=== PATIENT | male | born 1965 | race Caucasian/White ===

== ENCOUNTER 2023-03-28 07:18 | Outpatient (OUT) | payer MEDICARE, MEDICAID, SELFPAY ==
--- NOTE | 2023-03-28 08:56 | CA_ITS ---
Patient: PAM TRAN Exam Date: 03/28/2023 : 1965 Gender:M Ordering : KRIS DENSON Admission #: [id number] Family : Order #: [id number] CLICK HERE TO VIEW EXAM ECHOCARDIOGRAM REPORT PROCEDURE: CA ECHO DOPPLER COMPLETE INDICATIONS: Chronic systolic heart failure COMPARISON: None. DESCRIPTION: COMPLETE ECHOCARDIOGRAM Real-time transthoracic echocardiography with 2D, M-mode, spectral and color flow Doppler performed. QUALITY: Technical quality was adequate. LEFT VENTRICLE: Normal chamber size. Mild concentric left ventricular hypertrophy. LV EF: Global left ventricular systolic function is normal. Visual estimation of left ventricular ejection fraction is 60% DIASTOLIC: Diastolic function is normal. ATRIAL SEPTUM: Inadequately seen. LEFT ATRIUM: Normal chamber size. RIGHT ATRIUM: Moderate dilatation. RIGHT VENTRICLE: Mild dilatation. Normal right ventricular systolic function. Pacer wire present. TRICUSPID VALVE: Normal mobility and thickness. No stenosis with mild regurgitation. No evidence of pulmonary hypertension. RVSP 29mmHg MITRAL VALVE: Mildly thickened with normal mobility. No evidence of mitral valve stenosis. Trivial mitral regurgitation. AORTIC VALVE: Normal trileaflet appearance. Mildly calcified aortic valve. Normal leaflet mobility. No evidence of aortic valve stenosis. No aortic regurgitation. AORTIC ROOT: Normal diameter and appearance. PULMONIC VALVE: Normal thickness and mobility. No stenosis. No regurgitation. PERICARDIUM: Anterior free space; trivial effusion versus fat pad. IVC: Collapses with inspirations. Normal size. CONCLUSION: 1. Global left ventricular systolic function is normal; visually estimated ejection fraction is 55 to 60% 2. Mild left ventricular hypertrophy 3. Diastolic function is normal 4. The right atrium is moderately dilated 5. Right ventricle appears mildly dilated with normal systolic function 6. Mild tricuspid regurgitation 7. Anterior free space; trivial effusion versus fat pad Adult Echocardiography Procedure Report Left Ventricle LVEDD (3.7 - 5.6 cm): 5.64 cm LVESD (2.2 - 4.0 cm): 3.82 cm LVIVS thickness (0.6 - 1.2 cm): 1.28 cm LVPW thickness (0.5 - 1.0 cm): 1.28 cm e': 0.16 m/s E - e': 7.24 LVOT Max Gradient: 4.97 mm[Hg] LVOT Area (cm2): 1.11 m/s Peak Velocity (LVOT): 1.11 m/s Mean Velocity (LVOT): 0.71 m/s LVOT Diameter 2.17 cm Left Atrium LA Volume Index (2D A2C): 25.60 ml/m2 Left Atrium Systolic Dimension: 3.17 cm Mitral Valve MV E to A Ratio: 1.85 Mitral Valve A-Wave Peak Velocity: 0.62 m/s Mitral Valve E-Wave Peak Velocity: 1.16 m/s Right Ventricle RV Internal Diastolic Dimension: 4.81 cm Aorta AO Root Diam: 3.16 cm Ascending Ao Diam: 2.78 cm Aortic Valve AoV Area ([place]): 2.53 cm2, 2.53 cm2 AoV Area (VTI): 2.38 cm2, 2.38 cm2 Peak Velocity(Antegrade Flow): 1.63 m/s Peak Gradient(Antegrade Flow): 10.57 mm[Hg] Mean Velocity(Antegrade Flow): 1.07 m/s Mean Gradient(Antegrade Flow): 5.40 mm[Hg] Velocity Time Integral: 31.72 cm Tricuspid Valve Peak Velocity (Regurgitant Flow): 2.42 m/s, 2.48 m/s, 2.54 m/s Pulmonic Valve Mean Gradient: 2.62 mm[Hg] Mean Velocity: 0.74 m/s Peak Velocity: 1.15 m/s, 1.24 m/s Peak Gradient: 6.16 mm[Hg], 5.31 mm[Hg] Right Atrium Right Atrium Systolic Pressure: 60.86 ml, 60.86 ml Dictated by: Kaiser Watson M.D. on 03/28/2023 at 12:58 Approved by: Kaiser Watson M.D. on 03/28/2023 at 13:02
== END 2023-03-28 07:19 | disposition home or self-care (01) ==
LOC: CARD 07:23
PROVIDERS: PCP Family Medicine; Visit Provider Internal Medicine Cardiovascular Disease
DX: I50.22 Chronic systolic (congestive) heart failure (principal); I07.1 Rheumatic tricuspid insufficiency
CPT/HCPCS: 93306

== ENCOUNTER 2023-12-17 14:00 | Outpatient (OUT) | payer MEDICARE, MEDICAID, SELFPAY ==
--- NOTE | 2023-12-17 14:06 | CA_ITS ---
Patient Name: PAM TRAN MR#: [id number] : 1965 Exam Date: 12/17/2023 Ordering Doctor: KRIS DENSON M.D. ECHOCARDIOGRAM REPORT PROCEDURE: CA ECHO DOPPLER COMPLETE INDICATIONS: Abnormal EKG COMPARISON: None. DESCRIPTION: COMPLETE ECHOCARDIOGRAM Real-time transthoracic echocardiography with 2D, M-mode, spectral and color flow Doppler performed. QUALITY: Technical quality was good. LEFT VENTRICLE: Normal chamber size. Mild to moderate concentric hypertrophy. Global left ventricular systolic function is normal. LV EF: Estimated left ventricular ejection fraction is 60% DIASTOLIC: Normal diastolic function. ATRIAL SEPTUM: LEFT ATRIUM: Normal chamber size. RIGHT ATRIUM: Mild dilatation. RIGHT VENTRICLE: Mild dilatation. Normal right ventricular systolic function. Pacer wire present. TRICUSPID VALVE: Normal mobility and thickness. No stenosis with trivial regurgitation. No evidence of pulmonary hypertension. RVSP 26 mmHg MITRAL VALVE: Normal mobility and thickness. No evidence of mitral valve stenosis. There is no mitral annular calcification. Trivial mitral regurgitation. AORTIC VALVE: Normal trileaflet appearance. Thickened aortic valve. Normal leaflet mobility. No evidence of aortic valve stenosis. No aortic regurgitation. AORTIC ROOT: Normal diameter and appearance. PULMONIC VALVE: Normal thickness and mobility. No stenosis. PERICARDIUM: No evidence of pericardial effusion. IVC: Collapses with inspirations. Normal size. PLEURA: CONCLUSION: 1. Mild to moderate concentric left ventricular hypertrophy with normal systolic function. LVEF is estimated at 60%. 2. Normal diastolic function. 3. Mild right ventricular dilatation with normal systolic function. 4. Mildly dilated right atrium. 5. No significant valvular dysfunction. 6. Normal right-sided pressures. Adult Echocardiography Procedure Report Left Ventricle LVEDD (3.7 - 5.6 cm): 5.15 cm LVESD (2.2 - 4.0 cm): 3.27 cm LVIVS thickness (0.6 - 1.2 cm): 1.24 cm LVPW thickness (0.5 - 1.0 cm): 1.46 cm e': 0.16 m/s E - e': 4.94 LVOT Max Gradient: 2.92 mm[Hg] LVOT Area (cm2): 0.85 m/s Peak Velocity (LVOT): 0.85 m/s Mean Velocity (LVOT): 0.58 m/s LVOT Diameter 1.97 cm Left Ventricular Ejection Fraction: 60 % Left Atrium LA Volume Index (2D A2C): 20.15 ml/m2 Left Atrium Systolic Dimension: 3.36 cm Mitral Valve MV E to A Ratio: 1.44 Mitral Valve A-Wave Peak Velocity: 0.55 m/s Mitral Valve E-Wave Peak Velocity: 0.80 m/s Right Ventricle RV Internal Diastolic Dimension: 4.69 cm Aorta AO Root Diam: 3.28 cm Ascending Ao Diam: 2.87 cm Aortic Valve AoV Area ([place]): 2.13 cm2, 2.13 cm2 AoV Area (VTI): 2.04 cm2, 2.04 cm2 Peak Velocity(Antegrade Flow): 1.22 m/s Peak Gradient(Antegrade Flow): 5.99 mm[Hg] Mean Velocity(Antegrade Flow): 0.83 m/s Mean Gradient(Antegrade Flow): 3.22 mm[Hg] Velocity Time Integral: 26.76 cm Tricuspid Valve Peak Velocity (Regurgitant Flow): 2.30 m/s, 2.38 m/s, 2.33 m/s Pulmonic Valve Mean Gradient: 1.99 mm[Hg], 2.43 mm[Hg] Mean Velocity: 0.66 m/s, 0.72 m/s Peak Velocity: 1.03 m/s Peak Gradient: 3.47 mm[Hg], 5.06 mm[Hg] Right Atrium Right Atrium Systolic Pressure: 102.74 ml, 102.74 ml Dictated by: James Tapia M.D. on 12/19/2023 at 13:07 Approved by: James Tapia M.D. on 12/19/2023 at 13:11
== END 2023-12-17 14:01 | disposition home or self-care (01) ==
LOC: CARD 14:00
PROVIDERS: PCP Family Medicine; Visit Provider Internal Medicine Cardiovascular Disease
DX: R94.31 Abnormal electrocardiogram [ECG] [EKG] (principal)
CPT/HCPCS: 93306

== ENCOUNTER 2024-04-21 10:18 | Outpatient (OUT) | payer MEDICARE, MEDICAID, SELFPAY ==
--- OUTSIDE RECORDS SUMMARY | 2024-04-21 10:24 | XMS_ITS | CCD ---
Author Organization [facility] Care Team Providers Care Inspector Finishing Name Role Phone PHYSICIAN, DEFAULT Unavailable Unavailable PHYSICIAN, DEFAULT Unavailable Unavailable ANJALI CELINA Unavailable Unavailable ANJALI, CELINA Unavailable Unavailable RC CROCKER Unavailable Unavailable RC CROCKER Unavailable Unavailable PHYSICIAN, DEFAULT Unavailable Unavailable PHYSICIAN, DEFAULT Unavailable Unavailable RC CROCKER Unavailable Unavailable Mitra Flores Unavailable MISC, DR WARD Attending Unavailable MISC, DR WARD Admitting Unavailable JUNIOR, LUISA Attending Unavailable JUNIOR, LUISA Consulting Unavailable JUNIORMODESTA MuroLUISA Admitting Unavailable DR RC CROCKER Primary Care Unavailable NADERER, DR RC Mcneal Primary Care Unavailable ALGHOTHANI, MOHAMAD Admitting Unavailable ALGHOTHANI, MOHAMAD Attending Unavailable ALGHOTHANI, MOHAMAD Consulting Unavailable ALGHOTHANI, MOHAMAD Admitting Unavailable ALGHOTHANI, MOHAMAD Attending Unavailable Roe Almaraz Unavailable MD Rc Crocker Primary Care Provider MD Roe Almaraz Attending Provider Angella Savage Unavailable Tiesha George Unavailable MD Rc Crocker Primary Care Provider [phone] MD Roe Almaraz Attending Provider MONICA George Attending Provider RC CROCKER Primary Care Unavailable SUSANA RUIZ Attending Unavailable SUSANA RUIZ Attending Unavailable SUSANA RUIZ Referring Unavailable RC CROCKER Primary Care Unavailable SUSANA RUIZ Attending Unavailable SUSANA RUIZ Referring Unavailable RC CROCKER Primary Care Unavailable SUSANA RUIZ Attending Unavailable SUSANA RUIZ Referring Unavailable RC CROCKER Primary Care Unavailable LASHON Mahan Attending Provider [phone] Roe Almaraz Admitting Unavailable Rc Crocker Primary Care Unavailable Roe Almaraz Attending Unavailable Zahida Mahan Attending Unavailable Zahida Mahan Admitting Unavailable Tiesha George Attending Unavailable Tiesha George Admitting Unavailable KENYATTA BALDERAS Attending Unavailable KRIS ARIZMENDI Attending Unavailable KRIS ARIZMENDI Attending Unavailable XAVIER ROLAND Attending Unavailable XAVIER ROLAND Attending Unavailable XAVIER ROLAND Attending Unavailable RC CROCKER Attending Unavailable Unavailable Unavailable Unavailable Allergies Allergy Classification Reported Allergen(s) Allergy Type Date of Onset Reaction(s) Facility (7 sources) Penicillins; Translations: [PENICILLINS] Drug allergy (disorder) 7 [facility], Fainting [facility] Repository (1 source) No Known Allergies; Translations: [No Known Allergies] Propensity to adverse reactions (disorder) [facility] Repository (8 sources) Penicillin G Drug Allergy 4 Unknown, Unknown Reaction [facility] (1 source) Penicillin Drug Allergy 2 [facility] (1 source) Allergies Reconciled Propensity to adverse reactions Unknown [facility] Other (1 source) Penicillin Drug Allergy 4 [facility] Repository (1 source) Penicillins Drug allergy (disorder) 4 [facility] Medications Current Medications Medication Drug Class(es) Dates Sig (Normalized) Sig (Original) acetaminophen 500 mg oral tablet (3 sources) Start: 06-04-2023 take 500 mg by mouth every six hours Acetaminophen Active 500 MG PO Q6H June 04, 2023 1:00am acetaminophen 325 mg / HYDROcodone bitartrate 5 mg oral tablet (10 sources) Opioid Agonist Start: 06-04-2023 take 1 tablet by mouth every six hours Hydrocodone-Acetami nophen ([place]) 5-325 mg Tablet Active 1 TAB PO Q6H June 04, 2023 1:00am Start: 07-19-2022 take 1 tablet by sheryl th four times daily as needed HYDROcodone-Acetaminophen 5-325 MG HYDROcodone-acetaminophen 5-325mg, 1 (one) Tablet four times daily, as needed # 60, 07/19/2022, No Refill. Active Oral four times daily, as needed for 15 Jul, Active Start: 01-07-2020 End: 06-04-2023 take 1 tablet by mouth every eight hours Hydrocodone-Acetaminophen ([place]) 5-325 mg tablet Discontinued 1 TAB PO Q8H 30 January 07, 2020 June 04, 2023 8:30am amiodarone hydrochloride 200 mg oral tablet (16 sources) Antiarrhythmic Start: 06-04-2022 Amiodarone HCl 200MG Amiodarone HCl( 200MG Oral 1 two times daily ) Active -Hx Entry Oral two times daily for 0 *Pick strength-form from [facility] Away for eRX* May, Active Start: 12-31-2019 take 200 mg by mouth once daily Amiodarone Active 200 MG PO Daily December 31, 2019 9:00am Start: 09-16-2019 End: 12-31-2019 take 200 mg by mouth twice daily Amiodarone Discontinued 200 MG PO Twice daily 60 September 16, 2019 1:00am December 31, 2019 9:00am apixaban 5 mg oral tablet (10 sources) Factor Xa Inhibitor Start: 06-04-2022 take 1 tablet by mouth twice daily Apixaban (Eliquis) 5 mg tablet Active 5 MG PO Twice daily June 04, 2023 1:00am Start: 09-16-2019 End: 10-20-2019 take 1 tablet by mouth twice daily Apixaban (Eliquis) 5 mg Tablet Discontinued 5 MG PO Twice daily 60 September 16, 2019 1:00am October 20, 2019 9:49am aspirin 81 mg delayed release oral tablet (12 sources) Platelet Aggregation Inhibitor, Nonsteroidal Anti-inflammatory Drug Start: 08-31-2019 take 1 tablet by mouth once daily Aspirin (Aspir-Low) 81 mg Tablet,Delayed Release (Dr/Ec) Active 81 MG PO Daily August 31, 2019 1:00am take 1 tablet by mouth once jacy y Aspir-Low 81 MG 1 tablet Orally Once a day for 30 day(s) Active atorvastatin 40 mg oral tablet (3 sources) HMG-CoA Reductase Inhibitor Start: 06-04-2023 take 40 mg by mouth once daily Atorvastatin Active 40 MG PO Daily June 04, 2023 1:00am Blood Glucose Test (3 sources) Start: 07-23-2022 Blood Glucose Test Blood Glucose Test , 3 Strip daily # 100, 07/23/2022, Ref. x11. Active miscellaneous daily for 0 Dx: DM II E11.29 Jul, Active ciprofloxacin 2 mg/ml otic solution (5 sources) Quinolone Antimicrobial Start: 01-05-2022 Ciprofloxacin HCl 0.2 % 1-2 drops into affected ear Otic every 12 hrs for 7 day(s) Dec, Active cyclobenzaprine hydrochloride 10 mg oral tablet (3 sources) Muscle Relaxant Start: 09-29-2019 take 1 tablet by mouth three times daily as needed Cyclobenzaprine HCl 10MG Cyclobenzaprine HCl 10MG, 1 (one) Tablet three times daily, as needed # 30, 09/29/2019, Ref. x1. Active Oral three times daily, as needed for 0 *Pick strength-form from Options Away for eRX* Sep, Active docusate sodium 100 mg oral tablet (3 sources) Start: 06-04-2023 take 100 mg by mouth once daily Docusate Sodium Active 100 MG PO Daily June 04, 2023 1:00am doxycycline hyclate 100 mg oral capsule (2 sources) Tetracycline-class Drug Start: 03-23-2024 take 100 mg by mouth twice daily Doxycycline Hyclate Active 100 MG PO Twice daily 03 05March 23, 2024 12:00am Start: 07-19-2023 take 1 tablet by sheryl th every twelve hours Doxycycline Hyclate 100 MG 1 tablet Orally Twice a day for 10 day(s) Jul, Active Ergocalciferol (7 sources) Provitamin D2 Compound Start: 06-04-2022 Ergocal ciferol 1.25 MG(64148 UT) Ergocalciferol( 1.25 MG(45078 UT) Oral 1 weekly ) Active -Hx Entry Oral weekly for 0 *Pick strength-form from Options Away for eRX* May, Active Start: 08-31-2019 End: 09-27-2019 take 1 tablet by mouth every week Ergocalciferol (Vitamin D2) Discontinued 1 TAB PO every week August 31, 2019 12:00am September 27, 2019 8:49am Start: 08-31-2019 End: 09-27-2019 take 1 tablet by mouth every week Ergocalciferol (Vitamin D2) Discontinued 1 TAB PO every week August 31, 2019 1:00am September 27, 2019 9:49am ferrous sulfate (7 sources) Start: 06-04-2022 Ferrous Sulfat e 324 (65 Fe)MG Ferrous Sulfate( 324 (65 Fe)MG Oral 1 daily ) Active -Hx Entry Oral daily for 0 *Pick strength-form from Options Away for eRX* May, Active Start: 09-16-2019 End: 09-27-2019 take 324 mg by mouth once daily Ferrous Sulfate Discontinued 324 MG PO Daily September 16, 2019 1:00am September 27, 2019 9:49am gabapentin 100 mg oral capsule (6 sources) Anti-epileptic Agent Start: 04-25-2022 take 100 mg by mouth once daily Gabapentin Active 100 MG PO Daily June 04, 2023 1:00am Insulin Nph And Regular Human (10 sources) Insulin Start: 08-31-2019 Insulin Nph An d Regular Human (Novolin 70-30 Flexpen U-100) 100 unit/mL (70-30) Insulin Pen Active 30 UNIT SUBCUT Every morning August 31, 2019 1:00am Start: 08-31-2019 Insulin Nph An d Regular Human (Novolin 70-30 Flexpen U-100) 100 unit/mL (70-30) Insulin Pen Active 30 UNIT SUBCUT Every morning August 31, 2019 12:00am Start: 08-31-2019 Insulin Nph An d Regular Human (Novolin 70-30 Flexpen U-100) 100 unit/mL (70-30) Insulin Pen Active 50 UNIT SUBCUT Twice daily August 31, 2019 1:00am NovoLIN 70/30 Re liOn (70-30) 100 UNIT/ML 30 units Subcutaneous once a day Active NovoLIN 70/30 Re liOn (70-30) 100 UNIT/ML 85 units Subcutaneous bid Active Iron (6 sources) Start: 06-04-2022 take 18 mg by mouth once daily Iron 18MG Iron( 18MG Oral daily ) Active -Hx Entry Oral daily for 0 *Pick strength-form from Options Away for eRX* May, Active Start: 08-31-2019 End: 09-27-2019 take 65 mg by mouth once daily Iron Discontinued 65 MG PO Daily August 31, 2019 12:00am September 27, 2019 8:49am Start: 08-31-2019 End: 09-27-2019 take 65 mg by mouth once daily Iron Discontinued 65 MG PO Daily August 31, 2019 1:00am September 27, 2019 9:49am midodrine hydrochloride 10 mg oral tablet (7 sources) alpha-Adrenergic Agonist Start: 06-04-2023 take 10 mg by mouth once daily Midodrine Active 10 MG PO Daily June 04, 2023 1:00am Midodrine HCl 5 MG USE DIRECTED ON DIALYSIS DAYS NEEDED FOR 14 DAYS for 14 Active NovoLIN 70/30 U-100 Insulin 100unit/mL (7 (2 sources) Start: 04-25-2022 NovoLIN 70/30 U-100 Insulin 100unit/mL (7 NovoLIN 70/30 U-100 Insulin 100unit/mL (7, 70 Unit two times daily # 2, 04/25/2022, Ref. x5. Active subcutaneous two times daily for 0 *Reorder from Options Away for eRx and Interaction Alerts* Apr, Active omeprazole 40 mg delayed release oral capsule (6 sources) Proton Pump Inhibitor Start: 07-05-2022 take 40 mg by mouth once daily Omeprazole Active 40 MG PO Daily June 04, 2023 1:00am 1 ml paricalcitol 0.005 mg/ml injection (3 sources) Vitamin D3 Analog Start: 06-04-2023 take 5 ug intravenously three times weekly Paricalcitol (Zemplar) 5 mcg/mL Solution Active 3 MCG IV 3 Times a week June 04, 2023 1:00am pioglitazone 30 mg oral tablet (20 sources) Peroxisome Proliferator Receptor alpha Agonist, Peroxisome Proliferator Receptor gamma Agonist, Thiazolidinedione Start: 08-31-2019 End: 08-31-2019 take 1 tablet by mouth once daily Pioglitazone (Actos) 30 mg Tablet Active 30 MG PO Daily August 31, 2019 1:00am take 1 tablet by sheryl th every twenty-four hours Pioglitazone HCl 15 MG 1 tablet Orally Once a day Active Precision Xtra Monitor (2 sources) Start: 06-12-2022 Precision Xtra Monitor Precision Xtra Monitor , 1 (one) each three times daily # 1, 06/12/2022, No Refill. Active miscellaneous three times daily for 0 29 May, 2022 Active sertraline 100 mg oral tablet (12 sources) Serotonin Reuptake Inhibitor Start: 07-16-2022 take 1 tablet by mouth once daily sertraline 100mg sertraline 100mg, 1 (one) Tablet daily # 30, 07/16/2022, Ref. x5. Active oral daily for 0 *Reorder from Options Away for eRx and Interaction Alerts* Jul, Active Start: 08-31-2019 take 100 mg by mouth once jacy y Sertraline Active 100 MG PO Daily August 31, 2019 1:00am sevelamer hydrochloride 800 mg oral tablet (4 sources) Phosphate Binder Start: 12-31-2019 take 1600 mg by mouth three times daily at mealtime Sevelamer Hcl Active 1600 MG PO THREE TIMES DAILY WITH MEALS December 31, 2019 12:00am Triamcinolone (2 sources) Corticosteroid Start: 06-19-2022 Triamcinolone Acetonide 0.5% triamcinolone acetonide 0.5%, 1 (one) application three times daily # 60, 06/19/2022, No Refill. Active topical three times daily for 0 *Pick strength-form from Options Away for eRX* Jun, Active Completed/Discontinued Medications Medication Drug Class(es) Dates Sig (Normalized) Sig (Original) amLODIPine 10 mg oral tablet (14 sources) Dihydropyridine Calcium Channel Mike Start: 10-27-2019 End: 06-04-2023 take 10 mg by mouth once daily Amlodipine Discontinued 10 MG PO Daily October 27, 2019 12:00am June 04, 2023 8:33am Start: 08-31-2019 End: 09-16-2019 take 10 mg by mouth once daily Amlodipine Discontinued 10 MG PO Daily August 31, 2019 1:00am September 16, 2019 2:25pm amoxicillin 875 mg / clavulanate 125 mg oral tablet (4 sources) Penicillin-class Antibacterial Start: 09-16-2019 End: 10-20-2019 take 1 tablet by mouth twice daily Amoxicillin-Pot Clavulanate (Augmentin) 875-125 mg tablet Discontinued 1 TAB PO Twice daily September 16, 2019 1:00am October 20, 2019 9:49am calcium acetate 667 mg oral capsule (10 sources) Start: 10-27-2019 End: 06-04-2023 take 2 capsules by mouth once daily Calcium Acetate(Phosphat Bind) Discontinued 2 CAP PO Daily October 27, 2019 12:00am June 04, 2023 8:33am take 2 tablets by mouth every ei ght hours Calcium Acetate 667 MG 2 tablets with meals Orally Three times a day Active clindamycin 0.01 mg/mg topical gel (4 sources) Lincosamide Antibacterial Start: 12-31-2019 End: 09-21-2021 Clindamycin Phosphate Discontinued 1 APPLIC TOPICAL .w/each dressing 60 December 31, 2019 12:00am September 21, 2021 12:26pm to be used w/dressing changes, bring to next appt furosemide 40 mg oral tablet (12 sources) Loop Diuretic Start: 08-31-2019 End: 06-04-2023 take 40 mg by mouth twice daily Furosemide Discontinued 40 MG PO Twice daily August 31, 2019 1:00am June 04, 2023 8:33am 24 hr isosorbide mononitrate 60 mg extended release oral tablet (12 sources) Nitrate Vasodilator Start: 08-31-2019 End: 06-04-2023 take 60 mg by mouth once daily Isosorbide Mononitrate Discontinued 60 MG PO Daily August 31, 2019 1:00am June 04, 2023 8:33am lisinopril 40 mg oral tablet (4 sources) Angiotensin Converting Enzyme Inhibitor Start: 08-31-2019 End: 08-31-2019 Lisinopril Discontinued TABLET August 31, 2019 1:00am August 31, 2019 7:02pm metoclopramide 10 mg oral tablet (3 sources) Dopamine-2 Receptor Antagonist Start: 06-04-2023 End: 03-23-2024 take 10 mg by mouth three times daily Metoclopramide Hcl Discontinued 10 MG PO Three times daily June 04, 2023 1:00am March 23, 2024 12:53pm 24 hr metoprolol succinate 25 mg extended release oral tablet (20 sources) beta-Adrenergic Mike Start: 06-04-2022 End: 03-23-2024 take 25 mg by mouth once daily Metoprolol Succinate Discontinued 25 MG PO Daily June 04, 2023 1:00am March 23, 2024 12:51pm Start: 11-19-2019 End: 11-19-2019 take 1 mg by mouth once daily Metoprolol Succinate Dis continued MG PO Daily November 19, 2019 6:39am November 19, 2019 6:39am Start: 11-19-2019 End: 06-04-2023 take 100 mg by mouth once daily Metoprolol Succinate Discontinued 100 MG PO Daily November 19, 2019 12:00am June 04, 2023 8:29am Start: 09-16-2019 End: 11-19-2019 take 25 mg by mouth once daily Metoprolol Succinate Di scontinued 25 MG PO Daily September 16, 2019 1:00am November 19, 2019 6:39am Start: 08-31-2019 End: 10-27-2019 take 100 mg by mouth once daily Metoprolol Succinate Discontinued 100 MG PO Daily August 31, 2019 1:00am October 27, 2019 10:56am Start: 11-07-2017 take 1 tablet by sheryl th once daily Metoprolol Succinate ER 100MG Metoprolol Succinate ER 100MG, 1 (one) Tablet daily # 90, 11/07/2017, Ref. x3. Active Oral daily for 0 *Pick strength-form from Options Away for eRX* Oct, Active nystatin 100 unt/mg topical powder (4 sources) Polyene Antifungal Start: 12-23-2019 End: 06-04-2023 Nystatin Discontinued 1 APPLIC TOPICAL Twice daily 60 14 December 23, 2019 12:00am June 04, 2023 8:33am apply to groin areas as discussed ondansetron 4 mg oral tablet (3 sources) Serotonin-3 Receptor Antagonist Start: 06-04-2023 End: 06-04-2023 take 1 tablet by mouth every eight hours Ondansetron Hcl (Zofran) 4 mg Tablet Discontinued 4 MG PO Q8H June 04, 2023 1:00am June 04, 2023 12:40pm promethazine hydrochloride 25 mg oral tablet (4 sources) Phenothiazine Start: 09-27-2019 End: 11-19-2019 take 25 mg by mouth every eight hours Promethazine Discontinued 25 MG PO Q8H September 27, 2019 12:00am November 19, 2019 6:39am simvastatin 40 mg oral tablet (12 sources) HMG-CoA Reductase Inhibitor Start: 01-09-2018 End: 11-21-2023 take 40 mg by mouth once daily Simvastatin Discontinued 40 MG PO Daily August 31, 2019 1:00am June 04, 2023 8:28am spironolactone 25 mg oral tablet (8 sources) Aldosterone Antagonist Start: 08-31-2019 End: 09-16-2019 Spironolactone Discontinued TABLET August 31, 2019 1:00am August 31, 2019 5:03pm sulfamethoxazole 800 mg / trimethoprim 160 mg oral tablet (4 sources) Dihydrofolate Reductase Inhibitor Antibacterial, Sulfonamide Antimicrobial Start: 12-08-2019 End: 12-31-2019 take 1 tablet by mouth every twelve hours Sulfamethoxazole-Tr imethoprim Discontinued 1 TAB PO Q12H 20 December 08, 2019 12:00am December 31, 2019 8:16am Problems Active Problems Problem Classification Problem Date Documented Date Episodic/Chronic Acute and unspecified renal failure (8 sources) Injury of kidney; Translations: [Acute kidney failure, unspecified] 09-01-2019 Episodic Allergic reactions (5 sources) Inflammatory dermatosis; Translations: [Dermatitis, unspecified] 03-23-2024 Episodic Cardiac dysrhythmias (13 sources) Paroxysmal atrial fibrillation; Translations: [Paroxysmal atrial fibrillation] Onset: 2 Chronic Chronic kidney disease (20 sources) Chronic kidney disease, unspecified; Translations: [Chronic kidney disease stage 4] Onset: 7 09-27-2019 Chronic Complication of device; implant or graft (6 sources) Mechanical complication of arteriovenous surgical fistula; Translations: [Other mechanical complication of surgically created arteriovenous fistula, initial encounter] 09-21-2021 Episodic Complications of surgical procedures or medical care (4 sources) Non-healing surgical wound; Translations: [Other complications of procedures, not elsewhere classified, initial encounter] 01-29-2020 Episodic Conduction disorders (1 source) Presence of cardiac pacemaker; Translations: [PRESENCE OF CARDIAC PACEMAKER] Onset: 7 Chronic Congestive heart failure; nonhypertensive (10 sources) Heart failure, unspecified; Translations: [Chronic systolic (congestive) heart failure] Onset: 7 Chronic Coronary atherosclerosis and other heart disease (6 sources) Atherosclerotic heart disease of [place] coronary artery without angina pectoris; Translations: [Atherosclerosis of coronary artery without angina pectoris] Onset: 7 Chronic Deficiency and other anemia (8 sources) Iron deficiency anemia; Translations: [Iron deficiency anemia, unspecified] 03-23-2024 Episodic Diabetes mellitus with complications (17 sources) Type 2 diabetes mellitus with diabetic chronic kidney disease; Translations: [Type 2 diabetes mellitus] Onset: 7 09-07-2019 Chronic Diabetes mellitus without complication (4 sources) Type 2 diabetes mellitus; Translations: [Type 2 diabetes mellitus without complications] 10-20-2019 Chronic Diseases of white blood cells (4 sources) Leukocytosis; Translations: [Elevated white blood cell count, unspecified] 09-06-2019 Chronic Disorders of lipid metabolism (8 sources) Hyperlipidemia, unspecified; Translations: [Hyperlipidemia] Onset: 7 03-23-2024 Chronic Esophageal disorders (5 sources) Gastroesophageal reflux disease without esophagitis; Translations: [Gastro-esophageal reflux disease without esophagitis] 03-23-2024 Chronic Essential hypertension (9 sources) Hypertensive disorder; Translations: [Essential (primary) hypertension] Onset: 3 09-07-2019 Chronic Fever of unknown origin (1 source) Fever, unspecified; Translations: [Fever, unspecified] Onset: 4 Episodic Fluid and electrolyte disorders (12 sources) Dialysis disequilibrium syndrome; Translations: [Other disorders of electrolyte and fluid balance, not elsewhere classified] 01-15-2020 Episodic Gout and other crystal arthropathies (6 sources) 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; Translations: [Chronic gout due to renal impairment, unspecified site, without tophus (tophi)] Chronic Hypertension with complications and secondary hypertension (17 sources) Hypertensive heart and chronic kidney disease with heart failure and stage 1 through stage 4 chronic kidney disease, or unspecified chronic kidney disease; Translations: [Hypertensive renal disease] Onset: 7 09-07-2019 Chronic Inflammatory conditions of male genital organs (3 sources) Inflammation of scrotum; Translations: [Inflammatory disorders of scrotum] Episodic Malaise and fatigue (2 sources) Other fatigue; Translations: [Weakness] Onset: 7 Episodic Mood disorders (5 sources) Moderate recurrent major depression; Translations: [Major depressive disorder, recurrent, moderate] 03-23-2024 Chronic Nausea and vomiting (7 sources) Nausea and vomiting; Translations: [Nausea with vomiting, unspecified] Onset: 4 09-27-2019 Episodic Other aftercare (5 sources) Long-term current use of drug therapy; Translations: [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] 03-23-2024 Episodic Other aftercare (1 source) Encounter for surgical aftercare following surgery on the circulatory system Episodic Other circulatory disease (4 sources) History of hypotension; Translations: [Personal history of other diseases of the circulatory system] 01-15-2020 Episodic Other connective tissue disease (4 sources) Thigh pain; Translations: [Pain in left thigh] 09-05-2019 Episodic Other diseases of kidney and ureters (8 sources) Secondary hyperparathyroidism; Translations: [Secondary hyperparathyroidism of renal origin] 03-23-2024 Chronic Other gastrointestinal disorders (7 sources) Diarrhea; Translations: [Diarrhea, unspecified] 09-04-2019 Episodic Other injuries and conditions due to external causes (3 sources) History of fall; Translations: [History of falling] Episodic Other non-traumatic joint disorders (2 sources) Joint pain; Translations: [Pain in unspecified joint] 03-23-2024 Episodic Other nutritional; endocrine; and metabolic disorders (1 source) Obesity, unspecified; Translations: [OBESITY, UNSPECIFIED] Onset: 7 Chronic Other nutritional; endocrine; and metabolic disorders (4 sources) Obesity; Translations: [Obesity, unspecified] 12-23-2019 Chronic Other nutritional; endocrine; and metabolic disorders (5 sources) Morbid obesity; Translations: [Morbid (severe) obesity due to excess calories] 03-23-2024 Chronic Residual codes; unclassified (5 sources) Obstructive sleep apnea syndrome; Translations: [Obstructive sleep apnea (adult) (pediatric)] 03-23-2024 Chronic Skin and subcutaneous tissue infections (18 sources) Abscess of scalp; Translations: [Cutaneous abscess of head [any part, except face]] Onset: 4 09-04-2019 Episodic Spondylosis; intervertebral disc disorders; other back problems (3 sources) Sciatica; Translations: [Lumbago with sciatica, left side] Episodic Unclassified (1 source) Obstructive sleep apnea (adult) (pediatric); Translations: [OBSTRUCTIVE SLEEP APNEA (ADULT) (PEDIATRIC)] Onset: 7 Chronic Unclassified (1 source) 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; Translations: [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 HYPOGLYCEMIC DRUGS] Onset: 7 Unclassified (2 sources) Unknown / UNK(Unknown) Onset: 7 Unclassified (1 source) Atrial fibrillation and flutter ; Translations: [Atrial fibrillation/flutter] 09-12-2019 Unclassified (1 source) Cellulitis of umbilicus; Translations: [Cellulitis of umbilicus] Onset: 4 Unclassified (1 source) Other mechanical complication of surgically created arteriovenous fistula, initial encounter; Translations: [Other mechanical complication of surgically created arteriovenous fistula, initial encounter] Onset: 3 Past or Other Problems Problem Classification Problem Date Documented Date Episodic/Chronic Nonspecific chest pain (1 source) Chest pain, unspecified; Translations: [CHEST PAIN, UNSPECIFIED] Onset: 06-04-2017 Episodic Open wounds of head; neck; and trunk (1 source) Laceration without foreign body of left ear, initial encounter Onset: 01-05-2022 Resolved: 01-05-2022 Episodic Other aftercare (2 sources) group home (current) use of aspirin; Translations: [group home (current) use of insulin] Onset: 06-04-2017 Episodic Other aftercare (2 sources) Encounter for therapeutic drug level monitoring; Translations: [Encounter for therapeutic drug level monitoring] Onset: 06-13-2023 Episodic Other aftercare (2 sources) Other usp (current) drug therapy; Translations: [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] Onset: 06-13-2023 Episodic Other circulatory disease (2 sources) Orthostatic hypotension; Translations: [Orthostatic hypotension] Onset: 06-13-2023 Episodic Other lower respiratory disease (1 source) Shortness of breath; Translations: [SHORTNESS OF BREATH] Onset: 06-04-2017 Episodic Unclassified (5 sources) Abnormal result of other cardiovascular function study; Translations: [Abnormal findings on diagnostic imaging of heart and coronary circulation] Onset: 06-04-2017 Episodic Results Test Name Value Interpretation Reference Range Facility Office Visiton 03-31-2024 Follow-up visit [id number] Juanpablo Tran 1965 M Date Provider Department Center 03/31/2024 Anselmo8-[facility]IS [facility] Family History Problem Relation Age of Onset Breast cancer Mother Lung cancer Father Family Status - Relation Status Age at Mother Father Level of Service:71871 NE OFFICE/OUTPATIENT ESTABLISHED LOW MDM 20 MIN Normal [facility] Aerobic Cultureon 03-23-2024 Aerobic Culture SOURCE: UMBILICUS Heavy Normal Skin Estela 2 Days SOURCE: UMBILICUS Anaerobic Culture Results Heavy Mixed Anaerobic Estela 3 Days SOURCE: UMBILICUS Gram Stain Result 4+ Gram Positive Cocci 4+ Gram Positive Bacilli 2+ White Blood Cells PERFORMED BY: [place] [address] PATHOLOGIST BOILER WELDER DAVID CORTEZ M.D. [facility] Comment on above: Performed By: #### A BEKA, [place] #### [address] Gram Stainon 03-23-2024 Microscopic observation Gram stain Nom (Unsp spec) SOURCE: UMBILICUS Gram Stain Result 4+ Gram Positive Cocci 4+ Gram Positive Bacilli 2+ White Blood Cells PERFORMED BY: [place] [address] PATHOLOGIST BOILER WELDER DAVID CORTEZ M.D. Normal [facility] Comment on above: Performed By: #### A BEKA, GS #### [address] Office Visiton 11-29-2023 Follow-up visit [id number] Juanpablo Tran L 1965 M Date Provider Department Center 11/29/2023 KRIS ROCHA LIZZETTE [place] Family History Problem Relation Age of Onset Breast cancer Mother Lung cancer Father Family Status - Relation Status Age at Mother Father Level of Service:98283 NE OFFICE/OUTPATIENT ESTABLISHED LOW MDM 20 MIN Normal [facility] Orders Onlyon 11-29-2023 Orders Only [id number] Juanpablo Tran L 1965 M Date Provider Department Center 11/29/2023 STAN DAVIS LIZZETTE Gaspar Family History Problem Relation Age of Onset Breast cancer Mother Lung cancer Father Family Status - Relation Status Age at Mother Father Normal [facility] BLOOD CULTUREon 07-23-2023 Bacteria identified Aer cx Nom (Bld) SPECIMEN NOTES SUBOPTIMAL VOLUME OF BLOOD COLLECTED, RESULTS MAY BE AFFECTED. CULTURE RESULTS NO GROWTH 5 DAYS Normal [facility] Comment on above: Performed By: #### 1 4979-9, PINR, CBCA, 46766-4, 94275-9, 3040-3, 79943-5, CMP #### [facility] ([id number]) [address] [place] [address] 63770 Bacteria identified Aer cx Nom (Bld) CULTURE RESULTS NO GROWTH 5 DAYS Normal [facility] CBC AND AUTO DIFFon 07-23-19 24 ABSOLUTE BASOPHIL 0.1 X10E9/L Normal 0.0-0.2 [facility] Comment on above: Performed By: #### 1 4979-9, PINR, CBCA, 48485-6, 83644-7, 3040-3, 50044-4, CMP #### [facility] ([id number]) [address] [place] [address] [place] [address] ABSOLUTE NEUTROPHIL 10.3 X10E9/L High 1.5-6.6 [facility] Comment on above: Performed By: #### 1 4979-9, PINR, CBCA, 59209-4, 67883-9, 3040-3, 99038-2, CMP #### [facility] ([id number]) [address] [place] [address] 25196 Basophils/100 WBC (Bld) 0.5 % Normal [facility] Comment on above: Performed By: #### 1 4979-9, PINR, CBCA, 95097-0, 29275-0, 3040-3, 47676-7, CMP #### [facility] ([id number]) [address] [place] [address] 29188 Eosinophils (Bld) [#/Vol] 0.0 10*3/uL Normal 0.0-0.[address] [facility] Comment on above: Performed By: #### 1 4979-9, PINR, CBCA, 81834-9, 38396-0, 3040-3, 32822-6, CMP #### [facility] ([id number]) [address] [place] [address] 52530 Eosinophils/100 WBC (Bld) 0.1 % Normal [facility] Comment on above: Performed By: #### 1 4979-9, PINR, CBCA, 56608-6, 23041-6, 3040-3, 99225-6, CMP #### [facility] ([id number]) [address] [place] [address] 62445 Erythrocyte distribution width (RBC) [Ratio] 14.3 % Normal 11.5-15.[address] [facility] Comment on above: Performed By: #### 1 4979-9, PINR, CBCA, 35338-8, 22033-6, 3040-3, 26914-7, CMP #### [facility] ([id number]) [address] [place] [address] 14035 Hematocrit (Bld) [Volume fraction] 31.1 % Low 39-[address] [facility] Comment on above: Performed By: #### 1 4979-9, PINR, CBCA, 95186-4, 76193-4, 3040-3, 84365-5, CMP #### [facility] ([id number]) [address] [place] [address] 91265 Hemoglobin (Bld) [Mass/Vol] 10.3 g/dL Low 13.0-17.[address] [facility] Comment on above: Performed By: #### 1 4979-9, PINR, CBCA, 16408-9, 51544-0, 3040-3, 29672-3, CMP #### [facility] ([id number]) [address] [place] [address] 18244 Lymphocytes (Bld) [#/Vol] 0.4 10*3/uL Low 1.0-3.[address] [facility] Comment on above: Performed By: #### 1 4979-9, PINR, CBCA, 27388-1, 26362-3, 3040-3, 84512-6, CMP #### [facility] ([id number]) [address] [place] [address] 71274 Lymphocytes/100 WBC (Bld) 3.8 % Normal [facility] Comment on above: Performed By: #### 1 4979-9, PINR, CBCA, 01041-7, 17880-5, 3040-3, 41928-1, CMP #### [facility] ([id number]) [address] [place] [address] 13197 MCH (RBC) [Entitic mass] 33.2 pg Normal 27-[address] [facility] Comment on above: Performed By: #### 1 4979-9, PINR, CBCA, 18325-0, 32077-7, 3040-3, 39659-5, CMP #### [facility] ([id number]) [address] [place] [address] 30919 MCHC (RBC) [Mass/Vol] 33.2 g/dL Normal 32-36 [facility] Comment on above: Performed By: #### 1 4979-9, PINR, CBCA, 42785-1, 62030-6, 3040-3, 48134-1, CMP #### [facility] ([id number]) [address] [place] [address] 81920 MCV (RBC) [Entitic vol] 100 fL Normal 80-[address] [facility] Comment on above: Performed By: #### 1 4979-9, PINR, CBCA, 18862-5, 35717-6, 3040-3, 78636-2, CMP #### [facility] ([id number]) [address] [place] [address] 36925 Monocytes (Bld) [#/Vol] 0.8 10*3/uL Normal 0-0.[address] [facility] Comment on above: Performed By: #### 1 4979-9, PINR, CBCA, 24572-6, 54937-2, 3040-3, 46309-8, CMP #### [facility] ([id number]) [address] [place] [address] 10125 Monocytes/100 WBC (Bld) 6.5 % Normal [facility] Comment on above: Performed By: #### 1 4979-9, PINR, CBCA, 61141-0, 28520-6, 3040-3, 71200-2, CMP #### [facility] ([id number]) [address] [place] [address] 84682 Neutrophils/100 WBC (Bld) 89.1 % Normal [facility] Comment on above: Performed By: #### 1 4979-9, PINR, CBCA, 31133-9, 49189-5, 3040-3, 44975-0, CMP #### [facility] ([id number]) [address] [place] [address] 74888 Platelet mean volume (Bld) [Entitic vol] 10.7 fL Normal 7-[address] [facility] Comment on above: Performed By: #### 1 4979-9, PINR, CBCA, 53232-2, 58312-1, 3040-3, 76398-4, CMP #### [facility] ([id number]) [address] [place] [address] 65475 Platelets (Bld) [#/Vol] 129 10*3/uL Low 150-[address] [facility] Comment on above: Performed By: #### 1 4979-9, PINR, CBCA, 63058-4, 11809-5, 3040-3, 87542-1, CMP #### [facility] ([id number]) [address] [place] [address] 24153 RBC COUNT 3.10 X10E12/L Low 4.10-5.[address] [facility] Comment on above: Performed By: #### 1 4979-9, PINR, CBCA, 01370-8, 92703-7, 3040-3, 32392-6, CMP #### [facility] ([id number]) [address] [place] [address] 70938 WBC (Bld) [#/Vol] 11.6 10*3/uL High 4.0-11.0 [facility] Comment on above: Performed By: #### 1 4979-9, PINR, CBCA, 53139-7, 93118-2, 3040-3, 10232-4, CMP #### [facility] ([id number]) [address] [place] [address] 47096 COMPREHENSIVE METABOLIC PANE Nick 07-23-2023 Albumin [Mass/Vol] 3.7 g/dL Normal 3.2-5.3 [facility] Comment on above: Performed By: #### 1 4979-9, PINR, CBCA, 41613-0, 05514-3, 3040-3, 90318-2, CMP #### [facility] ([id number]) [address] [place] [address] 76681 ALP [Catalytic activity/Vol] 66 U/L Normal 39-[address] [facility] Comment on above: Performed By: #### 1 4979-9, PINR, CBCA, 39848-8, 13517-5, 3040-3, 45087-4, CMP #### [facility] ([id number]) [address] [place] [address] 20011 ALT [Catalytic activity/Vol] 23 U/L Normal 0-[address] [facility] Comment on above: Performed By: #### 1 4979-9, PINR, CBCA, 65164-8, 89530-2, 3040-3, 64774-0, CMP #### [facility] ([id number]) [address] [place] [address] 54882 Anion gap [Moles/Vol] 13 mmol/L Normal 5-15 [facility] Comment on above: Performed By: #### 1 4979-9, PINR, CBCA, 03521-9, 76650-2, 3040-3, 66188-1, CMP #### [facility] ([id number]) [address] [place] [address] 18020 AST [Catalytic activity/Vol] 31 U/L Normal 0-[address] [facility] Comment on above: Performed By: #### 1 4979-9, PINR, CBCA, 49401-8, 55993-6, 3040-3, 33660-0, CMP #### [facility] ([id number]) [address] [place] [address] 29259 Bilirubin [Mass/Vol] 1.0 mg/dL Normal 0.3-1.2 [facility] Comment on above: Performed By: #### 1 4979-9, PINR, CBCA, 26725-8, 54466-1, 3040-3, 69684-9, CMP #### [facility] ([id number]) [address] [place] [address] 49175 Calcium [Mass/Vol] 9.0 mg/dL Normal 8.5-10.5 [facility] Comment on above: Performed By: #### 1 4979-9, PINR, CBCA, 20500-9, 27662-6, 3040-3, 59923-8, CMP #### [facility] ([id number]) [address] [place] [address] 76943 Chloride [Moles/Vol] 91 mmol/L Low 98-109 [facility] Comment on above: Performed By: #### 1 4979-9, PINR, CBCA, 66371-5, 01878-2, 3040-3, 44864-5, CMP #### [facility] ([id number]) [address] [place] [address] 04250 CO2 [Moles/Vol] 28 mmol/L Normal 22-[address] [facility] Comment on above: Performed By: #### 1 4979-9, PINR, CBCA, 12270-4, 75492-4, 3040-3, 45967-4, CMP #### [facility] ([id number]) [address] [place] [address] 24153 Creatinine [Mass/Vol] 6.47 mg/dL High 0.70-1.20 [facility] Comment on above: Result Comment: METH OD TRACEABLE TO IDMS STANDARD Performed By: #### 1 4979-9, PINR, CBCA, 78023-9, 56263-4, 3040-3, 74451-6, CMP #### [facility] ([id number]) [address] [place] [address] 23497 GFR/1.73 sq M.predicted among non-blacks MDRD (S/P/Bld) [Vol rate/Area] 9 mL/min/{1.73_m2} Low >[address] [facility] Comment on above: Result Comment: Reported eGFR is based on the CKD-EPI 2020 equation that does not use a race coefficient. Performed By: #### 1 4979-9, PINR, CBCA, 16100-4, 47076-4, 3040-3, 95798-1, CMP #### [facility] ([id number]) [address] [place] [address] 94621 Glucose [Mass/Vol] 239 mg/dL High 65-99 [facility] Comment on above: Performed By: #### 1 4979-9, PINR, CBCA, 45579-3, 25437-0, 3040-3, 64829-3, CMP #### [facility] ([id number]) [address] [place] [address] 25592 Potassium [Moles/Vol] 4.0 mmol/L Normal 3.5-5.0 [facility] Comment on above: Performed By: #### 1 4979-9, PINR, CBCA, 94534-9, 18932-7, 3040-3, 54849-2, CMP #### [facility] ([id number]) [address] [place] [address] 05395 Protein [Mass/Vol] 7.9 g/dL Normal 6.0-8.0 [facility] Comment on above: Performed By: #### 1 4979-9, PINR, CBCA, 51219-2, 74050-1, 3040-3, 69718-8, CMP #### [facility] ([id number]) [address] [place] [address] 32796 Sodium [Moles/Vol] 132 mmol/L Low 134-146 [facility] Comment on above: Performed By: #### 1 4979-9, PINR, CBCA, 61176-2, 66559-5, 3040-3, 35306-6, CMP #### [facility] ([id number]) [address] [place] [address] 59495 Urea nitrogen [Mass/Vol] 34 mg/dL High 5-[address] 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 All CT scans at this facility use dose modulation, iterative reconstruction, and/or weight based dosing when appropriate to reduce radiation dose to as low as reasonably achievable. COMPARISON: CT dated 07/31/2022 FINDINGS: Multiple gallstones. Given the lack of intravenous contrast, no gross abnormality seen in the liver, spleen, adrenal glands, or pancreas. No free fluid or dilated bowel loops. The kidneys are atrophic. No hydronephrosis. Small umbilical hernia containing fat. Diffuse vascular calcifications. IMPRESSION: * Multiple gallstones. * Diffuse vascular calcifications. * Small umbilical hernia containing fat. * No CT findings to explain acute nonlocalized abdominal pain. Finalized by Elizabeth Vann MD on 07/23/2023 2:28 PM Normal [facility] LIPASEon 07-23-2023 Lipase [Catalytic activity/Vol] 30 U/L Normal 17-[address] [facility] Comment on above: Performed By: #### 1 4979-9, PINR, CBCA, 12486-2, 26516-4, 3040-3, 14908-5, CMP #### [facility] ([id number]) [address] [place] [address] 09564 Lactate (P jose) [Moles/Vol]o n 07-23-2023 Lactate [Moles/Vol] 1.2 mmol/L Normal 0.4-2.0 [facility] Comment on above: Performed By: #### 1 4979-9, PINR, CBCA, 83313-0, 46430-1, 3040-3, 27163-5, CMP #### [facility] ([id number]) [address] [place] [address] 09646 LACTATE W/REFLEX 2.1 mmol/L High 0.4-2.0 [facility] Comment on above: Performed By: #### 1 4979-9, PINR, CBCA, 75977-7, 81250-0, 3040-3, 67459-7, CMP #### [facility] ([id number]) [address] [place] [address] 34347 MAGNESIUMon 07-23-2023 Magnesium [Mass/Vol] 1.6 mg/dL Low 1.8-2.6 [facility] Comment on above: Performed By: #### 1 4979-9, PINR, CBCA, 11601-3, 34347-2, 3040-3, 36902-0, CMP #### [facility] ([id number]) [address] [place] [address], [place] [address] PROTIME AND INRon 07-23-2023 INR Coag (PPP) [Relative time] 1.6 {INR} High 0.8-1.[address] [facility] Comment on above: Performed By: #### 1 4979-9, PINR, CBCA, 23099-5, 25893-3, 3040-3, 24864-8, CMP #### [facility] ([id number]) [address] [place] [address], [place] [address] PT Coag (PPP) [Time] 18.8 s High 9.8-13.2 [facility] Comment on above: Result Comment: NEW REFERENCE RANGE Performed By: #### 1 4979-9, PINR, CBCA, 92943-8, 99733-5, 3040-3, 38854-0, CMP #### [facility] ([id number]) [address] [place] [address] 80938 SARS/FLU A+B/RSV by NAAT/Mol ecularon 07-23-2023 SARS/FLU A+B/RSV by NAAT/Molecular FLU A PCR Negative (qualifier value) FLU B PCR Negative (qualifier value) RSV by PCR Negative (qualifier value) SARS CoV 2 Not detected (qualifier value) NOTE The Xpert Xpress SARS-CoV-2/Flu/RSV Plus test is a rapid, multiplexed real-time RT-PCR test intended for the simultaneous qualitative detection and differentiation of SARS-CoV-2, influenza A, influenza B and respiratory syncytial virus (RSV) viral RNA from individuals suspected of respiratory viral infection consistent with COVID-19 by their healthcare provider. This test has not been validated in asymptomatic patients. The Xpert Xpress SARS-CoV-2 test is intended for use by qualified and trained operators who are performing tests using either GeneXpert DX or GeneXPathDrugomics systems and is limited to laboratories that meet the CLIA requirements to perform high and moderate complexity tests. The Xpert Xpress SARS-CoV-2/Flu/RSV Plus is only for use under the Food and Drug Administration's Emergency Use Authorization. Results are for the simultaneous detection and differentiation of SARS-CoV-2, influenza A, influenza B and RSV nucleic acids in clinical specimens. SARS-CoV-2, influenza A, influenza B and RSV RNA identified by this test are generally detectable in upper respiratory samples during the acute phase of infection. Positive results are indicative of the presence of the identified virus, but do not rule out bacterial infection or co-infection with other pathogens not detected by this test. Clinical correlation with patient history and other diagnostic information is necessary to determine patient infection status. The agent detected may not be the definite cause of disease. Negative results do not preclude SARS-CoV-2, influenza A, influenza B and RSV infection and should not be used as the sole basis for treatment or other patient management decisions. Negative results must be combined with clinical observations, patient history and epidemiological information. An Invalid result may occur with specimen-associated inhibition unable to be resolved with specimen repeat. Fact Sheet for Healthcare Providers: https://www.fda.gov/media/ 2162/download Fact Sheet for Patients: https://www.fda.gov/media/2165/download Normal [facility] Comment on above: Performed By: #### C OVFLR #### [facility] ([id number]) [address] [place] [address] 92412 TROPONIN Ion 07-23-2023 Troponin I.cardiac [Mass/Vol] 0.03 ng/mL Normal 0.00-0.[address] [facility] Comment on above: Performed By: #### 1 4979-9, PINR, CBCA, 55381-0, 60371-7, 3040-3, 57719-4, CMP #### [facility] ([id number]) [address] [place] [address] 49914 US ABDOMEN LMTDon 07-23-2023 US ABDOMEN LMTD US ABDOMEN LMTD ABDOMEN LIMITED ULTRASOUND HISTORY: Fever, gallstones COMPARISON: CT same day FINDINGS: Pancreas: Visualized portions of the pancreatic head and body are unremarkable. Visualized portions of liver are homogenous in echotexture without focal lesion. No intrahepatic biliary dilatation. Layering gallstones, no wall thickening or adjacent fluid. Common duct measures 2 mm, within normal limits for patient's provided age. No visualized ascites. IMPRESSION: 1. Gallstones without evidence of cholecystitis. Finalized by Yamil Cho MD on 07/23/2023 3:12 PM Normal [facility] XR CHEST 1 VWon 07-23-2023 XR CHEST 1 VW XR CHEST 1 VW Portable chest: HISTORY: Cough. Single view of the chest was obtained. Cardiac and mediastinal contours are stable. No consolidation or effusion. No pneumothorax is seen. The osseous structures appear intact. IMPRESSION: No acute findings Finalized by Stefano Magaña MD on 07/23/2023 3:29 PM Normal [facility] aPTT Coag (PPP) [Time]on aPTT Coag (Bld) [Time] 33 s Normal 26-[address] [facility] Comment on above: Result Comment: NEW REFERENCE RANGE Performed By: #### 1 4979-9, PINR, CBCA, 01528-7, 79485-8, 3040-3, 33844-2, CMP #### [facility] ([id number]) [address] [place] [address], [place] [address] Aerobic Cultureon 07-19-2023 Aerobic Culture CELLULITIS OF UMBILI CUS ORGANISM: Corynebacterium amycolatum (O:CORAMY) Comments Organism Not Routinely Tested for Susceptibilities Quantity of Growth Moderate Growth CELLULITIS OF UMBILICUS ORGANISM: Prevotella timonensis (O:PRETIM) Comments Sent to [facility] for Sensitivity Testing Quantity of Growth Light Growth Please see scanned report located in the Laboratory/Scanned Reports section of the EMR. CELLULITIS OF UMBILICUS Gram Stain Result 1+ Epithelial Cells 4+ Gram Positive Cocci 4+ Gram Negative Bacilli 2+ Gram Positive Diplococci PERFORMED BY: [address] [address] PATHOLOGIST BOILER WELDER DAVID CORTEZ M.D. Normal [facility] Comment on above: Performed By: #### A BEKA, GS #### [address] [address] [facility] Gram Stainon 07-19-2023 Microscopic observation Gram stain Nom (Unsp spec) CELLULITIS OF UMBILICUS Gram Stain Result 1+ Epithelial Cells 4+ Gram Positive Cocci 4+ Gram Negative Bacilli 2+ Gram Positive Diplococci PERFORMED BY: [address] [address] PATHOLOGIST BOILER WELDER DAVID CORTEZ M.D. Normal [facility] Comment on above: Performed By: #### A BEKA, GS #### [address] [address] [facility] Office Visiton 06-13-2023 Follow-up visit [id number] Juanpablo Tran 1965 M Date Provider Department Center 06/13/2023 KENYATTA ROGER LIZZETTE [facility] Family History Problem Relation Age of Onset Breast cancer Mother Lung cancer Father Family Status - Relation Status Age at Mother Father Level of Service:80650 NE OFFICE/OUTPATIENT ESTABLISHED MOD MDM 30-39 MIN Normal [facility] Alanine aminotransferase [En zymatic activity/volume] in Serum or PlasmaOrdered By: Roe Almaraz on 06-04-2023 ALT [Catalytic activity/Vol] 24 U/L Normal 7-52 [facility] Comment on above: Performed By: #### C MP, CBC #### [facility] [address] [place] [address] [place] Albumin [Mass/volume] in Ser um or Plasma by Bromocresol green (BCG) dye binding methoOrdered By: Roe Almaraz on 06-04-2023 Albumin BCG dye [Mass/Vol] 4.0 g/dL 3.5-5.7 [facility] Alkaline phosphatase [Enzyma tic activity/volume] in Serum or PlasmaOrdered By: Roe Almaraz on 06-04-2023 ALP [Catalytic activity/Vol] 77 U/L Normal 34-104 [facility] Comment on above: Performed By: #### C MP, CBC #### [address] Aspartate aminotransferase [ Enzymatic activity/volume] in Serum or PlasmaOrdered By: Roe Almaraz on 06-04-2023 AST [Catalytic activity/Vol] 25 U/L Normal 13-39 [facility] Comment on above: Performed By: #### C MP, CBC #### [address] Automated basophil %Ordered By: Roe Almaraz on 06-04-2023 Basophils/100 WBC (Bld) 1.1 % Normal . [facility] Comment on above: Performed By: #### C MP, CBC #### [address] Automated basophil countOrde red By: Roe Almaraz on 06-04-2023 Basophils (Bld) [#/Vol] 0.1 10*3/uL Normal 0.0-0.2 [facility] Comment on above: Result Comment: PERF ORMED BY: [place] [address] PATHOLOGIST BOILER WELDER DAVID CORTEZ M.D. Performed By: #### C MP, CBC #### [address] Automated blood monocyte cou ntOrdered By: Roe Almaraz on 06-04-2023 Monocytes (Bld) [#/Vol] 0.7 10*3/uL Normal 0.0-0.8 [facility] Comment on above: Performed By: #### C MP, CBC #### [address] Automated eosinophil %Ordere d By: Roe Almaraz on 06-04-2023 Eosinophils/100 WBC (Bld) 5.5 % Normal . [facility] Comment on above: Performed By: #### C MP, CBC #### [place] [id number] [place] Automated eosinophil countOr dered By: Roe Almaraz on 06-04-2023 Eosinophils (Bld) [#/Vol] 0.5 10*3/uL High 0.0-0.45 [facility] Comment on above: Performed By: #### C MP, CBC #### [address] Automated monocyte %Ordered By: Roe Almraaz on 06-04-2023 Monocytes/100 WBC (Bld) 7.3 % Normal . [facility] Comment on above: Performed By: #### C MP, CBC #### [address] Automated neutrophil %Ordere d By: Roe Almaraz on 06-04-2023 Neutrophils/100 WBC (Bld) 69.1 % Normal . [facility] Comment on above: Performed By: #### C MP, CBC #### [address] Bilirubin.total [Mass/volume ] in Serum or PlasmaOrdered By: Roe Almaraz on 06-04-2023 Bilirubin [Mass/Vol] 0.6 mg/dL Normal 0.3-1.0 [facility] Comment on above: Performed By: #### C MP, CBC #### [address] Calcium [Mass/volume] in Ser um or PlasmaOrdered By: Roe Almaraz on 06-04-2023 Calcium [Mass/Vol] 9.8 mg/dL Normal 8.6-10.3 [facility] Comment on above: Performed By: #### C MP, CBC #### [address] Capillary blood glucose krysta urement by glucometer (mass/volume)Ordered By: Roe Almaraz on 06-04-2023 Glucose [Mass/Vol] 163 mg/dL Normal [facility] Comment on above: Random Glucose Refer ence Range is dependent on time and content of last meal. Glucose of more than 200 mg/dL in a nonstressed, ambulatory subject supports the diagnosis of Diabetes Mellitus. Result Comment: [facility] Glucose Reference Range is dependent on time and content of last meal. Glucose of more than 200 mg/dL in a nonstressed, ambulatory subject supports the diagnosis of Diabetes Mellitus. Performed By: #### G TSERING #### Point of Care testing , Carbon dioxide, total [Moles /volume] in Serum or PlasmaOrdered By: Roe Almaraz on 06-04-2023 CO2 [Moles/Vol] 30.6 mmol/L Normal 21.0-31.0 [facility] Comment on above: Performed By: #### C MP, CBC #### [facility] [address] [place] [address] Chloride [Moles/volume] in S marino or PlasmaOrdered By: Roe Almarza on 06-04-2023 Chloride [Moles/Vol] 93 mmol/L Low 98-107 [facility] Comment on above: Performed By: #### C MP, CBC #### [facility] [address] [place] [address] Complete Blood Count Auto Di ffon 06-04-2023 Mean Corpuscular HGB Conc 33.0 g/dL Normal 32.5-35.6 [facility] Comment on above: Performed By: #### C MP, CBC #### [address] NRBC% 0.1 /100{WBC} Normal 0-0.5 [facility] Comment on above: Performed By: #### C MP, CBC #### [facility] [address] [place] [address] Comprehensive Metabolic Pane nick 06-04-2023 Albumin [Mass/Vol] 4.0 g/dL Normal 3.5-5.7 [facility] Comment on above: Performed By: #### C MP, CBC #### [address] Creatinine Clr Calc Pharmacy 18.31 Normal [facility] Comment on above: Result Comment: PERF ORMED BY: [address] [place] [address] PATHOLOGIST BOILER WELDER DAVID CORTEZ M.D. Performed By: #### C MP, CBC #### [address] GFR/1.73 sq M.predicted MDRD (S/P/Bld) [Vol rate/Area] 10.200 mL/min/{1.73_m2} Normal [facility] Comment on above: Performed By: #### C MP, CBC #### [address] Creatinine [Mass/volume] in Serum or PlasmaOrdered By: Roe Almaraz on 06-04-2023 Creatinine [Mass/Vol] 5.95 mg/dL High 0.70-1.30 [facility] Comment on above: Performed By: #### C MP, CBC #### [address] ECG 12 lead ECGon 06-04-2023 ECG 12 lead ECG [facility] [place] [address] [place] [address] Electrocardiograph Report Signed Patient: Pam Tran MR#: [id number] : 1965 Acct:[id number] Age/Sex: 58 / M ADM Date: 06/04/23 Loc: Room: Type: [facility] Attending Dr: Roe Almaraz MD Ordering Provider: Roe Almaraz MD Date of Service: 06/04/23 ECG/ECG 12 lead ECG: Pre-op Copies to: Test Reason : Blood Pressure : / mmHG Vent. Rate : 065 BPM Atrial Rate : 065 BPM P-R Int : 214 ms QRS Dur : 154 ms QT Int : 462 ms P-R-T Axes : 004 -55 020 degrees QTc Int : 480 ms Sinus rhythm with sinus arrhythmia with 1st degree AV block Right bundle branch block Possible Lateral infarct , age undetermined Inferior infarct , age undetermined Abnormal ECG When compared with ECG of 15-OCT-2019 09:10, Significant changes have occurred Confirmed by ORQUIDEA QUINTERO DO ([id number]) on 06/04/2023 6:54:30 PM Referred By: Electronically Signed By:ORQUIDEA QUINTERO DO Transcribed By: MUS Signed By Orquidea Quinetro DO 06/04 1854 Normal [facility] Erythrocyte distribution wid th [Ratio] by Automated countOrdered By: Roe Almaraz on 06-04-2023 Erythrocyte distribution width (RBC) [Ratio] 14.3 % Normal 12.0-14.8 [facility] Comment on above: Performed By: #### C MP, CBC #### [place] [address] [place] Erythrocytes [#/volume] in B lood by Automated countOrdered By: Roe Almaraz on 06-04-2023 RBC (Bld) [#/Vol] 3.41 10*6/uL Low 3.90-5.60 [facility] Comment on above: Performed By: #### C MP, CBC #### [address] Glucose Poct Glucometerson 1 08-04-2022 Commemt1 Glu2: Cleaned Meter Normal [facility] Comment on above: Result Comment: PERF ORMED BY: [place] [id number] PATHOLOGIST BOILER WELDER DAVID CORTEZ M.D. Performed By: #### G LULS #### Point of Care testing , Glucose [Mass/volume] in Ser um or PlasmaOrdered By: Roe Almaraz on 06-04-2023 Glucose [Mass/Vol] 188 mg/dL High 70-100 [facility] Comment on above: ADA recommended refe rence rangeRandom Glucose Reference Range is dependent on time and content of last meal. Glucose of more than 200 mg/dL in a nonstressed, ambulatory subject supports the diagnosis of Diabetes Mellitus. Result Comment: [facility] Glucose Reference Range is dependent on time and content of last meal. Glucose of more than 200 mg/dL in a nonstressed, ambulatory subject supports the diagnosis of Diabetes Mellitus. ADA recommended reference range Performed By: #### C MP, CBC #### [address] Hematocrit [Volume Fraction] of Blood by Automated countOrdered By: Roe Almaraz on 06-04-2023 Hematocrit (Bld) [Volume fraction] 34.4 % Low 38.8-50.0 [facility] Comment on above: Performed By: #### C MP, CBC #### [address] Hemoglobin [Mass/volume] in BloodOrdered By: Roe Almaraz on 06-04-2023 Hemoglobin (Bld) [Mass/Vol] 11.4 g/dL Low 13.0-17.0 [facility] Comment on above: Performed By: #### C JHONNY, CBC #### [address] Nick 06-04-2023 L -------- -------- Specimen: [id number] Received: 06/05/23 Status: PONCHO [place] Num: [id number] Spec Type: Surgical Subm Dr: Roe Almaraz MD Tissues: A Aneurysm (RT ARM) Procedures: AMINA, Gross/Micro L3 -------- Age/ Patient Sex Location Account Attending Physician -------- Pam Tran Deejay 58/M IR [id number] Roe Almaraz MD -------- SPEC NUM: [id number] RECD: 06/05/23 STATUS: PONCHO SEVILLA NUM: [id number] [facility]: 06/04/23 [facility] DR: Roe Almaraz MD ENTERED: 06/05/[address]: SOREN TYPE: Surgical DEPT: S ORDERED: HE, Gross/Micro L3 ORDERED: HE, Gross/Micro L3 Pathological Diagnosis Aneurysmal vascular plaque, right arm, revision excision: - Severe chronic and complicated AV fistula with apparent diffuse hyalinization and sclerosis of the plaque wall, a significant focus of Michael's intravascular hemangioma, and a large entirely occluded thrombotic clot per manifest of the markedly degenerated graft Clinical Information ESRD Gross Description Received in formalin labeled with the patient's name, date of and right arm aneurysm is a 5.5 x 3.5 x 2.7 cm aggregate of red-brown to frias-valdez rubbery to membranous tissue. Farm Management Professor sections are submitted in one cassette labeled A1. Microscopic Description One H E slide reviewed. The microscopic examination confirms the diagnosis. CPT Codes 53385 -------- -------- Specimen: [id number] Received: 06/05/23 Status: PONCHO [place] Num: [id number] Spec Type: Surgical Subm Dr: Roe Almaraz MD Tissues: A Aneurysm (RT ARM) Procedures: Julia HUYNH/Charles L3 -------- Patient: Pam Tran [id number] (Continued) -------- Signed (signature on file) Clemente Bright MD 06/07/231856 Normal [facility] Leukocytes [#/volume] correc shiva for nucleated erythrocytes in Blood by Automated counOrdered By: Roe Almaraz on 06-04-2023 WBC corrected for nucl RBC Auto (Bld) [#/Vol] 9.5 10*3/uL 4.1-10.5 [facility] Leukocytes [#/volume] in Blo od by Automated countOrdered By: Roe Almaraz on 06-04-2023 WBC (Bld) [#/Vol] 9.5 10*3/uL Normal 4.1-10.5 [facility] Comment on above: Performed By: #### C MP, CBC #### [address] Lymphocytes [#/volume] in Bl ood by Automated countOrdered By: Roe Almaraz on 06-04-2023 Lymphocytes (Bld) [#/Vol] 1.6 10*3/uL Normal 1.00-4.8 [facility] Comment on above: Performed By: #### C MP, CBC #### [address] Lymphocytes/100 leukocytes i n Blood by Automated countOrdered By: Roe Almaraz on 06-04-2023 Lymphocytes/100 WBC (Bld) 17.0 % Normal . [facility] Comment on above: Performed By: #### C MP, CBC #### [address] MCH [Entitic mass] by Automa shiva countOrdered By: Roe Almaraz on 06-04-2023 MCH (RBC) [Entitic mass] 33.3 pg Normal 27.5-35.2 [facility] Comment on above: Performed By: #### C MP, CBC #### [address] MCHC Auto (RBC) [Mass/Vol]Or dered By: Roe Almaraz on 06-04-2023 MCHC (RBC) [Mass/Vol] 33.0 g/dL 32.5-35.6 [facility] MCV [Entitic volume] by Auto mated countOrdered By: Roe Almaraz on 06-04-2023 MCV (RBC) [Entitic vol] 100.9 fL Normal 83.5-101 [facility] Comment on above: Performed By: #### C MP, CBC #### [address] Neutrophils [#/volume] in Bl ood by Automated countOrdered By: Roe Almaraz on 06-04-2023 Neutrophils (Bld) [#/Vol] 6.6 10*3/uL Normal 1.8-7.7 [facility] Comment on above: Performed By: #### C MP, CBC #### [address] No Panel InformationOrdered By: Roe Almaraz on 06-04-2023 Bedside Glucose Comment Glu2: cleaned meter [facility] Estimated GFR (CKD-EPI) 10.200 mL/Min [facility] Creatinine Clearance (Chem 18.31 [facility] Nucleated erythrocytes [Pres ence] in Blood by Automated countOrdered By: Roe Almaraz on 06-04-2023 Nucleated RBC Auto Ql (Bld) 0.1 /100{WBC} 0-0.5 [facility] Platelet mean volume [Entiti c volume] in Blood by Automated countOrdered By: Roe Almaraz on 06-04-2023 Platelet mean volume (Bld) [Entitic vol] 10.4 fL High 6.6-10.1 [facility] Comment on above: Performed By: #### C MP, CBC #### [facility] [address] [place] [address] [place] Platelets [#/volume] in Bloo d by Automated countOrdered By: Roe Almaraz on 06-04-2023 Platelets (Bld) [#/Vol] 171 10*3/uL Normal 150-450 [facility] Comment on above: Performed By: #### C MP, CBC #### [facility] [address] [place] [address] [place] Potassium [Moles/volume] in Serum or PlasmaOrdered By: Roe Almaraz on 06-04-2023 Potassium [Moles/Vol] 4.9 mmol/L Normal 3.5-5.1 [facility] Comment on above: Performed By: #### C MP, CBC #### [place] [address] [place] Protein [Mass/volume] in Ser um or PlasmaOrdered By: Roe Almaraz on 06-04-2023 Protein [Mass/Vol] 7.9 g/dL Normal 6.4-8.9 [facility] Comment on above: Performed By: #### C MP, CBC #### [address] Serum globulin measurement b y calculation (mass/volume)Ordered By: Roe Almaraz on 06-04-2023 Globulin (S) [Mass/Vol] 3.9 g/dL [facility] Comment on above: Performed By: #### C MP, CBC #### [address] Serum or plasma albumin/glob ulin mass ratioOrdered By: oRe Almaraz on 06-04-2023 Albumin/Globulin [Mass ratio] 1.0 {ratio} [facility] Comment on above: Performed By: #### C MP, CBC #### [address] Serum or plasma anion gap de terminationOrdered By: Roe Almaraz on 06-04-2023 Anion gap [Moles/Vol] 13.3 mmol/L Normal 6.0-15.0 [facility] Comment on above: Performed By: #### C MP, CBC #### [address] Sodium [Moles/volume] in Ser um or PlasmaOrdered By: Roe Almaraz on 06-04-2023 Sodium [Moles/Vol] 132 mmol/L Low 136-145 [facility] Comment on above: Performed By: #### C MP, CBC #### [address] Urea nitrogen [Mass/volume] in Serum or PlasmaOrdered By: Roe Almaraz on 06-04-2023 Urea nitrogen [Mass/Vol] 29 mg/dL High 7-25 [facility] Comment on above: Performed By: #### C MP, CBC #### [address] HEMOGLOBINon 01-19-2022 Hemoglobin (Bld) [Mass/Vol] 12.0 g/dL Critically low 14.0-18.0 [facility] Comment on above: Performed By: #### H GB #### [facility] [address] [place] [address] Dr. Shawn Bright FREE T4on 12-26-2021 Free T4 [Mass/Vol] 0.85 ng/dL Normal 0.76-1.46 [facility] Comment on above: Performed By: #### F T4 #### [facility] [address] [place] [address] Dr. Shawn Bright LIVER PROFILEon 12-26-2021 Albumin [Mass/Vol] 3.7 g/dL Normal 3.4-5.0 [facility] Comment on above: Performed By: #### L ADIA, TSH #### [facility] [address] [place] [address] Dr. Shawn Bright Albumin/Globulin [Mass ratio] 0.7 {ratio} Normal [facility] Comment on above: Performed By: #### L ADIA, TSH #### [facility] [address] [place] [address] Dr. Shawn Bright ALP [Catalytic activity/Vol] 92 U/L Normal 46-116 [facility] Comment on above: Performed By: #### L ADIA, TSH #### [facility] [address] [place] [address] Dr. Shawn Bright ALT [Catalytic activity/Vol] 27 U/L Normal 16-63 [facility] Comment on above: Performed By: #### L ADIA, TSH #### [facility] [address] [place] [address] Dr. Shawn Bright AST [Catalytic activity/Vol] 16 U/L Normal 15-37 [facility] Comment on above: Performed By: #### L ADIA, TSH #### [facility] [address] [place] [address] Dr. Shawn Bright BILI, CONJUGATED 0.2 mg/dL Normal 0.0-0.2 [facility] Comment on above: Performed By: #### L ADIA, TSH #### [facility] [address] [address] [address] Shawn Birght Bilirubin [Mass/Vol] 0.6 mg/dL Normal 0.2-1.0 [facility] Comment on above: Performed By: #### L IVER, TSH #### [facility] [address] [address] [address] Shawn Bright Globulin (S) [Mass/Vol] 5.0 g/dL Normal [facility] Comment on above: Performed By: #### L IVER, TSH #### [facility] [address] [address] [address] Shawn Bright Protein [Mass/Vol] 8.7 g/dL Critically high 6.4-8.2 [facility] Comment on above: Performed By: #### L IVER, TSH #### [facility] [address] [address] [address] Shawn Bright TSHon 12-26-2021 TSH 4.482 uIU/mL Critically high 0.358-3.74 0 [facility] Comment on above: Performed By: #### L IVER, TSH #### [facility] [address] [address] [address] Shawn Bright TSH RANGE SEE BELOW Normal [facility] Comment on above: Result Comment: <0.3 4 UIU/ml HYPERTHYROID 0.34-5.60 UIU/ml EUTHYROID >5.60 UIU/ml HYPOTHYROID Performed By: #### L IVER, TSH #### [facility] [address] [place] [address] Dr. Shawn Bright Cardiovascular Lab Reporton 06-05-2017 Cardiovascular Lab Report [facility] Patient Name: Juanpablo Tran [facility]: [id number] Physician: Celina Alba M.D.Department of Service Date: 06/04/2017Medicine Birthdate: 1965Division of Room #: CCCardiologyAdult CardiovascularServicesUnUT [facility] [place], [place] [address]Sjyfq Fax Cardiovascular Laboratory ReportCardiologist: Smith Schofield M.D., [place] CardiologyCLINICAL PRESENTATION: Juanpablo Tran is a 52-year-old male with past medicalhistory significant for hypertension; type 2 diabetes mellitus, on insulintherapy; obesity; and obstructive sleep apnea. The patient was recentlyevaluated by Dr. Schofield due to worsening shortness of breath and fatigue.He had an echocardiogram, which showed an EF of 40% to 45% with someregional wall motion abnormalities. He had a cardiac stress test, whichshowed partially reversible defect in the inferolateral and anterior wall,which could be related to artifact. After evaluation with Dr. Schofield, heis referred for right heart catheterization and coronary angiogram.FINAL IMPRESSION:1. Right heart catheterization demonstrates [id number] elevated pulmonary capillary wedge pressure with a mean wedge pressure of 26 mmHg.2. The cardiac output and cardiac index are preserved.3. The patient is hypertensive at the time of this study.4. Coronary angiogram reveals mild 2 vessel coronary artery disease, appropriate for medical therapy.PLAN:1. Medical therapy for congestive heart failure. The patient is already on beta-mike and TALIA inhibitor. After discussion with Dr. Schofield, I am adding Lasix 20 mg twice daily for treatment of decompensated congestive heart failure.2. The patient is hypertensive at the time of the study. I am adding amlodipine 5 mg daily for antihypertensive medical therapy. The patient is already on metoprolol XL and lisinopril.3. I also added spironolactone 25 mg daily for treatment of congestive heart failure and volume overload.4. I discontinued Zestoretic (lisinopril plus HCTZ) and substituted with lisinopril alone. Since the patient will be on Lasix and spironolactone for CHF, we can discontinue hydrochlorothiazide.5. The patient will follow up with Dr. Schofield in 1 to 2 weeks.6. The patient will follow up with Dr. Crocker in 1 to 2 weeks.PROCEDURES: Coronary angiogram, right heart catheterization, ultrasoundguidance for vascular access, conscious sedation 26 minutes.INDICATION: Shortness of breath, congestive heart failure, abnormalcardiac stress test, abnormal echocardiogram.DESCRIPTION OF PROCEDURE: The patient was brought to the cardiaccatheterization lab in a fasting state. Informed written consent wasobtained. He was prepped and draped in usual sterile fashion over the rightneck and right wrist. Time-out was performed. He was given Versed andfentanyl for sedation. 1% lidocaine was infiltrated over the right internaljugular vein and right radial artery. Using ultrasound guidance andmicropuncture access technique, a 6-Polish sheath was placed in the rightinternal jugular vein. Next, right heart catheterization was performed. ABerman catheter was advanced under fluoroscopic and hemodynamic monitoringto the right atrium. Pressures were obtained in the right atrium, rightventricle, pulmonary artery, and pulmonary capillary wedge position. Oxygensaturation was drawn from the pulmonary artery and the Alhaji cardiac outputand cardiac index were calculated. The Sanchez catheter was then removed.A 6-Polish Terumo Glidesheath slender was placed in the right radialartery. The radial anti-vasospasm cocktail of verapamil 5 mg andnitroglycerin 200 mcg was administered through the sheath. All catheterexchanges were made over the Luke guidewire. Catheters used were JL3.5 andJR5. Coronary angiography was performed in multiple orthogonal views usinghand injection of contrast.At this time, all catheters and wires were removed from the body. Theradial sheath was removed and a TR band was applied to obtain hemostasis.The internal jugular venous sheath was removed and manual pressure wasapplied to obtain hemostasis. There were no apparent complications.TOTAL CONSCIOUS SEDATION TIME: 26 minutes.TOTAL CONTRAST: 60 mL.TOTAL FLUOROSCOPY TIME: 4 minutes 49 seconds, 0.7 Gy.FINDINGS:HEMODYNAMICS:1. RA mean 19.2. RV 62/23.3. PA 59/30 (mean 41).4. Pulmonary capillary wedge pressure mean 26.5. AO 178/104 (MAP 138).6. Alhaji cardiac output 6.4 L/minute.7. Alhaji cardiac index 2.4 L/minute/sq m.8. AO sat 94%, PA sat 61%.CORONARY ANGIOGRAPHY:1. Left main coronary artery: Patent.2. Left main trifurcates into an LAD, ramus and a circumflex.3. Left anterior descending coronary artery. The LAD is a large vessel and is patent. The first diagonal branch has a 30% ostial stenosis and second diagonal branch has a 40% ostial stenosis.4. Ramus coronary artery. The ramus is widely patent.5. Left circumflex coronary artery. Circumflex is a moderate-sized vessel and is widely patent.6. Right coronary artery. The RCA is a large vessel and is dominant. The mid RCA has 30% stenosis. The remainder of the RCA and its branches are patent.Electronically Signed by:Celina Alba M.D. 06/05/2017 04:38 P Celina Alba M.D.Date Dict: 06/04/2017/03:53 P/Celina Alba M.D.Date Trans: 06/05/2017 12:05 P/mmoDN_JN:[id number]: Smith Schofield M.D. [address] [place] [id number] Rc Crocker M.D. [facility] [address] [place] [facility] Vital Signs Date Time Vital Sign Value Performing Clinician Facility 03-23-2024 12:47-0400 Body height 175.[address] [facility] 03-23-2024 12:47-0400 Body mass index (BMI) [Ratio] 42.8 kg/m2 [facility] 03-23-2024 12:47-0400 Body temperature 97.4 [degF] [facility] 03-23-2024 12:47-0400 Body weight 131.[address] [facility] 03-23-2024 12:47-0400 Diastolic blood pressure 64 mm[Hg] [facility] 03-23-2024 12:47-0400 Heart rate 60 /min [facility] 03-23-2024 12:47-0400 Respiratory rate 18 /min [facility] 03-23-2024 12:47-0400 SaO2% (BldA) [Mass fraction] 98 % [facility] 03-23-2024 12:47-0400 Systolic blood pressure 93 mm[Hg] [facility] 07-19-2023 12:20-0500 Body height 175.26 cm Tiesha George Other [facility] Other 07-19-2023 12:20-0500 Body mass index (BMI) [Ratio] 44.53 kg/m2 Tiesha George Other [facility] Other 07-19-2023 12:20-0500 Body temperature 98 [degF] Tiesha Doris Other [facility] Other 07-19-2023 12:20-0500 Body weight 136.81 kg Tiesha Cookmond Other [facility] Other 07-19-2023 12:20-0500 Diastolic blood pressure 63 mm[Hg] Tiesha Cookmond Other [facility] Other 07-19-2023 12:20-0500 Respiratory rate 20 /min Tiesha Cookmond Other [facility] Other 07-19-2023 12:20-0500 SaO2% (BldA) [Mass fraction] 97 % Tiesha George Other [facility] Other 07-19-2023 12:20-0500 Systolic blood pressure 120 mm[Hg] Tiesha Cookmond Other [facility] Other 06-18-2023 11:00-0500 Body height 175.26 cm Angella Savage Other [facility] Other 06-18-2023 11:00-0500 Body mass index (BMI) [Ratio] 44.3 kg/m2 Angella Savage Other [facility] Other 06-18-2023 11:00-0500 Body temperature 96.8 [degF] Angella Savage Other [facility] Other 06-18-2023 11:00-0500 Body weight 136.08 kg Angella Savage Other [facility] Other 06-18-2023 11:00-0500 Diastolic blood pressure 60 mm[Hg] Angella Savage Other [facility] Other 06-18-2023 11:00-0500 SaO2% (BldA) [Mass fraction] 98 % Angella Savage Other [facility] Other 06-18-2023 11:00-0500 Systolic blood pressure 98 mm[Hg] Angella Savage Other [facility] Other 06-04-2023 16:20-0500 Diastolic blood pressure 58 mm[Hg] MD Rc Crocker Work Phone: [facility] 06-04-2023 16:20-0500 Heart rate 64 /min MD Rc Crocker Work Phone: [facility] 06-04-2023 16:20-0500 Respiratory rate 16 /min MD Rc Crocker Work Phone: [facility] 06-04-2023 16:20-0500 SaO2% (BldA) [Mass fraction] 99 % MD Rc Crocker Work Phone: [facility] 06-04-2023 16:20-0500 Systolic blood pressure 125 mm[Hg] MD Rc Crocker Work Phone: [facility] 06-04-2023 15:35-0500 Inhaled oxygen flow rate 6 L/min MD Rc Crocker Work Phone: [facility] 06-04-2023 13:33-0500 Body height 175.26 cm MD Rc Crocker Work Phone: [facility] [facility] 06-04-2023 13:33-0500 Body mass index (BMI) [Ratio] 44.2 kg/m2 MD Rc Crocker Work Phone: [facility] 06-04-2023 13:33-0500 Body weight 136 kg MD Rc Crocker Work Phone: [facility] 06-04-2023 11:52-0500 Body temperature 98.2 [degF] MD Rc Crocker Work Phone: [facility] 02-22-2022 14:20-0400 Diastolic blood pressure 57 mm[Hg] MD Rc Crocker Work Phone: [facility] 02-22-2022 14:20-0400 Heart rate 52 /min MD Rc Crocker Work Phone: [facility] 02-22-2022 14:20-0400 Respiratory rate 16 /min MD Rc Crocker Work Phone: [facility] 02-22-2022 14:20-0400 SaO2% (BldA) [Mass fraction] 94 % MD Rc Crocker Work Phone: [facility] 02-22-2022 14:20-0400 Systolic blood pressure 120 mm[Hg] MD Rc Crocker Work Phone: [facility] 02-22-2022 13:16-0400 Body height 175.26 cm MD Rc Crocker Work Phone: [facility] 02-22-2022 13:16-0400 Body weight 145.14 kg MD Rc Crocker Work Phone: [facility] 01-05-2022 12:45-0400 Body height 175.26 cm Mitra Flores Other [employer] Other 01-05-2022 12:45-0400 Body mass index (BMI) [Ratio] 45.77 kg/m2 Mitra Flores Other [employer] Other 01-05-2022 12:45-0400 Body temperature 97.7 [degF] Mitra Flores Other [employer] Other 01-05-2022 12:45-0400 Body weight 140.62 kg Mitra Flores Other [employer] Other 01-05-2022 12:45-0400 SaO2% (BldA) [Mass fraction] 100 % Mitra Flores Other [employer] Other Encounters Encounter Date Encounter Type Care Provider Facility Start: 04-07-2024 End: 04-07-2024 ambulatory RC BOMARIA EKris Not Available Start: 03-31-2024 End: 03-31-[facility]24 [facility] Start: 03-23-2024 End: 03-23-2024 ambulatory Zahida Mahan [facility] Work Phone: Start: 03-23-2024 End: 03-23-2024 Departed Referred SECURITY AMBASSADOR Zahida Mahan Work Phone: [facility] [place] Work Phone: Start: 03-23-2024 End: 03-23-2024 ambulatory [facility] Work Phone: Start: 03-23-2024 End: 03-23-2024 Patient encounter procedure [facility] Work Phone: Start: 02-05-2024 Non-patient / Non-visit [facility] Work Phone: Start: 01-30-2024 End: 01-30-2024 ambulatory XAVIER ROLAND Not Available Start: 01-06-2024 Non-patient / Non-visit [facility] Work Phone: Start: 11-29-2023 End: 11-29-2023 ambulatory KRIS TRESAFAUSTINO [facility] Start: 10-31-2023 End: 10-31-2023 ambulatory XAVIER ROLAND Not Available Start: 08-01-2023 End: 08-01-2023 ambulatory XAVIER ROLAND Not Available Start: 07-23-2023 End: 07-24-2023 Emergency department patient visit ODESSA Deejay [facility] Start: 07-23-2023 End: 07-24-2023 Emergency department patient visit ODESSA Deejay [facility] Start: 07-19-2023 Office outpatient vi sit 15 minutes Tiesha George [facility] Start: 07-19-2023 End: 07-19-2023 ambulatory MD Rc Crocker Work Phone: [facility] Work Phone: Start: 07-19-2023 End: 07-19-2023 Departed Referred MD Rc Crocker Work Phone: [facility] [place] Work Phone: Start: 06-18-2023 End: 06-18-2023 ambulatory Angella Savage Other [employer] Other Start: 06-18-2023 Patient encounter procedure Angella Savage [facility] Vascular Surgery Start: 06-13-2023 End: 06-13-2023 ambulatory KENYATTA BALDERAS [facility] Start: 06-04-2023 End: 06-04-2023 Admission to same day surgery center MD Rc Crocker Work Phone: [facility]-Interventional Radiology Work Phone: Start: 06-04-2023 End: 06-04-2023 ambulatory Roe Almaraz Facility:[facility] Start: 05-16-2023 End: 05-16-2023 ambulatory Roe Almaraz Other [employer] Other Start: 05-16-2023 Telephone encounter Roe Almaraz [facility] Start: 06-04-2022 Adult health examination Roe Almaraz Other [employer] Other Start: 02-22-2022 End: 02-22-2022 Admission to same day surgery center MD Rc Crocker Work Phone: [facility] Start: 02-12-2022 End: 02-12-2022 ambulatory Roe Almaraz Other [employer] Other Start: 02-12-2022 Telephone encounter Roe Evangelistarosaliakris [facility] Start: 01-19-2022 End: 01-20-2022 ambulatory LUISA JUNIOR Facility:[facility] Start: 01-08-2022 End: 01-08-2022 ambulatory Mitra Flores Other [employer] Other Start: 01-08-2022 Telephone encounter Mitra Flores [facility] Start: 01-05-2022 End: 01-05-2022 ambulatory Mitra Flores Other [employer] Other Start: 01-05-2022 Office outpatient vi sit 15 minutes Mitra Flores [facility] Start: 12-26-2021 End: 12-27-[address] RC CROCKER Facility:[facility] Start: 10-19-[address] DOCTOR SIDDIQI Facility :[facility] Start: 07-14-2021 ambulatory KRIS Lay lity:[facility] Start: 08-27-2017 End: 08-28-2017 Ambulatory DEFAULT PHYSICIAN Facility:[facility] Start: 06-04-2017 End: 06-05-2017 Ambulatory CELINA ALBA Facility:[facility] Start: 05-21-2017 End: 05-22-2017 Ambulatory DEFAULT PHYSICIAN Facility:[facility] Procedures Date Procedure Procedure Detail Performing Clinician Start: 06-04-2023 Arteriovenous fistulization MD Rc Crocker Work Phone: Start: 06-04-2023 IR Fistulogram/TLA S tent (Right) MD Rc Crocker Work Phone: Start: 02-22-2022 IR Fistulogram/TLA S tent (Right) MD Rc Crocker Work Phone: Depression screening Roeguido Almaraz Other Screening for malign ant neoplasm of prostate Roe Hernandezfabian Other Plan of Treatment Date Care Activity Detail Author Start: 03-23-2024 Microscopic observat ion [Identifier] in Unspecified specimen by Gram stain [facility] Start: 03-23-2024 [facility] Start: 07-19-2023 Aerobic Culture Aerobic Culture [facility] Start: 07-19-2023 Anaerobic Culture Anaerobic Culture [facility] Start: 07-19-2023 Microscopic observat ion [Identifier] in Unspecified specimen by Gram stain Gram Stain [facility] Start: 07-19-2023 [facility] Start: 06-04-2023 End: 06-04-2023 [facility] Start: 02-22-2022 [facility] Work Phone: Bacteria identified in Unspecified specimen by Aerobe culture [facility] Bacteria identified in Unspecified specimen by Anaerobe culture [facility] Patient Education Fistulogram [facility] Work Phone: Patient referral [facility] Work Phone: Immunizations Immunization Date Immunization Notes Care Provider Fa cility 10-19-2020 COVID-19 mRNA-1273 (Maya) MD Rc Crocker Work Phone: [facility] 09-21-2020 COVID-19 mRNA-1273 (Maya) MD Rc Crocker Work Phone: [facility] Payers Date Payer Category Payer Unknown [id number] 2.16.84 [id number] 1964 Unknown [id number] 2.16.84 [id number] 1964 Unknown [id number] 2.16.84 [id number] 1964 Unknown [id number] 2.16.84 [id number] 1964 Unknown [id number] 2.16.84 [id number] 1964 Unknown [id number] 2.16.84 [id number] 1964 Unknown [id number] 2.16.84 [id number] 1964 Unknown [id number] 2.16.84 [id number] 1964 Unknown [id number] 2.16.84 [id number] 1964 Unknown [id number] 2.16.84 [id number] 1964 Unknown [id number] 2.16.84 [id number] 1964 Unknown [id number] 2.16.84 [id number] 1960 Medicaid [id number] 2. [id number] 1960 Medicare [id number] 2.1 [id number] 1960 Self-pay [id number] Medicare Medicare [id number] Unknown Unknown [id number] Unknown [id number] 2.16.8 [id number] Unknown [id number] 2.16.8 [id number] Unknown [id number] 2.16.8 [id number] Social History Date Type Detail Facility Tobacco smoking status NHIS Unknown if ever smoked [facility] Start: 1965 Sex Assigned At Male F [facility] Sex Assigned At Sex Assigned At Bir th [facility] [employer] Other Start: 02-22-2022 End: 03-23-2024 Tobacco smoking status NHIS Never smoked tobacco (finding) [facility] Medical Equipment Procedure Code Equipment Code Equipment Origin al Text Equipment Identifier Dates Fluoroscopic guidance for insertion of tunnelled dialysis catheter [id number] FDA Start: 09-14-2019 Fluoroscopic guidance for insertion of tunnelled dialysis catheter [id number] FDA Start: 09-14-2019 Fluoroscopic guidance for insertion of tunnelled dialysis catheter [id number] FDA Start: 09-14-2019 Fluoroscopic guidance for insertion of tunnelled dialysis catheter [id number] FDA Start: 09-14-2019 Creation or revision of arteriovenous fistula Arteriovenous shunt [id number] FDA Start: 01-07-2020 Creation or revision of arteriovenous fistula Synthetic vascular graft [id number] FDA Start: 06-04-2023 Start: 05-19-2018 Goals Date Patient Goal Desired Activity /State Clinical Notes 01-05-2022 to 03-31-2024 Note Date & Type Note Facility 03-31-2024 Note [facility] Note Subjective Juanpablo Tran is a 59 y.o. year old male patient being seen for 6 mo follow up PAF on Amiodarone, hypertension, CHF, CAD, ESRD on hemodialysis. Patient here for 6 mo follow up PAF, hypertension, CHF, and CAD. Still goes to dialysis 3 times a week. Has been a little dizzy the past couple days. Only gets midodrine at dialysis right now. He denies chest pain and palpitations. He does endorse some dyspnea. Denies abnormal bleeding on Eliquis. Patient Active Problem List Diagnosis Chest pain Chronic systolic heart failure ([facility]/HCC) Coronary atherosclerosis Dependence on hemodialysis ([facility]/HCC) Diabetes mellitus ([facility]/HCC) Dyslipidemia ESRD (end stage renal disease) on dialysis ([facility]) Fatigue Hypertensive disorder Necrotizing fasciitis ([facility]/HCC) Obstructive sleep apnea syndrome Paroxysmal atrial fibrillation ([facility]/HCC) Stage 4 chronic kidney disease ([facility]) Surgical wound, non healing Abnormal gait Abnormal posture Callus of foot Depression, unspecified Dermatitis associated with moisture Diabetic peripheral neuropathy ([facility]/HCC) Disorder associated with type 2 diabetes mellitus ([facility]) Gastro-esophageal reflux disease without esophagitis Generalized muscle weakness Hammer toe Hemodialysis-associated hypotension Hereditary and idiopathic neuropathy, unspecified 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 Hyperlipidemia, unspecified Onychomycosis Other abnormalities of gait and mobility Pain, unspecified Constipation due to opioid therapy Abscess of left thigh Acute renal failure ([facility]/HCC) Anemia of renal disease Dialysis AV fistula malfunction ([facility]/HCC) Dialysis disequilibrium syndrome Diarrhea DKA (diabetic ketoacidosis) ([facility]) History of hypotension Hyponatremia Left thigh pain Leukocytosis Metabolic acidosis Nausea and vomiting Obesity Scalp abscess Cellulitis, umbilical Dermatitis, unspecified Iron deficiency anemia Joint pain 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 Tran is a 56 yo patient with a past medical history including HFrEF, HTN, paroxsymal a.fib, HLD, and history of VVS s/p dual chamber PM where generator is at EOL and he's declined to have removed. HE presents to cardiology clinic for follow-up. -Continue Eliquis, amiodarone, Toprol for atrial fibrillation -Continue aspirin, statin, beta-mike for CAD - Continue current blood pressure regimen -Optimize medical management -Aggressive risk factor modification -Patient was educated on red flag symptoms. Strict return precautions were provided. Patient verbalizes understanding -Follow-up in cardiology clinic in 6 months, or sooner as needed Kris Arizmendi MD paroxysmal atrial fibrillation -[id number] = 4 - (HTN, hx HF, HTN, CAD) - On Eliquis 5mg BID. -He is on amiodarone and Toprol for rate control. Patient denies any issues with medications. hypertensive disorder Well controlled Provided elevated blood pressure: care instructions congestive heart failure Hx EF 40-45 % per echo, 55% per nuclear in 2017 - mild CAD per cath. EF normalized on Echo from 2019 ECHO 08/31/2019: EF 55-60%, no RWMA, trace MR, trace TR Currently compensated/euvolemic on exam GDMT: No ACEi/ARB/ARNI/MRA d/t ESRD and hypotension - On Toprol 25 mg Patient is Euvolemic on exam. primary cardiomyopathy see above coronary atherosclerosis mild CAD 05/2017 No anginal complaints Continue medical management with ASA, statin, BB Review of Systems Cardiovascular: Positive for dyspnea on exertion. Musculoskeletal: Positive for muscle weakness. Neurological: Positive for dizziness and light-headedness. All other systems reviewed and are negative. Objective Visit Vitals BP 95/56 (BP Location: Left arm, Patient Position: Sitting) Pulse 63 Ht 1.753 m (5' 9 ) Wt 134 kg (295 lb) SpO2 95% BMI 43.56 kg/m??? Smoking Status Never BSA 2.55 m??? Physical Exam General: Awake, alert, good spirits. NAD Pulm: Breath sounds clear to ascultation bilaterally with no wheeze, crackles or rhonchi Cards: Regular rate and rhythm, S1, S2. No S3 or S4 gallop. Murmur: none Abd: Soft, Nontender, physiologic bowel sounds are present Extr: Lower extremity edema: None. Skin: warm, dry, well perfused Neuro: A&Ox3, No gross deficits Allergies Allergies Allergen Reactions Penicillins Other Medications Current Outpatient Medications: amiodarone (Pacerone) 200 mg tablet, Take 1 tablet by mouth once daily, Disp: 90 tablet, Rfl: 3 apixaban (Eliquis) 5 mg tablet, TAKE 1 TABLET BY MOUTH IN THE MORNING AND AT BEDTIME, Disp: 180 tablet, Rf (more content not included)... [facility] 11-29-2023 Note [facility] Note Subjective Juanpablo Tran is a 58 y.o. year old male patient being seen for 6 mo follow up PAF on Amiodarone, hypertension, CHF, CAD, ESRD on hemodialysis. Patient here for 6 mo follow up PAF, hypertension, CHF, and CAD. Still goes to dialysis 3 times a week. Has been a little dizzy the past couple days. Only gets midodrine at dialysis right now. He denies chest pain and palpitations. He does endorse some dyspnea. Denies abnormal bleeding on Eliquis. Patient Active Problem List Diagnosis Chest pain Chronic systolic heart failure (CMS/HCC) Coronary atherosclerosis Dependence on hemodialysis (CMS/HCC) Diabetes mellitus (CMS/HCC) Dyslipidemia ESRD (end stage renal disease) on dialysis (CMS/HCC) Fatigue Hypertensive disorder Necrotizing fasciitis (CMS/HCC) Obstructive sleep apnea syndrome Paroxysmal atrial fibrillation ([facility]/HCC) Stage 4 chronic kidney disease ([facility]) Surgical wound, non healing Abnormal gait Abnormal posture Callus of foot Depression, unspecified Dermatitis associated with moisture Diabetic peripheral neuropathy ([facility]/HCC) Disorder associated with type 2 diabetes mellitus ([facility]/HCC) Gastro-esophageal reflux disease without esophagitis Generalized muscle weakness Hammer toe Hemodialysis-associated hypotension Hereditary and idiopathic neuropathy, unspecified Onychodystrophy 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 Tran is a 56 yo patient with a past medical history including HFrEF, HTN, paroxsymal a.fib, HLD, and history of VVS s/p dual chamber PM where generator is at EOL and he's declined to have removed. HE presents to cardiology clinic for follow-up. -Continue Eliquis, amiodarone, Toprol for atrial fibrillation -Continue aspirin, statin, beta-mike for CAD - Continue current blood pressure regimen -Optimize medical management -Aggressive risk factor modification -Patient was educated on red flag symptoms. Strict return precautions were provided. Patient verbalizes understanding -Follow-up in cardiology clinic in 6 months, or sooner as needed Kris Arizmendi MD paroxysmal atrial fibrillation -[id number] = 4 - (HTN, hx HF, HTN, CAD) - On Eliquis 5mg BID. -He is on amiodarone and Toprol for rate control. Patient denies any issues with medications. hypertensive disorder Well controlled Provided elevated blood pressure: care instructions congestive heart failure Hx EF 40-45 % per echo, 55% per nuclear in 2017 - mild CAD per cath. EF normalized on Echo from 2019 ECHO 08/31/2019: EF 55-60%, no RWMA, trace MR, trace TR Currently compensated/euvolemic on exam GDMT: No ACEi/ARB/ARNI/MRA d/t ESRD and hypotension - On Toprol 25 mg Patient is Euvolemic on exam. primary cardiomyopathy see above coronary atherosclerosis mild CAD 05/2017 No anginal complaints Continue medical management with ASA, statin, BB Review of Systems Cardiovascular: Positive for dyspnea on exertion. Musculoskeletal: Positive for muscle weakness. Neurological: Positive for dizziness and light-headedness. All other systems reviewed and are negative. Objective Visit Vitals Smoking Status Never Physical Exam General: Awake, alert, good spirits. NAD Pulm: Breath sounds clear to ascultation bilaterally with no wheeze, crackles or rhonchi Cards: Regular rate and rhythm, S1, S2. No S3 or S4 gallop. Murmur: none Abd: Soft, Nontender, physiologic bowel sounds are present Extr: Lower extremity edema: None. Skin: warm, dry, well perfused Neuro: A&Ox3, No gross deficits Allergies Allergies Allergen Reactions Penicillins Other Medications Current Outpatient Medications: amiodarone (Pacerone) 200 mg tablet, Take 1 tablet by mouth once daily, Disp: 90 tablet, Rfl: 3 apixaban (Eliquis) 5 mg tablet, Take 1 tablet (5 mg) by mouth in the morning and at bedtime., Disp: 180 tablet, Rfl: 3 aspirin 81 mg EC tablet, Take 81 mg by mouth in the morning., Disp: , Rfl: atorvastatin (Lipitor) 40 mg tablet, Take 1 tablet by mouth once daily, Disp: 90 tablet, Rfl: 3 cholecalciferol (VITAMIN D-3) 10 mcg (400 unit) tablet, 1 (one) time each day at the same time., Disp: , Rfl: docusate sodium (Colace) 100 mg capsule, TAKE 1 CAPSULE BY MOUTH EVERY 12 HOURS, Disp: , Rfl: gabapentin (Neurontin) 100 mg capsule, Take 100 mg by mouth in the morning., Disp: , Rfl: HYDROcodone-acetaminophen ([place]) 5-325 mg tablet, Take 1-2 tablets by mouth every 6 (six) hours if needed., Disp: , Rfl: insulin NPH and regular human (NovoLIN) 100 unit/mL (70-30) injection, Inject 30 Units under the s (more content not included)... [facility] 07-19-2023 Evaluation note Encounter Date Diagnosis Assessment Notes Jul, Cellulitis of umbilicus (ICD-10 - L03.316) Cellulitis: adult home care material was printed Drink plenty fluids, get plenty of rest. Continue home medications as prescribed. Take the doxycycline as prescribed until gone. Apply warm compresses to your navel area as well is the open area on your lower abdomen several times a day. You may apply Neosporin ointment to the areas as well. Take Tylenol as needed for pain. Follow-up with your family physician if no improvement in 2 to 3 days. Go to the ER for worsening symptoms or concerns Jul, Abdominal wall cellulitis (ICD-10 - L03.311) [employer] Other 12-05-2023 Evaluation note* Encounter Date Diagnosis Assessment Notes Treatment Notes Treatment Clinical Notes Jun, Hemodialysis access, AV graft (ICD-10 - Z99.2) This patient has done well after right forearm access intervention. He has good thrill and bruit throughout the graft. His surgical site has healed nicely. We did remove the sutures in the office today. We should wait a couple more weeks prior to use of this section of his access. We can start to use this section after the upcoming . He verbalizes understanding of our discussion today, agrees with this plan, denies any additional questions. He will call us with any issues or concerns. Jun, Encounter for surgical aftercare following surgery of circulatory system (ICD-10 - Z48.812) Jun, End stage renal disease (ICD-10 - N18.6) Jun, Dependence on renal dialysis (ICD-10 - Z99.2) [employer] Other 11-30-[facility] Note Subjective Juanpablo Tran is a 58 y.o. year old male patient with past medical history PAF on Amiodarone, hypertension, CHF, CAD, ESRD on hemodialysis seen in follow-up. Patient Active Problem List Diagnosis Chest pain Chronic systolic heart failure ([facility]/HCC) Coronary atherosclerosis Dependence on hemodialysis ([facility]/HCC) Diabetes mellitus ([facility]/HCC) Dyslipidemia ESRD (end stage renal disease) on dialysis ([facility]) Fatigue Hypertensive disorder Necrotizing fasciitis ([facility]/HCC) Obstructive sleep apnea syndrome Paroxysmal atrial fibrillation ([facility]/HCC) Stage 4 chronic kidney disease ([facility]) Surgical wound, non healing Abnormal gait Abnormal posture Callus of foot Depression, unspecified Dermatitis associated with moisture Diabetic peripheral neuropathy ([facility]/HCC) Disorder associated with type 2 diabetes mellitus ([facility]/HCC) Gastro-esophageal reflux disease without esophagitis Generalized muscle weakness Hammer toe Hemodialysis-associated hypotension Hereditary and idiopathic neuropathy, unspecified 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 Tran is a 56 yo patient with a past medical history including HFrEF, HTN, paroxsymal a.fib, HLD, and history of VVS s/p dual chamber PM where generator is at EOL and he's declined to have removed. Update: 09/18/2022 He was admitted to [facility] in [place] in Jul 2022 for necrotizing fascitis in the right groin s/p surgical debridement. He is now residing in a SNF for wound treatments. He reports he is doing well since discharge from a cardiac standpoint. He was started on Midodrine for orthostatic hypotension. He has a non-functional pacemaker which was placed in his 30s for syncope which he reports is no longer necessary. Update: 03/14/2023 Patient denies any cardiac complaints or concerns. Patient denies any chest pain or shortness of breath. Patient denies any lower extremity edema, orthopnea, or proximal nocturnal dyspnea. No near-syncope or syncope. No dizziness or lightheadedness. Of note: Patient mentions that he has been orthostatic at dialysis. Blood pressure was noted to drop. No near-syncope or syncope Update: 06/13/2023 Less lightheaded with reduced dose of metoprolol His groin wound is completely healed he is no longer following with infectious disease or wound clinic Clinically doing well however overall feeling low with dialysis Denies chest pain, palpitations, or significant dyspneic symptoms Review of Systems Neurological: Positive for light-headedness. All other systems reviewed and are negative. Objective Visit Vitals BP 98/61 (BP Location: Left arm, Patient Position: Standing) Pulse 70 Ht 1.765 m (5' 9.5 ) Wt (!) 137 kg (301 lb) SpO2 96% BMI 43.81 kg/m??? Smoking Status Never BSA 2.59 m??? Physical Exam General: Awake, alert, good spirits. NAD Pulm: Breath sounds clear to ascultation bilaterally with no wheeze, crackles or rhonchi Cards: Regular rate and rhythm, S1, S2. No S3 or S4 gallop. Murmur: none Abd: Soft, Nontender, physiologic bowel sounds are present Extr: Lower extremity edema: None. Skin: warm, dry, well perfused Neuro: A&Ox3, No gross deficits Allergies Allergies Allergen Reactions Penicillins Other Medications Current Outpatient Medications: amiodarone (Pacerone) 200 mg tablet, Take 1 tablet by mouth once daily, Disp: 90 tablet, Rfl: 3 apixaban (Eliquis) 5 mg tablet, Take 1 tablet (5 mg) by mouth in the morning and at bedtime., Disp: 180 tablet, Rfl: 3 aspirin 81 mg EC tablet, Take 81 mg by mouth in the morning., Disp: , Rfl: atorvastatin (Lipitor) 40 mg tablet, Take 1 tablet by mouth once daily, Disp: 90 tablet, Rfl: 2 cholecalciferol (VITAMIN D-3) 10 mcg (400 unit) tablet, 1 (one) time each day at the same time., Disp: , Rfl: docusate sodium (Colace) 100 mg capsule, TAKE 1 CAPSULE BY MOUTH EVERY 12 HOURS, Disp: , Rfl: gabapentin (Neurontin) 100 mg capsule, Take 100 mg by mouth in the morning., Disp: , Rfl: HYDROcodone-acetaminophen (Bellmont) 5-325 mg tablet, Take 1-2 tablets by mouth every 6 (six) hours if needed., Disp: , Rfl: insulin NPH and regular human (NovoLIN) 100 unit/mL (70-30) injection, Inject 30 Units under the skin., Disp: , Rfl: metoprolol succinate XL (Toprol-XL) 25 mg 24 hr tablet, Take 1 tablet (25 mg) by mouth in the morning. (Patient taking differently: Take 12.5 mg by mouth in the morning.), Disp: 90 tablet, Rfl: 3 midodrine (Proamatine) 10 mg tablet, Take 10 mg by mouth in the morning, at noon, and at bedtime., Disp: , Rfl: omeprazole (P (more content not included)...[facility] 06-13-2023 NotePatient here for 3 mo follow up chronic systolic heart failure, PAF, and orthostatic hypotension. Had echo in Mar 2023. Still denies chest pain, SOB, palpitations, and bleeding on Eliquis. Denies lightheadedness. Has not had routine amiodarone testing done yet. Review of Systems Cardiovascular: Positive for leg swelling (minimal). Skin: Positive for poor wound healing. Musculoskeletal: Positive for muscle weakness. All other systems reviewed and are negative.[facility] 01-05-2022 Evaluation note* Encounter Date Diagnosis Assessment Notes Treatment Notes Treatment Clinical Notes Dec, Laceration of left ear canal, initial encounter (ICD-10 - S01.312A) unable to find the source of the bleeding, except for the visible abrasion from the L earlobe but was not actively bleeding at time of examination. we will go ahead and prescribe an otic atb drop to cover for infection. advised pt to avoid scratching the area. reinforced proper hand hygiene when applying drops. follow up if bleeding starts up again or if new/worsening symptoms. Dec, Other Due to infec tion control protocols for COVID-19 virus, direct physical contact with patient was limited to only the absolute essential needed assessments. [employer] Other Evaluation noteNo InformationNortReg[facility] [employer] Other Evaluation note* Diagnosis Onset Date Resolution Status Dialysis AV fistula malfunction [facility] Work Phone: Evaluation note* Diagnosis Onset Date Resolution Status Cellulitis, umbilical acute [facility] Work Phone: History and physical note Author Roe Almaraz [facility] February 22, 2022 2:34pm Note Date/Time February 22, 2022 2: 34pm [facility] [address] [place] [address] Vascular Surgery H&P Signed Patient: Pam Tran MR#: [id number] : 1965 Acct:[id number] Age/Sex: 57 / M Adm Date: 2 Loc: IR Room: Type: [facility] Attending Dr: Roe Almaraz MD Copies to: MD Rc Gallego MD~ Date of Service: 02/22/2022 HPI History of Present Illness Chief complaint: Elevated venous pressures in dialysis HPI: Mr. Tran is a 57 year old male with a right forearm prosthetic graft has been having difficulties in dialysis with clotting his needles and elevated venous pressures. He comes for diagnostic fistulogram. His last intervention was 5 months ago. PMFSH Vaccinated for COVID-19?: Yes Medical History Abscess posterior scalp, left groin; excision of same 12/01. Anemia Atrial fibrillation AV fistula RIGHT FOREARM CKD (chronic kidney disease) Diabetes mellitus, type 2 Dialysis patient M-W-F, right chest dialysis cath ESRD (end stage renal disease) Hypertension Open wound of left thigh wound clinic seeing pt. Pt. reports still alot of drainage. Pacemaker Pt. reports non-functioning Surgical History History of tonsillectomy S/P dialysis catheter insertion Family History Mother Breast cancer Father Lung cancer Stroke Social History Smoking Status: Never smoker Substance Use Type: None Meds Medications and Allergies Allergies Penicillins Adverse Reaction (Verified 02/18/20 11:10) Fainting Home Medications aspirin 81 mg tablet,delayed release (Aspir-Low) 81 mg PO DAILY A-fib 08/31/19 [History Confirmed 09/21/21] furosemide 40 mg tablet 40 mg PO BID diuretic 08/31/19 [History Confirmed 09/21/21] insulin NPH-regular 70-30 U-100 insulin 100 unit/mL subcutaneous pen (Novolin 70-30 FlexPen U-100 Insulin) 50 unit subcut BID DM 08/31/19 [History Confirmed 09/21/21] isosorbide mononitrate 60 mg tablet,extended release 24 hr 60 mg PO DAILY HTN 08/31/19 [History Confirmed 09/21/21] pioglitazone 30 mg tablet (Actos) 30 mg PO DAILY DM 08/31/19 [History Confirmed 09/21/21] sertraline 50 mg tablet 100 mg PO DAILY 08/31/19 [History Confirmed 09/21/21] simvastatin 40 mg tablet 40 mg PO DAILY hyperlipidemia 08/31/19 [History Confirmed 09/21/21] amlodipine 10 mg tablet 10 mg PO DAILY HTN 10/27/19 [History Confirmed 09/21/21] calcium acetate(phosphat bind) 667 mg capsule 2 cap PO DAILY ESRD 10/27/19 [History Confirmed 09/21/21] metoprolol succinate 100 mg tablet,extended release 24 hr 100 mg PO DAILY HTN 11/19/19 [History Confirmed 09/21/21] nystatin 100,000 unit/gram topical powder 1 applic topical BID 2 weeks #60 grams12/23/19 [Rx Confirmed 09/21/21] amiodarone 200 mg tablet 200 mg PO BID A-fib 12/31/19 [History Confirmed 09/21/21] sevelamer HCl 800 mg tablet 1,600 mg PO TIDWM ESRD 12/31/19 [History Confirmed 09/21/21] hydrocodone 5 mg-acetaminophen 325 mg tablet (Bellmont) 1 tab PO Q8H PRN pain 10 days #30 tabs 01/07/20 [Rx Confirmed 09/21/21] Exam Physical Exam Vital Signs: Pulse Resp BP Pulse Ox O2 Del Method 52 L 16 120/57 L 94 L Room Air 02/22/22 14:20 02/22/22 14:20 02/22/22 14:20 02/22/22 14:20 02/22/22 14:20 Narrative: Pleasant male in no acute distress. His right forearm prosthetic graft is mildly pulsatile but still has a good thrill. Puncture sites show some deterioration with pseudoaneurysmal formation but no evidence of infection A&P - Vascular (1) Dialysis AV fistula malfunction: Plan: This patient will undergo diagnostic fistulogram and intervention if appropriatebased on the findings Code(s): T82.590A - Other mechanical complication of surgically created arteriovenous fistula, initial encounter Status: Acute Documented By: Roe Almaraz MD 02/22/22 143 2 Signed By: <Electronically signed by MD Roe Almaraz> 02/22/22 1434 [facility] Work Phone: [employer] [facility] Narrative - Reported* Type Description Date Medical History type II diabetes Medical History hypertension Medical History depression Medical History pacemaker at the age of 16 Medical History joint pain Medical History ESRD Medical History morbid obesity Medical History Atrial fibrillation Surgical History pacemaker Surgical History tonsillectomy Surgical History Rt arm Anticubital AVF 0 Hospitalization History syncope Hospitalization History tonsillectomy Hospitalization History pacemaker [employer] Other [facility] general Narrative - Reported* Type Description Date Medical History type II diabetes Medical History hypertension Medical History depression Medical History pacemaker at the age of 16 Medical History joint pain Medical History ESRD Medical History morbid obesity Medical History Atrial fibrillation Surgical History Problem Title : Card iac Pacemaker Insertion, Problem Status : Active, Hospitalization History syncope Hospitalization History tonsillectomy Hospitalization History pacemaker [employer] Other [facility] general Narrative - Reported* Type Description Date Medical History type II diabetes Medical History hypertension Medical History depression Medical History pacemaker at the age of 16 Medical History joint pain Medical History ESRD Medical History morbid obesity Medical History Atrial fibrillation Surgical History pacemaker Surgical History tonsillectomy Surgical History Rt arm Anticubital AVF 0 Surgical History 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 Hospitalization History syncope Hospitalization History tonsillectomy Hospitalization History pacemaker [employer] Other [facility] general Narrative - Reported* Type Description Date Medical History type II diabetes Medical History hypertension Medical History depression Medical History pacemaker at the age of 16 Medical History joint pain Medical History ESRD Medical History morbid obesity Medical History Atrial fibrillation Medical History [place]IS [facility] [place] [place] Surgical History pacemaker Surgical History tonsillectomy Surgical History Rt arm Anticubital AVF 0 Surgical History 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 Surgical History groin abcess 07/2022 Hospitalization History syncope Hospitalization History tonsillectomy Hospitalization History pacemaker Hospitalization History INFECTIONS 07/2022 [employer] Other Summary Purpose Family History No Family History Records Found Relationship Condition Age at Onset Recorded Date/T oliver Not Specified Malignant neoplasm of breast Unknown father Malignant neoplasm of lung Unknown Cerebrovascular accident (CVA) Unknown Relationship Condition Age at Onset Recorded Date/T oliver mother Malignant neoplasm of breast Unknown father Malignant neoplasm of lung Unknown Cerebrovascular accident (CVA) Unknown brother Multiple sclerosis Unknown father Unknown Malignant neoplasm Unknown Family history of lung cancer Unknown mother Malignant neoplasm Unknown Unknown Malignant neoplasm of breast Unknown sister Multiple sclerosis Unknown Advance Directives No Advanced Directives Records Found Advance Directive Response Recorded Date/ Time Advance Directives No June 6:37pm Advance Directive Response Recorded Date/ Time Advance Directives No June 5:37pm Assessments No Assessments Information AvailableNo Assessments Information AvailableNo Assessments Information Available Chief Complaint and Reason for Visit Chief Complaint ESRD Reason for Visit Dialysis AV fistula malfunction Chief Complaint pos infection in bel lybutton Reason for Visit Cellulitis, umbilica l Chief Complaint pos infection in bel lybutton Cellulitis of umbilicus Reason for Visit Cellulitis, umbilica l Additional Source Comments (unrecognized sect ion and content) No Status Records FoundNo Status Records FoundNo Status Records FoundNo Status Records FoundNo Status Records FoundNo Status Records Found INFORMATION SOURCE (unrecogn ized section and content) DATE CREATED AUTHOR 01/06/2018 [facility] DATE CREATED AUTHOR AUTHOR'S ORGANIZ ATION 01/30/2022 [facility] DATE CREATED AUTHOR AUTHOR'S ORGANIZ ATION 07/30/2023 [facility] DATE CREATED AUTHOR AUTHOR'S ORGANIZ ATION 03/29/2024 [facility] DATE CREATED AUTHOR AUTHOR'S ORGANIZ ATION 04/02/2024 [facility] DATE CREATED AUTHOR AUTHOR'S ORGANIZ ATION 04/09/2024 [facility] EPIC REASON FOR VISIT (unrecogniz ed section and content) SPOT UNDER ABDOMEN AND INSID E NAVAL POSS ABSCESS2 WK F/U FISTULAProblemsLEFT EAR BLEEDING/PAIN Care Teams (unrecognized sec tion and content) Team Status: Active Member Role Status Dates Rc Crocker MD Primary Care Provider Active Team Status: Active Member Role Status Dates Rc Crocker MD Primary Care Provider Active S tart: January 06, 2024 Dorian Rico MD Attending Provider Active Star t: January 06, 2024 Team Status: Active Member Role Status Dates Rc Crocker MD Primary Care Provider Active S tart: February 05, 2024 Akira Vaughn MD Attending Provider Active Star t: February 05, 2024 Team Status: Inactive Member Role Status Dates Rc Crocker MD Primary Care Provider Active S tart: March 23, 2024 End: March 23, 2024 Zahida Mahan APRN Attending Provider Active Start: March 23, 2024 End: March 23, 2024 Team Status: Inactive Member Role Status Dates Rc Crocker MD Primary Care Provider Active Roe Almaraz MD Attending Provider Active Team Status: Inactive Member Role Status Dates MONICA Stallings Attending Provider Active Team Status: Inactive Member Role Status Dates Zahida Mahan APRN Attending Provider Active Start: March 23, 2024 End: March 23, 2024 Goals (unrecognized section and content) Goals may be documented in a n alternate section FOR RECORDS PERTAINING TO PATIENTS WHO ARE OR HAVE BEEN ENROLLED IN A CHEMICAL DEPENDENCY/SUBSTANCEABUSE PROGRAM, SOME INFORMATION MAY BE OMITTED. This clinical summary was aggregated from multiple sources. Caution should be exercised in using it in the provision of clinical care. This summary normalizes information from multiple sources, and as a consequence, information in this document may materially change the coding, format and clinical context of patient data. In addition, data may be omitted in some cases. CLINICAL DECISIONS SHOULD BE BASED ON THE PRIMARY CLINICAL RECORDS. [facility] [email or web address] provides no warranty or guarantee of the accuracy or completeness of information in this document.
--- NOTE | 2024-04-21 10:46 | XR_ITS ---
The [address] [address] Patient Name: PAM TRAN MRN: [id number] date: 1965 Sex: M Assigned Patient Location: LAB Current Patient Location: LAB Accession/Order Number: [id number] Exam Date: 04/21/2024 10:55 Report Date: 04/21/2024 16:36 At the request of: KRIS DENSON Procedure: XR chest 2V EXAM: XR chest 2V CLINICAL INDICATION: Environmental Quality Analyst Drug Therapy COMPARISON: None TECHNIQUE: 2 views of chest performed. FINDINGS: Left chest wall cardiac device in place with intact leads overlying the right heart. Lungs: No convincing focal infiltrates. No pleural effusion or pneumothorax. Heart: Cardiac and mediastinal contours are unremarkable. No overt pulmonary vascular congestion. Osseous structures: No acute abnormalities. XR/XR chest 2V IMPRESSION: No acute cardiopulmonary process. Electronically authenticated by: INDU ZAVALA Date: 04/21/2024 16:36
[2024-04-21 12:32] LABS: Free T4 0.83 ng/dL (0.76-1.46)
[2024-04-21 13:24] LABS: Alanine Aminotransferase 28 U/L (16-63); Albumin Globulin Ratio 0.9; Albumin Level 3.6 g/dL (3.4-5.0); Alkaline Phosphatase 79 U/L (46-116); Aspartate Amino Transferase 17 U/L (15-37); Bilirubin Direct 0.2 mg/dL (0.0-0.2); Bilirubin Total 0.6 mg/dL (0.2-1.0); Globulin 3.9 g/dL; Thyroid Stimulating Hormone 5.037 uIU/mL (0.358-3.740); Total Protein 7.5 g/dL (6.4-8.2)
== END 2024-04-21 10:19 | disposition home or self-care (01) ==
LOC: LAB 10:21
PROVIDERS: PCP Family Medicine; Visit Provider Internal Medicine Cardiovascular Disease
DX: Z79.899 Other long term (current) drug therapy (principal)
CPT/HCPCS: 36415; 71046; 80076; 84439; 84443

== ENCOUNTER 2024-12-03 08:33 | Outpatient (OUT) | payer MEDICARE, MEDICAID, SELFPAY ==
--- OUTSIDE RECORDS SUMMARY | 2024-11-26 09:20 | XMS_ITS ---
Author Name Auto Generated Organization OHIP Support Name Relationship Address Phone FLO TRAN Next of Kin Unknown + FLO TRAN Next of Kin Unknown + CARLOS TRAN Next of Kin Unknown + FLO TRAN Next of Kin [address] [place] [address] Unavailable FLO TRAN Next of Kin Unknown + CARLOS TRANG Next of Kin [address] [place] [address] Unavailable [place] [address] +[phone] FLO TRAN Next of Kin [address] [place] [address] Unavailable [place] [address] +[phone] CHELSEACARLOS GONZALES Next of Kin Unknown + TOEPPEL, GLYNN Next of Kin Unknown Unavailable CHELSEA, CARLOS Next of Kin Unknown + TOEPPEL, GLYNN Next of Kin Unknown Unavailable CARLOS TRANG Next of Kin Unknown + CARLOS TRANG Next of Kin [address] [place] [address] Unavailable [place] [address] +[phone] CARLOS TRAN Next of Kin Unknown + TOEPPEL, GLYNN Next of Kin Unknown Unavailable CARLOS TRANG Next of Kin [address] [place] [address] Unavailable [place] [address] +[phone] CHELSEACARLOSG Next of Kin [address] [place] [address] Unavailable [place] [address] +[phone] CHELSEA, FLO Next of Kin [address] [place] [address] Unavailable [place] [address] +[phone] CHELSEA, FLO Next of Kin [address] [place] [address] Unavailable [place] [address] [phone] CHELSEA, CARLOS Next of Kin Unknown + TOEPPEL, GLYNN Next of Kin Unknown Unavailable CHELSEA, CARLOS Next of Kin Unknown + TOEPPEL, GLYNN Next of Kin Unknown Unavailable CHELSEA, CARLOS Next of Kin Unknown + TOEPPEL, GLYNN Next of Kin Unknown Unavailable CHELSEA, CARLOS Next of Kin Unknown + TOEPPEL, GLYNN Next of Kin Unknown Unavailable CHELSEA, CARLOS Next of Kin Unknown + TOEPPEL, GLYNN Next of Kin Unknown Unavailable CHELSEA, CARLOS Next of Kin Unknown + CHELSEA, CARLOS Next of Kin Unknown + TOEPPEL, GLYNN Next of Kin Unknown Unavailable CHELSEA, CARLOS Next of Kin Unknown + CHELSEA, CARLOS Next of Kin Unknown + CHELSEA, CARLOS Next of Kin Unknown + CHELSEA, CARLOS Next of Kin Unknown + CHELSEA, CARLOS Next of Kin Unknown + CHELSEA, CARLOS Next of Kin Unknown + CHELSEA, CARLOS Next of Kin Unknown + TOEPPEL, GLYNN Next of Kin Unknown Unavailable CHELSEA, CARLOS Next of Kin Unknown + Chelsea, Carlos Next of Kin [address] [place] [address] + CHELSEA, CARLOS Next of Kin Unknown + CHELSEA, FLO Next of Kin Unknown + Chelsea, Carlos Next of Kin [address] [place] [address] + CHELSEA, CARLOS Next of Kin Unknown + Care Team Providers Care Automobile Body Repair Chief Name Role Phone ANUPAMERER, RC Attending Unavailable XAVIER ROLAND Attending Unavailable NADERER, RC Attending Unavailable NADERER, RC Primary Care Unavailable OCTAVIANO GONZALEZ Attending Unavailable ASA CRAVEN Attending Unavailable EZRA TOBIN Referring Unavailable NADERER, RC Primary Care Unavailable JOHANNA WARNER Consulting Unavailable MONICA GARCIA Admitting Unavailable GIO ALMEIDA Consulting Unavailable ONLY), IP WOUND CARE SERVICES (INPATIENT Consult ing Unavailable FRANKLIN ESTRADA Consulting Unavailable CARDIOLOGY, [facility] Consulting Unavailable DIVISION OF INFECTIOUS DISEASE, [facility] Consulting Unavailable STEFFANIE DE GUZMAN Consulting UnavailKOBI Givens Consulting Unavailable EZRA TOBIN Referring Unavailable NADERER, RC Primary Care Unavailable MONICA GARCIA Referring Unavailable NADERER, RC Primary Care Unavailable NADERER, RC Referring Unavailable NADERER, RC Primary Care Unavailable NADERER, RC Primary Care Unavailable EZRA MALDONADO Attending Unavailable OSMAR RANGEL Referring Unavailable NADERER, RC Primary Care Unavailable NADERER, RC Primary Care Unavailable MALUSO, ROJELIO Admitting Unavailable PROVIDER, UNKNOWN Attending Unavailable ERNANDEZ, DARREN Referring Unavailable MALUSO, ROJELIO Admitting Unavailable PROVIDER, UNKNOWN Attending Unavailable ERNANDEZ, DARREN Referring Unavailable MALUSO, ROJELIO Admitting Unavailable ERNANDEZ, DARREN Referring Unavailable PROVIDER, UNKNOWN Attending Unavailable PROVIDER, UNKNOWN Admitting Unavailable PROVIDER, UNKNOWN Attending Unavailable ERNANDEZ, DARREN Referring Unavailable MALUSO, ROJELIO Admitting Unavailable PROVIDER, UNKNOWN Attending Unavailable ERNANDEZ, DARREN Referring Unavailable MALUSO, ROJELIO Admitting Unavailable ERNANDEZ, DARREN Referring Unavailable PROVIDER, UNKNOWN Attending Unavailable PROVIDER, UNKNOWN Admitting Unavailable PROVIDER, UNKNOWN Attending Unavailable JUAN MAKI Referring Unavailable PROVIDER, UNKNOWN Admitting Unavailable PROVIDER, UNKNOWN Attending Unavailable ERNANDEZ, DARREN Referring Unavailable PROVIDER, UNKNOWN Admitting Unavailable PROVIDER, UNKNOWN Attending Unavailable ERNANDEZ, DARREN Referring Unavailable PROVIDER, UNKNOWN Admitting Unavailable PROVIDER, UNKNOWN Attending Unavailable MALUSO, ROJELIO Admitting Unavailable PROVIDER, UNKNOWN Attending Unavailable ERNANDEZ, DARREN Referring Unavailable CONSULT, IP NEPHROLOGY Consulting Unavailab le REQUEST, IP SOCIAL WORK SERVICE Consulting Unavailable REQUEST, IP PHYSICAL THERAPY SERVICE Consulting Unavailable REQUEST, IP OCCUPATIONAL THERAPY SERVICE Consult ing Unavailable [phone], IP TEAM TRAUMA Consulting Unavail able CONSULT, IP CARDIOLOGY ELECTROPHYSIOLOGY (EP) Co nsulting Unavailable CONSULT, IP PSYCHIATRIC ADULT Consulting Un available CONSULT, IP ENDOCRINOLOGY Consulting Unavai lable CONSULT, IP CARDIOLOGY Consulting Unavailab le PROVIDER, UNKNOWN Admitting Unavailable PROVIDER, UNKNOWN Attending Unavailable PROVIDER, UNKNOWN Admitting Unavailable PROVIDER, UNKNOWN Attending Unavailable KAYODE BGIGS Attending Unavailable PROVIDER, UNKNOWN Admitting Unavailable MALUSO, ROJELIO Admitting Unavailable ERNANDEZ, DARREN Referring Unavailable PROVIDER, UNKNOWN Attending Unavailable MALUSO, ROJELIO Admitting Unavailable ERNANDEZ, DARREN Referring Unavailable PROVIDER, UNKNOWN Attending Unavailable MALUSO, ROJELIO Admitting Unavailable ERNANDEZ, DARREN Referring Unavailable PROVIDER, UNKNOWN Attending Unavailable MALUSO, ROJELIO Admitting Unavailable PROVIDER, UNKNOWN Attending Unavailable ERNANDEZ, DARREN Referring Unavailable MALUSO, ROJELIO Admitting Unavailable PROVIDER, UNKNOWN Attending Unavailable ERNANDEZ, DARREN Referring Unavailable MALUSO, ROJELIO Admitting Unavailable PROVIDER, UNKNOWN Attending Unavailable ERNANDEZ, DARREN Referring Unavailable MALUSO, ROJELIO Admitting Unavailable PROVIDER, UNKNOWN Attending Unavailable ERNANDEZ, DARREN Referring Unavailable Octaviano Mhaan Admitting Unavailable Octaviano Mahan Attending Unavailable NO FAMILY, PHYSICIAN Primary Care Unavailable Ernandez, Darren J Admitting Unavailable Ernandez, Darren J Attending Unavailable Sudheer Qiu Consulting Unavailable SHIELA BOB Attending Unavailable KRIS DENSON Attending Unavailable CELESTINO PAK Attending Unavailable CELESTINO PAK Attending Unavailable CELESTINO PAK Attending Unavailable PROBLEMS DATE TYPE CONDITION / CODE ATTENDING STATUS [facility] 03/14/2023 Admitting Diagnosis Mixed hyperlipidemia / E78.2(ICD-10) SHIELA BOB Active [facility] 09/01/2024 Unknown Weakness / R53.1(ICD-10) NA Active [facility] 09/01/2024 Unknown Fall / FREETEXT(AOF) NA Active [facility] 06/23/2024 Unknown Chest pain, unspecified / R07.9(ICD-10) EZRA MALDONADO Active [facility] 06/23/2024 Unknown Chest Pain / FREETEXT(AOF) EZRA MALDONADO Active [facility] 06/22/2024 Active Encounter for ot her orthopedic aftercare / Z47.89(ICD-10) KAYODE BIGGS [facility] Active Unspecified frac ture of unspecified lumbar vertebra, subsequent encounter for fracture with routine healing / S32.009D(ICD-10) Unknown Active [facility] 05/15/2024 Active Displaced spiral fracture of shaft of right femur, subsequent encounter for closed fracture with routine healing / S72.341D(ICD-10) Unknown Active [facility] 05/03/2024 Active Displaced fractu re of body of scapula, left shoulder, initial encounter for closed fracture / S42.112A(ICD-10) Unknown Active [facility] 05/03/2024 Active Multiple fractur es of pelvis with unstable disruption of pelvic ring, initial encounter for closed fracture (HCC) / S32.811A(ICD-10) Unknown Active [facility] 06/16/2024 Admitting Diagnosis Bacteremia / R78.81(ICD-10) CELESTINO PAK Active [facility] 06/16/2024 Admitting Diagnosis Other bacterial infections of unspecified site / A49.8(ICD-10) CELESTINO PAK Active [facility] 06/16/2024 Admitting Diagnosis Unspecified open wound, right lower leg, sequela / S81.801S(ICD-10) CELESTINO PAK Active [facility] 06/16/2024 Admitting Diagnosis Unspecified open wound of left buttock, sequela / S31.829S(ICD-10) CELESTINO PAK Active [facility] 06/16/2024 Admitting Diagnosis Streptococcal infection, unspecified site / A49.1(ICD-10) CELESTINO PAK Active [facility] 06/16/2024 Admitting Diagnosis Resistance to vancomycin / Z16.21(ICD-10) CELESTINO PAK Active [facility] 06/16/2024 Admitting Diagnosis End stage renal disease / N18.6(ICD-10) CELESTINO PAK Active [facility] 06/16/2024 Admitting Diagnosis Dependence on renal dialysis / Z99.2(ICD-10) CELESTINO PAK Active [facility] 06/16/2024 Admitting Diagnosis Presence of functional implant, unspecified / Z96.9(ICD-10) CELESTINO PAK [facility] 12/19/2022 Unknown Essential (prima ry) hypertension / I10(ICD-10) [facility] 06/13/2024 Unknown Type 2 diabetes mellitus with diabetic polyneuropathy / E11.42(ICD-10) [facility] 05/21/2024 Unknown Non-pressure chr onic ulcer of left thigh with unspecified severity / L97.129(ICD-10) [facility] 05/21/2024 Unknown Non-pressure chr onic ulcer of buttock limited to breakdown of skin / L98.411(ICD-10) [facility] 05/20/2024 Unknown Bacteremia / R78.81(ICD-10) [facility] 05/20/2024 Unknown Enterococcus as the cause of diseases classified elsewhere / B95.2(ICD-10) [facility] 05/20/2024 Unknown Other injury of unspecified body region, initial encounter / T14.8XXA(ICD-10) OCTAVIANO GONZALEZ [facility] 05/20/2024 Unknown Local infection of the skin and subcutaneous tissue, unspecified / L08.9(ICD-10) OCTAVIANO GONZALEZ [facility] 05/20/2024 Unknown End stage renal disease / N18.6(ICD-10) OCTAVIANO GONZALEZ [facility] 05/20/2024 Unknown Sepsis, unspecif ied organism / A41.9(ICD-10) OCTAVIANO GONZALEZ [facility] 05/20/2024 Unknown Wound Check / FREETEXT(AOF) OCTAVIANO GONZALEZ [facility] 05/20/2024 Unknown Ill / UNK(Unknown) [facility] Pain in left shoulder / M25.512(ICD-10) AwaisDarren Juju [facility] 04/30/2024 Unknown History of falli ng / Z91.81(ICD-10) AwaisDarren Juju [facility] 04/30/2024 Unknown Pain in right le g / M79.604(ICD-10) AwaisAnabellechani Matute [facility] 03/23/2024 Unknown Cellulitis of umbilicus / L03.316(ICD-10) Octaviano Mahan [facility] PROCEDURES No Procedure Records Found RESULTS 36 Observed: 12/02/2024 8:07 AM Status: COMPLETED Source: [facility] Please inform the patient th at his white blood cell count is now within normal at 6.8. TELEPHONE Observed: 12/02/2024 12:00 AM Status: COMPLETED Source: [facility] [id number] ChelseaJuanpablo 1964 M Date Provider Department Center 12/02/2024 CELESTINO GRANADOS [email or web address] [[email or web address] Family History Problem Relation Age of Onset Breast cancer Mother Lung cancer Father Multiple sclerosis Sister Family Status - Relation Status Age at Mother Father Sister Alive Brother Alive CBC WITH AUTO DIFFERENTIAL Collected: 0 12/01/2024 2:00 PM Status: COMPLETED Source: [facility] TYPE CODE TESTS RESULT OUT OF RANGE REFERENCE UNITS LAB WBC WBC 6.8 4-11 x10E9/L LAB RBC RBC COUNT 3.73 Low 4.1-5.7 X10E12/L LAB HGB HEMOGLOBIN 12.1 Low 13-17 g/dL LAB HCT HEMATOCRIT 36.9 Low 39-50 % LAB MCV MCV 99 80-100 fL LAB MCH MCH 32.6 27-34 pg LAB MCHC MCHC 32.9 32-36 g/dL LAB RDW RDW 16.3 High 11.5-15 % LAB PLTC PLATELET COUNT 178 150-450 X10E9/L LAB MPV MPV 9.8 7-12 fL LAB NEUT NEUTROPHILS RELATIVE PERCENT BY AUTOMATED COUNT 61.7 % LAB LYMP LYMPHOCYTES RELATIVE PERCENT BY AUTOMATED COUNT 23.0 % LAB MONO MONOCYTES RELATIVE PERCENT BY AUTOMATED COUNT 5.3 % LAB EOS EOSINOPHILS RELATIVE PERCENT BY AUTOMATED COUNT 9.1 % LAB BASO BASOPHILS RELATIVE PERCENT BY AUTOMATED COUNT 0.9 % LAB ANEUT NEUTROPHILS ABSOLUTE COUNT BY AUTOMATED COUNT 4.2 1.5-6.6 10*3/uL LAB ALYMP LYMPHOCYTES ABSOLUTE COUNT (10*3/UL) BY AUTOMATED COUNT 1.6 1.0-3.5 10*3/uL LAB AMONO MONOCYTES ABSOLUTE COUNT (10*3/UL) BY AUTOMATED COUNT 0.4 0.0-0.9 10*3/uL LAB AEOS EOSINOPHILS ABSOLUTE COUNT (10*3/UL) BY AUTOMATED COUNT 0.6 High 0.0-0.4 10*3/uL LAB ABASO BASOPHILS ABSOLUTE COUNT (10*3/UL) BY AUTOMATED COUNT 0.1 0.0-0.2 10*3/uL LAB DTYPE CELLAVISION DIFFERENTIAL TYPE AUTOMATED DIFFERENTIAL Performed By: #### CBCA #### [facility] ([address] [place] [address] VIR ORDERS ONLY Observed: 11/27/2024 12:00 AM Status: COMPLETED Source: [facility] [id number] Juanpablo Tran 1964 M Date Provider Department Center 11/27/2024 8[address]SON LIZZETTE Baum [facility] Family History Problem Relation Age of Onset Breast cancer Mother Lung cancer Father Multiple sclerosis Sister Family Status - Relation Status Age at Mother Father Sister Alive Brother Alive OFFICE VISIT Observed: 11/26/2024 9:20 AM Status: COMPLETED Source: [facility] [id number] Juanpablo Tran [birth year] Date Provider Department Center 11/26/2024 SHIELA CASTANEDA LIZZETTE Baum [facility] Family History Problem Relation Age of Onset Breast cancer Mother Lung cancer Father Multiple sclerosis Sister Family Status - Relation Status Age at Mother Father Sister Alive Brother Alive Level of Service:[address] [place] OFFICE/OUTPATIENT ESTABLISHED MOD MDM 30 MIN Reason for Visit and Comments: Atrial Fibrillation [80] PROGRESS Observed: 11/26/2024 9:20 AM Status: COMPLETED Source: [facility] Patient is here today for a 6 month follow up. Patient states he isn't feeling to good today. Patient states he is still very short of breath with activity. Review of Systems Cardiovascular: Positive for dyspnea on exertion. PROGRESS Observed: 11/26/2024 9:20 AM Status: COMPLETED Source: [facility] Cardiovascular Medicine [facility] SUBJECTIVE Chief Complaint Patient presents with Atrial Fibrillation Juanpablo Tran is a 59 y.o. male here for follow-up. HPI PMHx: PAF on Amiodarone, hypertension, CHF, CAD, ESRD on hemodialysis, HFrEF, HLD, Hx Bacteremia 05/2024 history of VVS s/p dual chamber PM where generator is at EOL and he's declined to have removed 11/26/2024 Since last seen, he had a significant fall that resulted in multiple fractures that required surgical repair. He developed bacteremia. He is following with ID. He is to be on long-term suppression antibiotic. He has since been taken off of metoprolol due to hypotension. He c/o TRAN. This has been going on since his injury in May. He is working to increase his activity level. He feels like his TRAN is improving. Denies c/o CP, orthopnea, PND, LE edema, dizziness/LH, palpitations, syncope. Patient Active Problem List Diagnosis Chest pain Chronic systolic heart failure (CMS/HCC) Coronary atherosclerosis Dependence on hemodialysis Diabetes mellitus (CMS/HCC) Dyslipidemia ESRD (end stage renal disease) on dialysis (CMS/HCC) Fatigue Hypertensive disorder Necrotizing fasciitis (CMS/HCC) Obstructive sleep apnea syndrome Paroxysmal atrial fibrillation (CMS/HCC) Stage 4 chronic kidney disease (CMS/HCC) Surgical wound, non healing Abnormal gait Abnormal posture Callus of foot Depression, unspecified Dermatitis associated with moisture Diabetic peripheral neuropathy (CMS/HCC) Disorder associated with type 2 diabetes mellitus (CMS/HCC) Gastro-esophageal reflux disease without esophagitis Generalized muscle weakness Hammer toe Hemodialysis-associated hypotension Hereditary and idiopathic neuropathy, unspecified Onychodystrophy halfway (current) use of oral hypoglycemic drugs Hyperlipidemia, unspecified Onychomycosis Other abnormalities of gait and mobility Pain, unspecified Constipation due to opioid therapy Abscess of left thigh Acute renal failure Anemia of renal disease Dialysis AV fistula malfunction Dialysis disequilibrium syndrome Diarrhea DKA (diabetic ketoacidosis) (CMS/HCC) History of hypotension Hyponatremia Left thigh pain Leukocytosis Metabolic acidosis Nausea and vomiting Obesity Scalp abscess Cellulitis, umbilical Dermatitis, unspecified Iron deficiency anemia Joint pain Other longterm (current) drug therapy Secondary hyperparathyroidism Acute blood loss anemia Acute pain due to trauma Anemia due to chronic kidney disease Bilateral pulmonary contusion Closed displaced fracture of body of left scapula Closed displaced spiral fracture of shaft of right femur (CMS/HCC) Closed fracture of distal end of right femur (CMS/HCC) Closed fracture of right superior pubic ramus (CMS/HCC) Closed fracture of transverse process of lumbar vertebra (CMS/HCC) Fall from height of greater than 3 feet Fracture of multiple ribs Fracture of right femur (CMS/HCC) Hemorrhagic shock (CMS/HCC) Intertriginous skin ulcer (CMS/HCC) Left shoulder pain Major depressive disorder, recurrent, moderate (CMS/HCC) Multiple fractures of pelvis with unstable disruption of pelvic ring, initial encounter for closed fracture (CMS/HCC) Pleural effusion on right Right leg pain Spleen laceration Status post fall Pressure injury of left buttock, unstageable (CMS/HCC) Past Medical History: Diagnosis Date Atrial fibrillation (CMS/HCC) CHF (congestive heart failure) (CMS/HCC) Chronic kidney disease Coronary artery disease Diabetes mellitus (CMS/HCC) Hyperlipidemia Hypertension Primary cardiomyopathy (CMS/HCC) Sleep apnea Family History Problem Relation Name Age of Onset Breast cancer Mother Lung cancer Father Multiple sclerosis Sister Social History Tobacco Use Smoking status: Never Smokeless tobacco: Never Substance Use Topics Alcohol use: Yes Comment: occasional Drug use: Never No Known Allergies ROS Cardiovascular: Positive for dyspnea on exertion. OBJECTIVE Visit Vitals BP 110/58 (BP Location: Left arm, Patient Position: Sitting) Pulse 77 Ht 1.753 m (5' 9 ) Wt 122 kg (268 lb) SpO2 95% BMI 39.58 kg/m??? Smoking Status Never BSA 2.44 m??? Medications: Current Outpatient Medications: acetaminophen (Tylenol) 500 mg tablet, Take 1,000 mg by mouth every 6 (six) hours., Disp: , Rfl: amiodarone (Pacerone) 200 mg tablet, Take 1 tablet by mouth once daily, Disp: 90 tablet, Rfl: 3 amoxicillin (Amoxil) 250 mg capsule, Take 1 capsule (250 mg) by mouth every 12 (twelve) hours., Disp: 180 capsule, Rfl: 1 apixaban (Eliquis) 5 mg tablet, TAKE 1 TABLET BY MOUTH IN THE MORNING AND AT BEDTIME (Patient taking differently: Take 5 mg by mouth two times daily.), Disp: 180 tablet, Rfl: 3 aspirin 81 mg EC tablet, Take 81 mg by mouth in the morning., Disp: , Rfl: B complex-vitamin C-folic acid (Dialyvite) 100-1 mg tablet, Take 1 tablet by mouth in the morning., Disp: , Rfl: bisacodyl (Dulcolax, bisacodyl,) 10 mg suppository, Insert 10 mg into the rectum every 3rd (third) day if needed for constipation., Disp: , Rfl: cholecalciferol (VITAMIN D-3) 10 mcg (400 unit) tablet, 1 (one) time each day at the same time., Disp: , Rfl: docusate sodium (Colace) 100 mg capsule, TAKE 1 CAPSULE BY MOUTH EVERY 12 HOURS, Disp: , Rfl: gabapentin (Neurontin) 100 mg capsule, Take 100 mg by mouth in the morning., Disp: , Rfl: guaiFENesin (Mucinex) 600 mg 12 hr tablet, Take 600 mg by mouth twice a day., Disp: , Rfl: insulin NPH and regular human (NovoLIN) 100 unit/mL (70-30) injection, Inject 30 Units under the skin., Disp: , Rfl: lactulose (Kristalose) 10 gram packet, Take 10 g by mouth three times daily., Disp: , Rfl: lanolin-mineral oil (Josy) lotion, Apply topically if needed for dry skin., Disp: , Rfl: midodrine (Proamatine) 10 mg tablet, Take 10 mg by mouth if needed. At dialysis, Disp: , Rfl: nystatin (Mycostatin) 100,000 unit/gram powder, Apply topically two times daily., Disp: , Rfl: omeprazole (PriLOSEC) [address] capsule, Take 40 mg by mouth in the morning., Disp: , Rfl: oxyCODONE (Oxy-IR) 5 mg immediate release capsule, Take 5 mg by mouth every 8 (eight) hours if needed for severe pain (8-10 pain score)., Disp: , Rfl: polyethylene glycol (Glycolax) oral powder, Take 17 g by mouth in the morning., Disp: , Rfl: sennosides (Senokot) 8.6 mg tablet, Take 8.6 mg by mouth., Disp: , Rfl: sertraline (Zoloft) 100 mg tablet, Take 100 mg by mouth in the morning., Disp: , Rfl: sevelamer carbonate (Renvela) 800 mg tablet, Take 1,600 mg by mouth., Disp: , Rfl: sodium phosphates (Fleet) 9.5-3.5 gram/59 mL enema, Insert into the rectum if needed each day for constipation., Disp: , Rfl: levothyroxine (Synthroid, Levoxyl) 50 mcg tablet, Take 50 mcg by mouth in the morning., Disp: , Rfl: pioglitazone (Actos) 30 mg tablet, Take 30 mg by mouth in the morning., Disp: , Rfl: Physical Exam Constitutional: Appearance: Normal appearance. He is obese. HENT: Head: Normocephalic and atraumatic. Right Ear: External ear normal. Left Ear: External ear normal. Eyes: Extraocular Movements: Extraocular movements intact. Pupils: Pupils are equal, round, and reactive to light. Neck: Vascular: No carotid bruit. Cardiovascular: Rate and Rhythm: Normal rate and regular rhythm. Pulses: Normal pulses. Heart sounds: Normal heart sounds. Pulmonary: Effort: Pulmonary effort is normal. Breath sounds: Normal breath sounds. Abdominal: General: Bowel sounds are normal. Palpations: Abdomen is soft. Musculoskeletal: General: Normal range of motion. Cervical back: Neck supple. Right lower leg: No edema. Left lower leg: No edema. Skin: General: Skin is warm and dry. Neurological: General: No focal deficit present. Mental Status: He is alert and oriented to person, place, and time. Psychiatric: Mood and Affect: Mood normal. Behavior: Behavior normal. Thought Content: Thought content normal. Judgment: Judgment normal. Labs: No results found for: EXTCMP , BMPR1A , CBCDIF , BNP , LASAP , RED No visits with results within 6 Month(s) from this visit. Latest known visit with results is: No results found for any previous visit. No results found for: CHOL , TRIG , HDL , LDLDIRECT 09/01/24 Hgb 11.9, wbc 11.4, plt 217 Cr 4.89, BUN 35, K 3.7, Na 132, eGFR 13, AST 16, ALT 13 Testing/Procedures: EDWARD 05/22/2024 Left Ventricle: Systolic function is normal with an ejection fraction of 55-60%. Tricuspid Valve: There is moderate regurgitation. No vegetation present on the tricuspid valve. Right Ventricle: A pacer wire is present in the right ventricle. Pacemaker lead interrogated, there is fibrinous thickening. Almost impossible to distinguish between fibrinous material and vegetation Aortic Valve: No vegetation present on the aortic valve. Mitral Valve: No vegetation present on the mitral valve. Left Atrium: The left atrial appendage is normal. ECHO 05/21/2024 Left Ventricle: Left ventricle is mildly dilated. Systolic function is normal with an ejection fraction of >55%. No segmental wall motion abnormalities. Right Ventricle: Right ventricular size is moderately dilated. The right ventricular basal diameter is 53.3 mm. Cannot rule out endocarditis with thickenig of the RCC of the aortic valve with early, although brief, AI. Consider EDWARD if clinically indicated. Echo: 07/24/2022 Left Ventricle Left ventricle appears normal in size. There is mild increased wall thickness/hypertrophy. Systolic function is normal with an ejection fraction of 55-60%. No obvious regional wall motion abnormalities. Diastolic function assessment is indeterminate. Lateral E' is 7.62 cm/s. Medial E' is 6.74 cm/s. Right Ventricle Right ventricle was not well visualized. Right ventricular size is mildly dilated. The right ventricular basal diameter is 53.0 mm. Systolic function is low normal. A pacer wire is present in the right ventricle. Left Atrium Left atrium is mildly dilated. The left atrial volume index is 28.5 mL/m2. Right Atrium Right atrium is mildly dilated. IVC/SVC IVC appears dilated with increased right atrial pressure. Mitral Valve Mitral valve structure is normal. There is trace regurgitation. There is no evidence of mitral valve stenosis. Tricuspid Valve Tricuspid valve appears to be normal. There is mild regurgitation. There is no evidence of tricuspid valve stenosis. RVSP calculated at 38 mmHg. RVSP is based on RA pressure of 8 mmHg. RVSP may be underestimated. Aortic Valve The aortic valve is trileaflet. There is no regurgitation or stenosis. Pulmonic Valve Pulmonic valve structure is grossly normal. There is trace regurgitation. There is no evidence of pulmonic valve stenosis. The peak gradient is 4.49 mmHg. Ascending Aorta The aortic root is normal in size. Pericardium There is no pericardial effusion. ECHO 11/11/20: low normal LV systolic function, grade II DD, normal RV systolic function, no significant valvular dysfunction, normal right sided pressures ECHO from [place] - 08/31/2019: EF 55-60%, no RWMA, trace MR, trace TR Cardiovascular Laboratory Report (05/2017) FINAL IMPRESSION: 1. Right heart catheterization demonstrates [id number] elevated pulmonary capillary wedge pressure with a mean wedge pressure of 26 mmHg. 2. The cardiac output and cardiac index are preserved. 3. The patient is hypertensive at the time of this study. 4. Coronary angiogram reveals mild 2 vessel coronary artery disease, appropriate for medical therapy. PLAN: 1. Medical therapy for congestive heart failure. The patient is already on beta-mike and TALIA inhibitor. After discussion with Dr. Schofield, I am adding Lasix 20 mg twice daily for treatment of decompensated congestive heart failure. 2. The patient is hypertensive at the time of the study. I am adding amlodipine 5 mg daily for antihypertensive medical therapy. The patient is already on metoprolol XL and lisinopril. 3. I also added spironolactone 25 mg daily for treatment of congestive heart failure and volume overload. 4. I discontinued Zestoretic (lisinopril plus HCTZ) and substituted with lisinopril alone. Since the patient will be on Lasix and spironolactone for CHF, we can discontinue hydrochlorothiazide. 5. The patient will follow up with Dr. Schofield in 1 to 2 weeks. 6. The patient will follow up with Dr. Rojas in 1 to 2 weeks. ASSESSMENT/PLAN: Diagnoses and all orders for this visit: Mixed hyperlipidemia - Lipid panel; Future Paroxysmal atrial fibrillation (CMS/HCC) Coronary artery disease involving k[place] coronary artery of klawock heart without angina pectoris Orthostatic hypotension Encounter for monitoring anti-arrhythmic therapy Heart failure with improved ejection fraction (HFimpEF) (CMS/HCC) #HFimpEF Hx EF 40-45 % per echo -Echo in May, 2024 showed LVEF 60% . -He appears euvolemic. He denies any orthopnea or PND. TRAN is stable and improving with increase in activity level. -GDMT has been limited due to hypotension/orthostatic hypotension. Patient is not currently on any GDMT as he has been unable to tolerate anything #PAF -Maintaining SR on Amiodarone. Recent LFTs/c-xry 05/2024 unremarkable. TSH from 04/2024 was elevated at 7.1. He will be seeing his PCP soon. -He is on eliquis for stroke prophylaxis, denies any bleeding issues. #Hyperlipidemia -He is not currently on a statin, will order for a lipid profile. #CAD -Non-obstructive/mild per 2017 cardiac cath -stable without anginal symptoms. -Continue Aspirin #Orthostatic Hypotension -Continue compression stockings. -Change positions from sitting to standing slowly -Recommend routine exercise. 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 He declines at this time. He is currently on long-term suppressive abx therapy. Follow up in about 6 months (around 05/29/2025). Shiela Bob CNP [facility] Cardiovascular Medicine 36 Observed: 11/19/2024 10:31 AM Status: COMPLETED Source: [facility] Please fax the CBC ordered [facility]. PROGRESS Observed: 11/19/2024 10:20 AM Status: COMPLETED Source: [facility] Division of Infectious Disea ses - Outpatient Clinic Note Patient name: Juanpablo Tran Patient Today's Date and Time: 11/19/2024, 10:28 AM Primary Care Physician: Rc Rojas MD Reason for consultation / Chief complaint: Suppression therapy History of Present Illness: This is a 59-year-old male patient who was initially admitted on May 20, 2024. The patient had recently suffered a fall from 6 feet and had multiple traumatic injuries. He had been hospitalized at [facility] from April 30 through May 15, 2024. He had undergone repair of multiple orthopedic fractures. He had been discharged to a rehab facility but presented back to the hospital due to a left buttock wound that was found to be draining copious purulent fluid. Blood cultures were obtained on admission that showed Enterococcus faecalis that was ampicillin susceptible. The patient was evaluated and found to have a fluid collection in the right calf. A CT obtained did not show any abscess or hardware involvement concerning for deep infection. A wound culture obtained from the site showed Enterococcus faecalis. The patient underwent a CT of the abdomen and pelvis that showed small locules of gas along the medial aspect of the left thigh/gluteal crease with mild surrounding fat stranding. A wound culture obtained showed VRE and Proteus. General surgery evaluated the patient, and there were no concerns for necrotizing fasciitis. The patient does have a right upper extremity fistula, but there was no current evidence for infection. A EDWARD was obtained that showed fibrinous material on the pacemaker lead, and it was unable to exclude fibrinous material versus a small vegetation. Electrophysiology cardiology reviewed the EDWARD, and they felt that the stranding on the lead was secondary to a prior clot with subsequent organization. The patient was discharged with intravenous daptomycin that would conclude on June 07, 2024 and oral Augmentin that would conclude on June 05, 2024. Patient had completed a hospital follow-up with our service on June 16, 2024. At that time, he was tolerating his antibiotic therapy. He had completed the treatment as prescribed and was started on suppression therapy with oral amoxicillin. he had last followed up on August 18, 2024, and at that time, he had been taken off of amoxicillin by his [facility] facility. He was restarted on the suppression, and he was not experiencing any signs of infection. The patient is completing a subsequent follow-up with our service today to evaluate for any change of symptoms. He is present today with his friend, Santosh. He reports he has been taking amoxicillin as prescribed and has not had any side effects. He had a wound in the left groin that developed since his last visit, but he reports this has healed. He does not have any other wounds. He denied having any fevers, chills, chest pain, shortness of breath, abdominal pain, nausea, vomiting, or diarrhea. He is now residing at home. His mobility is increasing. He is ambulating with a walker, but he can ambulate without assistance for 6-8 feet. He is receiving dialysis at [facility]. He has [facility]. He has been working with physical therapy in home, as well. Past Medical History: Past Medical History: Diagnosis Date Atrial fibrillation (CMS/HCC) CHF (congestive heart failure) (CMS/HCC) Chronic kidney disease Coronary artery disease Diabetes mellitus (CMS/HCC) Hyperlipidemia Hypertension Primary cardiomyopathy (CMS/HCC) Sleep apnea Past Surgical History: Past Surgical History: Procedure Laterality Date CARDIAC CATHETERIZATION CARDIOVERSION Medications: Social History: Social History Socioeconomic History Marital status: Single Spouse name: Not on file Number of children: Not on file Years of education: Not on file Highest education level: Not on file Occupational History Not on file Tobacco Use Smoking status: Never Smokeless tobacco: Never Substance and Sexual Activity Alcohol use: Yes Drug use: Not on file Sexual activity: Not on file Other Topics Concern Not on file Social History Narrative Not on file Social Determinants of Health Financial Resource Strain: Low Risk (04/01/2024) Received from [facility] Overall Financial Resource Strain (CARDIA) Difficulty of Paying Living Expenses: Not very hard Food Insecurity: No Food Insecurity (09/01/2024) Received from [facility] Hunger Screening Within the past 12 months we worried whether our food would run out before we got money to buy more.: Never True Within the past 12 months the food we bought just didn't last and we didn't have money to get more.: Never True Transportation Needs: No Transportation Needs (05/20/2024) Received from [facility] PRAPARE - Transportation Lack of Transportation (Medical): No Lack of Transportation (Non-Medical): No Physical Activity: Insufficiently Active (04/01/2024) Received from [facility] Exercise Vital Sign Days of Exercise per Week: 1 day Minutes of Exercise per Session: 10 min Stress: Stress Concern Present (04/01/2024) Received from [facility] - Occupational Stress Questionnaire Feeling of Stress : To some extent Social Connections: Moderately Isolated (04/01/2024) Received from [facility] Social Connection and Isolation Panel [NHANES] Frequency of Communication with Friends and Family: More than three times a week Frequency of Social Gatherings with Friends and Family: More than three times a week Attends Cheondoism Services: Never Active Member of Clubs or Organizations: Yes Attends Club or Organization Meetings: More than 4 times per year Marital Status: Never Intimate Partner Violence: Unknown (04/30/2024) Received from [facility] Humiliation, Afraid, Rape, and Kick questionnaire Fear of Current or Ex-Partner: Not on file Emotionally Abused: No Physically Abused: Not on file Sexually Abused: Not on file Housing Stability: Low Risk (05/20/2024) Received from [facility] Housing Instability Are you worried or concerned that in the next two months you may not have stable housing that you own, rent or stay in as a part of a household?: No Family History: Family History Problem Relation Name Age of Onset Breast cancer Mother Lung cancer Father Immunization History: Immunization History Administered Date(s) Administered Moderna 12 YR UP Vaccine BiValent Booster 09/24/2020, 10/22/2020 Tdap 04/30/2024 Allergies: No Known Allergies Review of Systems: General: No fevers or chills. Eyes: No double vision or blurry vision. ENT: No sore throat or runny nose. Cardiovascular: No chest pain or palpitations. Lung: No shortness of breath or cough. Abdomen: No nausea, vomiting, diarrhea, or abdominal pain. Genitourinary: No increased urinary frequency, or dysuria. Musculoskeletal: No muscle aches or pains. Hematologic: No bleeding or bruising. Neurologic: No headache, weakness, numbness, or tingling. Objective Physical Examination: Vitals: 11/19/24 1004 BP: 126/70 BP Location: Left arm Patient Position: Sitting BP Cuff Size: Adult Pulse: 72 SpO2: 98% Weight: 120 kg (265 lb) Height: 1.753 m (5' 9 ) General Appearance: awake, alert, oriented, in no acute distress Lungs: Normal expansion. Clear to auscultation. No rales, rhonchi, or wheezing. Heart: Heart sounds are normal. Regular rate and rhythm without murmur, gallop or rub. Abdomen: Soft, non-tender, normal bowel sounds; no bruits, organomegaly or masses. Skin: there are no suspicious lesions or rashes of concern Psych exam: alert,oriented, in NAD with a full range of affect, normal behavior and no psychotic features Impression and Recommendations: 1. Bacteremia This is a patient who previously suffered from bacteremia secondary to Enterococcus faecalis. He was also found to have fibrinous material on a pacemaker lead. He completed treatment with intravenous daptomycin on June 07, 2024. He completed treatment with Augmentin on June 05, 2024. He has since been on chronic suppression therapy with oral amoxicillin. He has tolerated the antibiotic without any side effects. He is not currently suffering from any symptoms of infection. He is now residing at home and is much more mobile. On examination, there are no signs of infection. We will plan for him to continue on chronic suppression therapy, as it is felt he is at high risk of recurrent infection due to his retained hardware. He was also noted to have a CBC with mild leukocytosis based on lab work obtained in the emergency department on September 01, 2024. The patient reports he had gone to the emergency department due to a fall. We will plan to repeat a CBC to ensure the leukocytosis has resolved. We will then follow-up with him in 6 months for further evaluation. He was in agreement with this plan. - amoxicillin (Amoxil) 250 mg capsule; Take 1 capsule (250 mg) by mouth every 12 (twelve) hours. Dispense: 180 capsule; Refill: 1 - CBC and differential; Future 2. Enterococcus faecalis infection Treatment as above. - amoxicillin (Amoxil) 250 mg capsule; Take 1 capsule (250 mg) by mouth every 12 (twelve) hours. Dispense: 180 capsule; Refill: 1 - CBC and differential; Future 3. ESRD on hemodialysis ([facility]) The patient's antibiotic therapy has been dosed accordingly. He has not experienced any complications with hemodialysis. - amoxicillin (Amoxil) 250 mg capsule; Take 1 capsule (250 mg) by mouth every 12 (twelve) hours. Dispense: 180 capsule; Refill: 1 - CBC and differential; Future 4. Presence of retained hardware The patient has retained hardware in the pelvic and lower extremity regions along with a fistula in the right upper extremity and a cardiac pacemaker. He will continue on chronic suppression therapy. - amoxicillin (Amoxil) 250 mg capsule; Take 1 capsule (250 mg) by mouth every 12 (twelve) hours. Dispense: 180 capsule; Refill: 1 - CBC and differential; Future The patient was educated about new and worsening signs and symptoms of infection to monitor for and instructed to call immediately or go to the emergency department if any of these occur. Celestino Pak APRN-[facility] Phys[facility]-Infectious Disease Please call , option 3, for any questions or concerns. This progress note was completed using a voice housekeeper supervisor system. Every effort was made to ensure accuracy; however, inadvertent computerized housekeeper supervisor errors may be present. FOLLOW-UP Observed: 11/19/2024 10:20 AM Status: COMPLETED Source: [facility] [id number] Juanpablo Tran 1964 M Date Provider Department Center 11/19/2024 129-CELESTINO PAK [facility] [email or web address]] [facility] [[email or web address]] Family History Problem Relation Age of Onset Breast cancer Mother Lung cancer Father Family Status - Relation Status Age at Mother Father Level of Service:91075 [place] OFFICE/OUTPATIENT ESTABLISHED MOD MDM 30 MIN Reason for Visit and Comments: Follow-up [[id number]] TELEPHONE Observed: 11/19/2024 12:00 AM Status: COMPLETED Source: [facility] [id number] Juanpablo Tran [birth year] M Date Provider Department Center 11/19/2024 Amanda-CELESTINO PAK [facility] [[email or web address]] [facility] [[email or web address]] Family History Problem Relation Age of Onset Breast cancer Mother Lung cancer Father Family Status - Relation Status Age at Mother Father CBC AND AUTO DIFF Collected: 09/01/2024 8:28 PM Status: COMPLETED Source: [facility] TYPE CODE TESTS RESULT OUT OF RANGE REFERENCE UNITS LAB WBC(LOINC) WBC COUNT 11.4 High 4.0-11.0 X10E9/L LAB RBC(LOINC) RBC COUNT 3.69 Low 4.10-5.70 X10E12/L LAB HGB(LOINC) HEMOGLOBIN 11.9 Low 13.0-17.0 g/dL LAB HCT(LOINC) HEMATOCRIT 36.2 Low 39-49 % LAB MCV(LOINC) MCV 98 80-100 fL LAB MCH(LOINC) MCH 32.2 27-34 pg LAB MCHC(LOINC) MCHC 32.7 32-36 g/dL LAB RDW(LOINC) RDW 16.8 High 11.5-15.0 % LAB PLTC(LOINC) PLATELET COUNT 217 150-450 X10E9 /L LAB MPV(LOINC) MPV 9.1 7-12 fL LAB NEUT(LOINC) % NEUTROPHILS 74.6 % LAB LYMP(LOINC) % LYMPHOCYTES 14.6 % LAB MONO(LOINC) % MONOCYTES 5.2 % LAB EOS(LOINC) % EOSINOPHILS 4.8 % LAB BASO(LOINC) % BASOPHILS 0.8 % LAB ANEUT(LOINC) ABSOLUTE NEUTROPHIL 8.5 High 1.5-6.6 X10E9/L LAB ALYMP(LOINC) ABSOLUTE LYMPHOCYTE 1.7 1.0-3.5 X10E9/L LAB AMONO(LOINC) ABSOLUTE MONOCYTE 0.6 0-0.9 X10E9/L LAB AEOS(LOINC) ABSOLUTE EOSINOPHIL 0.5 High 0.0-0.4 X10E9/L LAB ABASO(LOINC) ABSOLUTE BASOPHIL 0.1 0.0-0.2 X10E9/L Performed By: #### LOURDES OSBORNE , [id number] #### [facility] ([id number]) [address] [place] [id number] COMPREHENSIVE METABOLIC PANEL Collected: 2024 8:28 PM Status: COMPLETED Source: [facility] TYPE CODE TESTS RESULT OUT OF RANGE REFERENCE UNITS LAB NA(LOINC) SODIUM 132 Low 134-146 mmol/L LAB K(LOINC) POTASSIUM 3.7 3.5-5.0 mmol/L LAB CL(LOINC) CHLORIDE 96 Low 98-109 mmol/L LAB CO2(LOINC) CARBON DIOXIDE 27 22-32 mmol/L LAB AGAP(LOINC) ANION GAP 9 5-15 mmol/L LAB BUN(LOINC) BLOOD UREA NITROGEN 35 High 5-23 mg/dL LAB CRET(LOINC) CREATININE 4.89 High 0.70-1.20 mg/dL Result Comment: METHOD TRACE ABLE TO IDMS STANDARD LAB GLU(LOINC) GLUCOSE 160 High 65-99 mg/dL LAB CA(LOINC) CALCIUM 8.6 8.5-10.5 mg/dL LAB TP(LOINC) TOTAL PROTEIN 7.6 6.0-8.0 g/dL LAB ALB(LOINC) ALBUMIN 3.2 3.2-5.3 g/dL LAB ALK(LOINC) ALKALINE PHOSPHATASE 94 39-130 U/L LAB AST(LOINC) AST 16 0-41 U/L LAB ALT1(LOINC) ALT 13 0-40 U/L LAB TBIL(LOINC) BILIRUBIN,TOTAL 1.3 High 0.3-1.2 mg/d L LAB EGFR(LOINC) eGFR (CKD-EPI) NON-RACE DEPENDENT 13 Low >59 ml/min/1 .73sq.m Result Comment: Reported eGFR is based on the CKD-EPI 2020 equation that does not use a race coefficient. Performed By: #### LOURDES OSBORNE , [id number] #### [facility] ([id number]) [address] [place] [id number] MAGNESIUM Collected: 09/01/2024 8:28 PM S tatus: COMPLETED Source: [facility] TYPE CODE TESTS RESULT OUT OF RANGE REFERENCE UNITS LAB MG(LOINC) MAGNESIUM 1.9 1.8-2.6 mg/dL Performed By: #### CBCA, [facility] , [id number] #### [facility] ([id number]) [address] [facility] [place] [address] 36 Observed: 08/18/2024 10:49 AM Status: COMPLETED Source: [facility] Visit notes faxed to [facility] and scanned into chart. 36 Observed: 08/18/2024 10:21 AM Status: COMPLETED Source: [facility] Please fax [facility]. PROGRESS Observed: 08/18/2024 9:20 AM Status: COMPLETED Source: [facility] Division of Infectious Disea ses - Outpatient Clinic Note Patient name: Juanpablo Tran Patient Today's Date and Time: 08/18/2024, 10:17 AM Primary Care Physician: Rc Rojas MD Reason for consultation / Chief complaint: Suppression therapy History of Present Illness: This is a 59-year-old male patient who was initially admitted on May 20, 2024. The patient had recently suffered a fall from 6 feet and had multiple traumatic injuries. He had been hospitalized at [facility] from April 30 through May 15, 2024. He had undergone repair of multiple orthopedic fractures. He had been discharged to a rehab facility but presented back to the hospital due to a left buttock wound that was found to be draining copious purulent fluid. Blood cultures were obtained on admission that showed Enterococcus faecalis that was ampicillin susceptible. The patient was evaluated and found to have a fluid collection in the right calf. A CT obtained did not show any abscess or hardware involvement concerning for deep infection. A wound culture obtained from the site showed Enterococcus faecalis. The patient underwent a CT of the abdomen and pelvis that showed small locules of gas along the medial aspect of the left thigh/gluteal crease with mild surrounding fat stranding. A wound culture obtained showed VRE and Proteus. General surgery evaluated the patient, and there were no concerns for necrotizing fasciitis. The patient does have a right upper extremity fistula, but there was no current evidence for infection. A EDWARD was obtained that showed fibrinous material on the pacemaker lead, and it was unable to exclude fibrinous material versus a small vegetation. Electrophysiology cardiology reviewed the EDWARD, and they felt that the stranding on the lead was secondary to a prior clot with subsequent organization. The patient was discharged with intravenous daptomycin that would conclude on June 07, 2024 and oral Augmentin that would conclude on June 05, 2024. Patient had completed a hospital follow-up with our service on June 16, 2024. At that time, he was tolerating his antibiotic therapy. He had completed the treatment as prescribed and was started on suppression therapy with oral amoxicillin. The patient is completing a subsequent follow-up with our service today to evaluate for any other change of symptoms.He is [facility] today from [facility] facility. He reports that since his last follow-up, he had been on amoxicillin, but this is not currently present on his medication list today. He reports that while on the amoxicillin, he did not experience any side effects from the antibiotic. He denied having any fevers, chills, chest pain, shortness of breath, abdominal pain, or diarrhea. He does report intermittent nausea and vomiting that has been chronic, and he reports this typically occurs once every few weeks. He continues to undergo hemodialysis Saturday, Saturday, and Saturday. He reports the wounds on his lower extremities and sacral region have healed. He has not had any new wounds develop. Past Medical History: Past Medical History: Diagnosis Date Atrial fibrillation (CMS/HCC) CHF (congestive heart failure) ([facility]/HCC) Chronic kidney disease Coronary artery disease Diabetes mellitus (CMS/HCC) Hyperlipidemia Hypertension Primary cardiomyopathy ([facility]/HCC) Sleep apnea Past Surgical History: Past Surgical History: Procedure Laterality Date CARDIAC CATHETERIZATION CARDIOVERSION Medications: Social History: Social History Socioeconomic History Marital status: Single Spouse name: Not on file Number of children: Not on file Years of education: Not on file Highest education level: Not on file Occupational History Not on file Tobacco Use Smoking status: Never Smokeless tobacco: Never Substance and Sexual Activity Alcohol use: Yes Drug use: Not on file Sexual activity: Not on file Other Topics Concern Not on file Social History Narrative Not on file Social Determinants of Health Financial Resource Strain: Low Risk (04/01/2024) [facility] Overall Financial Resource Strain (CARDIA) Difficulty of Paying Living Expenses: Not very hard Food Insecurity: No Food Insecurity (06/23/2024) Received from [facility] Hunger Screening Within the past 12 months we worried whether our food would run out before we got money to buy more.: Never True Within the past 12 months the food we bought just didn't last and we didn't have money to get more.: Never True Transportation Needs: No Transportation Needs (05/20/2024) Received from [facility] PRAPARE - Transportation Lack of Transportation (Medical): No Lack of Transportation (Non-Medical): No Physical Activity: Insufficiently Active (04/01/2024) Received from [facility] Exercise Vital Sign Days of Exercise per Week: 1 day Minutes of Exercise per Session: 10 min Stress: Stress Concern Present (04/01/2024) Received from [facility] Occupational Health - Occupational Stress Questionnaire Feeling of Stress : To some extent Social Connections: Moderately Isolated (04/01/2024) Received from [facility] Social Connection and Isolation Panel [NHANES] Frequency of Communication with Friends and Family: More than three times a week Frequency of Social Gatherings with Friends and Family: More than three times a week Attends Cheondoism Services: Never Active Member of Clubs or Organizations: Yes Attends Club or Organization Meetings: More than 4 times per year Marital Status: Never Intimate Partner Violence: Unknown (04/30/2024) [facility], Afraid, Rape, and Kick questionnaire Fear of Current or Ex-Partner: Not on file Emotionally Abused: No Physically Abused: Not on file Sexually Abused: Not on file Housing Stability: Low Risk (05/20/2024) Received from [facility] Housing Instability Are you worried or concerned that in the next two months you may not have stable housing that you own, rent or stay in as a part of a household?: No Family History: Family History Problem Relation Name Age of Onset Breast cancer Mother Lung cancer Father Immunization History: Immunization History Administered Date(s) Administered Moderna 12 YR UP Vaccine BiValent Booster 09/24/2020, 10/22/2020 Tdap 04/30/2024 Allergies: Allergies Allergen Reactions Penicillin Other Review of Systems: General: No fevers or chills. Eyes: No double vision or blurry vision. ENT: No sore throat or runny nose. Cardiovascular: No chest pain or palpitations. Lung: Chronic intermittent shortness of breath. No cough. Abdomen: Intermittent nausea and vomiting that occurs once every few weeks. No abdominal pain or diarrhea. Genitourinary: No increased urinary frequency, or dysuria. Musculoskeletal: No muscle aches or pains. Hematologic: No bleeding or bruising. Neurologic: No headache, weakness, numbness, or tingling. Objective Physical Examination: Vitals: 08/18/24 0913 08/18/24 0925 BP: (!) 74/48 120/64 Pulse: (!) 37 64 Resp: 16 SpO2: (!) 88% 98% Height: 1.753 m (5' 9 ) BP improved to 120/64 with manual reading. Pulse oximeter was 98% and pulse was 64. General Appearance: awake, alert, oriented, in no acute distress Lungs: Normal expansion. Clear to auscultation. No rales, rhonchi, or wheezing. Heart: Irregular irregular rhythm noted. Abdomen: Soft, non-tender, normal bowel sounds; no bruits, organomegaly or masses. Skin: there are no suspicious lesions or rashes of concern Psych exam: alert,oriented, in NAD with a full range of affect, normal behavior and no psychotic features Impression and Recommendations: 1. Bacteremia This is a patient who previously suffered from bacteremia secondary to Enterococcus faecalis. He was also noted to have fibrinous material on the pacemaker lead. He completed treatment with intravenous daptomycin on June 07, 2024. He completed treatment with oral Augmentin on June 05, 2024. He was then started on chronic suppression therapy with oral amoxicillin on June 16, 2024, and it was planned for this to continue indefinitely. The patient reports today that while he was on amoxicillin, he did not have any side effects from the medication. However, the medication is not currently listed on his current medication list, and the patient is unsure if he has been receiving it. He does not have any current symptoms of infection. In review of his chart, he did go to the emergency department on June 23, 2024 for reported chest pain. A CBC obtained at that time did not show any leukocytosis. On examination, there are no signs of infection. It was discussed with the patient today that he will need to continue on chronic suppression therapy with oral amoxicillin indefinitely due to the presence of retained hardware and concern for recurrent infection. We will send a prescription for amoxicillin back with him to his facility and also to his local pharmacy, as he reports he is going to be discharged home from his facility within the next 2 weeks. We will then follow-up with him in 3 months for further evaluation. He was in agreement with this plan. - amoxicillin (Amoxil) 250 mg capsule; Take 1 capsule (250 mg) by mouth every 12 (twelve) hours. - amoxicillin (Amoxil) 250 mg capsule; Take 1 capsule (250 mg) by mouth every 12 (twelve) hours. Dispense: 180 capsule; Refill: 0 2. Enterococcus faecalis infection Treatment as above. - amoxicillin (Amoxil) 250 mg capsule; Take 1 capsule (250 mg) by mouth every 12 (twelve) hours. - amoxicillin (Amoxil) 250 mg capsule; Take 1 capsule (250 mg) by mouth every 12 (twelve) hours. Dispense: 180 capsule; Refill: 0 3. ESRD on hemodialysis ([facility]) The patient's antibiotic therapy has been dosed accordingly. - amoxicillin (Amoxil) 250 mg capsule; Take 1 capsule (250 mg) by mouth every 12 (twelve) hours. - amoxicillin (Amoxil) 250 mg capsule; Take 1 capsule (250 mg) by mouth every 12 (twelve) hours. Dispense: 180 capsule; Refill: 0 4. Presence of retained hardware The patient has retained hardware in the pelvic and lower extremity regions. He has a fistula in the right upper extremity and a cardiac pacemaker. He will continue on chronic suppression therapy with oral amoxicillin indefinitely. - amoxicillin (Amoxil) 250 mg capsule; Take 1 capsule (250 mg) by mouth every 12 (twelve) hours. - amoxicillin (Amoxil) 250 mg capsule; Take 1 capsule (250 mg) by mouth every 12 (twelve) hours. Dispense: 180 capsule; Refill: 0 The patient was educated about new and worsening signs and symptoms of infection to monitor for and instructed to call immediately or go to the emergency department if any of these occur. Celestino Pak APRN-[facility] Physicians-Infectious Disease Please call , option 3, for any questions or concerns. This progress note was completed using a voice housekeeper supervisor system. Every effort was made to ensure accuracy; however, inadvertent computerized housekeeper supervisor errors may be present. FOLLOW-UP Observed: 08/18/2024 9:20 AM Status: COMPLETED Source: [facility] [id number] Juanpablo Tran 1964 [facility] Provider Department Center 08/18/2024 CELESTINO GRANADOS [facility] Family History Problem Relation Age of Onset Breast cancer Mother Lung cancer Father Family Status - Relation Status Age at Mother Father Level of Service:98012 [place] OFFICE/OUTPATIENT ESTABLISHED MOD MDM 30 MIN TELEPHONE Observed: 08/18/2024 12:00 AM Status: COMPLETED Source: [facility] [id number] Juanpablo Tran 1964 [facility] Provider Department Center 08/18/2024 CELESTINO GRANADOS [facility] Family History Problem Relation Age of Onset Breast cancer Mother Lung cancer Father Family Status - Relation Status Age at Mother Father 36 Observed: 08/11/2024 8:51 AM Status: COMPLETED Source: [facility] Second attempt. Detailed mes tiana left again. 35 Observed: 08/11/2024 8:28 AM Status: COMPLETED Source: [facility] Left detailed callback rocio guerra. Offered to reschedule on TELEPHONE Observed: 08/11/2024 12:00 AM Status: COMPLETED Source: [facility] [id number] Juanpablo Tran 1964 [facility] Provider Department Center 08/11/2024 AmandaCELESTINO NEVAREZ [facility] Family History Problem Relation Age of Onset Breast cancer Mother Lung cancer Father Family Status - Relation Status Age at Mother Father Reason for Visit and Comments: Need to reschedule [Other] 35 Observed: 07/28/2024 8:47 AM Status: COMPLETED Source: [facility] Left callback message XR CHEST 1 VW Observed: 06/23/2024 9:28 PM Status: COMPLETED Source: [facility] XR CHEST 1 VW Indication: Chest pain. TECHNIQUE: Frontal view of the chest obtained portably compared to multiple prior exams. Exam is significantly compromised due to portable technique and body habitus and lordotic angulation. Comparisons also made to prior CT the abdomen and pelvis dated 05/22/2024 FINDINGS: Left lower lobe airspace process is not excluded on this exam. Abdomen superimposes over lower chest. Lung volumes appear decreased accentuated by technique. The heart appears enlarged. Left heart border not well seen similar to prior exam with prominent epicardial fat on prior CT. Small effusions may be present. Mediastinum appears wide unchanged. No pneumothorax seen. Pacer leads appear grossly unchanged. IMPRESSION: 1. Significantly compromised evaluation due to body habitus and technique. 2. Possible small bilateral effusions. Finalized by Jeannie Ryan MD on 06/23/2024 9:31 PM CBC AND AUTO DIFF Collected: 06/23/2024 9:25 PM Status: COMPLETED Source: [facility] TYPE CODE TESTS RESULT OUT OF RANGE REFERENCE UNITS LAB WBC(LOINC) WBC COUNT 8.7 4.0-11.0 X10E9/L LAB RBC(LOINC) RBC COUNT 2.80 Low 4.10-5.70 X10E12/L LAB HGB(LOINC) HEMOGLOBIN 9.2 Low 13.0-17.0 g/dL LAB HCT(LOINC) HEMATOCRIT 27.0 Low 39-49 % LAB MCV(LOINC) MCV 96 80-100 fL LAB MCH(LOINC) MCH 32.7 27-34 pg LAB MCHC(LOINC) MCHC 34.0 32-36 g/dL LAB RDW(LOINC) RDW 19.5 High 11.5-15.0 % LAB PLTC(LOINC) PLATELET COUNT 179 150-450 X10E9 /L LAB MPV(LOINC) MPV 9.2 7-12 fL LAB NEUT(LOINC) % NEUTROPHILS 66.0 % LAB LYMP(LOINC) % LYMPHOCYTES 16.2 % LAB MONO(LOINC) % MONOCYTES 5.9 % LAB EOS(LOINC) % EOSINOPHILS 10.9 % LAB BASO(LOINC) % BASOPHILS 1.0 % LAB ANEUT(LOINC) ABSOLUTE NEUTROPHIL 5.7 1.5-6.6 X10E9/L LAB ALYMP(LOINC) ABSOLUTE LYMPHOCYTE 1.4 1.0-3.5 X10E9/L LAB AMONO(LOINC) ABSOLUTE MONOCYTE 0.5 0-0.9 X10E9/L LAB AEOS(LOINC) ABSOLUTE EOSINOPHIL 1.0 High 0.0-0.4 X10E9/L LAB ABASO(LOINC) ABSOLUTE BASOPHIL 0.1 0.0-0.2 X10E9/L Performed By: #### LOURDES OSBORNE , [id number] #### [facility] ([id number]) [address] [place] [id number] COMPREHENSIVE METABOLIC PANEL Collected: 2023 9:25 PM Status: COMPLETED Source: [facility] TYPE CODE TESTS RESULT OUT OF RANGE REFERENCE UNITS LAB NA(LOINC) SODIUM 132 Low 134-146 mmol/L LAB K(LOINC) POTASSIUM 4.0 3.5-5.0 mmol/L LAB CL(LOINC) CHLORIDE 93 Low 98-109 mmol/L LAB CO2(LOINC) CARBON DIOXIDE 29 22-32 mmol/L LAB AGAP(LOINC) ANION GAP 10 5-15 mmol/L LAB BUN(LOINC) BLOOD UREA NITROGEN 27 High 5-23 mg/dL LAB CRET(LOINC) CREATININE 4.73 High 0.70-1.20 mg/dL Result Comment: METHOD TRACE ABLE TO IDMS STANDARD LAB GLU(LOINC) GLUCOSE 131 High 65-99 mg/dL LAB CA(LOINC) CALCIUM 8.7 8.5-10.5 mg/dL LAB TP(LOINC) TOTAL PROTEIN 7.1 6.0-8.0 g/dL LAB ALB(LOINC) ALBUMIN 2.8 Low 3.2-5.3 g/dL LAB ALK(LOINC) ALKALINE PHOSPHATASE 127 39-130 U/L LAB AST(LOINC) AST 12 0-41 U/L LAB ALT1(LOINC) ALT 11 0-40 U/L LAB TBIL(LOINC) BILIRUBIN,TOTAL 1.1 0.3-1.2 mg/d L LAB EGFR(LOINC) eGFR (CKD-EPI) NON-RACE DEPENDENT 13 Low >59 ml/min/1 .73sq.m Result Comment: Reported eGFR is based on the CKD-EPI 2020 equation that does not use a race coefficient. Performed By: #### LOURDES OSBORNE , [id number] #### [facility] ([id number]) [address] [place] [id number] TROPONIN I, HIGH SENSITIVITY Collected: 024 9:25 PM Status: COMPLETED Source: [facility] TYPE CODE TESTS RESULT OUT OF RANGE REFERENCE UNITS LAB TNIHS(LOINC) TROPONIN I, HIGH SENSITIVITY 6 <21 ng/L Performed By: #### CBCA, CMP , [id number] #### [facility] ([id number]) [address] [place] [address], [place] [address] XR SCAPULA LEFT 2 VIEWS Observed: 2023 3:22 PM Status: F Source: THE [facility] SYSTEM EXAMINATION: XR SCAPULA LEFT 2 VIEWSPRO/LT 06/22/2024 04:02 PM CLINICAL HISTORY: f/u nonop scapula fracture ASSOCIATED DIAGNOSIS: Closed displaced fracture of body of left scapula, initial encounter ORDERING PROVIDER: KAYODE TEJEDA NOTE: COMPARISON: XR CHEST AP OR PA 1 VIEW 05/03/2024, 8:23 AM, CT CHEST/ABD/PELVIS W/ CONTRAST 04/30/2024, 6:15 PM FINDINGS: Osteopenia which limits osseous detail. Redemonstration of mildly displaced left scapular body fracture. Radiolucent fracture line is still present, unchanged from the prior exam without significant evidence of healing. Alignment is unchanged. Mild degenerative arthritic changes of the glenohumeral joint and acromioclavicular joint. Partially visualized cardiac pacemaker. Left upper extremity midline. IMPRESSION: 1. Osteopenia which limits osseous detail. 2. Redemonstrated of a left scapular body fracture with unchanged alignment. There is no definite evidence of interval healing. 3. Mild degenerative arthritic changes of the left glenohumeral joint and acromioclavicular joint. I have reviewed this study and interpretation with the resident and agree with the findings. Left scapula MACRO: None I have personally reviewed the images and agree with the resident's interpretation. XR PELVIS INLET OUTLET 2 VIEWS Observed: 06/23/2024 2:05 PM Status: F Source: THE [facility] SYSTEM EXAMINATION: XR PELVIS INLET OUTLET 2 VIEWS 06/22/2024 04:02 PM CLINICAL HISTORY: f/u pelvis fractures ASSOCIATED DIAGNOSIS: Multiple fractures of pelvis with unstable disruption of pelvic ring, initial encounter for closed fracture (HCC) ORDERING PROVIDER: CHRISTOPHER DIAN TECHNOLOGISTS NOTE: COMPARISON: XR PELVIS SINGLE VIEW 05/02/2024, 1:18 PM FINDINGS: Status post ORIF of fixation of bilateral SI joints with a single screw. The hardware is intact. The alignment is anatomical. The previously described fracture of the right pubic rami are not visible. IMPRESSION: MACRO: None XR FEMUR RIGHT MINIMUM 2 VIEWS Observed: 06/23/2024 1:55 PM Status: F Source: THE [facility] EXAMINATION: XR FEMUR RIGHT MINIMUM 2 VIEWSPRO/RT 06/22/2024 04:01 PM CLINICAL HISTORY: f/u IMN ASSOCIATED DIAGNOSIS: Closed displaced spiral fracture of shaft of right femur with routine healing, subsequent encounter ORDERING PROVIDER: KAYODE BIGGS TECHNOLOGISTS NOTE: COMPARISON: CT FEMUR RIGHT W/O CONTRAST 04/30/2024, 6:15 PM IMPRESSION: Status post ORIF with intramedullary pin in the right femur fixed in place by multiple screws. The hardware is intact. The alignment is anatomical. Right femur MACRO: None PROGRESS NOTES Observed: 06/22/2024 4:27 PM Status: COMPLETED Source: [facility] Follow Up Note History: This is a 59-year-old male with a medical history significant for an elevated BMI of 45.8, end-stage renal disease on dialysis, hypertension, type 2 diabetes, chronic systolic congestive heart failure, atrial fibrillation with pacemaker who is now 6 weeks status post non operative management of a closed, left scapular body fracture and intramedullary rodding of a comminuted right distal femur fracture and percutaneous fixation of posterior pelvic ring fracture that occurred after he fell from a height of roughly 6 ft. The patient has been residing in nursing facility. He was recently admitted to another hospital for an infection on the left lower extremity. The patient has been nonweightbearing on the bilateral lower extremities. His pain is well controlled and improving with regards to the left upper extremity, pelvis and right lower extremity. Physical exam: General: Well-appearing and no acute distress Gait: Nonweightbearing bilateral lower extremities Left upper extremity: Skin is intact. Nontender to palpation over the scapula. Motor intact for the biceps, triceps, AIN, PIN and ulnar nerve. Sensation is intact to light touch for the axillary, median, radial and ulnar nerves. Palpable radial pulse. Pelvis: Incision is healed without any erythema drainage. Left lower extremity: Incisions have healed. There is no erythema or drainage. No signs or symptoms of DVT. Motor intact for the quadriceps, hamstrings, tibialis anterior, gastrocnemius, EHL and FHL. Sensation is intact to light touch for the tibial, sural, saphenous, superficial peroneal and deep peroneal nerves. The foot is warm and well perfused. Knee range of motion: Active extension to 0??? and flexion to 90??? Imaging: An AP and orthogonal view of the left scapula; an AP and inlet and outlet views of the pelvis; and an AP and lateral x-ray of the right femur were ordered and obtained today in clinic. Upon review, there is a fracture of the scapular body. Fracture line is visible. Alignment is acceptable. There is screw fixation of the posterior pelvis. The overall morphology of the pelvic ring remains intact. Callus formation is present. His intramedullary gentry within the right femur. No interval callus formation is noted. There has been a slight translation of the articular segment laterally when compared to the intraoperative fluoroscopic views. Alignment is acceptable. No failure of the implants. Assessment: This is a 59-year-old male who is now 6 weeks status post non operative management of a closed, left scapular body fracture and percutaneous fixation of the posterior pelvis and intramedullary rodding of the right femur. No signs or symptoms of infection on exam. Plan: Today, I advance his weight-bearing status to weight-bearing as tolerated on the bilateral lower extremities. He is weight-bearing as tolerated for the left upper extremity. I have instructed the nursing facility to perform physical therapy daily. Continue with current pain regimen. I will see him back in clinic in 6 weeks with a new AP pelvis with inlet and outlet views and new right femur x-rays. Kayode Biggs MD Orthopaedic Trauma Surgeon [facility] PATIENT INSTRUCTIONS Observed: 4 4:23 PM Status: COMPLETED Source: [facility] 1. Weightbearing as tolerate d left upper extremity and bilateral lower extremities 2. Work with physical therapy daily 3. Return to clinic in 6 weeks PROGRESS NOTES Observed: 06/21/2024 4:56 PM Status: COMPLETED Source: [facility] Progress Note: Postoperative Clinic Visit after Trauma Amado Tran is a 59 year old male who presents to clinic after admission to the trauma service on 04/30/2024 after a fall from a height Injuries included: Closed displaced spiral fracture of shaft of right femur Multiple fractures of pelvis with unstable disruption of pelvic ring, initial encounter for closed fracture (HCC) Closed displaced fracture of body of left scapula Fracture of multiple ribs of both sides Closed fracture of transverse process of lumbar vertebra Patient was discharged to SNF on 05/15/2024 Follow-up plan at the time of discharge: - Follow up with Cardiology at [facility] for PPM extraction. - Follow up with Ortho (Dr. Biggs) in 2-3 weeks for post-operative evaluation - Follow up with Ortho-Spine (Dr. Johnson) in 2 weeks - Follow up with Endocrinology in 4 weeks for repeat thyroid function tests - Follow up with Nephrology - Follow up with primary care provider regarding recent admission and incidental findings Today: The patient is doing well at his SNF. He has no acute complaints related to his rib fractures. He has been breathing well off of all oxygen. Physical Exam Patient in no distress Abdomen soft, non-distended, nontender Incisions are clean/dry/intact A/P: - Patient doing well - Followup appointments discussed with patient -he has not scheduled any of these appointments -our team will help coordinate - patient has no other follow up needs from trauma surgery team - No need to return to clinic unless new issues arise Yoselyn Haines MD TELEPHONE ENCOUNTER Observed: 06/19/2024 3:10 PM Status: COMPLETED Source: THE [facility] Pt is @ a SNF in [facility], has a f/u w/ Dr Biggs next week, Saturday06/22/24 but also needs f/u for spine fx. Can you put xray orders in for what you need to check on fx for him to get when he is here, then possibly schedule f/u w/you at a later date? FOLLOW-UP Observed: 06/16/2024 9:20 AM Status: COMPLETED Source: [facility] [id number] Juanpablo Tran 1964 M Date Provider Department Center 06/16/2024 129-CELESTINO PAK [email or web address] [[email or web address] Family History Problem Relation Age of Onset Breast cancer Mother Lung cancer Father Family Status - Relation Status Age at Mother Father Level of Service:61441 [place] OFFICE/OUTPATIENT ESTABLISHED MOD MDM 30 MIN PROGRESS Observed: 06/16/2024 9:20 AM Status: COMPLETED Source: [facility] Division of Infectious Disea ses - Outpatient Clinic Note Patient name: Juanpablo Tran Patient Today's Date and Time: 06/16/2024, 12:39 PM Primary Care Physician: Rc Rojas MD Reason for consultation / Chief complaint: Bloodstream infection History of Present Illness: This is a 59-year-old male patient who was initially admitted on May 20, 2024. The patient had recently suffered a fall from 6 feet and had multiple traumatic injuries. He had been hospitalized at [facility] from April 30 through May 15, 2024. He had undergone repair of multiple orthopedic fractures. He had been discharged to a rehab facility but presented back to the hospital due to a left buttock wound that was found to be draining copious purulent fluid. Blood cultures were obtained on admission that showed Enterococcus faecalis that was ampicillin susceptible. The patient was evaluated and found to have a fluid collection in the right calf. A CT obtained did not show any abscess or hardware involvement concerning for deep infection. A wound culture obtained from the site showed Enterococcus faecalis. The patient underwent a CT of the abdomen and pelvis that showed small locules of gas along the medial aspect of the left thigh/gluteal crease with mild surrounding fat stranding. A wound culture obtained showed VRE and Proteus. General surgery evaluated the patient, and there were no concerns for necrotizing fasciitis. The patient does have a right upper extremity fistula, but there was no current evidence for infection. A EDWARD was obtained that showed fibrinous material on the pacemaker lead, and it was unable to exclude fibrinous material versus a small vegetation. Electrophysiology cardiology reviewed the EDWARD, and they felt that the stranding on the lead was secondary to a prior clot with subsequent organization. The patient was discharged with intravenous daptomycin that would conclude on June 07, 2024 and oral Augmentin that would conclude on June 05, 2024. The patient is completing a hospital follow-up with our service today to evaluate for any change of symptoms. He reports he completed his treatment as prescribed. He did not experience any side effects from the treatment. He denied having any fevers, chills, chest pain, shortness of breath, abdominal pain, nausea, vomiting, or diarrhea. He is present today from his [facility] facility.He reports the wound on his right lower extremity has healed. He denied having any significant pain of his lower extremities. He does report persistent pain of his rib cage. He reports he was told by his facility that the left buttock wound has been healing well. He has been receiving dialysis through a fistula in the right upper extremity, and he reports this has been functioning well. Past Medical History: Past Medical History: Diagnosis Date Atrial fibrillation (CMS/HCC) CHF (congestive heart failure) (CMS/HCC) Chronic kidney disease Coronary artery disease Diabetes mellitus (CMS/HCC) Hyperlipidemia Hypertension Primary cardiomyopathy (CMS/HCC) Sleep apnea Past Surgical History: Past Surgical History: Procedure Laterality Date CARDIAC CATHETERIZATION CARDIOVERSION Medications: Social History: Social History Socioeconomic History Marital status: Single Spouse name: Not on file Number of children: Not on file Years of education: Not on file Highest education level: Not on file Occupational History Not on file Tobacco Use Smoking status: Never Smokeless tobacco: Never Substance and Sexual Activity Alcohol use: Yes Drug use: Not on file Sexual activity: Not on file Other Topics Concern Not on file Social History Narrative Not on file Social Determinants of Health Financial Resource Strain: Low Risk (04/01/2024) Received from [facility] Overall Financial Resource Strain (CARDIA) Difficulty of Paying Living Expenses: Not very hard Food Insecurity: No Food Insecurity (05/20/2024) Received from [facility] Hunger Screening Within the past 12 months we worried whether our food would run out before we got money to buy more.: Never True Within the past 12 months the food we bought just didn't last and we didn't have money to get more.: Never True Transportation Needs: No Transportation Needs (05/20/2024) [email or web address] Lack of Transportation (Medical): No Lack of Transportation (Non-Medical): No Physical Activity: Insufficiently Active (04/01/2024) Received from [facility] Exercise Vital Sign Days of Exercise per Week: 1 day Minutes of Exercise per Session: 10 min Stress: Stress Concern Present (04/01/2024) Received from [facility] - Occupational Stress Questionnaire Feeling of Stress : To some extent Social Connections: Moderately Isolated (04/01/2024) Received from [facility] Social Connection and Isolation Panel [NHANES] Frequency of Communication with Friends and Family: More than three times a week Frequency of Social Gatherings with Friends and Family: More than three times a week Attends Cheondoism Services: Never Active Member of Clubs or Organizations: Yes Attends Club or Organization Meetings: More than 4 times per year Marital Status: Never Intimate Partner Violence: Unknown (04/30/2024) Received from [facility] Humiliation, Afraid, Rape, and Kick questionnaire Fear of Current or Ex-Partner: Not on file Emotionally Abused: No Physically Abused: Not on file Sexually Abused: Not on file Housing Stability: Low Risk (05/20/2024) Received from [email or web address] [place] Housing Instability Are you worried or concerned that in the next two months you may not have stable housing that you own, rent or stay in as a part of a household?: No Family History: Family History Problem Relation Name Age of Onset Breast cancer Mother Lung cancer Father Immunization History: Immunization History Administered Date(s) Administered Moderna 12 YR UP Vaccine BiValent Booster 09/24/2020, 10/22/2020 Tdap 04/30/2024 Allergies: No Known Allergies Review of Systems: General: No fevers or chills. Eyes: No double vision or blurry vision. ENT: No sore throat or runny nose. Cardiovascular: No chest pain or palpitations. Lung: No shortness of breath or cough. Abdomen: No nausea, vomiting, diarrhea, or abdominal pain. Genitourinary: No increased urinary frequency, or dysuria. Musculoskeletal: Bilateral rib pain. Hematologic: No bleeding or bruising. Neurologic: No headache, weakness, numbness, or tingling. Objective Physical Examination: Vitals: 06/16/24 0942 BP: 106/68 Pulse: 70 Resp: 14 SpO2: 90% General Appearance: awake, alert, oriented, in no acute distress Lungs: Normal expansion. Clear to auscultation. No rales, rhonchi, or wheezing. Heart: Heart sounds are normal. Regular rate and rhythm without murmur, gallop or rub. Abdomen: Soft, non-tender, normal bowel sounds; no bruits, organomegaly or masses. Skin: No rash. The left buttock wound was unable to be visualized due to patient immobility and positioning. Psych exam: alert,oriented, in NAD with a full range of affect, normal behavior and no psychotic features Impression and Recommendations: 1. Bacteremia This is a patient who was hospitalized and found to be suffering from bacteremia secondary to Enterococcus faecalis. He was also found to have fibrinous material on the pacemaker lead. The patient was discharged with intravenous daptomycin and oral Augmentin. It was planned for the daptomycin to conclude on June 07, 2024 and for the Augmentin to conclude on June 05, 2024. He reports he completed both treatments without any side effects. He denied having any current symptoms of infection. Lab work obtained on June 13, 2024 did not show any leukocytosis. On examination, there are no current signs of infection. We were unable to visualize his left buttock wound due to patient immobility. At this point in time, we will plan for the patient to continue off of intravenous antibiotic therapy, but due to the retained pacemaker, fistula, and hardware in the lower extremities, it is felt best to maintain him on suppression therapy. We will offer treatment with oral amoxicillin. He will likely need to stay on this lifelong. We will also plan to obtain surveillance blood cultures 2 weeks off of intravenous antibiotic therapy to ensure there is no persistent infection. We will follow-up with him in 1 month for further evaluation. He was in agreement with this plan. - amoxicillin (Amoxil) 250 mg capsule; Take 1 capsule (250 mg) by mouth every 12 (twelve) hours. - Blood culture; Future - Blood culture; Future 2. Enterococcus faecalis infection Treatment as above. The pathogen was ampicillin susceptible. - amoxicillin (Amoxil) 250 mg capsule; Take 1 capsule (250 mg) by mouth every 12 (twelve) hours. - Blood culture; Future - Blood culture; Future 3. Open wound of right lower extremity, sequela On examination today, there are no signs of infection at this site. - amoxicillin (Amoxil) 250 mg capsule; Take 1 capsule (250 mg) by mouth every 12 (twelve) hours. 4. Open wound of left buttock, sequela The patient was also found to have a left gluteal wound with signs of infection. Cultures obtained from the site had shown vancomycin-resistant Enterococcus along with Proteus. The patient reported today that we would be unable to visualize the wound due to his immobility and positioning on the stretcher. He does report the facility has told him that the area is healing well. We will plan for him to continue on oral amoxicillin, and he was recommended to contact us with any recurrent signs or symptoms of infection. 5. Proteus mirabilis infection Treatment as above. 6. VRE (vancomycin-resistant Enterococci) infection Treatment as above. 7. ESRD on hemodialysis ([facility]) The patient's antibiotic therapy has been dosed accordingly. - amoxicillin (Amoxil) 250 mg capsule; Take 1 capsule (250 mg) by mouth every 12 (twelve) hours. - Blood culture; Future - Blood culture; Future 8. Presence of retained hardware The patient has retained hardware in the pelvic and lower extremity region. He also has a fistula in the right upper extremity and a pacemaker. For this reason, it is felt best to maintain him on suppression therapy with oral amoxicillin to help prevent recurrent infection. - amoxicillin (Amoxil) 250 mg capsule; Take 1 capsule (250 mg) by mouth every 12 (twelve) hours. - Blood culture; Future - Blood culture; Future The patient was educated about new and worsening signs and symptoms of infection to monitor for and instructed to call immediately or go to the emergency department if any of these occur. Celestino Pak APRN-[facility]-Infectious Disease Please call , option 3, for any questions or concerns. This progress note was completed using a voice housekeeper supervisor system. Every effort was made to ensure accuracy; however, inadvertent computerized housekeeper supervisor errors may be present. BLOOD CULTURE Observed: 06/13/2024 5:40 PM Status: COMPLETED Source: [facility] SPECIMEN NOTES [facility] NURSE DRAW CULTURE RESULTS NO GROWTH 5 DAYS Performed By: #### [id number] # ### [facility] ([id number]) [address] [place] [address], [place] [address] CBC AND AUTO DIFF Collected: 06/13/2024 5:30 PM Status: COMPLETED Source: [facility] TYPE CODE TESTS RESULT OUT OF RANGE REFERENCE UNITS LAB WBC(LOINC) WBC COUNT 7.7 4.0-11.0 X10E9/L LAB RBC(LOINC) RBC COUNT 2.85 Low 4.10-5.70 X10E12/L LAB HGB(LOINC) HEMOGLOBIN 9.2 Low 13.0-17.0 g/dL LAB HCT(LOINC) HEMATOCRIT 27.5 Low 39-49 % LAB MCV(LOINC) MCV 97 80-100 fL LAB MCH(LOINC) MCH 32.2 27-34 pg LAB MCHC(LOINC) MCHC 33.4 32-36 g/dL LAB RDW(LOINC) RDW 20.9 High 11.5-15.0 % LAB PLTC(LOINC) PLATELET COUNT 225 150-450 X10E9 /L LAB MPV(LOINC) MPV 9.9 7-12 fL LAB NEUT(LOINC) % NEUTROPHILS 55.1 % LAB LYMP(LOINC) % LYMPHOCYTES 20.7 % LAB MONO(LOINC) % MONOCYTES 6.9 % LAB EOS(LOINC) % EOSINOPHILS 16.4 % LAB BASO(LOINC) % BASOPHILS 0.9 % LAB ANEUT(LOINC) ABSOLUTE NEUTROPHIL 4.2 1.5-6.6 X10E9/L LAB ALYMP(LOINC) ABSOLUTE LYMPHOCYTE 1.6 1.0-3.5 X10E9/L LAB AMONO(LOINC) ABSOLUTE MONOCYTE 0.5 0-0.9 X10E9/L LAB AEOS(LOINC) ABSOLUTE EOSINOPHIL 1.3 High 0.0-0.4 X10E9/L LAB ABASO(LOINC) ABSOLUTE BASOPHIL 0.1 0.0-0.2 X10E9/L Performed By: #### CBCA #### [facility] ([id number]) [address] [place] [address] BLOOD CULTURE Observed: 06/13/2024 5:30 PM Status: COMPLETED Source: [facility] SPECIMEN NOTES [facility]. [facility] NURSE DRAW CULTURE RESULTS NO GROWTH 5 DAYS Performed By: #### [id number] # ### [facility] ([id number]) [address] [place] [address] PROGRESS NOTES Observed: 06/10/2024 3:56 PM Status: COMPLETED Source: THE [facility] SYSTEM Identification was verified by patient verbalizing his name and date of . 36 Observed: 06/03/2024 3:20 PM Status: COMPLETED Source: [facility] Labs are in media BEDSIDE GLUCOSE LAB Collected: 05/28/2024 4:37 PM Status: COMPLETED Source: [facility] TYPE CODE TESTS RESULT OUT OF RANGE REFERENCE UNITS LAB BEDG(LOINC) BEDSIDE GLUCOSE LAB 168 High 65-99 mg/dL BEDSIDE GLUCOSE LAB Collected: 05/28/2024 7:11 AM Status: COMPLETED Source: [facility] TYPE CODE TESTS RESULT OUT OF RANGE REFERENCE UNITS LAB BEDG(LOINC) BEDSIDE GLUCOSE LAB 143 High 65-99 mg/dL CBC AND AUTO DIFF Collected: 05/28/2024 5:32 AM Status: COMPLETED Source: [facility] TYPE CODE TESTS RESULT OUT OF RANGE REFERENCE UNITS LAB WBC(LOINC) WBC COUNT 7.6 4.0-11.0 X10E9/L LAB RBC(LOINC) RBC COUNT 2.66 Low 4.10-5.70 X10E12/L LAB HGB(LOINC) HEMOGLOBIN 8.1 Low 13.0-17.0 g/dL LAB HCT(LOINC) HEMATOCRIT 25.2 Low 39-49 % LAB MCV(LOINC) MCV 95 80-100 fL LAB MCH(LOINC) MCH 30.3 27-34 pg LAB MCHC(LOINC) MCHC 32.0 32-36 g/dL LAB RDW(LOINC) RDW 19.5 High 11.5-15.0 % LAB PLTC(LOINC) PLATELET COUNT 247 150-450 X10E9 /L LAB MPV(LOINC) MPV 9.2 7-12 fL LAB NEUT(LOINC) % NEUTROPHILS 69.2 % LAB LYMP(LOINC) % LYMPHOCYTES 16.0 % LAB MONO(LOINC) % MONOCYTES 8.8 % LAB EOS(LOINC) % EOSINOPHILS 4.9 % LAB BASO(LOINC) % BASOPHILS 1.1 % LAB ANEUT(LOINC) ABSOLUTE NEUTROPHIL 5.3 1.5-6.6 X10E9/L LAB ALYMP(LOINC) ABSOLUTE LYMPHOCYTE 1.2 1.0-3.5 X10E9/L LAB AMONO(LOINC) ABSOLUTE MONOCYTE 0.7 0-0.9 X10E9/L LAB AEOS(LOINC) ABSOLUTE EOSINOPHIL 0.4 0.0-0.4 X10E9/L LAB ABASO(LOINC) ABSOLUTE BASOPHIL 0.1 0.0-0.2 X10E9/L LAB STOM(LOINC) STOMATOCYTE 1+ Abnormal NONE Performed By: #### 73078-7, CMP, CBCA, 2777-1 #### [facility] ([id number]) [address], [address] [place] [address] COMPREHENSIVE METABOLIC PANEL Collected: 2023 5:32 AM Status: COMPLETED Source: [facility] TYPE CODE TESTS RESULT OUT OF RANGE REFERENCE UNITS LAB NA(LOINC) SODIUM 133 Low 134-146 mmol/L LAB K(LOINC) POTASSIUM 4.4 3.5-5.0 mmol/L LAB CL(LOINC) CHLORIDE 98 98-109 mmol/L LAB CO2(LOINC) CARBON DIOXIDE 25 22-32 mmol/L LAB AGAP(LOINC) ANION GAP 10 5-15 mmol/L LAB BUN(LOINC) BLOOD UREA NITROGEN 26 High 5-23 mg/dL LAB CRET(LOINC) CREATININE 3.82 High 0.60-1.30 mg/dL Result Comment: METHOD TRACE ABLE TO IDMS STANDARD LAB GLU(LOINC) GLUCOSE 122 High 65-99 mg/dL LAB CA(LOINC) CALCIUM 8.5 8.5-10.5 mg/dL LAB TP(LOINC) TOTAL PROTEIN 5.9 Low 6.0-8.0 g/dL LAB ALB(LOINC) ALBUMIN 2.6 Low 3.2-5.3 g/dL LAB ALK(LOINC) ALKALINE PHOSPHATASE 136 High 39-130 U/L LAB AST(LOINC) AST 15 0-41 U/L LAB ALT1(LOINC) ALT 7 0-40 U/L LAB TBIL(LOINC) BILIRUBIN,TOTAL 0.5 0.3-1.2 mg/d L LAB EGFR(LOINC) eGFR (CKD-EPI) NON-RACE DEPENDENT 17 Low >59 ml/min/1 .73sq.m Result Comment: Reported eGFR is based on the CKD-EPI 2020 equation that does not use a race coefficient. Performed By: #### 27883-9, CMP, CBCA, 2777-1 #### [facility] ([id number]) [address], [address] [place] [address] MAGNESIUM Collected: 05/28/2024 5:32 AM S tatus: COMPLETED Source: [facility] TYPE CODE TESTS RESULT OUT OF RANGE REFERENCE UNITS LAB MG(LOINC) MAGNESIUM 1.9 1.8-2.6 mg/dL Performed By: #### 74404-1, CMP, CBCA, 2777-1 #### [facility] ([id number]) [address] [place] [address], [address] [place] [address] PHOSPHORUS Collected: 05/28/2024 5:32 AM S tatus: COMPLETED Source: [facility] TYPE CODE TESTS RESULT OUT OF RANGE REFERENCE UNITS LAB PHOS(LOINC) PHOSPHORUS 3.5 2.4-4.9 mg/dL Performed By: #### 96600-4, CMP, CBCA, 2777-1 #### [facility] ([id number]) [address] [place] [address], [address] [place] [address] IONIZED CALCIUM Collected: 05/28/2024 5:32 AM Status: COMPLETED Source: [facility] TYPE [facility] TESTS RESULT OUT OF RANGE REFERENCE UNITS LAB ICA([facility]) IONIZED CALCIUM 4.6 4.5-5.3 mg/dL Performed By: #### 65351-2 # ### [facility] ([id number]) [address] [place] [address], [address] [place] [address] BEDSIDE GLUCOSE LAB Collected: 05/27/2024 9:24 PM Status: COMPLETED Source: [facility] TYPE CODE TESTS RESULT OUT OF RANGE REFERENCE UNITS LAB BEDG([facility]) BEDSIDE GLUCOSE LAB 226 High 65-99 mg/dL BEDSIDE GLUCOSE LAB Collected: 05/27/2024 4:18 PM Status: COMPLETED Source: [facility] TYPE CODE TESTS RESULT OUT OF RANGE REFERENCE UNITS LAB BEDG([facility]) BEDSIDE GLUCOSE LAB 209 High 65-99 mg/dL BEDSIDE GLUCOSE LAB Collected: 05/27/2024 12:58 PM Status: COMPLETED Source: [facility] TYPE CODE TESTS RESULT OUT OF RANGE REFERENCE UNITS LAB BEDG([facility]) BEDSIDE GLUCOSE LAB 106 High 65-99 mg/dL CBC AND AUTO DIFF Collected: 05/27/2024 8:00 AM Stat us: COMPLETED Source: [facility] TYPE CODE TESTS RESULT OUT OF RANGE REFERENCE UNITS LAB WBC(LOINC) WBC COUNT 7.4 4.0-11.0 X10E9/L LAB RBC(LOINC) RBC COUNT 2.54 Low 4.10-5.70 X10E12/L LAB HGB(LOINC) HEMOGLOBIN 8.1 Low 13.0-17.0 g/dL LAB HCT(LOINC) HEMATOCRIT 23.8 Low 39-49 % LAB MCV(LOINC) MCV 94 80-100 fL LAB MCH(LOINC) MCH 31.9 27-34 pg LAB MCHC(LOINC) MCHC 34.0 32-36 g/dL LAB RDW(LOINC) RDW 19.3 High 11.5-15.0 % LAB PLTC(LOINC) PLATELET COUNT 230 150-450 X10E9 /L LAB MPV(LOINC) MPV 9.2 7-12 fL LAB MYEL(LOINC) MYELOCYTE 1.0 % LAB META(LOINC) METAMYELOCYTE 4.0 % LAB BAND(LOINC) BAND 2.0 % LAB NEUTM(LOINC) SEG NEUTROPHIL 61.0 % LAB LYMM(LOINC) LYMPHOCYTE 19.0 % LAB MONOM(LOINC) MONOCYTE 5.0 % LAB EOSM(LOINC) EOSINOPHIL 7.0 % LAB BASOM(LOINC) BASOPHIL 1.0 % LAB ANEUTM(LOINC) ABSOLUTE NEUTROPHILS 4.6 1.5-6.6 X10E9/L LAB ALYMM(LOINC) ABSOLUTE LYMPHOCYTE 1.4 1.0-3.5 X10E9/L LAB AMONOM(LOINC) ABSOLUTE MONOCYTES 0.4 0-0.9 X10E9/L LAB AEOSM(LOINC) ABSOLUTE EOSINOPHIL 0.5 High 0.0-0.4 X10E9/L LAB ABASOM(LOINC) ABSOLUTE BASOPHIL 0.1 0.0-0.2 X10E9/L LAB POLY(LOINC) POLYCHROMASIA 1+ Abnormal NONE LAB STOM(LOINC) STOMATOCYTE 2+ Abnormal NONE Performed By: #### 2777-1, C BCA, CMP, 43125-3 #### [facility] ([id number]) [address], [address] [place] [address] COMPREHENSIVE METABOLIC PANEL Collected: 2023 8:00 AM Status: COMPLETED Source: [facility] TYPE CODE TESTS RESULT OUT OF RANGE REFERENCE UNITS LAB NA(LOINC) SODIUM 130 Low 134-146 mmol/L LAB K(LOINC) POTASSIUM 4.5 3.5-5.0 mmol/L LAB CL(LOINC) CHLORIDE 94 Low 98-109 mmol/L LAB CO2(LOINC) CARBON DIOXIDE 26 22-32 mmol/L LAB AGAP(LOINC) ANION GAP 10 5-15 mmol/L LAB BUN(LOINC) BLOOD UREA NITROGEN 39 High 5-23 mg/dL LAB CRET(LOINC) CREATININE 4.94 High 0.60-1.30 mg/dL Result Comment: METHOD TRACE ABLE TO IDMS STANDARD LAB GLU(LOINC) GLUCOSE 132 High 65-99 mg/dL LAB CA(LOINC) CALCIUM 8.5 8.5-10.5 mg/dL LAB TP(LOINC) TOTAL PROTEIN 6.1 6.0-8.0 g/dL LAB ALB(LOINC) ALBUMIN 2.7 Low 3.2-5.3 g/dL LAB ALK(LOINC) ALKALINE PHOSPHATASE 137 High 39-130 U/L LAB AST(LOINC) AST 18 0-41 U/L LAB ALT1(LOINC) ALT 10 0-40 U/L LAB TBIL(LOINC) BILIRUBIN,TOTAL 0.6 0.3-1.2 mg/d L LAB EGFR(LOINC) eGFR (CKD-EPI) NON-RACE DEPENDENT 13 Low >59 ml/min/1 .73sq.m Result Comment: Reported eGFR is based on the CKD-EPI 2020 equation that does not use a race coefficient. Performed By: #### 2777-1, C BCA, CMP, 88877-4 #### [facility] ([id number]) [address], [address] [place] [address] MAGNESIUM Collected: 05/27/2024 8:00 AM S tatus: COMPLETED Source: [facility] TYPE CODE TESTS RESULT OUT OF RANGE REFERENCE UNITS LAB MG(LOINC) MAGNESIUM 2.0 1.8-2.6 mg/dL Performed By: #### 2777-1, C BCA, CMP, 81202-1 #### [facility] ([id number]) [address] [place] [address] PHOSPHORUS Collected: 05/27/2024 8:00 AM S tatus: COMPLETED Source: [facility] TYPE CODE TESTS RESULT OUT OF RANGE REFERENCE UNITS LAB PHOS(LOINC) PHOSPHORUS 4.0 2.4-4.9 mg/dL Performed By: #### 2777-1, C BCA, CMP, 68797-5 #### [facility] ([id number]) [address] [place], [place] [id number] IONIZED CALCIUM Collected: 05/27/2024 8:00 AM Status: COMPLETED Source: [facility] TYPE [facility] TESTS RESULT OUT OF RANGE REFERENCE UNITS LAB ICA(LOINC) IONIZED CALCIUM 4.6 4.5-5.3 mg/dL Performed By: #### 26171-5 # ### [facility] ([id number]) [address] [place] [address] ANTI HBS QUANT. Collected: 05/27/2024 8:00 AM Status: COMPLETED Source: [facility] TYPE [facility] TESTS RESULT OUT OF RANGE REFERENCE UNITS LAB AHBSQ(LOINC) Anti HBs quant. 12.39 mIU/mL Result Comment: Vaccinated: >=12mIU/mL, Positive (Immune) Unvaccinated: <8mIU/mL, Negative (Not Immune) 8-11.99 mIU/mL: Indeterminate, (Considered Not Immune) Performed By: #### 5193-8, 5 196-1 #### [facility] ([id number]) [address] [place] [address] HEPATITIS B SURF AG Collected: 05/27/2024 8:00 AM Status: COMPLETED Source: [facility] TYPE CODE TESTS RESULT OUT OF RANGE REFERENCE UNITS LAB HBAG(LOINC) HEPATITIS B SURF AG Negative (qualifier value) NEG Performed By: #### 5193-8, 5 196-1 #### [facility] ([id number]) [address] [place] [address] BEDSIDE GLUCOSE LAB Collected: 05/26/2024 9:40 PM Status: COMPLETED Source: [facility] TYPE CODE TESTS RESULT OUT OF RANGE REFERENCE UNITS LAB BEDG(LOINC) BEDSIDE GLUCOSE LAB 174 High 65-99 mg/dL BEDSIDE GLUCOSE LAB Collected: 05/26/2024 7:11 PM Status: COMPLETED Source: [facility] TYPE CODE TESTS RESULT OUT OF RANGE REFERENCE UNITS LAB BEDG(LOINC) BEDSIDE GLUCOSE LAB 201 High 65-99 mg/dL BEDSIDE GLUCOSE LAB Collected: 05/26/2024 12:01 PM Status: COMPLETED Source: [facility] TYPE CODE TESTS RESULT OUT OF RANGE REFERENCE UNITS LAB BEDG([facility]) BEDSIDE GLUCOSE LAB 231 High 65-99 mg/dL BEDSIDE GLUCOSE LAB Collected: 05/26/2024 8:36 AM Status: COMPLETED Source: [facility] TYPE CODE TESTS RESULT OUT OF RANGE REFERENCE UNITS LAB BEDG(INC) BEDSIDE GLUCOSE LAB 169 High 65-99 mg/dL CBC AND AUTO DIFF Collected: 05/26/2024 6:49 AM Stat us: COMPLETED Source: [facility] TYPE CODE TESTS RESULT OUT OF RANGE REFERENCE UNITS LAB WBC(LOINC) WBC COUNT 8.1 4.0-11.0 X10E9/L LAB RBC(LOINC) RBC COUNT 2.92 Low 4.10-5.70 X10E12/L LAB HGB(LOINC) HEMOGLOBIN 8.9 Low 13.0-17.0 g/dL LAB HCT(LOINC) HEMATOCRIT 27.7 Low 39-49 % LAB MCV(LOINC) MCV 95 80-100 fL LAB MCH(LOINC) MCH 30.6 27-34 pg LAB MCHC(LOINC) MCHC 32.2 32-36 g/dL LAB RDW(LOINC) RDW 19.2 High 11.5-15.0 % LAB PLTC(LOINC) PLATELET COUNT 271 150-450 X10E9 /L LAB MPV(LOINC) MPV 9.3 7-12 fL LAB MYEL(LOINC) MYELOCYTE 5.0 % LAB META(LOINC) METAMYELOCYTE 4.0 % LAB NEUTM(LOINC) SEG NEUTROPHIL 58.0 % LAB LYMM(LOINC) LYMPHOCYTE 19.0 % LAB MONOM(LOINC) MONOCYTE 4.0 % LAB EOSM(LOINC) EOSINOPHIL 9.0 % LAB BASOM(LOINC) BASOPHIL 1.0 % LAB ANEUTM(LOINC) ABSOLUTE NEUTROPHILS 4.8 1.5-6.6 X10E9/L LAB ALYMM(LOINC) ABSOLUTE LYMPHOCYTE 1.5 1.0-3.5 X10E9/L LAB AMONOM(LOINC) ABSOLUTE MONOCYTES 0.3 0-0.9 X10E9/L LAB AEOSM(LOINC) ABSOLUTE EOSINOPHIL 0.7 High 0.0-0.4 X10E9/L LAB ABASOM(LOINC) ABSOLUTE BASOPHIL 0.1 0.0-0.2 X10E9/L LAB HYPO(LOINC) HYPOCHROMIA 1+ Abnormal NONE LAB FRAG(LOINC) FRAGMENT 1+ Abnormal NONE Performed By: #### 2777-1, C BCA, CMP, 2157-6 #### [facility] ([id number]) [address], [address] [place] [address] COMPREHENSIVE METABOLIC PANEL Collected: 2023 6:49 AM Status: COMPLETED Source: [facility] TYPE CODE TESTS RESULT OUT OF RANGE REFERENCE UNITS LAB NA(LOINC) SODIUM 131 Low 134-146 mmol/L LAB K(LOINC) POTASSIUM 4.6 3.5-5.0 mmol/L LAB CL(LOINC) CHLORIDE 95 Low 98-109 mmol/L LAB CO2(LOINC) CARBON DIOXIDE 27 22-32 mmol/L LAB AGAP(LOINC) ANION GAP 9 5-15 mmol/L LAB BUN(LOINC) BLOOD UREA NITROGEN 30 High 5-23 mg/dL LAB CRET(LOINC) CREATININE 3.88 High 0.60-1.30 mg/dL Result Comment: METHOD TRACE ABLE TO IDMS STANDARD LAB GLU(LOINC) GLUCOSE 144 High 65-99 mg/dL LAB CA(LOINC) CALCIUM 8.4 Low 8.5-10.5 mg/dL LAB TP(LOINC) TOTAL PROTEIN 6.1 6.0-8.0 g/dL LAB ALB(LOINC) ALBUMIN 2.6 Low 3.2-5.3 g/dL LAB ALK(LOINC) ALKALINE PHOSPHATASE 154 High 39-130 U/L LAB AST(LOINC) AST 27 0-41 U/L LAB ALT1(LOINC) ALT 10 0-40 U/L LAB TBIL([facility]) BILIRUBIN,TOTAL 0.6 0.3-1.2 mg/d L LAB EGFR(LOINC) eGFR (CKD-EPI) NON-RACE DEPENDENT 17 Low >59 ml/min/1 .73sq.m Result Comment: Reported eGFR is based on the CKD-EPI 2020 equation that does not use a race coefficient. Performed By: #### 2777-1, C BCA, CMP, 2156-12 #### [facility] ([id number]) [address] [place] [address], [address] [place] [id number] PHOSPHORUS Collected: 05/26/2024 6:49 AM S tatus: COMPLETED Source: [facility] TYPE CODE TESTS RESULT OUT OF RANGE REFERENCE UNITS LAB PHOS([facility]) PHOSPHORUS 3.2 2.4-4.9 mg/dL Performed By: #### 2777-1, C BCA, CMP, 2156-12 #### [facility] ([id number]) [address] [place] [address], [address] [place] [id number] CPK Collected: 05/26/2024 6:49 AM S tatus: COMPLETED Source: [facility] TYPE CODE TESTS RESULT OUT OF RANGE REFERENCE UNITS LAB CPK([facility]) CPK 19 Low 24-195 U/L Performed By: #### 2777-1, C BCA, CMP, 2156-12 #### [facility] ([id number]) [address] [place] [address], [address] [id number] BEDSIDE GLUCOSE LAB Collected: 05/25/2024 9:02 PM Status: COMPLETED Source: [facility] TYPE CODE TESTS RESULT OUT OF RANGE REFERENCE UNITS LAB BEDG(INC) BEDSIDE GLUCOSE LAB 172 High 65-99 mg/dL BEDSIDE GLUCOSE LAB Collected: 05/25/2024 6:32 PM Status: COMPLETED Source: [facility] TYPE CODE TESTS RESULT OUT OF RANGE REFERENCE UNITS LAB BEDG([facility]) BEDSIDE GLUCOSE LAB 143 High 65-99 mg/dL BEDSIDE GLUCOSE LAB Collected: 05/25/2024 11:30 AM Status: COMPLETED Source: [facility] TYPE CODE TESTS RESULT OUT OF RANGE REFERENCE UNITS LAB BEDG(LOINC) BEDSIDE GLUCOSE LAB 195 High 65-99 mg/dL BEDSIDE GLUCOSE LAB Collected: 05/25/2024 7:54 AM Status: COMPLETED Source: [facility] TYPE CODE TESTS RESULT OUT OF RANGE REFERENCE UNITS LAB BEDG(LOINC) BEDSIDE GLUCOSE LAB 153 High 65-99 mg/dL CBC AND AUTO DIFF Collected: 05/25/2024 5:22 AM Status: COMPLETED Source: [facility] TYPE CODE TESTS RESULT OUT OF RANGE REFERENCE UNITS LAB WBC(LOINC) WBC COUNT 6.8 4.0-11.0 X10E9/L LAB RBC(LOINC) RBC COUNT 2.55 Low 4.10-5.70 X10E12/L LAB HGB(LOINC) HEMOGLOBIN 7.8 Low 13.0-17.0 g/dL LAB HCT(LOINC) HEMATOCRIT 23.7 Low 39-49 % LAB MCV(LOINC) MCV 93 80-100 fL LAB MCH(LOINC) MCH 30.6 27-34 pg LAB MCHC(LOINC) MCHC 33.0 32-36 g/dL LAB RDW(LOINC) RDW 18.7 High 11.5-15.0 % LAB PLTC(LOINC) PLATELET COUNT 220 150-450 X10E9 /L LAB MPV(LOINC) MPV 9.1 7-12 fL LAB NEUT(LOINC) % NEUTROPHILS 67.4 % LAB LYMP(LOINC) % LYMPHOCYTES 15.3 % LAB MONO(LOINC) % MONOCYTES 8.8 % LAB EOS(LOINC) % EOSINOPHILS 6.9 % LAB BASO(LOINC) % BASOPHILS 1.6 % LAB ANEUT(LOINC) ABSOLUTE NEUTROPHIL 4.5 1.5-6.6 X10E9/L LAB ALYMP(LOINC) ABSOLUTE LYMPHOCYTE 1.0 1.0-3.5 X10E9/L LAB AMONO(LOINC) ABSOLUTE MONOCYTE 0.6 0-0.9 X10E9/L LAB AEOS(LOINC) ABSOLUTE EOSINOPHIL 0.5 High 0.0-0.4 X10E9/L LAB ABASO(LOINC) ABSOLUTE BASOPHIL 0.1 0.0-0.2 X10E9/L Performed By: #### CMP, CBCA #### [facility] ([id number]) [address], [address] [place] [address] COMPREHENSIVE METABOLIC PANEL Collected: 2023 5:22 AM Status: COMPLETED Source: [facility] TYPE CODE TESTS RESULT OUT OF RANGE REFERENCE UNITS LAB NA(LOINC) SODIUM 132 Low 134-146 mmol/L LAB K(LOINC) POTASSIUM 4.7 3.5-5.0 mmol/L LAB CL(LOINC) CHLORIDE 94 Low 98-109 mmol/L LAB CO2(LOINC) CARBON DIOXIDE 26 22-32 mmol/L LAB AGAP(LOINC) ANION GAP 12 5-15 mmol/L LAB BUN(LOINC) BLOOD UREA NITROGEN 59 High 5-23 mg/dL LAB CRET(LOINC) CREATININE 5.72 High 0.60-1.30 mg/dL Result Comment: METHOD TRACE ABLE TO IDMS STANDARD LAB GLU(LOINC) GLUCOSE 152 High 65-99 mg/dL LAB CA(LOINC) CALCIUM 8.1 Low 8.5-10.5 mg/dL LAB TP(LOINC) TOTAL PROTEIN 5.5 Low 6.0-8.0 g/dL LAB ALB(LOINC) ALBUMIN 2.4 Low 3.2-5.3 g/dL LAB ALK(LOINC) ALKALINE PHOSPHATASE 132 High 39-130 U/L LAB AST(LOINC) AST 19 0-41 U/L LAB ALT1(LOINC) ALT 8 0-40 U/L LAB TBIL(LOINC) BILIRUBIN,TOTAL 0.5 0.3-1.2 mg/d L LAB EGFR(LOINC) eGFR (CKD-EPI) NON-RACE DEPENDENT 11 Low >59 ml/min/1 .73sq.m Result Comment: Reported eGFR is based on the CKD-EPI 2020 equation that does not use a race coefficient. Performed By: #### CMP, CBCA #### [facility] ([id number]) [facility], [address] [place] [address] BEDSIDE GLUCOSE LAB Collected: 05/24/2024 9:16 PM Status: COMPLETED Source: [facility] TYPE CODE TESTS RESULT OUT OF RANGE REFERENCE UNITS LAB BEDG(LOINC) BEDSIDE GLUCOSE LAB 250 High 65-99 mg/dL BEDSIDE GLUCOSE LAB Collected: 05/24/2024 5:29 PM Status: COMPLETED Source: [facility] TYPE CODE TESTS RESULT OUT OF RANGE REFERENCE UNITS LAB BEDG(LOINC) BEDSIDE GLUCOSE LAB 171 High 65-99 mg/dL BEDSIDE GLUCOSE LAB Collected: 05/24/2024 11:50 AM Status: COMPLETED Source: [facility] TYPE CODE TESTS RESULT OUT OF RANGE REFERENCE UNITS LAB BEDG(LOINC) BEDSIDE GLUCOSE LAB 249 High 65-99 mg/dL BEDSIDE GLUCOSE LAB Collected: 05/24/2024 7:57 AM Status: COMPLETED Source: [facility] TYPE CODE TESTS RESULT OUT OF RANGE REFERENCE UNITS LAB BEDG(LOINC) BEDSIDE GLUCOSE LAB 184 High 65-99 mg/dL CBC AND AUTO DIFF Collected: 05/24/2024 4:32 AM Status: COMPLETED Source: [facility] TYPE CODE TESTS RESULT OUT OF RANGE REFERENCE UNITS LAB WBC(LOINC) WBC COUNT 7.3 4.0-11.0 X10E9/L LAB RBC(LOINC) RBC COUNT 2.82 Low 4.10-5.70 X10E12/L LAB HGB(LOINC) HEMOGLOBIN 8.6 Low 13.0-17.0 g/dL LAB HCT(LOINC) HEMATOCRIT 26.4 Low 39-49 % LAB MCV(LOINC) MCV 94 80-100 fL LAB MCH(LOINC) MCH 30.4 27-34 pg LAB MCHC(LOINC) MCHC 32.4 32-36 g/dL LAB RDW(LOINC) RDW 19.4 High 11.5-15.0 % LAB PLTC(LOINC) PLATELET COUNT 268 150-450 X10E9 /L LAB MPV(LOINC) MPV 9.0 7-12 fL LAB MYEL(LOINC) MYELOCYTE 2.0 % LAB BAND(LOINC) BAND 1.0 % LAB NEUTM(LOINC) SEG NEUTROPHIL 59.0 % LAB LYMM(LOINC) LYMPHOCYTE 22.0 % LAB MONOM(LOINC) MONOCYTE 6.0 % LAB EOSM(LOINC) EOSINOPHIL 9.0 % LAB BASOM(LOINC) BASOPHIL 1.0 % LAB ANEUTM(LOINC) ABSOLUTE NEUTROPHILS 4.4 1.5-6.6 X10E9/L LAB ALYMM(LOINC) ABSOLUTE LYMPHOCYTE 1.6 1.0-3.5 X10E9/L LAB AMONOM(LOINC) ABSOLUTE MONOCYTES 0.4 0-0.9 X10E9/L LAB AEOSM(LOINC) ABSOLUTE EOSINOPHIL 0.7 High 0.0-0.4 X10E9/L LAB ABASOM(LOINC) ABSOLUTE BASOPHIL 0.1 0.0-0.2 X10E9/L LAB RBCMOR(LOINC) RBC MORPHOLOGY REVIEWED Performed By: #### CBCA, CMP #### [facility] ([id number]) [address] [place] [address] COMPREHENSIVE METABOLIC PANEL Collected: 2023 4:32 AM Status: COMPLETED Source: [facility] TYPE CODE TESTS RESULT OUT OF RANGE REFERENCE UNITS LAB NA(LOINC) SODIUM 133 Low 134-146 mmol/L LAB K(LOINC) POTASSIUM 4.3 3.5-5.0 mmol/L LAB CL(LOINC) CHLORIDE 96 Low 98-109 mmol/L LAB CO2(LOINC) CARBON DIOXIDE 28 22-32 mmol/L LAB AGAP(LOINC) ANION GAP 9 5-15 mmol/L LAB BUN(LOINC) BLOOD UREA NITROGEN 46 High 5-23 mg/dL LAB CRET(LOINC) CREATININE 4.92 High 0.60-1.30 mg/dL Result Comment: METHOD TRACE ABLE TO IDMS STANDARD LAB GLU(LOINC) GLUCOSE 148 High 65-99 mg/dL LAB CA(LOINC) CALCIUM 8.2 Low 8.5-10.5 mg/dL LAB TP(LOINC) TOTAL PROTEIN 6.0 6.0-8.0 g/dL LAB ALB(LOINC) ALBUMIN 2.6 Low 3.2-5.3 g/dL LAB ALK(LOINC) ALKALINE PHOSPHATASE 151 High 39-130 U/L LAB AST(LOINC) AST 19 0-41 U/L LAB ALT1(LOINC) ALT 8 0-40 U/L LAB TBIL(LOINC) BILIRUBIN,TOTAL 0.6 0.3-1.2 mg/d L LAB EGFR(LOINC) eGFR (CKD-EPI) NON-RACE DEPENDENT 13 Low >59 ml/min/1 .73sq.m Result Comment: Reported eGFR is based on the CKD-EPI 2020 equation that does not use a race coefficient. Performed By: #### CBCA, CMP #### [facility] ([id number]) [address] [place] [address] BEDSIDE GLUCOSE LAB Collected: 05/23/2024 8:21 PM Status: COMPLETED Source: [facility] TYPE CODE TESTS RESULT OUT OF RANGE REFERENCE UNITS LAB BEDG(LOINC) BEDSIDE GLUCOSE LAB 214 High 65-99 mg/dL FLUID CULTURE Observed: 05/23/2024 4:59 PM Status: COMPLETED Source: [facility] GRAM STAIN WHITE BLOOD CELLS PRESENT NO ORGANISMS SEEN ON CONCENTRATED SMEAR CULTURE RESULTS NO GROWTH 5 DAYS Performed By: #### 610-6 ### # [facility] ([id number]) [address] [place] [address], [address] [place] [address] AND DIFF Collected: 05/23/2024 4:59 PM Status: COMPLETED Source: [facility] TYPE CODE TESTS RESULT OUT OF RANGE REFERENCE UNITS LAB FSPC(LOINC) FLUID SPECIMEN TYPE FLUID Result Comment: RIGHT KNEE LAB BFPOLY(LOINC) FLUID NEUTROPHILS 55 % LAB BFLYM(LOINC) FLUID LYMPHOCYTE 17 % LAB PHAG(LOINC) MACROPHAGES 28 % LAB BFWBC(LOINC) NUCLEATED CELL CT 397 /uL LAB BFRBC(LOINC) [place] [address] /uL LAB FCOLR(LOINC) FLUID COLOR BENNY LAB BFAPPR(LOINC) FLUID CLARITY TURBID LAB BFC(LOINC) BODY FLUID COMMENT Synovial Fluid Reference Range Result Comment: WBC/TNC: 0-1 50/uL Neutrophils: <25% Performed By: #### BFCT #### [facility] ([id number]) [address] [place] [address], [address] [place] [address] FUNGAL CULTURE Observed: 05/23/2024 4:59 PM Status: COMPLETED Source: [facility] FUNGAL SMEAR NO FUNGAL ELEMENTS SEEN ON CONCENTRATED SMEAR CULTURE RESULTS NO FUNGUS ISOLATED AFTER 4 WEEKS Performed By: #### 580-1 ### # [facility] ([id number]) [address] [place] [address], [address] [place] [address] BEDSIDE GLUCOSE LAB Collected: 05/23/2024 4:56 PM Status: COMPLETED Source: [facility] TYPE CODE TESTS RESULT OUT OF RANGE REFERENCE UNITS LAB BEDG(LOINC) BEDSIDE GLUCOSE LAB 198 High 65-99 mg/dL BEDSIDE GLUCOSE LAB Collected: 05/23/2024 11:49 AM Status: COMPLETED Source: [facility] TYPE CODE TESTS RESULT OUT OF RANGE REFERENCE UNITS LAB BEDG(LOINC) BEDSIDE GLUCOSE LAB 170 High 65-99 mg/dL BEDSIDE GLUCOSE LAB Collected: 05/23/2024 7:49 AM Status: COMPLETED Source: [facility] TYPE CODE TESTS RESULT OUT OF RANGE REFERENCE UNITS LAB BEDG(LOINC) BEDSIDE GLUCOSE LAB 139 High 65-99 mg/dL CBC AND AUTO DIFF Collected: 05/23/2024 4:20 AM Stat us: COMPLETED Source: [facility] TYPE CODE TESTS RESULT OUT OF RANGE REFERENCE UNITS LAB WBC(LOINC) WBC COUNT 6.5 4.0-11.0 X10E9/L LAB RBC(LOINC) RBC COUNT 2.77 Low 4.10-5.70 X10E12/L LAB HGB(LOINC) HEMOGLOBIN 8.5 Low 13.0-17.0 g/dL LAB HCT(LOINC) HEMATOCRIT 26.1 Low 39-49 % LAB MCV(LOINC) MCV 94 80-100 fL LAB MCH(LOINC) MCH 30.7 27-34 pg LAB MCHC(LOINC) MCHC 32.6 32-36 g/dL LAB RDW(LOINC) RDW 19.2 High 11.5-15.0 % LAB PLTC(LOINC) PLATELET COUNT 297 150-450 X10E9 /L LAB MPV(LOINC) MPV 9.0 7-12 fL LAB NEUT(LOINC) % NEUTROPHILS 68.0 % LAB LYMP(LOINC) % LYMPHOCYTES 16.4 % LAB MONO(LOINC) % MONOCYTES 7.5 % LAB EOS(LOINC) % EOSINOPHILS 7.0 % LAB BASO(LOINC) % BASOPHILS 1.1 % LAB ANEUT(LOINC) ABSOLUTE NEUTROPHIL 4.4 1.5-6.6 X10E9/L LAB ALYMP(LOINC) ABSOLUTE LYMPHOCYTE 1.1 1.0-3.5 X10E9/L LAB AMONO(LOINC) ABSOLUTE MONOCYTE 0.5 0-0.9 X 10E9/L LAB AEOS(LOINC) ABSOLUTE EOSINOPHIL 0.5 High 0.0-0.4 X10E9/L LAB ABASO(LOINC) ABSOLUTE BASOPHIL 0.1 0.0-0.2 X 10E9/L LAB POLY(LOINC) POLYCHROMASIA 1+ Abnormal NONE Performed By: #### CMP, 4632 2-6, CBCA #### [facility] ([id number]) [facility] [place] [address] COMPREHENSIVE METABOLIC PANEL Collected: 2023 4:20 AM Status: COMPLETED Source: [facility] TYPE CODE TESTS RESULT OUT OF RANGE REFERENCE UNITS LAB NA(LOINC) SODIUM 135 134-146 mmol/L LAB K(LOINC) POTASSIUM 4.3 3.5-5.0 mmol/L LAB CL(LOINC) CHLORIDE 97 Low 98-109 mmol/L LAB CO2(LOINC) CARBON DIOXIDE 28 22-32 mmol/L LAB AGAP(LOINC) ANION GAP 10 5-15 mmol/L LAB BUN(LOINC) BLOOD UREA NITROGEN 33 High 5-23 mg/dL LAB CRET(LOINC) CREATININE 3.87 High 0.60-1.30 mg/dL Result Comment: METHOD TRACE ABLE TO IDMS STANDARD LAB GLU(LOINC) GLUCOSE 109 High 65-99 mg/dL LAB CA(LOINC) CALCIUM 8.2 Low 8.5-10.5 mg/dL LAB TP(LOINC) TOTAL PROTEIN 6.0 6.0-8.0 g/dL LAB ALB(LOINC) ALBUMIN 2.7 Low 3.2-5.3 g/dL LAB ALK(LOINC) ALKALINE PHOSPHATASE 151 High 39-130 U/L LAB AST(LOINC) AST 20 0-41 U/L LAB ALT1(LOINC) ALT 6 0-40 U/L LAB TBIL(LOINC) BILIRUBIN,TOTAL 0.6 0.3-1.2 mg/d L LAB EGFR(LOINC) eGFR (CKD-EPI) NON-RACE DEPENDENT 17 Low >59 ml/min/1 .73sq.m Result Comment: Reported eGFR is based on the CKD-EPI 2020 equation that does not use a race coefficient. Performed By: #### CMP, 2648 2-6, CBCA #### [facility] ([id number]) [address] [place] [address] METANEPHRINES FREE, P Collected: 2023 4:20 AM Status: COMPLETED Source: [facility] TYPE CODE TESTS RESULT OUT OF RANGE REFERENCE UNITS LAB NORMTP(LOINC) Normetanephri ne, Free 0.26 <0.90 nmol/L LAB METFR(LOINC) Metanephrine, Free <0.20 <0.50 nmol/L Result Comment: NOTE ADDITIONAL INFORMATION This test was developed and its performance characteristics determined by [facility] in a manner consistent with CLIA requirements. This test has not been cleared or approved by the U.S. Food and Drug Administration. Test Performed by: [facility] [place] [address] Pulp Drier Firer: Fox Snow Ph.D.; CLIA# [id number] Performed By: #### [facility], 5777 2-6, CBCA #### [facility] ([id number]) [address] [place] [address] BEDSIDE GLUCOSE LAB Collected: 05/22/2024 9:25 PM Status: COMPLETED Source: [facility] TYPE CODE TESTS RESULT OUT OF RANGE REFERENCE UNITS LAB BEDG([facility]) BEDSIDE GLUCOSE LAB 169 High 65-99 mg/dL ALDOSTERONE Collected: 05/22/2024 5:29 PM S tatus: COMPLETED Source: [facility] TYPE CODE TESTS RESULT OUT OF RANGE REFERENCE UNITS LAB ALDOS(LOINC) ALDOSTERONE 15.9 ng/dL Result Comment: NOTE INTERPRETIVE INFORMATION: Aldosterone, Serum Reference intervals for age 15 and older: Upright ......... 4.0 - 31.0 ng/dL Supine .......... Less than or equal to 16.0 ng/dL Unspecified ..... Less than or equal to 31.0 ng/dL Normal serum levels of aldosterone are dependent on the sodium intake and whether the patient is upright or supine. High sodium intake will tend to suppress serum aldosterone, whereas low sodium intake will elevate serum aldosterone. The reference intervals for serum aldosterone are based on normal sodium intake. Access complete set of age- and/or gender-specific reference intervals for this test in the [facility] Test Directory ([employer]). Performed By: [facility] [address] [place] [address] Quality Assurance Supervisor Trim: Wenceslao Massey MD, PhD CLIA Number: [id number] Performed By: #### 1763-2 ## ## [facility] ([id number]) [address] [place] [address] CATECHOLAMINES FRACTIONATED, PLASMA Collected: 05/22/2024 5:29 PM Status: COMPLETED Source: [facility] TYPE CODE TESTS RESULT OUT OF RANGE REFERENCE UNITS LAB EPIPL(LOINC) Epinephrine, Plasma <55 <=330 pmol/L Result Comment: NOTE INTERPRETIVE INFORMATION:Epinephrine Seated (15 min) less than or equal to 330 pmol/L Supine (30 min) less than or equal to 265 pmol/L LAB NOREPL(LOINC) Norepinephrine, Plasma 5775 High 7236-9140 pmol/L Result Comment: NOTE INTERPRETIVE INFORMATION: Norepinephrine Seated (15 min) 1050 - 4800 pmol/L Supine (30 min) 680 - 3100 pmol/L LAB DOPL(LOINC) Dopamine, Plasma 1131 High <=240 pmo l/L Result Comment: NOTE INTERPRETIVE INFORMATION: Dopamine Seated (15 min) less than or equal to 240 pmol/L Supine (30 min) less than or equal to 240 pmol/L LAB CATCLI(LOINC) Catecholamine Interpretation SEE NOTE Result Comment: NOTE INTERPRETIVE INFORMATION: Catecholamines Panel, Plasma Small increases in catecholamines (less than 2 times the upper reference limit) are usually the result of physiological stimuli, drugs, or improper specimen collection. Significant elevation of one or more catecholamines (2 or more times the upper reference limit) is associated with an increased probability of a neuroendocrine tumor. Measurement of plasma or urine fractionated metanephrines provides better diagnostic sensitivity than measurement of catecholamines. Lower catecholamine concentrations are observed in specimens collected from supine adults. To convert to picograms per milliliter (pg/mL), multiply the reported concentration for Dopamine by 0.153, Epinephrine by 0.183, and Norepinephrine by 0.169. Access complete set of age- and/or gender-specific reference intervals for this test in the [facility] Test Directory ([employer]). This test was developed and its performance characteristics determined by [facility]. It has not been cleared or approved by the [place] Food and Drug Administration. This test was performed in a CLIA certified laboratory and is intended for clinical purposes. Performed By: [facility] [address] [place] [address] Quality Assurance Supervisor Trim: Wenceslao Massey MD, PhD CLIA Number: [id number] Performed By: #### Charity MONTES ATCHL #### [facility] LAB ([id number]) [address] [place] [address] RENIN ACTIVITY Collected: 4 5:29 PM Status: COMPLETED Source: [facility] TYPE CODE TESTS RESULT OUT OF RANGE REFERENCE UNITS LAB RENINA(LOINC) RENIN ACTIVITY <0.1 ng/mL/hr Result Comment: NOTE INTERPRETIVE INFORMATION: Renin Activity Adult, Normal sodium diet: Supine ................. 0.2-1.6 ng/mL/hr Upright ................ 0.5-4.0 ng/mL/hr Children, Normal sodium diet, Supine: [place] (1-7 days) ..... 2.0-35.0 ng/mL/hr Cord blood ............. 4.0-32.0 ng/mL/hr 1-12 mos ............... 2.4-37.0 ng/mL/hr 13 mos-3 yrs ........... 1.7-11.2 ng/mL/hr 4-5 yrs ................ 1.0- 6.5 ng/mL/hr 6-10 yrs ............... 0.5- 5.9 ng/mL/hr 11-15 yrs .............. 0.5- 3.3 ng/mL/hr Children, normal sodium diet, Upright: 0-3 yrs ................ Not Available 4-5 yrs ................ Less than or equal to 15 ng/mL/hr 6-10 yrs ............... Less than or equal to 17 ng/mL/hr 11-15 yrs .............. Less than or equal to 16 ng/mL/hr Plasma renin activity measures enzyme ability to convert angiotensinogen to angiotensin I and is limited by the availability of angiotensinogen. Plasma renin activity is not an accurate indicator of enzyme activity when angiotensinogen is decreased. This test was developed and its performance characteristics determined by [facility]. It has not been cleared or approved by the [place] Food and Drug Administration. This test was performed in a CLIA certified laboratory and is intended for clinical purposes. Performed By: [facility] [address] [place], [place] [id number] Quality Assurance Supervisor Trim: Wenceslao Massey MD, PhD [facility] Number: [id number] Performed By: #### Charity MONTES ATC #### [facility] ([id number]) [address] [place] [address] BEDSIDE GLUCOSE LAB Collected: 05/22/2024 5:26 PM Status: COMPLETED Source: [facility] TYPE CODE TESTS RESULT OUT OF RANGE REFERENCE UNITS LAB BEDG(LOINC) BEDSIDE GLUCOSE LAB 108 High 65-99 mg/dL CT FEMUR RT W CONT Observed: 05/22/2024 9:36 AM Status: COMPLETED Source: [facility] CT FEMUR RT W CONT Clinical History and Information: Osteomyelitis Findings: Contrast: None Multidetector helical CT was performed of the right femur. Axial sagittal coronal images were reviewed. Automated exposure control was utilized. Comparison: Intramedullary gentry the right femur. The overall alignment is satisfactory. Comminuted fracture planes are in satisfactory alignment. There is no discrete erosion. Subtle layering fluid along the posterior lateral mid thigh. No discrete wall or collection of gas. Probably a postop seroma or hematoma. Mild subcutaneous edema. Mild fascial planes are intact. There is very severe vascular calcification of the SFA, popliteal, and common femoral artery. Degenerative changes medial compartment of the right knee. Right hip unremarkable.. Nondisplaced fracture of the right superior ramus. Small Dooley's cyst Impression: * Postop changes as noted above. No definite osseous erosion nor findings concerning for abscess at this time. If active infection remains consider indium 111 indium study. * Finalized by Skip Triana MD on 05/22/2024 1:[address] TIBFIB RT W CONT Observed: 05/22/2024 9:36 AM Status: COMPLETED Source: [facility] CT TIBFIB RT W CONT Clinical History and Information: Osteomyelitis Findings: Contrast: 100 MLS Omni [address] was performed of the tibia and fibula. Axial sagittal coronal images were reviewed. Automated exposure control was utilized. Comparison: Subcutaneous edema overlying the anterior lateral aspect of the lower extremity. There is no drainable fluid collection nor sign of abscess. The myofascial planes are intact. Small Dooley cyst is present. Very severe calcification of the popliteal artery, anterior, posterior tibial arteries as well as the peroneal. Patient may be at risk for vascular occlusive disease. Degenerative changes involving the knee. Otherwise no discrete erosion. No fracture nor malalignment. Impression: * Diffuse soft tissue edema without discrete abscess. * Very severe vascular calcification. * If clinical concern remains regarding osteomyelitis consider indium 111 white cell study * Finalized by Skip Triana MD on 05/22/2024 1:[address] ABDOMEN AND PELVIS W CONT Observed: 05/22/2024 9:34 AM Status: COMPLETED Source: [facility] CT ABDOMEN AND PELVIS W CONT History: Right adrenal mass Exam/Technique: Abdomen and pelvis CT imaging is performed with IV contrast. Comparison: Noncontrast CTs of the abdomen and pelvis from 05/20/2024 and 07/23/2023 Findings: Small bilateral pleural effusions are displayed, slightly larger on the left than the right. Accompanying areas of compressive atelectasis in both lower lobes. Findings Little change from the recent previous CT Ovoid relatively low density right adrenal nodule redemonstrated measuring 2.7 x 1.5 x 3.3 cm no distinct contrast enhancement displayed. Cholelithiasis redemonstrated with no associated new gallbladder abnormalities. The kidneys are atrophic. The liver, spleen, pancreas, and left adrenal display no significant abnormalities. The abdominal aorta is of normal caliber throughout its length. No bowel dilatation or other gross abnormalities of the unopacified bowel loops demonstrated. An umbilical hernia is displayed with the sac containing only fat. There is no free intraperitoneal fluid or gas, and no gross abnormal fluid collections. There are no gross abnormalities of the unopacified urinary bladder suggested. There is an incidental apparent small lipoma in the left inguinal region that is incompletely included on this study. IMPRESSION: * Right adrenal mass that is new since July remains nonspecific on this study. Recommend complete characterization with MRI with and without contrast. All CT scans at this facility use dose modulation, iterative reconstruction, and/or weight based dosing when appropriate to reduce radiation dose to as low as reasonably achievable. Finalized by Franklin Meza MD on 05/22/2024 11:15 AM BEDSIDE GLUCOSE LAB Collected: 05/22/2024 7:41 AM Status: COMPLETED Source: [facility] TYPE CODE TESTS RESULT OUT OF RANGE REFERENCE UNITS LAB BEDG(LOINC) BEDSIDE GLUCOSE LAB 145 High 65-99 mg/dL CBC AND AUTO DIFF Collected: 05/22/2024 4:51 AM Status: COMPLETED Source: [facility] TYPE CODE TESTS RESULT OUT OF RANGE REFERENCE UNITS LAB WBC(LOINC) WBC COUNT 8.4 4.0-11.0 X10E9/L LAB RBC(LOINC) RBC COUNT 2.39 Low 4.10-5.70 X10E12/L LAB HGB(LOINC) HEMOGLOBIN 7.3 Low 13.0-17.0 g/dL LAB HCT(LOINC) HEMATOCRIT 22.3 Low 39-49 % LAB MCV(LOINC) MCV 93 80-100 fL LAB MCH(LOINC) MCH 30.5 27-34 pg LAB MCHC(LOINC) MCHC 32.6 32-36 g/dL LAB RDW(LOINC) RDW 19.5 High 11.5-15.0 % LAB PLTC(LOINC) PLATELET COUNT 267 150-450 X10E9 /L LAB MPV(LOINC) MPV 9.1 7-12 fL LAB NEUT(LOINC) % NEUTROPHILS 73.0 % LAB LYMP(LOINC) % LYMPHOCYTES 12.1 % LAB MONO(LOINC) % MONOCYTES 7.8 % LAB EOS(LOINC) % EOSINOPHILS 6.3 % LAB BASO(LOINC) % BASOPHILS 0.8 % LAB ANEUT(LOINC) ABSOLUTE NEUTROPHIL 6.1 1.5-6.6 X10E9/L LAB ALYMP(LOINC) ABSOLUTE LYMPHOCYTE 1.0 1.0-3.5 X10E9/L LAB AMONO(LOINC) ABSOLUTE MONOCYTE 0.7 0-0.9 X10E9/L LAB AEOS(LOINC) ABSOLUTE EOSINOPHIL 0.5 High 0.0-0.4 X10E9/L LAB ABASO(LOINC) ABSOLUTE BASOPHIL 0.1 0.0-0.2 X10E9/L Performed By: #### CBCA, CMP , 2777-1 #### [facility] ([id number]) [address] [place] [address] COMPREHENSIVE METABOLIC PANEL Collected: 2023 4:51 AM Status: COMPLETED Source: [facility] TYPE CODE TESTS RESULT OUT OF RANGE REFERENCE UNITS LAB NA(LOINC) SODIUM 133 Low 134-146 mmol/L LAB K(LOINC) POTASSIUM 4.3 3.5-5.0 mmol/L LAB CL(LOINC) CHLORIDE 95 Low 98-109 mmol/L LAB CO2(LOINC) CARBON DIOXIDE 28 22-32 mmol/L LAB AGAP(LOINC) ANION GAP 10 5-15 mmol/L LAB BUN(LOINC) BLOOD UREA NITROGEN 47 High 5-23 mg/dL LAB CRET(LOINC) CREATININE 5.13 High 0.60-1.30 mg/dL Result Comment: METHOD TRACE ABLE TO IDMS STANDARD LAB GLU(LOINC) GLUCOSE 133 High 65-99 mg/dL LAB CA(LOINC) CALCIUM 8.1 Low 8.5-10.5 mg/dL LAB TP(LOINC) TOTAL PROTEIN 5.5 Low 6.0-8.0 g/dL LAB ALB(LOINC) ALBUMIN 2.4 Low 3.2-5.3 g/dL LAB ALK(LOINC) ALKALINE PHOSPHATASE 132 High 39-130 U/L LAB AST(LOINC) AST 14 0-41 U/L LAB ALT1(LOINC) ALT 6 0-40 U/L LAB TBIL(LOINC) BILIRUBIN,TOTAL 0.5 0.3-1.2 mg/d L LAB EGFR(LOINC) eGFR (CKD-EPI) NON-RACE DEPENDENT 12 Low >59 ml/min/1 .73sq.m Result Comment: Reported eGFR is based on the CKD-EPI 2020 equation that does not use a race coefficient. Performed By: #### CBCA, CMP , 2777-1 #### [facility] MAIN LAB ([id number]) [address] [place] [address] PHOSPHORUS Collected: 05/22/2024 4:51 AM S tatus: COMPLETED Source: [facility] TYPE CODE TESTS RESULT OUT OF RANGE REFERENCE UNITS LAB PHOS([facility]) PHOSPHORUS 3.7 2.4-4.9 mg/dL Performed By: #### CBCA, CMP , 2777-1 #### [facility] MAIN LAB ([id number]) [address] [place] [address] BEDSIDE GLUCOSE LAB Collected: 05/21/2024 9:04 PM Status: COMPLETED Source: [facility] TYPE CODE TESTS RESULT OUT OF RANGE REFERENCE UNITS LAB BEDG([facility]) BEDSIDE GLUCOSE LAB 139 High 65-99 mg/dL BEDSIDE GLUCOSE LAB Collected: 05/21/2024 4:40 PM Status: COMPLETED Source: [facility] TYPE CODE TESTS RESULT OUT OF RANGE REFERENCE UNITS LAB BEDG(INC) BEDSIDE GLUCOSE LAB 130 High 65-99 mg/dL BLOOD CULTURE Observed: 05/21/2024 12:20 PM Status: COMPLETED Source: [facility] CULTURE RESULTS NO GROWTH 5 DAYS BEDSIDE GLUCOSE LAB Collected: 05/21/2024 12:08 PM Status: COMPLETED Source: [facility] TYPE CODE TESTS RESULT OUT OF RANGE REFERENCE UNITS LAB BEDG(LOINC) BEDSIDE GLUCOSE LAB 118 High 65-99 mg/dL BLOOD CULTURE Observed: 05/21/2024 11:25 AM Status: COMPLETED Source: [facility] CULTURE RESULTS NO GROWTH 5 DAYS BEDSIDE GLUCOSE LAB Collected: 05/21/2024 7:37 AM Status: COMPLETED Source: [facility] TYPE CODE TESTS RESULT OUT OF RANGE REFERENCE UNITS LAB BEDG([facility]) BEDSIDE GLUCOSE LAB 99 65-99 mg/dL CBC AND AUTO DIFF Collected: 05/21/2024 6:40 AM Status: COMPLETED Source: [facility] TYPE CODE TESTS RESULT OUT OF RANGE REFERENCE UNITS LAB WBC(LOINC) WBC COUNT 12.1 High 4.0-11.0 X10E9/L LAB RBC(LOINC) RBC COUNT 2.49 Low 4.10-5.70 X10E12/L LAB HGB(LOINC) HEMOGLOBIN 7.5 Low 13.0-17.0 g/dL LAB HCT(LOINC) HEMATOCRIT 23.1 Low 39-49 % LAB MCV(LOINC) MCV 93 80-100 fL LAB MCH(LOINC) MCH 30.0 27-34 pg LAB MCHC(LOINC) MCHC 32.4 32-36 g/dL LAB RDW(LOINC) RDW 19.1 High 11.5-15.0 % LAB PLTC(LOINC) PLATELET COUNT 268 150-450 X10E9 /L LAB MPV(LOINC) MPV 9.3 7-12 fL LAB NEUT(LOINC) % NEUTROPHILS 83.7 % LAB LYMP(LOINC) % LYMPHOCYTES 6.9 % LAB MONO(LOINC) % MONOCYTES 5.2 % LAB EOS(LOINC) % EOSINOPHILS 3.6 % LAB BASO(LOINC) % BASOPHILS 0.6 % LAB ANEUT(LOINC) ABSOLUTE NEUTROPHIL 10.1 High 1.5-6.6 X10E9/L LAB ALYMP(LOINC) ABSOLUTE LYMPHOCYTE 0.8 Low 1.0-3.5 X10E9/L LAB AMONO(LOINC) ABSOLUTE MONOCYTE 0.6 0-0.9 X10E9/L LAB AEOS(LOINC) ABSOLUTE EOSINOPHIL 0.4 0.0-0.4 X10E9/L LAB ABASO(LOINC) ABSOLUTE BASOPHIL 0.1 0.0-0.2 X10E9/L Performed By: #### CMP, CBCA #### [facility] MAIN LAB ([id number]) [address] [place] [address] COMPREHENSIVE METABOLIC PANEL Collected: 2023 6:40 AM Status: COMPLETED Source: [facility] TYPE CODE TESTS RESULT OUT OF RANGE REFERENCE UNITS LAB NA(LOINC) SODIUM 134 134-146 mmol/L LAB K(LOINC) POTASSIUM 4.3 3.5-5.0 mmol/L LAB CL(LOINC) CHLORIDE 96 Low 98-109 mmol/L LAB CO2(LOINC) CARBON DIOXIDE 29 22-32 mmol/L LAB AGAP(LOINC) ANION GAP 9 5-15 mmol/L LAB BUN(LOINC) BLOOD UREA NITROGEN 35 High 5-23 mg/dL LAB CRET(LOINC) CREATININE 4.05 High 0.60-1.30 mg/dL Result Comment: METHOD TRACE ABLE TO IDMS STANDARD LAB GLU(LOINC) GLUCOSE 91 65-99 mg/dL LAB CA(LOINC) CALCIUM 8.5 8.5-10.5 mg/dL LAB TP(LOINC) TOTAL PROTEIN 5.9 Low 6.0-8.0 g/dL LAB ALB(LOINC) ALBUMIN 2.6 Low 3.2-5.3 g/dL LAB ALK(LOINC) ALKALINE PHOSPHATASE 141 High 39-130 U/L LAB AST(LOINC) AST 19 0-41 U/L LAB ALT1(LOINC) ALT 8 0-40 U/L LAB TBIL(LOINC) BILIRUBIN,TOTAL 0.7 0.3-1.2 mg/d L LAB EGFR(LOINC) eGFR (CKD-EPI) NON-RACE DEPENDENT 16 Low >59 ml/min/1 .73sq.m Result Comment: Reported eGFR is based on the CKD-EPI 2020 equation that does not use a race coefficient. Performed By: #### CMP, CBCA #### [facility] MA[facility] ([id number]) [address] [place] [address] BEDSIDE GLUCOSE LAB Collected: 05/20/2024 10:35 PM Status: COMPLETED Source: [facility] TYPE CODE TESTS RESULT OUT OF RANGE REFERENCE UNITS LAB BEDG(LOINC) BEDSIDE GLUCOSE LAB 92 65-99 mg/dL BEDSIDE GLUCOSE LAB Collected: 05/20/2024 4:46 PM Status: COMPLETED Source: [facility] TYPE CODE TESTS RESULT OUT OF RANGE REFERENCE UNITS LAB BEDG(LOINC) BEDSIDE GLUCOSE LAB 113 High 65-99 mg/dL MAGNESIUM Collected: 05/20/2024 2:47 PM S tatus: COMPLETED Source: [facility] TYPE CODE TESTS RESULT OUT OF RANGE REFERENCE UNITS LAB MG(LOINC) MAGNESIUM 1.9 1.8-2.6 mg/dL Performed By: #### [id number] # ### [facility] MAIN LAB ([id number]) [address] [place] [address] SUPERFICIAL WOUND CULTURE Observed: 12/2023 2:26 PM Status: COMPLETED Source: [facility] GRAM STAIN >25 WHITE BLOOD CELLS/LPF 0 SQUAMOUS EPITHELIAL CELLS/LPF MODERATE GRAM POSITIVE COCCI FEW GRAM NEGATIVE RODS CULTURE RESULTS RARE PROTEUS MIRABILIS RARE ENTEROCOCCUS FAECIUM VANCOMYCIN RESISTANT ALONG WITH RARE NORMAL SKIN ANAHI [ S = SUSCEPTIBLE R = RESISTANT I = INTERMEDIATE S-DO = Susceptible-dose dependent NS = Non-suscceptible NO = No Interpretation ] Organism: PROTEUS MIRABILIS Antibiotic Interpretation SEAN Status AMPICILLIN S <=2 F AMP/SULBACTAM S <=2/1 F CEFAZOLIN UNK <=4 F CLSI interpretive criteria for nonurinary isolates are as follows: <=2 Susceptible, 4 Intermediate, Resistant >=8. Contact Microbiology laboratory if further susceptibility testing for Cefazolin is required. CEFTRIAXONE S <=0.25 F CIPROFLOXACIN S <=0.25 F GENTAMICIN S <=1 F LEVOFLOXACIN S <=0.12 F PIPERACIL/TAZOBACTAM S <=4 F TOBRAMYCIN S <=1 F [ S = SUSCEPTIBLE R = RESISTANT I = INTERMEDIATE S-DO = Susceptible-dose dependent NS = Non-suscceptible NO = No Interpretation ] Organism: ENTEROCOCCUS FAECIUM Antibiotic Interpretation SEAN Status AMPICILLIN R >=32 F LINEZOLID S 2 F VANCOMYCIN R >=32 F [ S = SUSCEPTIBLE R = RESISTANT I = INTERMEDIATE S-DO = Susceptible-dose dependent NS = Non-suscceptible NO = No Interpretation ] Organism: ENTEROCOCCUS FAECIUM Antibiotic Interpretation SEAN Status DAPTOMYCIN S 1.5 F Performed By: #### 632-0 ### # [facility] ([id number]) [address] [place] [address] [address] [place] [address] SUPERFICIAL WOUND CULTURE Observed: 12/2023 2:20 PM Status: COMPLETED Source: [facility] GRAM STAIN 0 to 1 WHITE BLOOD CELLS/LPF 0 SQUAMOUS EPITHELIAL CELLS/LPF MODERATE GRAM POSITIVE COCCI CULTURE RESULTS FEW ENTEROCOCCUS FAECALIS ALONG WITH MANY NORMAL SKIN ANAHI [ S = SUSCEPTIBLE R = RESISTANT I = INTERMEDIATE S-DO = Susceptible-dose dependent NS = Non-suscceptible NO = No Interpretation ] Organism: ENTEROCOCCUS FAECALIS Antibiotic Interpretation SEAN Status AMPICILLIN S <=2 F VANCOMYCIN S 1 F Performed By: #### 632-0 ### # [facility] ([id number]) [address], [address] [place] [address] CT ABDOMEN AND PELVIS WO CONT Observed: 05/20/2024 8:19 AM Status: COMPLETED Source: [facility] CT ABDOMEN AND PELVIS WO CON T CT ABDOMEN AND PELVIS WO CONT: 05/20/2024 PROVIDED HISTORY: * 59 years old Male * Sepsis; infected abscess/bleeding abscess to left buttock. dialysis patient. COMPARISON: CT abdomen pelvis 07/23/2023 TECHNIQUE: 1. Multiple axial images of the abdomen and pelvis were obtained. No intravenous contrast was administered. 2. All CT scans at this facility use dose modulation, iterative reconstruction, and/or weight based dosing when appropriate to reduce radiation dose to as low as reasonably achievable. FINDINGS: The lack of intravenous contrast limits evaluation of the solid abdominal organs. Suboptimal evaluation due to patient habitus. LOWER THORAX: Partially visualized small bilateral pleural effusions with adjacent compressive bibasilar atelectasis. There is a small sized hiatal hernia. ABDOMEN/PELVIS: LIVER: There is diffuse hepatic steatosis. GALLBLADDER AND BILE DUCTS: Normal caliber. Nondilated gallbladder contains high attenuation gallstones. PANCREAS: Unremarkable. SPLEEN: Unremarkable. ADRENAL GLANDS: Right adrenal soft tissue nodule measuring approximately 3.2 x 1.6 cm, new. Left adrenal similar to prior. KIDNEYS/URETERS: Atrophic kidneys, similar to prior. No evidence of hydroureteronephrosis. URINARY BLADDER: Decompressed, limiting its evaluation. BOWEL: Nondilated without adjacent inflammatory changes with enteric contrast extending to the level of the rectum. Appendix is normal in appearance. Mild diverticulosis coli. PERITONEUM/RETROPERITONEUM: No ascites. No free air. VASCULATURE: No abdominal aortic aneurysm. PELVIC ORGANS: No pelvic masses. LYMPH NODES: No lymphadenopathy in the abdomen or pelvis. ABDOMINAL WALL: There is a small fat-containing umbilical hernia. MUSCULOSKELETAL: Small locules of gas along the medial aspect of the left thigh/gluteal crease, incompletely visualized with mild surrounding fat stranding. Partially visualized right femur intramedullary gentry. Sacral fixation hardware. Degenerative changes of the partially visualized spine. No suspicious osseous lesions. IMPRESSION: 1. Incompletely imaged/evaluated locules of gas along the medial aspect of the left thigh/gluteal crease. Extent of abnormality not completely included in the study. Finding may represent focal soft tissue ulceration and questionable adjacent inflammatory changes. Correlation with clinical presentation and direct visualization may be of diagnostic value. 2. Right adrenal nodule measuring up to 3.2 cm, new from 07/23/2023. Differential includes spontaneous adrenal hemorrhage as well as neoplastic/metastatic causes. Contrast enhanced CT/MRI may be of diagnostic value. 3. Small bilateral pleural effusions with associated bibasilar compressive atelectasis. Finalized by Iftikhar Hamilton MD on 05/20/2024 9:02 AM XR CHEST 1 VW Observed: 05/20/2024 8:18 AM Status: COMPLETED Source: [facility] XR CHEST 1 VW HISTORY: Cough COMPARISON: Chest x-ray 07/23/2023 FINDINGS: Portable AP upright view of the chest was performed. Left-sided pacemaker with intact leads. Cardiac silhouette is enlarged but stable. Mild vascular congestion and pulmonary edema. No significant pleural effusion or pneumothorax. IMPRESSION: * Mild vascular congestion and pulmonary edema. Finalized by Marito Mcadams MD on 05/20/2024 8:27 AM 1 HOUR TROP I, HIGH SENSITIVITY Collected: 12/2023 7:46 AM Status: COMPLETED Source: [facility] TYPE CODE TESTS RESULT OUT OF RANGE REFERENCE UNITS LAB TNIHS1(LOINC) 1 HOUR TROP I, HIGH SENSITIVITY 11 <21 ng/L Performed By: #### [id number] # ### [facility] ([id number]) [address] [place] [address], [place] [address] BLOOD CULTURE Observed: 05/20/2024 7:23 AM Status: COMPLETED Source: [facility] CULTURE RESULTS ENTEROCOCCUS FAECALIS Enterococcus faecalis detected by PCR. No resistance genes detected by PCR. [ S = SUSCEPTIBLE R = RESISTANT I = INTERMEDIATE S-DO = Susceptible-dose dependent NS = Non-suscceptible NO = No Interpretation ] Organism: ENTEROCOCCUS FAECALIS Antibiotic Interpretation SEAN Status AMPICILLIN S <=2 F VANCOMYCIN S 1 F GENTAMICIN HIGH LEVEL S F STREPTOMYCIN HIGH LEVEL S F Performed By: #### [id number] # ### [facility] ([id number]) [address], [address] [place] [address] COMPREHENSIVE METABOLIC PANEL Collected: 2023 6:56 AM Status: COMPLETED Source: [facility] TYPE CODE TESTS RESULT OUT OF RANGE REFERENCE UNITS LAB NA(LOINC) SODIUM 125 Low 134-146 mmol/L LAB K(LOINC) POTASSIUM 4.7 3.5-5.0 mmol/L LAB CL(LOINC) CHLORIDE 88 Low 98-109 mmol/L LAB CO2(LOINC) CARBON DIOXIDE 24 22-32 mmol/L LAB AGAP(LOINC) ANION GAP 13 5-15 mmol/L LAB BUN(LOINC) BLOOD UREA NITROGEN 52 High 5-23 mg/dL LAB CRET(LOINC) CREATININE 5.19 High 0.70-1.20 mg/dL Result Comment: METHOD TRACE ABLE TO IDMS STANDARD LAB GLU(LOINC) GLUCOSE 143 High 65-99 mg/dL LAB CA(LOINC) CALCIUM 8.2 Low 8.5-10.5 mg/dL LAB TP(LOINC) TOTAL PROTEIN 6.4 6.0-8.0 g/dL LAB ALB(LOINC) ALBUMIN 2.3 Low 3.2-5.3 g/dL LAB ALK(LOINC) ALKALINE PHOSPHATASE 145 High 39-130 U/L LAB AST(LOINC) AST 25 0-41 U/L LAB ALT1(LOINC) ALT 15 0-40 U/L LAB TBIL(LOINC) BILIRUBIN,TOTAL 1.8 High 0.3-1.2 mg/d L LAB EGFR(LOINC) eGFR (CKD-EPI) NON-RACE DEPENDENT 12 Low >59 ml/min/1 .73sq.m Result Comment: Reported eGFR is based on the CKD-EPI 2020 equation that does not use a race coefficient. Performed By: #### [id number], CBCA, CMP, 2157-6 #### [facility] ([id number]) [address] [place] [address], [place] [address] CBC AND AUTO DIFF Collected: 05/20/2024 6:56 AM Status: COMPLETED Source: [facility] TYPE CODE TESTS RESULT OUT OF RANGE REFERENCE UNITS LAB WBC(LOINC) WBC COUNT 16.9 High 4.0-11.0 X10E9/L LAB RBC(LOINC) RBC COUNT 2.45 Low 4.10-5.70 X10E12/L LAB HGB(LOINC) HEMOGLOBIN 7.4 Low 13.0-17.0 g/dL LAB HCT(LOINC) HEMATOCRIT 22.6 Low 39-49 % LAB MCV(LOINC) MCV 93 80-100 fL LAB MCH(LOINC) MCH 30.3 27-34 pg LAB MCHC(LOINC) MCHC 32.8 32-36 g/dL LAB RDW(LOINC) RDW 19.3 High 11.5-15.0 % LAB PLTC(LOINC) PLATELET COUNT 279 150-450 X10E9 /L LAB MPV(LOINC) MPV 9.5 7-12 fL LAB NEUT(LOINC) % NEUTROPHILS 90.3 % LAB LYMP(LOINC) % LYMPHOCYTES 2.8 % LAB MONO(LOINC) % MONOCYTES 5.9 % LAB EOS(LOINC) % EOSINOPHILS 0.7 % LAB BASO(LOINC) % BASOPHILS 0.3 % LAB ANEUT(LOINC) ABSOLUTE NEUTROPHIL 15.3 High 1.5-6.6 X10E9/L LAB ALYMP(LOINC) ABSOLUTE LYMPHOCYTE 0.5 Low 1.0-3.5 X10E9/L LAB AMONO(LOINC) ABSOLUTE MONOCYTE 1.0 High 0-0.9 X10E9/L LAB AEOS(LOINC) ABSOLUTE EOSINOPHIL 0.1 0.0-0.4 X10E9/L LAB ABASO(LOINC) ABSOLUTE BASOPHIL 0.1 0.0-0.2 X10E9/L Performed By: #### [id number], CBCA, CMP, 2157-6 #### [facility] ([id number]) [address] [place] [address], [place] [address] CPK Collected: 05/20/2024 6:56 AM S tatus: COMPLETED Source: [facility] TYPE CODE TESTS RESULT OUT OF RANGE REFERENCE UNITS LAB CPK(LOINC) CPK 22 Low 24-195 U/L Performed By: #### [id number], CBCA, CMP, 2156-6 #### [facility] ([id number]) [address] [place] [address] TROPONIN I, HIGH SENSITIVITY Collected: 6:56 AM Status: COMPLETED Source: [facility] TYPE CODE TESTS RESULT OUT OF RANGE REFERENCE UNITS LAB TNIHS(LOINC) TROPONIN I, HIGH SENSITIVITY 11 <21 ng/L Performed By: #### [id number], CBCA, CMP, 2156-6 #### [facility] ([id number]) [address] [place] [address] LACTATE W/REFLEX Collected: 05/20/2024 6:56 AM Status: COMPLETED Source: [facility] TYPE CODE TESTS RESULT OUT OF RANGE REFERENCE UNITS LAB LACTS(LOINC) LACTATE W/REFLEX 1.3 0.4-2.0 mmol/L Result Comment: Result did not trigger repeat Lactate, re-order if needed. Performed By: #### [id number] # ### [facility] ([id number]) [address] [place] [address] BLOOD CULTURE Observed: 05/20/2024 6:56 AM Status: COMPLETED Source: [facility] SPECIMEN NOTES LAC CULTURE RESULTS ENTEROCOCCUS FAECALIS FOR SUSCEPTIBILITY, SEE PREVIOUS REPORT. Performed By: #### 46964-9 # ### [facility] ([id number]) [address] [place] [address] [facility] ([id number]) [address] [place] [address] GLUCOSE, FINGERSTICK-IN OFFICE Collecte d: 05/15/2024 8:42 PM Status: F Source: [facility] TYPE CODE TESTS RESULT OUT OF RANGE REFERENCE UNITS LAB Mongolian GLUCOSE, POC 151 High 74-109 mg/dL Performed By: #### [id number] ### # NURSING GLUCOSE PROGRAM [address] [place] [address], [address] PROGRESS NOTES Observed: 05/15/2024 6:47 PM Status: COMPLETED Source: [facility] This RN attempted to call [facility] @ [phone] and 1848. To provide report on pt. Both attempts were unsuccessful. This RN left voice mail with unit phone number for a call back. DISCHARGE SUMMARY Observed: 05/15/2024 6:19 PM Status: COMPLETED Source: [facility] [place] [facility]ERY DISCHARGE SUMMARY [address] [id number] Amado Tran Date of : 1965 59 year oldmale Attending Guillermo Giron MD Date of Admission 04/30/2024 Date of Discharge 05/15/24 FINAL DIAGNOSES: Hospital Problems as of 05/15/2024 * (Principal) Hemorrhagic shock (HCC) Closed displaced spiral fracture of shaft of right femur Multiple fractures of pelvis with unstable disruption of pelvic ring, initial encounter for closed fracture (HCC) Closed displaced fracture of body of left scapula Acute pain due to trauma Acute post-operative pain Fracture of right femur Fracture of multiple ribs of both sides Acute blood loss anemia Fall from height of greater than 3 feet Closed fracture of transverse process of lumbar vertebra (HCC) Bilateral pulmonary contusion Pleural effusion on right PROCEDURES: 05/02/2024: 1. Intramedullary rodding right femoral shaft fracture 2. Percutaneous fixation posterior pelvis. 3. Insertion and removal of proximal tibia skeletal traction pin. 4. Exam under anesthesia pelvis. 5. Closed treatment of left scapular body fracture without manipulation; performed by Dr. Dian MD 05/14/2024: RUE Fistulogram with outflow angioplasty performed by Dr. Sierra MD DISCHARGE MEDICATIONS: Current Discharge Medication List START taking these medications Details naloxone 4 mg/0.1 mL nasal liquid Use 1 [place] in one nostril (alternate sides) as needed for Drug Overdose (and call 911). every 2-3 min, until assistance arrives. Qty: 1 Each, Refills: 3 gabapentin (NEURONTIN) 100 MG capsule Take 1 Capsule by mouth at bedtime for 30 days. Qty: 30 Capsule, Refills: 0 guaifenesin (MUCINEX) 600 MG SR tablet Take 1 Tablet by mouth 2 times daily. Qty: 60 Tablet, Refills: 0 insulin glargine (LANTUS SOLOSTAR/BASAGLAR KWIKPEN) 100 UNIT/ML pen Inject 8 Units under the skin at bedtime. Qty: 15 mL, Refills: 5 insulin regular (HumuLIN R) 100 UNIT/ML injection Inject 4-14 Units under the skin 4 times daily (before meals and at bedtime). Qty: 16.8 mL, Refills: 0 levothyroxine (SYNTHROID) 50 MCG tablet Take 1 Tablet by mouth daily. Qty: 30 Tablet, Refills: 0 lidocaine (LIDODERM) 4 % PTCH patch Place 2 Patches on the skin every 24 hours. Qty: 60 Patch, Refills: 0 melatonin 3 MG TABS tablet Take 1 Tablet by mouth at bedtime. Qty: 30 Tablet, Refills: 0 methocarbamol (ROBAXIN) 750 MG tablet Take 1 Tablet by mouth every 6 hours for 10 days. Qty: 40 Tablet, Refills: 0 acetaminophen (TYLENOL) 500 MG tablet Take 2 Tablets by mouth every 6 (six) hours. Qty: 30 Tablet, Refills: 0 !! amiodarone (CORDARONE) 200 MG tablet Take 1 Tablet by mouth daily. Qty: 30 Tablet, Refills: 0 !! Apixaban (ELIQUIS) 5 MG tablet Take 1 Tablet by mouth 2 times daily. Qty: 60 Tablet, Refills: 0 sertraline (ZOLOFT) 25 MG tablet Take 5 Tablets by mouth daily. Qty: 60 Tablet, Refills: 0 senna (SENOKOT) 8.6 MG tablet Take 1 Tablet by mouth at bedtime for 7 days. Qty: 7 Tablet, Refills: 0 Sonali-Riri RX tablet Take 1 Tablet by mouth daily. Qty: 60 Tablet, Refills: 0 polyethylene glycol (MIRALAX) packet Dissolve 1 Packet (17 g total) in 8 ounces of liquid and drink 2 times a day. Qty: 14 Packet, Refills: 0 nystatin (MYCOSTATIN) 100,000 unit/g powder Apply topically 2 times daily. Qty: 60 g, Refills: 0 cholecalciferol (CHOLECALCIFEROL) 25 MCG TABS tablet Take 1 Tablet by mouth daily. Qty: 60 Tablet, Refills: 0 docusate sodium (COLACE) 100 MG capsule Take 1 Capsule by mouth 2 times daily. Qty: 60 Capsule, Refills: 0 epoetin antione-epbx (RETACRIT) 74091 UNIT/ML SOLN injection 1 mL by Intravenous Push route every Saturday, Saturday, Saturday. Qty: 6.6 mL, Refills: 0 erythromycin base (E-MYCIN) 250 MG tablet Take 2 Tablets by mouth 2 times daily. Qty: 40 Tablet, Refills: 0 folic acid 1 MG tablet Take 1 Tablet by mouth daily. Qty: 30 Tablet, Refills: 0 oxyCODONE 5 MG immediate release tablet Take 1 Tablet by mouth every 6 hours as needed for up to 4 days. Qty: 16 Tablet, Refills: 0 Associated Diagnoses: Closed fracture of multiple ribs of left side, initial encounter; Acute post-operative pain; Acute pain due to trauma !! - Potential duplicate medications found. Please discuss with provider. CONTINUE these medications which have NOT CHANGED Details omeprazole (PRILOSEC) 40 MG capsule Take 40 mg by mouth daily. midodrine 10 MG TABS tablet Take 10 mg by mouth. Three times daily pre-dialysis metoprolol (TOPROL-XL) 25 mg XL tablet Take 1 Tablet by mouth daily. metoclopramide (REGLAN) 10 MG tablet Take 10 mg by mouth 4 times daily. atorvastatin (LIPITOR) 40 mg tablet Take 1 Tablet by mouth daily. aspirin EC 81 MG tablet Take 81 mg by mouth daily. !! Apixaban (Eliquis) 5 MG tablet Take 1 Tablet by mouth 2 times daily. !! amiodarone (CORDARONE) 200 MG tablet Take 1 Tablet by mouth daily. sevelamer carbonate (RENVELA) 800 MG TABS tablet Take 800 mg by mouth 3 times daily (with meals). !! - Potential duplicate medications found. Please discuss with provider. REASON FOR HOSPITALIZATION: Amado Tran is a 59 year old male with a PMHx of hyperparathyroidism, pacemaker, ARASH, CAROL, HLD, GERD, depression, ESRD (HD MWF, RUE AV fistula), CKD, HTN, T2DM, systolic HF, and atrial fibrillation on Eliquis. Patient presented to [facility] from OSH on 04/30 s/p mechanical fall 6 feet into floor opening. (-) Head strike, (-) LOC. (+) Eliquis. OSH imaging significant for grade 1 splenic injury, multiple bilateral rib fractures, and multiple pelvic fractures. Administered K-centra, 2uPRBC, calcium gluconate prior to transfer to [facility]. At [facility], patient with labile blood pressures and received additional 1uPRBC, 1uFFP in ED. Trauma work up significant for right L1-L3 TP fractures, anterior tension ban disruption of T11, right superior/inferior pubic rami fracture with extension into acetabulum, left scapular fracture with IM shouder hematoma, bilateral sacral ala fracture, multiple bilateral rib fractures, bilateral pulmonary contusions, right pleural effusion, trace hemoperitoneum, right distal femur fracture. Admitted to TICU. Ortho consulted. SIGNIFICANT FINDINGS: Catalog of Injuries S/p fall down ~6ft hole Right L1-L3 TP fx Anterior tension ban disruption of T11 Right superior/inferior pubic rami fx w/ extension into acetab Left scapular fx w/ intramuscular shoulder hematoma Bilateral sacral ala fx Right 2,3,4,5,6,7,8 rib fx Left 4,5,6,7,8 Rib fx Bilateral pulmonary contusions Right pleural effusion Trace hemoperitoneum Right distal femur fx Acute blood loss anemia Hemorrhagic shock Shock of unknown etiology Acute pain due to trauma Acute post operative pain Incidental Findings (Reviewed AND discussed by MO, 05/14/24) - Cholelithiasis - Indeterminate right adrenal nodule HOSPITAL COURSE: 04/30: Admitted to TICU s/p fall with B/L rib fxs, Pelvic fx's, and questionable Grade 1 splenic injury s/p fall at instant oil change location. 05/01: Titrated on levophed. CBC trended. Seen by EP for pacer, no interrogation to be performed 2/2 EOL device. Upright XR done. OR deferred. Dialyzed. 05/02: Went to OR with ortho. Pressor requirements improved. 05/04: No HD, bumped due to renal emergency. Plan for 05/05. Weaning levophed as able. 05/05: Underwent iHD. Continue to wean levophed to goal of SBP > 100. N/V after breakfast, tigan x 1 with improvement. 05/06: Levophed weaned off overnight, continues on Midodrine. Hgb 6.7 today AM, repeat Type and Screen ordered with 1U RBCs. Recurrent emesis 30min after breakfast 05/07: Most recent EKG Qtc 567, will repeat. Tolerating minimal PO intake, no episodes of emesis or nausea. Discussed possibility of Corpak placement with patient if N/V and intolerance of PO intake continues. 05/08: Consult psych and EP. Encourage PO intake, plan for post-pyloric Corpak if no improvement by Saturday. HD today. 05/09: TSH 7, started synthroid and consulted endocrinology. Consulted cardiology for qTc, acceptable in setting of RBBB, want LFTs. Got 2U PRBCs and albumin due to MAPS in low 50s. Echo ordered, pending. Potential post-pyloric corpak Sat if poor PO intake. 05/11: Labile BP, otherwise asymptomatic. BP cuff mis-reading. Stable post-dialysis. Plan to transfer to floor. 05/12: transferred to [facility], BP stable 05/13: H/H slight downtrend, slight increased swelling to right thigh. Dialysis. Tolerating PO. 05/14: Fistulagram completed following prolonged bleeding after last 2 dialysis sessions (completed per Nephrology recs). New productive cough 05/15/2024: HD today; pulling 750-1000 mL on IS. Tolerating PO intake, pain remains controlled on current regimen. Medically clear for DC per Dr. Giron. The patient was seen and examined on the day of discharge with the following findings: GENERAL: No acute distress, resting comfortably upon arrival into room. NEURO: GCS 15, motor/sensation intact. No focal deficits CARDIOVASCULAR: Radial/DP pulses palpable bilaterally. Positive bruit and thrill to RUE. PULMONARY: Breathing easily on RA; pulling 750-1000 mL on IS. Symmetric chest expansion, no active cough noted. ABDOMINAL: Obese; soft, non-tender, non-distended. EXTREMITIES: No obvious deformities. RUE with single suture below fistula site. RLE with sutures overlying R knee and R lateral thigh; compartments remain soft and compressible. Edematous, 3+ pitting edema with small amount of serous drainage noted from single puncture wound on anterior tibia. SKIN: Warm, dry Condition at discharge: improved Diet: No restrictions Restrictions: Weight lift/push: No lifting greater than 10 lbs Spine: Clear Extremity: NWB BLE, WBAT LUE with no restrictions regarding shoulder motion Functional status: ambulatory with assistance Patient discharge to: long term facility ANTICIPATED FOLLOW UP: No future appointments. Other indicated follow up and instructions for scheduling: - Follow up with Cardiology at [facility] for PPM extraction. - Follow up with Ortho (Dr. Bgigs) in 2-3 weeks for post-operative evaluation - Follow up with Ortho-Spine (Dr. Johnson) in 2 weeks - Follow up with Endocrinology in 4 weeks for repeat thyroid function tests - Will need to be off MVI/biotin prior - Follow up with Nephrology TBD - Follow up with primary care provider regarding recent admission and incidental findings Discharge Procedure Orders Echocardiogram Adult Referral Priority: Urgent Referral Type: Tests/Procedures Referral Location: [facility] NON INVASIVE Number of Visits Requested: 1 Expiration Date: 05/09/25 VTE RISK AT DISCHARGE: Per trauma program protocol, the patient does not REQUIRE post-discharge VTE prophylaxis due to: age >15 and any lower extremity fracture including hip and pelvis and IS on other anticoagulation or does not have a contraindication to anticoagulation. Patient is on home Eliquis OARRS was reviewed on 05/15/24: Overdose risk score is 390. Patient was advised that opioids cause sedation and that he/she should not drive or operate dangerous machinery while taking opioids and should not mix with alcohol or other sedating drugs. Patient was informed of the risk of respiratory, [employer] depression and when medications are misused. Additionally, patient advised on addictiveness, safe storage and disposal of opioids. Explanation of the primary diagnosis, and secondary diagnoses where applicable, including test results, Review of incidental findings and appropriate recommendations for follow up, Discussion of any new medications and treatments, including expected benefits and potential major side effects, Explanation of previous treatments or medications that are discontinued, Discussion of post-hospital day-to-day care needs including therapy, wound care, etc., and Follow up plans and warning signs that should prompt more urgent follow up Lisa Lucas APRN-MERCHANDISE PRESENTATION MANAGER Trauma and Acute Care Surgery Pager: [phone] Plan of care discussed with Trauma Floor Attending, Dr. Giron. PROGRESS NOTES Observed: 05/15/2024 6:05 PM Status: COMPLETED Source: THE [facility] SYSTEM 05/15/24 2952 Patient Location Patient Location 8 Graft/Fistula Dialysis Access Right Present on Arrival to Hospital Insertion Date/Insertion Time: 04/30/24 1850 Laterality: Right Location: Arm Present on Admission?: Present on Arrival to Hospital Access Assessment Positive bruit;Positive thrill Site Assessment WNL Access Assessment Access Function WNL Respiratory Respiratory (WNL) X Respiratory Pattern SOB with exertion Breath Sounds - Bilat Anterior WNL Neurological / Neuromuscular Level of Consciousness WNL Edema Edema Location Generalized;Bilateral LE Edema Quality Pitting 1+ Vital Signs Temperature 97.4 ???F (36.3 ???C) Temperature Source Temporal Heart Rate 64 Respiratory Rate 18 BP 128/42 BP Position Semi-Fowlers BP Location left forearm Oxygen Therapy O2 Device Room air Run Sheet Blood Volume Processed ( L ) 80.5 L Comments post treatment vital signs Total Fluid Removed Total Fluid Removed (ml) 400 ml Prime (ml) 200 mL Rinseback (ml) 200 ml Saline Flush (ml) 0 ml Actual (Net) Fluid Removed (ml) 0 ml Transfer Note (Completed by Sending Unit) Transferring to: [address] SBAR Report Given to: post dialysis report to hui osborne rn via secure chat Sending RN Name, Unit AND Contact # [email or web address] pan washer hand Cosignature RN Cosignature cgreenrn Isolation AND Precautions $ Clinical Precautions Fall Precautions Activity AND Positioning Turn AND Reposition Self GLUCOSE, FINGERSTICK-IN OFFICE Collecte d: 05/15/2024 5:55 PM Status: F Source: [facility] TYPE CODE TESTS RESULT OUT OF RANGE REFERENCE UNITS LAB Mongolian GLUCOSE, POC 157 High 74-109 mg/dL Performed By: #### [id number] ### # NURSING GLUCOSE PROGRAM [address] [place], [address] DISCHARGE PLANNING NOTE Observed: 2023 3:17 PM Status: ACTIVE Source: [facility] CASE MANAGEMENT/SOCIAL WORK SNF DC NOTE: Pt has been cleared for transfer to SNF on this date Pt will be transferred to [facility] via Yaniv Rivera ([id number]) at [facility] Nursing report may be called to [phone] Support person notified: Carlos at [phone] Patient/Family, team aware of above and agreeable. For discharge, please ensure the following is completed: MD to place DC order, reconcile meds, and print narcotics to go with patient to SNF [place] to print Discharge Summary, [place], Summary of Care, Narcotic Scripts, and Signature Page and place in a packet to be given to front end loader driver If transport/discharge needs to be adjusted/cancelled, team (MD/RN) to cancel transport, update support person, and update receiving facility. Rita JENNINGSN export agent 9E [employer] Chat Saturday thru Saturday 7:30a-4:00p CONSULTS Observed: 05/15/2024 2:50 PM Status: COMPLETED Source: [facility] OCCUPATIONAL THERAPY ESAU Muro SUMMARY Patient seen from 0952 to 1020 on GC5E unit for 28 minute treatment. Co-tx with PT for skilled assist with progression of functional mobility and safety. SUBJECTIVE: Patient Subjective/Goals: Oh what fun. OBJECTIVE: Pain: 5-6 /10 Location: (R) LE and (L) Shoulder Pain Relief Interventions Implemented: Positioning, Rest, Mobility, and RN aware and reports patient received medication according to time schedule Appearance: supine in bed, obese, hospital gown, IV hep locked, (R) LE incisions/sutures intact Behavior: Awake, cooperative, painful Cognition: A AND Ox3, follows one step commands consistently UE Status: RUE AROM WFL, pt performs supine overhead reach + deep breathing x10 prior to mobility LUE AROM impaired at shoulder, performed supine shoulder flexion AAROM x5 to ~90* (+) painful, distally AROM WFL Self Care: Assistance Level NA Dep Max Mod Min CG CS DS DE I Set-Up Cues Comment Feeding X Grooming/ Hygiene X Anticipate seated level Bathing: Upper Body X Anticipate at seated level d/t BUE AROM Bathing: Lower Body X Anticipate seated level, pt can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 Cardiology consulted for prolonged QT and hypothyroidism, appreciate recs (05/09): - Underlying RBBB - QTc is accepatable range - LFTs completed - Recommend repeating TFTs once acute illness as resolved - Okay to continue amiodarone - EP consulted for possible PPM retraction and reprogramming, appreciate recs (05/01): - Retraction of PPM is a high risk procedure and carries 1% risk of mortality, clearly there is no indication or reason to retract the PPM along with the orthopedic procedure given increased risk of mortality and also systemic infection. - Patient's PPM has no battery and it isn't working now, there should not be an issue for any MRI, as we cannot re-program it. - Patient should follow with the Cardiology at [facility] for PPM extraction - Continue home apixaban 5 mg BID - Continue home ASA 81 mg PO daily - Continue home Lipitor 40 mg PO daily - Continue home amiodarone 200 mg PO daily - Continue midodrine 10 mg scheduled before dialysis MWF - Maintain SBP > 90 mmHg Respiratory: PMHx ARASH. New cough beginning 05/14 with thick secretions. Saturating well on RA. Concerning for pulmonary edema. 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 PO intake has improved. - Diet: Regular; strict low K, 40 mEq - Continue home Reglan (Qtc appropriate in setting of RBBB per EP) - Continue erythromycin 500mg PO BID (Qtc appropriate in setting of RBBB per EP) - Reference Nutrition recommendations on 05/12 if patient with poor PO and requiring post-pyloric corpak with TF - Continue Boost Breeze and Novasource Renal with meals; encourage Gatorade - BR: Senna. Miralax; add Colace, PRN Dulcolax - GI ppx: Pantoprazole (takes omeprazole at home) - Continue Tigan 100 mg IM q12h PRN for nausea/vomiting Renal: PMHx ESRD (dialysis MWF), hyponatremia likely related to volume overload - Neprhology consulted, appreciate recs (05/14): - Dialysis MWF - Fistulagram obtained 05/14 due to prolonged bleeding with recent dialysis - Follow-up recs following fistulagram - Hold phos binder for phos < 5 - Continue renal MVI - Continue EPO with HD - Continue midodrine 10mg scheduled before dialysis MWF - BMP/Mg/Phos daily - I/Os - Continue home Renvela 800 mg TID with meals - Continue free water restriction of 500mL daily; encouraging Boosts/Gatorades - Continue vitamin D3 supplementation - Continue folic acid 1 mg PO daily Heme: Hemorrhagic shock (resolved). H+H stable at 7.3/2.5 (7.9/24.6). HDS, likely related to volume overload - No acute indication for transfusion. Transfuse for hgb >7 - EPO with dialysis MWF - Daily CBC ID: New cough, no leukocytosis. Afebrile. HDS. Low suspicion for infection at this time -- likely related to pulmonary edema from ESRD - No indication for abx Endo: PMHx hyperparathyroidism, DM2, hypothyroidism (Slim vs. Drug-induced). 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 MSK/Spines: Pelvic fractures (s/p percutaneous fixation posterior pelvis and removal of proximal tibia skeletal traction pin, exam under anesthesia, right distal femur fracture (s/p IMN), left scapula fracture (s/p closed treatment of left scapular body fracture without manipulation). T11 compression/DISH fx and L1-3 right TP fx (Ortho-spine, non-op) - Ortho consulted: - Operative management of RLE and LUE on 05/[address] Biggs - NWB BLE - WBAT LUE with no restrictions regarding shoulder motion (per Op note) - Ortho-Spine consulted: - Uprights reviewed 05/01 -- non-operative management - PT/OT on consult: - Recommend further therapy services in a Nursing Home Setting once medically cleared - Will continue to follow patient while in hospital as appropriate. - Spines: cleared - Progressive mobility ordered - WOCN following for skin concerns: - Continue nystatin to groins, folds PPx: - DVT PPx: Continue SCDs, home Eliquis - GI PPx: Continue home PPI Lines: - Maintain PIV x 2 - RUE AVF Disposition: - Medically clear for DC following HD session today. Follow up with: - Follow up with Cardiology at [facility] for PPM extraction. - Follow up with Ortho (Dr. Biggs) in 2-3 weeks for post-operative evaluation - Follow up with Ortho-Spine (Dr. Johnson) in 2 weeks - Follow up with Endocrinology in 4 weeks for repeat thyroid function tests - Will need to be off MVI/biotin prior - Follow up with Nephrology TBD - Follow up with primary care provider regarding recent admission and incidental findings Lisa Lucas APRN-[facility] Trauma and Acute Care Surgery Pager: [phone] This patient's plan of care was discussed with Trauma Floor attending, Dr. Giron. CARE PLAN NOTE Observed: 05/15/2024 2:18 AM Status: COMPLETED Source: [facility] Patient signed out pending C XR due to new productive cough. CXR showed concern for pulmonary edema vs early infectious/inflammatory process. Labs reviewed, no leukocytosis, vitals HDS, not in respiratory distress. Pulmonary exam: equal breath sounds, bl lower base crackles, no wheezing. Exam and imaging likely consistent with pulmonary edema. Less likely PNA. Will hold off antibiotics at this time. Patient with ESRD on dialysis, with scheduled HD tomorrow, will likely help with pulmonary edema. Dru Thomas DO Trauma Surgery COMPLETE BLOOD COUNT Collected: 024 1:17 AM Status: F Source: THE [facility] TYPE CODE TESTS RESULT OUT OF RANGE REFERENCE UNITS LAB WBC WBC 6.5 4.5-11.5 K/uL LAB RBC RBC 2.39 Low 4.50-5.90 M/uL LAB HGB HGB 7.3 Low 13.9-16.3 g/dL LAB HCT HCT 22.5 Low 41.0-53.0 % LAB MCV MCV 94 80-100 fL LAB MCH MCH 30.6 26.0-34.0 pg LAB MCHC MCHC 32.5 32.0-35.9 g/dL LAB PLT PLT 175 150-400 K/uL LAB RDW RDW-CV 19.6 High 11.5-14.5 % LAB MPV MPV 9.4 7.5-11.2 fL Performed By: #### CBC #### [facility] [address] [place] [address], [phone] MAGNESIUM Collected: 4 1:17 AM Status: F Source: THE [facility] TYPE CODE TESTS RESULT OUT OF RANGE REFERENCE UNITS LAB mag MG 1.9 1.9-2.7 mg/dL Performed By: #### MG, CH8, PHOS #### [facility] [address] [place] [address], PHOSPHORUS Collected: 1:17 AM Status: F Source: THE [facility] TYPE CODE TESTS RESULT OUT OF RANGE REFERENCE UNITS LAB PHOS PHOS 3.8 2.5-5.0 mg/dL Performed By: #### MG, CH8, PHOS #### [facility] [address] [place], [place], BASIC METABOLIC PANEL Collected: 2023 1:17 AM Status: F Source: THE [facility] TYPE CODE TESTS RESULT OUT OF RANGE REFERENCE UNITS LAB GLU GLU 124 High 74-109 mg/dL LAB NA3 NA 131 Low 136-145 mmol/L LAB POT K 4.2 3.5-5.0 mmol/L LAB CO2 CO2 25 21-31 mmol/L LAB CHLOR CL 95 Low 98-107 mmol/L LAB BUN BUN 50 High 7-25 mg/dL LAB CREAT CREAT 4.87 High 0.70-1.30 mg/dL LAB CA CA 7.5 Low 8.6-10.3 mg/dL LAB ANION GAP ANION GAP 15 10-20 LAB eGFR ESTIMATED GFR (CKD-EPI) 13 Low >=60 mL/min/1 .73sqm Result Comment: 2020 CKD EPI Equation using Creatinine without Race Comment: Estimated glomerular filtration rate (eGFR) is calculated without a race coefficient. Values should be interpreted in the context of the patient's full clinical presentation. Reference: 1. Christophe C, Sagrario M, Gena DC, et al.. A Unifying Approach for GFR Estimation: Recommendations of the NKF-ASN Task Force on Reassessing the Inclusion of Race in Diagnosing Kidney Disease. [place] Journal of Kidney Diseases 202;79(2):268- 88.e1. 2. N Engl J Med 1 Vol. 385 Issue 19 Pages 5271-4045 Performed By: #### MG, CH8, PHOS #### [facility] [address] [place] [address], [phone] GLUCOSE, FINGERSTICK-IN OFFICE Collecte d: 05/14/2024 9:46 PM Status: F Source: [facility] TYPE CODE TESTS RESULT OUT OF RANGE REFERENCE UNITS LAB Mongolian GLUCOSE, POC 209 High 74-109 mg/dL Performed By: #### [id number] ### # NURSING GLUCOSE PROGRAM [address] [place], [address] XR CHEST AP OR PA 1 VIEW Observed: 05/14 8:34 PM Status: F Source: THE [facility] EXAMINATION: XR CHEST AP OR PA 1 VIEW 05/14/2024 07:21 PM CLINICAL HISTORY: cough ASSOCIATED DIAGNOSIS: cough ORDERING PROVIDER: JODEE MARSHALL TECHNMICHELLE NOTE: COMPARISON: 05/03/2024 FINDINGS: Limitations: Limited by semierect portable imaging. Lines, tubes, and devices: None. Lungs and pleura: * Previously queried trace left apical pneumothorax is not definitively seen on current study, albeit not diagnostically assessed on semirecumbent imaging. * Patchy airspace opacities are seen within the central perihilar predominance. * No obvious right-sided pneumothorax. * No large volume pleural effusion Cardiomediastinal silhouette: Stable appearance of cardiomediastinal silhouette. Grossly intact cardiac pacemaker device/leads. Musculoskeletal: * Not well assessed on single view * Redemonstration of right rib fracture deformities * IMPRESSION: 1. Nonspecific patchy interstitial centrally predominant airspace opacities. Differential includes developing infection versus pulmonary edema. Clinical correlation required. 2. No large volume pleural effusion or obvious pneumothorax within confines of single view. 3. Numerous right rib fractures. 4. Cardiomegaly. MACRO: None GLUCOSE, FINGERSTICK-IN OFFICE Collecte d: 05/14/2024 4:43 PM Status: F Source: [facility] TYPE CODE TESTS RESULT OUT OF RANGE REFERENCE UNITS LAB Mongolian GLUCOSE, POC 157 High 74-109 mg/dL Performed By: #### [id number] ### # NURSING GLUCOSE PROGRAM [address] [place], [address] CONSULTS Observed: 05/14/2024 3:57 PM Status: COMPLETED Source: [facility] PHYSICAL THERAPY PROGRESS GALLEGOS MMARY Patient seen from 1539 to 1550 on GC5E unit for 11 minute treatment. SUBJECTIVE: Patient Subjective/Goals: I had surgery today. Pt had RUE fistulogram today OBJECTIVE: Appearance: pt in bed upon entering room Behavior: alert,cooperative Pain: Site/Location: L shoulder,back and RLe; Pain Scale: 6/10 Pain Relief Interventions Implemented: Positioning and Relaxation Training Therex- AP 1x10 QS1x10 Assisted hs 1x10 GS 1x10 Assisted Hip abd 1x10 Self assist bilateral UE overhead reach 1x5 ~90 degrees shoulder flexion Functional Endurance: impaired Performed several reps of IS w/ pt achieving ~750 mls Patient/Family Education: Patient instructed in use of IS 10x/hour. Reviewed NwB bilateral Le and WBAT LUE . Patient up in bed with call light in reach. bed alarm on DME: With Patients permission ordered no equipment via [employer] Order. If any questions contact [facility] Provider at [phone]. 05/14/2024 6 Clicks Basic Mobility PT Difficulty turning over in bed 2 Difficulty sitting down and standing up from a chair with arms 1 Difficulty moving from lying on back to sitting on the side of the bed 2 Help from another person moving to and from bed to a chair 1 Help from another person to walk in hospital room 1 Help from another person climbing 3-5 steps with a railing 1 PT 6 Clicks Score 8 6 Click Score Guidelines: 1 - Total = Requires total assistance, or cannot do at all. 2 - A lot = Requires a lot of help (maximun to moderate assistance) Can use assistive devices. 3 - A little = Requires a little help (supervision, minimal assistance) Can use assistive devices. 4 - None = Does not require any help and does the activity independently. Can use assistive devices. ASSESSMENT: Recommend further therapy services in a Nursing Home Setting once medically cleared. Will continue to follow patient while in hospital as appropriate. Goals (to be achieved by discharge from acute care): ALL GOALS ONGOING UNLESS OTHERWISE NOTED Patient will achieve acceptable level of pain control to allow participation in therapy. Patient will increase bed mobility to moderate assistance x 2 Patient will be able to sit at edge of bed x 5 minutes with UE support with minimal assist. Patient will be able to perform AAROM to BLE's in supine x 10 reps. Patient will perform transfer bed to/from chair with appropriate device with moderate assistance x 2 Patient will increase ROM/Strength/Endurance/Balance to allow for above goals. PLAN: Will follow established Plan of Care Apoorva ALEJANDRO Beeper #[phone] This clinician collaborated with supervising PT for patient assessment and POC as appropriate. This document is not finalized until reviewed and cosigned by supervising PT. NA = Not Assessed, I = Independent, DE = Modified Independent, Sup = Supervised, Set up = Physical Assistance for Set-up Only, Min = Minimal Assistance, Mod = Moderate Assistance, Max = Maximal assistance; Dep = Dependent; AROM = Active Range of Motion; PROM = Passive Range of Motion; MMT = Manual Muscle Test GLUCOSE, FINGERSTICK-IN OFFICE Collecte d: 05/14/2024 1:17 PM Status: F Source: THE [facility] TYPE CODE TESTS RESULT OUT OF RANGE REFERENCE UNITS LAB Mongolian GLUCOSE, POC 199 High 74-109 mg/dL Performed By: #### [id number] ### # NURSING GLUCOSE PROGRAM [facility] [place], [address] POST-PROCEDURE NOTE Observed: 05/14/2024 12:32 PM Status: COMPLETED Source: THE [facility] POST-PROCEDURE NOTE Procedure: RUE Fistulogram With outflow angioplasty Pre-operative Diagnosis: ESRD Post-operative Diagnosis: ESRD Attending: Rojelio Quiñones MD Associate Professor Of Theology: Gabbi Esquivel MD A TIME OUT was performed prior to the procedure using active communication to verify correct patient, procedure, and site: Yes Intraoperative Medications: Medications Medication Event Details Admin User Admin Time fentaNYL (SUBLIMAZE) 100 MCG/2ML injection Medication Given Dose: 50 mcg; Route: Intravenous Push Becka Wesley RN 05/14/2024 11:56 AM heparin (porcine) 1,000 units/mL injection Medication Given Dose: 3,000 Units; Route: Intravenous Push Becka Wesley RN 05/14/2024 12:06 PM iohexol (OMNIPAQUE) 350 MG/ML injection Medication Given Dose: 110 mL; Route: Other; Scheduled Time: 12:19 PM Asher Kaplan 05/14/2024 12:19 PM Complications: None Specimens: N/A Estimated Blood Loss: less than 10 cc Post Procedure Pain Ratin/10 Findings: In-stent restenosis of the distal aspect of pre-existing stent, 8x4 balloon Plan: - ok for dialysis (scheduled: tomorrow) Please see procedure dictation in EPIC/PACS for full procedural details. Gabbi Esquivel MD Radiology PROGRESS NOTES Observed: 05/14/2024 12:14 PM Status: COMPLETED Source: THE [facility] Case Management CM made aware that the patient is not medically cleared for discharge. Patient will be discharging to [facility]) when ready. SNF updated on anticipated medical readiness date and notified that the patient will no longer need a Corpak. CM will remain available to assist with discharge planning and needs as warranted. Marizol KIMBLE, RN Inpatient [place] Worker [employer] Cell [facility] M-F [phone] H AND P Observed: 05/14/2024 11:28 AM Status: COMPLETED Source: THE [facility] SYSTEM MODIFIED HISTORY AND PHYSICA L: HISTORY: Procedure: Right arm fistulagram Indication: Prolonged bleeding No past medical history on file. Diabetes: yes Sleep Apnea: yes Excessive Obesity: yes Hepatic Disease: no Renal Disease: yes Substance Abuse History: Social History Tobacco Use Smoking status: Never Smokeless tobacco: Never Vaping Use Vaping status: Never Used History Drug Use Not on file No current facility-administered medications for this encounter. No current outpatient medications on file. Facility-Administered Medications Ordered in Other Encounters Medication Dose Route Frequency Last Rate Last Admin melatonin tablet 3 mg Oral At Bedtime 3 mg at 05/13/242120 trimethobenzamide (TIGAN) 100 MG/ML injection 100 mg Intramuscular Q12H PRN 100 mg at 05/12/24 173 senna (SENOKOT) tablet 8.6 mg Oral At Bedtime 8.6 mg at 05/13/242120 oxyCODONE immediate release tablet 10 mg Oral Q4H PRN 10 mg at 05/13/24 0532 oxyCODONE immediate release tablet 5 mg Oral Q4H PRN 5 mg at 05/14/24 0654 aspirin EC tablet 81 mg Oral Daily 81 mg at 05/14/24 0927 polyethylene glycol (MIRALAX) 17 g packet 17 g Oral Daily 17 g at 05/14/24926 midodrine tablet 10 mg Oral Q M, W AND F 10 mg at 05/13/24 0646 insulin glargine (LANTUS SOLOSTAR/BASAGLAR KWIKPEN) 100 UNIT/ML PEN injection 8 Units Subcutaneous At Bedtime 8 Units at 10/30/24 2123 metoclopramide (REGLAN) 5 MG/ML injection 5 mg Intravenous Push Every 8 hours 5 mg at 05/14/24926 erythromycin base (E-MYCIN) tablet 500 mg Oral 2x Daily 500 mg at 05/14/24926 levothyroxine (SYNTHROID) tablet 50 mcg Oral Before Breakfast 50 mcg at 05/14/24 0654 sertraline (ZOLOFT) tablet 125 mg 125 mg Oral Daily 125 mg at 05/14/24926 folic acid 1 MG tablet 1 mg Oral Daily 1 mg at 05/14/24 09 [MAR Hold] vitamin D2 ergocalciferol (DRISDOL) capsule CAPS 50,000 Units Oral Q7 Days 50,000 Units at 05/06/24 1313 cholecalciferol (VITAMIN D3) tablet 1,000 Units Oral Daily 1,000 Units at 05/14/24 09 Normal consistency supplement Oral 2x Daily with Meals Given at 05/13/24 1749 Normal consistency supplement Oral Daily with breakfast Given at 05/14/24 0900 Apixaban (ELIQUIS) tablet 5 mg Oral 2x Daily 5 mg at 05/14/2427 Sonali-Riri RX tablet 1 Tablet Oral Daily 1 Tablet at 05/14/24 0928 insulin regular (HumuLIN R) 100 UNIT/ML injection 4-14 Units Subcutaneous 4x Daily AC AND HS 6 Units at 05/13/24 212 methocarbamol (ROBAXIN) tablet 750 mg Oral Every 6 hours 750 mg at 05/14/24 0654 epoetin antione-epbx (RETACRIT) 50888 UNIT/ML injection 10,000 Units Subcutaneous Q M, W AND F 10,000 Units at 05/13/24 1600 acetaminophen (TYLENOL) tablet 1,000 mg Oral q6h 1,000 mg at 05/14/24 0654 nystatin (MYCOSTATIN) 100,000 unit/g powder Topical 2x Daily Given at 05/13/24 2125 albuterol (PROVENTIL) (2.5 MG/3ML) 0.083% nebulizer solution 2.5 mg Nebulization QID RT 2.5 mg at 05/14/24 0752 albuterol (PROVENTIL) (2.5 MG/3ML) 0.083% nebulizer solution 2.5 mg Nebulization Q4H PRN sevelamer carbonate (RENVELA) tablet 800 mg Oral 3x Daily with Meals 800 mg at 05/14/24943 amiodarone (CORDARONE) tablet 200 mg Oral Daily 200 mg at 05/14/24926 atorvastatin (LIPITOR) tablet 40 mg Oral At Bedtime 40 mg at 05/13/242120 gabapentin (NEURONTIN) capsule 100 mg Oral At Bedtime 100 mg at 05/13/242120 pantoprazole (PROTONIX) tablet 40 mg Oral Daily 30 min before breakfast 40 mg at 05/14/24926 lidocaine (LIDODERM) 4 % patch 2 Patch Transdermal Every 24 hours 2 Patch at 05/13/242120 dextrose 10 % iv infusion 125 mL Intravenous PRN Or glucagon (GLUCAGEN) 1 MG injection 1 mg Subcutaneous PRN Or dextrose (GLUTOSE) 40 % oral gel 15 g of glucose Buccal PRN Or dextrose (GLUTOSE) 40 % oral gel 30 g of glucose Buccal PRN Allergies: Penicillins PHYSICAL EXAM: There were no vitals taken for this visit. Lungs: Clear to auscultation bilaterally Heart: Regular rate and rhythm Pertinent Findings: Right arm thrill present, mild pulsatility Labs Reviewed? Yes Recent Labs: Result for specified components in the past 45 days Component Date/Time Result Units Hemoglobin 05/14/2024 5:50 AM 7.9 g/dL Hematocrit 05/14/2024 5:50 AM 24.6 % Platelet 05/14/2024 5:50 AM 169 K/uL aPTT 05/01/2024 8:51 PM 29 sec Protime 05/01/2024 2:10 PM 13.0 sec INR 05/01/2024 2:10 PM 1.16 FXAUN --- not found ANTIFXALMWHE --- not found Creatinine 05/14/2024 5:50 AM 3.63 mg/dL Planned Sedation: Light Planned Sedation Medications: fentanyl ASA Classification: Class III: Individual with multiple system disease or well controlled major system disease. Disease status limits daily activity. Mallampati Airway Assessment: Class II Faucial pillars, soft palate visible Patient or family history of adverse reactions involving sedation/anesthesia: No patient or family history of adverse reaction PRE-PROCEDURE VERIFICATION: Site of Procedure: right Site Marked pre-procedure: Yes Advanced Directives (Living will, health care power of prosecuting attorney): none Patient Recent Code Status: Full Code Code Status For This Procedure: Full Code Rojelio Quiñones MD Radiology PROGRESS NOTES Observed: 05/14/2024 10:39 AM Status: COMPLETED Source: THE [facility] Nephrology Follow-up Note Amado Tran 59 year old 310.1875 lbs MRN/Room: [id number] Subjective: Seen and evaluated at bedside. Tolerated HD yesterday, but did have prolonged bleeding after treatment, 500 ml removed. Objective: General appearance: NAD Eyes: Non-icteric Skin: No apparent rash Abdomen: Soft, nt/nd Extremities: Mild edema BLE Neuro: A AND Ox3 Access: RAVF Meds: melatonin 3 mg At Bedtime senna 8.6 mg At Bedtime aspirin EC 81 mg Daily polyethylene glycol 17 g Daily midodrine 10 mg Q M, W AND F insulin glargine 8 Units At Bedtime metoclopramide 5 mg Every 8 hours erythromycin base 500 mg 2x Daily levothyroxine 50 mcg Before Breakfast sertraline 125 mg Daily folic acid 1 mg Daily [SEP Hold] vitamin D2 ergocalciferol 50,000 Units Q7 Days cholecalciferol 1,000 Units Daily Normal consistency 2x Daily with Meals Normal consistency Daily with breakfast Apixaban 5 mg 2x Daily Sonali-Riri RX 1 Tablet Daily insulin regular 4-14 Units 4x Daily AC AND HS methocarbamol 750 mg Every 6 hours epoetin antione-epbx 10,000 Units Q M, W AND F acetaminophen 1,000 mg q6h nystatin 2x Daily albuterol 2.5 mg QID RT sevelamer carbonate 800 mg 3x Daily with Meals amiodarone 200 mg Daily atorvastatin 40 mg At Bedtime gabapentin 100 mg At Bedtime pantoprazole 40 mg Daily 30 min before breakfast lidocaine 2 Patch Every 24 hours trimethobenzamide 100 mg Q12H PRN oxyCODONE 10 mg Q4H PRN oxyCODONE 5 mg Q4H PRN albuterol 2.5 mg Q4H PRN dextrose iv for hypoglycemia orderable 125 mL PRN Or glucagon 1 mg PRN Or dextrose 15 g of glucose PRN Or dextrose 30 g of glucose PRN Vital sign ranges over the past 24 hours (retrieved 05/14/2024 at 10:39 AM): Tmax (24 hours): 99.5 ???F (37.5 ???C) Pulse Av.6 Min: 60 Max: 72 Systolic (24hrs), Av , Min:90 , Max:135 Diastolic (24hrs), Av, Min:34, Max:58 MAP (mmHg) Av.4 mmHg Min: 52 mmHg Max: 60 mmHg Resp Av.3 Min: 16 Max: 18 SpO2 Av % Min: 92 % Max: 96 % Patient Vitals for the past 24 hrs: BP Temp Temp src Pulse Resp SpO2 O2 Device 05/14/24 0803 -- -- -- 66 16 96 % -- 05/14/24 0754 -- -- -- 62 16 94 % -- 05/14/24 0544 90/42 98.1 ???F (36.7 ???C) Oral 60 16 94 % Room air 05/14/24 0133 111/34 98.2 ???F (36.8 ???C) Oral 64 16 96 % Room air 05/14/24 0012 -- -- -- -- -- -- BiPAP 05/13/24 2240 -- -- -- -- -- -- BiPAP 05/13/24 2230 108/43 99.5 ???F (37.5 ???C) Oral 71 18 92 % BiPAP 05/13/242120 -- -- -- -- -- -- Room air 05/13/242110 -- -- -- 70 18 -- Room air 05/13/24 1807 -- -- -- -- -- -- Room air 05/13/24 1730 135/48 98.6 ???F (37 ???C) Oral 67 18 -- -- 05/13/24 1700 121/48 98.4 ???F (36.9 ???C) Oral 72 18 92 % Room air 05/13/24 1245 91/53 98.6 ???F (37 ???C) Oral 69 18 -- -- 05/13/24 1220 -- -- -- 64 18 -- Room air 05/13/24 1211 -- -- -- -- -- -- Room air 05/13/24 1210 -- -- -- 68 18 -- Room air 05/13/24 1205 95/58 -- -- -- -- -- -- Intake/Output Summary (Last 24 hours) at 05/14/2024 1039 Last data filed at 05/14/2024 0829 Gross per 24 hour Intake 960 ml Output 500 ml Net 460 ml Blood Labs: Arterial Blood Gases None CBC/PT/INR 05/14/2024 05/13/2024 05/12/2024 1:50 AM 2:16 AM 12:32 AM WBC 6.2 5.6 6.5 RBC 2.59 2.68 2.84 Hgb 7.9 8.1 8.5 Hct 24.6 25.7 27.1 MCV 95 96 96 RDW 19.9 20.2 20.1 Plt 169 153 145 WBC/Diff No lab values to display. Basic Metabolic Panel 05/14/2024 05/13/2024 05/12/2024 1:50 AM 2:16 AM 12:32 AM Na 131 132 133 K 3.9 4.0 4.0 Cl 97 97 99 CO2 27 24 25 Gap 11 15 13 Glu 172 146 119 BUN 34 47 29 Cr 3.63 4.55 3.44 Ca 7.5 7.6 7.7 Mg 1.9 2.1 1.9 PO4 3.3 4.1 2.2 Cultures: Urine Culture No lab values to display. Blood Culture No lab values to display. A/P: Amado Tran is a 59 year old y/o male with PMH of Hyperparathyroidism, Pacemaker, ARASH, CAROL, HLD, GERD, Depression, ESRD (HD MWF, RUE AV Fistula), CKD, HTN, T2DM, Systolic HF, and atrial fibrillation on Eliquis who presented to via [facility] as an inter facility transfer from [facility] s/p Fall. #ESRD MWF @ [facility] Access-RAVF -HD tomorrow per submitted order, continue MWF schedule -pt had prolonged bleeding the past 2 tx, would recommend a fistulogram #Bp/Volume Bp's labile -continue midodrine with HD #electrolyte/acid base K 3.9, stable Bicarb 27, stable #Anemia Hgb 7.9 -continue EPO with HD -transfuse hgb <7 #MBD Calcium 7.5, phos 3.3 -hold phos binder for phos < 5 -continue renal MVI Renally dose all meds to ESRD Strict I/O's, daily weights, low k diet Clementine Alcantara APRN-KIR[facility] Division of Nephrology AND Hypertension Pager :[phone] PROGRESS NOTES Observed: 05/14/2024 8:43 AM Status: COMPLETED Source: THE [facility] -- GENERAL INFORMATION TRAUMA FLOOR - STAFF NOTE Patient Name: Amado Tran Admission Date: 04/30/2024 Patient seen and examined on 05/14/24 INTERVAL HISTORY/EVENTS Background: Amado Tran is a 59 year old male with a PMHx of Hyperparathyroidism, Pacemaker, ARASH, CAROL, HLD, GERD, Depression, ESRD (HD MWF, RUE AV Fistula), CKD, HTN, T2DM, Systolic HF, and atrial fibrillation on Eliquis. Patient presented to [facility] from OSH on 04/30 s/p mechanical fall 6ft into floor opening. (-)head strike. (-)LOC. (+)Eliquis. OSH imaging significant for grade 1 splenic injury, multiple bilateral rib fractures, and multiple pelvic fractures. Administered K-centra, 2uPRBC, calcium gluconate prior to transfer to [facility]. At [facility], patient with labile blood pressures and received additional 1uPRBC, 1uFFP in ED. Trauma work up significant for right L1-L3 TP fractures, anterior tension ban disruption of T11, right superior/inferior pubic rami fracture with extension into acetabulum, left scapular fracture with IM shouder hematoma, bilateral sacral Ala fracture, multiple bilateral rib fractures, bilateral pulmonary contusions, right pleural effusion, trace hemoperitoneum, right distal femur fracture. Admitted to TICU. Ortho consulted. Hospital Course: 04/30: Admitted to TICU s/p fall with B/L rib fxs, Pelvic fx's, and questionable Grade 1 splenic injury s/p fall at instant oil change location. 05/01: Titrated on levophed. CBC trended. Seen by EP for pacer, no interrogation to be performed 2/2 EOL device. Upright XR done. OR deferred. Dialyzed. 05/02: Went to OR with ortho. Pressor requirements improved. 05/04: No HD, bumped due to renal emergency. Plan for 05/05. Weaning levophed as able. 05/05: Underwent iHD. Continue to wean levophed to goal of SBP > 100. N/V after breakfast, tigan x 1 with improvement. 05/06: Levophed weaned off overnight, continues on Midodrine. Hgb 6.7 today AM, repeat Type and Screen ordered with 1U RBCs. Recurrent emesis 30min after breakfast 05/07: Most recent EKG Qtc 567, will repeat. Tolerating minimal PO intake, no episodes of emesis or nausea. Discussed possibility of Corpak placement with patient if N/V and intolerance of PO intake continues. 05/08: Consult psych and EP. Encourage PO intake, plan for post-pyloric Corpak if no improvement by Saturday. HD today. 05/09: TSH 7, started synthroid and consulted endocrinology. Consulted cardiology for qTc, acceptable in setting of RBBB, want LFTs. Got 2U PRBCs and albumin due to MAPS in low 50s. Echo ordered, pending. Potential post-pyloric corpak Mon if poor PO intake. 05/11: Labile BP, otherwise asymptomatic. BP cuff mis-reading. Stable post-dialysis. Plan to transfer to floor. 05/12: transferred to [facility], BP stable 05/13: H/H slight downtrend, slight increased swelling to right thigh. Dialysis. Tolerating PO. 24 Hour Events: Patient seen after fistulagram today (nephology rec due to prolonged bleeding after last x2 dialysis sessions). Patient reports that he still has moderate pain, but feels that pain is slowly improving day-to-day. He does have a new cough this afternoon and reports that his secretions feel thick. No fever/sweats/chills. IS 1000-1100mL. SPO2 appropriate on RA. CXR ordered. Patient tolerating PO. Ate a large breakfast and has been drinking boost. Patient ate ~50% of dinner. Aneuric at baseline. No BM, endorsing mild constipation. Declines suppository. Labs: no leukocytosis. H/H stable at 7.9/24.6 (8.1/25.7). BUN/Cr elevated and consistent with known ESRD. K+ 3.9. Na 131. Mg 1.9. Phos 3.3 Vitals: afebrile. VSS on RA. UOP: x0 (aneuric with ESRD) BM: x0 (last BM 05/11) PHYSICAL EXAM Vital Signs: Vital sign ranges over the past 24 hours (retrieved 05/14/2024 at 8:43 AM): Tmax (24 hours): 99.5 ???F (37.5 ???C) Pulse Av.5 Min: 60 Max: 72 Systolic (24hrs), Av , Min:90 , Max:135 Diastolic (24hrs), Av, Min:34, Max:58 MAP (mmHg) Av mmHg Min: 52 mmHg Max: 70 mmHg Resp Av.3 Min: 16 Max: 18 SpO2 Av.9 % Min: 92 % Max: 96 % 24 Hour Input/Output Intake/Output Summary (Last 24 hours) at 05/14/2024 0843 Last data filed at 05/14/2024 0829 Gross per 24 hour Intake 1375 ml Output 500 ml Net 875 ml PHYSICAL EXAM General: Laying down in hospital bed. NAD. Neurological: AAOx4, GCS-15. Motor and sensory grossly intact to BUE/BLE HEENT: Normocephalic, atraumatic. Cardiac: RRR. DP/PT 2+ BLE Pulmonary: Saturating well on room air. Diminished breath sounds to bases. No wheezing, rhonchi, or rales. Abdomen: Obese, rounded, soft, non-tender, non-distended. Extremities: RLE with multiple sutured incision sites over distal lateral and medial thigh, all well approximated without any erythema. Serosanguinous drainage on dressing to right pre-tibial region. Tenderness on palpation and manipulation of RLE. Trace pedal edema. Right thigh with edema/firm but compartments compressible. Otherwise warm, well perfused. Moves all extremities spontaneously. LABORATORY RESULTS (LAST 24 HOURS) CBC/PT/INR 05/14/2024 1:50 AM WBC 6.2 RBC 2.59 Hgb 7.9 Hct 24.6 MCV 95 RDW 19.9 Plt 169 Basic Metabolic Panel 05/14/2024 1:50 AM Na 131 K 3.9 Cl 97 CO2 27 Gap 11 Glu 172 BUN 34 Cr 3.63 Ca 7.5 Mg 1.9 PO4 3.3 Fingerstick Glucose (last 72 hours) (Last 10 results in the past 72 hours) Glucose 05/14/24 0807 117 05/13/24 2112 217 05/13/24 1748 139 05/13/24 1142 195 05/13/24 0724 157 05/12/24 2018 193 Comment: Notified FRANNIE URIBE MD
05/12/24 1637 199 05/12/24 1137 171 05/12/24 0736 108 05/11/24 2151 119 IMAGING RESULTS (PERSONALLY REVIEWED) All admit imaging and follow up imaging reviewed. No new imaging. ASSESSMENT AND PLAN Diagnoses: - s/p fall down ~6ft hole - Right L1-L3 TP Fx - Anterior tension ban disruption of T11 - Right superior/inferior pubic rami Fx w/ extension into acetab - Left scapular Fx w/ intramuscular shoulder hematoma - Bilateral sacral Ala Fx - Right 2,3,4,5,6,7,8 Rib Fx - Left 4,5,6,7,8 Rib Fx - Bilateral pulmonary contusions - Right pleural effusion - Trace hemoperitoneum - Right distal femur fx - Acute blood loss anemia - Hemorrhagic shock - Shock of unknown etiology PMHx: Hyperparathyroidism, Pacemaker, ARASH, CAROL, HLD, GERD, Depression, ESRD (HD MWF, RUE AV Fistula), CKD, HTN, T2DM, Systolic HF, and atrial fibrillation on Eliquis Home Meds: ASA 81mg daily Insulin NPH (70U BID) Pioglitazone 30mg daily Sertraline 100mg daily Amiodarone 200mg daily Sevelamer 1600mg TID Apixaban 5mg BID Atorvastatin 40mg daily Gabapentin 100mg qHS Midodrine 10mg with dialysis Omeprazole 40mg daily Metoclopramide 10mg QID Furosemide 40mg BID Isosorbide Mononitrate 20mg q12h Metoprolol 25mg Daily Incidental Findings: discussed by MO, 05/14 - cholelithiasis - indeterminate right adrenal nodule Plan: Neurological: PMHx depression. Acute pain due to trauma. Acute postoperative pain. - Acetaminophen 1G Q6hrs sched - Continue Oxycodone to 5/10 mg Q4hrs PRN - Lidocaine - 2 patch Q24h - Robaxin 750mg Q6H - Home Gabapentin 100mg at bedtime - Melatonin 3mg qhs - Psych consulted - Continue Zoloft 125 mg PO daily (increased from home dose) - Continue Gabapentin 100 mg at bedtime - Melatonin 3 mg PO at 1900 for sleep - Labs: TSH, Vitamin B12, Vitamin D, Mg2+, HIV/Hep B/Hep C/UA/urine tox - B12 960 - signed off Cardiovascular: PMHx Hx of HTN, HLD, CHF, Pacer, A-fib (Eliquis). Last echo 01/05, LVEF 60%. - Cardiology consulted for prolonged QT and hypothyroidism -Underlying RBBB- qTc is accepatable range -Obatin LFTs -Recommend repeating TFTs once acute illness as resolved. -Okay to continue amiodarone - EP consulted for possible PPM retraction and reprogramming - Retraction of PPM is a high risk procedure and carries 1% risk of mortality, clearly there is no indication or reason to retract the PPM along with the ortho procedure tomorrow given inc risk of mortality and also systemic infection. - Patients PPM has no battery and it isn't working now, there should not be an issue for any MRI, as we cannot re-programme it. - Patient should follow with the cardiology at [facility] for the PPM extraction. - Continue home Apixaban 5 mg BID PO for hx of atrial fibrillation, ASA (per patient only taken for general prophylaxis), amio, lipitor - Continue midodrine 10 mg scheduled before dialysis MWF Respiratory: PMHx ARASH. New cough this afternoon/evening, reporting thick secretions. Saturating well on RA. - STAT CXR. Overnight team to follow up on imaging - Maintain SpO2 > 92% - Continue pulse ox monitoring - Encourage incentive spirometry - Requiring BiPAP at bedtime - Has home CPAP prescribed, noncompliant GI/Diet/BR: PMHx GERD and gastroparesis. PO intake has improved. - Diet: continue regular; strict low K, 40 meq - Continue home Reglan (Qtc appropriate in setting of RBBB per EP) - Continue erythromycin 500mg PO BID (Qtc appropriate in setting of RBBB per EP) - reference Nutrition recommendations on 05/12 if patient with poor PO and requiring post-pyloric corpak with TF - Continue boost breeze and novasource renal - BR: senna at bedtime. Increase miralax to BID - GI ppx: pantoprazole (takes omeprazole at home) Renal: PMHx ESRD (dialysis MWF), hyponatremia - Neprhology consulted: - dialysis MWF - fistulagram obtained today due to prolonged bleeding with recent dialysis - follow up recommendations once fistulagram results - Hold phos binder for phos <5 - continue renal MVI - continue EPO with HD - Continue midodrine 10mg scheduled before dialysis MWF - BMP/Mg/Phos daily - I AND Os - Continue home Renvela - free water restriction to 500mL. Encouraging boosts/gatorades Heme: hemorrhagic shock, resolved. H/H stable at 7.9/24.6 (8.1/25.7). HDS - No acute indication for transfusion. Transfuse for hgb >7 - EPO with dialysis MWF - daily CBC ID: new cough, no leukocytosis. Afebrile. HDS. 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 Will need to hold Sonali-riri and MVI prior to labs - Lantus 8u at bedtime - sliding scale insulin QAC and at bedtime - POCT QAC and at bedtime - patient no longer takes insulin at home. Takes ozempic only. Plan to resume on discharge. MSK/Spines: Pelvic fractures (s/p percutaneous fixation posterior pelvis and removal of proximal tibia skeletal traction pin, exam under anesthesia), right distal femur fracture (s/p IMN), left scapula fracture (s/p closed treatment of left scapular body fracture without manipulation. T11 compression/DISH fx and L1-3 right TP fx (Ortho-spine, non-op) - Ortho consulted - operative management of RLE and LUE on 05/[address] Biggs - NWB BLE - WBAT LUE with no restrictions regarding shoulder motion - signed off - Ortho spine: - non operative management - uprights reviewed - PT/OT on consult - Recommend further therapy services in a Nursing Home Setting once medically cleared - Will continue to follow patient while in hospital as appropriate. - WB: BLE, WBAT LUE - Spines: cleared - Progressive mobility ordered PPx: - DVT PPx: Continue SCDs. On home eliquis. - GI PPx: continue home protonix Lines: - Maintain PIV x 2 - RUE AVF Disposition: Remain on RNF for fistulagram and nephrology recommendations. Monitor new cough. Monitor PO intake. Discharge to SNF once medically cleared. Anticipate 1-2 days. Follow up with: - Follow up with the cardiology at [facility] for the PPM extraction. - Follow up with Ortho (Dr. Biggs) in 2-3 weeks for post-operative evaluation - Follow up with Ortho-Spine (Dr. Johnson) TBD - Follow up with Endocrinology in 4 weeks for repeat thyroid function tests - Follow up with Nephrology TBD - Follow up with primary care provider regarding recent admission and incidental findings Jodee Marshall PA-C Trauma Surgery Surgical Critical Care Pager: [phone] *For urgent issues arising after 5PM during the week or on weekends/holiday, please page the trauma resident information systems auditor at [phone]. This patient's plan of care was discussed with Trauma Floor attending, Dr. Bree GRANADO, FINGERSTICK-IN OFFICE Collecte d: 05/14/2024 8:07 AM Status: F Source: THE [facility] SYSTEM TYPE CODE TESTS RESULT OUT OF RANGE REFERENCE UNITS LAB Mong[place]ian GLUCOSE, POC 117 High 74-109 mg/dL Performed By: #### [id number] ### # NURSING GLUCOSE PROGRAM [address] [place], [address] BASIC METABOLIC PANEL Collected: 2023 1:50 AM Status: F Source: [facility] TYPE CODE TESTS RESULT OUT OF RANGE REFERENCE UNITS LAB GLU GLU 172 High 74-109 mg/dL LAB NA3 NA 131 Low 136-145 mmol/L LAB POT K 3.9 3.5-5.0 mmol/L LAB CO2 CO2 27 21-31 mmol/L LAB CHLOR CL 97 Low 98-107 mmol/L LAB BUN BUN 34 High 7-25 mg/dL LAB CREAT CREAT 3.63 High 0.70-1.30 mg/dL LAB CA CA 7.5 Low 8.6-10.3 mg/dL LAB ANION GAP ANION GAP 11 10-20 LAB eGFR ESTIMATED GFR (CKD-EPI) 18 Low >=60 mL/min/1 .73sqm Result Comment: 2020 CKD EPI Equation using Creatinine without Race Comment: Estimated glomerular filtration rate (eGFR) is calculated without a race coefficient. Values should be interpreted in the context of the patient's full clinical presentation. Reference: 1. Christophe C, Sagrario M, Gena DC, et al.. A Unifying Approach for GFR Estimation: Recommendations of the NKF-ASN Task Force on Reassessing the Inclusion of Race in Diagnosing Kidney Disease. [place] Journal of Kidney Diseases 202;79(2):268- 88.e1. 2. N Engl J Med 2021 Vol. 385 Issue 19 Pages 9435-5852 Performed By: #### CH8, TANNER MG #### [facility] [address] [place], [place], MAGNESIUM Collected: 4 1:50 AM Status: F Source: [facility] [employer] TYPE CODE TESTS RESULT OUT OF RANGE REFERENCE UNITS LAB mag MG 1.9 1.9-2.7 mg/dL Performed By: #### CH8, PHOS , MG #### [facility] [address] [place] [address], PHOSPHORUS Collected: 4 1:50 AM Status: F Source: [facility] TYPE CODE TESTS RESULT OUT OF RANGE REFERENCE UNITS LAB PHOS PHOS 3.3 2.5-5.0 mg/dL Performed By: #### CH8, PHOS , MG #### [facility] [address] [place] [address], COMPLETE BLOOD COUNT Collected: 024 1:50 AM Status: F Source: [facility] [place] TYPE CODE TESTS RESULT OUT OF RANGE REFERENCE UNITS LAB WBC WBC 6.2 4.5-11.5 K/uL LAB RBC RBC 2.59 Low 4.50-5.90 M/uL LAB HGB HGB 7.9 Low 13.9-16.3 g/dL LAB HCT HCT 24.6 Low 41.0-53.0 % LAB MCV MCV 95 80-100 fL LAB MCH MCH 30.6 26.0-34.0 pg LAB MCHC MCHC 32.3 32.0-35.9 g/dL LAB PLT PLT 169 150-400 K/uL LAB RDW RDW-CV 19.9 High 11.5-14.5 % LAB MPV MPV 9.4 7.5-11.2 fL Performed By: #### CBC #### [facility] [address] [place] [address], GLUCOSE, FINGERSTICK-IN OFFICE Collecte d: 05/13/2024 9:12 PM Status: F Source: [facility] Hosted [place] TYPE CODE TESTS RESULT OUT OF RANGE REFERENCE UNITS LAB [place] GLUCOSE, POC 217 High 74-109 mg/dL Performed By: #### [id number] ### # NURSING GLUCOSE PROGRAM [address] [place] [address], [id number] PROGRESS NOTES Observed: 05/13/2024 8:41 PM Status: COMPLETED Source: [facility] DEPARTMENT OF SURGERY DIVISION OF TRAUMA, BURN, AND CRITICAL CARE TRAUMA REGULAR NURSING FLOOR DAILY PROGRESS NOTE Patient: Amado Tran, 59 year old, male : 1965 Admit Date: 04/30/2024 Room: [place] [address] Today's Date: 05/13/2024, Length of stay: 13 day(s) Code Status: Full Code Height: 5' 9 Weight: 140.7 kg BMI: 45.81 REGULAR NURSING FLOOR - STAFF NOTE Patient seen and examined on 05/13/2024 Interval History/Events: Background: Amado Tran is a 59 year old y/o male with PMH of Hyperparathyroidism, Pacemaker, ARASH, CAROL, HLD, GERD, Depression, ESRD (HD MWF, RUE AV Fistula), CKD, HTN, T2DM, Systolic HF, and atrial fibrillation on Eliquis who presented to via [facility] as an inter facility transfer from [facility] s/p Fall. Per reports Pt was at an critical access hospital [facility] location when he exited his vehicle to assist the senior quality control technician in opening his vehicle door, when he stepped behind his vehicle he accidentally fell through the floor opening aprox 6ft. Pt reports falling straight down, negative LOC, negative head strike. Pt was unable to get up under his own strength, EMS was called and Pt was extricated via EMS/FD, immobilized and transported to [facility] ED. Imaging at OSH demonstrated a Grade 1 splenic injury, multiple bilateral rib fractures, and multiple pelvic fractures. Received K-centra, as well as PRBC X 2 and Calcium Gluc. [facility] was requested for transport to for orthopedics and trauma evaluations. EN route Pt received an additional unit of whole blood. On arrival to pt alert and oriented x 3, w/ GCS-15. On 4LNC, Labile blood pressures and received an additional PRBC X 1, FFP X 1 in ED. Pt was COTE scanned again here at [facility] given the absence of contrast at OSH. Pt. Had CVC and A-line placed in ED and was admitted to TICU for respiratory and hemodynamic monitoring. Hospital Course: 04/30: Admitted to TICU s/p fall with B/L rib fxs, Pelvic fx's, and questionable Grade 1 splenic injury s/p fall at critical access hospital [facility] location. 05/01: Titrated on levophed. CBC trended. Seen by EP for pacer, no interrogation to be performed 2/2 EOL device. Upright XR done. OR deferred. Dialyzed. 05/02: Went to OR with ortho. Pressor requirements improved. 05/04: No HD, bumped due to renal emergency. Plan for 05/05. Weaning levophed as able. 05/05: Underwent iHD. Continue to wean levophed to goal of SBP > 100. N/V after breakfast, tigan x 1 with improvement. 05/06: Levophed weaned off overnight, continues on Midodrine. Hgb 6.7 today AM, repeat Type and Screen ordered with 1U RBCs. Recurrent emesis 30min after breakfast 05/07: Most recent EKG Qtc 567, will repeat. Tolerating minimal PO intake, no episodes of emesis or nausea. Discussed possibility of Corpak placement with patient if N/V and intolerance of PO intake continues. 05/08: Consult psych and EP. Encourage PO intake, plan for post-pyloric Corpak if no improvement by Saturday. HD today. 05/09: TSH 7, started synthroid and consulted endocrinology. Consulted cardiology for qTc, acceptable in setting of RBBB, want LFTs. Got 2U PRBCs and albumin due to MAPS in low 50s. Echo ordered, pending. Potential post-pyloric corpak Sat if poor PO intake. 05/11: Labile BP, otherwise asymptomatic. BP cuff mis-reading. Stable post-dialysis. Plan to transfer to floor. 05/12: transferred to [facility], BP stable One-Liner: Pt is a 59 year old male with PMH of ESRD on HD MWF, T2DM, HFrEF and atrial fibrillation on eliquis who presented as a CAT 1 trauma as a transfer from [facility] and was admitted to the TICU for multiple traumatic injuries including Grade 1 splenic injury, multiple bilateral rib fractures, multiple pelvic fractures resulting from a 6 foot fall into auto mechanical bay. S/P R femur IMN and percutaneous pelvis fixation on 05/02. Course complicated by hypotension requiring multiple blood products as well as levophed. Course also complicated by hx of gastroparesis and limited PO intake. Acute overnight events: Patient without acute events overnight. Patient eating breakfast during AM encounter today. Hypotensive this AM with systolics in 90s. Administered scheduled home midodrine at ~6:30am. Additional dose of midodrine 5mg administered just before dialysis this afternoon. Nursing notified staff this afternoon that right thigh seems more swollen today. Patient is aneuric. No BM. Reports that pain regimen is adequate and he was able to sleep well overnight. Vitals: mild hypotension this AM with SBP in 90s. No tachycardia. Normotensive. SPO2 92-100%on RA Labs: no leukocytosis. H/H slight downtrend to 8.1/25.7 (8.5/27.1). hyponatremic at 132. BUN/Cr elevated, at baseline with known ESRD. Phos 4.1. UOP: 0mL BM: x0 Vitals AND I/Os: 24 Hour Vitals Range: Vital sign ranges over the past 24 hours (retrieved 05/13/2024 at 8:42 PM): Tmax (24 hours): 98.8 ???F (37.1 ???C) Pulse Av.8 Min: 60 Max: 72 Systolic (24hrs), Av , Min:88 , Max:135 Diastolic (24hrs), Av, Min:44, Max:62 MAP (mmHg) Av.7 mmHg Min: 52 mmHg Max: 81 mmHg Resp Av Min: 18 Max: 18 SpO2 Av % Min: 92 % Max: 100 % Vital Signs: Patient Vitals for the past 24 hrs: BP Temp Temp src Pulse Resp SpO2 O2 Device FiO2 (%) 05/13/24 1807 -- -- -- -- -- -- Room air -- 05/13/24 1730 135/48 98.6 ???F (37 ???C) Oral 67 18 -- -- -- 05/13/24 1700 121/48 98.4 ???F (36.9 ???C) Oral 72 18 92 % Room air -- 05/13/24 1245 91/53 98.6 ???F (37 ???C) Oral 69 18 -- -- -- 05/13/24 1220 -- -- -- 64 18 -- Room air -- 05/13/24 1211 -- -- -- -- -- -- Room air -- 05/13/24 1210 -- -- -- 68 18 -- Room air -- 05/13/24 1205 95/58 -- -- -- -- -- -- -- 05/13/24 0952 121/49 98.4 ???F (36.9 ???C) Oral 65 18 93 % Room air -- 05/13/24 0932 -- -- -- -- -- -- Room air -- 05/13/24 0827 -- -- -- -- -- -- Room air -- 05/13/24 0809 -- -- -- 64 18 -- Room air -- 05/13/24 0759 -- -- -- 60 18 -- Room air -- 05/13/24 0730 -- -- -- -- -- -- Room air -- 05/13/24 0631 88/52 -- -- -- -- -- -- -- 05/13/24 0624 90/44 98.2 ???F (36.8 ???C) Oral 62 18 94 % Room air -- 05/13/24 0216 125/62 98.8 ???F (37.1 ???C) Axillary 63 18 100 % BiPAP -- 05/13/24 0019 -- -- -- -- -- -- BiPAP 2 05/12/240 -- -- -- 70 18 -- Room air -- 05/12/24 2130 134/57 98.2 ???F (36.8 ???C) Oral 65 18 96 % Room air -- 24 Hour I AND Os: In: 765 (5.4 mL/kg) [P.O.:525] Out: - (0 mL/kg) Net: 765 Weight: 141.2 kg Physical Exam: General: Laying down in hospital bed. Eating breakfast. NAD. Neurological: AAOx4, GCS-15. Motor and sensory grossly intact. HEENT: Normocephalic, atraumatic. Cardiac: RRR. DP/PT 2+ BLE Pulmonary: Saturating well on room air. Diminished breath sounds to bases. No wheezing, rhonchi, or rales. Abdomen: Obese, rounded, soft, non-tender, non-distended. Extremities: RLE with multiple sutured incision sites over distal lateral and medial thigh, all well approximated without any erythema. Serosanguinous drainage on dressing to right pre-tibial region. Tenderness on palpation and manipulation of RLE. Trace pedal edema. Right thigh with edema but compartments soft and compressible. Otherwise warm, well perfused. Moves all extremities spontaneously. Lab Data: 5.6 8.1 / 153 / 25.7 CBC: 05/13/2024: 2:16 AM 132 97 47 / 146 4.0 24 4.55 BMP: 05/13/2024: 2:16 AM BMP: BMP (last 3 years, up to 8 values) 05/13/2024 05/12/2024 05/11/2024 05/10/2024 05/09/2024 05/08/2024 05/07/2024 05/06/2024 2:16 AM 12:32 AM 2:36 AM 2:49 AM 1:17 AM 4:11 AM 4:20 AM 4:42 AM Na 132 133 134 134 135 131 132 132 K 4.0 4.0 4.2 4.4 4.7 4.8 4.6 4.4 Cl 97 99 100 100 99 93 94 95 CO2 24 25 26 25 24 25 24 25 Gap 15 13 12 13 17 18 19 16 Glu 146 119 141 214 124 112 99 95 BUN 47 29 47 32 35 63 55 44 Cr 4.55 3.44 4.99 3.60 4.57 7.48 6.91 5.69 Ca 7.6 7.7 7.8 7.7 7.5 7.7 7.8 7.7 eGFR 14 20 13 19 14 8 8 11 CBC: CBC (last 3 years, up to 8 values) 05/13/2024 05/12/2024 05/11/2024 05/10/2024 05/09/2024 05/09/2024 05/08/2024 05/07/2024 2:16 AM 12:32 AM 2:36 AM 2:49 AM 1:11 PM 1:17 AM 4:11 AM 4:20 AM WBC 5.6 6.5 6.1 8.5 8.6 9.4 9.2 7.1 RBC 2.68 2.84 2.80 2.80 2.89 2.20 2.35 2.40 Hgb 8.1 8.5 8.4 8.4 8.8 6.9 7.6 7.4 Hct 25.7 27.1 26.6 26.1 26.9 20.6 22.5 23.0 MCV 96 96 95 94 93 97 96 96 RDW 20.2 20.1 20.2 20.2 19.4 17.1 16.3 16.1 Plt 153 145 172 178 148 151 155 116 PT/PTT/INR: PT/PTT/INR (last 3 years, up to 8 values) 05/01/2024 05/01/2024 04/30/2024 4:51 PM 10:10 AM 8:44 PM aPTT 29 -- -- INR -- 1.16 1.29 Hepatic Panel: LFT's (last 3 years, up to 8 values) 05/10/2024 2:49 AM T Prot 5.1 Albumin 2.6 D Bili 0.27 T Bili 0.7 Alk Phos 65 ALT 5 AST 63 Glucose: Fingerstick Glucose (last 72 hours) (Last 10 results in the past 72 hours) Glucose 05/13/24 1748 139 05/13/24 1142 195 05/13/24 0724 157 05/12/24 2018 193 Comment: Notified RN RONY LOPEZ
05/12/24 1637 199 05/12/24 1137 171 05/12/24 0736 108 05/11/24 2151 119 05/11/24 1700 245 05/11/24 1131 132 TSH: Lab Results Component Value Date TSH 7.124 (H) 05/09/2024 Wt Readings from Last 5 Encounters: 05/13/24 (!) 310 lb 3 oz (140.7 kg) Imaging Results (over previous 24 hours): No new imaging results. Assessment and Plan: Diagnosis s/p fall down ~ 6Ft hole: - Right L1-L3 TP Fx - Anterior tension ban disruption of T11 - Right superior/inferior pubic rami Fx w/ extension into acetab - Left scapular Fx w/ intramuscular shoulder hematoma - Bilateral sacral Ala Fx - Right 2,3,4,5,6,7,8 Rib Fx - Left 4,5,6,7,8 Rib Fx - Bilateral pulmonary contusions - Right pleural effusion - Trace hemoperitoneum - Right distal femur fx - Acute blood loss anemia - Hemorrhagic shock - Shock of unknown etiology Associated Hospital Diagnosis: - Hyperkalemia - Hypomagnesemia - Recurrent Nausea/Vomiting PMH: - Hyperparathyroidism - ARASH - CAROL - Atrial- Fibrillation - HTN - HLD - Pacer - GERD - ESRD - Depression - CKD - T2DM - CHF - Gastroparesis Home Medications: ASA 81mg daily Insulin NPH (70U BID) Pioglitazone 30mg daily Sertraline 100mg daily Amiodarone 200mg daily Sevelamer 1600mg TID Apixaban 5mg BID Atorvastatin 40mg daily Gabapentin 100mg qHS Midodrine 10mg with dialysis Omeprazole 40mg daily Metoclopramide 10mg QID Furosemide 40mg BID Isosorbide Mononitrate 20mg q12h Metoprolol 25mg Daily Incidental Findings: - Cholelithiasis - Indeterminate right adrenal nodule Plan: Neurological: # Acute post traumatic pain # Hx of Depression - Analgesia - Acetaminophen 1G Q6hrs sched - Continue Oxycodone to 2.5/5 mg Q4hrs PRN - Lidocaine - 2 patch Q24h - Robaxin 750mg Q6H - Psych consulted - Increased Zoloft to 125 mg PO daily - Continue Gabapentin 100 mg at bedtime - Melatonin 3 mg PO at 1900 for sleep - Labs: TSH, Vitamin B12, Vitamin D, Mg2+, HIV/Hep B/Hep C/UA/urine tox - B12 960 Cardiovascular: # Hx of HTN, HLD, CHF, Pacer, A-fib - Continue home Apixaban 5 mg BID PO for hx of atrial fibrillation, ASA (per patient only taken for general prophylaxis), amio, lipitor - Continue midodrine 10 mg scheduled before dialysis MWF - administered onetime dose of midodrine 5mg prior to dialysis - Last echo 01/05, LVEF 60%. - EP consulted due to prolonged qTc -Underlying RBBB - qTc is accepatable range -Obatin LFTs -Recommend repeating TFTs once acute illness as resolved -Okay to continue amiodarone - Patient should follow with the cardiology at [facility] for the PPM extraction. Respiratory: # Hx of ARASH - Saturating well on room air - Maintain SpO2 > 92% - Continue pulse ox monitoring - Encourage incentive spirometry - Requiring BiPAP at bedtime - Has home CPAP prescribed, noncompliant GI/Diet: # Hx of GERD # Hx of Gastroparesis - Diet: Regular; Strict Low K, 40 mEq; improved PO intake - Continue home Reglan (qTc appropriate in setting of RBBB per EP) - Continue erythromycin 500 mg PO BID (qTc appropriate in setting of RBBB per EP) - Nutrition consulted -Continue oral supplements. Boost Breeze with breakfast - K+ free. Novasource Renal BID - low K+ -Encourage small frequent meals - aim for BG <180. Consider downgrading to FLD if n/v persists with solid food intake -If persistent n/v may need evaluate need for post-pyloric corpak placement. Novasource Renal. Initiate at 10 mL/hr and advance by 10 mL/hr q 6 hours to a goal rate of 50 mL/hr. Liquacel 1 packet TID. Will provide: 1080 mL TF, 2160 kcal, 98 g protein, 774 mL free water + 300 kcal, 48 g protein from liquacel -History of folate deficiency and low B12 - recheck. Check vitamin D 25 OH -PO intake improved. If poor PO with N/V, consider post-pyloric corpak - Bowel reg: Senna 8.6 mg PO - GI ppx: pantoprazole (takes omeprazole at home) Renal/Electrolytes: # Hx of ESRD - Nephro consulted: - MWF HD - Continue midodrine prior to HD - Renal MV and Renal diet - BMP/Mg/P daily - Replace electrolytes as indicated - Maintain Mg >2, K >4 - Measure strict I AND O - Continue home Renvela Infectious Disease: # no acute issues - Afebrile, without leukocytosis - Monitor temperature and WBC for signs of infection Hematology: # Hemorrhagic shock - H/H downtrend to 8.1 (8.5), suspect equilibrating. Right thigh is edematous but soft/compressible - T AND S (05/10) - CBC daily - Maintain hemoglobin >7 - Retacrit with dialysis Endocrine: # Hx of Hyperparathyroidism, T2DM # Hypothyroidism, 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 Plan to restart on discharge. Musculoskeletal: # Pelvic Fx's # Right distal femur fx # Left Scapula Fx # S/p OR 05/02 - Progressive mobility - Ortho consulted, following peripherally - NWB BLE - Pain control: recommend multimodal -PT/OT consult - DVT ppx: eliquis per primary -FU with Dr. Chu in 2 weeks at [facility] -Orthopaedics will continue to follow peripherally - PT/OT - Recommend further therapy services in a Nursing Home Setting once medically cleared - Will continue to follow patient while in hospital as appropriate. - PMR Consulted - Ortho spine (05/01): - No acute spine interventions indicated Prophylaxis: - SCDs bilaterally - On therapeutic anticoagulation via home Eliquis - Protonix Follow Up: - PCP: No primary care provider on file. - Ortho: with Dr. Chu in 2 weeks at [facility] - Endocrine: Repeat the TSH as outpt in 4 weeks, hold the sonali riri vitamin for 4 days prior to the blood work LDA/Restraints: - PIV X 2 - RUE AVF Code Status: - Full Code Disposition: - Remain on RNF for H/H trend and monitoring of right thigh edema. - PO intake improved today. Do not suspect patient will require corpak - long term setting once medically cleared Jodee Marshall PA-C Trauma Surgery Surgical Critical Care Pager: [phone] *For urgent issues arising after 5PM during the week or on weekends/holiday, please page the trauma resident information systems auditor at [phone]. This patient's plan of care was discussed with Trauma Floor attending, Dr. Giron PROGRESS NOTES - NOTEWRITER Observed: 05/13/2024 6:26 PM Status: COMPLETED Source: [facility] HD today for 4 hours via [facility]. Tolerated tx well. Net UF 500 ml. Homeostasis of RAVF achieved after approximately 30 minutes each site. Pt reports bleeding long the last tx. Also, BFR decreased to 300 toward end of tx due to high AP. Clementine Alcantara CNP made aware. Pt received Retacrit 80836 units with HD. All HD charting via [facility] paper chart. Hnad soff to Sydnee Duke RN. GLUCOSE, FINGERSTICK-IN OFFICE Collecte d: 05/13/2024 5:48 PM Status: F Source: [facility] TYPE CODE TESTS RESULT OUT OF RANGE REFERENCE UNITS LAB [place] GLUCOSE, POC 139 High 74-109 mg/dL Performed By: #### [id number] ### # NURSING GLUCOSE PROGRAM [address] [place], [address] PROGRESS NOTES Observed: 05/13/2024 3:22 PM Status: COMPLETED Source: [facility] Case Management Patient is not medically clear. He has been accepted at [facility] is complete. CM will remain available to assist with discharge planning and needs as warranted. Marizol KIMBLE, RN Inpatient [place] Worker [employer] [facility] M-F [id number] GLUCOSE, FINGERSTICK-IN OFFICE Collecte d: 05/13/2024 11:42 AM Status: F Source: [facility] TYPE CODE TESTS RESULT OUT OF RANGE REFERENCE UNITS LAB [place] GLUCOSE, POC 195 High 74-109 mg/dL Performed By: #### [id number] ### # NURSING GLUCOSE PROGRAM [address] [place], [address] PROGRESS NOTES Observed: 05/13/2024 9:01 AM Status: COMPLETED Source: [facility] Procedure Note for ESRD (N18.6) Access: RAVF Bath: 3K Fluid removal goal: 900ml as tolerated Vitals: 105/47 65 Patient seen and evaluated during dialysis. Pt dialyzing without difficulties. PT denies SOB, CP, HAIR, N/V Medications reviewed Dialysis flowsheets reviewed melatonin 3 mg At Bedtime senna 8.6 mg At Bedtime aspirin EC 81 mg Daily polyethylene glycol 17 g Daily midodrine 10 mg Q M, W AND F insulin glargine 8 Units At Bedtime metoclopramide 5 mg Every 8 hours erythromycin base 500 mg 2x Daily levothyroxine 50 mcg Before Breakfast sertraline 125 mg Daily folic acid 1 mg Daily vitamin D2 ergocalciferol 50,000 Units Q7 Days cholecalciferol 1,000 Units Daily Normal consistency 2x Daily with Meals Normal consistency Daily with breakfast Apixaban 5 mg 2x Daily Sonali-Riri RX 1 Tablet Daily insulin regular 4-14 Units 4x Daily AC AND HS methocarbamol 750 mg Every 6 hours epoetin antione-epbx 10,000 Units Q M, W AND F acetaminophen 1,000 mg q6h nystatin 2x Daily albuterol 2.5 mg QID RT sevelamer carbonate 800 mg 3x Daily with Meals amiodarone 200 mg Daily atorvastatin 40 mg At Bedtime gabapentin 100 mg At Bedtime pantoprazole 40 mg Daily 30 min before breakfast lidocaine 2 Patch Every 24 hours trimethobenzamide 100 mg Q12H PRN oxyCODONE 10 mg Q4H PRN oxyCODONE 5 mg Q4H PRN albuterol 2.5 mg Q4H PRN dextrose iv for hypoglycemia orderable 125 mL PRN Or glucagon 1 mg PRN Or dextrose 15 g of glucose PRN Or dextrose 30 g of glucose PRN Patient Vitals for the past 24 hrs: BP Temp Temp src Pulse Resp SpO2 O2 Device FiO2 (%) 05/13/24 0827 -- -- -- -- -- -- Room air -- 05/13/24 0809 -- -- -- 64 18 -- Room air -- 05/13/24 0759 -- -- -- 60 18 -- Room air -- 05/13/24 0730 -- -- -- -- -- -- Room air -- 05/13/24 0631 88/52 -- -- -- -- -- -- -- 05/13/24 0624 90/44 98.2 ???F (36.8 ???C) Oral 62 18 94 % Room air -- 05/13/24 0216 125/62 98.8 ???F (37.1 ???C) Axillary 63 18 100 % BiPAP -- 05/13/24 0019 -- -- -- -- -- -- BiPAP 2 05/12/242199 -- -- -- 70 18 -- Room air -- 05/12/24 2130 134/57 98.2 ???F (36.8 ???C) Oral 65 18 96 % Room air -- 05/12/24 1944 -- -- -- -- -- -- Room air -- 05/12/24 1813 140/60 98.1 ???F (36.7 ???C) Oral 69 18 97 % Room air -- 05/12/24 1743 105/53 -- -- 68 -- -- -- -- 05/12/24 1700 -- -- -- -- -- -- Room air -- 05/12/24 1634 -- -- -- -- 16 -- -- -- 05/12/24 1616 -- -- -- -- -- -- Room air -- 05/12/24 1525 -- -- -- -- -- -- Room air -- 05/12/24 1523 103/38 -- -- 70 -- -- -- -- 05/12/24 1509 -- -- -- -- -- -- Room air -- 05/12/24 1448 97/35 98.1 ???F (36.7 ???C) Oral 68 18 92 % Room air -- 05/12/24 1422 -- -- -- -- -- -- Room air -- 05/12/24 1316 -- -- -- -- -- -- Room air -- 05/12/24 1229 -- -- -- 66 18 -- Room air -- 05/12/24 1209 -- -- -- -- -- -- Room air -- 05/12/24 1108 -- -- -- -- -- -- Room air -- 05/12/24 1031 120/50 98.1 ???F (36.7 ???C) Oral 67 18 93 % Room air -- 05/12/24 1007 -- -- -- -- -- -- Room air -- 05/12/24 0927 -- -- -- -- -- -- Room air -- 05/12/24 0918 116/49 97.9 ???F (36.6 ???C) Oral 60 16 97 % Room air -- 05/12/24 0905 -- -- -- -- -- -- Room air -- CBC 05/13/2024 05/12/2024 05/11/2024 05/10/2024 05/09/2024 05/09/2024 05/08/2024 05/07/2024 2:16 AM 12:32 AM 2:36 AM 2:49 AM 1:11 PM 1:17 AM 4:11 AM 4:20 AM WBC 5.6 6.5 6.1 8.5 8.6 9.4 9.2 7.1 RBC 2.68 2.84 2.80 2.80 2.89 2.20 2.35 2.40 Hgb 8.1 8.5 8.4 8.4 8.8 6.9 7.6 7.4 Hct 25.7 27.1 26.6 26.1 26.9 20.6 22.5 23.0 MCV 96 96 95 94 93 97 96 96 RDW 20.2 20.1 20.2 20.2 19.4 17.1 16.3 16.1 Plt 153 145 172 178 148 151 155 116 BMP (last 1 year, up to 8 values) 05/13/2024 05/12/2024 05/11/2024 05/10/2024 05/09/2024 05/08/2024 05/07/2024 05/06/2024 2:16 AM 12:32 AM 2:36 AM 2:49 AM 1:17 AM 4:11 AM 4:20 AM 4:42 AM Na 132 133 134 134 135 131 132 132 K 4.0 4.0 4.2 4.4 4.7 4.8 4.6 4.4 Cl 97 99 100 100 99 93 94 95 CO2 24 25 26 25 24 25 24 25 Gap 15 13 12 13 17 18 19 16 Glu 146 119 141 214 124 112 99 95 BUN 47 29 47 32 35 63 55 44 Cr 4.55 3.44 4.99 3.60 4.57 7.48 6.91 5.69 Ca 7.6 7.7 7.8 7.7 7.5 7.7 7.8 7.7 eGFR 14 20 13 19 14 8 8 11 Mg 2.1 1.9 2.2 2.1 2.1 2.5 2.2 2.1 PO4 4.1 2.2 3.5 3.6 4.3 6.5 6.7 5.2 Cultures: Urine Culture No lab values to display. Blood Culture No lab values to display. A/P: Amado Tran is a 59 year old y/o male with PMH of Hyperparathyroidism, Pacemaker, ARASH, CAROL, HLD, GERD, Depression, ESRD (HD MWF, RUE AV Fistula), CKD, HTN, T2DM, Systolic HF, and atrial fibrillation on Eliquis who presented to via [facility] as an inter facility transfer from [facility] s/p Fall. #ESRD MWF @ [facility] Access-RAVF -HD today per submitted order, continue MWF schedule #Bp/Volume Bp's labile -continue midodrine with HD #electrolyte/acid base K 4, stable Bicarb 24, stable #Anemia Hgb 8.1 -continue EPO with HD -transfuse hgb <7 #MBD Calcium 7.6, phos 4.1 -hold phos binder for phos < 5 -continue renal MVI Renally dose all meds to ESRD Strict I/O's, daily weights, low k diet Clementine Alcantara APRN-[facility] Division of Nephrology AND Hypertension Pager: [phone] GLUCOSE, FINGERSTICK-IN OFFICE Collecte d: 05/13/2024 7:24 AM Status: F Source: [facility] TYPE CODE TESTS RESULT OUT OF RANGE REFERENCE UNITS LAB [place] GLUCOSE, POC 157 High 74-109 mg/dL Performed By: #### [id number] ### # NURSING GLUCOSE PROGRAM [address] [place] [address], [id number] PROGRESS NOTES Observed: 05/13/2024 6:40 AM Status: COMPLETED Source: [facility] 05/13/24 0624 05/13/24 0631 Vital Signs Heart Rate 62 -- Respiratory Rate 18 -- BP 90/44 (RN notified) 88/52 (manual, RN aware) MAP (mmHg) 58 mmHg -- MD notified of above vital signs. New order received. COMPLETE BLOOD COUNT Collected: 024 2:16 AM Status: F Source: [facility] TYPE CODE TESTS RESULT OUT OF RANGE REFERENCE UNITS LAB WBC WBC 5.6 4.5-11.5 K/uL LAB RBC RBC 2.68 Low 4.50-5.90 M/uL LAB HGB HGB 8.1 Low 13.9-16.3 g/dL LAB HCT HCT 25.7 Low 41.0-53.0 % LAB MCV MCV 96 80-100 fL LAB MCH MCH 30.3 26.0-34.0 pg LAB MCHC MCHC 31.7 Low 32.0-35.9 g/dL LAB PLT PLT 153 150-400 K/uL LAB RDW RDW-CV 20.2 High 11.5-14.5 % LAB MPV MPV 9.0 7.5-11.2 fL Performed By: #### CBC #### [facility] [address] [place] [address], MAGNESIUM Collected: 2:16 AM Status: F [facility] TYPE CODE TESTS RESULT OUT OF RANGE REFERENCE UNITS LAB mag MG 2.1 1.9-2.7 mg/dL Performed By: #### MG, PHOS, CH8 #### [facility] PATHOLOGY LABORATORY [address] [place] [address], PHOSPHORUS Collected: 2:16 AM Status: F [facility] TYPE CODE TESTS RESULT OUT OF RANGE REFERENCE UNITS LAB PHOS PHOS 4.1 2.5-5.0 mg/dL Performed By: #### MG, PHOS, CH8 #### [facility] [address] [place] [address], BASIC METABOLIC PANEL Collected: 2023 2:16 AM Status: F [facility] TYPE CODE TESTS RESULT OUT OF RANGE REFERENCE UNITS LAB GLU GLU 146 High 74-109 mg/dL LAB NA3 NA 132 Low 136-145 mmol/L LAB POT K 4.0 3.5-5.0 mmol/L LAB CO2 CO2 24 21-31 mmol/L LAB CHLOR CL 97 Low 98-107 mmol/L LAB BUN BUN 47 High 7-25 mg/dL LAB CREAT CREAT 4.55 High 0.70-1.30 mg/dL LAB CA CA 7.6 Low 8.6-10.3 mg/dL LAB ANION GAP ANION GAP 15 10-20 LAB eGFR ESTIMATED GFR (CKD-EPI) 14 Low >=60 mL/min/1 .73sqm Result Comment: 2020 CKD EPI Equation using Creatinine without Race Comment: Estimated glomerular filtration rate (eGFR) is calculated without a race coefficient. Values should be interpreted in the context of the patient's full clinical presentation. Reference: 1. Christophe Nash Baweja M, Gena YUAN, et al.. A Unifying Approach for GFR Estimation: Recommendations of the NKF-ASN Task Force on Reassessing the Inclusion of Race in Diagnosing Kidney Disease. [place] Journal of Kidney Diseases 2021;79(2):268- 88.e1. 2. N Engl J Med 1 Vol. 385 Issue 19 Pages 2197-8019 Performed By: #### MG PHOBhaskar, CH8 #### [facility] [address] [place], [address] GLUCOSE, FINGERSTICK-IN OFFICE Collecte d: 05/12/2024 8:18 PM Status: F Source: [facility] TYPE CODE TESTS RESULT OUT OF RANGE REFERENCE UNITS LAB [place] GLUCOSE, POC 193 High 74-109 mg/dL Result Comment: Notified RN RONY LOPEZ Performed By: #### [id number] ### # NURSING GLUCOSE PROGRAM [address] [place] [address], [address] GLUCOSE, FINGERSTICK-IN OFFICE Collecte d: 05/12/2024 4:37 PM Status: F Source: [facility] TYPE CODE TESTS RESULT OUT OF RANGE REFERENCE UNITS LAB Mong[place] GLUCOSE, POC 199 High 74-109 mg/dL Performed By: #### [id number] ### # NURSING GLUCOSE PROGRAM [address] [place], [address] CONSULTS Observed: 05/12/2024 3:37 PM Status: COMPLETED Source: [facility] Nutrition As sessment Reason for Visit: 7 day follow up Nutrition Assessment: Admitting Diagnosis: TRAUMA: Fall 6 ft multiple fractures. hypotensive No past medical history on file. is allergic to: Allergies Allergen Reactions Penicillins Faint Feeling Pt states when he was approx 5 years old he passed out after taking PCN Nutritionally Significant Meds: vitamin D, retacrit, folic acid, lantus, humulin, synthroid, reglan, nystatin, protonix, miralax, senna, renvela, Na phos, drisdol Labs: Basic Metabolic Panel 05/12/2024 05/11/2024 05/10/2024 12:32 AM 2:36 AM 2:49 AM Na 133 134 134 K 4.0 4.2 4.4 Cl 99 100 100 CO2 25 26 25 Gap 13 12 13 Glu 119 141 214 BUN 29 47 32 Cr 3.44 4.99 3.60 Ca 7.7 7.8 7.7 Mg 1.9 2.2 2.1 PO4 2.2 3.5 3.6 CBC (last 3 years, up to 8 values) 05/12/2024 05/11/2024 05/10/2024 05/09/2024 05/09/2024 05/08/2024 05/07/2024 05/06/2024 12:32 AM 2:36 AM 2:49 AM 1:11 PM 1:17 AM 4:11 AM 4:20 AM 6:32 PM WBC 6.5 6.1 8.5 8.6 9.4 9.2 7.1 8.1 RBC 2.84 2.80 2.80 2.89 2.20 2.35 2.40 2.61 Hgb 8.5 8.4 8.4 8.8 6.9 7.6 7.4 8.3 Hct 27.1 26.6 26.1 26.9 20.6 22.5 23.0 25.4 MCV 96 95 94 93 97 96 96 97 RDW 20.1 20.2 20.2 19.4 17.1 16.3 16.1 16.6 Plt 145 172 178 148 151 155 116 127 LFT's (last 3 years, up to 8 values) 05/10/2024 2:49 AM T Prot 5.1 Albumin 2.6 D Bili 0.27 T Bili 0.7 Alk Phos 65 ALT 5 AST 63 Fingerstick Glucose (last 72 hours) (Last 10 results in the past 72 hours) Glucose 05/12/24 1137 171 05/12/24 0736 108 05/11/24 2151 119 05/11/24 1700 245 05/11/24 1131 132 05/11/24 0801 129 Comment: Notified FRANNIE URIBE MD
05/10/24 2016 282 05/10/24 1658 260 05/10/24 1211 185 05/10/24 0804 190 05/06/2024 4:42 AM Vitamin D, 25-OH 12.3 (L) Vital sign ranges over the past 24 hours (retrieved 05/12/2024 at 3:38 PM): Tmax (24 hours): 99 ???F (37.2 ???C) Pulse Av.8 Min: 60 Max: 81 Systolic (24hrs), Av , Min:97 , Max:127 Diastolic (24hrs), Av, Min:35, Max:93 MAP (mmHg) Av.1 mmHg Min: 51 mmHg Max: 101 mmHg Resp Av.4 Min: 16 Max: 24 SpO2 Av.3 % Min: 59 % Max: 100 % Intake/Output Summary (Last 24 hours) at 05/12/2024 1538 Last data filed at 05/12/2024 1403 Gross per 24 hour Intake 795 ml Output 0 ml Net 795 ml BM: 05/11 Diet Order: strict low K % PO intake 25-75% Supplement order: Boost Kemar, Michaelasjeff Renal ? Height: 5' 9 Weight: 141.2 kg IBW: 72.8 kg %IBW: 196 BMI: 45.97: Obese III Weight hx: BODY MASS INDEX Kg Lbs 04/30/2024 8:25 PM 142.656 kg (H) 314 lb 8 oz (H) 04/30/2024 11:08 PM 142.429 kg (H) 314 lb (H) 05/08/2024 8:00 AM 142.4 kg (H) 313 lb 15 oz (H) 05/08/2024 8:30 AM 142.7 kg (H) 314 lb 9.5 oz (H) 05/08/2024 12:30 PM 141.2 kg (H) 311 lb 4.6 oz (H) 05/11/2024 9:15 AM 141.2 kg (H) 311 lb 4.6 oz (H) Nutrition Focused Physical Exam: Muscle loss: none Fat loss: none Edema: generalized nonpitting Hair/Nails/Skin: see integumentary flow sheet Eyes/Nose/Mouth: NC Estimated needs: 5065-6259 kcal/d 17-22 kcal/kg [DVH=9980 kcal] 145-180 g pro/d 2-2.5 g pro/kg IBW Assessment: 59 year old y/o male with PMH of Hyperparathyroidism, Pacemaker, ARASH, CAROL, HLD, GERD, Depression, ESRD (HD MWF, RUE AV Fistula), CKD, HTN, T2DM, Systolic HF, and atrial fibrillation on Eliquis who presented to via [facility] as an inter facility transfer from [facility] s/p Fall. Per reports Pt [facility] at an [facility] location when he exited his vehicle to assist the senior quality control technician in opening his vehicle door, when he stepped behind his vehicle he accidentally fell through the floor opening aprox 6ft. Pt reports falling straight down, negative LOC, negative head strike. Pt was unable to get up under his own strength, EMS was called and Pt was extricated via EMS/FD, immobilized and transported to [facility] ED. Imaging at OSH demonstrated a Grade 1 splenic injury, multiple bilateral rib fractures, and multiple pelvic fractures. Received K-centra, as well as PRBC X 2 and Calcium Gluc. [facility] was requested for transport to for orthopedics and trauma evaluations. EN route Pt received an additional unit of whole blood. On arrival to pt alert and oriented x 3, w/ GCS-15. On 4LNC, Labile blood pressures and received an additional PRBC X 1, FFP X 1 in ED. Pt was COTE scanned again here at [facility] given the absence of contrast at OSH. Pt. Had CVC and A-line placed in ED and was admitted to TICU for respiratory and hemodynamic monitoring. Hospital Course: 04/30: Admitted to TICU s/p fall with B/L rib fxs, Pelvic fx's, and questionable Grade 1 splenic injury s/p fall at [facility] location. 05/01: Titrated on levophed. CBC trended. Seen by EP for pacer, no interrogation to be performed 2/2 EOL device. Upright XR done. OR deferred. Dialyzed. 05/02: Went to OR with ortho. Pressor requirements improved. 05/04: No HD, bumped due to renal emergency. Plan for 05/05. Weaning levophed as able. 05/05: Underwent iHD. Continue to wean levophed to goal of SBP > 100. N/V after breakfast, tigan x 1 with improvement. 05/06: Levophed weaned off overnight, continues on Midodrine. Hgb 6.7 today AM, repeat Type and Screen ordered with 1U RBCs. Recurrent emesis 30min after breakfast 05/07: Most recent EKG Qtc 567, will repeat. Tolerating minimal PO intake, no episodes of emesis or nausea. Discussed possibility of Corpak placement with patient if N/V and intolerance of PO intake continues. 05/08: Consult psych and EP. Encourage PO intake, plan for post-pyloric Corpak if no improvement by Saturday. HD today. 05/09: TSH 7, started synthroid and consulted endocrinology. Consulted cardiology for qTc, acceptable in setting of RBBB, want LFTs. Got 2U PRBCs and albumin due to MAPS in low 50s. Echo ordered, pending. Potential post-pyloric corpak Mon if poor PO intake. 05/11: Labile BP, otherwise asymptomatic. BP cuff mis-reading. Stable post-dialysis. Plan to transfer to floor. At this follow up, Pt is on a strict low K diet. K levels are WNL. Phos low, may consider holding binder. Vitamin D low, being supplemented. BG levels appearing well controlled. PO intake improving, 25-75% of meals consumed per intake flow sheet. No problems chewing/swallowing. No emesis since 05/05, last BM 05/11. Pt receiving Boost Breeze and Novasource Renal with meals, please continue. If tube feeds become indicated, see recs below. Thank you. ? Nutrition Interventions: 1. Diet Continue strict low K as needed Continue Boost Breeze, Novasource Renal 2. Hold phos binder PRN 3. Adjust insulin coverage to meet glycemic goals <140 fasting <180 post prandial (2 hrs) 4. If tube feeds indicated Novasource Renal. Initiate at 10 mL/hr and advance by 10 mL/hr q 6 hours to a goal rate of 50 mL/hr. Liquacel 1 packet TID Will provide: 1080 mL TF, 2160 kcal, 98 g protein, 774 mL free water + 300 kcal, 48 g protein from liquacel Will continue to follow Rojelio Cronin RD, LD Personal Pager [phone] Bronze Chaser Pager: [phone] Time spent on patient care: 45 minutes CONSULTS Observed: 05/12/2024 3:23 PM Status: COMPLETED Source: [facility] OCCUPATIONAL THERAPY ESAU Muro SUMMARY Patient seen from 1110 to 1134 on GC5E unit for 24 minute treatment. Pt seen with professional assist of PT for safety and progression of mobility SUBJECTIVE: Patient Subjective/Goals: I don't know if I can do this. OBJECTIVE: Pain: pain in L shoulder and RLE, level unrated Pain Relief Interventions Implemented: None required; No pain at this time and RN aware and reports patient received medication according to time schedule Appearance/Behavior: Supine, IV, obese. Pt agreeable to participate in therapy Cognition: Aox3 UE Status: RUE AROM and strength WFL LUE AROM of hand, wrist, and elbow WFL, shoulder 1/4 AROM, 1/2 PROM Self Care: Assistance Level NA Dep Max Mod Min CG CS DS DE I Set-Up Cues Comment Feeding x Grooming/ Hygiene x seated Bathing: Upper Body x Simulated sponge bathing Bathing: Lower Body x Simulated sponge bathing Dressing: Upper Body x Anticipated to don shirt Dressing: Lower Body x Anticipated to don pants Toileting x Anticipated Toilet Transfers x2 Anticipated Bed Transfer x2 Sit pivot transfer from EOB to drop arm recliner via transfer board. Pt encouraged to engage UEs Bed Mobility x2 Supine to sit EOB via pinwheel maneuver Endurance for Self Care: Impaired Patient/Family Education: Instructed patient in roles of therapy, importance of OOB activity and occupational engagement, discharge planning, fall prevention DME: With Patients permission ordered no equipment via [employer] Order. If any questions contact [facility] DME Provider at [phone]. 05/12/2024 6 Clicks Daily Activity OT Help from another person Eating meals 4 Help from another person taking care of personal grooming 3 Help from another person bathing 2 Help from another person putting on and taking off regular upper body clothing 2 Help from another person putting on and taking off regular lower body clothing 1 Help from another person toileting 1 OT 6 Clicks Score 13 6 Click Score Guidelines: 1 - Unable = Total/Dependent Assist 2 - A lot = Max/Moderate Assist 3 - A little = Minimum/Contact Guard Assist/Supervision 4 - Non = Modified [place]/Independent ASSESSMENT: Recommend further therapy services in a Skilled Rehab Setting once medically cleared. Will continue to follow patient while in hospital as appropriate. Goals (to be achieved by discharge from acute care): Patient will perform grooming with Distant supervision Patient will dress upper body with Contact Guard Patient will perform bed mobility with Moderate assistance Patient will perform bed transfers with Moderate assistance x 2 using slide board Patient will increase endurance sufficient to perform 10 min ADL with rest breaks PRN Patient will increase ROM in left UE for max level of ADL independently Demonstrate pain-free functional PROM in left UE. Patient will demonstrate safety awareness as evidenced by compliance with NWB BLE for ADL and mobility Report reduced pain level to allow for participation in ADL/IADL PLAN: Continue with Plan as per Initial Evaluation. Michelle Lopez OT NA = Not Assessed, I = Independent, DE = Modified Independent, Sup = Supervised, Set up = Physical Assistance for Set-up Only, Min = Minimal Assistance, Mod = Moderate Assistance, Max = Max assistance; Dep = Dependent; AROM = Active Range of Motion;PROM=Passive Range of Motion; MMT = Manual Muscle Test; Shld= Shoulder; Add = Adduction; Abd = Abduction PROGRESS NOTES Observed: 05/12/2024 2:04 PM Status: COMPLETED Source: [facility] SYSTEM Attestation signed by Guillermo Giron MD at 05/12/2024 3:50 PM I have personally seen and examined the patient with the team and nursing staff at the patient's bedside. I have reviewed recent data and reports. I have also reviewed lab values, imaging, and current medications profile. I discussed my findings with the team. I reviewed the full note by the resident with the detailed findings, and I agree with the assessment, overall impression, and plan of care. We have also updated the patient or any available family as well as other services with our care plan. Guillermo Giron MD DEPARTMENT OF SURGERY DIVISION OF TRAUMA, BURN, AND CRITICAL CARE TRAUMA INTENSIVE CARE UNIT (TICU) DAILY PROGRESS NOTE Patient: Amado Tran, 59 year old, male : 1965 Admit Date: 04/30/2024 Room: [place] [address] Today's Date: 05/12/2024, Length of stay: 12 day(s) Code Status: Full Code Height: 5' 9 Weight: 141.2 kg BMI: 45.97 SURGICAL ICU - STAFF NOTE Patient seen and examined on 05/12/2024 Interval History/Events: Background: Amado Tran is a 59 year old y/o male with PMH of Hyperparathyroidism, Pacemaker, ARASH, CAROL, HLD, GERD, Depression, ESRD (HD MWF, RUE AV Fistula), CKD, HTN, T2DM, Systolic HF, and atrial fibrillation on Eliquis who presented to via [facility] as an inter facility transfer from [facility] s/p Fall. Per reports Pt was at an [facility] location when he exited his vehicle to assist the senior quality control technician in opening his vehicle door, when he stepped behind his vehicle he accidentally fell through the floor opening aprox 6ft. Pt reports falling straight down, negative LOC, negative head strike. Pt was unable to get up under his own strength, EMS was called and Pt was extricated via EMS/FD, immobilized and transported to [facility] ED. Imaging at OSH demonstrated a Grade 1 splenic injury, multiple bilateral rib fractures, and multiple pelvic fractures. Received K-centra, as well as PRBC X 2 and Calcium Gluc. [facility] was requested for transport to for orthopedics and trauma evaluations. EN route Pt received an additional unit of whole blood. On arrival to pt alert and oriented x 3, w/ GCS-15. On 4LNC, Labile blood pressures and received an additional PRBC X 1, FFP X 1 in ED. Pt was COTE scanned again here at [facility] given the absence of contrast at OSH. Pt. Had CVC and A-line placed in ED and was admitted to TICU for respiratory and hemodynamic monitoring. Hospital Course: 04/30: Admitted to TICU s/p fall with B/L rib fxs, Pelvic fx's, and questionable Grade 1 splenic injury s/p fall at [facility] location. 05/01: Titrated on levophed. CBC trended. Seen by EP for pacer, no interrogation to be performed 2/2 EOL device. Upright XR done. OR deferred. Dialyzed. 05/02: Went to OR with ortho. Pressor requirements improved. 05/04: No HD, bumped due to renal emergency. Plan for 05/05. Weaning levophed as able. 05/05: Underwent iHD. Continue to wean levophed to goal of SBP > 100. N/V after breakfast, tigan x 1 with improvement. 05/06: Levophed weaned off overnight, continues on Midodrine. Hgb 6.7 today AM, repeat Type and Screen ordered with 1U RBCs. Recurrent emesis 30min after breakfast 05/07: Most recent EKG Qtc 567, will repeat. Tolerating minimal PO intake, no episodes of emesis or nausea. Discussed possibility of Corpak placement with patient if N/V and intolerance of PO intake continues. 05/08: Consult psych and EP. Encourage PO intake, plan for post-pyloric Corpak if no improvement by Saturday. HD today. 05/09: TSH 7, started synthroid and consulted endocrinology. Consulted cardiology for qTc, acceptable in setting of RBBB, want LFTs. Got 2U PRBCs and albumin due to MAPS in low 50s. Echo ordered, pending. Potential post-pyloric corpak Mon if poor PO intake. 05/11: Labile BP, otherwise asymptomatic. BP cuff mis-reading. Stable post-dialysis. Plan to transfer to floor. One-Liner: Pt is a 59 year old male with PMH of ESRD on HD MWF, T2DM, HFrEF and atrial fibrillation on eliquis who presented as a CAT 1 trauma as a transfer from [facility] and was admitted to the TICU for multiple traumatic injuries including Grade 1 splenic injury, multiple bilateral rib fractures, multiple pelvic fractures resulting from a 6 foot fall into auto mechanical bay. S/P R femur IMN and percutaneous pelvis fixation on 05/02. Course complicated by hypotension requiring multiple blood products as well as levophed. Course also complicated by hx of gastroparesis and limited PO intake. Acute overnight events: Patient transferred to [facility] overnight. Patient was working with PT this morning. Patient reports he is eating a bit more than he has been over the last few days. Hypophosphatemia replaced this morning. Patient still endorsing pain in the left shoulder and the right knee, but manageable with the pain medication. Lines: PIV x2 R AV fistula Vitals AND I/Os: 24 Hour Vitals Range: Vital sign ranges over the past 24 hours (retrieved 05/12/2024 at 2:04 PM): Tmax (24 hours): 99 ???F (37.2 ???C) Pulse Av.1 Min: 60 Max: 81 Systolic (24hrs), Av , Min:99 , Max:127 Diastolic (24hrs), Av, Min:42, Max:93 MAP (mmHg) Av.9 mmHg Min: 56 mmHg Max: 101 mmHg Resp Av.2 Min: 16 Max: 24 SpO2 Av % Min: 59 % Max: 100 % Afebrile, 50-60s, 60-80/30-40, staurating well on BiPAP/2L NC Vital Signs: Patient Vitals for the past 24 hrs: BP Temp Temp src Pulse Resp SpO2 O2 Device O2 Flow Rate (l/min) 05/12/24 1316 -- -- -- -- -- -- Room air -- 05/12/24 1229 -- -- -- 66 18 -- Room air -- 05/12/24 1209 -- -- -- -- -- -- Room air -- 05/12/24 1108 -- -- -- -- -- -- Room air -- 05/12/24 1031 120/50 98.1 ???F (36.7 ???C) Oral 67 18 93 % Room air -- 05/12/24 1007 -- -- -- -- -- -- Room air -- 05/12/24 0927 -- -- -- -- -- -- Room air -- 05/12/24 0918 116/49 97.9 ???F (36.6 ???C) Oral 60 16 97 % Room air -- 05/12/24 0905 -- -- -- -- -- -- Room air -- 05/12/24 0827 -- -- -- -- -- -- BiPAP -- 05/12/24 0737 -- -- -- -- -- -- BiPAP -- 05/12/24 0600 -- -- -- -- -- -- BiPAP -- 05/12/24 0410 110/51 98.1 ???F (36.7 ???C) Axillary 61 18 100 % BiPAP -- 05/12/24 0039 -- -- -- -- -- -- BiPAP 2 05/11/24 2257 99/42 99 ???F (37.2 ???C) Oral 72 20 94 % Room air -- 05/11/242028 -- -- -- 74 22 -- Room air -- 05/11/24 2000 108/57 98.2 ???F (36.8 ???C) Oral 69 23 93 % Room air -- 05/11/24 1900 127/61 -- -- 71 18 94 % -- -- 05/11/24 1800 112/93 -- -- 81 17 59 % -- -- 05/11/24 1700 109/58 -- -- 74 24 98 % -- -- 05/11/24 1617 -- -- -- 70 19 99 % Room air -- 05/11/24 1607 -- -- -- 74 17 95 % Room air -- 05/11/24 1600 107/53 98.1 ???F (36.7 ???C) Oral 70 23 94 % Room air -- 05/11/24 1500 127/62 -- -- 72 16 100 % -- -- 24 Hour I AND Os: In: 687 (4.9 mL/kg) [P.O.:450] Out: -1000 (-7.1 mL/kg) Net: 1687 Weight: 141.2 kg PO: 500 mL, 3 x meals BM x 1 Physical Exam: General: Resting comfortably on room air. Alert. In no acute distress. Neurological: AAOx4, GCS-15. Motor and sensory grossly intact. HEENT: Normocephalic, atraumatic. Cardiac: Regular rate and rhythm. S1/S2 audible. No murmurs/rubs/gallops. Peripheral pulses palpable and symmetrical bilaterally. Pulmonary: Saturating well on room air. Diminished breath sounds to bases. No wheezing, rhonchi, or rales. Abdomen: Large, rounded, soft, non-tender, non-distended. Extremities: RLE with multiple sutured incision sites over distal lateral and medial thigh, all well approximated without any erythema or drainage. Distal pulses are 2+ and intact bilaterally. Tenderness on palpation and manipulation of RLE. Trace pedal edema. Compartments soft but tender. Otherwise warm, well perfused. Moves all extremities spontaneously. Lab Data: 6.5 8.5 / 145 / 27.1 CBC: 05/12/2024: 12:32 AM 133 99 29 / 119 4.0 25 3.44 BMP: 05/12/2024: 12:32 AM BMP: BMP (last 3 years, up to 8 values) 05/12/2024 05/11/2024 05/10/2024 05/09/2024 05/08/2024 05/07/2024 05/06/2024 05/05/2024 12:32 AM 2:36 AM 2:49 AM 1:17 AM 4:11 AM 4:20 AM 4:42 AM 3:59 AM Na 133 134 134 135 131 132 132 128 K 4.0 4.2 4.4 4.7 4.8 4.6 4.4 5.2 Cl 99 100 100 99 93 94 95 91 CO2 25 26 25 24 25 24 25 25 Gap 13 12 13 17 18 19 16 17 Glu 119 141 214 124 112 99 95 90 BUN 29 47 32 35 63 55 44 79 Cr 3.44 4.99 3.60 4.57 7.48 6.91 5.69 8.72 Ca 7.7 7.8 7.7 7.5 7.7 7.8 7.7 7.8 eGFR 20 13 19 14 8 8 11 6 CBC: CBC (last 3 years, up to 8 values) 05/12/2024 05/11/2024 05/10/2024 05/09/2024 05/09/2024 05/08/2024 05/07/2024 05/06/2024 12:32 AM 2:36 AM 2:49 AM 1:11 PM 1:17 AM 4:11 AM 4:20 AM 6:32 PM WBC 6.5 6.1 8.5 8.6 9.4 9.2 7.1 8.1 RBC 2.84 2.80 2.80 2.89 2.20 2.35 2.40 2.61 Hgb 8.5 8.4 8.4 8.8 6.9 7.6 7.4 8.3 Hct 27.1 26.6 26.1 26.9 20.6 22.5 23.0 25.4 MCV 96 95 94 93 97 96 96 97 RDW 20.1 20.2 20.2 19.4 17.1 16.3 16.1 16.6 Plt 145 172 178 148 151 155 116 127 PT/PTT/INR: PT/PTT/INR (last 3 years, up to 8 values) 05/01/2024 05/01/2024 04/30/2024 4:51 PM 10:10 AM 8:44 PM aPTT 29 -- -- INR -- 1.16 1.29 Hepatic Panel: LFT's (last 3 years, up to 8 values) 05/10/2024 2:49 AM T Prot 5.1 Albumin 2.6 D Bili 0.27 T Bili 0.7 Alk Phos 65 ALT 5 AST 63 Glucose: Fingerstick Glucose (last 72 hours) (Last 10 results in the past 72 hours) Glucose 05/12/24 1137 171 05/12/24 0736 108 05/11/24 2151 119 05/11/24 1700 245 05/11/24 1131 132 05/11/24 0801 129 Comment: Notified FRANNIE URIBE MD
05/10/24 2016 282 05/10/24 1658 260 05/10/24 1211 185 05/10/24 0804 190 TSH: Lab Results Component Value Date TSH 7.124 (H) 05/09/2024 Wt Readings from Last 5 Encounters: 05/11/24 (!) 311 lb 4.6 oz (141.2 kg) Imaging Results (over previous 24 hours): No new imaging results. Assessment and Plan: Diagnosis s/p fall down ~ 6Ft hole: - Right L1-L3 TP Fx - Anterior tension ban disruption of T11 - Right superior/inferior pubic rami Fx w/ extension into acetab - Left scapular Fx w/ intramuscular shoulder hematoma - Bilateral sacral Ala Fx - Right 2,3,4,5,6,7,8 Rib Fx - Left 4,5,6,7,8 Rib Fx - Bilateral pulmonary contusions - Right pleural effusion - Trace hemoperitoneum - Right distal femur fx - Acute blood loss anemia - Hemorrhagic shock - Shock of unknown etiology Associated Hospital Diagnosis: - Hyperkalemia - Hypomagnesemia - Recurrent Nausea/Vomiting PMH: - Hyperparathyroidism - ARASH - CAROL - Atrial- Fibrillation - HTN - HLD - Pacer - GERD - ESRD - Depression - CKD - T2DM - CHF - Gastroparesis Home Medications: ASA 81mg daily Insulin NPH (70U BID) Pioglitazone 30mg daily Sertraline 100mg daily Amiodarone 200mg daily Sevelamer 1600mg TID Apixaban 5mg BID Atorvastatin 40mg daily Gabapentin 100mg qHS Midodrine 10mg with dialysis Omeprazole 40mg daily Metoclopramide 10mg QID Furosemide 40mg BID Isosorbide Mononitrate 20mg q12h Metoprolol 25mg Daily Incidental Findings: - Cholelithiasis - Indeterminate right adrenal nodule Plan: Neurological: # Acute post traumatic pain # Hx of Depression - Analgesia - Acetaminophen 1G Q6hrs sched - Decreased Oxycodone to 2.5/5 mg Q4hrs PRN - Lidocaine - 2 patch Q24h - Robaxin 750mg Q6H - Psych consulted - Increase Zoloft to 125 mg PO daily - Continue Gabapentin 100 mg at bedtime - Melatonin 3 mg PO at 1900 for sleep - Labs: TSH, Vitamin B12, Vitamin D, Mg2+, HIV/Hep B/Hep C/UA/urine tox - B12 960 Cardiovascular: # Hx of HTN, HLD, CHF, Pacer, A-fib - Continue home Apixaban 5 mg BID PO for hx of atrial fibrillation, ASA (per patient only taken for general prophylaxis), amio, lipitor - Can consider restarting scheduled midodrine if blood pressures continue to be labile - Continue midodrine 10 mg PRN before dialysis - Last echo 01/05, LVEF 60%. Repeat echo ordered, pending. - EP consulted due to prolonged qTc -Underlying RBBB - qTc is accepatable range -Obatin LFTs -Recommend repeating TFTs once acute illness as resolved -Okay to continue amiodarone Respiratory: # Hx of ARASH - Saturating well on room air - Maintain SpO2 > 92% - Continue pulse ox monitoring - Encourage incentive spirometry - Requiring BiPAP at bedtime - Has home CPAP prescribed, noncompliant GI/Diet: # Hx of GERD # Hx of Gastroparesis - Diet: Regular; Strict Low K, 40 mEq; improved PO intake - Continue home Reglan (qTc appropriate in setting of RBBB per EP) - Continue erythromycin 500 mg PO BID (qTc appropriate in setting of RBBB per EP) - Nutrition consulted -Start oral supplements. Boost Breeze with breakfast - K+ free. Novasource Renal BID - low K+ -Encourage small frequent meals - aim for BG <180. Consider downgrading to FLD if n/v persists with solid food intake -If persistent n/v may need evaluate need for post-pyloric corpak placement. Novasource Renal. Initiate at 10 mL/hr and advance by 10 mL/hr q 6 hours to a goal rate of 50 mL/hr. Liquacel 1 packet TID. Will provide: 1080 mL TF, 2160 kcal, 98 g protein, 774 mL free water + 300 kcal, 48 g protein from liquacel -History of folate deficiency and low B12 - recheck. Check vitamin D 25 OH - If continues to have poor PO intake consider post-pyloric corpak - Discontinue Tigan 100 mg IM Q12h PRN for nausea - Discontinue Diazepam 2 mg IV Q8H PRN - Bowel reg: Senna 8.6 mg PO - GI ppx: pantoprazole (takes omeprazole at home) Renal/Electrolytes: # Hx of ESRD - Nephro consulted: - MWF HD - Continue midodrine prior to HD - Renal MV and Renal diet - BMP/Mg/P daily - Replace electrolytes as indicated - Maintain Mg >2, K >4 - Measure strict I AND O - Continue home Renvela Infectious Disease: # no acute issues - Afebrile, without leukocytosis - Monitor temperature and WBC for signs of infection Hematology: # Hemorrhagic shock - Hgb stable (8.4) - T AND S (05/10) - CBC daily - Maintain hemoglobin >7 - Retacrit with dialysis Endocrine: # Hx of Hyperparathyroidism, T2DM # Hypothyroidism, 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 Plan to restart on discharge. Musculoskeletal: # Pelvic Fx's # Right distal femur fx # Left Scapula Fx # S/p OR 05/02 - Progressive mobility - Ortho consulted, following peripherally - NWB BLE - Pain control: recommend multimodal -PT/OT consult - DVT ppx: eliquis per primary -FU with Dr. Chu in 2 weeks at [facility] -Orthopaedics will continue to follow peripherally - PT/OT - Recommend further therapy services in a Nursing Home Setting once medically cleared - Will continue to follow patient while in hospital as appropriate. - PMR Consulted - Ortho spine (05/01): - No acute spine interventions indicated Prophylaxis: - SCDs bilaterally - On therapeutic anticoagulation via home Eliquis - Protonix Follow Up: - PCP: No primary care provider on file. - Ortho: with Dr. Chu in 2 weeks at [facility] - Endocrine: Repeat the TSH as outpt in 4 weeks, hold the sonali riri vitamin for 4 days prior to the blood work LDA/Restraints: - PIV X 2 - RUE AVF Code Status: - Full Code Disposition: - Transfer to trauma floor today - long term setting once medically cleared Patient seen and evaluated with Attending Surgeon Dr. Canales. Please see attending attestation for final plan/recommendations. Florence Chavez MD General Surgery Department Trauma Surgery Pager [phone] CONSULTS Observed: 05/12/2024 11:55 AM Status: COMPLETED Source: THE [facility] PHYSICAL THERAPY PROGRESS GALLEGOS SAMUEL Patient seen from 11:10am to 11:34am on GC5E unit for 24 minute treatment. Co-session with OT necessary for safe and professional assist with mobility assessment and training. SUBJECTIVE: Patient Subjective/Goals: I don't know about that. OBJECTIVE: Appearance: Obese and IV Behavior: Awake, Passive, Max encouragement to participate Pain: Site/Location: left UE and RLE; Pain Scale: unrated /10 Pain Relief Interventions Implemented: Positioning, Rest, and RN aware and reports patient received medication according to time schedule Mobility NA Dep Max Mod Min CG CS DS DE I Comment Supine to sit x2 Max A x 2 for trunk and BLE's Transfers x2 Max A x 2 to drop arm recliner with slide board. Patient requires cues for NWB BLE's and for WBAT LUE. Patient is reluctant to use LUE. Functional Endurance: impaired. Sitting Balance: Patient was able to sit at edge of bed x 8 minutes. Patient requires mod A x 2 to gain balance at edge of bed. Once patient was able to gain midline, he was able to sit EOB x 5 minutes with CS. Static:fair + Dynamic:fair Standing Balance: n/a due to NWB BLE's. Patient/Family Education: Instructed Patient in roles of therapy. Reviewed NWB BLE's and WBAT LUE Precautions with Patient Patient educated on importance of OOB mobility during hospital stay to maintain functional endurance and independence and to decrease risk of medical complications. Patient educated to call for assistance with all mobility. Patient indicates understanding at this time. Patient up in chair with call light in reach. Chair alarm intact. DME: With Patients permission ordered no equipment via [employer] Order. [facility] at [phone]. 05/12/2024 6 Clicks Basic Mobility PT Difficulty turning over in bed 2 Difficulty sitting down and standing up from a chair with arms 1 Difficulty moving from lying on back to sitting on the side of the bed 2 Help from another person moving to and from bed to a chair 1 Help from another person to walk in hospital room 1 Help from another person climbing 3-5 steps with a railing 1 PT 6 Clicks Score 8 6 Click Score Guidelines: 1 - Total = Requires total assistance, or cannot do at all. 2 - A lot = Requires a lot of help (maximun to moderate assistance) Can use assistive devices. 3 - A little = Requires a little help (supervision, minimal assistance) Can use assistive devices. 4 - None = Does not require any help and does the activity independently. Can use assistive devices. ASSESSMENT: Recommend further therapy services in a Nursing Home Setting once medically cleared. Will continue to follow patient while in hospital as appropriate. Goals (to be achieved by discharge from acute care): ALL GOALS ONGOING UNLESS OTHERWISE NOTED Patient will achieve acceptable level of pain control to allow participation in therapy. Patient will increase bed mobility to moderate assistance x 2 Patient will be able to sit at edge of bed x 5 minutes with UE support with minimal assist. Patient will be able to perform AAROM to BLE's in supine x 10 reps. Patient will perform transfer bed to/from chair with appropriate device with moderate assistance x 2 Patient will increase ROM/Strength/Endurance/Balance to allow for above goals. PLAN: Will follow established Plan of Care Ping Bains PT NA = Not Assessed, I = Independent, DE = Modified Independent, Sup = Supervised, Set up = Physical Assistance for Set-up Only, Min = Minimal Assistance, Mod = Moderate Assistance, Max = Maximal assistance; Dep = Dependent; AROM = Active Range of Motion; PROM = Passive Range of Motion; MMT = Manual Muscle Test PROGRESS NOTES Observed: 05/12/2024 11:46 AM Status: COMPLETED Source: THE [facility] Case Management CM made aware that patient meets requirements for SNF. Patient agreeable to SNF placement and has asked that referrals be sent to : [facility]/ [facility], [facility] Marizol KIMBLE, RN Inpatient [place] Worker Hel[employer] Cell 5 [facility] Epic Chat [phone] GLUCOSE, FINGERSTICK-IN OFFICE Collecte d: 05/12/2024 11:37 AM Status: F Source: THE [facility] TYPE CODE TESTS RESULT OUT OF RANGE REFERENCE UNITS LAB Mong[place]ian GLUCOSE, POC 171 High 74-109 mg/dL Performed By: #### [id number] ### # NURSING GLUCOSE PROGRAM [address] [place], [address] PROGRESS NOTES Observed: 05/12/2024 9:24 AM Status: COMPLETED Source: [facility] Follow-up Note Amado Tran 59 year old [phone] lbs MRN/Room: [id number]/[place] [address]/2 Subjective: Seen and evaluated at bedside. Tolerated HD yesterday without incident, 1000 ml removed. Objective: General appearance: NAD Eyes: Non-icteric Skin: No apparent rash Abdomen: Soft, nt/nd Extremities: Mild edema BLE Neuro: A AND Ox3 Access: RAVF Meds: senna 8.6 mg At Bedtime aspirin EC 81 mg Daily polyethylene glycol 17 g Daily midodrine 10 mg Q M, W AND F insulin glargine 8 Units At Bedtime metoclopramide 5 mg Every 8 hours erythromycin base 500 mg 2x Daily levothyroxine 50 mcg Before Breakfast melatonin 3 mg Daily Melatonin sertraline 125 mg Daily folic acid 1 mg Daily vitamin D2 ergocalciferol 50,000 Units Q7 Days cholecalciferol 1,000 Units Daily Normal consistency 2x Daily with Meals Normal consistency Daily with breakfast Apixaban 5 mg 2x Daily Sonali-Riri RX 1 Tablet Daily insulin regular 4-14 Units 4x Daily AC AND HS methocarbamol 750 mg Every 6 hours epoetin antione-epbx 10,000 Units Q M, W AND F acetaminophen 1,000 mg q6h nystatin 2x Daily albuterol 2.5 mg QID RT sevelamer carbonate 800 mg 3x Daily with Meals amiodarone 200 mg Daily atorvastatin 40 mg At Bedtime gabapentin 100 mg At Bedtime pantoprazole 40 mg Daily 30 min before breakfast lidocaine 2 Patch Every 24 hours ondansetron 4 mg Q6H PRN oxyCODONE 10 mg Q4H PRN oxyCODONE 5 mg Q4H PRN albuterol 2.5 mg Q4H PRN dextrose iv for hypoglycemia orderable 125 mL PRN Or glucagon 1 mg PRN Or dextrose 15 g of glucose PRN Or dextrose 30 g of glucose PRN Vital sign ranges over the past 24 hours (retrieved 05/12/2024 at 9:24 AM): Tmax (24 hours): 99 ???F (37.2 ???C) Pulse Av.1 Min: 60 Max: 81 Systolic (24hrs), Av , Min:99 , Max:139 Diastolic (24hrs), Av, Min:42, Max:93 MAP (mmHg) Av.6 mmHg Min: 56 mmHg Max: 101 mmHg Resp Av.5 Min: 16 Max: 24 SpO2 Av.4 % Min: 59 % Max: 100 % Patient Vitals for the past 24 hrs: BP Temp Temp src Pulse Resp SpO2 O2 Device O2 Flow Rate (l/min) 05/12/24 0918 116/49 97.9 ???F (36.6 ???C) Oral 60 16 97 % Room air -- 05/12/24 0905 -- -- -- -- -- -- Room air -- 05/12/24 0827 -- -- -- -- -- -- BiPAP -- 05/12/24 0737 -- -- -- -- -- -- BiPAP -- 05/12/24 0600 -- -- -- -- -- -- BiPAP -- 05/12/24 0410 110/51 98.1 ???F (36.7 ???C) Axillary 61 18 100 % BiPAP -- 05/12/24 0039 -- -- -- -- -- -- BiPAP 2 05/11/24 2257 99/42 99 ???F (37.2 ???C) Oral 72 20 94 % Room air -- 05/11/242028 -- -- -- 74 22 -- Room air -- 05/11/24 2000 108/57 98.2 ???F (36.8 ???C) Oral 69 23 93 % Room air -- 05/11/24 1900 127/61 -- -- 71 18 94 % -- -- 05/11/24 1800 112/93 -- -- 81 17 59 % -- -- 05/11/24 1700 109/58 -- -- 74 24 98 % -- -- 05/11/24 1617 -- -- -- 70 19 99 % Room air -- 05/11/24 1607 -- -- -- 74 17 95 % Room air -- 05/11/24 1600 107/53 98.1 ???F (36.7 ???C) Oral 70 23 94 % Room air -- 05/11/24 1500 127/62 -- -- 72 16 100 % -- -- 05/11/24 1400 134/63 -- -- 76 17 99 % -- -- 05/11/24 1315 139/68 97.9 ???F (36.6 ???C) -- 73 22 -- Room air -- 05/11/24 1300 125/72 -- -- 67 23 93 % -- -- 05/11/24 1227 -- -- -- 64 21 98 % Room air -- 05/11/24 1217 -- -- -- 69 16 99 % Room air -- 05/11/24 1200 132/61 97.8 ???F (36.6 ???C) Oral 66 21 96 % Room air -- 05/11/24 1100 131/58 -- -- 69 20 96 % -- -- 05/11/24 1000 116/55 -- -- 69 17 96 % -- -- Intake/Output Summary (Last 24 hours) at 05/12/2024 0924 Last data filed at 05/12/2024 0400 Gross per 24 hour Intake 300 ml Output -1000 ml Net 1300 ml Blood Labs: Arterial Blood Gases None CBC/PT/INR 05/12/2024 05/11/2024 05/10/2024 05/09/2024 12:32 AM 2:36 AM 2:49 AM 1:11 PM WBC 6.5 6.1 8.5 8.6 RBC 2.84 2.80 2.80 2.89 Hgb 8.5 8.4 8.4 8.8 Hct 27.1 26.6 26.1 26.9 MCV 96 95 94 93 RDW 20.1 20.2 20.2 19.4 Plt 145 172 178 148 WBC/Diff No lab values to display. Basic Metabolic Panel 05/12/2024 05/11/2024 05/10/2024 12:32 AM 2:36 AM 2:49 AM Na 133 134 134 K 4.0 4.2 4.4 Cl 99 100 100 CO2 25 26 25 Gap 13 12 13 Glu 119 141 214 BUN 29 47 32 Cr 3.44 4.99 3.60 Ca 7.7 7.8 7.7 Mg 1.9 2.2 2.1 PO4 2.2 3.5 3.6 Cultures: Urine Culture No lab values to display. Blood Culture No lab values to display. A/P: Amado Tran is a 59 year old y/o male with PMH of Hyperparathyroidism, Pacemaker, ARASH, CAROL, HLD, GERD, Depression, ESRD (HD MWF, RUE AV Fistula), CKD, HTN, T2DM, Systolic HF, and atrial fibrillation on Eliquis who presented to via [facility] as an inter facility transfer from [facility] s/p Fall. 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, phos 2.2 -hold phos binder for phos < 5 -continue renal MVI Renally dose all meds to ESRD Strict I/O's, daily weights, low k diet Clementine Alcantara APRN-KIRK Division of Nephrology AND Hypertension Pager :[phone] GLUCOSE, FINGERSTICK-IN OFFICE Collecte d: 05/12/2024 7:36 AM Status: F [facility] TYPE CODE TESTS RESULT OUT OF RANGE REFERENCE UNITS LAB Mong[place] GLUCOSE, POC 108 74-109 mg/dL Performed By: #### [id number] ### # NURSING GLUCOSE PROGRAM [address] [place] [address], [address] COMPLETE BLOOD COUNT Collected: 024 12:32 AM Status: F Source: [facility] TYPE CODE TESTS RESULT OUT OF RANGE REFERENCE UNITS LAB WBC WBC 6.5 4.5-11.5 K/uL LAB RBC RBC 2.84 Low 4.50-5.90 M/uL LAB HGB HGB 8.5 Low 13.9-16.3 g/dL LAB HCT HCT 27.1 Low 41.0-53.0 % LAB MCV MCV 96 80-100 fL LAB MCH MCH 30.1 26.0-34.0 pg LAB MCHC MCHC 31.5 Low 32.0-35.9 g/dL LAB PLT PLT 145 Low 150-400 K/uL LAB RDW RDW-CV 20.1 High 11.5-14.5 % LAB MPV MPV 8.5 7.5-11.2 fL Performed By: #### CBC #### [facility] [address] [place] [address], MAGNESIUM Collected: 4 12:32 AM Status: F Source: [facility] TYPE CODE TESTS RESULT OUT OF RANGE REFERENCE UNITS LAB mag MG 1.9 1.9-2.7 mg/dL Performed By: #### MG, PHOS, CH8 #### [facility] [address] [place] [address], PHOSPHORUS Collected: 12:32 AM Status: F Source: [facility] TYPE CODE TESTS RESULT OUT OF RANGE REFERENCE UNITS LAB PHOS PHOS 2.2 Low 2.5-5.0 mg/dL Performed By: #### MG, PHOS, CH8 #### [facility] [address] [place], [place], BASIC METABOLIC PANEL Collected: 2023 12:32 AM Status: F Source: [facility] TYPE CODE TESTS RESULT OUT OF RANGE REFERENCE UNITS LAB GLU GLU 119 High 74-109 mg/dL LAB NA3 NA 133 Low 136-145 mmol/L LAB POT K 4.0 3.5-5.0 mmol/L LAB CO2 CO2 25 21-31 mmol/L LAB CHLOR CL 99 98-107 mmol/L LAB BUN BUN 29 High 7-25 mg/dL LAB CREAT CREAT 3.44 High 0.70-1.30 mg/dL LAB CA CA 7.7 Low 8.6-10.3 mg/dL LAB ANION GAP ANION GAP 13 10-20 LAB eGFR ESTIMATED GFR (CKD-EPI) 20 Low >=60 mL/min/1 .73sqm Result Comment: 2020 CKD EPI Equation using Creatinine without Race Comment: Estimated glomerular filtration rate (eGFR) is calculated without a race coefficient. Values should be interpreted in the context of the patient's full clinical presentation. Reference: 1. Christophe C, Sagrario M, Gena YUAN, et al.. A Unifying Approach for GFR Estimation: Recommendations of the NKF-ASN Task Force on Reassessing the Inclusion of Race in Diagnosing Kidney Disease. [place] Journal of Kidney Diseases 2021;79(2):268- 88.e1. 2. N Engl J Med 1 Vol. 385 Issue 19 Pages 1574-7986 Performed By: #### [address] CH[address] #### [facility] [address] [place] [address], GLUCOSE, FINGERSTICK-IN OFFICE Collecte d: 05/11/2024 9:51 PM Status: F Source: [facility] TYPE CODE TESTS RESULT OUT OF RANGE REFERENCE UNITS LAB Mong[place] GLUCOSE, POC 119 High 74-109 mg/dL Performed By: #### [id number] ### # NURSING GLUCOSE PROGRAM [address] [place], [address] GLUCOSE, FINGERSTICK-IN OFFICE Collecte d: 05/11/2024 5:00 PM Status: F Source: THE [facility] TYPE CODE TESTS RESULT OUT OF RANGE REFERENCE UNITS LAB Mong[place]ian GLUCOSE, POC 245 High 74-109 mg/dL Performed By: #### [id number] ### # NURSING GLUCOSE PROGRAM [address] [place], [address] PROGRESS NOTES Observed: 05/11/2024 1:48 PM Status: COMPLETED Source: [facility] Hemodialysis Procedure Note for ESRD Patient was seen, examined, and evaluated during dialysis. Tolerating well. Blood pressure at the time of my visit was BP Readings from Last 1 Encounters: 05/11/24 139/68 , no heparin for the treatment, and 1 liters ultrafiltration. Trace edema, right forearm AVF. aspirin EC, 81 mg, Oral, Daily polyethylene glycol, 17 g, Oral, Daily midodrine, 10 mg, Oral, Q M, W AND F insulin glargine, 8 Units, Subcutaneous, At Bedtime metoclopramide, 5 mg, Intravenous Push, Every 8 hours erythromycin base, 500 mg, Oral, 2x Daily levothyroxine, 50 mcg, Oral, Before Breakfast melatonin, 3 mg, Oral, Daily Melatonin sertraline, 125 mg, Oral, Daily folic acid, 1 mg, Oral, Daily vitamin D2 ergocalciferol, 50,000 Units, Oral, Q7 Days cholecalciferol, 1,000 Units, Oral, Daily Normal consistency, , Oral, 2x Daily with Meals Normal consistency, , Oral, Daily with breakfast Apixaban, 5 mg, Oral, 2x Daily Sonali-Riri RX, 1 Tablet, Oral, Daily insulin regular, 4-14 Units, Subcutaneous, 4x Daily AC AND HS methocarbamol, 750 mg, Oral, Every 6 hours epoetin antione-epbx, 10,000 Units, Subcutaneous, Q M, W AND F acetaminophen, 1,000 mg, Oral, q6h nystatin, , Topical, 2x Daily albuterol, 2.5 mg, Nebulization, QID RT sevelamer carbonate, 800 mg, Oral, 3x Daily with Meals amiodarone, 200 mg, Oral, Daily atorvastatin, 40 mg, Oral, At Bedtime gabapentin, 100 mg, Oral, At Bedtime pantoprazole, 40 mg, Oral, Daily 30 min before breakfast lidocaine, 2 Patch, Transdermal, Every 24 hours 05/11/2024 05/10/2024 05/09/2024 Renal Sodium 134 134 Potassium 4.2 4.4 Chloride 100 100 HCO3 26 25 BUN 47 32 Cr 4.99 3.60 Estimated GFR 13 19 Glucose 141 214 Calcium 7.8 7.7 Phosphorus, Serum 3.5 3.6 Hemoglobin 8.4 8.4 8.8 Hematocrit, spun 26.6 26.1 26.9 Albumin 2.6 Magnesium 2.2 2.1 Jaquan Smith MD Division of Nephrology and Hypertension [facility] PROGRESS NOTES Observed: 05/11/2024 1:40 PM Status: COMPLETED Source: [facility] Tx complete 1000 mL uf remov ed tolerated well 05/11/24 1315 Graft/Fistula Dialysis Access Right Present on Arrival to Hospital Insertion Date/Insertion Time: 04/30/24 1850 Laterality: Right Location: Arm Present on Admission?: Present on Arrival to Hospital Access Assessment Positive bruit;Positive thrill;Positive blood return Site Assessment WNL;Dressing applied/changed;Dressing dry and intact Access Assessment Arterial Port Aspirate Yes Arterial Port Flush Yes Venous Port Aspirate Yes Venous Port Flush Yes Access Function WNL Respiratory Respiratory Pattern WNL Edema Edema Location Generalized;Bilateral LE Vital Signs Temperature 97.9 ???F (36.6 ???C) Heart Rate 73 Respiratory Rate 22 BP 139/68 Oxygen Therapy O2 Device Room air Run Sheet Hemodialysis Start/Stop Stop System Flush Saline Blood Volume Processed ( L ) 85.5 L Gross Fluid Removed (ml) 1800 ml Comments tx complete Total Fluid Removed Total Fluid Removed (ml) 1800 ml Prime (ml) 300 mL Rinseback (ml) 300 ml Saline Flush (ml) 200 ml Actual (Net) Fluid Removed (ml) -1000 ml GLUCOSE, FINGERSTICK-IN OFFICE Collecte d: 05/11/2024 11:31 AM Status: F Source: [facility] TYPE CODE TESTS RESULT OUT OF RANGE REFERENCE UNITS LAB [place] GLUCOSE, POC 132 High 74-109 mg/dL Performed By: #### [id number] ### # NURSING GLUCOSE PROGRAM [address] [place], [address] CONSULTS Observed: 05/11/2024 10:40 AM Status: COMPLETED Source: [facility] TICU OT Attempted OT visit, patient having HD at bedside. Will continue established POC at next available opportunity. Jodee BARBOSA, OTR/L Secure chat with questions CONSULTS Observed: 05/11/2024 10:37 AM Status: COMPLETED Source: [facility] PHYSICAL THERAPY Attempted to see patient for PT visit this date. Patient on hold this date. Patient having episodes of hypotension this morning and is now getting dialysis. Will cont PT per POC and follow up as able. Ping Bains PT CONSULTS Observed: 05/11/2024 9:25 AM Status: COMPLETED Source: [facility] Attestation signed by Ny Robins MD at 05/12/2024 11:33 AM Teaching Physician Note: I saw and evaluated the patient with Dr. Lemon. I personally obtained the kirby and critical portions of the history and physical exam. I reviewed documentation and discussed the patient with the fellow. I agree with the fellow's medical decision making as documented in Dr Lemon's note. Ny Robins MD Division of Endocrinology ENDOCRINOLOGY INPATIENT CONSULTATION Amado Tran 59 year old male DOA:04/30/2024 4:48 PM Primary care physician:No primary care provider on file. Admitting physician: Joel Canales MD Reason for consultation: subclinical hypothyroidism HPI: Amado Tran is a 59 year old male with PMH of ESRD on HD MWF, T2DM, HFrEF and atrial fibrillation on eliquis and amiodarone, secondary hyperparathyroidism who presented as a CAT 1 trauma as a transfer from [facility] and was admitted to the TICU for multiple traumatic injuries including Grade 1 splenic injury, multiple bilateral rib fractures, multiple pelvic fractures resulting from a 6 foot fall into auto mechanical bay s/p R femur IMN and percutaneous pelvis fixation on 05/02. Endocrinology consulted for management of subclinical hypothyroidism. Course complicated by hypotension requiring multiple blood products including PRBC x3, whole blood x1, FFP x1, as well as levophed gtt. Amiodarone 200 mg daily 05/01/24- home medication continued here as well T2DM - On Ozempic On LT4-50 mcg daily started from 05/08/2024 by primary team TSH: 7.124 05/09/24 TSH- 5.037 04/21/24 Ft4- 0.83 04/21/24 TPO Ab neg 05/10/24 Prolactin 19.2 in 07/2022 (on Reglan here which can cause high prolactin) REVIEW OF SYSTEMS: Per HPI No past medical history on file. Past Surgical History: Procedure Laterality Date REDUCTION, CLOSED, PERCUTANEOUS PINNING, PELVIS Bilateral 05/02/2024 Procedure: REDUCTION, CLOSED, PERCUTANEOUS PINNING, PELVIS; Surgeon: Kayode Biggs MD; Location: PERIOPERATIVE SERVICES; Service: Orthopaedics REDUCTION, OPEN, FEMUR, INTRAMEDULLARY GENTRY Right 05/02/2024 Procedure: REDUCTION, OPEN, FEMUR, INTRAMEDULLARY GENTRY; Surgeon: Kayode Biggs MD; Location: PERIOPERATIVE SERVICES; Service: Orthopaedics Allergies Allergen Reactions Penicillins Faint Feeling Pt states when he was approx 5 years old he passed out after taking PCN Current Facility-Administered Medications Medication Dose Route Frequency Last Rate Last Admin midodrine tablet 10 mg Oral Q M, W AND F 10 mg at 05/11/24 0759 insulin glargine (LANTUS SOLOSTAR/BASAGLAR KWIKPEN) 100 UNIT/ML PEN injection 8 Units Subcutaneous At Bedtime 8 Units at 05/10/242111 metoclopramide (REGLAN) 5 MG/ML injection 5 mg Intravenous Push Every 8 hours 5 mg at 05/11/24226 erythromycin base (E-MYCIN) tablet 500 mg Oral 2x Daily 500 mg at 05/10/242111 levothyroxine (SYNTHROID) tablet 50 mcg Oral Before Breakfast 50 mcg at 05/11/24 07 melatonin tablet 3 mg Oral Daily Melatonin 3 mg at 05/10/24 194 sertraline (ZOLOFT) tablet 125 mg 125 mg Oral Daily 125 mg at 05/10/24 0854 diazePAM (VALIUM) 5 MG/ML injection 2 mg Intravenous Push Q8H PRN folic acid 1 MG tablet 1 mg Oral Daily vitamin D2 ergocalciferol (DRISDOL) capsule CAPS 50,000 Units Oral Q7 Days 50,000 Units at 05/06/24 1313 cholecalciferol (VITAMIN D3) tablet 1,000 Units Oral Daily 1,000 Units at 05/10/24 0853 Normal consistency supplement Oral 2x Daily with Meals Given at 05/10/24 1645 Normal consistency supplement Oral Daily with breakfast Given at 05/10/24 1100 Apixaban (ELIQUIS) tablet 5 mg Oral 2x Daily 5 mg at 05/10/242111 Sonali-Riri RX tablet 1 Tablet Oral Daily 1 Tablet at 05/10/24 0856 insulin regular (HumuLIN R) 100 UNIT/ML injection 4-14 Units Subcutaneous 4x Daily AC AND HS 8 Units at 05/10/24 230 methocarbamol (ROBAXIN) tablet 750 mg Oral Every 6 hours 750 mg at 05/11/24 0227 epoetin antione-epbx (RETACRIT) 47520 UNIT/ML injection 10,000 Units Subcutaneous Q M, W AND F acetaminophen (TYLENOL) tablet 1,000 mg Oral q6h 1,000 mg at 05/11/24 0227 nystatin (MYCOSTATIN) 100,000 unit/g powder Topical 2x Daily Given at 05/10/242112 albuterol (PROVENTIL) (2.5 MG/3ML) 0.083% nebulizer solution 2.5 mg Nebulization QID RT 2.5 mg at 05/11/24 0844 albuterol (PROVENTIL) (2.5 MG/3ML) 0.083% nebulizer solution 2.5 mg Nebulization Q4H PRN sevelamer carbonate (RENVELA) tablet 800 mg Oral 3x Daily with Meals 800 mg at 05/10/24 164 amiodarone (CORDARONE) tablet 200 mg Oral Daily 200 mg at 05/10/24 0852 atorvastatin (LIPITOR) tablet 40 mg Oral At Bedtime 40 mg at 05/10/242111 gabapentin (NEURONTIN) capsule 100 mg Oral At Bedtime 100 mg at 05/10/242111 pantoprazole (PROTONIX) tablet 40 mg Oral Daily 30 min before breakfast 40 mg at 05/10/24 0853 oxyCODONE immediate release tablet 10 mg Oral Q4H PRN 10 mg at 05/10/24 1623 lidocaine (LIDODERM) 4 % patch 2 Patch Transdermal Every 24 hours 2 Patch at 05/10/24 2112 oxyCODONE immediate release tablet 5 mg Oral Q4H PRN 5 mg at 05/10/24 0853 dextrose 10 % iv infusion 125 mL Intravenous PRN Or glucagon (GLUCAGEN) 1 MG injection 1 mg Subcutaneous PRN Or dextrose (GLUTOSE) 40 % oral gel 15 g of glucose Buccal PRN Or dextrose (GLUTOSE) 40 % oral gel 30 g of glucose Buccal PRN No family history on file. Social History Socioeconomic History Marital status: Single Tobacco Use Smoking status: Never Smokeless tobacco: Never Vaping Use Vaping status: Never Used Social Determinants of Health Financial Resource Strain: Low Risk (04/01/2024) Received from [facility] Overall Financial Resource Strain (CARDIA) Difficulty of Paying Living Expenses: Not very hard Food Insecurity: Unknown (04/30/2024) Hunger Vital Sign Worried About Running Out of Food in the Last Year: Never true Transportation Needs: Unknown (04/30/2024) PRAPARE - Transportation Lack of Transportation (Medical): No Physical Activity: Insufficiently Active (04/01/2024) Received from [facility] Exercise Vital Sign Days of Exercise per Week: 1 day Minutes of Exercise per Session: 10 min Stress: Stress Concern Present (04/01/2024) Received from [facility] [employer] - Occupational Stress Questionnaire Feeling of Stress : To some extent Social Connections: Moderately Isolated (04/01/2024) Received from [facility] Social Connection and Isolation Panel [NHANES] Frequency of Communication with Friends and Family: More than three times a week Frequency of Social Gatherings with Friends and Family: More than three times a week Attends Cheondoism Services: Never Active Member of Clubs or Organizations: Yes Attends Club or Organization Meetings: More than 4 times per year Marital Status: Never Intimate Partner Violence: Unknown (04/30/2024) Humiliation, Afraid, Rape, and Kick questionnaire Emotionally Abused: No PHYSICAL EXAMINATION: O: Vital signs reviewed BP 132/64 Pulse 67 Temp 97.7 ???F (36.5 ???C) (Oral) Resp 27 Ht 5' 9 (1.753 m) Wt (!) 311 lb 4.6 oz (141.2 kg) SpO2 93% PF 230 L/min BMI 45.97 kg/m??? last BMI is undetermined because no height found and no weight found General appearance: No distress. Cooperative. In HD when seen Eyes: Pupils equal. Extraocular movements grossly intact. Neck: No thyromegaly. No lymphadenopathy. Lungs: Good breath sounds Heart: Regular rate and rhythm. Abdomen: Soft, non-tender. Extremities: mild edema. Neuro: A AND Ox4 LABS No results found for: HBA1C Fingerstick Glucose (last 72 hours) (Last 10 results in the past 72 hours) Glucose 05/11/24 0801 129 Comment: Notified RN RONY LOPEZ
05/10/24 2016 282 05/10/24 1658 260 05/10/24 1211 185 05/10/24 0804 190 05/09/24 2130 213 05/09/24 1748 230 05/09/24 1156 111 05/09/24 0813 126 05/08/24 2126 138 CBC (last 3 years, up to 8 values) 05/11/2024 05/10/2024 05/09/2024 05/09/2024 05/08/2024 05/07/2024 05/06/2024 05/06/2024 2:36 AM 2:49 AM 1:11 PM 1:17 AM 4:11 AM 4:20 AM 6:32 PM 4:42 AM WBC 6.1 8.5 8.6 9.4 9.2 7.1 8.1 7.0 RBC 2.80 2.80 2.89 2.20 2.35 2.40 2.61 2.13 Hgb 8.4 8.4 8.8 6.9 7.6 7.4 8.3 6.7 Hct 26.6 26.1 26.9 20.6 22.5 23.0 25.4 20.5 MCV 95 94 93 97 96 96 97 97 RDW 20.2 20.2 19.4 17.1 16.3 16.1 16.6 16.7 Plt 172 178 148 151 155 116 127 108 BMP (last 3 years, up to 8 values) 05/11/2024 05/10/2024 05/09/2024 05/08/2024 05/07/2024 05/06/2024 05/05/202405/04/2024 2:36 AM 2:49 AM 1:17 AM 4:11 AM 4:20 AM 4:42 AM 3:59 AM 9:47 PM Na 134 134 135 131 132 132 128 130 K 4.2 4.4 4.7 4.8 4.6 4.4 5.2 5.3 Cl 100 100 99 93 94 95 91 92 CO2 26 25 24 25 24 25 25 24 Gap 12 13 17 18 19 16 17 19 Glu 141 214 124 112 99 95 90 148 BUN 47 32 35 63 55 44 79 74 Cr 4.99 3.60 4.57 7.48 6.91 5.69 8.72 8.31 Ca 7.8 7.7 7.5 7.7 7.8 7.7 7.8 7.7 eGFR 13 19 14 8 8 11 6 7 LFT's (last 3 years, up to 8 values) 05/10/2024 2:49 AM T Prot 5.1 Albumin 2.6 D Bili 0.27 T Bili 0.7 Alk Phos 65 ALT 5 AST 63 Lipids (last 3 years, up to 8 values) No lab values to display. Lab Results Component Value Date TSH 7.124 (H) 05/09/2024 No results found for: CPEPTIDE No results found for: GORDY IMAGING XR CHEST AP OR PA 1 VIEW EXAMINATION: XR CHEST AP OR PA 1 VIEW 05/03/2024 08:23 AM CLINICAL HISTORY: f/u after multiple rib fractures, no active resp distress ASSOCIATED DIAGNOSIS: f/u after multiple rib fractures, no active resp distress ORDERING PROVIDER: ROYCE REYNOSO COMPARISON: XR CHEST AP OR PA 1 VIEW 05/01/2024, 6:28 AM FINDINGS: Lines, tubes, and devices: None. Lungs and pleura: Suspected trace left apical pneumothorax. No appreciable right-sided pneumothorax. Bilateral infrahilar and left basilar predominant heterogeneous opacities likely representing atelectasis. Cardiomediastinal silhouette: The cardiac silhouette is enlarged. A dual lead cardiac device is present with lead tips overlying the right atrial appendage and right ventricle. Musculoskeletal: Again seen minimally displaced bilateral rib fractures and left scapular fracture. IMPRESSION: Suspected trace left apical pneumothorax. No appreciable right-sided pneumothorax. Otherwise unchanged pulmonary findings as detailed. ASSESSMENT AND PLAN: 59 year old male with PMH of ESRD on HD MWF, T2DM, HFrEF and atrial fibrillation on eliquis and amiodarone, secondary hyperparathyroidism who presented as a CAT 1 trauma as a transfer from [facility] and was admitted to the TICU for multiple traumatic injuries including Grade 1 splenic injury, multiple bilateral rib fractures, multiple pelvic fractures resulting from a 6 foot fall into auto mechanical bay s/p R femur IMN and percutaneous pelvis fixation on 05/02. Endocrinology consulted for management of subclinical hypothyroidism. Concern for Subclinical Hypothyroidism TPO negative Pt with cardiac hx - Continue Levothyroxine 50 mcg daily - ?amiodarone induced thyroiditis - Recommend repeat TSH as outpt off of any multivitamins/biotin for at least for 3-4 days. If continue oin sonali riri MVI this needs to be held prior to lab testing Endocrinology is signing off. Please reach out with any questions Patient seen and case discussed with Attending Physician, Dr. Shimon Lemon MD Fellow Endocrinology Endocrinology service pager: [phone] GLUCOSE, FINGERSTICK-IN OFFICE Collecte d: 05/11/2024 8:01 AM Status: F Source: [facility] TYPE CODE TESTS RESULT OUT OF RANGE REFERENCE UNITS LAB [place] GLUCOSE, POC 129 High 74-109 mg/dL Result Comment: Notified FRANNIE URIBE MD Performed By: #### [id number] ### # NURSING GLUCOSE PROGRAM [address] [place] [address], [id number] PROGRESS NOTES Observed: 05/11/2024 6:26 AM Status: COMPLETED Source: [facility] DEPARTMENT OF SURGERY DIVISION OF TRAUMA, BURN, AND CRITICAL CARE TRAUMA INTENSIVE CARE UNIT (TICU) DAILY PROGRESS NOTE Patient: Amado Tran, 59 year old, male : 1965 Admit Date: 04/30/2024 Room: [facility] Today's Date: 05/11/2024, Length of stay: 11 day(s) Code Status: Full Code Height: 5' 9 Weight: 141.2 kg BMI: 45.97 SURGICAL ICU - STAFF NOTE Patient seen and examined on 05/11/2024 Interval History/Events: Background: Amado Tran is a 59 year old y/o male with PMH of Hyperparathyroidism, Pacemaker, ARASH, CAROL, HLD, GERD, Depression, ESRD (HD MWF, RUE AV Fistula), CKD, HTN, T2DM, Systolic HF, and atrial fibrillation on Eliquis who presented to via [facility] as an inter facility transfer from [facility] s/p Fall. Per reports Pt was at an critical access hospital [facility] location when he exited his vehicle to assist the senior quality control technician in opening his vehicle door, when he stepped behind his vehicle he accidentally fell through the floor opening aprox 6ft. Pt reports falling straight down, negative LOC, negative head strike. Pt was unable to get up under his own strength, EMS was called and Pt was extricated via EMS/FD, immobilized and transported to [facility] ED. Imaging at OSH demonstrated a Grade 1 splenic injury, multiple bilateral rib fractures, and multiple pelvic fractures. Received K-centra, as well as PRBC X 2 and Calcium Gluc. [facility] was requested for transport to for orthopedics and trauma evaluations. EN route Pt received an additional unit of whole blood. On arrival to pt alert and oriented x 3, w/ GCS-15. On 4LNC, Labile blood pressures and received an additional PRBC X 1, FFP X 1 in ED. Pt was COTE scanned again here at [facility] given the absence of contrast at OSH. Pt. Had CVC and A-line placed in ED and was admitted to TICU for respiratory and hemodynamic monitoring. Hospital Course: 04/30: Admitted to TICU s/p fall with B/L rib fxs, Pelvic fx's, and questionable Grade 1 splenic injury s/p fall at [facility] location. 05/01: Titrated on levophed. CBC trended. Seen by EP for pacer, no interrogation to be performed 2/2 EOL device. Upright XR done. OR deferred. Dialyzed. 05/02: Went to OR with ortho. Pressor requirements improved. 05/04: No HD, bumped due to renal emergency. Plan for 05/05. Weaning levophed as able. 05/05: Underwent iHD. Continue to wean levophed to goal of SBP > 100. N/V after breakfast, tigan x 1 with improvement. 05/06: Levophed weaned off overnight, continues on Midodrine. Hgb 6.7 today AM, repeat Type and Screen ordered with 1U RBCs. Recurrent emesis 30min after breakfast 05/07: Most recent EKG Qtc 567, will repeat. Tolerating minimal PO intake, no episodes of emesis or nausea. Discussed possibility of Corpak placement with patient if N/V and intolerance of PO intake continues. 05/08: Consult psych and EP. Encourage PO intake, plan for post-pyloric Corpak if no improvement by Saturday. HD today. 05/09: TSH 7, started synthroid and consulted endocrinology. Consulted cardiology for qTc, acceptable in setting of RBBB, want LFTs. Got 2U PRBCs and albumin due to MAPS in low 50s. Echo ordered, pending. Potential post-pyloric corpak Sat if poor PO intake. 05/11: Labile BP, otherwise asymptomatic. BP cuff mis-reading. Stable post-dialysis. Plan to transfer to floor. One-Liner: Pt is a 59 year old male with PMH of ESRD on HD MWF, T2DM, HFrEF and atrial fibrillation on eliquis who presented as a CAT 1 trauma as a transfer from [facility] and was admitted to the TICU for multiple traumatic injuries including Grade 1 splenic injury, multiple bilateral rib fractures, multiple pelvic fractures resulting from a 6 foot fall into auto mechanical bay. S/P R femur IMN and percutaneous pelvis fixation on 05/02. Course complicated by hypotension requiring multiple blood products as well as levophed. Course also complicated by hx of gastroparesis and limited PO intake. Acute overnight events: - Labile BP 70s/40s, otherwise asymptomatic: Midodrine 10 mg x 1, 500 mL LR bolus - some improvement - BP cuff misreading - No nausea/vomiting - HD today Lines: PIV x2 R AV fistula Vitals AND I/Os: 24 Hour Vitals Range: Vital sign ranges over the past 24 hours (retrieved 05/11/2024 at 6:39 AM): Tmax (24 hours): 98.1 ???F (36.7 ???C) Pulse Av.5 Min: 54 Max: 78 Systolic (24hrs), Av , Min:68 , Max:124 Diastolic (24hrs), Av, Min:33, Max:59 MAP (mmHg) Av.8 mmHg Min: 41 mmHg Max: 78 mmHg Resp Av.5 Min: 10 Max: 25 SpO2 Av.8 % Min: 93 % Max: 100 % Afebrile, 50-60s, 60-80/30-40, staurating well on BiPAP/2L NC Vital Signs: Patient Vitals for the past 24 hrs: BP Temp Temp src Pulse Resp SpO2 O2 Device O2 Flow Rate (l/min) 05/11/24 0500 79/45 -- -- 54 17 98 % -- -- 05/11/24 0436 74/43 -- -- 58 17 100 % -- -- 05/11/244 74/41 -- -- 59 14 100 % -- -- 05/11/243 76/44 -- -- 60 19 100 % -- -- 05/11/241 68/33 -- -- 58 19 100 % -- -- 05/11/240 68/33 -- -- 58 16 96 % -- -- 05/11/241 70/45 -- -- 58 11 100 % BiPAP 2 05/11/240 -- 98.1 ???F (36.7 ???C) Axillary 56 12 100 % -- -- 05/11/24 030 -- -- -- 55 12 100 % -- -- 05/11/24 0200 80/50 -- -- 55 14 100 % -- -- 05/11/24 0100 -- -- -- 59 10 100 % -- -- 05/11/24 0000 81/46 97.3 ???F (36.3 ???C) Oral 57 12 100 % BiPAP 2 05/10/242299 -- -- -- 58 14 100 % -- -- 05/10/24 2200 83/46 -- -- 62 15 100 % -- -- 05/10/242099 -- -- -- 65 13 100 % -- -- 05/10/242045 -- -- -- 67 20 95 % BiPAP 2 05/10/241999 -- 97.9 ???F (36.6 ???C) Oral -- -- -- -- -- 05/10/24 1800 92/54 -- -- 69 15 93 % -- -- 05/10/24 1602 -- -- -- 68 14 97 % Room air -- 05/10/24 1600 102/47 98.1 ???F (36.7 ???C) Axillary 68 19 93 % Room air -- 05/10/24 1400 107/57 -- -- 78 19 99 % -- -- 05/10/24 1220 -- -- -- -- -- 96 % Room air -- 05/10/24 1212 -- -- -- 62 17 100 % Nasal cannula 1 05/10/24 1200 124/59 97.9 ???F (36.6 ???C) Axillary 62 10 100 % Nasal cannula 1 05/10/24 1156 -- -- -- 63 18 100 % Nasal cannula 1 05/10/24 1000 107/56 -- -- 59 18 100 % -- -- 05/10/24 0900 120/59 -- -- 59 15 100 % Room air -- 05/10/24 0822 -- -- -- 58 25 98 % Nasal cannula 1 05/10/24 0802 -- -- -- 55 16 100 % Nasal cannula 1 05/10/24 0800 -- 97.7 ???F (36.5 ???C) Axillary 55 13 100 % Nasal cannula 1 24 Hour I AND Os: In: 1220 (8.6 mL/kg) [P.O.:500] Out: - (0 mL/kg) Net: 1220 Weight: 141.2 kg PO: 500 mL, 3 x meals BM x 1 Physical Exam: General: Resting comfortably on room air. Alert. In no acute distress. Neurological: AAOx4, GCS-15. Motor and sensory grossly intact. HEENT: Normocephalic, atraumatic. Cardiac: Regular rate and rhythm. S1/S2 audible. No murmurs/rubs/gallops. Peripheral pulses palpable and symmetrical bilaterally. Pulmonary: Saturating well on room air. Diminished breath sounds to bases. No wheezing, rhonchi, or rales. Abdomen: Large, rounded, soft, non-tender, non-distended. Extremities: SCDs. RLE with multiple sutured incision sites over distal lateral and medial thigh, all well approximated without any erythema or drainage. Distal pulses are 2+ and intact bilaterally. Tenderness on palpation and manipulation of RLE. Trace pedal edema. Compartments soft but tender. Otherwise warm, well perfused. Moves all extremities spontaneously. Lab Data: 6.1 8.4 / 172 / 26.6 CBC: 05/11/2024: 2:36 AM 134 100 47 / 141 4.2 26 4.99 BMP: 05/11/2024: 2:36 AM BMP: BMP (last 3 years, up to 8 values) 05/11/2024 05/10/2024 05/09/2024 05/08/2024 05/07/2024 05/06/2024 05/05/2024 05/04/2024 2:36 AM 2:49 AM 1:17 AM 4:11 AM 4:20 AM 4:42 AM 3:59 AM 9:47 PM Na 134 134 135 131 132 132 128 130 K 4.2 4.4 4.7 4.8 4.6 4.4 5.2 5.3 Cl 100 100 99 93 94 95 91 92 CO2 26 25 24 25 24 25 25 24 Gap 12 13 17 18 19 16 17 19 Glu 141 214 124 112 99 95 90 148 BUN 47 32 35 63 55 44 79 74 Cr 4.99 3.60 4.57 7.48 6.91 5.69 8.72 8.31 Ca 7.8 7.7 7.5 7.7 7.8 7.7 7.8 7.7 eGFR 13 19 14 8 8 11 6 7 CBC: CBC (last 3 years, up to 8 values) 05/11/2024 05/10/2024 05/09/2024 05/09/2024 05/08/2024 05/07/2024 05/06/2024 05/06/2024 2:36 AM 2:49 AM 1:11 PM 1:17 AM 4:11 AM 4:20 AM 6:32 PM 4:42 AM WBC 6.1 8.5 8.6 9.4 9.2 7.1 8.1 7.0 RBC 2.80 2.80 2.89 2.20 2.35 2.40 2.61 2.13 Hgb 8.4 8.4 8.8 6.9 7.6 7.4 8.3 6.7 Hct 26.6 26.1 26.9 20.6 22.5 23.0 25.4 20.5 MCV 95 94 93 97 96 96 97 97 RDW 20.2 20.2 19.4 17.1 16.3 16.1 16.6 16.7 Plt 172 178 148 151 155 116 127 108 PT/PTT/INR: PT/PTT/INR (last 3 years, up to 8 values) 05/01/2024 05/01/2024 04/30/2024 4:51 PM 10:10 AM 8:44 PM aPTT 29 -- -- INR -- 1.16 1.29 Hepatic Panel: LFT's (last 3 years, up to 8 values) 05/10/2024 2:49 AM T Prot 5.1 Albumin 2.6 D Bili 0.27 T Bili 0.7 Alk Phos 65 ALT 5 AST 63 Glucose: Fingerstick Glucose (last 72 hours) (Last 10 results in the past 72 hours) Glucose 05/10/24 2016 282 05/10/24 1658 260 05/10/24 1211 185 05/10/24 0804 190 05/09/24 2130 213 05/09/24 1748 230 05/09/24 1156 111 05/09/24 0813 126 05/08/24 2126 138 05/08/24 1654 131 TSH: Lab Results Component Value Date TSH 7.124 (H) 05/09/2024 Wt Readings from Last 5 Encounters: 05/08/24 (!) 311 lb 4.6 oz (141.2 kg) Imaging Results (over previous 24 hours): No new imaging results. Assessment and Plan: Diagnosis s/p fall down ~ 6Ft hole: - Right L1-L3 TP Fx - Anterior tension ban disruption of T11 - Right superior/inferior pubic rami Fx w/ extension into acetab - Left scapular Fx w/ intramuscular shoulder hematoma - Bilateral sacral Ala Fx - Right 2,3,4,5,6,7,8 Rib Fx - Left 4,5,6,7,8 Rib Fx - Bilateral pulmonary contusions - Right pleural effusion - Trace hemoperitoneum - Right distal femur fx - Acute blood loss anemia - Hemorrhagic shock - Shock of unknown etiology Associated Hospital Diagnosis: - Hyperkalemia - Hypomagnesemia - Recurrent Nausea/Vomiting PMH: - Hyperparathyroidism - ARASH - CAROL - Atrial- Fibrillation - HTN - HLD - Pacer - GERD - ESRD - Depression - CKD - T2DM - CHF - Gastroparesis Home Medications: ASA 81mg daily Insulin NPH (70U BID) Pioglitazone 30mg daily Sertraline 100mg daily Amiodarone 200mg daily Sevelamer 1600mg TID Apixaban 5mg BID Atorvastatin 40mg daily Gabapentin 100mg qHS Midodrine 10mg with dialysis Omeprazole 40mg daily Metoclopramide 10mg QID Furosemide 40mg BID Isosorbide Mononitrate 20mg q12h Metoprolol 25mg Daily Incidental Findings: - Cholelithiasis - Indeterminate right adrenal nodule Plan: Neurological: # Acute post traumatic pain # Hx of Depression - Analgesia - Acetaminophen 1G Q6hrs sched - Decreased Oxycodone to 2.5/5 mg Q4hrs PRN - Lidocaine - 2 patch Q24h - Robaxin 750mg Q6H - Psych consulted - Increase Zoloft to 125 mg PO daily - Continue Gabapentin 100 mg at bedtime - Melatonin 3 mg PO at 1900 for sleep - Labs: TSH, Vitamin B12, Vitamin D, Mg2+, HIV/Hep B/Hep C/UA/urine tox - B12 960 Cardiovascular: # Hx of HTN, HLD, CHF, Pacer, A-fib - Continue home Apixaban 5 mg BID PO for hx of atrial fibrillation, ASA (per patient only taken for general prophylaxis), amio, lipitor - Can consider restarting scheduled midodrine if blood pressures continue to be labile - Continue midodrine 10 mg PRN before dialysis - Continue TELE monitoring - Last echo 01/05, LVEF 60%. Repeat echo ordered, pending. - EP consulted due to prolonged qTc -Underlying RBBB - qTc is accepatable range -Obatin LFTs -Recommend repeating TFTs once acute illness as resolved -Okay to continue amiodarone Respiratory: # Hx of ARASH - Saturating well on room air - Maintain SpO2 > 92% - Continue pulse ox monitoring - Encourage incentive spirometry - Requiring BiPAP at bedtime - Has home CPAP prescribed, noncompliant GI/Diet: # Hx of GERD # Hx of Gastroparesis - Diet: Regular; Strict Low K, 40 mEq; improved PO intake - Continue home Reglan (qTc appropriate in setting of RBBB per EP) - Continue erythromycin 500 mg PO BID (qTc appropriate in setting of RBBB per EP) - Nutrition consulted -Start oral supplements. Boost Breeze with breakfast - K+ free. Novasource Renal BID - low K+ -Encourage small frequent meals - aim for BG <180. Consider downgrading to FLD if n/v persists with solid food intake -If persistent n/v may need evaluate need for post-pyloric corpak placement. Novasource Renal. Initiate at 10 mL/hr and advance by 10 mL/hr q 6 hours to a goal rate of 50 mL/hr. Liquacel 1 packet TID. Will provide: 1080 mL TF, 2160 kcal, 98 g protein, 774 mL free water + 300 kcal, 48 g protein from liquacel -History of folate deficiency and low B12 - recheck. Check vitamin D 25 OH - If continues to have poor PO intake consider post-pyloric corpak - Discontinue Tigan 100 mg IM Q12h PRN for nausea - Discontinue Diazepam 2 mg IV Q8H PRN - Bowel reg: Senna 8.6 mg PO - discontinue - GI ppx: pantoprazole (takes omeprazole at home) Renal/Electrolytes: # Hx of ESRD - Nephro consulted: - MWF HD - Continue midodrine prior to HD - Renal MV and Renal diet - BMP/Mg/P daily - Replace electrolytes as indicated - Maintain Mg >2, K >4 - Measure strict I AND O - Continue home Renvela Infectious Disease: # no acute issues - Afebrile, without leukocytosis - Monitor temperature and WBC for signs of infection Hematology: # Hemorrhagic shock - Hgb stable (8.4) - T AND S (05/10) - CBC daily - Maintain hemoglobin >7 - Retacrit with dialysis Endocrine: # Hx of Hyperparathyroidism, T2DM # Hypothyroidism, 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 Plan to restart on discharge. Musculoskeletal: # Pelvic Fx's # Right distal femur fx # Left Scapula Fx # S/p OR 05/02 - Progressive mobility - Ortho consulted, following peripherally - NWB BLE - Pain control: recommend multimodal -PT/OT consult - DVT ppx: eliquis per primary -FU with Dr. Chu in 2 weeks at [facility] -Orthopaedics will continue to follow peripherally - PT/OT - Recommend further therapy services in a Nursing Home Setting once medically cleared - Will continue to follow patient while in hospital as appropriate. - PMR Consulted - Ortho spine (05/01): - No acute spine interventions indicated Prophylaxis: - SCDs bilaterally - On therapeutic anticoagulation via home Eliquis - Protonix Follow Up: - PCP: No primary care provider on file. - Ortho: with Dr. Chu in 2 weeks at [facility] - Endocrine: Repeat the TSH as outpt in 4 weeks, hold the sonali riri vitamin for 4 days prior to the blood work LDA/Restraints: - PIV X 2 - RUE AVF Code Status: - Full Code Disposition: - Transfer to trauma floor today - long term setting once medically cleared Patient seen and evaluated with Attending Surgeon Dr. Canales. Please see attending attestation for final plan/recommendations. Gorge Reed MD Anesthesiology Medical Aide, PGY1 EGS/TRAUMA/ICU STAFF NOTE: I saw and evaluated the patient. I personally obtained the kirby and critical portions of the history and physical exam. I reviewed the provider's documentation and discussed the patient with the provider. I agree with the provider's medical decision making as documented in the provider's note. I personally reviewed any images obtained in the last 24 hours of evaluation. Additional findings, impression, and plan: none Joel Canales MD Emergency General Surgery Surgical Critical Care Trauma Surgery Pager: [phone] MAGNESIUM Collected: 4 2:36 AM Status: F Source: THE [facility] TYPE CODE TESTS RESULT OUT OF RANGE REFERENCE UNITS LAB mag MG 2.2 1.9-2.7 mg/dL Performed By: #### MG, CH8, PHOS #### [facility] [address] [place] [address], [id number] PHOSPHORUS Collected: 4 2:36 AM Status: F Source: [facility] TYPE CODE TESTS RESULT OUT OF RANGE REFERENCE UNITS LAB PHOS PHOS 3.5 2.5-5.0 mg/dL Performed By: #### MG, CH8, PHOS #### [facility] [address] [place] [address], BASIC METABOLIC PANEL Collected: 2023 2:36 AM Status: F Source: THE [facility] TYPE CODE TESTS RESULT OUT OF RANGE REFERENCE UNITS LAB GLU GLU 141 High 74-109 mg/dL LAB NA3 NA 134 Low 136-145 mmol/L LAB POT K 4.2 3.5-5.0 mmol/L LAB CO2 CO2 26 21-31 mmol/L LAB CHLOR CL 100 98-107 mmol/L LAB BUN BUN 47 High 7-25 mg/dL LAB CREAT CREAT 4.99 High 0.70-1.30 mg/dL LAB CA CA 7.8 Low 8.6-10.3 mg/dL LAB ANION GAP ANION GAP 12 10-20 LAB eGFR ESTIMATED GFR (CKD-EPI) 13 Low >=60 mL/min/1 .73sqm Result Comment: 2020 CKD EPI Equation using Creatinine without Race Comment: Estimated glomerular filtration rate (eGFR) is calculated without a race coefficient. Values should be interpreted in the context of the patient's full clinical presentation. Reference: 1. Christophe C, Sagrario M, Gena DC, et al.. A Unifying Approach for GFR Estimation: Recommendations of the NKF-ASN Task Force on Reassessing the Inclusion of Race in Diagnosing Kidney Disease. [place] Journal of Kidney Diseases 2021;79(2):268- 88.e1. 2. N Engl J Med 1 Vol. 385 Issue 19 Pages 1885-8075 Performed By: #### , FLORENCIA8, PHOS #### [facility] [address] [place], [place], COMPLETE BLOOD COUNT Collected: 2:36 AM Status: F Source: THE [facility] [employer] TYPE CODE TESTS RESULT OUT OF RANGE REFERENCE UNITS LAB WBC WBC 6.1 4.5-11.5 K/uL LAB RBC RBC 2.80 Low 4.50-5.90 M/uL LAB HGB HGB 8.4 Low 13.9-16.3 g/dL LAB HCT HCT 26.6 Low 41.0-53.0 % LAB MCV MCV 95 80-100 fL LAB MCH MCH 30.1 26.0-34.0 pg LAB MCHC MCHC 31.7 Low 32.0-35.9 g/dL LAB PLT PLT 172 150-400 K/uL LAB RDW RDW-CV 20.2 High 11.5-14.5 % LAB MPV MPV 8.8 7.5-11.2 fL Performed By: #### CBC #### [facility] [address] [place], [address] GLUCOSE, FINGERSTICK-IN OFFICE Collecte d: 05/10/2024 8:16 PM Status: F Source: THE [facility] TYPE CODE TESTS RESULT OUT OF RANGE REFERENCE UNITS LAB Mongolian GLUCOSE, POC 282 High 74-109 mg/dL Performed By: #### [id number] ### # NURSING GLUCOSE PROGRAM [address] [place] [address], [address] GLUCOSE, FINGERSTICK-IN OFFICE Collecte d: 05/10/2024 4:58 PM Status: F Source: [facility] TYPE CODE TESTS RESULT OUT OF RANGE REFERENCE UNITS LAB Mong[place]ian GLUCOSE, POC 260 High 74-109 mg/dL Performed By: #### [id number] ### # NURSING GLUCOSE PROGRAM [address] [place], [address] PROGRESS NOTES Observed: 05/10/2024 4:29 PM Status: COMPLETED Source: [facility] Nephrology Follow-up Note Amado Tran 59 year old [phone] lbs MRN/Room: [address] [place] [address] Subjective: No HD today For Tomorrow. Objective: Meds: insulin glargine 8 Units At Bedtime metoclopramide 5 mg Every 8 hours erythromycin base 500 mg 2x Daily levothyroxine 50 mcg Before Breakfast melatonin 3 mg Daily Melatonin sertraline 125 mg Daily [START ON 05/11/2024] folic acid 1 mg Daily vitamin D2 ergocalciferol 50,000 Units Q7 Days cholecalciferol 1,000 Units Daily Normal consistency 2x Daily with Meals Normal consistency Daily with breakfast Apixaban 5 mg 2x Daily Sonali-Riri RX 1 Tablet Daily insulin regular 4-14 Units 4x Daily AC AND HS methocarbamol 750 mg Every 6 hours epoetin antione-epbx 10,000 Units Q M, W AND F acetaminophen 1,000 mg q6h nystatin 2x Daily albuterol 2.5 mg QID RT sevelamer carbonate 800 mg 3x Daily with Meals amiodarone 200 mg Daily atorvastatin 40 mg At Bedtime gabapentin 100 mg At Bedtime pantoprazole 40 mg Daily 30 min before breakfast lidocaine 2 Patch Every 24 hours HYDROmorphone HCl PF 0.2 mg Q4H PRN diazePAM 2 mg Q8H PRN midodrine 10 mg Daily PRN albuterol 2.5 mg Q4H PRN oxyCODONE 10 mg Q4H PRN oxyCODONE 5 mg Q4H PRN dextrose iv for hypoglycemia orderable 125 mL PRN Or glucagon 1 mg PRN Or dextrose 15 g of glucose PRN Or dextrose 30 g of glucose PRN Vital sign ranges over the past 24 hours (retrieved 05/10/2024 at 4:29 PM): Tmax (24 hours): 98.1 ???F (36.7 ???C) Pulse Av.5 Min: 53 Max: 78 Systolic (24hrs), Av , Min:107 , Max:124 Diastolic (24hrs), Av, Min:56, Max:74 MAP (mmHg) Av.8 mmHg Min: 72 mmHg Max: 89 mmHg Resp Av.5 Min: 2 Max: 25 SpO2 Av.2 % Min: 95 % Max: 100 % Patient Vitals for the past 24 hrs: BP Temp Temp src Pulse Resp SpO2 O2 Device O2 Flow Rate (l/min) 05/10/24 1602 -- -- -- 68 14 97 % Room air -- 05/10/24 1600 -- 98.1 ???F (36.7 ???C) Axillary -- -- -- -- -- 05/10/24 1400 107/57 -- -- 78 19 99 % -- -- 05/10/24 1220 -- -- -- -- -- 96 % Room air -- 05/10/24 1212 -- -- -- 62 17 100 % Nasal cannula 1 05/10/24 1200 124/59 97.9 ???F (36.6 ???C) Axillary 62 10 100 % Nasal cannula 1 05/10/24 1156 -- -- -- 63 18 100 % Nasal cannula 1 05/10/24 1000 107/56 -- -- 59 18 100 % -- -- 05/10/24 0900 120/59 -- -- 59 15 100 % Room air -- 05/10/24 0822 -- -- -- 58 25 98 % Nasal cannula 1 05/10/24 0802 -- -- -- 55 16 100 % Nasal cannula 1 05/10/24 0800 -- 97.7 ???F (36.5 ???C) Axillary 55 13 100 % Nasal cannula 1 05/10/24 0600 -- -- -- 61 15 100 % -- -- 05/10/24 0500 -- -- -- 54 2 100 % -- -- 05/10/24 0400 -- -- -- 53 14 100 % -- -- 05/10/24 0355 -- 97.6 ???F (36.4 ???C) Axillary 53 17 100 % -- -- 05/10/24 0300 -- -- -- 55 17 100 % -- -- 05/10/24 0200 -- -- -- 55 10 100 % -- -- 05/10/24 0100 -- -- -- 58 15 100 % -- -- 05/10/24 0026 -- -- -- 66 16 100 % BiPAP 1 05/10/24 0000 -- -- -- 60 15 100 % -- -- 05/09/24 2331 -- 98 ???F (36.7 ???C) Oral 59 16 100 % -- -- 05/09/242299 -- -- -- 62 18 100 % -- -- 05/09/242199 -- -- -- 66 20 98 % -- -- 05/09/242099 -- -- -- 62 18 99 % -- -- 05/09/242037 -- -- -- 61 14 99 % -- -- 05/09/242016 -- -- -- 65 14 97 % Nasal cannula 1 05/09/24 2000 122/58 98.1 ???F (36.7 ???C) Axillary 58 13 95 % Nasal cannula 1 10/26/24 1800 123/74 -- -- 66 19 99 % -- -- Intake/Output Summary (Last 24 hours) at 05/10/2024 1629 Last data filed at 05/10/2024 1230 Gross per 24 hour Intake 440 ml Output -- Net 440 ml General appearance: no distress Eyes: non-icteric Skin: no apparent rash Heart: s1s2 regular Lungs: reduced breathing sounds no wheezing/crackles Abdomen: soft, nt/nd Extremities: +1 LL edema bilat Caceres Neuro: No FND,no asterixis Access RUE AVG with bruit and thrill. Echymosis. Blood Labs: Arterial Blood Gases None CBC/PT/INR 05/10/2024 05/09/2024 05/09/2024 05/08/2024 2:49 AM 1:11 PM 1:17 AM 4:11 AM WBC 8.5 8.6 9.4 9.2 RBC 2.80 2.89 2.20 2.35 Hgb 8.4 8.8 6.9 7.6 Hct 26.1 26.9 20.6 22.5 MCV 94 93 97 96 RDW 20.2 19.4 17.1 16.3 Plt 178 148 151 155 Basic Metabolic Panel 05/10/2024 05/09/2024 05/08/2024 2:49 AM 1:17 AM 4:11 AM Na 134 135 131 K 4.4 4.7 4.8 Cl 100 99 93 CO2 25 24 25 Gap 13 17 18 Glu 214 124 112 BUN 32 35 63 Cr 3.60 4.57 7.48 Ca 7.7 7.5 7.7 Mg 2.1 2.1 2.5 PO4 3.6 4.3 6.5 ASSESSMENT: Amado Tran is a 59 year old with PMHx of Pacemaker, ARASH, HLD, GERD, Depression, ESRD (HD MWF, RUE AV Fistula), CKD, HTN, T2DM, Systolic HF, and atrial fibrillation on Eliquis presenting to the ED after falling into a 6 foot hole. Multiple fractures. ESRD on HD MWF - Access: RUE AVG - electrolytes: hyponatremia from impaired free water deficit - anemia: from OR and CKD, hgb below goal - CKDMBD: phos elevated, calcium low albumin unknown. - for Midodrine before HD - EPO with HD. #Ortho surgery 05/02 #Needs spine surgery? RECOMMENDATIONS: - MWF HD - No indication for HD on assessment. - Continue midodrine prior to HD. - Renal MV and Renal diet. Ayleen Kurtz MD Nephrology Fellow Daytime / Weekend Renal Pager [phone] After 7 pm Emergencies Pager [phone] Attending/Teaching Physician Note: I saw and evaluated the patient, I personally obtained kirby and critical portions of the history and physical exam. I reviewed the fellow's documentation and discussed the patient with the fellow. I agree with the fellow's medical decision making as documented in the fellow's note. Additional findings, impression, and plan are as follows: ESKD admitted s/p fall with multiple fractures - no acute indications for dialysis today, tentatively plan on HD tomorrow on MWF schedule - con't midodrine (that pt had been on prior to admission) before dialysis for BP support Alan Miranda MD GLUCOSE, FINGERSTICK-IN OFFICE Collecte d: 05/10/2024 12:11 PM Status: F Source: [facility] TYPE CODE TESTS RESULT OUT OF RANGE REFERENCE UNITS LAB Mong[place] GLUCOSE, POC 185 High 74-109 mg/dL Performed By: #### [id number] ### # NURSING GLUCOSE PROGRAM [address] [place] [address], [address] PROGRESS NOTES Observed: 05/10/2024 9:34 AM Status: COMPLETED Source: [facility] Renal Dosing Servic e Name: Amado Tran Age: [age] year old Gender: male Ht: 5' 9 Wt: 141.2 kg Patient is currently prescribed the following renally monitored Medication(s): Renally Adjusted Meds (720h ago, onward) Ordered Stop Metoclopramide 10 mg IV q8hrs -- Relevant objective data reviewed: Serum creatinine: 3.6 mg/dL (H) 05/10/24 0249 Estimated creatinine clearance: 30.52 mL/min (A) Assessment and Recommendation: The medication required adjustment for renal function at the time of initial order verification. The original medication order 10 mg IV q8hrs has been updated to 5 mg IV q8hrs. Medication therapy has been updated per consult agreement. Tasneem Yadira, [facility] Department of Pharmacy Services TYPE AND SCREEN Collected: 9:06 AM Status: F Source: THE [facility] TYPE CODE TESTS RESULT OUT OF RANGE REFERENCE UNITS LAB I ABORH ABO RH TYPE A Positive LAB ABSC INT ABSC INT Negative LAB HXCHK ABORH/AB/TR HISTORY A Positive Performed By: #### TS #### [facility] [address] [place] [address], ANTIMICROSOMAL ANTIBODY Collected: 04/15 9:06 AM Status: F Source: [facility] TYPE CODE TESTS RESULT OUT OF RANGE REFERENCE UNITS LAB MICRSML AB MICRSML AB 0.60 <=9.00 IU/mL Performed By: #### MICRSML A B #### [facility] [address] [place] [address], GLUCOSE, FINGERSTICK-IN OFFICE Collecte d: 05/10/2024 8:04 AM Status: F Source: [facility] TYPE CODE TESTS RESULT OUT OF RANGE REFERENCE UNITS LAB Mong[place] GLUCOSE, POC 190 High 74-109 mg/dL Performed By: #### [id number] ### # NURSING GLUCOSE PROGRAM [address] [place] [address], [address] PROGRESS NOTES Observed: 05/10/2024 6:42 AM Status: COMPLETED Source: [facility] Attestation signed by Guillermo Giron MD at 05/10/2024 10:59 AM I have personally seen and examined the patient with the team and nursing staff at the patient's bedside. I have reviewed recent data and reports. I have also reviewed lab values, imaging, and current medications profile. I discussed my findings with the team. I reviewed the full note by the resident with the detailed findings, and I agree with the assessment, overall impression, and plan of care. We have also updated the patient or any available family as well as other services with our care plan. Total Critical Care Time 35 minutes Guillermo Giron MD DEPARTMENT OF SURGERY DIVISION OF TRAUMA, BURN, AND CRITICAL CARE TRAUMA INTENSIVE CARE UNIT (TICU) DAILY PROGRESS NOTE Patient: Amado Tran, 59 year old, male : 1965 Admit Date: 04/30/2024 Room: [place] [address] Today's Date: 05/10/2024, Length of stay: 10 day(s) Code Status: Full Code Height: 5' 9 Weight: 141.2 kg BMI: 45.97 SURGICAL ICU - STAFF NOTE Patient seen and examined on 05/10/2024 Interval History/Events: Background: Amado Tran is a 59 year old y/o male with PMH of Hyperparathyroidism, Pacemaker, ARASH, CAROL, HLD, GERD, Depression, ESRD (HD MWF, RUE AV Fistula), CKD, HTN, T2DM, Systolic HF, and atrial fibrillation on Eliquis who presented to via [facility] as an inter facility transfer from [facility] s/p Fall. Per reports Pt was at an instant oil change location when he exited his vehicle to assist the senior quality control technician in opening his vehicle door, when he stepped behind his vehicle he accidentally fell through the floor opening aprox 6ft. Pt reports falling straight down, negative LOC, negative head strike. Pt was unable to get up under his own strength, EMS was called and Pt was extricated via EMS/FD, immobilized and transported to [facility] ED. Imaging at OSH demonstrated a Grade 1 splenic injury, multiple bilateral rib fractures, and multiple pelvic fractures. Received K-centra, as well as PRBC X 2 and Calcium Gluc. [facility] was requested for transport to for orthopedics and trauma evaluations. EN route Pt received an additional unit of whole blood. On arrival to pt alert and oriented x 3, w/ GCS-15. On 4LNC, Labile blood pressures and received an additional PRBC X 1, FFP X 1 in ED. Pt was COTE scanned again here at [facility] given the absence of contrast at OSH. Pt. Had CVC and A-line placed in ED and was admitted to TICU for respiratory and hemodynamic monitoring. Hospital Course: 04/30: Admitted to TICU s/p fall with B/L rib fxs, Pelvic fx's, and questionable Grade 1 splenic injury s/p fall at instant oil change location. 05/01: Titrated on levophed. CBC trended. Seen by EP for pacer, no interrogation to be performed 2/2 EOL device. Upright XR done. OR deferred. Dialyzed. 05/02: Went to OR with ortho. Pressor requirements improved. 05/04: No HD, bumped due to renal emergency. Plan for 05/05. Weaning levophed as able. 05/05: Underwent iHD. Continue to wean levophed to goal of SBP > 100. N/V after breakfast, tigan x 1 with improvement. 05/06: Levophed weaned off overnight, continues on Midodrine. Hgb 6.7 today AM, repeat Type and Screen ordered with 1U RBCs. Recurrent emesis 30min after breakfast 05/07: Most recent EKG Qtc 567, will repeat. Tolerating minimal PO intake, no episodes of emesis or nausea. Discussed possibility of Corpak placement with patient if N/V and intolerance of PO intake continues. 05/08: Consult psych and EP. Encourage PO intake, plan for post-pyloric Corpak if no improvement by Saturday. HD today. 05/09: TSH 7, started synthroid and consulted endocrinology. Consulted cardiology for qTc, acceptable in setting of RBBB, want LFTs. Got 2U PRBCs and albumin due to MAPS in low 50s. Echo ordered, pending. Potential post-pyloric corpak Sat if poor PO intake. One-Liner: Pt is a 59 year old male with PMH of ESRD on HD MWF, T2DM, HFrEF and atrial fibrillation on eliquis who presented as a CAT 1 trauma as a transfer from [facility] and was admitted to the TICU for multiple traumatic injuries including Grade 1 splenic injury, multiple bilateral rib fractures, multiple pelvic fractures resulting from a 6 foot fall into auto mechanical bay. S/P R femur IMN and percutaneous pelvis fixation on 05/02. Course complicated by hypotension requiring multiple blood products as well as levophed. Course also complicated by hx of gastroparesis and limited PO intake. Acute overnight events: Ate some mach and cheese and tolerated well. Lines: PIV x2 L femoral A-line R AV fistula Vitals AND I/Os: 24 Hour Vitals Range: Vital sign ranges over the past 24 hours (retrieved 05/10/2024 at 10:45 AM): Tmax (24 hours): 98.9 ???F (37.2 ???C) Pulse Av.3 Min: 53 Max: 78 Systolic (24hrs), Av , Min:107 , Max:123 Diastolic (24hrs), Av, Min:56, Max:74 MAP (mmHg) Av.6 mmHg Min: 72 mmHg Max: 89 mmHg Resp Av.6 Min: 2 Max: 25 SpO2 Av.1 % Min: 95 % Max: 100 % Vital Signs: Patient Vitals for the past 24 hrs: BP Temp Temp src Pulse Resp SpO2 O2 Device O2 Flow Rate (l/min) 05/10/24 1000 107/56 -- -- 59 18 100 % -- -- 05/10/24 0900 120/59 -- -- 59 15 100 % Room air -- 05/10/24 0822 -- -- -- 58 25 98 % Nasal cannula 1 05/10/24 0802 -- -- -- 55 16 100 % Nasal cannula 1 05/10/24 0800 -- 97.7 ???F (36.5 ???C) Axillary 55 13 100 % Nasal cannula 1 05/10/24 0600 -- -- -- 61 15 100 % -- -- 05/10/24 0500 -- -- -- 54 2 100 % -- -- 05/10/24 0400 -- -- -- 53 14 100 % -- -- 05/10/24 0355 -- 97.6 ???F (36.4 ???C) Axillary 53 17 100 % -- -- 05/10/24 0300 -- -- -- 55 17 100 % -- -- 05/10/24 0200 -- -- -- 55 10 100 % -- -- 05/10/24 0100 -- -- -- 58 15 100 % -- -- 05/10/24 0026 -- -- -- 66 16 100 % BiPAP 1 05/10/24 0000 -- -- -- 60 15 100 % -- -- 05/09/24 2331 -- 98 ???F (36.7 ???C) Oral 59 16 100 % -- -- 05/09/242299 -- -- -- 62 18 100 % -- -- 05/09/242199 -- -- -- 66 20 98 % -- -- 05/09/242099 -- -- -- 62 18 99 % -- -- 05/09/242037 -- -- -- 61 14 99 % -- -- 05/09/242016 -- -- -- 65 14 97 % Nasal cannula 1 05/09/24 2000 122/58 98.1 ???F (36.7 ???C) Axillary 58 13 95 % Nasal cannula 1 05/09/24 1800 123/74 -- -- 66 19 99 % -- -- 05/09/24 1624 -- -- -- 72 17 99 % -- 1 05/09/24 1600 117/59 -- -- 70 18 98 % Nasal cannula 1 05/09/24 1400 -- -- -- 78 18 97 % -- -- 05/09/24 1330 -- -- -- 66 16 98 % -- -- 05/09/24 1200 -- 98.9 ???F (37.2 ???C) Oral 66 15 100 % Nasal cannula 1 05/09/24 1115 -- -- -- 65 14 99 % -- -- 24 Hour I AND Os: In: 1005 (7.1 mL/kg) [P.O.:200] Out: - (0 mL/kg) Net: 1005 Weight: 141.2 kg Physical Exam: General: Resting comfortably on BiPAP. Arousable. In no acute distress. Neurological: AAOx4, GCS-15. Motor and sensory grossly intact. HEENT: Normocephalic, atraumatic. Cardiac: Regular rate and rhythm. S1/S2 audible. No murmurs/rubs/gallops. Peripheral pulses palpable and symmetrical bilaterally. Pulmonary: Clear to auscultation bilaterally. Saturating well on BiPAP. No wheezing, rhonchi, or rales. Abdomen: Large, rounded, soft, non-tender, non-distended. Extremities: SCDs. RLE with multiple sutured incision sites over distal lateral and medial thigh, all well approximated without any erythema or drainage. Distal pulses are 2+ and intact bilaterally. Tenderness on palpation and manipulation of RLE. Nonpitting edema of the R foot and leg. Compartments soft but tender. Otherwise warm, well perfused. Moves all extremities spontaneously. Lab Data: 8.5 8.4 / 178 / 26.1 CBC: 05/10/2024: 2:49 AM 134 100 32 / 214 4.4 25 3.60 BMP: 05/10/2024: 2:49 AM BMP: BMP (last 3 years, up to 8 values) 05/10/2024 05/09/2024 05/08/2024 05/07/2024 05/06/2024 05/05/2024 05/04/2024 05/04/2024 2:49 AM 1:17 AM 4:11 AM 4:20 AM 4:42 AM 3:59 AM 9:47 PM 1:45 AM Na 134 135 131 132 132 128 130 130 K 4.4 4.7 4.8 4.6 4.4 5.2 5.3 5.1 Cl 100 99 93 94 95 91 92 95 CO2 25 24 25 24 25 25 24 23 Gap 13 17 18 19 16 17 19 17 Glu 214 124 112 99 95 90 148 184 BUN 32 35 63 55 44 79 74 61 Cr 3.60 4.57 7.48 6.91 5.69 8.72 8.31 7.69 Ca 7.7 7.5 7.7 7.8 7.7 7.8 7.7 7.8 eGFR 19 14 8 8 11 6 7 7 CBC: CBC (last 3 years, up to 8 values) 05/10/2024 05/09/2024 05/09/2024 05/08/2024 05/07/202405/06/2024 05/06/2024 05/05/2024 2:49 AM 1:11 PM 1:17 AM 4:11 AM 4:20 AM 6:32 PM 4:42 AM 3:59 AM WBC 8.5 8.6 9.4 9.2 7.1 8.1 7.0 10.2 RBC 2.80 2.89 2.20 2.35 2.40 2.61 2.13 2.24 Hgb 8.4 8.8 6.9 7.6 7.4 8.3 6.7 7.1 Hct 26.1 26.9 20.6 22.5 23.0 25.4 20.5 21.2 MCV 94 93 97 96 96 97 97 95 RDW 20.2 19.4 17.1 16.3 16.1 16.6 16.7 16.8 Plt 178 148 151 155 116 127 108 111 PT/PTT/INR: PT/PTT/INR (last 3 years, up to 8 values) 05/01/2024 05/01/2024 04/30/2024 4:51 PM 10:10 AM 8:44 PM aPTT 29 -- -- INR -- 1.16 1.29 Hepatic Panel: LFT's (last 3 years, up to 8 values) 05/10/2024 2:49 AM T Prot 5.1 Albumin 2.6 D Bili 0.27 T Bili 0.7 Alk Phos 65 ALT 5 AST 63 Glucose: Fingerstick Glucose (last 72 hours) (Last 10 results in the past 72 hours) Glucose 05/10/24 0804 190 05/09/24 2130 213 05/09/24 1748 230 05/09/24 1156 111 05/09/24 0813 126 05/08/24 2126 138 05/08/24 1654 131 05/08/24 1148 126 05/08/24 0737 118 Comment: Notified FRANNIE URIBE MD
05/07/24 2204 165 TSH: Lab Results Component Value Date TSH 7.124 (H) 05/09/2024 Wt Readings from Last 5 Encounters: 05/08/24 (!) 311 lb 4.6 oz (141.2 kg) Imaging Results (over previous 24 hours): No imaging results. Assessment and Plan: Diagnosis s/p fall down ~ 6Ft hole: - Right L1-L3 TP Fx - Anterior tension ban disruption of T11 - Right superior/inferior pubic rami Fx w/ extension into acetab - Left scapular Fx w/ intramuscular shoulder hematoma - Bilateral sacral Ala Fx - Right 2,3,4,5,6,7,8 Rib Fx - Left 4,5,6,7,8 Rib Fx - Bilateral pulmonary contusions - Right pleural effusion - Trace hemoperitoneum - Right distal femur fx - Acute blood loss anemia - Hemorrhagic shock - Shock of unknown etiology Associated Hospital Diagnosis: - Hyperkalemia - Hypomagnesemia - Recurrent Nausea/Vomiting PMH: - Hyperparathyroidism - ARASH - CAROL - Atrial- Fibrillation - HTN - HLD - Pacer - GERD - ESRD - Depression - CKD - T2DM - CHF - Gastroparesis Home Medications: ASA 81mg daily Insulin NPH (70U BID) Pioglitazone 30mg daily Sertraline 100mg daily Amiodarone 200mg daily Sevelamer 1600mg TID Apixaban 5mg BID Atorvastatin 40mg daily Gabapentin 100mg qHS Midodrine 10mg with dialysis Omeprazole 40mg daily Metoclopramide 10mg QID Furosemide 40mg BID Isosorbide Mononitrate 20mg q12h Metoprolol 25mg Daily Incidental Findings: - Cholelithiasis - Indeterminate right adrenal nodule Plan: Neurological: # Acute post traumatic pain # Hx of Depression - Analgesia - Acetaminophen 1G Q6hrs sched - Oxycodone 5/10mg Q4hrs PRN - Lidocaine - 2 patch Q24h - Dilaudid 0.5 mg IV Q2H PRN for Physical Therapy will fall off the MAR today - Robaxin 750mg Q6H - Psych consulted - Increase Zoloft to 125 mg PO daily - Continue Gabapentin 100 mg at bedtime - Melatonin 3 mg PO at 1900 for sleep - Labs: TSH, Vitamin B12, Vitamin D, Mg2+, HIV/Hep B/Hep C/UA/urine tox - B12 960 Cardiovascular: # Hx of HTN, HLD, CHF, Pacer, A-fib - continue home Apixaban 5 mg BID PO for hx of atrial fibrillation - hold home ASA (per patient only taken for general prophylaxis) - Continue TELE monitoring - Continue home Amio, Lipitor - D/C scheduled midodrine - Continue midodrine 10 mg PRN before dialysis - Last echo 01/05, LVEF 60%. Repeat echo ordered, pending. - EP consulted due to prolonged qTc -Underlying RBBB - qTc is accepatable range -Obatin LFTs -Recommend repeating TFTs once acute illness as resolved -Okay to continue amiodarone Respiratory: # Hx of ARASH - Saturating well on 2L NC, wean as able (pt not on home O2) - Maintain SpO2 > 92% - Continue pulse ox monitoring - Encourage incentive spirometry - Requiring BiPAP at bedtime - Has home CPAP prescribed, noncompliant GI/Diet: # Hx of GERD # Hx of Gastroparesis - Diet: Regular; Strict Low K, 40 mEq - tolerating soft foods better - Nutrition consulted -Start oral supplements. Boost Breeze with breakfast - K+ free. Novasource Renal BID - low K+ -Encourage small frequent meals - aim for BG <180. Consider downgrading to FLD if n/v persists with solid food intake -If persistent n/v may need evaluate need for post-pyloric corpak placement. Novasource Renal. Initiate at 10 mL/hr and advance by 10 mL/hr q 6 hours to a goal rate of 50 mL/hr. Liquacel 1 packet TID. Will provide: 1080 mL TF, 2160 kcal, 98 g protein, 774 mL free water + 300 kcal, 48 g protein from liquacel -History of folate deficiency and low B12 - recheck. Check vitamin D 25 OH - If continues to have minimal PO intake over the weekend, plan for post-pyloric Corpak on Saturday (May 11) - Start home Reglan (qTc appropriate in setting of RBBB per EP) - Start erythromycin 500 mg PO BID (qTc appropriate in setting of RBBB per EP) - Continue Tigan 100 mg IM Q12h PRN for nausea - Diazepam 2 mg IV Q8H PRN - second line for nausea (anecdotal evidence of efficacy for treating nausea in intestinal transplant patients) - Bowel reg: Senna 8.6 mg PO - discontinue - GI ppx: pantoprazole (takes omeprazole at home) Renal/Electrolytes: # Hx of ESRD - Nephro consulted: - HD 05/08 AND 05/09 tolerated well - MWF HD - Continue midodrine prior to HD - Renal MV and Renal diet - BMP/Mg/P daily - Replace electrolytes as indicated - Maintain Mg >2, K >4 - Measure strict I AND O - Continue home Renvela Infectious Disease: # no acute issues - Monitor temperature and WBC for signs of infection Hematology: # Hemorrhagic shock - 2U PRBCs and albumin yesterday - T AND S for tomorrow a.m. 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 Plan to restart on discharge. Musculoskeletal: # Pelvic Fx's # Right distal femur fx # Left Scapula Fx # S/p OR 05/02 - Progressive mobility - Ortho consulted, following peripherally - NWB BLE - Pain control: recommend multimodal -PT/OT consult - DVT ppx: eliquis per primary -FU with Dr. Chu in 2 weeks at [facility] -Orthopaedics will continue to follow peripherally - PT/OT - Recommend further therapy services in a Nursing Home Setting once medically cleared - Will continue to follow patient while in hospital as appropriate. - PMR Consulted - Ortho spine (05/01): - No acute spine interventions indicated Prophylaxis: - SCDs bilaterally - On therapeutic anticoagulation via home Eliquis - Protonix Follow Up: - PCP: No primary care provider on file. - [facility] - Endocrine: pending course LDA/Restraints: - PIV X 2 - L femoral A-line - remove today - RUE AVF Code Status: - Full Code Disposition: - Transfer to trauma floor today - LTACH vs SNF Patient seen and evaluated with Attending Surgeon Dr. Giron. Please see attending attestation for final plan/recommendations. Mima Narayan MD BASIC METABOLIC PANEL Collected: 2023 2:49 AM Status: F Source: THE [facility] SYSTEM TYPE CODE TESTS RESULT OUT OF RANGE REFERENCE UNITS LAB GLU GLU 214 High 74-109 mg/dL LAB NA3 NA 134 Low 136-145 mmol/L LAB POT K 4.4 3.5-5.0 mmol/L LAB CO2 CO2 25 21-31 mmol/L LAB CHLOR CL 100 98-107 mmol/L LAB BUN BUN 32 High 7-25 mg/dL LAB CREAT CREAT 3.60 High 0.70-1.30 mg/dL LAB CA CA 7.7 Low 8.6-10.3 mg/dL LAB ANION GAP ANION GAP 13 10-20 LAB eGFR ESTIMATED GFR (CKD-EPI) 19 Low >=60 mL/min/1 .73sqm Result Comment: 2020 CKD EPI Equation using Creatinine without Race Comment: Estimated glomerular filtration rate (eGFR) is calculated without a race coefficient. Values should be interpreted in the context of the patient's full clinical presentation. Reference: 1. Christophe C, Sagrario M, Gena YUAN, et al.. A Unifying Approach for GFR Estimation: Recommendations of the NKF-ASN Task Force on Reassessing the Inclusion of Race in Diagnosing Kidney Disease. [place] Journal of Kidney Diseases 2021;79(2):268- 88.e1. 2. N Engl J Med 1 Vol. 385 Issue 19 Pages 2733-2013 Performed By: #### CH8, MG, PHOS, HEPATIC #### [facility] [address] [place] [address], MAGNESIUM Collected: 2:49 AM Status: F Source: [facility] SYSTEM TYPE CODE TESTS RESULT OUT OF RANGE REFERENCE UNITS LAB mag MG 2.1 1.9-2.7 mg/dL Performed By: #### CH8, MG, PHOS, HEPATIC #### [facility] [address] [place] [address], PHOSPHORUS Collected: 4 2:49 AM Status: F Source: [facility] SYSTEM TYPE CODE TESTS RESULT OUT OF RANGE REFERENCE UNITS LAB PHOS PHOS 3.6 2.5-5.0 mg/dL Performed By: #### CH8, MG, PHOS, HEPATIC #### [facility] [address] [place] [address], HEPATIC FUNCTION PANEL Collected: 05/10 2:49 AM Status: F Source: [facility] SYSTEM TYPE CODE TESTS RESULT OUT OF RANGE REFERENCE UNITS LAB ALB ALB 2.6 Low 3.5-5.7 g/dL LAB DBILI DBIL 0.27 High 0.03-0.18 mg/dL LAB TBILI TBIL 0.7 0.3-1.0 mg/dL LAB ALKPHOS ALK 65 34-104 IU/L LAB ALT2 ALT 5 Low 7-52 IU/L LAB AST2 AST 63 High 13-39 IU/L LAB tp TP 5.1 Low 6.0-8.3 g/dL Performed By: #### CH8, MG, PHOS, HEPATIC #### [facility] [address] [place] [address], COMPLETE BLOOD COUNT Collected: 024 2:49 AM Status: F [facility]: [facility] TYPE CODE TESTS RESULT OUT OF RANGE REFERENCE UNITS LAB WBC WBC 8.5 4.5-11.5 K/uL LAB RBC RBC 2.80 Low 4.50-5.90 M/uL LAB HGB HGB 8.4 Low 13.9-16.3 g/dL LAB HCT HCT 26.1 Low 41.0-53.0 % LAB MCV MCV 94 80-100 fL LAB MCH MCH 30.2 26.0-34.0 pg LAB MCHC MCHC 32.3 32.0-35.9 g/dL LAB PLT PLT 178 150-400 K/uL LAB RDW RDW-CV 20.2 High 11.5-14.5 % LAB MPV MPV 8.8 7.5-11.2 fL Performed By: #### CBC #### [facility] [address] [place] [address], GLUCOSE, FINGERSTICK-IN OFFICE Collecte d: 05/09/2024 9:30 PM Status: F [facility]: [facility] TYPE CODE TESTS RESULT OUT OF RANGE REFERENCE UNITS LAB Mongolian GLUCOSE, POC 213 High 74-109 mg/dL Performed By: #### [id number] ### # NURSING GLUCOSE PROGRAM [address] [place] [address], GLUCOSE, FINGERSTICK-IN OFFICE Collecte d: 05/09/2024 5:48 PM Status: F [facility]: [facility] TYPE CODE TESTS RESULT OUT OF RANGE REFERENCE UNITS LAB Mong[place]ian GLUCOSE, POC 230 High 74-109 mg/dL Performed By: #### [id number] ### # NURSING GLUCOSE PROGRAM [address] [place], [address] PROGRESS NOTES Observed: 05/09/2024 3:23 PM Status: COMPLETED [facility] Follow-[facility] Note Amado Tran 59 year old [phone] lbs MRN/Room: [address] [place] [address]/[facility] Subjective: HD today tolerated Objective: Meds: levothyroxine 50 mcg Before Breakfast midodrine 10 mg Every 8 hours melatonin 3 mg Daily Melatonin sertraline 125 mg Daily folic acid 1 mg Daily [START ON 05/11/2024] folic acid 1 mg Daily vitamin D2 ergocalciferol 50,000 Units Q7 Days cholecalciferol 1,000 Units Daily Normal consistency 2x Daily with Meals Normal consistency Daily with breakfast Apixaban 5 mg 2x Daily Sonali-Riri RX 1 Tablet Daily insulin regular 4-14 Units 4x Daily AC AND HS methocarbamol 750 mg Every 6 hours epoetin antione-epbx 10,000 Units Q M, W AND F acetaminophen 1,000 mg q6h nystatin 2x Daily albuterol 2.5 mg QID RT sevelamer carbonate 800 mg 3x Daily with Meals amiodarone 200 mg Daily atorvastatin 40 mg At Bedtime gabapentin 100 mg At Bedtime pantoprazole 40 mg Daily 30 min before breakfast lidocaine 2 Patch Every 24 hours senna 8.6 mg At Bedtime HYDROmorphone HCl PF 0.2 mg Q4H PRN diazePAM 2 mg Q8H PRN trimethobenzamide 100 mg Q12H PRN midodrine 10 mg Daily PRN albuterol 2.5 mg Q4H PRN oxyCODONE 10 mg Q4H PRN oxyCODONE 5 mg Q4H PRN dextrose iv for hypoglycemia orderable 125 mL PRN Or glucagon 1 mg PRN Or dextrose 15 g of glucose PRN Or dextrose 30 g of glucose PRN Vital sign ranges over the past 24 hours (retrieved 05/09/2024 at 3:23 PM): Tmax (24 hours): 99.5 ???F (37.5 ???C) Pulse Av.6 Min: 60 Max: 78 Systolic (24hrs), Av , Min:88 , Max:119 Diastolic (24hrs), Av, Min:30, Max:64 MAP (mmHg) Av.7 mmHg Min: 52 mmHg Max: 73 mmHg Resp Av.3 Min: 12 Max: 26 SpO2 Av.7 % Min: 87 % Max: 100 % Patient Vitals for the past 24 hrs: BP Temp Temp src Pulse Resp SpO2 O2 Device O2 Flow Rate (l/min) 05/09/24 1400 -- -- -- 78 18 97 % -- -- 05/09/24 1330 -- -- -- 66 16 98 % -- -- 05/09/24 1200 -- 98.9 ???F (37.2 ???C) Oral 66 15 100 % Nasal cannula 1 05/09/24 1115 -- -- -- 65 14 99 % -- -- 05/09/24 1030 -- -- -- 60 17 99 % -- -- 05/09/24 1015 -- -- -- 61 20 -- Nasal cannula 1 05/09/24 1011 119/44 97.9 ???F (36.6 ???C) -- 61 17 99 % -- -- 05/09/24 1000 91/49 -- -- 65 20 99 % -- -- 05/09/24 0908 -- -- -- -- -- -- Nasal cannula 1 05/09/24 0900 -- -- -- -- -- 87 % Room air -- 05/09/24 0813 -- -- -- -- -- 99 % Nasal cannula 1 05/09/24 0800 91/42 98 ???F (36.7 ???C) Oral 62 16 100 % Nasal cannula 2 05/09/24 0700 103/64 -- -- 62 16 98 % -- -- 05/09/24 0600 96/40 -- -- 62 16 98 % -- -- 05/09/24 0500 96/41 -- -- 63 16 98 % -- -- 05/09/24 0400 112/51 98.2 ???F (36.8 ???C) Axillary 65 19 99 % Nasal cannula 2 05/09/24 0300 102/42 -- -- 67 19 100 % -- -- 05/09/24 0254 100/32 98 ???F (36.7 ???C) Axillary 67 19 99 % Nasal cannula 2 05/09/24 0253 100/32 -- -- 68 17 97 % -- -- 05/09/24 0239 94/30 98.5 ???F (36.9 ???C) -- 66 17 99 % Nasal cannula 2 05/09/24 0100 88/41 -- -- 68 16 91 % -- -- 05/09/24 0000 -- 99.5 ???F (37.5 ???C) Axillary 70 18 96 % Nasal cannula 2 05/08/242233 -- -- -- 72 12 98 % -- -- 05/08/242029 -- -- -- 75 26 97 % -- -- 05/08/24 2000 -- 99.4 ???F (37.4 ???C) Oral 76 18 99 % Nasal cannula 2 05/08/24 1800 -- -- -- 74 16 97 % -- -- 05/08/24 1700 -- -- -- 74 16 97 % -- -- 05/08/24 1615 -- -- -- 72 18 99 % Nasal cannula 2 05/08/24 1600 -- 97.7 ???F (36.5 ???C) Oral 73 18 99 % Nasal cannula 2 Intake/Output Summary (Last 24 hours) at 05/09/2024 1523 Last data filed at 05/09/2024 1500 Gross per 24 hour Intake 1165 ml Output -- Net 1165 ml General appearance: no distress Eyes: non-icteric Skin: no apparent rash Heart: s1s2 regular Lungs: reduced breathing sounds no wheezing/crackles Abdomen: soft, nt/nd Extremities: +1 LL edema bilat Caceres Neuro: No FND,no asterixis Access RUE AVG with bruit and thrill. Echymosis. Blood Labs: Arterial Blood Gases None CBC/PT/INR 05/09/2024 05/09/2024 05/08/2024 05/07/2024 05/06/2024 1:11 PM 1:17 AM 4:11 AM 4:20 AM 6:32 PM WBC 8.6 9.4 9.2 7.1 8.1 RBC 2.89 2.20 2.35 2.40 2.61 Hgb 8.8 6.9 7.6 7.4 8.3 Hct 26.9 20.6 22.5 23.0 25.4 MCV 93 97 96 96 97 RDW 19.4 17.1 16.3 16.1 16.6 Plt 148 151 155 116 127 Basic Metabolic Panel 05/09/2024 05/08/2024 05/07/2024 1:17 AM 4:11 AM 4:20 AM Na 135 131 132 K 4.7 4.8 4.6 Cl 99 93 94 CO2 24 25 24 Gap 17 18 19 Glu 124 112 99 BUN 35 63 55 Cr 4.57 7.48 6.91 Ca 7.5 7.7 7.8 Mg 2.1 2.5 2.2 PO4 4.3 6.5 6.7 ASSESSMENT: Amado Tran is a 59 year old with PMHx of Pacemaker, ARASH, HLD, GERD, Depression, ESRD (HD MWF, RUE AV Fistula), CKD, HTN, T2DM, Systolic HF, and atrial fibrillation on Eliquis presenting to the ED after falling into a 6 foot hole. Multiple fractures. ESRD on HD MWF - Access: RUE AVG - electrolytes: hyponatremia from impaired free water deficit - anemia: from OR and CKD, hgb below goal - CKDMBD: phos elevated, calcium low albumin unknown. - for Midodrine before HD - EPO with HD. #Ortho surgery 05/02 #Needs spine surgery? RECOMMENDATIONS: - HD 05/08 AND 05/09 tolerated well. - MWF HD - Continue midodrine prior to HD. - Renal MV and Renal diet. Ayleen Kurtz MD Nephrology Fellow Daytime / Weekend Renal Pager [phone] After 7 pm Emergencies Pager [phone] Attending/Teaching Physician Note: I saw and evaluated the patient, I personally obtained kirby and critical portions of the history and physical exam. I reviewed the fellow's documentation and discussed the patient with the fellow. I agree with the fellow's medical decision making as documented in the fellow's note. Additional findings, impression, and plan are as follows: Hemodialysis note Pt seen and evaluated during hemodialysis No specific complaints Vital sign ranges over the past 24 hours (retrieved 05/09/2024 at 10:27 PM): Tmax (24 hours): 99.5 ???F (37.5 ???C) Pulse Av.5 Min: 58 Max: 78 Systolic (24hrs), Av , Min:88 , Max:123 Diastolic (24hrs), Av, Min:30, Max:74 MAP (mmHg) Av.1 mmHg Min: 52 mmHg Max: 89 mmHg Resp Av.8 Min: 12 Max: 20 SpO2 Av.7 % Min: 87 % Max: 100 % Nad S1s2 Clear anteriorly Trace edema ESKD admitted w/ multiple fractures s/p fall - no UF today, given low BPs over last 24 hours - con't midodrine for BP support before HD - next HD would tentatively be Saturday Alan Miranda MD PROGRESS NOTES Observed: 05/09/2024 2:03 PM Status: COMPLETED Source: [facility] post note Tx hours 3 Tolerance of tx well, no issues with VS, BP maintained, pt received Midodrine pre treatment Access functioning well, right lower arm avg Total UF 0 Post VS 37.2-66-18 139/59 Report to Ron KATHLEEN COMPLETE BLOOD COUNT Collected: 024 1:11 PM Status: F Source: [facility] TYPE CODE TESTS RESULT OUT OF RANGE REFERENCE UNITS LAB WBC WBC 8.6 4.5-11.5 K/uL LAB RBC RBC 2.89 Low 4.50-5.90 M/uL LAB HGB HGB 8.8 Low 13.9-16.3 g/dL LAB HCT HCT 26.9 Low 41.0-53.0 % LAB MCV MCV 93 80-100 fL LAB MCH MCH 30.5 26.0-34.0 pg LAB MCHC MCHC 32.7 32.0-35.9 g/dL LAB PLT PLT 148 Low 150-400 K/uL LAB RDW RDW-CV 19.4 High 11.5-14.5 % LAB MPV MPV 9.0 7.5-11.2 fL Performed By: #### CBC #### [facility] [address] [place], [address] CONSULTS Observed: 05/09/2024 12:51 PM Status: COMPLETED Source: [facility] SYSTEM == New Patient Consult Cardiology consult 05/09/2024 12:52 PM Name: Amado Tran Room: [facility] : 1965 male 59 year old Admit Date: 04/30/2024 Length of stay: 9 day(s) Consultation Requested by: Farrah Asencio MD PCP: No primary care provider on file. Reason for Consultation Afib on Eliquis and Amiodarone outpatient, now with prolonged QT and hypothyroidism History of Present Illness Amado Tran is a 59 year old y/o male with PMH of Hyperparathyroidism, Pacemaker, ARASH, CAROL, HLD, GERD, Depression, ESRD (HD MWF, RUE AV Fistula), CKD, HTN, T2DM, Systolic HF, and atrial fibrillation on Eliquis who presented to via [facility] as an inter facility transfer from [facility] s/p Fall multiple traumatic injuries including Grade 1 splenic injury, multiple bilateral rib fractures, multiple pelvic fractures resulting from a 6 foot fall into auto mechanical bay. Course complicated by hypotension requiring multiple blood products including PRBC x3, whole blood x1, FFP x1, as well as levophed gtt. Patient is known to have paroxysmal atrial fibrillation -[id number] = 4 on amiodarone and Toprol for rate control and Eliquis. Rates during this admission has been controlled. Patient denies shortness of breath, orthopnea, dyspnea on exertion, chest pain, and chest pressure. Review of Systems Unless indicated below, all other systems have been reviewd and are negative for complaint Cardiac Meds Current Cardiac Medications Direct Factor Xa Inhibitors Instructions Apixaban (ELIQUIS) tablet 5 mg, Oral, 2 TIMES DAILY Antiarrhythmics Type III Instructions amiodarone (CORDARONE) tablet 200 mg, Oral, DAILY HMG CoA Reductase Inhibitors Instructions atorvastatin (LIPITOR) tablet 40 mg, Oral, AT BEDTIME Past Medical History No past medical history on file. Past Surgical History Past Surgical History: Procedure Laterality Date REDUCTION, CLOSED, PERCUTANEOUS PINNING, PELVIS Bilateral 05/02/2024 Procedure: REDUCTION, CLOSED, PERCUTANEOUS PINNING, PELVIS; Surgeon: Kayode Biggs MD; Location: PERIOPERATIVE SERVICES; Service: Orthopaedics REDUCTION, OPEN, FEMUR, INTRAMEDULLARY GENTRY Right 05/02/2024 Procedure: REDUCTION, OPEN, FEMUR, INTRAMEDULLARY GENTRY; Surgeon: Kayode Biggs MD; Location: PERIOPERATIVE SERVICES; Service: Orthopaedics Family History No family history on file. Social History Social History Tobacco Use Smoking status: Never Smokeless tobacco: Never Vaping Use Vaping status: Never Used Allergies Allergies Allergen Reactions Penicillins Faint Feeling Pt states when he was approx 5 years old he passed out after taking PCN Medications Current hospital meds: levothyroxine 50 mcg Before Breakfast midodrine 10 mg Every 8 hours melatonin 3 mg Daily Melatonin sertraline 125 mg Daily folic acid 1 mg Daily [START ON 05/11/2024] folic acid 1 mg Daily vitamin D2 ergocalciferol 50,000 Units Q7 Days cholecalciferol 1,000 Units Daily Normal consistency 2x Daily with Meals Normal consistency Daily with breakfast Apixaban 5 mg 2x Daily Sonali-Riri RX 1 Tablet Daily insulin regular 4-14 Units 4x Daily AC AND HS methocarbamol 750 mg Every 6 hours epoetin antione-epbx 10,000 Units Q M, W AND F acetaminophen 1,000 mg q6h nystatin 2x Daily albuterol 2.5 mg QID RT sevelamer carbonate 800 mg 3x Daily with Meals amiodarone 200 mg Daily atorvastatin 40 mg At Bedtime gabapentin 100 mg At Bedtime pantoprazole 40 mg Daily 30 min before breakfast lidocaine 2 Patch Every 24 hours senna 8.6 mg At Bedtime Current IV meds: Current prn meds: HYDROmorphone HCl PF 0.2 mg Q4H PRN diazePAM 2 mg Q8H PRN trimethobenzamide 100 mg Q12H PRN midodrine 10 mg Daily PRN albuterol 2.5 mg Q4H PRN oxyCODONE 10 mg Q4H PRN oxyCODONE 5 mg Q4H PRN dextrose iv for hypoglycemia orderable 125 mL PRN Or glucagon 1 mg PRN Or dextrose 15 g of glucose PRN Or dextrose 30 g of glucose PRN Prior to Admission medications Not on File Vital signs and I/Os Patient Vitals for the past 24 hrs: BP Temp Temp src Pulse Resp SpO2 O2 Device O2 Flow Rate (l/min) 05/09/24 1200 -- 98.9 ???F (37.2 ???C) Oral 66 15 100 % Nasal cannula 1 05/09/24 1115 -- -- -- 65 14 99 % -- -- 05/09/24 1030 -- -- -- 60 17 99 % -- -- 05/09/24 1015 -- -- -- 61 20 -- Nasal cannula 1 05/09/24 1011 119/44 97.9 ???F (36.6 ???C) -- 61 17 99 % -- -- 05/09/24 1000 91/49 -- -- 65 20 99 % -- -- 05/09/24 0908 -- -- -- -- -- -- Nasal cannula 1 05/09/24 0900 -- -- -- -- -- 87 % Room air -- 05/09/24 0813 -- -- -- -- -- 99 % Nasal cannula 1 05/09/24 0800 91/42 98 ???F (36.7 ???C) Oral 62 16 100 % Nasal cannula 2 05/09/24 0700 103/64 -- -- 62 16 98 % -- -- 05/09/24 0600 96/40 -- -- 62 16 98 % -- -- 05/09/24 0500 96/41 -- -- 63 16 98 % -- -- 05/09/24 0400 112/51 98.2 ???F (36.8 ???C) Axillary 65 19 99 % Nasal cannula 2 05/09/24 0300 102/42 -- -- 67 19 100 % -- -- 05/09/24 0254 100/32 98 ???F (36.7 ???C) Axillary 67 19 99 % Nasal cannula 2 05/09/24 0253 100/32 -- -- 68 17 97 % -- -- 05/09/24 0239 94/30 98.5 ???F (36.9 ???C) -- 66 17 99 % Nasal cannula 2 05/09/24 0100 88/41 -- -- 68 16 91 % -- -- 05/09/24 0000 -- 99.5 ???F (37.5 ???C) Axillary 70 18 96 % Nasal cannula 2 05/08/24 2234 -- -- -- 72 12 98 % -- -- 05/08/242029 -- -- -- 75 26 97 % -- -- 05/08/24 2000 -- 99.4 ???F (37.4 ???C) Oral 76 18 99 % Nasal cannula 2 05/08/24 1800 -- -- -- 74 16 97 % -- -- 05/08/24 1700 -- -- -- 74 16 97 % -- -- 05/08/24 1615 -- -- -- 72 18 99 % Nasal cannula 2 05/08/24 1600 -- 97.7 ???F (36.5 ???C) Oral 73 18 99 % Nasal cannula 2 05/08/24 1500 -- -- -- 77 19 98 % -- -- 05/08/24 1400 -- -- -- 77 22 97 % -- -- 05/08/24 1300 -- -- -- 82 21 99 % -- -- Intake/Output Summary (Last 24 hours) at 05/09/2024 1252 Last data filed at 05/09/2024 1115 Gross per 24 hour Intake 925 ml Output -- Net 925 ml BP 119/44 Pulse 66 Temp 98.9 ???F (37.2 ???C) (Oral) Resp 15 Ht 5' 9 (1.753 m) Wt (!) 311 lb 4.6 oz (141.2 kg) SpO2 100% PF 100 L/min BMI 45.97 kg/m??? General: In no acute distress. Neuro: Alert, oriented, conversational. No focal deficits. HEENT: PERRLA, EOMs intact. Mucous membranes moist and pink. Cardiovascular: S1, S2, No rubs, murmurs or gallops. Pulmonary: clear to auscultation Abdominal: Soft, non-tender, non-distended. Extremities: No lower extremity edema. Pulses intact and symmetrical. Skin: Warm, well perfused, no obvious wounds or rashes. Laboratory Tests CBC (last 3 years, up to 8 values) 05/09/2024 05/08/2024 05/07/2024 05/06/2024 05/06/2024 05/05/2024 05/04/2024 05/03/2024 1:17 AM 4:11 AM 4:20 AM 6:32 PM 4:42 AM 3:59 AM 1:45 AM 5:00 AM WBC 9.4 9.2 7.1 8.1 7.0 10.2 10.0 10.5 RBC 2.20 2.35 2.40 2.61 2.13 2.24 2.27 2.18 Hgb 6.9 7.6 7.4 8.3 6.7 7.1 7.2 6.9 Hct 20.6 22.5 23.0 25.4 20.5 21.2 21.2 20.3 MCV 97 96 96 97 97 95 94 93 RDW 17.1 16.3 16.1 16.6 16.7 16.8 17.0 17.2 Plt 151 155 116 127 108 111 89 72 WBC/Diff No lab values to display. BMP (last 3 years, up to 8 values) 05/09/2024 05/08/2024 05/07/2024 05/06/2024 05/05/2024 05/04/2024 05/04/2024 05/03/2024 1:17 AM 4:11 AM 4:20 AM 4:42 AM 3:59 AM 9:47 PM 1:45 AM 3:58 AM Na 135 131 132 132 128 130 130 132 K 4.7 4.8 4.6 4.4 5.2 5.3 5.1 5.3 Cl 99 93 94 95 91 92 95 96 CO2 24 25 24 25 25 24 23 24 Gap 17 18 19 16 17 19 17 17 Glu 124 112 99 95 90 148 184 246 BUN 35 63 55 44 79 74 61 43 Cr 4.57 7.48 6.91 5.69 8.72 8.31 7.69 6.81 Ca 7.5 7.7 7.8 7.7 7.8 7.7 7.8 8.1 eGFR 14 8 8 11 6 7 7 9 Creatinine clearance from Cockroft-Gault: 17 ml/min based on creatinine of 4.57 on 05/09/2024 using IBW 70.7 kg (actual weight 141.2 kg ignored) Estimated GFR: 14 on 05/09/2024 LFT's (last 3 years, up to 8 values) No lab values to display. Lipids (last 3 years, up to 8 values) No lab values to display. Arterial Blood Gases None PT/INR 05/01/2024 05/01/2024 04/30/2024 4:51 PM 10:10 AM 8:44 PM aPTT 29 -- -- INR -- 1.16 1.29 Cardiac labs No results found for: HSTRP , BNP No results found for: TROPONIN No results found for: BNP No results found for: HBA1C TSH (uIU/mL) Date Value 05/09/2024 7.124 (H) No results found for: LDL , A1C Wt Readings from Last 5 Encounters: 05/08/24 (!) 311 lb 4.6 oz (141.2 kg) Intake/Output Summary (Last 24 hours) at 05/09/2024 1252 Last data filed at 05/09/2024 1115 Gross per 24 hour Intake 925 ml Output -- Net 925 ml Net IO Since Admission: 8,017.75 mL [05/09/24 1252] Cardiac Tests ECG: Atrial fibrillation Right bundle branch block Telemetry findings reviewed: atrial fibrillation Rates - 60s-70s No results found for: LVEF Echo (date and result): Echocardiogram date: Not Found Hx EF 40-45 % per echo, 55% per nuclear in 2017 - mild CAD per cath. EF normalized on Echo from 2019 ECHO 08/31/2019: EF 55-60%, no RWMA, trace MR, trace TR Stress test (date and result): NA Cardiac catheterization (date and result): NA The ASCVD Risk score (Sirisha DK, et al., 2019) failed to calculate. Impression and Plan Active problems: Persistent Atrial Fibrillation [id number] = 4 RBBB Elevated TSH Recommendations: -Underlying RBBB- qTc is accepatable range -Obatin LFTs -Recommend repeating TFTs once acute illness as resolved. -Okay to continue amiodarone Olive Daniels MD Cardiovascular Fellow, PGY4 Department of Cardiovascular Diseases Heart and Vascular [facility] 05/09/2024 12:52 PM Teaching Physician Note: I discussed the case and reviewed the fellow's documentation. I agree with the resident's medical decision making as documented in the fellow's note. Reviewed ECGs personally. Wide RBBB at baseline contributing to the Prolonged QTC. Amiodarone is maintaining sinus rhythm. Continue for now. Monitor LFTs and TFTs Apixaban can be held if concern for bleeding with plan for resumption when stable. Yocasta Hogan MD GLUCOSE, FINGERSTICK-IN OFFICE Collecte d: 05/09/2024 11:56 AM Status: F Source: [facility] TYPE CODE TESTS RESULT OUT OF RANGE REFERENCE UNITS LAB Mongolian GLUCOSE, POC 111 High 74-109 mg/dL Performed By: #### [id number] ### # NURSING GLUCOSE PROGRAM [address] [place] [address], [id number] TREATMENT PLAN NOTE Observed: 05/09/2024 11:28 AM Status: ACTIVE Source: [facility] Brief Treatment plan: Full note to follow 59 year old male with PMH of ESRD on HD MWF, T2DM, HFrEF and atrial fibrillation on eliquis and amiodarone, secondary hyperparathyroidism who presented as a CAT 1 trauma as a transfer [facility] and was admitted to the TICU for multiple traumatic injuries including Grade 1 splenic injury, multiple bilateral rib fractures, multiple pelvic fractures resulting from a 6 foot fall into auto mechanical bay. Course complicated by hypotension requiring multiple blood products including PRBC x3, whole blood x1, FFP x1, as well as levophed gtt. Amiodarone 200 mg daily 05/01/24- home medication continued T2DM - On Ozempic On LT4-50 mcg daily started from 05/08/2024 BP 119/44 Pulse 65 Temp 97.9 ???F (36.6 ???C) Resp 14 Ht 5' 9 (1.753 m) Wt (!) 311 lb 4.6 oz (141.2 kg) SpO2 99% PF 100 L/min BMI 45.97 kg/m??? Labs TSH: 7.124 TSH- 5.037 04/21/24 Ft4- 0.83 Recommendations: Suspect Subclinical Hypothyroidism - Continue Synthroid 50 mcg daily iso TSH elevated more than 7 - Check for TPO to r/o Slim's thyroiditis vs amiodarone induced thyroiditis - Recommend repeat test as OP off of multivitamins/biotin atleast for 3-4 days Plan of care discussed with attending Dr. Shimon Castelan MD Endocrinology Fellow Service pager: [phone] CORTISOL RANDOM Collected: 9:48 AM Status: F Source: [facility] SYSTEM TYPE CODE TESTS RESULT OUT OF RANGE REFERENCE UNITS LAB DG CORTISOL, SERUM 15.8 ug/dL Performed By: #### CRR #### [facility] [address] [place] [address], RED BLOOD CELL COMPONENT Collected: 9:23 AM Status: F Source: [facility] TYPE CODE TESTS RESULT OUT OF RANGE REFERENCE UNITS LAB 99 BB ORDER ITEM Product status info to follow Performed By: #### RBO #### [facility] [address] [place] [address], RED BLOOD CELL UNIT STATUS Collected: 05/09/2024 9:23 AM Status: C Source: THE [facility] TYPE CODE TESTS RESULT OUT OF RANGE REFERENCE UNITS LAB XM CROSSMATCH INTERPRETATION Compatible (E) LAB UT BLOOD PRODUCT UN IT TYPE 6200 Result Comment: A Pos LAB UN BLOOD PRODUCT UN IT INFO [id number] LAB ST BLOOD PRODUCT STATUS Transfused LAB PI BLOOD PRODUCT DESCRIPTION Red Blood Cells LAB SPC BLOOD PRODUCT CODE [id number] Performed By: #### RBU #### [facility] [address] [place] [address], GLUCOSE, FINGERSTICK-IN OFFICE Collecte d: 05/09/2024 8:13 AM Status: F Source: THE [facility] TYPE CODE TESTS RESULT OUT OF RANGE REFERENCE UNITS LAB [place] GLUCOSE, POC 126 High 74-109 mg/dL Performed By: #### [id number] ### # NURSING GLUCOSE PROGRAM [address] [place] [address], [id number] PROGRESS NOTES Observed: 05/09/2024 7:51 AM Status: COMPLETED Source: THE [facility] SYSTEM Attestation signed by Guillermo Giron MD at 05/10/2024 10:57 AM I have personally seen and examined the patient with the team and nursing staff at the patient's bedside. I have reviewed recent data and reports. I have also reviewed lab values, imaging, and current medications profile. I discussed my findings with the team. I reviewed the full note by the resident with the detailed findings, and I agree with the assessment, overall impression, and plan of care. We have also updated the patient or any available family as well as other services with our care plan. Total Critical Care Time 35 minutes Guillermo Giron MD DEPARTMENT OF SURGERY DIVISION OF TRAUMA, BURN, AND CRITICAL CARE TRAUMA INTENSIVE CARE UNIT (TICU) DAILY PROGRESS NOTE Patient: Amado Tran, 59 year old, male : 1965 Admit Date: 04/30/2024 Room: [place] [address] Today's Date: 05/09/2024, Length of stay: 9 day(s) Code Status: Full Code Height: 5' 9 Weight: 141.2 kg BMI: 45.97 SURGICAL ICU - STAFF NOTE Patient seen and examined on 05/09/2024 Interval History/Events: Background: Amado Tran is a 59 year old y/o male with PMH of Hyperparathyroidism, Pacemaker, ARASH, CAROL, HLD, GERD, Depression, ESRD (HD MWF, RUE AV Fistula), CKD, HTN, T2DM, Systolic HF, and atrial fibrillation on Eliquis who presented to via [facility] as an inter facility transfer from [facility] s/p Fall. Per reports Pt was at a [employer] oil change location when he exited his vehicle to assist the senior quality control technician in opening his vehicle door, when he stepped behind his vehicle he accidentally fell through the floor opening aprox 6ft. Pt. Reports falling straight down, negative LOC, negative head strike. Pt was unable to get up under his own strength, EMS was called and Pt was extricated via EMS/FD, immobilized and transported to [facility] ED. Imaging at OSH demonstrated a Grade 1 splenic injury, multiple bilateral rib fractures, and multiple pelvic fractures. Received K-centra, as well as PRBC X 2 and Calcium Gluc. [facility] was requested for transport to for orthopedics and trauma evaluations. EN route Pt received an additional unit of whole blood. On arrival to pt alert and oriented x 3, w/ GCS-15. On 4LNC, Labile blood pressures and received an additional PRBC X 1, FFP X 1 in ED. Pt was COTE scanned again here at [facility] given the absence of contrast at OSH. Pt. Had CVC and A-line placed in ED and was admitted to TICU for respiratory and hemodynamic monitoring. Hospital Course: 04/30: Admitted to TICU s/p fall with B/L rib fxs, Pelvic fx's, and questionable Grade 1 splenic injury s/p fall at [facility] location. 05/01: Titrated on levophed. CBC trended. Seen by EP for pacer, no interrogation to be performed 2/2 EOL device. Upright XR done. OR deferred. Dialyzed. 05/02: Went to OR with ortho. Pressor requirements improved. 05/04: No HD, bumped due to renal emergency. Plan for 05/05. Weaning levophed as able. 05/05: Underwent iHD. Continue to wean levophed to goal of SBP > 100. N/V after breakfast, tigan x 1 with improvement. 05/06: Levophed weaned off overnight, continues on Midodrine. Hgb 6.7 today AM, repeat Type and Screen ordered with 1U RBCs. Recurrent emesis 30min after breakfast 05/07: Most recent EKG Qtc 567, will repeat. Tolerating minimal PO intake, no episodes of emesis or nausea. Discussed possibility of Corpak placement with patient if N/V and intolerance of PO intake continues. 05/08: Consult psych and EP. Encourage PO intake, plan for post-pyloric Corpak if no improvement by Saturday. HD today. One-Liner: Pt is a 59 year old male with PMH of ESRD on HD MWF, T2DM, HFrEF and atrial fibrillation on eliquis who presented as a CAT 1 trauma as a transfer from [facility] and was admitted to the TICU for multiple traumatic injuries including Grade 1 splenic injury, multiple bilateral rib fractures, multiple pelvic fractures resulting from a 6 foot fall into auto mechanical bay. Course complicated by hypotension requiring multiple blood products including PRBC x3, whole blood x1, FFP x1, as well as levophed gtt. Acute overnight events: - BP 70s/40 intermittently: given 500 albumin w/ minimal improvement, increased midodrine to 10 mg Q8H + Midodrine 2.5 mg x 1 w/ improvement - Hgb 6.9 - given 1U PRBC - HD today, needs PRN midodrine prior to HD Vitals AND I/Os: 24 Hour Vitals Range: Vital sign ranges over the past 24 hours (retrieved 05/09/2024 at 7:56 AM): Tmax (24 hours): 99.5 ???F (37.5 ???C) Pulse Av.8 Min: 62 Max: 83 Systolic (24hrs), Av , Min:88 , Max:112 Diastolic (24hrs), Av, Min:30, Max:64 MAP (mmHg) Av.2 mmHg Min: 52 mmHg Max: 73 mmHg Resp Av.5 Min: 12 Max: 26 SpO2 Av.3 % Min: 91 % Max: 100 % Afebrile, HR 60s-70s, BP 80-100s/20-30s, saturating well on BiPAP, NC 2L. Desaturates to mid to high 80s on room air while asleep. Vital Signs: Patient Vitals for the past 24 hrs: BP Temp Temp src Pulse Resp SpO2 O2 Device O2 Flow Rate (l/min) 05/09/24 0700 103/64 -- -- 62 16 98 % -- -- 05/09/24 0600 96/40 -- -- 62 16 98 % -- -- 05/09/24 0500 96/41 -- -- 63 16 98 % -- -- 05/09/24 0400 112/51 98.2 ???F (36.8 ???C) Axillary 65 19 99 % Nasal cannula 2 05/09/24 0300 102/42 -- -- 67 19 100 % -- -- 05/09/24 0254 100/32 98 ???F (36.7 ???C) Axillary 67 19 99 % Nasal cannula 2 05/09/24 0253 100/32 -- -- 68 17 97 % -- -- 05/09/24 0239 94/30 98.5 ???F (36.9 ???C) -- 66 17 99 % Nasal cannula 2 05/09/24 0100 88/41 -- -- 68 16 91 % -- -- 05/09/24 0000 -- 99.5 ???F (37.5 ???C) Axillary 70 18 96 % Nasal cannula 2 05/08/24 2234 -- -- -- 72 12 98 % -- -- 05/08/242029 -- -- -- 75 26 97 % -- -- 05/08/241999 -- 99.4 ???F (37.4 ???C) Oral 76 18 99 % Nasal cannula 2 05/08/24 1800 -- -- -- 74 16 97 % -- -- 05/08/24 1700 -- -- -- 74 16 97 % -- -- 05/08/24 1615 -- -- -- 72 18 99 % Nasal cannula 2 05/08/24 1600 -- 97.7 ???F (36.5 ???C) Oral 73 18 99 % Nasal cannula 2 05/08/24 1500 -- -- -- 77 19 98 % -- -- 05/08/24 1400 -- -- -- 77 22 97 % -- -- 05/08/24 1300 -- -- -- 82 21 99 % -- -- 05/08/24 1230 -- 97.7 ???F (36.5 ???C) Axillary 80 17 -- Nasal cannula -- 05/08/24 1208 -- -- -- 83 17 100 % Nasal cannula 2 05/08/24 1200 -- -- -- 80 16 100 % Nasal cannula 2 05/08/24 1100 -- -- -- 73 15 100 % -- -- 05/08/24 1000 -- -- -- 77 14 100 % -- -- 05/08/24 0900 -- -- -- 74 15 99 % -- -- 05/08/24 0830 -- -- -- -- -- -- Nasal cannula 2 05/08/24 0823 -- -- -- 67 19 100 % Nasal cannula 2 05/08/24 0800 -- 98.2 ???F (36.8 ???C) Axillary 66 19 99 % BiPAP -- 24 Hour I AND Os: In: 750 (5.3 mL/kg) [P.O.:350] Out: -1500 (-10.6 mL/kg) Net: 2250 Weight: 141.2 kg PO: 350 mL - x 2 meal consumed Supplement: 400 mL UOP: Anuric (per patient) - Neg 1500 w/ dialysis BM: 05/08 x 4 Physical Exam: General: Awake. Lying in bed. In no acute distress. Neurological: AAOx4, GCS-15. Motor and sensory grossly intact. HEENT: PERRL, EOMI, no conjunctival injection or scleral icterus. Cardiac: Regular rate and rhythm. S1/S2 audible. No murmurs/rubs/gallops. Peripheral pulses palpable and symmetrical bilaterally. Pulmonary: Clear to auscultation bilaterally, diminished breath sounds to bases. Saturating well on 2L NC. No wheezing, rhonchi, or rales. Abdomen: Large, rounded, soft, non-tender, non-distended. Pelvic binder in place. Extremities: SCDs. RLE with multiple sutured incision sites over distal lateral and medial thigh, all well approximated without any erythema or drainage. Distal pulses are 2+ and intact bilaterally. Tenderness on palpation and manipulation of RLE. Compartments soft but tender. Otherwise warm, well perfused. Moves all extremities spontaneously. Lab Data: 9.4 6.9 / 151 / 20.6 CBC: 05/09/2024: 1:17 AM 135 99 35 / 124 4.7 24 4.57 BMP: 05/09/2024: 1:17 AM BMP: BMP (last 3 years, up to 8 values) 05/09/2024 05/08/2024 05/07/2024 05/06/2024 05/05/2024 05/04/2024 05/04/2024 05/03/2024 1:17 AM 4:11 AM 4:20 AM 4:42 AM 3:59 AM 9:47 PM 1:45 AM 3:58 AM Na 135 131 132 132 128 130 130 132 K 4.7 4.8 4.6 4.4 5.2 5.3 5.1 5.3 Cl 99 93 94 95 91 92 95 96 CO2 24 25 24 25 25 24 23 24 Gap 17 18 19 16 17 19 17 17 Glu 124 112 99 95 90 148 184 246 BUN 35 63 55 44 79 74 61 43 Cr 4.57 7.48 6.91 5.69 8.72 8.31 7.69 6.81 Ca 7.5 7.7 7.8 7.7 7.8 7.7 7.8 8.1 eGFR 14 8 8 11 6 7 7 9 CBC: CBC (last 3 years, up to 8 values) 05/09/2024 05/08/2024 05/07/2024 05/06/2024 05/06/2024 05/05/2024 05/04/2024 05/03/2024 1:17 AM 4:11 AM 4:20 AM 6:32 PM 4:42 AM 3:59 AM 1:45 AM 5:00 AM WBC 9.4 9.2 7.1 8.1 7.0 10.2 10.0 10.5 RBC 2.20 2.35 2.40 2.61 2.13 2.24 2.27 2.18 Hgb 6.9 7.6 7.4 8.3 6.7 7.1 7.2 6.9 Hct 20.6 22.5 23.0 25.4 20.5 21.2 21.2 20.3 MCV 97 96 96 97 97 95 94 93 RDW 17.1 16.3 16.1 16.6 16.7 16.8 17.0 17.2 Plt 151 155 116 127 108 111 89 72 PT/PTT/INR: PT/PTT/INR (last 3 years, up to 8 values) 05/01/2024 05/01/2024 04/30/2024 4:51 PM 10:10 AM 8:44 PM aPTT 29 -- -- INR -- 1.16 1.29 Type AND Screen: Type AND Screen (Last result in the past 30 days) 05/06/2024 04/30/2024 04/30/2024 6:33 AM 5:21 PM 4:30 PM ABO Rh A Positive A Positive A Positive Screen Int. Negative -- Negative ABG: Arterial Blood Gases None BNP: No result for BNP Hepatic Panel: LFT's (last 3 years, up to 8 values) No lab values to display. Glucose: Fingerstick Glucose (last 72 hours) (Last 10 results in the past 72 hours) Glucose 05/08/24 2126 138 05/08/24 1654 131 05/08/24 1148 126 05/08/24 0737 118 Comment: Notified RN RONY LOPEZ
05/07/24 2204 165 05/07/24 1650 153 05/07/24 1124 145 05/07/24 0744 111 05/06/24 2253 99 05/06/24 1750 99 A1c: No results found for: HBA1C TSH: Lab Results Component Value Date TSH 7.124 (H) 05/09/2024 Blood Culture: Blood Culture No lab values to display. Urine Culture: Urine Culture (last 1 year) No lab values to display. Respiratory Culture: Respiratory Culture, Misc No lab values to display. Wt Readings from Last 5 Encounters: 05/08/24 (!) 311 lb 4.6 oz (141.2 kg) Imaging Results (over previous 24 hours): No new imaging over the past 24 hours. Assessment and Plan: Diagnosis s/p fall down ~ 6Ft hole: - Right L1-L3 TP Fx - Anterior tension ban disruption of T11 - Right superior/inferior pubic rami Fx w/ extension into acetab - Left scapular Fx w/ intramuscular shoulder hematoma - Bilateral sacral Ala Fx - Right 2,3,4,5,6,7,8 Rib Fx - Left 4,5,6,7,8 Rib Fx - Bilateral pulmonary contusions - Right pleural effusion - Trace hemoperitoneum - Right distal femur fx - Acute blood loss anemia - Hemorrhagic shock - Shock of unknown etiology Associated Hospital Diagnosis: - Hyperkalemia - Hypomagnesemia - Recurrent Nausea/Vomiting PMH: - Hyperparathyroidism - ARASH - CAROL - Atrial- Fibrillation - HTN - HLD - Pacer - GERD - ESRD - Depression - CKD - T2DM - CHF - Gastroparesis Home Medications: ASA 81mg daily Insulin NPH (70U BID) Pioglitazone 30mg daily Sertraline 100mg daily Amiodarone 200mg daily Sevelamer 1600mg TID Apixaban 5mg BID Atorvastatin 40mg daily Gabapentin 100mg qHS Midodrine 10mg with dialysis Omeprazole 40mg daily Metoclopramide 10mg QID Furosemide 40mg BID Isosorbide Mononitrate 20mg q12h Metoprolol 25mg Daily Incidental Findings: - Cholelithiasis - Indeterminate right adrenal nodule Plan: Neurological: # Acute post traumatic pain # Hx of Depression - Acetaminophen 1G Q6hrs sched - Oxycodone 5/10mg Q4hrs PRN - Lidocaine - 2 patch Q24h - Dilaudid 0.5 mg IV Q2H PRN for Physical Therapy will fall off the MAR today - Robaxin 750mg Q6H - Cont home Gabapentin, Zoloft - Psych recs: - Increase Zoloft to 125 mg PO daily - Continue Gabapentin 100 mg at bedtime - Melatonin 3 mg PO at 1900 for sleep - Labs: TSH, Vitamin B12, Vitamin D, Mg2+, HIV/Hep B/Hep C/UA/ urine tox - B12 960 Cardiovascular: # Hx of HTN, HLD, CHF, Pacer, A-fib - Qtc 540 this a.m. from 567, s/p 1 g Mg yesterday - c/s cardio for management of home atrial fibrillation medications - c/s EP for persistent prolonged QT, awaiting recs - F/u Echo - Ok to continue home Apixaban 5 mg BID PO for hx of atrial fibrillation - Will continue to hold home ASA (per patient only taken for general prophylaxis) - Continue TELE monitoring - Continue home Amio, Lipitor - Continue Midodrine 10 mg Q8H PO (at home pt only takes midodrine on dialysis days PRN), consider increasing if after blood pressures remain borderline - Continue midodrine 10 mg PRN before dialysis - Last echo 01/05, LVEF 60% - Cardiology consulted for pacer interrogation given need for MRI -> seen by EP and per them would be ok for MRI as battery is - cannot be interrogated given age - see separate note from EP Respiratory: # Hx of ARASH - Saturating well on 2L NC, wean as able (pt not on home O2) - Maintain SpO2 > 92% - Continue pulse ox monitoring - Encourage incentive spirometry, advised patient on AM rounds - Requiring Bipap at bedtime for suspected ARASH, hypoventilation - Has home CPAP prescribed, noncompliant GI/Diet: # Hx of GERD # Hx of Gastroparesis - Diet: Full liquid diet + Dysphagia pureed L1 as pt not tolerating PO intake; Renal Boost per Nutrition - If continues to have minimal PO intake over the weekend, plan for post-pyloric Corpak on Saturday (May 11) - Qtc 540, continue to hold home Reglan - Tigan 100 mg IM Q12h PRN for nausea - Diazepam 2 mg IV Q8H PRN - second line for nausea (anecdotal evidence of efficacy for treating nausea in intestinal transplant patients) - Bowel reg: Discontinued Miralax (BM x 3 today), continue Senna 8.6 mg PO - Continue pantoprazole in place of home esomeprazole Renal/Electrolytes: # Hx of ESRD - iCal 1.06 - Replaced - F/u random cortisol - HD today - Nephro recs: - HD MWF (T//S this week) - Epo with dialysis - Continue midodrine as above - mIVF: none given renal disease - BMP/Mg/P daily - Replace electrolytes as indicated - Maintain Mg >2, K >4 - Measure strict I AND O - Continue home Renvela Infectious Disease: - Afebrile, no leukocytosis - Monitor temperature and WBC for signs of infection Hematology: # Hemorrhagic shock - s/p 2 U PRBC, post-transfusion hgb 8.8 - T AND S for tomorrow a.m. - CBC daily - Maintain hemoglobin >7 Endocrine: # Hx of Hyperparathyroidism, T2DM - TSH 7.124 - Start Synthroid 50 mcg PO before breakfast - C/s endocrine re: TSH, follow-up recs - sliding scale insulin QAC and at bedtime - POCT QAC and at bedtime - Pt states he no longer takes insulin at home, he takes ozempic only. Plan to restart on discharge. Musculoskeletal: # Pelvic Fx's # Right distal femur fx # Left Scap Fx S/p OR 05/02 - Progressive mobility - Ortho recs: following peripherally - NWB BLE - WBAT LUE - Ancef 3 g q8h - complete - Pelvic XR post-op - complete - Pain control: recommend multimodal - tylenol standing q6h, oxycodone q4h PRN, tramadol PRN, dilaudid PRN for breakthrough - May resume DVT PPX as per primary team -FU with Dr. Chu in 2 weeks at [facility] - PT/OT: - long term setting once medically cleared - Will continue to follow - PM AND R Consulted, appreciate recommendations - Ortho spine (05/01): - No acute spine interventions indicated Prophylaxis: - SCDs bilaterally - On therapeutic anticoagulation via home Eliquis Follow Up: - PCP: No primary care provider on file. - Ortho: with Dr. Chu in 2 weeks at [facility] - Endocrine LDA/Restraints: - PIV X 2 - L A-line - Consider removal this afternoon if blood pressures remain stable following dialysis - L Femoral CVC (removed 05/07) - RUE AVF Code Status: - Full Code Disposition: - Stepdown for telemetry given prolonged Qtc, can transfer to telemetry floor if necessary - LTACH vs SNF depending on cardiac, dietary Patient seen and evaluated with Attending Surgeon Dr. Giron. Please see attending attestation for final plan/recommendations. Gorge Reed MD Anesthesiology Medical Aide, PGY1 RED BLOOD CELL COMPONENT Collected: 1:55 AM Status: F Source: THE [facility] TYPE CODE TESTS RESULT OUT OF RANGE REFERENCE UNITS LAB 99 BB ORDER ITEM Product status info to follow Performed By: #### RBO #### [facility] [address] [place] [address], RED BLOOD CELL UNIT STATUS Collected: 05/09/2024 1:55 AM Status: C Source: THE [facility] TYPE CODE TESTS RESULT OUT OF RANGE REFERENCE UNITS LAB XM CROSSMATCH INTERPRETATION Compatible (E) LAB UT BLOOD PRODUCT UN IT TYPE 6200 Result Comment: A Pos LAB UN BLOOD PRODUCT UN IT INFO [id number] LAB ST BLOOD PRODUCT STATUS Transfused LAB PI BLOOD PRODUCT DESCRIPTION Red Blood Cells LAB SPC BLOOD PRODUCT CODE [id number] Performed By: #### RBU #### [facility] [address] [place] [address], MAGNESIUM Collected: 1:17 AM Status: F Source: THE [facility] SYSTEM TYPE CODE TESTS RESULT OUT OF RANGE REFERENCE UNITS LAB mag MG 2.1 1.9-2.7 mg/dL Performed By: #### PHOS, CH8 , VITB12, MG, TSH HS #### [facility] [address] [place], [place], PHOSPHORUS Collected: 1:17 AM Status: F [facility]: [facility] TYPE CODE TESTS RESULT OUT OF RANGE REFERENCE UNITS LAB PHOS PHOS 4.3 2.5-5.0 mg/dL Performed By: #### PHOS, CH8 , VITB12, MG, TSH HS #### [facility] [address] [place], [place], BASIC METABOLIC PANEL Collected: 2023 1:17 AM Status: F [facility]: [facility] CODE TESTS RESULT OUT OF RANGE REFERENCE UNITS LAB GLU GLU 124 High 74-109 mg/dL LAB NA3 NA 135 Low 136-145 mmol/L LAB POT K 4.7 3.5-5.0 mmol/L LAB CO2 CO2 24 21-31 mmol/L LAB CHLOR CL 99 98-107 mmol/L LAB BUN BUN 35 High 7-25 mg/dL LAB CREAT CREAT 4.57 High 0.70-1.30 mg/dL LAB CA CA 7.5 Low 8.6-10.3 mg/dL LAB ANION GAP ANION GAP 17 10-20 LAB eGFR ESTIMATED GFR (CKD-EPI) 14 Low >=60 mL/min/1 .73sqm Result Comment: 2020 CKD EPI Equation using Creatinine without Race Comment: Estimated glomerular filtration rate (eGFR) is calculated without a race coefficient. Values should be interpreted in the context of the patient's full clinical presentation. Reference: 1. Christophe C, Sagrario M, Gena YUAN, et al.. A Unifying Approach for GFR Estimation: Recommendations of the NKF-ASN Task Force on Reassessing the Inclusion of Race in Diagnosing Kidney Disease. [place] Journal of Kidney Diseases 202;79(2):268- 88.e1. 2. N Engl J Med 2021 Vol. 385 Issue 19 Pages 9212-2111 Performed By: #### PHOS, CH8 , VITB12, MG, TSH HS #### [facility] [address] [place], [place], TSH Collected: 1:17 AM Status: F Source: THE [facility] TYPE CODE TESTS RESULT OUT OF RANGE REFERENCE UNITS LAB TSH HS TSH 7.124 High 0.450-5.330 uIU/mL Performed By: #### PHOS, CH8 , VITB12, MG, TSH HS #### [facility] [address] [place] [address], VITAMIN B12 (CYANOCOBALAMIN) Collected: 05/09/2024 1:17 AM Status: F Source: [facility] Order Comment: Deficient: <= 145 pg/mL Insufficient: 145 - 180 pg/mL Sufficient: 180 - 914 pg/mL TYPE CODE TESTS RESULT OUT OF RANGE REFERENCE UNITS LAB VITB12 VITB12 960 High 180-914 pg/mL Performed By: #### PHOS, CH8 , VITB12, MG, TSH HS #### [facility] [address] [place] [address], COMPLETE BLOOD COUNT Collected: 1:17 AM Status: F Source: [facility] TYPE CODE TESTS RESULT OUT OF RANGE REFERENCE UNITS LAB WBC WBC 9.4 4.5-11.5 K/uL LAB RBC RBC 2.20 Low 4.50-5.90 M/uL LAB HGB HGB 6.9 Low Alert 13.9-16.3 g/dL LAB HCT HCT 20.6 Low 41.0-53.0 % LAB MCV MCV 97 80-100 fL LAB MCH MCH 31.5 26.0-34.0 pg LAB MCHC MCHC 32.5 32.0-35.9 g/dL LAB PLT PLT 151 150-400 K/uL LAB RDW RDW-CV 17.1 High 11.5-14.5 % LAB MPV MPV 9.0 7.5-11.2 fL Performed By: #### CBC #### [facility] [address] [place] [address], CALCIUM, IONIZED Collected: 1:10 AM Status: F Source: [facility] TYPE CODE TESTS RESULT OUT OF RANGE REFERENCE UNITS LAB CR ICA CR ICA 1.06 Low 1.15-1.33 mmol/L Result Comment: This test wa s developed, and its performance characteristics determined by the Department of Pathology of [facility]. It has not been cleared or approved by the FDA. This test is used for clinical purposes only. Performed By: #### CR ICA ## ## [facility] [address] [place], [address] GLUCOSE, FINGERSTICK-IN OFFICE Collecte d: 05/08/2024 9:26 PM Status: F Source: THE [facility] TYPE CODE TESTS RESULT OUT OF RANGE REFERENCE UNITS LAB [place] GLUCOSE, POC 138 High 74-109 mg/dL Performed By: #### [id number] ### # NURSING GLUCOSE PROGRAM [address] [place], [address] GLUCOSE, FINGERSTICK-IN OFFICE Collecte d: 05/08/2024 4:54 PM Status: F Source: THE [facility] SYSTEM TYPE CODE TESTS RESULT OUT OF RANGE REFERENCE UNITS LAB [place] GLUCOSE, POC 131 High 74-109 mg/dL Performed By: #### [id number] ### # NURSING GLUCOSE PROGRAM [address] [place], [address] PROGRESS NOTES Observed: 05/08/2024 4:27 PM Status: COMPLETED Source: THE [facility] SYSTEM Nephrology Follow-up Note Amado Tran 59 year old [phone] lbs MRN/Room: [id number]/[facility] Subjective: HD Today done Tolerated Objective: Meds: [START ON 05/09/2024] sertraline 125 mg Daily midodrine 7.5 mg Every 8 hours folic acid 1 mg Daily [START ON 05/11/2024] folic acid 1 mg Daily vitamin D2 ergocalciferol 50,000 Units Q7 Days cholecalciferol 1,000 Units Daily Normal consistency 2x Daily with Meals Normal consistency Daily with breakfast Apixaban 5 mg 2x Daily Sonali-Riri RX 1 Tablet Daily insulin regular 4-14 Units 4x Daily AC AND HS methocarbamol 750 mg Every 6 hours epoetin antione-epbx 10,000 Units Q M, W AND F acetaminophen 1,000 mg q6h nystatin 2x Daily albuterol 2.5 mg QID RT sevelamer carbonate 800 mg 3x Daily with Meals amiodarone 200 mg Daily atorvastatin 40 mg At Bedtime gabapentin 100 mg At Bedtime pantoprazole 40 mg Daily 30 min before breakfast lidocaine 2 Patch Every 24 hours senna 8.6 mg At Bedtime diazePAM 2 mg Q8H PRN trimethobenzamide 100 mg Q12H PRN midodrine 10 mg Daily PRN albuterol 2.5 mg Q4H PRN oxyCODONE 10 mg Q4H PRN oxyCODONE 5 mg Q4H PRN dextrose iv for hypoglycemia orderable 125 mL PRN Or glucagon 1 mg PRN Or dextrose 15 g of glucose PRN Or dextrose 30 g of glucose PRN Vital sign ranges over the past 24 hours (retrieved 05/08/2024 at 4:27 PM): Tmax (24 hours): 98.6 ???F (37 ???C) Pulse Av.3 Min: 63 Max: 83 No data recorded. No data recorded. No data recorded Resp Av.1 Min: 9 Max: 21 SpO2 Av.1 % Min: 96 % Max: 100 % Patient Vitals for the past 24 hrs: Temp Temp src Pulse Resp SpO2 O2 Device O2 Flow Rate (l/min) 05/08/24 1615 -- -- 72 18 99 % Nasal cannula 2 05/08/24 1600 97.7 ???F (36.5 ???C) Oral -- -- -- -- -- 05/08/24 1300 -- -- 82 21 99 % -- -- 05/08/24 1230 97.7 ???F (36.5 ???C) Axillary 80 17 -- Nasal cannula -- 05/08/24 1208 -- -- 83 17 100 % Nasal cannula 2 05/08/24 1200 -- -- 80 16 100 % Nasal cannula 2 05/08/24 1100 -- -- 73 15 100 % -- -- 05/08/24 1000 -- -- 77 14 100 % -- -- 05/08/24 0900 -- -- 74 15 99 % -- -- 05/08/24 0830 -- -- -- -- -- Nasal cannula 2 05/08/24 0823 -- -- 67 19 100 % Nasal cannula 2 05/08/24 0800 98.2 ???F (36.8 ???C) Axillary 66 19 99 % BiPAP -- 05/08/24 0700 -- -- 67 13 99 % -- -- 05/08/24 0600 -- -- 67 13 100 % -- -- 05/08/24 0500 -- -- 63 11 100 % -- -- 05/08/24 0400 97.9 ???F (36.6 ???C) Oral 63 10 97 % BiPAP 2 05/08/24 0300 -- -- 65 9 98 % -- -- 05/08/24 0200 -- -- 65 14 100 % -- -- 05/08/24 0136 -- -- -- -- -- BiPAP 2 05/08/24 0100 -- -- 64 12 99 % -- -- 05/08/24 0000 98.6 ???F (37 ???C) Oral 65 12 99 % BiPAP 2 05/07/24 230 -- -- 66 15 97 % -- -- 05/07/242236 -- -- 68 16 99 % BiPAP 2 05/07/242199 -- -- 65 16 100 % -- -- 05/07/242099 -- -- 66 14 99 % -- -- 05/07/242005 -- -- 65 12 99 % Nasal cannula 2 05/07/241999 98.2 ???F (36.8 ???C) Oral 65 13 96 % Nasal cannula 2 05/07/24 1800 -- -- 71 20 99 % -- -- 05/07/24 1657 -- -- 69 16 100 % Nasal cannula 2 05/07/24 1637 -- -- 63 21 99 % Nasal cannula 2 Intake/Output Summary (Last 24 hours) at 05/08/2024 1627 Last data filed at 05/08/2024 1230 Gross per 24 hour Intake 350 ml Output -1500 ml Net 1850 ml General appearance: no distress Eyes: non-icteric Skin: no apparent rash Heart: s1s2 regular Lungs: reduced breathing sounds no wheezing/crackles Abdomen: soft, nt/nd Extremities: trace edema bilat Caceres Neuro: No FND,no asterixis Access RUE AVG with bruit and thrill. Echymosis. Blood Labs: Arterial Blood Gases None CBC/PT/INR 05/08/2024 05/07/2024 05/06/2024 05/06/2024 4:11 AM 4:20 AM 6:32 PM 4:42 AM WBC 9.2 7.1 8.1 7.0 RBC 2.35 2.40 2.61 2.13 Hgb 7.6 7.4 8.3 6.7 Hct 22.5 23.0 25.4 20.5 MCV 96 96 97 97 RDW 16.3 16.1 16.6 16.7 Plt 155 116 127 108 Basic Metabolic Panel 05/08/2024 05/07/2024 05/06/2024 4:11 AM 4:20 AM 4:42 AM Na 131 132 132 K 4.8 4.6 4.4 Cl 93 94 95 CO2 25 24 25 Gap 18 19 16 Glu 112 99 95 BUN 63 55 44 Cr 7.48 6.91 5.69 Ca 7.7 7.8 7.7 Mg 2.5 2.2 2.1 PO4 6.5 6.7 5.2 ASSESSMENT: Amado Tran is a 59 year old with PMHx of Pacemaker, ARASH, HLD, GERD, Depression, ESRD (HD MWF, RUE AV Fistula), CKD, HTN, T2DM, Systolic HF, and atrial fibrillation on Eliquis presenting to the ED after falling into a 6 foot hole. Multiple fractures. ESRD on HD MWF - Access: RUE AVG - electrolytes: hyponatremia from impaired free water deficit - anemia: from OR and CKD, hgb below goal - CKDMBD: phos elevated, calcium low albumin unknown. - for Midodrine before HD - EPO with HD. #Ortho surgery 05/02 #Needs spine surgery RECOMMENDATIONS: - HD 05/08 AND 05/09 planned. - MWF HD - Continue midodrine prior to HD. - Renal MV and Renal diet. Ayleen Kurtz MD Nephrology Fellow Daytime / Weekend Renal Pager [phone] After 7 pm Emergencies Pager [phone] Attending/Teaching Physician Note: I saw and evaluated the patient, I personally obtained kirby and critical portions of the history and physical exam. I reviewed the fellow's documentation and discussed the patient with the fellow. I agree with the fellow's medical decision making as documented in the fellow's note. Additional findings, impression, and plan are as follows: ESKD admitted s/p fall with multiple fractures - HD today, then again tomorrow - today will only have been pt second HD tx this week d/t access infiltration yesterday - con't midodrine for BP support Alan Miranda MD PROGRESS NOTES Observed: 05/08/2024 2:33 PM Status: COMPLETED Source: THE [facility] ICU Note SW has been following pt for SNF planning. Pt with general SNF list and SNF list with onsite HD. If pt selects a SNF w/o onsite dialysis the facility will need to be able to provide pt transportation to HD. Pt normally dialyzes MWF 6:30a-11:30a at [facility] [place]. P# ; F# . Pt's form press operator is Dr. Decker. Attempted to meet with pt multiple times for SNF follow-up. Pt sleeping or with medical providers at SW's attempts. Pt not ready for DC, no weekend discharge. Plan: Awaiting SNF choice(s) and acceptance. Pending pt's medical needs pt may be LTACH candidate. SW or nursing CM will continue to follow. Jodee Balderrama, ELICEO, KAREN PROGRESS NOTES Observed: 05/08/2024 12:49 PM Status: COMPLETED Source: [facility] Tx complete 1500 mL uf remov ed tolerated well 05/08/24 1230 Dialysis Weight Assessment Weight (!) 141.2 kg (311 lb 4.6 oz) Graft/Fistula Dialysis Access Right Present on Arrival to Hospital Insertion Date/Insertion Time: 04/30/24 1850 Laterality: Right Location: Arm Present on Admission?: Present on Arrival to Hospital Access Assessment Positive bruit;Positive thrill;Positive blood return Site Assessment WNL;Dressing applied/changed;Dressing dry and intact Access Assessment Arterial Port Aspirate Yes Arterial Port Flush Yes Venous Port Aspirate Yes Venous Port Flush Yes Access Function WNL Respiratory Respiratory Pattern Shallow Neurological / Neuromuscular Level of Consciousness WNL Vital Signs Temperature 98.1 ???F (36.7 ???C) Heart Rate 80 Respiratory Rate 17 Arterial Line (ABP) Arterial BP 105/36 Oxygen Therapy O2 Device Nasal cannula Run Sheet Hemodialysis Start/Stop Stop System Flush Saline Blood Volume Processed ( L ) 76.8 L Gross Fluid Removed (ml) 2300 ml CritLine Hct 28.2 CritLine BV% -4.7 % Comments tx complete CritLine Monitoring Initial Hct 26.9 Ending Profile a Refill Yes Total Fluid Removed Total Fluid Removed (ml) 2300 ml Prime (ml) 300 mL Rinseback (ml) 300 ml Saline Flush (ml) 200 ml Actual (Net) Fluid Removed (ml) -1500 ml GLUCOSE, FINGERSTICK-IN OFFICE Collecte d: 05/08/2024 11:48 AM Status: F Source: THE [facility] SYSTEM TYPE CODE TESTS RESULT OUT OF RANGE REFERENCE UNITS LAB Mong[place]ian GLUCOSE, POC 126 High 74-109 mg/dL Performed By: #### [id number] ### # NURSING GLUCOSE PROGRAM [facility] [place], [address] CONSULTS Observed: 05/08/2024 11:13 AM Status: COMPLETED Source: THE [facility] Attestation signed by Ryley Johnson DO at 05/09/2024 8:09 AM Teaching Physician Note During my evaluation of Mr. Tran with the Consult-Liaison team, I obtained kirby and crucial information about his medical history, spoke to the resident (David David MD), reviewed his documentation, agreed with the assessment and plan within, and discussed the plan with the primary medical team via secure chat. I am available for any multidisciplinary discussions. Ryley Johnson DO Attending Psychiatrist PSYCHIATRY CONSULTATION-LIAISON SERVICE: PROVIDER REQUESTING CONSULT: Farrah Asencio MD CONSULTING ATTENDING: Dr. Johnson Inpatient Floor: [id number] IDENTIFICATION: Amado Tran is a 59 year old year old White male. He is single. 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 Patient seen alone. HOSPITAL COURSE/HPI PER PRIMARY TEAM: Amado Tran is a 59 year old y/o male with PMH of Hyperparathyroidism, Pacemaker, ARASH, CAROL, HLD, GERD, Depression, ESRD (HD MWF, RUE AV Fistula), CKD, HTN, T2DM, Systolic HF, and atrial fibrillation on Eliquis who presented to via [facility] as an inter facility transfer from [facility] s/p Fall. Per reports Pt was at a instant oil change location when he exited his vehicle to assist the senior quality control technician in opening his vehicle door, when he stepped behind his vehicle he accidentally fell through the floor opening aprox 6ft. Pt. Reports falling straight down, negative LOC, negative head strike. Pt was unable to get up under his own strength, EMS was called and Pt was extricated via EMS/FD, immobilized and transported to [facility] ED. Imaging at OSH demonstrated a Grade 1 splenic injury, multiple bilateral rib fractures, and multiple pelvic fractures. Received K-centra, as well as PRBC X 2 and Calcium Gluc. [facility] was requested for transport to for orthopedics and trauma evaluations. EN route Pt received an additional unit of whole blood. On arrival to pt alert and oriented x 3, w/ GCS-15. On 4LNC, Labile blood pressures and received an additional PRBC X 1, FFP X 1 in ED. Pt was COTE scanned again here at [facility] given the absence of contrast at OSH. Pt. Had CVC and A-line placed in ED and was admitted to TICU for respiratory and hemodynamic monitoring. HISTORY OF PRESENT ILLNESS: Patient with a history of HISTORY OF: depressive disorder. Past Medical History of Hyperparathyroidism, Pacemaker, ARASH, CAROL, HLD, GERD, Depression, ESRD (HD MWF, RUE AV Fistula), CKD, HTN, T2DM, Systolic HF, and atrial fibrillation on Eliquis who presented to via [facility] as an inter facility transfer from [facility] s/p Fall. Consulted to CL-team for medication management. Stressors / Circumstances: traumatic event. Chief Complaint/Admitting Diagnosis: admitted to TICU for respiratory and hemodynamic monitoring. Reason for Consult: medication management PER CHART REVIEW: Past psychiatric diagnoses: PAST PSY Dx: depressive disorder. Past psychiatric medications AND side effects: Zoloft 100 mg PO OD and Gabapentin 100 mg at bedtime for DN Seen by a psychiatrist before? When AND Why: No. Past suicidal attempts: no. Past psych admissions: No. Current psychiatric meds: Zoloft 100 mg PO OD and Gabapentin 100 mg at bedtime for DN Current medication side effects: None. OARRS - Reviewed: Unintentional Overdose Risk Score Model: Average: 000 Narcotics: 000 Sedatives: 000 Stimulants: 000 SUBJECTIVE: On interview today, patient was seen in their room at bedside. - was dysphoric, states his mood is pretty much at baseline, and he has been feeling down since 5 years after his health got worse - states he has been having dialysis three days a week for many years - states he was prescribed Zoloft by his PCP five years ago -states he never saw a psychiatrist -denied any suicide attempts in the past -denies any family psychiatric history -denied any suicidal thoughts in the past or at this point -states he is from [place] -states he never got and had multiple girlfriends in the past - states his sober social support system is his brother and cousin in his friend's -states he wants to get well soon and get out of the hospital and go back to work VITALS: Vitals Recorded in This Encounter 05/08/2024 1208 05/08/2024 1230 05/08/2024 1300 05/08/2024 1301 05/08/2024 1325 Pulse: 83 80 82 -- -- Resp: 17 -- -- Temp: -- 97.7 ???F (36.5 ???C) -- -- -- Temp src: -- Axillary -- -- -- SpO2: 100 % -- 99 % -- -- Weight: -- 311 lb 4.6 oz (141.2 kg) -- -- -- Pain Score: -- -- -- 10 9 Vital sign ranges over the past 24 hours (retrieved 05/08/2024 at 2:37 PM): Tmax (24 hours): 98.6 ???F (37 ???C) Pulse Av.7 Min: 62 Max: 83 No data recorded. No data recorded. No data recorded Resp Av.1 Min: 9 Max: 21 SpO2 Av.1 % Min: 96 % Max: 100 % EKG: the patient's EKG and showed QTc of 540ms on EKG done on 05/08/2024 ALL CURRENT HOSPITAL MEDICATIONS: Scheduled medications [START ON 05/09/2024] sertraline 125 mg Daily midodrine 7.5 mg Every 8 hours folic acid 1 mg Daily [START ON 05/11/2024] folic acid 1 mg Daily vitamin D2 ergocalciferol 50,000 Units Q7 Days cholecalciferol 1,000 Units Daily Normal consistency 2x Daily with Meals Normal consistency Daily with breakfast Apixaban 5 mg 2x Daily Sonali-Riri RX 1 Tablet Daily insulin regular 4-14 Units 4x Daily AC AND HS methocarbamol 750 mg Every 6 hours epoetin antione-epbx 10,000 Units Q M, W AND F acetaminophen 1,000 mg q6h nystatin 2x Daily albuterol 2.5 mg QID RT sevelamer carbonate 800 mg 3x Daily with Meals amiodarone 200 mg Daily atorvastatin 40 mg At Bedtime gabapentin 100 mg At Bedtime pantoprazole 40 mg Daily 30 min before breakfast lidocaine 2 Patch Every 24 hours senna 8.6 mg At Bedtime IV medications PRN medications diazePAM 2 mg Q8H PRN trimethobenzamide 100 mg Q12H PRN midodrine 10 mg Daily PRN albuterol 2.5 mg Q4H PRN oxyCODONE 10 mg Q4H PRN oxyCODONE 5 mg Q4H PRN dextrose iv for hypoglycemia orderable 125 mL PRN Or glucagon 1 mg PRN Or dextrose 15 g of glucose PRN Or dextrose 30 g of glucose PRN PSYCHIATRIC REVIEW OF SYSTEMS: Per HPI SUBSTANCE USE HISTORY: Smoking: Never smoked. Alcohol use: Denied past or active alcohol use. Illicit drug use: Denies past or current illicit drug use. FAMILY AND SOCIAL HISTORY: The patient was born in [place], raised by biological parents Abuse/ trauma in childhood: no Education: High school graduate Academic performance: average service: Unknown / NA.. Current RESIDENCY: lives alone Current social SUPPORT: siblings, friends. Patient describes role of SHINTO in life as unknown / NA LEGAL history: unknown or N/A Family history: none MEDICAL HISTORY: No past medical history on file. REVIEW OF SYSTEMS: Skin: no reported complaints Eyes: no reported complaints Ears/Nose/Throat: no reported complaints Respiratory: no reported complaints Cardiovascular: no reported complaints Gastrointestinal: no reported complaints Genitourinary: no reported complaints Neurologic: no reported complaints Psychiatric: Per HPI and psych ROS Hematologic/Lymphatic/Immunologic: no reported complaints Endocrine: no reported complaints ALLERGIES: Allergies Allergen Reactions Penicillins Faint Feeling Pt states when he was approx 5 years old he passed out after taking PCN OBJECTIVE: MENTAL STATUS EXAMINATION: Appearance: stated age, hospital gown, undergoing dialysis Behavior: alert, cooperative Motor: no PMR/PMA Speech: reduced rate, volume, amount, and lack of prosody Mood: dysphoric Affect: congruent blunted affect, constricted, Thought process: ruminative about his medical illness Thought content: denies SI Perceptions: no AVH Insight: poor Judgement: poor Memory: intact per interview Concentration: fair Orientation: x4 SUICIDE RISK ASSESSMENT C-SSRS [place]-Suicide Severity Rating Scale Able to complete [place]-Suicide Severity Rating Scale with Patient?: Yes 1) Wish to be : No 2) Current suicidal thoughts: No 6) C-SSRS Suicidal Behavior: No Risk of Suicide: Negative Screen Did patient score moderate or high risk on the C-SSRS?: No SAFE-T LABS: CBC 05/08/2024 05/07/2024 05/06/2024 05/06/2024 05/05/2024 05/04/2024 05/03/2024 05/03/2024 4:11 AM 4:20 AM 6:32 PM 4:42 AM 3:59 AM 1:45 AM 5:00 AM 3:58 AM WBC 9.2 7.1 8.1 7.0 10.2 10.0 10.5 10.4 RBC 2.35 2.40 2.61 2.13 2.24 2.27 2.18 2.16 Hgb 7.6 7.4 8.3 6.7 7.1 7.2 6.9 6.9 Hct 22.5 23.0 25.4 20.5 21.2 21.2 20.3 20.1 MCV 96 96 97 97 95 94 93 93 RDW 16.3 16.1 16.6 16.7 16.8 17.0 17.2 17.5 Plt 155 116 127 108 111 89 72 69 BMP (last 1 year, up to 8 values) 05/08/2024 05/07/2024 05/06/2024 05/05/2024 05/04/2024 05/04/2024 05/03/2024 05/02/2024 4:11 AM 4:20 AM 4:42 AM 3:59 AM 9:47 PM 1:45 AM 3:58 AM 2:45 PM Na 131 132 132 128 130 130 132 131 K 4.8 4.6 4.4 5.2 5.3 5.1 5.3 5.5 Cl 93 94 95 91 92 95 96 98 CO2 25 24 25 25 24 23 24 19 Gap 18 19 16 17 19 17 17 20 Glu 112 99 95 90 148 184 246 293 BUN 63 55 44 79 74 61 43 31 Cr 7.48 6.91 5.69 8.72 8.31 7.69 6.81 5.71 Ca 7.7 7.8 7.7 7.8 7.7 7.8 8.1 8.4 eGFR 8 8 11 6 7 7 9 11 Mg 2.5 2.2 2.1 2.3 -- 2.1 2.0 2.0 PO4 6.5 6.7 5.2 6.9 -- 6.1 5.2 5.4 No results found for: B12 No results found for this or any previous visit (from the past 8760 hour(s)). Lipids (last 3 years, up to 8 values) No lab values to display. No results found for: TSH Vitamin D, 25-OH (ng/mL) Date Value 05/06/2024 12.3 (L) PT/PTT/INR (last 3 years, up to 8 values) 05/01/2024 05/01/2024 04/30/2024 4:51 PM 10:10 AM 8:44 PM aPTT 29 -- -- INR -- 1.16 1.29 No results found for: HBA1C LFT's (last 3 years, up to 8 values) No lab values to display. IMAGING: XR CHEST AP OR PA 1 VIEW Result Date: 05/03/2024 Narrative: EXAMINATION: XR CHEST AP OR PA 1 VIEW 05/03/2024 08:23 AM CLINICAL HISTORY: f/u after multiple rib fractures, no active resp distress ASSOCIATED DIAGNOSIS: f/u after multiple rib fractures, no active resp distress ORDERING PROVIDER: ROYCE REYNOSO COMPARISON: XR CHEST AP OR PA 1 VIEW 05/01/2024, 6:28 AM FINDINGS: Lines, tubes, and devices: None. Lungs and pleura: Suspected trace left apical pneumothorax. No appreciable right-sided pneumothorax. Bilateral infrahilar and left basilar predominant heterogeneous opacities likely representing atelectasis. Cardiomediastinal silhouette: The cardiac silhouette is enlarged. A dual lead cardiac device is present with lead tips overlying the right atrial appendage and right ventricle. Musculoskeletal: Again seen minimally displaced bilateral rib fractures and left scapular fracture. IMPRESSION: Suspected trace left apical pneumothorax. No appreciable right-sided pneumothorax. Otherwise unchanged pulmonary findings as detailed. XR PELVIS SINGLE VIEW Result Date: 05/02/2024 Narrative: EXAMINATION: XR PELVIS SINGLE VIEW 05/02/2024 01:15 PM CLINICAL HISTORY: post op xray in SICU ORDERING PROVIDER: PADMINI THAPA COMPARISON: XR PELVIS INLET OUTLET 2 VIEWS 05/01/2024, 6:27 AM IMPRESSION: Interval fixation of bilateral sacroiliac joints with single partially threaded trans-sacroiliac screw. Additionally, right intramedullary fixation gentry is seen with 2 proximal interlocking screws in the proximal femoral diaphysis. No significant change in position or alignment of the previously described fractures. XR T-SPINE 3 VIEWS Result Date: 05/01/2024 Narrative: EXAMINATION: XR T-SPINE 3 VIEWS 05/01/2024 03:00 PM CLINICAL HISTORY: uprights ASSOCIATED DIAGNOSIS: ORDERING PROVIDER: TYLER LYNN TECHNMICHELLE NOTE: Imaging ok per spine ortho, considering patient condition multiple fx COMPARISON: None FINDINGS: IMPRESSION: Very limited exam; essentially no meaningful diagnostic detail. MACRO: None XR L-SPINE STANDING AP+LAT 2 VIEWS Result Date: 05/01/2024 Narrative: EXAMINATION: XR L-SPINE STANDING AP+LAT 2 VIEWS 05/01/2024 02:35 PM CLINICAL HISTORY: uprights ASSOCIATED DIAGNOSIS: ORDERING PROVIDER: TYLER Zapnip TECHNMICHELLE NOTE: Best possible, patient condition not ideal for bed imaging upright, multiple fx, spine, UEX and ARUN fx, rib fx COMPARISON: None FINDINGS: IMPRESSION: Very limited exam; essentially no meaningful diagnostic detail. MACRO: None XR CHEST AP OR PA 1 VIEW Result Date: 05/01/2024 Narrative: EXAMINATION: XR CHEST AP OR PA 1 VIEW 05/01/2024 06:04 AM CLINICAL HISTORY: B/L Rib fxs, worsening resp status ASSOCIATED DIAGNOSIS: B/L Rib fxs, worsening resp status ORDERING PROVIDER: OMAR CARPENTER TECHNMICHELLE NOTE: Imaging limited by patient condition, body habitus and inability to remove overlying pelvic binder artifact. COMPARISON: XR CHEST AP OR PA 1 VIEW 04/30/2024, 5:[address] CHEST/ABD/PELVIS W/ CONTRAST 04/30/2024, 6:[address] BODY IMAGE IMPORT(SMITH) 04/30/2024, 5:53 PM FINDINGS: Lines, tubes, and devices: Dual-chamber bipolar pacemaker via left subclavian approach. Lungs and pleura: Areas of atelectasis bilaterally, more on the left: new/progressed. Cardiomediastinal silhouette: Cardiac silhouette is prominent. Pacemaker as above Musculoskeletal: Limited visualization. Fracture of at least left scapula and bilateral RIBS. Patient appears osteopenic but this may be technical so clinical correlation will be appropriate. IMPRESSION: Developing areas of atelectasis bilaterally, more on the left. These are new/progressed since the immediate prior exam and patient presented on 04/30/2024. Mucous plugging and/or aspiration are considerations. Bilateral rib fractures at least left scapular fracture, better seen on CT MACRO: None XR PELVIS INLET OUTLET 2 VIEWS Result Date: 05/01/2024 Narrative: EXAMINATION: XR PELVIS INLET OUTLET 2 VIEWS 05/01/2024 05:58 AM CLINICAL HISTORY: AP inlet outlet ASSOCIATED DIAGNOSIS: ORDERING PROVIDER: VALENTE TEJEDA NOTE: Imaging limited by patient condition, body habitus and inability to remove overlying pelvic binder artifact. COMPARISON: None FINDINGS: IMPRESSION: Limited detail related to body habitus. There is widening of the right SI joint evidence of discontinuity involving superior pubic ramus on the right side. These features are better seen on CT. Firm-appearing residue within the rectum. Examination is otherwise limited MACRO: None XR HIP RIGHT AP+LAT 2 VIEWS Result Date: 05/01/2024 Narrative: EXAMINATION: XR HIP RIGHT AP+LAT 2 VIEWSPRO/RT 05/01/2024 05:50 AM CLINICAL HISTORY: fx ASSOCIATED DIAGNOSIS: fx ORDERING PROVIDER: VALENTE TEJEDA NOTE: Imaging limited by patient condition, body habitus and inability to remove overlying pelvic binder artifact. COMPARISON: CT PELVIS BONY W/O CONTRAST 04/30/2024, 6:15 PM IMPRESSION: There is limitation related to portable nature the study: Examination is centered low. Proximal shaft and intertrochanteric and neck region of the proximal right femur appear grossly intact. Examination is otherwise limited Right hip MACRO: None XR KNEE RIGHT AP+LAT 2 VIEWS Result Date: 05/01/2024 Narrative: EXAMINATION: XR KNEE RIGHT AP+LAT 2 VIEWSPRO/RT 05/01/2024 02:25 AM CLINICAL HISTORY: post traction COMPARISON: XR KNEE RIGHT AP+LAT 2 VIEWS 05/01/2024, 12:[address] FEMUR RIGHT W/O CONTRAST 04/30/2024, 6:15 PM. IMPRESSION: Status post placement of traction device in the right proximal anterior tibial metadiaphysis. No acute fracture or dislocation visualized. Vascular calcifications. XR KNEE RIGHT AP+LAT 2 VIEWS MACRO: None ASSESSMENT AND IMPRESSION: Amado Tran is a 59 year old White male with a history of HISTORY OF: depressive disorder. Past Medical History of Hyperparathyroidism, Pacemaker, ARASH, CAROL, HLD, GERD, Depression, ESRD (HD MWF, RUE AV Fistula), CKD, HTN, T2DM, Systolic HF, and atrial fibrillation on Eliquis who presented to via [facility] as an inter facility transfer from [facility] s/p Fall. Assessment was notable for subjective endorsement of dysphoric mood with restricted affect. Thought process is logical, organized and goal directed with tight association. No evidence of acute manic, hypomanic, psychotic other psychiatric decompensation. Patient denied any ideation, intent, plan to harm himself or anyone else. Furthermore current mood symptoms are not a deviation from the baseline according to chart review and per patient which has been going for around five years after his medical illness got worse with CKD and Cardiac comorbidities. Patient's symptoms are chronic and there are no acute changes in behavior. The patient is future oriented and wants to go back to work and hoping to seek treatment for his Chronic comorbidities. Medication benefits, importance of compliance with medications and side effects were reviewed with the patient. We will continue follow the patient to monitor for side effects/response to treatment and adjust regimen as needed. 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 Sitter at the discretion of the primary team. Sleep PRN: Melatonin 3 mg PO at 1900 for sleep. Labs: TSH, Vitamin B12, Vitamin D, Mg2+, HIV/Hep B/Hep C/UA/ urine tox if not already done. Replenish as needed. Other tests: None. Disposition: As per primary team. Other: Offer art therapy, music therapy, cold reduction roller therapy, psychotherapy if patient amenable. Spend more bedside minutes. Patient Education: Assessment AND plan was discussed, medication benefits AND side effects were explained, understanding AND agreement about the plan were verbalized, therapeutic alliance was established through eye contact AND active listening. Thank you for the opportunity to assist in Amado Tran's care and thank you for this interesting consult. We will continue to sign off , please page us with any new concerns The patient was seen and discussed with Dr. Johnson. Assessment and plan not finalized until signed by the attending. Personally communicated above recs to primary team, Dr. Johnson via [employer] chat @ 2:37 PM David David MD PGY-2 Psychiatry 05/08/24 If patient is admitted to the hospital and psychiatric consultation is necessary, please place order in [facility] [employer] for IP Psychiatry Adult Consult and page: Weekdays 8 AM - 5 PM: [phone] Weekdays 5 PM - 11 PM, Weekends 8 AM to 8 PM: [phone] Weekdays 11 PM - 8 AM, Weekends 8 PM to 8 AM: [phone] This note was created with the assistance of speech recognition software. PROGRESS NOTES Observed: 05/08/2024 7:39 AM Status: COMPLETED Source: THE [facility] DEPARTMENT OF SURGERY DIVISION OF TRAUMA, BURN, AND CRITICAL CARE TRAUMA INTENSIVE CARE UNIT (TICU) DAILY PROGRESS NOTE Patient: Amado Tran, 59 year old, male : 1965 Admit Date: 04/30/2024 Room: [facility] Today's Date: 05/08/2024, Length of stay: 8 day(s) Code Status: Full Code Height: 5' 9 Weight: 142.4 kg BMI: 46.37 SURGICAL ICU - STAFF NOTE Patient seen and examined on 05/08/2024 Interval History/Events: Background: Amado Tran is a 59 year old y/o male with PMH of Hyperparathyroidism, Pacemaker, ARASH, CAROL, HLD, GERD, Depression, ESRD (HD MWF, RUE AV Fistula), CKD, HTN, T2DM, Systolic HF, and atrial fibrillation on Eliquis who presented to via [facility] as an inter facility transfer from [facility] s/p Fall. Per reports Pt was at a [facility] location when he exited his vehicle to assist the senior quality control technician in opening his vehicle door, when he stepped behind his vehicle he accidentally fell through the floor opening aprox 6ft. Pt. Reports falling straight down, negative LOC, negative head strike. Pt was unable to get up under his own strength, EMS was called and Pt was extricated via EMS/FD, immobilized and transported to [facility] ED. Imaging at OSH demonstrated a Grade 1 splenic injury, multiple bilateral rib fractures, and multiple pelvic fractures. Received K-centra, as well as PRBC X 2 and Calcium Gluc. [facility] was requested for transport to for orthopedics and trauma evaluations. EN route Pt received an additional unit of whole blood. On arrival to pt alert and oriented x 3, w/ GCS-15. On 4LNC, Labile blood pressures and received an additional PRBC X 1, FFP X 1 in ED. Pt was COTE scanned again here at [facility] given the absence of contrast at OSH. Pt. Had CVC and A-line placed in ED and was admitted to TICU for respiratory and hemodynamic monitoring. Hospital Course: 04/30: Admitted to TICU s/p fall with B/L rib fxs, Pelvic fx's, and questionable Grade 1 splenic injury s/p fall at [facility] location. 05/01: Titrated on levophed. CBC trended. Seen by EP for pacer, no interrogation to be performed 2/2 EOL device. Upright XR done. OR deferred. Dialyzed. 05/02: Went to OR with ortho. Pressor requirements improved. 05/04: No HD, bumped due to renal emergency. Plan for 05/05. Weaning levophed as able. 05/05: Underwent iHD. Continue to wean levophed to goal of SBP > 100. N/V after breakfast, tigan x 1 with improvement. 05/06: Levophed weaned off overnight, continues on Midodrine. Hgb 6.7 today AM, repeat Type and Screen ordered with 1U RBCs. Recurrent emesis 30min after breakfast 05/07: Most recent EKG Qtc 567, will repeat. Tolerating minimal PO intake, no episodes of emesis or nausea. Discussed possibility of Corpak placement with patient if N/V and intolerance of PO intake continues. 05/08: Consult psych and EP. Encourage PO intake, plan for post-pyloric Corpak if no improvement by Saturday. HD today. One-Liner: Pt is a 59 year old male with PMH of ESRD on HD MWF, T2DM, HFrEF and atrial fibrillation on eliquis who presented as a CAT 1 trauma as a transfer from [facility] and was admitted to the TICU for multiple traumatic injuries including Grade 1 splenic injury, multiple bilateral rib fractures, multiple pelvic fractures resulting from a 6 foot fall into auto mechanical bay. Course complicated by hypotension requiring multiple blood products including PRBC x3, whole blood x1, FFP x1, as well as levophed gtt. Acute overnight events: - BP intermittently 90 - low 100s/30 - 40s (decreased midodrine yesterday) - HD today - No nausea/emesis but minimal PO intake - BM x 3 this a.m. Vitals AND I/Os: 24 Hour Vitals Range: Vital sign ranges over the past 24 hours (retrieved 05/08/2024 at 7:42 AM): Tmax (24 hours): 98.6 ???F (37 ???C) Pulse Av.1 Min: 62 Max: 71 Systolic (24hrs), Av , Min:112 , Max:112 Diastolic (24hrs), Av, Min:50, Max:50 No data recorded Resp Av.1 Min: 9 Max: 21 SpO2 Av.7 % Min: 92 % Max: 100 % Afebrile, HR 60s, BP 100 - 1teens/ 30 -40s, saturating well on BiPAP, NC 2L. Desaturates to mid to high 80s on room air while asleep. Vital Signs: Patient Vitals for the past 24 hrs: BP Temp Temp src Pulse Resp SpO2 O2 Device O2 Flow Rate (l/min) 05/08/24 0700 -- -- -- 67 13 99 % -- -- 05/08/24 0600 -- -- -- 67 13 100 % -- -- 05/08/24 0500 -- -- -- 63 11 100 % -- -- 05/08/24 0400 -- 97.9 ???F (36.6 ???C) Oral 63 10 97 % BiPAP 2 05/08/24 0300 -- -- -- 65 9 98 % -- -- 05/08/24 0200 -- -- -- 65 14 100 % -- -- 05/08/24 0136 -- -- -- -- -- -- BiPAP 2 05/08/24 0100 -- -- -- 64 12 99 % -- -- 05/08/24 0000 -- 98.6 ???F (37 ???C) Oral 65 12 99 % BiPAP 2 05/07/242299 -- -- -- 66 15 97 % -- -- 05/07/242236 -- -- -- 68 16 99 % BiPAP 2 05/07/242199 -- -- -- 65 16 100 % -- -- 05/07/242099 -- -- -- 66 14 99 % -- -- 05/07/242005 -- -- -- 65 12 99 % Nasal cannula 2 05/07/241999 -- 98.2 ???F (36.8 ???C) Oral 65 13 96 % Nasal cannula 2 05/07/24 1800 -- -- -- 71 20 99 % -- -- 05/07/24 1657 -- -- -- 69 16 100 % Nasal cannula 2 05/07/24 1637 -- -- -- 63 21 99 % Nasal cannula 2 05/07/24 1600 -- 97.7 ???F (36.5 ???C) Oral 62 15 100 % Nasal cannula 2 05/07/24 1500 -- -- -- 63 17 98 % -- -- 05/07/24 1400 -- -- -- 62 21 100 % -- -- 05/07/24 1300 -- -- -- 62 12 100 % -- -- 05/07/24 1200 -- 97.6 ???F (36.4 ???C) Oral 66 17 100 % Nasal cannula 2 05/07/24 1124 -- -- -- 68 18 99 % Nasal cannula 2 05/07/24 1114 -- -- -- 66 20 100 % Nasal cannula 2 05/07/24 1100 -- -- -- 68 20 100 % -- -- 05/07/24 1015 -- -- -- 62 11 100 % -- -- 05/07/24 1000 -- -- -- 64 18 100 % -- -- 05/07/24 0900 -- -- -- 64 14 100 % -- -- 05/07/24 0854 112/50 -- -- -- -- -- -- -- 05/07/24 0803 -- -- -- 63 16 92 % Nasal cannula 2 05/07/24 0800 -- 98.4 ???F (36.9 ???C) Oral 63 16 92 % Nasal cannula 2 05/07/24 0751 -- -- -- 68 15 -- Nasal cannula 2 24 Hour I AND Os: In: 960 (6.7 mL/kg) [P.O.:60; I.V.:100 (0 mL/kg/hr)] Out: 0 (0 mL/kg) Net: 960 Weight: 142.4 kg PO: 60 mL Supplement: 600 mL UOP: Anuric (per patient) BM: No BM as of yet. Physical Exam: General: Sleeping comfortable. Wakes easily to voice. Lying in bed. In no acute distress. Neurological: AAOx4, GCS-15. Motor and sensory grossly intact. Somewhat depressed affect. HEENT: PERRL, EOMI, no conjunctival injection or scleral icterus. Cardiac: Regular rate and rhythm. S1/S2 audible. No murmurs/rubs/gallops. Peripheral pulses palpable and symmetrical bilaterally. Pulmonary: Clear to auscultation bilaterally, diminished breath sounds to bases. Saturating well on 2L NC. No wheezing, rhonchi, or rales. Abdomen: Large, rounded, soft, non-tender, non-distended. Pelvic binder in place. Extremities: SCDs. RLE with multiple sutured incision sites over distal lateral and medial thigh, all well approximated without any erythema or drainage. Distal pulses are 2+ and intact bilaterally. Tenderness on palpation and manipulation of RLE. Compartments soft but tender. Otherwise warm, well perfused. Moves all extremities spontaneously. Lab Data: 9.2 7.6 / 155 / 22.5 CBC: 05/08/2024: 4:11 AM 131 93 63 / 112 4.8 25 7.48 BMP: 05/08/2024: 4:11 AM BMP: BMP (last 3 years, up to 8 values) 05/08/2024 05/07/2024 05/06/2024 05/05/2024 05/04/2024 05/04/2024 05/03/2024 05/02/2024 4:11 AM 4:20 AM 4:42 AM 3:59 AM 9:47 PM 1:45 AM 3:58 AM 2:45 PM Na 131 132 132 128 130 130 132 131 K 4.8 4.6 4.4 5.2 5.3 5.1 5.3 5.5 Cl 93 94 95 91 92 95 96 98 CO2 25 24 25 25 24 23 24 19 Gap 18 19 16 17 19 17 17 20 Glu 112 99 95 90 148 184 246 293 BUN 63 55 44 79 74 61 43 31 Cr 7.48 6.91 5.69 8.72 8.31 7.69 6.81 5.71 Ca 7.7 7.8 7.7 7.8 7.7 7.8 8.1 8.4 eGFR 8 8 11 6 7 7 9 11 CBC: CBC (last 3 years, up to 8 values) 05/08/2024 05/07/2024 05/06/2024 05/06/2024 05/05/2024 05/04/2024 05/03/2024 05/03/2024 4:11 AM 4:20 AM 6:32 PM 4:42 AM 3:59 AM 1:45 AM 5:00 AM 3:58 AM WBC 9.2 7.1 8.1 7.0 10.2 10.0 10.5 10.4 RBC 2.35 2.40 2.61 2.13 2.24 2.27 2.18 2.16 Hgb 7.6 7.4 8.3 6.7 7.1 7.2 6.9 6.9 Hct 22.5 23.0 25.4 20.5 21.2 21.2 20.3 20.1 MCV 96 96 97 97 95 94 93 93 RDW 16.3 16.1 16.6 16.7 16.8 17.0 17.2 17.5 Plt 155 116 127 108 111 89 72 69 PT/PTT/INR: PT/PTT/INR (last 3 years, up to 8 values) 05/01/2024 05/01/2024 04/30/2024 4:51 PM 10:10 AM 8:44 PM aPTT 29 -- -- INR -- 1.16 1.29 Type AND Screen: Type AND Screen (Last result in the past 30 days) 05/06/2024 04/30/2024 04/30/2024 6:33 AM 5:21 PM 4:30 PM ABO Rh A Positive A Positive A Positive Screen Int. Negative -- Negative ABG: Arterial Blood Gases None BNP: No result for BNP Hepatic Panel: LFT's (last 3 years, up to 8 values) No lab values to display. Glucose: Fingerstick Glucose (last 72 hours) (Last 10 results in the past 72 hours) Glucose 05/07/24 2204 165 05/07/24 1650 153 05/07/24 1124 145 05/07/24 0744 111 05/06/24 2253 99 05/06/24 1750 99 05/06/24 1213 114 05/05/24 2040 106 05/05/24 1708 99 05/05/24 1147 115 A1c: No results found for: HBA1C TSH: No results found for: TSH Blood Culture: Blood Culture No lab values to display. Urine Culture: Urine Culture (last 1 year) No lab values to display. Respiratory Culture: Respiratory Culture, Misc No lab values to display. Wt Readings from Last 5 Encounters: 04/30/24 (!) 314 lb (142.4 kg) Imaging Results (over previous 24 hours): No new imaging over the past 24 hours. Assessment and Plan: Diagnosis s/p fall down ~ 6Ft hole: - Right L1-L3 TP Fx - Anterior tension ban disruption of T11 - Right superior/inferior pubic rami Fx w/ extension into acetab - Left scapular Fx w/ intramuscular shoulder hematoma - Bilateral sacral Ala Fx - Right 2,3,4,5,6,7,8 Rib Fx - Left 4,5,6,7,8 Rib Fx - Bilateral pulmonary contusions - Right pleural effusion - Trace hemoperitoneum - Right distal femur fx - Acute blood loss anemia - Hemorrhagic shock - Shock of unknown etiology Associated Hospital Diagnosis: - Hyperkalemia - Hypomagnesemia - Recurrent Nausea/Vomiting PMH: - Hyperparathyroidism - ARASH - CAROL - Atrial- Fibrillation - HTN - HLD - Pacer - GERD - ESRD - Depression - CKD - T2DM - CHF - Gastroparesis Home Medications: ASA 81mg daily Insulin NPH (70U BID) Pioglitazone 30mg daily Sertraline 100mg daily Amiodarone 200mg daily Sevelamer 1600mg TID Apixaban 5mg BID Atorvastatin 40mg daily Gabapentin 100mg qHS Midodrine 10mg with dialysis Omeprazole 40mg daily Metoclopramide 10mg QID Furosemide 40mg BID Isosorbide Mononitrate 20mg q12h Metoprolol 25mg Daily Incidental Findings: - Cholelithiasis - Indeterminate right adrenal nodule Plan: Neurological: # Acute post traumatic pain # Hx of Depression - Acetaminophen 1G Q6hrs sched - Oxycodone 5/10mg Q4hrs PRN - Lidocaine - 2 patch Q24h - Dilaudid 0.5 mg IV Q2H PRN for Physical Therapy will fall off the MAR today - Robaxin 750mg Q6H - Cont home Gabapentin, Zoloft - C/s psych - patient with depressed affect on exam, recent traumatic injury. Patient is amenable to speaking with psych. Cardiovascular: # Hx of HTN, HLD, CHF, Pacer, A-fib - Qtc 540 this a.m. from 567, s/p 1 g Mg yesterday - C/s EP for persistent prolonged QT after minimizing QT prolonging meds other than home med amiodarone - Ok to continue home Apixaban 5 mg BID PO for hx of atrial fibrillation - Will continue to hold home ASA (per patient only taken for general prophylaxis) - Continue TELE monitoring - Continue home Amio, Lipitor - Continue Midodrine 7.5 mg Q8H PO (at home pt only takes midodrine on dialysis days PRN), consider increasing if after blood pressures remain borderline - Continue midodrine 10 mg PRN before dialysis - Last echo 01/05, LVEF 60%, no need for repeat - Cardiology consulted for pacer interrogation given need for MRI -> seen by EP and per them would be ok for MRI as battery is - cannot be interrogated given age - see separate note from EP Respiratory: # Hx of ARASH - Saturating well on 2L NC, wean as able (pt not on home O2) - Maintain SpO2 > 92% - Continue pulse ox monitoring - Encourage incentive spirometry, advised patient on AM rounds - Requiring Bipap at bedtime for suspected ARASH, hypoventilation - Has home CPAP prescribed, noncompliant GI/Diet: # Hx of GERD # Hx of Gastroparesis - Diet: Full liquid diet + Dysphagia pureed L1 as pt not tolerating PO intake; Renal Boost per Nutrition - If continues to have minimal PO intake over the weekend, plan for post-pyloric Corpak on Saturday (May 11) - Qtc 540, continue to hold home Reglan - Tigan 100 mg IM Q12h PRN for nausea - Diazepam 2 mg IV Q8H PRN - second line for nausea (anecdotal evidence of efficacy for treating nausea in intestinal transplant patients) - Bowel reg: Discontinued Miralax (BM x 3 today), continue Senna 8.6 mg PO - Continue pantoprazole in place of home esomeprazole Renal/Electrolytes: # Hx of ESRD - F/u iCal for prolonged Qtc - HD today - Nephro recs: - HD MWF (// this week) - Epo with dialysis - Continue midodrine as above - mIVF: none given renal disease - BMP/Mg/P daily - Replace electrolytes as indicated - Maintain Mg >2, K >4 - Measure strict I AND O - Continue home Renvela Infectious Disease: - Afebrile, no leukocytosis - Monitor temperature and WBC for signs of infection Hematology: # Hemorrhagic shock - Hgb stable 7.6 from 7.4 - Type AND Screen 05/06, s/p 1U PRBC (05/06) - CBC daily - Maintain hemoglobin >7 Endocrine: # Hx of Hyperparathyroidism, T2DM - POCT 90-160 - sliding scale insulin QAC and at bedtime - POCT QAC and at bedtime - Pt states he no longer takes insulin at home, he takes ozempic only. Plan to restart on discharge. Musculoskeletal: # Pelvic Fx's # Right distal femur fx # Left Scap Fx S/p OR 05/02 - Progressive mobility - Ortho recs: following peripherally - NWB BLE - WBAT LUE - Ancef 3 g q8h - complete - Pelvic XR post-op - complete - Pain control: recommend multimodal - tylenol standing q6h, oxycodone q4h PRN, tramadol PRN, dilaudid PRN for breakthrough - May resume DVT PPX as per primary team -FU with Dr. Chu in 2 weeks at [facility] - PT/OT: - long term setting once medically cleared - Will continue to follow - PM AND R Consulted, appreciate recommendations - Ortho spine (05/01): - No acute spine interventions indicated Prophylaxis: - SCDs bilaterally - On therapeutic anticoagulation via home Eliquis Follow Up: - PCP: No primary care provider on file. - Ortho: with Dr. Chu in 2 weeks at [facility] LDA/Restraints: - PIV X 2 - L A-line - Consider removal this afternoon if blood pressures remain stable following dialysis - L Femoral CVC (removed 05/07) - RUE AVF Code Status: - Full Code Disposition: - Stepdown for telemetry given prolonged Qtc, can transfer to telemetry floor if necessary Patient seen and evaluated with Attending Surgeon Dr. Asencio. Please see attending attestation for final plan/recommendations. Gorge Reed MD Anesthesiology Medical Aide, PGY1 Teaching Physician Note: I saw and evaluated the patient. I personally obtained the kirby and critical portions of the history and physical exam. I reviewed the resident's documentation and discussed the patient with the resident. I agree with the resident's medical decision making as documented in the resident's note. Discuss with EP regading amiodarone given persistently high qtc despite stopping all other meds HD today Stay on telemetry (stepdown vs floor with monitoring) Check Ical. Encourage full liquid/puree If can't tolerate by Saturday will need postpyloric tube by fluoro Anticipate ltac vs snf next week depending on cardiac, dietary Farrah Asencio MD GLUCOSE, FINGERSTICK-IN OFFICE Collecte d: 05/08/2024 7:37 AM Status: F Source: THE [facility] SYSTEM TYPE CODE TESTS RESULT OUT OF RANGE REFERENCE UNITS LAB Mongolian GLUCOSE, POC 118 High 74-109 mg/dL Result Comment: Notified FRANNIE URIBE MD Performed By: #### [id number] ### # NURSING GLUCOSE PROGRAM [address] [place] [address], [id number] PROGRESS NOTES Observed: 05/08/2024 7:20 AM Status: COMPLETED Source: THE [facility] Progress Note Amado Tran [id number] A/P: PT is a 59 year old S/P Right femur retrograde nail, open reduction and internal fixation right femur, right sacroiliac percutaneous reduction and fixation with Dr. Chu on 05/02. - NWB BLE - Pain control: recommend multimodal - tylenol standing q6h, oxycodone q4h PRN, tramadol PRN, dilaudid PRN for breakthrough -PT/OT consult - DVT ppx: eliquis per primary -FU with Dr. Chu in 2 weeks at [facility] -Orthopaedics will continue to follow peripherally S: Doing well this AM. Pain moderately controlled. Incisions healing well. O: Vitals Recorded in This Encounter 05/08/2024 0200 05/08/2024 0300 05/08/2024 0400 05/08/2024 0500 05/08/2024 0600 Pulse: 65 65 63 63 67 Resp: 14 9 10 11 13 Temp: -- -- 97.9 ???F (36.6 ???C) -- -- Temp src: -- -- Oral -- -- SpO2: 100 % 98 % 97 % 100 % 100 % Pain Score: -- -- Asleep -- -- CBC/PT/INR 05/08/2024 05/07/2024 05/06/2024 05/06/2024 4:11 AM 4:20 AM 6:32 PM 4:42 AM WBC 9.2 7.1 8.1 7.0 RBC 2.35 2.40 2.61 2.13 Hgb 7.6 7.4 8.3 6.7 Hct 22.5 23.0 25.4 20.5 MCV 96 96 97 97 RDW 16.3 16.1 16.6 16.7 Plt 155 116 127 108 Basic Metabolic Panel 05/08/2024 05/07/2024 05/06/2024 4:11 AM 4:20 AM 4:42 AM Na 131 132 132 K 4.8 4.6 4.4 Cl 93 94 95 CO2 25 24 25 Gap 18 19 16 Glu 112 99 95 BUN 63 55 44 Cr 7.48 6.91 5.69 Ca 7.7 7.8 7.7 Mg 2.5 2.2 2.1 PO4 6.5 6.7 5.2 Exam: NAD, alert. RLE: +DP pulse SILT DP/SP/S/S/Tib Wiggles toes 5/5 EHL/FHL/DF/PF Incisions clean/dry/intact Octaviano Snyder MD, PGY-3 Orthopaedic Surgery [facility] For questions/issues: Patient will be followed by the A team, at 0700 the day following initial consultation. Please page: Ortho Team A: Dona Allred PGY1 Octaviano Snyder PGY3 Ortho Team B: Everett Woods PGY2 Stacy Beebe PGY2 Ortho Elective Team: Valente Donaldson PGY2 Tyler Lynn PGY3 Ortho Hand Team: Darren Rashid PGY4 Otoniel Felix PGY4 Between 5pm-7am, weekends, and holidays please page ortho consult pager with urgent/emergent issues, [phone] BASIC METABOLIC PANEL Collected: 2023 4:11 AM Status: F Source: THE [facility] TYPE CODE TESTS RESULT OUT OF RANGE REFERENCE UNITS LAB GLU GLU 112 High 74-109 mg/dL LAB NA3 NA 131 Low 136-145 mmol/L LAB POT K 4.8 3.5-5.0 mmol/L LAB CO2 CO2 25 21-31 mmol/L LAB CHLOR CL 93 Low 98-107 mmol/L LAB BUN BUN 63 High 7-25 mg/dL LAB CREAT CREAT 7.48 High 0.70-1.30 mg/dL LAB CA CA 7.7 Low 8.6-10.3 mg/dL LAB ANION GAP ANION GAP 18 10-20 LAB eGFR ESTIMATED GFR (CKD-EPI) 8 Low >=60 mL/min/1 .73sqm Result Comment: 2020 CKD EPI Equation using Creatinine without Race Comment: Estimated glomerular filtration rate (eGFR) is calculated without a race coefficient. Values should be interpreted in the context of the patient's full clinical presentation. Reference: 1. Christophe C, Sagrario M, Gena YUAN, et al.. A Unifying Approach for GFR Estimation: Recommendations of the NKF-ASN Task Force on Reassessing the Inclusion of Race in Diagnosing Kidney Disease. [place] Journal of Kidney Diseases 2021;79(2):268- 88.e1. 2. N Engl J Med 1 Vol. 385 Issue 19 Pages 9278-6622 Performed By: #### PHOS, MG, CH8 #### [facility] [address] [place] [address], MAGNESIUM Collected: 4 4:11 AM Status: F Source: THE [facility] SYSTEM TYPE CODE TESTS RESULT OUT OF RANGE REFERENCE UNITS LAB mag MG 2.5 1.9-2.7 mg/dL Performed By: #### PHOS, MG, CH8 #### [facility] [address] [place] [address], PHOSPHORUS Collected: 4 4:11 AM Status: F Source: [facility] SYSTEM TYPE CODE TESTS RESULT OUT OF RANGE REFERENCE UNITS LAB PHOS PHOS 6.5 High 2.5-5.0 mg/dL Performed By: #### PHOS, MG, CH8 #### [facility] [address] [place] [address], COMPLETE BLOOD COUNT Collected: 024 4:11 AM Status: F Source: [facility] SYSTEM TYPE CODE TESTS RESULT OUT OF RANGE REFERENCE UNITS LAB WBC WBC 9.2 4.5-11.5 K/uL LAB RBC RBC 2.35 Low 4.50-5.90 M/uL LAB HGB HGB 7.6 Low 13.9-16.3 g/dL LAB HCT HCT 22.5 Low 41.0-53.0 % LAB MCV MCV 96 80-100 fL LAB MCH MCH 32.4 26.0-34.0 pg LAB MCHC MCHC 33.9 32.0-35.9 g/dL LAB PLT PLT 155 150-400 K/uL LAB RDW RDW-CV 16.3 High 11.5-14.5 % LAB MPV MPV 9.2 7.5-11.2 fL Performed By: #### CBC #### [facility] [address] [place], [address] GLUCOSE, FINGERSTICK-IN OFFICE Collecte d: 05/07/2024 10:04 PM Status: F Source: [facility] TYPE CODE TESTS RESULT OUT OF RANGE REFERENCE UNITS LAB Mong[place]ian GLUCOSE, POC 165 High 74-109 mg/dL Performed By: #### [id number] ### # NURSING GLUCOSE PROGRAM [address] [place], [address] PROGRESS NOTES Observed: 05/07/2024 5:14 PM Status: COMPLETED Source: [facility] Nephrology Follow-up Note Amado Tran 59 year old 314 lbs MRN/Room: [id number]/AC5 Subjective: HD today complicated by access infiltration For HD tomorrow. Objective: Meds: midodrine 7.5 mg Every 8 hours folic acid 1 mg Daily [START ON 05/11/2024] folic acid 1 mg Daily vitamin D2 ergocalciferol 50,000 Units Q7 Days cholecalciferol 1,000 Units Daily Normal consistency 2x Daily with Meals Normal consistency Daily with breakfast Apixaban 5 mg 2x Daily polyethylene glycol 17 g BID Sonali-Riri RX 1 Tablet Daily insulin regular 4-14 Units 4x Daily AC AND HS methocarbamol 750 mg Every 6 hours epoetin antione-epbx 10,000 Units Q M, W AND F acetaminophen 1,000 mg q6h nystatin 2x Daily albuterol 2.5 mg QID RT sevelamer carbonate 800 mg 3x Daily with Meals amiodarone 200 mg Daily atorvastatin 40 mg At Bedtime gabapentin 100 mg At Bedtime pantoprazole 40 mg Daily 30 min before breakfast sertraline 100 mg Daily lidocaine 2 Patch Every 24 hours senna 8.6 mg At Bedtime HYDROmorphone HCl PF 0.5 mg Q2H PRN trimethobenzamide 100 mg Q12H PRN midodrine 10 mg Daily PRN albuterol 2.5 mg Q4H PRN oxyCODONE 10 mg Q4H PRN oxyCODONE 5 mg Q4H PRN dextrose iv for hypoglycemia orderable 125 mL PRN Or glucagon 1 mg PRN Or dextrose 15 g of glucose PRN Or dextrose 30 g of glucose PRN Vital sign ranges over the past 24 hours (retrieved 05/07/2024 at 5:14 PM): Tmax (24 hours): 98.4 ???F (36.9 ???C) Pulse Av.2 Min: 61 Max: 72 Systolic (24hrs), Av , Min:112 , Max:112 Diastolic (24hrs), Av, Min:50, Max:50 No data recorded Resp Av.1 Min: 11 Max: 21 SpO2 Av.2 % Min: 92 % Max: 100 % Patient Vitals for the past 24 hrs: BP Temp Temp src Pulse Resp SpO2 O2 Device O2 Flow Rate (l/min) 05/07/24 1657 -- -- -- 69 16 100 % Nasal cannula 2 05/07/24 1637 -- -- -- 63 21 99 % Nasal cannula 2 05/07/24 1600 -- 97.7 ???F (36.5 ???C) Oral 62 15 100 % Nasal cannula 2 05/07/24 1500 -- -- -- 63 17 98 % -- -- 05/07/24 1400 -- -- -- 62 21 100 % -- -- 05/07/24 1300 -- -- -- 62 12 100 % -- -- 05/07/24 1200 -- 97.6 ???F (36.4 ???C) Oral 66 17 100 % Nasal cannula 2 05/07/24 1124 -- -- -- 68 18 99 % Nasal cannula 2 05/07/24 1114 -- -- -- 66 20 100 % Nasal cannula 2 05/07/24 1100 -- -- -- 68 20 100 % -- -- 05/07/24 1015 -- -- -- 62 11 100 % -- -- 05/07/24 1000 -- -- -- 64 18 100 % -- -- 05/07/24 0900 -- -- -- 64 14 100 % -- -- 05/07/24 0854 112/50 -- -- -- -- -- -- -- 05/07/24 0803 -- -- -- 63 16 92 % Nasal cannula 2 05/07/24 0800 -- 98.4 ???F (36.9 ???C) Oral 63 16 92 % Nasal cannula 2 05/07/24 0751 -- -- -- 68 15 -- Nasal cannula 2 05/07/24 0700 -- -- -- 64 -- 100 % -- -- 05/07/24 0600 -- -- -- 67 -- 100 % -- -- 05/07/24 0500 -- -- -- 61 -- 100 % -- -- 05/07/24 0400 -- 98.4 ???F (36.9 ???C) Oral 61 -- 99 % BiPAP 2 05/07/24299 -- -- -- 62 -- 100 % -- -- 05/07/242 -- -- -- -- -- -- BiPAP 2 05/07/24 020 -- -- -- 63 -- 100 % -- -- 05/07/24 0100 -- -- -- 64 -- 100 % -- -- 05/07/24 0000 -- 98.2 ???F (36.8 ???C) Oral 63 -- 97 % BiPAP 2 05/06/242299 -- -- -- 66 -- 100 % -- -- 05/06/242199 -- -- -- 71 -- 100 % -- -- 05/06/242117 -- -- -- -- -- -- BiPAP 2 05/06/242099 -- -- -- 68 15 100 % -- -- 05/06/241999 -- 98.1 ???F (36.7 ???C) Oral 72 15 100 % Nasal cannula 2 05/06/241922 -- -- -- 71 16 100 % -- -- 05/06/241914 -- -- -- 67 12 100 % Nasal cannula 2 05/06/24 190 -- -- -- 67 14 100 % -- -- 05/06/24 1800 -- -- -- 66 -- 100 % -- -- Intake/Output Summary (Last 24 hours) at 05/07/2024 1714 Last data filed at 05/07/2024 1600 Gross per 24 hour Intake 960 ml Output 0 ml Net 960 ml General appearance: no distress Eyes: non-icteric Skin: no apparent rash Heart: s1s2 regular Lungs: reduced breathing sounds no wheezing/crackles Abdomen: soft, nt/nd Extremities: trace edema bilat Caceres Neuro: No FND,no asterixis Access RUE AVG with bruit and thrill. Echymosis. Blood Labs: Arterial Blood Gases None CBC/PT/INR 05/07/2024 05/06/2024 05/06/2024 05/05/2024 4:20 AM 6:32 PM 4:42 AM 3:59 AM WBC 7.1 8.1 7.0 10.2 RBC 2.40 2.61 2.13 2.24 Hgb 7.4 8.3 6.7 7.1 Hct 23.0 25.4 20.5 21.2 MCV 96 97 97 95 RDW 16.1 16.6 16.7 16.8 Plt 116 127 108 111 Basic Metabolic Panel 05/07/2024 05/06/2024 05/05/2024 05/04/2024 4:20 AM 4:42 AM 3:59 AM 9:47 PM Na 132 132 128 130 K 4.6 4.4 5.2 5.3 Cl 94 95 91 92 CO2 24 25 25 24 Gap 19 16 17 19 Glu 99 95 90 148 BUN 55 44 79 74 Cr 6.91 5.69 8.72 8.31 Ca 7.8 7.7 7.8 7.7 Mg 2.2 2.1 2.3 -- PO4 6.7 5.2 6.9 -- ASSESSMENT: Amado Tran is a 59 year old with PMHx of Pacemaker, ARASH, HLD, GERD, Depression, ESRD (HD MWF, RUE AV Fistula), CKD, HTN, T2DM, Systolic HF, and atrial fibrillation on Eliquis presenting to the ED after falling into a 6 foot hole. Multiple fractures. ESRD on HD MWF - Access: RUE AVG - electrolytes: hyponatremia from impaired free water deficit - anemia: from OR and CKD, hgb below goal - CKDMBD: phos elevated, calcium low albumin unknown. - for Midodrine before HD - EPO with HD. #Ortho surgery 05/02 #Needs spine surgery RECOMMENDATIONS: - Plan for HD tomorrow then MWF. - Continue midodrine prior to HD. - Renal MV and Renal diet. Ayleen Kurtz MD Nephrology Fellow Daytime / Weekend Renal Pager [phone] After 7 pm Emergencies Pager [phone] Attending/Teaching Physician Note: I saw and evaluated the patient, I personally obtained kirby and critical portions of the history and physical exam. I reviewed the fellow's documentation and discussed the patient with the fellow. I agree with the fellow's medical decision making as documented in the fellow's note. Additional findings, impression, and plan are as follows: Access infiltrated soon after HD initiated, then unable to be re-cannulated so pt did not get HD treatment today ESKD s/p fall admitted w/ mulitple fractures - will attempt HD session tomorrow Alan Miranda MD GLUCOSE, FINGERSTICK-IN OFFICE Collecte d: 05/07/2024 4:50 PM Status: F Source: [facility] TYPE CODE TESTS RESULT OUT OF RANGE REFERENCE UNITS LAB [place] GLUCOSE, POC 153 High 74-109 mg/dL Performed By: #### [id number] ### # NURSING GLUCOSE PROGRAM [address] [place], [address] GLUCOSE, FINGERSTICK-IN OFFICE Collecte d: 05/07/2024 11:24 AM Status: F Source: [facility] TYPE CODE TESTS RESULT OUT OF RANGE REFERENCE UNITS LAB [place] GLUCOSE, POC 145 High 74-109 mg/dL Performed By: #### [id number] ### # NURSING GLUCOSE PROGRAM [address] [place], [address] PROGRESS NOTES Observed: 05/07/2024 10:18 AM Status: COMPLETED Source: [facility] 13 minutes of HD completed, patient moved arm over head and infiltrated venous needle, unable to recannulate, no fluid was removed, net positive 200 mLs. GLUCOSE, FINGERSTICK-IN OFFICE Collecte d: 05/07/2024 7:44 AM Status: F Source: [facility] SYSTEM TYPE CODE TESTS RESULT OUT OF RANGE REFERENCE UNITS LAB [place] GLUCOSE, POC 111 High 74-109 mg/dL Performed By: #### [id number] ### # NURSING GLUCOSE PROGRAM [address] [place], [address] PROGRESS NOTES Observed: 05/07/2024 7:37 AM Status: COMPLETED Source: [facility] DEPARTMENT OF SURGERY DIVISION OF TRAUMA, BURN, AND CRITICAL CARE TRAUMA INTENSIVE CARE UNIT (TICU) DAILY PROGRESS NOTE Patient: Amado Tran, 59 year old, male : 1965 Admit Date: 04/30/2024 Room: [facility] Today's Date: 05/07/2024, Length of stay: 7 day(s) Code Status: Full Code Height: 5' 9 Weight: 142.4 kg BMI: 46.37 SURGICAL ICU - STAFF NOTE Patient seen and examined on 05/07/2024 Interval History/Events: Background: Amado Tran is a 59 year old y/o male with PMH of Hyperparathyroidism, Pacemaker, ARASH, CAROL, HLD, GERD, Depression, ESRD (HD MWF, RUE AV Fistula), CKD, HTN, T2DM, Systolic HF, and atrial fibrillation on Eliquis who presented to via [facility] as an inter facility transfer from [facility] s/p Fall. Per reports Pt was at a instant oil change location when he exited his vehicle to assist the senior quality control technician in opening his vehicle door, when he stepped behind his vehicle he accidentally fell through the floor opening aprox 6ft. Pt. Reports falling straight down, negative LOC, negative head strike. Pt was unable to get up under his own strength, EMS was called and Pt was extricated via EMS/FD, immobilized and transported to [facility] ED. Imaging at OSH demonstrated a Grade 1 splenic injury, multiple bilateral rib fractures, and multiple pelvic fractures. Received K-centra, as well as PRBC X 2 and Calcium Gluc. [facility] was requested for transport to for orthopedics and trauma evaluations. EN route Pt received an additional unit of whole blood. On arrival to pt alert and oriented x 3, w/ GCS-15. On 4LNC, Labile blood pressures and received an additional PRBC X 1, FFP X 1 in ED. Pt was COTE scanned again here at [facility] given the absence of contrast at OSH. Pt. Had CVC and A-line placed in ED and was admitted to TICU for respiratory and hemodynamic monitoring. Hospital Course: 04/30: Admitted to TICU s/p fall with B/L rib fxs, Pelvic fx's, and questionable Grade 1 splenic injury s/p fall at instant oil change location. 05/01: Titrated on levophed. CBC trended. Seen by EP for pacer, no interrogation to be performed 2/2 EOL device. Upright XR done. OR deferred. Dialyzed. 05/02: Went to OR with ortho. Pressor requirements improved. 05/04: No HD, bumped due to renal emergency. Plan for 05/05. Weaning levophed as able. 05/05: Underwent iHD. Continue to wean levophed to goal of SBP > 100. N/V after breakfast, tigan x 1 with improvement. 05/06: Levophed weaned off overnight, continues on Midodrine. Hgb 6.7 today AM, repeat Type and Screen ordered with 1U RBCs. Recurrent emesis 30min after breakfast 05/07: Most recent EKG Qtc 567, will repeat. Tolerating minimal PO intake, no episodes of emesis or nausea. Discussed possibility of Corpak placement with patient if N/V and intolerance of PO intake continues. One-Liner: Pt is a 59 year old male with PMH of ESRD on HD MWF, T2DM, HFrEF and atrial fibrillation on eliquis who presented as a CAT 1 trauma as a transfer from [facility] and was admitted to the TICU for multiple traumatic injuries including Grade 1 splenic injury, multiple bilateral rib fractures, multiple pelvic fractures resulting from a 6 foot fall into auto mechanical bay. Course complicated by hypotension requiring multiple blood products including PRBC x3, whole blood x1, FFP x1, as well as levophed gtt. Acute overnight events: - No acute events overnight - Remains off levophed - HD today, should get PRN dose of midodrine before dialysis - Nephro recs: - HD T// this week, plan to transition back to home schedule (MWF) next week - No episodes of emesis this morning - Still no BM Drips: Remains off levophed. Lines, Tubes, Drains: CVC - left femoral, RUE fistula, left art line 2 x PIV on left Vitals AND I/Os: 24 Hour Vitals Range: Vital sign ranges over the past 24 hours (retrieved 05/07/2024 at 7:41 AM): Tmax (24 hours): 98.5 ???F (36.9 ???C) Pulse Av.2 Min: 61 Max: 79 Systolic (24hrs), Av , Min:120 , Max:142 Diastolic (24hrs), Av, Min:40, Max:57 No data recorded Resp Av.2 Min: 11 Max: 22 SpO2 Av.3 % Min: 95 % Max: 100 % Afebrile, HDS (diastolics on the lower end), saturating well on BiPAP, NC 2L. Desaturates to mid to high 80s on room air while asleep. Vital Signs: Patient Vitals for the past 24 hrs: BP Temp Temp src Pulse Resp SpO2 O2 Device O2 Flow Rate (l/min) 05/07/24 0400 -- 98.4 ???F (36.9 ???C) Oral 61 -- 99 % -- -- 05/07/24299 -- -- -- 62 -- 100 % -- -- 05/07/24221 -- -- -- -- -- -- BiPAP 2 05/07/24199 -- -- -- 63 -- 100 % -- -- 05/07/24 010 -- -- -- 64 -- 100 % -- -- 05/07/24 0000 -- 98.2 ???F (36.8 ???C) Oral 63 -- 97 % BiPAP 2 05/06/242299 -- -- -- 66 -- 100 % -- -- 05/06/242199 -- -- -- 71 -- 100 % -- -- 05/06/242117 -- -- -- -- -- -- BiPAP 2 05/06/242099 -- -- -- 68 15 100 % -- -- 05/06/241999 -- 98.1 ???F (36.7 ???C) Oral 72 15 100 % Nasal cannula 2 05/06/241922 -- -- -- 71 16 100 % -- -- 10/23/24 1915 -- -- -- 67 12 100 % Nasal cannula 2 05/06/24 1900 -- -- -- 67 14 100 % -- -- 05/06/24 1800 -- -- -- 66 -- 100 % -- -- 05/06/24 1700 -- -- -- 66 -- 99 % -- -- 05/06/24 1611 -- -- -- 66 16 100 % -- -- 05/06/24 1600 -- 98.1 ???F (36.7 ???C) Oral 68 16 100 % Nasal cannula 2 05/06/24 1500 -- -- -- 66 -- 100 % -- -- 05/06/24 1400 -- -- -- 66 17 98 % -- -- 05/06/24 1350 142/57 97.8 ???F (36.6 ???C) Oral 67 17 100 % Nasal cannula 2 05/06/24 1300 -- -- -- 63 16 99 % -- -- 05/06/24 1251 120/40 97.6 ???F (36.4 ???C) Oral 61 11 98 % Nasal cannula 2 05/06/24 1236 123/45 97.6 ???F (36.4 ???C) Oral 61 14 100 % Nasal cannula 2 05/06/24 1200 -- -- -- 62 15 100 % Nasal cannula 2 05/06/24 1136 -- -- -- 62 13 100 % Nasal cannula 2 05/06/24 1126 -- -- -- 67 14 100 % Nasal cannula 2 05/06/24 1100 -- -- -- -- -- 99 % -- -- 05/06/24 1000 -- -- -- -- -- 96 % -- -- 05/06/24 0900 -- -- -- 72 16 100 % -- -- 05/06/24 0800 -- 98.5 ???F (36.9 ???C) Oral 79 22 95 % Nasal cannula 2 24 Hour I AND Os: In: 325 (2.3 mL/kg) Out: - (0 mL/kg) Net: 325 Weight: 142.4 kg PO: 0 UOP: Anuric (per patient); BM: No BM as of yet. Physical Exam: General: Awake and alert. Sitting upright in bed. In no acute distress. Neurological: AAOx4, GCS-15. HEENT: PERRL, EOMI, no conjunctival injection or scleral icterus. Cardiac: Regular rate and rhythm. S1/S2 audible. No murmurs/rubs/gallops. Peripheral pulses palpable and symmetrical bilaterally. Pulmonary: Clear to auscultation bilaterally, diminished breath sounds to bases. Saturating well on 2L NC. No wheezing, rhonchi, or rales. Abdomen: Large, rounded, soft, non-tender, non-distended. Pelvic binder in place. Extremities: RLE has dressings in place over the distal and medial thigh which appear clean/dry/intact. Distal pulses are 2+ and intact bilaterally. Tenderness on palpation and manipulation of RLE. Compartments soft but tender and mildly swollen compared to contralateral extremity. Otherwise warm, well perfused. Moves all extremities spontaneously. Lab Data: 7.1 7.4 / 116 / 23.0 CBC: 05/07/2024: 4:20 AM 132 94 55 / 99 4.6 24 6.91 BMP: 05/07/2024: 4:20 AM BMP: BMP (last 3 years, up to 8 values) 05/07/2024 05/06/2024 05/05/2024 05/04/2024 05/04/2024 05/03/2024 05/02/2024 05/02/2024 4:20 AM 4:42 AM 3:59 AM 9:47 PM 1:45 AM 3:58 AM 2:45 PM 8:50 AM Na 132 132 128 130 130 132 131 133 K 4.6 4.4 5.2 5.3 5.1 5.3 5.5 4.3 Cl 94 95 91 92 95 96 98 100 CO2 24 25 25 24 23 24 19 -- Gap 19 16 17 19 17 17 20 -- Glu 99 95 90 148 184 246 293 190 BUN 55 44 79 74 61 43 31 -- Cr 6.91 5.69 8.72 8.31 7.69 6.81 5.71 -- Ca 7.8 7.7 7.8 7.7 7.8 8.1 8.4 -- eGFR 8 11 6 7 7 9 11 -- CBC: CBC (last 3 years, up to 8 values) 05/07/2024 05/06/2024 05/06/2024 05/05/2024 05/04/2024 05/03/2024 05/03/2024 05/02/2024 4:20 AM 6:32 PM 4:42 AM 3:59 AM 1:45 AM 5:00 AM 3:58 AM 2:45 PM WBC 7.1 8.1 7.0 10.2 10.0 10.5 10.4 15.2 RBC 2.40 2.61 2.13 2.24 2.27 2.18 2.16 2.72 Hgb 7.4 8.3 6.7 7.1 7.2 6.9 6.9 8.5 Hct 23.0 25.4 20.5 21.2 21.2 20.3 20.1 25.6 MCV 96 97 97 95 94 93 93 94 RDW 16.1 16.6 16.7 16.8 17.0 17.2 17.5 17.6 Plt 116 127 108 111 89 72 69 83 PT/PTT/INR: PT/PTT/INR (last 3 years, up to 8 values) 05/01/2024 05/01/2024 04/30/2024 4:51 PM 10:10 AM 8:44 PM aPTT 29 -- -- INR -- 1.16 1.29 Type AND Screen: Type AND Screen (Last result in the past 30 days) 05/06/2024 04/30/2024 04/30/2024 6:33 AM 5:21 PM 4:30 PM ABO Rh A Positive A Positive A Positive Screen Int. Negative -- Negative ABG: Arterial Blood Gases None BNP: No result for BNP Hepatic Panel: LFT's (last 3 years, up to 8 values) No lab values to display. Glucose: Fingerstick Glucose (last 72 hours) (Last 10 results in the past 72 hours) Glucose 05/06/24 2253 99 05/06/24 1750 99 05/06/24 1213 114 05/05/24 2040 106 05/05/24 1708 99 05/05/24 1147 115 05/05/24 0756 111 05/04/24 2039 168 05/04/24 1653 192 05/04/24 1156 213 A1c: No results found for: HBA1C TSH: No results found for: TSH Blood Culture: Blood Culture No lab values to display. Urine Culture: Urine Culture (last 1 year) No lab values to display. Respiratory Culture: Respiratory Culture, Misc No lab values to display. Wt Readings from Last 5 Encounters: 04/30/24 (!) 314 lb (142.4 kg) Imaging Results (over previous 24 hours): No new imaging over the past 24 hours. Assessment and Plan: Diagnosis s/p fall down ~ 6Ft hole: - Right L1-L3 TP Fx - Anterior tension ban disruption of T11 - Right superior/inferior pubic rami Fx w/ extension into acetab - Left scapular Fx w/ intramuscular shoulder hematoma - Bilateral sacral Ala Fx - Right 2,3,4,5,6,7,8 Rib Fx - Left 4,5,6,7,8 Rib Fx - Bilateral pulmonary contusions - Right pleural effusion - Trace hemoperitoneum - Right distal femur fx - Acute blood loss anemia - Hemorrhagic shock - Shock of unknown etiology Associated Hospital Diagnosis: - Hyperkalemia - Hypomagnesemia - Recurrent Nausea/Vomiting PMH: - Hyperparathyroidism - ARASH - CAROL - Atrial- Fibrillation - HTN - HLD - Pacer - GERD - ESRD - Depression - CKD - T2DM - CHF - Gastroparesis Home Medications: ASA 81mg daily Insulin NPH (70U BID) Pioglitazone 30mg daily Sertraline 100mg daily Amiodarone 200mg daily Sevelamer 1600mg TID Apixaban 5mg BID Atorvastatin 40mg daily Gabapentin 100mg qHS Midodrine 10mg with dialysis Omeprazole 40mg daily Metoclopramide 10mg QID Furosemide 40mg BID Isosorbide Mononitrate 20mg q12h Metoprolol 25mg Daily Incidental Findings: - Cholelithiasis - Indeterminate right adrenal nodule Plan: Neurological: # Acute post traumatic pain # Hx of Depression - Acetaminophen 1G Q6hrs sched - Oxycodone 5/10mg Q4hrs PRN - Lidocaine - 2 patch Q24h - Dilaudid 0.5 mg IV Q2H PRN for Physical Therapy - Robaxin 750mg Q6H - Cont home Gabapentin, Zoloft Cardiovascular: # Hx of HTN, HLD, CHF, Pacer, A-fib - Remains off Levophed - Repeat EKG - 1 g Mg for prolonged Qtc x 1 - Ok to continue home Apixaban 5 mg BID PO for hx of atrial fibrillation - Will continue to hold home ASA (per patient only taken for general prophylaxis), Hgb 7.4 from 8.3, will reassess tomorrow - Continue TELE monitoring - Continue home Amio, Lipitor - Decrease Midodrine to 7.5 mg Q8H PO (at home pt only takes midodrine on dialysis days PRN) -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 transfer from [facility] s/p Fall. Per reports Pt was at a instant oil change location when he exited his vehicle to assist the senior quality control technician in opening his vehicle door, when he stepped behind his vehicle he accidentally fell through the floor opening aprox 6ft. Pt. Reports falling straight down, negative LOC, negative head strike. Pt was unable to get up under his own strength, EMS was called and Pt was extricated via EMS/FD, immobilized and transported to [facility] ED. Imaging at OSH demonstrated a Grade 1 splenic injury, multiple bilateral rib fractures, and multiple pelvic fractures. Received K-centra, as well as PRBC X 2 and Calcium Gluc. [facility] was requested for transport to for orthopedics and trauma evaluations. EN route Pt received an additional unit of whole blood. On arrival to pt alert and oriented x 3, w/ GCS-15. On 4LNC, Labile blood pressures and received an additional PRBC X 1, FFP X 1 in ED. Pt was COTE scanned again here at [facility] given the absence of contrast at OSH. Pt. Had CVC and A-line placed in ED and was admitted to TICU for respiratory and hemodynamic monitoring. Hospital Course: 04/30: Admitted to TICU s/p fall with B/L rib fxs, Pelvic fx's, and questionable Grade 1 splenic injury s/p fall at instant oil change location. 05/01: Titrated on levophed. CBC trended. Seen by EP for pacer, no interrogation to be performed 2/2 EOL device. Upright XR done. OR deferred. Dialyzed. 05/02: Went to OR with ortho. Pressor requirements improved. 05/04: No HD, bumped due to renal emergency. Plan for 05/05. Weaning levophed as able. 05/05: Underwent iHD. Continue to wean levophed to goal of SBP > 100. N/V after breakfast, tigan x 1 with improvement. 05/06: Levophed weaned off overnight, continues on Midodrine. Hgb 6.7 today AM, repeat Type and Screen ordered with 1U RBCs. Recurrent emesis 30min after breakfast One-Liner: Pt is a 59 year old male with PMH of ESRD on HD MWF, T2DM, HFrEF and atrial fibrillation on eliquis who presented as a CAT 1 trauma as a transfer from [facility] and was admitted to the TICU for multiple traumatic injuries including Grade 1 splenic injury, multiple bilateral rib fractures, multiple pelvic fractures resulting from a 6 foot fall into auto mechanical bay. Course complicated by hypotension requiring multiple blood products including PRBC x3, whole blood x1, FFP x1, as well as levophed gtt. Acute overnight events: - No acute events overnight - Levophed at 0 mcg/kg/min today AM - Taking PRN Oxy 5-10 mg Q4H - states that this helps with left shoulder and back pain. - States that PRN Dilaudid helps with participation with PT/OT. - Nephro recs: - HD yesterday (05/05) - Continue midodrine prior to HD - Renal MV and Renal diet - HD T// this week, plan to transition back to home schedule (MWF) next week - No emesis overnight; emesis after breakfast today AM (nonbloody, nonbilious, mainly undigested food) - No BM since admission Drips: Levophed off Lines, Tubes, Drains: CVC - left femoral, RUE fistula, left art line 2 x PIV on left Vitals AND I/Os: 24 Hour Vitals Range: Vital sign ranges over the past 24 hours (retrieved 05/06/2024 at 7:24 AM): Tmax (24 hours): 98.3 ???F (36.8 ???C) Pulse Av.8 Min: 58 Max: 73 No data recorded. No data recorded. No data recorded Resp Av.8 Min: 9 Max: 24 SpO2 Av.6 % Min: 87 % Max: 100 % Vital Signs: Patient Vitals for the past 24 hrs: Temp Temp src Pulse Resp SpO2 O2 Device O2 Flow Rate (l/min) 05/06/24 0715 -- -- 69 15 100 % Nasal cannula 2 05/06/24 0700 -- -- 65 15 100 % -- -- 05/06/24 0600 -- -- 64 10 98 % -- -- 05/06/24 0500 -- -- 67 10 96 % -- -- 05/06/24 0400 -- -- 69 13 94 % -- -- 05/06/24 0300 -- -- 65 12 98 % -- -- 05/06/24 0200 -- -- 68 11 87 % -- -- 05/06/24 0103 -- -- 70 20 99 % BiPAP 2 05/06/24 0100 -- -- 67 17 99 % -- -- 05/06/24 0000 -- -- 69 14 100 % -- -- 05/05/24 2300 -- -- 67 11 100 % -- -- 05/05/24 2200 -- -- 69 14 98 % -- -- 05/05/242099 -- -- 73 18 98 % -- -- 05/05/242012 -- -- 71 18 100 % Nasal cannula 2 05/05/242001 -- -- 73 24 100 % Nasal cannula 2 05/05/241999 -- -- 72 20 100 % -- -- 05/05/24 1900 -- -- 66 16 98 % -- -- 05/05/24 181 -- -- 69 13 100 % -- -- 05/05/24 1800 -- -- 69 9 100 % -- -- 05/05/24 1654 -- -- 69 16 100 % Nasal cannula 2 05/05/24 1641 -- -- 69 20 98 % Nasal cannula 2 05/05/24 1600 98.3 ???F (36.8 ???C) Oral 70 16 97 % Nasal cannula 2 05/05/24 1500 -- -- 71 14 100 % -- -- 05/05/24 1400 -- -- 67 13 100 % -- -- 05/05/24 1300 -- -- 65 19 100 % -- -- 05/05/24 1233 -- -- 64 14 100 % Nasal cannula 2 05/05/24 1200 98.3 ???F (36.8 ???C) Axillary 67 9 100 % Nasal cannula -- 05/05/24 1100 -- -- 63 15 100 % -- -- 05/05/24 1000 -- -- -- -- -- Nasal cannula -- 05/05/24 0914 -- -- 58 13 100 % Nasal cannula 2 05/05/24 0800 97.7 ???F (36.5 ???C) Axillary -- -- -- Nasal cannula 2 24 Hour I AND Os: In: 242.4 (1.7 mL/kg) [P.O.:240; I.V.:2.4 (0 mL/kg/hr)] Out: 1500 (10.5 mL/kg) Net: -1257.6 Weight: 142.4 kg PO: 120 x2 UOP: Anuric (per patient); 1500cc removed during iHD yesterday Physical Exam: General: Awake and alert. Sitting upright in bed. Neurological: AAOx4, GCS-15. HEENT: PERRL, EOMI, no conjunctival injection or scleral icterus. Cardiac: Regular rate and rhythm. S1/S2 audible. No murmurs/rubs/gallops. Peripheral pulses palpable and symmetrical bilaterally. Pulmonary: Clear to auscultation bilaterally, diminished breath sounds to bases. Saturating well on 2L NC. No wheezing, rhonchi, or rales. Pulling ~750cc on IS Abdomen: Large, rounded, soft, non-tender, non-distended. Pelvic binder in place. Extremities: RLE has dressings in place over the distal and medial thigh which appear clean/dry/intact. Distal pulses are 2+ and intact bilaterally. Tenderness on palpation and manipulation of RLE. Compartments soft but tender and mildly swollen compared to contralateral extremity. Otherwise warm, well perfused. Lab Data: 7.0 6.7 / 108 / 20.5 CBC: 05/06/2024: 4:42 AM 132 95 44 / 95 4.4 25 5.69 BMP: 05/06/2024: 4:42 AM BMP: BMP (last 3 years, up to 8 values) 05/06/2024 05/05/2024 05/04/2024 05/04/2024 05/03/2024 05/02/2024 05/02/2024 05/02/2024 4:42 AM 3:59 AM 9:47 PM 1:45 AM 3:58 AM 2:45 PM 8:50 AM 2:14 AM Na 132 128 130 130 132 131 133 134 K 4.4 5.2 5.3 5.1 5.3 5.5 4.3 4.7 Cl 95 91 92 95 96 98 100 98 CO2 25 25 24 23 24 19 -- 27 Gap 16 17 19 17 17 20 -- 14 Glu 95 90 148 184 246 293 190 223 BUN 44 79 74 61 43 31 -- 23 Cr 5.69 8.72 8.31 7.69 6.81 5.71 -- 4.89 Ca 7.7 7.8 7.7 7.8 8.1 8.4 -- 8.2 eGFR 11 6 7 7 9 11 -- 13 CBC: CBC (last 3 years, up to 8 values) 05/06/2024 05/05/2024 05/04/2024 05/03/2024 05/03/2024 05/02/2024 05/02/2024 05/02/2024 4:42 AM 3:59 AM 1:45 AM 5:00 AM 3:58 AM 2:45 PM 8:50 AM 2:14 AM WBC 7.0 10.2 10.0 10.5 10.4 15.2 -- 11.2 RBC 2.13 2.24 2.27 2.18 2.16 2.72 -- 3.21 Hgb 6.7 7.1 7.2 6.9 6.9 8.5 9.6 9.8 Hct 20.5 21.2 21.2 20.3 20.1 25.6 29.6 29.9 MCV 97 95 94 93 93 94 -- 93 RDW 16.7 16.8 17.0 17.2 17.5 17.6 -- 18.0 Plt 108 111 89 72 69 83 -- 81 PT/PTT/INR: PT/PTT/INR (last 3 years, up to 8 values) 05/01/2024 05/01/2024 04/30/2024 4:51 PM 10:10 AM 8:44 PM aPTT 29 -- -- INR -- 1.16 1.29 Type AND Screen: Type AND Screen (Last result in the past 30 days) 05/06/2024 04/30/2024 04/30/2024 6:33 AM 5:21 PM 4:30 PM ABO Rh A Positive A Positive A Positive Screen Int. Negative -- Negative ABG: Arterial Blood Gases None BNP: No result for BNP Hepatic Panel: LFT's (last 3 years, up to 8 values) No lab values to display. Glucose: Fingerstick Glucose (last 72 hours) (Last 10 results in the past 72 hours) Glucose 05/05/24 2040 106 05/05/24 1708 99 05/05/24 1147 115 05/05/24 0756 111 05/04/24 2039 168 05/04/24 1653 192 05/04/24 1156 213 05/04/24 0751 211 05/03/24 2142 193 05/03/24 1611 179 Comment: Notified FRANNIE URIBE MD
A1c: No results found for: HBA1C TSH: No results found for: TSH Blood Culture: Blood Culture No lab values to display. Urine Culture: Urine Culture (last 1 year) No lab values to display. Respiratory Culture: Respiratory Culture, Misc No lab values to display. Wt Readings from Last 5 Encounters: 04/30/24 (!) 314 lb (142.4 kg) Imaging Results (over previous 24 hours): No new imaging over the past 24 hours Assessment and Plan: Diagnosis s/p fall down ~ 6Ft hole: - Right L1-L3 TP Fx - Anterior tension ban disruption of T11 - Right superior/inferior pubic rami Fx w/ extension into acetab - Left scapular Fx w/ intramuscular shoulder hematoma - Bilateral sacral Ala Fx - Right 2,3,4,5,6,7,8 Rib Fx - Left 4,5,6,7,8 Rib Fx - Bilateral pulmonary contusions - Right pleural effusion - Trace hemoperitoneum - Right distal femur fx - Acute blood loss anemia - Hemorrhagic shock - Shock of unknown etiology Associated Hospital Diagnosis: - Hyperkalemia - Hypomagnesemia - Recurrent Nausea/Vomiting PMH: - Hyperparathyroidism - ARASH - CAROL - Atrial- Fibrillation - HTN - HLD - Pacer - GERD - ESRD - Depression - CKD - T2DM - CHF - Gastroparesis Home Medications: ASA 81mg daily Insulin NPH (70U BID) Pioglitazone 30mg daily Sertraline 100mg daily Amiodarone 200mg daily Sevelamer 1600mg TID Apixaban 5mg BID Atorvastatin 40mg daily Gabapentin 100mg qHS Midodrine 10mg with dialysis Omeprazole 40mg daily Metoclopramide 10mg QID Furosemide 40mg BID Isosorbide Mononitrate 20mg q12h Metoprolol 25mg Daily Incidental Findings: - Cholelithiasis - Indeterminate right adrenal nodule Plan: Neurological: # Acute post traumatic pain # Hx of Depression - Acetaminophen 1G Q6hrs sched - Oxycodone 5/10mg Q4hrs PRN - Lidocaine - 2 patch Q24h - Dilaudid 0.5 mg IV Q2H PRN for Physical Therapy - Robaxin 750mg Q6H - Cont home Gabapentin, Zoloft Cardiovascular: # Hx of HTN, HLD, CHF, Pacer, A-fib - Levophed at 0.01 mcg/kg/min - wean as able to achieve goal SBP > 100 mmHg - Ok to continue home Apixaban 5 mg BID PO for hx of atrial fibrillation - Hold home ASA for today given need for transfusion, tentative plan to resume 05/07 - Repeat EKG - Continue TELE monitoring - Continue home Amio, Lipitor, Midodrine Q8h - Last echo 01/05, LVEF 60%, no need for repeat - Continue Midodrine 10 mg Q8H PO - Midodrine 10 mg x 1 before dialysis - Cardiology consulted for pacer interrogation given need for MRI -> seen by EP and per them would be ok for MRI as battery is - cannot be interrogated given age - see separate note from EP Respiratory: # Hx of ARASH - Saturating well on 2L NC, wean as able. Not on home O2. - Maintain SpO2 > 92% - Continue pulse ox monitoring - Discontinue Daily ABG - Encourage incentive spirometry - education given today AM - Requiring Bipap intermittently at bedtime for suspected ARASH, hypoventilation - Has home CPAP prescribed, noncompliant GI/Diet: # Hx of GERD # Hx of Gastroparesis - Repeat EKG, Qtc 515, hold home Reglan - Miralax BID - Dulcolax suppository x 1 today - Tigan x 1 IM for nausea/emesis yesterday - Tigan 100 mg IM Q12h PRN for nausea - Diet: Regular, Renal diet; Renal Boost per Nutrition - Given recurrent N/ V with poor PO intake and inability to resume home Reglan, will discuss Corpak for enteral access and supplemental nutrition today - PO intake as tolerated - Senna 8.6 mg PO at bedtime - Continue pantoprazole in place of home esomeprazole Renal/Electrolytes: # Hx of ESRD - Nephro recs: - HD MWF (T//S this week) - Epo with dialysis - Continue midodrine as above - mIVF: none given renal disease - BMP/Mg/P daily - Replace electrolytes as indicated - Maintain Mg >2, K >4 - Measure strict I AND O - Continue home Renvela - K 4.4 today AM, continuing to monitor Infectious Disease: - Afebrile, no leukocytosis - Monitor temperature and WBC for signs of infection Hematology: # Hemorrhagic shock - Hgb 6.7 today AM, ,repeat T/S ordered, 1U RBCs ordered, post-transfusion labs in AM - CBC daily - Maintain hemoglobin >7 Endocrine: # Hx of Hyperparathyroidism, T2DM - POCT 160 - 200s - Insulin Sliding Scale increased to 4 - 14 units - POCT QAC and at bedtime - Pt states he no longer takes insulin at home, he takes ozempic only. Plan to restart on discharge. Musculoskeletal: # Pelvic Fx's # Right distal femur fx # Left Scap Fx S/p OR 05/02 - Progressive mobility - Ortho recs: signed off - NWB BLE - WBAT LUE - Ancef 3 g q8h - complete - Pelvic XR post-op - complete - Pain control: recommend multimodal - tylenol standing q6h, oxycodone q4h PRN, tramadol PRN, dilaudid PRN for breakthrough - May resume DVT PPX as per primary team -FU with Dr. Biggs in 2 weeks at dispo - PT/OT: - long term setting once medically cleared - Will continue to follow - PM AND R Consulted, appreciate recommendations - Ortho spine (05/01): - No acute spine interventions indicated Prophylaxis: - SCDs bilaterally - On therapeutic anticoagulation via home Eliquis Follow Up: - PCP: No primary care provider on file. - Ortho: with Dr. Biggs in 2 weeks at dispo LDA/Restraints: - PIV X 2 - L A-line - L Femoral CVC - RUE AVF Code Status: - Full Code Disposition: - Cont TICU care and MGMT Patient seen and evaluated with Attending Surgeon Dr. Asencio. Please see attending attestation for final plan/recommendations. Leighann Candelario MD General Surgery Resident, PGY2 Teaching Physician Note: I saw and evaluated the patient. I personally obtained the kirby and critical portions of the history and physical exam. I reviewed the resident's documentation and discussed the patient with the resident. I agree with the resident's medical decision making as documented in the resident's note. Persistent nausea and emesis. Pre-existing problem, however unable to get home reglan secondary to prolonged qtc. Discuss post pyloric corpak with pt. May need fluoroscopic guidance Ok for stepdown status as just off levophed yest Farrah Asencio MD TYPE AND SCREEN Collected: 6:33 AM Status: F Source: [facility] SYSTEM TYPE CODE TESTS RESULT OUT OF RANGE REFERENCE UNITS LAB I ABORH ABO RH TYPE A Positive LAB ABSC INT ABSC INT Negative LAB HXCHK ABORH/AB/TR HISTORY A Positive Performed By: #### TS #### [facility] [address] [place] [address], RED BLOOD CELL COMPONENT Collected: 5:31 AM Status: F Source: [facility] SYSTEM TYPE CODE TESTS RESULT OUT OF RANGE REFERENCE UNITS LAB 99 BB ORDER ITEM Product status info to follow Performed By: #### RBO #### [facility] [address] [place] [address], RED BLOOD CELL UNIT STATUS Collected: 05/06/2024 5:31 AM Status: C Source: [facility] SYSTEM TYPE CODE TESTS RESULT OUT OF RANGE REFERENCE UNITS LAB XM CROSSMATCH INTERPRETATION Compatible (E) LAB UT BLOOD PRODUCT UN IT TYPE 6200 Result Comment: A Pos LAB UN BLOOD PRODUCT UN IT INFO [id number] LAB ST BLOOD PRODUCT STATUS Transfused LAB PI BLOOD PRODUCT DESCRIPTION Red Blood Cells LAB SPC BLOOD PRODUCT CODE [id number] Performed By: #### RBU #### [facility] [address] [place], [place], METHYLMALONIC ACID Collected: 4:42 AM Status: F Source: [facility] Order Comment: Resulting Age ncy Address Site ID: QPT Name: [facility] Address: [address] [facility], [address] [place] [address] Director: Isaiah Valentine MD TYPE CODE TESTS RESULT OUT OF RANGE REFERENCE UNITS LAB MMA MMA 320 69-390 nmol/L Result Comment: See Note 1 Serum methylmalonic acid (MMA) levels are used to diagnose and monitor several rare inborn errors of metabolism, including methylmalonic aciduria. The enzymatic conversion of MMA to succinic acid requires vitamin B12 (adenosyl-cobalamin) as a cofactor. Serum MMA levels are also used for assessing functional vitamin B12 deficiency. Vitamin B12 is essential for neurodevelopment, particularly early in . Undiagnosed maternal vitamin B12 deficiency may be associated with adverse / outcomes, such as neural tube defects and intrauterine growth restriction. [facility] utilized Multi-Modal Decomposition (MMD) analysis to establish first and second trimester-specific MMA reference intervals in , as given below: MMA, First trimester (<13 wks gestation): 58-167 nmol/L MMA, Second trimester (13-23 wks gestation): 63-241 nmol/L Note 1 This test was developed and its analytical performance characteristics have been determined by [facility]. It has not been cleared or approved by the FDA. This assay has been validated pursuant to the CLIA regulations and is used for clinical purposes. Performed By: #### MMA #### [facility] [address] [place], [place] BASIC METABOLIC PANEL Collected: 2023 4:42 AM Status: F [facility] TYPE CODE TESTS RESULT OUT OF RANGE REFERENCE UNITS LAB GLU GLU 95 74-109 mg/dL LAB NA3 NA 132 Low 136-145 mmol/L LAB POT K 4.4 3.5-5.0 mmol/L LAB CO2 CO2 25 21-31 mmol/L LAB CHLOR CL 95 Low 98-107 mmol/L LAB BUN BUN 44 High 7-25 mg/dL LAB CREAT CREAT 5.69 High 0.70-1.30 mg/dL LAB CA CA 7.7 Low 8.6-10.3 mg/dL LAB ANION GAP ANION GAP 16 10-20 LAB eGFR ESTIMATED GFR (CKD-EPI) 11 Low >=60 mL/min/1 .73sqm Result Comment: 2020 CKD EPI Equation using Creatinine without Race Comment: Estimated glomerular filtration rate (eGFR) is calculated without a race coefficient. Values should be interpreted in the context of the patient's full clinical presentation. Reference: 1. Christophe C, Sagrario M, Gena DC, et al.. A Unifying Approach for GFR Estimation: Recommendations of the NKF-ASN Task Force on Reassessing the Inclusion of Race in Diagnosing Kidney Disease. [place] Journal of Kidney Diseases 2021;79(2):268- 88.e1. 2. N Engl J Med 1 Vol. 385 Issue 19 Pages 5838-8180 Performed By: #### CH8, MG, FOL #### [facility] [address] [place] [address], MAGNESIUM Collected: 4:42 AM Status: F Source: [facility] TYPE CODE TESTS RESULT OUT OF RANGE REFERENCE UNITS LAB mag MG 2.1 1.9-2.7 mg/dL Performed By: #### CH8, MG, FOL #### [facility] [address] [place] [address], FOLIC ACID Collected: 4:42 AM Status: F Source: [facility] TYPE CODE TESTS RESULT OUT OF RANGE REFERENCE UNITS LAB FOL FOL 4.8 Low 5.9-24.7 ng/mL Performed By: #### CH8, MG, FOL #### [facility] [address] [place] [address], VITAMIN D, 25-HYDROXY Collected: 2023 4:42 AM Status: F Source: [facility] Order Comment: Deficient : < 20.0 ng/mL Insufficient : 20.0-29.9 ng/mL Sufficient : 30.0 - 100.0 ng/mL Potential Toxicity : >100.0 ng/mL TYPE CODE TESTS RESULT OUT OF RANGE REFERENCE UNITS LAB VTD25 2 VITD25 12.3 Low 30-100 ng/mL Performed By: #### [id number] ## ## [facility] [address] [place] [address], PHOSPHORUS Collected: 4:42 AM Status: F [facility]: [facility] TYPE CODE TESTS RESULT OUT OF RANGE REFERENCE UNITS LAB PHOS PHOS 5.2 High 2.5-5.0 mg/dL Performed By: #### PHOS #### [facility] [address] [place] [address], COMPLETE BLOOD COUNT Collected: 024 4:42 AM Status: F Source: [facility] TYPE CODE TESTS RESULT OUT OF RANGE REFERENCE UNITS LAB WBC WBC 7.0 4.5-11.5 K/uL LAB RBC RBC 2.13 Low 4.50-5.90 M/uL LAB HGB HGB 6.7 Low Alert 13.9-16.3 g/dL LAB HCT HCT 20.5 Low 41.0-53.0 % LAB MCV MCV 97 80-100 fL LAB MCH MCH 31.3 26.0-34.0 pg LAB MCHC MCHC 32.4 32.0-35.9 g/dL LAB PLT PLT 108 Low 150-400 K/uL LAB RDW RDW-CV 16.7 High 11.5-14.5 % LAB MPV MPV 10.0 7.5-11.2 fL Performed By: #### CBC #### [facility] [address] [place] [address], GLUCOSE, FINGERSTICK-IN OFFICE Collecte d: 05/05/2024 8:40 PM Status: F Source: [facility] TYPE CODE TESTS RESULT OUT OF RANGE REFERENCE UNITS LAB Mongolian GLUCOSE, POC 106 74-109 mg/dL Performed By: #### [id number] ### # NURSING GLUCOSE PROGRAM [address] [place] [address], GLUCOSE, FINGERSTICK-IN OFFICE Collecte d: 05/05/2024 5:08 PM Status: F Source: [facility] TYPE CODE TESTS RESULT OUT OF RANGE REFERENCE UNITS LAB Mongolian GLUCOSE, POC 99 74-109 mg/dL Performed By: #### [id number] ### # NURSING GLUCOSE PROGRAM [address] [facility] [place], [address] PROGRESS NOTES Observed: 05/05/2024 4:37 PM Status: COMPLETED Source: [facility] SYSTEM 05/05/24 1500 Access Assessment Access Function WNL Vital Signs Heart Rate 71 Respiratory Rate 14 SpO2 100 % Arterial Line (ABP) Arterial BP 138/50 Arterial MAP 78 mmHg Run Sheet Hemodialysis Start/Stop Stop Comments VSS throughout tx. Total Fluid Removed Total Fluid Removed (ml) 2000 ml Prime (ml) 200 mL Rinseback (ml) 300 ml Actual (Net) Fluid Removed (ml) 1500 ml PROGRESS NOTES Observed: 05/05/2024 4:25 PM Status: COMPLETED Source: [facility] x 3.5 hours com pleted as ordered. 2K , 1500mls removed well tolerated,. Report given CONSULTS Observed: 05/05/2024 4:21 PM Status: COMPLETED Source: [facility] Plan/recommendations: 1. Start oral supplements Boost Breeze with breakfast - K+ free Novasource Renal BID - low K+ 2. Encourage small frequent meals - aim for BG <180. Consider downgrading to FLD if n/v persists with solid food intake 3. If persistent n/v may need evaluate need for post-pyloric corpak placement Novasource Renal. Initiate at 10 mL/hr and advance by 10 mL/hr q 6 hours to a goal rate of 50 mL/hr. Liquacel 1 packet TID Will provide: 1080 mL TF, 2160 kcal, 98 g protein, 774 mL free water + 300 kcal, 48 g protein from liquacel 4. History of folate deficiency and low B12 - recheck. Check vitamin D 25 [place] Initial Adult Inpatient Nutrition Assessment Reason for Visit Consult Admitting Diagnosis: Hemorrhagic shock (HCC) No past medical history on file. Past Surgical History: Procedure Laterality Date REDUCTION, CLOSED, PERCUTANEOUS PINNING, PELVIS Bilateral 05/02/2024 Procedure: REDUCTION, CLOSED, PERCUTANEOUS PINNING, PELVIS; Surgeon: Kayode Biggs MD; Location: PERIOPERATIVE SERVICES; Service: Orthopaedics REDUCTION, OPEN, FEMUR, INTRAMEDULLARY GENTRY Right 05/02/2024 Procedure: REDUCTION, OPEN, FEMUR, INTRAMEDULLARY GENTRY; Surgeon: Kayode Biggs MD; Location: PERIOPERATIVE SERVICES; Service: Orthopaedics is allergic to: Allergies Allergen Reactions Penicillins Faint Feeling Pt states when he was approx 5 years old he passed out after taking PCN Nutritionally Significant Meds: Current Facility-Administered Medications Medication Dose Route Frequency Last Rate Last Admin trimethobenzamide (TIGAN) 100 MG/ML injection 100 mg Intramuscular Q12H PRN norepinephrine (LEVOPHED) 8 mg in dextrose 5% 250 mL premix 0.01-3 mcg/kg/min Intravenous Continuous Apixaban (ELIQUIS) tablet 5 mg Oral 2x Daily 5 mg at 05/05/24 1213 polyethylene glycol (MIRALAX) 17 g packet 17 g Oral BID Sonali-Riri RX tablet 1 Tablet Oral Daily 1 Tablet at 05/05/24 1213 midodrine tablet 10 mg Oral Daily PRN 10 mg at 05/05/24 1022 insulin regular (HumuLIN R) 100 UNIT/ML injection 4-14 Units Subcutaneous 4x Daily AC AND HS 4 Units at 05/04/24 2143 methocarbamol (ROBAXIN) tablet 750 mg Oral Every 6 hours 750 mg at 05/05/24 1528 HYDROmorphone (DILAUDID) 1 mg/mL injection 0.5 mg Intravenous Push Q2H PRN 0.5 mg at 05/04/24 1135 midodrine tablet 10 mg Oral Every 8 hours 10 mg at 05/05/24 1528 epoetin antione-epbx (RETACRIT) 15423 UNIT/ML injection 10,000 Units Subcutaneous Q M, W AND F acetaminophen (TYLENOL) tablet 1,000 mg Oral q6h 1,000 mg at 05/05/24 1213 nystatin (MYCOSTATIN) 100,000 unit/g powder Topical 2x Daily Given at 05/05/24 0900 albuterol (PROVENTIL) (2.5 MG/3ML) 0.083% nebulizer solution 2.5 mg Nebulization QID RT 2.5 mg at 05/05/24 1232 albuterol (PROVENTIL) (2.5 MG/3ML) 0.083% nebulizer solution 2.5 mg Nebulization Q4H PRN sevelamer carbonate (RENVELA) tablet 800 mg Oral 3x Daily with Meals 800 mg at 05/05/24 1213 amiodarone (CORDARONE) tablet 200 mg Oral Daily 200 mg at 05/05/24919 atorvastatin (LIPITOR) tablet 40 mg Oral At Bedtime 40 mg at 05/04/242142 gabapentin (NEURONTIN) capsule 100 mg Oral At Bedtime 100 mg at 05/04/242142 pantoprazole (PROTONIX) tablet 40 mg Oral Daily 30 min before breakfast 40 mg at 05/05/24919 sertraline (ZOLOFT) tablet 100 mg Oral Daily 100 mg at 05/05/24919 oxyCODONE immediate release tablet 10 mg Oral Q4H PRN 10 mg at 05/04/241930 lidocaine (LIDODERM) 4 % patch 2 Patch Transdermal Every 24 hours 2 Patch at 05/04/242142 oxyCODONE immediate release tablet 5 mg Oral Q4H PRN 5 mg at 05/05/241527 dextrose 10 % iv infusion 125 mL Intravenous PRN Or glucagon (GLUCAGEN) 1 MG injection 1 mg Subcutaneous PRN Or dextrose (GLUTOSE) 40 % oral gel 15 g of glucose Buccal PRN Or dextrose (GLUTOSE) 40 % oral gel 30 g of glucose Buccal PRN senna (SENOKOT) tablet 8.6 mg Oral At Bedtime 8.6 mg at 05/04/242142 Labs: Basic Metabolic Panel 05/05/2024 05/04/2024 05/04/2024 05/03/2024 3:59 AM 9:47 PM 1:45 AM 3:58 AM Na 128 130 130 132 K 5.2 5.3 5.1 5.3 Cl 91 92 95 96 CO2 25 24 23 24 Gap 17 19 17 17 Glu 90 148 184 246 BUN 79 74 61 43 Cr 8.72 8.31 7.69 6.81 Ca 7.8 7.7 7.8 8.1 Mg 2.3 -- 2.1 2.0 PO4 6.9 -- 6.1 5.2 CBC (last 3 years, up to 8 values) 05/05/2024 05/04/2024 05/03/2024 05/03/2024 05/02/2024 05/02/2024 05/02/2024 05/01/2024 3:59 AM 1:45 AM 5:00 AM 3:58 AM 2:45 PM 8:50 AM 2:14 AM 8:24 PM WBC 10.2 10.0 10.5 10.4 15.2 -- 11.2 13.7 RBC 2.24 2.27 2.18 2.16 2.72 -- 3.21 3.31 Hgb 7.1 7.2 6.9 6.9 8.5 9.6 9.8 10.4 Hct 21.2 21.2 20.3 20.1 25.6 29.6 29.9 30.8 MCV 95 94 93 93 94 -- 93 93 RDW 16.8 17.0 17.2 17.5 17.6 -- 18.0 17.9 Plt 111 89 72 69 83 -- 81 89 Folate Component Ref Range AND Units 1 yr ago Folate >5.8 ng/mL 4.1 Low Vitamin B12 Component Ref Range AND Units 1 yr ago Vitamin B-12 180 - 914 pg/mL 317 LFT's (last 3 years, up to 8 values) No lab values to display. Lipids (last 3 years, up to 8 values) No lab values to display. No results found for: HBA1C Fingerstick Glucose (last 72 hours) (Last 10 results in the past 72 hours) Glucose 05/05/24 1147 115 05/05/24 0756 111 05/04/24 2039 168 05/04/24 1653 192 05/04/24 1156 213 05/04/24 0751 211 05/03/24 2142 193 05/03/24 1611 179 Comment: Notified FRANNIE URIBE MD
05/03/24 1220 222 05/03/24 0956 235 Comment: Notified RN ROYN LOPEZ
Vital sign ranges over the past 24 hours (retrieved 05/05/2024 at 4:22 PM): Tmax (24 hours): 98.3 ???F (36.8 ???C) Pulse Av.4 Min: 53 Max: 70 Systolic (24hrs), Av , Min:110 , Max:110 Diastolic (24hrs), Av, Min:51, Max:51 MAP (mmHg) Av.9 mmHg Min: 59 mmHg Max: 88 mmHg Resp Av.7 Min: 8 Max: 21 SpO2 Av.4 % Min: 94 % Max: 100 % Intake/Output Summary (Last 24 hours) at 05/05/2024 1622 Last data filed at 05/05/2024 0800 Gross per 24 hour Intake 135.79 ml Output -- Net 135.79 ml Diet Order: Regular; Strict Low K, 40 mEq % PO intake 2 bites of breakfast tray with subsequent n/v, no lunch Height: 5' 9 Weight: 142.4 kg - 04/30/24 IBW: 72.8 kg %IBW: 195% BMI: 46.37 Weight hx: 07/23/23 127.5 kg 11/29/23 131.0 kg 03/31/24 134.0 kg Nutrition Focused Physical Exam Muscle loss: No overt s/s of muscle loss Fat loss: None Edema: Location/Severity: generalized 1+ pitting; BLE weeping Hair/Nails/Skin: See provider and nursing notes Eyes/Nose/Mouth: NC Estimated needs: [id number] kcal/d 17-22 kcal/kg [RVX=5193 kcal] 145-180 g pro/d 2-2.5 g pro/kg IBW Assessment: Pt is a 59 y.o amel PMH s/f Hyperparathyroidism, Pacemaker, ARASH, CAROL, HLD, GERD, Depression, ESRD (HD MWF, RUE AV Fistula), CKD, HTN, T2DM, Systolic HF, and atrial fibrillation on [facility] who presented from [facility] s/p fall - found to have g1 splenic injury, multiple b/L rib fxs, and multiple pelvic fxs 04/30 admit to TICU; pressor support x1; HFNC-->BiPAP; NPO; LR @75 05/01 Pressor support x1; HFNC; iHD; HLIV 05/02 BiPAP ovn; frequent n/v; Renvela with meals; renal multivitamin; OR for R femur retrograde nail, ORIF R femur, R sacroiliac reduction and fixation 05/03 1u pRBC; increase midodrine; Hyperkalemia-->lokelma; ancef; CLD-->AAT 05/04 No BiPAP ovn; NC; Pressor support x1; Low K+ diet; Lokelma x2; sliding scale insulin 05/05 iHD; Tigan for nausea; Pressor support x1- low dose Pt alert - up in the chair - difficulty providing diet recall, even from just today - per RN, ordered scrambled eggs and toast for breakfast, had 2 bites with subsequent n/v - then declined to order lunch. Pt is agreeable to oral supplements. ?underlying gastroparesis - no A1c - pt unable to get reglan 2/2 prolonged QTc - on tigan. May tolerate liquids better than solid food. Aim for BG <180 as able. Nutrition Problems: 1. Persistent n/v 2. Poor PO intake Time spent on patient care: 60 minutes Will continue to follow Kristal Barakat MS RD [facility] Pager [phone] Evening/weekend pager 7a-7p -- [phone] Dietitian vs [employer]aryTech: Dietitian and Perinatal Instructor PROGRESS NOTES Observed: 05/05/2024 4:20 PM Status: COMPLETED Source: [facility] Note Pt seen and evaluated during hemodialysis No specific complaints Vital sign ranges over the past 24 hours (retrieved 05/05/2024 at 4:22 PM): Tmax (24 hours): 98.3 ???F (36.8 ???C) Pulse Av.4 Min: 53 Max: 70 Systolic (24hrs), Av , Min:110 , Max:110 Diastolic (24hrs), Av, Min:51, Max:51 MAP (mmHg) Av.9 mmHg Min: 59 mmHg Max: 88 mmHg Resp Av.7 Min: 8 Max: 21 SpO2 Av.4 % Min: 94 % Max: 100 % NAD S1S2, no rub Clear anteriorly No edema 05/04/2024 05/04/2024 05/05/2024 Renal Sodium 130 130 128 Potassium 5.1 5.3 5.2 Chloride 95 92 91 HCO3 23 24 25 BUN 61 74 79 Cr 7.69 8.31 8.72 Estimated GFR 7 7 6 Glucose 184 148 90 Calcium 7.8 7.7 7.8 Phosphorus, Serum 6.1 6.9 Hemoglobin 7.2 7.1 Hematocrit, spun 21.2 21.2 Magnesium 2.1 2.3 A/P ESKD admitted s/p fall with multiple fractures - HD today, will dialyze pt TTS this week, then transition him back to MWF schedule next week - midodrine for BP support on dialysis - mineral-bone disease- hyperphos- con't sevelemer - anemia- s/p transfusion for blood loss assoc w/ traumatic injury, con't SHIRA Alan Miranda MD PROGRESS NOTES Observed: 05/05/2024 3:55 PM Status: COMPLETED Source: [facility] Social Work ICU Note Attempted to meet with pt x2 to discuss SNF reccs and complete assessment. Pt with providers at both attempts. Will follow-up as able. Jodee Balderrama, MSSA, PRODUCT TESTER GLUCOSE, FINGERSTICK-IN OFFICE Collecte d: 05/05/2024 11:47 AM Status: F Source: [facility] TYPE CODE TESTS RESULT OUT OF RANGE REFERENCE UNITS LAB Mongolian GLUCOSE, POC 115 High 74-109 mg/dL Performed By: #### [id number] ### # NURSING GLUCOSE PROGRAM [address] [place] [address], [id number] CONSULTS Observed: 05/05/2024 10:34 AM Status: COMPLETED [facility]: [facility] Attempted to see patient, however patient not available due to getting hooked up to dialysis. Will continue to follow. Ben Gtz, PT, DPT #[id number] GLUCOSE, FINGERSTICK-IN OFFICE Collecte d: 05/05/2024 7:56 AM Status: F Source: [facility] TYPE CODE TESTS RESULT OUT OF RANGE REFERENCE UNITS LAB Mongolian GLUCOSE, POC 111 High 74-109 mg/dL Performed By: #### [id number] ### # NURSING GLUCOSE PROGRAM [address] [place] [address], [id number] PROGRESS NOTES Observed: 05/05/2024 7:10 AM Status: COMPLETED Source: [facility] DEPARTMENT OF SURGERY DIVISION OF TRAUMA, BURN, AND CRITICAL CARE TRAUMA INTENSIVE CARE UNIT (TICU) DAILY PROGRESS NOTE Patient: Amado Tran, 59 year old, male : 1965 Admit Date: 04/30/2024 Room: [place] [id number] Today's Date: 05/05/2024, Length of stay: 5 day(s) Code Status: Full Code Height: 5' 9 Weight: 142.4 kg BMI: 46.37 SURGICAL ICU - STAFF NOTE Patient seen and examined on 05/05/2024 Interval History/Events: Background: Amado Tran is a 59 year old y/o male with PMH of Hyperparathyroidism, Pacemaker, ARASH, CAROL, HLD, GERD, Depression, ESRD (HD MWF, RUE AV Fistula), CKD, HTN, T2DM, Systolic HF, and atrial fibrillation on Eliquis who presented to via [facility] as an inter facility transfer from [facility] s/p Fall. Per reports Pt was at a [facility] location when he exited his vehicle to assist the senior quality control technician in opening his vehicle door, when he stepped behind his vehicle he accidentally fell through the floor opening aprox 6ft. Pt. Reports falling straight down, negative LOC, negative head strike. Pt was unable to get up under his own strength, EMS was called and Pt was extricated via EMS/FD, immobilized and transported to [facility] ED. Imagine at OSH demonstrated a Grade 1 splenic injury, multiple bilateral ribs fxs, and multiple pelvic fractures. Pt. Received K-centra, as well as PRBC X 2 and Calcium Gluc. [facility] was requested for transport to for orthopedics and trauma evaluations. EN route Pt received an additionalunit of whole blood. On arrival to pt is alert and oriented x 3, w/GCS-15. Pt. On 4LNC, Labile blood pressures and received an additional PRBC X 1, FFP X 1 in ED. [facility] the [facility] of contrast at [facility]. Pt. Had CVC and A-line placed in ED. Hospital Course: 04/30: Admitted to TICU s/p fall with B/L rib fxs, Pelvic fx's, and questionable Grade 1 splenic injury s/p fall at [facility] location. 05/01: Titrated on levophed. CBC trended. Seen by EP for pacer, no interrogation to be performed 2/2 EOL device. Upright XR done. OR deferred. Dialyzed. 05/02: Went to OR with ortho. Pressor requirements improved. 05/04: No HD, bumped due to renal emergency. Plan for 05/05. Weaning levophed as able. 05/05: HD today. Continue to wean levophed to goal of SBP > 100. N/V after breakfast, tigan x 1 with improvement. One-Liner: Pt is a 59 year old male with PMH of ESRD on HD MWF, T2DM, HFrEF and atrial fibrillation on eliquis who presented as a CAT 1 trauma as a transfer from [facility] and was admitted to the TICU for multiple traumatic injuries including Grade 1 splenic injury, multiple bilateral rib fractures, multiple pelvic fractures resulting from a 6 foot fall into auto mechanical bay. Course complicated by hypotension requiring multiple blood products including PRBC x3, whole blood x1, FFP x1, as well as levophed gtt. Acute overnight events: - No acute events overnight - Daily ABG acidosis, increase iPAP, 14/6 - Levophed at 0.01 mcg/kg/min - Taking PRN Oxy 10 mg Q4H - states that this helps with left shoulder and back pain. - States that PRN Dilaudid helps with participation with PT/OT. - Nephro recs: - HD today (05/05) - Continue midodrine prior to HD - Renal MV and Renal diet - While seeing patient this morning, emesis x 1 with nausea, given tigan x1 with improvement. Patient states he just ate breakfast, it was the most he had eaten in the last few days. - No BM since admission Drips: Levophed off Lines, Tubes, Drains: CVC - left femoral, RUE fistula, left art line 2 x PIV on left Vitals AND I/Os: 24 Hour Vitals Range: Vital sign ranges over the past 24 hours (retrieved 05/05/2024 at 7:10 AM): Tmax (24 hours): 98.1 ???F (36.7 ???C) Pulse Av Min: 53 Max: 70 Systolic (24hrs), Av , Min:110 , Max:123 Diastolic (24hrs), Av, Min:51, Max:58 MAP (mmHg) Av mmHg Min: 61 mmHg Max: 88 mmHg Resp Av.7 Min: 8 Max: 27 SpO2 Av.2 % Min: 94 % Max: 100 % Vital Signs: Patient Vitals for the past 24 hrs: BP Temp Temp src Pulse Resp SpO2 O2 Device O2 Flow Rate (l/min) FiO2 (%) 05/05/24 0600 -- -- -- 59 14 100 % Nasal cannula 2 -- 05/05/24 0500 -- -- -- 55 8 100 % -- -- -- 05/05/24 0400 -- 97 ???F (36.1 ???C) Axillary 56 13 100 % BiPAP 2 -- 05/05/24 0300 -- -- -- 54 10 100 % -- -- -- 05/05/24 0200 -- -- -- 53 8 100 % -- -- -- 05/05/24 0100 -- -- -- 56 10 100 % -- -- -- 05/05/24 0020 -- -- -- 56 12 100 % BiPAP 2 -- 05/05/24 0000 110/51 97.5 ???F (36.4 ???C) Axillary 57 12 100 % BiPAP 2 -- 05/04/242241 -- -- -- 61 10 100 % BiPAP 2 -- 05/04/242199 -- -- -- 62 11 97 % -- -- -- 05/04/242108 -- -- -- 63 16 96 % Nasal cannula 2 -- 05/04/24 2100 -- -- -- 61 15 94 % -- -- -- 05/04/24 2000 -- -- -- 62 12 96 % Nasal cannula 2 -- 05/04/24 1900 -- -- -- 66 19 94 % -- -- -- 05/04/24 1838 -- -- -- 66 17 95 % -- -- -- 05/04/24 1807 -- -- -- 70 21 96 % -- -- -- 05/04/24 1800 -- -- -- 68 16 96 % -- -- -- 05/04/24 1700 -- -- -- 68 21 98 % -- -- -- 05/04/24 1600 -- 98.1 ???F (36.7 ???C) Oral 63 20 99 % Nasal cannula 2 -- 05/04/24 1500 -- -- -- 68 -- 96 % -- -- -- 05/04/24 1448 -- -- -- 63 -- 97 % -- -- -- 05/04/24 1424 -- -- -- 67 -- 98 % -- -- -- 05/04/24 1422 -- -- -- 67 -- 98 % -- -- -- 05/04/24 1400 -- -- -- 66 20 97 % -- -- -- 05/04/24 1300 -- -- -- 67 20 99 % -- -- -- 05/04/24 1242 -- -- -- 64 20 100 % Nasal cannula 2 -- 05/04/24 1234 -- -- -- 67 18 100 % Nasal cannula 2 -- 05/04/24 1200 -- 98 ???F (36.7 ???C) Oral 69 18 99 % Nasal cannula 2 -- 05/04/24 1100 -- -- -- 65 18 98 % -- -- -- 05/04/24 1000 -- -- -- 65 17 99 % -- -- -- 05/04/24 0900 -- -- -- 68 18 100 % -- -- -- 05/04/24 0850 -- -- -- 64 27 100 % Nasal cannula 2 -- 05/04/24 0839 -- -- -- -- -- -- BiPAP 2 -- 05/04/24 0800 123/58 97.5 ???F (36.4 ???C) Axillary 63 15 100 % BiPAP -- 40 24 Hour I AND Os: In: 259.5 (1.8 mL/kg) [P.O.:150; I.V.:109.5 (0 mL/kg/hr)] Out: - (0 mL/kg) Net: 259.5 Weight: 142.4 kg PO: 150 x 1 UOP: Anuric (per patient) Physical Exam: General: Awake and alert. Sitting upright in bed. Episode of emesis x 1 during assessment, patient states just ate breakfast. Neurological: AAOx4, GCS-15. HEENT: PERRL, EOMI, no conjunctival injection or scleral icterus. Cardiac: Regular rate and rhythm. S1/S2 audible. No murmurs/rubs/gallops. Peripheral pulses palpable and symmetrical bilaterally. Pulmonary: Clear to auscultation bilaterally, diminished breath sounds to bases. Saturating well on 2L NC. No wheezing, rhonchi, or rales. Abdomen: Large, rounded, soft, non-tender, non-distended. Pelvic binder in place. Extremities: RLE has dressings in place over the distal and medial thigh which appear clean/dry/intact. Distal pulses are 2+ and intact bilaterally. Tenderness on palpation and manipulation of RLE. Compartments soft but tender and mildly swollen compared to contralateral extremity. Otherwise warm, well perfused. Lab Data: 10.2 7.1 / 111 / 21.2 CBC: 05/05/2024: 3:59 AM 128 91 79 / 90 5.2 25 8.72 BMP: 05/05/2024: 3:59 AM BMP: BMP (last 3 years, up to 8 values) 05/05/2024 05/04/2024 05/04/2024 05/03/2024 05/02/2024 05/02/2024 05/02/2024 05/01/2024 3:59 AM 9:47 PM 1:45 AM 3:58 AM 2:45 PM 8:50 AM 2:14 AM 12:12 AM Na 128 130 130 132 131 133 134 135 K 5.2 5.3 5.1 5.3 5.5 4.3 4.7 5.1 Cl 91 92 95 96 98 100 98 103 CO2 25 24 23 24 19 -- 27 24 Gap 17 19 17 17 20 -- 14 13 Glu 90 148 184 246 293 190 223 151 BUN 79 74 61 43 31 -- 23 32 Cr 8.72 8.31 7.69 6.81 5.71 -- 4.89 6.42 Ca 7.8 7.7 7.8 8.1 8.4 -- 8.2 8.8 eGFR 6 7 7 9 11 -- 13 9 CBC: CBC (last 3 years, up to 8 values) 05/05/2024 05/04/2024 05/03/2024 05/03/2024 05/02/2024 05/02/2024 05/02/2024 05/01/2024 3:59 AM 1:45 AM 5:00 AM 3:58 AM 2:45 PM 8:50 AM 2:14 AM 8:24 PM WBC 10.2 10.0 10.5 10.4 15.2 -- 11.2 13.7 RBC 2.24 2.27 2.18 2.16 2.72 -- 3.21 3.31 Hgb 7.1 7.2 6.9 6.9 8.5 9.6 9.8 10.4 Hct 21.2 21.2 20.3 20.1 25.6 29.6 29.9 30.8 MCV 95 94 93 93 94 -- 93 93 RDW 16.8 17.0 17.2 17.5 17.6 -- 18.0 17.9 Plt 111 89 72 69 83 -- 81 89 PT/PTT/INR: PT/PTT/INR (last 3 years, up to 8 values) 05/01/2024 05/01/2024 04/30/2024 4:51 PM 10:10 AM 8:44 PM aPTT 29 -- -- INR -- 1.16 1.29 Type AND Screen: Type AND Screen (Last result in the past 30 days) 04/30/2024 04/30/2024 5:21 PM 4:30 PM ABO Rh A Positive A Positive Screen Int. -- Negative ABG: Arterial Blood Gases T Site Mode LPM FIO2 pH pCO2 pO2 Sat Base Ex HCO3- A-a 05/05/24 0359 BIPAP 2 LPM 7.267 52.6 110 97.6 -3.0 23 BNP: No result for BNP Hepatic Panel: LFT's (last 3 years, up to 8 values) No lab values to display. Glucose: Fingerstick Glucose (last 72 hours) (Last 10 results in the past 72 hours) Glucose 05/04/24 2039 168 05/04/24 1653 192 05/04/24 1156 213 05/04/24 0751 211 05/03/24 2142 193 05/03/24 1611 179 Comment: Notified FRANNIE URIBE MD
05/03/24 1220 222 05/03/24 0956 235 Comment: Notified FRANNIE URIBE MD
05/03/24 0459 279 05/02/24 2218 308 A1c: No results found for: HBA1C TSH: No results found for: TSH Blood Culture: Blood Culture No lab values to display. Urine Culture: Urine Culture (last 1 year) No lab values to display. Respiratory Culture: Respiratory Culture, Misc No lab values to display. Wt Readings from Last 5 Encounters: 04/30/24 (!) 314 lb (142.4 kg) Imaging Results (over previous 24 hours): Pelvic XR post-op (05/02): Interval fixation of bilateral sacroiliac joints with single partially threaded trans-sacroiliac screw. Additionally, right intramedullary fixation gentry is seen with 2 proximal interlocking screws in the proximal femoral diaphysis. No significant change in position or alignment of the previously described fractures CXR: IMPRESSION: Suspected trace left apical pneumothorax. No appreciable right-sided pneumothorax. Otherwise unchanged pulmonary findings as detailed. Assessment and Plan: Diagnosis s/p fall down ~ 6Ft hole: - Right L1-L3 TP Fx - Anterior tension ban disruption of T11 - Right superior/inferior pubic rami Fx w/ extension into acetab - Left scapular Fx w/ intramuscular shoulder hematoma - Bilateral sacral Ala Fx - Right 2,3,4,5,6,7,8 Rib Fx - Left 4,5,6,7,8 Rib Fx - Bilateral pulmonary contusions - Right pleural effusion - Trace hemoperitoneum - Right distal femur fx - Acute blood loss anemia - Hemorrhagic shock - Shock of unknown etiology Associated Hospital Diagnosis: - Hyperkalemia - Hypomagnesemia PMH: - Hyperparathyroidism - ARASH - CAROL - Atrial- Fibrillation - HTN - HLD - Pacer - GERD - ESRD - Depression - CKD - T2DM - CHF Home Medications: ASA 81mg daily Insulin NPH Pioglitazone 30mg daily Sertraline 100mg daily Amiodarone 200mg Sevelamer 1600mg TID Apixaban 5mg daily Atorvastatin 40mg daily Gabapentin 100mg daily Midodrine 10mg daily Omeprazole 40mg daily Incidental Findings: - Cholelithiasis - Indeterminate right adrenal nodule Plan: Neurological: # Acute post traumatic pain # Hx of Depression - Acetaminophen 1G Q6hrs sched - Oxycodone 5/10mg Q4hrs PRN - Lidocaine - 2 patch Q24h - Dilaudid 0.5 mg IV Q2H PRN for Physical Therapy - Robaxin 750mg Q6H - Cont home Gabapentin, Zoloft Cardiovascular: # Hx of HTN, HLD, CHF, Pacer, A-fib - Levophed at 0.01 mcg/kg/min - wean as able to achieve goal SBP > 100 mmHg - Start home Apixaban 5 mg BID PO or hx of atrial fibrillation - Hold home ASA, will reassess tomorrow if remains stable for 24 hours following initiation of home Apixaban - Repeat EKG - Continue TELE monitoring - Continue home Amio, Lipitor, Midodrine Q8h - Last echo 01/05, LVEF 60%, no need for repeat - Continue Midodrine 10 mg Q8H PO - Midodrine 10 mg x 1 before dialysis - Cardiology consulted for pacer interrogation given need for MRI -> seen by EP and per them would be ok for MRI as battery is - cannot be interrogated given age - see separate note from EP Respiratory: # Hx of ARASH - Saturating well on 2L NC, wean as able. Not on home O2. - Maintain SpO2 > 92% - Continue pulse ox monitoring - Discontinue Daily ABG - Encourage incentive spirometry - Requiring Bipap at bedtime for suspected ARASH, hypoventilation - Has home CPAP prescribed, noncompliant GI/Diet: # Hx of GERD - Repeat EKG, if Qtc okay can consider restarting home Reglan - Miralax BID - Dulcolax suppository x 1 today - Tigan x 1 IM for nausea/emesis this morning - Tigan 100 mg IM Q12h PRN for nausea - Diet: Regular, Renal diet - PO intake as tolerated - Can add renal boost if persistent poor PO intake - nutrition - Senna 8.6 mg PO at bedtime - Continue pantoprazole in place of home esomeprazole Renal/Electrolytes: # Hx of ESRD - Nephro recs: - HD MWF - Epo with dialysis - Continue midodrine - mIVF: none given renal disease - BMP/Mg/P daily - Replace electrolytes as indicated - Maintain Mg >2, K >4 - Measure strict I AND O - Continue home Renvela - s/p Lokelma x 2, K 5.1 Infectious Disease: - Afebrile, no leukocytosis - Monitor temperature and WBC for signs of infection Hematology: # Hemorrhagic shock - Hgb 7.1 from 7.2, will follow up a.m. CBC - Maintain active T/S (04/30) - draw tomorrow with am labs - CBC daily - Maintain hemoglobin >7 Endocrine: # Hx of Hyperparathyroidism, T2DM - POCT 160 - 200s - Insulin Sliding Scale increased to 4 - 14 units - POCT QAC and at bedtime - Pt states he no longer takes insulin at home, he takes ozempic only. Plan to restart on discharge. Musculoskeletal: # Pelvic Fx's # Right distal femur fx # Left Scap Fx S/p OR 05/02 - Progressive mobility - Ortho recs: signed off - NWB BLE - WBAT LUE - Ancef 3 g q8h - complete - Pelvic XR post-op - complete - Pain control: recommend multimodal - tylenol standing q6h, oxycodone q4h PRN, tramadol PRN, dilaudid PRN for breakthrough - May resume DVT PPX as per primary team -FU with Dr. Biggs in 2 weeks at [facility] - PT/OT: - long term setting once medically cleared - Will continue to follow - Ortho spine (05/01): - No acute spine interventions indicated Prophylaxis: - SCDs bilaterally - Discontinue subcutaneous heparin 5000mg q8h, as started home Apixaban today Follow Up: - PCP: No primary care provider on file. - [facility]Rest[facility]: - PIV X 2 - L A-line - CVC Code Status: - Full Code Disposition: - Cont TICU care and MGMT Patient seen and evaluated with Attending Surgeon Dr. Asencio. Please see attending attestation for final plan/recommendations. Gorge Reed MD Anesthesiology Medical Aide, PGY1 Teaching Physician Note: I saw and evaluated the patient. I personally obtained the kirby and critical portions of the history and physical exam. I reviewed the resident's documentation and discussed the patient with the resident. I agree with the resident's medical decision making as documented in the resident's note. Qtc elevated at last check Repeat today On home reglan for nausea/emesis pre injury Discuss options with lane attendant given renal diet/boost Restart doac today Anticipate SNF at discharge Has been off levo since 8am. Monitor closely Farrah Asencio MD COMPLETE BLOOD COUNT Collected: 024 3:59 AM Status: F Source: THE [facility] SYSTEM TYPE CODE TESTS RESULT OUT OF RANGE REFERENCE UNITS LAB WBC WBC 10.2 4.5-11.5 K/uL LAB RBC RBC 2.24 Low 4.50-5.90 M/uL LAB HGB HGB 7.1 Low 13.9-16.3 g/dL LAB HCT HCT 21.2 Low 41.0-53.0 % LAB MCV MCV 95 80-100 fL LAB MCH MCH 31.9 26.0-34.0 pg LAB MCHC MCHC 33.7 32.0-35.9 g/dL LAB PLT PLT 111 Low 150-400 K/uL LAB RDW RDW-CV 16.8 High 11.5-14.5 % LAB MPV MPV 10.0 7.5-11.2 fL Performed By: #### CBC #### [facility] [address] [place] [address], BASIC METABOLIC PANEL Collected: 2023 3:59 AM Status: F [facility] TYPE CODE TESTS RESULT OUT OF RANGE REFERENCE UNITS LAB GLU GLU 90 74-109 mg/dL LAB NA3 NA 128 Low 136-145 mmol/L LAB POT K 5.2 High 3.5-5.0 mmol/L LAB CO2 CO2 25 21-31 mmol/L LAB CHLOR CL 91 Low 98-107 mmol/L LAB BUN BUN 79 High 7-25 mg/dL LAB CREAT CREAT 8.72 High 0.70-1.30 mg/dL LAB CA CA 7.8 Low 8.6-10.3 mg/dL LAB ANION GAP ANION GAP 17 10-20 LAB eGFR ESTIMATED GFR (CKD-EPI) 6 Low >=60 mL/min/1 .73sqm Result Comment: 2020 CKD EPI Equation using Creatinine without Race Comment: Estimated glomerular filtration rate (eGFR) is calculated without a race coefficient. Values should be interpreted in the context of the patient's full clinical presentation. Reference: 1. Christophe C, Sagrario M, Gena DC, et al.. A Unifying Approach for GFR Estimation: Recommendations of the NKF-ASN Task Force on Reassessing the Inclusion of Race in Diagnosing Kidney Disease. [place] Journal of Kidney Diseases 2021;79(2):268- 88.e1. 2. N Engl J Med 1 Vol. 385 Issue 19 Pages 7733-8137 Performed By: #### MG, PHOS, CH8 #### [facility] [address], [place], [place] Collected: 3:59 AM Status: F Source: THE [facility] TYPE CODE TESTS RESULT OUT OF RANGE REFERENCE UNITS LAB mag MG 2.3 1.9-2.7 mg/dL Performed By: #### MG, PHOS, CH8 #### [facility] [address], [place], [place]OS[place] Collected: 3:59 AM Status: F [facility]: [facility] TYPE CODE TESTS RESULT OUT OF RANGE REFERENCE UNITS LAB PHOS PHOS 6.9 High 2.5-5.0 mg/dL Performed By: #### MG, PHOS, CH8 #### [facility] [address] [place] [address], BLOOD GAS, ARTERIAL Collected: 05/05/20 3:59 AM Status: F [facility]: [facility] TYPE CODE TESTS RESULT OUT OF RANGE REFERENCE UNITS LAB MODE MODE BIPAP LAB fio2 FIO2 (CATEGORY) 2 LPM LAB CR PHA CR PHA 7.267 Low 7.350-7.450 LAB pco2 CR PCO2 52.6 High 35.0-45.0 mm Hg LAB CR PO2 CR PO2 110 High 80-100 mm Hg LAB CR %O2 SAT CR % O2 SAT 97.6 95.0-99.0 % LAB CR ANAYA CR ANAYA -3.0 Low -2.0-3.0 mmol/L LAB CPCR HCO3 CR HCO3 23 21-28 mmol/L Performed By: #### CR BGA ## ## [facility] [address] [place] [address], BASIC METABOLIC PANEL Collected: 2023 9:47 PM Status: F [facility]: [facility] TYPE CODE TESTS RESULT OUT OF RANGE REFERENCE UNITS LAB GLU GLU 148 High 74-109 mg/dL LAB NA3 NA 130 Low 136-145 mmol/L LAB POT K 5.3 High 3.5-5.0 mmol/L LAB CO2 CO2 24 21-31 mmol/L LAB CHLOR CL 92 Low 98-107 mmol/L LAB BUN BUN 74 High 7-25 mg/dL LAB CREAT CREAT 8.31 High 0.70-1.30 mg/dL LAB CA CA 7.7 Low 8.6-10.3 mg/dL LAB ANION GAP ANION GAP 19 10-20 LAB eGFR ESTIMATED GFR (CKD-EPI) 7 Low >=60 mL/min/1 .73sqm Result Comment: 2020 CKD EPI Equation using Creatinine without Race Comment: Estimated glomerular filtration rate (eGFR) is calculated without a race coefficient. Values should be interpreted in the context of the patient's full clinical presentation. Reference: 1. Christophe Nash, Sagrario M, Gena YUAN, et al.. A Unifying Approach for GFR Estimation: Recommendations of the NKF-ASN Task Force on Reassessing the Inclusion of Race in Diagnosing Kidney Disease. [place] Journal of Kidney Diseases 202;79(2):268- 88.e1. 2. N Engl J Med 1 Vol. 385 Issue 19 Pages 5901-0024 Performed By: #### CH8 #### [facility] [address] [place], [address] GLUCOSE, FINGERSTICK-IN OFFICE Collecte d: 05/04/2024 8:39 PM Status: F Source: THE [facility] TYPE CODE TESTS RESULT OUT OF RANGE REFERENCE UNITS LAB Mongolian GLUCOSE, POC 168 High 74-109 mg/dL Performed By: #### [id number] ### # NURSING GLUCOSE PROGRAM [address] [place], [address] PROGRESS NOTES Observed: 05/04/2024 8:07 PM Status: COMPLETED Source: [facility] Nephrology Follow-up Note Amado Tran 59 year old 314 lbs MRN/Room: [id number] Subjective: No events Labile BP requiring pressers intermittently No HD done today. Objective: Meds: insulin regular 4-14 Units 4x Daily AC AND HS methocarbamol 750 mg Every 6 hours midodrine 10 mg Every 8 hours epoetin antione-epbx 10,000 Units Q M, W AND F lidocaine 1 Patch Every 24 hours Heparin Sodium (Porcine) PF 5,000 Units Every 8 hours acetaminophen 1,000 mg q6h nystatin 2x Daily albuterol 2.5 mg QID RT sevelamer carbonate 800 mg 3x Daily with Meals amiodarone 200 mg Daily atorvastatin 40 mg At Bedtime gabapentin 100 mg At Bedtime pantoprazole 40 mg Daily 30 min before breakfast sertraline 100 mg Daily polyethylene glycol 17 g Daily lidocaine 2 Patch Every 24 hours senna 8.6 mg At Bedtime norepinephrine (LEVOPHED) infusion orderable 0.02 mcg/kg/min (05/04/241944) HYDROmorphone HCl PF 0.5 mg Q2H PRN albuterol 2.5 mg Q4H PRN oxyCODONE 10 mg Q4H PRN oxyCODONE 5 mg Q4H PRN dextrose iv for hypoglycemia orderable 125 mL PRN Or glucagon 1 mg PRN Or dextrose 15 g of glucose PRN Or dextrose 30 g of glucose PRN Vital sign ranges over the past 24 hours (retrieved 05/04/2024 at 8:07 PM): Tmax (24 hours): 98.1 ???F (36.7 ???C) Pulse Av.8 Min: 60 Max: 74 Systolic (24hrs), Av , Min:105 , Max:149 Diastolic (24hrs), Av, Min:34, Max:76 MAP (mmHg) Av.4 mmHg Min: 57 mmHg Max: 81 mmHg Resp Av.7 Min: 12 Max: 27 SpO2 Av.7 % Min: 94 % Max: 100 % Patient Vitals for the past 24 hrs: BP Temp Temp src Pulse Resp SpO2 O2 Device O2 Flow Rate (l/min) FiO2 (%) 05/04/24 2000 -- -- -- 62 12 96 % Nasal cannula 2 -- 05/04/24 1900 -- -- -- 66 19 94 % -- -- -- 05/04/24 1838 -- -- -- 66 17 95 % -- -- -- 05/04/24 1807 -- -- -- 70 21 96 % -- -- -- 05/04/24 1800 -- -- -- 68 16 96 % -- -- -- 05/04/24 1700 -- -- -- 68 21 98 % -- -- -- 05/04/24 1600 -- 98.1 ???F (36.7 ???C) Oral 63 20 99 % Nasal cannula 2 -- 05/04/24 1500 -- -- -- 68 -- 96 % -- -- -- 05/04/24 1448 -- -- -- 63 -- 97 % -- -- -- 05/04/24 1424 -- -- -- 67 -- 98 % -- -- -- 05/04/24 1422 -- -- -- 67 -- 98 % -- -- -- 05/04/24 1400 -- -- -- 66 20 97 % -- -- -- 05/04/24 1300 -- -- -- 67 20 99 % -- -- -- 05/04/24 1242 -- -- -- 64 20 100 % Nasal cannula 2 -- 05/04/24 1234 -- -- -- 67 18 100 % Nasal cannula 2 -- 05/04/24 1200 -- 98 ???F (36.7 ???C) Oral 69 18 99 % Nasal cannula 2 -- 05/04/24 1100 -- -- -- 65 18 98 % -- -- -- 05/04/24 1000 -- -- -- 65 17 99 % -- -- -- 05/04/24 0900 -- -- -- 68 18 100 % -- -- -- 05/04/24 0850 -- -- -- 64 27 100 % Nasal cannula 2 -- 05/04/24 0839 -- -- -- -- -- -- BiPAP 2 -- 05/04/24 0800 123/58 97.5 ???F (36.4 ???C) Axillary 63 15 100 % BiPAP -- 40 05/04/24 0700 -- -- -- 60 13 97 % -- -- -- 05/04/24 0642 -- -- -- 64 22 97 % -- -- -- 05/04/24 0636 109/34 -- -- 62 -- -- -- -- -- 05/04/24 0601 -- -- -- 68 17 100 % BiPAP 2 -- 05/04/24 0600 -- -- -- 68 21 100 % -- -- -- 05/04/24 0500 -- -- -- 65 16 100 % -- -- -- 05/04/24 0400 -- 98.1 ???F (36.7 ???C) Axillary 66 14 100 % -- -- -- 05/04/24 0300 -- -- -- 67 15 100 % -- -- -- 05/04/24 0200 -- -- -- 65 13 100 % -- -- -- 05/04/24 0100 -- -- -- 68 16 100 % -- -- -- 05/04/24 0018 -- -- -- 70 16 100 % Nasal cannula 2 -- 05/04/24 0000 124/44 97.5 ???F (36.4 ???C) Oral 62 16 100 % Nasal cannula 2 -- 05/03/242299 -- -- -- 71 18 100 % -- -- -- 05/03/242246 -- -- -- 72 17 100 % -- -- -- 05/03/242202 105/76 -- -- 74 20 100 % Nasal cannula 2 -- 05/03/242199 -- -- -- 73 20 99 % -- -- -- 05/03/242099 149/43 98 ???F (36.7 ???C) Oral 73 17 100 % -- -- -- 05/03/242043 -- -- -- 68 12 100 % Nasal cannula 2 -- 05/03/242033 -- -- -- 71 20 100 % Nasal cannula 2 -- Intake/Output Summary (Last 24 hours) at 05/04/20242006 Last data filed at 05/04/2024 1900 Gross per 24 hour Intake 231.94 ml Output -- Net 231.94 ml General appearance: no distress Eyes: non-icteric Skin: no apparent rash Heart: s1s2 regular Lungs: reduced breathing sounds no wheezing/crackles Abdomen: soft, nt/nd Extremities: trace edema bilat Caceres Neuro: No FND,no asterixis Access RUE AVG with bruit and thrill Blood Labs: Arterial Blood Gases T Site Mode LPM FIO2 pH pCO2 pO2 Sat Base Ex HCO3- A-a 05/04/24 0139 Nasal Canula 3 LPM 7.288 50.1 129 98.9 -2.7 23 CBC/PT/INR 05/04/2024 05/03/2024 05/03/2024 05/02/2024 05/02/2024 05/02/2024 05/01/2024 1:45 AM 5:00 AM 3:58 AM 2:45 PM 8:50 AM 2:14 AM 8:24 PM WBC 10.0 10.5 10.4 15.2 -- 11.2 13.7 RBC 2.27 2.18 2.16 2.72 -- 3.21 3.31 Hgb 7.2 6.9 6.9 8.5 9.6 9.8 10.4 Hct 21.2 20.3 20.1 25.6 29.6 29.9 30.8 MCV 94 93 93 94 -- 93 93 RDW 17.0 17.2 17.5 17.6 -- 18.0 17.9 Plt 89 72 69 83 -- 81 89 Basic Metabolic Panel 05/04/2024 05/03/2024 05/02/2024 05/02/2024 05/02/2024 1:45 AM 3:58 AM 2:45 PM 8:50 AM 2:14 AM Na 130 132 131 133 134 K 5.1 5.3 5.5 4.3 4.7 Cl 95 96 98 100 98 CO2 23 24 19 -- 27 Gap 17 17 20 -- 14 Glu 184 246 293 190 223 BUN 61 43 31 -- 23 Cr 7.69 6.81 5.71 -- 4.89 Ca 7.8 8.1 8.4 -- 8.2 Mg 2.1 2.0 2.0 -- 2.0 PO4 6.1 5.2 5.4 -- 4.2 ASSESSMENT: Amado Tran is a 59 year old with PMHx of Pacemaker, ARASH, HLD, GERD, Depression, ESRD (HD MWF, RUE AV Fistula), CKD, HTN, T2DM, Systolic HF, and atrial fibrillation on Eliquis presenting to the ED after falling into a 6 foot hole. Multiple fractures. ESRD on HD MWF - Access: RUE AVG - electrolytes: hyponatremia from impaired free water deficit - anemia: from OR and CKD, hgb below goal - CKDMBD: phos elevated, calcium low albumin unknown. - for Midodrine before HD - EPO with HD. #Ortho surgery 05/02 #Needs spine surgery RECOMMENDATIONS: - HD as per MWF. Do HD tomorrow as he missed Saturday HD. - Continue midodrine prior to HD. - Renal MV and Renal diet. Ayleen Kurtz MD Nephrology Fellow Daytime / Weekend Renal Pager [phone] After 7 pm Emergencies Pager [phone] Attending/Teaching Physician Note: I saw and evaluated the patient, I personally obtained kibry and critical portions of the history and physical exam. I reviewed the fellow's documentation and discussed the patient with the fellow. I agree with the fellow's medical decision making as documented in the fellow's note. Additional findings, impression, and plan are as follows: ESKD admitted s/p fall with multiple trauma - no emergent indication for HD today, will defer dialysis until tomorrow and plan to dialyze pt on TTS schedule this week while in-house unless pt hemodynamics worsen Alan Miranda MD GLUCOSE, FINGERSTICK-IN OFFICE Collecte d: 05/04/2024 4:53 PM Status: F Source: THE [facility] TYPE CODE TESTS RESULT OUT OF RANGE REFERENCE UNITS LAB [place] GLUCOSE, POC 192 High 74-109 mg/dL Performed By: #### [id number] ### # NURSING GLUCOSE PROGRAM [address] [place] [address], [id number] PROGRESS NOTES Observed: 05/04/2024 3:27 PM Status: COMPLETED Source: THE [facility] SYSTEM 05/04/24 1400 Victim Victim N Patient Referred By Inpatient List Direct Contact Made N [facility] 05/04/2024 Reason for Services: Initial Visit [facility] staff attempted to educate Patient and/or Family on the Trauma Recovery [facility] and Resources Available. The medical staff was in the room during the time of the visit. [facility] staff will attempt to engage with Patient and/or Family the next business day. [facility] Main Line: [phone] PROGRESS NOTES Observed: 05/04/2024 2:57 PM Status: COMPLETED Source: [facility] 05/04/24 1400 Victim Victim N Patient Referred By Inpatient List Direct Contact Made N [facility] 05/04/2024 Reason for Services: Initial Visit [facility] staff attempted to educate Patient and/or Family on the [facility] and Resources Available. Patient was Receiving Medical Care at time of visit. [facility] staff will attempt to engage with Patient and/or Family the next business day. [facility] Main Line: [phone] CONSULTS Observed: 05/04/2024 1:45 PM Status: COMPLETED Source: THE [facility] OCCUPATIONAL THERAPY INITIAL EVALUATION Patient seen from 1142 to 1201 on GC 5 West unit for 19 minutes. Co-evaluation with PT for safe handling of ICU lines/monitors and to advance mobility of medically complex patient. 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 Diagnosis: - Right L1-L3 TP Fx - Anterior tension ban disruption of T11 - Right superior/inferior pubic rami Fx w/ extension into acetab - Left scapular Fx w/ intramuscular shoulder hematoma - Bilateral sacral Ala Fx - Right 2,3,4,5,6,7,8 Rib Fx - Left 4,5,6,7,8 Rib Fx - Bilateral pulmonary contusions - Right pleural effusion - Trace hemoperitoneum - Right distal femur fx - Acute blood loss anemia - Hemorrhagic shock Precautions/Activity Order: NWB BLE, WBAT LUE, progressive mobility, full code Procedures this admit: 05/02/24 Dr Biggs Intramedullary rodding right femoral shaft fracture Percutaneous fixation posterior pelvis Insertion and removal of proximal tibia skeletal traction pin Exam under anesthesia pelvis Closed treatment of left scapular body fracture without manipulation Past Medical and Surgical History: hyperparathyroidism, pacemaker, ARASH, CAROL, HLD, GERD, depression, ESRD on HD via RUE fistula, HTN, systolic HF, A-fib SUBJECTIVE: Patient Subjective: I can't do it girls. Patient Identified Goal(s): pain control Home Living Situation- lives alone Prior Functional Status: Independent Living, not working, drives, ambulates without device Assistance Available at Home: intermittent assist from friends/family , not 04/02 Patient lives in a 1 story home 3 stairs to enter. Full Bathroom on 1 level Bedroom on 1 level. Equipment available at home: no equipment OBJECTIVE: Patient Identification: patient verbalizing his/her name and date of . Risks and benefits of occupational therapy: Patient informed of risks and benefits of treatment Appearance: IV, tele, BP cuff, pulse ox, caceres, SCD, A-line, RUE AVF , surgical dressings Alertness: WFL Affect: anxious Cooperation/Behavior: cooperative, pain focused Communication: WFL Pain: Pain ratin/10, Location: LUE, pelvis , ribs Pain Relief Interventions Implemented: RN aware and reports patient received medication according to time schedule Self Care: Assistance Level Dep Max Mod Min CG CS DS DE I Set-Up Comment Feeding x x Eating lunch end of session Assist to open containers Grooming/Hygiene x Wash face/hands Don /doff glasses Bathing:UB x Anticipated Bathing:LB x Anticipated Dressing:UB x Don gown Dressing: LB x Don socks Toileting x Caceres Bed cote Transfers/Bed Mobility: Assistance Level Dep Max Mod Min CG CS DS DE I Set-Up Comment Toilet Transfers Bed Transfers Bed Mobility X2-3 Rolling side/side Bed to chair x4 Lateral slide to recliner using inflated TAP system Patient remained seated in bedside chair end of session with chair alarm and chair cushion in palce. Call caceres and telephone within reach. Patient instructed to call for staff assist when ready to return to bed and for all mobility. RN aware of patient location and mobility status. Endurance for Self Care: Impaired Static Sitting Balance: Fair Dynamic Sitting Balance: Poor UE Motor: RUE strength/ROM observed to be WFL L distal ROM /strength observed to be WFL, L shoulder AROM <50% , does not tolerate PROM Educated on importance of maintaining ROM, WBAT per Dr Biggs Vision/Perception: WFL Cognition: Orientation: Oriented to person, place, and time Follows Commands: WFL Attention: WNL Memory: WFL Problem Solving: WFL Safety/Judgement: insight beginning to develop Sequencing: WFL Other Specialized Tests: None Patient/Family Education: Instructed patient in roles of therapy, post-op precautions/restrictions, discharge recommendations, importance of OOB activity ding hospital stay 05/04/2024 6 Clicks Daily Activity OT Help from another person Eating meals 4 Help from another person taking care of personal grooming 2 Help from another person bathing 2 Help from another person putting on and taking off regular upper body clothing 2 Help from another person putting on and taking off regular lower body clothing 1 Help from another person toileting 1 OT 6 Clicks Score 12 6 Click Score Guidelines: 1 - Unable = Total/Dependent Assist 2 - A lot = Max/Moderate Assist 3 - A little = Minimum/Contact Guard Assist/Supervision 4 - Non = Modified [place]/Independent ASSESSMENT: Recommend further therapy services in a Skilled Rehab Setting once medically cleared. Will continue to follow patient while in hospital as appropriate. Problem List: decreased ADLs, impaired upper extremity motor function, decreased endurance, decreased functional transfers/mobility, impaired balance, decreased home management tasks/IADLs, decreased functional activity tolerance, and increased pain Goals (to be achieved by discharge from acute care): Patient will perform grooming with Distant supervision Patient will dress upper body with Contact Guard Patient will perform bed mobility with Moderate assistance Patient will perform bed transfers with Moderate assistance x 2 using slide board Patient will increase endurance sufficient to perform 10 min ADL with rest breaks PRN Patient will increase ROM in left UE for max level of ADL independently Demonstrate pain-free functional PROM in left UE. Patient will demonstrate safety awareness as evidenced by compliance with NWB BLE for ADL and mobility Report reduced pain level to allow for participation in ADL/IADL PLAN: Amado Tran will be seen 1-3 times a week. Treatment to include: functional mobility training, ADL retraining, functional task simulation, adaptive equipment / compensatory strategy training, patient / family education and discharge planning, and referral to appropriate support services able to discuss the evaluation findings and treatment plan with the patient/family. The patient/family did participate in the development of plan and goals. Jodee Potts MOT, OTR/L Secure chat with questions NA = Not Assessed, I = Independent, DE = Modified Independent, Sup = Supervised, Set up = Physical Assistance for Set-up Only, Min = Minimal Assistance, Mod = Moderate Assistance, Max = Max assistance; Dep = Dependent; AROM = Active Range of Motion;PROM=Passive Range of Motion; MMT = Manual Muscle Test; UB = Upper Body; LB = Lower Body CONSULTS Observed: 05/04/2024 1:32 PM Status: COMPLETED Source: THE [facility] PHYSICAL THERAPY ACUTE EVALU ATION Referral received, chart reviewed. Order received and was accidentally DC prior to note being completed. OK for PT eval per MD. Patient seen from 11:42am to 12:01pm on GC5W unit for 19 minutes. Co-session with OT necessary for safe and professional assist with mobility assessment and training. Admit date/time: 04/30/2024 4:48 PM Reason for Admit: s/p fall into 6 foot hole at [employer] Diagnosis: - Right L1-L3 TP Fx - Anterior tension ban disruption of T11 - Right superior/inferior pubic rami Fx w/ extension into acetab - Left scapular Fx w/ intramuscular shoulder hematoma - Bilateral sacral Ala Fx - Right 2,3,4,5,6,7,8 Rib Fx - Left 4,5,6,7,8 Rib Fx - Bilateral pulmonary contusions - Right pleural effusion - Trace hemoperitoneum - Right distal femur fx - Acute blood loss anemia - Hemorrhagic shock - Shock of unknown etiology Precautions: Falls Full Code NWB BLE's WBAT LUE Progressive mobility Procedures this admit: 05/02/[address] Biggs 1. Intramedullary rodding right femoral shaft fracture (CPT 31333). 2. Percutaneous fixation posterior pelvis (CPT 87078). 3. Insertion and removal of proximal tibia skeletal traction pin (CPT 85572). 4. Exam under anesthesia pelvis (CPT 61992). Please insert a 22 modifier for all of the above codes due to increased complexity and difficulty secondary to the patient's morbid obesity, BMI of 46.4. 5. Closed treatment of left scapular body fracture without manipulation Past Medical and Surgical History: PMH: Hyperparathyroidism, Pacemaker, ARASH, CAROL, HLD, GERD, Depression, ESRD (HD MWF, RUE AV Fistula), CKD, HTN, T2DM, Systolic HF, and atrial fibrillation PSH: No past surgical history on file. Identification was verified by patient verbalizing his/her name and date of . and patient's id band and date of . Risks and Benefits of physical therapy: Patient informed of risks and benefits of treatment SUBJECTIVE: Patient Subjective: I can't do it girls. Patient Identified Goal(s): none stated PAPER ROLLER Status: independent with ambulation and ADL's without device. Does not work, does drive. Home: Lives alone in single story home. 3 steps to enter with rails. 0 steps to bedroom/bathroom. Assistance available: prn assist from friends and family Equipment available: none OBJECTIVE: Appearance: Obese, conversion worker, BP cuff, Arterial line, AV fistula, Pulse Oximeter, Oxygen, IV, Caceres, and Sequential Compression Devices (SCDs) Behavior: Awake, Anxious Oriented x 3 Follows 1 step commands consistently and with cues Pain: Site/Location: BLE, ribs, pelvis, back; Pain Scale: 8-9/10 with mobility 5/10 at rest Pain Relief Interventions Implemented: Positioning, Rest, and RN aware and reports patient received medication according to time schedule Passive ROM: Impaired. BLE PROM limited by pain Strength/Active ROM: Impaired RLE grossly 1/5 (limited by pain) and LLE grossly 2-/5 Mobility: Rolling to right: dependent x 2-3 Rolling to left: dependent x 2-3 Transfers: dependent x 4. Lateral slide to chair in supine with use of TAPS. Endurance: Impaired Patient/Family Education: Instructed Patient in roles of therapy. Patient educated on importance of OOB mobility during hospital stay to maintain functional endurance and independence and to decrease risk of medical complications. Patient educated to call for assistance with all mobility. Patient indicates understanding at this time. Patient instructed on NWB BLE's and WBAT LUE. Patient up in chair with call light in reach. Chair alarm intact. DME: With Patients permission ordered no equipment via [employer] Order. If any questions contact [facility] DME Provider at [phone]. 05/04/2024 6 Clicks Basic Mobility PT Difficulty turning over in bed 1 Difficulty sitting down and standing up from a chair with arms 1 Difficulty moving from lying on back to sitting on the side of the bed 1 Help from another person moving to and from bed to a chair 1 Help from another person to walk in hospital room 1 Help from another person climbing 3-5 steps with a railing 1 PT 6 Clicks Score 6 6 Click Score Guidelines: 1 - Total = Requires total assistance, or cannot do at all. 2 - A lot = Requires a lot of help (maximun to moderate assistance) Can use assistive devices. 3 - A little = Requires a little help (supervision, minimal assistance) Can use assistive devices. 4 - None = Does not require any help and does the activity independently. Can use assistive devices. ASSESSMENT: Amado Tran is a 59 year old yo male admitted to [facility] s/p fall. Patient has multiple pelvic fractures, rib fractures, and left scapular fracture that is limiting mobility. Patient would benefit from PT services during acute stay Recommend further therapy services in a Nursing Home Setting once medically cleared. Will continue to follow patient while in hospital as appropriate. Problems: Pain Decreased ROM/strength Decreased functional mobility Decreased endurance Decreased balance Decreased education in exercise/precautions Impaired safety awareness Rehabilitation Potential: Good to improve Goals (to be achieved by discharge from acute care): Patient will achieve acceptable level of pain control to allow participation in therapy. Patient will increase bed mobility to moderate assistance x 2 Patient will be able to sit at edge of bed x 5 minutes with UE support with minimal assist. Patient will be able to perform AAROM to BLE's in supine x 10 reps. Patient will perform transfer bed to/from chair with appropriate device with moderate assistance x 2 Patient will increase ROM/Strength/Endurance/Balance to allow for above goals. PLAN OF CARE: Frequency: Patient to be seen 1-3 times a week Interventions: Functional mobility ROM/Strengthening Home exercise program Discharge planning and equipment ordering as needed Patient /Family education The evaluation findings and treatment plan were discussed with the patient/family. The patient/family indicated understanding and agreement with the plan. Ping Bains, BECKY NA = Not Assessed, I = Independent, DE = Modified Independent, Sup = Supervised, Set up = Physical Assistance for Set-up Only, Min = Minimal Assistance, Mod = Moderate Assistance, Max = Max assistance; Dep = Dependent; AROM = Active Range of Motion; PROM = Passive Range of Motion; MMT = Manual Muscle Test; LE = Lower Extremity GLUCOSE, FINGERSTICK-IN OFFICE Collecte d: 05/04/2024 11:56 AM Status: F Source: THE [facility] TYPE CODE TESTS RESULT OUT OF RANGE REFERENCE UNITS LAB [place] GLUCOSE, POC 213 High 74-109 mg/dL Performed By: #### [id number] ### # NURSING GLUCOSE PROGRAM [address] [facility] [place], [address] PROGRESS NOTES Observed: 05/04/2024 8:33 AM Status: COMPLETED Source: THE [facility] DEPARTMENT OF SURGERY DIVISION OF TRAUMA, BURN, AND CRITICAL CARE TRAUMA INTENSIVE CARE UNIT (TICU) DAILY PROGRESS NOTE Patient: Amado Tran, 59 year old, male : 1965 Admit Date: 04/30/2024 Room: [place] [address] Today's Date: 05/04/2024, Length of stay: 4 day(s) Code Status: Full Code Height: 5' 9 Weight: 142.4 kg BMI: 46.37 SURGICAL ICU - STAFF NOTE Patient seen and examined on 05/04/2024 Interval History/Events: Background: Amado Tran is a 59 year old y/o male with PMH of Hyperparathyroidism, Pacemaker, ARASH, CAROL, HLD, GERD, Depression, ESRD (HD MWF, RUE AV Fistula), CKD, HTN, T2DM, Systolic HF, and atrial fibrillation on Eliquis who presented to via [facility] as an inter facility transfer from [facility] s/p Fall. Per reports Pt was at a instant oil change location when he exited his vehicle to assist the senior quality control technician in opening his vehicle door, when he stepped behind his vehicle he accidentally fell through the floor opening aprox 6ft. Pt. Reports falling straight down, negative LOC, negative head strike. Pt was unable to get up under his own strength, EMS was called and Pt was extricated via EMS/FD, immobilized and transported to [facility] ED. Imagine at OSH demonstrated a Grade 1 splenic injury, multiple bilateral ribs fxs, and multiple pelvic fractures. Pt. Received K-centra, as well as PRBC X 2 and Calcium Gluc. [facility] was requested for transport to for orthopedics and trauma evaluations. EN route Pt received an additionalunit of whole blood. On arrival to pt is alert and oriented x 3, w/GCS-15. Pt. On 4LNC, Labile blood pressures and received an additional PRBC X 1, FFP X 1 in ED. Pt was COTE scanned again here at [facility] given the absence of contrast at OSH. Pt. Had CVC and A-line placed in ED. Hospital Course: 04/30: Admitted to TICU s/p fall with B/L rib fxs, Pelvic fx's, and questionable Grade 1 splenic injury s/p fall at [facility] location. 05/01: Titrated on levophed. CBC trended. Seen by EP for pacer, no interrogation to be performed 2/2 EOL device. Upright XR done. OR deferred. Dialyzed. 05/02: Went to OR with ortho. Pressor requirements improved. One-Liner: Pt is a 59 year old male with PMH of ESRD on HD MWF, T2DM, HFrEF and atrial fibrillation on eliquis who presented as a CAT 1 trauma as a transfer from [facility] and was admitted to the TICU for multiple traumatic injuries including Grade 1 splenic injury, multiple bilateral rib fractures, multiple pelvic fractures resulting from a 6 foot fall into auto mechanical bay. Course complicated by hypotension requiring multiple blood products including PRBC x3, whole blood x1, FFP x1, as well as levophed gtt. Acute overnight events: - Not on BiPAP overnight, ABG 7.288/129/50.1/-2.7/23. BiPAP on at 5 am. Saturating well on 2L NC this morning. - Plan for dialysis today Drips: Levophed @ 0.05 mcg/kg/min Pertinent Labs AND Img: WBC 10, Hgb 7.2, PLT 89. Na 130, K 5.1, improved, CO2 23, Gap 17, Cr 7.69, GFR 7. ABG 7.288, PCO2 50.1, PO2 129 Phos 6.1. Mg 2.1. Lines, Tubes, Drains: CVC - left femoral, RUE fistula, caceres, left art line 2 x PIV on left Vitals AND I/Os: 24 Hour Vitals Range: Vital sign ranges over the past 24 hours (retrieved 05/04/2024 at 8:33 AM): Tmax (24 hours): 98.1 ???F (36.7 ???C) Pulse Av.1 Min: 60 Max: 75 Systolic (24hrs), Av , Min:95 , Max:149 Diastolic (24hrs), Av, Min:28, Max:76 MAP (mmHg) Av.7 mmHg Min: 46 mmHg Max: 81 mmHg Resp Av.9 Min: 12 Max: 24 SpO2 Av.1 % Min: 91 % Max: 100 % Vital Signs: Patient Vitals for the past 24 hrs: BP Temp Temp src Pulse Resp SpO2 O2 Device O2 Flow Rate (l/min) 05/04/24 0800 -- 97.5 ???F (36.4 ???C) Axillary -- -- -- -- -- 05/04/24 0700 -- -- -- 60 13 97 % -- -- 05/04/24 0642 -- -- -- 64 22 97 % -- -- 05/04/24 0636 109/34 -- -- 62 -- -- -- -- 05/04/24 0601 -- -- -- 68 17 100 % BiPAP 2 05/04/24 0600 -- -- -- 68 21 100 % -- -- 05/04/24 0500 -- -- -- 65 16 100 % -- -- 05/04/24 0400 -- 98.1 ???F (36.7 ???C) Axillary 66 14 100 % -- -- 05/04/24 0300 -- -- -- 67 15 100 % -- -- 05/04/24 0200 -- -- -- 65 13 100 % -- -- 05/04/24 0100 -- -- -- 68 16 100 % -- -- 05/04/24 0018 -- -- -- 70 16 100 % Nasal cannula 2 05/04/24 0000 124/44 97.5 ???F (36.4 ???C) Oral 62 16 100 % Nasal cannula 2 05/03/242299 -- -- -- 71 18 100 % -- -- 05/03/242246 -- -- -- 72 17 100 % -- -- 05/03/242202 105/76 -- -- 74 20 100 % Nasal cannula 2 05/03/242199 -- -- -- 73 20 99 % -- -- 05/03/24 2100 149/43 98 ???F (36.7 ???C) Oral 73 17 100 % -- -- 05/03/242043 -- -- -- 68 12 100 % Nasal cannula 2 05/03/242033 -- -- -- 71 20 100 % Nasal cannula 2 05/03/241999 110/30 -- -- 67 18 99 % Nasal cannula 2 05/03/24 1900 128/54 -- -- 72 21 94 % -- -- 05/03/24 1816 95/28 -- -- 74 23 99 % -- -- 05/03/24 1800 -- -- -- 68 19 100 % -- -- 05/03/24 1700 -- 97.6 ???F (36.4 ???C) Oral 73 21 95 % -- -- 05/03/24 1620 -- -- -- 68 24 96 % Nasal cannula 2 05/03/24 1600 -- -- -- 75 16 99 % -- -- 05/03/24 1500 -- -- -- 71 18 91 % -- -- 05/03/24 1400 -- -- -- 73 16 93 % -- -- 05/03/24 1300 -- -- -- 72 18 91 % -- -- 05/03/24 1200 -- -- -- 69 22 96 % Nasal cannula 2 05/03/24 1100 -- -- -- 75 19 94 % -- -- 05/03/24 1000 -- -- -- 68 20 97 % -- -- 05/03/24 0956 -- -- -- -- -- 100 % Nasal cannula 2 05/03/24 0950 -- -- -- 71 17 100 % Nasal cannula 3 05/03/24 0900 -- -- -- 67 17 100 % -- -- 24 Hour I AND Os: In: 500.2 (3.5 mL/kg) [I.V.:175.2 (0.1 mL/kg/hr)] Out: - (0 mL/kg) Net: 500.2 Weight: 142.4 kg Physical Exam: General: Awake and alert, no acute distress. Sitting somewhat upright in bed.. Neurological: AAOx4, GCS-15. HEENT: PERRL, EOMI, no conjunctival injection or scleral icterus. Cardiac: Regular rate and rhythm, NSR on monitor, easily palpable peripheral pulses w/ brisk cap refill. Pulmonary: Clear to auscultation bilaterally. No wheezing, rhonchi, or rales.On 2LNC. Abdomen: Large, rounded, soft, non-tender, non-distended. Pelvic binder in place. Extremities: RLE has dressings in place over the distal and medial thigh which appear clean with mild strikethrough. Distal pulses are 2+ and intact bilaterally. Tenderness on palpation and manipulation of RLE. Compartments soft but tender and mildly swollen compared to contralateral extremity. Otherwise warm, well perfused. Lab Data: 10.0 7.2 / / .2 CBC: 05/04/2024: 1:45 AM 130 95 61 / 184 5.1 23 7.69 BMP: 05/04/2024: 1:45 AM BMP: BMP (last 3 years, up to 8 values) 05/04/2024 05/03/2024 05/02/2024 05/02/2024 05/02/2024 05/01/2024 04/30/2024 1:45 AM 3:58 AM 2:45 PM 8:50 AM 2:14 AM 12:12 AM 8:38 PM Na 130 132 131 133 134 135 136 K 5.1 5.3 5.5 4.3 4.7 5.1 5.3 Cl 95 96 98 100 98 103 102 CO2 23 24 19 -- 27 24 22 Gap 17 17 20 -- 14 13 17 Glu 184 246 293 190 223 151 268 BUN 61 43 31 -- 23 32 34 Cr 7.69 6.81 5.71 -- 4.89 6.42 6.30 Ca 7.8 8.1 8.4 -- 8.2 8.8 8.5 eGFR 7 9 11 -- 13 9 9 CBC: CBC (last 3 years, up to 8 values) 05/04/2024 05/03/2024 05/03/2024 05/02/2024 05/02/2024 05/02/2024 05/01/2024 05/01/2024 1:45 AM 5:00 AM 3:58 AM 2:45 PM 8:50 AM 2:14 AM 8:24 PM 2:55 PM WBC 10.0 10.5 10.4 15.2 -- 11.2 13.7 10.7 RBC 2.27 2.18 2.16 2.72 -- 3.21 3.31 3.39 Hgb 7.2 6.9 6.9 8.5 9.6 9.8 10.4 10.6 Hct 21.2 20.3 20.1 25.6 29.6 29.9 30.8 31.7 MCV 94 93 93 94 -- 93 93 94 RDW 17.0 17.2 17.5 17.6 -- 18.0 17.9 18.0 Plt 89 72 69 83 -- 81 89 79 PT/PTT/INR: PT/PTT/INR (last 3 years, up to 8 values) 05/01/2024 05/01/2024 04/30/2024 4:51 PM 10:10 AM 8:44 PM aPTT 29 -- -- INR -- 1.16 1.29 Type AND Screen: Type AND Screen (Last result in the past 30 days) 04/30/2024 04/30/2024 5:21 PM 4:30 PM ABO Rh A Positive A Positive Screen Int. -- Negative ABG: Arterial Blood Gases T Site Mode LPM FIO2 pH pCO2 pO2 Sat Base Ex HCO3- A-a 05/04/24 0139 Nasal Canula 3 LPM 7.288 50.1 129 98.9 -2.7 23 BNP: No result for BNP Hepatic Panel: LFT's (last 3 years, up to 8 values) No lab values to display. Glucose: Fingerstick Glucose (last 72 hours) (Last 10 results in the past 72 hours) Glucose 05/04/24 0751 211 05/03/24 2142 193 05/03/24 1611 179 Comment: Notified RN RONY LOPEZ
05/03/24 1220 222 05/03/24 0956 235 Comment: Notified RN RONY LOPEZ
05/03/24 0459 279 05/02/24 2218 308 05/02/24 1623 306 Comment: Notified RN RONY LOPEZ
05/02/24 1409 276 Comment: Notified RN RONY LOPEZ
05/02/24 0358 210 Comment: Notified RN RONY LOPEZ
A1c: No results found for: HBA1C TSH: No results found for: TSH Blood Culture: Blood Culture No lab values to display. Urine Culture: Urine Culture (last 1 year) No lab values to display. Respiratory Culture: Respiratory Culture, Misc No lab values to display. Wt Readings from Last 5 Encounters: 04/30/24 (!) 314 lb (142.4 kg) Imaging Results (over previous 24 hours): CXR: IMPRESSION: Suspected trace left apical pneumothorax. No appreciable right-sided pneumothorax. Otherwise unchanged pulmonary findings as detailed. Assessment and Plan: Diagnosis s/p fall down ~ 6Ft hole: - Right L1-L3 TP Fx - Anterior tension ban disruption of T11 - Right superior/inferior pubic rami Fx w/ extension into acetab - Left scapular Fx w/ intramuscular shoulder hematoma - Bilateral sacral Ala Fx - Right 2,3,4,5,6,7,8 Rib Fx - Left 4,5,6,7,8 Rib Fx - Bilateral pulmonary contusions - Right pleural effusion - Trace hemoperitoneum - Right distal femur fx - Acute blood loss anemia - Hemorrhagic shock - Shock of unknown etiology Associated Hospital Diagnosis: - Hyperkalemia - Hypomagnesemia PMH: - Hyperparathyroidism - ARASH - CAROL - Atrial- Fibrillation - HTN - HLD - Pacer - GERD - ESRD - Depression - CKD - T2DM - CHF Home Medications: ASA 81mg daily Insulin NPH Pioglitazone 30mg daily Sertraline 100mg daily Amiodarone 200mg Sevelamer 1600mg TID Apixaban 5mg daily Atorvastatin 40mg daily Gabapentin 100mg daily Midodrine 10mg daily Omeprazole 40mg daily Incidental Findings: - Cholelithiasis - Indeterminate right adrenal nodule Plan: Neurological: # Acute post traumatic pain # Hx of Depression - Acetaminophen 1G Q6hrs sched - Oxycodone 5/10mg Q4hrs PRN - Topical Lidocaine patch - Dilaudid 0.5 mg IV Q2H PRN for Physical Therapy - Robaxin 750mg Q6H - Cont home Gabapentin, Zoloft Cardiovascular: # Hx of HTN, HLD, CHF, Pacer, A-fib - Cardiology consulted for pacer interrogation given need for MRI -> seen by EP and per them would be ok for MRI as battery is - cannot be interrogated given age - see separate note from EP - Cont TELE monitoring - Maintain MAP > 65 - cont home Amio, Lipitor, Midodrine Q8h - Holding home ASA, Apixaban - last echo 01/05, LVEF 60%, no need for repeat - EKG obtained - Wean levophed as able - Continue Midodrine 10 mg Q8H PO Respiratory: # Hx of ARASH - Cont Pulse ox monitoring - Maintain SpO2 >92%, Provide supplemental o2 as needed - wean as tolerated - 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 - Encourage incentive spirometry - requiring Bipap at bedtime for suspected ARASH, hypoventilation - has home CPAP prescribed, noncompliant GI/Diet: # Hx of GERD - Diet: Regular, Renal diet - Encourage PO intake - Can add renal boost if persistent poor PO intake - Senna 8.6 mg PO at bedtime/ Miralax daily - Discontinued Zofran 4 mg IV q6h PRN no concerns for nausea/vomiting - Continue pantoprazole in place of home esomeprazole Renal/Electrolytes: # Hx of ESRD - Nephrology consulted aprec recs ->dialysis per their recs - mIVF: none given renal disease - BMP/Mg/P daily - Replace electrolytes as indicated - Maintain Mg >2, K >4 - Measure strict I AND O - Continue home Renvela - s/p Lokelma x 2, K 5.1 Infectious Disease: - Afebrile, no leukocytosis - last dose ancef for perioperative period this AM, per renal dosing 1g - Monitor temperature and WBC for signs of infection Hematology: # Hemorrhagic shock - Hgb 7.2 from 6.9, will follow up after dialysis - Maintain active T/S - CBC daily - Maintain hemoglobin >7 Endocrine: # Hx of Hyperparathyroidism, T2DM - POCT 180 - 200s - Insulin Sliding Scale increased to 4 - 14 units - POCT QAC and at bedtime - Hold home Insulin NPH, pioglitazone Musculoskeletal: # Pelvic Fx's # Right distal femur fx # Left Scap Fx - Orthopedics Consulted aprec recs: OR 05/02 -> - Pelvic xray AP post op - Ancef 3 G q8h - complete - NWB BLE - Pain control: recommend multimodal - tylenol standing q6h, oxycodone q4h PRN, tramadol PRN, dilaudid PRN for breakthrough -PT/OT consult - May resume DVT PPX as per primary team -FU with Dr. Biggs in 2 weeks at dispo - Ortho spine: - Not cleared for OR with Ortho until Tspine uprights complete - C/T/L Precautions until all imaging reviewed and plans finalized - Please obtain pre-operative labs (BMB, CBC, Coags, T AND S, UA, CXR, EKG) - Hold DVT ppx in anticipation of possible surgery - Consideration of operative fixation pending T spine uprigthts. - PT/OT consulted - follow-up rec's - Progressive mobility guidelines Prophylaxis: - SCDs Bilaterally - with shock improved and low concern for active bleeding start on subcutaneous heparin 5000mg q8h Follow Up: - PCP: No primary care provider on file. - ortho: with Dr. Biggs in 2 weeks at dispo LDA/Restraints: - PIV X 2 - A-line - CVC - Caceres Code Status: - Full Code Disposition: - Cont TICU care and MGMT Patient seen and evaluated with Attending Surgeon Dr. Asencio. Please see attending attestation for final plan/recommendations. Gorge Reed MD Anesthesiology Medical Aide, PGY1 Teaching Physician Note: I saw and evaluated the patient. I personally obtained the kirby and critical portions of the history and physical exam. I reviewed the resident's documentation and discussed the patient with the resident. I agree with the resident's medical decision making as documented in the resident's note. Increase midodrine Decrease levophed as able. Nwb BLE- pending PT/OT consults WBAT LUE per operative noted Plan for HD today. Pt states he no longer takes insulin at home, he takes ozempic only Farrah Asencio MD GLUCOSE, FINGERSTICK-IN OFFICE Collecte d: 05/04/2024 7:51 AM Status: F Source: [facility] TYPE CODE TESTS RESULT OUT OF RANGE REFERENCE UNITS LAB [place] GLUCOSE, POC 211 High 74-109 mg/dL Performed By: #### [id number] ### # NURSING GLUCOSE PROGRAM [facility] [place], [address] PROGRESS NOTES Observed: 05/04/2024 6:10 AM Status: COMPLETED Source: [facility] Progress Note Amado Tran [id number] A/P: PT is a 59 year old S/P Right femur retrograde nail, open reduction and internal fixation right femur, right sacroiliac percutaneous reduction and fixation - Pelvic xray AP post op - Ancef 3 G q8h for 2 more doses - NWB BLE - Pain control: recommend multimodal - tylenol standing q6h, oxycodone q4h PRN, tramadol PRN, dilaudid PRN for breakthrough -PT/OT consult - May resume DVT PPX as per primary team -FU with Dr. Biggs in 2 weeks at dispo -Orthopaedics will respectfully sign off and follow peripherally S: Doing well this AM. Pain moderately controlled O: Vitals Recorded in This Encounter 05/04/2024 0100 05/04/2024 0200 05/04/2024 0400 05/04/2024 0542 05/04/2024 0601 Pulse: 68 65 -- -- 68 Resp: 16 13 -- -- 17 Temp: -- -- 98.1 ???F (36.7 ???C) -- -- Temp src: -- -- Axillary -- -- SpO2: 100 % 100 % -- -- 100 % Pain Score: -- -- -- 8 -- CBC/PT/INR 05/04/2024 05/03/2024 05/03/2024 05/02/2024 05/02/2024 05/02/2024 05/01/2024 05/01/2024 1:45 AM 5:00 AM 3:58 AM 2:45 PM 8:50 AM 2:14 AM 8:24 PM 4:51 PM WBC 10.0 10.5 10.4 15.2 -- 11.2 13.7 -- RBC 2.27 2.18 2.16 2.72 -- 3.21 3.31 -- Hgb 7.2 6.9 6.9 8.5 9.6 9.8 10.4 -- Hct 21.2 20.3 20.1 25.6 29.6 29.9 30.8 -- MCV 94 93 93 94 -- 93 93 -- RDW 17.0 17.2 17.5 17.6 -- 18.0 17.9 -- Plt 89 72 69 83 -- 81 89 -- aPTT -- -- -- -- -- -- -- 29 Basic Metabolic Panel 05/04/2024 05/03/2024 05/02/2024 05/02/2024 05/02/2024 1:45 AM 3:58 AM 2:45 PM 8:50 AM 2:14 AM Na 130 132 131 133 134 K 5.1 5.3 5.5 4.3 4.7 Cl 95 96 98 100 98 CO2 23 24 19 -- 27 Gap 17 17 20 -- 14 Glu 184 246 293 190 223 BUN 61 43 31 -- 23 Cr 7.69 6.81 5.71 -- 4.89 Ca 7.8 8.1 8.4 -- 8.2 Mg 2.1 2.0 2.0 -- 2.0 PO4 6.1 5.2 5.4 -- 4.2 Exam: NAD, alert. RLE: +DP pulse SILT DP/SP/S/S/Tib Wiggles toes 5/5 EHL/FHL/DF/PF Dressing with some strikethrough Dona Allred MD Orthopaedic Surgery, PGY 1 PLEASE INCLUDE ALL MEMBERS OF TEAM A ON Epic CHAT Dona Allred MD PGY1 Epic Chat Works Best Octaviano Snyder MD PGY3 Epic Chat Works Best After 5 pm and on weekends, please page the on-call resident ([phone]) with questions or concerns. BASIC METABOLIC PANEL Collected: 2023 1:45 AM Status: F Source: [facility] TYPE CODE TESTS RESULT OUT OF RANGE REFERENCE UNITS LAB GLU GLU 184 High 74-109 mg/dL LAB NA3 NA 130 Low 136-145 mmol/L LAB POT K 5.1 High 3.5-5.0 mmol/L LAB CO2 CO2 23 21-31 mmol/L LAB CHLOR CL 95 Low 98-107 mmol/L LAB BUN BUN 61 High 7-25 mg/dL LAB CREAT CREAT 7.69 High 0.70-1.30 mg/dL LAB CA CA 7.8 Low 8.6-10.3 mg/dL LAB ANION GAP ANION GAP 17 10-20 LAB eGFR ESTIMATED GFR (CKD-EPI) 7 Low >=60 mL/min/1 .73sqm Result Comment: 2020 CKD EPI Equation using Creatinine without Race Comment: Estimated glomerular filtration rate (eGFR) is calculated without a race coefficient. Values should be interpreted in the context of the patient's full clinical presentation. Reference: 1. Christophe C, Sagrario M, Gena DC, et al.. A Unifying Approach for GFR Estimation: Recommendations of the NKF-ASN Task Force on Reassessing the Inclusion of Race in Diagnosing Kidney Disease. [place] Journal of Kidney Diseases 202;79(2):268- 88.e1. 2. N Engl J Med 1 Vol. 385 Issue 19 Pages 2835-9854 Performed By: #### CH8, PHOS , MG #### [facility] [address] [place] [address], MAGNESIUM Collected: 4 1:45 AM Status: F Source: [facility] SYSTEM TYPE CODE TESTS RESULT OUT OF RANGE REFERENCE UNITS LAB mag MG 2.1 1.9-2.7 mg/dL Performed By: #### CH8, PHOS , MG #### [facility] [address] [place] [address], PHOSPHORUS Collected: 4 1:45 AM Status: F Source: [facility] TYPE CODE TESTS RESULT OUT OF RANGE REFERENCE UNITS LAB PHOS PHOS 6.1 High 2.5-5.0 mg/dL Performed By: #### CH8, PHOS , MG #### [facility] [address] [place] [address], COMPLETE BLOOD COUNT Collected: 024 1:45 AM Status: F Source: [facility] TYPE CODE TESTS RESULT OUT OF RANGE REFERENCE UNITS LAB WBC WBC 10.0 4.5-11.5 K/uL LAB RBC RBC 2.27 Low 4.50-5.90 M/uL LAB HGB HGB 7.2 Low 13.9-16.3 g/dL LAB HCT HCT 21.2 Low 41.0-53.0 % LAB MCV MCV 94 80-100 fL LAB MCH MCH 31.7 26.0-34.0 pg LAB MCHC MCHC 33.8 32.0-35.9 g/dL LAB PLT PLT 89 Low 150-400 K/uL LAB RDW RDW-CV 17.0 High 11.5-14.5 % LAB MPV MPV 10.9 7.5-11.2 fL Performed By: #### CBC #### [facility] [address] [place] [address], BLOOD GAS, ARTERIAL Collected: 05/04/20 24 1:39 AM Status: F Source: [facility] TYPE CODE TESTS RESULT OUT OF RANGE REFERENCE UNITS LAB MODE MODE Nasal Canula LAB fio2 FIO2 (CATEGORY) 3 LPM LAB CR PHA CR PHA 7.288 Low 7.350-7.450 LAB pco2 CR PCO2 50.1 High 35.0-45.0 mm Hg LAB CR PO2 CR PO2 129 High 80-100 mm Hg LAB CR %O2 SAT CR % O2 SAT 98.9 95.0-99.0 % LAB CR ANAYA CR ANAYA -2.7 Low -2.0-3.0 mmol/L LAB CPCR HCO3 CR HCO3 23 21-28 mmol/L Performed By: #### CR BGA ## ## [facility] [address] [place], [place], GLUCOSE, FINGERSTICK-IN OFFICE Collecte d: 05/03/2024 9:42 PM Status: F [facility] TYPE CODE TESTS RESULT OUT OF RANGE REFERENCE UNITS LAB [place] GLUCOSE, POC 193 High 74-109 mg/dL Performed By: #### [id number] ### # NURSING GLUCOSE PROGRAM [address] [place], [place], GLUCOSE, FINGERSTICK-IN OFFICE Collecte d: 05/03/2024 4:11 PM Status: F Source: [facility] TYPE CODE TESTS RESULT OUT OF RANGE REFERENCE UNITS LAB [place] GLUCOSE, POC 179 High 74-109 mg/dL Result Comment: Notified FRANNIE URIBE MD Performed By: #### [id number] ### # NURSING GLUCOSE PROGRAM [address] [place], [address] PROGRESS NOTES Observed: 05/03/2024 1:58 PM Status: COMPLETED Source: [facility] Attestation signed by Kayode Rolon MD at 05/03/2024 7:36 PM Attending/Teaching Physician Note: I saw and evaluated Amado Tran, I personally obtained kirby and critical portions of the history and physical exam. I reviewed the fellow's documentation and discussed the patient with the fellow. I agree with the fellow's medical decision making as documented in the fellow's note. Additional findings, impression, and plan are as follows: Additional Findings, Impression and Plan: Amado Tran is a 59 year old year old, with a PMHx of ESRD on HD MWF via RUE AVG presenting s/p fall with Grade 1 splenic injury, multiple bilateral ribs fxs, and multiple pelvic fractures. S/p OR 05/02. Nephrology consulted for ESRD management ESRD on HD MWF - last HD 05/01 - volume: hypervolemic - electrolytes: hyponatremia from impaired free water deficit, hyperkalemia - acid/base: WNL - anemia: from OR and CKD, hgb below goal - CKDMBD: phos elevated, calcium low though albumin unknown. Plan: - next HD Saturday, continue MWF schedule. Noted low dose pressor though attempting to avoid placement of a trialysis line - please make sure midodrine given 30 mins prior to HD. - resume renal multivitamin - epo with HD Kayode Rolon MD Nephrology Attending Nephrology Follow-up Note Amado Tran 59 year old 314 lbs MRN/Room: [address] [place] [address] Subjective: No acute event overnight.Hemodynamically stable now but was on pressure support over night. Objective: Meds: midodrine 10 mg 3x Daily with Meals insulin regular 2-12 Units 4x Daily AC AND HS sodium zirconium cyclosilicate 5 g 2x Daily Heparin Sodium (Porcine) PF 5,000 Units Every 8 hours acetaminophen 1,000 mg q6h nystatin 2x Daily albuterol 2.5 mg QID RT sevelamer carbonate 800 mg 3x Daily with Meals amiodarone 200 mg Daily atorvastatin 40 mg At Bedtime gabapentin 100 mg At Bedtime pantoprazole 40 mg Daily 30 min before breakfast sertraline 100 mg Daily polyethylene glycol 17 g Daily methocarbamol 750 mg 4x Daily lidocaine 2 Patch Every 24 hours senna 8.6 mg At Bedtime norepinephrine (LEVOPHED) infusion orderable Stopped (05/03/24 1001) ondansetron 4 mg Q6H PRN albuterol 2.5 mg Q4H PRN oxyCODONE 10 mg Q4H PRN oxyCODONE 5 mg Q4H PRN dextrose iv for hypoglycemia orderable 125 mL PRN Or glucagon 1 mg PRN Or dextrose 15 g of glucose PRN Or dextrose 30 g of glucose PRN Vital sign ranges over the past 24 hours (retrieved 05/03/2024 at 1:59 PM): Tmax (24 hours): 99.9 ???F (37.7 ???C) Pulse Av Min: 66 Max: 85 Systolic (24hrs), Av , Min:92 , Max:138 Diastolic (24hrs), Av, Min:18, Max:122 MAP (mmHg) Av.4 mmHg Min: 45 mmHg Max: 130 mmHg Resp Av.4 Min: 10 Max: 26 SpO2 Av.2 % Min: 79 % Max: 100 % Patient Vitals for the past 24 hrs: BP Temp Temp src Pulse Resp SpO2 O2 Device O2 Flow Rate (l/min) 05/03/24 1200 -- -- -- 69 22 96 % Nasal cannula 2 05/03/24 1100 -- -- -- 75 19 94 % -- -- 05/03/24 1000 -- -- -- 68 20 97 % -- -- 05/03/24 0956 -- -- -- -- -- 100 % Nasal cannula 2 05/03/24 0950 -- -- -- 71 17 100 % Nasal cannula 3 05/03/24 0900 -- -- -- 67 17 100 % -- -- 05/03/24 0800 -- 97.4 ???F (36.3 ???C) Oral 66 15 100 % Nasal cannula 3 05/03/24 0718 105/45 -- -- 68 22 79 % -- -- 05/03/24 0700 -- -- -- 70 16 100 % -- -- 05/03/24 0620 -- 98.1 ???F (36.7 ???C) Axillary 75 26 98 % -- -- 05/03/24 0601 136/53 98.1 ???F (36.7 ???C) Axillary 70 22 100 % -- -- 05/03/24 0600 -- -- -- 71 23 100 % -- -- 05/03/24 0500 -- -- -- 68 21 100 % -- -- 05/03/24 0400 -- 98.1 ???F (36.7 ???C) Axillary 68 16 97 % Nasal cannula 3 05/03/24 0300 -- -- -- 71 18 100 % -- -- 05/03/24 0200 -- -- -- 73 15 100 % -- -- 05/03/24 0100 -- -- -- 78 22 100 % -- -- 05/03/24 0016 -- -- -- 80 16 100 % Nasal cannula 3 05/03/24 0000 -- 97.5 ???F (36.4 ???C) Oral 82 21 96 % Nasal cannula 3 05/02/24 2300 -- -- -- 80 25 99 % -- -- 05/02/242217 -- -- -- 83 20 100 % -- -- 05/02/242199 -- -- -- 84 24 99 % -- -- 05/02/24 2134 123/55 -- -- 83 -- -- -- -- 05/02/24 2100 138/122 99.9 ???F (37.7 ???C) Axillary 83 26 99 % Nasal cannula 3 05/02/242014 -- -- -- 80 20 100 % Nasal cannula 3 05/02/242004 -- -- -- 78 17 100 % Nasal cannula 3 05/02/241999 -- -- -- 77 10 99 % Nasal cannula 3 05/02/24 1900 118/52 -- -- 85 19 95 % Nasal cannula 3 05/02/24 1800 123/108 -- -- 82 26 100 % -- -- 05/02/24 1730 119/18 -- -- 80 24 100 % -- -- 05/02/24 1708 -- -- -- 81 21 100 % Nasal cannula 3 05/02/24 1700 92/56 -- -- 79 12 100 % -- -- 05/02/24 1657 -- -- -- 82 18 100 % Nasal cannula 5 05/02/24 1600 -- 98.3 ???F (36.8 ???C) Axillary 78 18 96 % Nasal cannula 5 05/02/24 1500 -- -- -- 77 15 95 % -- -- 05/02/24 1409 -- 97.7 ???F (36.5 ???C) Axillary -- -- -- -- -- 05/02/24 1400 -- -- -- 79 16 98 % BiPAP 3 Intake/Output Summary (Last 24 hours) at 05/03/2024 1359 Last data filed at 05/03/2024 1000 Gross per 24 hour Intake 772.45 ml Output 0 ml Net 772.45 ml General appearance: no distress Eyes: non-icteric Skin: no apparent rash Heart: [id number] Lungs: CTA bilat no wheezing/crackles Abdomen: soft, nt/nd Extremities: no edema bilat Caceres Neuro: No FND,no asterixis Access RUE AVG with bruit and thrill Blood Labs: Arterial Blood Gases T Site Mode LPM FIO2 pH pCO2 pO2 Sat Base Ex HCO3- A-a 05/03/24 0354 Nasal Canula 3 LPM 7.336 46.0 166 97.7 -1.3 24 05/02/24 1436 BIPAP 3 LPM 7.296 43.2 83 95.9 -5.2 20 CBC/PT/INR 05/03/2024 05/03/2024 05/02/2024 05/02/2024 05/02/2024 05/01/2024 05/01/2024 05/01/2024 5:00 AM 3:58 AM 2:45 PM 8:50 AM 2:14 AM 8:24 PM 4:51 PM 2:55 PM WBC 10.5 10.4 15.2 -- 11.2 13.7 -- 10.7 RBC 2.18 2.16 2.72 -- 3.21 3.31 -- 3.39 Hgb 6.9 6.9 8.5 9.6 9.8 10.4 -- 10.6 Hct 20.3 20.1 25.6 29.6 29.9 30.8 -- 31.7 MCV 93 93 94 -- 93 93 -- 94 RDW 17.2 17.5 17.6 -- 18.0 17.9 -- 18.0 Plt 72 69 83 -- 81 89 -- 79 aPTT -- -- -- -- -- -- 29 -- WBC/Diff 04/30/2024 5:22 PM Neutro% 80.0 Bands% 9 Lymphs% 4.0 Monos% 5.0 Basos% 1.0 Basic Metabolic Panel 05/03/2024 05/02/2024 05/02/2024 05/02/2024 05/01/2024 04/30/2024 3:58 AM 2:45 PM 8:50 AM 2:14 AM 12:12 AM 8:38 PM Na 132 131 133 134 135 136 K 5.3 5.5 4.3 4.7 5.1 5.3 Cl 96 98 100 98 103 102 CO2 24 19 -- 27 24 22 Gap 17 20 -- 14 13 17 Glu 246 293 190 223 151 268 BUN 43 31 -- 23 32 34 Cr 6.81 5.71 -- 4.89 6.42 6.30 Ca 8.1 8.4 -- 8.2 8.8 8.5 Mg 2.0 2.0 -- 2.0 2.3 1.6 PO4 5.2 5.4 -- 4.2 3.8 -- Cultures: Urine Culture No lab values to display. ASSESSMENT: Amado Tran is a 59 year old Year old , with PMHx of ESRD MWF via RUE AVG, presented with fall , splenic injury rib and pelvic fracture. S/P ORIF. Nephrology is following for ESRD management. ESRD on HD MWF - last HD 05/01 - volume: WNL - electrolytes: hyponatremia from impaired free water deficit - acid/base: WNL - anemia: from OR and CKD, hgb below goal - CKDMBD: phos elevated, calcium low though albumin unknown. RECOMMENDATIONS: - HD as per MW. -Continue midodrine prior to HD. -Renal MV and Renal diet. -Will follow. Rosalba Moe MD Nephrology Fellow Daytime / Weekend Renal Pager [phone] After 7 pm Emergencies Pager [phone] GLUCOSE, FINGERSTICK-IN OFFICE Collecte d: 05/03/2024 12:20 PM Status: F Source: [facility] TYPE CODE TESTS RESULT OUT OF RANGE REFERENCE UNITS LAB [place] GLUCOSE, POC 222 High 74-109 mg/dL Performed By: #### [id number] ### # NURSING GLUCOSE PROGRAM [address] [place] [address], [address] PROGRESS NOTES Observed: 05/03/2024 11:57 AM Status: COMPLETED Source: [facility] Progress Note Amado Tran [id number] A/P: PT is a 59 year old S/P Right femur retrograde nail, open reduction and internal fixation right femur, right sacroiliac percutaneous reduction and fixation - Pelvic xray AP post op - Ancef 3 G q8h for 2 more doses - NWB BLE - Pain control: recommend multimodal - tylenol standing q6h, oxycodone q4h PRN, tramadol PRN, dilaudid PRN for breakthrough -PT/OT consult - May resume DVT PPX as per primary team -FU with Dr. Biggs in 2 weeks at dispo S: Doing well this AM. Pain moderately controlled O: Vitals Recorded in This Encounter 05/03/2024 0900 05/03/2024 0950 05/03/2024 0956 05/03/2024 1000 05/03/2024 1101 Pulse: 67 71 -- 68 -- Resp: 17 17 -- 20 -- SpO2: 100 % 100 % 100 % 97 % -- Pain Score: -- -- -- 7 6 Date 05/03/24 0700 - 05/04/24 0659 Shift 6060-3008 3623-9768 9844-4669 24 Hour Total INTAKE I.V.(mL/kg/hr) 16.5 16.5 Blood 325 325 Shift Total(mL/kg) 341.5(2.4) 341.5(2.4) OUTPUT Shift Total(mL/kg) Weight (kg) 142.4 142.4 142.4 142.4 CBC/PT/INR 05/03/2024 05/03/2024 05/02/2024 05/02/2024 05/02/2024 05/01/2024 05/01/2024 05/01/2024 5:00 AM 3:58 AM 2:45 PM 8:50 AM 2:14 AM 8:24 PM 4:51 PM 2:55 PM WBC 10.5 10.4 15.2 -- 11.2 13.7 -- 10.7 RBC 2.18 2.16 2.72 -- 3.21 3.31 -- 3.39 Hgb 6.9 6.9 8.5 9.6 9.8 10.4 -- 10.6 Hct 20.3 20.1 25.6 29.6 29.9 30.8 -- 31.7 MCV 93 93 94 -- 93 93 -- 94 RDW 17.2 17.5 17.6 -- 18.0 17.9 -- 18.0 Plt 72 69 83 -- 81 89 -- 79 aPTT -- -- -- -- -- -- 29 -- Basic Metabolic Panel 05/03/2024 05/02/2024 05/02/2024 05/02/2024 05/01/2024 04/30/2024 3:58 AM 2:45 PM 8:50 AM 2:14 AM 12:12 AM 8:38 PM Na 132 131 133 134 135 136 K 5.3 5.5 4.3 4.7 5.1 5.3 Cl 96 98 100 98 103 102 CO2 24 19 -- 27 24 22 Gap 17 20 -- 14 13 17 Glu 246 293 190 223 151 268 BUN 43 31 -- 23 32 34 Cr 6.81 5.71 -- 4.89 6.42 6.30 Ca 8.1 8.4 -- 8.2 8.8 8.5 Mg 2.0 2.0 -- 2.0 2.3 1.6 PO4 5.2 5.4 -- 4.2 3.8 -- Exam: NAD, alert. RLE: +DP pulse SILT DP/SP/S/S/Tib Wiggles toes 5/5 EHL/FHL/DF/PF Dressing with some strikethrough Dona Allred MD Orthopaedic Surgery, PGY 1 PLEASE INCLUDE ALL MEMBERS OF TEAM A ON Epic CHAT Dona Allred MD PGY1 Epic Chat Works Best Octaviano Snyder MD PGY3 Epic Chat Works Best After 5 pm and on weekends, please page the on-call resident ([phone]) with questions or concerns. GLUCOSE, FINGERSTICK-IN OFFICE Collecte d: 05/03/2024 9:56 AM Status: F Source: [facility] TYPE CODE TESTS RESULT OUT OF RANGE REFERENCE UNITS LAB [place] GLUCOSE, POC 235 High 74-109 mg/dL Result Comment: Notified FRANNIE URIBE MD Performed By: #### [id number] ### # NURSING GLUCOSE PROGRAM [address] [place] [address], [address] XR CHEST AP OR PA 1 VIEW Observed: 05/03 9:17 AM Status: F Source: [facility] SYSTEM EXAMINATION: XR CHEST AP OR PA 1 VIEW 05/03/2024 08:23 AM CLINICAL HISTORY: f/u after multiple rib fractures, no active resp distress ASSOCIATED DIAGNOSIS: f/u after multiple rib fractures, no active resp distress ORDERING PROVIDER: ROYCE REYNOSO COMPARISON: XR CHEST AP OR PA 1 VIEW 05/01/2024, 6:28 AM FINDINGS: Lines, tubes, and devices: None. Lungs and pleura: Suspected trace left apical pneumothorax. No appreciable right-sided pneumothorax. Bilateral infrahilar and left basilar predominant heterogeneous opacities likely representing atelectasis. Cardiomediastinal silhouette: The cardiac silhouette is enlarged. A dual lead cardiac device is present with lead tips overlying the right atrial appendage and right ventricle. Musculoskeletal: Again seen minimally displaced bilateral rib fractures and left scapular fracture. IMPRESSION: Suspected trace left apical pneumothorax. No appreciable right-sided pneumothorax. Otherwise unchanged pulmonary findings as detailed. PROGRESS NOTES Observed: 05/03/2024 8:04 AM Status: COMPLETED Source: [facility] DEPARTMENT OF SURGERY DIVISION OF TRAUMA, BURN, AND CRITICAL CARE TRAUMA INTENSIVE CARE UNIT (TICU) DAILY PROGRESS NOTE Patient: Amado Tran, 59 year old, male : 1965 Admit Date: 04/30/2024 Room: [place] [id number] Today's Date: 05/03/2024, Length of stay: 3 day(s) Code Status: Full Code Height: 5' 9 Weight: 142.4 kg BMI: 46.37 SURGICAL ICU - STAFF NOTE Patient seen and examined on 05/03/2024 Interval History/Events: Background: Amado Tran is a 59 year old y/o male with PMH of Hyperparathyroidism, Pacemaker, ARASH, CAROL, HLD, GERD, Depression, ESRD (HD MWF, RUE AV Fistula), CKD, HTN, T2DM, Systolic HF, and atrial fibrillation on Eliquis who presented to via [facility] as an inter facility transfer from [facility] s/p Fall. Per reports Pt was at a instant oil change location when he exited his vehicle to assist the senior quality control technician in opening his vehicle door, when he stepped behind his vehicle he accidentally fell through the floor opening aprox 6ft. Pt. Reports falling straight down, negative LOC, negative head strike. Pt was unable to get up under his own strength, EMS was called and Pt was extricated via EMS/FD, immobilized and transported to [facility] ED. Imagine at OSH demonstrated a Grade 1 splenic injury, multiple bilateral ribs fxs, and multiple pelvic fractures. Pt. Received K-centra, as well as PRBC X 2 and Calcium Gluc. [facility] was requested for transport to for orthopedics and trauma evaluations. EN route Pt received an additionalunit of whole blood. On arrival to pt is alert and oriented x 3, w/GCS-15. Pt. On 4LNC, Labile blood pressures and received an additional PRBC X 1, FFP X 1 in ED. Pt was COTE scanned again here at [facility] given the absence of contrast at OSH. Pt. Had CVC and A-line placed in ED. Hospital Course: 04/30: Admitted to TICU s/p fall with B/L rib fxs, Pelvic fx's, and questionable Grade 1 splenic injury s/p fall at [facility] access hospital [facility] location. 05/01: Titrated on levophed. CBC trended. Seen by EP for pacer, no interrogation to be performed 2/2 EOL device. Upright XR done. OR deferred. Dialyzed. 05/02: Went to OR with ortho. Pressor requirements improved. One-Liner: Pt is a 59 year old male with PMH of ESRD on HD MWF, T2DM, HFrEF and atrial fibrillation on eliquis who presented as a CAT 1 trauma as a transfer from [facility] and was admitted to the TICU for multiple traumatic injuries including Grade 1 splenic injury, multiple bilateral rib fractures, multiple pelvic fractures resulting from a 6 foot fall into auto mechanical bay. Course complicated by hypotension requiring multiple blood products including PRBC x3, whole blood x1, FFP x1, as well as levophed gtt. Acute overnight events: Given 1u PRBC. Drips: Levophed @ 0.02 mcg/kg/min Pertinent Labs AND Img: WBC 10.5, Hgb 6.9, PLT 72. Na 132, K 5.3, improved, CO2 24, Gap 17, Cr 6.81, GFR 9. ABG 7.33, PCO2 46, PO2 166 Phos 5.2. Mg 2.0. Lines, Tubes, Drains: CVC - left femoral, RUE fistula, caceres, left art line 2 x PIV on left Vitals AND I/Os: 24 Hour Vitals Range: Vital sign ranges over the past 24 hours (retrieved 05/03/2024 at 8:04 AM): Tmax (24 hours): 99.9 ???F (37.7 ???C) Pulse Av.4 Min: 68 Max: 85 Systolic (24hrs), Av , Min:92 , Max:138 Diastolic (24hrs), Av, Min:18, Max:122 MAP (mmHg) Av.4 mmHg Min: 45 mmHg Max: 130 mmHg Resp Av.3 Min: 10 Max: 26 SpO2 Av.1 % Min: 79 % Max: 100 % Vital Signs: Patient Vitals for the past 24 hrs: BP Temp Temp src Pulse Resp SpO2 O2 Device O2 Flow Rate (l/min) 05/03/24 0800 -- 97.4 ???F (36.3 ???C) Oral -- -- -- -- -- 05/03/24 0718 105/45 -- -- 68 22 79 % -- -- 05/03/24 0700 -- -- -- 70 16 100 % -- -- 05/03/24 0620 -- 98.1 ???F (36.7 ???C) Axillary 75 26 98 % -- -- 05/03/24 0601 136/53 98.1 ???F (36.7 ???C) Axillary 70 22 100 % -- -- 05/03/24 0600 -- -- -- 71 23 100 % -- -- 05/03/24 0500 -- -- -- 68 21 100 % -- -- 05/03/24 0400 -- 98.1 ???F (36.7 ???C) Axillary 68 16 97 % Nasal cannula 3 05/03/24 0300 -- -- -- 71 18 100 % -- -- 05/03/24 0200 -- -- -- 73 15 100 % -- -- 05/03/24 0100 -- -- -- 78 22 100 % -- -- 05/03/24 0016 -- -- -- 80 16 100 % Nasal cannula 3 05/03/24 0000 -- 97.5 ???F (36.4 ???C) Oral 82 21 96 % Nasal cannula 3 05/02/24 230 -- -- -- 80 25 99 % -- -- 05/02/242217 -- -- -- 83 20 100 % -- -- 05/02/242199 -- -- -- 84 24 99 % -- -- 10/19/24 2134 123/55 -- -- 83 -- -- -- -- 05/02/24 2100 138/122 99.9 ???F (37.7 ???C) Axillary 83 26 99 % Nasal cannula 3 05/02/242014 -- -- -- 80 20 100 % Nasal cannula 3 05/02/242004 -- -- -- 78 17 100 % Nasal cannula 3 05/02/241999 -- -- -- 77 10 99 % Nasal cannula 3 05/02/24 1900 118/52 -- -- 85 19 95 % Nasal cannula 3 05/02/24 1800 123/108 -- -- 82 26 100 % -- -- 05/02/24 1730 119/18 -- -- 80 24 100 % -- -- 05/02/24 1708 -- -- -- 81 21 100 % Nasal cannula 3 05/02/24 1700 92/56 -- -- 79 12 100 % -- -- 05/02/24 1657 -- -- -- 82 18 100 % Nasal cannula 5 05/02/24 1600 -- 98.3 ???F (36.8 ???C) Axillary 78 18 96 % Nasal cannula 5 05/02/24 1500 -- -- -- 77 15 95 % -- -- 05/02/24 1409 -- 97.7 ???F (36.5 ???C) Axillary -- -- -- -- -- 05/02/24 1400 -- -- -- 79 16 98 % BiPAP 3 05/02/24 1330 -- -- -- 78 14 97 % -- -- 05/02/24 1323 -- -- -- 77 16 95 % Nonrebreather 5 24 Hour I AND Os: In: 1283.1 (9 mL/kg) [I.V.:1283.1 (0.4 mL/kg/hr)] Out: 255 (1.8 mL/kg) [Urine:5 (0 mL/kg/hr)] Net: 1028.1 Weight: 142.4 kg Physical Exam: General: Awake and alert, no acute distress. Sitting somewhat upright in bed.. Neurological: AAOx4, GCS-15. HEENT: PERRL, EOMI, no conjunctival injection or scleral icterus. Cardiac: Regular rate and rhythm, NSR on monitor, easily palpable peripheral pulses w/ brisk cap refill. Pulmonary: Clear to auscultation bilaterally. No wheezing, rhonchi, or rales.On 2LNC. Abdomen: Large, rounded, soft, non-tender, non-distended. Pelvic binder in place. Extremities: RLE has dressings in place over the distal and medial thigh which appear clean with mild strikethrough. Distal pulses are 2+ and intact bilaterally. Tenderness on palpation and manipulation of RLE. Compartments soft but tender and mildly swollen compared to contralateral extremity. Otherwise warm, well perfused. Lab Data: 10.5 6.9 / 72 / 20.3 CBC: 05/03/2024: 5:00 AM 132 96 43 / 246 5.3 24 6.81 BMP: 05/03/2024: 3:58 AM BMP: BMP (last 3 years, up to 8 values) 05/03/2024 05/02/2024 05/02/2024 05/02/2024 05/01/2024 04/30/2024 3:58 AM 2:45 PM 8:50 AM 2:14 AM 12:12 AM 8:38 PM Na 132 131 133 134 135 136 K 5.3 5.5 4.3 4.7 5.1 5.3 Cl 96 98 100 98 103 102 CO2 24 19 -- 27 24 22 Gap 17 20 -- 14 13 17 Glu 246 293 190 223 151 268 BUN 43 31 -- 23 32 34 Cr 6.81 5.71 -- 4.89 6.42 6.30 Ca 8.1 8.4 -- 8.2 8.8 8.5 eGFR 9 11 -- 13 9 9 CBC: CBC (last 3 years, up to 8 values) 05/03/2024 05/03/2024 05/02/2024 05/02/2024 05/02/2024 05/01/2024 05/01/2024 05/01/2024 5:00 AM 3:58 AM 2:45 PM 8:50 AM 2:14 AM 8:24 PM 2:55 PM 8:00 AM WBC 10.5 10.4 15.2 -- 11.2 13.7 10.7 13.3 RBC 2.18 2.16 2.72 -- 3.21 3.31 3.39 3.61 Hgb 6.9 6.9 8.5 9.6 9.8 10.4 10.6 11.3 Hct 20.3 20.1 25.6 29.6 29.9 30.8 31.7 33.6 MCV 93 93 94 -- 93 93 94 93 RDW 17.2 17.5 17.6 -- 18.0 17.9 18.0 18.5 Plt 72 69 83 -- 81 89 79 88 PT/PTT/INR: PT/PTT/INR (last 3 years, up to 8 values) 05/01/2024 05/01/2024 04/30/2024 4:51 PM 10:10 AM 8:44 PM aPTT 29 -- -- INR -- 1.16 1.29 Type AND Screen: Type AND Screen (Last result in the past 30 days) 04/30/2024 04/30/2024 5:21 PM 4:30 PM ABO Rh A Positive A Positive Screen Int. -- Negative ABG: Arterial Blood Gases T Site Mode LPM FIO2 pH pCO2 pO2 Sat Base Ex HCO3- A-a 05/03/24 0354 Nasal Canula 3 LPM 7.336 46.0 166 97.7 -1.3 24 05/02/24 1436 BIPAP 3 LPM 7.296 43.2 83 95.9 -5.2 20 05/02/24 0850 25 05/02/24 0850 7.400 40.7 165 97.5 0.4 25 05/02/24 0842 Not Indicated 21% 7.386 43.0 165 97.9 0.6 25 BNP: No result for BNP Hepatic Panel: LFT's (last 3 years, up to 8 values) No lab values to display. Glucose: Fingerstick Glucose (last 72 hours) (Last 10 results in the past 72 hours) Glucose 05/03/24 0459 279 05/02/24 2218 308 05/02/24 1623 306 Comment: Notified FRANNIE URIBE MD
05/02/24 1409 276 Comment: Notified FRANNIE URIBE MD
05/02/24 0358 210 Comment: Notified FRANNIE URIBE MD
05/01/24 2215 238 05/01/24 1748 177 05/01/24 0951 163 10/18/24 0405 195 04/30/24 2128 221 A1c: No results found for: HBA1C TSH: No results found for: TSH Blood Culture: Blood Culture No lab values to display. Urine Culture: Urine Culture (last 1 year) No lab values to display. Respiratory Culture: Respiratory Culture, Misc No lab values to display. Wt Readings from Last 5 Encounters: 04/30/24 (!) 314 lb (142.4 kg) Imaging Results (over previous 24 hours): CXR: IMPRESSION: Suspected trace left apical pneumothorax. No appreciable right-sided pneumothorax. Otherwise unchanged pulmonary findings as detailed. Assessment and Plan: Diagnosis s/p fall down ~ 6Ft hole: - Right L1-L3 TP Fx - Anterior tension ban disruption of T11 - Right superior/inferior pubic rami Fx w/ extension into acetab - Left scapular Fx w/ intramuscular shoulder hematoma - Bilateral sacral Ala Fx - Right 2,3,4,5,6,7,8 Rib Fx - Left 4,5,6,7,8 Rib Fx - Bilateral pulmonary contusions - Right pleural effusion - Trace hemoperitoneum - Right distal femur fx - Acute blood loss anemia - Hemorrhagic shock - Shock of unknown etiology Associated Hospital Diagnosis: - Hyperkalemia - Hypomagnesemia PMH: - Hyperparathyroidism - ARASH - CAROL - Atrial- Fibrillation - HTN - HLD - Pacer - GERD - ESRD - Depression - CKD - T2DM - CHF Home Medications: ASA 81mg daily Insulin NPH Pioglitazone 30mg daily Sertraline 100mg daily Amiodarone 200mg Sevelamer 1600mg TID Apixaban 5mg daily Atorvastatin 40mg daily Gabapentin 100mg daily Midodrine 10mg daily Omeprazole 40mg daily Incidental Findings: - Cholelithiasis - Indeterminate right adrenal nodule Plan: Neurological: # Acute post traumatic pain # Hx of Depression - Acetaminophen 1G Q6hrs sched - Oxycodone 5/10mg Q4hrs PRN - Topical Lidocaine patch - Dilaudid BT - Robaxin 750mg QID - Cont home Gabapentin, Zoloft Cardiovascular: # Hx of HTN, HLD, CHF, Pacer, A-fib - Cardiology consulted for pacer interrogation given need for MRI -> seen by EP and per them would be ok for MRI as battery is - cannot be interrogated given age - see separate note from EP - Cont TELE monitoring - Maintain MAP > 65 - cont home Amio, Lipitor, Midodrine - Holding home ASA, Apixaban - last echo 01/05, LVEF 60%, no need for repeat - EKG obtained - continue Levophed as needed to maintain MAP of 65 - up scheduled to midodrine to TID Respiratory: # Hx of ARASH - Cont Pulse ox monitoring - Maintain SpO2 >92%, Provide supplemental o2 as needed - 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 - Encourage incentive spirometry - requiring Bipap at bedtime for suspected ARASH, hypoventilation - has home CPAP prescribed, noncompliant - repeat ABG improved on NC during daytime hours GI/Diet: # Hx of GERD - Diet: clear, progress to regular - will advance diet as tolerated - Senna 8.6 mg PO at bedtime/ Miralax daily - Zofran 4 mg IV q6h PRN nausea/vomiting, requiring frequently, other antiemetics contraindicated given prolonged QTC - Continue pantoprazole in place of home esomeprazole Renal/Electrolytes: # Hx of ESRD - Nephrology consulted aprec recs ->dialysis per their recs - mIVF: none given renal disease - BMP/Mg/P daily - Replace electrolytes as indicated - Maintain Mg >2, K >4 - Measure strict I AND O - Continue home Renvela - some mild hyperkalemia today, start on lokelma given no bowel movements yet this admission Infectious Disease: - Afebrile, no leukocytosis - last dose ancef for perioperative period this AM, per renal dosing 1g - Monitor temperature and WBC for signs of infection Hematology: # Hemorrhagic shock - Maintain active T/S - CBC daily - Maintain hemoglobin >7 Endocrine: # Hx of Hyperparathyroidism, T2DM - Monitor blood glucose levels, adjust regimen above for BGL control between 140-180 - Hold home Insulin NPH, pioglitazone - qac and at bedtime accuchecks, sliding scale insulin Musculoskeletal: # Pelvic Fx's # Right distal femur fx # Left Scap Fx - Orthopedics Consulted aprec recs: OR 05/02 -> - Pelvic xray AP post op - Ancef 3 G q8h for 2 more doses - NWB BLE - Pain control: recommend multimodal - tylenol standing q6h, oxycodone q4h PRN, tramadol PRN, dilaudid PRN for breakthrough -PT/OT consult - May resume DVT PPX as per primary team -FU with Dr. Biggs in 2 weeks at dispo - Ortho spine: - Not cleared for OR with Ortho until Tspine uprights complete - C/T/L Precautions until all imaging reviewed and plans finalized - Please obtain pre-operative labs (BMB, CBC, Coags, T AND S, UA, CXR, EKG) - Hold DVT ppx in anticipation of possible surgery - Consideration of operative fixation pending T spine uprigthts. - PT/OT - Progressive mobility guidelines Prophylaxis: - SCDs Bilaterally - with shock improved and low concern for active bleeding start on subcutaneous heparin 5000mg q8h Follow Up: - PCP: No primary care provider on file. - [facility]: - PIV X 2 - A-line - CVC - Caceres Code Status: - Full Code Disposition: - Cont TICU care and MGMT Royce Reynoso DO Teaching Physician Note: I saw and evaluated the patient. I personally obtained the kirby and critical portions of the history and physical exam. I reviewed the trainee's documentation and discussed the patient with the trainee. I agree with the trainee's medical decision making as documented in the trainee's note unless otherwise noted by me. This note represents our aggregated findings and impressions. Critical care time was provided for 35 minutes. The time involved in the performance of this care was exclusive of separately billable procedures, teaching time and treating other patients. This time was spent personally by the attending physician for the following activities: examination of patient, ordering and/or performing treatments, ordering and reviewing laboratory and radiographic studies, and if applicable, ventilatory management and blood gas interpretation. Critical care was necessary because of an illness or injury that acutely impaired one or more vital organs systems such that there was a high probability of imminent or life threatening deterioration in the patient's condition. The following organ systems are involved: cardiovascular respiratory renal/electrolytes hematologic STEPHANIE Krishnan MD [facility] Division of Trauma, Critical Care, Yu, and Emergency General Surgery Department of Surgery [facility] [phone] RED BLOOD CELL COMPONENT Collected: 5:24 AM Status: F [facility]: [facility] TYPE CODE TESTS RESULT OUT OF RANGE REFERENCE UNITS LAB 99 BB ORDER ITEM Product status info to follow Performed By: #### RBO #### [facility] [address] [place] [address], PROGRESS NOTES Observed: 05/03/2024 5:24 AM Status: COMPLETED Source: [facility] Dr. Pierce notified of critica l Hemoglobin value of 6.9. Dr. Pierce read back critical results. New orders received. RED BLOOD CELL UNIT STATUS Collected: 05/03/2024 5:23 AM Status: C Source[facility] TYPE CODE TESTS RESULT OUT OF RANGE REFERENCE UNITS LAB XM CROSSMATCH INTERPRETATION Compatible (E) LAB UT BLOOD PRODUCT UN IT TYPE 6200 Result Comment: A Pos LAB UN BLOOD PRODUCT UN IT INFO [id number] LAB ST BLOOD PRODUCT STATUS Transfused LAB PI BLOOD PRODUCT DESCRIPTION Red Blood Cells LAB SPC BLOOD PRODUCT CODE [id number] Performed By: #### RBU #### [facility] [address] [place] [address], COMPLETE BLOOD COUNT Collected: 5:00 AM Status: F [facility]: [facility] TYPE CODE TESTS RESULT OUT OF RANGE REFERENCE UNITS LAB WBC WBC 10.5 4.5-11.5 K/uL LAB RBC RBC 2.18 Low 4.50-5.90 M/uL LAB HGB HGB 6.9 Low Alert 13.9-16.3 g/dL LAB HCT HCT 20.3 Low 41.0-53.0 % LAB MCV MCV 93 80-100 fL LAB MCH MCH 31.7 26.0-34.0 pg LAB MCHC MCHC 33.9 32.0-35.9 g/dL LAB PLT PLT 72 Low 150-400 K/uL LAB RDW RDW-CV 17.2 High 11.5-14.5 % LAB MPV MPV 10.5 7.5-11.2 fL Performed By: #### CBC #### [facility] [address] [place] [address], GLUCOSE, FINGERSTICK-IN OFFICE Collecte d: 05/03/2024 4:59 AM Status: F [facility] TYPE CODE TESTS RESULT OUT OF RANGE REFERENCE UNITS LAB [place] GLUCOSE, POC 279 High 74-109 mg/dL Performed By: #### [id number] ### # NURSING GLUCOSE PROGRAM [address] [place] [address], PROGRESS NOTES Observed: 05/03/2024 4:35 AM Status: COMPLETED Source: [facility] SYSTEM Dr. Pierce notified of critica l Hemoglobin value of 6.9. Dr. Pierce read back critical results. New orders received. MAGNESIUM Collected: 3:58 AM Status: F Source: [facility] TYPE CODE TESTS RESULT OUT OF RANGE REFERENCE UNITS LAB mag MG 2.0 1.9-2.7 mg/dL Performed By: #### CH8, PHOS , MG #### [facility] [address] [place] [address], PHOSPHORUS Collected: 3:58 AM Status: F Source: [facility] TYPE CODE TESTS RESULT OUT OF RANGE REFERENCE UNITS LAB PHOS PHOS 5.2 High 2.5-5.0 mg/dL Performed By: #### CH8, PHOS , MG #### [facility] [address] [place] [address], BASIC METABOLIC PANEL Collected: 2023 3:58 AM Status: F Source: [facility] TYPE CODE TESTS RESULT OUT OF RANGE REFERENCE UNITS LAB GLU GLU 246 High 74-109 mg/dL LAB NA3 NA 132 Low 136-145 mmol/L LAB POT K 5.3 High 3.5-5.0 mmol/L LAB CO2 CO2 24 21-31 mmol/L LAB CHLOR CL 96 Low 98-107 mmol/L LAB BUN BUN 43 High 7-25 mg/dL LAB CREAT CREAT 6.81 High 0.70-1.30 mg/dL LAB CA CA 8.1 Low 8.6-10.3 mg/dL LAB ANION GAP ANION GAP 17 10-20 LAB eGFR ESTIMATED GFR (CKD-EPI) 9 Low >=60 mL/min/1 .73sqm Result Comment: 2020 CKD EPI Equation using Creatinine without Race Comment: Estimated glomerular filtration rate (eGFR) is calculated without a race coefficient. Values should be interpreted in the context of the patient's full clinical presentation. Reference: 1. Christophe Nash, Sagrario M, Gena YUAN, et al.. A Unifying Approach for GFR Estimation: Recommendations of the NKF-ASN Task Force on Reassessing the Inclusion of Race in Diagnosing Kidney Disease. [place] Journal of Kidney Diseases 2021;79(2):268- 88.e1. 2. N Engl J Med 1 Vol. 385 Issue 19 Pages 2710-5515 Performed By: #### CH8, MG TANNER #### [facility] [address] [place], [place], COMPLETE BLOOD COUNT Collected: 024 3:58 AM Status: F Source: [facility] TYPE CODE TESTS RESULT OUT OF RANGE REFERENCE UNITS LAB WBC WBC 10.4 4.5-11.5 K/uL LAB RBC RBC 2.16 Low 4.50-5.90 M/uL LAB HGB HGB 6.9 Low Alert 13.9-16.3 g/dL LAB HCT HCT 20.1 Low 41.0-53.0 % LAB MCV MCV 93 80-100 fL LAB MCH MCH 32.1 26.0-34.0 pg LAB MCHC MCHC 34.5 32.0-35.9 g/dL LAB PLT PLT 69 Low 150-400 K/uL LAB RDW RDW-CV 17.5 High 11.5-14.5 % LAB MPV MPV 10.8 7.5-11.2 fL Performed By: #### CBC #### [facility] [address] [place], [place], BLOOD GAS, ARTERIAL Collected: 05/03/20 24 3:54 AM Status: F Source: [facility] TYPE CODE TESTS RESULT OUT OF RANGE REFERENCE UNITS LAB MODE MODE Nasal Canula LAB fio2 FIO2 (CATEGORY) 3 LPM LAB CR PHA CR PHA 7.336 Low 7.350-7.450 LAB pco2 CR PCO2 46.0 High 35.0-45.0 mm Hg LAB CR PO2 CR PO2 166 High 80-100 mm Hg LAB CR %O2 SAT CR % O2 SAT 97.7 95.0-99.0 % LAB CR ANAYA CR ANAYA -1.3 -2.0-3.0 mmol/L LAB CPCR HCO3 CR HCO3 24 21-28 mmol/L Performed By: #### CR BGA ## ## [facility] [address] [place], [place], CALCIUM, IONIZED Collected: 4 3:54 AM Status: F Source: [facility] TYPE CODE TESTS RESULT OUT OF RANGE REFERENCE UNITS LAB CR ICA CR ICA 1.16 1.15-1.33 mmol/L Result Comment: This test wa s developed, and its performance characteristics determined by the [facility] Path[facility]. It has not been cleared or approved by the FDA. This test is used for clinical purposes only. Performed By: #### CR ICA ## ## [facility] [address] [place], [address] GLUCOSE, FINGERSTICK-IN OFFICE Collecte d: 05/02/2024 10:18 PM Status: F Source: [facility] TYPE CODE TESTS RESULT OUT OF RANGE REFERENCE UNITS LAB Mong[place]ian GLUCOSE, POC 308 High 74-109 mg/dL Performed By: #### [id number] ### # NURSING GLUCOSE PROGRAM [address] [place], [address] GLUCOSE, FINGERSTICK-IN OFFICE Collecte d: 05/02/2024 4:23 PM Status: F Source: [facility] TYPE CODE TESTS RESULT OUT OF RANGE REFERENCE UNITS LAB [place] GLUCOSE, POC 306 High 74-109 mg/dL Result Comment: Notified FRANNIE URIBE MD Performed By: #### [id number] ### # NURSING GLUCOSE PROGRAM [address] [place], [address] BASIC METABOLIC PANEL Collected: 2023 2:45 PM Status: F [facility]: [facility] TYPE CODE TESTS RESULT OUT OF RANGE REFERENCE UNITS LAB GLU GLU 293 High 74-109 mg/dL LAB NA3 NA 131 Low 136-145 mmol/L LAB POT K 5.5 High 3.5-5.0 mmol/L LAB CO2 CO2 19 Low 21-31 mmol/L LAB CHLOR CL 98 98-107 mmol/L LAB BUN BUN 31 High 7-25 mg/dL LAB CREAT CREAT 5.71 High 0.70-1.30 mg/dL LAB CA CA 8.4 Low 8.6-10.3 mg/dL LAB ANION GAP ANION GAP 20 10-20 LAB eGFR ESTIMATED GFR (CKD-EPI) 11 Low >=60 mL/min/1 .73sqm Result Comment: 2020 CKD EPI Equation using Creatinine without Race Comment: Estimated glomerular filtration rate (eGFR) is calculated without a race coefficient. Values should be interpreted in the context of the patient's full clinical presentation. Reference: 1. Christophe C, Sagrario M, Gena YUAN, et al.. A Unifying Approach for GFR Estimation: Recommendations of the NKF-ASN Task Force on Reassessing the Inclusion of Race in Diagnosing Kidney Disease. [place] Journal of Kidney Diseases 2021;79(2):268- 88.e1. 2. N Engl J Med 1 Vol. 385 Issue 19 Pages 4366-9174 Performed By: #### PHOS, CH8 , MG #### [facility] [address] [place] [address], MAGNESIUM Collected: 4 2:45 PM Status: F [facility]: [facility] TYPE CODE TESTS RESULT OUT OF RANGE REFERENCE UNITS LAB mag MG 2.0 1.9-2.7 mg/dL Performed By: #### PHOS, CH8 , MG #### [facility] [address] [place] [address], PHOSPHORUS Collected: 4 2:45 PM Status: F Source: [facility] TYPE CODE TESTS RESULT OUT OF RANGE REFERENCE UNITS LAB PHOS PHOS 5.4 High 2.5-5.0 mg/dL Performed By: #### PHOS, CH8 , MG #### [facility] [address] [place] [address], COMPLETE BLOOD COUNT Collected: 024 2:45 PM Status: F Source: [facility] TYPE CODE TESTS RESULT OUT OF RANGE REFERENCE UNITS LAB WBC WBC 15.2 High 4.5-11.5 K/uL LAB RBC RBC 2.72 Low 4.50-5.90 M/uL LAB HGB HGB 8.5 Low 13.9-16.3 g/dL LAB HCT HCT 25.6 Low 41.0-53.0 % LAB MCV MCV 94 80-100 fL LAB MCH MCH 31.3 26.0-34.0 pg LAB MCHC MCHC 33.3 32.0-35.9 g/dL LAB PLT PLT 83 Low 150-400 K/uL LAB RDW RDW-CV 17.6 High 11.5-14.5 % LAB MPV MPV 10.5 7.5-11.2 fL Performed By: #### CBC #### [facility] [address] [place] [address], [id number] BLOOD GAS, ARTERIAL Collected: 05/02/20 24 2:36 PM Status: F Source: [facility] TYPE CODE TESTS RESULT OUT OF RANGE REFERENCE UNITS LAB MODE MODE BIPAP LAB fio2 FIO2 (CATEGORY) 3 LPM LAB CR PHA CR PHA 7.296 Low 7.350-7.450 LAB pco2 CR PCO2 43.2 35.0-45.0 mm Hg LAB CR PO2 CR PO2 83 80-100 mm Hg LAB CR %O2 SAT CR % O2 SAT 95.9 95.0-99.0 % LAB CR ANAYA CR ANAYA -5.2 Low -2.0-3.0 mmol/L LAB CPCR HCO3 CR HCO3 20 Low 21-28 mmol/L Performed By: #### CR BGA ## ## [facility] [address] [place] [address], CALCIUM, IONIZED Collected: 2:36 PM Status: F Source: [facility] TYPE CODE TESTS RESULT OUT OF RANGE REFERENCE UNITS LAB CR ICA CR ICA 1.14 Low 1.15-1.33 mmol/L Result Comment: This test wa s developed, and its performance characteristics determined by the [facility] Pathology [facility]. It has not been cleared or approved by the FDA. This test is used for clinical purposes only. Performed By: #### CR ICA ## ## [facility] [address] [place] [address], PROGRESS NOTES Observed: 05/02/2024 2:12 PM Status: COMPLETED Source: [facility] Nephrology Follow-up Note Amado Tran 59 year old 314 lbs MRN/Room: [id number] Subjective: S/p ORIF of right femur and perc reduction and fixation of right sacroliliac. Tolerated HD well yesterday, needing levo at low dose Objective: Meds: cefazolin 3,000 mg Q8H Antibiotic acetaminophen 1,000 mg q6h nystatin 2x Daily albuterol 2.5 mg QID RT sevelamer carbonate 800 mg 3x Daily with Meals amiodarone 200 mg Daily atorvastatin 40 mg At Bedtime gabapentin 100 mg At Bedtime midodrine 10 mg 2x Daily with Meals pantoprazole 40 mg Daily 30 min before breakfast sertraline 100 mg Daily polyethylene glycol 17 g Daily methocarbamol 750 mg 4x Daily lidocaine 2 Patch Every 24 hours insulin regular 2-12 Units Every 6 hours senna 8.6 mg At Bedtime norepinephrine (LEVOPHED) infusion orderable 0.05 mcg/kg/min (05/02/24 1600) ondansetron 4 mg Q6H PRN albuterol 2.5 mg Q4H PRN oxyCODONE 10 mg Q4H PRN HYDROmorphone HCl PF 0.5 mg Q3H PRN oxyCODONE 5 mg Q4H PRN dextrose iv for hypoglycemia orderable 125 mL PRN Or glucagon 1 mg PRN Or dextrose 15 g of glucose PRN Or dextrose 30 g of glucose PRN Vital sign ranges over the past 24 hours (retrieved 05/02/2024 at 4:52 PM): Tmax (24 hours): 100.1 ???F (37.8 ???C) Pulse Av.9 Min: 77 Max: 88 No data recorded. No data recorded. No data recorded Resp Av.4 Min: 13 Max: 22 SpO2 Av.7 % Min: 89 % Max: 98 % Patient Vitals for the past 24 hrs: Temp Temp src Pulse Resp SpO2 O2 Device O2 Flow Rate (l/min) 05/02/24 1600 98.3 ???F (36.8 ???C) Axillary 78 18 96 % -- -- 05/02/24 1500 -- -- 77 15 95 % -- -- 05/02/24 1409 97.7 ???F (36.5 ???C) Axillary -- -- -- -- -- 05/02/24 1400 -- -- 79 16 98 % BiPAP 3 05/02/24 1330 -- -- 78 14 97 % -- -- 05/02/24 1323 -- -- 77 16 95 % Nonrebreather 5 05/02/24 0800 99 ???F (37.2 ???C) Oral -- -- -- -- -- 05/02/24 0730 -- -- 81 20 93 % -- -- 05/02/24 0700 -- -- 81 16 98 % -- -- 05/02/24 0600 -- -- 83 17 98 % -- -- 05/02/24 0500 -- -- 81 13 96 % Nasal cannula 3 05/02/24 0400 99.8 ???F (37.7 ???C) Axillary 84 -- 97 % BiPAP -- 05/02/24 0300 -- -- 84 18 92 % -- -- 05/02/24 0200 -- -- 83 17 93 % -- -- 05/02/24 0100 -- -- 81 15 94 % -- -- 05/02/24 0042 100.1 ???F (37.8 ???C) Axillary 84 18 92 % BiPAP 3 05/02/24 0000 -- -- 84 20 95 % BiPAP -- 05/01/24 2317 -- -- 88 20 94 % BiPAP 3 05/01/24 2310 -- -- 87 19 95 % -- -- 05/01/24 2300 -- -- 87 14 95 % -- -- 05/01/24 220 -- -- 86 17 94 % -- -- 05/01/242099 -- -- 86 17 96 % -- -- 05/01/242014 -- -- 84 17 96 % Nasal cannula 3 05/01/242003 -- -- 86 19 94 % Nasal cannula 3 05/01/241999 98.5 ???F (36.9 ???C) Axillary 86 20 93 % Nasal cannula 2 05/01/24 1900 -- -- 87 22 93 % -- -- 05/01/24 1800 -- -- 86 21 89 % Nasal cannula 2 05/01/24 1700 -- -- 78 16 95 % -- -- Intake/Output Summary (Last 24 hours) at 05/02/2024 1652 Last data filed at 05/02/2024 1400 Gross per 24 hour Intake 1423.2 ml Output 262 ml Net 1161.2 ml General appearance: no distress Eyes: non-icteric HEENT: atrumatic head, moist mucosa Skin: no apparent rash Heart: NSR, S1, S2 normal, no murmur or gallop Lungs: Symmetrical expansion,CTA bilat no wheezing/crackles Abdomen: soft, nt/nd Extremities: no edema bilat Neuro: No FND,asterixis RUE AVG with bruit and thrill Blood Labs: Arterial Blood Gases T Site Mode LPM FIO2 pH pCO2 pO2 Sat Base Ex HCO3- A-a 05/02/24 1436 BIPAP 3 LPM 7.296 43.2 83 95.9 -5.2 20 05/02/24 0850 25 05/02/24 0850 7.400 40.7 165 97.5 0.4 25 05/02/24 0842 Not Indicated 21% 7.386 43.0 165 97.9 0.6 25 05/02/24 0210 BIPAP 3 LPM 7.338 50.8 74 95.8 0.8 27 05/01/24 1850 Nasal Canula 2 LPM 7.346 45.1 63 91.6 -1.2 24 CBC/PT/INR 05/02/2024 05/02/2024 05/02/2024 05/01/2024 05/01/2024 05/01/2024 05/01/2024 05/01/2024 2:45 PM 8:50 AM 2:14 AM 8:24 PM 4:51 PM 2:55 PM 10:10 AM 8:00 AM WBC 15.2 -- 11.2 13.7 -- 10.7 -- 13.3 RBC 2.72 -- 3.21 3.31 -- 3.39 -- 3.61 Hgb 8.5 9.6 9.8 10.4 -- 10.6 -- 11.3 Hct 25.6 29.6 29.9 30.8 -- 31.7 -- 33.6 MCV 94 -- 93 93 -- 94 -- 93 RDW 17.6 -- 18.0 17.9 -- 18.0 -- 18.5 Plt 83 -- 81 89 -- 79 -- 88 aPTT -- -- -- -- 29 -- -- -- INR -- -- -- -- -- -- 1.16 -- WBC/Diff 04/30/2024 5:22 PM Neutro% 80.0 Bands% 9 Lymphs% 4.0 Monos% 5.0 Basos% 1.0 Basic Metabolic Panel 05/02/2024 05/02/2024 05/02/2024 05/01/202404/30/2024 2:45 PM 8:50 AM 2:14 AM 12:12 AM 8:38 PM Na 131 133 134 135 136 K 5.5 4.3 4.7 5.1 5.3 Cl 98 100 98 103 102 CO2 19 -- 27 24 22 Gap 20 -- 14 13 17 Glu 293 190 223 151 268 BUN 31 -- 23 32 34 Cr 5.71 -- 4.89 6.42 6.30 Ca 8.4 -- 8.2 8.8 8.5 Mg 2.0 -- 2.0 2.3 1.6 PO4 5.4 -- 4.2 3.8 -- Cultures: Urine Culture No lab values to display. ASSESSMENT: Amado Tran is a 59 year old year old, with a PMHx of ESRD on HD MWF via RUE AVG presenting s/p fall with Grade 1 splenic injury, multiple bilateral ribs fxs, and multiple pelvic fractures. S/p OR 05/02. Nephrology consulted for ESRD management ESRD on HD MWF - last HD 05/01 - volume: WNL - electrolytes: hyponatremia from impaired free water deficit - acid/base: WNL - anemia: from OR and CKD, hgb below goal - CKDMBD: phos elevated, calcium low though albumin unknown. Plan: - next HD Saturday, continue MWF schedule, - continue midodrine, continue renvela with meals - resume renal multivitamin - Please lower cefazolin dosing, too high for ESRD patient. Kayode Rolon MD Nephrology Attending GLUCOSE, FINGERSTICK-IN OFFICE Collecte d: 05/02/2024 2:09 PM Status: F Source: THE [facility] SYSTEM TYPE CODE TESTS RESULT OUT OF RANGE REFERENCE UNITS LAB [place] GLUCOSE, POC 276 High 74-109 mg/dL Result Comment: Notified FRANNIE URIBE MD Performed By: #### [id number] ### # NURSING GLUCOSE PROGRAM [address] [place] [address], [id number] XR PELVIS SINGLE VIEW Observed: 05/02/20 1:26 PM Status: F Source: [facility] EXAMINATION: XR PELVIS SINGL E VIEW 05/02/2024 01:15 PM CLINICAL HISTORY: post op xray in SICU ORDERING PROVIDER: PADMINI THAPA COMPARISON: XR PELVIS INLET OUTLET 2 VIEWS 05/01/2024, 6:27 AM IMPRESSION: Interval fixation of bilateral sacroiliac joints with single partially threaded trans-sacroiliac screw. Additionally, right intramedullary fixation gentry is seen with 2 proximal interlocking screws in the proximal femoral diaphysis. No significant change in position or alignment of the previously described fractures. ANESTHESIA POSTPROCEDURE EVALUATION Observed: 05/02/2024 1:07 PM Status: ACTIVE Source: [facility] SYSTEM Anesthesia Postoperative Ass essment: Vital Signs (most recent): BP 130/48 Pulse 81 Temp 37.2 ???C (99 ???F) (Oral) Resp 20 Ht 5' 9 (1.753 m) Wt (!) 314 lb (142.4 kg) SpO2 93% PF 100 L/min BMI 46.37 kg/m??? Anesthesia Post Evaluation Level of consciousness: awake Post-procedure exam normal. Body temperature, hydration status, PONV and pain evaluated and addressed. Pain management: adequate Hydration status: normal PONV:No nausea/vomiting reported Cardiopulmonary status stable Respiratory status: acceptable Cardiovascular status: acceptable ANESTHESIA NOTABLE EVENTS: No notable events documented. ANESTHESIA TRANSFER OF CARE Observed: 05/02/2024 1:07 PM Status: COMPLETED Source: [facility] SYSTEM Patient taken to ICU, sponta neous breathing with supplemental oxygen. Standard transport monitoring, emergency medications and equipment available. Completed SBAR handoff to the receiving nurse. Patient was awake, comfortable, and stable on arrival. ICU Transfer Note Basic Operating Room Facts: Surgeon(s): Kayode Biggs MD Scrub: Cely Foster RN Colorist Formulator Nurse: Alejo Goncalves Interactive Marketing Strategist: Robi [employer] Boat Mate: Padmini Thapa MD Anesthesiologist: John Nayak MD Wire Photo Operator: Pam Smyth MD REDUCTION, OPEN, FEMUR, INTRAMEDULLARY GENTRY (Right: Leg Upper) REDUCTION, CLOSED, PERCUTANEOUS PINNING, PELVIS (Bilateral: Pelvis) Intraoperative Events: No acute event ASA: 4 EBL: 250 mL Urine Not documented Lactated Ringers and NaCl 0.9%: Fluid Totals (Filter: LR and NaCl 0.9% Medications Shown) Medication Calculated Total NaCl 0.9% 900 mL / 1 bag Cell Saver: Not documented Blood Administration View: 04/29/24 1307 to 05/02/24 1307 (72 Hours) Sort by: Time Blood products ready in the blood bank PLASMA STATU Products ready: 3 RED BLOOD CE Products ready: 4 WHOLE BLOOD Products ready: 1 Completed Other: 2 units Date End Product Transfused Suspected Reaction? 05/01/24 (1 unit) 250 mL 0307 Other 250 mL 04/30/24 (1 unit) 275 mL 2310 Other 275 mL Other meds given: None Current Vasoactive Medications: Vasoactive Medications: None Breathing: Vent Settings: Vent Mode: Man./Spont. Minute Volume: 0.4 L PIP: 20 cmH2O FiO2: 97 % PEEP: (!) 10 cmH2O Vent Rt: (!) 3 TV: 106 mL Lines, Drains, Airways CVC - Triple Lumen: 04/30/24 Anterior;Left;Proximal Femoral (Active) Site Assessment WNL;Dressing intact 05/02/24 07 Proximal Port (Label #1) Capped;Patent;Positive blood return 05/02/24 0700 Medial Port (Label #3) Capped;Patent;Positive blood return 05/02/24 07 Distal Port (Label #2) Infusing;Patent;Positive blood return 05/02/24 0700 Dressing Change Date 04/30/24 05/01/24 0400 Dressing Change Time 1825 05/01/24 0400 Cap Change Date 04/30/24 05/01/24 0400 Cap Change Time 1825 05/01/24 0400 Peripheral IV Access: 04/30/24 1710 20 gauge Left Antecubital (Active) Site Assessment WNL;Dressing intact 05/02/24 07 Infusion Status Port #1 Capped;Patent 05/02/24 07 Peripheral IV Access: 04/30/24 1711 20 gauge Anterior;Left Forearm (Active) Site Assessment Dressing intact;WNL 05/02/24 0700 Infusion Status Port #1 Capped;Patent 05/02/24 0700 Arterial Line: 04/30/24 Left (Active) Site Assessment WNL;Dressing intact 05/02/24 07 Line Status WNL 05/02/24 07 Dressing Change Date 04/30/24 05/01/24 0400 Dressing Change Time 1833 05/01/24 0400 Airway Insertion Details [REMOVED] Advanced Airway: ETT, Oral;Cuffed #8 (Removed) 05/02/24 0804 Pre-Oxygenation/ Induction: Rapid Sequence Induction?: Yes Mask Ventilation: Blade Type: Hyperangulated Blade Size: Visualization: Grade 1 Airway Type: ETT, Oral;Cuffed Airway Size: #8 Post Insertion Assessment: Confirmation: Equal bilateral breath sounds, CO2 confirmed # Attempts >1: Special Equipment: Glidescope Present on Admission?: Previously Removed / Not Present: Removal Reason: Not Removed at Discharge: Removed 05/02/24 1236 Location (cm) 24 05/02/24 08 Measured from: Lips 05/02/24803 Secured via: Taped 05/02/24803 Site Assessment WNL 05/02/24803 All non-working IVs have been removed: N/A Hand off Completed: Yes 1. The patient was identified. 2. Pertinent medical history was relayed. 3. A brief discussion was had about any pertinent surgical/ procedural issues. 4. Intraoperative/ anesthetic management issue and concerns were discussed. 5. Plans for the early post-operative period relayed. 6. An opportunity for questions and acknowledgment of understanding of the report was received. Pam Smyth MD OR NURSING Observed: 05/02/2024 12:19 PM Status: COMPLETED Source: [facility] Report called to 5w rn PROGRESS NOTES Observed: 05/02/2024 9:19 AM Status: COMPLETED Source: [facility] DEPARTMENT OF SURGERY DIVISION OF TRAUMA, BURN, AND CRITICAL CARE TRAUMA INTENSIVE CARE UNIT (TICU) DAILY PROGRESS NOTE Patient: Amado Tran, 59 year old, male : 1965 Admit Date: 04/30/2024 Room: Main OR/PeriOp Today's Date: 05/02/2024, Length of stay: 2 day(s) Code Status: Full Code Height: 5' 9 Weight: 142.4 kg BMI: 46.37 SURGICAL ICU - STAFF NOTE Patient seen and examined on 05/02/2024 Interval History/Events: Background: Amado Tran is a 59 year old y/o male with PMH of Hyperparathyroidism, Pacemaker, ARASH, CAROL, HLD, GERD, Depression, ESRD (HD MWF, RUE AV Fistula), CKD, HTN, T2DM, Systolic HF, and atrial fibrillation on Eliquis who presented to via [facility] as an inter facility transfer from [place] s/p Fall. Per reports Pt was at a instant oil change location when he exited his vehicle to assist the senior quality control technician in opening his vehicle door, when he stepped behind his vehicle he accidentally fell through the floor opening aprox 6ft. Pt. Reports falling straight down, negative LOC, negative head strike. Pt was unable to get up under his own strength, EMS was called and Pt was extricated via EMS/FD, immobilized and transported to [facility] ED. Imagine at OSH demonstrated a Grade 1 splenic injury, multiple bilateral ribs fxs, and multiple pelvic fractures. Pt. Received K-centra, as well as PRBC X 2 and Calcium Gluc. [facility] was requested for transport to for orthopedics and trauma evaluations. EN route Pt received an additionalunit of whole blood. On arrival to pt is alert and oriented x 3, w/GCS-15. Pt. On 4LNC, Labile blood pressures and received an additional PRBC X 1, FFP X 1 in ED. [facility] given the absence of contrast at [facility]SH. Pt. Had CVC and A-line placed in ED. Hospital Course: 04/30: Admitted to TICU s/p fall with B/L rib fxs, Pelvic fx's, and questionable Grade 1 splenic injury s/p fall at [facility] location. 05/01: Titrated on levophed. CBC trended. Seen by EP for pacer, no interrogation to be performed 2/2 EOL device. Upright XR done. OR deferred. Dialyzed. One-Liner: Pt is a 59 year old male with PMH of ESRD on HD MWF, T2DM, HFrEF and atrial fibrillation on eliquis who presented as a CAT 1 trauma as a transfer from [facility] and was admitted to the TICU for multiple traumatic injuries including Grade 1 splenic injury, multiple bilateral rib fractures, multiple pelvic fractures resulting from a 6 foot fall into auto mechanical bay. Course complicated by hypotension requiring multiple blood products including PRBC x3, whole blood x1, FFP x1, as well as levophed gtt. Acute overnight events: On BIPAP again for suspected ARASH. No other acute events. Drips: Levophed @ 0.08 mcg/kg/min Pertinent Labs AND Img: WBC 11.2, Hgb 9.6, Plt 81. Na 133, K 4.3, CO2 27, Gap 14, BUN 23, Cr 4.89. ABG @ 0600, pH 7.33, PCO2 50.8, PO2 74 Mg 2.0, Phos 4.2. Lines, Tubes, Drains: CVC - left femoral, RUE fistula, caceres, left art line 2 x PIV on left Vitals AND I/Os: 24 Hour Vitals Range: Vital sign ranges over the past 24 hours (retrieved 05/02/2024 at 9:19 AM): Tmax (24 hours): 100.1 ???F (37.8 ???C) Pulse Av.7 Min: 69 Max: 88 Systolic (24hrs), Av , Min:130 , Max:130 Diastolic (24hrs), Av, Min:48, Max:48 MAP (mmHg) Av mmHg Min: 70 mmHg Max: 70 mmHg Resp Av.7 Min: 13 Max: 22 SpO2 Av.1 % Min: 89 % Max: 100 % Vital Signs: Patient Vitals for the past 24 hrs: BP Temp Temp src Pulse Resp SpO2 O2 Device O2 Flow Rate (l/min) 05/02/24 0800 -- 99 ???F (37.2 ???C) Oral -- -- -- -- -- 05/02/24 0730 -- -- -- 81 20 93 % -- -- 05/02/24 0700 -- -- -- 81 16 98 % -- -- 05/02/24 0600 -- -- -- 83 17 98 % -- -- 05/02/24 0500 -- -- -- 81 13 96 % Nasal cannula 3 05/02/24 0400 -- 99.8 ???F (37.7 ???C) Axillary 84 -- 97 % BiPAP -- 05/02/24 0300 -- -- -- 84 18 92 % -- -- 05/02/24 0200 -- -- -- 83 17 93 % -- -- 05/02/24 0100 -- -- -- 81 15 94 % -- -- 05/02/24 0042 -- 100.1 ???F (37.8 ???C) Axillary 84 18 92 % BiPAP 3 05/02/24 0000 -- -- -- 84 20 95 % BiPAP -- 05/01/24 2317 -- -- -- 88 20 94 % BiPAP 3 05/01/242309 -- -- -- 87 19 95 % -- -- 05/01/24 230 -- -- -- 87 14 95 % -- -- 05/01/24 220 -- -- -- 86 17 94 % -- -- 05/01/242099 -- -- -- 86 17 96 % -- -- 05/01/242014 -- -- -- 84 17 96 % Nasal cannula 3 05/01/242003 -- -- -- 86 19 94 % Nasal cannula 3 05/01/241999 -- 98.5 ???F (36.9 ???C) Axillary 86 20 93 % Nasal cannula 2 05/01/24 1900 -- -- -- 87 22 93 % -- -- 05/01/24 1800 -- -- -- 86 21 89 % Nasal cannula 2 05/01/24 1700 -- -- -- 78 16 95 % -- -- 05/01/24 1619 -- -- -- 77 15 96 % Nasal cannula 2 05/01/24 1600 -- 98 ???F (36.7 ???C) Axillary 82 16 95 % Nasal cannula 2 05/01/24 1500 -- -- -- 75 -- 94 % -- -- 05/01/24 1453 -- -- -- 74 14 96 % -- -- 05/01/24 1400 -- -- -- 78 18 95 % Nasal cannula 2 05/01/24 1300 -- -- -- 84 17 92 % -- -- 05/01/24 1216 -- -- -- 77 20 92 % -- -- 05/01/24 1200 -- 98 ???F (36.7 ???C) Axillary 80 19 98 % Nasal cannula 1 05/01/24 1159 -- -- -- 79 19 100 % Nasal cannula 1 05/01/24 1150 -- -- -- 78 17 99 % Nasal cannula 2 05/01/24 1100 -- -- -- 69 20 99 % -- -- 05/01/24 1000 130/48 -- -- 75 18 100 % Nasal cannula 2 24 Hour I AND Os: In: 625.4 (4.4 mL/kg) [P.O.:180; I.V.:445.4 (0.1 mL/kg/hr)] Out: 17 (0.1 mL/kg) [Urine:17 (0 mL/kg/hr)] Net: 608.4 Weight: 142.4 kg Physical Exam: General: Awake and alert, no acute distress. Supine in bed. Neurological: AAOx4, GCS-15. HEENT: PERRL, EOMI, no conjunctival injection or scleral icterus. Cardiac: Regular rate and rhythm, NSR on monitor, easily palpable peripheral pulses w/ brisk cap refill. Pulmonary: Clear to auscultation bilaterally. No wheezing, rhonchi, or rales.On 2LNC. Abdomen: Large, rounded, soft, non-tender, non-distended. Pelvic binder in place. Extremities: RLE in KI and traction, Baseline neuropathy in BLE no worse at this time per Pt, LUE w/ TTP primarily in Left shoulder, MSP 's intact x 4 extremities. Lab Data: 11.2 9.6 / 81 / 29.6 CBC: 05/02/2024: 2:14 AM 133 100 23 / 190 4.3 27 4.89 BMP: 05/02/2024: 8:50 AM BMP: BMP (last 3 years, up to 8 values) 05/02/2024 05/02/2024 05/01/2024 04/30/2024 8:50 AM 2:14 AM 12:12 AM 8:38 PM Na 133 134 135 136 K 4.3 4.7 5.1 5.3 Cl 100 98 103 102 CO2 -- 27 24 22 Gap -- 14 13 17 Glu 190 223 151 268 BUN -- 23 32 34 Cr -- 4.89 6.42 6.30 Ca -- 8.2 8.8 8.5 eGFR -- 13 9 9 CBC: CBC (last 3 years, up to 8 values) 05/02/2024 05/02/2024 05/01/2024 05/01/2024 05/01/2024 05/01/2024 04/30/2024 04/30/2024 8:50 AM 2:14 AM 8:24 PM 2:55 PM 8:00 AM 12:12 AM 8:38 PM 5:22 PM WBC -- 11.2 13.7 10.7 13.3 16.2 16.7 19.2 RBC -- 3.21 3.31 3.39 3.61 3.78 4.08 3.69 Hgb 9.6 9.8 10.4 10.6 11.3 11.7 12.6 11.5 Hct 29.6 29.9 30.8 31.7 33.6 35.0 38.6 36.1 MCV -- 93 93 94 93 93 95 98 RDW -- 18.0 17.9 18.0 18.5 18.0 18.5 18.1 Plt -- 81 89 79 88 96 102 135 PT/PTT/INR: PT/PTT/INR (last 3 years, up to 8 values) 05/01/2024 05/01/2024 04/30/2024 4:51 PM 10:10 AM 8:44 PM aPTT 29 -- -- INR -- 1.16 1.29 Type AND Screen: Type AND Screen (Last result in the past 30 days) 04/30/2024 04/30/2024 5:21 PM 4:30 PM ABO Rh A Positive A Positive Screen Int. -- Negative ABG: Arterial Blood Gases T Site Mode LPM FIO2 pH pCO2 pO2 Sat Base Ex HCO3- A-a 05/02/24 0850 25 05/02/24 0850 7.400 40.7 165 97.5 0.4 25 05/02/24 0842 Not Indicated 21% 7.386 43.0 165 97.9 0.6 25 05/02/24 0210 BIPAP 3 LPM 7.338 50.8 74 95.8 0.8 27 05/01/24 1850 Nasal Canula 2 LPM 7.346 45.1 63 91.6 -1.2 24 05/01/24 1454 Nasal Canula 2 LPM 7.353 48.4 86 96.0 0.7 26 BNP: No result for BNP Hepatic Panel: LFT's (last 3 years, up to 8 values) No lab values to display. Glucose: Fingerstick Glucose (last 72 hours) Glucose 05/02/24 6218 210 Comment: Notified RN RONY LOPEZ
05/01/24 2215 238 05/01/24 1748 177 05/01/24 0951 163 05/01/24 0405 195 04/30/24 2128 221 A1c: No results found for: HBA1C TSH: No results found for: TSH Blood Culture: Blood Culture No lab values to display. Urine Culture: Urine Culture (last 1 year) No lab values to display. Respiratory Culture: Respiratory Culture, Misc No lab values to display. Wt Readings from Last 5 Encounters: 04/30/24 (!) 314 lb (142.4 kg) Imaging Results (over previous 24 hours): N/a Assessment and Plan: Diagnosis s/p fall down ~ 6Ft hole: - Right L1-L3 TP Fx - Anterior tension ban disruption of T11 - Right superior/inferior pubic rami Fx w/ extension into acetab - Left scapular Fx w/ intramuscular shoulder hematoma - Bilateral sacral Ala Fx - Right 2,3,4,5,6,7,8 Rib Fx - Left 4,5,6,7,8 Rib Fx - Bilateral pulmonary contusions - Right pleural effusion - Trace hemoperitoneum - Right distal femur fx - Acute blood loss anemia - Hemorrhagic shock - Shock of unknown etiology Associated Hospital Diagnosis: - Hyperkalemia - Hypomagnesemia PMH: - Hyperparathyroidism - ARASH - CAROL - Atrial- Fibrillation - HTN - HLD - Pacer - GERD - ESRD - Depression - CKD - T2DM - CHF Home Medications: ASA 81mg daily Insulin NPH Pioglitazone 30mg daily Sertraline 100mg daily Amiodarone 200mg Sevelamer 1600mg TID Apixaban 5mg daily Atorvastatin 40mg daily Gabapentin 100mg daily Midodrine 10mg daily Omeprazole 40mg daily Incidental Findings: - Cholelithiasis - Indeterminate right adrenal nodule Plan: Neurological: # Acute post traumatic pain # Hx of Depression - Acetaminophen 1G Q8hrs sched -> 1g q6 - Oxycodone 5/10mg Q4hrs PRN - Topical Lidocaine patch - Dilaudid BT - Robaxin 750mg QID - Cont home Gabapentin, Zoloft Cardiovascular: # Hx of HTN, HLD, CHF, Pacer, A-fib - Cardiology consulted for pacer interrogation given need for MRI -> seen by EP and per them would be ok for MRI as battery is - cannot be interrogated given age - see separate note from EP - Cont TELE monitoring - Maintain MAP > 65 - cont home Amio, Lipitor, Midodrine - Holding home ASA, Apixaban - last echo 01/05, LVEF 60%, no need for repeat - EKG obtained - continue Levophed as needed to maintain MAP of 65 Respiratory: # Hx of ARASH - Cont Pulse ox monitoring - Maintain SpO2 >92%, Provide supplemental o2 as needed - 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 - Encourage incentive spirometry - requiring Bipap at bedtime for suspected ARASH, hypoventilation - has home CPAP prescribed, noncompliant - repeat ABG improved on NC during daytime hours GI/Diet: # Hx of GERD - Diet: NPO - NPO except for medications, will advance diet as tolerated - Senna 8.6 mg PO at bedtime/ Miralax daily - Zofran 4 mg IV q6h PRN nausea/vomiting, requiring frequently, other antiemetics contraindicated given prolonged QTC - Continue pantoprazole in place of home esomeprazole Renal/Electrolytes: # Hx of ESRD - Nephrology consulted aprec recs ->dialysis today - mIVF: none given renal disease - BMP/Mg/P daily - Replace electrolytes as indicated - Maintain Mg >2, K >4 - Measure strict I AND O - Continue home Renvela - given anuric at baseline can jak caceres post-op Infectious Disease: - Afebrile, no leukocytosis - No current indication for antibiotics, will initiate santi-operatively pending OR course - Monitor temperature and WBC for signs of infection Hematology: # Hemorrhagic shock - Maintain active T/S - CBC daily - Maintain hemoglobin >7 - repeat set of labs post OR Endocrine: # Hx of Hyperparathyroidism, T2DM - POCT q6Hrs while NPO - Lispro sliding scale units subcutaneous q6 - Monitor blood glucose levels, adjust regimen above for BGL control between 140-180 - Hold home Insulin NPH, pioglitazone Musculoskeletal: # Pelvic Fx's # Right distal femur fx # Left Scap Fx - Orthopedics Consulted aprec recs: plans for OR today 05/02 -> - Admit to Trauma Surgery/TICU service - Consented for right femur IMN, pelvic posterior fixatipn possible anterior fixation vs. Ex fix - Posted for surgery on 05/01 - Trauma team please document clearance for OR. zTs - Weightbearing: NWB RLE - Antibiotics: none preop, order placed for perioperative antibiotics - DVT ppx: per primary - Pain control per primary - Diet: NPO since midnight for OR - Ortho spine: - Not cleared for OR with Ortho until Tspine uprights complete - C/T/L Precautions until all imaging reviewed and plans finalized - Please obtain pre-operative labs (BMB, CBC, Coags, T AND S, UA, CXR, EKG) - Hold DVT ppx in anticipation of possible surgery - Consideration of operative fixation pending T spine uprigthts. - PT/OT - Progressive mobility guidelines Prophylaxis: - SCDs Bilaterally - held chemoprophylaxis in setting of shock and unstable pelvic fracture, can initiate post-operatively pending OR course Follow Up: - PCP: No primary care provider on file. LDA/Restraints: - PIV X 2 - A-line - CVC - Caceres Code Status: - Full Code Disposition: - Cont TICU care and MGMT Royce Reynoso DO Teaching Physician Note: I saw and evaluated the patient. I personally obtained the kirby and critical portions of the history and physical exam. I reviewed the trainee's documentation and discussed the patient with the trainee. I agree with the trainee's medical decision making as documented in the trainee's note unless otherwise noted by me. This note represents our aggregated findings and impressions. Critical care time was provided for 30 minutes. The time involved in the performance of this care was exclusive of separately billable procedures, teaching time and treating other patients. This time was spent personally by the attending physician for the following activities: examination of patient, ordering and/or performing treatments, ordering and reviewing laboratory and radiographic studies, and if applicable, ventilatory management and blood gas interpretation. Critical care was necessary because of an illness or injury that acutely impaired one or more vital organs systems such that there was a high probability of imminent or life threatening deterioration in the patient's condition. The following organ systems are involved: cardiovascular respiratory renal STEPHANIE Krishnan MD [facility] Division of Trauma, Critical Care, Yu, and Emergency General Surgery Department of Surgery [facility] [phone] CONSULTS Observed: 05/02/2024 8:55 AM Status: COMPLETED [facility]: [facility] OCCUPATIONAL THERAPY Consult received and chart reviewed: Patient off the unit in the OR. Will continue to follow Derian Vargas OTR/L OP NOTE Observed: 05/02/2024 8:54 AM Status: COMPLETED Source: THE [facility] SYSTEM Name: Amado Tran MR#: [id number] [facility]#: [id number] Date of Procedure: 05/02/2024 ATTENDING SURGEON: Kayode Biggs MD SURGICAL STAFF: Scrub: Cely Foster RN Colorist Formulator Nurse: Alejo Goncalves Interactive Marketing Strategist: Robi [employer] Boat Mate: Padmini Thapa MD PREOPERATIVE DIAGNOSIS: 1. Closed, right femoral shaft fracture. 2. Multiple pelvis fractures with unstable pelvic ring. 3. Closed, left scapular body fracture POSTOPERATIVE DIAGNOSIS: 1. Closed, right femoral shaft fracture. 2. Multiple pelvis fractures with unstable pelvic ring. 3. Closed, left scapular body fracture PROCEDURE: 1. Intramedullary rodding right femoral shaft fracture (CPT 29861). 2. Percutaneous fixation posterior pelvis (CPT 47495). 3. Insertion and removal of proximal tibia skeletal traction pin (CPT 44941). 4. Exam under anesthesia pelvis (CPT 94423). Please insert a 22 modifier for all of the above codes due to increased complexity and difficulty secondary to the patient's morbid obesity, BMI of 46.4. 5. Closed treatment of left scapular body fracture without manipulation (CPT 53727) ANESTHESIA: General ESTIMATED BLOOD LOSS: 300 mL. COMPLICATIONS: None IMPLANTS USED: Implant Name Type Inv. Item Serial No. Piano Regulator Inspector Lot No. LRB No. Used Action NAIL 12MM 380MM FEM T2 IM EA1 [id number] - [id number] Nail Rods AND Pins NAIL 12MM 380MM FEM T2 IM EA1 [id number] [place] [id number] Right 1 Implanted SCR BONE RUDY 5X90MM EA1 [id number] - [id number] Screw SCR BONE RUDY 5X90MM EA1 [id number] [place] [id number] Right 1 Implanted SCR BN 5MM 85MM LCK STRL EA1 [id number] - [id number] Screw SCR BN 5MM 85MM LCK STRL EA1 [id number] [place] [id number] Right 1 Implanted SCR BN 5MM 85MM LCK STRL EA1 [id number] - [id number] Screw SCR BN 5MM 85MM LCK STRL EA1 [id number] [place] [id number] Right 1 Implanted SCR BN 5MM 40MM T2 ALPHA LCK EA1 [id number] - [id number] Screw SCR BN 5MM 40MM T2 ALPHA LCK EA1 2360-5040S [place] [id number] Right 1 Implanted SCR BN 5MM 85MM LCK STRL EA1 2361-5085S - [id number] Screw SCR BN 5MM 85MM LCK STRL EA1 2361-5085S [place] [id number] Right 1 Implanted SCR BN 5MM 40MM T2 ALPHA LCK EA1 2360-5040S - [id number] Screw SCR BN 5MM 40MM T2 ALPHA LCK EA1 2360-5040S [place] [id number] Right 1 Implanted CANNULATED SCREW 8MM X 40MM X 180MM [id number] Screw [place] Right 1 Implanted WASHER FOR 6.5/8.0 SCREW EA1 [id number] - [id number] Washer WASHER FOR 6.5/8.0 SCREW EA1 [id number] [place] Right 1 Implanted SCR BN 5MM 60MM T2 ALPHA LCK EA1 2360-5060S - [id number] Screw SCR BN 5MM 60MM T2 ALPHA LCK EA1 2360-5060S [place] [id number] Right 1 Implanted SCR BN 5MM 70MM LCK STRL EA1 2361-5070S - [id number] Screw SCR BN 5MM 70MM LCK STRL EA1 2361-5070S [place] [id number] Right 1 Implanted INDICATION FOR SURGERY: Amado Tran is a 59-year-old male with a medical history significant for morbid obesity, BMI of 46.4, end-stage renal disease on dialysis, hypertension, type 2 diabetes, chronic systolic congestive heart failure, atrial fibrillation, history of pacemaker placement who presents with a closed, right femoral shaft fracture; multiple fractures of the pelvis with suspected unstable pelvic ring; and a left scapular body fracture that occurred after he fell from a height of roughly 6 ft. He is indicated for intramedullary rodding of the femoral shaft fracture with exam under anesthesia of the pelvis followed by possible fixation of the pelvic ring. The scapular body fracture can be treated non operative. We discussed all treatment options; conservative and operative. Risk, benefits, alternatives and expected outcomes of surgery were discussed with the patient with risks including, but not limited to infection, wound complications, need for further surgery, nonunion, malunion, arthritis, loss of motion, blood loss, blood clot, pain, scarring, damage to nerves/vessels/nearby structures, need for blood product transfusion as well as other complications. They verbalized their understanding of this and would like to proceed with surgery. PROCEDURE IN DETAIL: The patient was seen in the preoperative holding area. Informed consent was obtained and the operative extremity was signed. A preoperative brief was completed. They were taken to the operative suite. They were anesthetized and transferred to the operating room table. The patient was prepped and draped in the usual sterile manner. A time-out was performed confirming the patient's name, Medical record number, date of , procedure and surgical site. All members of the operating room staff were in agreement. 3 g of IV Ancef were given for prophylactic antibiotics. The patient was positioned supine on the operating room table. I started with intramedullary rodding of the femur. That would allow me to stabilize the right lower extremity and stressed the pelvis to examine if there was an occult fracture of the left hemipelvis. I started with the infrapatellar approach to the knee. The patellar tendon was retracted laterally and the starting guidewire was placed. Next, I used the opening channel Reamer to enter the intramedullary canal of the distal femur. At this point, I placed a proximal tibia skeletal traction pin from lateral to medial and hung 20 lb of traction already regain length. I then placed sterile bolsters posteriorly and the length and alignment was restored. However, the fracture was still gapped in the sagittal plane so I elected to perform a lateral approach to the fracture site. I elevated the vastus lateralis and placed 2 large standard reduction clamps to reduce the fracture in the sagittal plane. Once the fracture was completely reduced, I placed a ball-tipped guidewire up to the level of the proximal femur. I measured the length of the gentry and then began sequentially reaming to a size 13 mm Reamer. A size 12 mm x 380 mm retrograde gentry was placed over the ball-tipped guidewire. The ball-tipped guidewire was removed. Next, I placed 5 advanced locking distal interlocking screws using the aiming jig. I then used the aiming arm to place 2 proximal interlocking screws. The reduction clamps were removed and final fluoroscopic views demonstrated satisfactory hindu of the length, alignment and rotation of the femur with proper positioning of the implants. The knee and the femoral neck were examined. The knee was found to be stable and there are no fractures of the femoral neck. The drapes were broken down and I then performed a exam under anesthesia of the pelvis using fluoroscopy. An AP fluoroscopic view was obtained followed by 4 more views. These views included internal rotation, external rotation with push and pull of the hemipelvis for a total of five views. I then repeated this with an inlet and outlet. Knee exam did not demonstrate any motion of the left hemipelvis. There was only some internal and external rotation of the right hemipelvis through the SI joint. The patient's pelvis was then prepped and draped in the usual sterile manner. I then obtained my starting point using a lateral fluoroscopic view of the sacrum. Next, I alternated between inlet and outlet views and advanced a guidewire from right to left across the S1 corridor. Once I was satisfied with the position of the guidewire the length of the screw was measured and I placed a 180 mm partially-threaded screw with a washer from right to left and visualize right SI joint closing on fluoroscopic views. I then repeated a stress exam and noted that there was no motion occurring of the pelvis. Incisions were irrigated with sterile saline and the deep layers were closed with 0 Vicryl sutures followed by 2-0 Vicryl sutures for the subcutaneous layers and 3-0 nylons for the skin. All the incisions were dressed with Xeroform, sterile fluffs and Tegaderm. Drapes were removed. The patient was awoken from anesthesia after being transferred back to the standard hospital bed . No complications were encountered throughout the procedure, and counts were correct x2. TOURNIQUET TIME: None POSTOPERATIVE PLAN: The patient will be nonweightbearing on the bilateral lower extremities. Weightbearing as tolerated with no restrictions to regards to shoulder motion to the left upper extremity DVT prophylaxis per the primary team They will work with Physical Therapy as well as Occupational Therapy while in house. Return to clinic in 2-3 weeks for incision check. I, Kayode Biggs, was present for all critical portions of the procedure. Kayode Biggs MD BRIEF OPERATIVE NOTE Observed: 4 8:54 AM Status: COMPLETED Source: [facility] Brief Operative Note MAIN OR 08 Amado Tran 59 year old male Surgical Contact Serial Number: [id number] Preoperative Diagnosis: Pre-op Diagnosis * Hemorrhagic shock (HCC) [R57.8] Postoperative Diagnosis: * Hemorrhagic shock (HCC) [R57.8] Procedures: No data filed Right femur retrograde nail, open reduction and internal fixation right femur, right sacroiliac percutaneous reduction and fixation Surgeon(s): Surgeon(s): Kayode Biggs MD Staff: Scrub: Cely Foster RN Colorist Formulator Nurse: Alejo Goncalves Interactive Marketing Strategist: Robi Eagle [employer] Boat Mate: Padmini Thapa MD Anesthesia: General Anesthesiologist: John Nayak MD Wire Photo Operator: Pam Smyth MD Specimen(s): * No specimens in log * Estimated Blood Loss: 300 cc Lines/Drains: CVC - Triple Lumen: 04/30/24 Anterior;Left;Proximal Femoral (Active) Site Assessment WNL;Dressing intact 05/02/24 07 Proximal Port (Label #1) Capped;Patent;Positive blood return 05/02/24 07 Medial Port (Label #3) Capped;Patent;Positive blood return 05/02/24 0700 Distal Port (Label #2) Infusing;Patent;Positive blood return 05/02/24 07 Dressing Change Date 04/30/24 05/01/24 0400 Dressing Change Time 18205/01/24 0400 Cap Change Date 04/30/24 05/01/24 0400 Cap Change Time 18205/01/24 0400 Peripheral IV Access: 04/30/24 171 20 gauge Left Antecubital (Active) Site Assessment WNL;Dressing intact 05/02/24 07 Infusion Status Port #1 Capped;Patent 05/02/24 0700 Peripheral IV Access: 04/30/24 1711 20 gauge Anterior;Left Forearm (Active) Site Assessment Dressing intact;WNL 05/02/24 07 Infusion Status Port #1 Capped;Patent 05/02/24 07 Temporarily Retained Foreign Object: No Findings: See full op note Complications: None Status at end of surgery: Stable Activity: non-weight bearing lower extermity bilateral Surgical wound class: Yes, wound was clean. Patient Class: Inpatient. Post-Op Plan: - Pelvic xray AP post op - Ancef 3 G q8h for 2 more doses - NWB BLE - Pain control: recommend multimodal - tylenol standing q6h, oxycodone q4h PRN, tramadol PRN, dilaudid PRN for breakthrough - May resume DVT PPX as per primary team Dr. Biggs was present in the OR for the critical portion of the procedure and procedure sign-out. Signed by Padmini Thapa MD 05/02/2024 1:06 PM BLOOD GAS, ARTERIAL Collected: 05/02/20 8:50 AM Status: F Source: THE [facility] SYSTEM TYPE CODE TESTS RESULT OUT OF RANGE REFERENCE UNITS LAB CR PHA CR PHA 7.400 7.350-7.450 LAB pco2 CR PCO2 40.7 35.0-45.0 mm Hg LAB CR PO2 CR PO2 165 High 80-100 mm Hg LAB CR %O2 SAT CR % O2 SAT 97.5 95.0-99.0 % LAB CR ANAYA CR ANAYA 0.4 -2.0-3.0 mmol/L LAB CPCR HCO3 CR HCO3 25 21-28 mmol/L Performed By: #### LACT, CR GLU, CR ICA, CR LYTES, CR BGA, CR COOX #### [facility] [address] [place] [address], CO-OXIMETER Collected: 05/02/2024 8:50 AM Status: F Source: [facility] TYPE CODE TESTS RESULT OUT OF RANGE REFERENCE UNITS LAB HEMATOCRIT HEMATOCRIT 29.6 Low 42.0-54.0 % LAB HEMOGLOBIN HEMOGLOBIN 9.6 Low 13.5-17.5 g/dL LAB F6 OXYHEMOGLOBIN 95.8 94.0-98.0 % LAB CARBOXY CARBOXYHEMOGLOBIN 1.1 0.5-1.5 % LAB CR HBMET CR HBMET 0.6 0.0-1.5 % Performed By: #### LACT, CR GLU, CR ICA, CR LYTES, CR BGA, CR COOX #### [facility] [address] [place] [address], ELECTROLYTES Collected: 8:50 AM Status: F Source: [facility] SYSTEM TYPE CODE TESTS RESULT OUT OF RANGE REFERENCE UNITS LAB n7 SODIUM, WHOLE BLOOD 133 Low 136-146 mmol/L LAB POTWB POTASSIUM, WHOLE BLOOD 4.3 3.5-5.0 mmol/L LAB n9 CHLORIDE, WHOLE BLOOD 100 98-107 mmol/L LAB CPCR HCO3 CR HCO3 25 21-28 mmol/L Performed By: #### LACT, CR GLU, CR ICA, CR LYTES, CR BGA, CR COOX #### [facility] [address] [place] [address], LACTIC ACID Collected: 4 8:50 AM Status: F [facility]: [facility] TYPE CODE TESTS RESULT OUT OF RANGE REFERENCE UNITS LAB CR LACT CR LACT 1.3 0.5-1.6 mmol/L Performed By: #### LACT, CR GLU, CR ICA, CR LYTES, CR BGA, CR COOX #### [facility] [address] [place] [address], GLUCOSE, WHOLE BLOOD Collected: 024 8:50 AM Status: F Source: [facility] TYPE CODE TESTS RESULT OUT OF RANGE REFERENCE UNITS LAB CR GLU CR GLU 190 High 70-105 mg/dL Performed By: #### LACT, CR GLU, CR ICA, CR LYTES, CR BGA, CR COOX #### [facility] [address] [place] [address], CALCIUM, IONIZED Collected: 4 8:50 AM Status: F Source: [facility] SYSTEM TYPE CODE TESTS RESULT OUT OF RANGE REFERENCE UNITS LAB CR ICA CR ICA 1.09 Low 1.15-1.33 mmol/L Result Comment: This test wa s developed, and its performance characteristics determined by the Department of Pathology of [facility]. It has not been cleared or approved by the FDA. This test is used for clinical purposes only. Performed By: #### LACT, CR GLU, CR ICA, CR LYTES, CR BGA, CR COOX #### [facility] [address] [place] [address], BLOOD GAS, ARTERIAL Collected: 05/02/20 24 8:42 AM Status: F [facility] TYPE CODE TESTS RESULT OUT OF RANGE REFERENCE UNITS LAB MODE MODE Not Indicated LAB fio2 FIO2 (CATEGORY) 21% LAB CR PHA CR PHA 7.386 7.350-7.450 LAB pco2 CR PCO2 43.0 35.0-45.0 mm Hg LAB CR PO2 CR PO2 165 High 80-100 mm Hg LAB CR %O2 SAT CR % O2 SAT 97.9 95.0-99.0 % LAB CR ANAYA CR ANAYA 0.6 -2.0-3.0 mmol/L LAB CPCR HCO3 CR HCO3 25 21-28 mmol/L Performed By: #### CR BGA ## ## [facility] [address] [place], [place], CONSULTS Observed: 05/02/2024 7:58 AM Status: COMPLETED Source: [facility] PHYSICAL THERAPY Consult received, chart reviewed. Plan for OR today with ortho for ORIF of R femur, acetabulum and pelvis. PT will f/u post-op. Robyn Fernández DPT Preferred secure chat Fri/Sat/Sun only OR NURSING Observed: 05/02/2024 7:35 AM Status: COMPLETED Source: [facility] Report called to 5w rn BLOOD ATTESTATION Observed: 05/02/2024 7:34 AM Status: COMPLETED Source: [facility] SYSTEM Blood Attestation: Discussed with patient at 7:30 am ATTESTATION OF INFORMED CONSENT FOR BLOOD: The transfusion of blood and/or blood components were discussed with the patient and/or legal sales representative door to door. The risks, benefits and alternatives were reviewed. Questions regarding blood transfusions were answered. The patient /or the patient's legal sales representative door to door agree with the plan for transfusion of blood and/or blood components. RED BLOOD CELL COMPONENT Collected: 7:15 AM Status: F Source: [facility] TYPE CODE TESTS RESULT OUT OF RANGE REFERENCE UNITS LAB 99 BB ORDER ITEM Product status info to follow Performed By: #### RBO #### [facility] [address] [place], [place], RED BLOOD CELL UNIT STATUS Collected: 05/02/2024 7:15 AM Status: C Source: [facility] TYPE CODE TESTS RESULT OUT OF RANGE REFERENCE UNITS LAB XM CROSSMATCH INTERPRETATION Compatible (E) LAB UT BLOOD PRODUCT UN IT TYPE 6200 Result Comment: A Pos LAB UN BLOOD PRODUCT UN IT INFO [id number] LAB ST BLOOD PRODUCT STATUS Released to avail LAB PI BLOOD PRODUCT DESCRIPTION Red Blood Cells LAB SPC BLOOD PRODUCT CODE [id number] Performed By: #### RBU #### [facility] [address] [place] [address], PLASMA STATUS Collected: 05/02/2024 7:15 AM Status: C Source: [facility] SYSTEM TYPE CODE TESTS RESULT OUT OF RANGE REFERENCE UNITS LAB UT BLOOD PRODUCT UNIT TYPE 6200 Result Comment: A Pos LAB UN BLOOD PRODUCT UNIT INFO [id number] LAB ST BLOOD PRODUCT STATUS Released to avail LAB PI BLOOD PRODUCT DESCRIPTION FFP LAB SPC BLOOD PRODUCT CODE [id number] Performed By: #### FFU #### [facility] [address] [place] [address], FFP Collected: 7:15 AM Status: F Source: [facility] TYPE CODE TESTS RESULT OUT OF RANGE REFERENCE UNITS LAB 99 BB ORDER ITEM Product status info to follow Performed By: #### FFO #### [facility] [address] [place] [address], PLASMA STATUS Collected: 05/02/2024 7:15 AM Status: C Source: [facility] TYPE CODE TESTS RESULT OUT OF RANGE REFERENCE UNITS LAB UT BLOOD PRODUCT UNIT TYPE 6200 Result Comment: A Pos LAB UN BLOOD PRODUCT UNIT INFO [id number] LAB ST BLOOD PRODUCT STATUS Released to avail LAB PI BLOOD PRODUCT DESCRIPTION FFP LAB SPC BLOOD PRODUCT CODE [id number] Performed By: #### FFU #### [facility] [address] [place] [address], RED BLOOD CELL UNIT STATUS Collected: 05/02/2024 7:15 AM Status: C Source: [facility] SYSTEM TYPE CODE TESTS RESULT OUT OF RANGE REFERENCE UNITS LAB XM CROSSMATCH INTERPRETATION Compatible (E) LAB UT BLOOD PRODUCT UN IT TYPE 6200 Result Comment: A Pos LAB UN BLOOD PRODUCT UN IT INFO [id number] LAB ST BLOOD PRODUCT STATUS Released to avail LAB PI BLOOD PRODUCT DESCRIPTION Red Blood Cells LAB SPC BLOOD PRODUCT CODE [id number] Performed By: #### RBU #### [facility] [address] [place] [address], ANESTHESIA PREPROCEDURE EVALUATION Observed: 05/02/2024 7:04 AM Status: COMPLETED Source: [facility] ASA: 4 Past Medical History and Review of Systems Pulmonary (+) sleep apnea Comment: Multiple rib fractures Dental Endo (+) diabetes mellitus type 2 Neuro/Psych (+) depression C-spine cleared Cardiovascular (+) arrhythmia, CHF, Surgical risk: high (vascular); Cardiac condition: stable, hyperlipidemia ECG reviewed GI/Hepatic/Renal (+) renal disease ESRD and dialysis Heme/Other (+) anemia Comment: Anemia secondary to hemorrhagic shock. Preop hemoglobin 9.8 Other ROS: Amado Tran is a 59 year old y/o male with PMH of Hyperparathyroidism, Pacemaker, ARASH, CAROL, HLD, GERD, Depression, ESRD (HD MWF, RUE AV Fistula), CKD, HTN, T2DM, Systolic HF, and atrial fibrillation on Eliquis who presented to via [facility] as an inter facility transfer from [facility] s/p Fall. Per reports Pt was at a instant oil change location when he exited his vehicle to assist the senior quality control technician in opening his vehicle door, when he stepped behind his vehicle he accidentally fell through the floor opening aprox 6ft. Pt. Reports falling straight down, negative LOC, negative head strike. Pt was unable to get up under his own strength, EMS was called and Pt was extricated via EMS/FD, immobilized and transported to [facility] ED. Imagine at OSH demonstrated a Grade 1 splenic injury, multiple bilateral ribs fxs, and multiple pelvic fractures. Pt. Received K-centra, as well as PRBC X 2 and Calcium Gluc. [facility] was requested for transport to for orthopedics and trauma evaluations. EN route Pt received an additional unit of whole blood. On arrival to pt is alert and oriented x 3, w/ GCS-15. Pt. On 4LNC, Labile blood pressures and received an additional PRBC X 1, FFP X 1 in ED. Pt was COTE scanned again here at [facility] given the absence of contrast at OSH. Pt. Had CVC and A-line placed in ED. Per EP, pacemaker battery depleted , cannot be interrogated Physical Exam Airway Dental Pulmonary Cardiovascular Neuro Plan Anesthesia plan: general; (ETT) Anesthesia risks / alternatives discussed pre-op Questions answered / anesthesia plan accepted Past medical history, surgical history, allergies, and medications reviewed. Pertinent laboratory tests, EKG, imaging, and consults reviewed and I have personally seen and evaluated the patient, repeating kirby portions of the history and physical examination. Attestation: Anesthesia options were discussed with the patient and/or legal sales representative door to door. The risks, benefits and alternatives were reviewed. Questions regarding anesthesia were answered. Patient and/or legal sales representative door to door knows such anesthetics and procedures may be performed by Resident physicians, Certified Anesthesiologist Assistants, or Certified Nurse Anesthetists under the supervision of a physician. The patient /or the patient's legal sales representative door to door agree with the plan for anesthesia. MHPATFORM GLUCOSE, FINGERSTICK-IN OFFICE Collecte d: 05/02/2024 3:58 AM Status: F Source: [facility] SYSTEM TYPE CODE TESTS RESULT OUT OF RANGE REFERENCE UNITS LAB [place] GLUCOSE, POC 210 High 74-109 mg/dL Result Comment: Notified RN RONY LOPEZ Performed By: #### [id number] ### # NURSING GLUCOSE PROGRAM [address] [place] [address], [facility] MAGNESIUM Collected: 2:14 AM Status: F Source: [facility] SYSTEM TYPE CODE TESTS RESULT OUT OF RANGE REFERENCE UNITS LAB mag MG 2.0 1.9-2.7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 preferred For questions/issues: Patient will be followed by Team Elective at 0700 the day following initial consultation. Between 5pm-7am, weekends, and holidays or in the case of emergency please page ortho consult pager with urgent/emergent issues, [phone]. Ortho Team A: Dona Allred, PGY-1 Octaviano Snyder, PGY-3 Ortho Team B: Juno Beebe, PGY-2 Everett Woods, PGY-2 Ortho Elective Team: Valente Donaldson, PGY-2 Tyler Lynn, PGY-3 Ortho Hand Team: Asher Felix, PGY-4 Darren Rashid, PGY-4 Teaching Physician Note: I saw and evaluated the patient. I personally obtained the kirby and critical portions of the history and physical exam. I reviewed the resident's documentation and discussed the patient with the resident. I agree with the resident's medical decision making as documented in the resident's note. Wenceslao Johnson MD CONSULTS Observed: 05/01/2024 8:41 AM Status: COMPLETED [facility]: [facility] Attestation signed by Kayode Biggs MD at 05/03/2024 2:35 PM Teaching Physician Note: I saw and evaluated the patient. I personally obtained the kirby and critical portions of the history and physical exam. I reviewed the resident's documentation and discussed the patient with the resident. I agree with the resident's medical decision making as documented in the resident's note. Kayode Biggs MD Orthopaedic Surgery Consult [facility] Requesting Provider / Service: ED / Trauma CC: R femoral shaft fx, R LC3, L scapular body fx HPI: Amado Tran is a 59 year old male who presents to the [facility] ED after falling into a 6 foot hole. Orthopaedic surgery is consulted for recommendations for the above chief complaint. 59M (hyperparathyroidism, pacemaker, ARASH, ESRD on dialysis MWF, DM, HF, AFib on Eliquis) p/a fall into 6 ft hole. Also w R 2nd-8th and L 4th-9th rib fx, T11 compression/DISH fx, and L1-3 R TP fx. Hypotensive on arrival req 4u pRBC, now stable. Denies numbness, tingling, weakness in extremities. Arrived in pelvic binder. The patient denies fever, chills, nausea, and additional constitutional symptoms. PMH: No past medical history on file. No past surgical history on file. Social History Socioeconomic History Marital status: Single Tobacco Use Smoking status: Never Smokeless tobacco: Never Vaping Use Vaping status: Never Used Social Determinants of Health Financial Resource Strain: Low Risk (04/01/2024) Received from [facility] Overall Financial Resource Strain (CARDIA) Difficulty of Paying Living Expenses: Not very hard Food Insecurity: Unknown (04/30/2024) Hunger Vital Sign Worried About Running Out of Food in the Last Year: Never true Transportation Needs: Unknown (04/30/2024) PRAPARE - Transportation Lack of Transportation (Medical): No Physical Activity: Insufficiently Active (04/01/2024) Received from [facility] Exercise Vital Sign Days of Exercise per Week: 1 day Minutes of Exercise per Session: 10 min Stress: Stress Concern Present (04/01/2024) Received from [facility] - Occupational Stress Questionnaire Feeling of Stress : To some extent Social Connections: Moderately Isolated (04/01/2024) Received from [facility] Social Connection and Isolation Panel [NHANES] Frequency of Communication with Friends and Family: More than three times a week Frequency of Social Gatherings with Friends and Family: More than three times a week Attends Cheondoism Services: Never Active Member of Clubs or Organizations: Yes Attends Club or Organization Meetings: More than 4 times per year Marital Status: Never Intimate Partner Violence: Unknown (04/30/2024) Humiliation, Afraid, Rape, and Kick questionnaire Emotionally Abused: No Allergies Allergen Reactions Penicillins Faint Feeling Pt states when he was approx 5 years old he passed out after taking PCN Current Facility-Administered Medications: norepinephrine (LEVOPHED) 8 mg in dextrose 5% 250 mL premix, 0.01-3 mcg/kg/min, Intravenous, Continuous, Rojelio Flores MD, Last Rate: 16 mL/hr at 05/01/24 0754, 0.06 mcg/kg/min at 05/01/24 0754 albuterol (PROVENTIL) (2.5 MG/3ML) 0.083% nebulizer solution, 2.5 mg, Nebulization, QID RT, Rojelio Flores MD, 2.5 mg at 05/01/24 0800 albuterol (PROVENTIL) (2.5 MG/3ML) 0.083% nebulizer solution, 2.5 mg, Nebulization, Q4H PRN, Rojelio Flores MD sevelamer carbonate (RENVELA) tablet, 800 mg, Oral, 3x Daily with Meals, Rojelio Flores MD, 800 mg at 05/01/24 0817 amiodarone (CORDARONE) tablet, 200 mg, Oral, Daily, Rojelio Flores MD, 200 mg at 05/01/24 0817 atorvastatin (LIPITOR) tablet, 40 mg, Oral, At Bedtime, Rojelio Flores MD gabapentin (NEURONTIN) capsule, 100 mg, Oral, At Bedtime, Rojelio Flores MD midodrine tablet, 10 mg, Oral, 2x Daily with Meals, Rojelio Flores MD, 10 mg at 05/01/24 0816 pantoprazole (PROTONIX) tablet, 40 mg, Oral, Daily 30 min before breakfast, Rojelio Flores MD, 40 mg at 05/01/24 0816 sertraline (ZOLOFT) tablet, 100 mg, Oral, Daily, Rojelio Flores MD, 100 mg at 05/01/24 0818 oxyCODONE immediate release tablet, 10 mg, Oral, Q4H PRN, Tae Thompson MD, 10 mg at 05/01/24 0816 HYDROmorphone (DILAUDID) 1 mg/mL injection, 0.5 mg, Intravenous Push, Q3H PRN, Tae Thompson MD, 0.5 mg at 05/01/24 0825 polyethylene glycol (MIRALAX) 17 g packet, 17 g, Oral, Daily, Tae Thompson MD methocarbamol (ROBAXIN) tablet, 750 mg, Oral, 4x Daily, Tae Thompson MD, 750 mg at 05/01/24 0816 lidocaine (LIDODERM) 4 % patch, 2 Patch, Transdermal, Every 24 hours, Tae Thompson MD oxyCODONE immediate release tablet, 5 mg, Oral, Q4H PRN, Tae Thompson MD insulin regular (HumuLIN R) 100 UNIT/ML injection, 2-12 Units, Subcutaneous, Every 6 hours, aTe Thompson MD, 2 Units at 05/01/24 0418 dextrose 10 % iv infusion, 125 mL, Intravenous, PRN OR glucagon (GLUCAGEN) 1 MG injection, 1 mg, Subcutaneous, PRN OR dextrose (GLUTOSE) 40 % oral gel, 15 g of glucose, Buccal, PRN OR dextrose (GLUTOSE) 40 % oral gel, 30 g of glucose, Buccal, PRN, Tae Thompson MD acetaminophen (TYLENOL) tablet, 1,000 mg, Oral, Every 8 hours, Tae Thompson MD ondansetron (ZOFRAN) 4 MG/2ML injection, 4 mg, Intravenous Push, Q8H PRN, Tae Thompson MD, 4 mg at 05/01/24 0825 senna (SENOKOT) tablet, 8.6 mg, Oral, At Bedtime, Tae Thompson MD Family History: Denies family history of bleeding/clotting disorders ROS: Gen: denies fevers, chills Eyes: denies vision changes ENT: denies sore throat Resp: denies cough, weezing CV: denies chest pain Endocrine: denies fatigue GI: denies abdominal pain MSK: see above Skin: denies rash Neuro: denies numbness, tingling PHYSICAL EXAM: BP 121/54 Pulse 72 Temp 97.9 ???F (36.6 ???C) (Axillary) Resp 23 Ht 5' 9 (1.753 m) Wt (!) 314 lb (142.4 kg) SpO2 98% PF 100 L/min BMI 46.37 kg/m??? Gen: AOx3, NAD HEENT: normocephalic atraumatic Psych: appropriate mood and affect Resp: nonlabored breathing Cardiac: Extremities WWP, RRR to peripheral palpation Neuro: CN 2-12 grossly intact Skin: Visible skin without lesions or breakdown MSK: Right lower extremity: - Skin intact - Tender to palpation over thigh - Intact EHL/DF/PF - SILT in Gallegos/Sa/SP/DP/T distribution - Compartments soft and compressible - 2+ DP pulse, CR < 2 seconds Left upper extremity: - Skin intact - Tender to palpation over left shoulder - AIN/PIN/Uln motor fxn intact - SILT axillary, radial, median, ulnar distributions - Compartments soft and compressible - 2+ radial pulse. CR < 2 seconds in all digits A secondary survey was completed to the fullest extent possible given the patient's condition, and revealed no long bone or major joint tenderness beyond the findings described above. Labs: CBC/PT/INR 05/01/2024 05/01/2024 04/30/2024 04/30/2024 04/30/2024 8:00 AM 12:12 AM 8:44 PM 8:38 PM 5:22 PM WBC 13.3 16.2 -- 16.7 19.2 RBC 3.61 3.78 -- 4.08 3.69 Hgb 11.3 11.7 -- 12.6 11.5 Hct 33.6 35.0 -- 38.6 36.1 MCV 93 93 -- 95 98 RDW 18.5 18.0 -- 18.5 18.1 Plt 88 96 -- 102 135 INR -- -- 1.29 -- -- WBC/Diff 04/30/2024 5:22 PM Neutro% 80.0 Bands% 9 Lymphs% 4.0 Monos% 5.0 Basos% 1.0 Basic Metabolic Panel 05/01/2024 04/30/2024 12:12 AM 8:38 PM Na 135 136 K 5.1 5.3 Cl 103 102 CO2 24 22 Gap 13 17 Glu 151 268 BUN 32 34 Cr 6.42 6.30 Ca 8.8 8.5 Mg 2.3 1.6 PO4 3.8 -- Procedures: Bedside Procedure: Right knee Skeletal Traction Verbal consent was obtained from the patient for bedside placement of right knee skeletal traction. Timeout was performed prior to procedure to confirm the correct laterality and location for the procedure. Skin was prepped using chlorhexidine solution. Local anesthesia over the medial and lateral distal femur was obtained using 20 cc of 1% lidocaine with epinephrine. Using sterile technique, a 2/0 Steinmann pin was then advanced from lateral to medial across the proximal tibia, 2 finger breadths distal to the tibial tubercle. The patient's proximal tibia was then placed in 20 lbs of skeletal traction. The patient tolerated the procedure without apparent complication. ASSESSMENT: 59M (hyperparathyroidism, pacemaker, ARASH, ESRD on dialysis MWF, DM, HF, AFib on Eliquis) p/a fall into 6 ft hole. Also w R 2nd-8th and L 4th-9th rib fx, T11 compression/DISH fx, and L1-3 R TP fx. Hypotensive on arrival req 4u pRBC, now stable. Closed, no neurologic deficits in LE. 2+ DP, dopplerable PT. Rectal tone intact. XR/CT femur wo Hoffa or intra-articular extension. No FNFx on thins. CT pelvis w R incomplete sacral ala fx and SI widening, L sacral ala impaction, R pubic root fx w extension into superior pubic ramus, R inferior pubic ramus fx. CT chest w incompletely visualized comminuted L scapular body fx wo intra-articular extension, completion XR pending. Lactate 1.9. Now on BiPAP for hypercarbia with acidosis so unable to obtain uprights. Clearance pending improvement in respiratory status and Spine clearance. PLAN: - Admit to Trauma Surgery/TICU service - Consented for right femur IMN, pelvic posterior fixatipn possible anterior fixation vs. Ex fix - Posted for surgery on 05/01 - Trauma team please document clearance for OR. zTs - Weightbearing: NWB RLE - Antibiotics: none preop, order placed for perioperative antibiotics - DVT ppx: per primary - Pain control per primary - Diet: NPO since midnight for OR Risks, benefits, and alternatives to surgical treatment were discussed with the patient and family. Risks include but are not limited to infection, blood loss, blood clots, damage to neurovascular and musculoskeletal structures, malunion, nonunion, stiffness, wound healing complications, and catastrophic anesthesia complications. Informed consent was obtained, all questions were answered, and they agreed to proceed. This consult was seen and evaluated within 30 minutes of the initial consult. Valente Donaldson, PGY-2 Orthopedic Surgery On-Call Resident [phone] (EpicChat preferred) COMPLETE BLOOD COUNT Collected: 024 8:00 AM Status: F Source: THE [facility] SYSTEM TYPE CODE TESTS RESULT OUT OF RANGE REFERENCE UNITS LAB WBC WBC 13.3 High 4.5-11.5 K/uL LAB RBC RBC 3.61 Low 4.50-5.90 M/uL LAB HGB HGB 11.3 Low 13.9-16.3 g/dL LAB HCT HCT 33.6 Low 41.0-53.0 % LAB MCV MCV 93 80-100 fL LAB MCH MCH 31.4 26.0-34.0 pg LAB MCHC MCHC 33.8 32.0-35.9 g/dL LAB PLT PLT 88 Low 150-400 K/uL LAB RDW RDW-CV 18.5 High 11.5-14.5 % LAB MPV MPV 11.3 High 7.5-11.2 fL Performed By: #### CBC #### [facility] [address] [place], [address] CONSULTS Observed: 05/01/2024 7:49 AM Status: COMPLETED Source: THE [facility] Name: Amado Tran Age/sex: 59 y/o M : 1965 OCCUPATIONAL THERAPY CHART REVIEW Admit Date: 04/30/24 OT Referral Date: 04/30/24 Floor: [address] Room: [facility] Service: Trauma Reason for admit: fall Diagnosis: - Right L1-L3 TP Fx - Anterior tension ban disruption of T11 - Right superior/inferior pubic rami Fx w/ extension into acetab - Left scapular Fx w/ intramuscular shoulder hematoma - Bilateral sacral Ala Fx - Right 2,3,4,5,6,7,8 Rib Fx - Left 4,5,6,7,8 Rib Fx - Bilateral pulmonary contusions - Right pleural effusion - Trace hemoperitoneum - Right distal femur fx - Acute blood loss anemia - Hemorrhagic shock Procedures this admit: plan for OR with ortho for repair of pelvic and femur fractures 05/01/24 PMH: hyperparathyroidism, s/p pacemaker, ARASH, CAROL, HLD, GERD, depression, CKD on ESRD, HTN, systolic HF, A-fib Precautions/Activity: TLS precautions, full code, progressive mobility , NWB LUE, NWB BLE OT referral received and medical record reviewed. Patient not appropriate for OT eval at this time. Evaluation to follow when appropriate. Jodee Potts MOT, OTR/L Secure chat with questions XR CHEST AP OR PA 1 VIEW Observed: 05/01 7:20 AM Status: F Source: [facility] EXAMINATION: XR CHEST AP OR PA 1 VIEW 05/01/2024 06:04 AM CLINICAL HISTORY: B/L Rib fxs, worsening resp status ASSOCIATED DIAGNOSIS: B/L Rib fxs, worsening resp status ORDERING PROVIDER: OMAR CARPENTER [employer] NOTE: Imaging limited by patient condition, body habitus and inability to remove overlying pelvic binder artifact. COMPARISON: XR CHEST AP OR PA 1 VIEW 04/30/2024, 5:[address] CHEST/ABD/PELVIS W/ CONTRAST 04/30/2024, 6:[address] BODY IMAGE IMPORT(SMITH) 04/30/2024, 5:53 PM FINDINGS: Lines, tubes, and devices: Dual-chamber bipolar pacemaker via left subclavian approach. Lungs and pleura: Areas of atelectasis bilaterally, more on the left: new/progressed. Cardiomediastinal silhouette: Cardiac silhouette is prominent. Pacemaker as above Musculoskeletal: Limited visualization. Fracture of at least left scapula and bilateral RIBS. Patient appears osteopenic but this may be technical so clinical correlation will be appropriate. IMPRESSION: Developing areas of atelectasis bilaterally, more on the left. These are new/progressed since the immediate prior exam and patient presented on 04/30/2024. Mucous plugging and/or aspiration are considerations. Bilateral rib fractures at least left scapular fracture, better seen on CT MACRO: None XR PELVIS INLET OUTLET 2 VIEWS Observed: 05/01/2024 7:14 AM Status: F Source: [facility] SYSTEM EXAMINATION: XR PELVIS INLET OUTLET 2 VIEWS 05/01/2024 05:58 AM CLINICAL HISTORY: AP inlet outlet ASSOCIATED DIAGNOSIS: ORDERING PROVIDER: VALENTE TEJEDA NOTE: Imaging limited by patient condition, body habitus and inability to remove overlying pelvic binder artifact. COMPARISON: None FINDINGS: IMPRESSION: Limited detail related to body habitus. There is widening of the right SI joint evidence of discontinuity involving superior pubic ramus on the right side. These features are better seen on CT. Firm-appearing residue within the rectum. Examination is otherwise limited MACRO: None XR HIP RIGHT AP+LAT 2 VIEWS Observed: 7:11 AM Status: F Source: [facility] SYSTEM EXAMINATION: XR HIP RIGHT AP +LAT 2 VIEWSPRO/RT 05/01/2024 05:50 AM CLINICAL HISTORY: fx ASSOCIATED DIAGNOSIS: fx ORDERING PROVIDER: VALENTE DONALDSON TECHNOLOGISTS NOTE: Imaging limited by patient condition, body habitus and inability to remove overlying pelvic binder artifact. COMPARISON: CT PELVIS BONY W/O CONTRAST 04/30/2024, 6:15 PM IMPRESSION: There is limitation related to portable nature the study: Examination is centered low. Proximal shaft and intertrochanteric and neck region of the proximal right femur appear grossly intact. Examination is otherwise limited Right hip MACRO: None PROGRESS NOTES Observed: 05/01/2024 6:19 AM Status: COMPLETED Source: THE [facility] DEPARTMENT OF SURGERY DIVISION OF TRAUMA, BURN, AND CRITICAL CARE TRAUMA INTENSIVE CARE UNIT (TICU) DAILY PROGRESS NOTE Patient: Amado Tran, 59 year old, male : 1965 Admit Date: 04/30/2024 Room: [place] [id number] Today's Date: 05/01/2024, Length of stay: 1 day(s) Code Status: Full Code Height: 5' 9 Weight: 142.4 kg BMI: 46.37 SURGICAL ICU - STAFF NOTE Patient seen and examined on 05/01/2024 Interval History/Events: Background: Amado Tran is a 59 year old y/o male with PMH of Hyperparathyroidism, Pacemaker, ARASH, CAROL, HLD, GERD, Depression, ESRD (HD MWF, RUE AV Fistula), CKD, HTN, T2DM, Systolic HF, and atrial fibrillation on Eliquis who presented to via [facility] as an inter facility transfer from [facility] s/p Fall. Per reports Pt was at a instant oil change location when he exited his vehicle to assist the senior quality control technician in opening his vehicle door, when he stepped behind his vehicle he accidentally fell through the floor opening aprox 6ft. Pt. Reports falling straight down, negative LOC, negative head strike. Pt was unable to get up under his own strength, EMS was called and Pt was extricated via EMS/FD, immobilized and transported to [facility] ED. Imagine at OSH demonstrated a Grade 1 splenic injury, multiple bilateral ribs fxs, and multiple pelvic fractures. Pt. Received K-centra, as well as PRBC X 2 and Calcium Gluc. [facility] was requested for transport to for orthopedics and trauma evaluations. EN route Pt received an additionalunit of whole blood. On arrival to pt is alert and oriented x 3, w/GCS-15. Pt. On 4LNC, Labile blood pressures and received an additional PRBC X 1, FFP X 1 in ED. Pt was COTE scanned again here at [facility] given the absence of contrast at OSH. Pt. Had CVC and A-line placed in ED. Hospital Course: 04/30: Admitted to TICU s/p fall with B/L rib fxs, Pelvic fx's, and questionable Grade 1 splenic injury s/p fall at [facility] location. 24 Hour Events: Pt arrives to TICU from ED, Pt is awake and alert w/ GCS-15. Pt on 3LNC and HDS. Pt with complaints of Low back pain and Right hip pain. One-Liner: Pt is a 59 year old male with PMH of ESRD on HD MWF, T2DM, HFrEF and atrial fibrillation on eliquis who presented as a CAT 1 trauma as a transfer from [facility] and was admitted to the TICU for multiple traumatic injuries including Grade 1 splenic injury, multiple bilateral rib fractures, multiple pelvic fractures resulting from a 6 foot fall into auto mechanical bay. Course complicated by hypotension requiring multiple blood products including PRBC x3, whole blood x1, FFP x1, as well as levophed gtt. Acute overnight events: Admitted. Started on norepinephrine for hypotension. Initially on HFNC but hypercapnic on ABG, started on BiPAP. Drips: Levophed @ 0.07 mcg/kg/min Pertinent Labs AND Img: WBC 16.2, Hgb 11.7, Plt 96. Na 135, K 5.1, CO2 24, Gap 13, BUN 32, Cr 6.42. ABG @ 0600, pH 7.35 (7.28), PCO2 43.8 (50.7), PO2 56 (103) Mg 2.3, Phos 3.8. Lines, Tubes, Drains: CVC - left femoral, RUE fistula, caceres, left art line 2 x PIV on left Vitals AND I/Os: 24 Hour Vitals Range: Vital sign ranges over the past 24 hours (retrieved 05/01/2024 at 6:30 AM): Tmax (24 hours): 98.7 ???F (37.1 ???C) Pulse Av.4 Min: 75 Max: 113 Systolic (24hrs), Av , Min:77 , Max:166 Diastolic (24hrs), Av, Min:37, Max:153 MAP (mmHg) Av.5 mmHg Min: 69 mmHg Max: 160 mmHg Resp Av.6 Min: 13 Max: 34 SpO2 Av.7 % Min: 79 % Max: 100 % Vital Signs: Patient Vitals for the past 24 hrs: BP Temp Temp src Pulse Resp SpO2 O2 Device O2 Flow Rate (l/min) FiO2 (%) 05/01/24 0620 -- -- -- 79 27 99 % Nasal cannula 5 -- 05/01/24 0600 -- -- -- 75 24 93 % -- -- -- 05/01/24 0500 -- -- -- 77 23 97 % -- -- -- 05/01/24 0400 -- -- -- 77 24 90 % -- -- -- 05/01/24 0357 -- -- -- 78 26 92 % -- -- -- 05/01/24 0307 -- 98.6 ???F (37 ???C) Oral 77 21 100 % -- -- -- 05/01/24 0300 -- -- -- 78 23 99 % -- -- -- 05/01/24 0245 121/54 98.4 ???F (36.9 ???C) Oral 75 21 100 % -- -- -- 05/01/24 0228 101/43 98.4 ???F (36.9 ???C) Oral 76 18 100 % -- -- -- 05/01/24 0200 -- -- -- 78 25 99 % -- -- -- 05/01/24 0130 -- -- -- 78 20 100 % HighFlow NC 40 40 05/01/24 0100 -- -- -- 80 22 100 % -- -- -- 05/01/24 0038 -- -- -- 79 25 94 % -- -- -- 05/01/24 0002 -- -- -- 77 22 98 % -- -- -- 05/01/24 0000 -- -- -- 76 25 97 % -- -- -- 04/30/242356 -- -- -- 77 21 97 % -- -- -- 04/30/242340 -- -- -- 79 26 98 % -- -- -- 04/30/242337 -- -- -- 79 26 97 % -- -- -- 04/30/242334 -- -- -- 80 26 97 % -- -- -- 04/30/242331 -- -- -- 80 27 97 % -- -- -- 04/30/242328 -- -- -- 79 26 97 % -- -- -- 04/30/242325 -- -- -- 82 26 96 % -- -- -- 04/30/242322 -- -- -- 81 24 97 % -- -- -- 04/30/242309 99/41 98.6 ???F (37 ???C) Oral 78 19 98 % -- -- -- 04/30/242307 -- -- -- 79 21 98 % Nasal cannula 3 -- 04/30/242299 -- -- -- 81 26 96 % -- -- -- 04/30/242244 101/43 98.7 ???F (37.1 ???C) Oral 82 20 96 % -- -- -- 04/30/242229 101/50 98.5 ???F (36.9 ???C) Oral 83 15 97 % Nasal cannula 3 -- 04/30/242199 -- -- -- 85 28 96 % -- -- -- 04/30/242151 -- -- -- 84 22 98 % -- -- -- 04/30/242099 -- -- -- 87 34 96 % -- -- -- 04/30/242029 -- 98.5 ???F (36.9 ???C) Oral 88 21 96 % Nasal cannula 3 -- 04/30/242024 -- -- -- 96 19 97 % -- -- -- 04/30/241923 118/50 -- -- 89 (!) 21 95 % -- -- -- 04/30/241922 -- -- -- 90 16 93 % -- -- -- 04/30/241921 -- -- -- 90 (!) 27 93 % -- -- -- 04/30/241919 -- -- -- 90 14 (!) 79 % -- -- -- 04/30/241916 -- -- -- 87 (!) 21 97 % -- -- -- 04/30/241905 -- -- -- 85 13 93 % -- -- -- 04/30/241902 -- -- -- 86 (!) 28 94 % -- -- -- 04/30/241858 -- -- -- 86 20 92 % Nasal cannula 3 -- 04/30/241855 -- -- -- 100 17 91 % -- -- -- 04/30/241850 -- 97.5 ???F (36.4 ???C) -- -- -- -- -- -- -- 04/30/241826 (!) 156/107 -- -- (!) 113 18 94 % -- -- -- 04/30/241823 (!) 166/153 -- -- 94 (!) 30 94 % -- -- -- 04/30/241821 (!) 157/136 -- -- 92 (!) 22 95 % -- -- -- 04/30/241819 (!) 127/103 -- -- -- -- 94 % Nasal cannula 2 -- 04/30/24 1818 (!) 127/103 -- -- 93 (!) 22 93 % -- -- -- 04/30/241748 (!) 79/37 -- -- -- -- -- -- -- -- 04/30/241744 -- -- -- -- -- 96 % -- -- -- 04/30/241743 (!) 88/48 -- -- 90 (!) 24 94 % -- -- -- 04/30/241732 106/71 -- -- -- -- -- -- -- -- 04/30/241729 (!) 77/39 -- -- 78 (!) 26 96 % -- -- -- 04/30/24 1700 96/76 -- -- 82 18 97 % Room air -- -- 04/30/24 1654 109/58 -- -- 84 18 95 % Nasal cannula 2 -- 24 Hour I AND Os: In: 1750 (12.3 mL/kg) [I.V.:1475 (0.4 mL/kg/hr)] Out: 0 (0 mL/kg) Net: 1750 Weight: 142.7 kg Physical Exam: General: Awake and alert, no acute distress. Supine in bed. Neurological: AAOx4, GCS-15. HEENT: PERRL, EOMI, no conjunctival injection or scleral icterus. Cardiac: Regular rate and rhythm, NSR on monitor, easily palpable peripheral pulses w/ brisk cap refill. Pulmonary: Clear to auscultation bilaterally. No wheezing, rhonchi, or rales.On 2LNC. Abdomen: Large, rounded, soft, non-tender, non-distended. Pelvic binder in place. Extremities: RLE in KI and traction, Baseline neuropathy in BLE no worse at this time per Pt, LUE w/ TTP primarily in Left shoulder, MSP 's intact x 4 extremities. Lab Data: 16.2 11.7 / 96 / 35.0 CBC: 05/01/2024: 12:12 AM 135 103 32 / 151 5.1 24 6.42 BMP: 05/01/2024: 12:12 AM BMP: BMP (last 3 years, up to 8 values) 05/01/2024 04/30/2024 12:12 AM 8:38 PM Na 135 136 K 5.1 5.3 Cl 103 102 CO2 24 22 Gap 13 17 Glu 151 268 BUN 32 34 Cr 6.42 6.30 Ca 8.8 8.5 eGFR 9 9 CBC: CBC (last 3 years, up to 8 values) 05/01/2024 04/30/2024 04/30/2024 12:12 AM 8:38 PM 5:22 PM WBC 16.2 16.7 19.2 RBC 3.78 4.08 3.69 Hgb 11.7 12.6 11.5 Hct 35.0 38.6 36.1 MCV 93 95 98 RDW 18.0 18.5 18.1 Plt 96 102 135 PT/PTT/INR: PT/PTT/INR (last 3 years, up to 8 values) 04/30/2024 8:44 PM INR 1.29 Type AND Screen: Type AND Screen (Last result in the past 30 days) 04/30/2024 04/30/2024 5:21 PM 4:30 PM ABO Rh A Positive A Positive Screen Int. -- Negative ABG: Arterial Blood Gases T Site Mode LPM FIO2 pH pCO2 pO2 Sat Base Ex HCO3- A-a 05/01/24 0601 BIPAP 40% 7.350 43.8 56 88.8 -1.5 24 05/01/24 0310 Nasal Canula 40% 7.288 50.7 103 97.7 -2.9 24 05/01/24 0007 Nasal Canula 3 LPM 7.299 50.3 77 94.7 -2.3 24 04/30/24 2037 Nasal Canula 3 LPM 7.297 46.8 70 93.4 -4.0 22 04/30/24 1836 Nasal Canula 2 LPM 7.272 43.9 67 91.2 -6.6 20 BNP: No result for BNP Hepatic Panel: LFT's (last 3 years, up to 8 values) No lab values to display. Glucose: Fingerstick Glucose (last 72 hours) Glucose 05/01/24 0405 195 04/30/24 2128 221 A1c: No results found for: HBA1C TSH: No results found for: TSH Blood Culture: Blood Culture No lab values to display. Urine Culture: Urine Culture (last 1 year) No lab values to display. Respiratory Culture: Respiratory Culture, Misc No lab values to display. Wt Readings from Last 5 Encounters: 04/30/24 (!) 314 lb (142.4 kg) Imaging Results (over previous 24 hours): CTH: No acute intracranial abnormality CTA: No evidence of significant arterial stenosis or cerebrovascular injury. CT C-Spine: No acute cervical spine fracture or traumatic malalignment. CT T/L-Spine: Right L1-L3 TP Fx. Right superior and inferior pubic rami Fx CT C/A/P: B/L Sacral Ala Fx. , Left scapula Fx, Multiple B/L RIb fx w/ pulm contusion. Consults: IP NEPHROLOGY CONSULT Orthopedics Cardiology (Device Interpt) Nephrology PT/OT/SW Assessment and Plan: Diagnosis s/p fall down ~ 6Ft hole: - Right L1-L3 TP Fx - Anterior tension ban disruption of T11 - Right superior/inferior pubic rami Fx w/ extension into acetab - Left scapular Fx w/ intramuscular shoulder hematoma - Bilateral sacral Ala Fx - Right 2,3,4,5,6,7,8 Rib Fx - Left 4,5,6,7,8 Rib Fx - Bilateral pulmonary contusions - Right pleural effusion - Trace hemoperitoneum - Right distal femur fx - Acute blood loss anemia - Hemorrhagic shock - Shock of unknown etiology Associated Hospital Diagnosis: - Hyperkalemia - Hypomagnesemia PMH: - Hyperparathyroidism - ARASH - CAROL - Atrial- Fibrillation - HTN - HLD - Pacer - GERD - ESRD - Depression - CKD - T2DM - CHF Home Medications: ASA 81mg daily Insulin NPH Pioglitazone 30mg daily Sertraline 100mg daily Amiodarone 200mg Sevelamer 1600mg TID Apixaban 5mg daily Atorvastatin 40mg daily Gabapentin 100mg daily Midodrine 10mg daily Omeprazole 40mg daily Incidental Findings: - Cholelithiasis - Indeterminate right adrenal nodule Plan: Neurological: # Acute post traumatic pain # Hx of Depression - Acetaminophen 1G Q8hrs sched - Oxycodone 5/10mg Q4hrs PRN - Topical Lidocaine patch - Dilaudid BT - Robaxin 750mg QID - Start home Gabapentin, Zoloft Cardiovascular: # Hx of HTN, HLD, CHF, Pacer, A-fib - Cardiology consulted for pacer interrogation given need for MRI -> Highly unlikely MRI compatibility given date of implantation -> patient has refused pacer removal in the past, will discuss with cardiology -> 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 - Cont TELE monitoring - Maintain MAP > 65 - cont home Amio, Lipitor, Midodrine - Holding home ASA, Apixaban - last echo 01/05, LVEF 60%, no need for repeat - will obtain EKG, other pre-op clearance studies as indicated - continue Levophed as needed to maintain MAP of 65 Respiratory: # Hx of ARASH - Cont Pulse ox monitoring - Maintain SpO2 >92%, Provide supplemental o2 as needed - 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 - Encourage incentive spirometry once extubated - requiring Bipap, HFNC occasionally - mild hypercapnia, question whether chronic nocturnal issue related to use of home CPAP 2/2 ARASH - continue BIPAP/CPAP use as needed qhs - repeat ABG improved, will trial additional ABG on nasal cannula q12hr GI/Diet: # Hx of GERD - Diet: NPO - NPO except for medications, will advance diet as tolerated - Senna 8.6 mg PO at bedtime/ Miralax daily - Zofran 4 mg IV q6h PRN nausea/vomiting - Start pantoprazole in place of home esomeprazole - Start home Renvela Renal/Electrolytes: # Hx of ESRD - Nephrology consulted aprec recs ->dialysis today - mIVF: none given renal disease - BMP/Mg/P daily - Replace electrolytes as indicated - Maintain Mg >2, K >4 - Measure strict I AND O Infectious Disease: - Afebrile, no leukocytosis - No current indication for antibiotics - Monitor temperature and WBC for signs of infection Hematology: # Hemorrhagic shock - Maintain active T/S - CBC daily - Maintain hemoglobin >7 - TORIBIO On arrival to ICU (Corrected w/ FFP X 1) Endocrine: # Hx of Hyperparathyroidism, T2DM - POCT q6Hrs while NPO - Lispro sliding scale units subcutaneous q6 - Monitor blood glucose levels, adjust regimen above for BGL control between 140-180 - Hold home Insulin NPH, pioglitazone Musculoskeletal: # Pelvic Fx's # Right distal femur fx # Left Scap Fx - Orthopedics Consulted aprec recs -> - Admit to Trauma Surgery/TICU service - Consented for right femur IMN, pelvic posterior fixatipn possible anterior fixation vs. Ex fix - Posted for surgery on 05/01 - Trauma team please document clearance for OR. zTs - Weightbearing: NWB RLE - Antibiotics: none preop, order placed for perioperative antibiotics - DVT ppx: per primary - Pain control per primary - Diet: NPO since midnight for OR - Ortho spine: - Not cleared for OR with Ortho until Tspine uprights complete - C/T/L Precautions until all imaging reviewed and plans finalized - Please obtain pre-operative labs (BMB, CBC, Coags, T AND S, UA, CXR, EKG) - Hold DVT ppx in anticipation of possible surgery - Consideration of operative fixation pending T spine uprigthts. - PT/OT - Progressive mobility guidelines Prophylaxis: - SCDs Bilaterally - Hold chemoprophylaxis in setting of shock and unstable pelvic fracture Follow Up: - PCP: No primary care provider on file. LDA/Restraints: - PIV X 2 - A-line - CVC - Caceres Code Status: - Full Code Disposition: - Cont TICU care and MGMT Royce Reynoso DO Teaching Physician Note: I saw and evaluated the patient. I personally obtained the kirby and critical portions of the history and physical exam. I reviewed the trainee's documentation and discussed the patient with the trainee. I agree with the trainee's medical decision making as documented in the trainee's note unless otherwise noted by me. This note represents our aggregated findings and impressions. Critical care time was provided for 30 minutes. The time involved in the performance of this care was exclusive of separately billable procedures, teaching time and treating other patients. This time was spent personally by the attending physician for the following activities: examination of patient, ordering and/or performing treatments, ordering and reviewing laboratory and radiographic studies, and if applicable, ventilatory management and blood gas interpretation. Critical care was necessary because of an illness or injury that acutely impaired one or more vital organs systems such that there was a high probability of imminent or life threatening deterioration in the patient's condition. The following organ systems are involved: cardiovascular renal/electrolytes STEPHANIE Krishnan MD [facility] Division of Trauma, Critical Care, Yu, and Emergency General Surgery Department of Surgery [facility] [phone] BLOOD GAS, ARTERIAL Collected: 05/01/20 6:01 AM Status: F [facility]: [facility] TYPE CODE TESTS RESULT OUT OF RANGE REFERENCE UNITS LAB MODE MODE BIPAP LAB fio2 FIO2 (CATEGORY) 40% LAB CR PHA CR PHA 7.350 7.350-7.450 LAB pco2 CR PCO2 43.8 35.0-45.0 mm Hg LAB CR PO2 CR PO2 56 Low 80-100 mm Hg LAB CR %O2 SAT CR % O2 SAT 88.8 Low 95.0-99.0 % LAB CR ANAYA CR ANAYA -1.5 -2.0-3.0 mmol/L LAB CPCR HCO3 CR HCO3 24 21-28 mmol/L Performed By: #### CR BGA ## ## [facility] [address] [place] [address], [phone] XR KNEE RIGHT AP+LAT 2 VIEWS Observed: 05/01/2024 4:11 AM Status: F Source: [facility] SYSTEM EXAMINATION: XR KNEE RIGHT A P+LAT 2 VIEWSPRO/RT 05/01/2024 02:25 AM CLINICAL HISTORY: post traction COMPARISON: XR KNEE RIGHT AP+LAT 2 VIEWS 05/01/2024, 12:[address] FEMUR RIGHT W/O CONTRAST 04/30/2024, 6:15 PM. IMPRESSION: Status post placement of traction device in the right proximal anterior tibial metadiaphysis. No acute fracture or dislocation visualized. Vascular calcifications. XR KNEE RIGHT AP+LAT 2 VIEWS MACRO: None GLUCOSE, FINGERSTICK-IN OFFICE Collecte d: 05/01/2024 4:05 AM Status: F Source: [facility] TYPE CODE TESTS RESULT OUT OF RANGE REFERENCE UNITS LAB Mongolian GLUCOSE, POC 195 High 74-109 mg/dL Performed By: #### [id number] ### # NURSING GLUCOSE PROGRAM [address] [place], [address] BLOOD GAS, ARTERIAL Collected: 05/01/20 3:10 AM Status: F Source: [facility] SYSTEM TYPE CODE TESTS RESULT OUT OF RANGE REFERENCE UNITS LAB MODE MODE Nasal Canula LAB fio2 FIO2 (CATEGORY) 40% LAB CR PHA CR PHA 7.288 Low 7.350-7.450 LAB pco2 CR PCO2 50.7 High 35.0-45.0 mm Hg LAB CR PO2 CR PO2 103 High 80-100 mm Hg LAB CR %O2 SAT CR % O2 SAT 97.7 95.0-99.0 % LAB CR ANAYA CR ANAYA -2.9 Low -2.0-3.0 mmol/L LAB CPCR HCO3 CR HCO3 24 21-28 mmol/L Performed By: #### CR BGA ## ## [facility] [address] [place], [id number] XR KNEE RIGHT AP+LAT 2 VIEWS Observed: 05/01/2024 2:51 AM Status: F Source: [facility] SYSTEM EXAMINATION: XR KNEE RIGHT A P+LAT 2 VIEWSPRO/RT 05/01/2024 12:25 AM CLINICAL HISTORY: post traction COMPARISON: CT FEMUR RIGHT W/O CONTRAST 04/30/2024, 6:15 PM. IMPRESSION: Status post traction device placement in the distal right femoral diaphysis, of an acute, displaced, comminuted fracture of the distal femoral diaphysis. Mild posterior lateral displacement of the distal fracture fragment. Improved anatomic alignment. Small joint effusion. Vascular calcifications. XR KNEE RIGHT AP+LAT 2 VIEWS MACRO: None H AND P Observed: 05/01/2024 2:27 AM Status: COMPLETED Source: [facility] Attestation: I have reviewed the patient's History and Physical Examination. I have personally seen and evaluated the patient, repeating kirby portions. There is no significant interval change. Surgery is still indicated. Yes Consent reviewed and signed by patient/family: Yes Operative site verified and marked: Yes Valente Donaldson, PGY-2 Orthopedic Surgery EpicChat preferred FFP Collected: 1:54 AM Status: F Source: [facility] TYPE CODE TESTS RESULT OUT OF RANGE REFERENCE UNITS LAB 99 BB ORDER ITEM Product status info to follow Performed By: #### FFO #### [facility] [address] [place] [address], PLASMA STATUS Collected: 05/01/2024 1:54 AM Status: C Source: [facility] SYSTEM TYPE CODE TESTS RESULT OUT OF RANGE REFERENCE UNITS LAB UT BLOOD PRODUCT UNIT TYPE 0600 Result Comment: A Neg LAB UN BLOOD PRODUCT UNIT INFO [id number] LAB ST BLOOD PRODUCT STATUS Transfused LAB PI BLOOD PRODUCT DESCRIPTION FFP LAB SPC BLOOD PRODUCT CODE [id number] Performed By: #### FFU #### [facility] [address] [place] [address], MAGNESIUM Collected: 12:12 AM Status: F Source: [facility] SYSTEM TYPE CODE TESTS RESULT OUT OF RANGE REFERENCE UNITS LAB mag MG 2.3 1.9-2.7 mg/dL Performed By: #### CH8, MG, PHOS #### [facility] [address] [place] [address], PHOSPHORUS Collected: 12:12 AM Status: F Source: [facility] SYSTEM TYPE CODE TESTS RESULT OUT OF RANGE REFERENCE UNITS LAB PHOS PHOS 3.8 2.5-5.0 mg/dL Performed By: #### CH8, MG, PHOS #### [facility] [address] [place] [address], BASIC METABOLIC PANEL Collected: 2023 12:12 AM Status: F Source: [facility] TYPE CODE TESTS RESULT OUT OF RANGE REFERENCE UNITS LAB GLU GLU 151 High 74-109 mg/dL LAB NA3 NA 135 Low 136-145 mmol/L LAB POT K 5.1 High 3.5-5.0 mmol/L LAB CO2 CO2 24 21-31 mmol/L LAB CHLOR CL 103 98-107 mmol/L LAB BUN BUN 32 High 7-25 mg/dL LAB CREAT CREAT 6.42 High 0.70-1.30 mg/dL LAB CA CA 8.8 8.6-10.3 mg/dL LAB ANION GAP ANION GAP 13 10-20 LAB eGFR ESTIMATED GFR (CKD-EPI) 9 Low >=60 mL/min/1 .73sqm Result Comment: 2020 CKD EPI Equation using Creatinine without Race Comment: Estimated glomerular filtration rate (eGFR) is calculated without a race coefficient. Values should be interpreted in the context of the patient's full clinical presentation. Reference: 1. Christophe C, Sagrario M, Gena DC, et al.. A Unifying Approach for GFR Estimation: Recommendations of the NKF-ASN Task Force on Reassessing the Inclusion of Race in Diagnosing Kidney Disease. [place] Journal of Kidney Diseases 202;79(2):268- 88.e1. 2. N Engl J Med 2021 Vol. 385 Issue 19 Pages 0994-3367 Performed By: #### CH8, [address] #### [facility] [address] [place] [address], [phone] COMPLETE BLOOD COUNT Collected: 024 12:12 AM Status: F Source: [facility] TYPE CODE TESTS RESULT OUT OF RANGE REFERENCE UNITS LAB WBC WBC 16.2 High 4.5-11.5 K/uL LAB RBC RBC 3.78 Low 4.50-5.90 M/uL LAB HGB HGB 11.7 Low 13.9-16.3 g/dL LAB HCT HCT 35.0 Low 41.0-53.0 % LAB MCV MCV 93 80-100 fL LAB MCH MCH 31.0 26.0-34.0 pg LAB MCHC MCHC 33.5 32.0-35.9 g/dL LAB PLT PLT 96 Low 150-400 K/uL LAB RDW RDW-CV 18.0 High 11.5-14.5 % LAB MPV MPV 10.6 7.5-11.2 fL Performed By: #### CBC #### [facility] [address] [place] [address], LACTIC ACID Collected: 12:12 AM Status: F [facility]: [facility] TYPE CODE TESTS RESULT OUT OF RANGE REFERENCE UNITS LAB CR LACT CR LACT 1.9 High 0.5-1.6 mmol/L Performed By: #### LACT #### [facility] [address] [place], [place], CALCIUM, IONIZED Collected: 12:07 AM Status: F Source: [facility] TYPE CODE TESTS RESULT OUT OF RANGE REFERENCE UNITS LAB CR ICA CR ICA 1.25 1.15-1.33 mmol/L Result Comment: This test wa s developed, and its performance characteristics determined by the [facility] of Pathology of [facility]. It has not been cleared or approved by the FDA. This test is used for clinical purposes only. Performed By: #### CR ICA ## ## [facility] [address] [place], [place], BLOOD GAS, ARTERIAL Collected: 05/01/20 12:07 AM Status: F Source: [facility] TYPE CODE TESTS RESULT OUT OF RANGE REFERENCE UNITS LAB MODE MODE Nasal Canula LAB fio2 FIO2 (CATEGORY) 3 LPM LAB CR PHA CR PHA 7.299 Low 7.350-7.450 LAB pco2 CR PCO2 50.3 High 35.0-45.0 mm Hg LAB CR PO2 CR PO2 77 Low 80-100 mm Hg LAB CR %O2 SAT CR % O2 SAT 94.7 Low 95.0-99.0 % LAB CR ANAYA CR ANAYA -2.3 Low -2.0-3.0 mmol/L LAB CPCR HCO3 CR HCO3 24 21-28 mmol/L Performed By: #### CR BGA ## ## [facility] [address] [place], [place], APTEM Collected: 12:06 AM Status: F Source: [facility] SYSTEM Order Comment: APTEM should be compared to EXTEM in order to obtain evidence of fibrinolytic activity. TYPE CODE TESTS RESULT OUT OF RANGE REFERENCE UNITS LAB APTEMCT CLOTTING TIME (CT) 100 High 43-82 Seconds LAB APTEMCFT CLOT FORMATION TIME (CFT) 109 48-127 Seconds LAB APTEMAA A-ANGLE 69 65-80 Degrees LAB [id number] AMPLITUDE AT 10 MIN. (A10) 55 46-67 mm LAB [id number] AMPLITUDE AT 20 MIN. (A20) 62 50-70 mm LAB APTEMMCF MAX. CLOT FIRMNESS (MCF) 64 52-70 mm LAB APTEMML MAXIMUM LYSIS (ML) 2 <15 % Performed By: #### APTEM, IN TEM, fibtem, EXTEM #### [facility] [address] [place] [address], EXTEM Collected: 12:06 AM Status: F Source: [facility] TYPE CODE TESTS RESULT OUT OF RANGE REFERENCE UNITS LAB EXTEMCT CLOTTING TIME (CT) 100 High 43-82 Seconds LAB EXTEMCFT CLOT FORMATION TIME (CFT) 91 48-127 Seconds LAB EXTEMAA A-ANGLE 72 65-80 Degrees LAB [id number] AMPLITUDE AT 10 MIN. (A10) 58 46-67 mm LAB [id number] AMPLITUDE AT 20 MIN. (A20) 65 50-70 mm LAB EXTEMMCF MAX. CLOT FIRMNESS (MCF) 66 52-70 mm LAB EXTEMML MAXIMUM LYSIS (ML) 5 <15 % Performed By: #### APTEM, IN TEM, fibtem, EXTEM #### [facility] [address] [place] [address], FIBTEM Collected: 4 12:06 AM Status: F Source: [facility] SYSTEM TYPE CODE TESTS RESULT OUT OF RANGE REFERENCE UNITS LAB [id number] AMPLITUDE AT 10 MIN. (A10) 14 7-23 mm LAB [id number] AMPLITUDE AT 20 MIN. (A20) 15 8-24 mm LAB ROTEMMCF MAXIMUM CLOT FIRMNESS (MCF) 15 9-25 mm Performed By: #### APTEM, IN TEM, fibtem, EXTEM #### [facility] [address] [place] [address], INTEM Collected: 12:06 AM Status: F Source: [facility] SYSTEM TYPE CODE TESTS RESULT OUT OF RANGE REFERENCE UNITS LAB INTEMCT CLOTTING TIME (CT) 161 122-208 Seconds LAB INTEMCFT CLOT FORMATION TIME (CFT) 93 45-110 Seconds LAB INTEMAA A-ANGLE 72 70-81 Degrees LAB [id number] AMPLITUDE AT 10 MIN. (A10) 51 46-67 mm LAB [id number] AMPLITUDE AT 20 MIN. (A20) 58 51-72 mm LAB INTEMMCF MAX. CLOT FIRMNESS (MCF) 59 51-72 mm LAB INTEMML MAXIMUM LYSIS (ML) 2 <15 % Performed By: #### APTEM, IN TEM, fibtem, EXTEM #### [facility] [address] [place] [address], WHOLE BLOOD PRODUCT Collected: 04/30/20 11:57 PM Status: F Source: [facility] SYSTEM TYPE CODE TESTS RESULT OUT OF RANGE REFERENCE UNITS LAB 99 BB ORDER ITEM Product status info to follow Performed By: #### WBO #### [facility] [address] [place] [address], WHOLE BLOOD STATUS Collected: 04/30/2024 11:[address] atus: C Source: [facility] SYSTEM TYPE CODE TESTS RESULT OUT OF RANGE REFERENCE UNITS LAB PR BLOOD PRODUCT UNIT TYPE 9500 Result Comment: O Neg LAB UN BLOOD PRODUCT UNIT INFO [id number] LAB ST BLOOD PRODUCT STATUS Transfused LAB PI BLOOD PRODUCT DESCRIPTION Whole Blood LAB SPC BLOOD PRODUCT CODE [id number] LAB XM CROSSMATCH INTERPRETATION Incompatible Result Comment: Emergency Tr ansfusion - Transfused Uncrossmatched Performed By: #### WBU #### [facility] [address] [place] [address], FFP Collected: 9:51 PM Status: F Source: [facility] SYSTEM TYPE CODE TESTS RESULT OUT OF RANGE REFERENCE UNITS LAB 99 BB ORDER ITEM Product status info to follow Performed By: #### FFO #### [facility] [address] [place] [address], PLASMA STATUS Collected: 04/30/2024 9:51 PM Status: C Source: [facility] SYSTEM TYPE CODE TESTS RESULT OUT OF RANGE REFERENCE UNITS LAB UT BLOOD PRODUCT UNIT TYPE 0600 Result Comment: A Neg LAB UN BLOOD PRODUCT UNIT INFO [id number] LAB ST BLOOD PRODUCT STATUS Transfused LAB PI BLOOD PRODUCT DESCRIPTION FFP LAB SPC BLOOD PRODUCT CODE [id number] Performed By: #### FFU #### [facility] [address] [place] [address], PROGRESS NOTES Observed: 04/30/2024 9:50 PM Status: COMPLETED Source: [facility] Blood Attestation ATTESTATION OF INFORMED CONSENT FOR BLOOD: The transfusion of blood and/or blood components were discussed with the patient and/or legal sales representative door to door. The risks, benefits and alternatives were reviewed. Questions regarding blood transfusions were answered. The patient /or the patient's legal sales representative door to door agree with the plan for transfusion of blood and/or blood components. Omar Carpenter APRN-MERCHANDISE PRESENTATION MANAGER Division of Trauma, Critical Care, Yu, and Emergency General Surgery Department of Surgery [facility] GLUCOSE, FINGERSTICK-IN OFFICE Collecte d: 04/30/2024 9:28 PM Status: F Source: [facility] TYPE CODE TESTS RESULT OUT OF RANGE REFERENCE UNITS LAB Mongolian GLUCOSE, POC 221 High 74-109 mg/dL Performed By: #### [id number] ### # NURSING GLUCOSE PROGRAM [address] [place] [address], [id number] PROTHROMBIN TIME AND INR Collected: 8:44 PM Status: F [facility]: [facility] TYPE CODE TESTS RESULT OUT OF RANGE REFERENCE UNITS LAB PT PAT PROTIME 14.5 High 9.7-12.9 sec LAB INR INR 1.29 High 0.90-1.10 Performed By: #### PT #### [facility] [address] [place] [address], PROGRESS NOTES Observed: 04/30/2024 8:40 PM Status: COMPLETED Source: [facility] SYSTEM 2034 Pt arrival to unit from ED, pt placed on monitor. Labs sent. 2049 LASHON Carpenter notified of critical lactate value of 3.1. LASHON Carpenter read back critical results. New orders received. COMPLETE BLOOD COUNT Collected: 8:38 PM Status: F Source: [facility] TYPE CODE TESTS RESULT OUT OF RANGE REFERENCE UNITS LAB WBC WBC 16.7 High 4.5-11.5 K/uL LAB RBC RBC 4.08 Low 4.50-5.90 M/uL LAB HGB HGB 12.6 Low 13.9-16.3 g/dL LAB HCT HCT 38.6 Low 41.0-53.0 % LAB MCV MCV 95 80-100 fL LAB MCH MCH 30.8 26.0-34.0 pg LAB MCHC MCHC 32.5 32.0-35.9 g/dL LAB PLT PLT 102 Low 150-400 K/uL LAB RDW RDW-CV 18.5 High 11.5-14.5 % LAB MPV MPV 10.5 7.5-11.2 fL Performed By: #### CBC #### [facility] [address] [place] [address], APTEM Collected: 4 8:38 PM Status: F Source: [facility] Order Comment: APTEM should be compared to EXTEM in order to obtain evidence of fibrinolytic activity. TYPE CODE TESTS RESULT OUT OF RANGE REFERENCE UNITS LAB APTEMCT CLOTTING TIME (CT) 112 High 43-82 Seconds LAB APTEMCFT CLOT FORMATION TIME (CFT) 105 48-127 Seconds LAB APTEMAA A-ANGLE 69 65-80 Degrees LAB [id number] AMPLITUDE AT 10 MIN. (A10) 56 46-67 mm LAB [id number] AMPLITUDE AT 20 MIN. (A20) 64 50-70 mm LAB APTEMMCF MAX. CLOT FIRMNESS (MCF) 66 52-70 mm LAB APTEMML MAXIMUM LYSIS (ML) 1 <15 % Performed By: #### fibtem, E XTEM, INTEM, APTEM #### [facility] [address] [place] [address], EXTEM Collected: 4 8:38 PM Status: F Source: [facility] TYPE CODE TESTS RESULT OUT OF RANGE REFERENCE UNITS LAB EXTEMCT CLOTTING TIME (CT) 96 High 43-82 Seconds LAB EXTEMCFT CLOT FORMATION TIME (CFT) 99 48-127 Seconds LAB EXTEMAA A-ANGLE 70 65-80 Degrees LAB [id number] AMPLITUDE AT 10 MIN. (A10) 56 46-67 mm LAB [id number] AMPLITUDE AT 20 MIN. (A20) 64 50-70 mm LAB EXTEMMCF MAX. CLOT FIRMNESS (MCF) 66 52-70 mm LAB EXTEMML MAXIMUM LYSIS (ML) 1 <15 % Performed By: #### fibtem, E XTEM, INTEM, APTEM #### [facility] [address] [place] [address], INTEM Collected: 8:38 PM Status: F Source: [facility] TYPE CODE TESTS RESULT OUT OF RANGE REFERENCE UNITS LAB INTEMCT CLOTTING TIME (CT) 172 122-208 Seconds LAB INTEMCFT CLOT FORMATION TIME (CFT) 97 45-110 Seconds LAB INTEMAA A-ANGLE 71 70-81 Degrees LAB [id number] AMPLITUDE AT 10 MIN. (A10) 52 46-67 mm LAB [id number] AMPLITUDE AT 20 MIN. (A20) 59 51-72 mm LAB INTEMMCF MAX. CLOT FIRMNESS (MCF) 62 51-72 mm LAB INTEMML MAXIMUM LYSIS (ML) 1 <15 % Performed By: #### fibtem, E XTEM, INTEM, APTEM #### [facility] [address] [place] [address], FIBTEM Collected: 04/30/2024 8:38 PM Status: F Source: [facility] TYPE CODE TESTS RESULT OUT OF RANGE REFERENCE UNITS LAB [id number] AMPLITUDE AT 10 MIN. (A10) 12 7-23 mm Result Comment: This is a co rrected result. Previous result on 04/30/2024 at 2128 EDT was 16 mm LAB [id number] AMPLITUDE AT 20 MIN. (A20) 13 8-24 mm Result Comment: This is a co rrected result. Previous result on 04/30/2024 at 8 EDT was 18 mm LAB ROTEMMCF MAXIMUM CLOT FIRMNESS (MCF) 13 9-25 mm Result Comment: This is a co rrected result. Previous result on 04/30/2024 at 2127 EDT was 19 mm Performed By: #### fibtem, E XTEM, INTEM, APTEM #### [facility] [address] [place] [address], BASIC METABOLIC PANEL Collected: 2023 8:38 PM Status: F Source: [facility] TYPE CODE TESTS RESULT OUT OF RANGE REFERENCE UNITS LAB GLU GLU 268 High 74-109 mg/dL LAB NA3 NA 136 136-145 mmol/L LAB POT K 5.3 High 3.5-5.0 mmol/L LAB CO2 CO2 22 21-31 mmol/L LAB CHLOR CL 102 98-107 mmol/L LAB BUN BUN 34 High 7-25 mg/dL LAB CREAT CREAT 6.30 High 0.70-1.30 mg/dL LAB CA CA 8.5 Low 8.6-10.3 mg/dL LAB ANION GAP ANION GAP 17 10-20 LAB eGFR ESTIMATED GFR (CKD-EPI) 9 Low >=60 mL/min/1 .73sqm Result Comment: 2020 CKD EPI Equation using Creatinine without Race Comment: Estimated glomerular filtration rate (eGFR) is calculated without a race coefficient. Values should be interpreted in the context of the patient's full clinical presentation. Reference: 1. Christohpe C, Sagrario M, Gena YUAN, et al.. A Unifying Approach for GFR Estimation: Recommendations of the NKF-ASN Task Force on Reassessing the Inclusion of Race in Diagnosing Kidney Disease. [place] Journal of Kidney Diseases 2021;79(2):268- 88.e1. 2. N Engl J Med 1 Vol. 385 Issue 19 Pages 0718-5115 Performed By: #### CH8, MG # ### [facility] [address] [place] [address], MAGNESIUM Collected: 4 8:38 PM Status: F Source: [facility] SYSTEM TYPE CODE TESTS RESULT OUT OF RANGE REFERENCE UNITS LAB mag MG 1.6 Low 1.9-2.7 mg/dL Performed By: #### CH8, MG # ### [facility] [address] [place] [address], BLOOD GAS, ARTERIAL Collected: 04/30/20 24 8:37 PM Status: F Source: [facility] SYSTEM TYPE CODE TESTS RESULT OUT OF RANGE REFERENCE UNITS LAB MODE MODE Nasal Canula LAB fio2 FIO2 (CATEGORY) 3 LPM LAB CR PHA CR PHA 7.297 Low 7.350-7.450 LAB pco2 CR PCO2 46.8 High 35.0-45.0 mm Hg LAB CR PO2 CR PO2 70 Low 80-100 mm Hg LAB CR %O2 SAT CR % O2 SAT 93.4 Low 95.0-99.0 % LAB CR ANAYA CR ANAYA -4.0 Low -2.0-3.0 mmol/L LAB CPCR HCO3 CR HCO3 22 21-28 mmol/L Performed By: #### CR BGA, L ACT #### [facility] [address] [place], [place], LACTIC ACID Collected: 8:37 PM Status: F Source: [facility] TYPE CODE TESTS RESULT OUT OF RANGE REFERENCE UNITS LAB CR LACT CR LACT 3.1 High Alert 0.5-1.6 mmol/L Performed By: #### CR BGA, L ACT #### [facility] [address] [place], [place], CT FEMUR RIGHT W/O CONTRAST Observed: 8:14 PM Status: F Source: [facility] EXAMINATION: CT FEMUR RIGHT W/O CONTRASTPRO/RT 04/30/2024 06:09 PM CLINICAL HISTORY: fx COMPARISON: None TECHNIQUE: Thin axial images were obtained without intravenous contrast. Multiplanar reconstructions were obtained from the axial data. INTRA-PROCEDURE MEDS: FINDINGS: Soft tissue: Soft tissue contusion along the medial knee. No focal fluid collection. The visualized muscles are unremarkable. Bone/joint: Acute comminuted fracture of the distal femoral diaphysis, with posteromedial displacement. There is a linear osseous fragment superolateral to the lateral epicondyle. An additional linear cortical fragment is within the distal medullary cavity. Additional acute superior pubic ramus. No dislocation. No significant degenerative change. Small joint effusion. IMPRESSION: Acute displaced comminuted fracture of the distal femoral diaphysis. Acute comminuted fractures of the right superior pubic ramus. See CT T and L- spine CT report. CT FEMUR RIGHT W/O CONTRAST MACRO: None CT PELVIS BONY W/O CONTRAST Observed: 7:54 PM Status: F Source: [facility] EXAMINATION: CT PELVIS BONY W/O CONTRAST 04/30/2024 06:09 PM CLINICAL HISTORY: r/o femoral neck ASSOCIATED DIAGNOSIS: r/o femoral neck ORDERING PROVIDER: VLAENTE DONALDSON TECHNOLOGISTS NOTE: COMPARISON: CT BODY IMAGE IMPORT(SMITH) 04/30/2024, 5:53 PM TECHNIQUE: Thin axial images were obtained without intravenous contrast. Multiplanar reconstructions were obtained from the axial data. INTRA-PROCEDURE MEDS: FINDINGS: Soft tissue: Caceres catheter in place. Extensive atherosclerotic changes in the arteries of the pelvis. Small fat-containing umbilical hernia. Bone/joint: Displaced comminuted fracture of the right anterior aspect of the superior pubic ramus extending into the right acetabulum. There is a there is fracture of the right sacral alar extending into the SI joint. This mild irregularity of the dorsal wing of the iliac suspecting fracture propagation. Disassociation of the right iliosacral joint with widening of the joint space up to 7 mm Partially visualized fractures of the L4 and L5 right transverse processes. IMPRESSION: Pelvic ring disruption involving the right sacral alar, SI joint, iliac wing and the pubic rami. There is a disassociation of the right iliosacral joint with widening of the joint space up to [address] T and L-spine report. CT PELVIS BONY W/O CONTRAST MACRO: None CT CHEST/ABD/PELVIS W/ CONTRAST Observed: 04/30/2024 7:34 PM Status: F Source: [facility] EXAMINATION: CT CHEST/ABD/PE LVIS W/ CONTRAST 04/30/2024 06:09 PM CLINICAL HISTORY: Fall; fall, hypotensive ASSOCIATED DIAGNOSIS: Fall fall, hypotensive ORDERING PROVIDER: JUAN HAMM TECHNOLOGISTS NOTE: COMPARISON: CT BODY IMAGE IMPORT(SMITH) 04/30/2024, 5:53 PM TECHNIQUE: Contiguous axial images were obtained through the chest abdomen and pelvis from the level of the thoracic inlet through the pubic symphysis following administration of intravenous contrast. MPR sagittal and coronal reconstructions were obtained from the axial data. Before infusion of intravenous contrast, radiology personnel investigated the possibility of an allergic history and of any history of reaction to iodinated contrast material. Contrast Protocol: Omnipaque 350 [>or =100lb] 100 ml [<100 lb] 1 ml per 1 lb. INTRA-PROCEDURE MEDS: iohexol (OMNIPAQUE) 350 MG/ML injection 100 mL Route: Intravenous Push iohexol (OMNIPAQUE) 350 MG/ML injection 75 mL Route: Intravenous Push FINDINGS: Cardiovasculature: The heart size is mildly enlarged. The left vertebral artery is originating from the aortic arch, a normal variant. Left subclavian approach cardiac device leads terminate in the right atrium and right ventricle. Moderate calcified plaque along the LAD. Mediastinum/Pericardium: Unremarkable Pleura: Trace right basilar pleural effusion. Central Airways: Patent. Lungs: Interval development of groundglass opacities in the bilateral upper lobes, possibly representing mild pulmonary contusion given patient's history of recent trauma. Patchy consolidative opacities at the lung base, likely compressive atelectasis. Focal area of nodular groundglass opacity (Series 7, Image 74) along the periphery of the right middle lobe, likely contiguous with adjacent pulmonary contusion. Nodules: Punctate juxtapleural nodule in the right apex (Series 7, Image 32), unlikely to be clinically significant. Lymph Nodes: No thoracic lymphadenopathy is evident. Hepatobiliary: Trace fluid tracking along the medial aspect of the right hepatic lobe and extending up to the inferior tip of the liver. Measuring Hounsfield unit is 40 (Series 7, Image 171), concerning for trace hemoperitoneum. No discrete hepatic laceration evident. Cholelithiasis. No intrahepatic biliary ductal dilation. Pancreas: Unremarkable Spleen: Unremarkable Adrenal Glands: 2.8 cm right adrenal nodule, incompletely evaluated in this contrast study, may represent an adenoma. Kidneys, ureters, and bladder: Kidneys are atrophic with diffuse vascular calcifications, otherwise enhancing symmetrically without hydronephrosis or hydroureter. Bladder incompletely distended with Caceres catheter in situ. Gas bubbles within bladder lumen likely related to recent instrumentation. Abdominal and pelvic vasculature: Abdominal aorta normal in caliber with calcified plaque in it. GI tract: Fat density lesion in the peripyloric region (Series 7, Image 135) may represent lipoma versus ingested debris. High density materials in stomach likely related to ingested debris. Small and large bowel normal in caliber. No evidence of bowel obstruction. Small amount of stool burden. Appendix normal in caliber. Peritoneum and retroperitoneum: No intraperitoneal free air or free fluid. Moderate-sized fat-containing midline ventral abdominal wall hernia. Lymph Nodes: No pathologically enlarged abdominal and pelvic lymph nodes. Prostate and seminal vesicles: Suboptimally evaluated by CT. Visualized musculoskeletal structures: * Acute, markedly comminuted and displaced fracture of left scapular body with associated asymmetric enlargement of left shoulder musculature, suggestive of intramuscular hematoma. * Acute nondisplaced fracture of right anterior second and mildly displaced fracture of third, fourth, fifth, sixth, seventh, eighth ribs. Acute minimally displaced fracture of left posterior ninth, nondisplaced fracture of left posterior eighth, mildly displaced fracture of left posterior seventh, sixth, fifth, fourth ribs. * Subtle linear lucency traversing through left sacral alae with anterior cortical step-off (Series 7, Image 206), concerning for nondisplaced fracture. Minimally displaced fracture of right sacral alae at sacroiliac joint. * Acute mildly displaced fracture of right superior pubic ramus with questionable extension into acetabulum. Left superior and inferior pubic rami intact. * Focal areas of subcutaneous contusion in left lower flank, left posterior upper abdominal wall, right lower ventral abdominal wall. IMPRESSION: 1. Acute minimally displaced bilateral sacral alae fracture. Please refer to CT bony pelvis for further details. 2. Acute displaced multiple bilateral rib fractures as described. Acute markedly comminuted fracture of left scapular body with associated intramuscular hematoma. Acute mildly displaced fracture of right superior pubic ramus with questionable extension into acetabulum. 3. Interval development of multifocal areas of groundglass opacities in bilateral upper lobes and nodular groundglass opacity in right middle lobe, probably representing pulmonary contusion given acute rib fractures. Infectious/inflammatory process also in differential diagnosis. No discrete pneumothorax. 4. Trace right-sided pleural effusion. 5. Trace fluid tracking along medial aspect of right hepatic lobe to inferior tip of liver with Hounsfield unit of 40, concerning for trace hemoperitoneum. No discrete liver laceration. 6. Cholelithiasis. Indeterminate right adrenal nodule, can be further evaluated as outpatient. 7. Focal areas of subcutaneous contusion in left lower flank, left posterior upper abdominal wall, right lower ventral abdominal wall. MACRO: None CTA NECK W/ Observed: 04/30/2024 7:27 PM Status: F Source: THE [facility] SYSTEM EXAMINATION: CTA NECK WITH I V CONTRAST 04/30/2024 06:09 PM CLINICAL HISTORY: Fall; fall, hypotensive ASSOCIATED DIAGNOSIS: Fall fall, hypotensive ORDERING PROVIDER: JUAN HAMM TECHNOLOGISTS NOTE: COMPARISON: CT NEURO IMAGE IMPORT(SMITH) 04/30/2024, 5:53 PM TECHNIQUE: CT angiogram of the neck with contrast. Thin isotropic axial imaging was obtained from the aortic arch to the skull base during rapid IV contrast administration for evaluation of the vessels. Multiplanar and 3D maximum intensity projection reformulations were created from the raw CT data which were interpreted in conjunction with the axial images to render the findings listed below. Before infusion of intravenous contrast, radiology personnel investigated the possibility of an allergic history and any history of reaction to iodinated contrast material. Contrast Protocol: Omnipaque 350 [>or =75lb] 75ml [<75 lb] 1 ml per 1 lb. Where applicable, evaluation of ICA stenosis was performed using the site of greatest stenosis compared to the diameter of the ICA distal to the stenosis at the point where the ICA garrison become parallel. INTRA-PROCEDURE MEDS: iohexol (OMNIPAQUE) 350 MG/ML injection 100 mL Route: Intravenous Push iohexol (OMNIPAQUE) 350 MG/ML injection 75 mL Route: Intravenous Push FINDINGS: Aortic Arch: No significant stenosis in the proximal brachiocephalic vessels. Carotid Arteries Right Common Carotid: No significant stenosis. Right Internal Carotid: Atherosclerotic plaque in the proximal ICA without significant stenosis. No dissection. Left Common Carotid: No significant stenosis. Left Internal Carotid: Atherosclerotic plaque in the proximal ICA without significant stenosis. No dissection. Vertebral Arteries: Patent with no stenosis or dissection. Other: Partially visualized comminuted left scapular fracture and bilateral rib fractures. IMPRESSION: No evidence of significant arterial stenosis or cerebrovascular injury. MACRO: None CT T-SPINE/L-SPINE W/O CONTRAST Observed: 04/30/2024 7:17 PM Status: F Source: THE [facility] EXAMINATION: CT T-SPINE/L-SP INE W/O CONTRASTPRO/PRO 04/30/2024 06:09 PM CLINICAL HISTORY: Fall; fall, hypotensive ASSOCIATED DIAGNOSIS: Fall fall, hypotensive ORDERING PROVIDER: JUAN HAMM TECHNOLOGISTS NOTE: COMPARISON: None TECHNIQUE: Thin axial images were obtained through the thoracic and lumbar spine without intravenous contrast. 2D sagittal and coronal reconstructions were obtained from the axial data. FINDINGS: Vertebrae: There is a oblique rigid spine fracture through anterior T11 extending into the T10-T11 disc space. Fracture of the right L1-L3 transverse processes. There is a displaced posterior right third and fourth rib fractures and the multiple left ribs. Comminuted fracture of the left scapula. No aggressive osseous lesions. Moderate multilevel spondylosis without critical spinal canal stenosis. Visible sacrum and pelvis: Fracture of the right sacral alar extending into the right iliac wing, nondisplaced fracture of the right superior and inferior pubic rami. Superior posterior right subpleural hematoma and apical lung contusion. Bilateral anterior apical groundglass opacities, possibly secondary to the contusion as well.. IMPRESSION: Anterior tension band disruption of T11 (T11: B3). Fracture right L1-L3 transverse processes. Pelvic ring disruption through the right sacral alar extend to the right iliac wing with fracture of the right superior and inferior pubic rami. Comminuted fracture of the left scapula. Displaced posterior bilateral rib fractures. MACRO: Anamaria Robins communicated the preliminary change to Dr Riley. at 6:57 PM EDT on 04/30/2024 via telephone. (-PCC-) PROCEDURES Observed: 04/30/2024 7:15 PM Status: COMPLETED Source: THE [facility] SYSTEM PROCEDURE NOTE: ARTERIAL ABRAHAN E PLACEMENT Informed consent, after discussion of the risks, benefits, and alternatives to the procedure, was obtained verbally from the patient prior to procedure. The patient was identified using two patient identifiers: Yes. The H AND P along with required diagnostics are available in [facility]: Yes The correct procedure was verified: Yes Procedural site identified: Yes Presence of required equipment verified prior to starting procedure: Yes Patient allergies identified or reviewed: Yes Site marking done: Yes A timeout to verify the correct patient, procedure, and site was performed immediately prior to the procedure The landmarks for Right femoral artery line placement were identified by ultrasound guidance . Anesthesia was obtained with 3 cc of Lidocaine 1%. The area was prepped and draped in the usual sterile fashion. The vessel was cannulated and a Arterial line with flexible wire was placed using appropriate technique. There was good blood return from the line The line was sutured in place in the usual fashion. Complications: None immediate An appropriate dressing was placed over the site. The patient tolerated the procedure well. Juli Stuart, MDPROCEDURE NOTE: CENTRAL LINE PLACEMENT Informed consent, after discussion of the risks, benefits, and alternatives to the procedure, was obtained verbally from the patient prior to procedure. The patient was identified using two patient identifiers: Yes. The H AND P along with required diagnostics are available in Epic: Yes The correct procedure was verified: Yes Procedural site identified: Yes Presence of required equipment verified prior to starting procedure: Yes Patient allergies identified or reviewed: Yes Site marking done: Yes A timeout to verify the correct patient, procedure, and site was performed immediately prior to the procedure The landmarks for femoral Left sided line placement were identified using ultrasound guidance. The procedure was subsequently performed using ultrasound guidance. Anesthesia was obtained with 3 cc of Lidocaine 1%. The area was prepped and draped in the usual sterile fashion. The vessel was cannulated and a non-tunneled 7.0 Fr triple lumen was placed using the Seldinger technique. There was good blood return from all ports. The ports were appropriately flushed. The line was sutured in place in the usual fashion. An appropriate dressing was placed over the site. The patient tolerated the procedure well. Juli Stuart MD ED PROVIDER NOTES Observed: 04/30/2024 7:05 PM Status: COMPLETED Source: THE [facility] SYSTEM Attestation signed by Tae Thompson MD at 05/05/2024 5:28 PM ATTENDING NOTE I saw and evaluated the patient. I personally obtained the kirby and critical portions of the history and physical exam. I reviewed the resident's documentation and discussed the patient with the resident. I agree with the resident's medical decision making as documented in the resident's note. Tae Thompson MD EMERGENCY DEPARTMENT - VISIT NOTE HISTORY OF PRESENT ILLNESS No chief complaint on file. Territory Supervisor: not needed - patient preferred language is Turkmen. The history is provided by the Patient and EMS. Amado Tran is a 59 year old male hx of Hyperparathyroidism, Pacemaker, ARASH, CAROL, HLD, GERD, Depression, ESRD (HD MWF, RUE AV Fistula), CKD, HTN, T2DM, Systolic HF, and atrial fibrillation on Eliquis presenting to the ED for a CAT 1 after falling into a 6 foot hole. Pt was transferred from [facility] with - headstrike, - LOC, + Eliquis with last dose taken on 04/29. Pt received K Centra at OSH for eliquis reversal. Pt was scanned at the OSH where it was found that the pt could likely have a splenic lac as well as multiple rib and extremity fractures. Pt was given 2u PRBC and then 1u Whole blood en route to our ED. Pt is currently complaining of pain in his chest, abd and lower extremities and right arm. PAST HISTORY Pertinent Past History: No past medical history on file. There is no problem list on file for this patient. Pertinent Social History: PHYSICAL EXAM BP (!) 156/107 Pulse (!) 113 Temp 97.5 ???F (36.4 ???C) Comment: oral Resp 18 SpO2 92% Airway: Intact Breathing: Normal Breath Sounds: Breath sounds equal bilaterally. Circulation: Pulses: Normal - by doppler Skin: Normal skin color, texture, and turgor. No rashes or lesions. Disability: Pupils: PERRL GCS: Best Eyes: 4 Best Verbal: 5 Best Motor: 6 Total: 15 Physical Exam Vitals and nursing note reviewed. Constitutional: General: He is in acute distress. HENT: Head: Normocephalic and atraumatic. Comments: No cephalohematomas noted or any pt and a palpation of the mid face with mid face being staple. No dental malocclusion. No blood in the posterior oropharynx. Pupils are equal and reactive to light 3-2. Ears: Comments: No hemotympanum on the right or left. Cardiovascular: Rate and Rhythm: Normal rate and regular rhythm. Heart sounds: Normal heart sounds. Pulmonary: Breath sounds: Normal breath sounds. Musculoskeletal: Cervical back: No tenderness. Neurological: Mental Status: He is alert. MEDICAL DECISION MAKING and ED COURSE Nursing triage and assessment notes reviewed and incorporated. Review of External (Non- ED) Notes: See ED Course Evaluated by EM attending Tae Thompson Course: ED Course as of 04/30/24 2313 [facility] Apr 30, 2024 1853 COMPLETE BLOOD COUNT W/DIFF (RAPID RESPONSE LABS)(!): WBC 19.2(!) RBC 3.69(!) Hemoglobin 11.5(!) Hematocrit 36.1(!) MCV 98 MCH 31.2 MCHC 31.9(!) Platelet 135(!) RDW-CV% 18.1(!) MPV 10.6 MDW 18 Neutrophils 80.0(!) Lymphocytes 4.0(!) Monocytes 5.0 Basophils 1.0 Bands 9 Metamyelocytes 1(!) Total Cells Counted 100 Anisocytosis Slight Neutrophil # 15.36(!) Lymph Absolute 0.77(!) Monocyte Absolute 0.96 Basophil # 0.19 Metamyelocyte # 0.19(!) Bands # 1.73(!) ANC 17.09 Leukocytosis with mild anemia Pt receiving blood [NG] 1855 CT CHEST/ABD/PELVIS W/ CONTRAST Acute displaced multiple bilateral rib fractures as described. Acute markedly comminuted fracture of left scapular body with associated intramuscular hematoma. Acute mildly displaced fracture of right superior pubic ramus with questionable extension into acetabulum. 3. Interval development of multifocal areas of groundglass opacities in bilateral upper lobes and nodular groundglass opacity in right middle lobe, probably representing pulmonary contusion given acute rib fractures. Infectious/inflammatory process also in differential diagnosis. No discrete pneumothorax. 4. Trace right-sided pleural effusion. 5. Trace fluid tracking along medial aspect of right hepatic lobe to inferior tip of liver with Hounsfield unit of 40, concerning for trace hemoperitoneum. No discrete liver laceration. [NG] 1855 CT HEAD W/O CONTRAST No acute intracranial abnormality. [NG] 1856 CT C-SPINE W/O CONTRAST No acute cervical spine fracture or traumatic malalignment. [NG] 1857 XR CHEST AP OR PA 1 VIEW Left scapular/glenoid fracture and possible left posterior fourth through seventh rib fractures, largely obscured by overlying device. [NG] 1900 CT T-SPINE/L-SPINE W/O CONTRAST Anterior tension band disruption of T11 (T11: B3). Fracture right L1-L3 transverse processes. Pelvic ring disruption through the right sacral alar extend to the right iliac wing with fracture of the right superior and inferior pubic rami. Comminuted fracture of the left scapula. Displaced posterior bilateral rib fractures [NG] 190 pH(!): 7.272 Acidosis with normal CO2 and low O2 on 3L NC [NG] 2306 ED Chart Review: I personally reviewed patients chart and found that pt was seen by 04/07/24by their PCP for a general visit with no change in medications. [NG] ED Course User Index [NG] Miles Riley, Assessment AND Plan: 59-year-old male with a past medical history as presented above is presenting to the ED as a trauma after falling into a 6 ft hole. Patient presented to the emergency department hypotensive and afebrile while receiving a unit of whole blood. Patient was non tachycardic or non tachypneic. Patient was alert and oriented with airway intact and bilateral breath sounds as presented in the physical exam as presented above. Patient was transferred from an outside hospital where as found that there was a concern for a splenic injury with a fast exam done in the ED which was inconclusive. Due to the patient being hypotensive and slightly unstable the patient was immediately taken to the CT scanner and then admitted to the trauma ICU for further evaluation and workup. IMPRESSION AND DISPOSITION Clinical Impression Diagnosis Comment Hemorrhagic shock (HCC) [R57.8] Other fracture of right femur, initial encounter for closed fracture [S72.8X1A] Closed fracture of multiple ribs of left side, initial encounter [S22.42XA] Disposition: Admitted to ICU/Stepdown: TICU. Report called to Dr. Flores, TICU (04/30/24 7130) The patient has received a medical screening examination and within reasonable clinical confidence the patient was stabilized within the capabilities of the emergency department and requires admission / observation. Counseling: Spoke with the patient and discussed today's findings, in addition to providing specific details for the plan of care and expected course. They were given the opportunity to ask questions. This note was created with the assistance of speech recognition software. Miles Riley DO CT C-SPINE W/O CONTRAST Observed: 2023 7:01 PM Status: F Source: THE [facility] EXAMINATION: CT C-SPINE W/O CONTRASTPRO/PRO 04/30/2024 06:09 PM CLINICAL HISTORY: Fall; fall, hypotensive COMPARISON: None TECHNIQUE: Thin isotropic axial images were obtained from the skull base to the upper thoracic spine without intravenous contrast. 2D sagittal and coronal reconstructions were obtained from the axial data. FINDINGS: Vertebrae: No acute fracture or traumatic malalignment. No aggressive osseous lesions. Mild multilevel spondylosis causing at least mild canal narrowing. Partially visualized left scapula fractures. The bilateral styloid processes are elongated. Soft Tissues: No acute abnormality. There are atherosclerotic calcifications at the carotid bifurcations. IMPRESSION: No acute cervical spine fracture or traumatic malalignment. Partially visualized left scapular fractures. MACRO: None PROGRESS NOTES Observed: 04/30/2024 6:58 PM Status: COMPLETED Source: THE [facility] DEPARTMENT OF SURGERY DIVISION OF TRAUMA, BURN, AND CRITICAL CARE TRAUMA INTENSIVE CARE UNIT (TICU) DAILY PROGRESS NOTE Patient: Amado Tran, 59 year old, male : 1965 Admit Date: 04/30/2024 Room: [id number] Today's Date: 04/30/2024, Length of stay: 1 day(s) Code Status: No Order Height: Data Unavailable Weight: no weight BMI: Data Unavailable SURGICAL ICU - STAFF NOTE Patient seen and examined on 04/30/2024 Interval History/Events: Background: Amado Tran is a 59 year old y/o male with PMH of Hyperparathyroidism, Pacemaker, ARASH, CAROL, HLD, GERD, Depression, ESRD (HD MWF, RUE AV Fistula), CKD, HTN, T2DM, Systolic HF, and atrial fibrillation on Eliquis who presented to via [facility] as an inter facility transfer from [facility] s/p Fall. Per reports Pt was at a critical access [facility] location when he exited his vehicle to assist the senior quality control technician in opening his vehicle door, when he stepped behind his vehicle he accidentally fell through the floor opening aprox 6ft. Pt. Reports falling straight down, negative LOC, negative head strike. Pt was unable to get up under his own strength, EMS was called and Pt was extricated via EMS/FD, immobilized and transported to [facility] ED. [facility] at OSH demonstrated a Grade 1 splenic injury, multiple bilateral ribs fxs, and multiple pelvic fractures. Pt. Received K-centra, as well as PRBC X 2 and Calcium Gluc. [facility] was requested for transport to for orthopedics and trauma evaluations. EN route Pt received an additionalunit of whole blood. On arrival to pt is alert and oriented x 3, w/GCS-15. Pt. On 4LNC, Labile blood pressures and received an additional PRBC X 1, FFP X 1 in ED. Pt was COTE scanned again here at [facility] given the absence of contrast at OSH. Pt. Had CVC and A-line placed in ED. Hospital Course: 04/30: Admitted to TICU s/p fall with B/L rib fxs, Pelvic fx's, and questionable Grade 1 splenic injury s/p fall at [facility] location. 24 Hour Events: Pt arrives to TICU from ED, Pt is awake and alert w/ GCS-15. Pt on 3LNC and HDS. Pt with complaints of Low back pain and Right hip pain. Vitals AND I/Os: 24 Hour Vitals Range: Vital sign ranges over the past 24 hours (retrieved 04/30/2024 at 6:58 PM): Tmax (24 hours): 97.5 ???F (36.4 ???C) Pulse Av.8 Min: 78 Max: 113 Systolic (24hrs), Av , Min:77 , Max:166 Diastolic (24hrs), Av, Min:37, Max:153 MAP (mmHg) Av.5 mmHg Min: 69 mmHg Max: 160 mmHg Resp Av.3 Min: 18 Max: 30 SpO2 Av.8 % Min: 93 % Max: 97 % Vital Signs: Patient Vitals for the past 24 hrs: BP Temp Pulse Resp SpO2 O2 Device O2 Flow Rate (l/min) 04/30/24 1851 -- 97.5 ???F (36.4 ???C) -- -- -- -- -- 04/30/24 1827 (!) 156/107 -- (!) 113 18 94 % -- -- 04/30/24 1824 (!) 166/153 -- 94 (!) 30 94 % -- -- 04/30/24 1822 (!) 157/136 -- 92 (!) 22 95 % -- -- 04/30/24 1820 (!) 127/103 -- -- -- 94 % Nasal cannula 2 04/30/24 1818 (!) 127/103 -- 93 (!) 22 93 % -- -- 04/30/24 1749 (!) 79/37 -- -- -- -- -- -- 04/30/24 1745 -- -- -- -- 96 % -- -- 04/30/24 1744 (!) 88/48 -- 90 (!) 24 94 % -- -- 04/30/24 1733 106/71 -- -- -- -- -- -- 04/30/24 1730 (!) 77/39 -- 78 (!) 26 96 % -- -- 04/30/24 1700 96/76 -- 82 18 97 % Room air -- 04/30/24 1654 109/58 -- 84 18 95 % Nasal cannula 2 24 Hour I AND Os: No intake/output data recorded. Physical Exam: General: Awake and alert, no acute distress. Supine in bed. HEENT: PERRL, EOMI, no conjunctival injection or scleral icterus. Cardiac: Regular rate and rhythm, NSR on monitor, easily palpable peripheral pulses w/ brisk cap refill. Pulmonary: Clear to auscultation bilaterally. No wheezing, rhonchi, or rales.On 2LNC. Abdomen: Large, rounded, soft, non-tender, non-distended. Extremities: RLE in KI, Baseline neuropathy in BLE no worse at this time per Pt, LUE w/ TTP primarily in Left shoulder, MSP 's intact x 4 extremities. Neurological: AAOx4, GCS-15. Lab Data: 19.2 11.5 / 135 / 36.1 CBC: 04/30/2024: 5:22 PM N/A N/A N/A / N/A N/A N/A N/A BMP: No results found for requested labs within last 120 days. BMP: BMP (last 3 years, up to 8 values) No lab values to display. CBC: CBC (last 3 years, up to 8 values) 04/30/2024 5:22 PM WBC 19.2 RBC 3.69 Hgb 11.5 Hct 36.1 MCV 98 RDW 18.1 Plt 135 PT/PTT/INR: PT/PTT/INR (last 3 years, up to 8 values) No lab values to display. Type AND Screen: Type AND Screen (Last result in the past 30 days) 04/30/2024 04/30/2024 5:21 PM 4:30 PM ABO Rh A Positive A Positive Screen Int. -- Negative ABG: Arterial Blood Gases None BNP: No result for BNP Hepatic Panel: LFT's (last 3 years, up to 8 values) No lab values to display. Glucose: Fingerstick Glucose (last 72 hours) None A1c: No results found for: HBA1C TSH: No results found for: TSH Blood Culture: Blood Culture No lab values to display. Urine Culture: Urine Culture (last 1 year) No lab values to display. Respiratory Culture: Respiratory Culture, Misc No lab values to display. Wt Readings from Last 5 Encounters: No data found for Wt Imaging Results (over previous 24 hours): CTH: No acute intracranial abnormality CTA: No evidence of significant arterial stenosis or cerebrovascular injury. CT C-Spine: No acute cervical spine fracture or traumatic malalignment. CT T/L-Spine: Right L1-L3 TP Fx. Right superior and inferior pubic rami Fx CT C/A/P: B/L Sacral Ala Fx. , Left scapula Fx, Multiple B/L RIb fx w/ pulm contusion. Consults: IP NEPHROLOGY CONSULT Orthopedics Cardiology (Device Interpt) Nephrology PT/OT/SW Medications: Scheduled Medications: PRN Medications: IV Medications: Assessment and Plan: Diagnosis s/p fall down ~ 6Ft hole: - Right L1-L3 TP Fx - Anterior tension ban disruption of T11 - Right superior/inferior pubic rami Fx w/ extension into acetab - Left scapular Fx w/ intramuscular shoulder hematoma - Bilateral sacral Ala Fx - Right 2,3,4,5,6,7,8 Rib Fx - Left 4,5,6,7,8 Rib Fx - Bilateral pulmonary contusions - Right pleural effusion - Trace hemoperitoneum - Right distal femur fx - Acute blood loss anemia - Hemorrhagic shock Associated Hospital Diagnosis: - Hyperkalemia - Hypomagnesemia PMH: - Hyperparathyroidism - ARASH - CAROL - Atrial- Fibrillation - HTN - HLD - Pacer - GERD - ESRD - Depression - CKD - T2DM - CHF Home Medications: ASA 81mg daily Insulin NPH Pioglitazone 30mg daily Sertraline 100mg daily Amiodarone 200mg Sevelamer 1600mg TID Apixaban 5mg daily Atorvastatin 40mg daily Gabapentin 100mg daily Midodrine 10mg daily Omeprazole 40mg daily Incidental Findings: - Cholelithiasis - Indeterminate right adrenal nodule Plan: Neurological: # Acute post traumatic pain # Hx of Depression - Acetaminophen 1G Q8hrs sched - Oxycodone 5/10mg Q4hrs PRN - Topical Lidocaine patch - Dilaudid BT - Robaxin 750mg QID - Start home Gabapentin, Zoloft Cardiovascular: # Hx of HTN, HLD, CHF, Pacer, A-fib - Cardiology consulted for pacer interrogation given need for MRI -> Highly unlikely MRI compatibility given date of implantation - Cont TELE monitoring - Maintain MAP > 65 - Start home Amio, Lipitor, Midodrine - Holding home ASA, Apixaban Respiratory: # Hx of ARASH - Cont Pulse ox monitoring - Maintain SpO2 >92%, Provide supplemental o2 as needed - 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 - Encourage incentive spirometry once extubated GI/Diet: # Hx of GERD - Diet: NPO - NPO except for medications, will advance diet as tolerated - Senna 8.6 mg PO at bedtime/ Miralax daily - Zofran 4 mg IV q6h PRN nausea/vomiting - Start pantoprazole in place of home esomeprazole - Start home Renvela Renal/Electrolytes: # Hx of ESRD - Nephrology consulted aprec recs -> - mIVF: LR at 75 mL/hr (Cautious given renal disease) - BMP/Mg/P daily - Replace electrolytes as indicated - Maintain Mg >2, K >4 - Measure strict I AND O Infectious Disease: - Afebrile, no leukocytosis - No current indication for antibiotics - Monitor temperature and WBC for signs of infection Hematology: # Hemorrhagic shock - Maintain active T/S - CBC daily - Maintain hemoglobin >7 - TORIBIO On arrival to ICU (Corrected w/ FFP X 1) Endocrine: # Hx of Hyperparathyroidism, T2DM - POCT q6Hrs while NPO - Lispro sliding scale units subcutaneous q6 - Monitor blood glucose levels, adjust regimen above for BGL control between 140-180 - Hold home Insulin NPH, pioglitazone Musculoskeletal: # Pelvic Fx's # Right distal femur fx # Left Scap Fx - Orthopedics Consulted aprec recs -> - PT/OT - Progressive mobility guidelines Prophylaxis: - SCDs Bilaterally - Hold chemoprophylaxis in setting of hemorrhagic shock Follow Up: - PCP: No primary care provider on file. LDA/Restraints: - PIV X 2 - A-line - CVC - Caceres Code Status: - No Order Disposition: - Cont TICU care and MGMT Omar Carpenter CONE SEWER-MERCHANDISE PRESENTATION MANAGER Division of Trauma, Critical Care, Yu, and Emergency General Surgery Department of Surgery [facility] PROGRESS NOTES Observed: 04/30/2024 6:55 PM Status: COMPLETED Source: [facility] Division of Trauma, Surgical Critical Care, EGS Ticket to Roll Note . Provider Called Report To (Enter Provider Name, Service, and Time): Dr. Flores, [facility], who is the RUP. Spoke with Dr. Rodney aBgley. The patient is transferring from ED, room # 14, to TICU, room # [place] [id number] 1. The patient was added to the Trauma Surgery list. Troy Gregg MD RUP = Receiving unit provider RNF = Regular nursing floor TREATMENT PLAN NOTE Observed: 04/30/2024 6:44 PM Status: ACTIVE Source: [facility] Patient was signed out to ni ght team pending completion of imaging and fill dispo. Due to the patients worsening clinical picture a central femoral line and A-line were placed in the trauma bay. Patient has received 2 uRBC at OSH, 1 whole blood with LF, 1 uRBC and 1 FFP in trauma bay, 2L NS. CBC 04/30/2024 5:22 PM WBC 19.2 RBC 3.69 Hgb 11.5 Hct 36.1 MCV 98 RDW 18.1 Plt 135 Patient with PMH of Afib on Eliquis last dose previous evening s/p pacemaker, ESRD on HD MWF w/ R AV fistula, CHF, DM2, HTN, GERD, Depression, ARASH, HLD who presents from OSH after a 6 ft fall into open oil change pit. He received Cts w/o contrast at OSH that shpwed concern for splecin lac possibly frade 1, L scapular fx, multiple rib fracture bilateral, bilateral sacral ala fx, R superior pubic ramus extending into acetabulm fx, L1-L5 R TP fx. No head bleed or C-spine injury. CT C-spine: No acute cervical spine fracture or traumatic malalignment. Partially visualized left scapular fractures. CT Head: No acute intracranial abnormality. CT C/A/P: Acute minimally displaced bilateral sacral alae fracture. Acute displaced multiple bilateral rib fractures as described. Acute markedly comminuted fracture of left scapular body with associated intramuscular hematoma. Acute mildly displaced fracture of right superior pubic ramus with questionable extension into acetabulum. Interval development of multifocal areas of groundglass opacities in bilateral upper lobes and nodular groundglass opacity in right middle lobe, probably representing pulmonary contusion given acute rib fractures. Infectious/inflammatory process also in differential diagnosis. No discrete pneumothorax. Trace right-sided pleural effusion. Trace fluid tracking along medial aspect of right hepatic lobe to inferior tip of liver with Hounsfield unit of 40, concerning for trace hemoperitoneum. No discrete liver laceration. Cholelithiasis. Indeterminate right adrenal nodule, can be further evaluated as outpatient. Focal areas of subcutaneous contusion in left lower flank, left posterior upper abdominal wall, right lower ventral abdominal wall. CT T/L Spine: : Anterior tension band disruption of T11 (T11: B3). Fracture right L1-L3 transverse processes. Pelvic ring disruption through the right sacral alar extend to the right iliac wing with fracture of the right superior and inferior pubic rami.Comminuted fracture of the left scapula.Displaced posterior bilateral rib fractures. CTA Neck: No evidence of significant arterial stenosis or cerebrovascular injury. CT Pelvis: Pelvic ring disruption involving the right sacral alar, SI joint, iliac wing and the pubic rami. There is a disassociation of the right iliosacral joint with widening of the joint space up to [address] T and L-spine report. CT R femur: Acute displaced comminuted fracture of the distal femoral diaphysis. Acute comminuted fractures of the right acetabulum and superior pubic ramus. Injuries: - Right L1-L3 TP Fx -Anterior tension band disruption at T11 - Right superior/inferior pubic rami Fx w/ extension into acetab - Left scapular Fx w/ intramuscular shoulder hematoma - Bilateral sacral Ala Fx - Right 2,3,4,5,6,7,8 Rib Fx - Left 4,5,6,7,8 Rib Fx - Bilateral pulmonary contusions - Right pleural effusion - Trace hemoperitoneum -Acute displaced fracture of distal femoral diaphysis Ortho attempted to place patient in traction in the ED, however due to unavailability of tools at the time they will have to defer and complete this on the floor. Patient will require admission to the TICU for further management and treatment. CT HEAD W/O CONTRAST Observed: 6:40 PM Status: F Source: THE [facility] SYSTEM EXAMINATION: CT HEAD W/O CON TRAST 04/30/2024 06:09 PM CLINICAL HISTORY: Fall; fall, hypotensive ASSOCIATED DIAGNOSIS: Fall fall, hypotensive ORDERING PROVIDER: JUAN HAMM TECHNOLOGISTS NOTE: COMPARISON: CT NEURO IMAGE IMPORT(SMITH) 04/30/2024, 5:53 PM TECHNIQUE: Thin axial imaging of the head was performed without intravenous contrast. FINDINGS: No mass or acute hemorrhage. No evidence of acute infarct. The ventricles are within normal limits for age. The skull, paranasal sinuses and tympanomastoid cavities are normal. IMPRESSION: No acute intracranial abnormality. MACRO: None BLOOD GAS, ARTERIAL Collected: 04/30/20 6:36 PM Status: F Source: [facility] SYSTEM TYPE CODE TESTS RESULT OUT OF RANGE REFERENCE UNITS LAB MODE MODE Nasal Canula LAB fio2 FIO2 (CATEGORY) 2 LPM LAB CR PHA CR PHA 7.272 Low 7.350-7.450 LAB pco2 CR PCO2 43.9 35.0-45.0 mm Hg LAB CR PO2 CR PO2 67 Low 80-100 mm Hg LAB CR %O2 SAT CR % O2 SAT 91.2 Low 95.0-99.0 % LAB CR ANAYA CR ANAYA -6.6 Low -2.0-3.0 mmol/L LAB CPCR HCO3 CR HCO3 20 Low 21-28 mmol/L Performed By: #### CR BGA ## ## [facility] [address] [place], [address] ED NOTES Observed: 04/30/2024 6:10 PM Status: COMPLETED Source: [facility] Pt back to trauma room 14, f rom CT, at this time ED NOTES Observed: 04/30/2024 5:50 PM Status: COMPLETED Source: [facility] MTP initiated at this time ED NOTES Observed: 04/30/2024 5:30 PM Status: COMPLETED Source: [facility] Pt in CT at this time XR CHEST AP OR PA 1 VIEW Observed: 04/30 5:27 PM Status: F Source: THE [facility] EXAMINATION: XR CHEST AP OR PA 1 VIEW 04/30/2024 05:09 PM CLINICAL HISTORY: Trauma ASSOCIATED DIAGNOSIS: Trauma ORDERING PROVIDER: JUAN HAMM TECHNOLOGISTS NOTE: COMPARISON: None FINDINGS: Lines, tubes, and devices: Subclavian approach pacemaker leads project over the right atrium and right ventricle. Overlying life support devices are present. Lungs and pleura: No large focal consolidation. No large pneumothorax on this supine exam. Cardiomediastinal silhouette: The cardiomediastinal silhouette is prominent in size and likely exaggerated by AP technique. Musculoskeletal: Possible left scapular fracture. Bilateral left posterior fourth through seventh rib fractures, largely obscured by overlying device. Linear density overlying the left scapula may have represented summation artifact or additional scapular fracture. IMPRESSION: 1. Left scapular/glenoid fracture and possible left posterior fourth through seventh rib fractures, largely obscured by overlying device. 2. No large focal consolidation or pneumothorax on this supine AP exam. 3. Attention forthcoming CT. MACRO: None CBC WITH DIFFERENTIAL Collected: 04/30/2024 5:22 PM Status: F Source: [facility] SYSTEM TYPE CODE TESTS RESULT OUT OF RANGE REFERENCE UNITS LAB WBC WBC 19.2 High 4.5-11.5 K/uL LAB RBC RBC 3.69 Low 4.50-5.90 M/uL LAB HGB HGB 11.5 Low 13.9-16.3 g/dL LAB HCT HCT 36.1 Low 41.0-53.0 % LAB MCV MCV 98 80-100 fL LAB MCH MCH 31.2 26.0-34.0 pg LAB MCHC MCHC 31.9 Low 32.0-35.9 g/dL LAB PLT PLT 135 Low 150-400 K/uL LAB RDW RDW-CV 18.1 High 11.5-14.5 % LAB MPV MPV 10.6 7.5-11.2 fL LAB MDW MONOCYTE DISTRIBUTION WIDTH 18 <=20 Performed By: #### CBCDSAT # ### [facility] [address] [place], [place], CONFIRMATION ABO/RH Collected: 04/30/20 5:21 PM Status: C [facility] TYPE CODE TESTS RESULT OUT OF RANGE REFERENCE UNITS LAB I ABORH ABO RH TYPE A Positive LAB HXCHK ABORH/AB/TR HISTORY A Positive Performed By: #### ABORH ### # [facility] [address] [place], [place], PROGRESS NOTES Observed: 04/30/2024 5:11 PM Status: COMPLETED Source: [facility] Pt is a 59yo M presenting to ED via [facility] as transfer from [facility] s/p fall 6ft, +Eliquis, hypotensive. Per [facility], pt fell down a hole 6ft deep earlier today. At [facility], pt was diagnosed with multiple L rib fractures, grade 1 splenic laceration, and pelvic fracture. called pt's brother Carlos Tran [phone] to provide update on pt's injuries. Carlos is currently in [place] but is available by phone and can fly back to [place] tomorrow if needed. PLAN: Admit trauma. JERO Mccall, SURFACE ROOM SHOP OPTICIAN, MA ED [facility] Counseling Aide ED TRIAGE NOTES Observed: 04/30/2024 5:09 PM Status: COMPLETED [facility] Medications: 1 U whole blood, calcium gluconate, 2 K centra, 2 units PRBC ED TRIAGE NOTES Observed: 04/30/2024 5:08 PM Status: COMPLETED Source: [facility] 59yo M fal l splenic lac, multiple Left sided fx, pelvic fx w widening H AND P Observed: 04/30/2024 5:05 PM Status: COMPLETED Source: THE [facility] Department of Surgery Division of Trauma Surgery, Acute Care Surgery, Critical Care, and Yu TRAUMA SURGERY HISTORY AND PHYSICAL Amado Tran [id number] BASIC INJURY INFORMATION: Level of activation: Category 1 Trauma Mode of transport: [employer] Mechanism of injury: Fall from ground level Complicating features: Not applicable Protective measures: Not applicable Date of Injury: 04/30/2024 Time of Injury: ~1000 Patient origin: Transfer from outside facility HISTORY OF PRESENT INJURY: Amado Tran is a 59 year old male brought in by [facility] following a transfer from [facility] after a fall and stepping into a 6 foot hole. (-)Head Strike, (-)LOC, (+)Eliquis last dose taken 1016 PM.. Pt received Kcentra at OSH for eliquis reversal. Pt is in the whole blood study with [facility] and received 2u PRBC at OSH and 1 whole blood with [facility]. Loss of consciousness: No Initial interventions: Pelvic binder and Transfusion Hemodynamic status in ED: Hypotensive (SBP <90 mmHg) PRIMARY SURVEY: Airway: Intact Breathing: Normal Breath Sounds: Breath sounds equal bilaterally. Circulation: Pulses: Normal - by doppler Skin: Normal skin color, texture, and turgor. No rashes or lesions. Disability: Pupils: PERRL GCS: Best Eyes: 4 Best Verbal: 5 Best Motor: 6 Total: 15 SECONDARY SURVEY: BP 96/76 Pulse 82 Resp 18 SpO2 97% PAST MEDICAL HISTORY: Hyperarathyroidism, Hx pacemaker, ARASH, Iron deficiency anemia, HLD, GERD, Depression, ESRD on dialysis (MWF), CKD, HTN, DM2, chronic systolic CHF, AV fistula R arm, Atrial Fibrillation PAST SURGICAL HISTORY: No past surgical history on file. PRE-ADMISSION MEDICATIONS: (Not in a hospital admission) Anti-platelet use: No Anti-coagulant use: Yes: Eliquis (name) and 1016 PM (date of last use) ALLERGIES: Not on File SOCIAL HISTORY: Social Determinants of Health Financial Resource Strain: Low Risk (04/01/2024) Received from [facility] Overall Financial Resource Strain (CARDIA) Difficulty of Paying Living Expenses: Not very hard Food Insecurity: No Food Insecurity (04/01/2024) Received from [facility] Hunger Vital Sign Worried About Running Out of Food in the Last Year: Never true Ran Out of Food in the Last Year: Never true Transportation Needs: No Transportation Needs (04/01/2024) Received from [facility] PRAPARE - Transportation Lack of Transportation (Medical): No Lack of Transportation (Non-Medical): No Physical Activity: Insufficiently Active (04/01/2024) Received from [facility] Exercise Vital Sign Days of Exercise per Week: 1 day Minutes of Exercise per Session: 10 min Stress: Stress Concern Present (04/01/2024) Received from [facility] [employer] - Occupational Stress Questionnaire Feeling of Stress : To some extent Social Connections: Moderately Isolated (04/01/2024) Received from [facility] Social Connection and Isolation Panel [NHANES] Frequency of Communication with Friends and Family: More than three times a week Frequency of Social Gatherings with Friends and Family: More than three times a week Attends Cheondoism Services: Never Active Member of Clubs or Organizations: Yes Attends Club or Organization Meetings: More than 4 times per year Marital Status: Never Received from [facility] Safety AND Environment Living status: Home Primary language: Turkmen Functional status: Independent Impairments: None Assistive Devices Used: None Home meds: ASA 81mg daily Insulin NPH Pioglitazone 30mg daily Sertraline 100mg daily Amiodarone 200mg Sevelamer 1600mg TID Apixaban 5mg daily Atorvastatin 40mg daily Gabapentin 100mg daily Midodrine 10mg daily Omeprazole 40mg daily FAMILY HISTORY: No family history on file. BASIC LABS Results for orders placed or performed during the hospital encounter of 04/30/24 RED BLOOD CELL COMPONENT Collection Time: 04/30/24 4:50 PM Result Value Ref Range BB Order Item Product status info to follow FFP Collection Time: 04/30/24 4:50 PM Result Value Ref Range BB Order Item Product status info to follow PLASMA STATUS Collection Time: 04/30/24 4:50 PM Result Value Ref Range Blood Product Unit Type 8400 Blood Product Unit Info [id number] Status Issued Blood Product Description FFP Blood Product Code [id number] PLASMA STATUS Collection Time: 04/30/24 4:50 PM Result Value Ref Range Blood Product Unit Type 2800 Blood Product Unit Info [id number] Status Issued Blood Product Description FFP Blood Product Code [id number] RED BLOOD CELL UNIT STATUS Collection Time: 04/30/24 4:50 PM Result Value Ref Range Blood Product Unit Type 5100 Blood Product Unit Info [id number] Status Issued Blood Product Description Red Blood Cells Blood Product Code [id number] RED BLOOD CELL UNIT STATUS Collection Time: 04/30/24 4:50 PM Result Value Ref Range Blood Product Unit Type 5100 Blood Product Unit Info [id number] Status Issued Blood Product Description Red Blood Cells Blood Product Code [id number] RED BLOOD CELL UNIT STATUS Collection Time: 04/30/24 4:50 PM Result Value Ref Range Blood Product Unit Type 5100 Blood Product Unit Info [id number] Status Issued Blood Product Description Red Blood Cells Blood Product Code [id number] RED BLOOD CELL UNIT STATUS Collection Time: 04/30/24 4:50 PM Result Value Ref Range Blood Product Unit Type 5100 Blood Product Unit Info [id number] Status Issued Blood Product Description Red Blood Cells Blood Product Code [id number] RED BLOOD CELL COMPONENT Collection Time: 04/30/24 5:01 PM Result Value Ref Range BB Order Item Product status info to follow FFP Collection Time: 04/30/24 5:01 PM Result Value Ref Range BB Order Item Product status info to follow RADIOLOGY: CXR: 1. Left scapular/glenoid fracture and possible left posterior fourth through seventh rib fractures, largely obscured by overlying device. 2. No large focal consolidation or pneumothorax on this supine AP exam. 3. Attention forthcoming CT. CT HEAD: Findings: pending CT C-SPINE: Findings: pending CT C/A/P: Findings: pending CT T/L SPINE: Findings: pending CTA Neck: Findings: pending CT femur: Additional plain films: XR pelvis: XR R knee: XR R hip: ASSESSMENT: Amado Tran is a 59 year old male brought in by [facility] following a transfer from [facility] after a fall and stepping into a 6 foot hole. (-)Head Strike, (-)LOC, (+)Eliquis last dose taken 1016 PM.. Pt received Kcentra at OSH for eliquis reversal. Pt is in the whole blood study with [facility] and received 2u PRBC at OSH and 1 whole blood with [facility]. Pt went into CT scan right away due to outside imaging being performed without contrast and worsening clinical picture. FAST performed but difficult to interpret due to body habitus. INJURIES: Pelvic and L femur fracture, rest of injuries are pending with imaging not completed. PLAN: Ortho is consulted. Plan is pending CT scan completion and secondary survey needs to be completed as well. Patient discussed with Attending Trauma Surgeon, Dr. Giron. Juan Hamm PA-C RED BLOOD CELL COMPONENT Collected: 5:01 PM Status: F Source: [facility] SYSTEM TYPE CODE TESTS RESULT OUT OF RANGE REFERENCE UNITS LAB 99 BB ORDER ITEM Product status info to follow Performed By: #### RBO #### [facility] [address] [place] [address], PLASMA STATUS Collected: 04/30/2024 5:01 PM Status: C Source: [facility] SYSTEM TYPE CODE TESTS RESULT OUT OF RANGE REFERENCE UNITS LAB UT BLOOD PRODUCT UNIT TYPE 6200 Result Comment: A Pos LAB UN BLOOD PRODUCT UNIT INFO [id number] LAB ST BLOOD PRODUCT STATUS Returned to d Bnk LAB PI BLOOD PRODUCT DESCRIPTION FFP LAB SPC BLOOD PRODUCT CODE [id number] Performed By: #### FFU #### [facility] [address] [place] [address], PLASMA STATUS Collected: 04/30/2024 5:01 PM Status: C Source: [facility] SYSTEM TYPE CODE TESTS RESULT OUT OF RANGE REFERENCE UNITS LAB UT BLOOD PRODUCT UNIT TYPE 6200 Result Comment: A Pos LAB UN BLOOD PRODUCT UNIT INFO [id number] LAB ST BLOOD PRODUCT STATUS Returned to [facility] Bnk LAB PI BLOOD PRODUCT DESCRIPTION FFP LAB SPC BLOOD PRODUCT CODE [id number] Performed By: #### FFU #### [facility] [address] [place] [address], PLASMA STATUS Collected: 04/30/2024 5:01 PM Status: C Source: [facility] SYSTEM TYPE CODE TESTS RESULT OUT OF RANGE REFERENCE UNITS LAB UT BLOOD PRODUCT UNIT TYPE 6200 Result Comment: A Pos LAB UN BLOOD PRODUCT UNIT INFO [id number] LAB ST BLOOD PRODUCT STATUS Returned to d Bnk LAB PI BLOOD PRODUCT DESCRIPTION FFP LAB SPC BLOOD PRODUCT CODE [id number] Performed By: #### FFU #### [facility] [address] [place] [address], RED BLOOD CELL UNIT STATUS Collected: 04/30/2024 5:01 PM Status: C Source: THE [facility] TYPE CODE TESTS RESULT OUT OF RANGE REFERENCE UNITS LAB UT BLOOD PRODUCT UNIT TYPE 5100 Result Comment: O Pos LAB UN BLOOD PRODUCT UNIT INFO [id number] LAB ST BLOOD PRODUCT STATUS Returned to d Bnk LAB PI BLOOD PRODUCT DESCRIPTION Red Blood Cells LAB SPC BLOOD PRODUCT CODE [id number] Performed By: #### RBU #### [facility] [address] [place] [address], RED BLOOD CELL UNIT STATUS Collected: 04/30/2024 5:01 PM Status: C [facility] TYPE CODE TESTS RESULT OUT OF RANGE REFERENCE UNITS LAB UT BLOOD PRODUCT UNIT TYPE 5100 Result Comment: O Pos LAB UN BLOOD PRODUCT UNIT INFO [id number] LAB ST BLOOD PRODUCT STATUS Returned to d Bnk LAB PI BLOOD PRODUCT DESCRIPTION Red Blood Cells LAB SPC BLOOD PRODUCT CODE [id number] Performed By: #### RBU #### [facility] [address] [place] [address], PLASMA STATUS Collected: 04/30/2024 5:01 PM Status: C [facility] TYPE CODE TESTS RESULT OUT OF RANGE REFERENCE UNITS LAB PR BLOOD PRODUCT UNIT TYPE 6200 Result Comment: A Pos LAB UN BLOOD PRODUCT UNIT INFO [id number] LAB ST BLOOD PRODUCT STATUS Returned to d Bnk LAB PI BLOOD PRODUCT DESCRIPTION FFP LAB SPC BLOOD PRODUCT CODE [id number] Performed By: #### FFU #### [facility] [address] [place] [address], RED BLOOD CELL UNIT STATUS Collected: 04/30/2024 5:01 PM Status: C [facility] TYPE CODE TESTS RESULT OUT OF RANGE REFERENCE UNITS LAB UT BLOOD PRODUCT UNIT TYPE 5100 Result Comment: O Pos LAB UN BLOOD PRODUCT UNIT INFO [id number] LAB ST BLOOD PRODUCT STATUS Returned to d Bnk LAB PI BLOOD PRODUCT DESCRIPTION Red Blood Cells LAB SPC BLOOD PRODUCT CODE [id number] Performed By: #### RBU #### [facility] [address] [place] [address], RED BLOOD CELL UNIT STATUS Collected: 04/30/2024 5:01 PM Status: C Source: [facility] TYPE CODE TESTS RESULT OUT OF RANGE REFERENCE UNITS LAB UT BLOOD PRODUCT UNIT TYPE 5100 Result Comment: O Pos LAB UN BLOOD PRODUCT UNIT INFO [id number] LAB ST BLOOD PRODUCT STATUS Returned to [facility] Bnk LAB PI BLOOD PRODUCT DESCRIPTION Red Blood Cells LAB SPC BLOOD PRODUCT CODE [id number] Performed By: #### RBU #### [facility] [address] [place] [address], RED BLOOD CELL UNIT STATUS Collected: 04/30/2024 5:01 PM Status: C Source: [facility] TYPE CODE TESTS RESULT OUT OF RANGE REFERENCE UNITS LAB UT BLOOD PRODUCT UNIT TYPE 5100 Result Comment: O Pos LAB UN BLOOD PRODUCT UNIT INFO [id number] LAB ST BLOOD PRODUCT STATUS Returned to [facility] Bnk LAB PI BLOOD PRODUCT DESCRIPTION Red Blood Cells LAB SPC BLOOD PRODUCT CODE [id number] Performed By: #### RBU #### [facility] [address] [place] [address], RED BLOOD CELL UNIT STATUS Collected: 04/30/2024 5:01 PM Status: C Source: [facility] TYPE CODE TESTS RESULT OUT OF RANGE REFERENCE UNITS LAB UT BLOOD PRODUCT UNIT TYPE 5100 Result Comment: O Pos LAB UN BLOOD PRODUCT UNIT INFO [id number] LAB ST BLOOD PRODUCT STATUS Returned to [facility] Bnk LAB PI BLOOD PRODUCT DESCRIPTION Red Blood Cells LAB SPC BLOOD PRODUCT CODE [id number] Performed By: #### RBU #### [facility] [address] [place] [address], FFP Collected: 5:01 PM Status: F Source: [facility] TYPE CODE TESTS RESULT OUT OF RANGE REFERENCE UNITS LAB 99 BB ORDER ITEM Product status info to follow Performed By: #### FFO #### [facility] [address] [place] [address], PLASMA STATUS Collected: 04/30/2024 4:50 PM Status: C Source: [facility] TYPE CODE TESTS RESULT OUT OF RANGE REFERENCE UNITS LAB UT BLOOD PRODUCT UNIT TYPE 8400 Result Comment: AB Pos LAB UN BLOOD PRODUCT UNIT INFO [id number] LAB ST BLOOD PRODUCT STATUS Transfused LAB PI BLOOD PRODUCT DESCRIPTION FFP LAB SPC BLOOD PRODUCT CODE [id number] Performed By: #### FFU #### [facility] [address] [place] [address], RED BLOOD CELL COMPONENT Collected: 4:50 PM Status: F Source: [facility] TYPE CODE TESTS RESULT OUT OF RANGE REFERENCE UNITS LAB 99 BB ORDER ITEM Product status info to follow Performed By: #### RBO #### [facility] [address] [place] [address], RED BLOOD CELL UNIT STATUS Collected: 04/30/2024 4:50 PM Status: C Source: [facility] TYPE CODE TESTS RESULT OUT OF RANGE REFERENCE UNITS LAB UT BLOOD PRODUCT UNIT TYPE 5100 Result Comment: O Pos LAB UN BLOOD PRODUCT UNIT INFO [id number] LAB ST BLOOD PRODUCT STATUS Transfused LAB PI BLOOD PRODUCT DESCRIPTION Red Blood Cells LAB SPC BLOOD PRODUCT CODE [id number] LAB XM CROSSMATCH INTERPRETATION Compatible (E) Result Comment: Emergency Tr ansfusion - Transfused Uncrossmatched Performed By: #### RBU #### [facility] [address] [place] [address], RED BLOOD CELL UNIT STATUS Collected: 04/30/2024 4:50 PM Status: C Source: [facility] [employer] SYSTEM TYPE CODE TESTS RESULT OUT OF RANGE REFERENCE UNITS LAB UT BLOOD PRODUCT UNIT TYPE 5100 Result Comment: O Pos LAB UN BLOOD PRODUCT UNIT INFO [id number] LAB ST BLOOD PRODUCT STATUS Returned to Bld Bnk LAB PI BLOOD PRODUCT DESCRIPTION Red Blood Cells LAB SPC BLOOD PRODUCT CODE [id number] LAB XM CROSSMATCH INTERPRETATION Compatible (E) Result Comment: Emergency Tr ansfusion - Transfused Uncrossmatched Performed By: #### RBU #### [facility] [address] [place] [address], PLASMA STATUS Collected: 04/30/2024 4:50 PM Status: C Source: [facility] [employer] [facility] SYSTEM TYPE CODE TESTS RESULT OUT OF RANGE REFERENCE UNITS LAB UT BLOOD PRODUCT UNIT TYPE 2800 Result Comment: AB Neg LAB UN BLOOD PRODUCT UNIT INFO [id number] LAB ST BLOOD PRODUCT STATUS Returned to Bld Bnk LAB PI BLOOD PRODUCT DESCRIPTION FFP LAB SPC BLOOD PRODUCT CODE [id number] Performed By: #### FFU #### [facility] [address] [place] [address], FFP Collected: 4:50 PM Status: F Source: [facility] [employer] [facility] SYSTEM TYPE CODE TESTS RESULT OUT OF RANGE REFERENCE UNITS LAB 99 BB ORDER ITEM Product status info to follow Performed By: #### FFO #### [facility] [address] [place] [address], RED BLOOD CELL UNIT STATUS Collected: 04/30/2024 4:50 PM Status: C Source: [facility] SYSTEM TYPE CODE TESTS RESULT OUT OF RANGE REFERENCE UNITS LAB UT BLOOD PRODUCT UNIT TYPE 5100 Result Comment: O Pos LAB UN BLOOD PRODUCT UNIT INFO [id number] LAB ST BLOOD PRODUCT STATUS Transfused LAB PI BLOOD PRODUCT DESCRIPTION Red Blood Cells LAB SPC BLOOD PRODUCT CODE [id number] LAB XM CROSSMATCH INTERPRETATION Compatible (E) Result Comment: Emergency Tr ansfusion - Transfused Uncrossmatched Performed By: #### RBU #### [facility] [address] [place] [address], RED BLOOD CELL UNIT STATUS Collected: 04/30/2024 4:50 PM Status: C Source: [facility] SYSTEM TYPE CODE TESTS RESULT OUT OF RANGE REFERENCE UNITS LAB UT BLOOD PRODUCT UNIT TYPE 5100 Result Comment: O Pos LAB UN BLOOD PRODUCT UNIT INFO [id number] LAB ST BLOOD PRODUCT STATUS Returned to Bld Bnk LAB PI BLOOD PRODUCT DESCRIPTION Red Blood Cells LAB SPC BLOOD PRODUCT CODE [id number] LAB XM CROSSMATCH INTERPRETATION Compatible (E) Result Comment: Emergency Tr ansfusion - Transfused Uncrossmatched Performed By: #### RBU #### [facility] [address] [place] [address], TYPE AND SCREEN Collected: 4:30 PM Status: F Source: [facility] TYPE CODE TESTS RESULT OUT OF RANGE REFERENCE UNITS LAB I ABORH ABO RH TYPE A Positive Result Comment: MLF used 1 w hole blood product uncrossmatchedtype O Neg. LAB ABSC INT ABSC INT Negative LAB HXCHK ABORH/AB/TR HISTORY No Previous Results Performed By: #### TS #### [facility] [address] [place] [address], XR FEMUR RT 2V* Observed: 04/30/2024 3:23 PM Status: COMPLETED Source: [facility] Main [address] [address] XRay Report Signed Patient: Amado Tran MR#: [id number] 437 : 1965 Acct:[id number] Age/Sex: 59 / M ADM Date: 04/30/24 Loc: ER Room: Type: [facility] ER Attending Dr: Copies to: Darren Ernandez PA-C Ordering Provider: Darren Ernandez PA-C Date of Service: 04/30/24 XR/XR femur RT 2V*: FALL TRAUMA ([id number]) XR/XR shoulder LT min 2V*: trauma Right femur 2 views with one view pelvis, left shoulder 2 views. Reason for exam: Fall. Painful left shoulder and right femur. Comparison: CT chest, abdomen and pelvis performed earlier today. Findings: Right femur: There appears be a fracture involving the right superior pubic ramus confirmed on the CT study. Inferior pubic ramus appears intact. Mild degenerative changes of the hips. The patient's known right sacral alar fracture is less conspicuous when compared to a CT study but is present. This appears to be superimposed on degenerative changes of the SI joints. A comminuted fracture seen involving the distal aspect of the right femur with approximately 4 cm of displacement of the fracture fragments. The joint demonstrates degenerative change and appears grossly intact. No knee joint effusion. Left shoulder: Left scapular body fracture confirmed on the CT study. Degenerative changes involving the AC joint. Glenohumeral joint appears intact. XR/XR femur RT 2V* Impression: Comminuted fracture involving the distal right femur. Right sacral alar fracture and right superior pubic ramus fracture as seen by CT. Left scapular body fracture best seen by CT. Impression dictated by: Esau Tarango Jr., D.O.04/30/2024 3:28 PM Dictation Location: [facility] Transcribed By: [facility] 04/30/24 1528 Dictated By: Esau Tarango Jr, DO 04/30/24 1523 Signed By: <Electronically signed by Esau Tarango Jr, DO in OV> 04/30/24 1528 XR PELVIS 1-2V Observed: 04/30/2024 3:06 PM Status: COMPLETED Source: [facility] [place] [facility] Main [place] [id number] XRay Report Signed Patient: Amado Trna MR#: [id number] 437 : 1965 Acct:[id number] Age/Sex: 59 / M ADM Date: 04/30/24 Loc: ER Room: Type: [facility] ER Attending Dr: Copies to: Darren Ernandez PA-C Ordering Provider: Darren Ernandez PA-C Date of Service: 04/30/24 XR/XR pelvis 1-2V: FALL XR pelvis 1-2V 04/30/2024 2:04 PM SIGNS AND SYMPTOMS: FALL PROTOCOL: Frontal radiograph the pelvis COMPARISON: None FINDINGS: There is a mildly comminuted fracture of the medial and anterior aspect of the acetabulum of the right hip extending into the right superior pubic ramus. There is mild widening of the right sacroiliac joint. There is a fracture visible traversing the sacrum on CT from the same date which is not well visualized on radiographs. Degenerative changes are noted hips and lower lumbar spine. XR/XR pelvis 1-2V IMPRESSION: There is a mildly comminuted fracture of the medial and anterior aspect of the acetabulum of the right hip extending into the right superior pubic ramus. There is mild widening of the right sacroiliac joint. There is a fracture visible traversing the sacrum on CT from the same date which is not well visualized on radiographs. Impression dictated by: Tyler Mobley M.D.04/30/2024 3:07 PM Dictation Location: [place] [address] Transcribed By: [facility] 04/30/24 1507 Dictated By: Tyler Mobley II, MD 04/30/24 1506 Signed By: <Electronically signed by Tyler Mobley II, MD in OV> 04/30/[address] ABDOMEN PELVIS WO CON Observed: 04/30 2:51 PM Status: COMPLETED Source: [facility] [facility] Main [address] [address] [address] Scan Report Signed Patient: Amado Tran MR#: [id number] 437 : 1965 Acct:[id number] Age/Sex: 59 / M ADM Date: 04/30/24 Loc: ER Room: Type: [facility] ER Attending Dr: Copies to: Darren Ernandez PA-C Ordering Provider: Darren Ernandez PA-C Date of Service: 04/30/24 CT/CT abdomen pelvis wo con: trauma ([id number]) CT/CT chest wo con: trauma CT chest wo con, CT abdomen pelvis wo con 04/30/2024 2:07 PM SIGN AND SYMPTOMS: Fall TECHNIQUE: Multidetector CT axial slices of the chest, abdomen and pelvis were obtainedwith IV contrast. Multiplanar reformats were performed and viewed on a separate workstation and reviewed to further define anatomy and possible pathology. CT was performed with one or more of the following dose reduction techniques: Automated exposure control, adjustment of the mA and/or kV according to patient size, or use of iterative reconstruction technique. COMPARISON: 09/02/2019. FINDINGS: Lower neck: Thyroid gland within normal limits, no supraclavicle adenopathy. Vessels: Atherosclerotic changes are noted in the coronary arteries. Mediastinum and Miroslava: Calcified lymph nodes are noted in the left hilum. Heart: Normal size. No pericardial effusion. Airways: Within normal limits Lungs: Subtle pleural-based airspace opacities are noted anteriorly along the right middle lobe. There is mild dependent atelectasis on the right. Pleura: Within normal limits. Chest Wall: Within normal limits. Abdomen: Liver: within normal limits. Bile Ducts: Normal caliber. Gallbladder: Stones layer dependently in the gallbladder. Pancreas: within normal limits. Spleen: There is a small amount of fluid adjacent to the inferior pole of the spleen with a subtle focus of hypoattenuation measuring approximately 8 mm at the inferior pole possibly representing a grade 1 splenic laceration. Adrenals: There is a 17 mm nodule within the right adrenal gland. This is new when compared to the prior exam. Kidneys: within normal limits. Pelvis: Reproductive Organs: No pelvic masses. Ureters: within normal limits. Bladder: within normal limits. Bowel: Normal caliber. Mesenteric Lymph Nodes: No enlarged mesenteric lymph nodes. Peritoneum: No ascites or free air, no fluid collection. Vessels: Atherosclerotic changes are noted in the abdominal aorta and its branches.. Retroperitoneum: within normal limits. Abdominal Wall: within normal limits. Bones: There are minimally displaced fractures of the posterior first through 12th ribs. There are mildly displaced fractures of the posterior aspect of the left fourth through ninth ribs. There is a transversely oriented fracture of the left scapular wing which is comminuted. There is widening of the right sacroiliac joint with a displaced fracture along the subarticular region of the anterior right sacral ala. There is a transversely oriented components traversing S1 extending into the left sacral ala. There is a comminuted fracture of the right superior pubic ramus extending into the acetabulum of the right hip. There are displaced fractures of the right transverse process of the L1-L5 levels. Degenerative changes are noted throughout the visualized thoracolumbar spine. CT/CT chest wo con IMPRESSION: There is a small amount of fluid adjacent to the inferior pole of the spleen with a subtle focus of hypoattenuation measuring approximately 8 mm at the inferior pole possibly representing a grade 1 splenic laceration. There are minimally displaced fractures of the posterior first through twelfth ribs. There are mildly displaced fractures of the posterior aspect of the left fourth through ninth ribs. There is a transversely oriented fracture of the left scapular wing which is comminuted. There is widening of the right sacroiliac joint with a displaced fracture along the subarticular region of the anterior right sacral ala. There is a transversely oriented components traversing S1 extending into the left sacral ala. There is a comminuted fracture of the right superior pubic ramus extending into the acetabulum of the right hip. There are displaced fractures of the right transverse process of the L1-L5 levels. No pneumothorax or pleural effusion. Additional chronic findings are noted as above. Impression dictated by: Tyler Mobley M.D.04/30/2024 3:06 PM Dictation Location: [place] [address] Transcribed By: [facility] 04/30/24 1506 Dictated By: Tyler Mobley II, MD 04/30/24 1451 Signed By: <Electronically signed by Tyler Mobley II, MD in OV> 04/30/[address] CERVICAL SPINE WO CON Observed: 04/30 2:39 PM Status: COMPLETED Source: [facility] [place] [address] CT Scan Report Signed Patient: Amado Tran MR#: [id number] 437 : 1965 Acct:[id number] Age/Sex: 59 / M ADM Date: 04/30/24 Loc: ER Room: Type: [facility] ER Attending Dr: Copies to: Darren Ernandez PA-C Ordering Provider: Darren Ernandez PA-C Date of Service: 04/30/24 CT/CT cervical spine wo con: trauma ([id number]) CT/CT head/brain wo con: trauma CT head/brain wo con, CT cervical spine wo con 04/30/2024 2:07 PM SIGNS AND SYMPTOMS: Fall TECHNIQUE:Multi-detector CT axial slices of the brain and cervical spine were obtained without IV contrast. Helical,sagittal, coronal, and 3-D reconstructions of the cervical spine were performed. CT was performed with one or more of the following dose reduction techniques: Automated exposure control, adjustment of the mA and/or kV according to patient size, or use of iterative reconstruction technique. COMPARISON: None. FINDINGS: Noncontrast head CT: There is no shift of the midline structures, acute intracranial bleeding, mass effects, or evidence of acute ischemia. There is age-related cortical atrophy. Atherosclerotic changes are noted in the V4 segments of the vertebral arteries and intracranial segments of the internal carotid arteries. The ventricular system is normal in size. The brainstem and the cerebellum are unremarkable. The visualized intraorbital contents, the visualized paranasal sinuses, and the infratemporal soft tissues show no acute abnormality. The osseous structures in the skull base and the calvarium show no abnormality. Cervical spine: There is preservation of the vertebral body heights and intervertebral discs. No acute cervical fractures or dislocations are seen. There is partial visualization of a minimally displaced fractures of the posterior and medial most aspects of the right first and second ribs. There is a mild dextro convex curvature of the cervical spine. The bones are otherwise in anatomic alignment.. The craniocervical junction and atlantoaxial joint are within normal limits. The prevertebral soft tissues are within normal limits. The paraspinous soft tissues are within normal limits. The lung apices are unremarkable. Atherosclerotic changes are noted in the carotid bifurcations. CT/CT head/brain wo con IMPRESSION: No acute intracranial pathology. Chronic age-related neurodegenerative changes are noted as above. No acute cervical spine injury. There is partial visualization of a minimally displaced fractures of the posterior and medial most aspects of the right first and second ribs. Impression dictated by: Tyler Mobley M.D.04/30/2024 2:51 PM Dictation Location: [place] [address] Transcribed By: [facility] 04/30/24 1451 Dictated By: Tyler Mobley II, MD 04/30/24 1439 Signed By: <Electronically signed by Tyler Mobley II, MD in OV> 04/30/24 1451 LEUKOCYTE REDUCED RBC Collected: 04/30/2024 1:55 PM Status: F Source: [facility] TYPE CODE TESTS RESULT OUT OF RANGE REFERENCE UNITS LAB RCLR E0336(LOINC) Leukocyte Reduced RBC TRANSFUSED 04/30/24 1356 Result Comment: PERFORMED BY : [address] [address] PATHOLOGIST RN OUTPATIENT SURGERY DAVID CORTEZ M.D. TYPE AND SCREEN Collected: 04/30/2024 1:55 PM Status : F Source: [facility] TYPE CODE TESTS RESULT OUT OF RANGE REFERENCE UNITS LAB BTV Blood Type A Positive Result Comment: PERFORMED BY : [address] [address] PATHOLOGIST RN OUTPATIENT SURGERY DAVID CORTEZ M.D. LAB ABS Antibody Screen NEGATIVE Result Comment: PERFORMED BY : [address] [address] PATHOLOGIST RN OUTPATIENT SURGERY DAVID CORTEZ M.D. ECG 12 LEAD ECG Observed: 04/30/2024 1:51 PM Status: COMPLETED Source: [facility] [place] [facility] Main [address] [address] Electrocardiograph Report Signed Patient: Amado Tran MR#: [id number] 437 : 1965 Acct:[id number] Age/Sex: 59 / M ADM Date: 04/30/24 Loc: ER Room: Type: [facility] ER Attending Dr: Ordering Provider: Darren Ernandez PA-C Date of Service: 04/30/24 ECG/ECG 12 lead ECG: Trauma Alert Copies to: Test Reason : Blood Pressure : */* mmHG Vent. Rate : 74 BPM Atrial Rate : 74 BPM P-R Int : 212 ms QRS Dur : 158 ms QT Int : 454 ms P-R-T Axes : 33 8 39 degrees QTcB Int : 503 ms Sinus rhythm with 1st degree AV block Right bundle branch block Abnormal ECG When compared with ECG of 04-Jun-2023 10:46, Borderline criteria for Lateral infarct are no longer present No significant change was found Confirmed by JEAN-PAUL BHATT DO ([id number]) on 04/30/2024 3:53:09 PM Referred By: Electronically Signed By: JEAN-PAUL BHATT DO Transcribed By: MUS Signed By Jean-Paul Bhatt DO 04/30 1553 CREATINE KINASE Collected: 04/30/2024 1:35 PM Status : F Source: [facility] TYPE CODE TESTS RESULT OUT OF RANGE REFERENCE UNITS LAB CK Creatine Kinase 455 High 30-223 U/L Result Comment: PERFORMED BY : [place] [address] PATHOLOGIST RN OUTPATIENT SURGERY DAVID CORTEZ M.D. Performed By: #### BUN, AST, PT, LYTES, GLU, STEVEN, PTT, LIPASE, CBC, CK, ETOH #### [address] ELECTROLYTES Collected: 4 11:35 AM Status: F Source: [facility] TYPE CODE TESTS RESULT OUT OF RANGE REFERENCE UNITS LAB NA Sodium 134 Low 136-145 mmol/L LAB K Potassium 4.6 Normal 3.5-5.1 mmol/L LAB CL Chloride 95 Low 98-107 mmol/L LAB CO2 Carbon Dioxide 25.8 Normal 21.0-31.0 mmol/L LAB GAP Anion Gap 17.8 High 6.0-15.0 Performed By: #### BUN, AST, PT, LYTES, GLU, STEVEN, PTT, LIPASE, CBC, CK, ETOH #### [address] GLUCOSE Collected: 4 11:35 AM Status: F Source: [facility] TYPE CODE TESTS RESULT OUT OF RANGE REFERENCE UNITS LAB GLU Glucose 302 High 70-100 mg/dL Result Comment: Random Gluco se Reference Range is dependent on time and content of last meal. Glucose of more than 200 mg/dL in a nonstressed, ambulatory subject supports the diagnosis of Diabetes Mellitus. ADA recommended reference range Performed By: #### BUN, AST, PT, LYTES, GLU, STEVEN, PTT, LIPASE, CBC, CK, ETOH #### [address] BLOOD UREA NITROGEN Collected: 04/30/2024 11:35 AM S tatus: F Source: [facility] TYPE CODE TESTS RESULT OUT OF RANGE REFERENCE UNITS LAB BUN Blood Urea Nitrogen 30 High 7-25 mg/dL Performed By: #### BUN, AST, PT, LYTES, GLU, STEVEN, PTT, LIPASE, CBC, CK, ETOH #### [address] ASPARTATE AMINO TRANSFERASE Collected: 04/30/2024 11: 35 AM Status: F Source: [facility] TYPE CODE TESTS RESULT OUT OF RANGE REFERENCE UNITS LAB AST Aspartate Amino Transferase 100 High 13-39 U/L Performed By: #### BUN, AST, PT, LYTES, GLU, STEVEN, PTT, LIPASE, CBC, CK, ETOH #### [address] AMYLASE Collected: 11:35 AM Status: F Source: [facility] TYPE CODE TESTS RESULT OUT OF RANGE REFERENCE UNITS LAB STEVEN Amylase 96 Normal 29-103 U/L Performed By: #### BUN, AST, PT, LYTES, GLU, STEVEN, PTT, LIPASE, CBC, CK, ETOH #### [address] LIPASE Collected: 11:35 AM Status: F Source: [facility] TYPE CODE TESTS RESULT OUT OF RANGE REFERENCE UNITS LAB LIPASE Lipase 70.0 Normal 11.0-82.0 U/L Result Comment: PERFORMED BY : [place] [address] PATHOLOGIST RN OUTPATIENT SURGERY DAVID CORTEZ M.D. Performed By: #### BUN, AST, PT, LYTES, GLU, STEVEN, PTT, LIPASE, CBC, CK, ETOH #### [facility] [address] [place] [id number] [facility] ETHYL ALCOHOL PROFILE Collected: 2023 11:35 AM Status: F Source: [facility] TYPE CODE TESTS RESULT OUT OF RANGE REFERENCE UNITS LAB ETHYALC Ethanol < 10 LAB ETHYLALC% Percent Ethanol Test not performed Result Comment: PERFORMED BY : [place] [address] PATHOLOGIST RN OUTPATIENT SURGERY DAVID CORTZE M.D. Performed By: #### BUN, AST, PT, LYTES, GLU, STEVEN, PTT, LIPASE, CBC, CK, ETOH #### [facility] [address] COMPLETE BLOOD COUNT AUTO DIFF Collected: 04/30/2024 11:35 AM Status: F Source: [facility] TYPE CODE TESTS RESULT OUT OF RANGE REFERENCE UNITS LAB WBC White Blood Count 21.7 High 4.1-10.5 10*3/uL LAB UNWBC Uncorrected WBC 21.7 High 4.1-10.5 10*3/uL LAB RBC Red Blood Count 3.46 Low 3.90-5.60 LAB HGB Hemoglobin 11.2 Low 13.0-17.0 g/dL LAB HCT Hematocrit 35.0 Low 38.8-50.0 % LAB MCV Mean Corpuscular Volume 101.0 Normal 83.5-101 fL LAB MCH Mean Corpuscular Hemoglobin 32.3 Normal 27.5-35.2 pg LAB MCHC Mean Corpuscular HGB Conc 32.0 Low 32.5-35.6 g/dL LAB RDW Red Cell Distribution Width 14.7 Normal 12.0-14.8 % LAB PLT Platelet Count 169 Normal 150-450 10*3/uL LAB MPV Mean Platelet Volume 11.2 High 6.6-10.1 fL LAB MDW Monocyte Distribution Width 18.62 Normal 0.00-20.00 % LAB NE% Neutrophils % (Auto) 84.2 . % LAB LY% Lymphocytes % (Auto) 11.0 . % LAB MO% Monocytes % (Auto) 3.1 . % LAB EO% Eosinophils % (Auto) 1.2 . % LAB BA% Basophils % (Auto) 0.5 . % LAB NRBC% NRBC% 0.0 Normal 0-0.5 /100{WBC } LAB NE# Neutrophils # (Auto) 18.2 High 1.8-7.7 10*3/uL LAB LY# Lymphocytes # (Auto) 2.4 Normal 1.00-4.8 10*3/uL LAB MO# Monocytes # (Auto) 0.7 Normal 0.0-0.8 10*3/uL LAB EO# Eosinophils # (Auto) 0.3 Normal 0.0-0.45 10*3/uL LAB BA# Basophils # (Auto) 0.1 Normal 0.0-0.2 10*3/uL Result Comment: PERFORMED BY : [place] [address] PATHOLOGIST RN OUTPATIENT SURGERY DAVID CORTEZ M.D. Performed By: #### BUN, AST, PT, LYTES, GLU, STEVEN, PTT, LIPASE, CBC, CK, ETOH #### [place] [id number] [facility] PROTHROMBIN TIME INR Collected: 11:35 AM Status: F Source: [facility] [facility] TYPE CODE TESTS RESULT OUT OF RANGE REFERENCE UNITS LAB R PT Prothrombin Time 13.4 High 9.0-12.9 s Result Comment: A hematocrit value greater than 55% may lead to inaccurate results in coagulation testing. Patients having hematocrit values >55% require a special collection tube for coagulation studies. Please contact the laboratory at [phone] for redraw instructions. LAB INR INR 1.2 Result Comment: INR Therapeu tic Range A) Pre- and Peroperative OAT started two weeks before surgery. NOT HIP SURGERY: 1.5 - 2.5 HIP SURGERY: 2 - 3 B) Primary and secondary prevention of venous THROMBOSIS: 2 - 3 C) Active venous thrombosis, pulmonary embolism and prevention of recurrent venous thrombosis: 2 - 3 D) Prevention of arterial thromboembolism including patients with mechanical heart valves: 3 - 4.5 Performed By: #### BUN, AST, PT, LYTES, GLU, STEVEN, PTT, LIPASE, CBC, CK, ETOH #### [address] [address] [place] PARTIAL THROMBOPLASTIN TIME Collected: 04/30/2024 11: 35 AM Status: F Source: [facility] TYPE CODE TESTS RESULT OUT OF RANGE REFERENCE UNITS LAB PTT Partial Thromboplastin Time 29.0 Normal 25.1-36.5 s Result Comment: A hematocrit value greater than 55% may lead to inaccurate results in coagulation testing. Patients having hematocrit values >55% require a special collection tube for coagulation studies. Please contact the laboratory at [phone] for redraw instructions. PERFORMED BY: [place] [id number] PATHOLOGIST RN OUTPATIENT SURGERY DAVID CORTEZ M.D. Performed By: #### BUN, AST, PT, LYTES, GLU, STEVEN, PTT, LIPASE, CBC, CK, ETOH #### [address] [address] [facility] OFFICE VISIT Observed: 03/31/2024 10:20 AM Status: COMPLETED Source: [facility] [id number] Juanpablo Tran 1964 M Date Provider Department [facility] Family History Problem Relation Age of Onset Breast cancer Mother Lung cancer Father Family Status - Relation Status Age at Mother Father Level of Service:14468 [place] OFFICE/OUTPATIENT ESTABLISHED LOW MDM 20 MIN PROGRESS Observed: 03/31/2024 10:20 AM Status: COMPLETED Source: [facility] [place] Subjective Juanpablo Tran is a 59 y.o. [...] Obstructive sleep apnea syndrome Paroxysmal atrial fibrillation (CMS/HCC) Stage 4 chronic kidney disease (CMS/HCC) Surgical wound, non healing Abnormal gait Abnormal posture Callus of foot Depression, unspecified Dermatitis associated with moisture Diabetic peripheral neuropathy ([facility]/HCC) Disorder associated with type 2 diabetes mellitus ([facility]/HCC) Gastro-esophageal reflux disease without esophagitis Generalized muscle weakness Hammer toe Hemodialysis-associated hypotension Hereditary and idiopathic neuropathy, unspecified Onychodystrophy halfway (current) use of oral hypoglycemic drugs Hyperlipidemia, unspecified Onychomycosis Other abnormalities of gait and mobility Pain, unspecified Constipation due to opioid therapy Abscess of left thigh Acute renal failure ([facility]/HCC) Anemia of renal disease Dialysis AV fistula malfunction ([facility]/HCC) Dialysis disequilibrium syndrome Diarrhea DKA (diabetic ketoacidosis) ([facility]) History of hypotension Hyponatremia Left thigh pain Leukocytosis Metabolic acidosis Nausea and vomiting Obesity Scalp abscess Cellulitis, umbilical Dermatitis, unspecified Iron deficiency anemia Joint pain 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 Secondary hyperparathyroidism ([facility]) Family History Problem Relation Name Age of [...] 6 months, or sooner as needed Kris Denson, Brannonaroxysmal atrial fibrillation -[id number] = 4 - (HTN, hx HF, HTN, [...] MORNING AND AT BEDTIME, Disp: 180 tablet, Rfl: 3 aspirin 81 [...] in the morning., Disp: , Rfl: HYDROcodone-acetaminophen (Davin) 5-325 mg tablet, Take 1-2 tablets by mouth every 6 (six) hours if needed., Disp: , Rfl: insulin NPH and regular human (NovoLIN) 100 unit/mL (70-30) injection, Inject 30 Units under the skin., Disp: , Rfl: midodrine (Proamatine) 10 mg tablet, Take 10 mg by mouth if needed. At dialysis, Disp: , Rfl: omeprazole (PriLOSEC) [address] capsule, Take 40 mg by mouth in the morning., Disp: , Rfl: pioglitazone (Actos) 30 mg tablet, Take 30 mg by mouth in the morning., Disp: , Rfl: sertraline (Zoloft) 100 mg tablet, Take 100 mg by mouth in the morning., Disp: , Rfl: sevelamer carbonate (Renvela) 800 mg tablet, Take 1,600 mg by mouth., Disp: , Rfl: sildenafil (Viagra) 25 mg tablet, TAKE 1 TABLET BY MOUTH ONCE DAILY NEEDED - TAKE 30 MINUTES PRIOR TO ANTICIPATED ACTIVITY, Disp: , Rfl: metoprolol succinate XL (Toprol-XL) 25 mg 24 hr tablet, Take 1 tablet (25 mg) by mouth in the morning. (Patient not taking: Reported on 03/31/2024), Disp: 90 tablet, Rfl: 3 Recent Labs 08/02/2022 White Blood Cells 4.0 - 11.0 X10E9/L 12.4 High RBC count 4.10 - 5.70 X10E12/L 3.17 Low Hemoglobin 13.0 - 17.0 g/dL 10.4 Low Hematocrit 39 - 49 % 31.9 Low MCV 80 - 100 fL 101 High MCH 27 - 34 pg 32.8 MCHC 32 - 36 g/dL 32.5 RDW 11.5 - 15.0 % 15.2 High Platelets 150 - 450 X10E9/L 315 MPV 7 - 12 fL 8.4 Metamyelocyte % 1.9 Band % 2.9 Seg neutrophil % 68.5 Lymphocyte % 15.2 Monocytes % 8.6 Eosinophil % 2.9 Neutrophils Absolute (M) 1.5 - 6.6 X10E9/L 8.9 High Lymphocytes Absolute 1.0 - 3.5 X10E9/L 1.9 Monocytes Absolute 0 - 0.9 X10E9/L 1.1 High Eosinophils Absolute 0.0 - 0.4 X10E9/L 0.4 Sodium 134 - 146 mmol/L 130 Low Potassium, Bld 3.5 - 5.0 mmol/L 3.9 Chloride 98 - 109 mmol/L 95 Low CO2 22 - 32 mmol/L 25 Anion gap 5 - 15 mmol/L 10 BUN 5 - 23 mg/dL 18 Creatinine 0.60 - 1.30 mg/dL 5.50 High Comment: METHOD TRACEABLE TO IDMS STANDARD Glucose 65 - 99 mg/dL 136 High Calcium 8.5 - 10.5 mg/dL 8.6 eGFR (CKD-EPI)non-race dependent >59 ml/min/1.73sq.m 11 Low 08/01/2022 Ref Range & Units 1 mo ago Alkaline phosphatase 39 - 130 U/L 79 AST 0 - 41 U/L 20 ALT 0 - 40 U/L 21 Total Bilirubin 0.3 - 1.2 mg/dL 0.5 Bilirubin, direct 0.0 - 0.4 mg/dL 0.1 Albumin 3.2 - 5.3 g/dL 3.1 Low Total Protein 6.0 - 8.0 g/dL 7.1 Imaging and other tests Echo: 07/24/2022 Left Ventricle Left ventricle appears normal in size. There is mild increased wall thickness/hypertrophy. Systolic function is normal with an ejection fraction of 55-60%. No obvious regional wall motion abnormalities. Diastolic function assessment is indeterminate. Lateral E' is 7.62 cm/s. Medial E' is 6.74 cm/s. Right Ventricle Right ventricle was not well visualized. Right ventricular size is mildly dilated. The right ventricular basal diameter is 53.0 mm. Systolic function is low normal. A pacer wire is present in the right ventricle. Left Atrium Left atrium is mildly dilated. The left atrial volume index is 28.5 mL/m2. Right Atrium Right atrium is mildly dilated. IVC/SVC IVC appears dilated with increased right atrial pressure. Mitral Valve Mitral valve structure is normal. There is trace regurgitation. There is no evidence of mitral valve stenosis. Tricuspid Valve Tricuspid valve appears to be normal. There is mild regurgitation. There is no evidence of tricuspid valve stenosis. RVSP calculated at 38 mmHg. RVSP is based on RA pressure of 8 mmHg. RVSP may be underestimated. Aortic Valve The aortic valve is trileaflet. There is no regurgitation or stenosis. Pulmonic Valve Pulmonic valve structure is grossly normal. There is trace regurgitation. There is no evidence of pulmonic valve stenosis. The peak gradient is 4.49 mmHg. Ascending Aorta The aortic root is normal in size. Pericardium There is no pericardial effusion. ECHO 11/11/20: low normal LV systolic function, grade II DD, normal RV systolic function, no significant valvular dysfunction, normal right sided pressures ECHO from [place] - 08/31/2019: EF 55-60%, no RWMA, trace MR, trace TR Cardiovascular Laboratory Report (05/2017) FINAL IMPRESSION: 1. Right heart catheterization demonstrates yjzkfirq-mi-ydhkvjur elevated pulmonary capillary wedge pressure with a mean wedge pressure of 26 mmHg. 2. The cardiac output and cardiac index are preserved. 3. The patient is hypertensive at the time of this study. 4. Coronary angiogram reveals mild 2 vessel coronary artery disease, appropriate for medical therapy. PLAN: 1. Medical therapy for congestive heart failure. The patient is already on beta-mike and TALIA inhibitor. After discussion with Dr. Schofield, I am adding Lasix 20 mg twice daily for treatment of decompensated congestive heart failure. 2. The patient is hypertensive at the time of the study. I am adding amlodipine 5 mg daily for antihypertensive medical therapy. The patient is already on metoprolol XL and lisinopril. 3. I also added spironolactone 25 mg daily for treatment of congestive heart failure and volume overload. 4. I discontinued Zestoretic (lisinopril plus HCTZ) and substituted with lisinopril alone. Since the patient will be on Lasix and spironolactone for CHF, we can discontinue hydrochlorothiazide. 5. The patient will follow up with Dr. Schofield in 1 to 2 weeks. 6. The patient will follow up with Dr. Rojas in 1 to 2 weeks. Assessment Plan HFimpEF -Echo in December showed LVEF 60% . -He appears euvolemic. He denies any orthopnea or PND. -GDMT has been limited due to hypotension. Patient is not currently on any GDMT as he has been unable to tolerate anything 2. PAF -Maintaining SR on Amiodarone. -He is on eliquis for stroke prophylaxis 3. Hyperlipidemia -Continue statin, obtain lipid profile. 4. CAD -Non-obstructive, stable without anginal symptoms. Continue Aspirin and statin therapy. 5. Orthostatic Hypotension -Continue compression stockings. -Discussed going from sitting to standing slowly -Recommend discussing decreased fluid removal if possible due to hypotension and dizziness -Optimize medical management -Aggressive risk factor modification -Plan of care discussed with patient. All questions were answered. Patient voices understanding and is agreeable with current plan. -Patient was educated on red flag symptoms. Strict return precautions were provided. Patient verbalizes understanding -Follow-up in cardiology clinic Kris Denson MD GRAM STAIN Observed: 03/23/2024 1:58 PM Status: F Source: [facility] SOURCE: UMBILICUS Gram Stain Result 4+ Gram Positive Cocci 4+ Gram Positive Bacilli 2+ White Blood Cells PERFORMED BY: [place] [address] PATHOLOGIST RN OUTPATIENT SURGERY DAVID CORTEZ M.D. Performed By: #### CHEYENNE, AERC #### [place] [id number] [facility] AEROBIC CULTURE Observed: 03/23/2024 1:58 PM Status: F Source: [facility] SOURCE: UMBILICUS Heavy Normal Skin Anahi 2 Days SOURCE: UMBILICUS Anaerobic Culture Results Heavy Mixed Anaerobic Anahi 3 Days SOURCE: UMBILICUS Gram Stain Result 4+ Gram Positive Cocci 4+ Gram Positive Bacilli 2+ White Blood Cells PERFORMED BY: [place] [address] PATHOLOGIST RN OUTPATIENT SURGERY DAVID CORTEZ M.D. Performed By: #### GS, AERC #### [address] [address] [facility] ALLERGIES DATE TYPE / CODE NAME / CODE REACTION SEVERITY SOURCE 08/18/2024 DRUG INGREDI/4195 21955(SNOMED CT) PENICILLIN Other [facility] 04/30/2024 Drug Class/658838 003(SNOMED CT) PENICILLINS FAINT FEELIN [facility] 03/23/2024 Drug Allergy/4160 09426(SNOMED CT) Penicillins/K407680 476(RXNORM) Fainting Unknown [facility] 03/23/2024 Drug Allergy/4160 32408(SNOMED CT) penicillin G/[id number](RXNORM ) Unknown Reaction Unknown [facility] 05/15/2017 Drug Class~NON-CB ORD/76084208 3(SNOMED CT) PENICILLINS Syncope Med [facility] 05/15/2017 Drug Class/352604 003(SNOMED CT) PENICILLINS Other Medium [facility] SYSTEMIC/420 747718(SNOME D CT) NO KNOWN ALLERGIES [facility] Drug Class/722028 003(SNOMED CT) NO KNOWN ALLERGIES [facility] Drug Class/874886 003(SNOMED CT) NO ALLERGY INFORMATION AVAILABLE [facility] ENCOUNTERS ADMIT/DISCHARGE ACCOUNT NUMBER ADMITTING ENCOUNTER CLASS LOCATION SOURCE 11/26/2024/11/27/19 [id number] Ambulatory Building:[facility] 11/19/2024/11/20/19 [id number] Ambulatory Building:[facility] 09/08/2024/09/08/19 [id number] Ambulatory Building:[facility] 09/01/2024/09/02/19 [id number] Emergency Building:PF _EDRoom: 4Bed: 04 [facility] 08/18/2024/08/18/19 [id number] Ambulatory Building:[facility] 07/14/2024/07/14/20 [id number] Ambulatory Building:[facility] 06/23/2024/06/24/20 [id number] Emergency Building:PF _EDRoom: 7Bed: 07 [facility] 06/22/2024/06/22/20 24 [id number] [facility] 06/22/2024/06/22/20 24 [id number] Unknown [facility] 06/16/2024/06/16/20 24 [id number] Ambulatory Building:[facility] 06/13/2024/06/13/20 24 [id number] Ambulatory Building:PF _LAB [facility] 06/10/2024/06/21/20 24 [id number] Unknown [facility] 06/01/2024/06/01/20 24 [id number] Ambulatory Building:[facility] 05/27/2024/05/27/20 24 [id number] Ambulatory Building:[facility] 05/20/2024/05/28/20 24 [id number] MONICA GARCIA Inpatient Encounter Building:[place] [address] : [id number]: 01 [facility] 05/20/2024/05/20/20 24 [id number] Emergency Building:PF _EDRoom: 6Bed: 06 [facility] 05/14/2024/05/14/20 24 [id number] MALO ROJELIO [facility] 05/14/2024/05/14/20 24 [id number] MALUSO, ROEJLIO [facility] 05/03/2024/05/03/20 24 [id number] MALUSO, ROJELIO [facility] 05/02/2024/05/02/20 24 [id number] MALUSO, ROJELIO [facility] 05/02/2024 [id number] MALUSO ROJELIO [facility] 05/01/2024 [id number] MALUSO, ROJELIO [facility] 05/01/2024/05/01/20 24 [id number] MALUSO, ROJELIO [facility] 05/01/2024 [id number] MALUSO ROJELIO [facility] 05/01/2024 [id number] Unknown [facility]ulatory [facility] 05/01/2024 [id number] MALUSO ROJELIO [facility] 05/01/2024 [id number] MALUSO ROJELIO [facility] 05/01/2024 [id number] MALUSO, ROJELIO [facility] 05/01/2024 [id number] MALUSO, ROJELIO [facility] 04/30/2024/05/15/20 24 [id number] MALONIGHATROJELIO [facility]GC 5 EASTRoom: [id number]: 2 [facility] 04/30/2024/04/30/20 [id number] Unknown [facility] 04/30/2024 [id number] Unknown Emergency [facility] 04/30/2024/04/30/20 24 [id number] [facility]ren [facility] 04/30/2024 [id number] Unknown [facility] 04/30/2024 [id number] Unknown Emergency [facility] 04/07/2024/04/07/20 [id number] Ambulatory Building:[facility] EPIC 03/31/2024/03/31/20 24 [id number] Ambulatory Building:[facility] 03/23/2024/03/23/20 [id number] Octaviano Mahan [facility] 01/30/2024/01/30/20 [id number] Ambulatory Building:[facility] EPIC PAYERS ENCOUNTER GUARANTOR PAYER SUBSCRIBER SOURCE 11/26/2024 [facility] Number: [id number] Date:8100-22-95Ljdn Name:Medicare DOUG L KERNSDOB: [id number] [place] [address] [facility] 11/19/2024 Primary Insurance:MEDICAREPoli cy Number: [id number] Date:5159-07-63Mabl Name:Medicare DOUG L KERNSDOB: [id number] [place] [address] [facility] 11/19/2024 Secondary Insurance:[facility]ID [facility] Number: [id number] Date:2020-10-13 JUANPABLO TRANDOB: [id number] [place] [address] [facility] 09/08/2024 AMADO PANDEYB: [id number] [place] [address]Kys: () Primary Insurance:MEDICAREPoli cy Number: [id number] Date:9778-15-49Asmv Name:Medicare DOUGLAS L KERNSDOB: [id number] [place] [address] [facility] 09/01/2024 AMADO PANDEYB: [id number] [place] [place], [place] [address]Qqj: (HP) Primary Insurance:MEDICARE PART A & BPolicy Number: [id number] Date:2020-01-13 AMADO PANDEYB: [id number] [place] [place], [place] [address]Saf: () [facility] 08/18/2024 Primary Insurance:MEDICAREPoli cy Number: [id number] Date:0330-35-25Hvzb Name:Medicare DOUG L KERNSDOB: [id number] [place] [address] [facility] 08/18/2024 Secondary Insurance:MEDICAID [facility] Number: [id number] Date:2020-10-13 JUANPABLO TRANDOB: [id number] [place] [address] [facility] 07/14/2024 AMADO TRANDOB: [place], [place] [address]Uvb: (HP) Primary Insurance:MEDICARE PART A & BPolicy Number: [id number] Date:2020-01-13 AMADO TRANDOB: [id number] [place] [place], [place] [address]Ecc: (HP) (WP) [facility] 07/14/2024 Secondary Insura nce:[place] MEDICAIDPolicy Number: [id number] Date:2020-10-13 AMADO TRANDOB: [id number] [place] [place], [place] [address]Yuh: (HP) (WP) [facility] 06/23/2024 AMADO TRANDOB: [place] [address]Dzm: (HP) Primary Insurance:MEDICARE PART A & BPolicy Number: [id number] Date:2020-01-13 AMADO TRANDOB: [id number] [place] [place], [place] [address]Rrp: (HP) (WP) [facility] 06/23/2024 Secondary Insura nce:[place] MEDICAIDPolicy Number: [id number] Date:2020-10-13 AMADO TRANDOB: [id number] [place] [place], [place] [address]Sro: (HP) (WP) [facility] 06/22/2024 AMADO TRANDOB: [place] [address]Eza: ~(06 9 (HP) Primary Insurance:MEDICARE PART APolicy Number: [id number] Date:2020-01-13 AMADO TRANDOB: [id number] [place] [place], [place] [address]Aoa: (HP) [facility] 06/22/2024 Secondary Insurance:FF[place]-TRADITIO [place] MEDICAIDPolicy Number: [id number] Date:2024-04-14 AMADO TRANDOB: [id number] [place] [place], [place] [address]Oso: (HP) [facility] 06/22/2024 AMADO TRANDOB: [place] [address]Oli: ~(20 9 (HP) Primary Insurance:MEDICARE PART APolicy Number: [id number] Date:2020-01-13 AMADO TRANDOB: [id number] [place] [place], [place] [address]Qkl: (HP) [facility] 06/22/2024 Secondary Insurance:FFS-TRADITIO [facility] MEDICAIDPolicy Number: [id number] Date:2024-04-14 AMADO TRANDOB: [id number] [place] [place], [place] [address]Fxy: (HP) [facility] 06/16/2024 Primary Insurance:MEDICAREPoli cy Number: [id number] Date:0794-73-91Cgif Name:Medicare JUANPABLO TRANDOB: [id number] [place] [address] [facility] 06/16/2024 Secondary Insurance:MEDICAID [place] Number: [id number] Date:2020-10-13 JUANPABLO PANDEYB: [id number] [place] [address] [facility] 06/13/2024 AMADO TRANDOB: [place] [place], [place] [address]Gvu: (HP) Primary Insurance:MEDICARE PART A & BPolicy Number: [id number] Date:2020-01-13 AMADO TRANDOB: [id number] [place], [place] [address]Xof: (HP) () [facility] 06/13/2024 Secondary Insura nce:[place] MEDICAIDPolicy Number: [id number] Date:2020-10-13 AMADO TRANDOB: [id number] [place] [place], [place] [address]Ddd: (HP) (WP) [facility] 06/10/2024 AMADO TRANDOB: [place] [address]Lsc: ~(93 9 (HP) Primary Insurance:MEDICARE PART APolicy Number: [id number] Date:2020-01-13 AMADO TRANDOB: [id number] [place] [place], [place] [address]Pbf: (HP) [facility] 06/10/2024 Secondary Insurance:FFS-TRADITIO [facility] MEDICAIDPolicy Number: [id number] Date:2024-04-14 AMADO TRANDOB: [id number] [place] [place], [place] [address]Wbv: (HP) [facility] 06/01/2024 AMADO TRANDOB: [place], [place] [address]Vwh: (HP) Primary Insurance:MEDICARE PART A & BPolicy Number: [id number] Date:2020-01-13 AMADO TRANDOB: [id number] [place] [place], [place] [address]Itm: (HP) () [facility] 06/01/2024 Secondary Insura nce:[place] MEDICAIDPolicy Number: [id number] Date:2020-10-13 AMADO TRANDOB: [id number] [place] [place], [place] [address]Pqp: (HP) (WP) [facility] 05/27/2024 AMADO TRANDOB: [place], [place] [address]Oay: (HP) Primary Insurance:MEDICARE PART A & BPolicy Number: [id number] Date:2020-01-13 AMADO TRANDOB: [id number] [place] [place], [place] [address]Uqt: (HP) () [facility] 05/27/2024 Secondary Insura nce:[place] MEDICAIDPolicy Number: [id number] Date:2020-10-13 AMADO TRANDOB: [id number] [place] [place], [place] [address]Sut: (HP) () [facility] 05/20/2024 AMADO TRANDOB: [place] [place], [place] [address]Esy: (HP) Primary Insurance:MEDICARE PART A & BPolicy Number: [id number] Date:2020-01-13 AMADO TRANDOB: [id number] [place], [place] [address]Wel: (HP) (WP) [facility] 05/20/2024 Secondary Insura nce:[place] MEDICAIDPolicy Number: [id number] Date:2020-10-13 AMADO TRANDOB: [id number] [place], [place] [address]Zhy: (HP) (WP) [facility] 05/20/2024 AMADO TRANDOB: [address], [place] [address]Edq: (HP) Primary Insurance:MEDICARE PART A & BPolicy Number: [id number] Date:2020-01-13 AMADO TRANDOB: [id number] [place], [place] [address]Vvh: (HP) (WP) [facility] 05/20/2024 Secondary Insura nce:[place] MEDICAIDPolicy Number: [id number] Date:2020-10-13 AMADO TRANDOB: [id number] [place] [place], [place] [address]Qko: (HP) (WP) [facility] 05/14/2024 AMADO TRANDOB: [place] [address]Qml: ~(68 9 (HP) Primary Insurance:MEDICARE PART APolicy Number: [id number] Date:2020-01-13 AMADO TRANDOB: [id number] [place], [place] [address]Tdn: (HP) [facility] 05/14/2024 Secondary Insurance:FFS-TRADITIO [facility] MEDICAIDPolicy Number: [id number] Date:2024-04-14 AMADO LINDERNSDOB: [id number] [place] [place], [place] [address]Vhe: (HP) [facility] 05/14/2024 AMADO LINDERNSDOB: [place] [address]Grz: ~(41 9 (HP) Primary Insurance:MEDICARE PART APolicy Number: [id number] Date:2020-01-13 AMADO LINDERNSDOB: [id number] [place] [address], [place] [address]Ory: (HP) [facility] 05/14/2024 Secondary [facility] MEDICAIDPolicy Number: [id number] Date:2024-04-14 AMADO LINDERNSDOB: [id number] [place] [address], [place] [address]Kpz: (HP) [facility] 05/03/2024 AMADO LINDERNSDOB: [place] [address]Zer: ~(41 9 (HP) Primary Insurance:MEDICARE PART APolicy Number: [id number] Date:2020-01-13 AMADO LINDERNSDOB: [id number] [place] [address], [place] [address]Xxn: (HP) [facility] 05/03/2024 Secondary Insurance:[facility]IO [facility] MEDICAIDPolicy Number: [id number] Date:2024-04-14 AMADO LINDERNSDOB: [id number], [place] [address]Mnq: (HP) [facility] 05/02/2024 AMADO LINDERNSDOB: [place] [address]Yuh: ~(41 9 (HP) Primary Insurance:MEDICARE PART APolicy Number: [id number] Date:2020-01-13 AMADO LINDERNSDOB: [id number], [place] [address]Yko: (HP) [facility] 05/02/2024 [facility] MEDICAIDPolicy Number: [id number] Date:2024-04-14 AMADO LINDERNSDOB: [id number], [place] [address]Bcp: (HP) [facility] 05/02/2024 AMADO LINDERNSDOB: [place] [address]Ebg: ~(41 9 (HP) Primary Insurance:MEDICARE PART APolicy Number: [id number] Date:2020-01-13 AMADO LINDERNSDOB: [id number] [place], [place] [address]Gfd: (HP) [facility] 05/02/2024 [facility]ICAIDPolicy Number: [id number] Date:2024-04-14 AMADO LINDERNSDOB: [id number], [place] [address]Cdd: (HP) [facility] 05/01/2024 AMADO LINDERNSDOB: [place] [address]Pus: ~(41 9 (HP) Primary Insurance:MEDICARE PART APolicy Number: [id number] Date:2020-01-13 AMADO LINDERNSDOB: [id number] [address] [place], [place] [address]Ido: (HP) [facility] 05/01/2024 Secondary Insurance:FFS-TRADITIO [facility] MEDICAIDPolicy Number: [id number] Date:2024-04-14 AMADO LINDERNSDOB: [id number] [place], [place] [address]Wkn: (HP) [facility] 05/01/2024 AMADO LINDERNSDOB: [place] [address]Pqp: ~(41 9 (HP) Primary Insurance:MEDICARE PART APolicy Number: [id number] Date:2020-01-13 AMADO LINDERNSDOB: [id number], [place] [address]Csq: (HP) [facility] 05/01/2024 Secondary Insurance:FFS[facility]TRADITIO [facility] MEDICAIDPolicy Number: [id number] Date:2024-04-14 AMADO LINDERNSDOB: [id number], [place] [address]Xfi: (HP) [facility] 05/01/2024 AMADO LINDERNSDOB: [place] [address]Yxu: ~(41 9 (HP) Primary Insurance:MEDICARE PART APolicy Number: [id number] Date:2020-01-13 AMADO LINDERNSDOB: [id number] [place], [place] [address]Aiv: (HP) [facility] 05/01/2024 Secondary Insurance:FFS-TRADITIO N[place] MEDICAIDPolicy Number: [id number] Date:2024-04-14 AMADO Villalba KERNSDOB: [id number], [place] [address]Nmf: (HP) [facility] 05/01/2024 AMADO LINDERNSDOB: [place] [address]Yos: ~(41 9 (HP) Primary Insurance:MEDICARE PART APolicy Number: [id number] Date:2020-01-13 AMADO LINDERNSDOB: [id number], [place] [address]Jkk: (HP) [facility] 05/01/2024 Secondary Insurance:FFS-TRADITIO [facility] MEDICAIDPolicy Number: [id number] Date:2024-04-14 AMADO LINDERNSDOB: [id number] [place], [place] [address]Kha: (HP) [facility] 05/01/2024 AMADO LINDERNSDOB: [place] [address]Jmw: ~(41 9 (HP) Primary Insurance:MEDICARE PART APolicy Number: [id number] Date:2020-01-13 AMADO LINDERNSDOB: [id number] [place], [place] [address]Aal: (HP) [facility] 05/01/2024 Secondary Insurance:[facility] MEDICAIDPolicy Number: [id number] Date:2024-04-14 AMADO LINDERNSDOB: [id number], [place] [address]Jeg: (HP) [facility] 05/01/2024 AMADO LINDERNSDOB: [place] [address]Ofg: ~(41 9 (HP) Primary Insurance:MEDICARE PART APolicy Number: [id number] Date:2020-01-13 AMADO LINDERNSDOB: [id number] [place] [place], [place] [address]Tld: (HP) [facility] 05/01/2024 Secondary Insurance:FFS-TRADITIO [place] MEDICAIDPolicy Number: [id number] Date:2024-04-14 AMADO LINDERNSDOB: [id number], [place] [address]Xiz: (HP) [facility] 05/01/2024 AMADO LINDERNSDOB: [place] [address]Tyk: ~(41 9 (HP) Primary Insurance:MEDICARE PART APolicy Number: [id number] Date:2020-01-13 AMADO LINDERNSDOB: [id number], [place] [address]Dqa: (HP) [facility] 05/01/2024 Secondary Insurance:FFS-TRADITIO [place] MEDICAIDPolicy Number: [id number] Date:2024-04-14 AMADO TRANDOB: [id number] [place], [place] [address]Fof: (HP) [facility] 05/01/2024 AMADO TRANDOB: [place] [address]Ark: ~(41 9 (HP) Primary Insurance:MEDICARE PART APolicy Number: [id number] Date:2020-01-13 AMADO LINDERNSDOB: [id number], [place] [address]Szv: (HP) [facility] 05/01/2024 Secondary Insurance:FFS-TRADITIO [place] MEDICAIDPolicy Number: [id number] Date:2024-04-14 AMADO TRANDOB: [id number] [place], [place] [address]Sjo: (HP) [facility] 04/30/2024 AMADO TRANDOB: [place] [address]Hqb: ~(41 9 (HP) Primary Insurance:MEDICARE PART APolicy Number: [id number] Date:2020-01-13 AMADO TRANDOB: [id number] [place], [place] [address]Sxy: (HP) [facility] 04/30/2024 Secondary Insurance:FFS-TRADITIO [facility] MEDICAIDPolicy Number: [id number] Date:2024-04-14 AMADO TRANDOB: [id number] [place], [place] [address]Gax: (HP) [facility] 04/30/2024 AMADO TRANDOB: [place] [address]Vmk: ~(41 9 (HP) Primary Insurance:MEDICARE PART APolicy Number: [id number] Date:2020-01-13 AMADO TRANDOB: [id number] [place], [place] [address]Els: (HP) [facility] 04/30/2024 Secondary Insurance:FFS-TRADITIO [facility] MEDICAIDPolicy Number: [id number] Date:2024-04-14 AMADO LINDERNSDOB: [id number], [place] [address]Uzh: (HP) [facility] 04/30/2024 Amado Linderns[address] [place] [address]Pax: (HP) Primary Insurance:MedicarePoli cy Number: [id number] Date:2024-04-30 Amado TranDOB: [id number] [place] [address]Chz: () [facility] 04/30/2024 Secondary Insurance:MedicaidPoli cy Number: [id number] Date:2024-04-30 Amado TranDOB: [id number] [place] [address]Orn: () [facility] 04/30/2024 Tertiary Insurance:Self PayPolicy Number: Effective Date:2024-04-30 [facility]24 AMADO TRANDOB: [id number] [place] [address]Jmz: () Primary Insurance:MEDICAREPoli cy Number: [id number] Date:2004-06-[birth year]Spny Name:Medicare AMADO TRANDOB: [id number] [place] [address] [facility] 04/07/2024 [place] Insurance:MEDICAID [place]: [id number] Date:2020-10-13 AMADO TRANDOB: [id number] [place] [address] [facility] 03/31/2024 Primary Insurance:MEDICAREPoli cy Number: [id number] Date:8347-62-55Axlb Name:Medicare JUANPABLO TRANDOB: [id number] [place] [address] [facility] 03/31/2024 Secondary Insurance:MEDICAID [place]: [id number] Date:2020-10-13 JUANPABLO TRANDOB: [id number] [place] [address] [facility] 03/23/2024 Amado Villalba [id number] [place] [address]Jbe: () Primary Insurance:MedicarePoli cy Number: [id number] Date:2024-03-23 Amado PandeyB: [id number] [place] [address]Vdv: () [facility] 03/23/2024 Secondary Insurance:MedicaidPoli cy Number: [id number] Date:2024-03-23 Amado PandeyB: [id number] [place] [address]Jwy: () [facility] 03/23/2024 Tertiary Insurance:Self PayPolicy Number: Effective Date:2024-03-23 [facility]/30/2024 AMADO Villalba HAYLEYJANETTERESSA: [place] [address]Byb: () Primary Insurance:MEDICAREPoli cy Number: [id number] Date:7180-40-73Aksc Name:Medicare AMADO CARRENO: [id number] [place] [address] [facility] 01/30/2024 Secondary Insurance:MEDICAID [place]: [id number] Date:2020-10-13 AMADO TRANTERESSA: [id number] [place] [address] [facility] EPIC
[2024-12-03 08:57] LABS: Hemoglobin 12.9 g/dL (14.0-18.0)
--- NOTE | 2024-12-03 09:04 | XR_ITS ---
The [address] [address] Patient Name: PAM TRAN MRN: [id number] date: 1965 Sex: M Assigned Patient Location: LAB Current Patient Location: LAB Accession/Order Number: [id number] Exam Date: 12/03/2024 10:16 Report Date: 12/03/2024 10:20 At the request of: SHIELA VALDES APRN Procedure: XR chest 2V PA AND LATERAL CHEST: CLINICAL HISTORY: MCFP amiodarone use COMPARISON: 04/19/2024 A pacemaker is again visualized on the left. Minor scarring and/or atelectasis is noted. There is no developing consolidation. There is new minor blunting of the left costophrenic angle which could be a trace amount of pleural fluid. There is no pneumothorax. The cardiac, hilar and mediastinal silhouettes are within normal limits. There is no vascular congestion. The visualized bony thorax is intact. Mild degenerative changes present at the spine. XR/XR chest 2V IMPRESSION: MINOR ATELECTASIS AND/OR SCARRING. POSSIBLE TINY LEFT EFFUSION. Impression dictated by: Kiersten Mcdermott M.D. 12/03/2024 10:20 AM Dictation Location: [place] [address] Electronically authenticated by: [id number] Y Date: 12/03/2024 10:20
[2024-12-03 09:24] LABS: Alanine Aminotransferase 17 U/L (16-63); Albumin Globulin Ratio 0.7; Albumin Level 3.3 g/dL (3.4-5.0); Alkaline Phosphatase 101 U/L (46-116); Aspartate Amino Transferase 15 U/L (15-37); Bilirubin Direct 0.2 mg/dL (0.0-0.2); Bilirubin Total 0.6 mg/dL (0.2-1.0); Globulin 4.9 g/dL; Thyroid Stimulating Hormone 11.474 uIU/mL (0.358-3.740); Total Protein 8.2 g/dL (6.4-8.2)
--- NOTE | 2024-12-03 09:59 | RT_ITS ---
The [facility] Test Date: 2024-12-03 Pat Name: PAM TRAN Department: Room: - Gender: Male Gluten Settling Tender: Silvestre Kulkarni RRT : 1965 Requested By: Zaina Bob Order Number: [id number] Reading MD: Quintin Maloney Interpretive Statements Pulmonary function testing was completed according to ATS criteria. Findings were considered accurate and reproducible, with exception of DLCO which did not meet ATS standards. Both pre- and post-bronchodilator values utilized for spirometry. BMI: 42 Spirometry (based on pre-bronchodilator values): -FEV1/FVC: Normal @ 83% -FEV1: Moderately reduced @ 53% -FVC: Very severely reduced @ 49% -There is no significant bronchodilator response. Lung volumes by plethysmography: -RV: Reduced @ 67% -TLC: Severely reduced @ 59% Diffusion capacity: -Unable to be performed -Hb 12.9 g/dL Prior PFT from 01/19/2022 for comparison: -FEV1/FVC: Normal @ 82% -FEV1: Reduced @ 68% -FVC: Moderately reduced @ 68% -TLC: Mildly reduced @ 72% -DLCO: Moderate reduction @ 53% -BMI: 47.8 Impressions: -Severe restriction in spirometry confirmed with severe restriction in lung volumes. No diffusion impairment able to be done by patient. When compared to prior testing from 01/19/2022, DLCO was done then which noted a moderately severe reduction, though spirometry and lung volumes were significantly better. Though obesity can cause the reduction in spirometry and lung volumes, her BMI has decreased from 47.8 to 42, arguing against obesity as the cause of the decline in her numbers. This may indicate advancing cardiopulmonary vascular disease or development of interstitial lung disease as can be seen in long-term amiodarone use. Clinical correlation required. Electronically Signed On 12-08-2024 16:39:12 EDT by Quintin Maloney
[2024-12-03] MEDS: ALBUTEROL SULFATE 2.5 MG/3 ML VIAL NEB IH (10:00)
[2024-12-03 10:33] LABS: Free T4 0.96 ng/dL (0.76-1.46)
== END 2024-12-03 08:34 | disposition home or self-care (01) ==
LOC: LAB 08:33
PROVIDERS: PCP Family Medicine; Visit Provider Nurse Practitioner Family
DX: Z79.899 Other long term (current) drug therapy (principal); Z95.0 Presence of cardiac pacemaker
CPT/HCPCS: 36415; 71046; 80076; 84439; 84443; 85018; 94060; 94726; 94729

== ENCOUNTER 2025-03-01 08:25 | Outpatient (REF) | payer MEDICARE, MEDICAID, SELFPAY ==
--- OUTSIDE RECORDS SUMMARY | 2025-03-01 08:28 | XMS_ITS | Encounter Summary ---
Author Organization [facility] Address [address] [place] [address] Care Team Providers Care Rodding Machine Tender Name Role Phone Rc Rojas MD Primary Care Provider [phone] Encounter Details Date Type Department Care Team (Late st Contact Info) Description 09/15/[address] [facility] [address] [place] [id number] Rc Rojas MD [address] [place] [address] Social History Tobacco Use Types Packs/Day Years Used Date Smoking Tobacco: Never Smokeless Tobacco: Never Alcohol Use Standard Drinks/Week Comments Not Currently 1 (1 standard drink = 0.6 oz pure alcohol) monthly or less. Caffeine intake: 1-2 cups per day B1300 Health Literacy Answer Date Recor ded How often do you need to hav e someone help you when you read instructions, pamphlets, or other written material from your doctor or pharmacy? Never 04/01/2024 Social Connection and Isolat ion Panel [NHANES] Answer Date Recorded In a typical week, how many times do you talk on the phone with family, friends, or neighbors? More than three times a week 04/01/2024 How often do you get togethe r with friends or relatives? More than three times a week 04/01/2024 How often do you attend chur ch or mandaeism services? Never 04/01/2024 Do you belong to any clubs o r organizations such as religious groups, unions, fraternal or athletic groups, or school groups? Yes 04/01/2024 How often do you attend meet ings of the clubs or organizations you belong to? More than 4 times per year 04/01/2024 Are you , , di vorced, , never , or living with a partner? Never 04/01/2024 AUDIT-C Answer Date Recorded Q1: How often do you have a drink containing alc ohol? Monthly or less 04/01/2024 Q2: How many drinks containi ng alcohol do you have on a typical day when you are drinking? 1 or 2 04/01/2024 Q3: How often do you have si x or more drinks on one occasion? Never 04/01/2024 Overall Financial Resource Strain (CARDIA) Answe r Date Recorded How hard is it for you to pa y for the very basics like food, housing, medical care, and heating? Not very hard 04/01/2024 [facility] [place] [facility] ional [facility] - Occupational Stress Questionnaire Answer Date Recorded Do you feel stress - tense, restless, nervous, or anxious, or unable to sleep at night because your mind is troubled all the time - these days? To some extent 04/01/2024 Exercise Vital Sign Answer Date Recorde d On average, how many days pe r week do you engage in moderate to strenuous exercise (like a brisk walk)? 1 day 04/01/2024 On average, how many minutes do you engage in exercise at this level? 10 min 04/01/2024 Hunger Vital Sign Answer Date Recorded Within the past 12 months, y ou worried that your food would run out before you got the money to buy more. Never true 04/01/20 24 Within the past 12 months, t he food you bought just didn't last and you didn't have money to get more. Never true 04/01/2024 PRAPARE - Transportation Answer Date Re corded In the past 12 months, has l ack of transportation kept you from medical appointments or from getting medications? No 03/15 In the past 12 months, has l ack of transportation kept you from meetings, work, or from getting things needed for daily living? No 04/01/2024 Housing Stability Vital Sign Answer Zeb e Recorded In the last 12 months, was t here a time when you were not able to pay the mortgage or rent on time? No 04/01/2024 In the past 12 months, how m any times have you moved where you were living? 0 04/01/2024 At any time in the past 12 m [facility], were you homeless or living in a long term (including now)? No 04/01/2024 Sex and Gender Information Value Date Recorded Sex Assigned at Male 12/13/2022 8:38 AM EDT Legal Sex Male 10:11 PM EDT Gender Identity Not on file Sexual Orientation Not on file documented as of this encounter Plan of Treatment Upcoming Encounters Date Type Department Care Team (Late st Contact Info) Description 03/18/2025 1:30 PM EDT Office Visit [facility] [address] [place] [address] Rc Rojas MD [address] [place] [address] documented as of this encounter Goals Goal Patient Goal Type Associated Problems Recent Progress Patient-Stated? Author Help patient manage antidepressant medication Care Plan Patient on antidepressant monitoring plan No MARILU CLARK Baseline PHQ-9 Care Plan Baseline PHQ-9 No MAIRLU CLARK documented as of this encounter Visit Diagnoses Not on filedocumented in this encounter Additional Health Concerns Active Problems Noted Date Diagnosed Date Patient on antidepressant monitoring plan 2023 Baseline PHQ-9 12/30/2023 documented as of this encounter Care Teams Rodding Machine Tender Relationship Specialty Start Date End Date Rc Rojas MD [address] [place] [phone] PCP - General Family Medicine 10/31/23 documented as of this encounter
--- OUTSIDE RECORDS SUMMARY | 2025-03-01 08:28 | XMS_ITS | Clinical Summary ---
Author Organization [facility] Address [address] [place] [address] Care Team Providers Care Powerplant Operator Name Role Phone Unavailable Primary Care Provider Unavailabl e Social History Tobacco Use Types Packs/Day Years Used Date Smoking Tobacco: Never Assessed Sex and Gender Information Value Date Recorded Sex Assigned at Not on file Legal Sex Male 8:47 AM EST Gender Identity Not on file Sexual Orientation Not on file Plan of Treatment Not on file Medical Devices Implanted Type Area Sheet Heater Device Identifier Shelf Expiration Date Model / Serial / Lot [id number]-[id number] -[birth year]14-1982 Implanted:08/1981 (Quantity not on file) Pacemaker [employer] 7000 Versatrax / [id number] /
--- OUTSIDE RECORDS SUMMARY | 2025-03-01 08:28 | XMS_ITS | Clinical Summary ---
Author Organization [employer] tem Address [id number] [address] [place] [address] Care Team Providers Care Offset Printing Operator Name Role Phone Rc Rojas MD Primary Care Provider [phone] Allergies Active Allergy Reactions Criticality Noted Date Comments Penicillins Syncope Medium 05/15/2017 Medications insulin NPH and regular human (NovoLIN 70-30) 100 unit/mL (70-30) injection Inject 0.3 mL (30 Units total) under the skin daily with breakfast. In am before meal Active aspirin 81 mg Take 1 tablet (81 mg total) by mouth in the morning. Active amiodarone (PACERONE) 200 mg tablet Take 1 tablet (200 mg total) by mouth in the morning. Active apixaban (ELIQUIS) 5 mg tablet Take 1 tablet (5 mg total) by mouth in the morning and 1 tablet (5 mg total) before bedtime. Active sertraline (ZOLOFT) 100 mg tablet Take 1 tablet (100 mg total) by mouth in the morning. Active omeprazole (PriLOSEC) 40 mg capsule Take 1 capsule (40 mg total) by mouth in the morning. Active gabapentin (NEURONTIN) 100 mg capsule Take 1 capsule (100 mg total) by mouth nightly. Active midodrine (PROAMATINE) 5 mg tablet Take 2 tablets (10 mg total) by mouth as needed (on HD days). Hold if SBP<130 Active sevelamer (RENVELA) 800 mg tablet Take 2 tablets (1,600 mg total) by mouth in the morning and 2 tablets (1,600 mg total) at noon and 2 tablets (1,600 mg total) in the evening. Take with meals. Active docusate sodium (COLACE) 100 mg capsule Take 1 capsule (100 mg total) by mouth every 12 (twelve) hours. 60 capsule 3 Active guaiFENesin (MUCINEX) 600 mg tablet extended release 12hr Take 1 tablet (600 mg total) by mouth every 12 (twelve) hours. Active levothyroxine (SYNTHROID, LEVOTHROID) 50 MCG tablet Take 1 tablet (50 mcg total) by mouth in the morning. Active metoprolol succinate XL (TOPROL XL) 25 mg 24 hr tablet Take 0.5 tablets (12.5 mg total) by mouth in the morning. Active B complex-vitamin C-folic acid (DIALYVITE) 100-1 mg tablet Take 1 tablet by mouth in the morning. Active cholecalciferol, vitamin D3, 2,000 units tablet Take 1 tablet (2,000 Units total) by mouth in the morning. Active darbepoetin antione-polysorbate (ARANESP) 100 mcg/0.5 mL syringeIndicatio ns:ESRD on Dialysis,anemia due to renal failure Inject 0.5 mL (100 mcg total) under the skin once a week Indications: ESRD on Dialysis, anemia due to kidney failure. Active sodium hypochlorite (DAKIN'S 1/4 STRENGTH) 0.125 % solution external solution Apply 1 Application topically in the morning and 1 Application before bedtime. Active Active Problems Problem Noted Date Diagnosed Date Skin ulcer of left thigh with fat layer exposed 05/21/2024 Skin ulcer of buttock, limited to breakdown of s kin 05/21/2024 Skin ulcer of left thigh, with unspecified sever ity 05/21/2024 Deep tissue injury 05/21/2024 Intertriginous skin ulcer 05/21/2024 ESRD (end stage renal disease) 05/20/2024 Abnormal gait 12/20/2022 01/02/2023 Callus of foot 12/20/2022 01/02/2023 Diabetic peripheral neuropathy 12/20/2022 0 01/02/2023 Disorder associated with type 2 diabetes mellitu s 12/20/2022 01/02/2023 Hammer toe 12/20/2022 01/02/2023 Onychodystrophy 12/20/2022 01/02/2023 Onychomycosis 12/20/2022 01/02/2023 Dermatitis associated with moisture 10/17/2022 Surgical wound, non healing 08/22/2022 Hereditary and idiopathic neuropathy, unspecifie d 08/12/2022 12/19/2022 Abnormal posture 08/03/2022 12/19/2022 Depression, unspecified 08/03/2022 12/20/19 Essential (primary) hypertension 08/03/2022 12/19/2022 Gastro-esophageal reflux disease without esophag itis 08/03/2022 12/19/2022 Generalized muscle weakness 08/03/202201/2023 Hemodialysis-associated hypotension 08/03/2022 12/19/2022 Hyperlipidemia, unspecified 08/03/202201/2023 lobsterman (current) use of oral hypoglycemic gabi gs 08/03/2022 12/19/2022 Other abnormalities of gait and mobility 023 12/19/2022 Pain, unspecified 08/03/2022 12/19/2022 Type 2 diabetes mellitus with unspecified compli cations 08/03/2022 12/19/2022 Unspecified atrial fibrillation 08/03/2022 12/19/2022 Necrotizing fasciitis 07/22/2022 End-stage renal disease 11/02/2020 ESRD (end stage renal disease) on dialysis Encounters Date Type Department Care Team Description 02/11/2025 [facility] [address] [address] Shelby Escamilla 12/01/2024 Lab Requisition [facility] [address] [place] [address] Pia Lam, MEAL ATTENDANT-TELEVISION REPAIR TEACHER Bacteremia; Other bacterial infections of unspecified site; End stage renal disease ([facility]); Dependence on renal dialysis; Presence of functional implant, unspecified from Last 3 Months Immunizations No known immunizations Family History Relation Name Status Comments Father Mother Social History Tobacco Use Types Packs/Day Years Used Date Smoking Tobacco: Never Smokeless Tobacco: Never Tobacco Cessation:Counseling Given: Not Answered Alcohol Use Standard Drinks/Week Comments Not Currently 0 (1 standard drink = 0.6 oz pur e alcohol) rarely [facility] Utilities Answer Date Recorded In the past 12 months has th e electric, gas, oil, or water company threatened to shut off services in your home? No 05/20/2024 PRAPARE - Transportation Answer Date Re corded In the past 12 months, has l ack of transportation kept you from medical appointments or from getting medications? No 12/2023 In the past 12 months, has l ack of transportation kept you from meetings, work, or from getting things needed for daily living? No 05/20/2024 Housing Instability Answer Date Recorde d Are you worried or concerned that in the next two months you may not have stable housing that you own, rent or stay in as a part of a household? No 05/20/2024 Childcare Answer Date Recorded Childcare Unknown 12/24/2018 Employment Answer Date Recorded Employment Unknown 12/24/2018 Hunger Screening Answer Date Recorded Within the past 12 months we worried whether our food would run out before we got money to buy more. Never True 09/01/2024 Within the past 12 months th e food we bought just didn't last and we didn't have money to get more. Never True 09/01/2024 Purpose - Life Answer Date Recorded Purpose and direction in life Unknown Sex and Gender Information Value Date Recorded Sex Assigned at Not on file Legal Sex Male 11:43 AM EDT Gender Identity Not on file Sexual Orientation Not on file Last Filed Vital Signs Vital Sign Reading Time Taken Comments Blood Pressure 96/45 09/02/2024 1:15 AM EST Pulse 76 09/01/2024 7:45 PM EST Temperature 36.6 C (97.9 F) 09/01/2024 7:45 PM EST Respiratory Rate 18 09/01/2024 7:45 PM EST Oxygen Saturation 94% 09/02/2024 1:15 AM EST Inhaled Oxygen Concentration - - Weight 127 kg (280 lb) 09/01/2024 7:45 PM EST Height 175.3 cm (5' 9 ) 09/01/2024 7:45 PM EST Body Mass Index 41.35 09/01/2024 7:45 PM EST Plan of Treatment Upcoming Encounters Date Type Department Care Team (Late st Contact Info) Description 03/30/2025 11:00 AM EDT Office Visit [facility] Pulmonary/Sleep Medicine [address] [address] Melany Landa DO [address] [address] Health Maintenance Due Date Last Done Comments Diabetic Ophthalmology Exam 1964 Depression Screening 1976 Adult BMI Follow Up Plan 01/25/1982 Diabetic Foot Exam 01/25/1982 Zoster (Shingles) Vaccine (1 of 2) 01/25/2014 COVID-19 Vaccine ( season) 03/15/202404/2021, 09/24/2020 Influenza Vaccine 03/15/2025 Adult BMI Screening 09/01/2025 09/01/2024 Tobacco Screening 09/01/2025 09/01/2024 DTaP,Tdap and Td Vaccines (2 - Td or Tdap) 04/30/2034 04/30/2024 Goals Goal Patient Goal Type Associated Problems Recent Progress Patient-Stated? Author home General Yes Alondra Dawson, RN Note: Evaluation of progress towards goal: patient stated would like to go home with home care. SNF General Yes Amber Soto LSW Note: Evaluation of progress towards goal: Return to [facility] Medical Devices Implanted Type Area Security Sme Device Identifier Shelf Expiration Date Model / Serial / Lot Pacemaker [employer] RHY[employer]M DEVICES [id number] [id number] / / Procedures Procedure Name Priority Date/Time Associated Diagnosis Comments CBC WITH AUTO DIFFERENTIAL Routine 12/01/2024 2:00 PM EDT Bacteremia Other bacterial infections of unspecified site End stage renal disease ([facility]-HCC) Dependence on renal dialysis Presence of functional implant, unspecified from Last 3 Months Results * (ABNORMAL) CBC auto differential (12/01/2024 2:00 PM EDT) WBC 6.8 4 - 11 x10E9/L 12/01/2024 3:12 PM EDT [facility] RBC Count 3.73(L) 4.1 - 5.7 X10E12/L 12/01/2024 3:12 PM EDT [facility] Hemoglobin 12.1(L) 13 - 17 g/dL 12/01/2024 3:12 PM EDT [facility] Hematocrit 36.9(L) 39 - 50 % 12/01/2024 3:12 PM EDT [facility] MCV 99 80 - 100 fL 12/01/2024 3:12 PM EDT [facility] MCH 32.6 27 - 34 pg 12/01/2024 3:12 PM EDT [facility] MCHC 32.9 32 - 36 g/dL 12/01/2024 3:12 PM EDT [facility] RDW 16.3(H) 11.5 - 15 % 12/01/2024 3:12 PM EDT [facility] Platelet Count 178 150 - 450 X10E9/L 12/01/2024 3:12 PM EDT [facility] MPV 9.8 7 - 12 fL 12/01/2024 3:12 PM EDT [facility] Neutrophils % 61.7 % 12/01/2024 3:12 PM EDT [facility] Lymphocytes % 23.0 % 12/01/2024 3:12 PM EDT [facility] Monocytes % 5.3 % 12/01/2024 3:12 PM EDT [facility] Eosinophils % 9.1 % 12/01/2024 3:12 PM EDT [facility] Basophils % 0.9 % 12/01/2024 3:12 PM EDT [facility] Neutrophils Absolute (A) 4.2 1.5 - 6.6 10*3/uL 12/01/2024 3:12 PM EDT [facility] Lymphocytes Absolute 1.6 1.0 - 3.5 10*3/uL 12/01/2024 3:12 PM EDT [facility] Monocytes Absolute 0.4 0.0 - 0.9 10*3/uL 12/01/2024 3:12 PM EDT [facility] Eosinophils Absolute 0.6(H) 0.0 - 0.4 10*3/uL 12/01/2024 3:12 PM EDT [facility] Basophils Absolute 0.1 0.0 - 0.2 10*3/uL 12/01/2024 3:12 PM EDT [facility] Differential Type AUTOMATED DIFFERENTIAL 12/01/2024 3:12 PM EDT [facility] Blood Venous blood / Unknown 12/01/2024 2:00 PM EDT 12/01/2024 3:05 PM EDT us Pia Lam MEAL ATTENDANT-TELEVISION REPAIR TEACHER LAB BLOOD ORDERABLES Final Result Performing Organization Address City/State/[facility] de Phone Number [facility] [address] [place] [address], from Last 3 Months Insurance MEDICARE MEDICARE Advance Directives * Full Code (Latest Code Status on File) Date Activated Date Inactivated Comments 05/20/2024 12:57 PM 05/28/2024 7:27 PM * Full Code Date Activated Date Inactivated Comments 07/22/2022 7:21 PM 08/03/2022 7:53 AM Care Teams Offset Printing Operator Relationship Specialty Start Date End Date Rc Rojas MD [address] [place] [address] PCP - General 05/15/17
--- OUTSIDE RECORDS SUMMARY | 2025-03-01 08:28 | XMS_ITS ---
Author Organization [employer] Address [id number] [address] [place] [address] Care Team Providers Care Research Pharmacist Name Role Phone Rc Rojas MD Primary Care Provider [phone] Dialysis Access Sites Type Status Location Placement Date Removal Da te Hemodialysis Fistula/Graft Right Forearm Active Right Forearm - Anterior Procedures Procedure Name Priority Date/Time Associated Diagnosis Comments CBC WITH AUTO DIFFERENTIAL Routine 12/01/2024 2:00 PM EDT Bacteremia Other bacterial infections of unspecified site End stage renal disease (CMS-HCC) Dependence on renal dialysis Presence of functional implant, unspecified from Last 3 Months Allergies Active Allergy Reactions Criticality Noted Date [...] mg total) by mouth in the morning. 4 Active B complex-vitamin C-folic acid (DIALYVITE) 100-1 mg tablet Take 1 tablet by mouth in the morning. 4 Active cholecalciferol, vitamin D3, 2,000 units tablet Take 1 tablet (2,000 Units total) by mouth in the morning. 4 Active darbepoetin antione-polysorbate (ARANESP) 100 mcg/0.5 mL syringeIndicatio ns:ESRD on Dialysis,anemia due to renal failure Inject 0.5 mL (100 mcg total) under the skin once a week Indications: ESRD on Dialysis, anemia due to kidney failure. 4 Active sodium hypochlorite (DAKIN'S 1/4 STRENGTH) 0.125 % solution external solution Apply 1 Application topically in the morning and 1 Application before bedtime. 4 Active Active Problems Problem Noted Date Diagnosed [...] esophag itis 08/03/2022 12/19/2022 Generalized muscle weakness 08/03/2022 06/0 01/2023 Hemodialysis-associated hypotension 08/03/2022 12/19/2022 Hyperlipidemia, unspecified 08/03/2022 06/0 01/2023 supervisor intermediates (current) use of oral hypoglycemic gabi gs 08/03/2022 12/19/2022 Other abnormalities of gait and mobility 023 12/19/2022 Pain, unspecified 08/03/2022 12/19/2022 Type 2 diabetes mellitus with unspecified compli cations 08/03/2022 12/19/2022 Unspecified atrial fibrillation 08/03/2022 12/19/2022 Necrotizing fasciitis 07/22/2022 End-stage renal disease 11/02/2020 ESRD (end stage renal disease) on dialysis Immunizations No known immunizations Social History Tobacco Use Types Packs/Day Years Used Date Smoking Tobacco: Never Smokeless Tobacco: Never Tobacco Cessation:Counseling Given: Not Answered Alcohol Use Standard Drinks/Week Comments Not Currently 0 (1 standard drink = 0.6 oz pur e alcohol) rarely [facility] Utilities Answer Date Recorded In the past 12 months has [facility] [employer], oil, or water [employer] threatened to shut off services in your [...] Mass Index 41.35 09/01/2024 7:45 PM EST Results * (ABNORMAL) CBC auto differential (12/01/2024 2:00 PM EDT) [facility] WBC 6.8 4 - 11 x10E9/L 12/01/2024 3:12 PM EDT [facility] RBC Count 3.73(L) 4.1 - 5.7 X10E12/L 12/01/2024 3:12 PM EDT [facility] Hemoglobin 12.1(L) 13 - 17 g/dL 12/01/2024 3:12 PM EDT [facility] Hematocrit 36.9(L) 39 - 50 % 12/01/2024 3:12 PM EDT [facility] MCV 99 80 - 100 fL 12/01/2024 3:12 PM EDT [facility] MCH 32.6 27 - 34 pg 12/01/2024 3:12 PM EDT [facility] MCHC 32.9 32 - 36 g/dL 12/01/2024 3:12 PM EDT [facility] RDW 16.3(H) 11.5 - 15 % 12/01/2024 3:12 PM EDT [facility] Platelet Count 178 150 - 450 X10E9/L 12/01/2024 3:12 PM EDT [facility] MPV 9.8 7 - 12 fL 12/01/2024 3:12 PM EDT [facility] Neutrophils % 61.7 % 12/01/2024 3:12 PM EDT [facility] Lymphocytes % 23.0 % 12/01/2024 3:12 PM EDT [facility] Monocytes % 5.3 % 12/01/2024 3:12 PM EDT [facility] Eosinophils % 9.1 % 12/01/2024 3:12 PM EDT [facility] Basophils % 0.9 % 12/01/2024 3:12 PM EDT [facility] Neutrophils Absolute (A) 4.2 1.5 - 6.6 10*3/uL 12/01/2024 3:12 PM EDT [facility] Lymphocytes Absolute 1.6 1.0 - 3.5 10*3/uL 12/01/2024 3:12 PM EDT [facility] Monocytes Absolute 0.4 0.0 - 0.9 10*3/uL 12/01/2024 3:12 PM EDT [facility] Eosinophils Absolute 0.6(H) 0.0 - 0.4 10*3/uL 12/01/2024 3:12 PM EDT [facility] Basophils Absolute 0.1 0.0 - 0.2 10*3/uL 12/01/2024 3:12 PM EDT [facility] Differential Type AUTOMATED DIFFERENTIAL 12/01/2024 3:12 PM EDT [facility] Blood Venous blood / Unknown 12/01/2024 2:00 PM EDT 12/01/2024 3:05 PM EDT us Pia Lam MANAGER PIPELINE-HYDROLOGICAL TECHNICAL OFFICER LAB BLOOD ORDERABLES Final Result [facility] [address] [place] [address], [place] from Last 3 Months
--- OUTSIDE RECORDS SUMMARY | 2025-03-01 08:28 | XMS_ITS | Encounter Summary ---
Author Organization [facility] Address [address] [place] [address] Care Team Providers Care Algebraist Name Role Phone Rc Rojas MD Primary Care Provider [phone] Reason for Visit * Reason Comments Med Refill Encounter Details Date Type Department Care Team (Late st Contact Info) Description 10/06/2024 Refill [facility] [address] [place] [address] Rc Rojas MD [address] [place] [address] Microalbuminuria due to type 2 diabetes mellitus (HCC) Social History Tobacco Use Types Packs/Day Years [...] 04/01/2024 How often do you attend chur or voodoo services? Never 04/01/2024 Do you belong to any clubs o r organizations such as muslim groups, unions, fraternal or athletic groups, or [...] care, and heating? Not very hard 04/01/2024 [facility] Occupat ional [facility] - Occupational Stress Questionnaire Answer Date Recorded [...] any time in the past [address] [facility], were you homeless or living in a chcf (including now)? No 04/01/2024 Sex and Gender Information Value Date Recorded Sex Assigned at Male 12/13/2022 8:38 AM EDT Legal Sex Male 10:11 PM EDT Gender Identity Not on file Sexual Orientation Not on file documented as of this encounter Miscellaneous Notes * Telephone Encounter - MARILU CLARK - 10/06/2024 9:27 AM EDT MEDICATION SENT TO [facility] documented in this encounter Plan of Treatment Upcoming Encounters Date Type Department Care Team (Late st Contact Info) Description 03/18/2025 1:30 PM EDT Office Visit [facility] [address] [place] [address] Rc Rojas MD [address] [place] [address] documented as of this encounter Goals Goal Patient Goal Type Associated Problems Recent Progress Patient-Stated? 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
--- OUTSIDE RECORDS SUMMARY | 2025-03-01 08:28 | XMS_ITS | Encounter Summary ---
Author Organization [facility] Address [facility] [place] [id number] Care Team Providers Care Statistical Methods Teacher Name Role Phone Unavailable Primary Care Provider Unavailabl e Source Comments In the event this information is protected by the Federal Confidentiality of Alcohol and Drug AbusePatient Records regulations: The Federal rules restrict any use of the information to criminally investigate or prosecute any alcohol or drug abuse patient.[facility] Encounter Details Date Type Department Care Team (Late st Contact Info) Description 07/26/2023 Lab Requisition [facility] [place] [id number] Tiesha George, LAURA [address] [phone] Social History Tobacco Use Types Packs/Day Years Used Date Smoking Tobacco: Never Assessed Sex and Gender Information Value Date Recorded Sex Assigned at Not on file Legal Sex Male 8:47 AM EST Gender Identity Not on file Sexual Orientation Not on file documented as of this encounter Plan of Treatment Not on file documented as of this encounter Procedures Procedure Name Priority Date/Time Associated Diagnosis Comments ANTIMICROBIAL SUSCEPT-ANAEROBE Routine 07/19/2023 12:00 PM EST ORGANISM SEAN Routine 07/19/2023 12:00 PM EST documented in this encounter Results * ANTIMICROBIAL SUSCEPT-ANAEROBE (07/19/2023 12:00 PM EST) Final Report SEE NOTE 08/04/2023 12:57 PM EST [facility] Comment: Prevotella timonensis Organism identified by client INTERPRETIVE INFORMATION: Anaerobe Susceptibility Panel Units = ug/mL ANAMIC Piperacillin/Tazobactam <=1/4 None Amoxicillin/Clavulanate <=.12/.06 None Metronidazole 2 None Ertapenem <=0.25 None Interpretive Information See Note At the present time there are no CLSI guidelines for performance and/or interpretation of susceptibility testing for anaerobes other than Bacteroides fragilis group by the broth microdilution method. Unable to provide interpretation for SEAN values. Susceptibility performed by non-standardized methodology. Interpret results with caution. Performed By: [facility] [address] [place] [address] Truck Dock Material Mover: Wenceslao Massey MD, PhD CLIA Number: [id number] Micro Specimen OTHER / Unknown 07/19/2023 12:00 PM EST 07/26/2023 3:50 AM EST Tiesha George NP LABORATORY Final Result Performing Organization Address City/[facility]/ZIP Co de Phone Number [facility] [address] [place] [address] * (ABNORMAL) ORGANISM SEAN (07/19/2023 12:00 PM EST) Culture, Organism SEAN Result Prevotella timonensis(A) MINIMUM INHIBITORY CONCENTRATION ([place]) 08/09/2023 11:20 AM EST [facility] Comment: Identification performed by client. Susceptibility testing has been completed by [facility]. Beta Lactamase Negative 08/09/2023 11:20 AM EST [facility] Micro Specimen OTHER / Unknown 07/19/2023 12:00 PM EST 07/26/2023 3:50 AM EST Tiesha George NP LABORATORY Final Result [facility] [address] documented in this encounter Visit Diagnoses Not on filedocumented in this encounter
--- OUTSIDE RECORDS SUMMARY | 2025-03-01 08:29 | XMS_ITS | Encounter Summary ---
Author Organization [facility] Address [address] [place] [address] Care Team Providers Care Street Roller Engineer Name Role Phone Rc Rojas MD Primary Care Provider Reason for Visit * Reason Comments Med Refill Encounter Details Date Type Department Care Team (Late st Contact Info) Description 02/22/2023 Refill [facility] Cardiology [address] [place] [phone] Zaina Bob CNP [address] [place] [address] Paroxysmal atrial fibrillation (CMS/HCC) Social History Tobacco Use Types Packs/Day Years Used Date Smoking Tobacco: Never Smokeless Tobacco: Never Alcohol Use Standard Drinks/Week Comments Yes 0 (1 standard drink = 0.6 oz pur e alcohol) Sex and Gender Information Value Date Recorded Sex Assigned at Male 02/12/2025 2:03 PM EDT Legal Sex Male 12:01 AM EDT Gender Identity Male 02/12/2025 2:03 PM EDT Sexual Orientation Heterosexual or Straight 07/2024 2:03 PM EDT documented as of this encounter Plan of Treatment Upcoming Encounters Date Type Department Care Team (Late st Contact Info) Description 04/06/2025 2:30 PM EDT Office Visit [facility] Heart at [facility] [address] [place] [address] Ezra Jean Baptiste MD [address] [place] [address] 06/01/2025 10:00 AM EST Follow-Up [facility] Infectious Disease [address] [place] [address] Pia Lam, DISTILLERY LABORER [address] [facility] [address] documented as of this encounter Visit Diagnoses Diagnosis Paroxysmal atrial fibrillation (CMS/HCC) Atrial fibrillation documented in this encounter Care Teams Street Roller Engineer Relationship Specialty Start Date End Date Rc Rojas MD [address] [place] [address] PCP - General 07/24/22 documented as of this encounter
--- OUTSIDE RECORDS SUMMARY | 2025-03-01 08:29 | XMS_ITS | Encounter Summary ---
Author Organization [facility] Address [address] [place] [address] Care Team Providers Care Armhole Raiser Lockstitch Name Role Phone Rc Rojas MD Primary Care Provider [phone] Rc Rojas MD Primary Care Provider [phone] Encounter Details Date Type Department Care Team (Late st Contact Info) Description 08/07/2023 Orders Only [facility] [address] [place] [address] Yunier Decker MD [address] [place] [phone] Social History Tobacco Use Types Packs/Day Years Used Date Smoking Tobacco: Never Smokeless Tobacco: Never Alcohol Use Standard Drinks/Week Comments Not Currently 1 (1 standard drink = 0.6 oz pure alcohol) monthly or less. Caffeine intake: 1-2 cups per day Sex and Gender Information Value Date Recorded Sex Assigned at Male 12/13/2022 8:38 AM EDT Legal Sex Male 10:11 PM EDT Gender Identity Not on file Sexual Orientation Not on file documented as of this encounter Plan of Treatment Upcoming Encounters Date Type Department Care Team (Late st Contact Info) Description 03/18/2025 1:30 PM EDT Office Visit [facility] [address] [place] [address] Rc Rojas MD [address] [place] [address] documented as of this encounter Procedures Procedure Name Priority Date/Time Associated Diagnosis Comments HEMOGLOBIN Routine 08/07/2023 9:21 AM EST documented in this encounter Results * Hemoglobin (08/07/2023 9:21 AM EST) Blood Venous blood specimen / Unknown Yunier Decker MD LAB BLOOD ORDERABLES Final Resul t documented in this encounter Visit Diagnoses Not on filedocumented in this encounter Care Teams Armhole Raiser Lockstitch Relationship Specialty Start Date End Date Rc Rojas MD PCP - General Family Medicine 01/24/23 10/30/23 Rc Rojas MD [address] [place] [address] PCP - General Family Medicine 10/31/23 documented as of this encounter
--- OUTSIDE RECORDS SUMMARY | 2025-03-01 08:29 | XMS_ITS | Encounter Summary ---
Author Organization [facility] Address [address] [place] [address] Care Team Providers Care Correctional Agency Director Name Role Phone Rc Rojas MD Primary Care Provider [phone] Encounter Details Date Type Department Care Team (Late st Contact Info) Description 12/19/2023 Orders Only [facility] [address] [place] [address] Jazmyne Arizmendi MD [address] [facility] [place] [address] Social History Tobacco Use Types Packs/Day Years [...] 1:30 PM EDT Office Visit [facility] [address] [place] [address] Rc Rojas MD [address] [place] [address] documented as of this encounter Procedures Procedure Name Priority Date/Time Associated Diagnosis Comments ECHO TRANSTHORACIC W/ DOPPLER Routine 12/19/2023 1:18 PM EDT documented in this encounter Results * ECHO TRANSTHORACIC W/ DOPPLER (12/19/2023 1:18 PM EDT) Anatomical Region Laterality Modality Radiographic Kaela ging Jazmyne Arizmendi MD IMG XR PROCEDURES Final Re sult documented in this encounter Visit Diagnoses Not on filedocumented in this encounter Care Teams Correctional Agency Director Relationship Specialty Start Date End Date Rc Rojas MD [address] [place] [address] PCP - General Family Medicine 10/31/23 documented as of this encounter
--- OUTSIDE RECORDS SUMMARY | 2025-03-01 08:29 | XMS_ITS | Encounter Summary ---
Author Organization [facility] Address [address] [place] [address] Care Team Providers Care Fur Glazer Name Role Phone Rc Rojas MD Primary Care Provider [phone] Encounter Details Date Type Department Care Team (Late st Contact Info) Description 12/30/2024 Results Follow-Up [facility] [address] [place] [address] Zaina Bob CNP [address] [place] [phone] Pulmonary function testing Social History Tobacco Use Types Packs/Day Years Used Date Smoking Tobacco: Never Smokeless Tobacco: Never Alcohol Use Standard Drinks/Week Comments Yes 0 (1 standard drink = 0.6 oz pur e alcohol) occasional [place] Safety & Environment Answer Date Rec orded Fear of Current or Ex-Partner Not on file Emotionally Abused Not on file 09/05/2023 Physically Abused Not on file 09/05/2023 Sexually Abused Not on file 09/05/2023 Physically or Sexually Abused Not on file Sex and Gender Information Value Date Recorded Sex Assigned at Male 02/12/2025 2:03 PM EDT Legal Sex Male 12:01 AM EDT Gender Identity Male 02/12/2025 2:03 PM EDT Sexual Orientation Heterosexual or Straight 07/2024 2:03 PM EDT documented as of this encounter Miscellaneous Notes * Result Encounter Note - Zaina Bob CNP - 12/30/2024 3:05 PM EDT Yes, please. Thanks documented in this encounter Plan of Treatment Upcoming Encounters Date Type Department Care Team (Late st Contact Info) Description 04/06/2025 2:30 PM EDT Office Visit [facility] [address] [place] [address] Ezra Jean Baptiste MD [address] [place] [address] 06/01/2025 10:00 AM EST Follow-Up [facility] [address], [address] [place] [phone] Pia Lam, KIRK [address] [facility]/[place] [address] documented as of this encounter Visit Diagnoses Not on filedocumented in this encounter Care Teams Fur Glazer Relationship Specialty Start Date End Date Rc Rojas MD [address] [place] [address] PCP - General 07/24/22 documented as of this encounter
--- OUTSIDE RECORDS SUMMARY | 2025-03-01 08:29 | XMS_ITS | Encounter Summary ---
Author Organization [facility] Address [address] [place] [address] Care Team Providers Care Automobile Rental Representative Name Role Phone Rc Rojas MD Primary Care Provider [phone] Encounter Details Date Type Department Care Team (Late st Contact Info) Description 12/19/2023 Clinisync Result Encounter [facility] External Department Unsolicited Provider, Generic External Data Social History Tobacco Use Types Packs/Day Years [...] Office Visit [facility] [address] [place] [address] Rc Rojas MD [address] [place] [address] documented as of this encounter Procedures Procedure Name Priority Date/Time Associated Diagnosis Comments CA ECHO DOPPLER COMPLETE 12/19/2023 1:11 PM EDT documented in this encounter Results * CA ECHO DOPPLER COMPLETE (12/19/2023 1:11 PM EDT) Anatomical Region Laterality Modality Other 12/19/2023 1:11 PM EDT Narrative 12/19/2023 1:12 [place] [address] Cardiology Report Signed Patient: PAM GRAHAM MR#: [id number] : 1965 Acct:[id number] Age/Sex: 58 / M ADM Date: 12/17/23 Loc: CARD Attending Dr: KRIS DENSON Ordering Physician: KRIS DENSON Date of Service: 12/17/23 Procedure(s): CA echo doppler complete Accession Number(s): [id number] cc: KRIS DENSON; Rc Rojas M.D. Patient Name: PAM GRAHAM MR#: [id number] : 1965 Exam Date: 12/17/2023 Ordering Doctor: KRIS DENSON M.D. ECHOCARDIOGRAM REPORT PROCEDURE: CA ECHO DOPPLER COMPLETE INDICATIONS: Abnormal EKG COMPARISON: None. DESCRIPTION: COMPLETE ECHOCARDIOGRAM Real-time transthoracic echocardiography with 2D, M-mode, spectral and color flow Doppler performed. QUALITY: Technical quality was good. LEFT VENTRICLE: Normal chamber size. Mild to moderate concentric hypertrophy. Global left ventricular systolic function is normal. LV EF: Estimated left ventricular ejection fraction is 60% DIASTOLIC: Normal diastolic function. ATRIAL SEPTUM: LEFT ATRIUM: Normal chamber size. RIGHT ATRIUM: Mild dilatation. RIGHT VENTRICLE: Mild dilatation. Normal right ventricular systolic function. Pacer wire present. TRICUSPID VALVE: Normal mobility and thickness. No stenosis with trivial regurgitation. No evidence of pulmonary hypertension. RVSP 26 mmHg MITRAL VALVE: Normal mobility and thickness. No evidence of mitral valve stenosis. There is no mitral annular calcification. Trivial mitral regurgitation. AORTIC VALVE: Normal trileaflet appearance. Thickened aortic valve. Normal leaflet mobility. No evidence of aortic valve stenosis. No aortic regurgitation. AORTIC ROOT: Normal diameter and appearance. PULMONIC VALVE: Normal thickness and mobility. No stenosis. PERICARDIUM: No evidence of pericardial effusion. IVC: Collapses with inspirations. Normal size. PLEURA: CONCLUSION: 1. Mild to moderate concentric left ventricular hypertrophy with normal systolic function. LVEF is estimated at 60%. 2. Normal diastolic function. 3. Mild right ventricular dilatation with normal systolic function. 4. Mildly dilated right atrium. 5. No significant valvular dysfunction. 6. Normal right-sided pressures. Adult Echocardiography Procedure Report Left Ventricle LVEDD (3.7 - 5.6 cm): 5.15 cm LVESD (2.2 - 4.0 cm): 3.27 cm LVIVS thickness (0.6 - 1.2 cm): 1.24 cm LVPW thickness (0.5 - 1.0 cm): 1.46 cm e': 0.16 m/s E - e': 4.94 LVOT Max Gradient: 2.92 mm[Hg] LVOT Area (cm2): 0.85 m/s Peak Velocity (LVOT): 0.85 m/s Mean Velocity (LVOT): 0.58 m/s LVOT Diameter 1.97 cm Left Ventricular Ejection Fraction: 60 % Left Atrium LA Volume Index (2D A2C): 20.15 ml/m2 Left Atrium Systolic Dimension: 3.36 cm Mitral Valve MV E to A Ratio: 1.44 Mitral Valve A-Wave Peak Velocity: 0.55 m/s Mitral Valve E-Wave Peak Velocity: 0.80 m/s Right Ventricle RV Internal Diastolic Dimension: 4.69 cm Aorta AO Root Diam: 3.28 cm Ascending Ao Diam: 2.87 cm Aortic Valve AoV Area (Peak Hawk): 2.13 cm2, 2.13 cm2 AoV Area (VTI): 2.04 cm2, 2.04 cm2 Peak Velocity(Antegrade Flow): 1.22 m/s Peak Gradient(Antegrade Flow): 5.99 mm[Hg] Mean Velocity(Antegrade Flow): 0.83 m/s Mean Gradient(Antegrade Flow): 3.22 mm[Hg] Velocity Time Integral: 26.76 cm Tricuspid Valve Peak Velocity (Regurgitant Flow): 2.30 m/s, 2.38 m/s, 2.33 m/s Pulmonic Valve Mean Gradient: 1.99 mm[Hg], 2.43 mm[Hg] Mean Velocity: 0.66 m/s, 0.72 m/s Peak Velocity: 1.03 m/s Peak Gradient: 3.47 mm[Hg], 5.06 mm[Hg] Right Atrium Right Atrium Systolic Pressure: 102.74 ml, 102.74 ml Dictated by: Anatoliy Tapia M.D. on 12/19/2023 at 13:07 Approved by: Anatoliy Tapia M.D. on 12/19/2023 at 13:11 Dictated By: ANATOLIY TAPIA Signed By: 12/19/23 1312 DD/ 1311 TD/TT: Manager Women: Procedure Note Radiology, Radiologist, MD - 12/19/2023 [place] [address] Cardiology Report Signed Patient: PAM GRAHAM LMR#: [id number] : 1965Acct:[id number] Age/Sex: 58 / MADM Date: 12/17/23 Loc: CARD Attending Dr: KRIS DENSON Ordering Physician: KRIS DENSON Date of Service: 12/17/23 Procedure(s): CA echo doppler complete Accession Number(s): [id number] cc: SANDRA DENSON Marc M.D. Patient Name: PAM GRAHAM MR#: [id number] : 1965 Exam Date: 12/17/2023 Ordering Doctor: KRIS DENSON M.D. ECHOCARDIOGRAM REPORT PROCEDURE: CA ECHO DOPPLER COMPLETE INDICATIONS: Abnormal EKG COMPARISON: None. DESCRIPTION: COMPLETE ECHOCARDIOGRAM Real-time transthoracic echocardiography with 2D, M-mode, spectral and color flow Dopplerperformed. QUALITY: Technical quality was good. LEFT VENTRICLE: Normal chamber size. Mild to moderate concentric hypertrophy. Global left ventricular systolic function is normal. LV EF: Estimated left ventricular ejection fraction is 60% DIASTOLIC: Normal diastolic function. ATRIAL SEPTUM: LEFT ATRIUM: Normal chamber size. RIGHT ATRIUM: Mild dilatation. RIGHT VENTRICLE: Mild dilatation. Normal right ventricular systolic function. Pacer wire present. TRICUSPID VALVE: Normal mobility and thickness. No stenosis withtrivial regurgitation. No evidence of pulmonary hypertension. RVSP 26 mmHg MITRAL VALVE: Normal mobility and thickness. No evidence of mitralvalve stenosis. There is no mitral annular calcification. Trivial mitral regurgitation. AORTIC VALVE: Normal trileaflet appearance. Thickened aortic valve. Normal leaflet mobility. No evidence of aortic valve stenosis. No aortic regurgitation. AORTIC ROOT: Normal diameter and appearance. PULMONIC VALVE: Normal thickness and mobility. No stenosis. PERICARDIUM: No evidence of pericardial effusion. IVC: Collapses with inspirations. Normal size. PLEURA: CONCLUSION: 1. Mild to moderate concentric left ventricular hypertrophy with normal systolic function. LVEF is estimated at 60%. 2. Normal diastolic function. 3. Mild right ventricular dilatation with normal systolic function. 4. Mildly dilated right atrium. 5. No significant valvular dysfunction. 6. Normal right-sided pressures. Adult Echocardiography Procedure Report Left Ventricle LVEDD (3.7 - 5.6 cm): 5.15 cm LVESD (2.2 - 4.0 cm): 3.27 cm LVIVS thickness (0.6 - 1.2 cm): 1.24 cm LVPW thickness (0.5 - 1.0 cm): 1.46 cm e': 0.16 m/s E - e': 4.94 LVOT Max Gradient: 2.92 mm[Hg] LVOT Area (cm2): 0.85 m/s Peak Velocity (LVOT): 0.85 m/s Mean Velocity (LVOT): 0.58 m/s LVOT Diameter 1.97 cm Left Ventricular Ejection Fraction: 60 % Left Atrium LA Volume Index (2D A2C): 20.15 ml/m2 Left Atrium Systolic Dimension: 3.36 cm Mitral Valve MV E to A Ratio: 1.44 Mitral Valve A-Wave Peak Velocity: 0.55 m/s Mitral Valve E-Wave Peak Velocity: 0.80 m/s Right Ventricle RV Internal Diastolic Dimension: 4.69 cm Aorta AO Root Diam: 3.28 cm Ascending Ao Diam: 2.87 cm Aortic Valve AoV Area (Pe[place] Hawk): 2.13 cm2, 2.13 cm2 AoV Area (VTI): 2.04 cm2, 2.04 cm2 Peak Velocity(Antegrade Flow): 1.22 m/s Peak Gradient(Antegrade Flow): 5.99 mm[Hg] Mean Velocity(Antegrade Flow): 0.83 m/s Mean Gradient(Antegrade Flow): 3.22 mm[Hg] Velocity Time Integral: 26.76 cm Tricuspid Valve Peak Velocity (Regurgitant Flow): 2.30 m/s, 2.38 m/s, 2.33 m/s Pulmonic Valve Mean Gradient: 1.99 mm[Hg], 2.43 mm[Hg] Mean Velocity: 0.66 m/s, 0.72 m/s Peak Velocity: 1.03 m/s Peak Gradient: 3.47 mm[Hg], 5.06 mm[Hg] Right Atrium Right Atrium Systolic Pressure: 102.74 ml, 102.74 ml Dictated by: Anatoliy Tapia M.D. on 12/19/2023 at 13:07 Approved by: Anatoliy Tapia M.D. on 12/19/2023 at 13:11 Dictated By: ANATOLIY TAPIA Signed By:12/19/23 1312 DD/ 1311 TD/TT: Manager Women: Generic External Data Provider [facility] Final Result documented in this encounter Visit Diagnoses Not on filedocumented in this encounter Care Teams Automobile Rental Representative Relationship Specialty Start Date End Date Rc Rojas MD [address] [place] [address] PCP - General Family Medicine 10/31/23 documented as of this encounter
--- OUTSIDE RECORDS SUMMARY | 2025-03-01 08:29 | XMS_ITS ---
Author Organization [facility] Care Team Providers Care Dot Compliance Coordinator Name Role Phone Smith Escudero Unavailable Unavailable Leanne Nicole Unavailable Unavailable Allergies and adverse reactions Code CodeSystem Substance Reaction Severity StartDate Concern Status 274925683 SNOMED CT Penicillins Unknown 08/03/2022 activ e Care Team Name Role Address Phone Organization Dates Smith Kota [address] [address], [place], [address], [facility] (Office): : [facility] 08/03/2022 - 09/22/2022 Leanne Nicole [address], [place], [address], [facility] (Office): : [facility] 08/03/2022 - 09/22/2022 Immunizations Immunization Status Vaccine Details Vaccine Code CodeSystem Date Notes Pneumovax cancelled pneumococcal polysaccharide vaccine, 23 valent 33 CVX created date: 08/14/2022 consent date: 08/14/2022 Influenza-Afluria 5ML Quad. Vaccine Multi Dose Vial cancelled Influenza, split virus, quadrivalent, injectable, preservative free 150 CVX created date: 08/14/2022 consent date: 08/14/2022 Moderna SARS-COV-2 (COVID-19) Booster completed SARS-COV-2 (COVID-19) vaccine, mRNA, spike protein, LNP, preservative free, 100 mcg/0.5mL dose or 50 mcg/0.25mL dose Given intramuscularly 207 CVX created date: 08/14/2022 administere d date: 10/22/2020 Moderna SARS-COV-2 (COVID-19) Booster completed SARS-COV-2 (COVID-19) vaccine, mRNA, spike protein, LNP, preservative free, 100 mcg/0.5mL dose or 50 mcg/0.25mL dose Given intramuscularly 207 CVX created date: 08/14/2022 administere d date: 09/24/2020 Mental Status Section Date Assessment Total Score Description 09/22/2022 BIMS 13 cognitively int act CAM 0 No delirium ind icated PHQ-9 00 08/10/2022 BIMS 13 cognitively int act CAM 0 No delirium ind icated PHQ-9 00 Problems Problem # Description Date of onset Resolved Date Code CodeSystem Concern Status 1 HEREDITARY AND IDIOPATHIC NEUROPATHY, UNSPECIFIED 08/12/[address] active 2 ABNORMAL POSTURE 08/03/[address] a ctive 3 DEPENDENCE ON RENAL DIALYSIS 08/03/[address] active 4 DEPRESSION, UNSPECIFIED 08/03/[address] active 5 END STAGE RENAL DISEASE 08/03/[address] active 6 ESSENTIAL (PRIMARY) HYPERTENSION 08/03/[address] active 7 GASTRO-ESOPHAGEAL REFLUX DISEASE WITHOUT ESOPHAGITIS 08/03/[address] active 8 HYPERLIPIDEMIA, UNSPECIFIED 08/03/[address] active 9 HYPOTENSION OF HEMODIALYSIS 08/03/[address] active 10 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 HYPOGLYCEMIC DRUGS 08/03/[address] active 11 MUSCLE WEAKNESS (GENERALIZED) 08/03/[address] active 12 NECROTIZING FASCIITIS 08/03/[address] active 13 OTHER ABNORMALITIES OF GAIT AND MOBILITY 08/03/[address] active 14 PAIN, UNSPECIFIED 08/03/[address] active 15 TYPE 2 DIABETES MELLITUS WITH UNSPECIFIED COMPLICATIONS 08/03/[address] active 16 UNSPECIFIED ATRIAL FIBRILLATION 08/03/[address] active Reason for Referral No Reasons for Referral Entered Social History Social History Observation Description Start Date End Date Code Code System Current Smoking Status Tobacco smoking consumption unknown 623730126 SNOMED CT Sex Assigned At Male 1965 [address]-3 [facility] Gender Identity Vital Signs Code Code System Vitals Name Values and Units Timing Information 8462-4 [facility] Blood Pressure-Diastolic Value=45 Un its=mmHg 09/22/2022 8480-6 [facility] Blood Pressure-Systolic Nbnxs=950 Un its=mmHg 09/22/2022 9279-1 [facility] Respiratory Rate Value=16.0 Units=/m in 09/22/2022 8310-5 [facility] Body Temperature Value=98.0 Units= F 09/22/2022 8867-4 [facility] Heart rate Value=70.0 Units=/min 05/2023 04274-1 [facility] O2 % BldC Oximetry Value=98.0 Units= % 09/22/2022 84606-2 [facility] Pain Level Value=3.0 09/22/2022 75894-1 [facility] Weight Zleex=687.0 Units=Lbs 04/2023 2339-0 [facility] Blood Sugar Hxbxs=759.0 Units=mg/dL 09/21/2022 8302-2 [facility] Height Value=69.0 Units=Inches 08/03/2022
--- OUTSIDE RECORDS SUMMARY | 2025-03-01 08:29 | XMS_ITS | Clinical Summary ---
Author Organization [facility] Healthcare Address [address] [place] [address] Care Team Providers Care Machine Set Up Operator Name Role Phone Rc Rojas MD Primary Care Provider Allergies Active Allergy Reactions Criticality Noted Date Comments Penicillin G Unknown 12/20/2022 Medications Acetaminophen 500 MG capsule 2 tabs at needed Orally every 6 hrs PRN Active amiodarone (Pacerone) 200 MG tablet 1 (one) time each day at the same time. Active Eliquis 5 MG tablet every 12 (twelve) hours. Active Ergocalciferol (Vitamin D2) 10 MCG (400 UNIT) tablet 1 (one) time each day at the same time. Active midodrine (Proamatine) 5 MG tablet USE DIRECTED ON DIALYSIS DAYS NEEDED FOR 14 DAYS 11/19/19 23 Active Renvela 800 MG tablet every 8 (eight) hours. Active aspirin 81 MG EC tablet Take 81 mg by mouth Daily Active amoxicillin (Amoxil) 250 MG capsule Take 250 mg by mouth in the morning and 250 mg before bedtime. Active folic acid-vitamin B complex-vitamin F-gynhdqln-zcqt (Dialyvite) 3 MG tablet Take 1 tablet by mouth Daily Active metoprolol succinate XL (Toprol-XL) 25 MG 24 hr tablet Take 12.5 mg by mouth Daily Do not crush or chew. Active cholecalciferol (Vitamin D-3) 25 MCG tablet Take 1,000 Units by mouth in the morning. 05/16/20 24 Active guaiFENesin (Mucinex) 600 MG 12 hr tablet Take 1 tablet by mouth every 12 (twelve) hours 05/29/20 24 Active sevelamer (Renagel) 800 MG tablet Take 800 mg by mouth in the morning and 800 mg at noon and 800 mg in the evening. Take with meals. Swallow tablet whole; do not crush, break, or chew.. Active insulin NPH-insulin regular (NovoLIN) (70-30) 100 UNIT/ML injectionIndicatio ns:Type 2 diabetes mellitus with hyperglycemia, with long-term current use of insulin ([facility]) Inject 30 Units under the skin at bedtime 10 mL 5 09/08/19 25 Active docusate sodium (Colace) 100 MG capsuleIndications :Constipation due to opioid therapy Take 1 capsule (100 mg) by mouth in the morning and 1 capsule (100 mg) before bedtime. 60 capsule 3 10/30/19 25 Active levothyroxine (Synthroid, Levoxyl) 50 MCG tabletIndications: Adult hypothyroidism Take 1 tablet (50 mcg) by mouth in the morning. Take before meals. 30 tablet 5 12/09/19 25 Active gabapentin (Neurontin) 300 MG capsuleIndications :Diabetic peripheral neuropathy (HCC) Take 1 capsule (300 mg) by mouth at bedtime 30 capsule 2 12/09/19 25 Active glucose blood test stripIndications:T ype 2 diabetes mellitus with hyperglycemia, with long-term current use of insulin ([facility]) 1 each by Other route in the morning and 1 each in the evening and 1 each before bedtime. 100 each 11 12/09/19 25 Active sertraline (Zoloft) 100 MG tabletIndications: Major depressive disorder, recurrent episode, moderate (HCC) Take 1 tablet by mouth once daily 30 tablet 02/05/20 25 Active omeprazole (PriLOSEC) [address] capsuleIndications :Chronic GERD Take 1 capsule by mouth once daily 30 capsule 02/25/20 25 Active pioglitazone (Actos) 30 MG tabletIndications: Microalbuminuria due to type 2 diabetes mellitus (HCC) Take 1 tablet by mouth once daily 30 tablet 02/25/20 25 Active sertraline (Zoloft) 100 MG tabletIndications: Major depressive disorder, recurrent episode, moderate (HCC) Take 1 tablet by mouth once daily 30 tablet 01/06/20 25 025 Discontinued pioglitazone (Actos) 30 MG tabletIndications: Microalbuminuria due to type 2 diabetes mellitus (HCC) Take 1 tablet by mouth once daily 30 tablet 01/27/20 25 08/13/2 025 Discontinued omeprazole (PriLOSEC) [address] capsuleIndications :Chronic GERD Take 1 capsule by mouth once daily 30 capsule 01/27/20 25 025 Discontinued HYDROcodone-acetam inophen (Lavelle) 5-325 MG tabletIndications: Diabetic peripheral neuropathy (HCC) Take 1 tablet by mouth 4 (four) times a day as needed for severe pain 120 tablet 01/30/20 25 025 Active Problems Problem Noted Date Diagnosed Date Paroxysmal atrial fibrillation 12/08/2024 Assessment & Plan (12/08/2024 2:24 PM EDT): In NSR and monitor. Adult hypothyroidism 12/08/2024 Assessment & Plan (12/08/2024 2:23 PM EDT): Resume synthroid. Major depressive disorder, recurrent, moderate 0 04/07/2024 Assessment & Plan (04/07/2024 11:11 AM EDT): Occasional symptoms but tolerable and continue zoloft. Hypertensive kidney disease 04/07/2024 Assessment & Plan (12/08/2024 2:23 PM EDT): BP controlled and continue medication. Follow with nephro. Assessment & Plan (09/08/2024 2:22 PM EST): BP controlled and continue medication. Follow with nephro. Assessment & Plan (04/07/2024 11:11 AM EDT): BP low and continue midodrine. Follow with nephro. Anemia due to chronic kidney disease 04/07/2024 Class 3 severe obesity due t o excess calories with serious comorbidity and body mass index (BMI) of 40.0 to 44.9 in adult 04/07/2024 Assessment & Plan (09/08/2024 2:22 PM EST): Weight loss indicated. Assessment & Plan (04/07/2024 11:11 AM EDT): Weight loss indicated. Start ozempic. Dyslipidemia 04/07/2024 Chronic HFrEF (heart failure with reduced ejection fraction) 04/07/2024 Assessment & Plan (12/08/2024 2:23 PM EDT): Edema stable and follow with cardiology. Assessment & Plan (09/08/2024 2:21 PM EST): Edema stable and follow with cardiology. Assessment & Plan (04/07/2024 11:10 AM EDT): Edema stable and follow with cardiology. Gastroesophageal reflux disease without esophagi tis 04/07/2024 Assessment & Plan (04/07/2024 11:10 AM EDT): Symptoms controlled with omeprazole and continue. Constipation due to opioid therapy 07/02/2023 Abnormal gait 12/20/2022 Dependence on renal dialysis 12/20/2022 Assessment & Plan (04/07/2024 11:10 AM EDT): Follow with nephrology. Type 2 diabetes mellitus wit h hyperglycemia, with long-term current use of insulin 12/20/2022 Assessment & Plan (12/08/2024 2:24 PM EDT): BS controlled and due for A1C. Stick to ADA diet and limit carbs. Assessment & Plan (09/08/2024 2:23 PM EST): BS controlled and last A1C 5.6. Stick to ADA diet and limit carbs. Assessment & Plan (04/07/2024 11:11 AM EDT): A1C improved but BS variable. Start ozempic. End-stage renal disease 12/20/2022 Assessment & Plan (09/08/2024 2:22 PM EST): Continue dialysis Hammer toe 12/20/2022 Onychodystrophy 12/20/2022 Diabetic peripheral neuropathy 12/20/2022 Assessment & Plan (12/08/2024 2:23 PM EDT): Worsening symptoms and increase neurontin. Assessment & Plan (09/08/2024 2:22 PM EST): Symptoms stable and continue medication. Assessment & Plan (04/07/2024 11:10 AM EDT): Symptoms stable and continue medication. Callus of foot 12/20/2022 Resolved Problems Problem Noted Date Diagnosed Date Resolved Date Pressure injury of left buttock, unstageable 5 12/08/2024 Assessment & Plan (09/09/2024 12:15 PM EST): Home health to start wound care. Patient is in need of a hospital bed due to pressure ulcers and needs the ability to change positions often. Onychomycosis 12/20/2022 04/07/2024 Encounters Date Type Department Care Team Description 02/24/2025 [facility]ill [facility] [address] [place] [address] Rc Rojas MD Chronic GERD; Microalbuminuria due to type 2 diabetes mellitus (HCC) 02/24/2025 Refill [facility] [address] [place] [address] Rc Rojas MD Chronic GERD; Microalbuminuria due to type 2 diabetes mellitus (HCC) 02/05/2025 Orders Only [facility] [address] [place] [address] Yunier Decker MD 02/04/2025 Refill [facility] [address] [place] [address] Rc Rojas MD Major depressive disorder, recurrent episode, moderate (HCC) 01/29/2025 Refill [facility] [address] [place] [address] Rc Rojas MD Diabetic peripheral neuropathy (HCC) 01/28/2025 Refill [facility] [address] [place] [address] Rc Rojas MD Diabetic peripheral neuropathy ([facility]) 2025 Refill [facility] [address] [place] [address] Rc Rojas MD Microalbuminuria due to type 2 diabetes mellitus ([facility]); Chronic GERD 01/02/2025 Refill [facility] [address] [place] [address] Rc Rojas MD Major depressive disorder, recurrent episode, moderate ([facility]) 12/30/2024 Refill [facility] [address] [place] [address] Rc Rojas MD Diabetic peripheral neuropathy ([facility]) 12/29/2024 Refill [facility] [address] [place] [address] Rc Rojas MD Diabetic peripheral neuropathy ([facility]) 12/27/2024 Refill [facility] [address] [place] [address] Rc Rojas MD Microalbuminuria due to type 2 diabetes mellitus ([facility]) 12/26/2024 Refill [facility] [address] [place] [address] Rc Rojas MD Chronic GERD 12/08/2024 1:30 PM EDT Office Visit [facility] [address] [place] [address] Rc Rojas MD Type 2 diabetes mellitus with hyperglycemia, with long-term current use of insulin ([facility]) (Primary Dx); Hypertensive kidney disease ; Diabetic peripheral neuropathy ([facility]); Paroxysmal atrial fibrillation ([facility]); Chronic HFrEF (heart failure with reduced ejection fraction) ([facility]); Adult hypothyroidism ; Oophoritis 12/08/2024 Bamboo flowsheet [facility] [address] [place] [address] Rc Rojas MD 12/03/2024 Clinisync Result Encounter [facility] External Department Unsolicited Provider, Generic External Data 12/03/2024 Clinisync Result Encounter [facility] External Department Unsolicited Provider, Generic External Data 12/03/2024 Clinisync Result Encounter [facility] External Department Unsolicited Provider, Generic External Data 12/02/2024 Refill [facility] [address] [place] [address] Rc Rojas MD Major depressive disorder, recurrent episode, moderate (HCC) 12/01/2024 Travel from Last 3 Months Family History Medical History Relation Name Comments Diabetes Brother Cancer Father Lung cancer Father Breast cancer Mother Cancer Mother Relation Name Status Comments Brother 2 brothers Father Mother Social History Tobacco Use Types [...] How often do you attend chur or buddhist services? Never 04/01/2024 Do you belong to any clubs o r organizations such as jewish groups, unions, fraternal or athletic groups, or [...] care, and heating? Not very hard 04/01/2024 [facility]ational Stress Questionnaire Answer Date Recorded [...] any time in the past 12 m [facility], were you homeless or living in a intermediate (including now)? No 04/01/2024 Sex and Gender Information Value Date Recorded Sex Assigned at Male 12/13/2022 8:38 AM EDT Legal Sex Male 10:11 PM EDT Gender Identity Not on file Sexual Orientation Not on file Last Filed Vital Signs Vital Sign Reading Time Taken Comments Blood Pressure 112/66 12/08/2024 1:46 PM EDT Pulse 62 12/08/2024 1:46 PM EDT Temperature 36.2 C (97.1 F) 12/08/2024 1:46 PM EDT Respiratory Rate 18 12/08/2024 1:46 PM EDT Oxygen Saturation 92% 12/08/2024 1:46 PM EDT Inhaled Oxygen Concentration - - Weight 121 kg (267 lb) 12/08/2024 1:46 PM EDT Height 175.3 cm (5' 9 ) 12/08/2024 1:46 PM EDT Body Mass Index 39.43 12/08/2024 1:46 PM EDT Plan of Treatment Upcoming Encounters Date Type Department Care Team (Late st Contact Info) Description 03/18/2025 1:30 PM EDT Office Visit [facility] [address] [place] [address] Rc Rojas MD [address] [place] [address] Health Maintenance Due Date Last Done Comments CT Colonography 1965 FIT-DNA 1965 FIT 1965 FOBT 1965 Medicare Annual Wellness (AWV) 1965 Sigmoidoscopy 1965 Diabetes: Retinopathy Screening 01/25/1974 Influenza Vaccine (#1) 2025 Diabetes: Hemoglobin A1C 07/23/2025 025, 07/20/2024, 01/22/2024 Colonoscopy 11/18/2029 11/19/2019 Colorectal Cancer Screening 11/18/2029 Diabetes: Urine Protein Screening 02/16/2030 Postponed from 01/25 (Other Medical Reasons) Goals Goal Patient Goal Type Associated Problems Recent Progress Patient-Stated? Author Help patient manage antidepressant medication Care Plan Patient on antidepressant monitoring plan No MARILU CLARK Baseline PHQ-9 Care Plan Baseline PHQ-9 MARILU Diaz Procedures Procedure Name Priority Date/Time Associated Diagnosis Comments SCANNED LABS Routine 02/05/2025 11:51 AM EDT XR CHEST 2V 12/03/2024 10:20 AM EDT RT PULMONARY FUNCTION TEST 12/03/2024 9:26 AM EDT ALL THYROXINE (T4) FREE Routine 12/03/2024 8:52 AM EDT ALL THYROID STIM HORMONE Routine 12/03/2024 8:52 AM EDT HP LIVER PANEL Routine 12/03/2024 8:52 AM EDT ALL HEMOGLOBIN Routine 12/03/2024 8:52 AM EDT from Last 3 Months Results * SCANNED LABS (02/05/2025 11:51 AM EDT) Yunier Decker MD LAB CHG PERFORMABLES Final Resul t * XR CHEST 2V (12/03/2024 10:20 AM EDT) Anatomical Region Laterality Modality Other 12/03/2024 10:2 0 AM EDT Narrative 12/03/2024 10:22 AM EDT The [address] [address] XRay Report Signed Patient: PAM GRAHAM MR#: [id number] : 1965 Acct:[id number] Age/Sex: 59 / M ADM Date: 12/03/24 Loc: LAB Attending Dr: SHIELA VALDES APRN Ordering Physician: SHIELA VALDES APRN Date of Service: 12/03/24 Procedure(s): XR chest 2V Accession Number(s): [id number] cc: Rc Rojas M.D.; SHIELA VALDES APRN The [address] [address] Patient Name: PAM GRAHAM MRN: [id number] date: 1965 Sex: M Assigned Patient Location: LAB Current Patient Location: LAB Accession/Order Number: [id number] Exam Date: 12/03/2024 10:16 Report Date: 12/03/2024 10:20 At the request of: SHIELA VALDES APRN Procedure: XR chest 2V PA AND LATERAL CHEST: CLINICAL HISTORY: intermediate frame tender amiodarone use COMPARISON: 04/19/2024 A pacemaker is again visualized on the left. Minor scarring and/or atelectasis is noted. There is no developing consolidation. There is new minor blunting of the left costophrenic angle which could be a trace amount of pleural fluid. There is no pneumothorax. The cardiac, hilar and mediastinal silhouettes are within normal limits. There is no vascular congestion. The visualized bony thorax is intact. Mild degenerative changes present at the spine. XR/XR chest 2V IMPRESSION: MINOR ATELECTASIS AND/OR SCARRING. POSSIBLE TINY LEFT EFFUSION. Impression dictated by: Kiersten Mcdermott M.D. 12/03/2024 10:20 AM Dictation Location: [place] [address] Electronically authenticated by: [id number] Y Date: 12/03/2024 10:20 Dictated By: Kiersten Mcdermott M.D. Signed By: 12/03/24 1022 DD/ 1020 TD/TT: Inspector Subassembly: Procedure Note Radiology, Radiologist, MD - 12/03/2024 [place] [address] XRay Report Signed Patient: PAM GRAHAM LMR#: [id number] : 1965Acct:[id number] Age/Sex: 59 / MADM Date: 12/03/24 Loc: LAB Attending Dr: SHIELA VALDES APRN Ordering Physician: SHIELA VALDES APRN Date of Service: 12/03/24 Procedure(s): XR chest 2V Accession Number(s): [id number] cc: Rc Rojas M.D.; SHIELA VALDES APRN The [address] [address] Patient Name: PAM GRAHAM MRN: [id number] date: 1965 Sex: M Assigned Patient Location: LAB Current Patient Location: LAB Accession/Order Number: [id number] Exam Date: 12/03/2024 10:16 Report Date: 12/03/2024 10:20 At the request of: SHIELA VALDES APRN Procedure: XR chest 2V PA AND LATERAL CHEST: CLINICAL HISTORY: prison amiodarone use COMPARISON: 04/19/2024 A pacemaker is again visualized on the left. Minor scarring and/oratelectasis is noted. There is no developing consolidation. There is new minorblunting of the left costophrenic angle which could be a trace amount of pleuralfluid. There is no pneumothorax. The cardiac, hilar and mediastinalsilhouettes are within normal limits. There is no vascular congestion. Thevisualized bony thorax is intact. Mild degenerative changes present at the spine. XR/XR chest 2V IMPRESSION: MINOR ATELECTASIS AND/OR SCARRING. POSSIBLE TINY LEFT EFFUSION. Impression dictated by: Kiersten Mcdermott M.D. 12/03/2024 10:20 AM Dictation Location: [place] [address] Electronically authenticated by: [id number] Y Date: 0:20 Dictated By: Kiersten Mcdermott M.D. Signed By:12/03/24 1022 DD/ 1020 TD/TT: Inspector Subassembly: Generic External Data Provider [facility] Final Result * RT PULMONARY FUNCTION TEST (12/03/2024 9:26 AM EDT) Anatomical Region Laterality Modality Other 12/03/2024 9:26 AM EDT Narrative 12/08/2024 4:39 PM EDT [address] [address] Respiratory Report Signed Patient: PAM GRAHAM MR#: [id number] : 1965 Acct:[id number] Age/Sex: 59 / M ADM Date: 12/03/24 Loc: LAB Attending Dr: SHIELA VALDES APRN Ordering Physician: SHIELA VALDES APRN Date of Service: 12/03/24 Procedure(s): RT pulmonary function test Accession Number(s): [id number] cc: The [facility] Test Date: 2024-12-03 Pat Name: PAM GRAHAM Department: Room: - Gender: Male Hairspring Assembler: Silvestre Kulkarni RRT : 1965 Requested By: Shiela Valdes Order Number: [id number] Reading MD: Quintin Maloney Interpretive Statements Pulmonary function testing was completed according to ATS criteria. Findings were considered accurate and reproducible, with exception of DLCO which did not meet ATS standards. Both pre- and post-bronchodilator values utilized for spirometry. BMI: 42 Spirometry (based on pre-bronchodilator values): -FEV1/FVC: Normal @ 83% -FEV1: Moderately reduced @ 53% -FVC: Very severely reduced @ 49% -There is no significant bronchodilator response. Lung volumes by plethysmography: -RV: Reduced @ 67% -TLC: Severely reduced @ 59% Diffusion capacity: -Unable to be performed -Hb 12.9 g/dL Prior PFT from 01/19/2022 for comparison: -FEV1/FVC: Normal @ 82% -FEV1: Reduced @ 68% -FVC: Moderately reduced @ 68% -TLC: Mildly reduced @ 72% -DLCO: Moderate reduction @ 53% -BMI: 47.8 Impressions: -Severe restriction in spirometry confirmed with severe restriction in lung volumes. No diffusion impairment able to be done by patient. When compared to prior testing from 01/19/2022, DLCO was done then which noted a moderately severe reduction, though spirometry and lung volumes were significantly better. Though obesity can cause the reduction in spirometry and lung volumes, her BMI has decreased from 47.8 to 42, arguing against obesity as the cause of the decline in her numbers. This may indicate advancing cardiopulmonary vascular disease or development of interstitial lung disease as can be seen in long-term amiodarone use. Clinical correlation required. Electronically Signed On 12-08-2024 16:39:12 EDT by Quintin Maloney Dictated By: Quintin Maloney D.O. Signed By: 12/08/24 1639 DD/ 0996 TD/TT: Inspector Subassembly: Procedure Note Radiology, Radiologist, - 12/08/2024 [place] [address] Respiratory Report Signed Patient: PAM GRAHAM LMR#: [id number] : 1965Acct:[id number] Age/Sex: 59 / MADM Date: 12/03/24 Loc: LAB Attending Dr: SHIELA VALDES APRN Ordering Physician: SHIELA VALDES APRN Date of Service: 12/03/24 Procedure(s): RT pulmonary function test Accession Number(s): [id number] cc: [facility] Test Date: 2024-12-03 Pat Name: PAM GRAHAM Department: Room: - Gender: Male Hairspring Assembler: Silvestre Kulkarni RRT : 1965 Requested By: Shiela Valdes Order Number: [id number] Reading MD: Quintin Maloney Interpretive Statements Pulmonary function testing was completed according to ATS criteria.Findings were considered accurate and reproducible, with exception of DLCO whichdid not meet ATS standards. Both pre- and post-bronchodilator values utilized for spirometry. BMI: 42 Spirometry (based on pre-bronchodilator values): -FEV1/FVC: Normal @ 83% -FEV1: Moderately reduced @ 53% -FVC: Very severely reduced @ 49% -There is no significant bronchodilator response. Lung volumes by plethysmography: -RV: Reduced @ 67% -TLC: Severely reduced @ 59% Diffusion capacity: -Unable to be performed -Hb 12.9 g/dL Prior PFT from 01/19/2022 for comparison: -FEV1/FVC: Normal @ 82% -FEV1: Reduced @ 68% -FVC: Moderately reduced @ 68% -TLC: Mildly reduced @ 72% -DLCO: Moderate reduction @ 53% -BMI: 47.8 Impressions: -Severe restriction in spirometry confirmed with severe restriction inlung volumes. No diffusion impairment able to be done by patient. Whencompared to prior testing from 01/19/2022, DLCO was done then which noted amoderately severe reduction, though spirometry and lung volumes were significantly better. Though obesity can cause the reduction in spirometry and lung volumes, her BMI has decreased from 47.8 to 42, arguing against obesity as the cause of the decline in her numbers. This may indicate advancing cardiopulmonary vascular disease or development of interstitial lungdisease as can be seen in long-term amiodarone use. Clinical correlationrequired. Electronically Signed On 12-08-2024 16:39:12 EDT by Quintin Maloney Dictated By: Quintin Maloney D.O. Signed By:12/08/24 1639 DD/ 0926 TD/TT: Inspector Subassembly: Generic External Data Provider [facility] Final Result * (ABNORMAL) [facility] LIVER PANEL (12/03/2024 8:52 AM EDT) BILIRUBIN TOTAL 0.6 0.2 - 1.0 mg/dL TB BILIRUBIN DIRECT 0.2 0.0 - 0.2 mg/dL [facility] ASPARTATE AMINO TRANSFERASE 15 15 - 37 U/L [facility] ALANINE AMINOTRANSFERASE 17 16 - 63 U/L [facility] ALKALINE PHOSPHATASE 101 46 - 116 U/L TB TOTAL PROTEIN 8.2 6.4 - 8.2 g/dL [facility] ALBUMIN LEVEL 3.3(L) 3.4 - 5.0 g/dL [facility] GLOBULIN 4.9 g/dL [facility] ALBUMIN GLOBULIN RATIO 0.7 [facility] 12/03/2024 8:52 AM EDT 12/03/2024 8:53 AM EDT Narrative [facility] - 12/03/2024 9:33 AM EDT Generic External Data Provider [facility] F inal Result [facility] * ALL THYROXINE (T4) FREE (12/03/2024 8:52 AM EDT) FREE T4 0.96 0.76 - 1.46 ng/dL [facility] 12/03/2024 8:52 AM EDT 12/03/2024 8:53 AM EDT Narrative [facility] - 12/03/2024 10:35 AM EDT Generic External Data Provider [facility] F inal Result Performing Organization Address City/[facility] Co de Phone Number [facility] * (ABNORMAL) ALL THYROID STIM HORMONE (12/03/2024 8:52 AM EDT) THYROID STIMULATING HORMONE 11.474(H) 0.358 - 3.740 uIU/mL [facility] 12/03/2024 8:52 AM EDT 12/03/2024 8:53 AM EDT Narrative [facility] - 12/03/2024 9:33 AM EDT Generic External Data Provider [facility] F inal Result Performing Organization Address [facility] de Phone Number [facility] * (ABNORMAL) ALL HEMOGLOBIN (12/03/2024 8:52 AM EDT) [facility] HGB 12.9(L) 14.0 - 18.0 g/dL [facility] 12/03/2024 8:52 AM EDT 12/03/2024 8:53 AM EDT Narrative [facility] - 12/03/2024 8:58 AM EDT Generic External Data Provider [facility] F inal Result Performing Organization Address [facility] de Phone Number [facility] from Last 3 Months Additional Health Concerns Active Problems Noted Date Diagnosed Date Patient on antidepressant monitoring plan 2023 Baseline PHQ-9 12/30/2023 Insurance MEDICARE Care Teams Machine Set Up Operator Relationship Specialty Start Date End Date Rc Rojas MD [address] [place] [phone] PCP - General Family Medicine 10/31/23
--- OUTSIDE RECORDS SUMMARY | 2025-03-01 08:29 | XMS_ITS | Encounter Summary ---
Author Organization [facility] [employer] [facility] Address [id number] [address] [place] [address] Care Team Providers Care Flake [employer] Name Role Phone Rc Rojas MD Primary Care Provider Encounter Details Date Type Department Care Team (Late st Contact Info) Description 12/01/2024 Lab Requisition [facility] - Lab [address] [place] [phone] Pia Lam, MEDICAL ASSISTANT-BUSINESS INFORMATION MANAGER [address] [facility] [address] [place] [address] Bacteremia; Other bacterial infections of unspecified site; End stage renal disease ([facility]); Dependence on renal dialysis; Presence of functional implant, unspecified Social History Tobacco Use Types Packs/Day Years Used Date Smoking Tobacco: Never Smokeless Tobacco: Never Alcohol Use Standard Drinks/Week Comments Not Currently 0 (1 standard drink = 0.6 oz pur e alcohol) rarely [facility] Utilities Answer Date Recorded In the past 12 months has [employer], gas, oil, or water [employer] threatened to shut off services in your [...] Office Visit [facility] Pulmonary/Sleep Medicine [address] [address] Melany Landa DO [address] [address] documented as of this encounter Goals Goal Patient Goal Type Associated Problems Recent Progress Patient-Stated? Author home General Yes Alondra Dawson, RN Note: Evaluation of progress towards goal: patient stated would like to go home with home care. SNF General Yes Amber Soto LSW Note: Evaluation of progress towards goal: Return to [facility] documented as of this encounter Procedures Procedure Name Priority Date/Time Associated Diagnosis Comments CBC WITH AUTO DIFFERENTIAL Routine 12/01/2024 2:00 PM EDT Bacteremia Other bacterial infections of unspecified site End stage renal disease ([facility]) Dependence on renal dialysis Presence of functional implant, unspecified documented in this encounter Results * (ABNORMAL) CBC auto differential (12/01/2024 2:00 PM EDT) WBC 6.8 4 - 11 x10E9/L 12/01/2024 3:12 PM EDT [facility] RBC Count 3.73(L) 4.1 - 5.7 X10E12/L 12/01/2024 3:12 PM EDT [facility] Hemoglobin 12.1(L) 13 - 17 g/dL 12/01/2024 3:12 PM EDT [facility] Hematocrit 36.9(L) 39 - 50 % 12/01/2024 3:12 PM EDT [facility] MCV 99 80 - 100 fL 12/01/2024 3:12 PM EDT [facility] MCH 32.6 27 - 34 pg 12/01/2024 3:12 PM EDT [facility] MCHC 32.9 32 - 36 g/dL 12/01/2024 3:12 PM EDT [facility] RDW 16.3(H) 11.5 - 15 % 12/01/2024 3:12 PM EDT [facility] Platelet Count 178 150 - 450 X10E9/L 12/01/2024 3:12 PM EDT [facility] MPV 9.8 7 - 12 fL 12/01/2024 3:12 PM EDT [facility] Neutrophils % 61.7 % 12/01/2024 3:12 PM EDT [facility] Lymphocytes % 23.0 % 12/01/2024 3:12 PM EDT [facility] Monocytes % 5.3 % 12/01/2024 3:12 PM EDT [facility] Eosinophils % 9.1 % 12/01/2024 3:12 PM EDT [facility] Basophils % 0.9 % 12/01/2024 3:12 PM EDT [facility] Neutrophils Absolute (A) 4.2 1.5 - 6.6 10*3/uL 12/01/2024 3:12 PM EDT [facility] Lymphocytes Absolute 1.6 1.0 - 3.5 10*3/uL 12/01/2024 3:12 PM EDT [facility] Monocytes Absolute 0.4 0.0 - 0.9 10*3/uL 12/01/2024 3:12 PM EDT [facility] Eosinophils Absolute 0.6(H) 0.0 - 0.4 10*3/uL 12/01/2024 3:12 PM EDT [facility] Basophils Absolute 0.1 0.0 - 0.2 10*3/uL 12/01/2024 3:12 PM EDT [facility] Differential Type AUTOMATED DIFFERENTIAL 12/01/2024 3:12 PM EDT [facility] Blood Venous blood / Unknown 12/01/2024 2:00 PM EDT 12/01/2024 3:05 PM EDT us Pia Lam MEDICAL ASSISTANT-BUSINESS INFORMATION MANAGER LAB BLOOD ORDERABLES Final Result Performing Organization Address City/State/[facility] Co de Phone Number [facility] [address] [place] [address], documented in this encounter Visit Diagnoses Diagnosis Bacteremia Other bacterial infections of unspecified site End stage renal disease ([facility]) End stage renal disease Dependence on renal dialysis Renal dialysis status Presence of functional implant, unspecified documented in this encounter Care Teams [employer] Relationship Specialty Start Date End Date Rc Rojas MD [address] [place] [place] [address] PCP - General 05/15/17 documented as of this encounter
--- OUTSIDE RECORDS SUMMARY | 2025-03-01 08:29 | XMS_ITS | Encounter Summary ---
Author Organization [facility] Address [address] [place] [address] Care Team Providers Care Supervisor Poultry Hatcher[employer] Name Role Phone Rc Rojas MD Primary Care Provider [phone] Rc Rojas MD Primary Care Provider [phone] Encounter Details Date Type Department Care Team (Late st Contact Info) Description 12/19/2022 Abstract [facility] [address] [place] [phone] Steve Arroyo DPM [address] [place] [address] Social History Tobacco Use Types Packs/Day Years Used Date Smoking Tobacco: Never Tobacco Cessation:Counseling Given: Not Answered Alcohol Use Standard Drinks/Week Comments Yes 0 (1 standard drink = 0.6 oz pure alcohol) Caffeine intake: 1-2 cups per day Sex and Gender Information Value Date Recorded Sex Assigned at Male 12/13/2022 8:38 AM EDT Legal Sex Male 10:11 PM EDT Gender Identity Not on file Sexual Orientation Not on file COVID-19 Exposure Response Date Recorded In the last 10 days, have yo u been in contact with someone who was confirmed or suspected to have Coronavirus/COVID-19? No / Unsure 12/13/2022 8:49 AM EDT documented as of this encounter Plan of Treatment Upcoming Encounters Date Type Department Care Team (Late st Contact Info) Description 03/18/2025 1:30 PM EDT Office Visit [facility] [address] [place] [phone] Rc Rojas MD [address] [place] [address] documented as of this encounter Visit Diagnoses Not on filedocumented in this encounter Care Teams Supervisor Poultry Hatchery Relationship Specialty Start Date End Date Rc Rojas MD PCP - General Family Medicine 01/24/23 10/30/23 Rc Rojas MD [address] [place] [address] PCP - General Family Medicine 10/31/23 documented as of this encounter
--- OUTSIDE RECORDS SUMMARY | 2025-03-01 08:29 | XMS_ITS | Encounter Summary ---
Author Organization [facility] Address [address] [place] [address] Care Team Providers Care Out Of Town Collection Clerk Name Role Phone Rc Rojas MD Primary Care Provider [phone] Reason for Visit * Reason Onset Date Comments Med Refill 02/24/2025 Encounter Details Date Type Department Care Team (Late st Contact Info) Description 02/24/2025 Refill [facility] [address] [place] [phone] Rc Rojas MD [address] [place] [phone] Chronic GERD; Microalbuminuria due to type 2 [...] week 04/01/2024 How often do you attend [facility] or rastafarian services? Never 04/01/2024 Do you belong to any clubs o r organizations such as mormonism groups, unions, fraternal or athletic groups, or [...] care, and heating? Not very hard 04/01/2024 [facility] Occupat ional Health - Occupational Stress [...] any time in the past 12 m [facility], were you homeless or living in a detention (including now)? No 04/01/2024 Sex and Gender [...] EDT Office Visit [facility] [address] [place] [address] Rc Rojas MD [address] [place] [phone] documented as of this encounter Goals Goal Patient Goal Type Associated Problems Recent Progress Patient-Stated? Author Help patient manage antidepressant medication Care Plan Patient on antidepressant monitoring plan No MARILU CLARK Baseline PHQ-9 Care Plan Baseline PHQ-9 No MARILU CLARK documented as of this encounter Visit Diagnoses Diagnosis Chronic GERD Microalbuminuria due to type 2 diabetes mellitus (HCC) documented in this encounter Additional Health Concerns Active Problems Noted Date Diagnosed Date Patient on antidepressant monitoring plan 2023 Baseline PHQ-9 12/30/2023 documented as of this encounter Care Teams Out Of Town Collection Clerk Relationship Specialty Start Date End Date Rc Rojas MD [address] [place] [phone] PCP - General Family Medicine 10/31/23 documented as of this encounter
--- OUTSIDE RECORDS SUMMARY | 2025-03-01 08:29 | XMS_ITS | Encounter Summary ---
Author Organization [facility] Address [address] [place] [address] Care Team Providers Care Finish Mender Name Role Phone Rc Rojas MD Primary Care Provider [phone] Encounter Details Date Type Department Care Team (Late st Contact Info) Description 02/05/2025 Orders Only [facility] [address] [place] [address] Yunier Decker MD [address] [place] [address] Social History Tobacco Use Types Packs/Day Years [...] often do you attend chur ch or latter-day services? Never 04/01/2024 Do you belong to any clubs o r organizations such as hinduism groups, unions, fraternal or athletic groups, or [...] care, and heating? Not very hard 04/01/2024 [facility] of Occupat ional Health - Occupational Stress [...] any time in the past 12 m [facility], were you homeless or living in a [place] (including now)? No 04/01/2024 Sex and Gender [...] Office Visit [facility] [address] [place] [address] Rc Rojas MD [address] [place] [phone] documented as of this encounter Goals Goal Patient Goal Type Associated Problems Recent Progress Patient-Stated? Author Help patient manage antidepressant medication Care Plan Patient on antidepressant monitoring plan No MARILU CLARK Baseline PHQ-9 Care Plan Baseline PHQ-9 No MARILU CLARK documented as of this encounter Procedures Procedure Name Priority Date/Time Associated Diagnosis Comments SCANNED LABS Routine 02/05/2025 11:51 AM EDT documented in this encounter Results * SCANNED LABS (02/05/2025 11:51 AM EDT) Yunier Decker MD LAB CHG PERFORMABLES Final Resul t documented in this encounter Visit Diagnoses Not on filedocumented in this encounter Additional Health Concerns Active Problems Noted Date Diagnosed Date Patient on antidepressant monitoring plan 2023 Baseline PHQ-9 12/30/2023 documented as of this encounter Care Teams Finish Mender Relationship Specialty Start Date End Date Rc Rojas MD [address] [place] [phone] PCP - General Family Medicine 10/31/23 documented as of this encounter
--- OUTSIDE RECORDS SUMMARY | 2025-03-01 08:29 | XMS_ITS | Encounter Summary ---
Author Organization [employer] Address [id number] [address] [place] [address] Care Team Providers Care Director Of Product Management Name Role Phone Rc Rojas MD Primary Care Provider [phone] Encounter Details Date Type Department Care Team (Late st Contact Info) Description 02/11/2025 Telephone [facility] [address] [address] Shelby Escamilla Social History Tobacco Use Types Packs/Day Years Used Date Smoking Tobacco: Never Smokeless Tobacco: Never Alcohol Use Standard Drinks/Week Comments Not Currently 0 (1 standard drink = 0.6 oz pur e alcohol) rarely [facility] Utilities Answer Date Recorded In the past 12 months has e electric, gas, oil, or water company [...] encounter Miscellaneous Notes * Telephone Encounter - Shelby Escamilla - 02/11/2025 10:23 AM EDT Pt - Abnormal PFTs - Scheduled @ [facility] for 1st appt - would like following appts to be in [facility] Please place order for cxr Thank You for all you do * Telephone Encounter - Emi Muñiz RN - 02/11/2025 10:23 AM EDT Order placed. Thanks documented in this encounter Plan of Treatment Upcoming Encounters Date Type Department Care Team (Late st Contact Info) Description 03/30/2025 11:00 AM EDT Office Visit [facility] Pulmonary/Sleep Medicine [address] [address] Melany Landa DO [address] [address] Scheduled Orders Name Type Priority Associated Diagnoses Orde r Schedule X-ray chest 2 views Imaging Routine SOB (shortness of breath) Expected: 03/15/2025, Expires: 02/11/2026 documented as of this encounter Goals Goal Patient Goal Type Associated Problems Recent Progress Patient-Stated? Author home General Yes Alondra Dawson, RN Note: Evaluation of progress towards goal: patient stated would like to go home with home care. SNF General Yes Amber Soto LSW Note: Evaluation of progress towards goal: Return to [facility] documented as of this encounter Visit Diagnoses Diagnosis SOB (shortness of breath)- Primary Shortness of breath documented in this encounter Care Teams Director Of Product Management Relationship Specialty Start Date End Date Rc Rojas MD [address] [place] [address] PCP - General 05/15/17 documented as of this encounter
--- OUTSIDE RECORDS SUMMARY | 2025-03-01 08:29 | XMS_ITS | Encounter Summary ---
Author Organization [facility] Address [address] [place] [address] Care Team Providers Care Sheltered Workshop Executive Director Name Role Phone Rc Rojas MD Primary Care Provider [phone] Reason for Visit * Reason Comments Med Refill Encounter Details Date Type Department Care Team (Late st Contact Info) Description 04/23/2023 Refill [facility] Cardiology [address] [place] [phone] Zaina Bob CNP [address] [place] [address] Paroxysmal atrial fibrillation (CMS/HCC) Social [...] Description 04/06/2025 2:30 PM EDT Office Visit [facility] Heart at [facility] [address] [place] [address] Ezra Jean Baptiste MD [address] [place] [address] 06/01/2025 10:00 AM EST Follow-Up [facility] at [facility] Infectious Disease [address] [place] [address] Pia Lam, LEATHER STRIPPING MACHINE OPERATOR [address] [facility] [address] documented as of this encounter Visit Diagnoses Diagnosis Paroxysmal atrial fibrillation (CMS/HCC) Atrial fibrillation documented in this encounter Care Teams Sheltered Workshop Executive Director Relationship Specialty Start Date End Date Rc Rojas MD [address] [place] [address] PCP - General 07/24/22 documented as of this encounter
--- OUTSIDE RECORDS SUMMARY | 2025-03-01 08:29 | XMS_ITS | Clinical Summary ---
Author Organization [facility] Address [address] [place] [address] Care Team Providers Care Management Department Chair Name Role Phone Rc Rojas MD Primary Care Provider Allergies No known active allergies Medications aspirin 81 mg EC tablet Take 81 mg by mouth in the morning. Active gabapentin (Neurontin) 100 mg capsule Take 100 mg by mouth in the morning. Active insulin NPH and regular human (NovoLIN) 100 unit/mL (70-30) injection Inject 30 Units under the skin. Active omeprazole (PriLOSEC) [address] capsule Take 40 mg by mouth in the morning. Active sevelamer carbonate (Renvela) 800 mg tablet Take 1,600 mg by mouth. Active sertraline (Zoloft) 100 mg tablet Take 100 mg by mouth in the morning. 09/14/19 23 Active midodrine (Proamatine) 10 mg tablet Take 10 mg by mouth if needed. At dialysis Active docusate sodium (Colace) 100 mg capsule TAKE 1 CAPSULE BY MOUTH EVERY 12 HOURS 12/20/19 23 Active cholecalciferol (VITAMIN D-3) 10 mcg (400 unit) tablet 1 (one) time each day at the same time. Active acetaminophen (Tylenol) 500 mg tablet Take 1,000 mg by mouth every 6 (six) hours. 05/15/20 24 Active B complex-vitamin C-folic acid (Dialyvite) 100-1 mg tablet Take 1 tablet by mouth in the morning. 05/29/20 24 Active guaiFENesin (Mucinex) 600 mg 12 hr tablet Take 600 mg by mouth twice a day. 05/15/20 24 Active levothyroxine (Synthroid, Levoxyl) 50 mcg tablet Take 50 mcg by mouth in the morning. 05/15/20 24 Active sennosides (Senokot) 8.6 mg tablet Take 8.6 mg by mouth. 05/15/20 24 Active sodium phosphates (Fleet) 9.5-3.5 gram/59 mL enema Insert into the rectum if needed each day for constipation. Active bisacodyl (Dulcolax, bisacodyl,) 10 mg suppository Insert 10 mg into the rectum every 3rd (third) day if needed for constipation. Active oxyCODONE (Oxy-IR) 5 mg immediate release capsule Take 5 mg by mouth every 8 (eight) hours if needed for severe pain (8-10 pain score). Active polyethylene glycol (Glycolax) oral powder Take 17 g by mouth in the morning. Active lanolin-mineral oil (Josy) lotion Apply topically if needed for dry skin. Active lactulose (Kristalose) 10 gram packet Take 10 g by mouth three times daily. Active nystatin (Mycostatin) 100,000 unit/gram powder Apply topically two times daily. Active amiodarone (Pacerone) 200 mg tabletIndication s:Paroxysmal atrial fibrillation (CMS/HCC) Take 1 tablet by mouth once daily 90 tablet 3 09/04/19 25 Active pioglitazone (Actos) 30 mg tablet Take 30 mg by mouth in the morning. Active apixaban (Eliquis) 5 mg tabletIndication s:Paroxysmal atrial fibrillation (CMS/HCC) Take 1 tablet (5 mg) by mouth two times daily. 180 tablet 1 02/06/20 25 Active apixaban (Eliquis) 5 mg tabletIndication s:Paroxysmal atrial fibrillation (CMS/HCC) TAKE 1 TABLET BY MOUTH IN THE MORNING AND AT BEDTIME 180 tablet 3 02/05/20 24 025 Discontinued amoxicillin (Amoxil) 250 mg capsuleIndicatio ns:Bacteremia,En terococcus faecalis infection,ESRD on hemodialysis (CMS/HCC),Presen ce of retained hardware Take 1 capsule (250 mg) by mouth every 12 (twelve) hours. 180 capsule 1 11/20/19 25 025 Active Problems Problem Noted Date Diagnosed Date Pressure injury of left buttock, unstageable Closed fracture of distal end of right femur 08/2023 Closed fracture of right superior pubic ramus Left shoulder pain 06/15/2024 Right leg pain 06/15/2024 Spleen laceration 06/15/2024 Status post fall 06/15/2024 Intertriginous skin ulcer 05/21/2024 Acute blood loss anemia 05/15/2024 Acute pain due to trauma 05/15/2024 Bilateral pulmonary contusion 05/15/2024 Closed fracture of transverse process of lumbar vertebra 05/15/2024 Fall from height of greater than 3 feet 05/15/20 Fracture of multiple ribs 05/15/2024 Fracture of right femur 05/15/2024 Pleural effusion on right 05/15/2024 Closed displaced fracture of body of left scapul a 05/03/2024 Closed displaced spiral fracture of shaft of rig ht femur 05/03/2024 Multiple fractures of pelvis with unstable disruption of pelvic ring, initial encounter for closed fracture 05/03/2024 Hemorrhagic shock 04/30/2024 Anemia due to chronic kidney disease 04/07/2024 Major depressive disorder, recurrent, moderate 0 04/07/2024 Cellulitis, umbilical 03/27/2024 Dermatitis, unspecified 03/27/2024 Iron deficiency anemia 03/27/2024 Joint pain 03/27/2024 Other intermodal dispatcher (current) drug therapy Secondary hyperparathyroidism 03/27/2024 Abscess of left thigh 03/10/2024 Acute renal failure 03/10/2024 Anemia of renal disease 03/10/2024 Dialysis AV fistula malfunction 03/10/2024 Dialysis disequilibrium syndrome 03/10/2024 Diarrhea 03/10/2024 DKA (diabetic ketoacidosis) 03/10/2024 History of hypotension 03/10/2024 Hyponatremia 03/10/2024 Left thigh pain 03/10/2024 Leukocytosis 03/10/2024 Metabolic acidosis 03/10/2024 Nausea and vomiting 03/10/2024 Obesity 03/10/2024 Scalp abscess 03/10/2024 Constipation due to opioid therapy 07/02/2023 11/29/2023 Abnormal gait 12/20/2022 03/14/2023 Callus of foot 12/20/2022 03/14/2023 Diabetic peripheral neuropathy 12/20/2022 0 03/14/2023 Disorder associated with type 2 diabetes mellitu s 12/20/2022 03/14/2023 Hammer toe 12/20/2022 03/14/2023 Onychodystrophy 12/20/2022 03/14/2023 Onychomycosis 12/20/2022 03/14/2023 Dermatitis associated with moisture 10/17/2022 03/14/2023 Surgical wound, non healing 08/22/2022 Hereditary and idiopathic neuropathy, unspecifie d 08/12/2022 03/14/2023 Abnormal posture 08/03/2022 03/14/2023 Depression, unspecified 08/03/2022 03/14/20 Gastro-esophageal reflux disease without esophag itis 08/03/2022 03/14/2023 Generalized muscle weakness 08/03/202202/14 Hemodialysis-associated hypotension 08/03/2022 03/14/2023 terminal press operator (current) use of oral hypoglycemic gabi gs 08/03/2022 03/14/2023 Hyperlipidemia, unspecified 08/03/202202/14 Other abnormalities of gait and mobility 023 03/14/2023 Pain, unspecified 08/03/2022 03/14/2023 Necrotizing fasciitis 07/22/2022 Chronic systolic heart failure 11/02/2020 Coronary atherosclerosis 11/02/2020 Dependence on hemodialysis 11/02/2020 ESRD (end stage renal disease) on dialysis 11/02 Paroxysmal atrial fibrillation 11/02/2020 Stage 4 chronic kidney disease 12/12/2018 Chest pain 05/30/2017 Diabetes mellitus 05/30/2017 Dyslipidemia 05/30/2017 Fatigue 05/30/2017 Hypertensive disorder 05/30/2017 Obstructive sleep apnea syndrome 05/30/2017 Encounters Date Type Department Care Team Description 02/08/[address] [facility] [address] [place] [address] Joy Griffin MA Abnormal PFTs (pulmonary function tests) (Primary Dx) 02/05[facility] [address] [facility] [place] [address] Zaina Bob CNP Paroxysmal atrial fibrillation (CMS/HCC) 12/30/2024 Results Follow-Up [facility] [address] [place] [facility] [address] Zaina Bob CNP Pulmonary function testing 12/25/[address] [facility] [address] [place] [facility] [place] [address] Lucila Costa MA 12/16/[address] [facility] [address] [place] [facility] [address] ProviderBrian MD 12/10/[address] [facility] [address] [place] [facility] [address] Joy Griffin MA 12/02/2024 Telephone [facility] Infectious Disease [address] [facility] [facility] [address] [facility], [address] [place] [address] Pia Lam CNP from Last 3 Months Immunizations Immunization Administration Dates Next Due Tdap 04/30/2024 Family History Medical History Relation Name Comments Lung cancer Father Breast cancer Mother Multiple sclerosis Sister Relation Name Status Comments Brother Alive Father Mother Sister Alive Social History Tobacco Use Types Packs/Day Years [...] Heterosexual or Straight 07/2024 2:03 PM EDT Last Filed Vital Signs Vital Sign Reading Time Taken Comments Blood Pressure 110/58 11/26/2024 9:39 AM EDT Pulse 77 11/26/2024 9:39 AM EDT Temperature - - Respiratory Rate 16 08/18/2024 9:13 AM EST Oxygen Saturation 95% 11/26/2024 9:39 AM EDT Inhaled Oxygen Concentration - - Weight 122 kg (268 lb) 11/26/2024 9:39 AM EDT Height 175.3 cm (5' 9 ) 11/26/2024 9:39 AM EDT Body Mass Index 39.58 11/26/2024 9:39 AM EDT Plan of Treatment Upcoming Encounters Date Type Department Care Team (Late st Contact Info) Description 04/06/2025 2:30 PM EDT Office Visit [facility] Heart at [facility] [address] [place] [address] Ezra Jean Baptiste MD [address] [place] [address] 06/01/2025 10:00 AM EST Follow-Up [facility] Infectious Disease [address] [facility] [address] [facility] [address], [address] [place] [address] Pia Lam, INTERMEDIATE SCHOOL TEACHER [address] [place] [address] Health Maintenance Due Date Last Done Comments CT Colonography 1964 Colonoscopy 1964 Colorectal Cancer Screening 1964 Diabetes: Hemoglobin A1C 1964 FIT-DNA 1964 FIT 1964 FOBT 1964 Medicare Annual Wellness (AWV) 1964 Sigmoidoscopy 1964 Diabetes: Retinopathy Screening 01/25/1974 Depression Screening 1976 Diabetes: Urine Protein Screening 01/25/1983 Pneumococcal Vaccine: Pediatrics (0 to 5 Years) and At-Risk Patients (6 to 64 Years) (1 of 2 - PCV) 01/25/1983 Zoster Vaccines (1 of 2) 01/25/1983 COVID-19 Vaccine (3 - Modern a risk series) 11/19/2020 10/22/2020, 09/24/2020 Influenza Vaccine (#1) 2025 Adult Tetanus 04/30/2034 04/30/2024 HIB Vaccines Aged Out No longer eligi ble based on patient's age to complete this topic HPV Vaccines Aged Out No longer eligi ble based on patient's age to complete this topic IPV Vaccines Aged Out No longer eligi ble based on patient's age to complete this topic Meningococcal B Vaccine Aged Out No l onger eligible based on patient's age to complete this topic Meningococcal Vaccine Aged Out No matt abiel eligible based on patient's age to complete this topic Rotavirus Vaccines Aged Out No longer eligible based on patient's age to complete this topic Procedures Procedure Name Priority Date/Time Associated Diagnosis Comments PULMONARY FUNCTION TESTING Routine 12/03/2024 11:33 AM EDT from Last 3 Months Results * Pulmonary function testing (12/03/2024 11:33 AM EDT) Anatomical Region Laterality Modality Other us Historical Provider PFT ORDERABLES Final Res ult from Last 3 Months Insurance MEDICARE Member Subscriber Plan / Payer (Ef fective 2020-Present) Name:Bossman Graham Member ID:[id number] Relation to Subscriber:Self Name:Bossman Graham Subscriber ID:[id number] Payer ID:[id number] Group ID:Not on file Type:Medicare Address: [facility] [place] [id number] Care Teams Management Department Chair Relationship Specialty Start Date End Date Rc Rojas MD [address] [place] [address] PCP - General 07/24/22
--- OUTSIDE RECORDS SUMMARY | 2025-03-01 08:29 | XMS_ITS | Encounter Summary ---
Author Organization [facility] Address [address] [place] [address] Care Team Providers Care Pharmacy Technology Instructor Name Role Phone Rc Rojas MD Primary Care Provider Encounter Details Date Type Department Care Team (Late Contact Info) Description 02/20/2024 Orders Only [facility] [address] [place] [address] Yunier Decker MD [address] [place] [phone] Social History Tobacco Use Types Packs/Day Years [...] Office Visit [facility] [address] [place] [address] cR Rojas MD [address] [place] [address] documented as of this encounter Goals Goal Patient Goal Type Associated Problems Recent Progress Patient-Stated? Author Help patient manage antidepressant medication Care Plan Patient on antidepressant monitoring plan No MARILU CLARK Baseline PHQ-9 Care Plan Baseline PHQ-9 No MARILU CLARK documented as of this encounter Procedures Procedure Name Priority Date/Time Associated Diagnosis Comments SCANNED LABS Routine 02/20/2024 1:06 PM EDT documented in this encounter Results * SCANNED LABS (02/20/2024 1:06 PM EDT) Yunier Decker MD LAB CHG PERFORMABLES Final Resul t documented in this encounter Visit Diagnoses Not on filedocumented in this encounter Additional Health Concerns Active Problems Noted Date Diagnosed Date Patient on antidepressant monitoring plan 2023 Baseline PHQ-9 12/30/2023 documented as of this encounter Care Teams Pharmacy Technology Instructor Relationship Specialty Start Date End Date Rc Rojas MD [address] [place] [address] PCP - General Family Medicine 10/31/23 documented as of this encounter
--- OUTSIDE RECORDS SUMMARY | 2025-03-01 08:29 | XMS_ITS | Encounter Summary ---
Author Organization [facility] Address [address] [place] [address] Care Team Providers Care Dry Cans Back Tender Name Role Phone Rc Rojas MD Primary Care Provider [phone] Rc Rojas MD Primary Care Provider [phone] Reason for Visit * Reason Comments Med Change Request Encounter Details Date Type Department Care Team ([facility] Contact Info) Description 08/02/[address] [facility] [facility] [address] [place] [address] Rc Rojas MD [address] [place] [address] Diabetic peripheral neuropathy (HCC) Social History Tobacco Use Types Packs/Day [...] Upcoming Encounters Date Type Department Care Team ([facility] Contact Info) Description 03/18/2025 1:30 PM EDT Office Visit [facility] [address] [place] [address] Rc Rojas MD [address] [place] [address] documented as of this encounter Visit Diagnoses Diagnosis Diabetic peripheral neuropathy (HCC) Type II or unspecified type diabetes mellitus with neurological manifestations, not stated as uncontrolled documented in this encounter Care Teams Dry Cans Back Tender Relationship Specialty Start Date End Date Rc Rojas MD PCP - General Family Medicine 01/24/23 10/30/23 Rc Rojas MD [address] [place] [address] PCP - General Family Medicine 10/31/23 documented as of this encounter
--- OUTSIDE RECORDS SUMMARY | 2025-03-01 08:29 | XMS_ITS | Encounter Summary ---
Author Organization [facility] Address [address] [place] [address] Care Team Providers Care Trauma Manager Name Role Phone Rc Rojas MD Primary Care Provider [phone] Reason for Visit * Reason Comments Med Refill Encounter Details Date Type Department Care Team (Late st Contact Info) Description 11/03/2023 Refill [facility] Cardiology [address] [place] [address] Ivtet Sellers CNP Coronary artery disease, unspecified vessel or lesion type, unspecified whether angina present, unspecified whether [place] or transplanted heart Social History Tobacco Use Types Packs/Day Years Used Date Smoking Tobacco: Never Smokeless Tobacco: Never Alcohol Use Standard Drinks/Week Comments Yes 0 (1 standard drink = 0.6 oz pur e alcohol) [place] Safety & Environment Answer Date Rec [...] Description 04/06/2025 2:30 PM EDT Office Visit [facility] [address] [place] [address] Ezra Jean Baptiste MD [address] [place] [address] 06/01/2025 10:00 AM EST Follow-Up [facility] Infectious Disease [address] [facility], [address] [place] [address] Pia Lam, BOBBIN SORTER [address] [facility]/[place] [address] documented as of this encounter Visit Diagnoses Diagnosis Coronary artery disease, unspecified vessel or lesion type, unspecified whether angina present, unspecified whether [place] or transplanted heart documented in this encounter Care Teams Trauma Manager Relationship Specialty Start Date End Date Rc Rojas MD [address] [facility] [place] [address] PCP - General 07/24/22 documented as of this encounter
--- OUTSIDE RECORDS SUMMARY | 2025-03-01 08:29 | XMS_ITS | Encounter Summary ---
Author Organization [facility] Address [address] [place] [address] Care Team Providers Care Liquor Merchant Name Role Phone Rc Rojas MD Primary Care Provider [phone] Encounter Details Date Type Department Care Team (Late Contact Info) Description 02/17/2024 Orders Only [facility] [address] [place] [address] Rc Rojas MD [address] [place] [address] Social History Tobacco Use Types Packs/Day Years [...] Office Visit [facility] [address] [place] [address] Rc Rojas MD [address] [place] [address] documented as of this encounter Goals Goal [...] documented as of this encounter Care Teams Liquor Merchant Relationship Specialty Start Date End Date Rc Rojas MD [address] [place] [address] PCP - General Family Medicine 10/31/23 documented as of this encounter
--- OUTSIDE RECORDS SUMMARY | 2025-03-01 08:29 | XMS_ITS | Encounter Summary ---
Author Organization [facility] tem Address [id number] [address] [place] [address] Care Team Providers Care Fluid Power Mechanic Name Role Phone Rc Rojas MD Primary Care Provider [phone] Encounter Details Date Type Department Care Team (Late Contact Info) Description 10/17/2022 Telephone [facility] [address] [place] [address] Anel Nixon, FRANNIE Social History Tobacco Use Types Packs/Day Years Used Date Smoking Tobacco: Never Smokeless Tobacco: Never Alcohol Use Standard Drinks/Week Comments Not Currently 0 (1 standard drink = 0.6 oz pur e alcohol) rarely Childcare Answer Date Recorded Childcare Unknown 12/24/2018 Employment Answer Date Recorded Employment Unknown 12/24/2018 Purpose - Life Answer Date Recorded Purpose and direction in life Unknown Sex and Gender Information Value Date Recorded Sex Assigned at Not on file Legal Sex Male 11:43 AM EDT Gender Identity Not on file Sexual Orientation Not on file COVID-19 Exposure Response Date Recorded In the last month, have you been in contact with someone who was confirmed or suspected to have Coronavirus / COVID-19? No / Unsure 10/17/2022 12:30 PM EDT documented as of this encounter Plan of Treatment Upcoming Encounters Date Type Department Care Team (Late st Contact Info) Description 03/30/2025 11:00 AM EDT Office Visit [facility] Pulmonary/Sleep Medicine [address] [phone] Melany Landa DO [address] [address] documented as of this encounter Goals Goal Patient Goal Type Associated Problems Recent Progress Patient-Stated? Author home General Yes Alondra Dawson, RN Note: Evaluation of progress towards goal: patient stated would like to go home with home care. documented as of this encounter Visit Diagnoses Not on filedocumented in this encounter Additional Health Concerns Infection Onset Date Last Indicated Resolved Time COVID-19 Rule-Out 07/23/2023 07/23/2023 07/23/2023 1:46 PM EST documented as of this encounter Care Teams Fluid Power Mechanic Relationship Specialty Start Date End Date Rc Rojas MD [address] [place] [address] PCP - General 05/15/17 documented as of this encounter
--- OUTSIDE RECORDS SUMMARY | 2025-03-01 08:29 | XMS_ITS | Clinical Summary ---
Author Organization [facility] Address [address] [place] [address] Phone Care Team Providers Care Green House Manager Name Role Phone Unavailable Primary Care Provider Unavailabl e Social History Tobacco Use Types Packs/Day Years Used Date Smoking Tobacco: Never Assessed Sex and Gender Information Value Date Recorded Sex Assigned at Not on file Legal Sex Male 1:52 AM EST Gender Identity Not on file Sexual Orientation Not on file Plan of Treatment Not on file
--- OUTSIDE RECORDS SUMMARY | 2025-03-01 08:29 | XMS_ITS | Encounter Summary ---
Author Organization [facility] Address [address] [facility] [place] [address] Care Team Providers Care Stenotype Machine Operator Name Role Phone Rc Rojas MD Primary Care Provider [phone] Reason for Visit * Reason Comments Med Refill Encounter Details Date Type Department Care Team (Late st Contact Info) Description 01/29/2023 Refill [facility] Cardiology [address] [place] [phone] Zaina Bob CNP [address] [place] [address] Coronary artery disease, unspecified vessel or lesion type, unspecified whether angina present, unspecified whether [place] or transplanted heart Social History Tobacco Use [...] Description 04/06/2025 2:30 PM EDT [facility] Visit [facility] [address] [place] [address] Ezra Jean Baptiste MD [address] [place] [address] 06/01/2025 10:00 AM EST Follow-Up [facility] Infectious Disease [address] [facility], [address] [place] [address] Pia Lam, MATH TEACHER [address] [facility]/[place] [address] documented as of this encounter Visit Diagnoses Diagnosis Coronary artery disease, unspecified vessel or lesion type, unspecified whether angina present, unspecified whether [place] or transplanted heart documented in this encounter Care Teams Stenotype Machine Operator Relationship Specialty Start Date End Date Rc Rojas MD [address] [place] [address] PCP - General 07/24/22 documented as of this encounter
--- OUTSIDE RECORDS SUMMARY | 2025-03-01 08:29 | XMS_ITS | Encounter Summary ---
Author Organization [facility] Address [id number] [address] [place] [address] Care Team Providers Care Lube Worker Name Role Phone Rc Rojas MD Primary Care Provider [phone] Encounter Details Date Type Department Care Team (Late st Contact Info) Description 06/13/2024 Telephone [facility] [address] [place] [address] Demetria Waters Social History Tobacco Use Types Packs/Day Years Used Date Smoking Tobacco: Never Smokeless Tobacco: Never Alcohol Use Standard Drinks/Week Comments Not Currently 0 (1 standard drink = 0.6 oz pur e alcohol) rarely [facility] Utilities Answer Date Recorded In the past [...] got money to buy more. Never True 05/20/2024 Within the past 12 months th e food we bought just didn't last and we didn't have money to get more. Never True 05/20/2024 Purpose - Life Answer Date Recorded Purpose and direction in life Unknown Sex and Gender Information Value Date Recorded Sex Assigned at Not on file Legal Sex Male 11:43 AM EDT Gender Identity Not on file Sexual Orientation Not on file documented as of this encounter Miscellaneous Notes * Telephone Encounter - Demetria Waters - 06/13/2024 5:27 PM EST Contract: [id number] [phone] re orders for blood cultures Secure georgette Schuster documented in this encounter Plan of Treatment Upcoming Encounters Date Type Department Care Team (Late st Contact Info) Description 03/30/2025 11:00 AM EDT Office Visit [facility] Pulmonary/Sleep Medicine [address] [address] Melany Landa DO [address] [address] documented as of this encounter Goals Goal Patient Goal Type Associated Problems Recent Progress Patient-Stated? Author home General Yes Alondra Dawson, RN Note: Evaluation of progress towards goal: patient stated would like to go home with home care. SNF General Yes Amber Soto LSW Note: Evaluation of progress towards goal: Return to [facility] documented as of this encounter Visit Diagnoses Not on filedocumented in this encounter Care Teams Lube Worker Relationship Specialty Start Date End Date Rc Rojas MD [address] [place] [address] PCP - General 05/15/17 documented as of this encounter
--- OUTSIDE RECORDS SUMMARY | 2025-03-01 08:29 | XMS_ITS | Encounter Summary ---
Author Organization [facility] Address [address] [place] [address] Care Team Providers Care Cylinder Inspector And Tester Name Role Phone Rc Rojas MD Primary Care Provider [phone] Reason for Visit * Reason Comments Med Refill Encounter Details Date Type Department Care Team (Late st Contact Info) Description 03/02/2023 Refill [facility] Cardiology [address] [place] [phone] Zaina Bob CNP [address] [place] [address] Palpitations Social History Tobacco Use Types Packs/Day Years [...] Description 04/06/2025 2:30 PM EDT Office Visit [facility] [address] [place] [address] Ezra Jean Baptiste MD [address] [place] [address] 06/01/2025 10:00 AM EST Follow-Up [facility] Infectious Disease [address], [address] [place] [address] Pia Lam, KEEPER HEAD [address] [facility] [address] documented as of this encounter Visit Diagnoses Diagnosis Palpitations documented in this encounter Care Teams Cylinder Inspector And Tester Relationship Specialty Start Date End Date Rc Rojas MD [address] [place] [address] PCP - General 07/24/22 documented as of this encounter
--- OUTSIDE RECORDS SUMMARY | 2025-03-01 08:29 | XMS_ITS | Encounter Summary ---
Author Organization [facility] Address [address] [place] [address] Care Team Providers Care Baked Goods Stock Clerk Name Role Phone Rc Rojas MD Primary Care Provider [phone] Encounter Details Date Type Department Care Team (Late st Contact Info) Description 04/21/2024 Clinisync Result Encounter [facility] External Department Unsolicited [...] often do you attend chur ch or buddhist services? Never 04/01/2024 Do you belong to any clubs o r organizations such as cheondoism groups, unions, fraternal or athletic groups, or [...] care, and heating? Not very hard 04/01/2024 [facility] of Occupat ional Health - Occupational [...] any time in the past 12 m [facility], were you homeless or living in a assisted (including now)? No 04/01/2024 Sex and Gender [...] Office Visit [facility] [address] [place] [address] Rc Rojas MD [address] [place] [address] documented as of this encounter Goals Goal Patient Goal Type Associated Problems Recent Progress Patient-Stated? Author Help patient manage antidepressant medication Care Plan Patient on antidepressant monitoring plan No MARILU CLARK Baseline PHQ-9 Care Plan Baseline PHQ-9 No MARILU CLAKR documented as of this encounter Procedures Procedure Name Priority Date/Time Associated Diagnosis Comments XR CHEST 2V 04/21/2024 4:36 PM EDT documented in this encounter Results * XR CHEST 2V (04/21/2024 4:36 PM EDT) Anatomical Region Laterality Modality Other 04/21/2024 4:36 PM EDT Narrative 04/21/2024 4:38 PM EDT [address] [address] XRay Report Signed Patient: PAM GRAHAM MR#: [id number] : 1965 Acct:[id number] Age/Sex: 59 / M ADM Date: 04/21/24 Loc: LAB Attending Dr: KRIS DENSON Ordering Physician: KRIS DENSON Date of Service: 04/21/24 Procedure(s): XR chest 2V Accession Number(s): [id number] cc: KRIS DENSON; Rc Rojas M.D. [address] [address] Patient Name: PAM GRAHAM MRN: [id number] date: 1965 Sex: M Assigned Patient Location: LAB Current Patient Location: LAB Accession/Order Number: [id number] Exam Date: 04/21/2024 10:55 Report Date: 04/21/2024 16:36 At the request of: KRIS DENSON Procedure: XR chest 2V EXAM: XR chest 2V CLINICAL INDICATION: Sales Marketing Director Drug Therapy COMPARISON: None TECHNIQUE: 2 views of chest performed. FINDINGS: Left chest wall cardiac device in place with intact leads overlying the right heart. Lungs: No convincing focal infiltrates. No pleural effusion or pneumothorax. Heart: Cardiac and mediastinal contours are unremarkable. No overt pulmonary vascular congestion. Osseous structures: No acute abnormalities. XR/XR chest 2V IMPRESSION: No acute cardiopulmonary process. Electronically authenticated by: HARSHAL BRANDON Date: 04/21/2024 16:36 Dictated By: Harshal Brandon M.D. Signed By: 04/21/241637 DD/ 35 TD/TT: Electrical Wirer: Procedure Note Radiology, Radiologist, MD - 04/21/2024 [place] [address] XRay Report Signed Patient: PAM GRAHAM LMR#: [id number] : 1965Acct:[id number] Age/Sex: 59 / MADM Date: 04/21/24 Loc: LAB Attending Dr: KRIS DENSON Ordering Physician: KRIS DENSON Date of Service: 04/21/24 Procedure(s): XR chest 2V Accession Number(s): [id number] cc: KRIS DENSON; Rc Rojas M.D. The [address] [address] Patient Name: PAM GRAHAM MRN: [id number] date: 1965 Sex: M Assigned Patient Location: LAB Current Patient Location: LAB Accession/Order Number: [id number] Exam Date: 04/21/2024 10:55 Report Date: 04/21/2024 16:36 At the request of: KRIS DENSON Procedure: XR chest 2V EXAM: XR chest 2V CLINICAL INDICATION: Alf Drug Therapy COMPARISON: None TECHNIQUE: 2 views of chest performed. FINDINGS: Left chest wall cardiac device in place with intact leads overlying theright heart. Lungs: No convincing focal infiltrates. No pleural effusion orpneumothorax. Heart: Cardiac and mediastinal contours are unremarkable. No overtpulmonary vascular congestion. Osseous structures: No acute abnormalities. XR/XR chest 2V IMPRESSION: No acute cardiopulmonary process. Electronically authenticated by: HARSHAL BRANDON Date: 04/21/2024 16:36 Dictated By: Harshal Brandon M.D. Signed By:04/21/248 DD/ 35 TD/TT: Electrical Wirer: [email or web address] External Data Provider [facility] Final Result documented in this encounter Visit Diagnoses Not on filedocumented in this encounter Additional Health Concerns Active Problems Noted Date Diagnosed Date Patient on antidepressant monitoring plan 2023 Baseline PHQ-9 12/30/2023 documented as of this encounter Care Teams Baked Goods Stock Clerk Relationship Specialty Start Date End Date Rc Rojas MD [address] [place] [address] PCP - General Family Medicine 10/31/23 documented as of this encounter
--- OUTSIDE RECORDS SUMMARY | 2025-03-01 08:29 | XMS_ITS | Encounter Summary ---
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 Never 04/01/2024 Do you belong to any clubs o r organizations such as adventism groups, unions, fraternal or athletic groups, or [...] 04/01/2024 [facility] - Occupational Stress Questionnaire Answer Date [...] any time in the past 12 m [facility], were you homeless or living in a snf (including now)? No 04/01/2024 Sex and Gender Information Value Date Recorded Sex Assigned at Male 12/13/2022 8:38 AM EDT Legal Sex Male 10:11 PM EDT Gender Identity Not on file Sexual Orientation Not on file documented as of this encounter Miscellaneous Notes * Telephone Encounter - MARILU CLARK - 02/24/2025 12:48 PM EDT MEDICATION SENT TO [facility] documented in this encounter Plan of Treatment Upcoming Encounters Date Type Department Care Team (Late st Contact Info) Description 03/18/2025 1:30 PM EDT Office Visit [facility] [address] [place] [address] Rc Rojas MD [address] [place] [phone] documented as of this encounter Goals Goal [...] documented as of this encounter Care Teams Patient Financial Advocate Relationship Specialty Start Date End Date Rc Rojas MD [address] [place] [address] PCP - General Family Medicine 10/31/23 documented as of this encounter
--- OUTSIDE RECORDS SUMMARY | 2025-03-01 08:30 | XMS_ITS | Encounter Summary ---
Author Organization [facility] tem Address [id number] [address] [place] [address] Care Team Providers Care Utility Worker Name Role Phone Rc Rojas MD Primary Care Provider [phone] Encounter Details Date Type Department Care Team (Late st Contact Info) Description 09/19/2022 Telephone [facility] [address] [place] [phone] Anel Nixon, FRANNIE Social History Tobacco Use [...] have Coronavirus / COVID-19? No / Unsure 09/19/2022 1:25 PM EST documented as of this encounter Plan of Treatment Upcoming Encounters Date Type Department Care Team (Late st Contact Info) Description 03/30/2025 11:00 AM EDT Office Visit [facility] Pulmonary/Sleep Medicine [address] [facility] [address] [place] [phone] Melany Landa DO [address] [address] documented as of this encounter Goals Goal [...] documented as of this encounter Care Teams Utility Worker Relationship Specialty Start Date End Date Rc Rojas MD [address] [place] [address] PCP - General 05/15/17 documented as of this encounter
--- OUTSIDE RECORDS SUMMARY | 2025-03-01 08:30 | XMS_ITS | Encounter Summary ---
Author Organization [place] [employer] [facility] tem Address [id number] [address] [place] [address] Care Team Providers Care Adhesive Sprayer Name Role Phone Rc Rojas MD Primary Care Provider [phone] Encounter Details Date Type Department Care Team (Late st Contact Info) Description 09/07/2022 Telephone [facility] [address] [place] [phone] Anel Nixon, FRANNIE Social History Tobacco Use [...] have Coronavirus / COVID-19? No / Unsure 09/05/2022 1:12 PM EST documented as of this encounter Plan of Treatment Upcoming Encounters Date Type Department Care Team (Late st Contact Info) Description 03/30/2025 11:00 AM EDT Office Visit [facility] Pulmonary/Sleep Medicine [address] [facility] [address] [place] [phone] Melany Landa DO [address] [address] documented as of this encounter Goals Goal [...] documented as of this encounter Care Teams Adhesive Sprayer Relationship Specialty Start Date End Date Rc Rojas MD [address] [place] [address] PCP - General 05/15/17 documented as of this encounter
--- OUTSIDE RECORDS SUMMARY | 2025-03-01 08:30 | XMS_ITS | Encounter Summary ---
Author Organization [facility] Address [address] [place] [address] Care Team Providers Care Business Analytics Manager Name Role Phone Rc Rojas MD Primary Care Provider [phone] Reason for Visit * Reason Comments Med Refill Encounter Details Date Type Department Care Team (Late st Contact Info) Description 05/15/2024 Refill [facility] [address] [place] [address] Rc Rojas MD [address] [place] [address] Chronic GERD Social History Tobacco Use Types Packs/Day Years [...] How often do you attend chur or jew services? Never 04/01/2024 Do you belong to any clubs o r organizations such as adventist groups, unions, fraternal or athletic groups, or [...] care, and heating? Not very hard 04/01/2024 [facility] of Occupat ional Health - Occupational Stress [...] any time in the past 12 m [facility], were you homeless or living in a [...] 03/18/2025 1:30 PM EDT Office Visit [facility] [address] [place] [phone] Rc Rojas MD [address] [phone] documented as of this encounter Goals Goal Patient Goal Type Associated Problems Recent Progress Patient-Stated? Author Help patient manage antidepressant medication Care Plan Patient on antidepressant monitoring plan No MARILU CLARK Baseline PHQ-9 Care Plan Baseline PHQ-9 No MARILU CLARK documented as of this encounter Visit Diagnoses Diagnosis Chronic GERD documented in this encounter Additional Health Concerns Active Problems Noted Date Diagnosed Date Patient on antidepressant monitoring plan 2023 Baseline PHQ-9 12/30/2023 documented as of this encounter Care Teams Business Analytics Manager Relationship Specialty Start Date End Date Rc Rojas MD [address] [place] [address] PCP - General Family Medicine 10/31/23 documented as of this encounter
[2025-03-01 08:40] LABS: Hemoglobin 11.0 g/dL (14.0-18.0)
--- OUTSIDE RECORDS SUMMARY | 2025-03-01 08:45 | XMS_ITS | CCD ---
Author Organization [facility] Care Team Providers Care Starter Mechanic Name Role Phone PHYSICIAN, DEFAULT Unavailable Unavailable PHYSICIAN, DEFAULT Unavailable Unavailable ANJALI CATRACHO Unavailable Unavailable ANJALI CATRACHO Unavailable Unavailable RC CROCKER Unavailable Unavailable RC CROCKER Unavailable Unavailable PHYSICIAN, DEFAULT Unavailable Unavailable PHYSICIAN, DEFAULT Unavailable Unavailable RC CROCKER Unavailable Unavailable Mitra Flores Unavailable MISC, DR WARD Attending Unavailable MISC, DR WARD Admitting Unavailable JUNIOR, LUISA Attending Unavailable JUNIOR, LUISA Consulting Unavailable JUNIOR, LUISA Admitting Unavailable NADDR RC SPEARS A Primary Care Unavailable NADERER, DR RC Mcneal Primary Care Unavailable ALGHOTHANI, MOHAMAD Admitting Unavailable ALGHOTHANI, MOHAMAD Attending Unavailable ALGHOTHANI, MOHAMAD Consulting Unavailable ALGHOTHANI, MOHAMAD Admitting Unavailable ALGHOTHANI, MOHAMAD Attending Unavailable Roe Almaraz Unavailable MD Rc Crocker Primary Care Provider MD Roe Almaraz Attending Provider [phone] Angella Savage Unavailable Tiesha George Unavailable MD Rc Crocker Primary Care Provider MD Roe Almaraz Attending Provider MONICA George Attending Provider [phone] LASHON Mahan Attending Provider Rc Crocker MD Primary Care Provider [phone] ENRIQUE Eranndez Emergency Provider NO FAMILY, PHYSICIAN Primary Care Provider Unava ilable Unavailable Primary Care Provider Unavailabl e Unavailable Primary Care Provider Unavailabl e Zahida Mahan Attending Unavailable Zahdia Mahan Admitting Unavailable Tiesha George Attending Unavailable Tiesha George Admitting Unavailable Awais, Darren Matute Attending Unavailable Ernandez, Darren J Admitting Unavailable NO FAMILY, PHYSICIAN Primary Care Unavailable Sudheer Qiu Consulting Unavailable Roe Almaraz Attending Unavailable Roe Almaraz Admitting Unavailable Rc Crocker Primary Care Unavailable PROVIDER, UNKNOWN Admitting Unavailable PROVIDER, UNKNOWN Attending Unavailable ERNANDEZ, DARREN Referring Unavailable PROVIDER, UNKNOWN Admitting Unavailable PROVIDER, UNKNOWN Attending Unavailable JUAN MAKI Referring Unavailable MALUSO, ROJELIO Admitting Unavailable ERNANDEZ, DARREN Referring Unavailable PROVIDER, UNKNOWN Attending Unavailable MALUSMaria, ROJELIO Admitting Unavailable PROVIDER, UNKNOWN Attending Unavailable ERNANDEZ, DARREN Referring Unavailable MALUSO, ROJELIO Admitting Unavailable PROVIDER, UNKNOWN Attending Unavailable ERNANDEZ, DARREN Referring Unavailable MALUSO, ROJELIO Admitting Unavailable PROVIDER, UNKNOWN Attending Unavailable ERNANDEZ, DARREN Referring Unavailable MALUSO, ROJELIO Admitting Unavailable PROVIDER, UNKNOWN Attending Unavailable ERNANDEZ, DARREN Referring Unavailable KAYODE BIGGS Attending Unavailable PROVIDER, UNKNOWN Admitting Unavailable PROVIDER, UNKNOWN Admitting Unavailable PROVIDER, UNKNOWN Attending Unavailable PROVIDER, UNKNOWN Admitting Unavailable PROVIDER, UNKNOWN Attending Unavailable SANDRA, ROJELIO Admitting Unavailable PROVIDER, UNKNOWN Attending Unavailable ERNANDEZ, DARREN Referring Unavailable CONSULT, IP NEPHROLOGY Consulting Unavailab le REQUEST, IP SOCIAL WORK SERVICE Consulting Unavailable REQUEST, IP PHYSICAL THERAPY SERVICE Consulting Unavailable REQUEST, IP OCCUPATIONAL THERAPY SERVICE Consult ing Unavailable [phone], IP TEAM TRAUMA Consulting Unavail able CONSULT, IP CARDIOLOGY ELECTROPHYSIOLOGY (EP) Co nsulting Unavailable CONSULT, IP PSYCHIATRIC ADULT Consulting Un available CONSULT, IP ENDOCRINOLOGY Consulting Unavai lable CONSULT, IP CARDIOLOGY Consulting Unavailab le ERNANDEZ, DARREN Referring Unavailable PROVIDER, UNKNOWN Admitting Unavailable PROVIDER, UNKNOWN Attending Unavailable PROVIDER, UNKNOWN Admitting Unavailable UMANGUSMaria, ROJELIO Admitting Unavailable PROVIDER, UNKNOWN Attending Unavailable ERNANDEZ, DARREN Referring Unavailable MALUSO, ROJELIO Admitting Unavailable PROVIDER, UNKNOWN Attending Unavailable ERNANDEZ, DARREN Referring Unavailable MALUSO, ROJELIO Admitting Unavailable PROVIDER, UNKNOWN Attending Unavailable ERNANDEZ, DARREN Referring Unavailable ASA CRAVEN Attending Unavailable HARRISON TOBIN Referring Unavailable RC CROCKER Primary Care Unavailable JOHANNA WARNER Consulting Unavailable MONICA GARCIA Admitting Unavailable GIO ALMEIDA Consulting Unavailable ONLY), IP WOUND CARE SERVICES (INPATIENT Consult ing Unavailable FRANKLIN ESTRADA Consulting Unavailable CARDIOLOGY, [facility] Consulting Unavailable DIVISION OF INFECTIOUS DISEASE, [facility] Consulting Unavailable STEFFANIE DE GUZMAN Consulting UnavailKOBI Givens Consulting Unavailable HARRISON TOBIN Referring Unavailable NADERER, RC Primary Care Unavailable MONICA GARCIA Referring Unavailable NADREGAN, RC Primary Care Unavailable OSMAR RANGEL Referring Unavailable NADERER, RC Primary Care Unavailable Rc Crocker MD Primary Care Provider OBI, RC Primary Care Unavailable ZAHIDA GONZALEZ Attending Unavailable NADERETereso, RC Referring Unavailable NADERETereso, RC Primary Care Unavailable NADERETereso, RC Primary Care Unavailable HARRISON MALDONADO Attending Unavailable NADERETereso, RC Primary Care Unavailable NADERETereso, RC Attending Unavailable NADERETereso, RC Attending Unavailable XAVIER ROLAND Attending Unavailable ANUPAMERETereso, RC Attending Unavailable JAZMYNE DENSON Attending Unavailable PASHACELESTINO MACARIO Attending Unavailable PASHA, CELESTINO Attending Unavailable PASHA, CELESTINO Attending Unavailable SHIELA BOB Attending Unavailable Unavailable Unavailable Unavailable Allergies Allergy Classification Reported Allergen(s) Allergy Type Date of Onset Reaction(s) Facility (9 sources) Penicillins; Translations: [PENICILLINS] Drug allergy (disorder) 7 [facility], Fainting [facility] Repository (1 source) No Known Allergies; Translations: [No Known Allergies] Propensity to adverse reactions (disorder) [facility] Repository (20 sources) Penicillin G Drug Allergy 3 Unknown [facility] (2 sources) Penicillin; Translations: [PENICILLIN] Drug Allergy 2 [facility] Repository (1 source) Allergies Reconciled Propensity to adverse reactions Unknown [facility] Other (10 sources) Penicillins Propensity to adverse reactions to drug 4 Faint Feeling [facility] (1 source) Penicillin Drug Allergy 4 [facility] Repository (1 source) Penicillins Drug allergy (disorder) 4 [facility] Repository (1 source) Penicillins Propensity to adverse reactions to drug 7 [facility] Work Phone: Medications Current Medications Medication Drug Class(es) Dates Sig (Normalized) Sig (Original) acetaminophen 500 mg oral tablet (20 sources) Start: 05-15-2024 take 2 tablets by mouth every six hours acetaminophen (TYLENOL) 500 MG tablet Take 2 Tablets by mouth every 6 (six) hours. 30 Tablet 05/15/2024 Active Start: 06-04-2023 End: 05-02-2024 take 1000 mg by mouth every six hours take 2 tablets by mo uth every six hours as needed Acetaminophen 500 MG capsule 2 tabs at needed Orally every 6 hrs PRN Active acetaminophen 325 mg / HYDROcodone bitartrate 5 mg oral tablet (20 sources) Opioid Agonist Start: 09-02-2024 End: 02-28-2025 take 1 tablet by mouth four times daily as needed for pain HYDROcodone-acetaminophen ([place]) 5-325 MG tablet Indications: Diabetic peripheral neuropathy (HCC) Take 1 tablet by mouth 4 (four) times a day as needed for severe pain 120 tablet 01/29/2025 02/28/2025 Active Start: 02-04-2024 End: 05-30-2024 take 1 tablet by mouth four times daily as needed for pain HYDROcodone-acetaminophen ([place]) 5-325 MG tablet Indications: Diabetic peripheral neuropathy (CMS/HCC) Take 1 tablet by mouth 4 (four) times a day as needed for severe pain or moderate pain 120 tablet 04/01/2024 05/01/2024 Active Start: 06-04-2023 take 1 tablet by sheryl th every six hours Hydrocodone-Acetaminophen ([place]) 5-325 mg Tablet Active 1 TAB PO [...] tablet by mouth every eight hours Hydrocodone-Acetaminophen ([place]) 5-325 mg tablet Discontinued 1 TAB PO Q8H 30 January 07, 2020 June 04, 2023 8:30am albuterol 0.83 mg/ml inhalation solution (2 sources) beta2-Adrenergic Agonist Start: 04-30-2024 amiodarone hydrochloride 200 mg oral tablet (20 sources) Antiarrhythmic Start: 06-04-2022 Amiodarone HCl 200MG Amiodarone HCl( 200MG Oral 1 two times daily ) Active -Hx Entry Oral two times daily for 0 *Pick strength-form from [employer] for eRX* May, Active Start: 12-31-2019 take 1 tablet by sheryl th once daily amiodarone (CORDARONE) 200 MG tablet Take 1 Tablet by mouth daily. 30 Tablet 05/16/2024 Active Start: 09-16-2019 End: 12-31-2019 take 200 mg by mouth twice daily Amiodarone Discontinued 200 MG PO Twice daily 60 September 16, 2019 1:00am December 31, 2019 9:00am amoxicillin 250 mg oral capsule (13 sources) Penicillin-class Antibacterial take 1 capsule by mouth in the morning amoxicillin (Amoxil) 250 MG capsule Take 250 mg by mouth in the morning and 250 mg before bedtime. Active apixaban 5 mg oral tablet (20 sources) Factor Xa Inhibitor Start: 05-05-20 take 1 tablet by mouth twice daily Apixaban (ELIQUIS) 5 MG tablet Take 1 Tablet by mouth 2 times daily. 60 Tablet 05/15/2024 Active Start: 06-04-2022 take 1 tablet by sheryl th twice daily Apixaban (Eliquis) 5 mg tablet Active 5 MG PO Twice daily June 04, 2023 1:00am Start: 09-16-2019 End: 10-20-2019 take 1 tablet by mouth twice daily Apixaban (Eliquis) 5 mg Tablet Discontinued 5 MG PO Twice daily 60 September 16, 2019 1:00am October 20, 2019 9:49am Eliquis 5 MG tab let every 12 (twelve) hours. Active ascorbic acid 100 mg / d-biotin 0.3 mg / folic acid 1 mg / niacinamide 20 mg / pantothenic acid 10 mg / pyridoxine hydrochloride 10 mg / riboflavin 1.7 mg / thiamine 1.5 mg / vitamin b12 0.006 mg oral tablet (7 sources) Vitamin B12, Vitamin C Start: 05-16-2024 take 1 tablet by mouth once daily [facility] tablet Take 1 Tablet by mouth daily. 60 Tablet 05/16/2024 Active Start: 05-16-2024 Start: 05-05-2024 aspirin 81 mg delayed release oral tablet (20 sources) Platelet Aggregation Inhibitor, Nonsteroidal Anti-inflammatory Drug Start: 08-31-2019 take 1 tablet by mouth once jacy y Aspir-Low 81 MG 1 tablet Orally Once a day for 30 day(s) Active atorvastatin 40 mg oral tablet (20 sources) HMG-CoA Reductase Inhibitor Start: 06-04-2023 take 1 tablet by mouth once daily atorvastatin (LIPITOR) 40 mg tablet Take 1 Tablet by mouth daily. 11/04/2023 Active B complex-vitamin C-folic acid (DIALYVITE) 100-1 mg tablet (1 source) Start: 05-29-2024 take 1 tablet by mouth in the morning B complex-vitamin C-folic acid (DIALYVITE) 100-1 mg tablet Take 1 tablet by mouth in the morning. 05/29/2024 Active bisacodyl 10 mg rectal suppository (2 sources) Stimulant Laxative Start: 05-15-2024 Start: 05-07-2024 End: 05-07-2024 Blood Glucose Test (3 sources) Start: 07-23-2022 Blood Glucose Test Blood Glucose Test , 3 Strip daily # 100, 07/23/2022, Ref. x11. Active miscellaneous daily for 0 Dx: DM II E11.29 Jul, Active cholecalciferol 0.05 mg oral tablet (20 sources) Vitamin D Start: 05-29-2024 take 1 tablet by mouth in the morning cholecalciferol, vitamin D3, 2,000 units tablet Take 1 tablet (2,000 Units total) by mouth in the morning. 05/29/2024 Active Start: 05-16-2024 cholecalcifero l (Vitamin D-3) 25 MCG tablet Take 1,000 Units by mouth in the morning. 05/16/2024 Active Start: 05-06-2024 take 1 tablet by sheryl th once daily cholecalciferol (CHOLECALCIFEROL) 25 MCG TABS tablet Take 1 Tablet by mouth daily. 60 Tablet 05/16/2024 Active ciprofloxacin 2 mg/ml otic solution (5 sources) Quinolone Antimicrobial Start: 01-05-2022 Ciprofloxacin HCl 0.2 % 1-2 drops into affected ear Otic every 12 hrs for 7 day(s) Dec, Active clotrimazole 10 mg/ml topical cream (4 sources) Azole Antifungal Start: 12-08-2024 End: 01-05-2025 clotrimazole (Lotrimin) 1 % cream Indications: Oophoritis Apply topically in the morning and before bedtime. Do all this for 28 days. 30 g 2 12/08/2024 01/05/2025 Active cyclobenzaprine hydrochloride 10 mg oral tablet (3 sources) Muscle Relaxant Start: 09-29-2019 take 1 tablet by mouth three times daily as needed Cyclobenzaprine HCl 10MG Cyclobenzaprine HCl 10MG, 1 (one) Tablet three times daily, as needed # 30, 09/29/2019, Ref. x1. Active Oral three times daily, as needed for 0 *Pick strength-form from [facility] for eRX* Sep, Active 0.5 ml darbepoetin antione 0.2 mg/ml prefilled syringe (1 source) Erythropoiesis-st imulating Agent Start: 06-02-2024 inject 0.5 mL by subcutaneous injection every week darbepoetin antione-polysorbate (ARANESP) 100 mcg/0.5 mL syringe Indications: ESRD on Dialysis , anemia due to renal failure Inject 0.5 mL (100 mcg total) under the skin once a week Indications: ESRD on Dialysis, anemia due to kidney failure. 06/02/2024 Active docusate sodium 100 mg oral capsule (20 sources) Start: 07-02-2023 End: 10-29-2024 take 1 capsule by mouth in the morning docusate sodium (Colace) 100 MG capsule Indications: Constipation due to opioid therapy Take 1 capsule (100 mg) by mouth in the morning and 1 capsule (100 mg) before bedtime. 60 capsule 3 10/29/2024 Active Start: 06-04-2023 take 100 mg by mouth once jacy y Docusate Sodium Active 100 MG PO Daily June 04, 2023 1:00am Start: 12-18-2022 take 1 capsule by [facility] every twelve hours docusate sodium (COLACE) 100 mg capsule Take 1 capsule (100 mg total) by mouth every 12 (twelve) hours. 60 capsule 12/18/2022 Active doxycycline hyclate 100 mg oral capsule (12 sources) Tetracycline-class Drug Start: 03-23-2024 take 100 mg by mouth twice daily Doxycycline Hyclate Active 100 MG PO Twice daily 03 05March 23, 2024 12:00am Start: 07-19-2023 take 1 tablet by sheryl th every twelve hours Doxycycline Hyclate 100 MG 1 tablet Orally Twice a day for 10 day(s) Jul, Active take 1 tablet by sheryl th in the morning, then take 1 tablet by mouth at bedtime doxycycline (Adoxa) 50 MG tablet Take 50 mg by mouth in the morning and 50 mg before bedtime. Take with a full glass of water and do not lie down for at least 30 minutes after.. Active epoetin antione-epbx (RETACRIT) 66751 UNIT/ML SOLN injection (5 sources) Start: 05-18-2024 inject 1 mL intravenously once epoetin antione-epbx (RETACRIT) 02863 UNIT/ML SOLN injection 1 mL by Intravenous Push route every Saturday, Saturday, Saturday. 6.6 mL 05/18/2024 Active ergocalciferol 1.25 mg oral capsule (20 sources) Provitamin D2 Compound Start: 05-06-2024 End: 07-01-2024 Start: 06-04-2022 Ergocalciferol 1.25 MG(76342 UT) Ergocalciferol( 1.25 MG(62159 UT) Oral 1 weekly ) Active -Hx Entry Oral weekly for 0 *Pick strength-form from [facility] for eRX* May, Active Start: 08-31-2019 End: 09-27-2019 take 1 tablet by mouth every week Ergocalciferol (Vitamin D2) Discontinued 1 TAB PO every week August 31, 2019 12:00am September 27, 2019 8:49am Start: 08-31-2019 End: 09-27-2019 take 1 tablet by mouth every week Ergocalciferol (Vitamin D2) Discontinued 1 TAB PO every week August 31, 2019 1:00am September 27, 2019 9:49am Ergocalciferol ( Vitamin D2) 10 MCG (400 UNIT) tablet 1 (one) time each day at the same time. Active erythromycin 250 mg oral tablet (7 sources) Macrolide, Macrolide Antimicrobial Start: 05-10-2024 take 2 tablets by mouth twice daily erythromycin base (E-MYCIN) 250 MG tablet Take 2 Tablets by mouth 2 times daily. 40 Tablet 05/15/2024 Active ferrous sulfate (8 sources) Start: 06-04-2022 Ferrous Sulfate 324 (65 Fe)MG Ferrous Sulfate( 324 (65 Fe)MG Oral 1 daily ) Active -Hx Entry Oral daily for 0 *Pick strength-form from [facility] for eRX* May, Active Start: 09-16-2019 End: 09-27-2019 take 324 mg by mouth once daily Ferrous Sulfate Discontinued 324 MG PO Daily September 16, 2019 1:00am September 27, 2019 9:49am folic acid 1 mg oral tablet (8 sources) Start: 05-11-2024 take 1 tablet by mouth once daily folic acid 1 MG tablet Take 1 Tablet by mouth daily. 30 Tablet 05/16/2024 Active Start: 05-06-2024 folic acid-vitamin B complex-vitamin M-ctcbshnc-tcip (Dialyvite) 3 MG tablet (13 sources) take 1 tablet by mouth once daily folic acid-vitamin B complex-vitamin M-wgzzhywf-gijy (Dialyvite) 3 MG tablet Take 1 tablet by mouth Daily Active gabapentin 300 mg oral capsule (20 sources) Anti-epileptic Agent Start: take 1 capsule by mouth at bedtime gabapentin (Neurontin) 300 MG capsule Indications: Diabetic peripheral neuropathy (HCC) Take 1 capsule (300 mg) by mouth at bedtime 30 capsule 2 12/08/2024 Active Start: 09-14-2024 End: 12-08-2024 take 1 capsule by mouth at bedtime gabapentin (Neurontin) 100 MG capsule Indications: Diabetic peripheral neuropathy (CMS/HCC) Take 1 capsule by mouth at bedtime 90 capsule 09/14/2024 12/08/2024 Discontinued (Reorder) Start: 04-25-2022 End: 06-14-2024 take 1 capsule by mouth at bedtime gabapentin (Neurontin) 100 MG capsule Indications: Diabetic peripheral neuropathy (CMS/HCC) Take 1 capsule by mouth at bedtime 90 capsule 2 07/03/2023 Active 12 hr guaiFENesin 600 mg extended release oral tablet (20 sources) Start: 05-29-2024 take 1 tablet by mouth every twelve hours guaiFENesin (Mucinex) 600 MG 12 hr tablet Take 1 tablet by mouth every 12 (twelve) hours 05/29/2024 Active Start: 05-14-2024 take 1 tablet by sheryl th twice daily guaifenesin (MUCINEX) 600 MG SR tablet Take 1 Tablet by mouth 2 times daily. 60 Tablet 05/15/2024 Active take 1 tablet by mouth once guai FENesin (MUCINEX) 600 mg tablet extended release 12hr Take 1 tablet (600 mg total) by mouth every 12 (twelve) hours. Active sodium hypochlorite 1.25 mg/ml topical solution (1 source) Start: 05-28-2024 sodium hypochlorite (DAKIN'S 1/4 STRENGTH) 0.125 % solution external solution Apply 1 Application topically in the morning and 1 Application before bedtime. 05/28/2024 Active 3 ml insulin glargine 100 unt/ml pen injector (7 sources) Insulin Analog Start: 05-15-2024 inject 8 [IU] by subcutaneous injection at bedtime insulin glargine (LANTUS SOLOSTAR/BASAGLAR KWIKPEN) 100 UNIT/ML pen Inject 8 Units under the skin at bedtime. 15 mL 5 05/15/2024 Active Start: 05-10-2024 insulin isophane, human 70 unt/ml / insulin, regular, human 30 unt/ml injectable suspension (20 sources) Insulin Start: 09-08-2024 End: 09-08-2024 insulin NPH-insulin regular (NovoLIN) (70-30) 100 UNIT/ML injection Indications: Type 2 diabetes mellitus with hyperglycemia, with long-term current use of insulin ([facility]) Inject 30 Units under the skin at bedtime 10 mL 5 09/08/2024 Active Start: 01-22-2024 inject 70 [IU] by gallegos bcutaneous injection in the morning insulin NPH-insulin regular (NovoLIN 70/30 FlexPen) (70-30) 100 UNIT/ML injection Indications: 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 3 mL 5 01/22/2024 Active Start: 08-31-2019 Insulin Nph An d Regular [...] SUBCUT Twice daily August 31, 2019 1:00am inject 0.3 mL by sub cutaneous injection once daily before mealtime insulin NPH and regular human (NovoLIN 70-30) 100 unit/mL (70-30) injection Inject 0.3 mL (30 Units total) under the skin daily with breakfast. In am before meal Active NovoLIN 70/30 Re liOn (70-30) 100 UNIT/ML 30 units Subcutaneous once a day Active NovoLIN 70/30 Re liOn (70-30) 100 UNIT/ML 85 units Subcutaneous bid Active insulin, regular, human 100 unt/ml injectable solution (9 sources) Insulin Start: 05-15-2024 End: 06-14-2024 inject 4-14 [IU] by subcutaneous injection four times daily at bedtime insulin regular (HumuLIN R) 100 UNIT/ML injection Inject 4-14 Units under the skin 4 times daily (before meals and at bedtime). 16.8 mL 05/15/2024 Active Start: 05-04-2024 End: 06-14-2024 Start: 05-03-2024 End: 05-04-2024 Start: 04-30-2024 End: 05-03-2024 Iron (7 sources) Start: 06-04-2022 take 18 mg by mouth once daily Iron 18MG Iron( 18MG Oral daily ) Active -Hx Entry Oral daily for 0 *Pick strength-form from [facility] for eRX* May, Active Start: 08-31-2019 End: 09-27-2019 take 65 mg by mouth once daily Iron Discontinued 65 MG PO Daily August 31, 2019 12:00am September 27, 2019 8:49am Start: 08-31-2019 End: 09-27-2019 take 65 mg by mouth once daily Iron Discontinued 65 MG PO Daily August 31, 2019 1:00am September 27, 2019 9:49am levothyroxine sodium 0.05 mg oral tablet (20 sources) l-Thyroxine Start: 05-09-2024 End: 12-08-2024 take 1 tablet by mouth before mealtime levothyroxine (Synthroid, Levoxyl) 50 MCG tablet Indications: Adult hypothyroidism Take 1 tablet (50 mcg) by mouth in the morning. Take before meals. 30 tablet 5 12/08/2024 Active melatonin 3 mg oral tablet (8 sources) Start: 05-15-2024 take 1 tablet by mouth at bedtime melatonin 3 MG TABS tablet Take 1 Tablet by mouth at bedtime. 30 Tablet 05/15/2024 Active Start: 05-08-2024 End: 05-12-2024 methocarbamol 750 mg oral tablet (4 sources) Muscle Relaxant Start: 04-30-2024 End: 05-25-2024 take 1 tablet by mouth every six hours methocarbamol (ROBAXIN) 750 MG tablet Take 1 Tablet by mouth every 6 hours for 10 days. 40 Tablet 05/15/2024 05/25/2024 Active 2 ml metoclopramide 5 mg/ml prefilled syringe (12 sources) Dopamine-2 Receptor Antagonist Start: 05-10-2024 Start: 03-22-2024 take 1 tablet by sheryl th four times daily metoclopramide (REGLAN) 10 MG tablet Take 10 mg by mouth 4 times daily. 03/22/2024 Active Start: 06-04-2023 End: 03-23-2024 24 hr metoprolol succinate 25 mg extended release oral tablet (20 sources) beta-Adrenergic Mike Start: 05-29-2024 take 0.5 tablet by mouth every twenty-four hours in the morning metoprolol succinate XL (TOPROL XL) 25 mg 24 hr tablet Take 0.5 tablets (12.5 mg total) by mouth in the morning. 05/29/2024 Active Start: 06-04-2022 End: 03-23-2024 take 25 mg by mouth once daily Metoprolol Succinate Di scontinued 25 MG PO Daily June 04, 2023 [...] Oral daily for 0 *Pick strength-form from [facility] for eRX* Oct, Active take 1 tablet by sheryl th once daily metoprolol succinate XL (Toprol-XL) 25 MG 24 hr tablet Take 12.5 mg by mouth Daily Do not crush or chew. Active End: 04-07-2024 take 1 tablet by mouth every twenty-four hours in the morning metoprolol succinate XL (TOPROL-XL) 25 mg 24 hr tablet Take 1 tablet (25 mg total) by mouth in the morning. Suspended naloxone hydrochloride 40 mg/ml nasal spray (6 sources) Opioid Antagonist Start: 05-15-2024 naloxone 4 m g/0.1 mL nasal liquid Use 1 [place] in one nostril (alternate sides) as needed for Drug Overdose (and call 911). every 2-3 min, until assistance arrives. 1 Each 3 05/15/2024 Active Start: 05-15-2024 NovoLIN 70/30 U-100 Insulin 100unit/mL (7 (2 sources) Start: 04-25-2022 NovoLIN 70/30 U-100 Insulin 100unit/mL (7 NovoLIN 70/30 U-100 Insulin 100unit/mL (7, 70 Unit two times daily # 2, 04/25/2022, Ref. x5. Active subcutaneous two times daily for 0 *Reorder from [facility] for eRx and Interaction Alerts* Apr, Active nystatin 100 unt/mg topical powder (12 sources) Polyene Antifungal Start: 05-15-2024 nystatin (M YCOSTATIN) 100,000 unit/g powder Apply topically 2 times daily. 60 g 05/15/2024 Active Start: 05-01-2024 Start: 12-23-2019 End: 06-04-2023 Nystatin Discontinued 1 APPL IC TOPICAL Twice daily 60 14 December 23, 2019 12:00am June 04, 2023 8:33am apply to groin areas as discussed omeprazole 40 mg delayed release oral capsule (20 sources) Proton Pump Inhibitor Start: 2025 take 1 capsule by mouth once daily omeprazole (PriLOSEC) [address] capsule Indications: Chronic GERD Take 1 capsule by mouth once daily 30 capsule 2025 Active Start: 12-28-2024 take 1 capsule by mo uth once daily omeprazole (PriLOSEC) [address] capsule Indications: Chronic GERD Take 1 capsule by mouth once daily 30 capsule 12/28/2024 Active Start: 11-25-2024 take 1 capsule by mo uth once daily omeprazole (PriLOSEC) [address] capsule Indications: Chronic GERD Take 1 capsule by mouth once daily 30 capsule 11/25/2024 Active Start: 10-28-2024 take 1 capsule by mo uth once daily omeprazole (PriLOSEC) [address] capsule Indications: Chronic GERD Take 1 capsule by mouth once daily 30 capsule 10/28/2024 Active Start: 07-05-2022 take 1 capsule by mo uth once daily omeprazole (PriLOSEC) [address] capsule Indications: Chronic GERD Take 1 capsule by mouth once daily 30 capsule 05/18/2024 Active oxyCODONE hydrochloride 5 mg oral tablet (8 sources) Opioid Agonist Start: 05-30-2024 oxyCODONE (Nicki icodone) 5 MG immediate release tablet Take 1 tablet by mouth 05/30/2024 Active Start: 04-30-2024 End: 05-19-2024 take 1 tablet by mouth every six hours as needed oxyCODONE 5 MG immediate release tablet Indications: Closed fracture of multiple ribs of left side, initial encounter , Acute post-operative pain , Acute pain due to trauma Take 1 Tablet by mouth every 6 hours as needed for up to 4 days. 16 Tablet 05/15/2024 05/19/2024 Active pantoprazole 40 mg delayed release oral tablet (1 source) Proton Pump Inhibitor Start: 05-01-2024 1 ml paricalcitol 0.005 mg/ml injection (4 sources) Vitamin D3 Analog Start: 06-04-2023 take 5 ug intravenously three times weekly Paricalcitol (Zemplar) 5 mcg/mL Solution Active 3 MCG IV 3 Times a week June 04, 2023 1:00am pioglitazone 30 mg oral tablet (20 sources) Peroxisome Proliferator Receptor alpha Agonist, Peroxisome Proliferator Receptor gamma Agonist, Thiazolidinedione Start: 2025 take 1 tablet by mouth once daily pioglitazone (Actos) 30 MG tablet Indications: Microalbuminuria due to type 2 diabetes mellitus (HCC) Take 1 tablet by mouth once daily 30 tablet 2025 Active Start: 12-28-2024 take 1 tablet by sheryl th once daily pioglitazone (Actos) 30 MG tablet Indications: Microalbuminuria due to type 2 diabetes mellitus (HCC) Take 1 tablet by mouth once daily 30 tablet 12/28/2024 Active Start: 11-03-2024 take 1 tablet by sheryl th once daily pioglitazone (Actos) 30 MG tablet Indications: Microalbuminuria due to type 2 diabetes mellitus (CMS/HCC) Take 1 tablet by mouth once daily 30 tablet 11/03/2024 Active Start: 10-06-2024 take 1 tablet by sheryl th once daily pioglitazone (Actos) 30 MG tablet Indications: Microalbuminuria due to type 2 diabetes mellitus (CMS/HCC) Take 1 tablet by mouth once daily 30 tablet 10/06/2024 Active Start: 05-25-2024 take 1 tablet by sheryl th once daily pioglitazone (Actos) 30 MG tablet Indications: Microalbuminuria due to type 2 diabetes mellitus (CMS/HCC) Take 1 tablet by mouth once daily 30 tablet 05/25/2024 Active Start: 04-23-2024 take 1 tablet by sheryl th once daily pioglitazone (Actos) 30 MG tablet Indications: Microalbuminuria due to type 2 diabetes mellitus (CMS/HCC) Take 1 tablet by mouth once daily 30 tablet 04/23/2024 Active Start: 03-23-2024 take 1 tablet by sheryl th once daily pioglitazone (Actos) 30 MG tablet Indications: Microalbuminuria due to type 2 diabetes mellitus (CMS/HCC) Take 1 tablet by mouth once daily 30 tablet 03/23/2024 Active Start: 02-24-2024 take 1 tablet by sheryl th once daily pioglitazone (Actos) 30 MG tablet Indications: Microalbuminuria due to type 2 diabetes mellitus (CMS/HCC) Take 1 tablet by mouth once daily 30 tablet 02/24/2024 Active Start: 08-31-2019 End: 08-31-2019 take 1 tablet by mouth once daily pioglitazone (Actos) 30 MG tablet Indications: Microalbuminuria due to type 2 diabetes mellitus (CMS/HCC) Take 1 tablet by mouth once daily 30 tablet 03/23/2024 Active take 1 tablet by sheryl th every twenty-four hours Pioglitazone HCl 15 MG 1 tablet Orally Once a day Active polyethylene glycol 3350 [id number] mg powder for oral solution (6 sources) Osmotic Laxative Start: 05-15-2024 End: 05-22-2024 polyethylene glycol (MIRALAX) packet Dissolve 1 Packet (17 g total) in 8 ounces of liquid and drink 2 times a day. 14 Packet 05/15/2024 05/22/2024 Active Start: 05-11-2024 End: 05-22-2024 Start: 04-30-2024 End: 05-08-2024 Precision Xtra Monitor (2 sources) Start: 06-12-2022 Precision Xtra Monitor Precision Xtra Monitor , 1 (one) each three times daily # 1, 06/12/2022, No Refill. Active miscellaneous three times daily for 0 May, Active 0.25 mg, 0.5 mg dose 1.5 ml semaglutide 1.34 mg/ml pen injector (5 sources) Start: 04-07-2024 semaglutide (O zempic, 0.25 or 0.5 MG/DOSE,) 2 MG/1.5ML solution pen-injector Indications: Type 2 diabetes mellitus with hyperglycemia, with long-term current use of insulin (CMS/HCC) 0.25 mg SC weekly x 4 weeks, then 0.5 mg weekly 1 each 3 04/07/2024 Active sennosides, residential 8.6 mg oral tablet (8 sources) Start: 05-15-2024 End: 05-22-2024 take 1 tablet by mouth at bedtime senna (SENOKOT) 8.6 MG tablet Take 1 Tablet by mouth at bedtime for 7 days. 7 Tablet 05/15/2024 Active Start: 05-11-2024 End: 05-22-2024 Start: 04-30-2024 End: 05-10-2024 sertraline 100 mg oral tablet (20 sources) Serotonin Reuptake Inhibitor Start: 01-05-2025 take 1 tablet by mouth once daily sertraline (Zoloft) 100 MG tablet Indications: Major depressive disorder, recurrent episode, moderate (HCC) Take 1 tablet by mouth once daily 30 tablet 01/05/2025 Active Start: 12-02-2024 take 1 tablet by sheryl th once daily sertraline (Zoloft) 100 MG tablet Indications: Major depressive disorder, recurrent episode, moderate (HCC) Take 1 tablet by mouth once daily 30 tablet 12/02/2024 Active Start: 05-25-2024 take 1 tablet by sheryl th once daily sertraline (Zoloft) 100 MG tablet Indications: Major depressive disorder, recurrent episode, moderate (CMS/HCC) Take 1 tablet by mouth once daily 30 tablet 05/25/2024 Active Start: 05-16-2024 take 5 tablets by mo uth once daily sertraline (ZOLOFT) 25 MG tablet Take 5 Tablets by mouth daily. 60 Tablet 05/16/2024 Active Start: 07-16-2022 End: 05-08-2024 Start: 08-31-2019 take 100 mg by mouth once jacy y Sertraline Active 100 MG PO Daily August 31, 2019 1:00am sevelamer carbonate 800 mg o ral tablet (20 sources) Phosphate Binder Start: 05-01-2024 Start: 12-31-2019 take 1600 mg by mout h three times daily at mealtime Sevelamer Hcl Active 1600 MG PO THREE TIMES DAILY WITH MEALS December 31, 2019 12:00am sevelamer (Renag el) 800 MG tablet Take 800 mg by mouth in the morning and 800 mg at noon and 800 mg in the evening. Take with meals. Swallow tablet whole; do not crush, break, or chew.. Active take 1 tablet by sheryl th three times daily at mealtime sevelamer carbonate (RENVELA) 800 MG TABS tablet Take 800 mg by mouth 3 times daily (with meals). Active sevelamer (RENVE LA) 800 mg tablet Take 2 tablets (1,600 mg total) by mouth in the morning and 2 tablets (1,600 mg total) at noon and 2 tablets (1,600 mg total) in the evening. Take with meals. Active Triamcinolone (2 sources) Corticosteroid Start: 06-19-2022 Triamcinolone Acetonide 0.5% triamcinolone acetonide 0.5%, 1 (one) application three times daily # 60, 06/19/2022, No Refill. Active topical three times daily for 0 *Pick strength-form from [employer] for eRX* Jun, Active 2 ml trimethobenzamide hydrochloride 100 mg/ml injection (3 sources) Antiemetic Start: 05-12-2024 Start: 05-05-2024 End: 05-10-2024 (3 sources) Start: 05-18-2024 Start: 05-15-2024 Start: 05-04-2024 End: 05-15-2024 (4 sources) Start: 05-15-2024 [Order 1 Start ] Name: oxyCODONE immediate release tablet Signed Summary: 5 mg, Oral, EVERY 4 HOURS PRN, Starting on Sat05/15/24 at 0956, Until Discontinued, Severe Pain (pain score 7,8,9,10) [Order 1 End] [Order 2 Start] Name: oxyCODONE immediate release tablet Signed Summary: 2.5 mg, Oral, EVERY 4 HOURS PRN, Starting on Sat05/15/24 at 0956, Until Discontinued, Moderate Pain (pain score 4,5,6) [Order 2 End] Start: 05-09-2024 Start: 05-07-2024 End: 05-08-2024 Start: 05-02-2024 End: 05-02-2024 (2 sources) Start: 05-06-2024 Start: 05-06-2024 Completed/Discontinued Medications Medication Drug Class(es) Dates Sig (Normalized) Sig (Original) amLODIPine 10 mg oral tablet (16 sources) Dihydropyridine Calcium Channel Mike Start: 10-27-2019 [...] mg / clavulanate 125 mg oral tablet (5 sources) Penicillin-class Antibacterial Start: 09-16-2019 End: 10-20-2019 take 1 tablet by mouth twice daily Amoxicillin-Pot Clavulanate (Augmentin) 875-125 mg tablet Discontinued 1 TAB PO Twice daily September 16, 2019 1:00am October 20, 2019 9:49am benzocaine 200 mg/ml topical spray (1 source) Standardized Chemical Allergen Start: 05-02-2024 End: 05-02-2024 calcium acetate 667 mg oral capsule (11 sources) Start: 10-27-2019 End: 06-04-2023 take 2 capsules by mouth once daily Calcium Acetate(Phosphat Bind) Discontinued 2 CAP PO Daily October 27, 2019 12:00am June 04, 2023 8:33am take 2 tablets by mouth every ei ght hours Calcium Acetate 667 MG 2 tablets with meals Orally Three times a day Active calcium chloride 0.0014 meq/ ml / potassium chloride 0.004 meq/ml / sodium chloride 0.103 meq/ml / sodium lactate 0.028 meq/ml injectable solution (4 sources) Start: 05-11-2024 End: 05-11-2024 Start: 04-30-2024 End: 05-01-2024 10 ml calcium gluconate 100 mg/ml injection (1 source) Start: 04-30-2024 End: 04-30-2024 Start: 04-30-2024 End: 04-30-2024 ceFAZolin 1000 mg injection (1 source) Cephalosporin Antibacterial Start: 05-03-2024 End: 05-03-2024 clindamycin 0.01 mg/mg topical gel (5 sources) Lincosamide Antibacterial Start: 12-31-2019 End: 09-21-2021 Clindamycin Phosphate Discontinued 1 APPLIC TOPICAL .w/each dressing 60 December 31, 2019 12:00am September 21, 2021 12:26pm to be used w/dressing changes, bring to next appt 2 ml fentaNYL 0.05 mg/ml injection (3 sources) Opioid Agonist Start: 05-14-2024 End: 05-14-2024 Intravenous Push, PRN, Starting on Ingris 05/14/24 at 1156, Until Ingris 05/14/24 at 1156, Intra Procedure Start: 04-30-2024 End: 04-30-2024 furosemide 40 mg oral tablet (20 sources) Loop Diuretic Start: 08-31-2019 End: 06-04-2023 take 40 mg by mouth twice daily Furosemide Discontinued 40 MG PO Twice daily August 31, 2019 1:00am June 04, 2023 8:33am furosemide (Lasi x) 20 MG tablet every 12 (twelve) hours. Active 1 ml heparin sodium, porcine 1000 unt/ml injection (2 sources) Unfractionated Heparin, Anti-coagulant Start: 05-14-2024 End: 05-14-2024 PRN, Starting on Ingris 05/14/24 at 1206, Until Ingris 05/14/24 at 1206, Intra Procedure Start: 05-03-2024 End: 05-05-2024 hydrocortisone 100 mg inject ion (1 source) Corticosteroid Start: 05-09-2024 End: 05-09-2024 Start: 05-09-2024 End: 05-09-2024 1 ml HYDROmorphone hydrochlo ride 1 mg/ml cartridge (7 sources) Opioid Agonist Start: 05-11-2024 End: 05-11-2024 Start: 05-08-2024 End: 05-10-2024 Start: 05-04-2024 End: 05-08-2024 Start: 04-30-2024 End: 04-30-2024 Start: 04-30-2024 End: 05-02-2024 iohexol (OMNIPAQUE) 350 MG/ML injection (1 source) Start: 05-14-2024 End: 05-14-2024 200 mL, Other, Once at Radiology exam, 1 dose, Starting on Ingris 05/14/24 at 1219, Until Ingris 05/14/24 at 1219, Imaging Protocol Orders 24 hr isosorbide mononitrate 60 mg extended release oral tablet (20 sources) Nitrate Vasodilator Start: 08-31-2019 End: 06-04-2023 take 60 mg by mouth once daily Isosorbide Mononitrate Discontinued 60 MG PO Daily August 31, 2019 1:00am June 04, 2023 8:33am isosorbide monon itrate 20 MG tablet every 12 (twelve) hours. Active lidocaine 0.04 mg/mg medicated patch (6 sources) Antiarrhythmic, Amide Local Anesthetic Start: 05-01-2024 End: 04-30-2024 Start: 04-30-2024 End: 06-14-2024 lidocaine (LIDODERM) 4 % PTC H patch Place 2 Patches on the skin every 24 hours. 60 Patch 05/15/2024 06/14/2024 lisinopril 40 mg oral tablet (5 sources) Angiotensin Converting Enzyme Inhibitor Start: 08-31-2019 End: 08-31-2019 Lisinopril Discontinued TABLET August 31, 2019 1:00am August 31, 2019 7:02pm 100 ml magnesium sulfate 10 mg/ml injection (2 sources) Start: 05-07-2024 End: 05-07-2024 Start: 04-30-2024 End: 05-01-2024 midodrine hydrochloride 5 mg oral tablet (20 sources) alpha-Adrenergic Agonist Start: 05-13-2024 End: 05-13-2024 Start: 05-11-2024 End: 05-11-2024 Start: 05-08-2024 End: 05-08-2024 Start: 04-08-2024 take 1 tablet by sheryl th three times daily midodrine 10 MG TABS tablet Take 10 mg by mouth. Three times daily pre-dialysis 04/08/2024 Active Start: 06-04-2023 End: 05-10-2024 Start: 11-18-2022 midodrine (Pro amatine) 5 MG tablet USE DIRECTED ON DIALYSIS DAYS NEEDED FOR 14 DAYS 11/18/2022 Active naloxone (NARCAN) 4 mg/actuation spray,non-aerosol nasal spray (1 source) Start: 08-02-2022 naloxone (NARC AN) 4 mg/actuation spray,non-aerosol nasal spray Administer 1 spray (4 mg total) into alternating nostrils as needed for opioid reversal. 1 each 08/02/2022 Suspended 2 ml ondansetron 2 mg/ml injection (7 sources) Serotonin-3 Receptor Antagonist Start: 05-11-2024 End: 05-12-2024 Start: 04-30-2024 End: 05-04-2024 Start: 06-04-2023 End: 06-04-2023 take 1 tablet by mouth every eight hours Ondansetron Hcl (Zofran) 4 mg Tablet Discontinued 4 MG PO Q8H June 04, 2023 1:00am June 04, 2023 12:40pm promethazine hydrochloride 25 mg oral tablet (5 sources) Phenothiazine Start: 09-27-2019 End: 11-19-2019 take 25 mg by mouth every eight hours Promethazine Discontinued 25 MG PO Q8H September 27, 2019 12:00am November 19, 2019 6:39am simvastatin 40 mg oral tablet (20 sources) HMG-CoA Reductase Inhibitor Start: 01-09-2018 End: 06-04-2023 take 40 mg by mouth once daily Simvastatin Discontinued 40 MG PO Daily August 31, 2019 1:00am June 04, 2023 8:28am 50 ml sodium chloride 9 mg/ml injection (1 source) Start: 04-30-2024 End: 04-30-2024 sodium zirconium cyclosilicate 5000 mg powder for oral suspension (1 source) Start: 05-03-2024 End: 05-03-2024 spironolactone 25 mg oral tablet (10 sources) Aldosterone Antagonist Start: 08-31-2019 End: 09-16-2019 Spironolactone Discontinued TABLET August 31, 2019 1:00am August 31, 2019 5:03pm sulfamethoxazole 800 mg / trimethoprim 160 mg oral tablet (5 sources) Dihydrofolate Reductase Inhibitor Antibacterial, Sulfonamide Antimicrobial Start: 12-08-2019 End: 12-31-2019 take 1 tablet by mouth every twelve hours Sulfamethoxazole-Tr imethoprim Discontinued 1 TAB PO Q12H 03 05December 08, 2019 12:00am December 31, 2019 8:16am (1 source) Start: 05-12-2024 End: 05-12-2024 (1 source) Start: 05-06-2024 End: 05-06-2024 (3 sources) Start: 05-04-2024 End: 05-05-2024 Start: 05-01-2024 End: 05-04-2024 Start: 04-30-2024 End: 04-30-2024 (2 sources) Start: 04-30-2024 End: 04-30-2024 Start: 04-30-2024 End: 04-30-2024 Problems Active Problems Problem Classification Problem Date Documented Date Episodic/Chronic Acquired foot deformities (20 sources) Hammer toe; Translations: [Other hammer toe(s) (acquired), unspecified foot] Onset: 3 12-20-2022 Chronic Acute and unspecified renal failure (10 sources) Injury of kidney; Translations: [Acute kidney failure, unspecified] 09-01-2019 Episodic Acute posthemorrhagic anemia (7 sources) Acute posthemorrhagic anemia; Translations: [Acute posthemorrhagic anemia] Onset: 4 05-15-2024 Episodic Cardiac dysrhythmias (20 sources) Paroxysmal atrial fibrillation; Translations: [Paroxysmal atrial fibrillation] Onset: 2 Chronic Chronic kidney disease (20 sources) Chronic kidney disease, unspecified; Translations: [Chronic kidney disease stage 4] Onset: 7 09-27-2019 Chronic Complication of device; implant or graft (7 sources) Mechanical complication of arteriovenous surgical fistula; Translations: [Other mechanical complication of surgically created arteriovenous fistula, initial encounter] 09-21-2021 Episodic Complications of surgical procedures or medical care (2 sources) Hemodialysis-associated hypotension; Translations: [Hypotension of hemodialysis] Onset: 3 12-19-2022 Chronic Conduction disorders (2 sources) Presence of cardiac pacemaker; Translations: [Right bundle branch block] Onset: 7 05-15-2024 Chronic Congestive heart failure; nonhypertensive (20 sources) Heart failure, unspecified; Translations: [Chronic systolic (congestive) heart failure] Onset: 7 Chronic Coronary atherosclerosis and other heart disease (4 sources) Atherosclerotic heart disease of [place] coronary artery without angina pectoris; Translations: [Atherosclerosis of coronary artery without angina pectoris] Onset: 7 Chronic Crushing injury or internal injury (7 sources) Laceration of spleen; Translations: [Unspecified laceration of spleen, initial encounter] Onset: 4 04-30-2024 Episodic Deficiency and other anemia (9 sources) Iron deficiency anemia; Translations: [Iron deficiency anemia, unspecified] 03-23-2024 Episodic Diabetes mellitus with complications (20 sources) Type 2 diabetes mellitus with diabetic chronic kidney disease; Translations: [Type 2 diabetes mellitus] Onset: 7 09-07-2019 Chronic Diabetes mellitus without complication (5 sources) Type 2 diabetes mellitus; Translations: [Type 2 diabetes mellitus without complications] 10-20-2019 Chronic Diseases of white blood cells (5 sources) Leukocytosis; Translations: [Elevated white blood cell count, unspecified] 09-06-2019 Chronic Disorders of lipid metabolism (20 sources) Hyperlipidemia, unspecified; Translations: [Hyperlipidemia] Onset: 7 03-23-2024 Chronic E Codes: Fall (7 sources) Fall; Translations: [Other fall from one level to another, initial encounter] Onset: 4 05-15-2024 Episodic E Codes: Fall (1 source) Fall Onset: 5 Esophageal disorders (20 sources) Gastroesophageal reflux disease without esophagitis; Translations: [Gastro-esophageal reflux disease without esophagitis] Onset: 3 03-23-2024 Chronic Essential hypertension (11 sources) Hypertensive disorder; Translations: [Essential (primary) hypertension] Onset: 3 09-07-2019 Chronic Fluid and electrolyte disorders (15 sources) Dialysis disequilibrium syndrome; Translations: [Other disorders of electrolyte and fluid balance, not elsewhere classified] 01-15-2020 Episodic Fracture of lower limb (20 sources) Closed fracture of femur, distal end; Translations: [Unspecified fracture of lower end of right femur, initial encounter for closed fracture] Onset: 4 04-30-2024 Episodic Fracture of upper limb (14 sources) Closed fracture of scapula; Translations: [Fracture of unspecified part of scapula, left shoulder, initial encounter for closed fracture] Onset: 4 04-30-2024 Episodic Gout and other crystal arthropathies (6 sources) 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; Translations: [Chronic gout due to renal impairment, unspecified site, without tophus (tophi)] Chronic Hypertension with complications and secondary hypertension (20 sources) Hypertensive heart and chronic kidney disease with heart failure and stage 1 through stage 4 chronic kidney disease, or unspecified chronic kidney disease; Translations: [Hypertensive renal disease] Onset: 7 09-07-2019 Chronic Immunity disorders (2 sources) Secondary immune deficiency disorder; Translations: [Immunodeficiency due to conditions classified elsewhere ([facility])] 04-07-2024 Chronic Inflammatory conditions of male genital organs (3 sources) Inflammation of scrotum; Translations: [Inflammatory disorders of scrotum] Episodic Inflammatory diseases of female pelvic organs (2 sources) Oophoritis; Translations: [Oophoritis, unspecified] 12-08-2024 Episodic Mood disorders (20 sources) Moderate recurrent major depression; Translations: [Major depressive disorder, recurrent, moderate] Onset: 3 03-23-2024 Chronic Nausea and vomiting (5 sources) Nausea and vomiting; Translations: [Nausea with vomiting, unspecified] 09-27-2019 Episodic Other aftercare (6 sources) Long-term current use of drug therapy; Translations: [Other senior living (current) drug therapy] 03-23-2024 Episodic Other aftercare (1 source) Encounter for surgical aftercare following surgery on the circulatory system Episodic Other aftercare (1 source) Surgical follow-up; Translations: [Encounter for other orthopedic aftercare] 06-22-2024 Episodic Other aftercare (1 source) Encounter for other orthopedic aftercare; Translations: [Encounter for other orthopedic aftercare] Onset: 4 Episodic Other circulatory disease (5 sources) History of hypotension; Translations: [Personal history of other diseases of the circulatory system] 01-15-2020 Episodic Other connective tissue disease (5 sources) Thigh pain; Translations: [Pain in left thigh] 09-05-2019 Episodic Other connective tissue disease (1 source) Pain in right lower limb; Translations: [Pain in right leg] 04-30-2024 Episodic Other connective tissue disease (1 source) Pain in right leg; Translations: [Pain in right leg] Onset: 4 Episodic Other diseases of kidney and ureters (9 sources) Secondary hyperparathyroidism; Translations: [Secondary hyperparathyroidism of renal origin] 03-23-2024 Chronic Other fractures (7 sources) Fracture of multiple ribs ; Translations: [Multiple fractures of ribs, left side, initial encounter for closed fracture] Onset: 4 04-30-2024 Episodic Other fractures (1 source) Fracture of superior pubic ramus; Translations: [Fracture of superior rim of right pubis, initial encounter for closed fracture] 04-30-2024 Episodic Other fractures (1 source) Fracture of transverse process of lumbar vertebra; Translations: [Unspecified fracture of unspecified lumbar vertebra, initial encounter for closed fracture] 04-30-2024 Episodic Other fractures (12 sources) Multiple closed fractures of pelvis with disruption of pelvic enterprise; Translations: [Multiple fractures of pelvis with unstable disruption of pelvic ring, initial encounter for closed fracture] Onset: 4 05-03-2024 Episodic Other fractures (1 source) Closed fracture of multiple left ribs; Translations: [Multiple fractures of ribs, left side, initial encounter for closed fracture] 04-30-2024 Episodic Other fractures (8 sources) Closed fracture lumbar vertebra, transverse process ; Translations: [Unspecified fracture of unspecified lumbar vertebra, initial encounter for closed fracture] Onset: 4 05-15-2024 Episodic Other fractures (1 source) Closed fracture of multiple ribs; Translations: [Multiple fractures of ribs, bilateral, subsequent encounter for fracture with routine healing] 06-21-2024 Episodic Other fractures (1 source) Unspecified fracture of unspecified lumbar vertebra, subsequent encounter for fracture with routine healing; Translations: [Unspecified fracture of unspecified lumbar vertebra, subsequent encounter for fracture with routine healing] Onset: 4 Episodic Other fractures (1 source) Multiple fractures of pelvis with unstable disruption of pelvic ring, initial encounter for closed fracture; Translations: [Multiple fractures of pelvis with unstable disruption of pelvic ring, initial encounter for closed fracture (HCC)] Onset: 4 Episodic Other gastrointestinal disorders (8 sources) Diarrhea; Translations: [Diarrhea, unspecified] 09-04-2019 Episodic Other injuries and conditions due to external causes (4 sources) History of fall; Translations: [History of falling] 04-30-2024 Episodic Other injuries and conditions due to external causes (1 source) History of falling; Translations: [History of falling] Onset: 4 Episodic Other nervous system disorders (2 sources) Disorder of the peripheral nervous system; Translations: [Hereditary and idiopathic neuropathy, unspecified] Onset: 3 12-19-2022 Chronic Other nervous system disorders (7 sources) Acute postoperative pain; Translations: [Other acute postprocedural pain] Onset: 4 05-15-2024 Episodic Other nervous system disorders (7 sources) Acute pain due to injury; Translations: [Acute pain due to trauma] Onset: 4 05-15-2024 Episodic Other non-traumatic joint disorders (3 sources) Joint pain; Translations: [Pain in unspecified joint] 03-23-2024 Episodic Other non-traumatic joint disorders (2 sources) Pain in left shoulder; Translations: [Left shoulder pain] Onset: 4 04-30-2024 Episodic Other nutritional; endocrine; and metabolic disorders (1 source) Obesity, unspecified; Translations: [OBESITY, UNSPECIFIED] Onset: 7 Chronic Other nutritional; endocrine; and metabolic disorders (5 sources) Obesity; Translations: [Obesity, unspecified] 12-23-2019 Chronic Other nutritional; endocrine; and metabolic disorders (14 sources) Morbid obesity; Translations: [Morbid (severe) obesity due to excess calories] Onset: 4 03-23-2024 Chronic Other nutritional; endocrine; and metabolic disorders (2 sources) Body mass index 40+ - severely obese; Translations: [Body mass index (BMI) 45.0-49.9, adult] 04-07-2024 Chronic Other nutritional; endocrine; and metabolic disorders (14 sources) Severe obesity; Translations: [Class 3 severe obesity due to excess calories with serious comorbidity and body mass index (BMI) of 40.0 to 44.9 in adult ([facility])] Onset: 4 09-08-2024 Chronic Pleurisy; pneumothorax; pulmonary collapse (6 sources) Pleural effusion; Translations: [Pleural effusion, not elsewhere classified] Onset: 4 05-15-2024 Episodic Residual codes; unclassified (6 sources) Obstructive sleep apnea syndrome; Translations: [Obstructive sleep apnea (adult) (pediatric)] 03-23-2024 Chronic Residual codes; unclassified (2 sources) Presence of functional implant, unspecified; Translations: [Presence of functional implant, unspecified] Onset: 5 Chronic Shock (12 sources) Hemorrhagic shock; Translations: [Other shock] Onset: 4 05-01-2024 Episodic Spondylosis; intervertebral disc disorders; other back problems (3 sources) Sciatica; Translations: [Lumbago with sciatica, left side] Episodic Thyroid disorders (9 sources) Hypothyroidism; Translations: [Hypothyroidism, unspecified] Onset: 5 12-08-2024 Chronic Unclassified (1 source) Obstructive sleep apnea (adult) (pediatric); Translations: [OBSTRUCTIVE SLEEP APNEA (ADULT) (PEDIATRIC)] Onset: 7 Chronic Unclassified (6 sources) Abnormal result of other cardiovascular function study; Translations: [Abnormal findings on diagnostic imaging of heart and coronary circulation] Onset: 7 05-15-2024 Episodic Unclassified (1 source) termite treater (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) use of oral hypoglycemic drugs; Translations: [CUSTODIAL (CURRENT) USE OF ORAL HYPOGLYCEMIC DRUGS] Onset: 7 Unclassified (2 sources) Unknown / UNK(Unknown) Onset: 7 Unclassified (1 source) Atrial fibrillation and flutter ; Translations: [Atrial fibrillation/flutter] 09-12-2019 Unclassified (20 sources) Patient on antidepressant monitoring plan Onset: 4 12-30-2023 Unclassified (20 sources) Baseline PHQ-9 Onset: 4 12-30-2023 Unclassified (1 source) Cellulitis of umbilicus; Translations: [Cellulitis of umbilicus] Onset: 4 Unclassified (1 source) Other mechanical complication of surgically created arteriovenous fistula, initial encounter; Translations: [Other mechanical complication of surgically created arteriovenous fistula, initial encounter] Onset: 3 Unclassified (1 source) Wound infection Onset: 4 Unclassified (1 source) Wound Check Onset: 4 Unclassified (1 source) Ill Onset: 4 Past or Other Problems Problem Classification Problem Date Documented Da te Episodic/Chronic Allergic reactions (8 sources) Inflammatory dermatosis; Translations: [Dermatitis, unspecified] Onset: 10-17-2022 03-23-2024 Episodic Bacterial infection; unspecified site (10 sources) Bacteremia; Translations: [Enterococcus as the cause of diseases classified elsewhere] Onset: 05-20-2024 Episodic Chronic ulcer of skin (20 sources) 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; Translations: [Non-pressure chronic ulcer of buttock limited to breakdown of skin] Onset: 05-21-2024 Resolved: 12-08-2024 05-21-2024 Chronic Complications of surgical procedures or medical care (7 sources) Non-healing surgical wound; Translations: [Other complications of procedures, not elsewhere classified, initial encounter] Onset: 08-22-2022 01-29-2020 Episodic Malaise and fatigue (2 sources) Other fatigue; Translations: [Weakness] Onset: 06-04-2017 Episodic Mycoses (20 sources) Onychomycosis; Translations: [Tinea unguium] Onset: 12-20-2022 Resolved: 04-07-2024 04-07-2024 Episodic Nonspecific chest pain (3 sources) Chest pain, unspecified; Translations: [Chest pain] Onset: 06-04-2017 Episodic Open wounds of extremities (2 sources) Unspecified open wound, right lower leg, sequela; Translations: [Unspecified open wound, right lower leg, sequela] Onset: 06-16-2024 Episodic Open wounds of head; neck; and trunk (3 sources) Laceration without foreign body of left ear, initial encounter; Translations: [Unspecified open wound of left buttock, sequela] Onset: 01-05-2022 Resolved: 01-05-2022 Episodic Other aftercare (2 sources) termite treater (current) use of aspirin; Translations: [group home (current) use of insulin] Onset: 06-04-2017 Episodic Other aftercare (2 sources) Long-term current use of oral hypoglycemic medication; Translations: [group home (current) use of oral hypoglycemic drugs] Onset: 08-03-2022 12-19-2022 Episodic Other connective tissue disease (2 sources) Necrotizing fasciitis; Translations: [Necrotizing fasciitis] Onset: 07-22-2022 07-22-2022 Episodic Other connective tissue disease (2 sources) Abnormal posture; Translations: [Abnormal posture] Onset: 08-03-2022 12-19-2022 Episodic Other connective tissue disease (2 sources) Muscle weakness; Translations: [Muscle weakness (generalized)] Onset: 08-03-2022 12-19-2022 Episodic Other gastrointestinal disorders (20 sources) Therapeutic opioid induced constipation; Translations: [Drug induced constipation] Onset: 07-02-2023 07-02-2023 Episodic Other injuries and conditions due to external causes (2 sources) Soft tissue injury; Translations: [Other injury of unspecified body region, initial encounter] Onset: 05-21-2024 05-21-2024 Episodic Other injuries and conditions due to external causes (1 source) Other injury of unspecified body region, initial encounter; Translations: [Other injury of unspecified body region, initial encounter] Onset: 05-20-2024 Episodic Other lower respiratory disease (1 source) Shortness of breath; Translations: [SHORTNESS OF BREATH] Onset: 06-04-2017 Episodic Other nervous system disorders (20 sources) Abnormal gait; Translations: [Unspecified abnormalities of gait and mobility] Onset: 12-20-2022 12-20-2022 Episodic Other nervous system disorders (2 sources) Finding related to ability to move; Translations: [Other abnormalities of gait and mobility] Onset: 08-03-2022 12-19-2022 Episodic Other skin disorders (20 sources) Dystrophia unguium; Translations: [Nail dystrophy] Onset: 12-20-2022 12-20-2022 Episodic Other skin disorders (20 sources) Foot callus; Translations: [Corns and callosities] Onset: 12-20-2022 12-20-2022 Episodic Residual codes; unclassified (2 sources) Pain; Translations: [Pain, unspecified] Onset: 08-03-2022 12-19-2022 Episodic Septicemia (except in labor) (1 source) Sepsis, unspecified organism; Translations: [Sepsis, unspecified organism] Onset: 05-20-2024 Episodic Skin and subcutaneous tissue infections (20 sources) Abscess of scalp; Translations: [Cutaneous abscess of head [any part, except face]] Onset: 03-23-2024 09-04-2019 Episodic Results Test Name Value Interpretation Reference Range Facility 36on 12-25-2024 36 KIRK Pichardo MA Please have him stop amio now. Thanks [facility] 12/25/2024 to advise patient to stop amio per Pratima Bob CNP Normal [facility] Orders Onlyon 12-16-2024 Orders Only [id number] Juanpablo Tran 1965 M Date Provider Department Center 12/16/2024 [id number], HISTORICAL [facility] Family History Problem Relation Age of Onset Breast cancer Mother Lung cancer Father Multiple sclerosis Sister Family Status - Relation Status Age at Mother Father Sister Alive Brother Alive [facility] 36on 12-10-2024 36 Regarding labs and C XR from 12/03/2024: Shiela Bob, ASSOCIATE STORE DIRECTOR Joy Griffin MA Thyroid function is abnormal, TSH is high. Please send to PCP and have him follow-up with his PCP for further management. CXR okay. Thanks! Patient informed. He saw PCP 2 days ago and was started on thyroid medication he says. [facility] RT PULMONARY FUNCTION TESTon 12-08-2024 [place] [address] Respiratory Report Signed Patient: AMADO TRAN MR#: [id number] : 1965 Acct:[id number] Age/Sex: 59 / M ADM Date: 12/03/24 Loc: LAB Attending Dr: SHIELA BOB APRN Ordering Physician: SHIELA BOB APRN Date of Service: 12/03/24 Procedure(s): RT pulmonary function test Accession Number(s): [id number] cc: [facility] Test Date: 2024-12-03 Pat Name: AMADO TRAN Department: Room: - Gender: Male Commercial Loan Assistant: Silvestre Kulkarni RRT : 1965 Requested By: Shiela Bob Order Number: [id number] Will MD: Quintin Maloney Interpretive Statements Pulmonary function [...] Maloney D.O. Signed By: 12/08/24 1639 DD/ 0926 TD/TT: Brick Burner: [facility] Radiology, Radiologi MD ger - 12/08/2024 [place] [address] Respiratory Report Signed Patient: AMADO TRAN MR#: [id number] : 1965 Acct:[id number] Age/Sex: 59 / M ADM Date: 12/03/24 Loc: LAB Attending Dr: SHIELA BOB APRN Ordering Physician: SHIELA BOB APRN Date of Service: 12/03/24 Procedure(s): RT pulmonary function test Accession Number(s): [id number] cc: [facility] Test Date: 2024-12-03 Pat Name: AMADO TRAN Department: Room: - Gender: Male Commercial Loan Assistant: Silvestre Kulkarni RRT : 1965 Requested By: Shiela Bob Order Number: [id number] Reading MD: Quintin Maloney Interpretive Statements Pulmonary [...] Maloney D.O. Signed By: 12/08/24 1639 DD/ 0926 TD/TT: Brick Burner: [employer] RT PULMONARY FUNCTION TESTOr dered By: Radiologist Radiology on 12-08-2024 [employer] Work Phone: 36on 12-04-2024 36 Software Quality Specialist called arnie fields and had to leave a message for the patient to let him know. Normal [facility] RT PULMONARY FUNCTION TESTon 12-03-2024 Radiology Study observation (narrative) [employer] 36on 12-02-2024 36 Please inform the pa lorne that his white blood cell count is now within normal at 6.8. Normal [facility] Telephoneon 12-02-2024 Telephone [id number] Juanpablo Tran 1965 M Date Provider Department Center 12/02/2024 CELESTINO GRANADOS [facility] Family History Problem Relation Age of Onset Breast cancer Mother Lung cancer Father Multiple sclerosis Sister Family Status - Relation Status Age at Mother Father Sister Alive Brother Alive Normal [facility] CBC WITH AUTO DIFFERENTIALon 12-01-2024 BASOPHILS ABSOLUTE COUNT (10*3/UL) BY AUTOMATED COUNT 0.1 10*3/uL Normal 0.0-0.2 [facility] Comment on above: Performed By: #### 2 157-6, CMP, CBCA, 56036-5 #### [facility] ([id number]) [address] [place] [address] 87668 BASOPHILS RELATIVE PERCENT BY AUTOMATED COUNT 0.9 % Normal [facility] Comment on above: Performed By: #### 2 157-6, CMP, CBCA, 36361-8 #### [facility] ([id number]) [address] [place] [address] 68313 CELLAVISION DIFFERENTIAL TYPE AUTOMATED DIFFERENTIAL Normal [facility] Comment on above: Performed By: #### 2 157-6, CMP, CBCA, 33209-8 #### [facility] ([id number]) [address] [place] [address] 58721 Eosinophils (Bld) [#/Vol] 0.6 10*3/uL High 0.0-0.4 [facility] Comment on above: Performed By: #### 2 157-6, CMP, CBCA, 64834-1 #### [facility] ([id number]) [address] [place] [address] 98087 EOSINOPHILS RELATIVE PERCENT BY AUTOMATED COUNT 9.1 % Normal [facility] Comment on above: Performed By: #### 2 157-6, CMP, CBCA, 99389-6 #### [facility] ([id number]) [address] [place] [address] 26285 Erythrocyte distribution width (RBC) [Ratio] 16.3 % High 11.5-15 [facility] Comment on above: Performed By: #### 2 157-6, CMP, CBCA, 27544-6 #### [facility] ([id number]) [address] [place] [address] 59772 Hematocrit (Bld) [Volume fraction] 36.9 % Low 39-50 [facility] Comment on above: Performed By: #### 2 157-6, CMP, CBCA, 31653-5 #### [facility] ([id number]) [address] [place] [address] 76789 Hemoglobin (Bld) [Mass/Vol] 12.1 g/dL Low 13-17 [facility] Comment on above: Performed By: #### 2 157-6, CMP, CBCA, 65739-9 #### [facility] ([id number]) [address] [place] [address] 36928 LYMPHOCYTES ABSOLUTE COUNT (10*3/UL) BY AUTOMATED COUNT 1.6 10*3/uL Normal 1.0-3.5 [facility] Comment on above: Performed By: #### 2 157-6, CMP, CBCA, 66984-9 #### [facility] ([id number]) [address] [place] [address] 66182 LYMPHOCYTES RELATIVE PERCENT BY AUTOMATED COUNT 23.0 % Normal [facility] Comment on above: Performed By: #### 2 157-6, CMP, CBCA, 25450-6 #### [facility] ([id number]) [address] [place] [address] 59280 MCH (RBC) [Entitic mass] 32.6 pg Normal 27-34 [facility] Comment on above: Performed By: #### 2 157-6, CMP, CBCA, 21581-0 #### [facility] ([id number]) [address] [place] [address] 37811 MCHC (RBC) [Mass/Vol] 32.9 g/dL Normal 32-36 [facility] Comment on above: Performed By: #### 2 157-6, CMP, CBCA, 81482-5 #### [facility] ([id number]) [address] [place] [address] 44216 MCV (RBC) [Entitic vol] 99 fL Normal 80-100 [facility] Comment on above: Performed By: #### 2 157-6, CMP, CBCA, 61890-7 #### [facility] ([id number]) [address] [place] [address] 98752 MONOCYTES ABSOLUTE COUNT (10*3/UL) BY AUTOMATED COUNT 0.4 10*3/uL Normal 0.0-0.9 [facility] Comment on above: Performed By: #### 2 157-6, CMP, CBCA, 57596-1 #### [facility] ([id number]) [address] [place] [address] 31220 MONOCYTES RELATIVE PERCENT BY AUTOMATED COUNT 5.3 % Normal [facility] Comment on above: Performed By: #### 2 157-6, CMP, CBCA, 68936-6 #### [facility] ([id number]) [address] [place] [address] 90229 NEUTROPHILS ABSOLUTE COUNT BY AUTOMATED COUNT 4.2 10*3/uL Normal 1.5-6.6 [facility] Comment on above: Performed By: #### 2 157-6, CMP, CBCA, 70833-5 #### [facility] ([id number]) [address] [place] [address] 82074 NEUTROPHILS RELATIVE PERCENT BY AUTOMATED COUNT 61.7 % Normal [facility] Comment on above: Performed By: #### 2 157-6, CMP, CBCA, 09894-1 #### [facility] ([id number]) [address] [place] [address] 57190 Platelet mean volume (Bld) [Entitic vol] 9.8 fL Normal 7-12 [facility] Comment on above: Performed By: #### 2 157-6, CMP, CBCA, 52959-7 #### [facility] ([id number]) [address] [place] [address] 93450 Platelets (Bld) [#/Vol] 178 10*3/uL Normal 150-450 [facility] Comment on above: Performed By: #### 2 157-6, CMP, CBCA, 60605-5 #### [facility] ([id number]) [address] [place] [address] 67669 RBC COUNT 3.73 X10E12/L Low 4.1-5.7 [facility] Comment on above: Performed By: #### 2 157-6, CMP, CBCA, 26076-8 #### [facility] ([id number]) [address] [place] [address] 18131 WBC (Bld) [#/Vol] 6.8 10*3/uL Normal 4-11 [facility] Comment on above: Performed By: #### 2 157-6, CMP, CBCA, 82745-1 #### [facility] ([id number]) [address] [place] [address] 20168 Orders Onlyon 11-27-2024 Orders Only [id number] Juanpablo Tran Deejay 1965 M Date Provider Department Center 11/27/2024 ROSMERY DAVIS LIZZETTE Smith Family History Problem Relation Age of Onset Breast cancer Mother Lung cancer Father Multiple sclerosis Sister Family Status - Relation Status Age at Mother Father Sister Alive Brother Alive Normal [facility] Office Visiton 11-26-2024 Follow-up visit [id number] GladysJuanpablo tapia Deejay 1965 M Date Provider Department Center 11/26/2024 SHIELA CASTANEDA CARD [facility] Family History Problem Relation Age of Onset Breast cancer Mother Lung cancer Father Multiple sclerosis Sister Family Status - Relation Status Age at Mother Father Sister Alive Brother Alive Level of Service:03346 AL OFFICE/OUTPATIENT ESTABLISHED MOD MDM 30 MIN Reason for Visit and Comments: Atrial Fibrillation [80] Normal [facility] 36on 11-19-2024 36 Please fax the CBC ordered to [facility]. Normal [facility] Follow-Upon 11-19-2024 Follow-Up [id number] Juanpablo Tran 1965 M Date Provider Department Center 11/19/2024 [facility] Family History Problem Relation Age of Onset Breast cancer Mother Lung cancer Father Family Status - Relation Status Age at Mother Father Level of Service:88825 AL OFFICE/OUTPATIENT ESTABLISHED MOD MDM 30 MIN Reason for Visit and Comments: Follow-up [876799] Normal [facility] Telephoneon 11-19-2024 Telephone [id number] Juanpablo Tran 1965 M Date Provider Department Center 11/19/2024 129-CELESTINO PAK [facility] Family History Problem Relation Age of Onset Breast cancer Mother Lung cancer Father Family Status - Relation Status Age at Mother Father [facility] CBC AND AUTO DIFFon 09-01-19 25 ABSOLUTE BASOPHIL 0.1 X10E9/L Normal 0.0-0.2 [facility] Comment on above: Performed By: #### 2 157-6, CMP, CBCA, 10799-9 #### [facility] ([id number]) [address] [place] [address] 88510 ABSOLUTE NEUTROPHIL 8.5 X10E9/L High 1.5-6.6 [facility] Comment on above: Performed By: #### 2 157-6, CMP, CBCA, 88559-9 #### [facility] ([id number]) [address] [place] [address] 72959 Basophils/100 WBC (Bld) 0.8 % Normal [facility] Comment on above: Performed By: #### 2 157-6, CMP, CBCA, 12418-4 #### [facility] ([id number]) [address] [place] [address] 20383 Eosinophils (Bld) [#/Vol] 0.5 10*3/uL High 0.0-0.4 [facility] Comment on above: Performed By: #### 2 157-6, CMP, CBCA, 65124-0 #### [facility] ([id number]) [address] [place] [address] 36252 Eosinophils/100 WBC (Bld) 4.8 % Normal [facility] Comment on above: Performed By: #### 2 157-6, CMP, CBCA, 66935-4 #### [facility] ([id number]) [address] [place] [address] 78417 Erythrocyte distribution width (RBC) [Ratio] 16.8 % High 11.5-15.0 [facility] Comment on above: Performed By: #### 2 157-6, CMP, CBCA, 82933-4 #### [facility] ([id number]) [address] [place] [address] 00714 Hematocrit (Bld) [Volume fraction] 36.2 % Low 39-49 [facility] Comment on above: Performed By: #### 2 157-6, CMP, CBCA, 37148-2 #### [facility] ([id number]) [address] [place] [address] 99238 Hemoglobin (Bld) [Mass/Vol] 11.9 g/dL Low 13.0-17.0 [facility] Comment on above: Performed By: #### 2 157-6, CMP, CBCA, 62512-5 #### [facility] ([id number]) [address] [place] [address] 95586 Lymphocytes (Bld) [#/Vol] 1.7 10*3/uL Normal 1.0-3.5 [facility] Comment on above: Performed By: #### 2 157-6, CMP, CBCA, 74491-2 #### [facility] ([id number]) [address] [place] [address] 34961 Lymphocytes/100 WBC (Bld) 14.6 % Normal [facility] Comment on above: Performed By: #### 2 157-6, CMP, CBCA, 54139-9 #### [facility] ([id number]) [address] [place] [address] 46281 MCH (RBC) [Entitic mass] 32.2 pg Normal 27-34 [facility] Comment on above: Performed By: #### 2 157-6, CMP, CBCA, 92671-0 #### [facility] ([id number]) [address] [place] [address] 39652 MCHC (RBC) [Mass/Vol] 32.7 g/dL Normal 32-36 [facility] Comment on above: Performed By: #### 2 157-6, CMP, CBCA, 42768-1 #### [facility] ([id number]) [address] [place] [address] 83573 MCV (RBC) [Entitic vol] 98 fL Normal 80-100 [facility] Comment on above: Performed By: #### 2 157-6, CMP, CBCA, 41977-3 #### [facility] ([id number]) [address] [place] [address] 89444 Monocytes (Bld) [#/Vol] 0.6 10*3/uL Normal 0-0.9 [facility] Comment on above: Performed By: #### 2 157-6, CMP, CBCA, 30111-5 #### [facility] ([id number]) [address] [place] [address] 62788 Monocytes/100 WBC (Bld) 5.2 % Normal [facility] Comment on above: Performed By: #### 2 157-6, CMP, CBCA, 12629-8 #### [facility] ([id number]) [address] [place] [address] 52200 Neutrophils/100 WBC (Bld) 74.6 % Normal [facility] Comment on above: Performed By: #### 2 157-6, CMP, CBCA, 21799-7 #### [facility] ([id number]) [address] [place] [address] 97352 Platelet mean volume (Bld) [Entitic vol] 9.1 fL Normal 7-12 [facility] Comment on above: Performed By: #### 2 157-6, CMP, CBCA, 25158-8 #### [facility] ([id number]) [address] [place] [address] 44815 Platelets (Bld) [#/Vol] 217 10*3/uL Normal 150-450 [facility] Comment on above: Performed By: #### 2 157-6, CMP, CBCA, 73885-9 #### [facility] ([id number]) [address] [place] [address] 40149 RBC COUNT 3.69 X10E12/L Low 4.10-5.70 [facility] Comment on above: Performed By: #### 2 157-6, CMP, CBCA, 92875-3 #### [facility] ([id number]) [address] [place] [address] 66493 WBC (Bld) [#/Vol] 11.4 10*3/uL High 4.0-11.0 [facility] Comment on above: Performed By: #### 2 157-6, CMP, CBCA, 50200-3 #### [facility] ([id number]) [address] [place] [address] 97223 COMPREHENSIVE METABOLIC PANE Nick 09-01-2024 Albumin [Mass/Vol] 3.2 g/dL Normal 3.2-5.3 [facility] Comment on above: Performed By: #### 2 157-6, CMP, CBCA, 63941-1 #### [facility] ([id number]) [address] [place] [address] 95018 ALP [Catalytic activity/Vol] 94 U/L Normal 39-130 [facility] Comment on above: Performed By: #### 2 157-6, CMP, CBCA, 45669-2 #### [facility] ([id number]) [address] [place] [address] 26671 ALT [Catalytic activity/Vol] 13 U/L Normal 0-40 [facility] Comment on above: Performed By: #### 2 157-6, CMP, CBCA, 92419-8 #### [facility] ([id number]) [address] [place] [address] 94204 Anion gap [Moles/Vol] 9 mmol/L Normal 5-15 [facility] Comment on above: Performed By: #### 2 157-6, CMP, CBCA, 38225-2 #### [facility] ([id number]) [address] [place] [address] 45598 AST [Catalytic activity/Vol] 16 U/L Normal 0-41 [facility] Comment on above: Performed By: #### 2 157-6, CMP, CBCA, 43398-8 #### [facility] ([id number]) [address] [place] [address] 36684 Bilirubin [Mass/Vol] 1.3 mg/dL High 0.3-1.2 [facility] Comment on above: Performed By: #### 2 157-6, CMP, CBCA, 14956-2 #### [facility] ([id number]) [address] [place] [address] 77757 Calcium [Mass/Vol] 8.6 mg/dL Normal 8.5-10.5 [facility] Comment on above: Performed By: #### 2 157-6, CMP, CBCA, 28969-6 #### [facility] ([id number]) [address] [place] [address] 66836 Chloride [Moles/Vol] 96 mmol/L Low 98-109 [facility] Comment on above: Performed By: #### 2 157-6, CMP, CBCA, 21212-3 #### [facility] ([id number]) [address] [place] [address] 46572 CO2 [Moles/Vol] 27 mmol/L Normal 22-32 [facility] Comment on above: Performed By: #### 2 157-6, CMP, CBCA, 02049-0 #### [facility] ([id number]) [address] [place] [address] 34781 Creatinine [Mass/Vol] 4.89 mg/dL High 0.70-1.20 [facility] Comment on above: Result Comment: METH OD TRACEABLE TO IDMS STANDARD Performed By: #### 2 157-6, CMP, CBCA, 52658-2 #### [facility] [facility] ([id number]) [address] [place] [address] 21532 GFR/1.73 sq M.predicted among non-blacks MDRD (S/P/Bld) [Vol rate/Area] 13 mL/min/{1.73_m2} Low >59 [facility] Comment on above: Result Comment: Reported eGFR is based on the CKD-EPI 2020 equation that does not use a race coefficient. Performed By: #### 2 157-6, CMP, CBCA, 20054-1 #### [facility] ([id number]) [address] [place] [address] 05467 Glucose [Mass/Vol] 160 mg/dL High 65-99 [facility] Comment on above: Performed By: #### 2 157-6, CMP, CBCA, 22491-7 #### [facility] ([id number]) [address] [place] [address] 27326 Potassium [Moles/Vol] 3.7 mmol/L Normal 3.5-5.0 [facility] Comment on above: Performed By: #### 2 157-6, CMP, CBCA, 06122-3 #### [facility] ([id number]) [address] [place] [address] 83642 Protein [Mass/Vol] 7.6 g/dL Normal 6.0-8.0 [facility] Comment on above: Performed By: #### 2 157-6, CMP, CBCA, 90546-5 #### [facility] ([id number]) [address] [place] [address] 25979 Sodium [Moles/Vol] 132 mmol/L Low 134-146 [facility] Comment on above: Performed By: #### 2 157-6, CMP, CBCA, 39350-5 #### [facility] ([id number]) [address] [place] [address] 77205 Urea nitrogen [Mass/Vol] 35 mg/dL High 5-23 [facility] Comment on above: Performed By: #### 2 157-6, CMP, CBCA, 78668-8 #### [facility] ([id number]) [address] [place] [address] 77498 MAGNESIUMon 09-01-2024 Magnesium [Mass/Vol] 1.9 mg/dL Normal 1.8-2.6 [facility] Comment on above: Performed By: #### 2 157-6, CMP, CBCA, 58876-1 #### [facility] ([id number]) [address] [place] [address], [place] [address] 36on 08-18-2024 36 Visit notes faxed to [facility] and scanned into chart. Normal [facility] 36 Please fax my note t o the patient's long-term facility. [facility] Follow-Upon 08-18-2024 Follow-Up [id number] Juanpablo Tran 1965 M Date Provider Department Center 08/18/2024 CELESTINO GRANADOS [facility] Family History Problem Relation Age of Onset Breast cancer Mother Lung cancer Father Family Status - Relation Status Age at Mother Father Level of Service:50522 AL OFFICE/OUTPATIENT ESTABLISHED MOD MDM 30 MIN Normal [facility] Telephoneon 08-18-2024 Telephone [id number] Juanpablo Tran 1965 M Date Provider Department Center 08/18/2024 CELESTINO GRANADOS [facility] Family History Problem Relation Age of Onset Breast cancer Mother Lung cancer Father Family Status - Relation Status Age at Mother Father Normal [facility] 36on 08-11-2024 36 Second attempt. Deta iled message left again. Normal [facility] 36 Left detailed callba ck message. Offered to reschedule on [facility] Telephoneon 08-11-2024 Telephone [id number] Juanpablo Tran 1965 M Date Provider Department Center 08/11/2024 CELESTINO GRANADOS [facility] Family History Problem Relation Age of Onset Breast cancer Mother Lung cancer Father Family Status - Relation Status Age at Mother Father Reason for Visit and Comments: Need to reschedule [Other] [facility] 36on 07-28-2024 36 Left callback message [facility] AND AUTO DIFFon 06-23-20 24 ABSOLUTE BASOPHIL 0.1 X10E9/L Normal 0.0-0.2 [facility] Comment on above: Performed By: #### 2 157-6, CMP, CBCA, 11831-1 #### [facility] ([id number]) [address] [place] [address] ABSOLUTE NEUTROPHIL 5.7 X10E9/L Normal 1.5-6.6 [facility] Comment on above: Performed By: #### 2 157-6, CMP, CBCA, 66263-2 #### [facility] ([id number]) [address] [place] [address] 62744 Basophils/100 WBC (Bld) 1.0 % Normal [facility] Comment on above: Performed By: #### 2 157-6, CMP, CBCA, 25277-3 #### [facility] ([id number]) [address] [place] [address] 74032 Eosinophils (Bld) [#/Vol] 1.0 10*3/uL High 0.0-0.4 [facility] Comment on above: Performed By: #### 2 157-6, CMP, CBCA, 16517-4 #### [facility] ([id number]) [address] [place] [address] 41658 Eosinophils/100 WBC (Bld) 10.9 % Normal [facility] Comment on above: Performed By: #### 2 157-6, CMP, CBCA, 44903-2 #### [facility] ([id number]) [address] [place] [address] 33033 Erythrocyte distribution width (RBC) [Ratio] 19.5 % High 11.5-15.0 [facility] Comment on above: Performed By: #### 2 157-6, CMP, CBCA, 76085-3 #### [facility] ([id number]) [address] [place] [address] 76317 Hematocrit (Bld) [Volume fraction] 27.0 % Low 39-49 [facility] Comment on above: Performed By: #### 2 157-6, CMP, CBCA, 49398-6 #### [facility] ([id number]) [address] [place] [address] 09831 Hemoglobin (Bld) [Mass/Vol] 9.2 g/dL Low 13.0-17.0 [facility] Comment on above: Performed By: #### 2 157-6, CMP, CBCA, 60421-2 #### [facility] ([id number]) [address] [place] [address] 08397 Lymphocytes (Bld) [#/Vol] 1.4 10*3/uL Normal 1.0-3.5 [facility] Comment on above: Performed By: #### 2 157-6, CMP, CBCA, 53818-6 #### [facility] ([id number]) [address] [place] [address] 44807 Lymphocytes/100 WBC (Bld) 16.2 % Normal [facility] Comment on above: Performed By: #### 2 157-6, CMP, CBCA, 83821-5 #### [facility] ([id number]) [address] [place] [address] 10482 MCH (RBC) [Entitic mass] 32.7 pg Normal 27-34 [facility] Comment on above: Performed By: #### 2 157-6, CMP, CBCA, 91860-3 #### [facility] ([id number]) [address] [place] [address] 86837 MCHC (RBC) [Mass/Vol] 34.0 g/dL Normal 32-36 [facility] Comment on above: Performed By: #### 2 157-6, CMP, CBCA, 91734-0 #### [facility] ([id number]) [address] [place] [address] 89592 MCV (RBC) [Entitic vol] 96 fL Normal 80-100 [facility] Comment on above: Performed By: #### 2 157-6, CMP, CBCA, 81160-1 #### [facility] ([id number]) [address] [place] [address] 47793 Monocytes (Bld) [#/Vol] 0.5 10*3/uL Normal 0-0.9 [facility] Comment on above: Performed By: #### 2 157-6, CMP, CBCA, 79671-6 #### [facility] ([id number]) [address] [place] [address] 92989 Monocytes/100 WBC (Bld) 5.9 % Normal [facility] Comment on above: Performed By: #### 2 157-6, CMP, CBCA, 53495-5 #### [facility] ([id number]) [address] [place] [address] 04899 Neutrophils/100 WBC (Bld) 66.0 % Normal [facility] Comment on above: Performed By: #### 2 157-6, CMP, CBCA, 65795-2 #### [facility] ([id number]) [address] [place] [address] 07955 Platelet mean volume (Bld) [Entitic vol] 9.2 fL Normal 7-12 [facility] Comment on above: Performed By: #### 2 157-6, CMP, CBCA, 28971-1 #### [facility] ([id number]) [address] [place] [address] 50762 Platelets (Bld) [#/Vol] 179 10*3/uL Normal 150-450 [facility] Comment on above: Performed By: #### 2 157-6, CMP, CBCA, 19538-7 #### [facility] ([id number]) [address] [place] [address] 53447 RBC COUNT 2.80 X10E12/L Low 4.10-5.70 [facility] Comment on above: Performed By: #### 2 157-6, CMP, CBCA, 96283-2 #### [facility] ([id number]) [address] [place] [address] 04747 WBC (Bld) [#/Vol] 8.7 10*3/uL Normal 4.0-11.0 [facility] Comment on above: Performed By: #### 2 157-6, CMP, CBCA, 05072-3 #### [facility] ([id number]) [address] [place] [address] 29262 COMPREHENSIVE METABOLIC PANE [facility] 06-23-2024 Albumin [Mass/Vol] 2.8 g/dL Low 3.2-5.3 [facility] Comment on above: Performed By: #### 2 157-6, CMP, CBCA, 72580-6 #### [facility] ([id number]) [address] [place] [address] 18751 ALP [Catalytic activity/Vol] 127 U/L Normal 39-130 [facility] Comment on above: Performed By: #### 2 157-6, CMP, CBCA, 05605-9 #### [facility] ([id number]) [address] [place] [address] 27035 ALT [Catalytic activity/Vol] 11 U/L Normal 0-40 [facility] Comment on above: Performed By: #### 2 157-6, CMP, CBCA, 56180-8 #### [facility] ([id number]) [address] [place] [address] 37574 Anion gap [Moles/Vol] 10 mmol/L Normal 5-15 [facility] Comment on above: Performed By: #### 2 157-6, CMP, CBCA, 86524-5 #### [facility] ([id number]) [address] [place] [address] 65114 AST [Catalytic activity/Vol] 12 U/L Normal 0-41 [facility] Comment on above: Performed By: #### 2 157-6, CMP, CBCA, 06071-1 #### [facility] ([id number]) [address] [place] [address] 46914 Bilirubin [Mass/Vol] 1.1 mg/dL Normal 0.3-1.2 [facility] Comment on above: Performed By: #### 2 157-6, CMP, CBCA, 03855-7 #### [facility] ([id number]) [address] [place] [address] 29403 Calcium [Mass/Vol] 8.7 mg/dL Normal 8.5-10.5 [facility] Comment on above: Performed By: #### 2 157-6, CMP, CBCA, 20822-0 #### [facility] ([id number]) [address] [place] [address] 50408 Chloride [Moles/Vol] 93 mmol/L Low 98-109 [facility] Comment on above: Performed By: #### 2 157-6, CMP, CBCA, 53932-0 #### [facility] ([id number]) [address] [place] [address] 18563 CO2 [Moles/Vol] 29 mmol/L Normal 22-32 [facility] Comment on above: Performed By: #### 2 157-6, CMP, CBCA, 12113-8 #### [facility] ([id number]) [address] [place] [address] 33879 Creatinine [Mass/Vol] 4.73 mg/dL High 0.70-1.20 [facility] Comment on above: Result Comment: METH OD TRACEABLE TO IDMS STANDARD Performed By: #### 2 157-6, CMP, CBCA, 33854-1 #### [facility] ([id number]) [address] [place] [address] 04449 GFR/1.73 sq M.predicted among non-blacks MDRD (S/P/Bld) [Vol rate/Area] 13 mL/min/{1.73_m2} Low >59 [facility] Comment on above: Result Comment: Reported eGFR is based on the CKD-EPI 2020 equation that does not use a race coefficient. Performed By: #### 2 157-6, CMP, CBCA, 27940-5 #### [facility] ([id number]) [address] [place] [address] 55046 Glucose [Mass/Vol] 131 mg/dL High 65-99 [facility] Comment on above: Performed By: #### 2 157-6, CMP, CBCA, 10694-2 #### [facility] ([id number]) [address] [place] [address] 25292 Potassium [Moles/Vol] 4.0 mmol/L Normal 3.5-5.0 [facility] Comment on above: Performed By: #### 2 157-6, CMP, CBCA, 43917-0 #### [facility] ([id number]) [address] [place] [address] 97461 Protein [Mass/Vol] 7.1 g/dL Normal 6.0-8.0 [facility] Comment on above: Performed By: #### 2 157-6, CMP, CBCA, 08475-5 #### [facility] ([id number]) [address] [place] [address] 33949 Sodium [Moles/Vol] 132 mmol/L Low 134-146 [facility] Comment on above: Performed By: #### 2 157-6, CMP, CBCA, 76658-4 #### [facility] ([id number]) [address] [place] [address] 30730 Urea nitrogen [Mass/Vol] 27 mg/dL High 5-23 [facility] Comment on above: Performed By: #### 2 157-6, CMP, CBCA, 75055-0 #### [facility] ([id number]) [address] [facility] [place] [address] Troponin I.cardiac High sens itivity method [Mass/Vol]on 06-23-2024 TROPONIN I, HIGH SENSITIVITY 6 ng/L Normal <21 [facility] Comment on above: Performed By: #### 2 157-6, CMP, CBCA, 70977-6 #### [facility] ([id number]) [address] [facility] [place] [address] XR CHEST 1 VWon 06-23-2024 XR CHEST 1 VW XR CHEST 1 VW Indication: Chest pain. [...] Jeannie Ryan MD on 06/23/2024 9:31 PM Normal [facility] XR FEMUR RIGHT MINIMUM 2 VIE WSon 06-23-2024 XR FEMUR RIGHT MINIMUM 2 VIEWS Normal [facility] XR PELVIS INLET OUTLET 2 VIE WSon 06-23-2024 XR PELVIS INLET OUTLET 2 VIEWS Normal [facility] XR SCAPULA LEFT 2 VIEWSon XR SCAPULA LEFT 2 VIEWS Normal [facility] Patient Instructionson 06-22 Securities Adviser Authentication Interface Message Text 1. Weightbearing as tolerated left upper extremity and bilateral lower extremities 2. Work with physical therapy daily 3. Return to clinic in 6 weeks Normal [facility] Progress Noteson 06-22-2024 Securities Adviser Authentication Interface Message Text Normal [facility] Progress Noteson 06-21-2024 Securities Adviser Authentication Interface Message Text Normal [facility] Telephone Encounteron 2023 Securities Adviser Authentication Interface Message Text Pt is @ a SNF in [facility], has a f/u w/ Dr Biggs next week, Saturday06/22/24 but also needs f/u for spine fx. Can you put xray orders in for what you need to check on fx for him to get when he is here, then possibly schedule f/u w/you at a later date? Normal [email or web address] Follow-Upon 06-16-2024 Follow-Up [id number] Juanpablo Tran 1965 M Date Provider Department Center 06/16/2024 Amanda-CELESTINO PAK [facility] Family History Problem Relation Age of Onset Breast cancer Mother Lung cancer Father Family Status - Relation Status Age at Mother Father Level of Service:47555 AL OFFICE/OUTPATIENT ESTABLISHED MOD MDM 30 MIN Normal [facility] BLOOD CULTUREon 06-13-2024 Bacteria identified Aer cx Nom (Bld) SPECIMEN NOTES [facility], [facility] NURSE DRAW CULTURE RESULTS NO GROWTH 5 DAYS Normal [facility] Comment on above: Performed By: #### 2 157-6, CMP, CBCA, 04296-9 #### [facility] ([id number]) [address] [place] [address] 36791 Bacteria identified Aer cx Nom (Bld) SPECIMEN NOTES [facility]. [facility] NURSE DRAW CULTURE RESULTS NO GROWTH 5 DAYS Normal [facility] Comment on above: Performed By: #### 2 157-6, CMP, CBCA, 89258-9 #### [facility] ([id number]) [address] [place] [address] 96173 CBC AND AUTO DIFFon 06-13-20 ABSOLUTE BASOPHIL 0.1 X10E9/L Normal 0.0-0.2 [facility] Comment on above: Performed By: #### 2 157-6, CMP, CBCA, 03854-3 #### [facility] ([id number]) [address] [place] [address] 15706 ABSOLUTE NEUTROPHIL 4.2 X10E9/L Normal 1.5-6.6 [facility] Comment on above: Performed By: #### 2 157-6, CMP, CBCA, 00932-3 #### [facility] ([id number]) [address] [place] [address] 04455 Basophils/100 WBC (Bld) 0.9 % Normal [facility] Comment on above: Performed By: #### 2 157-6, CMP, CBCA, 17595-9 #### [facility] ([id number]) [address] [place] [address] 53713 Eosinophils (Bld) [#/Vol] 1.3 10*3/uL High 0.0-0.4 [facility] Comment on above: Performed By: #### 2 157-6, CMP, CBCA, 15046-9 #### [facility] ([id number]) [address] [place] [address] 19539 Eosinophils/100 WBC (Bld) 16.4 % Normal [facility] Comment on above: Performed By: #### 2 157-6, CMP, CBCA, 77430-4 #### [facility] ([id number]) [address] [place] [address] 10175 Erythrocyte distribution width (RBC) [Ratio] 20.9 % High 11.5-15.0 [facility] Comment on above: Performed By: #### 2 157-6, CMP, CBCA, 11282-4 #### [facility] ([id number]) [address] [place] [address] 57558 Hematocrit (Bld) [Volume fraction] 27.5 % Low 39-49 [facility] Comment on above: Performed By: #### 2 157-6, CMP, CBCA, 32727-6 #### [facility] ([id number]) [address] [place] [address] 88480 Hemoglobin (Bld) [Mass/Vol] 9.2 g/dL Low 13.0-17.0 [facility] Comment on above: Performed By: #### 2 157-6, CMP, CBCA, 33081-0 #### [facility] ([id number]) [address] [place] [address] 51356 Lymphocytes (Bld) [#/Vol] 1.6 10*3/uL Normal 1.0-3.5 [facility] Comment on above: Performed By: #### 2 157-6, CMP, CBCA, 47685-9 #### [facility] ([id number]) [address] [place] [address] 08797 Lymphocytes/100 WBC (Bld) 20.7 % Normal [facility] Comment on above: Performed By: #### 2 157-6, CMP, CBCA, 00460-4 #### [facility] ([id number]) [address] [place] [address] 11527 MCH (RBC) [Entitic mass] 32.2 pg Normal 27-34 [facility] Comment on above: Performed By: #### 2 157-6, CMP, CBCA, 79211-3 #### [facility] ([id number]) [address] [place] [address] 81781 MCHC (RBC) [Mass/Vol] 33.4 g/dL Normal 32-36 [facility] Comment on above: Performed By: #### 2 157-6, CMP, CBCA, 04738-4 #### [facility] ([id number]) [address] [place] [address] 70169 MCV (RBC) [Entitic vol] 97 fL Normal 80-100 [facility] Comment on above: Performed By: #### 2 157-6, CMP, CBCA, 46079-0 #### [facility] ([id number]) [address] [place] [address] 45541 Monocytes (Bld) [#/Vol] 0.5 10*3/uL Normal 0-0.9 [facility] Comment on above: Performed By: #### 2 157-6, CMP, CBCA, 32502-2 #### [facility] ([id number]) [address] [place] [address] 92193 Monocytes/100 WBC (Bld) 6.9 % Normal [facility] Comment on above: Performed By: #### 2 157-6, CMP, CBCA, 06656-0 #### [facility] ([id number]) [address] [place] [address] 22115 Neutrophils/100 WBC (Bld) 55.1 % Normal [facility] Comment on above: Performed By: #### 2 157-6, CMP, CBCA, 77137-7 #### [facility] ([id number]) [address] [place] [address] 96533 Platelet mean volume (Bld) [Entitic vol] 9.9 fL Normal 7-12 [facility] Comment on above: Performed By: #### 2 157-6, CMP, CBCA, 02215-8 #### [facility] ([id number]) [address] [place] [address] 89821 Platelets (Bld) [#/Vol] 225 10*3/uL Normal 150-450 [facility] Comment on above: Performed By: #### 2 157-6, CMP, CBCA, 05644-7 #### [facility] ([id number]) [address] [place] [address] 26018 RBC COUNT 2.85 X10E12/L Low 4.10-5.70 [facility] Comment on above: Performed By: #### 2 157-6, CMP, CBCA, 17968-7 #### [facility] ([id number]) [address] [place] [address] WBC (Bld) [#/Vol] 7.7 10*3/uL Normal 4.0-11.0 [facility] Comment on above: Performed By: #### 2 157-6, CMP, CBCA, 58257-3 #### [facility] ([id number]) [address] [place] [address] Progress Noteson 06-10-2024 Securities Adviser Authentication Interface Message Text Identification was verified by patient verbalizing his name and date of . Normal [facility] 36on 06-03-2024 36 Labs are in media Normal [facility] CBC AND AUTO DIFFon 05-28-20 24 ABSOLUTE BASOPHIL 0.1 X10E9/L Normal 0.0-0.2 [facility] Comment on above: Performed By: #### C BCA, CMP #### [facility] ([id number]) [address] [place] [address] 32896 ABSOLUTE NEUTROPHIL 5.3 X10E9/L Normal 1.5-6.6 [facility] Comment on above: Performed By: #### C BCA, CMP #### [facility] ([id number]) [address] [place] [address] 22534 Basophils/100 WBC (Bld) 1.1 % Normal [facility] Comment on above: Performed By: #### C BCA, CMP #### [facility] ([id number]) [address] [place] [address] 31548 Eosinophils (Bld) [#/Vol] 0.4 10*3/uL Normal 0.0-0.4 [facility] Comment on above: Performed By: #### C BCA, CMP #### [facility] ([id number]) [address] [place] [address] 94198 Eosinophils/100 WBC (Bld) 4.9 % Normal [facility] Comment on above: Performed By: #### C BCA, CMP #### [facility] ([id number]) [address] [place] [address] Erythrocyte distribution width (RBC) [Ratio] 19.5 % High 11.5-15.0 [facility] Comment on above: Performed By: #### C BCA, CMP #### [facility] ([id number]) [address] [place] [address] Hematocrit (Bld) [Volume fraction] 25.2 % Low 39-49 [facility] Comment on above: Performed By: #### C BCA, CMP #### [facility] ([id number]) [address] [place] [address] Hemoglobin (Bld) [Mass/Vol] 8.1 g/dL Low 13.0-17.0 [facility] Comment on above: Performed By: #### C BCA, CMP #### [facility] ([id number]) [address] [place] [address] Lymphocytes (Bld) [#/Vol] 1.2 10*3/uL Normal 1.0-3.5 [facility] Comment on above: Performed By: #### C BCA, CMP #### [facility] ([id number]) [facility] [place] [place] [address] Lymphocytes/100 WBC (Bld) 16.0 % Normal [facility] Comment on above: Performed By: #### C BCA, CMP #### [facility] ([id number]) [facility] [place] [place] [address] MCH (RBC) [Entitic mass] 30.3 pg Normal 27-34 [facility] Comment on above: Performed By: #### C BCA, CMP #### [facility] ([id number]) [address] [place] [address] MCHC (RBC) [Mass/Vol] 32.0 g/dL Normal 32-36 [facility] Comment on above: Performed By: #### C BCA, CMP #### [facility] ([id number]) [address] [place] [address] MCV (RBC) [Entitic vol] 95 fL Normal 80-100 [facility] Comment on above: Performed By: #### C LENO, CMP #### [facility] ([id number]) [address] [place] [address] Monocytes (Bld) [#/Vol] 0.7 10*3/uL Normal 0-0.9 [facility] Comment on above: Performed By: #### C BCA, CMP #### [facility] ([id number]) [address] [place] [address] Monocytes/100 WBC (Bld) 8.8 % Normal [facility] Comment on above: Performed By: #### C LENO, CMP #### [facility] ([id number]) [facility] [place] [address] Neutrophils/100 WBC (Bld) 69.2 % Normal [facility] Comment on above: Performed By: #### C LENO, CMP #### [facility] ([id number]) [facility] [place] [address] Platelet mean volume (Bld) [Entitic vol] 9.2 fL Normal 7-12 [facility] Comment on above: Performed By: #### C BCA, CMP #### [facility] ([id number]) [address] [place] [address] Platelets (Bld) [#/Vol] 247 10*3/uL Normal 150-450 [facility] Comment on above: Performed By: #### C BCA, CMP #### [facility] ([id number]) [address] [place] [address] RBC COUNT 2.66 X10E12/L Low 4.10-5.70 [facility] Comment on above: Performed By: #### C BCA, CMP #### [facility] ([id number]) [address] [place] [address] STOMATOCYTE 1+ Abnormal NONE [facility] Comment on above: Performed By: #### C BCA, CMP #### [facility] ([id number]) [facility] [place] [place] [address] WBC (Bld) [#/Vol] 7.6 10*3/uL Normal 4.0-11.0 [facility] Comment on above: Performed By: #### C BCA, CMP #### [facility] ([id number]) [address] [place] [address] COMPREHENSIVE METABOLIC PANE Nick 05-28-2024 Albumin [Mass/Vol] 2.6 g/dL Low 3.2-5.3 [facility] Comment on above: Performed By: #### C BCA, CMP #### [facility] ([id number]) [address] [place] [address] ALP [Catalytic activity/Vol] 136 U/L High 39-130 [facility] Comment on above: Performed By: #### C BCA, CMP #### [facility] ([id number]) [address] [place] [address] ALT [Catalytic activity/Vol] 7 U/L Normal 0-40 [facility] Comment on above: Performed By: #### C BCA, CMP #### [facility] ([id number]) [address] [place] [address] Anion gap [Moles/Vol] 10 mmol/L Normal 5-15 [facility] Comment on above: Performed By: #### C BCA, CMP #### [facility] ([id number]) [address] [place] [address] AST [Catalytic activity/Vol] 15 U/L Normal 0-41 [facility] Comment on above: Performed By: #### C BCA, CMP #### [facility] ([id number]) [address] [place] [address] Bilirubin [Mass/Vol] 0.5 mg/dL Normal 0.3-1.2 [facility] Comment on above: Performed By: #### C BCA, CMP #### [facility] ([id number]) [address] [place] [address] Calcium [Mass/Vol] 8.5 mg/dL Normal 8.5-10.5 [facility] Comment on above: Performed By: #### C BCA, CMP #### [facility] ([id number]) [address] [place] [address] Chloride [Moles/Vol] 98 mmol/L Normal 98-109 [facility] Comment on above: Performed By: #### C BCA, CMP #### [facility] ([id number]) [address] [place] [address] CO2 [Moles/Vol] 25 mmol/L Normal 22-32 [facility] Comment on above: Performed By: #### C BCA, CMP #### [facility] ([id number]) [address] [place] [address] Creatinine [Mass/Vol] 3.82 mg/dL High 0.60-1.30 [facility] Comment on above: Result Comment: METH OD TRACEABLE TO IDMS STANDARD Performed By: #### C BCA, CMP #### [facility] ([id number]) [address] [place] [address] GFR/1.73 sq M.predicted among non-blacks MDRD (S/P/Bld) [Vol rate/Area] 17 mL/min/{1.73_m2} Low >59 [facility] Comment on above: Result Comment: Reported eGFR is based on the CKD-EPI 1 equation that does not use a race coefficient. Performed By: #### C BCA, CMP #### [facility] ([id number]) [address] [place] [address] Glucose [Mass/Vol] 122 mg/dL High 65-99 [facility] Comment on above: Performed By: #### C BCA, CMP #### [facility] ([id number]) [address] [place] [address] Potassium [Moles/Vol] 4.4 mmol/L Normal 3.5-5.0 [facility] Comment on above: Performed By: #### C BCA, CMP #### [facility] ([id number]) [address] [place] [address] Protein [Mass/Vol] 5.9 g/dL Low 6.0-8.0 [facility] Comment on above: Performed By: #### C BCA, CMP #### [facility] ([id number]) [address] [place] [address] Sodium [Moles/Vol] 133 mmol/L Low 134-146 [facility] Comment on above: Performed By: #### C BCA, CMP #### [facility] ([id number]) [address] [place] [address] Urea nitrogen [Mass/Vol] 26 mg/dL High 5-23 [facility] Comment on above: Performed By: #### C BCA, CMP #### [facility] ([id number]) [address] [place] [address] Calcium.ionized (Bld) [Mass/ Vol]on 05-28-2024 IONIZED CALCIUM 4.6 mg/dL Normal 4.5-5.3 [facility] Comment on above: Performed By: #### C BCA, CMP #### [facility] ([id number]) [address] [place] [address] Glucose Glucometer (BldC) [M ass/Vol]on 05-28-2024 Glucose [Mass/Vol] 168 mg/dL High 65-99 [facility] Glucose [Mass/Vol] 143 mg/dL High 65-99 [facility] MAGNESIUMon 05-28-2024 Magnesium [Mass/Vol] 1.9 mg/dL Normal 1.8-2.6 [facility] Comment on above: Performed By: #### C BCA, CMP #### [facility] ([id number]) [address] [place] [address] PHOSPHORUSon 05-28-2024 Phosphate [Mass/Vol] 3.5 mg/dL Normal 2.4-4.9 [facility] Comment on above: Performed By: #### C BCA, CMP #### [facility] ([id number]) [address] [place] [address] CBC AND AUTO DIFFon 05-27-20 24 ABSOLUTE BASOPHIL 0.1 X10E9/L Normal 0.0-0.2 [facility] Comment on above: Performed By: #### C BCA, CMP #### [facility] ([id number]) [address] [place] [address] Band form neutrophils/100 WBC (Bld) 2.0 % Normal [facility] Comment on above: Performed By: #### C LENO, CMP #### [facility] ([id number]) [facility] [place] [place] [address] Basophils/100 WBC (Bld) 1.0 % Normal [facility] Comment on above: Performed By: #### C LENO, CMP #### [facility] ([id number]) [facility] [place] [place] [address] Eosinophils (Bld) [#/Vol] 0.5 10*3/uL High 0.0-0.4 [facility] Comment on above: Performed By: #### C BCA, CMP #### [facility] ([id number]) [facility] [place] [place] [address] Eosinophils/100 WBC (Bld) 7.0 % Normal [facility] Comment on above: Performed By: #### C BCA, CMP #### [facility] ([id number]) [facility] [place] [place] [address] Erythrocyte distribution width (RBC) [Ratio] 19.3 % High 11.5-15.0 [facility] Comment on above: Performed By: #### C BCA, CMP #### [facility] ([id number]) [address] [place] [address] Hematocrit (Bld) [Volume fraction] 23.8 % Low 39-49 [facility] Comment on above: Performed By: #### C BCA, CMP #### [facility] ([id number]) [address] [place] [address] Hemoglobin (Bld) [Mass/Vol] 8.1 g/dL Low 13.0-17.0 [facility] Comment on above: Performed By: #### C BCA, CMP #### [facility] ([id number]) [address] [place] [address] Lymphocytes (Bld) [#/Vol] 1.4 10*3/uL Normal 1.0-3.5 [facility] Comment on above: Performed By: #### C BCA, CMP #### [facility] ([id number]) [address] [place] [address] Lymphocytes/100 WBC (Bld) 19.0 % Normal [facility] Comment on above: Performed By: #### C BCA, CMP #### [facility] ([id number]) [address] [place] [address] MCH (RBC) [Entitic mass] 31.9 pg Normal 27-34 [facility] Comment on above: Performed By: #### C BCA, CMP #### [facility] ([id number]) [address] [place] [address] MCHC (RBC) [Mass/Vol] 34.0 g/dL Normal 32-36 [facility] Comment on above: Performed By: #### C BCA, CMP #### [facility] ([id number]) [address] [place] [address] MCV (RBC) [Entitic vol] 94 fL Normal 80-100 [facility] Comment on above: Performed By: #### C BCA, CMP #### [facility] ([id number]) [address] [place] [address] Metamyelocytes/100 WBC (Bld) 4.0 % Normal [facility] Comment on above: Performed By: #### C BCA, CMP #### [facility] ([id number]) [address] [place] [address] Monocytes (Bld) [#/Vol] 0.4 10*3/uL Normal 0-0.9 [facility] Comment on above: Performed By: #### C BCA, CMP #### [facility] ([id number]) [address] [place] [address] Monocytes/100 WBC (Bld) 5.0 % Normal [facility] Comment on above: Performed By: #### C BCA, CMP #### [facility] ([id number]) [address] [place] [address] MYELOCYTE 1.0 % Normal [facility] Comment on above: Performed By: #### C BCA, CMP #### [facility] ([id number]) [address] [place] [address] Neutrophils (Bld) [#/Vol] 4.6 10*3/uL Normal 1.5-6.6 [facility] Comment on above: Performed By: #### C BCA, CMP #### [facility] ([id number]) [address] [place] [address] Platelet mean volume (Bld) [Entitic vol] 9.2 fL Normal 7-12 [facility] Comment on above: Performed By: #### C BCA, CMP #### [facility] ([id number]) [address] [place] [address] Platelets (Bld) [#/Vol] 230 10*3/uL Normal 150-450 [facility] Comment on above: Performed By: #### C BCA, CMP #### [facility] ([id number]) [address] [place] [address] POLYCHROMASIA 1+ Abnormal NONE [facility] Comment on above: Performed By: #### C BCA, CMP #### [facility] ([id number]) [address] [facility] [place] [address] RBC COUNT 2.54 X10E12/L Low 4.10-5.70 [facility] Comment on above: Performed By: #### C BCA, CMP #### [facility] ([id number]) [address] [place] [address] SEG NEUTROPHIL 61.0 % Normal [facility] Comment on above: Performed By: #### C BCA, CMP #### [facility] ([id number]) [address] [place] [address] STOMATOCYTE 2+ Abnormal NONE [facility] Comment on above: Performed By: #### C BCA, CMP #### [facility] ([id number]) [address] [place] [address] WBC (Bld) [#/Vol] 7.4 10*3/uL Normal 4.0-11.0 [facility] Comment on above: Performed By: #### C BCA, CMP #### [facility] ([id number]) [facility] [place] [address] COMPREHENSIVE METABOLIC PANE [facility] 05-27-2024 Albumin [Mass/Vol] 2.7 g/dL Low 3.2-5.3 [facility] Comment on above: Performed By: #### C BCA, CMP #### [facility] ([id number]) [facility] [place] [address] ALP [Catalytic activity/Vol] 137 U/L High 39-130 [facility] Comment on above: Performed By: #### C BCA, CMP #### [facility] ([id number]) [facility] [place] [place] [address] ALT [Catalytic activity/Vol] 10 U/L Normal 0-40 [facility] Comment on above: Performed By: #### C BCA, CMP #### [facility] ([id number]) [facility] [place] [place] [address] Anion gap [Moles/Vol] 10 mmol/L Normal 5-15 [facility] Comment on above: Performed By: #### C BCA, CMP #### [facility] ([id number]) [address] [place] [address] AST [Catalytic activity/Vol] 18 U/L Normal 0-41 [facility] Comment on above: Performed By: #### C BCA, CMP #### [facility] ([id number]) [address] [place] [address] Bilirubin [Mass/Vol] 0.6 mg/dL Normal 0.3-1.2 [facility] Comment on above: Performed By: #### C BCA, CMP #### [facility] ([id number]) [address] [place] [address] Calcium [Mass/Vol] 8.5 mg/dL Normal 8.5-10.5 [facility] Comment on above: Performed By: #### C BCA, CMP #### [facility] ([id number]) [address] [place] [address] Chloride [Moles/Vol] 94 mmol/L Low 98-109 [facility] Comment on above: Performed By: #### C BCA, CMP #### [facility] ([id number]) [address] [place] [address] CO2 [Moles/Vol] 26 mmol/L Normal 22-32 [facility] Comment on above: Performed By: #### C BCA, CMP #### [facility] ([id number]) [address] [place] [address] Creatinine [Mass/Vol] 4.94 mg/dL High 0.60-1.30 [facility] Comment on above: Result Comment: METH OD TRACEABLE TO IDMS STANDARD Performed By: #### C BCA, CMP #### [facility] ([id number]) [address] [place] [address] GFR/1.73 sq M.predicted among non-blacks MDRD (S/P/Bld) [Vol rate/Area] 13 mL/min/{1.73_m2} Low >59 [facility] Comment on above: Result Comment: Reported eGFR is based on the CKD-EPI 2020 equation that does not use a race coefficient. Performed By: #### C BCA, CMP #### [facility] ([id number]) [address] [place] [address] Glucose [Mass/Vol] 132 mg/dL High 65-99 [facility] Comment on above: Performed By: #### C BCA, CMP #### [facility] ([id number]) [address] [place] [address] Potassium [Moles/Vol] 4.5 mmol/L Normal 3.5-5.0 [facility] Comment on above: Performed By: #### C BCA, CMP #### [facility] ([id number]) [facility] [place] [address] Protein [Mass/Vol] 6.1 g/dL Normal 6.0-8.0 [facility] Comment on above: Performed By: #### C BCA, CMP #### [facility] ([id number]) [facility] [place] [address] Sodium [Moles/Vol] 130 mmol/L Low 134-146 [facility] Comment on above: Performed By: #### C BCA, CMP #### [facility] ([id number]) [facility] [place] [address] Urea nitrogen [Mass/Vol] 39 mg/dL High 5-23 [facility] Comment on above: Performed By: #### C BCA, CMP #### [facility] ([id number]) [facility] [place] [address] Calcium.ionized (Bld) [Mass/ Vol]on 05-27-2024 IONIZED CALCIUM 4.6 mg/dL Normal 4.5-5.3 [facility] Comment on above: Performed By: #### C BCA, CMP #### [facility] ([id number]) [address] [place] [address] Glucose Glucometer (BldC) [M ass/Vol]on 05-27-2024 Glucose [Mass/Vol] 226 mg/dL High 65-99 [facility] Glucose [Mass/Vol] 209 mg/dL High 65-99 [facility] Glucose [Mass/Vol] 106 mg/dL High 65-99 [facility] HBV surface Ab IA Qnon 05-27 Anti HBs quant. 12.39 mIU/mL Normal [facility] Comment on above: Result Comment: Vacc inated: >=12mIU/mL, Positive (Immune) Unvaccinated: <8mIU/mL, Negative (Not Immune) 8-11.99 mIU/mL: Indeterminate, (Considered Not Immune) Performed By: #### 5 193-8, 5196-1 ####[facility] ([id number])[address] [place] [address], [address] [place] [address] HBV surface Ag IA Qlon 05-27 HEPATITIS B SURF AG Negative Normal NEG [facility] Comment on above: Performed By: #### 5 193-8, 5196-1 ####[facility] ([id number])[address] [place] [address], [address] [place] [address] MAGNESIUMon 05-27-2024 Magnesium [Mass/Vol] 2.0 mg/dL Normal 1.8-2.6 [facility] Comment on above: Performed By: #### C BCA, CMP #### [facility] ([id number]) [address] [place] [address] PHOSPHORUSon 05-27-2024 Phosphate [Mass/Vol] 4.0 mg/dL Normal 2.4-4.9 [facility] Comment on above: Performed By: #### C BCA, CMP #### [facility] ([id number]) [address] [place] [address] CBC AND AUTO DIFFon 05-26-20 24 ABSOLUTE BASOPHIL 0.1 X10E9/L Normal 0.0-0.2 [facility] Comment on above: Performed By: #### C BCA, CMP, 2777-1, 2156 ####[facility] ([id number])[address] [address], [address] [place] [address] Basophils/100 WBC (Bld) 1.0 % Normal [facility] Comment on above: Performed By: #### C BCA, CMP, 2776-07, 2156-12 ####[facility] ([id number])[address], [address], [place] [address] Eosinophils (Bld) [#/Vol] 0.7 10*3/uL High 0.0-0.4 [facility] Comment on above: Performed By: #### C BCA, CMP, 2776-07, 2156-12 ####[facility] ([id number])[address] [address], [address] [place] [address] Eosinophils/100 WBC (Bld) 9.0 % Normal [facility] Comment on above: Performed By: #### Charity BCA, CMP, 2776-07, 2156-12 ####[facility] ([id number])[address] [address], [address] [place] [address] Erythrocyte distribution width (RBC) [Ratio] 19.2 % High 11.5-15.0 [facility] Comment on above: Performed By: #### C BCA, CMP, 2776-07, 2156-12 ####[facility] ([id number])[address], [address] [place] [address] FRAGMENT 1+ Abnormal NONE [facility] Comment on above: Performed By: #### C BCA, CMP, 2776-07, 2156-12 ####[facility] ([id number])[address] [address] [place] [address] Hematocrit (Bld) [Volume fraction] 27.7 % Low 39-49 [facility] Comment on above: Performed By: #### C BCA, CMP, 2776-07, 2156-12 ####[facility] ([id number])[address], [address], [place] [address] Hemoglobin (Bld) [Mass/Vol] 8.9 g/dL Low 13.0-17.0 [facility] Comment on above: Performed By: #### C BCA, CMP, 2776-, 2156-12 ####[facility] ([id number])[address], [address], [place] [address] HYPOCHROMIA 1+ Abnormal NONE [facility] Comment on above: Performed By: #### C BCA, CMP, 2776-07, 2156-12 ####[facility] ([id number])[address] [address], [address] [place] [address] Lymphocytes (Bld) [#/Vol] 1.5 10*3/uL Normal 1.0-3.5 [facility] Comment on above: Performed By: #### C BCA, CMP, 2776-07, 2156-12 ####[facility] ([id number])[address] [address] [place] [address] Lymphocytes/100 WBC (Bld) 19.0 % Normal [facility] Comment on above: Performed By: #### C BCA, CMP, 2776-07, 2156-12 ####[facility] ([id number])[address] [address] [place] [address] MCH (RBC) [Entitic mass] 30.6 pg Normal 27-34 [facility] Comment on above: Performed By: #### C BCA, CMP, 2776-07, 2156-12 ####[facility] ([id number])[address] [address] [place] [address] MCHC (RBC) [Mass/Vol] 32.2 g/dL Normal 32-36 [facility] Comment on above: Performed By: #### C BCA, CMP, 2776-07, 2156-12 ####[facility] ([id number])[address] [address], [address] [place] [address] MCV (RBC) [Entitic vol] 95 fL Normal 80-100 [facility] Comment on above: Performed By: #### C BCA, CMP, 2776-07, 2156-12 ####[facility] ([id number])[address], [address] [place] [address] Metamyelocytes/100 WBC (Bld) 4.0 % Normal [facility] Comment on above: Performed By: #### C BCA, CMP, 2776-07, 2156-12 ####[facility] ([id number])[address] [address], [address] [place] [address] Monocytes (Bld) [#/Vol] 0.3 10*3/uL Normal 0-0.9 [facility] Comment on above: Performed By: #### C BCA, CMP, 2776-07, 2156-12 ####[facility] ([id number])[address] [address], [address] [place] [address] Monocytes/100 WBC (Bld) 4.0 % Normal [facility] Comment on above: Performed By: #### C BCA, CMP, 2776-07, 2156-12 ####[facility] ([id number])[address] [address], [address] [address] MYELOCYTE 5.0 % Normal [facility] Comment on above: Performed By: #### C BCA, CMP, 2776-07, 2156-12 ####[facility] ([id number])[address] [address], [address] [place] [address] Neutrophils (Bld) [#/Vol] 4.8 10*3/uL Normal 1.5-6.6 [facility] Comment on above: Performed By: #### C BCA, CMP, 2776-07, 2156-12 ####[facility] ([id number])[address] [address] [place] [address] Platelet mean volume (Bld) [Entitic vol] 9.3 fL Normal 7-12 [facility] Comment on above: Performed By: #### C BCA, CMP, 2776-, 2156-12 ####[facility] ([id number])[address] [address] Platelets (Bld) [#/Vol] 271 10*3/uL Normal 150-450 [facility] Comment on above: Performed By: #### C BCA, CMP, 2776-07, 2156-12 ####[facility] ([id number])[address] [address] RBC COUNT 2.92 X10E12/L Low 4.10-5.70 [facility] Comment on above: Performed By: #### C BCA, CMP, 2776-07, 2156-12 ####[facility] ([id number])[address] [address] SEG NEUTROPHIL 58.0 % Normal [facility] Comment on above: Performed By: #### C BCA, CMP, 2776-07, 2156-12 ####[facility] ([id number])[address] [address] WBC (Bld) [#/Vol] 8.1 10*3/uL Normal 4.0-11.0 [facility] Comment on above: Performed By: #### C BCA, CMP, 2776-07, 2156-12 ####[facility] ([id number])[address] [address] [place] [address] CK [Catalytic activity/Vol]o n 05-26-2023 CPK 19 U/L Low 24-195 [facility] Comment on above: Performed By: #### C BCA, CMP, 2776-07, 2156-12 ####[facility] ([id number])[address], [place] [address] COMPREHENSIVE METABOLIC PANE Nick 05-26-2024 Albumin [Mass/Vol] 2.6 g/dL Low 3.2-5.3 [facility] Comment on above: Performed By: #### C BCA, CMP, 2776-07, 2156-12 ####[facility] ([id number])[address], [place] [address] ALP [Catalytic activity/Vol] 154 U/L High 39-130 [facility] Comment on above: Performed By: #### C BCA, CMP, 2776-07, 2156-12 ####[facility] ([id number])[address], [place] [address] ALT [Catalytic activity/Vol] 10 U/L Normal 0-40 [facility] [facility] Comment on above: Performed By: #### C BCA, CMP, 2776-07, 2156-12 ####[facility] ([id number])[address], [address], [place] [address] Anion gap [Moles/Vol] 9 mmol/L Normal 5-15 [facility] Comment on above: Performed By: #### C BCA, CMP, 2776-07, 2156-12 ####[facility] ([id number])[address], [address], [place] [address] AST [Catalytic activity/Vol] 27 U/L Normal 0-41 [facility] Comment on above: Performed By: #### C BCA, CMP, 2776-07, 2156-12 ####[facility] ([id number])[address], [address], [place] [address] Bilirubin [Mass/Vol] 0.6 mg/dL Normal 0.3-1.2 [facility] Comment on above: Performed By: #### C BCA, CMP, 2776-07, 2156-12 ####[facility] ([id number])[address], [address], [place] [address] Calcium [Mass/Vol] 8.4 mg/dL Low 8.5-10.5 [facility] Comment on above: Performed By: #### C BCA, CMP, 2776-07, 2156-12 ####[facility] ([id number])[address], [address] [place] [address] Chloride [Moles/Vol] 95 mmol/L Low 98-109 [facility] Comment on above: Performed By: #### C BCA, CMP, 2776-07, 2156-12 ####[facility] ([id number])[address], [address] [place] [address] CO2 [Moles/Vol] 27 mmol/L Normal 22-32 [facility] Comment on above: Performed By: #### C BCA, CMP, 2776-07, 2156-12 ####[facility] ([id number])[address] [address] [place] [address] Creatinine [Mass/Vol] 3.88 mg/dL High 0.60-1.30 [facility] Comment on above: Result Comment: METH OD TRACEABLE TO IDMS STANDARD Performed By: #### C BCA, CMP, 2776-07, 2156-12 ####[facility] ([id number])[address] [address] GFR/1.73 sq M.predicted among non-blacks MDRD (S/P/Bld) [Vol rate/Area] 17 mL/min/{1.73_m2} Low >59 [facility] Comment on above: Result Comment: Reported eGFR is based on the CKD-EPI 2020 equation that does not use a race coefficient. Performed By: #### C BCA, CMP, 2776-07, 2156-12 ####[facility] ([id number])[address], [address], [place] [address] Glucose [Mass/Vol] 144 mg/dL High 65-99 [facility] Comment on above: Performed By: #### C BCA, CMP, 2776-07, 2156-12 ####[facility] ([id number])[address], [address], [place] [address] Potassium [Moles/Vol] 4.6 mmol/L Normal 3.5-5.0 [facility] Comment on above: Performed By: #### C BCA, CMP, 2776-07, 2156-12 ####[facility] ([id number])[address], [address], [place] [address] Protein [Mass/Vol] 6.1 g/dL Normal 6.0-8.0 [facility] Comment on above: Performed By: #### C BCA, CMP, 2776-07, 2156-12 ####[facility] ([id number])[address], [address] [place] [address] Sodium [Moles/Vol] 131 mmol/L Low 134-146 [facility] Comment on above: Performed By: #### C BCA, CMP, 2776-07, 2156-12 ####[facility] ([id number])[address], [address] [place] [address] Urea nitrogen [Mass/Vol] 30 mg/dL High 5-23 [facility] Comment on above: Performed By: #### C BCA, CMP, 2776-07, 2156-12 ####[facility] ([id number])[address], [address], [place] [address] Glucose Glucometer (BldC) [M ass/Vol]on 05-26-2024 Glucose [Mass/Vol] 174 mg/dL High 65-99 [facility] Glucose [Mass/Vol] 201 mg/dL High 65-99 [facility] Glucose [Mass/Vol] 231 mg/dL High 65-99 [facility] Glucose [Mass/Vol] 169 mg/dL High 65-99 [facility] PHOSPHORUSon 05-26-2024 Phosphate [Mass/Vol] 3.2 mg/dL Normal 2.4-4.9 [facility] Comment on above: Performed By: #### C LENO, CMP, 2777-1, 2157-6 ####[facility] ([id number])[address], [address] [place] [address] CBC AND AUTO DIFFon 05-25-20 ABSOLUTE BASOPHIL 0.1 X10E9/L Normal 0.0-0.2 [facility] Comment on above: Performed By: #### C LENO, CMP ####[facility] ([id number])[address], [address] [place] [address] ABSOLUTE NEUTROPHIL 4.5 X10E9/L Normal 1.5-6.6 [facility] Comment on above: Performed By: #### C LENO, CMP ####[facility] ([id number])[address], [address] [place] [address] Basophils/100 WBC (Bld) 1.6 % Normal [facility] Comment on above: Performed By: #### C BCA, CMP ####[facility] ([id number])[address] [address], [place] [address] Eosinophils (Bld) [#/Vol] 0.5 10*3/uL High 0.0-0.4 [facility] Comment on above: Performed By: #### C BCA, CMP ####[facility] ([id number])[address] [address] [place] [address] Eosinophils/100 WBC (Bld) 6.9 % Normal [facility] Comment on above: Performed By: #### C BCA, CMP ####[facility] ([id number])[address], [address], [place] [address] Erythrocyte distribution width (RBC) [Ratio] 18.7 % High 11.5-15.0 [facility] Comment on above: Performed By: #### C LENO, CMP ####[facility] ([id number])[address], [address], [place] [address] Hematocrit (Bld) [Volume fraction] 23.7 % Low 39-49 [facility] Comment on above: Performed By: #### C LENO, CMP ####[facility] ([id number])[address], [address], [place] [address] Hemoglobin (Bld) [Mass/Vol] 7.8 g/dL Low 13.0-17.0 [facility] Comment on above: Performed By: #### C LENO, CMP ####[facility] ([id number])[address], [address] [place] [address] Lymphocytes (Bld) [#/Vol] 1.0 10*3/uL Normal 1.0-3.5 [facility] Comment on above: Performed By: #### C LENO, CMP ####[facility] ([id number])[address], [address], [place] [address] Lymphocytes/100 WBC (Bld) 15.3 % Normal [facility] Comment on above: Performed By: #### C LENO, CMP ####[facility] ([id number])[address], [address], [place] [address] MCH (RBC) [Entitic mass] 30.6 pg Normal 27-34 [facility] Comment on above: Performed By: #### C BCA, CMP ####[facility] ([id number])[address], [address], [place] [address] MCHC (RBC) [Mass/Vol] 33.0 g/dL Normal 32-36 [facility] Comment on above: Performed By: #### C BCA, CMP ####[facility] ([id number])[address], [place] [address] MCV (RBC) [Entitic vol] 93 fL Normal 80-100 [facility] Comment on above: Performed By: #### C BCA, CMP ####[facility] ([id number])[address], [place] [address] Monocytes (Bld) [#/Vol] 0.6 10*3/uL Normal 0-0.9 [facility] Comment on above: Performed By: #### C LENO, CMP ####[facility] ([id number])[address], [address], [place] [address] Monocytes/100 WBC (Bld) 8.8 % Normal [facility] Comment on above: Performed By: #### C LENO, CMP ####[facility] ([id number])[address], [address], [place] [address] Neutrophils/100 WBC (Bld) 67.4 % Normal [facility] Comment on above: Performed By: #### C LENO, CMP ####[facility] ([id number])[address], [address], [place] [address] Platelet mean volume (Bld) [Entitic vol] 9.1 fL Normal 7-12 [facility] Comment on above: Performed By: #### C BCA, CMP ####[facility] ([id number])[address], [address], [place] [address] Platelets (Bld) [#/Vol] 220 10*3/uL Normal 150-450 [facility] Comment on above: Performed By: #### C BCA, CMP ####[facility] ([id number])[address], [place] [address] RBC COUNT 2.55 X10E12/L Low 4.10-5.70 [facility] Comment on above: Performed By: #### C BCA, CMP ####[facility] ([id number])[address], [address] [place] [address] WBC (Bld) [#/Vol] 6.8 10*3/uL Normal 4.0-11.0 [facility] Comment on above: Performed By: #### C BCA, CMP ####[facility] ([id number])[address], [address], [place] [address] COMPREHENSIVE METABOLIC PANE Nick 05-25-2024 Albumin [Mass/Vol] 2.4 g/dL Low 3.2-5.3 [facility] Comment on above: Performed By: #### C BCA, CMP ####[facility] ([id number])[address], [address], [place] [address] ALP [Catalytic activity/Vol] 132 U/L High 39-130 [facility] Comment on above: Performed By: #### C BCA, CMP ####[facility] ([id number])[address] [address] [place] [address] ALT [Catalytic activity/Vol] 8 U/L Normal 0-40 [facility] Comment on above: Performed By: #### C BCA, CMP ####[facility] ([id number])[address], [address] [place] [address] Anion gap [Moles/Vol] 12 mmol/L Normal 5-15 [facility] Comment on above: Performed By: #### C BCA, CMP ####[facility] ([id number])[address], [address] [place] [address], [place] [address] AST [Catalytic activity/Vol] 19 U/L Normal 0-41 [facility] Comment on above: Performed By: #### C BCA, CMP ####[facility] ([id number])[address] [address], [place] [address] Bilirubin [Mass/Vol] 0.5 mg/dL Normal 0.3-1.2 [facility] Comment on above: Performed By: #### C BCA, CMP ####[facility] ([id number])[address] [address], [place] [address] Calcium [Mass/Vol] 8.1 mg/dL Low 8.5-10.5 [facility] Comment on above: Performed By: #### C BCA, CMP ####[facility] ([id number])[address] [address] [place] [address] Chloride [Moles/Vol] 94 mmol/L Low 98-109 [facility] Comment on above: Performed By: #### C BCA, CMP ####[facility] ([id number])[address] [address], [place] [address] CO2 [Moles/Vol] 26 mmol/L Normal 22-32 [facility] Comment on above: Performed By: #### C BCA, CMP ####[facility] ([id number])[address] [address], [place] [address] Creatinine [Mass/Vol] 5.72 mg/dL High 0.60-1.30 [facility] Comment on above: Result Comment: METH OD TRACEABLE TO IDMS STANDARD Performed By: #### C BCA, CMP ####[facility] ([id number])[address] [address] [address] GFR/1.73 sq M.predicted among non-blacks MDRD (S/P/Bld) [Vol rate/Area] 11 mL/min/{1.73_m2} Low >59 [facility] Comment on above: Result Comment: Reported eGFR is based on the CKD-EPI 2020 equation that does not use a race coefficient. Performed By: #### C BCA, CMP ####[facility] ([id number])[address], [place] [address] Glucose [Mass/Vol] 152 mg/dL High 65-99 [facility] Comment on above: Performed By: #### C BCA, CMP ####[facility] ([id number])[address], [address], [place] [address] Potassium [Moles/Vol] 4.7 mmol/L Normal 3.5-5.0 [facility] Comment on above: Performed By: #### C BCA, CMP ####[facility] ([id number])[address], [place] [address] Protein [Mass/Vol] 5.5 g/dL Low 6.0-8.0 [facility] Comment on above: Performed By: #### C BCA, CMP ####[facility] ([id number])[address], [address], [place] [address] Sodium [Moles/Vol] 132 mmol/L Low 134-146 [facility] Comment on above: Performed By: #### C BCA, CMP ####[facility] ([id number])[address], [address] [place] [address] Urea nitrogen [Mass/Vol] 59 mg/dL High 5-23 [facility] Comment on above: Performed By: #### C BCA, CMP ####[facility] ([id number])[address], [place] [address] Glucose Glucometer (BldC) [M ass/Vol]on 05-25-2024 Glucose [Mass/Vol] 172 mg/dL High 65-99 [facility] Glucose [Mass/Vol] 143 mg/dL High 65-99 [facility] Glucose [Mass/Vol] 195 mg/dL High 65-99 [facility] Glucose [Mass/Vol] 153 mg/dL High 65-99 [facility] CBC AND AUTO DIFFon 11-10-20 24 ABSOLUTE BASOPHIL 0.1 X10E9/L Normal 0.0-0.2 [facility] Comment on above: Performed By: #### C BCA, CMP ####[facility] ([id number])[address] [place] [address] Band form neutrophils/100 WBC (Bld) 1.0 % Normal [facility] Comment on above: Performed By: #### C BCA, CMP ####[facility] ([id number])[address] [place] [address] Basophils/100 WBC (Bld) 1.0 % Normal [facility] Comment on above: Performed By: #### C BCA, CMP ####[facility] ([id number])[address] [place] [address] Eosinophils (Bld) [#/Vol] 0.7 10*3/uL High 0.0-0.4 [facility] Comment on above: Performed By: #### C BCA, CMP ####[facility] ([id number])[address] [place] [address] Eosinophils/100 WBC (Bld) 9.0 % Normal [facility] Comment on above: Performed By: #### C BCA, CMP ####[facility] ([id number])[address] [place] [address] Erythrocyte distribution width (RBC) [Ratio] 19.4 % High 11.5-15.0 [facility] Comment on above: Performed By: #### C BCA, CMP ####[facility] ([id number])[address] [place] [address] Hematocrit (Bld) [Volume fraction] 26.4 % Low 39-49 [facility] Comment on above: Performed By: #### C BCA, CMP ####[facility] ([id number])[address] [place] [address] Hemoglobin (Bld) [Mass/Vol] 8.6 g/dL Low 13.0-17.0 [facility] Comment on above: Performed By: #### C BCA, CMP ####[facility] ([id number])[address] [facility] [address] Lymphocytes (Bld) [#/Vol] 1.6 10*3/uL Normal 1.0-3.5 [facility] Comment on above: Performed By: #### C BCA, CMP ####[facility] ([id number])[address] [facility] [place] [address] Lymphocytes/100 WBC (Bld) 22.0 % Normal [facility] Comment on above: Performed By: #### C BCA, CMP ####[facility] ([id number])[address] [facility] [address] MCH (RBC) [Entitic mass] 30.4 pg Normal 27-34 [facility] Comment on above: Performed By: #### C BCA, CMP ####[facility] ([id number])[address] [facility] [address] MCHC (RBC) [Mass/Vol] 32.4 g/dL Normal 32-36 [facility] Comment on above: Performed By: #### C BCA, CMP ####[facility] ([id number])[address] [facility] [address] MCV (RBC) [Entitic vol] 94 fL Normal 80-100 [facility] Comment on above: Performed By: #### C BCA, CMP ####[facility] ([id number])[address] [facility] [address] Monocytes (Bld) [#/Vol] 0.4 10*3/uL Normal 0-0.9 [facility] Comment on above: Performed By: #### C BCA, CMP ####[facility] ([id number])[address] [place] [address] Monocytes/100 WBC (Bld) 6.0 % Normal [facility] Comment on above: Performed By: #### C BCA, CMP ####[facility] ([id number])[address] [place] [address] MYELOCYTE 2.0 % Normal [facility] Comment on above: Performed By: #### C BCA, CMP ####[facility] ([id number])[address] [place] [address] Neutrophils (Bld) [#/Vol] 4.4 10*3/uL Normal 1.5-6.6 [facility] Comment on above: Performed By: #### C BCA, CMP ####[facility] ([id number])5[address] [facility] [address] Platelet mean volume (Bld) [Entitic vol] 9.0 fL Normal 7-12 [facility] Comment on above: Performed By: #### C BCA, CMP ####[facility] ([id number])[address] [facility] [address] Platelets (Bld) [#/Vol] 268 10*3/uL Normal 150-450 [facility] Comment on above: Performed By: #### C BCA, CMP ####[facility] ([id number])[address] [facility] [address] RBC COUNT 2.82 X10E12/L Low 4.10-5.70 [facility] Comment on above: Performed By: #### C BCA, CMP ####[facility] ([id number])[address] [facility] [address] RBC morphology finding Nom (Bld) REVIEWED Normal [facility] Comment on above: Performed By: #### C BCA, CMP ####[facility] ([id number])[address] [facility] [address] SEG NEUTROPHIL 59.0 % Normal [facility] Comment on above: Performed By: #### C BCA, CMP ####[facility] ([id number])[address] [place] [address] WBC (Bld) [#/Vol] 7.3 10*3/uL Normal 4.0-11.0 [facility] Comment on above: Performed By: #### C BCA, CMP ####[facility] ([id number])[address] [place] [address] COMPREHENSIVE METABOLIC PANE Nick 05-24-2024 Albumin [Mass/Vol] 2.6 g/dL Low 3.2-5.3 [facility] Comment on above: Performed By: #### C BCA, CMP ####[facility] ([id number])[address] [place] [address] ALP [Catalytic activity/Vol] 151 U/L High 39-130 [facility] Comment on above: Performed By: #### C BCA, CMP ####[facility] ([id number])[address] [facility] [address] ALT [Catalytic activity/Vol] 8 U/L Normal 0-40 [facility] Comment on above: Performed By: #### C BCA, CMP ####[facility] ([id number])[address] [facility] [place] [address] Anion gap [Moles/Vol] 9 mmol/L Normal 5-15 [facility] Comment on above: Performed By: #### C BCA, CMP ####[facility] ([id number])[address] [facility] [address] AST [Catalytic activity/Vol] 19 U/L Normal 0-41 [facility] Comment on above: Performed By: #### C BCA, CMP ####[facility] ([id number])[address] [facility] [address] Bilirubin [Mass/Vol] 0.6 mg/dL Normal 0.3-1.2 [facility] Comment on above: Performed By: #### C BCA, CMP ####[facility] ([id number])[address] [facility] [address] Calcium [Mass/Vol] 8.2 mg/dL Low 8.5-10.5 [facility] Comment on above: Performed By: #### C BCA, CMP ####[facility] ([id number])[address] [facility] [address] Chloride [Moles/Vol] 96 mmol/L Low 98-109 [facility] Comment on above: Performed By: #### C BCA, CMP ####[facility] ([id number])5[address] [facility] [address] CO2 [Moles/Vol] 28 mmol/L Normal 22-32 [facility] Comment on above: Performed By: #### C BCA, CMP ####[facility] ([id number])[address] [facility] [address] Creatinine [Mass/Vol] 4.92 mg/dL High 0.60-1.30 [facility] Comment on above: Result Comment: METH OD TRACEABLE TO IDMS STANDARD Performed By: #### C BCA, CMP ####[facility] ([id number])[address] [place] [address] GFR/1.73 sq M.predicted among non-blacks MDRD (S/P/Bld) [Vol rate/Area] 13 mL/min/{1.73_m2} Low >59 [facility] Comment on above: Result Comment: Reported eGFR is based on the CKD-EPI 2020 equation that does not use a race coefficient. Performed By: #### C BCA, CMP ####[facility] ([id number])5[address] [facility] [address] Glucose [Mass/Vol] 148 mg/dL High 65-99 [facility] Comment on above: Performed By: #### C BCA, CMP ####[facility] ([id number])5[address] [facility] [address] Potassium [Moles/Vol] 4.3 mmol/L Normal 3.5-5.0 [facility] Comment on above: Performed By: #### C BCA, CMP ####[facility] ([id number])5200 [facility] [address] Protein [Mass/Vol] 6.0 g/dL Normal 6.0-8.0 [facility] Comment on above: Performed By: #### C BCA, CMP ####[facility] ([id number])5200 [place] [address] Sodium [Moles/Vol] 133 mmol/L Low 134-146 [facility] Comment on above: Performed By: #### C BCA, CMP ####[facility] ([id number])5200 [place] [address] Urea nitrogen [Mass/Vol] 46 mg/dL High 5-23 [facility] Comment on above: Performed By: #### C BCA, CMP ####[facility] ([id number])5200 [place] [address] Glucose Glucometer (BldC) [M ass/Vol]on 05-24-2024 Glucose [Mass/Vol] 250 mg/dL High 65-99 [facility] Glucose [Mass/Vol] 171 mg/dL High 65-99 [facility] Glucose [Mass/Vol] 249 mg/dL High 65-99 [facility] Glucose [Mass/Vol] 184 mg/dL High 65-99 [facility] BF CELL CT AND DIFFon 2023 BODY FLUID COMMENT Synovial Fluid Refer ence Range Normal [facility] Comment on above: Result Comment: WBC/ TNC: 0-150/uL Neutrophils: <25% Performed By: #### 6 32-0 #### [facility] ([id number]) [address] [place] [address] FLUID CLARITY TURBID Normal [facility] Comment on above: Performed By: #### 6 32-0 #### [facility] ([id number]) [address], [address] [place] [address] FLUID COLOR BENNY Normal [facility] Comment on above: Performed By: #### 6 32-0 #### [facility] ([id number]) [address] [place] [address] FLUID LYMPHOCYTE 17 % Normal [facility] Comment on above: Performed By: #### 6 32-0 #### [facility] ([id number]) [address], [address] [place] [address] FLUID NEUTROPHILS 55 % Normal [facility] Comment on above: Performed By: #### 6 32-0 #### [facility] ([id number]) [address], [address] [place] [address] [place] [address] /uL Normal [facility] Comment on above: Performed By: #### 6 32-0 #### [facility] ([id number]) [address], [address] [place] [address] FLUID SPECIMEN TYPE FLUID Normal [facility] Comment on above: Result Comment: RIGH T KNEE Performed By: #### 6 32-0 #### [facility] ([id number]) [address] [place] [address] MACROPHAGES 28 % Normal [facility] Comment on above: Performed By: #### 6 32-0 #### [facility] ([id number]) [address], [address] [place] [address] 397 /uL Normal [facility] Comment on above: Performed By: #### 6 32-0 #### [facility] ([id number]) [address] [place] [address] CBC AND AUTO DIFFon 05-23-20 24 ABSOLUTE BASOPHIL 0.1 X10E9/L Normal 0.0-0.2 [facility] Comment on above: Performed By: #### 6 32-0 #### [facility] ([id number]) [address], [address] [place] [address] ABSOLUTE NEUTROPHIL 4.4 X10E9/L Normal 1.5-6.6 [facility] Comment on above: Performed By: #### 6 32-0 #### [facility] ([id number]) [address] [place] [address] Basophils/100 WBC (Bld) 1.1 % Normal [facility] Comment on above: Performed By: #### 6 32-0 #### [facility] ([id number]) [address] [place] [address] Eosinophils (Bld) [#/Vol] 0.5 10*3/uL High 0.0-0.4 [facility] Comment on above: Performed By: #### 6 32-0 #### [facility] ([id number]) [address] [place] [address] Eosinophils/100 WBC (Bld) 7.0 % Normal [facility] Comment on above: Performed By: #### 6 32-0 #### [facility] ([id number]) [address] [place] [address] Erythrocyte distribution width (RBC) [Ratio] 19.2 % High 11.5-15.0 [facility] Comment on above: Performed By: #### 6 32-0 #### [facility] ([id number]) [address], [address] [place] [address] Hematocrit (Bld) [Volume fraction] 26.1 % Low 39-49 [facility] Comment on above: Performed By: #### 6 32-0 #### [facility] ([id number]) [address] [place] [address] Hemoglobin (Bld) [Mass/Vol] 8.5 g/dL Low 13.0-17.0 [facility] Comment on above: Performed By: #### 6 32-0 #### [facility] ([id number]) [address], [address] [place] [address] Lymphocytes (Bld) [#/Vol] 1.1 10*3/uL Normal 1.0-3.5 [facility] Comment on above: Performed By: #### 6 32-0 #### [facility] ([id number]) [address], [address] [place] [address] Lymphocytes/100 WBC (Bld) 16.4 % Normal [facility] Comment on above: Performed By: #### 6 32-0 #### [facility] ([id number]) [address], [address] [place] [address] MCH (RBC) [Entitic mass] 30.7 pg Normal 27-34 [facility] Comment on above: Performed By: #### 6 32-0 #### [facility] ([id number]) [address], [address] [place] [address] MCHC (RBC) [Mass/Vol] 32.6 g/dL Normal 32-36 [facility] Comment on above: Performed By: #### 6 32-0 #### [facility] ([id number]) [address], [address] [place] [address] MCV (RBC) [Entitic vol] 94 fL Normal 80-100 [facility] Comment on above: Performed By: #### 6 32-0 #### [facility] ([id number]) [address], [address] [place] [address] Monocytes (Bld) [#/Vol] 0.5 10*3/uL Normal 0-0.9 [facility] Comment on above: Performed By: #### 6 32-0 #### [facility] ([id number]) [address], [address] [place] [address] Monocytes/100 WBC (Bld) 7.5 % Normal [facility] Comment on above: Performed By: #### 6 32-0 #### [facility] ([id number]) [address], [address] [place] [address] Neutrophils/100 WBC (Bld) 68.0 % Normal [facility] Comment on above: Performed By: #### 6 32-0 #### [facility] ([id number]) [address], [address] [place] [address] Platelet mean volume (Bld) [Entitic vol] 9.0 fL Normal 7-12 [facility] Comment on above: Performed By: #### 6 32-0 #### [facility] ([id number]) [address], [facility] [address] [place] [address] Platelets (Bld) [#/Vol] 297 10*3/uL Normal 150-450 [facility] Comment on above: Performed By: #### 6 32-0 #### [facility] ([id number]) [address], [facility] [address] [place] [address] POLYCHROMASIA 1+ Abnormal NONE [facility] Comment on above: Performed By: #### 6 32-0 #### [facility] ([id number]) [address], [address] [place] [address] RBC COUNT 2.77 X10E12/L Low 4.10-5.70 [facility] Comment on above: Performed By: #### 6 32-0 #### [facility] ([id number]) [address], [address] [place] [address] WBC (Bld) [#/Vol] 6.5 10*3/uL Normal 4.0-11.0 [facility] Comment on above: Performed By: #### 6 32-0 #### [facility] ([id number]) [address], [address] [place] [address] COMPREHENSIVE METABOLIC PANE Nick 05-23-2024 Albumin [Mass/Vol] 2.7 g/dL Low 3.2-5.3 [facility] Comment on above: Performed By: #### 6 32-0 #### [facility] ([id number]) [address], [address] [place] [address] ALP [Catalytic activity/Vol] 151 U/L High 39-130 [facility] Comment on above: Performed By: #### 6 32-0 #### [facility] ([id number]) [address], [address] [place] [address] ALT [Catalytic activity/Vol] 6 U/L Normal 0-40 [facility] Comment on above: Performed By: #### 6 32-0 #### [facility] ([id number]) [address], [address] [place] [address] Anion gap [Moles/Vol] 10 mmol/L Normal 5-15 [facility] Comment on above: Performed By: #### 6 32-0 #### [facility] ([id number]) [address], [address] [place] [address] AST [Catalytic activity/Vol] 20 U/L Normal 0-41 [facility] Comment on above: Performed By: #### 6 32-0 #### [facility] ([id number]) [address], [address] [place] [address] Bilirubin [Mass/Vol] 0.6 mg/dL Normal 0.3-1.2 [facility] Comment on above: Performed By: #### 6 32-0 #### [facility] ([id number]) [address], [address] [place] [address] Calcium [Mass/Vol] 8.2 mg/dL Low 8.5-10.5 [facility] Comment on above: Performed By: #### 6 32-0 #### [facility] ([id number]) [address], [address] [place] [address] Chloride [Moles/Vol] 97 mmol/L Low 98-109 [facility] Comment on above: Performed By: #### 6 32-0 #### [facility] [facility] ([id number]) [address], [address] [place] [address] CO2 [Moles/Vol] 28 mmol/L Normal 22-32 [facility] Comment on above: Performed By: #### 6 32-0 #### [facility] ([id number]) [address], [address] [place] [address] Creatinine [Mass/Vol] 3.87 mg/dL High 0.60-1.30 [facility] Comment on above: Result Comment: METH OD TRACEABLE TO IDMS STANDARD Performed By: #### 6 32-0 #### [facility] ([id number]) [address], [address] [place] [address] GFR/1.73 sq M.predicted among non-blacks MDRD (S/P/Bld) [Vol rate/Area] 17 mL/min/{1.73_m2} Low >59 [facility] Comment on above: Result Comment: Reported eGFR is based on the CKD-EPI 1 equation that does not use a race coefficient. Performed By: #### 6 32-0 #### [facility] ([id number]) [address], [address] [place] [address] Glucose [Mass/Vol] 109 mg/dL High 65-99 [facility] Comment on above: Performed By: #### 6 32-0 #### [facility] ([id number]) [address], [address] [place] [address] Potassium [Moles/Vol] 4.3 mmol/L Normal 3.5-5.0 [facility] Comment on above: Performed By: #### 6 32-0 #### [facility] ([id number]) [address], [address] [place] [address] Protein [Mass/Vol] 6.0 g/dL Normal 6.0-8.0 [facility] Comment on above: Performed By: #### 6 32-0 #### [facility] ([id number]) [address], [address] [place] [address] Sodium [Moles/Vol] 135 mmol/L Normal 134-146 [facility] Comment on above: Performed By: #### 6 32-0 #### [facility] ([id number]) [address], [address] [place] [address] Urea nitrogen [Mass/Vol] 33 mg/dL High 5-23 [facility] Comment on above: Performed By: #### 6 32-0 #### [facility] ([id number]) [address], [address] [place] [address] FLUID CULTUREon 05-23-2024 Bacteria identified Aer cx Nom (Body fld) GRAM STAIN WHITE BLOOD CELLS PRESENT NO ORGANISMS SEEN ON CONCENTRATED SMEAR CULTURE RESULTS NO GROWTH 5 DAYS Normal [facility] Comment on above: Performed By: #### 6 32-0 #### [facility] ([id number]) [address], [address] [place] [address] FUNGAL CULTUREon 05-23-2024 Fungus identified Cx Nom (Unsp spec) FUNGAL SMEAR NO FUNGAL ELEMENTS SEEN ON CONCENTRATED SMEAR CULTURE RESULTS NO FUNGUS ISOLATED AFTER 4 WEEKS Normal [facility] Comment on above: Performed By: #### 5 80-1 ####[facility] ([id number])[address], [address] [place] [address] Glucose Glucometer (BldC) [M ass/Vol]on 05-23-2024 Glucose [Mass/Vol] 214 mg/dL High 65-99 [facility] Glucose [Mass/Vol] 198 mg/dL High 65-99 [facility] Glucose [Mass/Vol] 170 mg/dL High 65-99 [facility] Glucose [Mass/Vol] 139 mg/dL High 65-99 [facility] Metanephrine.free and Normet anephrine.free panel [Moles/Vol]on 11-09-2024 Metanephrine, Free <0.20 Normal <0.50 [facility] Comment on above: Result Comment: NOTE ADDITIONAL INFORMATION This test was developed and its performance characteristics determined by [facility] in a manner consistent with CLIA requirements. This test has not been cleared or approved by the U.S. Food and Drug Administration. Test Performed by: [facility] [address] [place] [address] Territory Sales Executive: Fox Snow Ph.D.; CLIA# [id number] Performed By: #### 6 32-0 #### [facility] ([id number]) [address] [facility], [address] [place] [address] Normetanephrine, Free 0.26 nmol/L Normal <0.90 [facility] Comment on above: Performed By: #### 6 32-0 #### [facility] ([id number]) [address] [facility] [place] [address] Aldosterone [Mass/Vol]on ALDOSTERONE 15.9 ng/dL Normal [facility] Comment on above: Result Comment: NOTE INTERPRETIVE INFORMATION: Aldosterone, Serum [...] reference intervals for this test in the [facility] Test Directory ([employer]). Performed By: [facility] [address] [place] [address] Apprentice Instrument Technician: Wenceslao Massey MD, PhD CLIA Number: [id number] Performed By: #### 1 763-2 ####[facility] ([id number])[address] [place] [address] CBC AND AUTO DIFFon 05-22-20 24 ABSOLUTE BASOPHIL 0.1 X10E9/L Normal 0.0-0.2 [facility] Comment on above: Performed By: #### 6 32-0 #### [facility] ([id number]) [address] [place] [address] ABSOLUTE NEUTROPHIL 6.1 X10E9/L Normal 1.5-6.6 [facility] Comment on above: Performed By: #### 6 32-0 #### [facility] ([id number]) [address] [address] [place] [address] Basophils/100 WBC (Bld) 0.8 % Normal [facility] Comment on above: Performed By: #### 6 32-0 #### [facility] ([id number]) [address] [address] [place] [address] Eosinophils (Bld) [#/Vol] 0.5 10*3/uL High 0.0-0.4 [facility] Comment on above: Performed By: #### 6 32-0 #### [facility] ([id number]) [address] [place] [address] Eosinophils/100 WBC (Bld) 6.3 % Normal [facility] Comment on above: Performed By: #### 6 32-0 #### [facility] ([id number]) [address] [place] [address] Erythrocyte distribution width (RBC) [Ratio] 19.5 % High 11.5-15.0 [facility] Comment on above: Performed By: #### 6 32-0 #### [facility] ([id number]) [address], [address] [place] [address] Hematocrit (Bld) [Volume fraction] 22.3 % Low 39-49 [facility] Comment on above: Performed By: #### 6 32-0 #### [facility] ([id number]) [address] [place] [address] Hemoglobin (Bld) [Mass/Vol] 7.3 g/dL Low 13.0-17.0 [facility] Comment on above: Performed By: #### 6 32-0 #### [facility] ([id number]) [address], [facility] [address] [place] [address] Lymphocytes (Bld) [#/Vol] 1.0 10*3/uL Normal 1.0-3.5 [facility] Comment on above: Performed By: #### 6 32-0 #### [facility] ([id number]) [address] [place] [address] Lymphocytes/100 WBC (Bld) 12.1 % Normal [facility] Comment on above: Performed By: #### 6 32-0 #### [facility] ([id number]) [address] [place] [address] MCH (RBC) [Entitic mass] 30.5 pg Normal 27-34 [facility] Comment on above: Performed By: #### 6 32-0 #### [facility] ([id number]) [address] [place] [address] MCHC (RBC) [Mass/Vol] 32.6 g/dL Normal 32-36 [facility] Comment on above: Performed By: #### 6 32-0 #### [facility] ([id number]) [address], [address] [place] [address] MCV (RBC) [Entitic vol] 93 fL Normal 80-100 [facility] Comment on above: Performed By: #### 6 32-0 #### [facility] ([id number]) [address] [place] [address] Monocytes (Bld) [#/Vol] 0.7 10*3/uL Normal 0-0.9 [facility] Comment on above: Performed By: #### 6 32-0 #### [facility] ([id number]) [address] [place] [address] Monocytes/100 WBC (Bld) 7.8 % Normal [facility] Comment on above: Performed By: #### 6 32-0 #### [facility] ([id number]) [address] [place] [address] Neutrophils/100 WBC (Bld) 73.0 % Normal [facility] Comment on above: Performed By: #### 6 32-0 #### [facility] ([id number]) [address] [place] [address] Platelet mean volume (Bld) [Entitic vol] 9.1 fL Normal 7-12 [facility] Comment on above: Performed By: #### 6 32-0 #### [facility] ([id number]) [address] [place] [address] Platelets (Bld) [#/Vol] 267 10*3/uL Normal 150-450 [facility] Comment on above: Performed By: #### 6 32-0 #### [facility] ([id number]) [address] [place] [address] RBC COUNT 2.39 X10E12/L Low 4.10-5.70 [facility] Comment on above: Performed By: #### 6 32-0 #### [facility] ([id number]) [address] [place] [address] WBC (Bld) [#/Vol] 8.4 10*3/uL Normal 4.0-11.0 [facility] Comment on above: Performed By: #### 6 32-0 #### [facility] ([id number]) [address] [place] [address] COMPREHENSIVE METABOLIC PANE Nick 05-22-2024 Albumin [Mass/Vol] 2.4 g/dL Low 3.2-5.3 [facility] Comment on above: Performed By: #### 6 32-0 #### [facility] ([id number]) [address] [place] [address] ALP [Catalytic activity/Vol] 132 U/L High 39-130 [facility] Comment on above: Performed By: #### 6 32-0 #### [facility] ([id number]) [address] [place] [address] ALT [Catalytic activity/Vol] 6 U/L Normal 0-40 [facility] Comment on above: Performed By: #### 6 32-0 #### [facility] ([id number]) [address] [place] [address] Anion gap [Moles/Vol] 10 mmol/L Normal 5-15 [facility] Comment on above: Performed By: #### 6 32-0 #### [facility] ([id number]) [address] [place] [address] AST [Catalytic activity/Vol] 14 U/L Normal 0-41 [facility] Comment on above: Performed By: #### 6 32-0 #### [facility] ([id number]) [address] [place] [address] Bilirubin [Mass/Vol] 0.5 mg/dL Normal 0.3-1.2 [facility] Comment on above: Performed By: #### 6 32-0 #### [facility] ([id number]) [address] [place] [address] Calcium [Mass/Vol] 8.1 mg/dL Low 8.5-10.5 [facility] Comment on above: Performed By: #### 6 32-0 #### [facility] ([id number]) [address] [place] [address] Chloride [Moles/Vol] 95 mmol/L Low 98-109 [facility] Comment on above: Performed By: #### 6 32-0 #### [facility] ([id number]) [address] [place] [address] CO2 [Moles/Vol] 28 mmol/L Normal 22-32 [facility] Comment on above: Performed By: #### 6 32-0 #### [facility] ([id number]) [address] [place] [address] Creatinine [Mass/Vol] 5.13 mg/dL High 0.60-1.30 [facility] Comment on above: Result Comment: METH OD TRACEABLE TO IDMS STANDARD Performed By: #### 6 32-0 #### [facility] ([id number]) [address] [place] [address] GFR/1.73 sq M.predicted among non-blacks MDRD (S/P/Bld) [Vol rate/Area] 12 mL/min/{1.73_m2} Low >59 [facility] Comment on above: Result Comment: Reported eGFR is based on the CKD-EPI 2020 equation that does not use a race coefficient. Performed By: #### 6 32-0 #### [facility] ([id number]) [address] [place] [address] Glucose [Mass/Vol] 133 mg/dL High 65-99 [facility] Comment on above: Performed By: #### 6 32-0 #### [facility] ([id number]) [address] [place] [address] Potassium [Moles/Vol] 4.3 mmol/L Normal 3.5-5.0 [facility] Comment on above: Performed By: #### 6 32-0 #### [facility] ([id number]) [address] [place] [address] Protein [Mass/Vol] 5.5 g/dL Low 6.0-8.0 [facility] Comment on above: Performed By: #### 6 32-0 #### [facility] ([id number]) [address] [place] [address] Sodium [Moles/Vol] 133 mmol/L Low 134-146 [facility] Comment on above: Performed By: #### 6 32-0 #### [facility] ([id number]) [address] [place] [address] Urea nitrogen [Mass/Vol] 47 mg/dL High 5-23 [facility] Comment on above: Performed By: #### 6 32-0 #### [facility] ([id number]) [address] [place] [address] CT ABDOMEN AND PELVIS W CONT on 05-22-2024 CT ABDOMEN AND PELVIS W CONT CT ABDOMEN AND PELVIS W CONT History: [...] Franklin Meza MD on 05/22/2024 11:15 AM Normal [facility] CT FEMUR RT W CONTon 024 CT FEMUR RT W CONT CT FEMUR RT W CONT Clinical History [...] Skip Triana MD on 05/22/2024 1:14 PM Normal [facility] CT TIBFIB RT W CONTon 2023 CT TIBFIB RT W CONT CT TIBFIB RT W CONT Clinical History [...] Skip Triana MD on 05/22/2024 1:40 PM Normal [facility] Catecholamines Fractionated, Plasmaon 05-22-2024 Catecholamine Interpretation SEE NOTE Normal [facility] Comment on above: Result Comment: NOTE INTERPRETIVE INFORMATION: Catecholamines Panel, [...] reference intervals for this test in the [facility] Test Directory ([employer]). This test was developed and its performance characteristics determined by [facility]. It has not been cleared or approved by the [place] Food and Drug Administration. This test was performed in a CLIA certified laboratory and is intended for clinical purposes. Performed By: [facility] [address] [place] [address] Apprentice Instrument Technician: Wenceslao Massey MD, PhD CLIA Number: [id number] Performed By: #### C LENO, CMP #### [facility] ([id number]) [facility] [place] [place] [address] Dopamine, Plasma 1131 pmol/L High <=240 [facility] Comment on above: Result Comment: NOTE INTERPRETIVE INFORMATION: Dopamine Seated (15 min) less than or equal to 240 pmol/L Supine (30 min) less than or equal to 240 pmol/L Performed By: #### C BCA, CMP #### [facility] ([id number]) [address] [place] [address] Epinephrine, Plasma <55 Normal <=330 [facility] Comment on above: Result Comment: NOTE INTERPRETIVE INFORMATION:Epinephrine Seated (15 min) less than or equal to 330 pmol/L Supine (30 min) less than or equal to 265 pmol/L Performed By: #### C BCA, CMP #### [facility] ([id number]) [address] [place] [address] Norepinephrine, Plasma 5775 pmol/L High 9589-7151 [facility] Comment on above: Result Comment: NOTE INTERPRETIVE INFORMATION: Norepinephrine Seated (15 min) 1050 - 4800 pmol/L Supine (30 min) 680 - 3100 pmol/L Performed By: #### C BCA, CMP #### [facility] ([id number]) [facility] [place] [address] Glucose Glucometer (BldC) [M ass/Vol]on 05-22-2024 Glucose [Mass/Vol] 169 mg/dL High 65-99 [facility] Glucose [Mass/Vol] 108 mg/dL High 65-99 [facility] Glucose [Mass/Vol] 145 mg/dL High 65-99 [facility] PHOSPHORUSon 05-22-2024 Phosphate [Mass/Vol] 3.7 mg/dL Normal 2.4-4.9 [facility] Comment on above: Performed By: #### 6 32-0 #### [facility] ([id number]) [address], [address] [place] [address] RENIN ACTIVITYon 05-22-2024 RENIN ACTIVITY <0.1 Normal [facility] Comment on above: Result Comment: NOTE INTERPRETIVE INFORMATION: Renin Activity Adult, Normal sodium diet: Supine ................. 0.2-1.6 ng/mL/hr Upright ................ 0.5-4.0 ng/mL/hr Children, Normal sodium diet, Supine: [place] (1-7 days) ..... 2.0-35.0 ng/mL/hr Cord blood [...] developed and its performance characteristics determined by [facility]. It has not been cleared or approved by the US Food and Drug Administration. This test was performed in a CLIA certified laboratory and is intended for clinical purposes. Performed By: [facility] [address] [place] [address] Apprentice Instrument Technician: Wenceslao Massey MD, PhD CLIA Number: [id number] Performed By: #### C LENO, [facility] #### [facility] ([id number]) [address] [place] [address] BLOOD CULTUREon 05-21-2024 Bacteria identified Aer cx Nom (Bld) CULTURE RESULTS NO GROWTH 5 DAYS Normal [facility] Bacteria identified Aer cx Nom (Bld) CULTURE RESULTS NO GROWTH 5 DAYS Normal [facility] CBC AND AUTO DIFFon 05-21-20 24 ABSOLUTE BASOPHIL 0.1 X10E9/L Normal 0.0-0.2 [facility] Comment on above: Performed By: #### C BCA, CMP #### [facility] ([id number]) [facility] [place] [place] [address] ABSOLUTE NEUTROPHIL 10.1 X10E9/L High 1.5-6.6 [facility] Comment on above: Performed By: #### C BCA, CMP #### [facility] ([id number]) [facility] [place] [place] [address] Basophils/100 WBC (Bld) 0.6 % Normal [facility] Comment on above: Performed By: #### C BCA, CMP #### [facility] ([id number]) [facility] [place] [place] [address] Eosinophils (Bld) [#/Vol] 0.4 10*3/uL Normal 0.0-0.4 [facility] Comment on above: Performed By: #### C BCA, CMP #### [facility] ([id number]) [address] [place] [address] Eosinophils/100 WBC (Bld) 3.6 % Normal [facility] Comment on above: Performed By: #### C BCA, CMP #### [facility] ([id number]) [address] [place] [address] Erythrocyte distribution width (RBC) [Ratio] 19.1 % High 11.5-15.0 [facility] Comment on above: Performed By: #### C BCA, CMP #### [facility] ([id number]) [facility] [place] [address] Hematocrit (Bld) [Volume fraction] 23.1 % Low 39-49 [facility] Comment on above: Performed By: #### C LENO, CMP #### [facility] ([id number]) [facility] [place] [place] [address] Hemoglobin (Bld) [Mass/Vol] 7.5 g/dL Low 13.0-17.0 [facility] Comment on above: Performed By: #### C BCA, CMP #### [facility] ([id number]) [address] [place] [address] Lymphocytes (Bld) [#/Vol] 0.8 10*3/uL Low 1.0-3.5 [facility] Comment on above: Performed By: #### C BCA, CMP #### [facility] ([id number]) [address] [place] [address] Lymphocytes/100 WBC (Bld) 6.9 % Normal [facility] Comment on above: Performed By: #### C BCA, CMP #### [facility] ([id number]) [address] [place] [address] MCH (RBC) [Entitic mass] 30.0 pg Normal 27-34 [facility] Comment on above: Performed By: #### C BCA, CMP #### [facility] ([id number]) [address] [place] [address] MCHC (RBC) [Mass/Vol] 32.4 g/dL Normal 32-36 [facility] Comment on above: Performed By: #### C BCA, CMP #### [facility] ([id number]) [facility] [place] [place] [address] MCV (RBC) [Entitic vol] 93 fL Normal 80-100 [facility] Comment on above: Performed By: #### C BCA, CMP #### [facility] ([id number]) [address] [place] [address] Monocytes (Bld) [#/Vol] 0.6 10*3/uL Normal 0-0.9 [facility] Comment on above: Performed By: #### C BCA, CMP #### [facility] ([id number]) [address] [place] [address] Monocytes/100 WBC (Bld) 5.2 % Normal [facility] Comment on above: Performed By: #### C BCA, CMP #### [facility] ([id number]) [address] [place] [address] Neutrophils/100 WBC (Bld) 83.7 % Normal [facility] Comment on above: Performed By: #### C BCA, CMP #### [facility] ([id number]) [address] [place] [address] Platelet mean volume (Bld) [Entitic vol] 9.3 fL Normal 7-12 [facility] Comment on above: Performed By: #### C BCA, CMP #### [facility] ([id number]) [facility] [place] [place] [address] Platelets (Bld) [#/Vol] 268 10*3/uL Normal 150-450 [facility] Comment on above: Performed By: #### C BCA, CMP #### [facility] ([id number]) [address] [place] [address] RBC COUNT 2.49 X10E12/L Low 4.10-5.70 [facility] Comment on above: Performed By: #### C BCA, CMP #### [facility] ([id number]) [facility] [place] [address] WBC (Bld) [#/Vol] 12.1 10*3/uL High 4.0-11.0 [facility] Comment on above: Performed By: #### C BCA, CMP #### [facility] ([id number]) [address] [place] [address] COMPREHENSIVE METABOLIC PANE Nick 05-21-2024 Albumin [Mass/Vol] 2.6 g/dL Low 3.2-5.3 [facility] Comment on above: Performed By: #### C BCA, CMP #### [facility] ([id number]) [address] [facility] [place] [address] ALP [Catalytic activity/Vol] 141 U/L High 39-130 [facility] Comment on above: Performed By: #### C BCA, CMP #### [facility] ([id number]) [address] [facility] [place] [address] ALT [Catalytic activity/Vol] 8 U/L Normal 0-40 [facility] Comment on above: Performed By: #### C BCA, CMP #### [facility] ([id number]) [address] [facility] [place] [address] Anion gap [Moles/Vol] 9 mmol/L Normal 5-15 [facility] Comment on above: Performed By: #### C BCA, CMP #### [facility] ([id number]) [facility] [place] [address] AST [Catalytic activity/Vol] 19 U/L Normal 0-41 [facility] Comment on above: Performed By: #### C BCA, CMP #### [facility] ([id number]) [address] [place] [address] Bilirubin [Mass/Vol] 0.7 mg/dL Normal 0.3-1.2 [facility] Comment on above: Performed By: #### C BCA, CMP #### [facility] ([id number]) [address] [place] [address] Calcium [Mass/Vol] 8.5 mg/dL Normal 8.5-10.5 [facility] Comment on above: Performed By: #### C BCA, CMP #### [facility] ([id number]) [facility] [place] [address] Chloride [Moles/Vol] 96 mmol/L Low 98-109 [facility] Comment on above: Performed By: #### C BCA, CMP #### [facility] ([id number]) [address] [place] [address] CO2 [Moles/Vol] 29 mmol/L Normal 22-32 [facility] Comment on above: Performed By: #### C BCA, CMP #### [facility] ([id number]) [address] [place] [address] Creatinine [Mass/Vol] 4.05 mg/dL High 0.60-1.30 [facility] Comment on above: Result Comment: METH OD TRACEABLE TO IDMS STANDARD Performed By: #### C BCA, CMP #### [facility] ([id number]) [facility] [place] [address] GFR/1.73 sq M.predicted among non-blacks MDRD (S/P/Bld) [Vol rate/Area] 16 mL/min/{1.73_m2} Low >59 [facility] Comment on above: Result Comment: Reported eGFR is based on the CKD-EPI 2020 equation that does not use a race coefficient. Performed By: #### C BCA, CMP #### [facility] ([id number]) [facility] [place] [place] [address] Glucose [Mass/Vol] 91 mg/dL Normal 65-99 [facility] Comment on above: Performed By: #### C BCA, CMP #### [facility] ([id number]) [facility] [place] [address] Potassium [Moles/Vol] 4.3 mmol/L Normal 3.5-5.0 [facility] Comment on above: Performed By: #### C BCA, CMP #### [facility] ([id number]) [facility] [place] [address] Protein [Mass/Vol] 5.9 g/dL Low 6.0-8.0 [facility] Comment on above: Performed By: #### C BCA, CMP #### [facility] ([id number]) [address] [place] [address] Sodium [Moles/Vol] 134 mmol/L Normal 134-146 [facility] Comment on above: Performed By: #### C LENO, CMP #### [facility] ([id number]) [address] [place] [address] Urea nitrogen [Mass/Vol] 35 mg/dL High 5-23 [facility] Comment on above: Performed By: #### C LENO, CMP #### [facility] ([id number]) [address] [place] [address] Glucose Glucometer (BldC) [M ass/Vol]on 05-21-2024 Glucose [Mass/Vol] 139 mg/dL High 65-99 [facility] Glucose [Mass/Vol] 130 mg/dL High 65-99 [facility] Glucose [Mass/Vol] 118 mg/dL High 65-99 [facility] Glucose [Mass/Vol] 99 mg/dL Normal 65-99 [facility] BLOOD CULTUREon 05-20-2024 Bacteria identified Aer cx Nom (Bld) CULTURE RESULTS ENTEROCOCCUS FAECALIS Enterococcus faecalis detected by PCR. No resistance genes detected by PCR. [ S = SUSCEPTIBLE R = RESISTANT I = INTERMEDIATE S-DO = Susceptible-dose dependent NS = Non-suscceptible NO = No Interpretation ] Organism: ENTEROCOCCUS FAECALIS Antibiotic Interpretation SEAN Status AMPICILLIN S <=2 F VANCOMYCIN S 1 F GENTAMICIN HIGH LEVEL S F STREPTOMYCIN HIGH LEVEL S F Susceptible [facility] Comment on above: Performed By: #### 1 7928-3 #### [facility] ([id number]) [address] [facility] [place] [address] Bacteria identified Aer cx Nom (Bld) SPECIMEN NOTES LAC CULTURE RESULTS ENTEROCOCCUS FAECALIS FOR SUSCEPTIBILITY, SEE PREVIOUS REPORT. Normal [facility] Comment on above: Performed By: #### 1 7928-3 #### [facility] ([id number]) [address] [place] [address], [place] [address] [facility] ([id number]) [address] [facility] [place] [address] CBC AND AUTO DIFFon 05-20-20 24 ABSOLUTE BASOPHIL 0.1 X10E9/L Normal 0.0-0.2 [facility] Comment on above: Performed By: #### 2 157-6, CMP, CBCA, 67774-8 #### [facility] ([id number]) [address] [place] [address] ABSOLUTE NEUTROPHIL 15.3 X10E9/L High 1.5-6.6 [facility] Comment on above: Performed By: #### 2 157-6, CMP, CBCA, 46138-2 #### [facility] ([id number]) [address] [place] [address] Basophils/100 WBC (Bld) 0.3 % Normal [facility] Comment on above: Performed By: #### 2 157-6, CMP, CBCA, 94161-0 #### [facility] ([id number]) [address] [place] [address] Eosinophils (Bld) [#/Vol] 0.1 10*3/uL Normal 0.0-0.4 [facility] Comment on above: Performed By: #### 2 157-6, CMP, CBCA, 16402-0 #### [facility] ([id number]) [address] [place] [address] Eosinophils/100 WBC (Bld) 0.7 % Normal [facility] Comment on above: Performed By: #### 2 157-6, CMP, CBCA, 76575-4 #### [facility] ([id number]) [address] [place] [address] Erythrocyte distribution width (RBC) [Ratio] 19.3 % High 11.5-15.0 [facility] Comment on above: Performed By: #### 2 157-6, CMP, CBCA, 36171-8 #### [facility] ([id number]) [address] [place] [address] Hematocrit (Bld) [Volume fraction] 22.6 % Low 39-49 [facility] Comment on above: Performed By: #### 2 157-6, CMP, CBCA, 19985-6 #### [facility] ([id number]) [address] [place] [address] Hemoglobin (Bld) [Mass/Vol] 7.4 g/dL Low 13.0-17.0 [facility] Comment on above: Performed By: #### 2 157-6, CMP, CBCA, 71224-5 #### [facility] ([id number]) [address] [place] [address] Lymphocytes (Bld) [#/Vol] 0.5 10*3/uL Low 1.0-3.5 [facility] Comment on above: Performed By: #### 2 157-6, CMP, CBCA, 85711-3 #### [facility] ([id number]) [address] [place] [address] Lymphocytes/100 WBC (Bld) 2.8 % Normal [facility] Comment on above: Performed By: #### 2 157-6, CMP, CBCA, 15562-7 #### [facility] ([id number]) [address] [place] [address] MCH (RBC) [Entitic mass] 30.3 pg Normal 27-34 [facility] Comment on above: Performed By: #### 2 157-6, CMP, CBCA, 76618-9 #### [facility] ([id number]) [address] [place] [address] MCHC (RBC) [Mass/Vol] 32.8 g/dL Normal 32-36 [facility] Comment on above: Performed By: #### 2 157-6, CMP, CBCA, 74613-4 #### [facility] ([id number]) [address] [place] [address] MCV (RBC) [Entitic vol] 93 fL Normal 80-100 [facility] Comment on above: Performed By: #### 2 157-6, CMP, CBCA, 79388-9 #### [facility] ([id number]) [address] [place] [address] Monocytes (Bld) [#/Vol] 1.0 10*3/uL High 0-0.9 [facility] Comment on above: Performed By: #### 2 157-6, CMP, CBCA, 48774-0 #### [facility] ([id number]) [address] [place] [address] Monocytes/100 WBC (Bld) 5.9 % Normal [facility] Comment on above: Performed By: #### 2 157-6, CMP, CBCA, 77468-5 #### [facility] ([id number]) [address] [place] [address]10 Neutrophils/100 WBC (Bld) 90.3 % Normal [facility] Comment on above: Performed By: #### 2 157-6, CMP, CBCA, 43521-1 #### [facility] ([id number]) [address] [place] [address] Platelet mean volume (Bld) [Entitic vol] 9.5 fL Normal 7-12 [facility] Comment on above: Performed By: #### 2 157-6, CMP, CBCA, 27865-6 #### [facility] ([id number]) [address] [place] [address] Platelets (Bld) [#/Vol] 279 10*3/uL Normal 150-450 [facility] Comment on above: Performed By: #### 2 157-6, CMP, CBCA, 20181-7 #### [facility] ([id number]) [address] [place] [address] RBC COUNT 2.45 X10E12/L Low 4.10-5.70 [facility] Comment on above: Performed By: #### 2 157-6, CMP, CBCA, 64407-8 #### [facility] ([id number]) [address] [place] [address] WBC (Bld) [#/Vol] 16.9 10*3/uL High 4.0-11.0 [facility] Comment on above: Performed By: #### 2 157-6, CMP, CBCA, 63431-4 #### [facility] ([id number]) [address] [place] [address] CK [Catalytic activity/Vol]o n 05-20-2024 CPK 22 U/L Low 24-195 [facility] Comment on above: Performed By: #### 2 157-6, CMP, CBCA, 93181-9 #### [facility] ([id number]) [address] [place] [address] COMPREHENSIVE METABOLIC PANE Nick 05-20-2024 Albumin [Mass/Vol] 2.3 g/dL Low 3.2-5.3 [facility] Comment on above: Performed By: #### 2 157-6, CMP, CBCA, 66866-0 #### [facility] ([id number]) [address] [place] [address] ALP [Catalytic activity/Vol] 145 U/L High 39-130 [facility] Comment on above: Performed By: #### 2 157-6, CMP, CBCA, 91336-1 #### [facility] ([id number]) [address] [place] [address] ALT [Catalytic activity/Vol] 15 U/L Normal 0-40 [facility] Comment on above: Performed By: #### 2 157-6, CMP, CBCA, 57004-6 #### [facility] ([id number]) [address] [place] [address]14 Anion gap [Moles/Vol] 13 mmol/L Normal 5-15 [facility] Comment on above: Performed By: #### 2 157-6, CMP, CBCA, 49736-9 #### [facility] ([id number]) [address] [place] [address]074 AST [Catalytic activity/Vol] 25 U/L Normal 0-41 [facility] Comment on above: Performed By: #### 2 157-6, CMP, CBCA, 98983-9 #### [facility] ([id number]) [address] [place] [address] Bilirubin [Mass/Vol] 1.8 mg/dL High 0.3-1.2 [facility] Comment on above: Performed By: #### 2 157-6, CMP, CBCA, 98980-8 #### [facility] ([id number]) [address] [place] [address] Calcium [Mass/Vol] 8.2 mg/dL Low 8.5-10.5 [facility] Comment on above: Performed By: #### 2 157-6, CMP, CBCA, 80277-6 #### [facility] ([id number]) [address] [place] [address] Chloride [Moles/Vol] 88 mmol/L Low 98-109 [facility] Comment on above: Performed By: #### 2 157-6, CMP, CBCA, 87125-2 #### [facility] ([id number]) [address] [place] [address] CO2 [Moles/Vol] 24 mmol/L Normal 22-32 [facility] Comment on above: Performed By: #### 2 157-6, CMP, CBCA, 82635-5 #### [facility] ([id number]) [address] [place] [address] Creatinine [Mass/Vol] 5.19 mg/dL High 0.70-1.20 [facility] Comment on above: Result Comment: METH OD TRACEABLE TO IDMS STANDARD Performed By: #### 2 157-6, CMP, CBCA, 76827-9 #### [facility] ([id number]) [address] [place] [address] GFR/1.73 sq M.predicted among non-blacks MDRD (S/P/Bld) [Vol rate/Area] 12 mL/min/{1.73_m2} Low >59 [facility] Comment on above: Result Comment: Reported eGFR is based on the CKD-EPI 2020 equation that does not use a race coefficient. Performed By: #### 2 157-6, CMP, CBCA, 80906-7 #### [facility] ([id number]) [address] [place] [address] Glucose [Mass/Vol] 143 mg/dL High 65-99 [facility] Comment on above: Performed By: #### 2 157-6, CMP, CBCA, 80527-9 #### [facility] ([id number]) [address] [place] [address] Potassium [Moles/Vol] 4.7 mmol/L Normal 3.5-5.0 [facility] Comment on above: Performed By: #### 2 157-6, CMP, CBCA, 28214-0 #### [facility] ([id number]) [address] [place] [address] 81691 Protein [Mass/Vol] 6.4 g/dL Normal 6.0-8.0 [facility] Comment on above: Performed By: #### 2 157-6, CMP, CBCA, 90967-1 #### [facility] ([id number]) [address] [place] [address], [place] [address] Sodium [Moles/Vol] 125 mmol/L Low 134-146 [facility] Comment on above: Performed By: #### 2 157-6, CMP, CBCA, 14716-1 #### [facility] ([id number]) [address] [place] [address] Urea nitrogen [Mass/Vol] 52 mg/dL High 5-23 [facility] Comment on above: Performed By: #### 2 157-6, CMP, CBCA, 58964-7 #### [facility] ([id number]) [address] [place] [address] ABDOMEN AND PELVIS WO CON Ton 05-20-2024 CT ABDOMEN AND PELVIS WO CONT CT ABDOMEN AND PELVIS WO CONT CT ABDOMEN AND PELVIS WO CONT: 05/20/2024 [...] is normal in appearance. Mild diverticulosis coli. PERITONEUM/RETROPERITONEU M: No ascites. No free air. VASCULATURE: No [...] Iftikhar Hamilton MD on 05/20/2024 9:02 AM Normal [facility] Glucose Glucometer (BldC) [M ass/Vol]on 05-20-2024 Glucose [Mass/Vol] 92 mg/dL Normal 65-99 [facility] Glucose [Mass/Vol] 113 mg/dL High 65-99 [facility] Lactate (P jose) [Moles/Vol]o n 05-20-2024 LACTATE W/REFLEX 1.3 mmol/L Normal 0.4-2.0 [facility] Comment on above: Result Comment: Result did not trigger repeat Lactate, re-order if needed. Performed By: #### 3 2133-1 #### [facility] ([id number]) [address] [facility] [place] [address] MAGNESIUMon 05-20-2024 Magnesium [Mass/Vol] 1.9 mg/dL Normal 1.8-2.6 [facility] Comment on above: Performed By: #### 1 9123-9 #### [facility] ([id number]) [address] [place] [address] SUPERFICIAL WOUND CULTUREon 05-20-2024 Bacteria identified Aer cx Nom (Wound) GRAM STAIN >25 WHITE BLOOD CELLS/LPF 0 [...] Interpretation SEAN Status DAPTOMYCIN S 1.5 F Susceptible [facility] Comment on above: Performed By: #### 6 32-0 #### [facility] ([id number]) [address] [facility], [address] [place] [address] Bacteria identified Aer cx Nom (Wound) GRAM STAIN 0 to 1 WHITE BLOOD [...] S <=2 F VANCOMYCIN S 1 F Susceptible [facility] Comment on above: Performed By: #### 6 32-0 #### [facility] ([id number]) [address] [facility] [place] [address] Troponin I.cardiac High sens itivity method [Mass/Vol]on 05-20-2024 1 HOUR TROP I, HIGH SENSITIVITY 11 ng/L Normal <21 [facility] Comment on above: Performed By: #### 8 9579-7 #### [facility] ([id number]) [address] [facility] [place] [address] TROPONIN I, HIGH SENSITIVITY 11 ng/L Normal <21 [facility] Comment on above: Performed By: #### 2 157-6, CMP, CBCA, 03372-7 #### [facility] ([id number]) [address] [place] [address], [place] [address] XR CHEST 1 VWon 05-20-2024 XR CHEST 1 VW XR CHEST 1 VW HISTORY: Cough COMPARISON: Chest x-ray 07/23/2023 FINDINGS: Portable AP upright view of the chest was performed. Left-sided pacemaker with intact leads. Cardiac silhouette is enlarged but stable. Mild vascular congestion and pulmonary edema. No significant pleural effusion or pneumothorax. IMPRESSION: * Mild vascular congestion and pulmonary edema. Finalized by Marito Mcadams MD on 05/20/2024 8:27 AM Normal [facility] BASIC METABOLIC PANELon 11-0 Anion gap [Moles/Vol] 15 mmol/L Normal 10-20 [email or web address] [facility] Comment on above: Performed By: #### JULIETTE Smith, PHOS ####[facility] [id number] [place], [place], Calcium [Mass/Vol] 7.5 mg/dL Low 8.6-10.3 [facility] [email or web address] [facility] Comment on above: Performed By: #### JULIETTE Smith, PHOS ####[facility] [id number] [place], [id number] Chloride [Moles/Vol] 95 mmol/L Low 98-107 [facility] [email or web address] [facility] Comment on above: Performed By: #### JULIETTE Smith, PHOS ####[facility] [id number] [place], [place], CO2 [Moles/Vol] 25 mmol/L Normal 21-31 [facility] Comment on above: Performed By: #### JULIETTE Smith, PHOS ####[facility] [id number] [place], [place], Creatinine [Mass/Vol] 4.87 mg/dL High 0.70-1.30 [facility] Comment on above: Performed By: #### JULIETTE Smith, PHOS ####[facility] [id number] [place], [place], ESTIMATED GFR (CKD-EPI) 13 mL/min/1.73sqm Low >=60 [facility] Comment on above: Result Comment: 2020 CKD EPI Equation using Creatinine without RaceComment: Estimated glomerular filtration rate (eGFR) is calculated without a race coefficient. Values should be interpreted in the context of the patient's full clinical presentation.Reference:1. Christophe C, Sagrario M, Gena DC, et al.. A Unifying Approach for GFR Estimation: Recommendations of the NKF-ASN Task Force on Reassessing the Inclusion of Race in Diagnosing Kidney Disease. [place] Journal of Kidney Diseases 2021;79(2):268-88.e1.2. N Engl J Med 2020 Vol. 385 Issue 19 Pages 9516-5414 Performed By: #### JULIETTE Smith, PHOS ####[facility] [id number] [place], [place], Glucose [Mass/Vol] 124 mg/dL High 74-109 [facility] Comment on above: Performed By: #### JULIETTE Smith, PHOS ####[facility] PATHOLOG[facility] [id number] [place], Potassium [Moles/Vol] 4.2 mmol/L Normal 3.5-5.0 [facility] Comment on above: Performed By: #### JULIETTE Smith, PHOS ####[facility] PATHOLOG[facility] [id number] [place], Sodium [Moles/Vol] 131 mmol/L Low 136-145 [facility] Comment on above: Performed By: #### JULIETTE Smith PHOS ####[facility] PATHOLOGY [id number] [place], Urea nitrogen [Mass/Vol] 50 mg/dL High 7-25 [facility] Comment on above: Performed By: #### JULIETTE Smith, TANNER ####[facility] PATHOLOGY [id number] [place], Basic metabolic 2000 panelon 05-15-2024 Anion gap [Moles/Vol] 15 mmol/L 10 - 20 [facility] Calcium [Mass/Vol] 7.5 mg/dL Low 8.6 - 10. 3 mg/dL [facility] Chloride [Moles/Vol] 95 mmol/L Low 98 - 10 7 mmol/L [facility] CO2 [Moles/Vol] 25 mmol/L 21 - 31 mmol/L [facility] Creatinine [Mass/Vol] 4.87 mg/dL High 0.70 - 1.30 mg/dL [facility] GFR/1.73 sq M.predicted CKD-EPI (S/P/Bld) [Vol rate/Area] 13 Low - PINF [facility] Glucose [Mass/Vol] 124 mg/dL High 74 - 109 mg/dL [facility] Interpretation and review of laboratory results Abnormal [facility] Potassium [Moles/Vol] 4.2 mmol/L 3.5 - 5.0 mmol/L [facility] Sodium [Moles/Vol] 131 mmol/L Low 136 - 145 mmol/L [facility] Urea nitrogen [Mass/Vol] 50 mg/dL High 7 - 25 mg/dL [facility] CBC panel Auto (Bld)on 05-15 Erythrocyte distribution width (RBC) [Ratio] 19.6 % High 11.5 - 14.5 % [facility] Hematocrit (Bld) [Volume fraction] 22.5 % Low 41.0 - 53.0 % [facility] Hemoglobin (Bld) [Mass/Vol] 7.3 g/dL Low 13.9 - 16.3 g/dL [facility] Interpretation and review of laboratory results Abnormal [facility] MCH (RBC) [Entitic mass] 30.6 pg 26.0 - 34.0 pg [facility] MCHC (RBC) [Mass/Vol] 32.5 g/dL 32.0 - 35.9 g/dL [facility] MCV (RBC) [Entitic vol] 94 fL 80 - 100 fL [facility] Platelet mean volume (Bld) [Entitic vol] 9.4 fL 7.5 - 11.2 fL [facility] Platelets (Bld) [#/Vol] 175 10*3/uL 150 - 400 K/uL [facility] RBC (Bld) [#/Vol] 2.39 10*6/uL Low [facility] WBC (Bld) [#/Vol] 6.5 10*3/uL 4.5 - 11.5 K/uL [facility] COMPLETE BLOOD COUNTon 05-15 Erythrocyte distribution width (RBC) [Ratio] 19.6 % High 11.5-14.5 [facility] Comment on above: Performed By: #### C BC ####[facility] PATHOLOGY [id number] [place] [address], Hematocrit (Bld) [Volume fraction] 22.5 % Low 41.0-53.0 [facility] Comment on above: Performed By: #### C BC ####[facility] PATHOLOGY [id number] [place] [address], Hemoglobin (Bld) [Mass/Vol] 7.3 g/dL Low 13.9-16.3 [facility] Comment on above: Performed By: #### C BC ####S PATHOLOGY [id number] [place] [address], MCH (RBC) [Entitic mass] 30.6 pg Normal 26.0-34.0 [facility] Comment on above: Performed By: #### C BC ####S PATHOLOGY [id number] [place], MCHC (RBC) [Mass/Vol] 32.5 g/dL Normal 32.0-35.9 [facility] Comment on above: Performed By: #### C BC ####S PATHOLOGY [id number] [place], MCV (RBC) [Entitic vol] 94 fL Normal 80-100 [facility] Comment on above: Performed By: #### C BC ####S PATHOLOGY [id number] [place], Platelet mean volume (Bld) [Entitic vol] 9.4 fL Normal 7.5-11.2 [facility] Comment on above: Performed By: #### C BC ####[facility] PATHOLOGY [id number] [place], Platelets (Bld) [#/Vol] 175 10*3/uL Normal 150-400 [facility] Comment on above: Performed By: #### C BC ####[facility] PATHOLOGY [id number] [place], RBC (Bld) [#/Vol] 2.39 10*6/uL Low 4.50-5.90 [facility] Comment on above: Performed By: #### C BC ####[facility] PATHOLOGY [id number] [place] [address], WBC (Bld) [#/Vol] 6.5 10*3/uL Normal 4.5-11.5 [facility] Comment on above: Performed By: #### C BC ####[facility] PATHOLOGY [id number] [place], Care Plan Noteon 05-15-2024 Securities Adviser Authentication Interface Message Text Normal [facility] Consultson 05-15-2024 Securities Adviser Authentication Interface Message Text Normal [facility] Securities Adviser Authentication Interface Message Text Normal [facility] Discharge Planning Noteon Securities Adviser Authentication Interface Message Text Normal [facility] GLUCOSE, FINGERSTICK-IN OFFI CEon 05-15-2024 Glucose [Mass/Vol] 151 mg/dL High 74 - 109 mg/dL [facility] Interpretation and review of laboratory results Abnormal [facility] Glucose [Mass/Vol] 151 mg/dL High 74-109 [facility] Comment on above: Performed By: #### 8 2948 ####[facility] GLUCOSE [id number] [place], Glucose [Mass/Vol] 157 mg/dL High 74 - 109 mg/dL [facility] Interpretation and review of laboratory results Abnormal [facility] Glucose [Mass/Vol] 157 mg/dL High 74-109 [facility] Comment on above: Performed By: #### 8 2948 ####NURSING GLUCOSE [id number] [place], [address] Glucose [Mass/Vol] 184 mg/dL High 74 - 109 mg/dL [facility] Interpretation and review of laboratory results Abnormal [facility] Glucose [Mass/Vol] 184 mg/dL High 74-109 [facility] Comment on above: Performed By: #### 8 2948 ####NURSING GLUCOSE [id number] [place], [address] Glucose [Mass/Vol] 129 mg/dL High 74 - 109 mg/dL [facility] Interpretation and review of laboratory results Abnormal [facility] Glucose [Mass/Vol] 129 mg/dL High 74-109 [facility] Comment on above: Performed By: #### 8 2948 ####NURSING GLUCOSE [id number] [place], [address] HCV Ab IA Qn (S)Ordered By: Kayode Mcclelland on 05-15-2024 HCV Ab Ql (S) Non-Reactive Nonreactive [facility] Interpretation and review of laboratory results Normal [facility] HEPATITIS C ANTIBODYon 05-15 HCV Non-Reactive Normal Nonreactive [facility] Comment on above: Performed By: #### H CV ####[facility] PATHOLOGY [id number] [place], [address] HIV 1 and 2 Ab and HIV 1 p24 Ag panel IAon 05-15-2024 HIV 1+2 Ab+HIV1 p24 Ag IA Ql Non-Reactive Non-Reactive [facility] Interpretation and review of laboratory results Normal [facility] HIV1 HIV2 AGAB SCRNon 2023 HIV AG-AB SCREEN Non-Reactive Normal Non-Reactive [facility] Comment on above: Order Comment: HIV I nformation: ???[place] Rev. code 3701.243(E):This information has been disclosed to you from [...] release of HIV test results or diagnoses. Result Comment: No l aboratory evidence for HIV Infection. Negative result does not rule out acute HIV infection. If acute HIV infection is suspected, recommend ordering an HIV-1 RNA quanitification test. Performed By: #### h iv1 hiv2 agab scrn ####[facility] PATHOLOG[facility] [id number] [place], MAGNESIUMon 05-15-2024 Magnesium [Mass/Vol] 1.9 mg/dL 1.9 - 2 .7 mg/dL [facility] Magnesium [Mass/Vol] 1.9 mg/dL Normal 1.9-2.7 [facility] Comment on above: Performed By: #### JULIETTE Smith, PHOBhaskar ####[facility] PATHOLOGY [id number] [place], No Panel Informationon 05-15 Interpretation and review of laboratory results Normal [facility] PHOSPHORUSon 05-15-2024 Phosphate [Mass/Vol] 3.8 mg/dL 2.5 - 5 .0 mg/dL [facility] Phosphate [Mass/Vol] 3.8 mg/dL Normal 2.5-5.0 [facility] Comment on above: Performed By: #### JULIETTE Smith, PHOS ####[facility] PATHOLOGY [id number] [place], Progress Noteson 05-15-2024 Securities Adviser Authentication Interface Message Text This RN attempted to call [facility] @ [phone]. To provide report on pt. Both attempts were unsuccessful. This RN left voice mail with unit phone number for a call back. Normal [facility] Securities Adviser Authentication Interface Message Text Normal [facility] Securities Adviser Authentication Interface Message Text Normal [facility] Securities Adviser Authentication Interface Message Text Normal [facility] Securities Adviser Authentication Interface Message Text Normal [facility] RFA AV fistula Views W contr ast IAon 05-15-2024 RADIOLOGY [facility] RFA AV fistula Views W contr ast IAOrdered By: Rojelio Gerardo on 05-15-2024 [facility] Work Phone: XA FISTULAGRAM C PTAon 05-15 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 The [email or web address] [facility] BASIC METABOLIC PANELon 10-3 Anion gap [Moles/Vol] 11 mmol/L Normal 10-20 [facility] Comment on above: Performed By: #### TANNER aGrcia, MG ####[facility] PATHOLOGY [id number] [place], Calcium [Mass/Vol] 7.5 mg/dL Low 8.6-10.3 [email or web address] Comment on above: Performed By: #### TANNER Garcia, MG ####[facility] PATHOLOGY [id number] [place], Chloride [Moles/Vol] 97 mmol/L Low 98-107 [facility] Comment on above: Performed By: #### DEANNA GarciaS, MG ####[facility] PATHOLOGY [id number] [place], CO2 [Moles/Vol] 27 mmol/L Normal 21-31 [email or web address] Comment on above: Performed By: #### DEANNA GarciaS, MG ####[facility] PATHOLOGY [id number] [place], Creatinine [Mass/Vol] 3.63 mg/dL High 0.70-1.30 [facility] Comment on above: Performed By: #### Charity Santacruz PHOS, MG ####[facility] PATHOLOGY [id number] [place], ESTIMATED GFR (CKD-EPI) 18 mL/min/1.73sqm Low >=60 [email or web address] [facility] Comment on above: Result Comment: 2020 CKD EPI Equation using Creatinine without RaceComment: Estimated glomerular filtration rate (eGFR) is calculated without a race coefficient. Values should be interpreted in the context of the patient's full clinical presentation.Reference:1. Christophe C, Sagrario M, Gena DC, et al.. A Unifying Approach for GFR Estimation: Recommendations of the NKF-ASN Task Force on Reassessing the Inclusion of Race in Diagnosing Kidney Disease. [place] Journal of Kidney Diseases 2021;79(2):268-88.e1.2. N Engl J Med 1 Vol. 385 Issue 19 Pages 3701-9210 Performed By: #### TANNER Garcia, MG ####[facility] PATHOLOGY [id number] [place], Glucose [Mass/Vol] 172 mg/dL High 74-109 [facility] Comment on above: Performed By: #### Charity Santacruz PHOS, MG ####[facility] PATHOLOGY [id number] [place], Potassium [Moles/Vol] 3.9 mmol/L Normal 3.5-5.0 [facility] Comment on above: Performed By: #### Charity Santacruz PHOS, MG ####[facility] PATHOLOGY [id number] [place], Sodium [Moles/Vol] 131 mmol/L Low 136-145 [facility] Comment on above: Performed By: #### Charity Santacruz PHOS, MG ####[facility] PATHOLOGY [id number] [place], Urea nitrogen [Mass/Vol] 34 mg/dL High 7-25 [facility] Comment on above: Performed By: #### Charity HShahnaz PHOS, MG ####[facility] PATHOLOGY [id number] [place], Basic metabolic 2000 panelon 05-14-2024 Anion gap [Moles/Vol] 11 mmol/L 10 - 20 [facility] Calcium [Mass/Vol] 7.5 mg/dL Low 8.6 - 10. 3 mg/dL [facility] Chloride [Moles/Vol] 97 mmol/L Low 98 - 10 7 mmol/L [facility] CO2 [Moles/Vol] 27 mmol/L 21 - 31 mmol/L [facility] Creatinine [Mass/Vol] 3.63 mg/dL High 0.70 - 1.30 mg/dL [facility] GFR/1.73 sq M.predicted CKD-EPI (S/P/Bld) [Vol rate/Area] 18 Low - PINF [facility] Glucose [Mass/Vol] 172 mg/dL High 74 - 109 mg/dL [facility] Interpretation and review of laboratory results Abnormal [facility] Potassium [Moles/Vol] 3.9 mmol/L 3.5 - 5.0 mmol/L [facility] Sodium [Moles/Vol] 131 mmol/L Low 136 - 145 mmol/L [facility] Urea nitrogen [Mass/Vol] 34 mg/dL High 7 - 25 mg/dL [facility] CBC panel Auto (Bld)on 05-14 Erythrocyte distribution width (RBC) [Ratio] 19.9 % High 11.5 - 14.5 % [facility] Hematocrit (Bld) [Volume fraction] 24.6 % Low 41.0 - 53.0 % [facility] Hemoglobin (Bld) [Mass/Vol] 7.9 g/dL Low 13.9 - 16.3 g/dL [facility] Interpretation and review of laboratory results Abnormal [facility] MCH (RBC) [Entitic mass] 30.6 pg 26.0 - 34.0 pg [facility] MCHC (RBC) [Mass/Vol] 32.3 g/dL 32.0 - 35.9 g/dL [facility] MCV (RBC) [Entitic vol] 95 fL 80 - 100 fL [facility] Platelet mean volume (Bld) [Entitic vol] 9.4 fL 7.5 - 11.2 fL [facility] Platelets (Bld) [#/Vol] 169 10*3/uL 150 - 400 K/uL [facility] RBC (Bld) [#/Vol] 2.59 10*6/uL Low [facility] WBC (Bld) [#/Vol] 6.2 10*3/uL 4.5 - 11.5 K/uL [facility] COMPLETE BLOOD COUNTon 05-14 Erythrocyte distribution width (RBC) [Ratio] 19.9 % High 11.5-14.5 [facility] Comment on above: Performed By: #### C BC ####[facility] PATHOLOGY [id number] [place], [address] Hematocrit (Bld) [Volume fraction] 24.6 % Low 41.0-53.0 [facility] Comment on above: Performed By: #### C BC ####[facility] PATHOLOGY [id number] [place], Hemoglobin (Bld) [Mass/Vol] 7.9 g/dL Low 13.9-16.3 [facility] Comment on above: Performed By: #### C BC ####[facility] PATHOLOGY [id number] [place], MCH (RBC) [Entitic mass] 30.6 pg Normal 26.0-34.0 [facility] Comment on above: Performed By: #### C BC ####[facility] PATHOLOGY [id number] [place], MCHC (RBC) [Mass/Vol] 32.3 g/dL Normal 32.0-35.9 [facility] Comment on above: Performed By: #### C BC ####[facility] PATHOLOGY [id number] [place], MCV (RBC) [Entitic vol] 95 fL Normal 80-100 [facility] Comment on above: Performed By: #### C BC ####[facility] PATHOLOGY [id number] [place], Platelet mean volume (Bld) [Entitic vol] 9.4 fL Normal 7.5-11.2 [facility] Comment on above: Performed By: #### C BC ####[facility] PATHOLOGY [id number] [place], Platelets (Bld) [#/Vol] 169 10*3/uL Normal 150-400 [facility] Comment on above: Performed By: #### C BC ####[facility] PATHOLOGY [id number] [place], RBC (Bld) [#/Vol] 2.59 10*6/uL Low 4.50-5.90 [facility] Comment on above: Performed By: #### C BC ####[facility] PATHOLOGY [id number] [place], WBC (Bld) [#/Vol] 6.2 10*3/uL Normal 4.5-11.5 [facility] Comment on above: Performed By: #### C ####[facility] PATHOLOGY [id number] [place], [address] Consultson 05-14-2024 Securities Adviser Authentication Interface Message Text Normal [facility] EKG 12 LEAD - PERFORMon 04-16 Diagnosis [facility] P wave [facility] by EKG 62 BPM [facility] Q-T interval 520 ms [facility] Q-T interval corrected 540 ms [facility] QRS axis -19 degrees [facility] QRS duration 182 ms [facility] T wave axis 4 degrees [facility] GLUCOSE, FINGERSTICK-IN OFFI CEon 05-14-2024 Glucose [Mass/Vol] 209 mg/dL High 74 - 109 mg/dL [facility] Interpretation and review of laboratory results Abnormal [facility] Glucose [Mass/Vol] 209 mg/dL High 74-109 [facility] Comment on above: Performed By: #### 8 2948 ####NURSING GLUCOSE [id number] [place], [address] Glucose [Mass/Vol] 157 mg/dL High 74 - 109 mg/dL [facility] Interpretation and review of laboratory results Abnormal [facility] Glucose [Mass/Vol] 157 mg/dL High 74-109 [facility] Comment on above: Performed By: #### 8 2948 ####NURSING GLUCOSE [id number] [place], [address] Glucose [Mass/Vol] 199 mg/dL High 74 - 109 mg/dL [facility] Interpretation and review of laboratory results Abnormal [facility] Glucose [Mass/Vol] 199 mg/dL High 74-109 [facility] Comment on above: Performed By: #### 8 2948 ####NURSING GLUCOSE [id number] [place], [address] Glucose [Mass/Vol] 117 mg/dL High 74 - 109 mg/dL [facility] Interpretation and review of laboratory results Abnormal [facility] Glucose [Mass/Vol] 117 mg/dL High 74-109 [facility] Comment on above: Performed By: #### 8 2948 ####NURSING GLUCOSE [id number] [place], [address] H AND Nelson 05-14-2024 Securities Adviser Authentication Interface Message Text Normal The [facility] MAGNESIUMon 05-14-2024 Magnesium [Mass/Vol] 1.9 mg/dL 1.9 - 2 .7 mg/dL [facility] Magnesium [Mass/Vol] 1.9 mg/dL Normal 1.9-2.7 [facility] Comment on above: Performed By: #### C H8, PHOS, MG ####[facility] PATHOLOGY [id number] [place], No Panel Informationon 05-14 Interpretation and review of laboratory results Normal [facility] PHOSPHORUSon 05-14-2024 Phosphate [Mass/Vol] 3.3 mg/dL 2.5 - 5 .0 mg/dL [facility] Phosphate [Mass/Vol] 3.3 mg/dL Normal 2.5-5.0 [facility] Comment on above: Performed By: #### C H8, PHOS, MG ####[facility] PATHOLOGY [id number] [place], Post-Procedure Noteon 2023 Securities Adviser Authentication Interface Message Text Normal [facility] Progress Noteson 05-14-2024 Securities Adviser Authentication Interface Message Text Normal The [facility] Securities Adviser Authentication Interface Message Text Normal [facility] Securities Adviser Authentication Interface Message Text Normal [facility] RFA AV fistula Views W contr ast IAon 05-14-2024 Radiology Study observation (narrative) [facility] XR CHEST AP OR PA 1 VIEWon 1 XR CHEST AP OR PA 1 VIEW Normal [facility] XR Chest Single viewon 05-14 RADIOLOGY [facility] EXAMINATION: XR CHES T AP OR PA 1 VIEW 05/14/2024 07:21 PM CLINICAL HISTORY: cough ASSOCIATED DIAGNOSIS: cough ORDERING PROVIDER: JODEE MARSHALL TECHNOLOGISTS NOTE: COMPARISON: 05/03/2024 FINDINGS: Limitations: Limited by [...] right rib fractures. 4. Cardiomegaly. MACRO: None RADIOLOGY Alejo Sands MD - 05/14/2024 EXAMINATION: XR CHEST AP OR PA 1 [...] right rib fractures. 4. Cardiomegaly. MACRO: None [facility] Radiology Study observation (narrative) [email or web address] XR Chest Single viewOrdered By: Alejo Sands on 05-14-2024 [email or web address] Work Phone: BASIC METABOLIC PANELon 04-16 Anion gap [Moles/Vol] 15 mmol/L Normal 05-03 [email or web address] Comment on above: Performed By: #### M Paty, PHOS, CH8 ####[facility] PATHOLOGY [id number] [place], [address] Calcium [Mass/Vol] 7.6 mg/dL Low 8.6-10.3 [facility] Comment on above: Performed By: #### TANNER Smith CH8 ####[facility] PATHOLOGY [id number] [place], Chloride [Moles/Vol] 97 mmol/L Low 98-107 [facility] Comment on above: Performed By: #### TANNER Smith CH8 ####S PATHOLOGY [id number] [place], CO2 [Moles/Vol] 24 mmol/L Normal 21-31 [facility] Comment on above: Performed By: #### TANNER Smith CH8 ####S PATHOLOGY [id number] [place], Creatinine [Mass/Vol] 4.55 mg/dL High 0.70-1.30 [facility] Comment on above: Performed By: #### TANNER Smith CH8 ####S PATHOLOGY [id number] [place], ESTIMATED GFR (CKD-EPI) 14 mL/min/1.73sqm Low >=60 [facility] Comment on above: Result Comment: 2020 CKD EPI Equation using Creatinine without RaceComment: Estimated glomerular filtration rate (eGFR) is calculated without a race coefficient. Values should be interpreted in the context of the patient's full clinical presentation.Reference:1. Christophe C, Sagrario M, Gena YUAN, et al.. A Unifying Approach for GFR Estimation: Recommendations of the NKF-ASN Task Force on Reassessing the Inclusion of Race in Diagnosing Kidney Disease. [place] Journal of Kidney Diseases 2021;79(2):268-88.e1.2. N Engl J Med 2020 Vol. 385 Issue 19 Pages 3930-7715 Performed By: #### TANNER Smith CH8 ####[facility] PATHOLOGY [id number] [place], Glucose [Mass/Vol] 146 mg/dL High 74-109 [facility] Comment on above: Performed By: #### TANNER Smith CH8 ####[facility] PATHOLOGY [id number] [place], Potassium [Moles/Vol] 4.0 mmol/L Normal 3.5-5.0 [facility] Comment on above: Performed By: #### TANNER Smith CH8 ####S PATHOLOGY [id number] [place], Sodium [Moles/Vol] 132 mmol/L Low 136-145 [facility] Comment on above: Performed By: #### TANNER Smith CH8 ####[facility] PATH[facility] [id number] [place], Urea nitrogen [Mass/Vol] 47 mg/dL High 7-25 [facility] Comment on above: Performed By: #### TANNER Smith CH8 ####[facility] PATHOLOGY [id number] [place], Basic metabolic 2000 panelon 05-13-2024 Anion gap [Moles/Vol] 15 mmol/L [facility] Calcium [Mass/Vol] 7.6 mg/dL Low 8.6 - 10. 3 mg/dL [facility] Chloride [Moles/Vol] 97 mmol/L Low 98 - 10 7 mmol/L [facility] CO2 [Moles/Vol] 24 mmol/L 21 - 31 mmol/L [facility] Creatinine [Mass/Vol] 4.55 mg/dL High 0.70 - 1.30 mg/dL [facility] GFR/1.73 sq M.predicted CKD-EPI (S/P/Bld) [Vol rate/Area] 14 Low - PINF [facility] Glucose [Mass/Vol] 146 mg/dL High 74 - 109 mg/dL [facility] Interpretation and review of laboratory results Abnormal [facility] Potassium [Moles/Vol] 4.0 mmol/L 3.5 - 5.0 mmol/L [facility] Sodium [Moles/Vol] 132 mmol/L Low 136 - 145 mmol/L [facility] Urea nitrogen [Mass/Vol] 47 mg/dL High 7 - 25 mg/dL [facility] CBC panel Auto (Bld)on 05-13 Erythrocyte distribution width (RBC) [Ratio] 20.2 % High 11.5 - 14.5 % [facility] Hematocrit (Bld) [Volume fraction] 25.7 % Low 41.0 - 53.0 % [facility] Hemoglobin (Bld) [Mass/Vol] 8.1 g/dL Low 13.9 - 16.3 g/dL [facility] Interpretation and review of laboratory results Abnormal [facility] MCH (RBC) [Entitic mass] 30.3 pg 26.0 - 34.0 pg [facility] MCHC (RBC) [Mass/Vol] 31.7 g/dL Low 32.0 - 35.9 g/dL [facility] MCV (RBC) [Entitic vol] 96 fL 80 - 100 fL [facility] Platelet mean volume (Bld) [Entitic vol] 9.0 fL 7.5 - 11.2 fL [facility] Platelets (Bld) [#/Vol] 153 10*3/uL 150 - 400 K/uL [facility] RBC (Bld) [#/Vol] 2.68 10*6/uL Low [facility] WBC (Bld) [#/Vol] 5.6 10*3/uL 4.5 - 11.5 K/uL [facility] COMPLETE BLOOD COUNTon 05-13 Erythrocyte distribution width (RBC) [Ratio] 20.2 % High 11.5-14.5 [facility] Comment on above: Performed By: #### C BC ####S PATHOLOGY [id number] [place], Hematocrit (Bld) [Volume fraction] 25.7 % Low 41.0-53.0 [facility] Comment on above: Performed By: #### C BC ####S PATHOLOGY [id number] [place], Hemoglobin (Bld) [Mass/Vol] 8.1 g/dL Low 13.9-16.3 [facility] Comment on above: Performed By: #### C BC ####S PATHOLOGY [id number] [place], [place], MCH (RBC) [Entitic mass] 30.3 pg Normal 26.0-34.0 [facility] Comment on above: Performed By: #### C BC ####S PATHOLOGY [id number] [place], MCHC (RBC) [Mass/Vol] 31.7 g/dL Low 32.0-35.9 [facility] Comment on above: Performed By: #### C BC ####[facility] PATHOLOGY [id number] [place], MCV (RBC) [Entitic vol] 96 fL Normal 80-100 [facility] Comment on above: Performed By: #### C BC ####[facility] PATHOLOGY [id number] [place], Platelet mean volume (Bld) [Entitic vol] 9.0 fL Normal 7.5-11.2 [facility] Comment on above: Performed By: #### C BC ####[facility] PATHOLOGY [id number] [place] [address], Platelets (Bld) [#/Vol] 153 10*3/uL Normal 150-400 [facility] Comment on above: Performed By: #### C BC ####[facility] PATHOLOGY [id number] [place], RBC (Bld) [#/Vol] 2.68 10*6/uL Low 4.50-5.90 [facility] Comment on above: Performed By: #### C BC ####[facility] PATHOLOGY [id number] [place], WBC (Bld) [#/Vol] 5.6 10*3/uL Normal 4.5-11.5 [facility] Comment on above: Performed By: #### C BC ####S PATHOLOGY [id number] [place], GLUCOSE, FINGERSTICK-IN OFFI CEon 05-13-2024 Glucose [Mass/Vol] 217 mg/dL High 74 - 109 mg/dL [facility] Interpretation and review of laboratory results Abnormal [facility] Glucose [Mass/Vol] 217 mg/dL High 74-109 [facility] Comment on above: Performed By: #### 8 2948 ####NURSING GLUCOSE [id number] [place], Glucose [Mass/Vol] 139 mg/dL High 74 - 109 mg/dL [facility] Interpretation and review of laboratory results Abnormal [facility] Glucose [Mass/Vol] 139 mg/dL High 74-109 [facility] Comment on above: Performed By: #### 8 2948 ####NURSING GLUCOSE [id number] [place], [address] Glucose [Mass/Vol] 195 mg/dL High 74 - 109 mg/dL [facility]ation and review of laboratory results Abnormal [facility] Glucose [Mass/Vol] 195 mg/dL High 74-109 [facility] Comment on above: Performed By: #### 8 0148 ####NURSING GLUCOSE [id number] [place], [address] Glucose [Mass/Vol] 157 mg/dL High 74 - 109 mg/dL [facility] Interpretation and review of laboratory results Abnormal [facility] Glucose [Mass/Vol] 157 mg/dL High 74-109 [facility] Comment on above: Performed By: #### 8 2498 ####NURSING GLUCOSE [id number] [place], [address] Laboratory - Blood bankon Major crossmatch [Interp] Compatible (E) [facility] MAGNESIUMon 05-13-2024 Magnesium [Mass/Vol] 2.1 mg/dL 1.9 - 2 .7 mg/dL [facility] Magnesium [Mass/Vol] 2.1 mg/dL Normal 1.9-2.7 [facility] Comment on above: Performed By: #### TANNER Smith [facility] ####[facility] PATHOLOGY [id number] [place] [address], [id number] No Panel Informationon 05-13 Interpretation and review of laboratory results Normal [facility] Blood Product Code [id number] [facility] Blood Product Description Red Blood Cells [facility] Blood Product Unit Type 6200 [facility] Status Transfused [facility] PHOSPHORUSon 05-13-2024 Phosphate [Mass/Vol] 4.1 mg/dL 2.5 - 5 .0 mg/dL [facility] Phosphate [Mass/Vol] 4.1 mg/dL Normal 2.5-5.0 [facility] Comment on above: Performed By: #### TANNER Smith CH8 ####[facility] PATH[facility] [id number] [place], Progress Noteson 05-13-2024 Securities Adviser Authentication Interface Message Text Normal [email or web address] Securities Adviser Authentication Interface Message Text Normal [email or web address] Securities Adviser Authentication Interface Message Text Normal [email or web address] Securities Adviser Authentication Interface Message Text 05/13/24 0624 05/13/24 0631 Vital Signs Heart Rate 62 -- Respiratory Rate 18 -- BP 90/44 (RN notified) 88/52 (manual, RN aware) MAP (mmHg) 58 mmHg -- MD notified of above vital signs. New order received. Normal [email or web address] Progress Notes - NoteWritero n 05-13-2024 Securities Adviser Authentication Interface Message Text Normal [email or web address] RED BLOOD CELL UNIT STATUSon 05-13-2024 Blood product unit Nom (BPU) [ID] [id number] [facility] product [facility] Nom (BPU) [ID] [id number] [facility] BASIC METABOLIC PANELon - Anion gap [Moles/Vol] 13 mmol/L Normal - [facility] Comment on above: Performed By: ###TANNER Carter CH8 ####[facility] PATH[facility] [id number] [place], Calcium [Mass/Vol] 7.7 mg/dL Low 8.6-10.3 [facility] Comment on above: Performed By: ###TANNER Carter CH8 ####[facility] PATH[facility] [id number] [place], Chloride [Moles/Vol] 99 mmol/L Normal 98-107 [facility] Comment on above: Performed By: ###TANNER Carter CH8 ####[facility] PATH[facility] [id number] [place], CO2 [Moles/Vol] 25 mmol/L Normal 21-31 [facility] Comment on above: Performed By: #### TANNER Smith CH8 ####[facility] PATH[facility] [id number] [place], Creatinine [Mass/Vol] 3.44 mg/dL High 0.70-1.30 [facility] Comment on above: Performed By: ###TANNER Carter CH8 ####[facility] PATHOLOG[facility] [id number] [place], ESTIMATED GFR (CKD-EPI) 20 mL/min/1.73sqm Low >=60 [facility] Comment on above: Result Comment: 2020 CKD EPI Equation using Creatinine without RaceComment: Estimated glomerular filtration rate (eGFR) is calculated without a race coefficient. Values should be interpreted in the context of the patient's full clinical presentation.Reference:1. Christophe C, Sagrario M, Gena YUAN, et al.. A Unifying Approach for GFR Estimation: Recommendations of the NKF-ASN Task Force on Reassessing the Inclusion of Race in Diagnosing Kidney Disease. [place] Journal of Kidney Diseases 2021;79(2):268-88.e1.2. N Engl J Med 1 Vol. 385 Issue 19 Pages 3119-0450 Performed By: #### TANNER Smith CH8 ####[facility] PATH[facility] [id number] [place], Glucose [Mass/Vol] 119 mg/dL High 74-109 [facility] Comment on above: Performed By: ###TANNER Carter CH8 ####[facility] PATH[facility] [id number] [place], Potassium [Moles/Vol] 4.0 mmol/L Normal 3.5-5.0 [facility] Comment on above: Performed By: ###TANNER Carter CH8 ####[facility] PATH[facility] [id number] [place], Sodium [Moles/Vol] 133 mmol/L Low 136-145 [facility] Comment on above: Performed By: ###TANNER Carter CH8 ####[facility] PATH[facility] [id number] [place], Urea nitrogen [Mass/Vol] 29 mg/dL High 7-25 [facility] Comment on above: Performed By: #### M G, PHOS, CH8 ####[facility] PATHOLOGY [id number] [place], [address] Basic metabolic 2000 panelOr dered By: Tila Moore on 05-12-2024 Anion gap [Moles/Vol] 13 mmol/L 10 - 20 [facility] Calcium [Mass/Vol] 7.7 mg/dL Low 8.6 - 10. 3 mg/dL [facility] Chloride [Moles/Vol] 99 mmol/L 98 - 10 7 mmol/L [facility] CO2 [Moles/Vol] 25 mmol/L 21 - 31 mmol/L [facility] Creatinine [Mass/Vol] 3.44 mg/dL High 0.70 - 1.30 mg/dL [facility] GFR/1.73 sq M.predicted CKD-EPI (S/P/Bld) [Vol rate/Area] 20 Low - PINF [facility] Glucose [Mass/Vol] 119 mg/dL High 74 - 109 mg/dL [facility] Interpretation and review of laboratory results Abnormal [facility] Potassium [Moles/Vol] 4.0 mmol/L 3.5 - 5.0 mmol/L [facility] Sodium [Moles/Vol] 133 mmol/L Low 136 - 145 mmol/L [facility] Urea nitrogen [Mass/Vol] 29 mg/dL High 7 - 25 mg/dL [facility] CBC panel Auto (Bld)on 05-12 Erythrocyte distribution width (RBC) [Ratio] 20.1 % High 11.5 - 14.5 % [facility] Hematocrit (Bld) [Volume fraction] 27.1 % Low 41.0 - 53.0 % [facility] Hemoglobin (Bld) [Mass/Vol] 8.5 g/dL Low 13.9 - 16.3 g/dL [facility] Interpretation and review of laboratory results Abnormal [facility] MCH (RBC) [Entitic mass] 30.1 pg 26.0 - 34.0 pg [facility] MCHC (RBC) [Mass/Vol] 31.5 g/dL Low 32.0 - 35.9 g/dL [facility] MCV (RBC) [Entitic vol] 96 fL 80 - 100 fL [facility] Platelet mean volume (Bld) [Entitic vol] 8.5 fL 7.5 - 11.2 fL [facility] Platelets (Bld) [#/Vol] 145 10*3/uL Low 150 - 400 K/uL [facility] RBC (Bld) [#/Vol] 2.84 10*6/uL Low [facility] WBC (Bld) [#/Vol] 6.5 10*3/uL 4.5 - 11.5 K/uL [facility] COMPLETE BLOOD COUNTon 05-12 Erythrocyte distribution width (RBC) [Ratio] 20.1 % High 11.5-14.5 [facility] Comment on above: Performed By: #### C BC ####[facility] PATHOLOGY [id number] [place], Hematocrit (Bld) [Volume fraction] 27.1 % Low 41.0-53.0 [facility] Comment on above: Performed By: #### C BC ####[facility] PATHOLOGY [id number] [place], Hemoglobin (Bld) [Mass/Vol] 8.5 g/dL Low 13.9-16.3 [facility] Comment on above: Performed By: #### C BC ####[facility] PATHOLOGY [id number] [place], MCH (RBC) [Entitic mass] 30.1 pg Normal 26.0-34.0 [facility] Comment on above: Performed By: #### C BC ####[facility] PATHOLOGY [id number] [place], MCHC (RBC) [Mass/Vol] 31.5 g/dL Low 32.0-35.9 [facility] Comment on above: Performed By: #### C BC ####[facility] PATHOLOGY [id number] [place], MCV (RBC) [Entitic vol] 96 fL Normal 80-100 [facility] Comment on above: Performed By: #### C BC ####S PATHOLOGY [id number] [place], Platelet mean volume (Bld) [Entitic vol] 8.5 fL Normal 7.5-11.2 [facility] Comment on above: Performed By: #### C BC ####[facility] PATHOLOGY [id number] [place], Platelets (Bld) [#/Vol] 145 10*3/uL Low 150-400 [facility] Comment on above: Performed By: #### C BC ####S PATHOLOGY [id number] [place], RBC (Bld) [#/Vol] 2.84 10*6/uL Low 4.50-5.90 [facility] Comment on above: Performed By: #### C BC ####[facility] PATHOLOGY [id number] [place], WBC (Bld) [#/Vol] 6.5 10*3/uL Normal 4.5-11.5 [facility] Comment on above: Performed By: #### C BC ####[facility] PATHOLOGY [id number] [place], Consultson 05-12-2024 Securities Adviser Authentication Interface Message Text Normal [facility] Securities Adviser Authentication Interface Message Text Normal [facility] Securities Adviser Authentication Interface Message Text Normal [facility] GLUCOSE, FINGERSTICK-IN OFFI CEon 05-12-2024 Glucose [Mass/Vol] 193 mg/dL High 74 - 109 mg/dL [facility] Interpretation and review of laboratory results Abnormal [facility] Glucose [Mass/Vol] 193 mg/dL High 74-109 [facility] Comment on above: Result Comment: Mateo dai RN, APN, MD Performed By: #### 8 2948 ####NURSING GLUCOSE [id number] [place], [address] Glucose [Mass/Vol] 199 mg/dL High 74 - 109 mg/dL [facility] Interpretation and review of laboratory results Abnormal [facility] Glucose [Mass/Vol] 199 mg/dL High 74-109 [facility] Comment on above: Performed By: #### 8 2948 ####NURSING GLUCOSE [id number] [place], [address] Glucose [Mass/Vol] 171 mg/dL High 74 - 109 mg/dL [facility] Interpretation and review of laboratory results Abnormal [facility] Glucose [Mass/Vol] 171 mg/dL High 74-109 [facility] Comment on above: Performed By: #### 8 2948 ####NURSING GLUCOSE [id number] [place], [address] Glucose [Mass/Vol] 108 mg/dL 74 - 109 mg/dL [facility] Interpretation and review of laboratory results Normal [facility] Glucose [Mass/Vol] 108 mg/dL Normal 74-109 [facility] Comment on above: Performed By: #### 8 2948 ####NURSING GLUCOSE [id number] [place], [address] MAGNESIUMon 05-12-2024 Interpretation and review of laboratory results Normal [facility] Magnesium [Mass/Vol] 1.9 mg/dL 1.9 - 2 .7 mg/dL [facility] Magnesium [Mass/Vol] 1.9 mg/dL Normal 1.9-2.7 [facility] Comment on above: Performed By: #### TANNER Smith CH8 ####[facility] PATH[facility] [id number] [place], No Panel Informationon 05-12 [facility] PHOSPHORUSon 05-12-2024 Interpretation and review of laboratory results Abnormal [facility] Phosphate [Mass/Vol] 2.2 mg/dL Low 2.5 - 5 .0 mg/dL [facility] Phosphate [Mass/Vol] 2.2 mg/dL Low 2.5-5.0 [facility] Comment on above: Performed By: #### TANNER Smith CH8 ####[facility] PATH[facility] [id number] [place], Progress Noteson 05-12-2024 Securities Adviser Authentication Interface Message Text Normal [facility] Securities Adviser Authentication Interface Message Text Normal [facility] Securities Adviser Authentication Interface Message Text Normal [facility] BASIC METABOLIC PANELon 04-15 Anion gap [Moles/Vol] 12 mmol/L Normal 05-03 [facility] Comment on above: Performed By: #### JULIETTE Smith PHOS ####[facility] PATHOLOGY [id number] [place], Calcium [Mass/Vol] 7.8 mg/dL Low 8.6-10.3 [facility] Comment on above: Performed By: #### JULIETTE Smith, PHOS ####[facility] PATHOLOGY [id number] [place], Chloride [Moles/Vol] 100 mmol/L Normal 98-107 [facility] Comment on above: Performed By: #### JULIETTE Simth, PHOS ####[facility] PATHOLOGY [id number] [place], CO2 [Moles/Vol] 26 mmol/L Normal 21-31 [facility] Comment on above: Performed By: #### JULIETTE Smith, PHOS ####[facility] PATHOLOGY [id number] [place], Creatinine [Mass/Vol] 4.99 mg/dL High 0.70-1.30 [facility] Comment on above: Performed By: #### JULIETTE Smith, PHOS ####[facility] PATHOLOGY [id number] [place], ESTIMATED GFR (CKD-EPI) 13 mL/min/1.73sqm Low >=60 [facility] Comment on above: Result Comment: 2020 CKD EPI Equation using Creatinine without RaceComment: Estimated glomerular filtration rate (eGFR) is calculated without a race coefficient. Values should be interpreted in the context of the patient's full clinical presentation.Reference:1. Christophe C, Sagrario M, Gena YUAN, et al.. A Unifying Approach for GFR Estimation: Recommendations of the NKF-ASN Task Force on Reassessing the Inclusion of Race in Diagnosing Kidney Disease. [place] Journal of Kidney Diseases 2021;79(2):268-88.e1.2. N Engl J Med 1 Vol. 385 Issue 19 Pages 7914-7300 Performed By: #### JULIETTE Smith, DEANNAS ####[facility] PATHOLOGY [id number] [place], Glucose [Mass/Vol] 141 mg/dL High 74-109 [facility] Comment on above: Performed By: #### JULIETTE Smith, PHOS ####[facility] PATHOLOGY [id number] [place], Potassium [Moles/Vol] 4.2 mmol/L Normal 3.5-5.0 [facility] Comment on above: Performed By: #### JULIETTE Smith, TANNER ####[facility] PATHOLOGY [id number] [place], Sodium [Moles/Vol] 134 mmol/L Low 136-145 [facility] Comment on above: Performed By: #### JULIETTE Smith, TANNER ####[facility] PATHOLOGY [id number] [place], Urea nitrogen [Mass/Vol] 47 mg/dL High 7-25 [facility] Comment on above: Performed By: #### JULIETTE Smith, TANNER ####S PATHOLOGY [id number] [place], Basic metabolic 2000 panelon 05-11-2024 Anion gap [Moles/Vol] 12 mmol/L 10 - Met [facility] Calcium [Mass/Vol] 7.8 mg/dL Low 8.6 - 10. 3 mg/dL [facility] Chloride [Moles/Vol] 100 mmol/L 98 - 10 7 mmol/L [facility] CO2 [Moles/Vol] 26 mmol/L 21 - 31 mmol/L [facility] Creatinine [Mass/Vol] 4.99 mg/dL High 0.70 - 1.30 mg/dL [facility] GFR/1.73 sq M.predicted CKD-EPI (S/P/Bld) [Vol rate/Area] 13 Low - PINF [facility] Glucose [Mass/Vol] 141 mg/dL High 74 - 109 mg/dL [facility] Interpretation and review of laboratory results Abnormal [facility] Potassium [Moles/Vol] 4.2 mmol/L 3.5 - 5.0 mmol/L [facility] Sodium [Moles/Vol] 134 mmol/L Low 136 - 145 mmol/L [facility] Urea nitrogen [Mass/Vol] 47 mg/dL High 7 - 25 mg/dL [facility] CBC panel Auto (Bld)on 05-11 Erythrocyte distribution width (RBC) [Ratio] 20.2 % High 11.5 - 14.5 % [facility] Hematocrit (Bld) [Volume fraction] 26.6 % Low 41.0 - 53.0 % [facility] Hemoglobin (Bld) [Mass/Vol] 8.4 g/dL Low 13.9 - 16.3 g/dL [facility] Interpretation and review of laboratory results Abnormal [facility] MCH (RBC) [Entitic mass] 30.1 pg 26.0 - 34.0 pg [facility] MCHC (RBC) [Mass/Vol] 31.7 g/dL Low 32.0 - 35.9 g/dL [facility] MCV (RBC) [Entitic vol] 95 fL 80 - 100 fL [facility] Platelet mean volume (Bld) [Entitic vol] 8.8 fL 7.5 - 11.2 fL [facility] Platelets (Bld) [#/Vol] 172 10*3/uL 150 - 400 K/uL [facility] RBC (Bld) [#/Vol] 2.80 10*6/uL Low [facility] WBC (Bld) [#/Vol] 6.1 10*3/uL 4.5 - 11.5 K/uL [facility] COMPLETE BLOOD COUNTon 05-11 Erythrocyte distribution width (RBC) [Ratio] 20.2 % High 11.5-14.5 [facility] Comment on above: Performed By: #### C BC ####[facility] PATHOLOGY [id number] [place] [address], Hematocrit (Bld) [Volume fraction] 26.6 % Low 41.0-53.0 [facility] Comment on above: Performed By: #### C BC ####S PATHOLOGY [id number] [place], Hemoglobin (Bld) [Mass/Vol] 8.4 g/dL Low 13.9-16.3 [facility] Comment on above: Performed By: #### C BC ####S PATHOLOGY [id number] [place] [address], MCH (RBC) [Entitic mass] 30.1 pg Normal 26.0-34.0 [facility] Comment on above: Performed By: #### C BC ####S PATHOLOGY [id number] [place], MCHC (RBC) [Mass/Vol] 31.7 g/dL Low 32.0-35.9 [facility] Comment on above: Performed By: #### C BC ####[facility] PATHOLOGY [id number] [place], MCV (RBC) [Entitic vol] 95 fL Normal 80-100 [facility] Comment on above: Performed By: #### C BC ####[facility] PATHOLOGY [id number] [place], Platelet mean volume (Bld) [Entitic vol] 8.8 fL Normal 7.5-11.2 [facility] Comment on above: Performed By: #### C BC ####[facility] PATHOLOGY [id number] [place], Platelets (Bld) [#/Vol] 172 10*3/uL Normal 150-400 [facility] Comment on above: Performed By: #### C BC ####[facility] PATHOLOGY [id number] [place], RBC (Bld) [#/Vol] 2.80 10*6/uL Low 4.50-5.90 [facility] Comment on above: Performed By: #### C BC ####[facility] PATHOLOGY [id number] [place], WBC (Bld) [#/Vol] 6.1 10*3/uL Normal 4.5-11.5 [facility] Comment on above: Performed By: #### C BC ####[facility] PATHOLOGY [id number] [place] [address], Consultson 05-11-2024 Securities Adviser Authentication Interface Message Text TICU OT Attempted OT visit, patient having HD at bedside. Will continue established POC at next available opportunity. Jodee Potts MOT, OTR/L Secure chat with questions Normal [facility] Securities Adviser Authentication Interface Message Text PHYSICAL THERAPY Attempted to see patient for PT visit this date. Patient on hold this date. Patient having episodes of hypotension this morning and is now getting dialysis. Will cont PT per POC and follow up as able. Ping Bains PT Normal [facility] Securities Adviser Authentication Interface Message Text Normal [facility] GLUCOSE, FINGERSTICK-IN OFFI CEon 05-11-2024 Glucose [Mass/Vol] 119 mg/dL High 74 - 109 mg/dL [facility] Interpretation and review of laboratory results Abnormal [facility] Glucose [Mass/Vol] 119 mg/dL High 74-109 [facility] Comment on above: Performed By: #### 8 2948 ####NURSING GLUCOSE [id number] [place], [address] Glucose [Mass/Vol] 245 mg/dL High 74-109 [facility] Comment on above: Performed By: #### 8 2948 ####NURSING GLUCOSE HETZRKZ4621 [place], [address] Interpretation and review of laboratory results Abnormal [facility] Glucose [Mass/Vol] 132 mg/dL High 74 - 109 mg/dL [facility] Interpretation and review of laboratory results Abnormal [facility] Glucose [Mass/Vol] 132 mg/dL High 74-109 [facility] Comment on above: Performed By: #### 8 2948 ####NURSING GLUCOSE COOFGHO5298 [place], [address] Glucose [Mass/Vol] 129 mg/dL High 74 - 109 mg/dL [facility] Interpretation and review of laboratory results Abnormal [facility] Glucose [Mass/Vol] 129 mg/dL High 74-109 [facility] Comment on above: Result Comment: Mateo dai RN, APN, MD Performed By: #### 8 9232 ####NURSING GLUCOSE ECUKWKR4651 [place], [address] MAGNESIUMon 05-11-2024 Magnesium [Mass/Vol] 2.2 mg/dL 1.9 - 2 .7 mg/dL [facility] Magnesium [Mass/Vol] 2.2 mg/dL Normal 1.9-2.7 [facility] Comment on above: Performed By: #### M JULIETTE Tsang PHOS ####[facility] PATHOLOGY [id number] [place], [address] No Panel Informationon 05-11 Interpretation and review of laboratory results Normal [facility] PHOSPHORUSon 05-11-2024 Phosphate [Mass/Vol] 3.5 mg/dL 2.5 - 5 .0 mg/dL [facility] Phosphate [Mass/Vol] 3.5 mg/dL Normal 2.5-5.0 [facility] Comment on above: Performed By: #### M G CH8, PHOS ####[facility] PATHOLOGY [id number] [place], Progress Noteson 05-11-2024 Securities Adviser Authentication Interface Message Text Normal [facility] Securities Adviser Authentication Interface Message Text Normal [facility] Securities Adviser Authentication Interface Message Text Normal [facility] ANTIMICROSOMAL ANTIBODYon Interpretation and review of laboratory results Normal [facility] TPO Ab Qn 0.60 [IU]/mL NINF [facility] MICRSML AB 0.60 IU/mL Normal <=9.00 [facility] Comment on above: Performed By: #### M ICRSML AB ####[facility] PATHOLOGY [id number] [place], BASIC METABOLIC PANELon 04-15 Anion gap [Moles/Vol] 13 mmol/L Normal 10-20 [facility] Comment on above: Performed By: #### C H8, MG, PHOS, HEPATIC ####[facility] PATHOLOGY [id number] [place], Calcium [Mass/Vol] 7.7 mg/dL Low 8.6-10.3 [facility] Comment on above: Performed By: #### Charity H8, MG, PHOS, HEPATIC ####[facility] [id number] [place], Chloride [Moles/Vol] 100 mmol/L Normal 98-107 [facility] Comment on above: Performed By: #### Charity H8, MG, PHOS, HEPATIC ####[facility] [id number] [place], CO2 [Moles/Vol] 25 mmol/L Normal 21-31 [facility] Comment on above: Performed By: #### Charity H8, MG, PHOS, HEPATIC ####[facility] PATH[facility] [id number] [place], Creatinine [Mass/Vol] 3.60 mg/dL High 0.70-1.30 [facility] Comment on above: Performed By: #### C H8, MG, PHOS, HEPATIC ####[facility] PATH[facility] [id number] [place], ESTIMATED GFR (CKD-EPI) 19 mL/min/1.73sqm Low >=60 [facility] Comment on above: Result Comment: 2020 CKD EPI Equation using Creatinine without RaceComment: Estimated glomerular filtration rate (eGFR) is calculated without a race coefficient. Values should be interpreted in the context of the patient's full clinical presentation.Reference:1. Christophe C, Sagrario M, Gena YUAN, et al.. A Unifying Approach for GFR Estimation: Recommendations of the NKF-ASN Task Force on Reassessing the Inclusion of Race in Diagnosing Kidney Disease. [place] Journal of Kidney Diseases 2021;79(2):268-88.e1.2. N Engl J Med 2020 Vol. 385 Issue 19 Pages 4185-6542 Performed By: #### C H8, MG, PHOS, HEPATIC ####[facility] [id number] [place], Glucose [Mass/Vol] 214 mg/dL High 74-109 [facility] Comment on above: Performed By: #### C H8, MG, PHOS, HEPATIC ####[facility] PATH[facility] [id number] [place], Potassium [Moles/Vol] 4.4 mmol/L Normal 3.5-5.0 [facility] Comment on above: Performed By: #### C H8, MG, PHOS, HEPATIC ####[facility] PATH[facility] [id number] [place], Sodium [Moles/Vol] 134 mmol/L Low 136-145 [facility] Comment on above: Performed By: #### C H8, MG, PHOS, HEPATIC ####[facility] PATH[facility] [id number] [place], Urea nitrogen [Mass/Vol] 32 mg/dL High 7-25 [facility] Comment on above: Performed By: #### C H8, MG, PHOS, HEPATIC ####[facility] PATH[facility] [id number] [place], [address] Basic metabolic 2000 panelon 05-10-2024 Anion gap [Moles/Vol] 13 mmol/L 10 - 20 Met [facility] Calcium [Mass/Vol] 7.7 mg/dL Low 8.6 - 10. 3 mg/dL [facility] Chloride [Moles/Vol] 100 mmol/L 98 - 10 7 mmol/L [facility] CO2 [Moles/Vol] 25 mmol/L 21 - 31 mmol/L [facility] Creatinine [Mass/Vol] 3.60 mg/dL High 0.70 - 1.30 mg/dL [facility] GFR/1.73 sq M.predicted CKD-EPI (S/P/Bld) [Vol rate/Area] 19 Low - PINF [facility] Glucose [Mass/Vol] 214 mg/dL High 74 - 109 mg/dL [facility] Interpretation and review of laboratory results Abnormal [facility] Potassium [Moles/Vol] 4.4 mmol/L 3.5 - 5.0 mmol/L [facility] Sodium [Moles/Vol] 134 mmol/L Low 136 - 145 mmol/L [facility] Urea nitrogen [Mass/Vol] 32 mg/dL High 7 - 25 mg/dL [facility] CBC panel Auto (Bld)on 05-10 Erythrocyte distribution width (RBC) [Ratio] 20.2 % High 11.5 - 14.5 % [facility] Hematocrit (Bld) [Volume fraction] 26.1 % Low 41.0 - 53.0 % [facility] Hemoglobin (Bld) [Mass/Vol] 8.4 g/dL Low 13.9 - 16.3 g/dL [facility] Interpretation and review of laboratory results Abnormal [facility] MCH (RBC) [Entitic mass] 30.2 pg 26.0 - 34.0 pg [facility] MCHC (RBC) [Mass/Vol] 32.3 g/dL 32.0 - 35.9 g/dL [facility] MCV (RBC) [Entitic vol] 94 fL 80 - 100 fL [facility] Platelet mean volume (Bld) [Entitic vol] 8.8 fL 7.5 - 11.2 fL [facility] Platelets (Bld) [#/Vol] 178 10*3/uL 150 - 400 K/uL [facility] RBC (Bld) [#/Vol] 2.80 10*6/uL Low [facility] WBC (Bld) [#/Vol] 8.5 10*3/uL 4.5 - 11.5 K/uL [facility] COMPLETE BLOOD COUNTon 05-10 Erythrocyte distribution width (RBC) [Ratio] 20.2 % High 11.5-14.5 [facility] Comment on above: Performed By: #### C BC ####[facility] PATHOLOGY [id number] [place], Hematocrit (Bld) [Volume fraction] 26.1 % Low 41.0-53.0 [facility] Comment on above: Performed By: #### C BC ####[facility] PATHOLOGY [id number] [place], Hemoglobin (Bld) [Mass/Vol] 8.4 g/dL Low 13.9-16.3 [facility] Comment on above: Performed By: #### C BC ####[facility] PATHOLOGY [id number] [place], MCH (RBC) [Entitic mass] 30.2 pg Normal 26.0-34.0 [facility] Comment on above: Performed By: #### C BC ####[facility] PATHOLOGY [id number] [place], MCHC (RBC) [Mass/Vol] 32.3 g/dL Normal 32.0-35.9 [facility] Comment on above: Performed By: #### C BC ####S PATHOLOGY [id number] [place], MCV (RBC) [Entitic vol] 94 fL Normal 80-100 [facility] Comment on above: Performed By: #### C BC ####S PATHOLOGY [id number] [place], Platelet mean volume (Bld) [Entitic vol] 8.8 fL Normal 7.5-11.2 [facility] Comment on above: Performed By: #### C BC ####S PATHOLOGY [id number] [place], Platelets (Bld) [#/Vol] 178 10*3/uL Normal 150-400 [facility] Comment on above: Performed By: #### C BC ####S PATHOLOGY [id number] [place], RBC (Bld) [#/Vol] 2.80 10*6/uL Low 4.50-5.90 [facility] Comment on above: Performed By: #### C BC ####[facility] PATHOLOGY [id number] [place], WBC (Bld) [#/Vol] 8.5 10*3/uL Normal 4.5-11.5 [facility] Comment on above: Performed By: #### C BC ####[facility] PATHOLOGY [id number] [place], GLUCOSE, FINGERSTICK-IN OFFI CEon 05-10-2024 Glucose [Mass/Vol] 282 mg/dL High 74 - 109 mg/dL [facility] Interpretation and review of laboratory results Abnormal [facility] Glucose [Mass/Vol] 282 mg/dL High 74-109 [facility] Comment on above: Performed By: #### 8 2948 ####NURSING GLUCOSE THFTYCE1077 [place], [address] Glucose [Mass/Vol] 260 mg/dL High 74 - 109 mg/dL [facility] Interpretation and review of laboratory results Abnormal [facility] Glucose [Mass/Vol] 260 mg/dL High 74-109 [facility] Comment on above: Performed By: #### 8 2948 ####NURSING GLUCOSE [id number] [place], [address] Glucose [Mass/Vol] 185 mg/dL High 74 - 109 mg/dL [facility] Interpretation and review of laboratory results Abnormal [facility] Glucose [Mass/Vol] 185 mg/dL High 74-109 [facility] Comment on above: Performed By: #### 8 2948 ####NURSING GLUCOSE [id number] [place] [address] [place], [address] Glucose [Mass/Vol] 190 mg/dL High 74 - 109 mg/dL [facility] Interpretation and review of laboratory results Abnormal [facility] Glucose [Mass/Vol] 190 mg/dL High 74-109 [facility] Comment on above: Performed By: #### 8 2948 ####NURSING GLUCOSE RSOURPO[address] [place] [address], [address] HEPATIC FUNCTION PANELon Albumin [Mass/Vol] 2.6 g/dL Low 3.5 - 5.7 g/dL [facility] ALP [Catalytic activity/Vol] 65 U/L [facility] ALT [Catalytic activity/Vol] 5 U/L Low [facility] AST [Catalytic activity/Vol] 63 U/L High [facility] Bilirubin [Mass/Vol] 0.7 mg/dL 0.3 - 1 .0 mg/dL [facility] Bilirubin.direct [Mass/Vol] 0.27 mg/dL High 0.03 - 0.18 mg/dL [facility] Interpretation and review of laboratory results Abnormal [facility] Protein [Mass/Vol] 5.1 g/dL Low 6.0 - 8.3 g/dL [facility] Albumin [Mass/Vol] 2.6 g/dL Low 3.5-5.7 [facility] Comment on above: Performed By: #### C H8, MG, PHOS, HEPATIC ####[facility] PATHOLOG[facility] [id number] [place] [address], ALK 65 IU/L Normal 34-104 [facility] Comment on above: Performed By: #### C H8, MG, PHOS, HEPATIC ####[facility] PATH[facility] [id number] [place], ALT [Catalytic activity/Vol] 5 U/L Low 7-52 [facility] Comment on above: Performed By: #### C H8, MG, PHOS, HEPATIC ####[facility] PATH[facility] [id number] [place], AST [Catalytic activity/Vol] 63 U/L High 13-39 [facility] Comment on above: Performed By: #### C H8, MG, PHOS, HEPATIC ####[facility] PATHOLOG[facility] [id number] [place], Bilirubin [Mass/Vol] 0.7 mg/dL Normal 0.3-1.0 [facility] Comment on above: Performed By: #### C H8, MG, PHOS, HEPATIC ####[facility] PATHOLOGY ERQLUJZJGY7403 [place], Bilirubin.direct [Mass/Vol] 0.27 mg/dL High 0.03-0.18 [facility] Comment on above: Performed By: #### C H8, MG, PHOS, HEPATIC ####[facility] PATHOLOG[facility] [id number] [place], Protein [Mass/Vol] 5.1 g/dL Low 6.0-8.3 [facility] Comment on above: Performed By: #### C H8, MG, PHOS, HEPATIC ####[facility] PATHOLOG[facility] [id number] [place], Laboratory - Blood bankon ABO and Rh group Nom (Bld) Blood group A Rh(D) positive [facility] MAGNESIUMon 05-10-2024 Magnesium [Mass/Vol] 2.1 mg/dL 1.9 - 2 .7 mg/dL [facility] Magnesium [Mass/Vol] 2.1 mg/dL Normal 1.9-2.7 [facility] Comment on above: Performed By: #### C H8, MG, PHOS, HEPATIC ####[facility] PATHOLOGY [id number] [place], No Panel Informationon 05-10 Interpretation and review of laboratory results Normal [facility] PHOSPHORUSon 05-10-2024 Phosphate [Mass/Vol] 3.6 mg/dL 2.5 - 5 .0 mg/dL [facility] Phosphate [Mass/Vol] 3.6 mg/dL Normal 2.5-5.0 [facility] Comment on above: Performed By: #### C H8, MG, PHOS, HEPATIC ####[facility] PATHOLOG[facility] [id number] [place], Progress Noteson 05-10-2024 Securities Adviser Authentication Interface Message Text Normal [facility] Securities Adviser Authentication Interface Message Text Normal [facility] Securities Adviser Authentication Interface Message Text Normal [facility] RED BLOOD CELL UNIT STATUSon 05-10-2024 Blood Product Code [id number] [facility] ealt Blood Product Description Red Blood Cells [facility] Blood product unit Nom (BPU) [ID] [id number] [facility] Blood Product Unit Type 6200 [facility] Major crossmatch [Interp] Compatible (E) [facility] Status Transfused [facility] TYPE AND SCREENon 05-10-2024 Blood group antibody screen Ql Negative [facility] ABO and Rh group Nom (Bld) Blood group A Rh(D) positive Normal [facility] Comment on above: Performed By: #### T S ####[facility] PATHOLOG[facility] [id number] [place], ABSC INT Negative Normal [facility] Comment on above: Performed By: #### T S ####S PATHOLOGY [id number] [place], BASIC METABOLIC PANELon 04-15 Anion gap [Moles/Vol] 17 mmol/L Normal 10-20 [facility] Comment on above: Performed By: #### P HOS, CH8, VITB12, MG, TSH HS ####[facility] PATH[facility] MYBERHPIKT7503 [place], Calcium [Mass/Vol] 7.5 mg/dL Low 8.6-10.3 [facility] Comment on above: Performed By: #### P HOS, CH8, VITB12, MG, TSH HS ####[facility] PATH[facility] [id number] [place], Chloride [Moles/Vol] 99 mmol/L Normal 98-107 [facility] Comment on above: Performed By: #### P HOS, CH8, VITB12, MG, TSH HS ####[facility] PATHOLOGY [id number] [place], CO2 [Moles/Vol] 24 mmol/L Normal 21-31 [facility] Comment on above: Performed By: #### P HOS, CH8, VITB12, MG, TSH HS ####S PATHOLOGY [id number] [place], Creatinine [Mass/Vol] 4.57 mg/dL High 0.70-1.30 [facility] Comment on above: Performed By: #### P HOS, CH8, VITB12, MG, TSH HS ####S PATHOLOGY [id number] [place], ESTIMATED GFR (CKD-EPI) 14 mL/min/1.73sqm Low >=60 [facility] Comment on above: Result Comment: 2020 CKD EPI Equation using Creatinine without RaceComment: Estimated glomerular filtration rate (eGFR) is calculated without a race coefficient. Values should be interpreted in the context of the patient's full clinical presentation.Reference:1. Christophe C, Sagrario M, Gena DC, et al.. A Unifying Approach for GFR Estimation: Recommendations of the NKF-ASN Task Force on Reassessing the Inclusion of Race in Diagnosing Kidney Disease. [place] Journal of Kidney Diseases 2021;79(2):268-88.e1.2. N Engl J Med 2020 Vol. 385 Issue 19 Pages 6679-0258 Performed By: #### P HOS, CH8, VITB12, MG, TSH HS ####S PATHOLOGY [id number] [place], Glucose [Mass/Vol] 124 mg/dL High 74-109 [facility] Comment on above: Performed By: #### P HOS, CH8, VITB12, MG, TSH HS ####S PATHOLOGY [id number] [place], Potassium [Moles/Vol] 4.7 mmol/L Normal 3.5-5.0 [facility] Comment on above: Performed By: #### P HOS, CH8, VITB12, MG, TSH HS ####[facility] PATHOLOGY [id number] [place], Sodium [Moles/Vol] 135 mmol/L Low 136-145 [facility] Comment on above: Performed By: #### P HOS, CH8, VITB12, MG, TSH HS ####[facility] PATHOLOGY RCDHPNMOST2050 [place], Urea nitrogen [Mass/Vol] 35 mg/dL High 7-25 [facility] Comment on above: Performed By: #### P HOS, CH8, VITB12, MG, TSH HS ####[facility] PATHOLOG[facility] HMEMGHOYZJ9725 [place], Basic metabolic 2000 panelon 05-09-2024 Anion gap [Moles/Vol] 17 mmol/L 10 - 20 [facility] Calcium [Mass/Vol] 7.5 mg/dL Low 8.6 - 10. 3 mg/dL [facility] Chloride [Moles/Vol] 99 mmol/L 98 - 10 7 mmol/L [facility] CO2 [Moles/Vol] 24 mmol/L 21 - 31 mmol/L [facility] Creatinine [Mass/Vol] 4.57 mg/dL High 0.70 - 1.30 mg/dL [facility] GFR/1.73 sq M.predicted CKD-EPI (S/P/Bld) [Vol rate/Area] 14 Low - PINF [facility] Glucose [Mass/Vol] 124 mg/dL High 74 - 109 mg/dL [facility] Interpretation and review of laboratory results Abnormal [facility] Potassium [Moles/Vol] 4.7 mmol/L 3.5 - 5.0 mmol/L [facility] Sodium [Moles/Vol] 135 mmol/L Low 136 - 145 mmol/L [facility] Urea nitrogen [Mass/Vol] 35 mg/dL High 7 - 25 mg/dL [facility] CALCIUM, IONIZEDon Calcium.ionized (Bld) [Moles/Vol] 1.06 mmol/L Low 1.15 - 1.33 mmol/L [facility] Interpretation and review of laboratory results Abnormal [facility] CR ICA 1.06 mmol/L Low 1.15-1.33 [facility] Comment on above: Result Comment: This test was developed, and its performance characteristics determined by the Department of Pathology of [facility]. It has not been cleared or approved by the FDA. This test is used for clinical purposes only. Performed By: #### C R ICA ####[facility] PATHOLOGY [id number] [place], [address] CBC panel Auto (Bld)Ordered By: Andre Nayak on 05-09-2024 Erythrocyte distribution width (RBC) [Ratio] 19.4 % High 11.5 - 14.5 % [facility] Hematocrit (Bld) [Volume fraction] 26.9 % Low 41.0 - 53.0 % [facility] Hemoglobin (Bld) [Mass/Vol] 8.8 g/dL Low 13.9 - 16.3 g/dL [facility] Interpretation and review of laboratory results Abnormal [facility] MCH (RBC) [Entitic mass] 30.5 pg 26.0 - 34.0 pg [facility] MCHC (RBC) [Mass/Vol] 32.7 g/dL 32.0 - 35.9 g/dL [facility] MCV (RBC) [Entitic vol] 93 fL 80 - 100 fL [facility] Platelet mean volume (Bld) [Entitic vol] 9.0 fL 7.5 - 11.2 fL [facility] Platelets (Bld) [#/Vol] 148 10*3/uL Low 150 - 400 K/uL [facility] RBC (Bld) [#/Vol] 2.89 10*6/uL Low [facility] WBC (Bld) [#/Vol] 8.6 10*3/uL 4.5 - 11.5 K/uL [facility] CBC panel Auto (Bld)on 05-09 Erythrocyte distribution width (RBC) [Ratio] 17.1 % High 11.5 - 14.5 % [facility] Hematocrit (Bld) [Volume fraction] 20.6 % Low 41.0 - 53.0 % [facility] Hemoglobin (Bld) [Mass/Vol] 6.9 g/dL Critically low 13.9 - 16.3 g/dL [facility] Interpretation and review of laboratory results Abnormal [facility] MCH (RBC) [Entitic mass] 31.5 pg 26.0 - 34.0 pg [facility] MCHC (RBC) [Mass/Vol] 32.5 g/dL 32.0 - 35.9 g/dL [facility] MCV (RBC) [Entitic vol] 97 fL 80 - 100 fL [facility] Platelet mean volume (Bld) [Entitic vol] 9.0 fL 7.5 - 11.2 fL [facility] Platelets (Bld) [#/Vol] 151 10*3/uL 150 - 400 K/uL [facility] RBC (Bld) [#/Vol] 2.20 10*6/uL Low [facility] WBC (Bld) [#/Vol] 9.4 10*3/uL 4.5 - 11.5 K/uL [facility] COMPLETE BLOOD COUNTon 05-09 Erythrocyte distribution width (RBC) [Ratio] 19.4 % High 11.5-14.5 [facility] Comment on above: Performed By: #### C BC ####[facility] PATHOLOGY [id number] [place], Hematocrit (Bld) [Volume fraction] 26.9 % Low 41.0-53.0 [facility] Comment on above: Performed By: #### C BC ####[facility] PATHOLOGY [id number] [place], Hemoglobin (Bld) [Mass/Vol] 8.8 g/dL Low 13.9-16.3 [facility] Comment on above: Performed By: #### C BC ####[facility] PATHOLOGY [id number] [place], MCH (RBC) [Entitic mass] 30.5 pg Normal 26.0-34.0 [facility] Comment on above: Performed By: #### C BC ####[facility] PATHOLOGY [id number] [place], MCHC (RBC) [Mass/Vol] 32.7 g/dL Normal 32.0-35.9 [facility] Comment on above: Performed By: #### C BC ####[facility] PATHOLOGY [id number] [place], MCV (RBC) [Entitic vol] 93 fL Normal 80-100 [facility] Comment on above: Performed By: #### C BC ####[facility] PATHOLOGY [id number] [place], Platelet mean volume (Bld) [Entitic vol] 9.0 fL Normal 7.5-11.2 [facility] Comment on above: Performed By: #### C BC ####[facility] PATHOLOGY [id number] [place], Platelets (Bld) [#/Vol] 148 10*3/uL Low 150-400 [facility] Comment on above: Performed By: #### C BC ####[facility] PATHOLOGY [id number] [place], RBC (Bld) [#/Vol] 2.89 10*6/uL Low 4.50-5.90 [facility] Comment on above: Performed By: #### C BC ####[facility] PATHOLOGY [id number] [place], WBC (Bld) [#/Vol] 8.6 10*3/uL Normal 4.5-11.5 [facility] Comment on above: Performed By: #### C BC ####[facility] PATHOLOGY [id number] [place], Erythrocyte distribution width (RBC) [Ratio] 17.1 % High 11.5-14.5 [facility] Comment on above: Performed By: #### C BC ####[facility] PATHOLOGY [id number] [place], Hematocrit (Bld) [Volume fraction] 20.6 % Low 41.0-53.0 [facility] Comment on above: Performed By: #### C BC ####[facility] PATHOLOGY [id number] [place], Hemoglobin (Bld) [Mass/Vol] 6.9 g/dL Critically low 13.9-16.3 [facility] Comment on above: Performed By: #### C BC ####[facility] PATHOLOGY [id number] [place], MCH (RBC) [Entitic mass] 31.5 pg Normal 26.0-34.0 [facility] Comment on above: Performed By: #### C BC ####[facility] PATHOLOGY [id number] [place], MCHC (RBC) [Mass/Vol] 32.5 g/dL Normal 32.0-35.9 [facility] Comment on above: Performed By: #### C BC ####[facility] PATHOLOGY [id number] [place], MCV (RBC) [Entitic vol] 97 fL Normal 80-100 [facility] Comment on above: Performed By: #### C BC ####[facility] PATHOLOGY [id number] [place], Platelet mean volume (Bld) [Entitic vol] 9.0 fL Normal 7.5-11.2 [facility] Comment on above: Performed By: #### C BC ####[facility] PATHOLOGY [id number] [place], Platelets (Bld) [#/Vol] 151 10*3/uL Normal 150-400 [facility] Comment on above: Performed By: #### C BC ####[facility] PATHOLOGY [id number] [place], RBC (Bld) [#/Vol] 2.20 10*6/uL Low 4.50-5.90 [facility] Comment on above: Performed By: #### C BC ####[facility] PATHOLOGY [id number] [place], WBC (Bld) [#/Vol] 9.4 10*3/uL Normal 4.5-11.5 [facility] Comment on above: Performed By: #### C BC ####S PATHOLOGY [id number] [place], CORTISOL RANDOMon 05-09-2024 Cortisone [Mass/Vol] 15.8 ug/dL [facility] CORTISOL, SERUM 15.8 ug/dL Normal [facility] Comment on above: Performed By: #### C RR ####[facility] PATHOLOGY [id number] [place], Consultson 05-09-2024 Securities Adviser Authentication Interface Message Text Normal [facility] GLUCOSE, FINGERSTICK-IN OFFI CEon 05-09-2024 Glucose [Mass/Vol] 213 mg/dL High 74 - 109 mg/dL [facility] Interpretation and review of laboratory results Abnormal [facility] Glucose [Mass/Vol] 213 mg/dL High 74-109 [facility] Comment on above: Performed By: #### 8 2948 ####NURSING GLUCOSE [id number] [place] [address], [address] Glucose [Mass/Vol] 230 mg/dL High 74 - 109 mg/dL [facility] Interpretation and review of laboratory results Abnormal [facility] Glucose [Mass/Vol] 230 mg/dL High 74-109 [facility] Comment on above: Performed By: #### 8 2948 ####NURSING GLUCOSE [id number] [place], [address] Glucose [Mass/Vol] 111 mg/dL High 74 - 109 mg/dL [facility] Interpretation and review of laboratory results Abnormal [facility] Glucose [Mass/Vol] 111 mg/dL High 74-109 [facility] Comment on above: Performed By: #### 8 2948 ####NURSING GLUCOSE ZRQROYY[address] [place] [address], [address] Glucose [Mass/Vol] 126 mg/dL High 74 - 109 mg/dL [facility] Interpretation and review of laboratory results Abnormal [facility] Glucose [Mass/Vol] 126 mg/dL High 74-109 [facility] Comment on above: Performed By: #### 8 2948 ####NURSING GLUCOSE DEUASUZ[address] [place] [address], [address] MAGNESIUMon 05-09-2024 Magnesium [Mass/Vol] 2.1 mg/dL 1.9 - 2 .7 mg/dL [facility] Magnesium [Mass/Vol] 2.1 mg/dL Normal 1.9-2.7 [facility] Comment on above: Performed By: #### P HOS, CH8, VITB12, MG, TSH HS ####[facility] [id number] [place], [address] METHYLMALONIC ACIDon 024 Methylmalonate [Moles/Vol] 320 nmol/L 69 - 390 nmol/L [facility] No Panel InformationOrdered By: Caty Simon on 05-09-2024 [facility] No Panel Informationon 05-09 Interpretation and review of laboratory results Normal [facility] PHOSPHORUSon 05-09-2024 Phosphate [Mass/Vol] 4.3 mg/dL 2.5 - 5 .0 mg/dL [facility] Phosphate [Mass/Vol] 4.3 mg/dL Normal 2.5-5.0 [facility] Comment on above: Performed By: #### P HOS, CH8, VITB12, MG, TSH HS ####[facility] PATH[facility] [id number] [place], Progress Noteson 05-09-2024 Securities Adviser Authentication Interface Message Text Normal [facility] Securities Adviser Authentication Interface Message Text 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 Tx hours 3 Tolerance of tx well, no issues with VS, BP maintained, pt received Midodrine pre treatment Access functioning well, right lower arm avg Total UF 0 Post VS 37.2-66-18 139/59 Report to Ron KATHLEEN Normal The [facility] Securities Adviser Authentication Interface Message Text Normal [facility] RED BLOOD CELL COMPONENTon 1 BB Order Item Product status info to follow Normal [facility] Comment on above: Performed By: #### R VINAYAK ####[facility] PATHOLOG[facility] [id number] [place], [place], [facility] BB Order Item Product status info to follow Normal [facility] Comment on above: Performed By: #### R VINAYAK ####[facility] PATHOLOG[facility] [id number] [place], [place], [facility] RED BLOOD CELL UNIT STATUSon 05-09-2024 BLOOD PRODUCT CODE [id number] Normal [facility] Comment on above: Performed By: #### R BU ####[facility] PATHOLOG[facility] [id number] [place], BLOOD PRODUCT DESCRIPTION Red Blood Cells Normal [facility] Comment on above: Performed By: #### R BU ####[facility] PATHOLOG[facility] [id number] [place], BLOOD PRODUCT STATUS Transfused Normal [facility] Comment on above: Performed By: #### R BU ####[facility] PATHOLOG[facility] NPUEEWEAXG5128 [place], BLOOD PRODUCT UNIT INFO [id number] Normal [facility] Comment on above: Performed By: #### R BU ####[facility] PATHOLOGY [id number] [place], BLOOD PRODUCT UNIT TYPE 6200 Normal [facility] Comment on above: Result Comment: A Po s Performed By: #### R BU ####[facility] PATHOLOG[facility] [id number] [place], [employer] INTERPRETATION Compatible (E) Normal [facility] Comment on above: Performed By: #### R BU ####[facility] PATHOLOGY [id number] [place], BLOOD PRODUCT CODE [id number] Normal [facility] Comment on above: Performed By: #### R BU ####[facility] PATHOLOG[facility] [id number] [place], BLOOD PRODUCT DESCRIPTION Red Blood Cells Normal [facility] Comment on above: Performed By: #### R BU ####[facility] PATHOLOG[facility] [id number] [place], BLOOD PRODUCT STATUS Transfused Normal [facility] Comment on above: Performed By: #### R BU ####[facility] PATHOLOGY [id number] [place], BLOOD PRODUCT UNIT INFO [id number] Normal [facility] Comment on above: Performed By: #### R BU ####[facility] PATHOLOGY [id number] [place], BLOOD PRODUCT UNIT TYPE 6200 Normal [facility] Comment on above: Result Comment: A Po s Performed By: #### R BU ####[facility] PATHOLOGY ANKULCXHOC3754 [place], [employer] INTERPRETATION Compatible (E) Normal [facility] Comment on above: Performed By: #### R BU ####[facility] PATHOLOGY [id number] [place], TSHon 05-09-2024 Interpretation and review of laboratory results Abnormal [facility] TSH Qn 7.124 m[IU]/L High [facility] TSH 7.124 uIU/mL High 0.450-5.330 [facility] Comment on above: Performed By: #### P HOS, CH8, VITB12, MG, TSH HS ####S PATHOLOGY RBUWVWLWWP0148 [place], Treatment Plan Noteon 2023 Securities Adviser Authentication Interface Message Text Normal [facility] VITAMIN B12 (CYANOCOBALAMIN) on 05-09-2024 Cobalamin (Vitamin B12) [Moles/Vol] 960 pg/mL High 180 - 914 pg/mL [facility] Interpretation and review of laboratory results Abnormal [facility] Cobalamin (Vitamin B12) [Mass/Vol] 960 pg/mL High 180-914 [facility] Comment on above: Order Comment: Defic ient: <= 145 pg/mLInsufficient: 145 - 180 pg/mLSufficient: 180 - 914 pg/mL Performed By: #### P HOS, CH8, VITB12, MG, TSH HS ####S PATHOLOGY VYPIATEKOP3801 [place], BASIC METABOLIC PANELon 04-15 Anion gap [Moles/Vol] 18 mmol/L Normal 10-20 [facility] Comment on above: Performed By: #### P HOS, MG, CH8 ####[facility] PATHOLOGY [id number] [place], Calcium [Mass/Vol] 7.7 mg/dL Low 8.6-10.3 [facility] Comment on above: Performed By: #### P HOS, MG, CH8 ####[facility] PATHOLOGY VIKYPMMAGZ3069 [place], Chloride [Moles/Vol] 93 mmol/L Low 98-107 [facility] Comment on above: Performed By: #### P HOS, MG, CH8 ####[facility] PATHOLOGY PREEJUBCRA3653 [place], CO2 [Moles/Vol] 25 mmol/L Normal 21-31 [facility] Comment on above: Performed By: #### P HOS, MG, CH8 ####[facility] PATHOLOGY [id number] [place], Creatinine [Mass/Vol] 7.48 mg/dL High 0.70-1.30 [facility] Comment on above: Performed By: #### Roldan SMITH MG, CH8 ####[facility] PATHOLOGY [id number] [place], ESTIMATED GFR (CKD-EPI) 8 mL/min/1.73sqm Low >=60 [facility] Comment on above: Result Comment: 2020 CKD EPI Equation using Creatinine without RaceComment: Estimated glomerular filtration rate (eGFR) is calculated without a race coefficient. Values should be interpreted in the context of the patient's full clinical presentation.Reference:1. Christophe C, Sagrario M, Gena DC, et al.. A Unifying Approach for GFR Estimation: Recommendations of the NKF-ASN Task Force on Reassessing the Inclusion of Race in Diagnosing Kidney Disease. [place] Journal of Kidney Diseases 2021;79(2):268-88.e1.2. N Engl J Med 2020 Vol. 385 Issue 19 Pages 5891-8066 Performed By: #### P SARAH MG, CH8 ####[facility] PATHOLOG[facility] YNUNFUGIGK5147 [place], Glucose [Mass/Vol] 112 mg/dL High 74-109 [facility] Comment on above: Performed By: #### Roldan SMITH MG, CH8 ####[facility] PATHOLOGY OBMLEKPMGD7146 [place], Potassium [Moles/Vol] 4.8 mmol/L Normal 3.5-5.0 [facility] Comment on above: Performed By: #### P HOS MG, CH8 ####[facility] PATHOLOGY [id number] [place], Sodium [Moles/Vol] 131 mmol/L Low 136-145 [facility] Comment on above: Performed By: #### P HOS MG, CH8 ####[facility] PATHOLOGY QFINNIRFNV4527 [place], Urea nitrogen [Mass/Vol] 63 mg/dL High 7-25 [facility] Comment on above: Performed By: #### P HOS, MG, CH8 ####[facility] PATHOLOGY HVTZDQWZKD0729 [place], [address] Basic metabolic 2000 panelon 05-08-2024 Anion gap [Moles/Vol] 18 mmol/L 10 - 20 [facility] Calcium [Mass/Vol] 7.7 mg/dL Low 8.6 - 10. 3 mg/dL [facility] Chloride [Moles/Vol] 93 mmol/L Low 98 - 10 7 mmol/L [facility] CO2 [Moles/Vol] 25 mmol/L 21 - 31 mmol/L [facility] Creatinine [Mass/Vol] 7.48 mg/dL High 0.70 - 1.30 mg/dL [facility] GFR/1.73 sq M.predicted CKD-EPI (S/P/Bld) [Vol rate/Area] 8 Low - PINF [facility] Glucose [Mass/Vol] 112 mg/dL High 74 - 109 mg/dL [facility] Potassium [Moles/Vol] 4.8 mmol/L 3.5 - 5.0 mmol/L [facility] Sodium [Moles/Vol] 131 mmol/L Low 136 - 145 mmol/L [facility] Urea nitrogen [Mass/Vol] 63 mg/dL High 7 - 25 mg/dL [facility] CBC panel Auto (Bld)on 05-08 Erythrocyte distribution width (RBC) [Ratio] 16.3 % High 11.5 - 14.5 % [facility] Hematocrit (Bld) [Volume fraction] 22.5 % Low 41.0 - 53.0 % [facility] Hemoglobin (Bld) [Mass/Vol] 7.6 g/dL Low 13.9 - 16.3 g/dL [facility] Interpretation and review of laboratory results Abnormal [facility] MCH (RBC) [Entitic mass] 32.4 pg 26.0 - 34.0 pg [facility] MCHC (RBC) [Mass/Vol] 33.9 g/dL 32.0 - 35.9 g/dL [facility] MCV (RBC) [Entitic vol] 96 fL 80 - 100 fL [facility] Platelet mean volume (Bld) [Entitic vol] 9.2 fL 7.5 - 11.2 fL [facility] Platelets (Bld) [#/Vol] 155 10*3/uL 150 - 400 K/uL [facility] RBC (Bld) [#/Vol] 2.35 10*6/uL Low [facility] WBC (Bld) [#/Vol] 9.2 10*3/uL 4.5 - 11.5 K/uL [facility] COMPLETE BLOOD COUNTon 05-08 Erythrocyte distribution width (RBC) [Ratio] 16.3 % High 11.5-14.5 [facility] Comment on above: Performed By: #### C BC ####[facility] PATHOLOGY [id number] [place] [address], Hematocrit (Bld) [Volume fraction] 22.5 % Low 41.0-53.0 [facility] Comment on above: Performed By: #### C BC ####[facility] PATHOLOGY [id number] [place] [address], Hemoglobin (Bld) [Mass/Vol] 7.6 g/dL Low 13.9-16.3 [facility] Comment on above: Performed By: #### C BC ####[facility] PATHOLOGY [id number] [place] [address], MCH (RBC) [Entitic mass] 32.4 pg Normal 26.0-34.0 [facility] Comment on above: Performed By: #### C BC ####[facility] PATHOLOGY [id number] [place] [address], MCHC (RBC) [Mass/Vol] 33.9 g/dL Normal 32.0-35.9 [facility] Comment on above: Performed By: #### C BC ####[facility] PATHOLOGY [id number] [place] [address], MCV (RBC) [Entitic vol] 96 fL Normal 80-100 [facility] Comment on above: Performed By: #### C BC ####[facility] PATHOLOGY [id number] [place] [address], Platelet mean volume (Bld) [Entitic vol] 9.2 fL Normal 7.5-11.2 [facility] Comment on above: Performed By: #### C BC ####[facility] PATHOLOGY STDNUWUMIZ[address] [place] [address], Platelets (Bld) [#/Vol] 155 10*3/uL Normal 150-400 [facility] Comment on above: Performed By: #### C BC ####[facility] PATHOLOGY [id number] [place], RBC (Bld) [#/Vol] 2.35 10*6/uL Low 4.50-5.90 [facility] Comment on above: Performed By: #### C BC ####[facility] PATHOLOGY [id number] [place], WBC (Bld) [#/Vol] 9.2 10*3/uL Normal 4.5-11.5 [facility] Comment on above: Performed By: #### C BC ####[facility] PATHOLOGY SAYTJSGFMX1475 [place], Consultson 05-08-2024 Securities Adviser Authentication Interface Message Text Normal [facility] E[facility] 12 LEAD - PERFORMon 04-15 Diagnosis [facility] wave [facility] Q-T interval corrected 567 ms [facility] QRS axis -10 degrees [facility] QRS duration 166 ms [facility] T wave axis -12 degrees [facility] GLUCOSE, FINGERSTICK-IN OFFI CEon 05-08-2024 Glucose [Mass/Vol] 138 mg/dL High 74 - 109 mg/dL [facility] Glucose [Mass/Vol] 138 mg/dL High 74-109 [facility] Comment on above: Performed By: #### 8 0806 ####NURSING GLUCOSE [id number] [place], [address] Glucose [Mass/Vol] 131 mg/dL High 74-109 [facility] Comment on above: Performed By: #### 8 6347 ####NURSING GLUCOSE [id number] [place], [address] Glucose [Mass/Vol] 126 mg/dL High 74 - 109 mg/dL [facility] Interpretation and review of laboratory results Abnormal [facility] Glucose [Mass/Vol] 126 mg/dL High 74-109 [facility] Comment on above: Performed By: #### 8 6842 ####NURSING GLUCOSE VIJUPJA9721 [place], [address] Glucose [Mass/Vol] 118 mg/dL High 74 - 109 mg/dL [facility] Interpretation and review of laboratory results Abnormal [facility] Glucose [Mass/Vol] 118 mg/dL High 74-109 [facility] Comment on above: Result Comment: Mateo dai RN, APN, MD Performed By: #### 8 4418 ####NURSING GLUCOSE NVIXNXG3281 [place], [address] MAGNESIUMon 05-08-2024 Interpretation and review of laboratory results Normal [facility] Magnesium [Mass/Vol] 2.5 mg/dL 1.9 - 2 .7 mg/dL [facility] Magnesium [Mass/Vol] 2.5 mg/dL Normal 1.9-2.7 [facility] Comment on above: Performed By: #### P HOS MG, CH8 ####[facility] PATHOLOGY VVOKAMSZHM5495 [place], No Panel Informationon 05-08 Interpretation and review of laboratory results Abnormal [facility] Interpretation and review of laboratory results Abnormal [facility] PHOSPHORUSon 05-08-2024 Phosphate [Mass/Vol] 6.5 mg/dL High 2.5 - 5 .0 mg/dL [facility] Phosphate [Mass/Vol] 6.5 mg/dL High 2.5-5.0 [facility] Comment on above: Performed By: #### P HOS, MG, CH8 ####[facility] PATHOLOGY [id number] [place], Progress Noteson 05-08-2024 Securities Adviser Authentication Interface Message Text Normal [facility] Securities Adviser Authentication Interface Message Text Normal [facility] Securities Adviser Authentication Interface Message Text Normal [facility] Securities Adviser Authentication Interface Message Text Normal [facility] Securities Adviser Authentication Interface Message Text Normal [facility] BASIC METABOLIC PANELon 04-15 Anion gap [Moles/Vol] 19 mmol/L Normal 10-20 [facility] Comment on above: Performed By: #### M G, CH8, PHOS ####[facility] PATHOLOGY [id number] [place], Calcium [Mass/Vol] 7.8 mg/dL Low 8.6-10.3 [facility] Comment on above: Performed By: ###JULIETTE Carter PHOS ####[facility] PATHOLOGY [id number] [place], Chloride [Moles/Vol] 94 mmol/L Low 98-107 [facility] Comment on above: Performed By: ###JULIETTE Carter, DEANNAS ####[facility] PATHOLOGY JPUYAFBCQS8958 [place], CO2 [Moles/Vol] 24 mmol/L Normal 21-31 [facility] Comment on above: Performed By: ###JULIETTE Carter, DEANNAS ####[facility] PATHOLOGY [id number] [place], Creatinine [Mass/Vol] 6.91 mg/dL High 0.70-1.30 [facility] Comment on above: Performed By: ###JULIETTE Carter, DEANNAS ####[facility] PATHOLOGY [id number] [place], ESTIMATED GFR (CKD-EPI) 8 mL/min/1.73sqm Low >=60 [facility] Comment on above: Result Comment: 2020 CKD EPI Equation using Creatinine without RaceComment: Estimated glomerular filtration rate (eGFR) is calculated without a race coefficient. Values should be interpreted in the context of the patient's full clinical presentation.Reference:1. Christophe C, Sagrario M, Gena YUAN, et al.. A Unifying Approach for GFR Estimation: Recommendations of the NKF-ASN Task Force on Reassessing the Inclusion of Race in Diagnosing Kidney Disease. [place] Journal of Kidney Diseases 2021;79(2):268-88.e1.2. N Engl J Med 1 Vol. 385 Issue 19 Pages 9415-3311 Performed By: ###JULIETTE Carter PHOS ####[facility] PATHOLOGY [id number] [place], Glucose [Mass/Vol] 99 mg/dL Normal 74-109 [facility] Comment on above: Performed By: #### JULIETTE Smith, TANNER ####[facility] PATHOLOGY RPUHXMWFOY3640 [place], Potassium [Moles/Vol] 4.6 mmol/L Normal 3.5-5.0 [facility] Comment on above: Performed By: #### JULIETTE Smith, TANNER ####[facility] PATHOLOGY AOWIAQMNAL6267 [place], Sodium [Moles/Vol] 132 mmol/L Low 136-145 [facility] Comment on above: Performed By: #### JULIETTE Smith, TANNER ####[facility] PATHOLOGY XDYHTNYGSG6637 [place], Urea nitrogen [Mass/Vol] 55 mg/dL High 7-25 [facility] Comment on above: Performed By: #### JULIETTE Smith, TANNER ####[facility] PATHOLOGY TMAJLKELQU9815 [place], Basic metabolic 2000 panelon 05-07-2024 Anion gap [Moles/Vol] 19 mmol/L - [facility] Calcium [Mass/Vol] 7.8 mg/dL Low 8.6 - 10. 3 mg/dL [facility] Chloride [Moles/Vol] 94 mmol/L Low 98 - 10 7 mmol/L [facility] CO2 [Moles/Vol] 24 mmol/L 21 - 31 mmol/L [facility] Creatinine [Mass/Vol] 6.91 mg/dL High 0.70 - 1.30 mg/dL [facility] GFR/1.73 sq M.predicted CKD-EPI (S/P/Bld) [Vol rate/Area] 8 Low - PINF [facility] Glucose [Mass/Vol] 99 mg/dL 74 - 109 mg/dL [facility] Interpretation and review of laboratory results Abnormal [facility] Potassium [Moles/Vol] 4.6 mmol/L 3.5 - 5.0 mmol/L [facility] Sodium [Moles/Vol] 132 mmol/L Low 136 - 145 mmol/L [facility] Urea nitrogen [Mass/Vol] 55 mg/dL High 7 - 25 mg/dL [facility] CBC panel Auto (Bld)on 05-07 Erythrocyte distribution width (RBC) [Ratio] 16.1 % High 11.5 - 14.5 % [facility] Hematocrit (Bld) [Volume fraction] 23.0 % Low 41.0 - 53.0 % [facility] Hemoglobin (Bld) [Mass/Vol] 7.4 g/dL Low 13.9 - 16.3 g/dL [facility] Interpretation and review of laboratory results Abnormal [facility] MCH (RBC) [Entitic mass] 31.0 pg 26.0 - 34.0 pg [facility] MCHC (RBC) [Mass/Vol] 32.3 g/dL 32.0 - 35.9 g/dL [facility] MCV (RBC) [Entitic vol] 96 fL 80 - 100 fL [facility] Platelet mean volume (Bld) [Entitic vol] 9.3 fL 7.5 - 11.2 fL [facility] Platelets (Bld) [#/Vol] 116 10*3/uL Low 150 - 400 K/uL [facility] RBC (Bld) [#/Vol] 2.40 10*6/uL Low [facility] WBC (Bld) [#/Vol] 7.1 10*3/uL 4.5 - 11.5 K/uL [facility] COMPLETE BLOOD COUNTon 05-07 Erythrocyte distribution width (RBC) [Ratio] 16.1 % High 11.5-14.5 [facility] Comment on above: Performed By: #### C BC ####[facility] PATHOLOGY [id number] [place], Hematocrit (Bld) [Volume fraction] 23.0 % Low 41.0-53.0 [facility] Comment on above: Performed By: #### C BC ####[facility] PATHOLOGY [id number] [place], Hemoglobin (Bld) [Mass/Vol] 7.4 g/dL Low 13.9-16.3 [facility] Comment on above: Performed By: #### C BC ####S PATHOLOGY JHIKPJLEHO1936 [place], MCH (RBC) [Entitic mass] 31.0 pg Normal 26.0-34.0 [facility] Comment on above: Performed By: #### C BC ####S PATHOLOGY [id number] [place], MCHC (RBC) [Mass/Vol] 32.3 g/dL Normal 32.0-35.9 [facility] Comment on above: Performed By: #### C BC ####S PATHOLOGY NBTNFSMIFR2647 [place], MCV (RBC) [Entitic vol] 96 fL Normal 80-100 [facility] Comment on above: Performed By: #### C BC ####S PATHOLOGY [id number] [place], Platelet mean volume (Bld) [Entitic vol] 9.3 fL Normal 7.5-11.2 [facility] Comment on above: Performed By: #### C BC ####[facility] PATHOLOGY [id number] [place], Platelets (Bld) [#/Vol] 116 10*3/uL Low 150-400 [facility] Comment on above: Performed By: #### C BC ####[facility] PATHOLOGY [id number] [place], RBC (Bld) [#/Vol] 2.40 10*6/uL Low 4.50-5.90 [facility] Comment on above: Performed By: #### C BC ####[facility] PATHOLOGY [id number] [place], WBC (Bld) [#/Vol] 7.1 10*3/uL Normal 4.5-11.5 [facility] Comment on above: Performed By: #### C BC ####S PATHOLOGY [id number] [place], EKG 12 LEAD - PERFORMon 04-15 Diagnosis [facility] P wave [facility] by E[facility] 67 BPM [facility] P wave axis -8 degrees [facility] P-R Interval 186 ms [facility] Q-T interval 488 ms [facility] Q-T interval corrected 515 ms [facility] QRS axis -19 degrees [facility] QRS duration 174 ms [facility] T wave axis -15 degrees [facility] GLUCOSE, FINGERSTICK-IN OFFI CEon 05-07-2024 Glucose [Mass/Vol] 165 mg/dL High 74 - 109 mg/dL [facility] Interpretation and review of laboratory results Abnormal [facility] Glucose [Mass/Vol] 165 mg/dL High 74-109 [facility] Comment on above: Performed By: #### 8 2948 ####NURSING GLUCOSE NIOSFNW8584 [place], [address] Glucose [Mass/Vol] 153 mg/dL High 74 - 109 mg/dL [facility] Interpretation and review of laboratory results [facility] Glucose [Mass/Vol] 153 mg/dL High 74-109 [facility] Comment on above: Performed By: #### 8 2948 ####NURSING GLUCOSE YEYTSOO4001 [place], [address] Glucose [Mass/Vol] 145 mg/dL High 74 - 109 mg/dL [facility] Interpretation and review of laboratory results Abnormal [facility] Glucose [Mass/Vol] 145 mg/dL High 74-109 [facility] Comment on above: Performed By: #### 8 2948 ####NURSING GLUCOSE IRNAOMD6069 [place], [address] Glucose [Mass/Vol] 111 mg/dL High 74 - 109 mg/dL [facility] Interpretation and review of laboratory results Abnormal [facility] Glucose [Mass/Vol] 111 mg/dL High 74-109 [facility] Comment on above: Performed By: #### 8 2948 ####NURSING GLUCOSE QYSNVQS42[address] [place] [address], [address] MAGNESIUMon 05-07-2024 Interpretation and review of laboratory results Normal [facility] Magnesium [Mass/Vol] 2.2 mg/dL 1.9 - 2 .7 mg/dL [facility] Magnesium [Mass/Vol] 2.2 mg/dL Normal 1.9-2.7 [facility] Comment on above: Performed By: #### M JULIETTE Tsang PHOS ####[facility] PATHOLOGY [id number] [place], [address] No Panel Informationon 05-07 [facility] PHOSPHORUSon 05-07-2024 Interpretation and review of laboratory results Abnormal [facility] Phosphate [Mass/Vol] 6.7 mg/dL High 2.5 - 5 .0 mg/dL [facility] Phosphate [Mass/Vol] 6.7 mg/dL High 2.5-5.0 [facility] Comment on above: Performed By: #### JULIETTE Smith, DEANNAS ####[facility] PATHOLOGY XCMRYUEWYZ4341 [place], Progress Noteson 05-07-2024 Securities Adviser Authentication Interface Message Text Normal [facility] Securities Adviser Authentication Interface Message Text 13 minutes of HD completed, patient moved arm over head and infiltrated venous needle, unable to recannulate, no fluid was removed, net positive 200 mLs. Normal [facility] Securities Adviser Authentication Interface Message Text Normal [facility] RED BLOOD CELL UNIT STATUSon 05-07-2024 Blood Product Code [id number] [facility] ealt Blood Product Description Red Blood Cells [facility] Blood product unit Nom (BPU) [ID] [id number] [facility] Blood Product Unit Type 6200 [facility] Major crossmatch [Interp] Compatible (E) [facility] Status Transfused [facility] BASIC METABOLIC PANELon 04-15 Anion gap [Moles/Vol] 16 mmol/L Normal 10-20 [facility] Comment on above: Performed By: #### MG Jose, FOL ####[facility] PATHOLOGY [id number] [place], Calcium [Mass/Vol] 7.7 mg/dL Low 8.6-10.3 [facility] Comment on above: Performed By: #### Charity Santacruz MG, FOL ####[facility] PATHOLOGY EKLTHSVMVM3293 [place], Chloride [Moles/Vol] 95 mmol/L Low 98-107 [facility] Comment on above: Performed By: #### Charity Santacruz MG, FOL ####[facility] PATHOLOGY JGKEPSHTQP9498 [place], CO2 [Moles/Vol] 25 mmol/L Normal 21-31 [facility] Comment on above: Performed By: #### C H8, MG, FOL ####[facility] PATHOLOGY GKCTQRQQYW6223 [place], Creatinine [Mass/Vol] 5.69 mg/dL High 0.70-1.30 [facility] Comment on above: Performed By: #### C H8, MG, FOL ####[facility] PATHOLOGY [id number] [place], ESTIMATED GFR (CKD-EPI) 11 mL/min/1.73sqm Low >=60 [facility] Comment on above: Result Comment: 2020 CKD EPI Equation using Creatinine without RaceComment: Estimated glomerular filtration rate (eGFR) is calculated without a race coefficient. Values should be interpreted in the context of the patient's full clinical presentation.Reference:1. Christophe C, Sagrario M, Gena YUAN, et al.. A Unifying Approach for GFR Estimation: Recommendations of the NKF-ASN Task Force on Reassessing the Inclusion of Race in Diagnosing Kidney Disease. [place] Journal of Kidney Diseases 2021;79(2):268-88.e1.2. N Engl J Med 2020 Vol. 385 Issue 19 Pages 4553-1675 Performed By: #### C H8, MG, FOL ####[facility] PATHOLOGY PQZBTKNWEG3018 [place], Glucose [Mass/Vol] 95 mg/dL Normal 74-109 [facility] [facility] Comment on above: Performed By: #### C H8, MG, FOL ####[facility] [id number] [place], [place], Potassium [Moles/Vol] 4.4 mmol/L Normal 3.5-5.0 [facility] Comment on above: Performed By: #### C H8, MG, FOL ####[facility] [id number] [place], Sodium [Moles/Vol] 132 mmol/L Low 136-145 [facility] Comment on above: Performed By: #### C H8, MG, FOL ####[facility] [id number] [place], Urea nitrogen [Mass/Vol] 44 mg/dL High 7-25 [facility] Comment on above: Performed By: #### C H8, GERARDO LANE ####[facility] PATH[facility] [id number] [place], [address] Basic metabolic 2000 panelon 05-06-2024 Anion gap [Moles/Vol] 16 mmol/L 10 - 20 Met [facility] Calcium [Mass/Vol] 7.7 mg/dL Low 8.6 - 10. 3 mg/dL [facility] Chloride [Moles/Vol] 95 mmol/L Low 98 - 10 7 mmol/L [facility] CO2 [Moles/Vol] 25 mmol/L 21 - 31 mmol/L [facility] Creatinine [Mass/Vol] 5.69 mg/dL High 0.70 - 1.30 mg/dL [facility] GFR/1.73 sq M.predicted CKD-EPI (S/P/Bld) [Vol rate/Area] 11 Low - PINF [facility] Glucose [Mass/Vol] 95 mg/dL 74 - 109 mg/dL [facility] Potassium [Moles/Vol] 4.4 mmol/L 3.5 - 5.0 mmol/L [facility] Sodium [Moles/Vol] 132 mmol/L Low 136 - 145 mmol/L [facility] Urea nitrogen [Mass/Vol] 44 mg/dL High 7 - 25 mg/dL [facility] CBC panel Auto (Bld)on 05-06 Erythrocyte distribution width (RBC) [Ratio] 16.6 % High 11.5 - 14.5 % [facility] Hematocrit (Bld) [Volume fraction] 25.4 % Low 41.0 - 53.0 % [facility] Hemoglobin (Bld) [Mass/Vol] 8.3 g/dL Low 13.9 - 16.3 g/dL [facility] Interpretation and review of laboratory results Abnormal [facility] MCH (RBC) [Entitic mass] 31.7 pg 26.0 - 34.0 pg [facility] MCHC (RBC) [Mass/Vol] 32.5 g/dL 32.0 - 35.9 g/dL [facility] MCV (RBC) [Entitic vol] 97 fL 80 - 100 fL [facility] Platelet mean volume (Bld) [Entitic vol] 9.7 fL 7.5 - 11.2 fL [facility] Platelets (Bld) [#/Vol] 127 10*3/uL Low 150 - 400 K/uL [facility] RBC (Bld) [#/Vol] 2.61 10*6/uL Low [facility] WBC (Bld) [#/Vol] 8.1 10*3/uL 4.5 - 11.5 K/uL [facility] Erythrocyte distribution width (RBC) [Ratio] 16.7 % High 11.5 - 14.5 % [facility] Hematocrit (Bld) [Volume fraction] 20.5 % Low 41.0 - 53.0 % [facility] Hemoglobin (Bld) [Mass/Vol] 6.7 g/dL Critically low 13.9 - 16.3 g/dL [facility] Interpretation and review of laboratory results Abnormal [facility] MCH (RBC) [Entitic mass] 31.3 pg 26.0 - 34.0 pg [facility] MCHC (RBC) [Mass/Vol] 32.4 g/dL 32.0 - 35.9 g/dL [facility] MCV (RBC) [Entitic vol] 97 fL 80 - 100 fL [facility] Platelet mean volume (Bld) [Entitic vol] 10.0 fL 7.5 - 11.2 fL [facility] Platelets (Bld) [#/Vol] 108 10*3/uL Low 150 - 400 K/uL [facility] RBC (Bld) [#/Vol] 2.13 10*6/uL Low [facility] WBC (Bld) [#/Vol] 7.0 10*3/uL 4.5 - 11.5 K/uL [facility] COMPLETE BLOOD COUNTon 05-06 Erythrocyte distribution width (RBC) [Ratio] 16.6 % High 11.5-14.5 [facility] Comment on above: Performed By: #### C BC ####S PATHOLOGY [id number] [place], Hematocrit (Bld) [Volume fraction] 25.4 % Low 41.0-53.0 [facility] Comment on above: Performed By: #### C BC ####[facility] [id number] [place], Hemoglobin (Bld) [Mass/Vol] 8.3 g/dL Low 13.9-16.3 [facility] Comment on above: Performed By: #### C BC ####[facility] PATHOLOGY [id number] [place], MCH (RBC) [Entitic mass] 31.7 pg Normal 26.0-34.0 [facility] Comment on above: Performed By: #### C BC ####[facility] PATHOLOGY [id number] [place], MCHC (RBC) [Mass/Vol] 32.5 g/dL Normal 32.0-35.9 [facility] Comment on above: Performed By: #### C BC ####[facility] PATHOLOGY [id number] [place], MCV (RBC) [Entitic vol] 97 fL Normal 80-100 [facility] Comment on above: Performed By: #### C BC ####[facility] PATHOLOGY [id number] [place], Platelet mean volume (Bld) [Entitic vol] 9.7 fL Normal 7.5-11.2 [facility] Comment on above: Performed By: #### C BC ####[facility] PATHOLOGY [id number] [place], Platelets (Bld) [#/Vol] 127 10*3/uL Low 150-400 [facility] Comment on above: Performed By: #### C BC ####[facility] PATHOLOGY [id number] [place], RBC (Bld) [#/Vol] 2.61 10*6/uL Low 4.50-5.90 [facility] Comment on above: Performed By: #### C BC ####[facility] PATHOLOGY [id number] [place], WBC (Bld) [#/Vol] 8.1 10*3/uL Normal 4.5-11.5 [facility] Comment on above: Performed By: #### C BC ####S PATHOLOGY [id number] [place], Erythrocyte distribution width (RBC) [Ratio] 16.7 % High 11.5-14.5 [facility] Comment on above: Performed By: #### C BC ####[facility] PATHOLOGY [id number] [place], Hematocrit (Bld) [Volume fraction] 20.5 % Low 41.0-53.0 [facility] Comment on above: Performed By: #### C BC ####[facility] PATHOLOGY [id number] [place], Hemoglobin (Bld) [Mass/Vol] 6.7 g/dL Critically low 13.9-16.3 [facility] Comment on above: Performed By: #### C BC ####[facility] PATHOLOGY [id number] [place], MCH (RBC) [Entitic mass] 31.3 pg Normal 26.0-34.0 [facility] Comment on above: Performed By: #### C BC ####[facility] PATHOLOGY [id number] [place], MCHC (RBC) [Mass/Vol] 32.4 g/dL Normal 32.0-35.9 [facility] Comment on above: Performed By: #### C BC ####[facility] PATHOLOGY [id number] [place], MCV (RBC) [Entitic vol] 97 fL Normal 80-100 [facility] Comment on above: Performed By: #### C BC ####[facility] PATHOLOGY [id number] [place], Platelet mean volume (Bld) [Entitic vol] 10.0 fL Normal 7.5-11.2 [facility] Comment on above: Performed By: #### C BC ####[facility] PATHOLOGY [id number] [place], Platelets (Bld) [#/Vol] 108 10*3/uL Low 150-400 [facility] Comment on above: Performed By: #### C BC ####[facility] PATHOLOGY [id number] [place], RBC (Bld) [#/Vol] 2.13 10*6/uL Low 4.50-5.90 [facility] Comment on above: Performed By: #### C BC ####[facility] [id number] [place], WBC (Bld) [#/Vol] 7.0 10*3/uL Normal 4.5-11.5 [facility] Comment on above: Performed By: #### C BC ####[facility] [id number] [place], Consultson 05-06-2024 Securities Adviser Authentication Interface Message Text Normal [facility] Securities Adviser Authentication Interface Message Text Normal [facility] FOLIC ACIDon 05-06-2024 Folate [Mass/Vol] 4.8 ng/mL Low 5.9 - 24.7 ng/mL [facility] Interpretation and review of laboratory results Abnormal [facility] FOL 4.8 ng/mL Low 5.9-24.7 [facility] Comment on above: Performed By: #### C H8, MG, FOL ####[facility] PATHOLOGY [id number] [place], GLUCOSE, FINGERSTICK-IN OFFI CEon 05-06-2024 Glucose [Mass/Vol] 99 mg/dL 74 - 109 mg/dL [facility] Interpretation and review of laboratory results Normal [facility] Glucose [Mass/Vol] 99 mg/dL Normal 74-109 [facility] Comment on above: Performed By: #### 8 2948 ####NURSING GLUCOSE [id number] [place], [address] Glucose [Mass/Vol] 99 mg/dL 74 - 109 mg/dL [facility] Interpretation and review of laboratory results Normal [facility] Glucose [Mass/Vol] 99 mg/dL Normal 74-109 [facility] Comment on above: Performed By: #### 8 2948 ####NURSING GLUCOSE [id number] [place], [address] Glucose [Mass/Vol] 114 mg/dL High 74 - 109 mg/dL [facility] Interpretation and review of laboratory results Abnormal [facility] Glucose [Mass/Vol] 114 mg/dL High 74-109 [facility] Comment on above: Performed By: #### 8 2948 ####NURSING GLUCOSE [id number] [place], [address] Laboratory - Blood bankon ABO and Rh group Nom (Bld) Blood group A Rh(D) positive [facility] MAGNESIUMon 05-06-2024 Interpretation and review of laboratory results Normal [facility] Magnesium [Mass/Vol] 2.1 mg/dL 1.9 - 2 .7 mg/dL [facility] Magnesium [Mass/Vol] 2.1 mg/dL Normal 1.9-2.7 [facility] Comment on above: Performed By: #### C H8, MG, FOL ####[facility] PATH[facility] [id number] [place], [address] METHYLMALONIC ACIDon 024 MMA 320 nmol/L Normal 69-390 [facility] Comment on above: Order Comment: [place] hood Agency Address Site ID: QPT Name: [employer] [facility] Address: [address] [place] [address], [address] [place] [id number] Director: Isaiah Valentine MD Result Comment: See Note 1Serum methylmalonic acid (MMA) levels are used todiagnose and monitor several rare inborn errors ofmetabolism, including methylmalonic aciduria. Theenzymatic conversion of MMA to succinic acid requiresvitamin B12 (adenosyl-cobalamin) as a cofactor. SerumMMA levels are also used for assessing functionalvitamin B12 deficiency. Vitamin B12 is essential forfetal neurodevelopment, particularly early in .Undiagnosed maternal vitamin B12 deficiency may beassociated with adverse / outcomes,such as neural tube defects and intrauterine growthrestriction.[employer] utilized Multi-Modal Decomposition (MMD)analysis to establish first and second trimester-specificMMA reference intervals in , as given below:MMA, First trimester (<13 wks gestation): 58-167 nmol/LMMA, Second trimester (13-23 wks gestation): 63-241 nmol/LNote 1This test was developed and its analytical performancecharacteristics have been determined by [employer]. It has not been cleared or approved by theFDA. This assay has been validated pursuant to the CLIAregulations and is used for clinical purposes. Performed By: #### M ARASH ####[facility] Bzpomrwat0793 [place], [place] No Panel InformationOrdered By: Mariely Monique on 05-06-2024 [facility] No Panel Informationon 05-06 Interpretation and review of laboratory results Abnormal [facility] PHOSPHORUSon 05-06-2024 Phosphate [Mass/Vol] 5.2 mg/dL High 2.5 - 5 .0 mg/dL [facility] Phosphate [Mass/Vol] 5.2 mg/dL High 2.5-5.0 [facility] Comment on above: Performed By: #### P HOS ####S PATHOLOGY [id number] [place], [place], Progress Noteson 05-06-2024 Securities Adviser Authentication Interface Message Text Normal [facility] Securities Adviser Authentication Interface Message Text Normal [facility] Securities Adviser Authentication Interface Message Text Normal [facility] Securities Adviser Authentication Interface Message Text Normal [facility] RED BLOOD CELL COMPONENTon 1 BB Order Item Product status info to follow Normal [facility] Comment on above: Performed By: #### R VINAYAK ####[facility] PATH[facility] [id number] [place], [facility] RED BLOOD CELL UNIT STATUSon 05-06-2024 BLOOD PRODUCT CODE [id number] Normal [facility] Comment on above: Performed By: #### R BU ####[facility] PATH[facility] [id number] [place], BLOOD PRODUCT DESCRIPTION Red Blood Cells Normal [facility] Comment on above: Performed By: #### R BU ####[facility] PATH[facility] [id number] [place], BLOOD PRODUCT STATUS Transfused Normal [facility] Comment on above: Performed By: #### R BU ####[facility] PATH[facility] [id number] [place], BLOOD PRODUCT UNIT INFO [id number] Normal [facility] Comment on above: Performed By: #### R BU ####[facility] PATH[facility] [id number] [place], BLOOD PRODUCT UNIT TYPE 6200 Normal [facility] Comment on above: Result Comment: A Po s Performed By: #### R BU ####[facility] PATH[facility] [id number] [place], CROSSMATCH INTERPRETATION Compatible (E) Normal [facility] Comment on above: Performed By: #### R BU ####S PATHOLOGY UDIMRITOJW8675 [place], TYPE AND SCREENon 05-06-2024 Blood group antibody screen Ql Negative [facility] ABO and Rh group Nom (Bld) Blood group A Rh(D) positive Normal [facility] Comment on above: Performed By: #### T S ####S PATHOLOGY CRGMPLTEIL3149 [place], ABSC INT Negative Normal [facility] Comment on above: Performed By: #### T S ####[facility] PATHOLOGY [id number] [place], VITAMIN D, 25-HYDROXYon 04-15 25-hydroxyvitamin D IA [Mass/Vol] 12.3 ng/mL Low 30 - 100 ng/mL [facility] Interpretation and review of laboratory results Abnormal [facility] VITD25 12.3 ng/mL Low 30-100 [facility] Comment on above: Order Comment: Defic ient : <20.0 ng/mLInsufficient : 20.0-29.9 ng/mLSufficient : 30.0 - 100.0 ng/mLPotential Toxicity : >100.0 ng/mL Performed By: #### V ITD25 ####S PATHOLOGY ZENYJGZIEF1273 [place], BASIC METABOLIC PANELon 04-15 Anion gap [Moles/Vol] 17 mmol/L Normal 05-03 [facility] Comment on above: Performed By: #### TANNER Smith CH8 ####[facility] PATH[facility] [id number] [place], Calcium [Mass/Vol] 7.8 mg/dL Low 8.6-10.3 [facility] Comment on above: Performed By: #### TANNER Smith CH8 ####[facility] [id number] [place], Chloride [Moles/Vol] 91 mmol/L Low 98-107 [facility] Comment on above: Performed By: #### TANNER Smith CH8 ####[facility] PATHOLOGY [id number] [place], CO2 [Moles/Vol] 25 mmol/L Normal 21-31 [facility] Comment on above: Performed By: #### TANNER Smith CH8 ####S PATHOLOGY [id number] [place], Creatinine [Mass/Vol] 8.72 mg/dL High 0.70-1.30 [facility] Comment on above: Performed By: #### TANNER Smith CH8 ####S PATHOLOGY [id number] [place], ESTIMATED GFR (CKD-EPI) 6 mL/min/1.73sqm Low >=60 [facility] Comment on above: Result Comment: 2020 CKD EPI Equation using Creatinine without RaceComment: Estimated glomerular filtration rate (eGFR) is calculated without a race coefficient. Values should be interpreted in the context of the patient's full clinical presentation.Reference:1. Christophe C, Sagrario M, Gena YUAN, et al.. A Unifying Approach for GFR Estimation: Recommendations of the NKF-ASN Task Force on Reassessing the Inclusion of Race in Diagnosing Kidney Disease. [place] Journal of Kidney Diseases 2021;79(2):268-88.e1.2. N Engl J Med 2020 Vol. 385 Issue 19 Pages 9152-6904 Performed By: #### TANNER Smith CH8 ####[facility] PATH[facility] [id number] [place], Glucose [Mass/Vol] 90 mg/dL Normal 74-109 [facility] Comment on above: Performed By: #### TANNER Smith CH8 ####S PATHOLOGY [id number] [place], Potassium [Moles/Vol] 5.2 mmol/L High 3.5-5.0 [facility] Comment on above: Performed By: #### TANNER Smith CH8 ####S PATHOLOGY [id number] [place], Sodium [Moles/Vol] 128 mmol/L Low 136-145 [facility] Comment on above: Performed By: #### TANNER Smith CH8 ####[facility] PATH[facility] [id number] [place], Urea nitrogen [Mass/Vol] 79 mg/dL High 7-25 [facility] Comment on above: Performed By: #### TANNER Smith CH8 ####[facility] PATHOLOGY [id number] [place], BLOOD GAS, ARTERIALon 2023 Base excess Calc (Bld) [Moles/Vol] -3.0000 mmol/L Low -2.0 - 3.0 mmol/L [facility] CO2 (Bld) [Partial pressure] 52.6 mm[Hg] High [facility] FIO2 2 LPM [facility] HCO3 (Bld) [Moles/Vol] 23 mmol/L 21 - 28 mmol/L [facility] Interpretation and review of laboratory results Abnormal [facility] Oxygen (Bld) [Partial pressure] 110 mm[Hg] [facility] flow Oxygen delivery system BIPAP [facility] pH (Bld) 7.267 [pH] Low 7.350 - 7.450 [facility] CR ANAYA -3.0 mmol/L Low -2.0-3.0 [facility] Comment on above: Performed By: #### C R BGA ####[facility] PATH[facility]Y ZHRSMINVRP7390 [place], CR PCO2 52.6 mm Hg High 35.0-45.0 [facility] Comment on above: Performed By: #### C R BGA ####[facility] PATHOLOGY [id number] [place], CR PHA 7.267 Low 7.350-7.450 [facility] Comment on above: Performed By: #### C R BGA ####[facility] PATH[facility]Y [id number] [place], CR PO2 110 mm Hg High 80-100 [facility] Comment on above: Performed By: #### C R BGA ####S PATHOLOGY [id number] [place], FIO2 (CATEGORY) 2 LPM Normal [facility] Comment on above: Performed By: #### C R BGA ####S PATHOLOGY [id number] [place], HCO3 (Bld) [Moles/Vol] 23 mmol/L Normal 21-28 [facility] Comment on above: Performed By: #### C R BGA ####[facility] PATHOLOGY [id number] [place], MODE BIPAP Normal [facility] Comment on above: Performed By: #### C R BGA ####[facility] PATHOLOGY [id number] [place], Oxygen saturation in Blood 97.6 % Normal 95.0-99.0 [facility] Comment on above: Performed By: #### C R BGA ####[facility] PATHOLOGY [id number] [place], Basic metabolic 2000 panelon 05-05-2024 Anion gap [Moles/Vol] 17 mmol/L 10 - 20 Met [facility] Calcium [Mass/Vol] 7.8 mg/dL Low 8.6 - 10. 3 mg/dL [facility] Chloride [Moles/Vol] 91 mmol/L Low 98 - 10 7 mmol/L [facility] CO2 [Moles/Vol] 25 mmol/L 21 - 31 mmol/L [facility] Creatinine [Mass/Vol] 8.72 mg/dL High 0.70 - 1.30 mg/dL [facility] GFR/1.73 sq M.predicted CKD-EPI (S/P/Bld) [Vol rate/Area] 6 Low - PINF [facility] Glucose [Mass/Vol] 90 mg/dL 74 - 109 mg/dL [facility] Potassium [Moles/Vol] 5.2 mmol/L High 3.5 - 5.0 mmol/L [facility] Sodium [Moles/Vol] 128 mmol/L Low 136 - 145 mmol/L [facility] Urea nitrogen [Mass/Vol] 79 mg/dL High 7 - 25 mg/dL [facility] CBC panel Auto (Bld)on 05-05 Erythrocyte distribution width (RBC) [Ratio] 16.8 % High 11.5 - 14.5 % [facility] Hematocrit (Bld) [Volume fraction] 21.2 % Low 41.0 - 53.0 % [facility] Hemoglobin (Bld) [Mass/Vol] 7.1 g/dL Low 13.9 - 16.3 g/dL [facility] Interpretation and review of laboratory results Abnormal [facility] MCH (RBC) [Entitic mass] 31.9 pg 26.0 - 34.0 pg [facility] MCHC (RBC) [Mass/Vol] 33.7 g/dL 32.0 - 35.9 g/dL [facility] MCV (RBC) [Entitic vol] 95 fL 80 - 100 fL [facility] Platelet mean volume (Bld) [Entitic vol] 10.0 fL 7.5 - 11.2 fL [facility] Platelets (Bld) [#/Vol] 111 10*3/uL Low 150 - 400 K/uL [facility] RBC (Bld) [#/Vol] 2.24 10*6/uL Low [facility] WBC (Bld) [#/Vol] 10.2 10*3/uL 4.5 - 11.5 K/uL [facility] COMPLETE BLOOD COUNTon 05-05 Erythrocyte distribution width (RBC) [Ratio] 16.8 % High 11.5-14.5 [facility] Comment on above: Performed By: #### C BC ####S PATHOLOGY [id number] [place], Hematocrit (Bld) [Volume fraction] 21.2 % Low 41.0-53.0 [facility] Comment on above: Performed By: #### C BC ####[facility] PATH[facility] [id number] [place], Hemoglobin (Bld) [Mass/Vol] 7.1 g/dL Low 13.9-16.3 [facility] Comment on above: Performed By: #### C BC ####S PATHOLOGY [id number] [place], MCH (RBC) [Entitic mass] 31.9 pg Normal 26.0-34.0 [facility] Comment on above: Performed By: #### C BC ####[facility] PATHOLOGY [id number] [place], MCHC (RBC) [Mass/Vol] 33.7 g/dL Normal 32.0-35.9 [facility] Comment on above: Performed By: #### C BC ####[facility] PATHOLOGY [id number] [place], MCV (RBC) [Entitic vol] 95 fL Normal 80-100 [facility] Comment on above: Performed By: #### C BC ####[facility] PATHOLOGY [id number] [place], Platelet mean volume (Bld) [Entitic vol] 10.0 fL Normal 7.5-11.2 [facility] Comment on above: Performed By: #### C BC ####[facility] PATHOLOGY [id number] [place], Platelets (Bld) [#/Vol] 111 10*3/uL Low 150-400 [facility] Comment on above: Performed By: #### C BC ####[facility] PATHOLOGY [id number] [place], RBC (Bld) [#/Vol] 2.24 10*6/uL Low 4.50-5.90 [facility] Comment on above: Performed By: #### C BC ####[facility] PATHOLOGY [id number] [place], WBC (Bld) [#/Vol] 10.2 10*3/uL Normal 4.5-11.5 [facility] Comment on above: Performed By: #### C BC ####[facility] PATHOLOGY [id number] [place], Consultson 05-05-2024 Securities Adviser Authentication Interface Message Text Normal [facility] Securities Adviser Authentication Interface Message Text Physical Therapy Note Attempted to see patient, however patient not available due to getting hooked up to dialysis. Will continue to follow. Ben Gtz, PT, DPT #[phone] Normal [facility] GLUCOSE, FINGERSTICK-IN OFFI CEon 05-05-2024 Glucose [Mass/Vol] 106 mg/dL 74 - 109 mg/dL [facility] Interpretation and review of laboratory results Normal [facility] Glucose [Mass/Vol] 106 mg/dL Normal 74-109 [facility] Comment on above: Performed By: #### 8 2948 ####NURSING GLUCOSE [id number] [place], [address] Glucose [Mass/Vol] 99 mg/dL 74 - 109 mg/dL [facility] Interpretation and review of laboratory results Normal [facility] Glucose [Mass/Vol] 99 mg/dL Normal 74-109 [facility] Comment on above: Performed By: #### 8 2948 ####NURSING GLUCOSE GNEPLTI3744 [place], [address] Glucose [Mass/Vol] 115 mg/dL High 74 - 109 mg/dL [facility] Interpretation and review of laboratory results Abnormal [facility] Glucose [Mass/Vol] 115 mg/dL High 74-109 [facility] Comment on above: Performed By: #### 8 8368 ####NURSING GLUCOSE [id number] [place] [address], [address] Glucose [Mass/Vol] 111 mg/dL High 74 - 109 mg/dL [facility] Interpretation and review of laboratory results Abnormal [facility] Glucose [Mass/Vol] 111 mg/dL High 74-109 [facility] Comment on above: Performed By: #### 8 4238 ####NURSING GLUCOSE [id number] [place], [address] MAGNESIUMon 05-05-2024 Interpretation and review of laboratory results Normal [facility] Magnesium [Mass/Vol] 2.3 mg/dL 1.9 - 2 .7 mg/dL [facility] Magnesium [Mass/Vol] 2.3 mg/dL Normal 1.9-2.7 [facility] [facility] Comment on above: Performed By: #### M TANNER Tsang, 8 ####[facility] PATHOLOGY [id number] [place], [place], No Panel Informationon 05-05 Interpretation and review of laboratory results Abnormal [facility] PHOSPHORUSon 05-05-2024 Phosphate [Mass/Vol] 6.9 mg/dL High 2.5 - 5 .0 mg/dL [facility] Phosphate [Mass/Vol] 6.9 mg/dL High 2.5-5.0 [facility] Comment on above: Performed By: #### TANNER Smith, CH8 ####[facility] PATH[facility] [id number] [place], [place], PLASMA STATUSon 05-05-2024 Blood Product Code [id number] [facility]alt Blood Product Description FFP [facility] Blood product unit Nom (BPU) [ID] [id number] [facility] Product Unit Type 600 [facility] Status Transfused [facility] Progress Noteson 05-05-2024 Securities Adviser Authentication Interface Message Text Normal [facility] Securities Adviser Authentication Interface Message Text Hemodialysis x 3.5 hours completed as ordered. 2K , 1500mls removed well tolerated,. Report given Normal [facility] Securities Adviser Authentication Interface Message Text Normal [facility] Securities Adviser Authentication Interface Message Text Social Work ICU Note Attempted to meet with pt x2 to discuss SNF reccs and complete assessment. Pt with providers at both attempts. Will follow-up as able. Jodee Balderrama, ELICEO, KAREN Normal [facility] Securities Adviser Authentication Interface Message Text Normal [facility] BASIC METABOLIC PANELon 04-15 Anion gap [Moles/Vol] 19 mmol/L Normal 10-20 [facility] Comment on above: Performed By: #### C H8 ####[facility] PATHOLOGY [id number] [place], Calcium [Mass/Vol] 7.7 mg/dL Low 8.6-10.3 [facility] Comment on above: Performed By: #### C H8 ####[facility] PATH[facility] [id number] [place], Chloride [Moles/Vol] 92 mmol/L Low 98-107 [facility] Comment on above: Performed By: #### C H8 ####[facility] PATHOLOGY [id number] [place], CO2 [Moles/Vol] 24 mmol/L Normal 21-31 [facility] Comment on above: Performed By: #### C H8 ####[facility] PATHOLOGY [id number] [place], Creatinine [Mass/Vol] 8.31 mg/dL High 0.70-1.30 [facility] Comment on above: Performed By: #### C H8 ####[facility] PATHOLOGY [id number] [place], ESTIMATED GFR (CKD-EPI) 7 mL/min/1.73sqm Low >=60 [facility] Comment on above: Result Comment: 2020 CKD EPI Equation using Creatinine without RaceComment: Estimated glomerular filtration rate (eGFR) is calculated without a race coefficient. Values should be interpreted in the context of the patient's full clinical presentation.Reference:1. Christophe C, Sagrario M, Gena YUAN, et al.. A Unifying Approach for GFR Estimation: Recommendations of the NKF-ASN Task Force on Reassessing the Inclusion of Race in Diagnosing Kidney Disease. [place] Journal of Kidney Diseases 2021;79(2):268-88.e1.2. N Engl J Med 1 Vol. 385 Issue 19 Pages 3549-7924 Performed By: #### C H8 ####[facility] PATHOLOGY [id number] [place], Glucose [Mass/Vol] 148 mg/dL High 74-109 [facility] Comment on above: Performed By: #### C H8 ####S PATHOLOGY [id number] [place], Potassium [Moles/Vol] 5.3 mmol/L High 3.5-5.0 [facility] Comment on above: Performed By: #### C H8 ####S PATHOLOGY [id number] [place], Sodium [Moles/Vol] 130 mmol/L Low 136-145 [facility] Comment on above: Performed By: #### C H8 ####[facility] PATHOLOGY [id number] [place], Urea nitrogen [Mass/Vol] 74 mg/dL High 7-25 [facility] Comment on above: Performed By: #### Charity H8 ####[facility] PATHOLOG[facility] [id number] [place], Anion gap [Moles/Vol] 17 mmol/L Normal 10-20 [facility] Comment on above: Performed By: #### TANNER Garcia MG ####[facility] PATHOLOGY [id number] [place], Calcium [Mass/Vol] 7.8 mg/dL Low 8.6-10.3 [facility] Comment on above: Performed By: #### TANNER Garcia MG ####[facility] PATHOLOGY [id number] [place], Chloride [Moles/Vol] 95 mmol/L Low 98-107 [facility] Comment on above: Performed By: #### TANNER Garcia MG ####[facility] PATHOLOGY [id number] [place], CO2 [Moles/Vol] 23 mmol/L Normal 21-31 [facility] Comment on above: Performed By: #### TANNER Garcia MG ####[facility] PATHOLOGY [id number] [place], Creatinine [Mass/Vol] 7.69 mg/dL High 0.70-1.30 [facility] Comment on above: Performed By: #### TANNER Garcia MG ####[facility] PATHOLOGY [id number] [place], ESTIMATED GFR (CKD-EPI) 7 mL/min/1.73sqm Low >=60 [facility] Comment on above: Result Comment: 2020 CKD EPI Equation using Creatinine without RaceComment: Estimated glomerular filtration rate (eGFR) is calculated without a race coefficient. Values should be interpreted in the context of the patient's full clinical presentation.Reference:1. Christophe C, Sagrario M, Gena YUAN, et al.. A Unifying Approach for GFR Estimation: Recommendations of the NKF-ASN Task Force on Reassessing the Inclusion of Race in Diagnosing Kidney Disease. [place] Journal of Kidney Diseases 2021;79(2):268-88.e1.2. N Engl J Med 1 Vol. 385 Issue 19 Pages 4412-8022 Performed By: #### TANNER Garcia MG ####[facility] PATHOLOG[facility] [id number] [place], Glucose [Mass/Vol] 184 mg/dL High 74-109 [facility] Comment on above: Performed By: #### TANNER Garcia MG ####[facility] PATHOLOGY [id number] [place], Potassium [Moles/Vol] 5.1 mmol/L High 3.5-5.0 [facility] Comment on above: Performed By: #### TANNER Garcia MG ####[facility] PATHOLOGY [id number] [place], Sodium [Moles/Vol] 130 mmol/L Low 136-145 [facility] Comment on above: Performed By: #### TANNER Garcia MG ####[facility] PATHOLOGY [id number] [place], Urea nitrogen [Mass/Vol] 61 mg/dL High 7-25 [facility] Comment on above: Performed By: #### TANNER Garcia MG ####[facility] PATHOLOGY [id number] [place], BLOOD GAS, ARTERIALon 2023 Base excess Calc (Bld) [Moles/Vol] -2.7000 mmol/L Low -2.0 - 3.0 mmol/L [facility] CO2 (Bld) [Partial pressure] 50.1 mm[Hg] High [facility] FIO2 3 LPM [facility] HCO3 (Bld) [Moles/Vol] 23 mmol/L 21 - 28 mmol/L [facility] Interpretation and review of laboratory results Abnormal [facility] Oxygen (Bld) [Partial pressure] 129 mm[Hg] High [facility] Oxygen gas flow Oxygen delivery system Nasal [place]ula [facility] pH (Bld) 7.288 [pH] Low 7.350 - 7.450 [facility] CR ANAYA -2.7 mmol/L Low -2.0-3.0 [facility] Comment on above: Performed By: #### C R BGA ####[facility] PATHOLOGY [id number] [place], CR PCO2 50.1 mm Hg High 35.0-45.0 [facility] Comment on above: Performed By: #### C R BGA ####[facility] PATHOLOGY [id number] [place], CR PHA 7.288 Low 7.350-7.450 [facility] Comment on above: Performed By: #### C R BGA ####[facility] PATHOLOGY [id number] [place], CR PO2 129 mm Hg High 80-100 [facility] Comment on above: Performed By: #### C R BGA ####[facility] PATHOLOGY [id number] [place], FIO2 (CATEGORY) 3 LPM Normal [facility] Comment on above: Performed By: #### C R BGA ####[facility] PATHOLOGY [id number] [place], HCO3 (Bld) [Moles/Vol] 23 mmol/L Normal 21-28 [facility] Comment on above: Performed By: #### C R BGA ####[facility] PATHOLOGY [id number] [place], MODE Nasal [place] Normal [facility] Comment on above: Performed By: #### C R BGA ####[facility] PATHOLOGY [id number] [place], Oxygen saturation in Blood 98.9 % Normal 95.0-99.0 [facility] Comment on above: Performed By: #### C R BGA ####S PATHOLOGY [id number] [place], Basic metabolic 2000 panelon 05-04-2024 Anion gap [Moles/Vol] 19 mmol/L 10 - 20 [facility] Calcium [Mass/Vol] 7.7 mg/dL Low 8.6 - 10. 3 mg/dL [facility] Chloride [Moles/Vol] 92 mmol/L Low 98 - 10 7 mmol/L [facility] CO2 [Moles/Vol] 24 mmol/L 21 - 31 mmol/L [facility] Creatinine [Mass/Vol] 8.31 mg/dL High 0.70 - 1.30 mg/dL [facility] GFR/1.73 sq M.predicted CKD-EPI (S/P/Bld) [Vol rate/Area] 7 Low - PINF [facility] Glucose [Mass/Vol] 148 mg/dL High 74 - 109 mg/dL [facility] Interpretation and review of laboratory results Abnormal [facility] Potassium [Moles/Vol] 5.3 mmol/L High 3.5 - 5.0 mmol/L [facility] Sodium [Moles/Vol] 130 mmol/L Low 136 - 145 mmol/L [facility] Urea nitrogen [Mass/Vol] 74 mg/dL High 7 - 25 mg/dL [facility] Anion gap [Moles/Vol] 17 mmol/L 10 - 20 [facility] Calcium [Mass/Vol] 7.8 mg/dL Low 8.6 - 10. 3 mg/dL [facility] Chloride [Moles/Vol] 95 mmol/L Low 98 - 10 7 mmol/L [facility] CO2 [Moles/Vol] 23 mmol/L 21 - 31 mmol/L [facility] Creatinine [Mass/Vol] 7.69 mg/dL High 0.70 - 1.30 mg/dL [facility] GFR/1.73 sq M.predicted CKD-EPI (S/P/Bld) [Vol rate/Area] 7 Low - PINF [facility] Glucose [Mass/Vol] 184 mg/dL High 74 - 109 mg/dL [facility] Potassium [Moles/Vol] 5.1 mmol/L High 3.5 - 5.0 mmol/L [facility] Sodium [Moles/Vol] 130 mmol/L Low 136 - 145 mmol/L [facility] Urea nitrogen [Mass/Vol] 61 mg/dL High 7 - 25 mg/dL [facility] CBC panel Auto (Bld)on 05-04 Erythrocyte distribution width (RBC) [Ratio] 17.0 % High 11.5 - 14.5 % [facility] Hematocrit (Bld) [Volume fraction] 21.2 % Low 41.0 - 53.0 % [facility] Hemoglobin (Bld) [Mass/Vol] 7.2 g/dL Low 13.9 - 16.3 g/[facility] Interpretation and review of laboratory results Abnormal [facility] MCH (RBC) [Entitic mass] 31.7 pg 26.0 - 34.0 pg [facility] MCHC (RBC) [Mass/Vol] 33.8 g/dL 32.0 - 35.9 g/dL [facility] MCV (RBC) [Entitic vol] 94 fL 80 - 100 fL [facility] Platelet mean volume (Bld) [Entitic vol] 10.9 fL 7.5 - 11.2 fL [facility] Platelets (Bld) [#/Vol] 89 10*3/uL Low 150 - 400 K/uL [facility] RBC (Bld) [#/Vol] 2.27 10*6/uL Low [facility] WBC (Bld) [#/Vol] 10.0 10*3/uL 4.5 - 11.5 K/uL [facility] COMPLETE BLOOD COUNTon 05-04 Erythrocyte distribution width (RBC) [Ratio] 17.0 % High 11.5-14.5 [facility] Comment on above: Performed By: #### C BC ####[facility] PATHOLOGY [id number] [place], Hematocrit (Bld) [Volume fraction] 21.2 % Low 41.0-53.0 [facility] Comment on above: Performed By: #### C BC ####S PATHOLOGY [id number] [place], Hemoglobin (Bld) [Mass/Vol] 7.2 g/dL Low 13.9-16.3 [facility] Comment on above: Performed By: #### C BC ####S PATHOLOGY [id number] [place], MCH (RBC) [Entitic mass] 31.7 pg Normal 26.0-34.0 [facility] Comment on above: Performed By: #### C BC ####S PATHOLOGY [id number] [place], MCHC (RBC) [Mass/Vol] 33.8 g/dL Normal 32.0-35.9 [facility] Comment on above: Performed By: #### C BC ####S PATHOLOGY [id number] [place], MCV (RBC) [Entitic vol] 94 fL Normal 80-100 [facility] Comment on above: Performed By: #### C BC ####S PATHOLOGY [id number] [place], Platelet mean volume (Bld) [Entitic vol] 10.9 fL Normal 7.5-11.2 [facility] Comment on above: Performed By: #### C BC ####S PATHOLOGY [id number] [place], Platelets (Bld) [#/Vol] 89 10*3/uL Low 150-400 [facility] Comment on above: Performed By: #### C BC ####[facility] PATHOLOGY [id number] [place], RBC (Bld) [#/Vol] 2.27 10*6/uL Low 4.50-5.90 [facility] Comment on above: Performed By: #### C BC ####[facility] PATHOLOGY [id number] [place], WBC (Bld) [#/Vol] 10.0 10*3/uL Normal 4.5-11.5 [facility] Comment on above: Performed By: #### C BC ####[facility] PATHOLOGY [id number] [place], Consultson 05-04-2024 Securities Adviser Authentication Interface Message Text Normal [facility] Securities Adviser Authentication Interface Message Text Normal [facility] GLUCOSE, FINGERSTICK-IN OFFI CEon 05-04-2024 Glucose [Mass/Vol] 168 mg/dL High 74 - 109 mg/dL [facility] Interpretation and review of laboratory results Abnormal [facility] Glucose [Mass/Vol] 168 mg/dL High 74-109 [facility] Comment on above: Performed By: #### 8 2948 ####NURSING GLUCOSE [id number] [place], [address] Glucose [Mass/Vol] 192 mg/dL High 74 - 109 mg/dL [facility] Interpretation and review of laboratory results Abnormal [facility] Glucose [Mass/Vol] 192 mg/dL High 74-109 [facility] Comment on above: Performed By: #### 8 2948 ####NURSING GLUCOSE [id number] [place], [address] Glucose [Mass/Vol] 213 mg/dL High 74 - 109 mg/dL [facility] Interpretation and review of laboratory results Abnormal [facility] Glucose [Mass/Vol] 213 mg/dL High 74-109 [facility] Comment on above: Performed By: #### 8 1068 ####NURSING GLUCOSE [id number] [place], [address] Glucose [Mass/Vol] 211 mg/dL High 74 - 109 mg/dL [facility] Interpretation and review of laboratory results Abnormal [facility] Glucose [Mass/Vol] 211 mg/dL High 74-109 [facility] Comment on above: Performed By: #### 8 2948 ####NURSING GLUCOSE [id number] [place], [address] Laboratory - Blood bankon Major crossmatch [Interp] Compatible (E) [facility] MAGNESIUMon 05-04-2024 Interpretation and review of laboratory results Normal [facility] Magnesium [Mass/Vol] 2.1 mg/dL 1.9 - 2 .7 mg/dL [facility] Magnesium [Mass/Vol] 2.1 mg/dL Normal 1.9-2.7 [facility] Comment on above: Performed By: #### C H8, PHOS, MG ####[facility] PATHOLOGY [id number] [place], [address] No Panel Informationon 05-04 Interpretation and review of laboratory results Abnormal [facility] Blood Product Code [id number] [facility] Blood Product Description FFP [facility] Blood Product Description Red Blood Cells [facility] Blood Product Unit Type 5100 [facility] Status Transfused [facility] PHOSPHORUSon 05-04-2024 Phosphate [Mass/Vol] 6.1 mg/dL High 2.5 - 5 .0 mg/dL [facility] Phosphate [Mass/Vol] 6.1 mg/dL High 2.5-5.0 [facility] Comment on above: Performed By: #### Charity Santacruz PHOS MG ####[facility] PATHOLOG[facility] [id number] [place], PLASMA STATUSon 05-04-2024 Blood Product Code [id number] [facility] Blood Product Code [id number] [facility] Blood product unit Nom (BPU) [ID] [id number] [facility] Blood product unit Nom (BPU) [ID] [id number] [facility] Blood Product Unit Type 8400 [facility] Blood Product Unit Type 600 [facility] Progress Noteson 05-04-2024 Securities Adviser Authentication Interface Message Text Normal [facility] Securities Adviser Authentication Interface Message Text Normal [facility] Securities Adviser Authentication Interface Message Text Normal [facility] Securities Adviser Authentication Interface Message Text Normal [facility] Securities Adviser Authentication Interface Message Text Normal [facility] RED BLOOD CELL UNIT STATUSon 05-04-2024 Blood product unit Nom (BPU) [ID] [id number] [facility] Blood product unit Nom (BPU) [ID] [id number] [facility] WHOLE BLOOD STATUSon 024 Blood Product Code [id number] [facility] Blood Product Description Whole Blood [facility] Blood product unit Nom (BPU) [ID] [id number] [facility] Blood Product Unit Type 9500 [facility] Major crossmatch [Interp] Incompatible [facility] Status Transfused [facility] BASIC METABOLIC PANELon 04-15 Anion gap [Moles/Vol] 17 mmol/L Normal 10- [facility] Comment on above: Performed By: #### Charity Santacruz PHOS MG ####[facility] PATHOLOGY [id number] [place], Calcium [Mass/Vol] 8.1 mg/dL Low 8.6-10.3 [facility] Comment on above: Performed By: #### Charity Santacruz PHOS MG ####[facility] PATHOLOGY [id number] [place], Chloride [Moles/Vol] 96 mmol/L Low 98-107 [facility] Comment on above: Performed By: #### TANNER Garcia MG ####[facility] PATHOLOGY IGBGPQKFGJ5124 [place], CO2 [Moles/Vol] 24 mmol/L Normal 21-31 [facility] Comment on above: Performed By: #### TANNER Garcia MG ####[facility] PATHOLOGY [id number] [place], Creatinine [Mass/Vol] 6.81 mg/dL High 0.70-1.30 [facility] Comment on above: Performed By: #### TANNER Garcia MG ####[facility] PATHOLOGY [id number] [place], ESTIMATED GFR (CKD-EPI) 9 mL/min/1.73sqm Low >=60 [facility] Comment on above: Result Comment: 2020 CKD EPI Equation using Creatinine without RaceComment: Estimated glomerular filtration rate (eGFR) is calculated without a race coefficient. Values should be interpreted in the context of the patient's full clinical presentation.Reference:1. Christophe C, Sagrario M, Gena YUAN, et al.. A Unifying Approach for GFR Estimation: Recommendations of the NKF-ASN Task Force on Reassessing the Inclusion of Race in Diagnosing Kidney Disease. [place] Journal of Kidney Diseases 2021;79(2):268-88.e1.2. N Engl J Med 2020 Vol. 385 Issue 19 Pages 3016-5309 Performed By: #### TANNER Garcia MG ####[facility] PATHOLOGY [id number] [place], Glucose [Mass/Vol] 246 mg/dL High 74-109 [facility] Comment on above: Performed By: #### TANNER Garcia MG ####[facility] PATHOLOGY [id number] [place], Potassium [Moles/Vol] 5.3 mmol/L High 3.5-5.0 [facility] Comment on above: Performed By: #### C H8, PHOS, MG ####[facility] PATHOLOGY [id number] [place], Sodium [Moles/Vol] 132 mmol/L Low 136-145 [facility] Comment on above: Performed By: #### C H8, PHOS, MG ####[facility] PATHOLOGY [id number] [place], Urea nitrogen [Mass/Vol] 43 mg/dL High 7-25 [facility] Comment on above: Performed By: #### C H8, PHOS, MG ####[facility] PATHOLOGY [id number] [place], BLOOD GAS, ARTERIALOrdered B y: Gricelda Enrique on 05-03-2024 Base excess Calc (Bld) [Moles/Vol] -1.3000 mmol/L -2.0 - 3.0 mmol/L [facility] CO2 (Bld) [Partial pressure] 46.0 mm[Hg] High [facility] FIO2 3 LPM [facility] HCO3 (Bld) [Moles/Vol] 24 mmol/L 21 - 28 mmol/L [facility] Interpretation and review of laboratory results Abnormal [facility] Oxygen (Bld) [Partial pressure] 166 mm[Hg] High [facility] Oxygen gas flow Oxygen delivery system Nasal [place] [facility] pH (Bld) 7.336 [pH] Low 7.350 - 7.450 [facility] BLOOD GAS, ARTERIALon 2023 CR ANAYA -1.3 mmol/L Normal -2.0-3.0 [facility] Comment on above: Performed By: #### C R BGA ####[facility] PATHOLOGY [id number] [place], CR PCO2 46.0 mm Hg High 35.0-45.0 [facility] Comment on above: Performed By: #### C R BGA ####[facility] PATHOLOGY [id number] [place], CR PHA 7.336 Low 7.350-7.450 [facility] Comment on above: Performed By: #### C R BGA ####[facility] PATHOLOGY [id number] [place], CR PO2 166 mm Hg High 80-100 [facility] Comment on above: Performed By: #### C R BGA ####S PATHOLOGY [id number] [place], FIO2 (CATEGORY) 3 LPM Normal [facility] Comment on above: Performed By: #### C R BGA ####[facility] PATHOLOGY [id number] [place], HCO3 (Bld) [Moles/Vol] 24 mmol/L Normal 21-28 [facility] Comment on above: Performed By: #### C R BGA ####[facility] PATHOLOGY [id number] [place], MODE Nasal [place] Normal [facility] Comment on above: Performed By: #### C R BGA ####[facility] PATHOLOGY [id number] [place], Oxygen saturation in Blood 97.7 % Normal 95.0-99.0 [facility] Comment on above: Performed By: #### C R BGA ####[facility] PATHOLOGY [id number] [place], Basic metabolic 2000 panelOr dered By: Divina Rand on 05-03-2024 Anion gap [Moles/Vol] 17 mmol/L - Met [facility] Calcium [Mass/Vol] 8.1 mg/dL Low 8.6 - 10. 3 mg/dL [facility] Chloride [Moles/Vol] 96 mmol/L Low 98 - 10 7 mmol/L [facility] CO2 [Moles/Vol] 24 mmol/L 21 - 31 mmol/L [facility] Creatinine [Mass/Vol] 6.81 mg/dL High 0.70 - 1.30 mg/dL [facility] GFR/1.73 sq M.predicted CKD-EPI (S/P/Bld) [Vol rate/Area] 9 Low - PINF [facility] Glucose [Mass/Vol] 246 mg/dL High 74 - 109 mg/dL [facility] Interpretation and review of laboratory results Abnormal [facility] Potassium [Moles/Vol] 5.3 mmol/L High 3.5 - 5.0 mmol/L [facility] Sodium [Moles/Vol] 132 mmol/L Low 136 - 145 mmol/L [facility] Urea nitrogen [Mass/Vol] 43 mg/dL High 7 - 25 mg/dL [facility] CALCIUM, IONIZEDon Calcium.ionized (Bld) [Moles/Vol] 1.16 mmol/L 1.15 - 1.33 mmol/L [facility] Interpretation and review of laboratory results Normal [facility] CR ICA 1.16 mmol/L Normal 1.15-1.33 [facility] Comment on above: Result Comment: This test was developed, and its performance characteristics determined by the Department of Pathology of The [facility]. It has not been cleared or approved by the FDA. This test is used for clinical purposes only. Performed By: #### C R ICA ####[facility] PATHOLOGY [id number] [place], [phone] CBC panel Auto (Bld)Ordered By: Roe Hall on 05-03-2024 Hemoglobin (Bld) [Mass/Vol] 6.9 g/dL Critically low 13.9 - 16.3 g/dL [facility] Interpretation and review of laboratory results Abnormal [facility] MCV (RBC) [Entitic vol] 93 fL 80 - 100 fL [facility] CBC panel Auto (Bld)Ordered By: Damion Perry on 05-03-2024 Erythrocyte distribution width (RBC) [Ratio] 17.5 % High 11.5 - 14.5 % [facility] Hematocrit (Bld) [Volume fraction] 20.1 % Low 41.0 - 53.0 % [facility] Interpretation and review of laboratory results Abnormal [facility] MCH (RBC) [Entitic mass] 32.1 pg 26.0 - 34.0 pg [facility] MCHC (RBC) [Mass/Vol] 34.5 g/dL 32.0 - 35.9 g/dL [facility] Platelet mean volume (Bld) [Entitic vol] 10.8 fL 7.5 - 11.2 fL [facility] Platelets (Bld) [#/Vol] 69 10*3/uL Low 150 - 400 K/uL [facility] RBC (Bld) [#/Vol] 2.16 10*6/uL Low [facility] WBC (Bld) [#/Vol] 10.4 10*3/uL 4.5 - 11.5 K/uL [facility] COMPLETE BLOOD COUNTOrdered By: Roe Hall on 05-03-2024 Erythrocyte distribution width (RBC) [Ratio] 17.2 % High 11.5-14.5 [facility] Comment on above: Performed By: #### C BC ####[facility] PATHOLOGY [id number] [place] [address], Hematocrit (Bld) [Volume fraction] 20.3 % Low 41.0-53.0 [facility] Comment on above: Performed By: #### C BC ####[facility] PATHOLOGY [id number] [place] [address], MCH (RBC) [Entitic mass] 31.7 pg Normal 26.0-34.0 [facility] Comment on above: Performed By: #### C BC ####[facility] PATHOLOGY [id number] [place] [address], MCHC (RBC) [Mass/Vol] 33.9 g/dL Normal 32.0-35.9 [facility] Comment on above: Performed By: #### C BC ####[facility] PATHOLOGY [id number] [place] [address], Platelet mean volume (Bld) [Entitic vol] 10.5 fL Normal 7.5-11.2 [facility] Comment on above: Performed By: #### C BC ####[facility] PATHOLOGY [id number] [place] [address], Platelets (Bld) [#/Vol] 72 10*3/uL Low 150-400 [facility] Comment on above: Performed By: #### C BC ####[facility] PATHOLOGY [id number] [place] [address], RBC (Bld) [#/Vol] 2.18 10*6/uL Low 4.50-5.90 [facility] Comment on above: Performed By: #### C BC ####[facility] PATHOLOGY [id number] [place] [address], WBC (Bld) [#/Vol] 10.5 10*3/uL Normal 4.5-11.5 [facility] Comment on above: Performed By: #### C BC ####S PATHOLOGY [id number] [place], COMPLETE BLOOD COUNTOrdered By: Damion Perry on 05-03-2024 Hemoglobin (Bld) [Mass/Vol] 6.9 g/dL Critically low 13.9-16.3 [facility] Comment on above: Performed By: #### C BC ####[facility] PATHOLOGY [id number] [place], MCV (RBC) [Entitic vol] 93 fL Normal 80-100 [facility] Comment on above: Performed By: #### C BC ####[facility] PATHOLOGY [id number] [place], COMPLETE BLOOD COUNTon 05-03 Erythrocyte distribution width (RBC) [Ratio] 17.5 % High 11.5-14.5 [facility] Comment on above: Performed By: #### C BC ####[facility] PATHOLOGY [id number] [place], Hematocrit (Bld) [Volume fraction] 20.1 % Low 41.0-53.0 [facility] Comment on above: Performed By: #### C BC ####[facility] PATHOLOGY [id number] [place], Hemoglobin (Bld) [Mass/Vol] 6.9 g/dL Critically low 13.9-16.3 [facility] Comment on above: Performed By: #### C BC ####[facility] PATHOLOGY [id number] [place], MCH (RBC) [Entitic mass] 32.1 pg Normal 26.0-34.0 [facility] Comment on above: Performed By: #### C BC ####S PATHOLOGY [id number] [place], MCHC (RBC) [Mass/Vol] 34.5 g/dL Normal 32.0-35.9 [facility] Comment on above: Performed By: #### C BC ####S PATHOLOGY [id number] [place], MCV (RBC) [Entitic vol] 93 fL Normal 80-100 [facility] Comment on above: Performed By: #### C BC ####S PATHOLOGY [id number] [place], Platelet mean volume (Bld) [Entitic vol] 10.8 fL Normal 7.5-11.2 [facility] Comment on above: Performed By: #### C BC ####[facility] PATHOLOGY [id number] [place], Platelets (Bld) [#/Vol] 69 10*3/uL Low 150-400 [facility] Comment on above: Performed By: #### C BC ####[facility] PATHOLOGY [id number] [place], RBC (Bld) [#/Vol] 2.16 10*6/uL Low 4.50-5.90 [facility] Comment on above: Performed By: #### C BC ####[facility] PATHOLOGY [id number] [place], WBC (Bld) [#/Vol] 10.4 10*3/uL Normal 4.5-11.5 [facility] Comment on above: Performed By: #### C BC ####[facility] PATHOLOGY [id number] [place], EKG 12 LEAD - PERFORMon 04-15 Diagnosis [facility] P wave Atrium by EKG 81 BPM [facility] P wave axis -4 degrees [facility] P-R Interval 160 ms [facility] Q-T interval 444 ms [facility] Q[facility]T interval corrected 515 ms [facility] QRS axis -9 degrees [facility] QRS duration 174 ms [facility] T wave axis 20 degrees [facility] GLUCOSE, FINGERSTICK-IN OFFI CEon 05-03-2024 Glucose [Mass/Vol] 193 mg/dL High 74 - 109 mg/[facility] Interpretation and review of laboratory results Abnormal [facility] Glucose [Mass/Vol] 193 mg/dL High 74-109 [facility] Comment on above: Performed By: #### 8 [id number] ####NURSING GLUCOSE [id number] [place], [address] Glucose [Mass/Vol] 179 mg/dL High 74 - 109 mg/dL [facility] Interpretation and review of laboratory results Abnormal [facility] Glucose [Mass/Vol] 179 mg/dL High 74-109 [facility] Comment on above: Result Comment: Mateo dai RN, APN, MD Performed By: #### 8 [id number] ####NURSING GLUCOSE [id number] [place], [address] Glucose [Mass/Vol] 222 mg/dL High 74 - 109 mg/dL [facility] Interpretation and review of laboratory results Abnormal [facility] Glucose [Mass/Vol] 222 mg/dL High 74-109 [facility] Comment on above: Performed By: #### 8 9095 ####NURSING GLUCOSE SUTLPTO0029 [place], [address] Glucose [Mass/Vol] 235 mg/dL High 74 - 109 mg/dL [facility] Interpretation and review of laboratory results Abnormal [facility] Glucose [Mass/Vol] 235 mg/dL High 74-109 [facility] Comment on above: Result Comment: Mateo dai RN, APN, MD Performed By: #### 8 6794 ####NURSING GLUCOSE [id number] [place], [address] Glucose [Mass/Vol] 279 mg/dL High 74 - 109 mg/dL [facility] Interpretation and review of laboratory results Abnormal [facility] Glucose [Mass/Vol] 279 mg/dL High 74-109 [facility] Comment on above: Performed By: #### 8 9403 ####NURSING GLUCOSE BELROVN9458 [place], [address] Laboratory - Blood bankon Major crossmatch [Interp] Compatible (E) [facility] MAGNESIUMon 05-03-2024 Interpretation and review of laboratory results Normal [facility] Magnesium [Mass/Vol] 2.0 mg/dL 1.9 - 2 .7 mg/dL [facility] Magnesium [Mass/Vol] 2.0 mg/dL Normal 1.9-2.7 [facility] Comment on above: Performed By: #### C H8, PHOS, MG ####[facility] [id number] [place], No Panel InformationOrdered By: Smith Reese on 05-03-2024 [facility] No Panel Informationon 05-03 Blood Product Code [id number] [facility] Product Description Red Blood Cells [facility] Blood Product Unit Type 6200 [facility] Status Released to [facility] PHOSPHORUSon 05-03-2024 Interpretation and review of laboratory results Abnormal [facility] Phosphate [Mass/Vol] 5.2 mg/dL High 2.5 - 5 .0 mg/dL [facility] Phosphate [Mass/Vol] 5.2 mg/dL High 2.5-5.0 [facility] Comment on above: Performed By: #### C H8, PHOS, MG ####[facility] [id number] [place], Progress Noteson 05-03-2024 Securities Adviser Authentication Interface Message Text Normal [facility] Securities Adviser Authentication Interface Message Text Normal [facility] Securities Adviser Authentication Interface Message Text Normal [facility] Securities Adviser Authentication Interface Message Text Dr. Pierce notified of critical Hemoglobin value of 6.9. Dr. Pierce read back critical results. New orders received. Normal [facility] Securities Adviser Authentication Interface Message Text Dr. Pierce notified of critical Hemoglobin value of 6.9. Dr. Pierce read back critical results. New orders received. Normal [facility] RED BLOOD CELL COMPONENTon 1 BB Order Item Product status info to follow Normal [facility] Comment on above: Performed By: #### R VINAYAK ####[facility] [id number] [place], [facility] RED BLOOD CELL UNIT STATUSon 05-03-2024 Blood product unit Nom (BPU) [ID] [id number] [facility] Blood product unit Nom (BPU) [ID] [id number] [facility] BLOOD PRODUCT CODE [id number] Normal [facility] Comment on above: Performed By: #### R BU ####[facility] [id number] [place], BLOOD PRODUCT DESCRIPTION Red Blood Cells Normal [facility] Comment on above: Performed By: #### R BU ####[facility] [id number] [place], BLOOD PRODUCT STATUS Transfused Normal [facility] Comment on above: Performed By: #### R BU ####[facility] [id number] [place], BLOOD PRODUCT UNIT INFO [id number] Normal [facility] Comment on above: Performed By: #### R BU ####[facility] [id number] [place], BLOOD PRODUCT UNIT TYPE 6200 Normal [facility] Comment on above: Result Comment: A Po s Performed By: #### R BU ####[facility] SOPNUEBLKD5162 [place], CROSSMATCH INTERPRETATION Compatible (E) Normal [facility] Comment on above: Performed By: #### R BU ####S PATHOLOGY [id number] [place], XR CHEST AP OR PA 1 VIEWon 1 XR CHEST AP OR PA 1 VIEW Normal [facility] XR Chest Single viewon 05-03 EXAMINATION: XR CHES T AP OR PA 1 VIEW 05/03/2024 08:23 [...] pneumothorax. Otherwise unchanged pulmonary findings as detailed. RADIOLOGY True York MD - 05/03/2024 EXAMINATION: XR CHEST AP OR PA 1 [...] pneumothorax. Otherwise unchanged pulmonary findings as detailed. [facility]OLOGY [facility] Rad[facility] Study observation (narrative) [facility] XR Chest Single viewOrdered By: True York on 05-03-2024 [facility] Work Phone: Anesthesia Postprocedure Ashli luationon 05-02-2024 Securities Adviser Authentication Interface Message Text Normal [facility] Anesthesia Preprocedure Eval uationon 05-02-2024 Securities Adviser Authentication Interface Message Text Normal [facility] Anesthesia Transfer Of Careo n 05-02-2024 Securities Adviser Authentication Interface Message Text Normal [facility] BASIC METABOLIC PANELon 04-14 Anion gap [Moles/Vol] 20 mmol/L Normal 05-03 [facility] Comment on above: Performed By: #### P HOS, CH8, MG ####[facility] [id number] [place], [address] Calcium [Mass/Vol] 8.4 mg/dL Low 8.6-10.3 [facility] Comment on above: Performed By: #### P HOS, CH8, MG ####[facility] IOLRKJDXHC1698 [place], Chloride [Moles/Vol] 98 mmol/L Normal 98-107 [facility] Comment on above: Performed By: #### P JULIETTE SMITH, MG ####[facility] PPKCQARUOI1014 [place], CO2 [Moles/Vol] 19 mmol/L Low 21-31 [facility] Comment on above: Performed By: #### P FLORENCIA SMITH8, MG ####[facility] TNHGGKKVIS3968 [place], Creatinine [Mass/Vol] 5.71 mg/dL High 0.70-1.30 [facility] Comment on above: Performed By: #### JULIETTE LUBIN, MG ####[facility] [id number] [place], ESTIMATED GFR (CKD-EPI) 11 mL/min/1.73sqm Low >=60 [facility] Comment on above: Result Comment: 2020 CKD EPI Equation using Creatinine without RaceComment: Estimated glomerular filtration rate (eGFR) is calculated without a race coefficient. Values should be interpreted in the context of the patient's full clinical presentation.Reference:1. Christophe C, Barichelle M, Gena DC, et al.. A Unifying Approach for GFR Estimation: Recommendations of the NKF-ASN Task Force on Reassessing the Inclusion of Race in Diagnosing Kidney Disease. [place] Journal of Kidney Diseases 2021;79(2):268-88.e1.2. N Engl J Med 2020 Vol. 385 Issue 19 Pages 9413-2931 Performed By: #### P HOS CH8, MG ####[facility] [id number] [place], Glucose [Mass/Vol] 293 mg/dL High 74-109 [facility] Comment on above: Performed By: #### P FLORENCIA SMITH8, MG ####[facility] ICCYEVHJFQ2907 [place], Potassium [Moles/Vol] 5.5 mmol/L High 3.5-5.0 [facility] Comment on above: Performed By: #### P HOS, CH8, MG ####[facility] [id number] [place], Sodium [Moles/Vol] 131 mmol/L Low 136-145 [facility] Comment on above: Performed By: #### P HOS, CH8, MG ####[facility] [id number] [place], Urea nitrogen [Mass/Vol] 31 mg/dL High 7-25 [facility] Comment on above: Performed By: #### P HOS, CH8, MG ####[facility] VEAISRHWZY0914 [place], Anion gap [Moles/Vol] 14 mmol/L Normal 10-20 [facility] Comment on above: Performed By: #### P HOS, CH8, MG ####[facility] GSKSWRJHQG9901 [place], Calcium [Mass/Vol] 8.2 mg/dL Low 8.6-10.3 [facility] Comment on above: Performed By: #### P HOS, CH8, MG ####[facility] DCYHHWFXKN0445 [place], Chloride [Moles/Vol] 98 mmol/L Normal 98-107 [facility] Comment on above: Performed By: #### P HOS, CH8, MG ####[facility] ALKHWZPGFS6662 [place], CO2 [Moles/Vol] 27 mmol/L Normal 21-31 [facility] Comment on above: Performed By: #### P HOS, CH8, MG ####[facility] KILVRMBRNB1610 [place], Creatinine [Mass/Vol] 4.89 mg/dL High 0.70-1.30 [facility] Comment on above: Performed By: #### P HOS, CH8, MG ####[facility] WXJLTNLBKG0515 [place], ESTIMATED GFR (CKD-EPI) 13 mL/min/1.73sqm Low >=60 [facility] Comment on above: Result Comment: 2020 CKD EPI Equation using Creatinine without RaceComment: Estimated glomerular filtration rate (eGFR) is calculated without a race coefficient. Values should be interpreted in the context of the patient's full clinical presentation.Reference:1. Christophe C, Sagrario M, Gena YUAN, et al.. A Unifying Approach for GFR Estimation: Recommendations of the NKF-ASN Task Force on Reassessing the Inclusion of Race in Diagnosing Kidney Disease. [place] Journal of Kidney Diseases 2021;79(2):268-88.e1.2. N Engl J Med 1 Vol. 385 Issue 19 Pages 4425-7712 Performed By: #### P HOS, CH8, MG ####[facility] ICPGLNTXKD2623 [place], Glucose [Mass/Vol] 223 mg/dL High 74-109 [facility] Comment on above: Performed By: #### P HOS, CH8, MG ####[facility] [id number] [place], Potassium [Moles/Vol] 4.7 mmol/L Normal 3.5-5.0 [facility] Comment on above: Performed By: #### P HOS, CH8, MG ####[facility] HXHDKHHYKH1080 [place], Sodium [Moles/Vol] 134 mmol/L Low 136-145 [facility] Comment on above: Performed By: #### P HOS, CH8, MG ####[facility] ULUNOJNNIQ2886 [place], Urea nitrogen [Mass/Vol] 23 mg/dL Normal 7-25 [facility] Comment on above: Performed By: #### P HOS, CH8, MG ####[facility] [id number] [place], BLOOD GAS, ARTERIALon 2023 Base excess Calc (Bld) [Moles/Vol] -5.2000 mmol/L Low -2.0 - 3.0 mmol/L [facility] CO2 (Bld) [Partial pressure] 43.2 mm[Hg] [facility] FIO2 3 LPM [facility] HCO3 (Bld) [Moles/Vol] 20 mmol/L Low 21 - 28 mmol/L [facility] Interpretation and review of laboratory results Abnormal [facility] Oxygen (Bld) [Partial pressure] 83 mm[Hg] [facility] Oxygen gas flow Oxygen delivery system BIPAP [facility] pH (Bld) 7.296 [pH] Low 7.350 - 7.450 [facility] CR ANAYA -5.2 mmol/L Low -2.0-3.0 [facility] Comment on above: Performed By: #### C R BGA ####[facility] PATHOLOGY [id number] [place], CR PCO2 43.2 mm Hg Normal 35.0-45.0 [facility] Comment on above: Performed By: #### C R BGA ####[facility] PATHOLOGY [id number] [place] [address], CR PHA 7.296 Low 7.350-7.450 [facility] Comment on above: Performed By: #### C R BGA ####[facility] PATHOLOGY [id number] [place] [address], CR PO2 83 mm Hg Normal 80-100 [facility] Comment on above: Performed By: #### C R BGA ####[facility] PATHOLOGY ERSEKUETRZ4917[address] [place] [address], FIO2 (CATEGORY) 3 LPM Normal [facility] Comment on above: Performed By: #### C R BGA ####S PATHOLOGY [id number] [place], HCO3 (Bld) [Moles/Vol] 20 mmol/L Low 21-28 [facility] Comment on above: Performed By: #### C R BGA ####[facility] PATHOLOGY [id number] [place], MODE BIPAP Normal [facility] Comment on above: Performed By: #### C R BGA ####S PATHOLOGY DPEHHBSFHJ9270[address] [place] [address], Oxygen saturation in Blood 95.9 % Normal 95.0-99.0 [facility] Comment on above: Performed By: #### C R BGA ####[facility] PATHOLOGY OSILEWUVMY5104[address] [place] [address], Base excess Calc (Bld) [Moles/Vol] 0.4 mmol/L -2.0 - 3.0 mmol/L [facility] CO2 (Bld) [Partial pressure] 40.7 mm[Hg] [facility] Oxygen (Bld) [Partial pressure] 165 mm[Hg] High [facility] pH (Bld) 7.400 [pH] 7.350 - 7.450 [facility] CR ANAYA 0.4 mmol/L Normal -2.0-3.0 [facility] Comment on above: Performed By: #### L ACT, CR GLU, CR ICA, CR LYTES, CR BGA, CR COOX ####[facility] PATHOLOGY ZKOCUFZPCA0739[address] [place] [address], CR PCO2 40.7 mm Hg Normal 35.0-45.0 [facility] Comment on above: Performed By: #### L ACT, CR GLU, CR ICA, CR LYTES, CR BGA, CR COOX ####[facility] PATHOLOGY COINLGXWSQ4129[address] [place] [address], CR PHA 7.400 Normal 7.350-7.450 [facility] Comment on above: Performed By: #### L ACT, CR GLU, CR ICA, CR LYTES, CR BGA, CR COOX ####[facility] PATHOLOGY [id number] [place] [address], CR PO2 165 mm Hg High 80-100 [facility] Comment on above: Performed By: #### L ACT, CR GLU, CR ICA, CR LYTES, CR BGA, CR COOX ####[facility] PATHOLOGY [id number] [place] [address], HCO3 (Bld) [Moles/Vol] 25 mmol/L Normal 21-28 [facility] Comment on above: Performed By: #### L ACT, CR GLU, CR ICA, CR LYTES, CR BGA, CR COOX ####[facility] PATHOLOGY [id number] [place] [address], Oxygen saturation in Blood 97.5 % Normal 95.0-99.0 [facility] Comment on above: Performed By: #### L ACT, CR GLU, CR ICA, CR LYTES, CR BGA, CR COOX ####[facility] PATHOLOGY [id number] [place] [address], CR ANAYA 0.6 mmol/L Normal -2.0-3.0 [facility] Comment on above: Performed By: #### C R BGA ####[facility] PATHOLOGY [id number] [place] [address], CR PCO2 43.0 mm Hg Normal 35.0-45.0 [facility] Comment on above: Performed By: #### C R BGA ####[facility] PATHOLOGY [id number] [place] [address], CR PHA 7.386 Normal 7.350-7.450 [facility] Comment on above: Performed By: #### C R BGA ####[facility] PATHOLOGY [id number] [place] [address], CR PO2 165 mm Hg High 80-100 [facility] Comment on above: Performed By: #### C R BGA ####[facility] PATHOLOGY [id number] [place] [address], FIO2 (CATEGORY) 21% Normal [facility] Comment on above: Performed By: #### C R BGA ####[facility] PATHOLOGY [id number] [place] [address], HCO3 (Bld) [Moles/Vol] 25 mmol/L Normal 21-28 [facility] Comment on above: Performed By: #### C R BGA ####[facility] PATHOLOGY [id number] [place] [address], MODE Not Indicated Normal [facility] Comment on above: Performed By: #### C R BGA ####[facility] PATHOLOGY [id number] [place] [address], Oxygen saturation in Blood 97.9 % Normal 95.0-99.0 [facility] Comment on above: Performed By: #### C R BGA ####[facility] PATHOLOGY [id number] [place] [address], Base excess Calc (Bld) [Moles/Vol] 0.8 mmol/L -2.0 - 3.0 mmol/L [facility] CO2 (Bld) [Partial pressure] 50.8 mm[Hg] High [facility] FIO2 3 LPM [facility] HCO3 (Bld) [Moles/Vol] 27 mmol/L 21 - 28 mmol/L [facility] Interpretation and review of laboratory results Abnormal [facility] Oxygen (Bld) [Partial pressure] 74 mm[Hg] Low [facility] Oxygen gas flow Oxygen delivery system BIPAP [facility] pH (Bld) 7.338 [pH] Low 7.350 - 7.450 [facility] CR ANAYA 0.8 mmol/L Normal -2.0-3.0 [facility] Comment on above: Performed By: #### C R BGA ####[facility] PATHOLOGY [id number] [place] [address], CR PCO2 50.8 mm Hg High 35.0-45.0 [facility] Comment on above: Performed By: #### C R BGA ####[facility] PATHOLOGY SYOLZKVEHE419[address] [place] [address], CR PHA 7.338 Low 7.350-7.450 [facility] Comment on above: Performed By: #### C R BGA ####[facility] PATHOLOGY [id number] [place] [address], CR PO2 74 mm Hg Low 80-100 [facility] Comment on above: Performed By: #### C R BGA ####S PATHOLOGY FSZRKXNJHN5927[address] [place] [address], FIO2 (CATEGORY) 3 LPM Normal [facility] Comment on above: Performed By: #### C R BGA ####S PATHOLOGY UYIEMAYKBE6277 [place], HCO3 (Bld) [Moles/Vol] 27 mmol/L Normal 21-28 [facility] Comment on above: Performed By: #### C R BGA ####[facility] PATHOLOGY [id number] [place] [address], MODE BIPAP Normal [facility] Comment on above: Performed By: #### C R BGA ####[facility] [id number] [place], Oxygen saturation in Blood 95.8 % Normal 95.0-99.0 [facility] Comment on above: Performed By: #### C R BGA ####[facility] UGZIJVTYUT6997 [place], BLOOD GAS, ARTERIALOrdered B y: Veronica Islasl on 05-02-2024 Base excess Calc (Bld) [Moles/Vol] 0.6 mmol/L -2.0 - 3.0 mmol/L [facility] CO2 (Bld) [Partial pressure] 43.0 mm[Hg] [facility] FIO2 21% [facility] HCO3 (Bld) [Moles/Vol] 25 mmol/L 21 - 28 mmol/L [facility] Interpretation and review of laboratory results Abnormal [facility] Oxygen (Bld) [Partial pressure] 165 mm[Hg] High [facility] Oxygen gas flow Oxygen delivery system Not Indicated [facility] pH (Bld) 7.386 [pH] 7.350 - 7.450 [facility] Basic metabolic 2000 panelon 05-02-2024 Anion gap [Moles/Vol] 20 mmol/L 10 - 20 [facility] Cal[facility] [Mass/Vol] 8.4 mg/dL Low 8.6 - 10. 3 mg/dL [facility] Chloride [Moles/Vol] 98 mmol/L 98 - 10 7 mmol/L [facility] CO2 [Moles/Vol] 19 mmol/L Low 21 - 31 mmol/L [facility] Creatinine [Mass/Vol] 5.71 mg/dL High 0.70 - 1.30 mg/dL [facility] GFR/1.73 sq M.predicted CKD-EPI (S/P/Bld) [Vol rate/Area] 11 Low - PINF [facility] Glucose [Mass/Vol] 293 mg/dL High 74 - 109 mg/dL [facility] Potassium [Moles/Vol] 5.5 mmol/L High 3.5 - 5.0 mmol/L [facility] Sodium [Moles/Vol] 131 mmol/L Low 136 - 145 mmol/L [facility] Urea nitrogen [Mass/Vol] 31 mg/dL High 7 - 25 mg/dL [facility] Anion gap [Moles/Vol] 14 mmol/L 10 - 20 [facility] Calcium [Mass/Vol] 8.2 mg/dL Low 8.6 - 10. 3 mg/dL [facility] Chloride [Moles/Vol] 98 mmol/L 98 - 10 7 mmol/L [facility] CO2 [Moles/Vol] 27 mmol/L 21 - 31 mmol/L [facility] Creatinine [Mass/Vol] 4.89 mg/dL High 0.70 - 1.30 mg/dL [facility] GFR/1.73 sq M.predicted CKD-EPI (S/P/Bld) [Vol rate/Area] 13 Low - PINF [facility] Glucose [Mass/Vol] 223 mg/dL High 74 - 109 mg/dL [facility] Interpretation and review of laboratory results Abnormal [facility] Potassium [Moles/Vol] 4.7 mmol/L 3.5 - 5.0 mmol/L [facility] Sodium [Moles/Vol] 134 mmol/L Low 136 - 145 mmol/L [facility] Urea nitrogen [Mass/Vol] 23 mg/dL 7 - 25 mg/dL [facility] Blood Attestationon 05-02-20 24 Securities Adviser Authentication Interface Message Text Normal [facility] CALCIUM, IONIZEDon 4 Calcium.ionized (Bld) [Moles/Vol] 1.14 mmol/L Low 1.15 - 1.33 mmol/L [facility] Interpretation and review of laboratory results Abnormal [facility] CR ICA 1.14 mmol/L Low 1.15-1.33 [facility] Comment on above: Result Comment: This test was developed, and its performance characteristics determined by the Department of Pathology of [facility]. It has not been cleared or approved by the FDA. This test is used for clinical purposes only. Performed By: #### C R ICA ####[facility] [id number] [place], [address] Calcium.ionized (Bld) [Moles/Vol] 1.09 mmol/L Low 1.15 - 1.33 mmol/L [facility] CR ICA 1.09 mmol/L Low 1.15-1.33 [facility] Comment on above: Result Comment: This test was developed, and its performance characteristics determined by the Department of Pathology of [facility]. It has not been cleared or approved by the FDA. This test is used for clinical purposes only. Performed By: #### L ACT, CR GLU, CR ICA, CR LYTES, CR BGA, CR COOX ####[facility] [id number] [place], CR ICA 1.16 mmol/L Normal 1.15-1.33 [facility] Comment on above: Result Comment: This test was developed, and its performance characteristics determined by the Department of Pathology of [facility]. It has not been cleared or approved by the FDA. This test is used for clinical purposes only. Performed By: #### C R ICA ####[facility] [id number] [place], [place], CALCIUM, IONIZEDOrdered By: Marta Feng on 05-02-2024 Calcium.ionized (Bld) [Moles/Vol] 1.16 mmol/L 1.15 - 1.33 mmol/L [facility]ation [facility] review of [facility] results Normal [facility] CBC panel Auto (Bld)on 05-02 Erythrocyte distribution width (RBC) [Ratio] 17.6 % High 11.5 - 14.5 % [facility] Hematocrit (Bld) [Volume fraction] 25.6 % Low 41.0 - 53.0 % [facility] Hemoglobin (Bld) [Mass/Vol] 8.5 g/dL Low 13.9 - 16.3 g/dL [facility] Interpretation and review of laboratory results Abnormal [facility] MCH (RBC) [Entitic mass] 31.3 pg 26.0 - 34.0 pg [facility] MCHC (RBC) [Mass/Vol] 33.3 g/dL 32.0 - 35.9 g/dL [facility] MCV (RBC) [Entitic vol] 94 fL 80 - 100 fL [facility] Platelet mean volume (Bld) [Entitic vol] 10.5 fL 7.5 - 11.2 fL [facility] Platelets (Bld) [#/Vol] 83 10*3/uL Low 150 - 400 K/uL [facility] RBC (Bld) [#/Vol] 2.72 10*6/uL Low [facility] WBC (Bld) [#/Vol] 15.2 10*3/uL High 4.5 - 11.5 K/uL [facility] Erythrocyte distribution width (RBC) [Ratio] 18.0 % High 11.5 - 14.5 % [facility] Hematocrit (Bld) [Volume fraction] 29.9 % Low 41.0 - 53.0 % [facility] Hemoglobin (Bld) [Mass/Vol] 9.8 g/dL Low 13.9 - 16.3 g/dL [facility] Interpretation and review of laboratory results Abnormal [facility] MCH (RBC) [Entitic mass] 30.5 pg 26.0 - 34.0 pg [facility] MCHC (RBC) [Mass/Vol] 32.7 g/dL 32.0 - 35.9 g/dL [facility] MCV (RBC) [Entitic vol] 93 fL 80 - 100 fL [facility] Platelet mean volume (Bld) [Entitic vol] 10.2 fL 7.5 - 11.2 fL [facility] Platelets (Bld) [#/Vol] 81 10*3/uL Low 150 - 400 K/uL [facility] RBC (Bld) [#/Vol] 3.21 10*6/uL Low [facility] WBC (Bld) [#/Vol] 11.2 10*3/uL 4.5 - 11.5 K/uL [facility] CO-OXIMETERon 05-02-2024 Carboxyhemoglobin (BldA) [Mass fraction] 1.1 % 0.5 - 1.5 % [facility] Hematocrit (BldA) [Volume fraction] 29.6 % Low 42.0 - 54.0 % [facility] Hemoglobin (Bld) [Mass/Vol] 9.6 g/dL Low 13.5 - 17.5 g/dL [facility] Methemoglobin (BldA) [Mass fraction] 0.6 % 0.0 - 1.5 % [facility] Oxyhemoglobin (BldA) [Mass fraction] 95.8 % 94.0 - 98.0 % [facility] CARBOXYHEMOGLOBIN 1.1 % Normal 0.5-1.5 [facility] Comment on above: Performed By: #### L ACT, CR GLU, CR ICA, CR LYTES, CR BGA, CR COOX ####[facility] PATHOLOGY [id number] [place], CR HBMET 0.6 % Normal 0.0-1.5 [facility] Comment on above: Performed By: #### L ACT, CR GLU, CR ICA, CR LYTES, CR BGA, CR COOX ####[facility] PATHOLOGY [id number] [place] [address], Hematocrit (Bld) [Volume fraction] 29.6 % Low 42.0-54.0 [facility] Comment on above: Performed By: #### L ACT, CR GLU, CR ICA, CR LYTES, CR BGA, CR COOX ####[facility] PATHOLOGY [id number] [place] [address], Hemoglobin (Bld) [Mass/Vol] 9.6 g/dL Low 13.5-17.5 [facility] Comment on above: Performed By: #### L ACT, CR GLU, CR ICA, CR LYTES, CR BGA, CR COOX ####[facility] PATHOLOGY [id number] [place] [address], OXYHEMOGLOBIN 95.8 % Normal 94.0-98.0 [facility] Comment on above: Performed By: #### L ACT, CR GLU, CR ICA, CR LYTES, CR BGA, CR COOX ####[facility] PATHOLOGY [id number] [place] [address], COMPLETE BLOOD COUNTon 05-02 Erythrocyte distribution width (RBC) [Ratio] 17.6 % High 11.5-14.5 [facility] Comment on above: Performed By: #### C BC ####[facility] PATHOLOGY [id number] [place] [address], Hematocrit (Bld) [Volume fraction] 25.6 % Low 41.0-53.0 [facility] Comment on above: Performed By: #### C BC ####[facility] PATHOLOGY [id number] [place] [address], Hemoglobin (Bld) [Mass/Vol] 8.5 g/dL Low 13.9-16.3 [facility] Comment on above: Performed By: #### C BC ####S PATHOLOGY [id number] [place], MCH (RBC) [Entitic mass] 31.3 pg Normal 26.0-34.0 [facility] Comment on above: Performed By: #### C BC ####S PATHOLOGY [id number] [place], MCHC (RBC) [Mass/Vol] 33.3 g/dL Normal 32.0-35.9 [facility] Comment on above: Performed By: #### C BC ####[facility] PATHOLOGY [id number] [place], MCV (RBC) [Entitic vol] 94 fL Normal 80-100 [facility] Comment on above: Performed By: #### C BC ####[facility] PATHOLOGY [id number] [place], Platelet mean volume (Bld) [Entitic vol] 10.5 fL Normal 7.5-11.2 [facility] Comment on above: Performed By: #### C BC ####[facility] PATHOLOGY [id number] [place], Platelets (Bld) [#/Vol] 83 10*3/uL Low 150-400 [facility] Comment on above: Performed By: #### C BC ####[facility] PATHOLOGY [id number] [place], RBC (Bld) [#/Vol] 2.72 10*6/uL Low 4.50-5.90 [facility] Comment on above: Performed By: #### C BC ####[facility] PATHOLOGY [id number] [place], WBC (Bld) [#/Vol] 15.2 10*3/uL High 4.5-11.5 [facility] Comment on above: Performed By: #### C BC ####S PATHOLOGY [id number] [place], Erythrocyte distribution width (RBC) [Ratio] 18.0 % High 11.5-14.5 [facility] Comment on above: Performed By: #### C BC ####[facility] PATHOLOGY [id number] [place], Hematocrit (Bld) [Volume fraction] 29.9 % Low 41.0-53.0 [facility] Comment on above: Performed By: #### C BC ####[facility] PATHOLOGY [id number] [place], Hemoglobin (Bld) [Mass/Vol] 9.8 g/dL Low 13.9-16.3 [facility] Comment on above: Performed By: #### C BC ####[facility] PATHOLOGY [id number] [place], MCH (RBC) [Entitic mass] 30.5 pg Normal 26.0-34.0 [facility] Comment on above: Performed By: #### C BC ####[facility] PATHOLOGY [id number] [place], MCHC (RBC) [Mass/Vol] 32.7 g/dL Normal 32.0-35.9 [facility] Comment on above: Performed By: #### C BC ####[facility] PATHOLOGY [id number] [place], MCV (RBC) [Entitic vol] 93 fL Normal 80-100 [facility] Comment on above: Performed By: #### C BC ####[facility] PATHOLOGY [id number] [place], Platelet mean volume (Bld) [Entitic vol] 10.2 fL Normal 7.5-11.2 [facility] Comment on above: Performed By: #### C BC ####[facility] PATHOLOGY [id number] [place], Platelets (Bld) [#/Vol] 81 10*3/uL Low 150-400 [facility] Comment on above: Performed By: #### C BC ####[facility] PATHOLOGY [id number] [place], RBC (Bld) [#/Vol] 3.21 10*6/uL Low 4.50-5.90 [facility] Comment on above: Performed By: #### C BC ####[facility] PATHOLOGY [id number] [place], WBC (Bld) [#/Vol] 11.2 10*3/uL Normal 4.5-11.5 [facility] Comment on above: Performed By: #### C BC ####[facility] PATHOLOGY [id number] [place], Consultson 05-02-2024 Securities Adviser Authentication Interface Message Text OCCUPATIONAL THERAPY Consult received and chart reviewed: Patient off the unit in the OR. Will continue to follow Derian Vargas OTR/L Normal [facility] MSI Methylation Sciencesation Interface Message Text PHYSICAL THERAPY Consult received, chart reviewed. Plan for OR today with ortho for ORIF of R femur, acetabulum and pelvis. PT will f/u post-op. Robyn Fernández DPT Preferred secure chat Fri/Sat/Sun only Normal [facility] ELECTROLYTESon 05-02-2024 Chloride [Moles/Vol] 100 mmol/L 98 - 10 7 mmol/L [facility] Potassium [Moles/Vol] 4.3 mmol/L 3.5 - 5.0 mmol/L [facility] Sodium [Moles/Vol] 133 mmol/L Low 136 - 146 mmol/L [facility] Chloride [Moles/Vol] 100 mmol/L Normal 98-107 [facility] Comment on above: Performed By: #### L ACT, CR GLU, CR ICA, CR LYTES, CR BGA, CR COOX ####[facility] PATHOLOGY [id number] [place], Potassium [Moles/Vol] 4.3 mmol/L Normal 3.5-5.0 [facility] Comment on above: Performed By: #### L ACT, CR GLU, CR ICA, CR LYTES, CR BGA, CR COOX ####[facility] PATHOLOGY [id number] [place], Sodium [Moles/Vol] 133 mmol/L Low 136-146 [facility] Comment on above: Performed By: #### L ACT, CR GLU, CR ICA, CR LYTES, CR BGA, CR COOX ####[facility] [id number] [place], [address] FFPon 05-02-2024 BB Order Item Product status info to follow [facility] GLUCOSE, FINGERSTICK-IN OFFI CEon 05-02-2024 Glucose [Mass/Vol] 308 mg/dL High 74 - 109 mg/dL [facility] Interpretation and review of laboratory results Abnormal [facility] Glucose [Mass/Vol] 308 mg/dL High 74-109 [facility] Comment on above: Performed By: #### 8 [id number] ####NURSING GLUCOSE [id number] [place], [address] Glucose [Mass/Vol] 306 mg/dL High 74 - 109 mg/dL [facility] Interpretation and review of laboratory results Abnormal [facility] Glucose [Mass/Vol] 306 mg/dL High 74-109 [facility] Comment on above: Result Comment: Mateo dai RN, APN, MD Performed By: #### 8 [id number] ####NURSING GLUCOSE [id number] [place], [address] Glucose [Mass/Vol] 276 mg/dL High 74 - 109 mg/dL [facility] Interpretation and review of laboratory results Abnormal [facility] Glucose [Mass/Vol] 276 mg/dL High 74-109 [facility] Comment on above: Result Comment: Mateo dai RN, APN, MD Performed By: #### 8 2907 ####NURSING GLUCOSE [id number] [place], [address] Glucose [Mass/Vol] 210 mg/dL High 74 - 109 mg/dL [facility] Interpretation and review of laboratory results Abnormal [facility] Glucose [Mass/Vol] 210 mg/dL High 74-109 [facility] Comment on above: Result Comment: Mateo dai RN, APN, MD Performed By: #### 8 6199 ####NURSING GLUCOSE [id number] [place], [address] GLUCOSE, WHOLE BLOODon 05-02 Glucose [Mass/Vol] 190 mg/dL High 70 - 105 mg/dL [facility] CR GLU 190 mg/dL High 70-105 [facility] Comment on above: Performed By: #### L ACT, CR GLU, CR ICA, CR LYTES, CR BGA, CR COOX ####[facility] [id number] [place], H AND Nelson 05-02-2024 Securities Adviser Authentication Interface Message Text Normal [facility] LACTIC ACIDon 05-02-2024 Interpretation and review of laboratory results Normal [facility] Lactate [Moles/Vol] 1.3 mmol/L 0.5 - 1. 6 mmol/L [facility] CR LACT 1.3 mmol/L Normal 0.5-1.6 [facility] Comment on above: Performed By: #### L ACT, CR GLU, CR ICA, CR LYTES, CR BGA, CR COOX ####[facility] [id number] [place], Laboratory - Chemistry and C hemistry - challengeon 05-02-2024 HCO3 (Bld) [Moles/Vol] 25 mmol/L 21 - 28 mmol/L [facility] MAGNESIUMon 05-02-2024 Interpretation and review of laboratory results Normal [facility] Magnesium [Mass/Vol] 2.0 mg/dL 1.9 - 2 .7 mg/dL [facility] Magnesium [Mass/Vol] 2.0 mg/dL Normal 1.9-2.7 [facility] Comment on above: Performed By: #### P HOS, CH8, MG ####[facility] [id number] [place], Magnesium [Mass/Vol] 2.0 mg/dL 1.9 - 2 .7 mg/dL [facility] Magnesium [Mass/Vol] 2.0 mg/dL Normal 1.9-2.7 [facility] Comment on above: Performed By: #### P HOS, CH8, MG ####[facility] [id number] [place], No Panel Informationon 05-02 Blood Product Code [id number] [facility] Blood Product Description FFP [facility] Blood Product Unit Type 6200 [facility] Status Released to [facility] Interpretation and review of laboratory results Abnormal [facility] Interpretation and review of laboratory results Abnormal [facility] Interpretation and review of laboratory results Normal [facility] OP Noteon 05-02-2024 Securities Adviser Authentication Interface Message Text Normal [facility] OR Nursingon 05-02-2024 Securities Adviser Authentication Interface Message Text Report called to 5w rn Normal [facility] Securities Adviser Authentication Interface Message Text Report called to 5w rn Normal [facility] PHOSPHORUSon 05-02-2024 Phosphate [Mass/Vol] 5.4 mg/dL High 2.5 - 5 .0 mg/dL [facility] Phosphate [Mass/Vol] 5.4 mg/dL High 2.5-5.0 [facility] Comment on above: Performed By: #### P SARAH CH8, MG ####[facility] [id number] [place], Phosphate [Mass/Vol] 4.2 mg/dL 2.5 - 5 .0 mg/dL [facility] Phosphate [Mass/Vol] 4.2 mg/dL Normal 2.5-5.0 [facility] Comment on above: Performed By: #### P HOS, CH8, MG ####[facility] [id number] [place], PLASMA STATUSon 05-02-2024 Blood product unit Nom (BPU) [ID] [id number] [facility] Blood product unit Nom (BPU) [ID] [id number] [facility] BLOOD PRODUCT CODE [id number] Normal [facility] Comment on above: Performed By: #### F FU ####[facility] [id number] [place], BLOOD PRODUCT DESCRIPTION FFP Normal [facility] Comment on above: Performed By: #### F FU ####[facility] TRRRUFSOVR0040 [place], BLOOD PRODUCT UNIT INFO [id number] Normal [facility] Comment on above: Performed By: #### F FU ####[facility] [id number] [place], BLOOD PRODUCT UNIT INFO [id number] Normal [facility] Comment on above: Performed By: #### F FU ####[facility] [id number] [place], Progress Noteson 05-02-2024 Securities Adviser Authentication Interface Message Text Normal [facility] Securities Adviser Authentication Interface Message Text Normal [facility] RED BLOOD CELL COMPONENTon 1 BB Order Item Product status info to follow [facility] BB ORDER ITEM Product status info to follow Normal [facility] Comment on above: Performed By: #### Tereso VINAYAK ####S PATHOLOGY [id number] [place], Performed By: #### Henri FO ####S PATHOLOGY [id number] [place] [address], RED BLOOD CELL UNIT STATUSon 05-02-2024 BLOOD PRODUCT CODE [id number] Normal [facility] Comment on above: Performed By: #### Tereso HURTADO ####S PATHOLOGY [id number] [place] [address], BLOOD PRODUCT DESCRIPTION Red Blood Cells Normal [facility] Comment on above: Performed By: #### Tereso HURTADO ####S PATHOLOGY [id number] [place], BLOOD PRODUCT STATUS Released to avail Normal [facility] Comment on above: Performed By: #### Tereso HURTADO ####[facility] [id number] [place], Performed By: #### Henri FU ####S PATHOLOGY [id number] [place], BLOOD PRODUCT UNIT INFO [id number] Normal [facility] Comment on above: Performed By: #### R BRYANT ####[facility] EINNOBLIIO2641 [place], BLOOD PRODUCT UNIT INFO [id number] Normal [facility] Comment on above: Performed By: #### R BU ####[facility] [id number] [place], BLOOD PRODUCT UNIT TYPE 6200 Normal [facility] Comment on above: Result Comment: A Po s Performed By: #### R BRYANT ####[facility] [id number] [place], Performed By: #### F FU ####[facility] PATHOLOGY [id number] [place], CROSSMATCH INTERPRETATION Compatible (E) Normal [facility] Comment on above: Performed By: #### R BU ####[facility] PATHOLOGY [id number] [place], XR PELVIS SINGLE VIEWon 04-14 XR PELVIS SINGLE VIEW Normal [facility] XR Pelvis Single viewon 04-14 RADIOLOGY [facility] Radiology Study observation (narrative) [facility] XR Pelvis Single viewOrdered By: True York on 05-02-2024 [facility] Phone: APTEMon 05-01-2024 A-ANGLE 69 Degrees Normal 65-80 [facility] Comment on above: Order Comment: APTEM should be compared to EXTEM in order to obtain evidence of fibrinolytic activity. Performed By: #### I NTEM, APTEM, fibtem, EXTEM ####[facility] PATHOLOGY [id number] [place], AMPLITUDE AT 10 MIN. (A10) 55 mm Normal 46-67 [facility] Comment on above: Order Comment: APTEM should be compared to EXTEM in order to obtain evidence of fibrinolytic activity. Performed By: #### I NTEM, APTEM, fibtem, EXTEM ####[facility] PATHOLOGY [id number] [place], AMPLITUDE AT 20 MIN. (A20) 62 mm Normal 50-70 [facility] Comment on above: Order Comment: APTEM should be compared to EXTEM in order to obtain evidence of fibrinolytic activity. Performed By: #### I NTEM, APTEM, fibtem, EXTEM ####S PATHOLOGY AVTRNUXYLV2034 [place], CLOT FORMATION TIME (CFT) 109 Seconds Normal 48-127 [facility] Comment on above: Order Comment: APTEM should be compared to EXTEM in order to obtain evidence of fibrinolytic activity. Performed By: #### I NTEM, APTEM, fibtem, EXTEM ####[facility] PATHOLOGY [id number] [place], CLOTTING TIME (CT) 100 Seconds High 43-82 [facility] Comment on above: Order Comment: APTEM should be compared to EXTEM in order to obtain evidence of fibrinolytic activity. Performed By: #### I NTEM, APTEM, fibtem, EXTEM ####[facility] PATHOLOGY [id number] [place], MAX. CLOT FIRMNESS (MCF) 64 mm Normal 52-70 [facility] Comment on above: Order Comment: APTEM should be compared to EXTEM in order to obtain evidence of fibrinolytic activity. Performed By: #### I NTEM, APTEM, fibtem, EXTEM ####[facility] PATHOLOGY [id number] [place], MAXIMUM LYSIS (ML) 2 % Normal <15 [facility] Comment on above: Order Comment: APTEM should be compared to EXTEM in order to obtain evidence of fibrinolytic activity. Performed By: #### I NTEM, APTEM, fibtem, EXTEM ####[facility] PATHOLOGY [id number] [place], BASIC METABOLIC PANELon 04-14 Anion gap [Moles/Vol] 13 mmol/L Normal 10-20 [facility] Comment on above: Performed By: #### Fredrick Tsang CH8, PHOS ####[facility] PATHOLOGY [id number] [place], Calcium [Mass/Vol] 8.8 mg/dL Normal 8.6-10.3 [facility] Comment on above: Performed By: #### Fredrick Tsang CH8, PHOS ####S PATHOLOGY [id number] [place], Chloride [Moles/Vol] 103 mmol/L Normal 98-107 [facility] Comment on above: Performed By: #### Fredrick Tsang CH8, PHOS ####[facility] PATHOLOGY [id number] [place], CO2 [Moles/Vol] 24 mmol/L Normal 21-31 [facility] Comment on above: Performed By: #### JULIETTE Smith PHOS ####[facility] [id number] [place], Creatinine [Mass/Vol] 6.42 mg/dL High 0.70-1.30 [facility] Comment on above: Performed By: #### JULIETTE Smith PHOS ####[facility] [id number] [place], ESTIMATED GFR (CKD-EPI) 9 mL/min/1.73sqm Low >=60 [facility] Comment on above: Result Comment: 2020 CKD EPI Equation using Creatinine without RaceComment: Estimated glomerular filtration rate (eGFR) is calculated without a race coefficient. Values should be interpreted in the context of the patient's full clinical presentation.Reference:1. Christophe Nash, Sagrario M, Gena DC, et al.. A Unifying Approach for GFR Estimation: Recommendations of the NKF-ASN Task Force on Reassessing the Inclusion of Race in Diagnosing Kidney Disease. [place] Journal of Kidney Diseases 2021;79(2):268-88.e1.2. N Engl J Med 2020 Vol. 385 Issue 19 Pages 3854-8382 Performed By: #### JULIETTE Smith PHOS ####[facility] [id number] [place], Glucose [Mass/Vol] 151 mg/dL High 74-109 [facility] Comment on above: Performed By: #### JULIETTE Smith PHOS ####[facility] [id number] [place], Potassium [Moles/Vol] 5.1 mmol/L High 3.5-5.0 [facility] [facility] Comment on above: Performed By: #### JULIETTE Smith PHOS ####[facility] [id number] [place], [place], Sodium [Moles/Vol] 135 mmol/L Low 136-145 [facility] Comment on above: Performed By: #### JULIETTE Smith PHOS ####[facility] [id number] [place], Urea nitrogen [Mass/Vol] 32 mg/dL High 7-25 [facility] Comment on above: Performed By: #### M JULIETTE Tsang PHOS ####[facility] PATHOLOGY [id number] [place], BLOOD GAS, ARTERIALon 2023 CR ANAYA -1.2 mmol/L Normal -2.0-3.0 [facility] Comment on above: Performed By: #### C R BGA ####[facility] PATHOLOGY [id number] [place], CR PCO2 45.1 mm Hg High 35.0-45.0 [facility] Comment on above: Performed By: #### C R BGA ####[facility] PATHOLOGY [id number] [place] [address], CR PHA 7.346 Low 7.350-7.450 [facility] Comment on above: Performed By: #### C R BGA ####[facility] PATHOLOGY [id number] [place] [address], CR PO2 63 mm Hg Low 80-100 [facility] Comment on above: Performed By: #### C R BGA ####[facility] PATHOLOGY [id number] [place], FIO2 (CATEGORY) 2 LPM Normal [facility] Comment on above: Performed By: #### C R BGA ####S PATHOLOGY [id number] [place], HCO3 (Bld) [Moles/Vol] 24 mmol/L Normal 21-28 [facility] Comment on above: Performed By: #### C R BGA ####S PATHOLOGY ACTHGFIUHF3332 [place], MODE Nasal Canula Normal [facility] Comment on above: Performed By: #### C R BGA ####S PATHOLOGY [id number] [place], Oxygen saturation in Blood 91.6 % Low 95.0-99.0 [facility] Comment on above: Performed By: #### C R BGA ####[facility] PATHOLOGY [id number] [place], CR ANAYA 0.7 mmol/L Normal -2.0-3.0 [facility] Comment on above: Performed By: #### C R BGA ####[facility] PATHOLOGY [id number] [place], CR PCO2 48.4 mm Hg High 35.0-45.0 [facility] Comment on above: Performed By: #### C R BGA ####[facility] PATHOLOGY [id number] [place], CR PHA 7.353 Normal 7.350-7.450 [facility] Comment on above: Performed By: #### C R BGA ####[facility] PATHOLOGY ZNZASBBTHE[address] [place] [address], CR PO2 86 mm Hg Normal 80-100 [facility] Comment on above: Performed By: #### C R BGA ####[facility] PATHOLOGY [id number] [place] [address], FIO2 (CATEGORY) 2 LPM Normal [facility] Comment on above: Performed By: #### C R BGA ####[facility] PATHOLOGY [id number] [place] [address], HCO3 (Bld) [Moles/Vol] 26 mmol/L Normal 21-28 [facility] Comment on above: Performed By: #### C R BGA ####[facility] PATHOLOGY [id number] [place] [address], MODE Nasal Canula Normal [facility] Comment on above: Performed By: #### C R BGA ####[facility] PATHOLOGY [id number] [place], Oxygen saturation in Blood 96.0 % Normal 95.0-99.0 [facility] Comment on above: Performed By: #### C R BGA ####[facility] PATHOLOGY [id number] [place] [address], CR ANAYA -1.5 mmol/L Normal -2.0-3.0 [facility] Comment on above: Performed By: #### C R BGA ####[facility] PATHOLOGY [id number] [place], CR PCO2 43.8 mm Hg Normal 35.0-45.0 [facility] Comment on above: Performed By: #### C R BGA ####[facility] PATHOLOGY [id number] [place], CR PHA 7.350 Normal 7.350-7.450 [facility] Comment on above: Performed By: #### C R BGA ####[facility] PATHOLOGY [id number] [place], CR PO2 56 mm Hg Low 80-100 [facility] Comment on above: Performed By: #### C R BGA ####[facility] PATHOLOGY [id number] [place], FIO2 (CATEGORY) 40% Normal [facility] Comment on above: Performed By: #### C R BGA ####[facility] PATHOLOGY [id number] [place] [address], HCO3 (Bld) [Moles/Vol] 24 mmol/L Normal 21-28 [facility] Comment on above: Performed By: #### C R BGA ####[facility] PATHOLOGY [id number] [place], MODE BIPAP Normal [facility] Comment on above: Performed By: #### C R BGA ####[facility] PATHOLOGY [id number] [place], Oxygen saturation in Blood 88.8 % Low 95.0-99.0 [facility] Comment on above: Performed By: #### C R BGA ####[facility] PATHOLOGY [id number] [place], CR ANAYA -2.9 mmol/L Low -2.0-3.0 [facility] Comment on above: Performed By: #### C R BGA ####[facility] PATHOLOGY [id number] [place], CR PCO2 50.7 mm Hg High 35.0-45.0 [facility] Comment on above: Performed By: #### C R BGA ####[facility] PATHOLOGY [id number] [place], CR PHA 7.288 Low 7.350-7.450 [facility] Comment on above: Performed By: #### C R BGA ####[facility] PATHOLOGY [id number] [place], CR PO2 103 mm Hg High 80-100 [facility] Comment on above: Performed By: #### C R BGA ####[facility] PATHOLOGY [id number] [place], FIO2 (CATEGORY) 40% Normal [facility] Comment on above: Performed By: #### C R BGA ####[facility] PATHOLOGY [id number] [place] [address], HCO3 (Bld) [Moles/Vol] 24 mmol/L Normal 21-28 [facility] Comment on above: Performed By: #### C R BGA ####[facility] PATHOLOGY [id number] [place] [address], MODE Nasal Canula Normal [facility] Comment on above: Performed By: #### C R BGA ####[facility] PATHOLOGY [id number] [place] [address], Oxygen saturation in Blood 97.7 % Normal 95.0-99.0 [facility] Comment on above: Performed By: #### C R BGA ####[facility] PATHOLOGY VXSLAHESGY6496[address] [place] [address], CR ANAYA -2.3 mmol/L Low -2.0-3.0 [facility] Comment on above: Performed By: #### C R BGA ####[facility] PATHOLOGY IOPEHEIJKL4069[address] [place] [address], CR PCO2 50.3 mm Hg High 35.0-45.0 [facility] Comment on above: Performed By: #### C R BGA ####[facility] PATHOLOGY [id number] [place] [address], CR PHA 7.299 Low 7.350-7.450 [facility] Comment on above: Performed By: #### C R BGA ####[facility] PATHOLOGY [id number] [place], CR PO2 77 mm Hg Low 80-100 [facility] Comment on above: Performed By: #### C R BGA ####[facility] PATHOLOGY [id number] [place], FIO2 (CATEGORY) 3 LPM Normal [facility] Comment on above: Performed By: #### C R BGA ####[facility] PATHOLOGY [id number] [place], HCO3 (Bld) [Moles/Vol] 24 mmol/L Normal 21-28 [facility] Comment on above: Performed By: #### C R BGA ####[facility] PATHOLOGY [id number] [place], MODE Nasal Canula Normal [facility] Comment on above: Performed By: #### C R BGA ####[facility] PATHOLOGY [id number] [place] [address], Oxygen saturation in Blood 94.7 % Low 95.0-99.0 [facility] Comment on above: Performed By: #### C R BGA ####[facility] PATHOLOGY [id number] [place], CALCIUM, IONIZEDon CR ICA 1.25 mmol/L Normal 1.15-1.33 [facility] Comment on above: Result Comment: This test was developed, and its performance characteristics determined by the Department of Pathology of [facility]. It has not been cleared or approved by the FDA. This test is used for clinical purposes only. Performed By: #### C R ICA ####[facility] PATHOLOGY [id number] [place], CBC panel Auto (Bld)on 05-01 Hematocrit (Bld) [Volume fraction] 30.8 % Low 41.0 - 53.0 % [facility] Hemoglobin (Bld) [Mass/Vol] 10.4 g/dL Low 13.9 - 16.3 g/dL [facility] MCH (RBC) [Entitic mass] 31.3 pg 26.0 - 34.0 pg [facility] MCV (RBC) [Entitic vol] 93 fL 80 - 100 fL [facility] RBC (Bld) [#/Vol] 3.31 10*6/uL Low [facility] COMPLETE BLOOD COUNTon 05-01 Erythrocyte distribution width (RBC) [Ratio] 17.9 % High 11.5-14.5 [facility] Comment on above: Performed By: #### C BC ####[facility] PATHOLOGY [id number] [place] [address], Hematocrit (Bld) [Volume fraction] 30.8 % Low 41.0-53.0 [facility] Comment on above: Performed By: #### C BC ####[facility] PATHOLOGY [id number] [place] [address], Hemoglobin (Bld) [Mass/Vol] 10.4 g/dL Low 13.9-16.3 [facility] Comment on above: Performed By: #### C BC ####[facility] PATHOLOGY [id number] [place] [address], MCH (RBC) [Entitic mass] 31.3 pg Normal 26.0-34.0 [facility] Comment on above: Performed By: #### C BC ####[facility] PATHOLOGY [id number] [place] [address], MCHC (RBC) [Mass/Vol] 33.7 g/dL Normal 32.0-35.9 [facility] Comment on above: Performed By: #### C BC ####[facility] PATHOLOGY [id number] [place] [address], MCV (RBC) [Entitic vol] 93 fL Normal 80-100 [facility] Comment on above: Performed By: #### C BC ####[facility] PATHOLOGY HSJOTQWGZN759936 [place] [address], Platelet mean volume (Bld) [Entitic vol] 11.2 fL Normal 7.5-11.2 [facility] Comment on above: Performed By: #### C BC ####[facility] PATHOLOGY [id number] [place], Platelets (Bld) [#/Vol] 89 10*3/uL Low 150-400 [facility] Comment on above: Performed By: #### C BC ####[facility] PATHOLOGY [id number] [place], RBC (Bld) [#/Vol] 3.31 10*6/uL Low 4.50-5.90 [facility] Comment on above: Performed By: #### C BC ####[facility] PATHOLOGY [id number] [place] [address], WBC (Bld) [#/Vol] 13.7 10*3/uL High 4.5-11.5 [facility] Comment on above: Performed By: #### C BC ####[facility] PATHOLOGY [id number] [place] [address], Erythrocyte distribution width (RBC) [Ratio] 18.0 % High 11.5-14.5 [facility] Comment on above: Performed By: #### C BC ####[facility] PATHOLOGY [id number] [place] [address], Hematocrit (Bld) [Volume fraction] 31.7 % Low 41.0-53.0 [facility] Comment on above: Performed By: #### C BC ####[facility] PATHOLOGY [id number] [place] [address], Hemoglobin (Bld) [Mass/Vol] 10.6 g/dL Low 13.9-16.3 [facility] Comment on above: Performed By: #### C BC ####[facility] PATHOLOGY [id number] [place] [address], MCH (RBC) [Entitic mass] 31.2 pg Normal 26.0-34.0 [facility] Comment on above: Performed By: #### C BC ####[facility] PATHOLOGY [id number] [place] [address], MCHC (RBC) [Mass/Vol] 33.4 g/dL Normal 32.0-35.9 [facility] Comment on above: Performed By: #### C BC ####[facility] PATHOLOGY [id number] [place], MCV (RBC) [Entitic vol] 94 fL Normal 80-100 [facility] Comment on above: Performed By: #### C BC ####[facility] PATHOLOGY [id number] [place], Platelet mean volume (Bld) [Entitic vol] 10.2 fL Normal 7.5-11.2 [facility] Comment on above: Performed By: #### C BC ####[facility] PATHOLOGY [id number] [place], Platelets (Bld) [#/Vol] 79 10*3/uL Low 150-400 [facility] Comment on above: Performed By: #### C BC ####[facility] PATHOLOGY [id number] [place] [address], RBC (Bld) [#/Vol] 3.39 10*6/uL Low 4.50-5.90 [facility] Comment on above: Performed By: #### C BC ####[facility] PATHOLOGY [id number] [place], WBC (Bld) [#/Vol] 10.7 10*3/uL Normal 4.5-11.5 [facility] Comment on above: Performed By: #### C BC ####[facility] PATHOLOGY [id number] [place], Erythrocyte distribution width (RBC) [Ratio] 18.5 % High 11.5-14.5 [facility] Comment on above: Performed By: #### C BC ####[facility] PATHOLOGY [id number] [place], Hematocrit (Bld) [Volume fraction] 33.6 % Low 41.0-53.0 [facility] Comment on above: Performed By: #### C BC ####[facility] PATHOLOGY [id number] [place], Hemoglobin (Bld) [Mass/Vol] 11.3 g/dL Low 13.9-16.3 [facility] Comment on above: Performed By: #### C BC ####[facility] PATHOLOGY [id number] [place], MCH (RBC) [Entitic mass] 31.4 pg Normal 26.0-34.0 [facility] Comment on above: Performed By: #### C BC ####S PATHOLOGY [id number] [place], MCHC (RBC) [Mass/Vol] 33.8 g/dL Normal 32.0-35.9 [facility] Comment on above: Performed By: #### C BC ####[facility] PATHOLOGY [id number] [place], Platelet mean volume (Bld) [Entitic vol] 11.3 fL High 7.5-11.2 [facility] Comment on above: Performed By: #### C BC ####[facility] PATHOLOGY [id number] [place], Platelets (Bld) [#/Vol] 88 10*3/uL Low 150-400 [facility] Comment on above: Performed By: #### C BC ####[facility] PATHOLOGY [id number] [place], RBC (Bld) [#/Vol] 3.61 10*6/uL Low 4.50-5.90 [facility] Comment on above: Performed By: #### C BC ####[facility] PATHOLOGY [id number] [place], WBC (Bld) [#/Vol] 13.3 10*3/uL High 4.5-11.5 [facility] Comment on above: Performed By: #### C BC ####[facility] PATHOLOGY [id number] [place], Erythrocyte distribution width (RBC) [Ratio] 18.0 % High 11.5-14.5 [facility] Comment on above: Performed By: #### C BC ####[facility] PATHOLOGY [id number] [place], Hematocrit (Bld) [Volume fraction] 35.0 % Low 41.0-53.0 [facility] Comment on above: Performed By: #### C BC ####[facility] PATHOLOGY [id number] [place], Hemoglobin (Bld) [Mass/Vol] 11.7 g/dL Low 13.9-16.3 [facility] Comment on above: Performed By: #### C BC ####[facility] PATHOLOGY [id number] [place], MCH (RBC) [Entitic mass] 31.0 pg Normal 26.0-34.0 [facility] Comment on above: Performed By: #### C BC ####[facility] PATHOLOGY [id number] [place], MCHC (RBC) [Mass/Vol] 33.5 g/dL Normal 32.0-35.9 [facility] Comment on above: Performed By: #### C BC ####[facility] PATHOLOGY [id number] [place], MCV (RBC) [Entitic vol] 93 fL Normal 80-100 [facility] Comment on above: Performed By: #### C BC ####[facility] PATHOLOGY [id number] [place], Platelet mean volume (Bld) [Entitic vol] 10.6 fL Normal 7.5-11.2 [facility] Comment on above: Performed By: #### C BC ####[facility] PATHOLOGY [id number] [place], Platelets (Bld) [#/Vol] 96 10*3/uL Low 150-400 [facility] Comment on above: Performed By: #### C BC ####[facility] PATHOLOGY [id number] [place], RBC (Bld) [#/Vol] 3.78 10*6/uL Low 4.50-5.90 [facility] Comment on above: Performed By: #### C BC ####[facility] PATHOLOGY [id number] [place], WBC (Bld) [#/Vol] 16.2 10*3/uL High 4.5-11.5 [facility] Comment on above: Performed By: #### C BC ####[facility] PATHOLOGY [id number] [place], Care Plan Noteon 05-01-2024 Securities Adviser Authentication Interface Message Text Normal [facility] Securities Adviser Authentication Interface Message Text Normal [facility] Securities Adviser Authentication Interface Message Text Normal [facility] Consultson 05-01-2024 Securities Adviser Authentication Interface Message Text Normal [facility] Securities Adviser Authentication Interface Message Text Physical Therapy Note Attempted to see patient, however patient required OR for pelvic and femoral fx. Will continue to follow post-op for PT eval. Ben Gtz, PT, DPT #[phone] Normal [facility] Securities Adviser Authentication Interface Message Text Normal [facility] Securities Adviser Authentication Interface Message Text Normal [facility] Securities Adviser Authentication Interface Message Text Normal [facility] EXTEMon 05-01-2024 A-ANGLE 72 Degrees Normal 70-81 [facility] Comment on above: Performed By: #### I NTEM, APTEM, fibtem, EXTEM ####[facility] PATHOLOGY [id number] [place], AMPLITUDE AT 10 MIN. (A10) 58 mm Normal 46-67 [facility] Comment on above: Performed By: #### I NTEM, APTEM, fibtem, EXTEM ####[facility] PATHOLOGY [id number] [place], AMPLITUDE AT 20 MIN. (A20) 65 mm Normal 50-70 [facility] Comment on above: Performed By: #### I NTEM, APTEM, fibtem, EXTEM ####[facility] PATHOLOGY [id number] [place], CLOT FORMATION TIME (CFT) 91 Seconds Normal 48-127 [facility] Comment on above: Performed By: #### I NTEM, APTEM, fibtem, EXTEM ####[facility] PATHOLOGY [id number] [place], MAX. CLOT FIRMNESS (MCF) 66 mm Normal 52-70 [facility] Comment on above: Performed By: #### I NTEM, APTEM, fibtem, EXTEM ####S PATHOLOGY [id number] [place], MAXIMUM LYSIS (ML) 5 % Normal <15 [facility] Comment on above: Performed By: #### I NTEM, APTEM, fibtem, EXTEM ####S PATHOLOGY [id number] [place], FFPon 05-01-2024 BB ORDER ITEM Product status info to follow Normal [facility] Comment on above: Performed By: #### F FO ####S PATHOLOGY [id number] [place], FIBTEMon 05-01-2024 AMPLITUDE AT 10 MIN. (A10) 14 mm Normal 7-23 [facility] Comment on above: Performed By: #### I NTEM, APTEM, fibtem, EXTEM ####[facility] PATHOLOGY [id number] [place], AMPLITUDE AT 20 MIN. (A20) 15 mm Normal 8-24 [facility] Comment on above: Performed By: #### I NTEM, APTEM, fibtem, EXTEM ####S PATHOLOGY [id number] [place], MAXIMUM CLOT FIRMNESS (MCF) 15 mm Normal 9-25 [facility] Comment on above: Performed By: #### I NTEM, APTEM, fibtem, EXTEM ####[facility] PATHOLOGY [id number] [place], GLUCOSE, FINGERSTICK-IN OFFI CEon 05-01-2024 Glucose [Mass/Vol] 238 mg/dL High 74 - 109 mg/dL [facility] Interpretation and review of laboratory results Abnormal [facility] Glucose [Mass/Vol] 238 mg/dL High 74-109 [facility] Comment on above: Performed By: #### 8 [id number] ####NURSING GLUCOSE [id number] [place], Glucose [Mass/Vol] 177 mg/dL High 74-109 [facility] Comment on above: Performed By: #### 8 2948 ####NURSING GLUCOSE MEARRJI9928 [place], [address] Glucose [Mass/Vol] 163 mg/dL High 74-109 [facility] Comment on above: Performed By: #### 8 2948 ####NURSING GLUCOSE [id number] [place], [address] Glucose [Mass/Vol] 195 mg/dL High 74-109 [facility] Comment on above: Performed By: #### 8 2948 ####NURSING GLUCOSE [id number] [place], [address] H AND Nelson 05-01-2024 Securities Adviser Authentication Interface Message Text Normal [facility] HEPATITIS B SURFACE ANTIBODY on 05-01-2024 ANTI-HBS 7.4 mIU/mL Normal [facility] Comment on above: Order Comment: Nonre active: Samples < 7.5 mIU/mLReactive: Samples >/= 10.0 mIU/mLThe accepted criteria for immunity to HBV is anti-HBs activity >/= 10 mIU/mL, as defined by the WHO International Reference Preparation. Performed By: #### A NTI-HBS, HBSAG ####[facility] [id number] [place], HEPATITIS B SURFACE ANTIGENo n 05-01-2024 HBSAG Non-Reactive Normal Non-Reactive [facility] Comment on above: Performed By: #### A NTI-HBS, HBSAG ####S PATHOLOGY [id number] [place] [address], INTEMon 05-01-2024 AMPLITUDE AT 10 MIN. (A10) 51 mm Normal 46-67 [facility] Comment on above: Performed By: #### I NTEM, APTEM, fibtem, EXTEM ####[facility] [id number] [place], AMPLITUDE AT 20 MIN. (A20) 58 mm Normal 51-72 [facility] Comment on above: Performed By: #### I NTEM, APTEM, fibtem, EXTEM ####[facility] [id number] [place], CLOT FORMATION TIME (CFT) 93 Seconds Normal 45-110 [facility] Comment on above: Performed By: #### I NTEM, APTEM, fibtem, EXTEM ####[facility] PATHOLOGY [id number] [place], CLOTTING TIME (CT) 161 Seconds Normal 122-208 [facility] Comment on above: Performed By: #### I NTEM, APTEM, fibtem, EXTEM ####[facility] PATHOLOGY [id number] [place], MAX. CLOT FIRMNESS (MCF) 59 mm Normal 51-72 [facility] Comment on above: Performed By: #### I NTEM, APTEM, fibtem, EXTEM ####[facility] PATHOLOGY [id number] [place], LACTIC ACIDon 05-01-2024 CR LACT 1.9 mmol/L High 0.5-1.6 [facility] Comment on above: Performed By: #### L ACT ####[facility] PATHOLOGY [id number] [place] [address], MAGNESIUMon 05-01-2024 Magnesium [Mass/Vol] 2.3 mg/dL Normal 1.9-2.7 [facility] [facility] Comment on above: Performed By: #### JULIETTE Smith, PHOS ####[facility] PATHOLOGY [id number] [place], [place], PARTIAL THROMBOPLASTIN TIMEo n 05-01-2024 aPTT Coag (Bld) [Time] 29 s Normal 25-37 [facility] Comment on above: Performed By: #### A PTT ####[facility] PATHOLOGY [id number] [place], PHOSPHORUSon 05-01-2024 Phosphate [Mass/Vol] 3.8 mg/dL Normal 2.5-5.0 [facility] Comment on above: Performed By: #### JULIETTE Smith, PHOS ####[facility] PATHOLOGY [id number] [place], PLASMA STATUSon 05-01-2024 BLOOD PRODUCT CODE [id number] Normal [facility] Comment on above: Performed By: #### F FU ####S PATHOLOGY AOVTNRWYVR9007 [place], BLOOD PRODUCT DESCRIPTION FFP Normal [facility] Comment on above: Performed By: #### F FU ####[facility] IZMMEJOIMH9192 [place], BLOOD PRODUCT STATUS Transfused Normal [facility] Comment on above: Performed By: #### F FU ####[facility] NZWJGIZUZV9656 [place], BLOOD PRODUCT UNIT INFO [id number] Normal [facility] Comment on above: Performed By: #### F FU ####S PATHOLOGY CCCSHETHVT2314 [place], BLOOD PRODUCT UNIT TYPE 0600 Normal [facility] Comment on above: Result Comment: Fredis Abad g Performed By: #### F FU ####S PATHOLOGY [id number] [place], PROTHROMBIN TIME AND INRon 1 INR Coag (PPP) [Relative time] 1.16 {INR} High 0.90-1.10 [facility] Comment on above: Performed By: #### P T ####S PATHOLOGY QWVRITKCOE8586 [place], [place], PT Coag (PPP) [Time] 13.0 s High 9.7-12.9 [facility] Comment on above: Performed By: #### P T ####S PATHOLOGY [id number] [place], Progress Noteson 05-01-2024 Securities Adviser Authentication Interface Message Text Normal [facility] Securities Adviser Authentication Interface Message Text Normal [facility] Securities Adviser Authentication Interface Message Text Hd completed, tolerated well, no fluid was removed. Normal [facility] Securities Adviser Authentication Interface Message Text Normal [facility] Securities Adviser Authentication Interface Message Text Normal [facility] Research Noteon 05-01-2024 Securities Adviser Authentication Interface Message Text Normal [facility] XR CHEST AP OR PA 1 VIEWon 1 XR CHEST AP OR PA 1 VIEW Normal [facility] XR HIP RIGHT AP+LAT 2 VIEWSo n 05-01-2024 XR HIP RIGHT AP+LAT 2 VIEWS Normal [facility] XR KNEE RIGHT AP+LAT 2 VIEWS on 05-01-2024 XR KNEE RIGHT AP+LAT 2 VIEWS Normal [facility] XR KNEE RIGHT AP+LAT 2 VIEWS Normal [facility] XR Knee - right AP and Later corey 05-01-2024 EXAMINATION: XR KNEE RIGHT AP+LAT 2 VIEWSPRO/RT 05/01/2024 12:25 AM CLINICAL HISTORY: [...] KNEE RIGHT AP+LAT 2 VIEWS MACRO: None RADIOLOGY Jose Juan Esquivel MD - 05/01/2024 EXAMINATION: XR KNEE RIGHT AP+LAT 2 VIEWSPRO/RT 05/01/2024 12:25 AM CLINICAL HISTORY: [...] KNEE RIGHT AP+LAT 2 VIEWS MACRO: None [facility] Study observation (narrative) [facility] XR Knee - right AP and Later alOrdered By: Jose Juan Esquivel on 05-01-2024 [facility] XR L-SPINE STANDING AP+LAT 2 VIEWSon 05-01-2024 XR L-SPINE STANDING AP+LAT 2 VIEWS Normal [facility] XR PELVIS INLET OUTLET 2 VIE WSon 05-01-2024 XR PELVIS INLET OUTLET 2 VIEWS Normal [facility] XR T-SPINE 3 VIEWSon 024 XR T-SPINE 3 VIEWS Normal [facility] APTEMon 04-30-2024 A-ANGLE 69 Degrees Normal 65-80 [facility] Comment on above: Order Comment: APTEM should be compared to EXTEM in order to obtain evidence of fibrinolytic activity. Performed By: #### f ibtem, EXTEM, INTEM, APTEM ####[facility] PATHOLOGY [id number] [place], AMPLITUDE AT 10 MIN. (A10) 56 mm Normal 46-67 The [facility] Comment on above: Order Comment: APTEM should be compared to EXTEM in order to obtain evidence of fibrinolytic activity. Performed By: #### f ibtem, EXTEM, INTEM, APTEM ####[facility] PATHOLOGY [id number] [place], AMPLITUDE AT 20 MIN. (A20) 64 mm Normal 50-70 [facility] Comment on above: Order Comment: APTEM should be compared to EXTEM in order to obtain evidence of fibrinolytic activity. Performed By: #### f ibtem, EXTEM, INTEM, APTEM ####[facility] PATHOLOGY [id number] [place], CLOT FORMATION TIME (CFT) 105 Seconds Normal 48-127 [facility] Comment on above: Order Comment: APTEM should be compared to EXTEM in order to obtain evidence of fibrinolytic activity. Performed By: #### f ibtem, EXTEM, INTEM, APTEM ####[facility] PATHOLOGY [id number] [place], CLOTTING TIME (CT) 112 Seconds High 43-82 [facility] Comment on above: Order Comment: APTEM should be compared to EXTEM in order to obtain evidence of fibrinolytic activity. Performed By: #### f ibtem, EXTEM, INTEM, APTEM ####[facility] PATHOLOGY VXYIWGMSMA4898 [place], MAX. CLOT FIRMNESS (MCF) 66 mm Normal 52-70 [facility] Comment on above: Order Comment: APTEM should be compared to EXTEM in order to obtain evidence of fibrinolytic activity. Performed By: #### f ibtem, EXTEM, INTEM, APTEM ####[facility] PATHOLOGY [id number] [place], MAXIMUM LYSIS (ML) 1 % Normal <15 [facility] Comment on above: Order Comment: APTEM should be compared to EXTEM in order to obtain evidence of fibrinolytic activity. Performed By: #### f ibtem, EXTEM, INTEM, APTEM ####[facility] RSRTDXFUMI5164 [place], [id number] Activated partial thrombopla stin time (aPTT) in platelet poor plasma by coagulation aOrdered By: Darren Ernandez on 04-30-2024 aPTT Coag (PPP) [Time] 29.0 s 25.1-36.5 [facility] Comment on above: A hematocrit value g reater than 55% may lead to inaccurate results in coagulation testing. Patients having hematocrit values >55% require a special collection tube for coagulation studies. Please contact the laboratory at [phone] for redraw instructions. Amylaseon 04-30-2024 Amylase [Catalytic activity/Vol] 96 U/L Normal 29-103 [facility] Comment on above: Performed By: #### C K, ETOH, BUN, AST, PT, LYTES, GLU, STEVEN, PTT, LIPASE, CBC ####[facility] Kqv7229 [place] [address] [facility] Amylase [Enzymatic activity/ volume] in Serum or PlasmaOrdered By: Darren Ernandez on 04-30-2024 Amylase [Catalytic activity/Vol] 96 U/L 29-103 [facility] Aspartate Amino Transferaseo n 04-30-2024 AST [Catalytic activity/Vol] 100 U/L High 13-39 [facility] Comment on above: Performed By: #### C K, ETOH, BUN, AST, PT, LYTES, GLU, STEVEN, PTT, LIPASE, CBC ####[facility] Kwn4264 [place] [address] [facility] Aspartate aminotransferase [ Enzymatic activity/volume] in Serum or PlasmaOrdered By: Darren Ernandez on 04-30-2024 AST [Catalytic activity/Vol] 100 U/L High 13-39 [facility] BASIC METABOLIC PANELon 04-14 Anion gap [Moles/Vol] 17 mmol/L Normal 10-20 [facility] Comment on above: Performed By: #### C H8, MG ####[facility] [id number] [place], Calcium [Mass/Vol] 8.5 mg/dL Low 8.6-10.3 [email or web address] Comment on above: Performed By: #### Charity H8, MG ####[facility] LGHJFGTFEM6252 [place], Chloride [Moles/Vol] 102 mmol/L Normal 98-107 [facility] Comment on above: Performed By: #### C H8, MG ####[facility] DASZXQPVUN5073 [place], CO2 [Moles/Vol] 22 mmol/L Normal 21-31 [facility] Comment on above: Performed By: #### Charity H8, MG ####S PATHOLOGY BLAYGTEKCC1463 [place], Creatinine [Mass/Vol] 6.30 mg/dL High 0.70-1.30 [facility] Comment on above: Performed By: #### Charity H8, MG ####S PATHOLOGY PIHLDELNXM4125 [place], ESTIMATED GFR (CKD-EPI) 9 mL/min/1.73sqm Low >=60 [email or web address] Comment on above: Result Comment: 2020 CKD EPI Equation using Creatinine without RaceComment: Estimated glomerular filtration rate (eGFR) is calculated without a race coefficient. Values should be interpreted in the context of the patient's full clinical presentation.Reference:1. Christophe C, Sagrario M, Gena YUAN, et al.. A Unifying Approach for GFR Estimation: Recommendations of the NKF-ASN Task Force on Reassessing the Inclusion of Race in Diagnosing Kidney Disease. [place] Journal of Kidney Diseases 2021;79(2):268-88.e1.2. N Engl J Med 1 Vol. 385 Issue 19 Pages 3236-6798 Performed By: #### C H8, MG ####[facility] SJBUKGYHGQ5182 [place], Glucose [Mass/Vol] 268 mg/dL High 74-109 [email or web address] Comment on above: Performed By: #### C H8, MG ####[facility] PATHOLOGY KGYZWGWVZJ2527 [place], Potassium [Moles/Vol] 5.3 mmol/L High 3.5-5.0 [facility] Comment on above: Performed By: #### C H8, MG ####[facility] PATHOLOGY UFAIELHSWC3875 [place], Sodium [Moles/Vol] 136 mmol/L Normal 136-145 [facility] Comment on above: Performed By: #### C H8, MG ####[facility] PATHOLOGY LAZOZMYILB3265 [place], Urea nitrogen [Mass/Vol] 34 mg/dL High 7-25 [facility] Comment on above: Performed By: #### C H8, MG ####[facility] PATHOLOGY REVHQGRWGY[address] [place] [address], BLOOD GAS, ARTERIALon 2023 CR ANAYA -4.0 mmol/L Low -2.0-3.0 [facility] Comment on above: Performed By: #### C R BGA, LACT ####[facility] PATHOLOGY RXTZYNQNYP[address] [place] [address], CR PCO2 46.8 mm Hg High 35.0-45.0 [facility] Comment on above: Performed By: #### C R BGA, LACT ####[facility] PATHOLOGY GOWRDVZGUL[address] [place] [address], CR PHA 7.297 Low 7.350-7.450 [facility] Comment on above: Performed By: #### C R BGA, LACT ####[facility] PATHOLOGY KBHKXIMQWB13[address] [place] [address], CR PO2 70 mm Hg Low 80-100 [facility] Comment on above: Performed By: #### C R BGA, LACT ####[facility] PATHOLOGY [id number] [place], FIO2 (CATEGORY) 3 LPM Normal [facility] Comment on above: Performed By: #### C R BGA, LACT ####[facility] PATHOLOGY RXGOJRVKEY[address] [place] [address] [place], HCO3 (Bld) [Moles/Vol] 22 mmol/L Normal 21-28 [facility] Comment on above: Performed By: #### C R BGA, LACT ####[facility] PATHOLOGY [id number] [place] [address], MODE Nasal Canula Normal [facility] Comment on above: Performed By: #### C R BGA, LACT ####[facility] PATHOLOGY ROZHMJRNIF14[address] [place] [address], Oxygen saturation in Blood 93.4 % Low 95.0-99.0 [facility] Comment on above: Performed By: #### C R BGA, LACT ####[facility] PATHOLOGY OSABMVKLIH216[address] [place] [address], CR ANAYA -6.6 mmol/L Low -2.0-3.0 [facility] Comment on above: Performed By: #### C R BGA ####[facility] PATHOLOGY JUWOKKMIXL67[address] [place] [address], CR PCO2 43.9 mm Hg Normal 35.0-45.0 [facility] Comment on above: Performed By: #### C R BGA ####[facility] PATHOLOGY IQYDYFMBSB50[address] [place] [address], CR PHA 7.272 Low 7.350-7.450 [facility] Comment on above: Performed By: #### C R BGA ####[facility] PATHOLOGY JORITGZQOS8810[address] [place] [address], CR PO2 67 mm Hg Low 80-100 [facility] Comment on above: Performed By: #### C R BGA ####[facility] PATHOLOGY EQYZEKGHGC0638 [place], FIO2 (CATEGORY) 2 LPM Normal [facility] Comment on above: Performed By: #### C R BGA ####S PATHOLOGY CXEAGHQAIA5798 [place], HCO3 (Bld) [Moles/Vol] 20 mmol/L Low 21-28 [facility] Comment on above: Performed By: #### C R BGA ####S PATHOLOGY DJHALHYSCU3116 [place], MODE Nasal Canula Normal [facility] Comment on above: Performed By: #### C R BGA ####S PATHOLOGY XOFHFWMTLH5652 [place], Oxygen saturation in Blood 91.2 % Low 95.0-99.0 [facility] Comment on above: Performed By: #### C R BGA ####[facility] PATHOLOGY JAYKLDFZSJ4510 [place], Basophils Auto (Bld) [#/Vol] Ordered By: Darren Ernandez on 04-30-2024 Basophils (Bld) [#/Vol] 0.1 10*3/uL 0.0-0.2 [facility] Basophils/100 WBC Auto (Bld) Ordered By: Darren Ernandez on 04-30-2024 Basophils/100 WBC (Bld) 0.5 % . [facility] Blood Urea Nitrogenon 2023 Urea nitrogen [Mass/Vol] 30 mg/dL High 02-05 [facility] Comment on above: Performed By: #### C K, ETOH, BUN, AST, PT, LYTES, GLU, STEVEN, PTT, LIPASE, CBC ####[facility] Bws1535 [place] [id number] [facility] CBC WITH DIFFERENTIALon 04-14 Erythrocyte distribution width (RBC) [Ratio] 18.1 % High 11.5-14.5 [facility] Comment on above: Performed By: #### C BCDSAT ####S PATHOLOGY DFNPLMQUOA8147 [place], Hematocrit (Bld) [Volume fraction] 36.1 % Low 41.0-53.0 [facility] Comment on above: Performed By: #### C BCDSAT ####[facility] BDMVJDRVLA5087 [place], Hemoglobin (Bld) [Mass/Vol] 11.5 g/dL Low 13.9-16.3 [facility] Comment on above: Performed By: #### C BCDSAT ####[facility] PATHOLOGY DOGFFMVWLE4327 [place], MCH (RBC) [Entitic mass] 31.2 pg Normal 26.0-34.0 [facility] Comment on above: Performed By: #### Charity WOODSAT ####[facility] PATHOLOGY UUKNZCSSCL6239 [place], MCHC (RBC) [Mass/Vol] 31.9 g/dL Low 32.0-35.9 [facility] Comment on above: Performed By: #### Charity WOODSAT ####[facility] PATHOLOGY VRVPEGDTHU2907 [place], MCV (RBC) [Entitic vol] 98 fL Normal 80-100 [facility] Comment on above: Performed By: #### Charity WOODSAT ####[facility] PATHOLOGY STXPEITDVR4912 [place], MONOCYTE DISTRIBUTION WIDTH 18 Normal <=20 [facility] Comment on above: Performed By: #### Charity WOODSAT ####[facility] PATHOLOGY PVITDCCWUP9012 [place], Platelet mean volume (Bld) [Entitic vol] 10.6 fL Normal 7.5-11.2 [facility] Comment on above: Performed By: #### Charity WOODSAT ####[facility] PATHOLOGY XSPLREZRHY0500 [place], Platelets (Bld) [#/Vol] 135 10*3/uL Low 150-400 [facility] Comment on above: Performed By: #### Charity WOODSAT ####[facility] PATHOLOGY [id number] [place] [address], RBC (Bld) [#/Vol] 3.69 10*6/uL Low 4.50-5.90 [facility] Comment on above: Performed By: #### Charity WOODSAT ####[facility] PATHOLOGY OJRQMIWLVW8423 [place], WBC (Bld) [#/Vol] 19.2 10*3/uL High 4.5-11.5 [facility] Comment on above: Performed By: #### Charity WOODSAT ####[facility] PATHOLOGY [id number] [place], COMPLETE BLOOD COUNTon 04-30 Erythrocyte distribution width (RBC) [Ratio] 18.5 % High 11.5-14.5 [facility] Comment on above: Performed By: #### C BC ####[facility] PATHOLOGY [id number] [place], Hematocrit (Bld) [Volume fraction] 38.6 % Low 41.0-53.0 [facility] Comment on above: Performed By: #### C BC ####[facility] PATHOLOGY SDHNIVLBDP6738 [place], Hemoglobin (Bld) [Mass/Vol] 12.6 g/dL Low 13.9-16.3 [facility] Comment on above: Performed By: #### C BC ####[facility] PATHOLOGY LTOYUOPPFW[address] [place] [address], MCH (RBC) [Entitic mass] 30.8 pg Normal 26.0-34.0 [facility] Comment on above: Performed By: #### C BC ####[facility] PATHOLOGY [id number] [place], MCHC (RBC) [Mass/Vol] 32.5 g/dL Normal 32.0-35.9 [facility] Comment on above: Performed By: #### C BC ####[facility] PATHOLOGY [id number] [place], MCV (RBC) [Entitic vol] 95 fL Normal 80-100 [facility] Comment on above: Performed By: #### C BC ####[facility] PATHOLOGY [id number] [place], Platelet mean volume (Bld) [Entitic vol] 10.5 fL Normal 7.5-11.2 [facility] Comment on above: Performed By: #### C BC ####[facility] PATHOLOGY [id number] [place], Platelets (Bld) [#/Vol] 102 10*3/uL Low 150-400 [facility] Comment on above: Performed By: #### C BC ####S PATHOLOGY SYHTEWSSOL9399 [place], RBC (Bld) [#/Vol] 4.08 10*6/uL Low 4.50-5.90 [facility] Comment on above: Performed By: #### C BC ####[facility] UWPVAEWCKQ4628 [place], WBC (Bld) [#/Vol] 16.7 10*3/uL High 4.5-11.5 [facility] Comment on above: Performed By: #### C BC ####[facility] PATHOLOGY [id number] [place], [place], CT C-SPINE W/O CONTRASTon CT C-SPINE W/O CONTRAST Normal [facility] CHEST/ABD/PELVIS W/ CONTR Timoteo 04-30-2024 CT CHEST/ABD/PELVIS W/ CONTRAST Normal [facility] CT FEMUR RIGHT W/O CONTRASTo n 04-30-2024 CT FEMUR RIGHT W/O CONTRAST Normal [facility] HEAD W/O CONTRASTon 04-30 CT HEAD W/O CONTRAST Normal [facility] CT PELVIS BONY W/O CONTRASTo n 04-30-2024 CT PELVIS BONY W/O CONTRAST Normal [facility] CT T-SPINE/L-SPINE W/O CONTR Timoteo 04-30-2024 CT T-SPINE/L-SPINE W/O CONTRAST Normal [facility] CT abdomen pelvis wo conon 1 CT abdomen pelvis wo con [facility] [place] [address] CT Scan Report Signed Patient: Amado Tran MR#: [id number] : 1965 Acct:[id number] Age/Sex: 59 / M ADM Date: 04/30/24 Loc: ER Room: Type: [facility] ER Attending Dr: Copies to: Darren Ernandez PA-C Ordering Provider: Darren Ernandez PA-C Date of Service: 04/30/24 CT/CT abdomen pelvis wo con: trauma ([id number]) CT/CT chest wo con: trauma CT chest [...] Tyler Mobley M.D.04/30/2024 3:06 PM Dictation Location: [place] [address] Transcribed By: [facility] 04/30/24 1506 Dictated By: Tyler Mobley II, MD 04/30/24 1451 Signed By: 04/30/24 1506 Normal [facility] CT cervical spine wo con 1 CT cervical spine wo [facility] [place] [address] CT Scan Report Signed Patient: Amado Tran MR#: [id number] : 1965 Acct:[id number] Age/Sex: 59 / M ADM Date: 04/30/24 Loc: ER Room: Type: [facility] ER Attending Dr: Copies to: Darren Ernandez PA-C Ordering Provider: Darren Ernandez PA-C Date of Service: 04/30/24 CT/CT cervical spine wo con: trauma ([id number]) CT/CT head/brain wo con: trauma CT head/brain [...] Tyler Mobley M.D.04/30/2024 2:51 PM Dictation Location: [place] [address] Transcribed By: [facility] 04/30/24 1451 Dictated By: Tyler Mobley II, MD 04/30/24 1439 Signed By: 04/30/24 1451 Normal [facility] CTA NECK W/on 04-30-2024 CTA NECK W/ Normal [facility] Carbon dioxide, total [Moles /volume] in Serum or PlasmaOrdered By: Darren Ernandez on 04-30-2024 CO2 [Moles/Vol] 25.8 mmol/L 21.0-31.0 [facility] Chloride [Moles/volume] in S marino or PlasmaOrdered By: Darren Ernandez on 04-30-2024 Chloride [Moles/Vol] 95 mmol/L Low 98-107 [facility] Complete Blood Count Auto Di ffon 04-30-2024 Basophils (Bld) [#/Vol] 0.1 10*3/uL Normal 0.0-0.2 [facility] Comment on above: Result Comment: PERF ORMED BY: [facility] [address] [place] [address] PATHOLOGIST [employer]AKERY DELIVERER DAVID CORTEZ M.D. Performed By: #### C K, ETOH, BUN, AST, PT, LYTES, GLU, STEVEN, PTT, LIPASE, CBC ####[address] Basophils/100 WBC (Bld) 0.5 % Normal . [facility] Comment on above: Performed By: #### C K, ETOH, BUN, AST, PT, LYTES, GLU, STEVEN, PTT, LIPASE, CBC ####[address] Eosinophils (Bld) [#/Vol] 0.3 10*3/uL Normal 0.0-0.45 [facility] Comment on above: Performed By: #### C K, ETOH, BUN, AST, PT, LYTES, GLU, STEVEN, PTT, LIPASE, CBC ####[place] [address] [place] Eosinophils/100 WBC (Bld) 1.2 % Normal . [facility] Comment on above: Performed By: #### C K, ETOH, BUN, AST, PT, LYTES, GLU, STEVEN, PTT, LIPASE, CBC ####[address] Erythrocyte distribution width (RBC) [Ratio] 14.7 % Normal 12.0-14.8 [facility] Comment on above: Performed By: #### C K, ETOH, BUN, AST, PT, LYTES, GLU, STEVEN, PTT, LIPASE, CBC ####[address] Hematocrit (Bld) [Volume fraction] 35.0 % Low 38.8-50.0 [facility] Comment on above: Performed By: #### C K, ETOH, BUN, AST, PT, LYTES, GLU, STEVEN, PTT, LIPASE, CBC ####[address] Hemoglobin (Bld) [Mass/Vol] 11.2 g/dL Low 13.0-17.0 [facility] Comment on above: Performed By: #### C K, ETOH, BUN, AST, PT, LYTES, GLU, STEVEN, PTT, LIPASE, CBC ####[address] Lymphocytes (Bld) [#/Vol] 2.4 10*3/uL Normal 1.00-4.8 [facility] Comment on above: Performed By: #### C K, ETOH, BUN, AST, PT, LYTES, GLU, STEVEN, PTT, LIPASE, CBC ####[address] Lymphocytes/100 WBC (Bld) 11.0 % Normal . [facility] Comment on above: Performed By: #### C K, ETOH, BUN, AST, PT, LYTES, GLU, STEVEN, PTT, LIPASE, CBC ####[address] MCH (RBC) [Entitic mass] 32.3 pg Normal 27.5-35.2 [facility] Comment on above: Performed By: #### C K, ETOH, BUN, AST, PT, LYTES, GLU, STEVEN, PTT, LIPASE, CBC ####[address] MCV (RBC) [Entitic vol] 101.0 fL Normal 83.5-101 [facility] Comment on above: Performed By: #### C K, ETOH, BUN, AST, PT, LYTES, GLU, STEVEN, PTT, LIPASE, CBC ####[address] Mean Corpuscular HGB Conc 32.0 g/dL Low 32.5-35.6 [facility] Comment on above: Performed By: #### C K, ETOH, BUN, AST, PT, LYTES, GLU, STEVEN, PTT, LIPASE, CBC ####[address] Monocytes (Bld) [#/Vol] 0.7 10*3/uL Normal 0.0-0.8 [facility] Comment on above: Performed By: #### C K, ETOH, BUN, AST, PT, LYTES, GLU, STEVEN, PTT, LIPASE, CBC ####[address] Monocytes/100 WBC (Bld) 18.62 % Normal 0.00-20.00 [facility] Comment on above: Performed By: #### C K, ETOH, BUN, AST, PT, LYTES, GLU, STEVEN, PTT, LIPASE, CBC ####[address] Monocytes/100 WBC (Bld) 3.1 % Normal . [facility] [facility] Comment on above: Performed By: #### C K, ETOH, BUN, AST, PT, LYTES, GLU, STEVEN, PTT, LIPASE, CBC ####[address] Neutrophils (Bld) [#/Vol] 18.2 10*3/uL High 1.8-7.7 [facility] Comment on above: Performed By: #### C K, ETOH, BUN, AST, PT, LYTES, GLU, STEVEN, PTT, LIPASE, CBC ####[address] Neutrophils/100 WBC (Bld) 84.2 % Normal . [facility] Comment on above: Performed By: #### C K, ETOH, BUN, AST, PT, LYTES, GLU, STEVEN, PTT, LIPASE, CBC ####[address] NRBC% 0.0 /100{WBC} Normal 0-0.5 [facility] Comment on above: Performed By: #### C K, ETOH, BUN, AST, PT, LYTES, GLU, STEVEN, PTT, LIPASE, CBC ####[address] Platelet mean volume (Bld) [Entitic vol] 11.2 fL High 6.6-10.1 [facility] Comment on above: Performed By: #### C K, ETOH, BUN, AST, PT, LYTES, GLU, STEVEN, PTT, LIPASE, CBC ####[address] Platelets (Bld) [#/Vol] 169 10*3/uL Normal 150-450 [facility] Comment on above: Performed By: #### C K, ETOH, BUN, AST, PT, LYTES, GLU, STEVEN, PTT, LIPASE, CBC ####[address] RBC (Bld) [#/Vol] 3.46 10*6/uL Low 3.90-5.60 [facility] Comment on above: Performed By: #### C K, ETOH, BUN, AST, PT, LYTES, GLU, STEVEN, PTT, LIPASE, CBC ####[address] WBC (Bld) [#/Vol] 21.7 10*3/uL High 4.1-10.5 [facility] Comment on above: Performed By: #### C K, ETOH, BUN, AST, PT, LYTES, GLU, STEVEN, PTT, LIPASE, CBC ####[address] [place] [address] [facility] Creatine kinase [Enzymatic a ctivity/volume] in Serum or PlasmaOrdered By: Darren Ernandez on 04-30-2024 CK [Catalytic activity/Vol] 455 U/L High 30-223 [facility] Comment on above: Result Comment: PERF ORMED BY: [place] [address] PATHOLOGIST BAKERY DELIVERER DAVID CORTEZ M.D. Performed By: #### C K, ETOH, BUN, AST, PT, LYTES, GLU, STEVEN, PTT, LIPASE, CBC ####[address] [place] [address] [facility] ECG 12 lead ECGon 04-30-2024 ECG 12 lead ECG [facility] Main [place] [address] [place] [address] Electrocardiograph Report Signed Patient: Amado Tran MR#: [id number] : 1965 Acct:[id number] Age/Sex: 59 / M ADM Date: 04/30/24 Loc: ER Room: Type: [facility] ER Attending Dr: Ordering Provider: Darren Ernandez [...] No significant change was found Confirmed by LENCHO BHATT DO ([id number]) on 04/30/2024 3:53:09 PM Referred By: Electronically Signed By: LENCHO BHATT DO Transcribed By: MUS Signed By Lencho Bhatt DO 04/30 1819 Normal [facility] ED Noteson 04-30-2024 Securities Adviser Authentication Interface Message Text Pt back to trauma room 14, from [place], at this time Normal [facility] Securities Adviser Authentication Interface Message Text MTP initiated at this time Normal [email or web address] Securities Adviser Authentication Interface Message Text Pt in [place] at this time Normal [facility] ED Provider Noteson 04-30-20 Securities Adviser Authentication Interface Message Text Normal [facility] ED Triage Noteson 04-30-2024 Securities Adviser Authentication Interface Message Text Prehospital Medications: 1 U whole blood, calcium gluconate, 2 K centra, 2 units PRBC Normal [email or web address] Securities Adviser Authentication Interface Message Text Tx from [facility] 59yo M fall splenic lac, multiple Left sided fx, pelvic fx w widening Normal [email or web address] EXTEMon 04-30-2024 A-ANGLE 70 Degrees Normal 65-80 [email or web address] Comment on above: Performed By: #### f ibtem, EXTEM, INTEM, APTEM ####[facility] [id number] [place], [place], CLOT FORMATION TIME (CFT) 99 Seconds Normal 48-127 [facility] Comment on above: Performed By: #### f ibtem, EXTEM, INTEM, APTEM ####[facility] [id number] [place], [place], CLOTTING TIME (CT) 96 Seconds High 43-82 [email or web address] Comment on above: Performed By: #### f ibtem, EXTEM, INTEM, APTEM ####[facility] [id number] [place], Electrolyteson 04-30-2024 Anion gap [Moles/Vol] 17.8 mmol/L High 6.0-15.[address] [facility] Comment on above: Performed By: #### C K, ETOH, BUN, AST, PT, LYTES, GLU, STEVEN, PTT, LIPASE, CBC ####[facility] [place] [address] [place] Chloride [Moles/Vol] 95 mmol/L Low 98-107 [facility] Comment on above: Performed By: #### C K, ETOH, BUN, AST, PT, LYTES, GLU, STEVEN, PTT, LIPASE, CBC ####[facility] [place] [address] [place] CO2 [Moles/Vol] 25.8 mmol/L Normal 21.0-31.0 [facility] Comment on above: Performed By: #### C K, ETOH, BUN, AST, PT, LYTES, GLU, STEVEN, PTT, LIPASE, CBC ####[facility] Potassium [Moles/Vol] 4.6 mmol/L Normal 3.5-5.1 [facility] Comment on above: Performed By: #### C K, ETOH, BUN, AST, PT, LYTES, GLU, STEVEN, PTT, LIPASE, CBC ####[place] [address] Sodium [Moles/Vol] 134 mmol/L Low 136-145 [facility] Comment on above: Performed By: #### C K, ETOH, BUN, AST, PT, LYTES, GLU, STEVEN, PTT, LIPASE, CBC ####[place] [address] Eosinophils Auto (Bld) [#/Vo l]Ordered By: Darren Ernandez on 04-30-2024 Eosinophils (Bld) [#/Vol] 0.3 10*3/uL 0.0-0.45 [facility] Eosinophils/100 WBC Auto (Bl d)Ordered By: Darren Ernandez on 04-30-2024 Eosinophils/100 WBC (Bld) 1.2 % . [facility] Erythrocyte distribution wid th Auto (RBC) [Ratio]Ordered By: Darren Ernandez on 04-30-2024 Erythrocyte distribution width (RBC) [Ratio] 14.7 % 12.0-14.8 [facility] Ethanol [Mass/volume] in Ser um or PlasmaOrdered By: Darren Ernandez on 04-30-2024 Ethanol [Mass/Vol] mg/dL [facility] Ethanol [Mass/Vol] TNP [facility] Comment on above: Test not performed Ethyl Alcohol Profileon 04-14 Ethanol [Mass/Vol] mg/dL Normal [facility] Comment on above: Performed By: #### C K, ETOH, BUN, AST, PT, LYTES, GLU, STEVEN, PTT, LIPASE, CBC ####[facility] Nhc8183 [place] [address] [facility] Percent Ethanol Not performed Normal [facility] Comment on above: Result Comment: PERF ORMED BY: [facility] [address] [place] [id number] PATHOLOGIST BAKERY DELIVERER DAVID CORTEZ M.D. Performed By: #### C K, ETOH, BUN, AST, PT, LYTES, GLU, STEVEN, PTT, LIPASE, CBC ####[facility] Klg0432 [place] [address] [facility] FFPon 04-30-2024 BB ORDER ITEM Product status info to follow Normal [facility] Comment on above: Performed By: #### F FO ####[facility] [id number] [place], [place], FIBTEMon 04-30-2024 AMPLITUDE AT 10 MIN. (A10) 12 mm Normal 7-23 [facility] Comment on above: Result Comment: This is a corrected result. Previous result on 04/30/2024 at 2127 EDT was 16 mm Performed By: #### f ibtem, EXTEM, INTEM, APTEM ####[facility] [id number] [place], AMPLITUDE AT 20 MIN. (A20) 13 mm Normal 8-24 [facility] Comment on above: Result Comment: This is a corrected result. Previous result on 04/30/2024 at 2127 EDT was 18 mm Performed By: #### f ibtem, EXTEM, INTEM, APTEM ####[facility] [id number] [place], MAXIMUM CLOT FIRMNESS (MCF) 13 mm Normal 9-25 [facility] Comment on above: Result Comment: This is a corrected result. Previous result on 04/30/2024 at 2127 EDT was 19 mm Performed By: #### f ibtem, EXTEM, INTEM, APTEM ####[facility] [id number] [place], GLUCOSE, FINGERSTICK-IN OFFI CEon 04-30-2024 Glucose [Mass/Vol] 221 mg/dL High 74-109 [email or web address] Comment on above: Performed By: #### 8 2948 ####NURSING GLUCOSE WHWUEJD1779 [facility], [address] Glucoseon 04-30-2024 Glucose [Mass/Vol] 302 mg/dL High 70-100 [facility] Comment on above: Result Comment: [place] om Glucose Reference Range is dependent on time and content of last meal. Glucose of more than 200 mg/dL in a nonstressed, ambulatory subject supports the diagnosis of Diabetes Mellitus. ADA recommended reference range Performed By: #### C K, ETOH, BUN, AST, PT, LYTES, GLU, STEVEN, PTT, LIPASE, CBC ####[facility] Hwc7043 [place] [address] [facility] Glucose [Mass/volume] in Ser um or PlasmaOrdered By: Darren Ernandez on 04-30-2024 Glucose [Mass/Vol] 302 mg/dL High 70-100 [facility] Comment on above: ADA recommended refe rence rangeRandom Glucose Reference Range is dependent on time and content of last meal. Glucose of more than 200 mg/dL in a nonstressed, ambulatory subject supports the diagnosis of Diabetes Mellitus. H AND Nelson 04-30-2024 Securities Adviser Authentication Interface Message Text Normal [email or web address] Hematocrit Auto (Bld) [Volum e fraction]Ordered By: Darren Ernandez on 04-30-2024 Hematocrit (Bld) [Volume fraction] 35.0 % Low 38.8-50.0 [facility] Hemoglobin [Mass/volume] in BloodOrdered By: Darren Ernandez on 04-30-2024 Hemoglobin (Bld) [Mass/Vol] 11.2 g/dL Low 13.0-17.0 [facility] INR in Platelet poor plasma by Coagulation assayOrdered By: Darren Ernandez on 04-30-2024 INR Coag (PPP) [Relative time] 1.2 {INR} [facility] Comment on above: INR Therapeutic Rang e A) Pre- and Peroperative OAT started two weeks before surgery. NOT HIP SURGERY: 1.5 - 2.5 HIP SURGERY: 2 - 3B) Primary and secondary prevention of venous THROMBOSIS: 2 - 3C) Active venous thrombosis, pulmonary embolismand prevention of recurrent venous thrombosis: 2 - 3D) Prevention of arterial thromboembolismincluding patients with mechanical heart valves: 3 - 4.5 INTEMon 04-30-2024 A-ANGLE 71 Degrees Normal 70-81 [facility] Comment on above: Performed By: #### f ibtem, EXTEM, INTEM, APTEM ####[facility] PATHOLOGY [id number] [place], AMPLITUDE AT 10 MIN. (A10) 52 mm Normal 46-67 [facility] Comment on above: Performed By: #### f ibtem, EXTEM, INTEM, APTEM ####[facility] PATHOLOGY [id number] [place], AMPLITUDE AT 20 MIN. (A20) 59 mm Normal 51-72 [facility] Comment on above: Performed By: #### f ibtem, EXTEM, INTEM, APTEM ####[facility] PATHOLOGY [id number] [place] [address], CLOT FORMATION TIME (CFT) 97 Seconds Normal 45-110 [facility] Comment on above: Performed By: #### f ibtem, EXTEM, INTEM, APTEM ####[facility] PATHOLOGY [id number] [place], CLOTTING TIME (CT) 172 Seconds Normal 122-208 [facility] Comment on above: Performed By: #### f ibtem, EXTEM, INTEM, APTEM ####[facility] PATHOLOGY [id number] [place], MAX. CLOT FIRMNESS (MCF) 62 mm Normal 51-72 [facility] Comment on above: Performed By: #### f ibtem, EXTEM, INTEM, APTEM ####[facility] PATHOLOGY [id number] [place], LACTIC ACIDon 04-30-2024 CR LACT 3.1 mmol/L Critically high 0.5-1.6 [facility] Comment on above: Performed By: #### C R BGA, LACT ####[facility] PATHOLOGY [id number] [place], Leukocyte Reduced RBCon 04-14 Leukocyte Reduced RBC TRANSFUSED 04/30/24 1356 Normal [facility] Comment on above: Result Comment: PERF ORMED BY: [address] [address] PATHOLOGIST BAKERY DELIVERER DAVID CORTEZ M.D. Leukocytes [#/volume] correc shiva for nucleated erythrocytes in Blood by Automated counOrdered By: Darren Ernandez on 04-30-2024 WBC corrected for nucl RBC Auto (Bld) [#/Vol] 21.7 10*3/uL High 4.1-10.5 [facility] Lipaseon 04-30-2024 Lipase [Catalytic activity/Vol] 70.0 U/L Normal 11.0-82.0 [facility] Comment on above: Result Comment: PERF ORMED BY: [address] [place] [address] PATHOLOGIST BAKERY DELIVERER DAVID CORTEZ M.D. Performed By: #### C K, ETOH, BUN, AST, PT, LYTES, GLU, STEVEN, PTT, LIPASE, CBC ####[facility] Aul[address] [place] [address] [facility] Lipase [Enzymatic activity/v olume] in Serum or PlasmaOrdered By: Darren Ernandez on 04-30-2024 Lipase [Catalytic activity/Vol] 70.0 U/L 11.0-82.0 [facility] Lymphocytes Auto (Bld) [#/Vo l]Ordered By: Darren Ernandez on 04-30-2024 Lymphocytes (Bld) [#/Vol] 2.4 10*3/uL 1.00-4.8 [facility] Lymphocytes/100 WBC Auto (Bl d)Ordered By: Darren Ernandez on 04-30-2024 Lymphocytes/100 WBC (Bld) 11.0 % . [facility] MAGNESIUMon 04-30-2024 Magnesium [Mass/Vol] 1.6 mg/dL Low 1.9-2.7 [facility] Comment on above: Performed By: #### C H8, MG ####[facility] [id number] [place] [address], [id number] MCH Auto (RBC) [Entitic mass ]Ordered By: Darren Ernandez on 04-30-2024 MCH (RBC) [Entitic mass] 32.3 pg 27.5-35.2 [facility] MCHC Auto (RBC) [Mass/Vol]Or dered By: Darren Ernandez on 04-30-2024 MCHC (RBC) [Mass/Vol] 32.0 g/dL Low 32.5-35.6 [facility] MCV Auto (RBC) [Entitic vol] Ordered By: Darren Ernandez on 04-30-2024 MCV (RBC) [Entitic vol] 101.0 fL 83.5-101 [facility] Monocyte distribution width [Entitic volume] in Blood by AutomatedOrdered By: Darren Ernandez on 04-30-2024 Monocyte distribution width Auto (Bld) [Entitic vol] 18.62 % 0.00-20.00 [facility] Monocytes Auto (Bld) [#/Vol] Ordered By: Darren Ernandez on 04-30-2024 Monocytes (Bld) [#/Vol] 0.7 10*3/uL 0.0-0.8 [facility] Monocytes/100 WBC Auto (Bld) Ordered By: Darren Ernandez on 04-30-2024 Monocytes/100 WBC (Bld) 3.1 % . [facility] Neutrophils Auto (Bld) [#/Vo l]Ordered By: Darren Ernandez on 04-30-2024 Neutrophils (Bld) [#/Vol] 18.2 10*3/uL High 1.8-7.7 [facility] Neutrophils/100 WBC Auto (Bl d)Ordered By: Darren Ernandez on 04-30-2024 Neutrophils/100 WBC (Bld) 84.2 % . [facility] Nucleated erythrocytes [Pres ence] in Blood by Automated countOrdered By: Darren Ernandez on 04-30-2024 Nucleated RBC Auto Ql (Bld) 0.0 /100{WBC} 0-0.5 [facility] PLASMA STATUSon 04-30-2024 BLOOD PRODUCT CODE [id number] Normal [facility] Comment on above: Performed By: #### F FU ####[facility] ELYESAOXCZ[address] [place] [address], [id number] BLOOD PRODUCT DESCRIPTION FFP Normal [facility] Comment on above: Performed By: #### F FU ####[facility] [id number] [place], BLOOD PRODUCT STATUS Transfused Normal [facility] Comment on above: Performed By: #### F FU ####[facility] [id number] [place], BLOOD PRODUCT UNIT INFO [id number] Normal [facility] Comment on above: Performed By: #### F FU ####[facility] [id number] [place], BLOOD PRODUCT UNIT TYPE 0600 Normal [facility] Comment on above: Result Comment: Fredis tsang Performed By: #### F FU ####[facility] [id number] [place], BLOOD PRODUCT CODE [id number] Normal [facility] Comment on above: Performed By: #### F FU ####S PATHOLOGY [id number] [place], BLOOD PRODUCT CODE [id number] Normal [facility] Comment on above: Performed By: #### F FU ####[facility] [id number] [place], BLOOD PRODUCT DESCRIPTION FFP Normal [facility] Comment on above: Performed By: #### F FU ####[facility] [id number] [place], BLOOD PRODUCT STATUS Returned to Bld Bnk Normal [facility] Comment on above: Performed By: #### F FU ####[facility] [id number] [place], Performed By: #### R BRYANT ####[facility] [id number] [place], BLOOD PRODUCT UNIT INFO [id number] Normal [facility] Comment on above: Performed By: #### F FU ####[facility] [id number] [place], BLOOD PRODUCT UNIT INFO [id number] Normal [facility] Comment on above: Performed By: #### F FU ####[facility] [id number] [place], BLOOD PRODUCT UNIT INFO [id number] Normal [facility] Comment on above: Performed By: #### F FU ####[facility] [id number] [place], BLOOD PRODUCT UNIT INFO [id number] Normal [facility] Comment on above: Performed By: #### F FU ####S PATHOLOGY ICRVHITOBA8078 [place], BLOOD PRODUCT UNIT TYPE 6200 Normal [facility] Comment on above: Result Comment: A Po s Performed By: #### F FU ####S PATHOLOGY EHXMVLNQHQ9392 [place], BLOOD PRODUCT CODE [id number] Normal [facility] Comment on above: Performed By: #### F FU ####S PATHOLOGY [id number] [place], BLOOD PRODUCT CODE [id number] Normal [facility] Comment on above: Performed By: #### F FU ####S PATHOLOGY [id number] [place], BLOOD PRODUCT DESCRIPTION FFP Normal [facility] Comment on above: Performed By: #### F FU ####S PATHOLOGY [id number] [place], BLOOD PRODUCT STATUS Transfused Normal [facility] Comment on above: Performed By: #### F FU ####S PATHOLOGY [id number] [place], Performed By: #### Tereso HURTADO ####[facility] [id number] [place], BLOOD PRODUCT UNIT INFO [id number] Normal [facility] Comment on above: Performed By: #### F FU ####[facility] [id number] [place], BLOOD PRODUCT UNIT INFO [id number] Normal [facility] Comment on above: Performed By: #### F FU ####S PATHOLOGY [id number] [place], BLOOD PRODUCT UNIT TYPE 8400 Normal [facility] Comment on above: Result Comment: AB P os Performed By: #### F FU ####[facility] PATHOLOGY [id number] [place], BLOOD PRODUCT UNIT TYPE 2800 Normal [facility] Comment on above: Result Comment: AB N eg Performed By: #### F FU ####[facility] [id number] [place], PROTHROMBIN TIME AND INRon 1 INR Coag (PPP) [Relative time] 1.29 {INR} High 0.90-1.10 [facility] Comment on above: Performed By: #### P T ####[facility] PATHOLOGY [id number] [place], PT Coag (PPP) [Time] 14.5 s High 9.7-12.9 [facility] Comment on above: Performed By: #### P T ####[facility] PATHOLOGY [id number] [place], Partial Thromboplastin Timeo n 04-30-2024 aPTT Coag (Bld) [Time] 29.0 s Normal 25.1-36.5 [facility] Comment on above: Result Comment: A he matocrit value greater than 55% may lead to inaccurate results in coagulation testing. Patients having hematocrit values >55% require a special collection tube for coagulation studies. Please contact the laboratory at [phone] for redraw instructions. PERFORMED BY: [facility] [address] [place] [address] PATHOLOGIST BAKERY DELIVERER DAVID CORTEZ M.D. Performed By: #### C K, ETOH, BUN, AST, PT, LYTES, GLU, STEVEN, PTT, LIPASE, CBC ####[facility] Lme0257 [place] [address] [facility] Platelet mean volume Auto (B ld) [Entitic vol]Ordered By: Darren Ernanedz on 04-30-2024 Platelet mean volume (Bld) [Entitic vol] 11.2 fL High 6.6-10.1 [facility] Platelets Auto (Bld) [#/Vol] Ordered By: Darren Ernandez on 04-30-2024 Platelets (Bld) [#/Vol] 169 10*3/uL 150-450 [facility] Potassium [Moles/volume] in Serum or PlasmaOrdered By: Darren Ernandez on 04-30-2024 Potassium [Moles/Vol] 4.6 mmol/L 3.5-5.1 [facility] Procedureson 04-30-2024 Securities Adviser Authentication Interface Message Text Normal [facility] Progress Noteson 04-30-2024 Securities Adviser Authentication Interface Message Text Normal [facility] Securities Adviser Authentication Interface Message Text 2034 Pt arrival to unit from ED, pt placed on monitor. Labs sent. 2049 LASHON Carpenter notified of critical lactate value of 3.1. LASHON Carpenter read back critical results. New orders received. Normal [facility] Securities Adviser Authentication Interface Message Text Normal [facility] Securities Adviser Authentication Interface Message Text Normal [facility] Securities Adviser Authentication Interface Message Text Normal [facility] Prothrombin Time INRon 04-30 INR Coag (PPP) [Relative time] 1.2 {INR} Normal [facility] Comment on above: Result Comment: INR Therapeutic Range A) Pre- and Peroperative OAT started [...] valves: 3 - 4.5 Performed By: #### C K, ETOH, BUN, AST, PT, LYTES, GLU, STEVEN, PTT, LIPASE, CBC ####[facility] Ixg[address] [place] [id number] [facility] PT Coag (PPP) [Time] 13.4 s High 9.0-12.9 [facility] Comment on above: Result Comment: A he matocrit value greater than 55% may lead to inaccurate results in coagulation testing. Patients having hematocrit values >55% require a special collection tube for coagulation studies. Please contact the laboratory at [phone] for redraw instructions. Performed By: #### C K, ETOH, BUN, AST, PT, LYTES, GLU, STEVEN, PTT, LIPASE, CBC ####[facility] Lgd2447 [place] [id number] [facility] Prothrombin time (PT)Ordered By: Darren Ernandez on 04-30-2024 PT Coag (PPP) [Time] 13.4 s High 9.0-12.9 [facility] Comment on above: A hematocrit value g reater than 55% may lead to inaccurate results in coagulation testing. Patients having hematocrit values >55% require a special collection tube for coagulation studies. Please contact the laboratory at [phone] for redraw instructions. RBC Auto (Bld) [#/Vol]Ordere d By: Darren Ernandez on 04-30-2024 RBC (Bld) [#/Vol] 3.46 10*6/uL Low 3.90-5.60 [facility] RED BLOOD CELL COMPONENTon 1 BB ORDER ITEM Product status info to follow Normal [facility] Comment on above: Performed By: #### R VINAYAK ####[facility] PATHOLOGY [id number] [place] [address], Performed By: #### F FO ####[facility] PATHOLOGY [id number] [place] [address], BB ORDER ITEM Product status info to follow Normal [facility] Comment on above: Performed By: #### R VINAYAK ####[facility] PATHOLOGY [id number] [place] [address], Performed By: #### F FO ####[facility] PATHOLOGY [id number] [place] [address], RED BLOOD CELL UNIT STATUSon 04-30-2024 BLOOD PRODUCT CODE [id number] Normal [facility] Comment on above: Performed By: #### R BU ####[facility] PATHOLOGY [id number] [place] [address], BLOOD PRODUCT DESCRIPTION Red Blood Cells Normal [facility] Comment on above: Performed By: #### R BU ####[facility] PATHOLOGY [id number] [place] [address], BLOOD PRODUCT UNIT INFO [id number] Normal [facility] Comment on above: Performed By: #### R BU ####[facility] PATHOLOGY [id number] [place], [place], BLOOD PRODUCT UNIT INFO [id number] Normal [facility] Comment on above: Performed By: #### R BRYANT ####[facility] PATHOLOGY [id number] [place], [place] UNIT INFO [id number] Normal [facility] Comment on above: Performed By: #### R BRYANT ####[facility] PATHOLOGY QMUASBKGUY5707 [place] UNIT INFO [id number] Normal [facility] Comment on above: Performed By: #### R RBYANT ####[facility] PATHOLOGY [id number] [place] UNIT INFO [id number] Normal [facility] Comment on above: Performed By: #### Tereso HURTADO ####[facility] PATHOLOGY DRCCEORFQB1942 [place] UNIT INFO [id number] Normal [facility] Comment on above: Performed By: #### R BRYANT ####[facility] PATHOLOGY LPFALOOWSI8482 [place] UNIT TYPE 5100 Normal [facility] Comment on above: Result Comment: O Po s Performed By: #### R BRYANT ####[facility] PATHOLOGY EOOBCEFZBK3979 [place], [place] CODE [id number] Normal [facility] Comment on above: Performed By: #### R BRYANT ####[facility] PATHOLOGY [id number] [place], [place] DESCRIPTION Red Blood Cells Normal [facility] Comment on above: Performed By: #### R BU ####[facility] PATHOLOGY IMXPBCNGMH1703 [place] STATUS Returned to Bld Bnk Normal [facility] Comment on above: Performed By: #### R BRYANT ####[facility] PATHOLOGY EUGIWVVYYF4901 [place], Performed By: #### F FU ####S PATHOLOGY JVCFTPQFAD4245 [place] UNIT INFO [id number] Normal [facility] Comment on above: Performed By: #### R BU ####S PATHOLOGY AAHHHLVASQ2771 [place] UNIT INFO [id number] Normal [facility] Comment on above: Performed By: #### R BU ####S PATHOLOGY XHHLUBBUNI1911 [place] UNIT INFO [id number] Normal [facility] Comment on above: Performed By: #### R BU ####S PATHOLOGY DPMRTFOCUT4085 [place] UNIT INFO [id number] Normal [facility] Comment on above: Performed By: #### R BU ####S PATHOLOGY LXTERTNTEF3793 [place] UNIT TYPE 5100 Normal [facility] Comment on above: Result Comment: O Po s Performed By: #### R BU ####S PATHOLOGY UPLKDKMMKQ5570 [place], CROSSMATCH INTERPRETATION Compatible (E) Normal [facility] Comment on above: Result Comment: Maddi gency Transfusion - Transfused Uncrossmatched Performed By: #### R BU ####S PATHOLOGY RDXQOOBTQS6270 [place], Serum or plasma anion gap de terminationOrdered By: Darren Ernandez on 04-30-2024 Anion gap [Moles/Vol] 17.8 mmol/L High 6.0-15.0 [facility] Sodium [Moles/volume] in Ser um or PlasmaOrdered By: Darren Ernandez on 04-30-2024 Sodium [Moles/Vol] 134 mmol/L Low 136-145 [facility] TYPE AND SCREENon 04-30-2024 ABO and Rh group Nom (Bld) No Previous Results Normal [facility] Comment on above: Performed By: #### T S ####MHS PATHOLOGY [id number] [place], ABSC INT Negative Normal [facility] Comment on above: Performed By: #### T S ####S PATHOLOGY PRRRNRYKRD6570 [place], Treatment Plan Noteon 2023 Securities Adviser Authentication Interface Message Text Normal [facility] Type and Screenon 04-30-2024 ABO and Rh group Nom (Bld) Blood group A Rh(D) positive Normal [facility] Comment on above: Result Comment: PERF ORMED BY: [facility] [address] [place] [address] PATHOLOGIST BAKERY DELIVERER DAVID CORTEZ M.D. Performed By: #### A MALLORIE ####S PATHOLOGY TRSRMRLBDK9673 [place], Result Comment: MLF used 1 whole blood product uncrossmatchedtype O Neg. Performed By: #### T S ####S PATHOLOGY KIDGRBFPZY1095 [place], Urea nitrogen [Mass/volume] in Serum or PlasmaOrdered By: Darren Ernandez on 04-30-2024 Urea nitrogen [Mass/Vol] 30 mg/dL High 7-25 [facility] WBC Auto (Bld) [#/Vol]Ordere d By: Darren Ernandez on 04-30-2024 WBC (Bld) [#/Vol] 21.7 10*3/uL High 4.1-10.5 [facility] WHOLE BLOOD PRODUCTon 2023 BB ORDER ITEM Product status info to follow Normal [facility] Comment on above: Performed By: #### W VINAYAK ####S PATHOLOGY OIWWRDSOKG5130 [place], WHOLE BLOOD STATUSon 024 BLOOD PRODUCT CODE [id number] Normal [facility] Comment on above: Performed By: #### W BU ####S PATHOLOGY JMHAEQPYRH3169 [place] DESCRIPTION Whole Blood Normal [facility] Comment on above: Performed By: #### W BU ####MHS PATHOLOGY JRDIXKYZUJ6736 [place], [place] STATUS Transfused Normal [facility] Comment on above: Performed By: #### W BU ####MHS PATHOLOGY BAIIDBKJZG7755 [place] UNIT INFO [id number] Normal [facility] Comment on above: Performed By: #### W BU ####MHS PATHOLOGY SUIDQAPTJY3442 [place] UNIT TYPE 9500 Normal [facility] Comment on above: Result Comment: O Ne g Performed By: #### W BU ####MHS PATHOLOGY GUJAOQTNSO2459 [place], CROS[place] INTERPRETATION Incompatible Normal [facility] Comment on above: Result Comment: Maddi gency Transfusion - Transfused Uncrossmatched Performed By: #### W BU ####S PATHOLOGY QLFNLDHRFT7212 [place], XR CHEST AP OR PA 1 VIEWon 1 XR CHEST AP OR PA 1 VIEW Normal [facility] XR femur RT 2V*on 04-30-2024 XR femur RT 2V* [facility] [place] [address] XRay Report Signed Patient: Amado Tran MR#: [id number] 437 : 1965 Acct:[id number] Age/Sex: 59 / M ADM Date: 04/30/24 Loc: ER Room: Type: [facility] ER Attending Dr: Copies to: Darren Ernandez PA-C Ordering Provider: Darren Ernandez PA-C Date of Service: 04/30/24 XR/XR femur RT 2V*: FALL TRAUMA ([id number]) XR/XR shoulder LT min 2V*: trauma Right [...] Tarango Jr., D.O.04/30/2024 3:28 PM Dictation Location: [place] [address] Transcribed By: [facility] 04/30/24 1528 Dictated By: Esau Tarango Jr, DO 04/30/24 1523 Signed By: 04/30/24 1528 Normal [facility] XR pelvis 1-2Von 04-30-2024 XR pelvis 1-2V [facility] [place] [address] XRay Report Signed Patient: Amado Tran MR#: [id number] 437 : 1965 Acct:[id number] Age/Sex: 59 / M ADM Date: 04/30/24 Loc: ER Room: Type: [facility] ER Attending Dr: Copies to: Darren Ernandez [...] Tyler Mobley M.D.04/30/2024 3:07 PM Dictation Location: [place] [address] Transcribed By: PETTY 04/30/24 150 Dictated By: Tyler Moblye II, MD 04/30/24 1506 Signed By: 04/30/24 1507 Normal [facility] ALL THYROXINE (T4) FREEon Free T4 [Mass/Vol] 0.83 ng/dL 0.76 - 1. 46 ng/dL [facility] Office Visiton 03-31-2024 Follow-up visit [id number] Juanpablo Tran 1965 M Date Provider Department Center 03/31/2024 [facility] Sarika [facility] Family History Problem Relation Age of Onset Breast cancer Mother Lung cancer Father Family Status - Relation Status Age at Mother Father Level of Service:20240 AL OFFICE/OUTPATIENT ESTABLISHED LOW MDM 20 MIN Normal [facility] Aerobic Cultureon 03-23-2024 Aerobic Culture SOURCE: UMBILICUS Heavy Normal Skin Anahi 2 Days SOURCE: UMBILICUS Anaerobic Culture Results Heavy Mixed Anaerobic Anahi 3 Days SOURCE: UMBILICUS Gram Stain Result 4+ Gram Positive Cocci 4+ Gram Positive Bacilli 2+ White Blood Cells PERFORMED BY: [place] [address] PATHOLOGIST BAKERY DELIVERER DAVID CORTEZ M.D. Normal [facility] Comment on above: Performed By: #### G S, AERC #### [address] Gram Stainon 03-23-2024 Microscopic observation Gram stain Nom (Unsp spec) SOURCE: UMBILICUS Gram Stain Result 4+ Gram Positive Cocci 4+ Gram Positive Bacilli 2+ White Blood Cells PERFORMED BY: [place] [id number] PATHOLOGIST BAKERY DELIVERER DAVID CORTEZ M.D. Normal [facility] Comment on above: Performed By: #### G S, AERC #### [place] [id number] [facility] Gram stain for investigation of transfusion reactionOrdered By: Zahida Mahan on 03-23-2024 Microscopic observation Gram stain Nom (Unsp spec) 2 Days [facility] Aerobic Cultureon 07-19-2023 Aerobic Culture CELLULITIS OF UMBILI CUS ORGANISM: Corynebacterium amycolatum (O:CORAMY) Comments Organism Not Routinely Tested for Susceptibilities Quantity of Growth Moderate Growth CELLULITIS OF UMBILICUS ORGANISM: Prevotella timonensis (O:PRETIM) Comments Sent to [facility] for Sensitivity Testing Quantity of Growth Light Growth Please see scanned report located in the Laboratory/Scanned Reports section of the EMR. CELLULITIS OF UMBILICUS Gram Stain Result 1+ Epithelial Cells 4+ Gram Positive Cocci 4+ Gram Negative Bacilli 2+ Gram Positive Diplococci PERFORMED BY: [address] [address] PATHOLOGIST BAKERY DELIVERER DAVID CORTEZ M.D. Normal [facility] Comment on above: Performed By: #### G S, AERC #### [place] [id number] [facility] Gram Stainon 07-19-2023 Microscopic observation Gram stain Nom (Unsp spec) CELLULITIS OF UMBILICUS Gram Stain Result 1+ Epithelial Cells 4+ Gram Positive Cocci 4+ Gram Negative Bacilli 2+ Gram Positive Diplococci PERFORMED BY: [address] [address] PATHOLOGIST BAKERY DELIVERER DAVID CORTEZ M.D. Normal [facility] Comment on above: Performed By: #### G S, AERC #### [place] [id number] [facility] Alanine aminotransferase [En zymatic activity/volume] in Serum or PlasmaOrdered By: Roe Almaraz on 06-04-2023 ALT [Catalytic activity/Vol] 24 U/L Normal 7-52 [facility] Comment on above: Performed By: #### C BC, CMP #### [address] Albumin [Mass/volume] in Ser um or Plasma by Bromocresol green (BCG) dye binding methoOrdered By: Roe Almaraz on 06-04-2023 Albumin BCG dye [Mass/Vol] 4.0 g/dL 3.5-5.7 [facility] Alkaline phosphatase [Enzyma tic activity/volume] in Serum or PlasmaOrdered By: Roe Almaraz on 06-04-2023 ALP [Catalytic activity/Vol] 77 U/L Normal 34-104 [facility] Comment on above: Performed By: #### C CHARU, CMP #### [address] Aspartate aminotransferase [ Enzymatic activity/volume] in Serum or PlasmaOrdered By: Roe Almaraz on 06-04-2023 AST [Catalytic activity/Vol] 25 U/L Normal 13-39 [facility] Comment on above: Performed By: #### C BC, CMP #### [address] Automated basophil %Ordered By: Roe Almaraz on 06-04-2023 Basophils/100 WBC (Bld) 1.1 % Normal . [facility] Comment on above: Performed By: #### C CHARU, CMP #### [address] Automated basophil countOrde red By: Roe Almaraz on 06-04-2023 Basophils (Bld) [#/Vol] 0.1 10*3/uL Normal 0.0-0.2 [facility] Comment on above: Result Comment: PERF ORMED BY: [place] [address] PATHOLOGIST BAKERY DELIVERER DAVID CORTEZ M.D. Performed By: #### C BC, CMP #### [address] Automated blood monocyte cou ntOrdered By: Roe Almaraz on 06-04-2023 Monocytes (Bld) [#/Vol] 0.7 10*3/uL Normal 0.0-0.8 [facility] Comment on above: Performed By: #### C BC, CMP #### [address] Automated eosinophil %Ordere d By: Reo Almaraz on 06-04-2023 Eosinophils/100 WBC (Bld) 5.5 % Normal . [facility] Comment on above: Performed By: #### C BC, CMP #### [address] Automated eosinophil countOr dered By: Roe Almaraz on 06-04-2023 Eosinophils (Bld) [#/Vol] 0.5 10*3/uL High 0.0-0.45 [facility] Comment on above: Performed By: #### C BC, CMP #### [address] Automated monocyte %Ordered By: Roe Almaraz on 06-04-2023 Monocytes/100 WBC (Bld) 7.3 % Normal . [facility] Comment on above: Performed By: #### C BC, CMP #### [address] Automated neutrophil %Ordere d By: Roe Almaraz on 06-04-2023 Neutrophils/100 WBC (Bld) 69.1 % Normal . [facility] Comment on above: Performed By: #### C BC, CMP #### [address] Bilirubin.total [Mass/volume ] in Serum or PlasmaOrdered By: Roe Almaraz on 06-04-2023 Bilirubin [Mass/Vol] 0.6 mg/dL Normal 0.3-1.0 [facility] Comment on above: Performed By: #### C BC, CMP #### [facility] [address] Calcium [Mass/volume] in Ser um or PlasmaOrdered By: Roe Almaraz on 06-04-2023 Calcium [Mass/Vol] 9.8 mg/dL Normal 8.6-10.3 [facility] Comment on above: Performed By: #### C BC, CMP #### [facility] [address] Capillary blood glucose krysta urement by glucometer (mass/volume)Ordered By: Roe Almaraz on 06-04-2023 Glucose [Mass/Vol] 163 mg/dL Normal [facility] Comment on above: Random Glucose Refer ence Range is dependent on time and content of last meal. Glucose of more than 200 mg/dL in a nonstressed, ambulatory subject supports the diagnosis of Diabetes Mellitus. Result Comment: [place] om Glucose Reference Range is dependent on time and content of last meal. Glucose of more than 200 mg/dL in a nonstressed, ambulatory subject supports the diagnosis of Diabetes Mellitus. Performed By: #### G TSERING #### Point of Care testing , Carbon dioxide, total [Moles /volume] in Serum or PlasmaOrdered By: Roe Almaraz on 06-04-2023 CO2 [Moles/Vol] 30.6 mmol/L Normal 21.0-31.0 [facility] Comment on above: Performed By: #### C BC, CMP #### [facility] [address] [place] [address] [place] Chloride [Moles/volume] in S marino or PlasmaOrdered By: Roe Almaraz on 06-04-2023 Chloride [Moles/Vol] 93 mmol/L Low 98-107 [facility] Comment on above: Performed By: #### C BC, CMP #### [address] Complete Blood Count Auto Di ffon 06-04-2023 Mean Corpuscular HGB Conc 33.0 g/dL Normal 32.5-35.6 [facility] Comment on above: Performed By: #### C BC, CMP #### [address] NRBC% 0.1 /100{WBC} Normal 0-0.5 [facility] Comment on above: Performed By: #### C BC, CMP #### [address] Comprehensive Metabolic Pane nick 06-04-2023 Albumin [Mass/Vol] 4.0 g/dL Normal 3.5-5.7 [facility] Comment on above: Performed By: #### C BC, CMP #### [address] Creatinine Clr Calc Pharmacy 18.31 Normal [facility] Comment on above: Result Comment: PERF ORMED BY: [place] [address] PATHOLOGIST BAKERY DELIVERER DAVID CORTEZ M.D. Performed By: #### C BC, CMP #### [address] GFR/1.73 sq M.predicted MDRD (S/P/Bld) [Vol rate/Area] 10.200 mL/min/{1.73_m2} Normal [facility] Comment on above: Performed By: #### C BC, CMP #### [address] Creatinine [Mass/volume] in Serum or PlasmaOrdered By: Roe Almaraz on 06-04-2023 Creatinine [Mass/Vol] 5.95 mg/dL High 0.70-1.30 [facility] Comment on above: Performed By: #### C BC, CMP #### [address] ECG 12 lead ECGon 06-04-2023 ECG 12 lead ECG [facility] [place] [address] [place] [address] Electrocardiograph Report Signed Patient: Amado Tran MR#: [id number] 437 : 1965 Acct:[id number] Age/Sex: 58 / M ADM Date: 06/04/23 Loc: IR Room: Type: [facility] Attending Dr: Roe Almaraz MD Ordering Provider: [...] DO Transcribed By: MUS Signed By Orquidea Quintero DO 06/04 185 Normal [facility] Erythrocyte distribution wid th [Ratio] by Automated countOrdered By: Roe Almaraz on 06-04-2023 Erythrocyte distribution width (RBC) [Ratio] 14.3 % Normal 12.0-14.8 [facility] Comment on above: Performed By: #### C BC, CMP #### [facility] [address] [place] [address] Erythrocytes [#/volume] in B lood by Automated countOrdered By: Roe Almaraz on 06-04-2023 RBC (Bld) [#/Vol] 3.41 10*6/uL Low 3.90-5.60 [facility] Comment on above: Performed By: #### C BC, CMP #### [facility] [address] [place] [address] Glucose Poct Glucometerson 1 08-04-2022 Commemt1 Glu2: Cleaned Meter Normal [facility] Comment on above: Result Comment: PERF ORMED BY: [place] [address] PATHOLOGIST BAKERY DELIVERER DAVID CORTEZ M.D. Performed By: #### G TSERING #### Point of Care testing , Glucose [Mass/volume] in Ser um or PlasmaOrdered By: Roe Almaraz on 06-04-2023 Glucose [Mass/Vol] 188 mg/dL High 70-100 [facility] Comment on above: ADA recommended refe rence rangeRandom Glucose Reference Range is dependent on time and content of last meal. Glucose of more than 200 mg/dL in a nonstressed, ambulatory subject supports the diagnosis of Diabetes Mellitus. Result Comment: [place] om Glucose Reference Range is dependent on time and content of last meal. Glucose of more than 200 mg/dL in a nonstressed, ambulatory subject supports the diagnosis of Diabetes Mellitus. ADA recommended reference range Performed By: #### C CHARU, CMP #### [facility] [address] [place] [address] Hematocrit [Volume Fraction] of Blood by Automated countOrdered By: Roe Almaraz on 06-04-2023 Hematocrit (Bld) [Volume fraction] 34.4 % Low 38.8-50.0 [facility] Comment on above: Performed By: #### C CHARU, CMP #### [address] Hemoglobin [Mass/volume] in BloodOrdered By: Roe Almaraz on 06-04-2023 Hemoglobin (Bld) [Mass/Vol] 11.4 g/dL Low 13.0-17.0 [facility] Comment on above: Performed By: #### C CHARU, CMP #### [address] Nick 06-04-2023 L ----- Specimen: [id number] Received: 06/05/23 Status: PONCHO [place] Num: [id number] Spec Type: Surgical Subm Dr: Roe Almaraz MD Tissues: A Aneurysm (RT ARM) Procedures: AMINA Gross/Micro L3 Age/ Patient Sex Location Account Attending Physician Amado Tran/M [id number] Roe Almaraz MD SPEC NUM: [id number] RECD: 06/05/23 STATUS: PONCHO SARMAD NUM: [id number] EMMA: 06/04/[address] [facility] [address]: Roe Almaraz MD ENTERED: 06/05/23 [facility] DR: SPEC TYPE: Surgical DEPT: S ORDERED: MAINA Gross/Micro L3 ORDERED: AMINA Gross/Micro L3 Pathological Diagnosis Aneurysmal vascular plaque, [...] red-brown to frias-valdez rubbery to membranous tissue. Vamp Throater sections are submitted in one cassette labeled A1. Microscopic Description One H E slide reviewed. The microscopic examination confirms the diagnosis. CPT Codes 02084 Specimen: [id number] Received: 06/05/23 Status: TESSAJose F [place] Num: [id number] Spec Type: Surgical Subm Dr: Roe Almaraz MD Tissues: A Aneurysm (RT ARM) Procedures: Julia HUYNH/Charles L3 Patient: Amado Tran [id number] (Continued) Signed (signature on file) Umang-Rufino Bright MD 06/07/23 1857 Normal [facility] Leukocytes [#/volume] correc shiva for nucleated erythrocytes in Blood by Automated counOrdered By: Roe Almaraz on 06-04-2023 WBC corrected for nucl RBC Auto (Bld) [#/Vol] 9.5 10*3/uL 4.1-10.5 [facility] Leukocytes [#/volume] in Blo od by Automated countOrdered By: Roe Almaraz on 06-04-2023 WBC (Bld) [#/Vol] 9.5 10*3/uL Normal 4.1-10.5 [facility] Comment on above: Performed By: #### C CHARU, CMP #### [facility] [address] [place] [address] [place] Lymphocytes [#/volume] in Bl ood by Automated countOrdered By: Roe Almaraz on 06-04-2023 Lymphocytes (Bld) [#/Vol] 1.6 10*3/uL Normal 1.00-4.8 [facility] Comment on above: Performed By: #### C CHARU, CMP #### [place] [address] [place] Lymphocytes/100 leukocytes i n Blood by Automated countOrdered By: Roe Almaraz on 06-04-2023 Lymphocytes/100 WBC (Bld) 17.0 % Normal . [facility] Comment on above: Performed By: #### C BC, CMP #### [facility] [address] [place] [address] [place] MCH [Entitic mass] by Automa shiva countOrdered By: Roe Almaraz on 06-04-2023 MCH (RBC) [Entitic mass] 33.3 pg Normal 27.5-35.2 [facility] Comment on above: Performed By: #### C BC, CMP #### [facility] [address] MCHC Auto (RBC) [Mass/Vol]Or dered By: Roe Almaraz on 06-04-2023 MCHC (RBC) [Mass/Vol] 33.0 g/dL 32.5-35.6 [facility] MCV [Entitic volume] by Auto mated countOrdered By: Roe Almaraz on 06-04-2023 MCV (RBC) [Entitic vol] 100.9 fL Normal 83.5-101 [facility] Comment on above: Performed By: #### C CHARU, CMP #### [facility] [address] [place] [address] Neutrophils [#/volume] in Bl ood by Automated countOrdered By: Roe Almaraz on 06-04-2023 Neutrophils (Bld) [#/Vol] 6.6 10*3/uL Normal 1.8-7.7 [facility] Comment on above: Performed By: #### C CHARU, CMP #### [facility] [address] [place] [address] No Panel InformationOrdered By: Roe Almaraz on 06-04-2023 Bedside Glucose Comment Glu2: cleaned meter [facility] Estimated GFR (CKD-EPI) 10.200 mL/Min [facility] Creatinine Clearance (Chem 18.31 [facility] Nucleated erythrocytes [Pres ence] in Blood by Automated countOrdered By: Roe Almaraz on 06-04-2023 Nucleated RBC Auto Ql (Bld) 0.1 /100{WBC} 0-0.5 [facility] Platelet mean volume [Entiti c volume] in Blood by Automated countOrdered By: Roe Almaraz on 06-04-2023 Platelet mean volume (Bld) [Entitic vol] 10.4 fL High 6.6-10.1 [facility] Comment on above: Performed By: #### C CHARU, CMP #### [facility] [address] [place] [address] Platelets [#/volume] in Bloo d by Automated countOrdered By: Roe Almaraz on 06-04-2023 Platelets (Bld) [#/Vol] 171 10*3/uL Normal 150-450 [facility] Comment on above: Performed By: #### C BC, CMP #### [address] Potassium [Moles/volume] in Serum or PlasmaOrdered By: Roe Almaraz on 06-04-2023 Potassium [Moles/Vol] 4.9 mmol/L Normal 3.5-5.1 [facility] Comment on above: Performed By: #### C BC, CMP #### [address] Protein [Mass/volume] in Ser um or PlasmaOrdered By: Roe Almaraz on 06-04-2023 Protein [Mass/Vol] 7.9 g/dL Normal 6.4-8.9 [facility] Comment on above: Performed By: #### C CHARU, CMP #### [address] Serum globulin measurement b y calculation (mass/volume)Ordered By: Roe Almaraz on 06-04-2023 Globulin (S) [Mass/Vol] 3.9 g/dL [facility] Comment on above: Performed By: #### C CHARU, CMP #### [address] Serum or plasma albumin/glob ulin mass ratioOrdered By: Roe Almaraz on 06-04-2023 Albumin/Globulin [Mass ratio] 1.0 {ratio} [facility] Comment on above: Performed By: #### C BC, CMP #### [address] Serum or plasma anion gap de terminationOrdered By: Roe Almaraz on 06-04-2023 Anion gap [Moles/Vol] 13.3 mmol/L Normal 6.0-15.0 [facility] Comment on above: Performed By: #### C BC, CMP #### [address] Sodium [Moles/volume] in Ser um or PlasmaOrdered By: Roe Almaraz on 06-04-2023 Sodium [Moles/Vol] 132 mmol/L Low 136-145 [facility] Comment on above: Performed By: #### C BC, CMP #### [facility] [address] Urea nitrogen [Mass/volume] in Serum or PlasmaOrdered By: Roe Almaraz on 06-04-2023 Urea nitrogen [Mass/Vol] 29 mg/dL High 7-25 [facility] Comment on above: Performed By: #### C BC, CMP #### [facility] [address] HEMOGLOBINon 01-19-2022 Hemoglobin (Bld) [Mass/Vol] 12.0 g/dL Critically low 14.0-18.0 [facility] Comment on above: Performed By: #### H GB #### [facility] [address] [place] [address] Dr. Shawn Bright FREE T4on 12-26-2021 Free T4 [Mass/Vol] 0.85 ng/dL Normal 0.76-1.46 [facility] Comment on above: Performed By: #### F T4 #### [facility] [address] [place] [address] Dr. Shawn Bright LIVER PROFILEon 12-26-2021 Albumin [Mass/Vol] 3.7 g/dL Normal 3.4-5.0 [facility] Comment on above: Performed By: #### L IVER, TSH #### [facility] [address] [address] [address] Shawn Bright Albumin/Globulin [Mass ratio] 0.7 {ratio} Normal [facility] Comment on above: Performed By: #### L ADIA, TSH #### [facility] [address] [address] [address] Shawn Bright ALP [Catalytic activity/Vol] 92 U/L Normal 46-116 [facility] Comment on above: Performed By: #### L ADIA, TSH #### [facility] [address] [address] [address] Shawn Bright ALT [Catalytic activity/Vol] 27 U/L Normal 16-63 [facility] Comment on above: Performed By: #### L IVER, TSH #### [facility] [address] [place] [address] Dr. Shawn Bright AST [Catalytic activity/Vol] 16 U/L Normal 15-37 [facility] Comment on above: Performed By: #### L IVER, TSH #### [facility] [address] [place] [address] Dr. Shawn Bright BILI, CONJUGATED 0.2 mg/dL Normal 0.0-0.2 [facility] Comment on above: Performed By: #### L IVER, TSH #### [facility] [address] [place] [address] Dr. Shawn Bright Bilirubin [Mass/Vol] 0.6 mg/dL Normal 0.2-1.0 [facility] Comment on above: Performed By: #### L IVER, TSH #### [facility] [address] [place] [address] Dr. Shawn Bright Globulin (S) [Mass/Vol] 5.0 g/dL Normal [facility] Comment on above: Performed By: #### L IVER, TSH #### [facility] [address] [place] [address] Dr. Shawn Bright Protein [Mass/Vol] 8.7 g/dL Critically high 6.4-8.2 [facility] Comment on above: Performed By: #### L IVER, TSH #### [facility] [address] [place] [address] Dr. Shawn Bright TSHon 12-26-2021 TSH 4.482 uIU/mL Critically high 0.358-3.740 [facility] Comment on above: Performed By: #### L IVER, TSH #### [facility] [address] [place] [address] Dr. Shawn Bright TSH RANGE SEE BELOW Normal [facility] Comment on above: Result Comment: <0.3 4 UIU/ml HYPERTHYROID 0.34-5.60 UIU/ml EUTHYROID >5.60 UIU/ml HYPOTHYROID Performed By: #### L IVER, TSH #### [facility] [address] [place], [place] [address] Dr. Shawn Bright Cardiovascular Lab Reporton 06-05-[address] [facility] Patient Name: Juanpablo Tran [facility]: [id number] Physician: Catracho Alba M.D.Department of Service Date: 06/04/2017Medicine Birthdate: 1965Division [facility] [place], [place] [address]Whhfo Fax Cardiovascular Laboratory ReportCardiologist: Smith Schofield M.D., [place] CardiologyCLINICAL PRESENTATION: Juanpablo Tran is a 52-year-old [...] coronary angiogram.FINAL IMPRESSION:1. Right heart catheterization demonstrates ginkdwej-fu-sinadrmh elevated pulmonary capillary wedge pressure with a [...] congestive heart failure, abnormalcardiac stress test, abnormal echocardiogram.DESCRIPTIO N OF PROCEDURE: The patient was brought to the cardiaccatheterization lab in a fasting state. Informed written consent wasobtained. He was prepped and draped in usual sterile fashion over the rightneck and right wrist. Time-out was performed. He was given Versed andfentanyl for sedation. 1% lidocaine was infiltrated over the right internaljugular vein and right radial artery. Using ultrasound guidance andmicropuncture access technique, a 6-Israeli sheath was placed in the rightinternal jugular vein. Next, right heart catheterization was performed. ABerman catheter was advanced under fluoroscopic and hemodynamic monitoringto the right atrium. Pressures were obtained in the right atrium, rightventricle, pulmonary artery, and pulmonary capillary wedge position. Oxygensaturation was drawn from the pulmonary artery and the Alhaji cardiac outputand cardiac index were calculated. The Sacnhez catheter was then removed.A 6-Israeli Terumo Glidesheath slender was placed in the [...] FLUOROSCOPY TIME: 4 minutes 49 seconds, 0.7 Gy.FINDINGS:HEMODYNAMICS: 1. RA mean 19.2. RV 62/23.3. PA 59/30 [...] RCA and its branches are patent.Electronically Signed by:Catracho Alba M.D. 06/05/2017 04:38 P Catracho Alba M.D.Date Dict: 06/04/2017/03:53 P/Catracho Alba M.D.Date Trans: 06/05/2017 12:05 [id number] c: Smith Schofield M.D. [facility]5 [facility] [address] Rc Crocker M.D. [address] [place], [place] [address]herson [facility] [address] Normal [facility] Vital Signs Date Time Vital Sign Value Performing Clinician Facility 12-08-2024 13:46-0400 Body height 175.3 cm Rc Crocker MD Work Phone: [facility] 12-08-2024 13:46-0400 Body mass index (BMI) [Ratio] 39.43 kg/m2 Rc Crocker MD Work Phone: [facility] 12-08-2024 13:46-0400 Body temperature 97.11 [degF] Rc Crocker MD Work Phone: [facility] 12-08-2024 13:46-0400 Body weight 121.11 kg Rc Crocker MD Work Phone: [facility] 12-08-2024 13:46-0400 Diastolic blood pressure 66 mm[Hg] Rc Crocker MD Work Phone: [facility] 12-08-2024 13:46-0400 Heart rate 62 /min Rc Crocker MD Work Phone: [facility] 12-08-2024 13:46-0400 Respiratory rate 18 /min Rc Crocker MD Work Phone: [facility] 12-08-2024 13:46-0400 SaO2% (BldA) [Mass fraction] 92 % Rc Crocker MD Work Phone: [facility] 12-08-2024 13:46-0400 Systolic blood pressure 112 mm[Hg] Rc Crocker MD Work Phone: [facility] 09-08-2024 13:46-0500 Body height 175.3 cm Rc Crocker MD Work Phone: [facility] 09-08-2024 13:46-0500 Body temperature 97.81 [degF] Rc Crocker MD Work Phone: [facility] 09-08-2024 13:46-0500 Diastolic blood pressure 70 mm[Hg] Rc Crocker MD Work Phone: [facility] 09-08-2024 13:46-0500 Heart rate 83 /min Rc Crocker MD Work Phone: [facility] 09-08-2024 13:46-0500 Respiratory rate 20 /min Rc Crocker MD Work Phone: [facility] 02-25-2025 13:46-0500 SaO2% (BldA) [Mass fraction] 93 % Rc Crocker MD Work Phone: [facility] 09-08-2024 13:46-0500 Systolic blood pressure 124 mm[Hg] Rc Crocker MD Work Phone: [facility] 06-10-2024 15:57-0500 Diastolic blood pressure 52 mm[Hg] Acute Resident [facility] 06-10-2024 15:57-0500 Heart rate 78 /min Acute Resident [facility] 06-10-2024 15:57-0500 SaO2% (BldA) [Mass fraction] 97 % Acute Resident [facility] 06-10-2024 15:57-0500 Systolic blood pressure 121 mm[Hg] Acute Resident [facility] 05-15-2024 19:47-0400 Heart rate 67 /min Tae Thompson MD Work Phone: [facility] 05-15-2024 19:47-0400 Respiratory rate 18 /min Tae Thompson MD Work Phone: [facility] 05-15-2024 19:47-0400 SaO2% (BldA) [Mass fraction] 94 % Tae Thompson MD Work Phone: [facility] 05-15-2024 18:06-0400 Body temperature 98.6 [degF] Tae Thompson MD Work Phone: [facility] 05-15-2024 18:06-0400 Diastolic blood pressure 38 mm[Hg] Tae Thompson MD Work Phone: [facility] 05-15-2024 18:06-0400 Systolic blood pressure 115 mm[Hg] Tae Thompson MD Work Phone: [facility] 05-15-2024 13:20-0400 Body mass index (BMI) [Ratio] 45.81 kg/m2 Tae Thompson MD Work Phone: [facility] 05-15-2024 13:20-0400 Body weight 140.7 kg Tae Thompson MD Work Phone: [facility] 05-14-2024 20:08-0400 Heart rate 65 /min [facility] 05-14-2024 12:30-0400 Diastolic blood pressure 57 mm[Hg] [facility] 05-14-2024 12:30-0400 Heart rate 65 /min 1 [facility] 05-14-2024 12:30-0400 Respiratory rate 18 /min 1 [facility] 05-14-2024 12:30-0400 SaO2% (BldA) [Mass fraction] 97 % 1 [facility] 05-14-2024 12:30-0400 Systolic blood pressure 133 mm[Hg] 1 [facility] 05-08-2024 10:02-0400 Heart rate 64 /min Tae Thompson MD [facility] 05-07-2024 11:33-0400 Heart rate 67 /min Tae Thompson MD [facility] 05-05-2024 04:09-0400 SaO2% (BldA) [Mass fraction] 97.6 % Tae Thompson MD [facility] 05-04-2024 01:59-0400 SaO2% (BldA) [Mass fraction] 98.9 % Tae Thompson MD [facility] 05-03-2024 20:08-0400 Heart rate 81 /min Tae Thompson MD [facility] 05-03-2024 04:10-0400 SaO2% (BldA) [Mass fraction] 97.7 % Tae Thompson MD Work Phone: [facility] 05-02-2024 14:55-0400 SaO2% (BldA) [Mass fraction] 95.9 % Tae Thompson MD Work Phone: [facility] 05-02-2024 09:05-0400 SaO2% (BldA) [Mass fraction] 97.5 % Tae Thompson [facility] 05-02-2024 08:45-0400 SaO2% (BldA) [Mass fraction] 97.9 % Tae Thompson MD Work Phone: [facility] 05-02-2024 02:28-0400 SaO2% (BldA) [Mass fraction] 95.8 % Tae Thompson MD Work Phone: [facility] 04-30-2024 23:08-0400 Body height 175.3 cm Tae Thompson MD Work Phone: [facility] 04-30-2024 15:25-0400 Diastolic blood pressure 60 mm[Hg] PA-C Darren Ernandez Work Phone: [facility] 04-30-2024 15:25-0400 Heart rate 63 /min PA-C Darren Ernandez Work Phone: [facility] 04-30-2024 15:25-0400 Inhaled oxygen flow rate 3 L/min PA-C Darren Ernandez Work Phone: [facility] 04-30-2024 15:25-0400 Respiratory rate 20 /min PA-C Darren Ernandez Work Phone: [facility] 04-30-2024 15:25-0400 SaO2% (BldA) [Mass fraction] 97 % PA-C Darren Ernandez Work Phone: [facility] 04-30-2024 15:25-0400 Systolic blood pressure 100 mm[Hg] PA-C Darren Ernandez Work Phone: [facility] 04-30-2024 14:01-0400 Body temperature 97.6 [degF] PA-C Darrenchani Ernandez Work Phone: [facility] 04-30-2024 13:52-0400 Body height 175.26 cm PA-C Darren Ernandez Work Phone: [facility] 04-30-2024 13:52-0400 Body weight 131.54 kg PA-C Darren Ernandez Work Phone: [facility] 04-07-2024 10:26-0400 Body height 175.3 cm Rc Crocker MD Work Phone: [facility] 04-07-2024 10:26-0400 Body mass index (BMI) [Ratio] 43.86 kg/m2 Rc Crocker MD Work Phone: [facility] 04-07-2024 10:26-0400 Body temperature 97.11 [degF] Rc Crocker MD Work Phone: [facility] 04-07-2024 10:26-0400 Body weight 134.72 kg Rc Crocker MD Work Phone: [facility] 04-07-2024 10:26-0400 Diastolic blood pressure 50 mm[Hg] Rc Crocker MD Work Phone: [facility] 04-07-2024 10:26-0400 Heart rate 70 /min Rc Crocker MD Work Phone: [facility] 04-07-2024 10:26-0400 Respiratory rate 18 /min Rc Crocker MD Work Phone: [facility] 04-07-2024 10:26-0400 SaO2% (BldA) [Mass fraction] 98 % Rc Crocker MD Work Phone: [facility] 04-07-2024 10:26-0400 Systolic blood pressure 112 mm[Hg] Rc Crocker MD Work Phone: [facility] 03-23-2024 12:47-0400 Body height 175.26 cm [facility] 03-23-2024 12:47-0400 Body mass index (BMI) [Ratio] 42.8 kg/m2 [facility] 03-23-2024 12:47-0400 Body temperature 97.4 [degF] [facility] 03-23-2024 12:47-0400 Body weight 131.54 kg [facility] 03-23-2024 12:47-0400 Diastolic blood pressure 64 mm[Hg] [facility] 03-23-2024 12:47-0400 Heart rate 60 /min [facility] 03-23-2024 12:47-0400 Respiratory rate 18 /min [facility] 03-23-2024 12:47-0400 SaO2% (BldA) [Mass fraction] 98 % [facility] 03-23-2024 12:47-0400 Systolic blood pressure 93 mm[Hg] [facility] 07-19-2023 12:20-0500 Body height 175.26 cm Tiesha Cookmond Other [facility] [employer] Other 07-19-2023 12:20-0500 Body mass index (BMI) [Ratio] 44.53 kg/m2 Tiesha Doris Other [employer] Other 07-19-2023 12:20-0500 Body temperature 98 [degF] Tiesha Doris Other [employer] Other 07-19-2023 12:20-0500 Body weight 136.81 kg Tiesha Doris Other [employer] Other 07-19-2023 12:20-0500 Diastolic blood pressure 63 mm[Hg] Tiesha Doris Other [employer] Other 07-19-2023 12:20-0500 Respiratory rate 20 /min Tiesha Doris Other [employer] Other 07-19-2023 12:20-0500 SaO2% (BldA) [Mass fraction] 97 % Tiesha Doris Other [employer] Other 07-19-2023 12:20-0500 Systolic blood pressure 120 mm[Hg] Tiesha Doris Other [employer] Other 06-18-2023 11:00-0500 Body height 175.26 cm Angella Savage Other [employer] Other 06-18-2023 11:00-0500 Body mass index (BMI) [Ratio] 44.3 kg/m2 Angella Savage Other [employer] Other 06-18-2023 11:00-0500 Body temperature 96.8 [degF] Angella Savage Other [employer] Other 06-18-2023 11:00-0500 Body weight 136.08 kg Angella Savage Other [employer] Other 06-18-2023 11:00-0500 Diastolic blood pressure 60 mm[Hg] Angella Savage Other [employer] Other 06-18-2023 11:00-0500 SaO2% (BldA) [Mass fraction] 98 % Angella Savage Other [employer] Other 06-18-2023 11:00-0500 Systolic blood pressure 98 mm[Hg] Angella Savage Other [employer] Other 06-04-2023 16:20-0500 Diastolic blood pressure 58 mm[Hg] MD Rc Crocker Work Phone: [facility] 06-04-2023 16:20-0500 Heart rate 64 /min MD Rc Crocker Work Phone: [facility] 06-04-2023 16:20-0500 Respiratory rate 16 /min MD Rc Crocker Work Phone: [facility] 06-04-2023 16:20-0500 SaO2% (BldA) [Mass fraction] 99 % MD Rc Crocker Work Phone: [facility] 06-04-2023 16:20-0500 Systolic blood pressure 125 mm[Hg] MD Rc Crocker Work Phone: [facility] 06-04-2023 15:35-0500 Inhaled oxygen flow rate 6 L/min MD Rc Crocker Work Phone: [facility] 06-04-2023 13:33-0500 Body height 175.26 cm MD Rc Crocker Work Phone: [facility] 06-04-2023 13:33-0500 Body mass index (BMI) [Ratio] 44.2 kg/m2 MD Rc Crocker Work Phone: [facility] 06-04-2023 13:33-0500 Body weight 136 kg MD Rc Crocker Work Phone: [facility] 06-04-2023 11:52-0500 Body temperature 98.2 [degF] MD Rc rCocker Work Phone: [facility] 02-22-2022 14:20-0400 Diastolic blood pressure 57 mm[Hg] MD Rc Crocker Work Phone: [facility] 02-22-2022 14:20-0400 Heart rate 52 /min MD Rc Crocker Work Phone: [facility] 02-22-2022 14:20-0400 Respiratory rate 16 /min MD Rc Crocker Work Phone: [facility] 02-22-2022 14:20-0400 SaO2% (BldA) [Mass fraction] 94 % MD Rc Crocker Work Phone: [facility] 02-22-2022 14:20-0400 Systolic blood pressure 120 mm[Hg] MD Rc Crocker Work Phone: [facility] 02-22-2022 13:16-0400 Body height 175.26 cm MD Rc Crocker Work Phone: [facility] 02-22-2022 13:16-0400 Body weight 145.14 kg MD Rc Crocker Work Phone: [facility] 01-05-2022 12:45-0400 Body height 175.26 cm Mitra Flores Other [employer] Other 01-05-2022 12:45-0400 Body mass index (BMI) [Ratio] 45.77 kg/m2 Mitra Flores Other [employer] Other 01-05-2022 12:45-0400 Body temperature 97.7 [degF] Mitra Flores Other [employer] Other 01-05-2022 12:45-0400 Body weight 140.62 kg Mitra Flores Other [employer] Other 01-05-2022 12:45-0400 SaO2% (BldA) [Mass fraction] 100 % Mitra Flores Other [employer] Other Encounters Encounter Date Encounter Type Care Provider Facility Start: 01-29-2025 End: 01-29-2025 Refill Rc Crocker MD Work Phone: [facility] Comment on above: Diabetic peripheral neuropathy (HCC) Start: 01-28-2025 End: 01-28-2025 Refill Rc Crocker MD Work Phone: [facility] Comment on above: Diabetic peripheral neuropathy (HCC) Start: 12-30-2024 End: 12-30-2024 Refill Rc Crocker MD Work Phone: [facility] Comment on above: Diabetic peripheral neuropathy (HCC) Start: 12-29-2024 End: 12-29-2024 Refill Rc Crocker MD Work Phone: [facility] Comment on above: Diabetic peripheral neuropathy (HCC) Start: 12-08-2024 End: 12-08-2024 Bamboo flowsheet Rc Crocker MD Work Phone: [facility] Start: 12-08-2024 End: 12-08-2024 Bamboo flowsheet Rc Crocker MD Work Phone: [facility] Start: 12-08-2024 End: 12-08-2024 Office outpatient visit 25 minutes Rc Crocker MD Work Phone: [facility] Comment on above: Type 2 diabetes melissa itus with hyperglycemia, with long-term current use of insulin (CMS/HCC) (Primary Dx); Hypertensive kidney disease (CMS/HCC); Diabetic peripheral neuropathy (CMS/HCC); Paroxysmal atrial fibrillation (CMS/HCC); Chronic HFrEF (heart failure with reduced ejection fraction) (CMS/HCC); Adult hypothyroidism (CMS/HCC); Oophoritis Start: 12-08-2024 End: 12-08-2024 ambulatory RC CROCKER Not Available Start: 12-03-2024 End: 12-08-2024 Clinisync Result Encounter Generic External Data Provider [facility] External Department Unsolicited Start: 12-03-2024 End: 12-08-2024 Clinisync Result Encounter Generic External Data Provider [facility] External Department Unsolicited Start: 11-26-2024 End: 11-26-2024 Refill Rc Crocker MD Work Phone: [facility] Comment on above: Diabetic peripheral neuropathy (CMS/HCC) Start: 11-19-2024 End: 11[facility]19[facility] Start: 10-29-2024 End: 10-29-2024 Refill Rc Crocker MD Work Phone: [facility] Comment on above: Diabetic peripheral neuropathy (CMS/HCC); Constipation due to opioid therapy Start: 09-08-2024 End: 09-08-2024 Bamboo flowsheet Rc Crocker MD Work Phone: [facility] Start: 09-08-2024 End: 09-08-2024 Bamboo flowsheet Rc Crocker MD Work Phone: [facility] Start: 09-08-2024 End: 09-08-2024 Office outpatient visit 25 minutes Rc Crocker MD Work Phone: [facility] Comment on above: Type 2 diabetes melissa itus with hyperglycemia, with long-term current use of insulin ([facility]) (Primary Dx); Hypertensive kidney disease ([facility]); Diabetic peripheral neuropathy ([facility]); Pressure injury of left buttock, unstageable ([facility]); Chronic HFrEF (heart failure with reduced ejection fraction) ([facility]); End-stage renal disease ([facility]); Class 3 severe obesity due to excess calories with serious comorbidity and body mass index (BMI) of 40.0 to 44.9 in adult ([facility]); Type 2 diabetes mellitus with diabetic chronic kidney disease ([facility]/HCC) Start: 09-08-2024 End: 09-08-2024 ambulatory RC CROCKER Not Available Start: 09-02-2024 End: 09-02-2024 Refill Rc Crocker MD Work Phone: [facility] Comment on above: Diabetic peripheral neuropathy ([facility]) Start: 09-01-2024 End: 09-02-2024 Emergency department patient visit RC CROCKER [facility] Start: 08-18-2024 End: 08-18-2024 [facility] Start: 07-14-2024 End: 07-14-2024 ambulatory OSMAR RANGEL [facility] Start: 06-23-2024 End: 06-24-2024 Emergency department patient visit RC CROCKER [facility] Start: 06-22-2024 End: 06-22-2024 ambulatory KAYODE BIGGS Facility:[facility] Start: 06-22-2024 End: 06-22-2024 Patient encounter procedure Kayode Biggs MD Work Phone: [facility] Comment on above: Aftercare following surgery of the musculoskeletal system (Primary Dx); Closed displaced fracture of body of left scapula, initial encounter; Multiple fractures of pelvis with unstable disruption of pelvic ring, initial encounter for closed fracture (HCC); Closed displaced spiral fracture of shaft of right femur with routine healing, subsequent encounter Start: 06-22-2024 End: 06-22-2024 ambulatory UNKNOWN PROVIDER Facility:[facility] Start: 06-19-2024 End: 06-19-2024 Telephone encounter Wenceslao Johnson MD Work Phone: [facility] Start: 06-16-2024 End: 06-16-2024 [facility] Start: 06-13-2024 End: 06-13-2024 ambulatory [facility] Start: 06-10-2024 End: 06-21-2024 Office outpatient visit 10 minutes Acute Care Surgery Resident [facility] Comment on above: Multiple closed frac tures of ribs of both sides with routine healing, subsequent encounter (Primary Dx); Fall from height of greater than 3 feet Start: 06-10-2024 End: 06-21-2024 ambulatory UNKNOWN PROVIDER Facility:[facility] Start: 06-05-2024 End: 06-08-2024 Telephone encounter Gricelda Russell LPN [facility] Start: 06-01-2024 End: 06-01-2024 ambulatory MONICA GARCIA [facility] Start: 05-27-2024 End: 05-27-2024 ambulatory HARRISON TOBIN [facility] Start: 05-23-2024 End: 05-23-2024 Telephone encounter Delmy Bianchi [facility] Selene rider Comment on above: infection in right e xtremity Start: 05-20-2024 End: 05-28-2024 Evaluation and management of inpatient ASA FERMINKrissy [facility] Start: 05-20-2024 End: 05-20-2024 Emergency department patient visit [facility] Start: 05-14-2024 End: 05-14-2024 Evaluation and management of inpatient Rojelio Perea MD Work Phone: [facility] Start: 05-14-2024 End: 05-14-2024 Evaluation and management of inpatient ROJELIO PEREA Facility:[facility] Start: 05-14-2024 End: 05-14-2024 Evaluation and management of inpatient Rojelio Perea MD Work Phone: [facility] Start: 05-03-2024 End: 05-03-2024 Evaluation and management of inpatient Rojelio Perea MD Work Phone: [facility] Comment on above: Arrived Start: 05-02-2024 End: 05-02-2024 Evaluation and management of inpatient Rojelio Perea MD Work Phone: [facility] Comment on above: Arrived Start: 05-01-2024 Evaluation and manag ement of inpatient ROJELIO PEREA Facility:[facility] Start: 05-01-2024 End: 05-01-2024 Evaluation and management of inpatient Rojelio Sandra LOPEZ Work Phone: [facility] Comment on above: Arrived Start: 04-30-2024 End: 05-15-2024 Evaluation and management of inpatient ROJELIO PEREA Facility:[facility] Start: 04-30-2024 Emergency department patient visit DARREN ERNANDEZ Facility:[facility] Start: 04-30-2024 End: 05-15-2024 Evaluation and management of inpatient Tae Thompson MD Work Phone: [address] Start: 04-30-2024 End: 04-30-2024 E.D. Visit Amanda NOGUEIRA [facility] Social Work Comment on above: Trauma/complex Medic al Situation Diabetic peripheral neuropathy ([facility]/HCC) Start: 04-30-2024 End: 04-30-2024 Emergency department patient visit ENRIQUE Ernandez Work Phone: [facility] Work Phone: Start: 04-30-2024 Emergency department patient visit UNKNOWN PROVIDER Facility:[facility] Start: 04-21-2024 End: 04-21-2024 Clinisync Result Encounter Generic External Data Provider [facility] External Department Unsolicited Start: 04-21-2024 End: 04-21-2024 Clinisync Result Encounter Generic External Data Provider [facility] External Department Unsolicited Start: 04-08-2024 Non-patient / Non-visit ENRIQUE Ernandez Work Phone: [facility] Work Phone: Start: 04-07-2024 End: 04-07-2024 Bamboo flowsheet Rc Crocker MD Work Phone: [facility] Start: 04-07-2024 End: 04-07-2024 Bamvinayako flowsheet Rc Crocker MD Work Phone: [facility] Start: 04-07-2024 End: 04-07-2024 Office outpatient visit 25 minutes Rc Crocker MD Work Phone: [facility] Comment on above: Type 2 diabetes melissa itus with hyperglycemia, with long-term current use of insulin (CMS/HCC) (Primary Dx); Hypertensive kidney disease (CMS/HCC); Diabetic peripheral neuropathy (CMS/HCC); Major depressive disorder, recurrent, moderate (HCC) (CMS/HCC); Chronic HFrEF (heart failure with reduced ejection fraction) (CMS/HCC); Morbid obesity due to excess calories (CMS/HCC); Dependence on renal dialysis (CMS/HCC); Gastroesophageal reflux disease without esophagitis; Body mass index (BMI) 45.0-49.9, adult (CMS/HCC); Immunodeficiency due to conditions classified elsewhere (CMS/HCC) Start: 04-07-2024 End: 04-07-2024 ambulatory RC CROCKER Not Available Start: 04-01-2024 End: 04-01-2024 Refill Rc Crocker MD Work Phone: [facility] Comment on above: Diabetic peripheral neuropathy (CMS/HCC) Start: 03-31-2024 End: 03-31-2024 [facility] Start: 03-23-2024 End: 03-23-2024 ambulatory Zahida Fredrick Kalli [facility] Work Phone: Start: 03-23-2024 End: 03-23-2024 Departed Referred PRINTING MACHINE MECHANICSean Mahan Work Phone: [facility] [place] Work Phone: Start: 03-23-2024 End: 03-23-2024 ambulatory [facility] Work Phone: Start: 03-23-2024 End: 03-23-2024 Patient encounter procedure [facility] Work Phone: Start: 03-09-2024 Non-patient / Non-visit ENRIQUE Ernandez Work Phone: [facility] Work Phone: Start: 03-02-2024 End: 03-02-2024 Refill Rc Crocker MD Work Phone: [facility] Comment on above: Diabetic peripheral neuropathy ([facility]/HCC) Start: 02-05-2024 Non-patient / Non-visit [facility] Work Phone: Start: 01-30-2024 End: 01-30-2024 ambulatory XAVIER ROLAND Not Available Start: 01-06-2024 Non-patient / Non-visit [facility] Work Phone: Start: 07-19-2023 Office outpatient vi sit 15 minutes Tiesha George [facility] Start: 07-19-2023 End: 07-19-2023 ambulatory MD Rc Crocker Work Phone: [facility] Work Phone: Start: 07-19-2023 End: 07-19-2023 Departed Referred MD Rc Crocker Work Phone: [facility] [place] Work Phone: Start: 06-18-2023 End: 06-18-2023 ambulatory Angella Savage Other [employer] Other Start: 06-18-2023 Patient encounter procedure Angella Savage [facility] Start: 06-04-2023 End: 06-04-2023 Admission to same day surgery center MD Rc Crocker Work Phone: [facility] Work Phone: Start: 06-04-2023 End: 06-04-2023 ambulatory Roe Almaraz Facility:[facility] Start: 05-16-2023 End: 05-16-2023 ambulatory Roe Almaraz Other [employer] Other Start: 05-16-2023 Telephone encounter Roe Almaraz [facility] Vascular Surgery Start: 06-04-2022 Adult health examination Jefftereso callie Almaraz Other [employer] Other Start: 02-22-2022 End: 02-22-2022 Admission to same day surgery center MD Rc Crocker Work Phone: [facility] Start: 02-12-2022 End: 02-12-2022 ambulatory Roe Almaraz Other [employer] Other Start: 02-12-2022 Telephone encounter Roe Almaraz [facility] Start: 01-19-2022 End: 01-20-2022 ambulatory LUISA PACHECO Facility: Start: 01-08-2022 End: 01-08-2022 ambulatory Mitra Flores Other [employer] Other Start: 01-08-2022 Telephone encounter Mitra Flores [facility] [address] Start: 01-05-2022 End: 01-05-2022 ambulatory Mitra Flores Other [facility] [employer] Other Start: 01-05-2022 Office outpatient vi sit 15 minutes Mitra Flores [facility] Start: 12-26-2021 End: 12-27-[address] RC CROCKER Facility:[facility] Start: 10-19-[address] [facility] Start: 07-14-2021 ambulatory JAZMYNE DENSON Facsmiley lity:[facility] Start: 08-27-2017 End: 08-28-2017 Ambulatory DEFAULT PHYSICIAN Facility:[facility] Start: 06-04-2017 End: 06-05-2017 Ambulatory CATRACHOPAUL ALBA Facility:[facility] Start: 05-21-2017 End: 05-22-2017 Ambulatory DEFAULT PHYSICIAN Facility:[facility] Procedures Date Procedure Procedure Detail Performing Clinician Start: 12-03-2024 RT PULMONARY FUNCTION TEST Generic External Data Provider Start: 05-15-2024 Glucose blood reagent strip To Be Assigned Start: 05-15-2024 Glucose blood reagent strip To Be Assigned Start: 05-15-2024 Hepatitis c antibody Cl kala Lucas PRINTING MACHINE MECHANIC-ASSOCIATE STORE DIRECTOR Work Phone: Start: 05-15-2024 Glucose blood reagent strip To Be Assigned Start: 05-15-2024 Glucose blood reagent strip To Be Assigned Start: 05-15-2024 Assay of magnesium Yeni Reed MD Work Phone: Start: 05-14-2024 Glucose blood reagent strip To Be Assigned Start: 05-14-2024 Radiologic exam ches t single view Jodee Marshall PA-C Work Phone: Start: 05-14-2024 Glucose blood reagent strip To Be Assigned Start: 05-14-2024 Glucose blood reagent strip To Be Assigned Start: 05-14-2024 Intro cath dialysis circuit w/trluml balo angiop Jodee Marshall PA-C Work Phone: Start: 05-14-2024 Glucose blood reagent strip To Be Assigned Start: 05-14-2024 Assay of magnesium Yeni Reed MD Work Phone: Start: 05-13-2024 Glucose blood reagent strip To Be Assigned Start: 05-13-2024 Glucose blood reagent strip To Be Assigned Start: 05-13-2024 Glucose blood reagent strip To Be Assigned Start: 05-13-2024 Glucose blood reagent strip To Be Assigned Start: 05-13-2024 Assay of magnesium Yeni Reed MD Work Phone: Start: 05-12-2024 Glucose blood reagent strip To Be Assigned Start: 05-12-2024 Glucose blood reagent strip To Be Assigned Start: 05-12-2024 Glucose blood reagent strip Joel Canales MD Work Phone: Start: 05-12-2024 Glucose blood reagent strip Joel Canales MD Work Phone: Start: 05-12-2024 Assay of magnesium Yeni Reed MD Work Phone: Start: 05-11-2024 Glucose blood reagent strip Joel Canales MD Work Phone: Start: 05-11-2024 Glucose blood reagent strip Joel Canales MD Work Phone: Start: 05-11-2024 Glucose blood reagent strip Joel Canales MD Work Phone: Start: 05-11-2024 End: 05-11-2024 Assay of magnesium Gorge Reed MD Work Phone: Start: 05-10-2024 Glucose blood reagent strip Farrah Asencio MD Work Phone: Start: 05-10-2024 Glucose blood reagent strip Farrah Asencio MD Work Phone: Start: 05-10-2024 Glucose blood reagent strip Farrah Asencio MD Work Phone: Start: 05-10-2024 Blood typing, ABO, R ho(D) and RBC antibody screening Gorge Reed MD Work Phone: Start: 05-10-2024 Microsomal antibodies each Mima Narayan MD Work Phone: Start: 05-10-2024 Glucose blood reagent strip Farrah Asencio MD Work Phone: Start: 05-10-2024 Assay of magnesium Yeni Reed MD Work Phone: Start: 05-10-2024 Hepatic function panel Mima Narayan MD Work Phone: Start: 05-09-2024 Glucose blood reagent strip Farrah Asencio MD Work Phone: Start: 05-09-2024 Glucose blood reagent strip Farrah Asencio MD Work Phone: Start: 05-09-2024 Blood count complete automated Rodney Bagley MD Work Phone: Start: 05-09-2024 Glucose blood reagent strip Farrah Asencio MD Work Phone: Start: 05-09-2024 End: 05-09-2024 Transfusion of packed red blood cells Leighann Candelario MD Work Phone: Start: 05-09-2024 CORTISOL RANDOM Leighann spears MD Work Phone: Start: 05-09-2024 RBC leukocytes reduced Leighann Candelario MD Work Phone: Start: 05-09-2024 RED BLOOD CELL UNIT STATUS Leighann Candelario MD Work Phone: Start: 05-09-2024 Glucose blood reagent strip Farrah Asencio MD Work Phone: Start: 05-09-2024 Transfusion of packe d red blood cells Shahriar Pierce MD Work Phone: Start: 05-09-2024 RBC leukocytes reduced Shahriar Pierce MD Work Phone: Start: 05-09-2024 RED BLOOD CELL UNIT STATUS Shahriar Pierce MD Work Phone: Start: 05-09-2024 End: 05-09-2024 Cyanocobalamin vitamin b-12 Gorge Reed MD Work Phone: Start: 05-08-2024 Glucose blood reagent strip Farrah Asencio MD Work Phone: Start: 05-08-2024 Glucose blood reagent strip Farrah Asencio MD Work Phone: Start: 05-08-2024 Glucose blood reagent strip Farrah Asencio MD Work Phone: Start: 05-08-2024 Glucose blood reagent strip Farrah Asencio MD Work Phone: Start: 05-08-2024 Ecg routine ecg w/le ast 12 lds trcg only w/o i&r Mima Narayan MD Work Phone: Start: 05-08-2024 Assay of magnesium Yeni Reed MD Work Phone: Start: 05-07-2024 Glucose blood reagent strip Farrah Asencio MD Work Phone: Start: 05-07-2024 Glucose blood reagent strip Farrah Asencio MD Work Phone: Start: 05-07-2024 Glucose blood reagent strip Farrah Asencio MD Work Phone: Start: 05-07-2024 Ecg routine ecg w/le ast 12 lds trcg only w/o i&r Mima Narayan MD Work Phone: Start: 05-07-2024 Glucose blood reagent strip Farrah Asencio MD Work Phone: Start: 05-07-2024 Assay of magnesium Yeni Reed MD Work Phone: Start: 05-06-2024 Glucose blood reagent strip Farrah Asencio MD Work Phone: Start: 05-06-2024 End: 05-06-2024 Blood count complete automated Rodney Bagley MD Work Phone: Start: 05-06-2024 End: 05-06-2024 Transfusion of packed red blood cells Farrah Asencio MD Work Phone: Start: 05-06-2024 Glucose blood reagent strip Farrah Asencio MD Work Phone: Start: 05-06-2024 Ecg routine ecg w/le ast 12 lds trcg only w/o i&r Gorge Reed MD Work Phone: Start: 05-06-2024 Blood typing, ABO, R ho(D) and RBC antibody screening Farrah Asenico MD Work Phone: Start: 05-06-2024 RBC leukocytes reduced Farrah Asencio MD Work Phone: Start: 05-06-2024 RED BLOOD CELL UNIT STATUS Jose Juan Carpenter PRINTING MACHINE MECHANIC-ASSOCIATE STORE DIRECTOR Work Phone: Start: 05-06-2024 25 hydroxy includes fractions if performed Gorge Reed MD Work Phone: Start: 05-05-2024 Glucose blood reagent strip Farrah Asencio MD Work Phone: Start: 05-05-2024 Glucose blood reagent strip Farrah Asencio MD Work Phone: Start: 05-05-2024 Glucose blood reagent strip Farrah Asencio MD Work Phone: Start: 05-05-2024 Glucose blood reagent strip Farrah Asencio MD Work Phone: Start: 05-05-2024 Assay of magnesium Yeni Reed MD Work Phone: Start: 05-05-2024 Blood gases any comb ination ph pco2 po2 co2 hco3 Mary Hernandez MD Work Phone: Start: 05-04-2024 Basic metabolic pane l calcium total Farrah Asencio MD Work Phone: Start: 05-04-2024 Glucose blood reagent strip Farrah Asencio MD Work Phone: Start: 05-04-2024 Glucose blood reagent strip Farrah Asencio MD Work Phone: Start: 05-04-2024 Glucose blood reagent strip Farrah Asencio MD Work Phone: Start: 05-04-2024 Glucose blood reagent strip Farrah Asencio MD Work Phone: Start: 05-04-2024 Assay of magnesium Vinnie Perea MD Work Phone: Start: 05-04-2024 Blood gases any comb ination ph pco2 po2 co2 hco3 Mary Hernandez MD Work Phone: Start: 05-03-2024 Glucose blood reagent strip Ioana Krishnan MD Work Phone: Start: 05-03-2024 Glucose blood reagent strip Ioana Krishnan MD Work Phone: Start: 05-03-2024 Glucose blood reagent strip Ioana Krishnan MD Work Phone: Start: 05-03-2024 Glucose blood reagent strip Ioana Krishnan MD Work Phone: Start: 05-03-2024 Radiologic exam ches t single view Royce Strausbaugh DO Work Phone: Start: 05-03-2024 End: 05-03-2024 Transfusion of packed red blood cells Shahriar Pierce MD Work Phone: Start: 05-03-2024 RBC leukocytes reduced Shahriar Pierce MD Work Phone: Start: 05-03-2024 RED BLOOD CELL UNIT STATUS Shahriar Pierce MD Work Phone: Start: 05-03-2024 Glucose blood reagent strip Ioana Krishnan MD Work Phone: Start: 05-03-2024 End: 05-03-2024 Assay of magnesium Rojelio Perea MD Work Phone: Start: 05-03-2024 Blood gases any comb ination ph pco2 po2 co2 hco3 Royce Strausbaugh DO Work Phone: Start: 05-02-2024 Glucose blood reagent strip Ioana Krishnan MD Work Phone: Start: 05-02-2024 Glucose blood reagent strip Ioana Krishnan MD Work Phone: Start: 05-02-2024 End: 05-02-2024 Assay of magnesium Royce Reynoso DO Work Phone: Start: 05-02-2024 Blood gases any comb ination ph pco2 po2 co2 hco3 Royce Reynoso DO Work Phone: Start: 05-02-2024 End: 05-02-2024 Fluoroscopy up to 1 hour physician/qhp time Tyler Lynn MD Work Phone: Start: 05-02-2024 Assay of lactate Pam Smyth MD Work Phone: Start: 05-02-2024 Carboxyhemoglobin measurement Pam Smyth MD Work Phone: Start: 05-02-2024 End: 05-02-2024 Blood gases any combination ph pco2 po2 co2 hco3 Pam Smyth MD Work Phone: Start: 05-02-2024 End: 05-02-2024 Optx fem shft fx w/insj imed implt w/wo screw Kayode Biggs MD Work Phone: Start: 05-02-2024 End: 05-02-2024 Perq skeletal fixation pst pelvic bone fx&/dis Kayode Biggs MD Work Phone: Start: 05-02-2024 FFP Barbara bear MD Work Phone: Start: 05-02-2024 PLASMA STATUS Barbara Alfaro MD Work Phone: Start: 05-02-2024 RED BLOOD CELL COMPONENT Barbara Alfaro MD Work Phone: Start: 05-02-2024 RED BLOOD CELL UNIT STATUS Barbara Alfaro MD Work Phone: Start: 05-02-2024 Glucose blood reagent strip Ioana Krishnan MD Work Phone: Start: 05-02-2024 End: 05-02-2024 Assay of magnesium Rojelio Perea MD Work Phone: Start: 05-02-2024 Blood gases any comb ination ph pco2 po2 co2 hco3 Royce Strausbaugh DO Work Phone: Start: 05-01-2024 Glucose blood reagent strip Ioana Krishnan MD Work Phone: Start: 05-01-2024 Blood count complete automated Rojelio Perea MD Work Phone: Start: 05-01-2024 Blood gases any comb ination ph pco2 po2 co2 hco3 Rodney Bagley MD Work Phone: Start: 05-01-2024 End: 05-01-2024 Thromboplastin time partial plasma/whole blood Royce Strausbaugh DO Work Phone: Start: 05-01-2024 Blood count complete automated Rojelio Perea MD Work Phone: Start: 05-01-2024 Blood gases any comb ination ph pco2 po2 co2 hco3 Royce Strausbaugh DO Work Phone: Start: 05-01-2024 Radex spine lumbosac ral 2/3 views Tyler Lynn MD Work Phone: Start: 05-01-2024 Ecg routine ecg w/le ast 12 lds trcg only w/o i&r Tae Thompson MD Work Phone: Start: 05-01-2024 End: 05-01-2024 Prothrombin time Royce Strausbaugh DO Work Phone: Start: 05-01-2024 Hepatitis b surf ant ibody hbsab Ayleen Kurtz MD Start: 05-01-2024 Iaad ia hepatitis b surface antigen Ayleen Kurtz MD Start: 05-01-2024 Radiologic exam ches t single view Rojelio Perea MD Work Phone: Start: 05-01-2024 Blood gases any comb ination ph pco2 po2 co2 hco3 Rojelio Perea MD Work Phone: Start: 05-01-2024 End: 05-01-2024 Radiologic examination pelvis 1/2 views Valente Donaldson MD Work Phone: Start: 05-01-2024 Glucose blood reagent strip Rojelio Perea MD Work Phone: Start: 05-01-2024 Blood gases any comb ination ph pco2 po2 co2 hco3 Rojelio Perea MD Work Phone: Start: 05-01-2024 End: 05-01-2024 Transfusion of fresh frozen plasma Rojelio Perea MD Work Phone: Start: 05-01-2024 End: 05-01-2024 Radiologic examination knee 1/2 views Valente Donaldson MD Work Phone: Start: 05-01-2024 Plasma 1 donor frz w/in 8 hr Rojelio Perea MD Work Phone: Start: 05-01-2024 PLASMA STATUS Provider Unspecified Start: 05-01-2024 Radiologic examinati on knee 1/2 views Valente Donaldson MD Work Phone: Start: 05-01-2024 End: 05-01-2024 Assay of lactate Rojelio Perea MD Work Phone: Start: 05-01-2024 Blood gases any comb ination ph pco2 po2 co2 hco3 Rojelio Perea MD Work Phone: Start: 04-30-2024 HC WHOLE BLOOD FOR TRANSFUSION Provider Unspecified Start: 04-30-2024 WHOLE BLOOD STATUS Prov ider Unspecified Start: 04-30-2024 End: 04-30-2024 Transfusion of fresh frozen plasma Rojelio Perea MD Work Phone: Start: 04-30-2024 Plasma 1 donor frz w/in 8 hr Rojelio Perea MD Work Phone: Start: 04-30-2024 PLASMA STATUS Provider Unspecified Start: 04-30-2024 End: 04-30-2024 Assay of lactate Rojelio Perea MD Work Phone: Start: 04-30-2024 Blood gases any comb ination ph pco2 po2 co2 hco3 Troy Gregg MD Work Phone: Start: 04-30-2024 Blood gases any comb ination ph pco2 po2 co2 hco3 Troy Gregg MD Work Phone: Start: 04-30-2024 Ct angiography neck w/contrast/noncontrast Juan Moseleyovich PA-C Work Phone: Start: 04-30-2024 Ct cervical spine w/ o contrast material Juan Pradipovich PA-C Work Phone: Start: 04-30-2024 Ct head/brain w/o co ntrast material Juan Pradipovich PA-C Work Phone: Start: 04-30-2024 Ct pelvis w/o contra st material Valente Donaldson MD Work Phone: Start: 04-30-2024 Ct thorax w/contrast material Juan Pradipovich PA-C Work Phone: Start: 04-30-2024 Radiology Comparison study - date and time Juan Caldwellh PA-C Work Phone: Start: 04-30-2024 Blood count smear mc rscp w/mnl difrntl wbc count Juan Caldwellh PA-C Work Phone: Start: 04-30-2024 Blood typing serologic abo Juan Caldwellh PA-C Work Phone: Start: 04-30-2024 Radiologic exam ches t single view Juan Caldwellh PA-C Work Phone: Start: 04-30-2024 FFP Provider U nspecified Start: 04-30-2024 RED BLOOD CELL COMPONENT Provider Unspecified Start: 04-30-2024 Plasma 1 donor frz w/in 8 hr Provider Unspecified Start: 04-30-2024 End: 04-30-2024 PLASMA STATUS Provider Unspecified Start: 04-30-2024 End: 04-30-2024 RED BLOOD CELL UNIT STATUS Provider Unsp ecified Start: 04-30-2024 Blood typing, ABO, R ho(D) and RBC antibody screening Juan Espinosa [employer] Work Phone: Start: 04-30-2024 Antibody screen Zahida Kalli Comment on above: Result Comment: PERF ORMED BY: [facility] [address] [address] PATHOLOGIST BAKERY DELIVERER DAVID CORTEZ M.D. Start: 04-30-2024 CT cervical spine wi thout contrast PA-C Darren Ernandez Work Phone: Start: 04-30-2024 CT of abdomen and pe lvis without contrast PA-C Darren Ernandez Work Phone: Start: 04-30-2024 CT of chest without contrast AK-C Darren Ernandez Work Phone: Start: 04-30-2024 CT of head without contrast AK-C Darren Ernandez Work Phone: Start: 04-30-2024 Plain radiography of pelvis PA-C Darren Ernandez Work Phone: Start: 04-30-2024 Plain X-ray of right femur PA-C Darren Ernandez Work Phone: Start: 04-21-2024 ALL THYROXINE (T4) FREE Generic External Data Provider Start: 03-23-2024 Investigation of tra nsfusion reaction PA-C Darren Ernandez Work Phone: Start: 06-04-2023 Arteriovenous fistulization MD Rc Crocker Work Phone: Start: 06-04-2023 IR Fistulogram/TLA S tent (Right) MD Rc Crocker Work Phone: Start: 02-22-2022 IR Fistulogram/TLA S tent (Right) MD Rc Crocker Work Phone: Start: 11-19-2019 Colonoscopy Rc roberto MD Work Phone: Depression screening Roe Almaraz Other Screening for malign ant neoplasm of prostate Roe Almaraz Other Plan of Treatment Date Care Activity Detail Author Start: 04-30-2034 DTaP,Tdap and Td Vaccines (2 - Td or Tdap) DTaP,Tdap and Td Vaccines (2 - Td or Tdap) [facility] Start: 04-30-2034 Tetanus vaccination [facility] Start: 02-16-2030 Urine screening for protein Diabetes: Urine Protein Screening [facility] Comment on above: Postponed from 01/25 (Other Medical Reasons) Start: 11-18-2029 Screening for malign ant neoplasm of colon [facility] Start: 05-28-2025 Adult BMI Screening Adult BMI Screen ing [facility] Start: 05-22-2025 Adult BMI Screening Adult BMI Screen ing [facility] Start: 05-21-2025 Tobacco Screening Tobacco Screening [facility] Start: 03-18-2025 End: 03-18-2025 Patient encounter procedure 03/18/2025 1:30 PM EDT Office Visit [facility] [address] [place] [phone] Rc Crocker MD [address] [place] [phone] [facility] Start: 03-16-2025 End: 03-16-2025 Patient encounter procedure 03/16/2025 1:15 PM EDT Office Visit [facility] [address] [place] [address] Rc Crocker MD [address] [place] [phone] [facility] Start: 03-15-2025 Influenza vaccination [facility] Start: 01-17-2025 Hemoglobin A1c measurement Diabetes: Hemoglobin A1C [facility] Start: 12-08-2024 End: 12-08-2024 Patient encounter procedure [facility] Comment on above: Arrived Start: 09-08-2024 End: 09-08-2024 Patient encounter procedure [facility] Comment on above: Arrived Start: 07-24-2024 Hemoglobin A1c measurement Diabetes: Hemoglobin A1C [facility] Start: 06-22-2024 End: 06-22-2024 Patient encounter procedure 06/22/2024 3:00 PM EST Office Visit [facility] [address] [place] [id number] Kayode Biggs MD [address] [place] [id number] Closed displaced fracture of body of left scapula, initial encounter (Primary Dx); Multiple fractures of pelvis with unstable disruption of pelvic ring, initial encounter for closed fracture (HCC); Closed displaced spiral fracture of shaft of right femur with routine healing, subsequent [facility] Comment on above: Closed displaced fra cture of body of left scapula, initial encounter (Primary Dx); Multiple fractures of pelvis with unstable disruption of pelvic ring, initial encounter for closed fracture (HCC); Closed displaced spiral fracture of shaft of right femur with routine healing, subsequent encounter Start: 06-22-2024 End: 06-22-2025 XR Femur - right 2 Views [employer] Work Phone: Comment on above: Expected: 06/22/2024 , Expires: 06/19/2025 Expected: 06/22/2024 , Expires: 06/22/2025 Start: 06-22-2024 End: 06-22-2025 XR Pelvis Inlet and Outlet [facility] Comment on above: Expected: 06/22/2024 , Expires: 06/22/2025 Start: 06-22-2024 End: 06-19-2025 XR Pelvis Views and Inlet and Outlet XR PELVIS INLET OUTLET 3 VIEWS Imaging Routine Multiple fractures of pelvis with unstable disruption of pelvic ring, initial encounter for closed fracture (HCC) Expected: 06/22/2024, Expires: 06/19/2025 [employer] Comment on above: Expected: 06/22/2024 , Expires: 06/19/2025 Start: 06-22-2024 End: 06-22-2025 XR Scapula - left Views [facility] Comment on above: Expected: 06/22/2024 , Expires: 06/19/2025 Expected: 06/22/2024 , Expires: 06/22/2025 Start: 06-19-2024 End: 06-19-2025 XR Thoracic and lumbar spine 2 Views for scoliosis XR SCOLIOSIS PA + LAT 2 OR 3 VIEWS Imaging Routine Closed fracture of transverse process of lumbar vertebra with routine healing, subsequent encounter Expected: 06/19/2024, Expires: 06/19/2025 [employer] Work Phone: Comment on above: Expected: 06/19/2024 , Expires: 06/19/2025 Start: 06-18-2024 End: 06-18-2024 Patient encounter procedure 06/18/2024 9:30 AM EST Office Visit [facility] [address] [place] [address] Rc Crocker MD [address] [place] [address] [facility] Start: 05-12-2024 End: 05-12-2024 Patient encounter procedure 05/12/2024 1:45 PM EDT Office Visit [facility] [facility] [address] [place] [id number] Mu Martinez DPFredrick [address] [place], [place] [id number] [facility] Start: 04-30-2024 Plain X-ray of left shoulder XR shoulder LT min 2V* [facility] Start: 04-30-2024 XR Shoulder - left Views [facility] Start: 04-23-2024 Hemoglobin A1c measurement Diabetes: Hemoglobin A1C [facility] Start: 04-07-2024 End: 04-07-2024 Patient encounter procedure [facility] Comment on above: Arrived Start: 03-23-2024 Microscopic observat ion [Identifier] in Unspecified specimen by Gram stain [facility] Start: 03-23-2024 [facility] Start: 03-15-2024 COVID-19 Vaccine ( season) COVID-19 Vaccine ( season) [facility] Start: 03-15-2024 COVID-19 Vaccine ( season) COVID-19 Vaccine ( season) [facility] Start: 03-15-2024 Influ[facility] Start: 03-15-2024 [facility] Start: 2024 RSV vaccine (adult) (1 - Risk 60-74 years 1-dose series) RSV vaccine (adult) (1 - Risk 60-74 years 1-dose series) [facility] Start: 07-19-2023 Aerobic Culture Aerobic Culture [facility] Start: 07-19-2023 Anaerobic Culture Anaerobic Culture [facility] Start: 07-19-2023 Microscopic observat ion [Identifier] in Unspecified specimen by Gram stain Gram Stain [facility] Start: 07-19-2023 [facility] Start: 06-04-2023 End: 06-04-2023 [facility] Start: 02-22-2022 [facility] Work Phone: Start: 01-12-2021 [facility] Start: 01-25-2014 Administration of varicella zoster vaccine Zoster (Shingles) Vaccine (1 of 2) [facility] Start: 01-25-2014 Shingles (RZV) Vacci ne (1 of 2) [facility] Start: 01-25-2009 Screening for malign ant neoplasm of colon [facility] Start: 01-25-1999 Lipid panel [facility] Start: 1984 Hepatitis B vaccination [facility] Start: 01-25-1983 Hepatitis A (HAV) Vaccine (optional start 19+ years) Hepatitis A (HAV) Vaccine (optional start 19+ years) [facility] Start: 01-25-1983 [facility] Start: 01-25-1982 Adult BMI Follow Up Plan Adult BMI Follow Up Plan [facility] Start: 01-25-1982 Diabetic foot examination Diabetic Foot Exam [facility] Start: 01-25-1982 Hepatitis C screening Hepatitis C An tibody [facility] Start: 01-25-1979 HIV screening HIV Test [facility] Start: 1976 Depression Screening Depression Scre ening [facility] Start: 01-25-1974 Glaucoma screening Diabetes: R etinopathy Screening [facility] Start: 01-25-1970 Pneumococcal vaccination Pneumococcal Vaccine(s) (1 of 2 - PCV) [facility] Start: 01-25-1970 [facility] Start: 1964 Glaucoma screening Diabetic Op hthalmology Exam [facility] Start: 1964 Medicare Annual Wellness (AWV) Medicare Annual Wellness (AWV) [facility] Start: 1964 Screening for malign ant neoplasm of colon [facility] Assay of magnesium [facility] Assay of phosphorus inorganic [facility] Bacteria identified in Unspecified specimen by Aerobe culture [facility] Bacteria identified in Unspecified specimen by Anaerobe culture [facility] Basic metabolic 2000 panel - Serum or Plasma [facility] Work Phone: CBC panel - Blood by Automated count [facility] Work Phone: Optx fem shft fx w/i nsj imed implt w/wo screw REDUCTION, OPEN, FEMUR, INTRAMEDULLARY GENTRY 4/D - Within 12 Hours Hemorrhagic shock (HCC) [facility] Patient Education Fistulogram [facility] Work Phone: Patient referral [facility] Work Phone: Perq skeletal fixati on pst pelvic bone fx&/dis [facility] End: 05-01-2024 RF Guidance of Unspecified body region [facility] Work Phone: Transfusion of packe d red blood cells [facility] Work Phone: Immunizations Immunization Date Immunization Notes Care Provider Demetri ny 05-08-2024 Albumin Mh 1 [facility] 05-08-2024 Tae Thompson MD Work Phone: [facility] 04-30-2024 tetanus toxoid, reduced diphtheria toxoid, and acellular pertussis vaccine, adsorbed ENRIQUE Ernandez Work Phone: [facility] 10-19-2020 COVID-19 mRNA-1273 (Maya) MD Rc Crocker Work Phone: [facility] 09-21-2020 COVID-19 mRNA-1273 (Maya) MD Rc Crocker Work Phone: [facility] Payers Date Payer Category Payer Medicaid [id number] 2020 Medicare [id number] 2020 Medicare FFS MEDICARE [id number] 1964 Unknown [id number] .1.249630.3.579.2.59 1964 Unknown [id number] .1.529429.3.579.2.59 1964 Unknown [id number] 08.30.830.1.680162.3.579.2.59 1964 Unknown [id number] 08.30.830.1.337618.3.579.259 1964 Unknown [id number] .1.288392.3.579.2.73 1964 Unknown [id number] 08.30.830.1.759152.3.579.2.73 1964 Unknown [id number] 2.16.840.1.561798.3.579.2 1964 Unknown [id number] 2..840.1.633405.3.579. 1964 Unknown [id number] 2.16.840.1.763996.3.579.2 1964 Unknown [id number] 2..840.1.650201.3.579. 1964 Unknown [id number] 2..840.1.044464.3.579. 1964 Unknown [id number] 2.840.1.601239.3.579. 1964 Unknown [id number] 2.840.1.115126.3.579. 1964 Unknown [id number] 2.840.1.425865.3.579. 1964 Unknown [id number] 2.840.1.355066.3.579. 1964 Unknown [id number] 2.840.1.751115.3.579. 1964 Unknown [id number] 2.840.1.508489.3.579. 1964 Unknown [id number] 2.840.1.207034.3.579. 1964 Unknown [id number] 2..840.1.587009.3.579.2 1964 Unknown [id number] 2.840.1.951957.3.579. 1964 Unknown [id number] 2..840.1.905739.3.579. 1964 Unknown [id number] 2.840.1.301675.3.579.2 1964 Unknown [id number] 2.16.840.1.919433.3.579.2.1285 1964 Unknown [id number] 2.16.840.1.944760.3.579.2.1285 1964 Unknown [id number] 2.16.840.1.841380.3.579.2.1285 1964 Unknown [id number] 2.16.840.1.940194.3.579.2.1285 1964 Unknown [id number] 2.16.840.1.886805.3.579.2.1285 1964 Unknown [id number] 2.16840.1.660482.3.579.2.1285 1964 Unknown [id number] 2.16840.1.908021.3.579.2.1285 1964 Unknown [id number] 2.16840.1.555445.3.579.2.1285 1964 Unknown [id number] 2.16840.1.918108.3.579.2.1258 1964 Unknown [id number] 2.840.1.815175.3.579.2.9 1964 Unknown [id number] 2.840.1.002771.3.579.2.1258 1964 Unknown [id number] 2.840.1.090848.3.579.2.1259 1959 Medicaid [id number] 2.0.1.129897. 1960 Medicare [id number] 2.840.1.148741. 1959 Self-pay [id number] Unknown Unknown [id number] Unknown [id number] 2.16840.1.442035.3.579.2.531 Unknown [id number] 2..840.1.574454.3.579.2.531 Unknown [id number] 2.16.840.1.117896.3.579.2.531 Unknown [id number] 2.16.840.1.562141.3.579.2.531 Social History Date Type Detail Facility Tobacco smoking stat us INIS Unknown if ever smoked [facility] Start: 1965 Sex Assigned At Male [facility] Start: 04-01-2024 End: 12-08-2024 [facility]igned At [facility] Start: 02-22-2022 End: 01-24-2023 Tobacco smoking status NHIS Never smoked tobacco (finding) [facility] Start: 08-22-2022 End: 01-24-2023 Tobacco use and exposure Smokeless tobacco non-user [facility] Start: 04-07-2024 End: 12-08-2024 Alcoholic beverage intake Ex-drinker (finding) [facility] Start: 04-01-2024 End: 12-08-2024 History of Social function [facility] How often do you nee d to have someone help you when you read instructions, pamphlets, or other written material from your doctor or pharmacy [SILS] Never [facility] Do you belong to any clubs or organizations such as anglican groups, unions, fraternal or athletic groups, or school groups? Yes [facility] Are you now , , , , never or living with a partner? Never [facility] How often to you hav e a drink containing alcohol? Monthly or less [facility] How many standard dr inks containing alcohol do you have on a typical day? 1 or 2 [facility] How often do you hav e 6 or more drinks on 1 occasion? Never [facility] How hard is it for y ou to pay for the very basics like food, housing, medical care, and heating Not very hard [facility] Do you feel stress - tense, restless, nervous, or anxious, or unable to sleep at night because your mind is troubled all the time - these days [OSQ] To some extent [facility] (I/We) worried jonas er (my/our) food would run out before (I/we) got money to buy more. Never true [facility] In the past 12 month s, was there a time when you were not able to pay the mortgage or rent on time? No [facility] Start: 07-26-2023 Alcohol Comment monthly or less. Caffeine intake: 1-2 cups per day [facility] Start: 1965 Sex assigned at Not on file [facility] Start: 02-17-2015 End: 04-30-2024 [facility] Start: 05-15-2017 Alcohol Comment rarely [employer] Medical Equipment Procedure Code Equipment Code Equipment Origin al Text Equipment Identifier Dates Fluoroscopic guidance for insertion of tunnelled dialysis catheter [id number] FDA Start: 09-14-2019 Fluoroscopic guidance for insertion of tunnelled dialysis catheter [id number] FDA Start: 09-14-2019 Fluoroscopic guidance for insertion of tunnelled dialysis catheter [id number] FDA Start: 09-14-2019 Fluoroscopic guidance for insertion of tunnelled dialysis catheter [id number] FDA Start: 09-14-2019 Fluoroscopic guidance for insertion of tunnelled dialysis catheter [id number] FDA Start: 09-14-2019 Creation or revision of arteriovenous fistula Arteriovenous shunt [id number] FDA Start: 01-07-2020 Creation or revision of arteriovenous fistula Synthetic vascular graft [id number] FDA Start: 06-04-2023 [id number] Start: 05-19-2018 End: 12-08-2024 [id number] Start: 05-02-2024 [id number] Start: 05-02-2024 [id number] Start: 05-02-2024 [id number] Start: 05-02-2024 [id number] Start: 05-02-2024 [id number] Start: 05-02-2024 [id number] Start: 05-02-2024 [id number] Start: 05-02-2024 [id number] Start: 05-02-2024 [id number] Start: 05-02-2024 [id number] Start: 05-02-2024 [Order 1 Start] Name: dextrose 10 % iv infusion Signed Summary: 125 mL, Intravenous, at 999 mL/hr, PRN, Starting on Sat04/30/24 at 2029, Until Discontinued, For blood glucose less than 70 mg/dL, with IV access and with loss of consciousness or unable to swallow or NPO [Order 1 End] [Order 2 Start] Name: glucagon (GLUCAGEN) 1 MG injection Signed Summary: 1 mg, Subcutaneous, PRN, Starting on Sat04/30/24 at 2030, Until Discontinued, For blood glucose less than 70 mg/dL and with no IV access with loss of consciousness or alert and unable to swallow. [Order 2 End] [Order 3 Start] Name: dextrose (GLUTOSE) 40 % oral gel Signed Summary: 15 g of glucose, Buccal, PRN, Starting on Sat04/30/24 at 2029, Until Discontinued, blood glucose between 50 - 69 mg/dL, and with no IV access, alert and able to swallow. [Order 3 End] [Order 4 Start] Name: dextrose (GLUTOSE) 40 % oral gel Signed Summary: 30 g of glucose, Buccal, PRN, Starting on Sat04/30/24 at 2029, Until Discontinued, blood glucose of 49mg/dL or less, and with no IV access, alert and able to swallow. [Order 4 End] Start: 04-30-2024 Goals Date Patient Goal Desired Activity /State Personal health goal Personal health goal Comment on above: Formatting of this n ote might be different from the original. Evaluation of progress towards goal: patient stated would like to go home with home care. Personal health goal Comment on above: Formatting of this n ote might be different from the original. Evaluation of progress towards goal: Return to [facility] Mental Status Date Assessment Result Facility [facility] Clinical Notes 01-05-2022 to 12-30-2024 Rc Crocker MD - 12/08/2024 2:24 PM Cesia Crocker MD - 12/08/2024 2:24 PM Cesia Crocker MD - 12/08/2024 2:23 PM Cesia Crocker MD - 12/08/2024 2:23 PM EDTPatient InstructionsAttachments Note Date & Type Note Facility 12-30-2024 Note Yes, please. Thanks [facility] 12-16-2024 Note PFTs are abnormal. P lease refer to pulmonary and I had sent a message to Rosmery as well about getting him in to see Dr. Jean Baptiste to get off of amio due to thyroid issues. Now he has 2 indications to get off of amio, abnormal PFTs and for hypothyroidism. Please get him in with Dr. Jean Baptiste as soon as able. Thanks! [facility] 12-08-2024 History of Present illness Narrative Associated Problem(s): Type 2 diabetes mellitus with hyperglycemia, with long-term current use of insulin (CMS/HCC) BS controlled and due for A1C. Stick to ADA diet and limit carbs. Associated Problem(s): Paroxysmal atrial fibrillation (CMS/HCC) In NSR and monitor. Associated Problem(s): Hypertensive kidney disease (CMS/HCC) BP controlled and continue medication. Follow with nephro. Associated Problem(s): Diabetic peripheral neuropathy (CMS/HCC) Worsening symptoms and increase neurontin. Associated Problem(s): Chronic HFrEF (heart failure with reduced ejection fraction) (CMS/HCC) Edema stable and follow with cardiology. Associated Problem(s): Adult hypothyroidism (CMS/HCC) Resume synthroid. Images from the original note were not included. Subjective Patient ID: Amado Tran is a 59 y.o. male who presents for Follow-up (3M/Hand numbness/ wart/Belly button bloody/ smelly) and Thyroid Problem. Follow up DM, HTN, neuropathy, derpession, CHF, and afib. BS stable around 200. Tries to eat well and stick to ADA diet. Denies signs of elevated BS such as polyuria, polyphagia or polydipsia. Checking BP PRN and typically controlled. BP normal today. Taking medication daily and tolerating without side effects. Neuropathy worse. Increased pain and burning in feet and hands. Frequent numbness and hard to edge trimmer. Taking neurontin but not helping. Depression stable. Not down or sad and feels happier. Edema controlled with medication. Mild swelling at end of day and if on feet a lot. Edema improved in am and with elevation. Afib stable. No palpitations or heart racing. Not lightheaded or dizzy. Recent labs showed elevated TSH. Not on synthroid for months. Review of Systems Constitutional: Negative for fatigue. Respiratory: Negative for cough, shortness of breath and wheezing. Cardiovascular: Negative for chest pain and palpitations. Gastrointestinal: Negative for abdominal pain, diarrhea, nausea and vomiting. Genitourinary: Negative for dysuria. Objective Physical Exam Constitutional: General: He is not in acute distress. Appearance: Normal appearance. HENT: Head: Normocephalic. Right Ear: Tympanic membrane and ear canal normal. Left Ear: Tympanic membrane and ear canal normal. Eyes: Extraocular Movements: Extraocular movements intact. Pupils: Pupils are equal, round, and reactive to light. Cardiovascular: Rate and Rhythm: Normal rate and regular rhythm. Heart sounds: No murmur heard. No friction rub. No gallop. Pulmonary: Breath sounds: Normal breath sounds. No wheezing, rhonchi or rales. Abdominal: General: Bowel sounds are normal. There is no distension. Palpations: Abdomen is soft. Tenderness: There is no abdominal tenderness. There is no guarding or rebound. Musculoskeletal: Left lower leg: No edema. Neurological: Mental Status: He is alert. Assessment/Plan Problem List Items Addressed This Visit Type 2 diabetes mellitus with hyperglycemia, with long-term current use of insulin (CMS/HCC) - Primary BS controlled and due for A1C. Stick to ADA diet and limit carbs. Relevant Medications glucose blood test strip Diabetic peripheral neuropathy (CMS/HCC) Worsening symptoms and increase neurontin. Relevant Medications gabapentin (Neurontin) 300 MG capsule Hypertensive kidney disease (CMS/HCC) BP controlled and continue medication. Follow with nephro. Chronic HFrEF (heart failure with reduced ejection fraction) (CMS/HCC) Edema stable and follow with cardiology. Paroxysmal atrial fibrillation (CMS/HCC) In NSR and monitor. Adult hypothyroidism (CMS/HCC) Resume synthroid. Relevant Medications levothyroxine (Synthroid, Levoxyl) 50 MCG tablet Other Visit Diagnoses Oophoritis Relevant Medications clotrimazole (Lotrimin) 1 % cream documented in this encounter [facility] 11-26-2024 Note Patient is here toda y for a 6 month follow up. Patient states he isn't feeling to good today. Patient states he is still very short of breath with activity. Review of Systems Cardiovascular: Positive for dyspnea on exertion. [facility] 11-26-2024 Note Cardiovascular Medic [facility] SUBJECTIVE Chief Complaint Patient presents with [...] unspecified Iron deficiency anemia Joint pain Other senior living (current) drug therapy Secondary hyperparathyroidism Acute blood [...] B complex-vitamin C-folic acid (Dialyvite) 100-1 mg (more content not included)... [facility] 11-19-2024 Note Division of Infectio us Diseases - Outpatient Clinic Note Patient name: Juanpablo Tran Patient Today's Date and Time: 11/19/2024, 10:28 AM Primary Care Physician: Rc Crocker MD Reason for consultation / Chief complaint: Suppression therapy History of Present Illness: This is a 59-year-old male patient who was initially admitted on May 20, 2024. The patient had recently suffered a fall from 6 feet and had multiple traumatic injuries. He had been hospitalized at [facility] from April 30 through May 15, 2024. [...] been taken off of amoxicillin by his long-term facility. He was restarted on the suppression, [...] 6-8 feet. He is receiving dialysis at [facility]. He has [facility]. He has been working with physical therapy in home, as well. Past Medical History: Past Medical History: Diagnosis Date Atrial fibrillation ([facility]) CHF (congestive heart failure) ([facility]/HCC) Chronic kidney disease Coronary artery disease Diabetes mellitus ([facility]) Hyperlipidemia Hypertension Primary cardiomyopathy (CMS/HCC) Sleep apnea [...] Resource Strain: Low Risk (04/01/2024) Received from [facility] [employer], [facility] Overall Financial Resource Strain (CARDIA) Difficulty of Paying Living Expenses: Not very hard Food Insecurity: No Food Insecurity (09/01/2024) Received from [employer] Within the past 12 months we worried whether our food would run out before we got money to buy more.: Never True Within the past 12 months the food we bought just didn't last and we didn't have money to get more.: Never True Transportation Needs: No Transportation Needs (05/20/2024) Received from [employer] PRAPARE - Transportation Lack of Transportation ( (more content not included)... [facility] 09-08-2024 History of Present illness Narrative Associated Problem(s): Type 2 diabetes mellitus with hyperglycemia, with long-term current use of insulin (CMS/HCC) BS controlled and last A1C 5.6. Stick to ADA diet and limit carbs. Associated Problem(s): Pressure injury of left buttock, unstageable (CMS/HCC) Home health to start wound care. Associated Problem(s): Hypertensive kidney disease (CMS/HCC) BP controlled and continue medication. Follow with nephro. Associated Problem(s): End-stage renal disease (CMS/HCC) Continue dialysis Associated Problem(s): Diabetic peripheral neuropathy ([facility]) Symptoms stable and continue medication. Associated Problem(s): Class 3 severe obesity due to excess calories with serious comorbidity and body mass index (BMI) of 40.0 to 44.9 in adult ([facility]) Weight loss indicated. Associated Problem(s): Chronic HFrEF (heart failure with reduced ejection fraction) ([facility]) Edema stable and follow with cardiology. Images from the original note were not included. Subjective Patient ID: Amado Tran is a 59 y.o. male who presents for Follow-up (F/[facility]). Follow up from hospital and SNF. 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 Walked around and fell around 6 feet into pit below. Suffered multiple fractures including right femur and ribs. Admitted 04/30-05/15 with hemorrhagic shock and had multiple ortho surgeries. To SNF 05/15 and then developed ulcer on left gluteal region. Admitted to hospital 05/20-05/28 with VRE and seen by ID. Treated with antibiotics and currently on amoxicillin for suppression. SNF 05/28-09/01 then ran out of days. Didn't feel ready to go home but couldn't afford to stay. Severe weakness since home. Decreased appetite and not eating much. In dialysis 3 days a week. Decrease insulin and BS 125. BP controlled and neuropathy stable. Review of Systems Constitutional: Negative for fatigue. Respiratory: Negative for cough, shortness of breath and wheezing. Cardiovascular: Negative for chest pain and palpitations. Gastrointestinal: Negative for abdominal pain, diarrhea, nausea and vomiting. Genitourinary: Negative for dysuria. Objective Physical Exam Constitutional: General: He is not in acute distress. Appearance: Normal appearance. HENT: Head: Normocephalic. Right Ear: Tympanic membrane and ear canal normal. Left Ear: Tympanic membrane and ear canal normal. Eyes: Extraocular Movements: Extraocular movements intact. Pupils: Pupils are equal, round, and reactive to light. Cardiovascular: Rate and Rhythm: Normal rate and regular rhythm. Heart sounds: No murmur heard. No friction rub. No gallop. Pulmonary: Breath sounds: Normal breath sounds. No wheezing, rhonchi or rales. Abdominal: General: Bowel sounds are normal. There is no distension. Palpations: Abdomen is soft. Tenderness: There is no abdominal tenderness. There is no guarding or rebound. Musculoskeletal: Left lower leg: No edema. Neurological: Mental Status: He is alert. Assessment/Plan Problem List Items Addressed This Visit Type 2 diabetes mellitus with hyperglycemia, with long-term current use of insulin ([facility]) - Primary BS controlled and last A1C 5.6. Stick to ADA diet and limit carbs. Relevant Medications insulin NPH-insulin regular (NovoLIN) (70-30) 100 UNIT/ML injection End-stage renal disease ([facility]) Continue dialysis Diabetic peripheral neuropathy ([facility]) Symptoms stable and continue medication. Hypertensive kidney disease ([facility]) BP controlled and continue medication. Follow with nephro. Class 3 severe obesity due to excess calories with serious comorbidity and body mass index (BMI) of 40.0 to 44.9 in adult ([facility]) Weight loss indicated. Chronic HFrEF (heart failure with reduced ejection fraction) ([facility]) Edema stable and follow with cardiology. Pressure injury of left buttock, unstageable ([facility]) Home health to start wound care. documented in this encounter [facility] 08-18-2024 Note Division of Infectio us Diseases - Outpatient Clinic Note Patient name: Juanpablo Tran Patient Today's Date and Time: 08/18/2024, 10:17 AM Primary Care Physician: Rc Crocker MD Reason for consultation / Chief complaint: Suppression therapy History of Present Illness: This is a 59-year-old male patient who was initially admitted on May 20, 2024. The patient had recently suffered a fall from 6 feet and had multiple traumatic injuries. He had been hospitalized at [facility] from April 30 through May 15, 2024. [...] of symptoms.He is present today from his long-term facility. He reports that since his last [...] continues to undergo hemodialysis Saturday, Saturday, and Krishna. He reports the wounds on his lower [...] Resource Strain: Low Risk (04/01/2024) Received from [facility] Overall Financial Resource Strain (CARDIA) Difficulty of Paying Living Expenses: Not very hard Food Insecurity: No Food Insecurity (06/23/2024) [facility] [employer] Hunger Screening Within the past 12 months we worried whether our food would run out before we got money to buy more.: Never True Within the past 12 months the food we bought just didn't last and we didn't have money to get more.: Never True Transportation Needs: No Transportation Needs (05/20/2024) Received from [employer] [facility] [employer] PRAPARE - Transportation Lack of Transportation (Medical): No Lack of Transportation (Non-Medical): No Physical Activity: Insufficiently Active (04/01/2024) Received from [facility]orph[facility] Exercise Vital Sign Days (more content not included)... [facility] 06-22-2024 History of Present illness Narrative Orthopedic Clinic Follow Up Note History: This [...] Knee range of motion: Active extension to 0 and flexion to 90 Imaging: An AP and orthogonal view of [...] x-rays. Kayode Biggs MD Orthopaedic Trauma Surgeon [facility] documented in this encounter [facility] 06-22-2024 Instructions Kayode Biggs MD - 06/22/2024 4:23 PM EST 1. Weightbearing as tolerated left upper extremity and bilateral lower extremities 2. Work with physical therapy daily 3. Return to clinic in 6 weeks documented in this encounter [facility] 06-21-2024 History of Present illness Narrative Images from the original note were not included. Progress Note: Postoperative Clinic Visit after Trauma [...] discharge: - Follow up with Cardiology at [facility] for PPM extraction. - Follow up with [...] unless new issues arise Yoselyn Haines MD Identification was verified by patient verbalizing his name and date of . documented in this encounter [facility] 06-19-2024 Telephone encounter Note Pt is @ a SNF in [facility], has a f/u w/ Dr Biggs next week, Saturday06/22/24 but also needs f/u for spine fx. Can you put xray orders in for what you need to check on fx for him to get when he is here, then possibly schedule f/u w/you at a later date? [facility] 06-19-2024 Miscellaneous Notes Pt is @ a SNF in [facility], has a f/u w/ Dr Biggs next week, Saturday06/22/24 but also needs f/u for spine fx. Can you put xray orders in for what you need to check on fx for him to get when he is here, then possibly schedule f/u w/you at a later date? documented in this encounter [facility] 06-16-2024 Note Division of Infectio us Diseases - Outpatient Clinic Note Patient name: Juanpablo Tran Patient Today's Date and Time: 06/16/2024, 12:39 PM Primary Care Physician: Rc Crocker MD Reason for consultation / Chief complaint: Bloodstream infection History of Present Illness: This is a 59-year-old male patient who was initially admitted on May 20, 2024. The patient had recently suffered a fall from 6 feet and had multiple traumatic injuries. He had been hospitalized at [facility] from April 30 through May 15, 2024. [...] diarrhea. He is present today from his long-term facility.He reports the wound on his right [...] Resource Strain: Low Risk (04/01/2024) Received from [facility] [employer], [facility] Overall Financial Resource Strain (CARDIA) Difficulty of Paying Living Expenses: Not very hard Food Insecurity: No Food Insecurity (05/20/2024) [facility] Within the past 12 months we worried whether our food would run out before we got money to buy more.: Never True Within the past 12 months the food we bought just didn't last and we didn't have money to get more.: Never True Transportation Needs: No Transportation Needs (05/20/2024) Received from [employer] PRAPARE - Transportation Lack of Transportation (Medical): No Lack of Transportation (Non-Medical): No Physical Activity: Insufficiently Active (04/01/2024) Received from [facility] [employer], [facility] Exercise Vital Sign Days of Exercise per Week: 1 day Minutes of Exercise per Session: 10 min Stress: Stress Concern Present (04/01/2024) Received from [facility] [employer] - Occupational Stress Questionnaire Feeling of Stress : To some extent Socia (more content not included)... [facility] 06-05-2024 Miscellaneous Notes Joy called Ep scheduling from [facility] to discuss POC for pt device. Plan per JZL was for extraction. She requested a call back to discuss [phone] - ask for nurse [phone] Called and LM to Joy - await return call Pt had recent open femur reduction, HD pt MWF, on IV ATBs, multiple open wounds. Received call from Yvette at [place] to discuss scheduling extraction. Requested pt update on his current condition - she will need to discuss with wound care nurse as she is unsure if pt is still undergoing wound treatment. Pt currently has PICC for every other day IV Dapto and ID consulted. Await return call for update Received return call from [facility] - wound care confirmed no open wounds currently, all have healed with exception of recurring left buttock skin fold abscess with slight drainage. Pt will complete IV dapto tomorrow. Advised will update JZL and return call with possible dates. JZL: I received an update on pt current condition from [facility] for possible extraction. Pt open wounds are healed with exception of known recurring left buttock abscess. Currently has some drainage Pt will complete IV dapto tomorrow, currently has PICC but likely DC PICC once IV ATB completed Pt is HD pt, on MWF with AV fistula functioning Please advise on extraction and orders. Pt will not be able to be a first case pt d/t transportation from facility. I spoke with DC surgery scheduling - he will review the case to try to coordinate a date - likely not until mid to late Jun / early Jul THANK YOU! documented in this encounter [facility] 06-05-2024 Telephone encounter Note Joy called Ep scheduling from [facility] to discuss POC for pt device. Plan per JZL was for extraction. She requested a call back to discuss [phone] - ask for nurse [phone] Called and LM to Joy - await return call Pt had recent open femur reduction, HD pt MWF, on IV ATBs, multiple open wounds. [facility] 06-05-2024 Telephone encounter Note Received call from Yvette at [place] to discuss scheduling extraction. Requested pt update on his current condition - she will need to discuss with wound care nurse as she is unsure if pt is still undergoing wound treatment. Pt currently has PICC for every other day IV Dapto and ID consulted. Await return call for update [facility] 06-05-2024 Telephone encounter Note Received return call from [facility] wound care confirmed no open wounds currently, all have healed with exception of recurring left buttock skin fold abscess with slight drainage. Pt will complete IV dapto tomorrow. Advised will update JZL and return call with possible dates. [facility] 06-05-2024 Telephone encounter Note JZL: I received an update on pt current condition from [facility] for possible extraction. Pt open wounds are healed with exception of known recurring left buttock abscess. Currently has some drainage Pt will complete IV dapto tomorrow, currently has PICC but likely DC PICC once IV ATB completed Pt is HD pt, on MWF with AV fistula functioning Please advise on extraction and orders. Pt will not be able to be a first case pt d/t transportation from facility. I spoke with DC surgery scheduling - he will review the case to try to coordinate a date - likely not until mid to late Jun / early Jul THANK YOU! 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 Contract: [address] De Guzman and connected call documented in this encounter [facility] 05-23-2024 Telephone encounter Note Contract: oc 1 Flower Rm 702 New Consult infected hardware in right extremity [facility] 05-23-2024 Telephone encounter Note Contract: [address] De Guzman and connected [facility]15[facility] History of Present illness Narrative This RN attempted to call [facility] @ [phone] and [phone]. To provide report on pt. Both attempts were unsuccessful. This RN left voice mail with unit phone number for a call back. 05/15/24 1722 Patient Location Patient Location 8 Graft/Fistula Dialysis [...] Quality Pitting 1+ Vital Signs Temperature 97.4 F (36.3 C) Temperature Source Temporal Heart Rate 64 Respiratory [...] Note (Completed by Sending Unit) Transferring to: [address] SBAR Report Given to: post dialysis report to nita camarena rn via secure chat Sending RN Name, Unit & Contact # cgreenrn promotions executive Cosignature RN Cosignature cgreenrn Isolation & Precautions $ Clinical Precautions Fall Precautions Activity & Positioning Turn & Reposition Self 05/15/24 1400 Victim Victim N Patient Referred By Inpatient List Educated on Trauma Resources and Support Y Coaching Contact Y Direct Contact Made Y [facility] 05/15/2024 Services Provide For: Patient/Family Referred By: IPTL Services Provided by: Bill Sorter Reason for Services: Follow-up Immediate Needs: Patient The patient was on the phone when Protective Clothing Issuer arrived. The patient reported no needed services at this moment. The Protective Clothing Issuer will follow-up with patient next business day for support. ? Magn[facility] Randall Main Line: [phone] Images from the original note were not included. Hemodialysis Procedure Note for ESRD (N18.6) Access: [...] Daily midodrine 10 mg Q M, W & F insulin glargine 8 Units At Bedtime metoclopramide 5 mg Every 8 hours erythromycin base 500 mg 2x Daily levothyroxine 50 mcg Before Breakfast sertraline 125 mg Daily folic acid 1 mg Daily [MAR Hold] vitamin D2 ergocalciferol 50,000 Units Q7 Days cholecalciferol 1,000 Units Daily Normal consistency 2x Daily with Meals Normal consistency Daily with breakfast Apixaban 5 mg 2x Daily Tory-Riri RX 1 Tablet Daily insulin regular 4-14 Units 4x Daily AC & HS methocarbamol 750 mg Every 6 hours epoetin antione-epbx 10,000 Units Q M, W & F acetaminophen 1,000 mg q6h nystatin 2x [...] SpO2 O2 Device 05/15/24 0542 105/40 98.4 F (36.9 C) Axillary 59 20 93 % BiPAP 05/15/24 0340 -- -- -- -- -- -- BiPAP 05/15/24 0338 -- -- -- -- 26 -- BiPAP 05/15/24 0008 -- -- -- -- 16 -- BiPAP 05/14/242204 -- -- -- -- -- -- Room air 05/14/24 2148 90/74 98.2 F (36.8 C) Oral 67 18 96 % Room air 05/14/242028 -- -- -- 75 16 -- -- 05/14/242019 -- -- -- 70 16 -- Room air 05/14/24 1618 -- -- -- 68 16 -- Room air 05/14/24 1610 -- -- -- 67 17 -- Room air 05/14/24 1457 108/53 99.3 F (37.4 C) Oral 66 18 94 % Room air 05/14/24 1050 90/70 -- -- -- -- -- -- 05/14/24 1047 90/44 98.4 F (36.9 C) Oral 66 18 93 % Room air [...] MLF as an inter facility transfer from [facility] s/p Fall. #ESRD MWF @ [facility] Access-RAVF -HD today per submitted order, continue [...] Strict I/O's, daily weights, low k diet JOE Curtis Division of Nephrology & Hypertension Pager: [phone] Images from the original note were not included. GENERAL INFORMATION TRAUMA FLOOR - STAFF NOTE Patient Name: Amado Tran Admission Date: 04/30/2024 Patient seen and examined on 05/15/24 INTERVAL HISTORY/EVENTS Background: Amado Tran is a 59 year old male with a PMHx of hyperparathyroidism, pacemaker, ARASH, CAROL, HLD, GERD, depression, ESRD (HD MWF, RUE AV fistula), CKD, HTN, T2DM, systolic HF, and atrial fibrillation on Eliquis. Patient presented to [facility] from OSH on 04/30 s/p mechanical fall 6 feet into floor opening. (-) Head strike, (-)LOC. (+)Eliquis. OSH imaging significant for grade 1 splenic injury, multiple bilateral rib fractures, and multiple pelvic fractures. Administered K-centra, 2uPRBC, calcium gluconate prior to transfer to [facility]. At [facility], patient with labile blood pressures and received [...] Grade 1 splenic injury s/p fall at [employer] oil change location. 05/01: Titrated on levophed. [...] to transfer to floor. 05/12: transferred to [facility], BP stable 05/13: H/H slight downtrend, [...] mL Drain: NGT: Last BM documented 05/11 --- PHYSICAL EXAM --- Vital Signs: Vital sign ranges over the past 24 hours (retrieved 05/15/2024 at 6:54 AM): Tmax (24 hours): 99.3 F (37.4 C) Pulse Av Min: 59 Max: 82 Systolic (24hrs), Av , Min:90 , Max:134 Diastolic (24hrs), Av, Min:40, Max:75 MAP (mmHg) Av.5 mmHg Min: 58 mmHg Max: 81 mmHg Resp Av.3 Min: 16 Max: 26 SpO2 Av.4 % Min: 93 % Max: 98 % 24 Hour Input/Output Intake/Output Summary (Last 24 hours) at 05/15/2024 0638 Last data filed at 05/15/2024 0340 Gross per 24 hour Intake 780 ml Output 300 ml Net 480 ml --- PHYSICAL EXAM --- GENERAL: No acute distress, resting comfortably upon [...] Numerous right rib fractures. 4. Cardiomegaly. ASSESSMENT & PLAN - Diagnoses: S/p fall down ~6ft hole Right [...] Patient should follow with the Cardiology at [facility] for PPM extraction - Continue home apixaban [...] Has home CPAP prescribed, noncompliant - Respiratory Warp Changer Protocol - Continue Mucinex 600 mg BID [...] least 3-4 days; will need to hold Tory-riri and MVI prior to labs - Continue [...] - Recommend further therapy services in a Halfway Setting once medically cleared - Will continue [...] with: - Follow up with Cardiology at [facility] for PPM extraction. - Follow up with [...] provider regarding recent admission and incidental findings JOE Stephens Trauma and Acute Care Surgery Pager: [phone] This patient's plan of care was discussed with Trauma Floor attending, Dr. Giron. Case Management CM made aware that the patient is not medically cleared for discharge. Patient will be discharging to SNF ([facility]) when ready. SNF updated on anticipated medical readiness date and notified that the patient will no longer need a Corpak. CM will remain available to assist with discharge planning and needs as warranted. Marizol JENNINGSN, RN Inpatient Data Management Associate Cell [address] [place] [address] M-F [phone] Images from the original note were not included. Nephrology Follow-up Note Amado Tran 59 year old 310.1875 lbs MRN/Room: [id number]/[place] [id number]/2 Subjective: Seen and evaluated at bedside. Tolerated HD yesterday, but did have prolonged bleeding after treatment, 500 ml removed. Objective: General appearance: NAD Eyes: Non-icteric Skin: No apparent rash Abdomen: Soft, nt/nd Extremities: Mild edema BLE Neuro: A&Ox3 Access: RAVF Meds: melatonin 3 mg At Bedtime senna 8.6 mg At Bedtime aspirin EC 81 mg Daily polyethylene glycol 17 g Daily midodrine 10 mg Q M, W & F insulin glargine 8 Units At Bedtime metoclopramide 5 mg Every 8 hours erythromycin base 500 mg 2x Daily levothyroxine 50 mcg Before Breakfast sertraline 125 mg Daily folic acid 1 mg Daily [SEP Hold] vitamin D2 ergocalciferol 50,000 Units Q7 Days cholecalciferol 1,000 Units Daily Normal consistency 2x Daily with Meals Normal consistency Daily with breakfast Apixaban 5 mg 2x Daily Tory-Riri RX 1 Tablet Daily insulin regular 4-14 Units 4x Daily AC & HS methocarbamol 750 mg Every 6 hours epoetin antione-epbx 10,000 Units Q M, W & F acetaminophen 1,000 mg q6h nystatin 2x [...] at 10:39 AM): Tmax (24 hours): 99.5 F (37.5 C) Pulse Av.6 Min: 60 Max: 72 Systolic [...] 94 % -- 05/14/24 0544 90/42 98.1 F (36.7 C) Oral 60 16 94 % Room air 05/14/24 0133 111/34 98.2 F (36.8 C) Oral 64 16 96 % Room air 05/14/24 0012 -- -- -- -- -- -- BiPAP 05/13/24 2240 -- -- -- -- -- -- BiPAP 05/13/24 2230 108/43 99.5 F (37.5 C) Oral 71 18 92 % BiPAP 05/13/242120 -- -- -- -- -- -- Room air 05/13/242110 -- -- -- 70 18 -- Room air 05/13/24 1807 -- -- -- -- -- -- Room air 05/13/24 1730 135/48 98.6 F (37 C) Oral 67 18 -- -- 05/13/24 1700 121/48 98.4 F (36.9 C) Oral 72 18 92 % Room air 05/13/24 1245 91/53 98.6 F (37 C) Oral 69 18 -- -- 05/13/24 1220 [...] MLF as an inter facility transfer from [facility] s/p Fall. #ESRD MWF @ [facility] Access-RAVF -HD tomorrow per submitted order, continue [...] Strict I/O's, daily weights, low k diet JOE Curtis Division of Nephrology & Hypertension Pager :[phone] Images from the original note were not included. GENERAL INFORMATION TRAUMA FLOOR - STAFF NOTE Patient Name: Amado Tran Admission Date: 04/30/2024 Patient seen and examined on 05/14/24 INTERVAL HISTORY/EVENTS Background: Amado Tran is a 59 year old male with a PMHx of Hyperparathyroidism, Pacemaker, ARASH, CAROL, HLD, GERD, Depression, ESRD (HD MWF, RUE AV Fistula), CKD, HTN, T2DM, Systolic HF, and atrial fibrillation on Eliquis. Patient presented to [facility] from OSH on 04/30 s/p mechanical fall 6ft into floor opening. (-)head strike. (-)LOC. (+)Eliquis. OSH imaging significant for grade 1 splenic injury, multiple bilateral rib fractures, and multiple pelvic fractures. Administered K-centra, 2uPRBC, calcium gluconate prior to transfer to [facility]. At [facility], patient with labile blood pressures and received [...] to transfer to floor. 05/12: transferred to [facility], BP stable 05/13: H/H slight downtrend, [...] with ESRD) BM: x0 (last BM 05/11) --- PHYSICAL EXAM --- Vital Signs: Vital sign ranges over the past 24 hours (retrieved 05/14/2024 at 8:43 AM): Tmax (24 hours): 99.5 F (37.5 C) Pulse Av.5 Min: 60 Max: 72 Systolic (24hrs), Av , Min:90 , Max:135 Diastolic (24hrs), Av, Min:34, Max:58 MAP (mmHg) Av mmHg Min: 52 mmHg Max: 70 mmHg Resp Av.3 Min: 16 Max: 18 SpO2 Av.9 % Min: 92 % Max: 96 % 24 Hour Input/Output Intake/Output Summary (Last 24 hours) at 05/14/2024 0835 Last data filed at 05/14/2024 0829 Gross per 24 hour Intake 1375 ml Output 500 ml Net 875 ml --- PHYSICAL EXAM --- General: Laying down in hospital bed. NAD. [...] up imaging reviewed. No new imaging. ASSESSMENT & PLAN - Diagnoses: - s/p fall down ~6ft hole [...] Patient should follow with the cardiology at [facility] for the PPM extraction. - Continue home [...] before dialysis MWF - BMP/Mg/Phos daily - I&Os - Continue home Renvela - free water [...] least 3-4 days. Will need to hold Tory-riri and MVI prior to labs - Lantus [...] - Recommend further therapy services in a Halfway Setting once medically cleared - Will continue [...] - Follow up with the cardiology at [facility] for the PPM extraction. - Follow up [...] PA-C Trauma Surgery Surgical Critical Care Pager: [phone] *For urgent issues arising after 5PM during the week or on weekends/holiday, please page the trauma resident marketing rotation associate at [phone]. This patient's plan of care was discussed with Trauma Floor attending, Dr. Giron Images from the original note were not included. DEPARTMENT OF SURGERY DIVISION OF TRAUMA, BURN, AND CRITICAL CARE TRAUMA REGULAR NURSING FLOOR DAILY PROGRESS NOTE Patient: Amado Tran, 59 year old, male : 1965 Admit Date: 04/30/2024 Room: [place] [address] Today's Date: 05/13/2024, Length of stay: 13 [...] MLF as an inter facility transfer from [facility] s/p Fall. Per reports Pt was at an instant oil change location when he exited his vehicle to assist the hospital laboratory technician in opening his vehicle door, when he stepped behind his vehicle he accidentally fell through the floor opening aprox 6ft. Pt reports falling straight down, negative LOC, negative head strike. Pt was unable to get up under his own strength, EMS was called and Pt was extricated via EMS/FD, immobilized and transported to [facility] ED. Imaging at OSH demonstrated a Grade [...] [facility] the [facility] at [facility]. [...] for pacer, no interrogation to be performed 2/ EOL device. Upright XR done. OR deferred. [...] to transfer to floor. 05/12: transferred to [facility], BP stable One-Liner: Pt is a 59 year old male with PMH of ESRD on HD MWF, T2DM, HFrEF and atrial fibrillation on eliquis who [facility] CAT [facility] to [facility]ICU for [...] Phos 4.1. UOP: 0mL BM: x0 Vitals & I/Os: 24 Hour Vitals Range: Vital sign ranges over the past 24 hours (retrieved 05/13/2024 at 8:42 PM): Tmax (24 hours): 98.8 F (37.1 C) Pulse Av.8 Min: 60 Max: 72 Systolic [...] Room air -- 05/13/24 1730 135/48 98.6 F (37 C) Oral 67 18 -- -- -- 05/13/24 1700 121/48 98.4 F (36.9 C) Oral 72 18 92 % Room air -- 05/13/24 1245 91/53 98.6 F (37 C) Oral 69 18 -- -- -- 05/13/24 1220 -- -- -- 64 18 -- Room air -- 05/13/24 1211 -- -- -- -- -- -- Room air -- 05/13/24 1210 -- -- -- 68 18 -- Room air -- 05/13/24 1205 95/58 -- -- -- -- -- -- -- 05/13/24 0952 121/49 98.4 F (36.9 C) Oral 65 18 93 % Room air [...] -- -- -- 05/13/24 0624 90/44 98.2 F (36.8 C) Oral 62 18 94 % Room air -- 05/13/24 0216 125/62 98.8 F (37.1 C) Axillary 63 18 100 % BiPAP -- 05/13/24 0019 -- -- -- -- -- -- BiPAP 2 05/12/24 2200 -- -- -- 70 18 -- Room air -- 05/12/24 2130 134/57 98.2 F (36.8 C) Oral 65 18 96 % Room air -- 24 Hour I&Os: In: 765 (5.4 mL/kg) [P.O.:525] Out: - [...] Moves all extremities spontaneously. Lab Data: 5.6 \ 8.1 / 153 / 25.7 \ CBC: 05/13/2024: 2:16 AM 132 97 47 / \ 146 4.0 24 4.55 BMP: 05/13/2024: 2:16 [...] Patient should follow with the cardiology at [facility] for the PPM extraction. Respiratory: # Hx [...] Mg >2, K >4 - Measure strict I&O - Continue home Renvela Infectious Disease: # no acute issues - Afebrile, without leukocytosis - Monitor temperature and WBC for signs of infection Hematology: # Hemorrhagic shock - H/H downtrend to 8.1 (8.5), suspect equilibrating. Right thigh is edematous but soft/compressible - T&S (05/10) - CBC daily - Maintain hemoglobin [...] as outpt in 4 weeks, hold the tory riri vitamin for 4 days prior to [...] with Dr. Chu in 2 weeks at [facility] -Orthopaedics will continue to follow peripherally - PT/OT - Recommend further therapy services in a Halfway Setting once medically cleared - Will continue to follow patient while in hospital as appropriate. - PMR Consulted - Ortho spine (05/01): - No acute spine interventions indicated Prophylaxis: - SCDs bilaterally - On therapeutic anticoagulation via home Eliquis - Protonix Follow Up: - PCP: No primary care provider on file. - [facility] - Endocrine: Repeat the TSH as outpt in 4 weeks, hold the tory riri vitamin for 4 days prior to the blood work LDA/Restraints: - PIV X 2 - RUE AVF Code Status: - Full Code Disposition: - Remain on RNF for H/H trend and monitoring of right thigh edema. - PO intake improved today. Do not suspect patient will require corpak - detention setting once medically cleared Jodee Marshall PA-C Trauma Surgery Surgical Critical Care Pager: [phone] *For urgent issues arising after 5PM during the week or on weekends/holiday, please page the trauma resident marketing rotation associate at [phone]. This patient's plan of care was discussed with Trauma Floor attending, Dr. Giron Case Management Patient is not medically clear. He has been accepted at [place]. 7000 is complete. CM will remain available to assist with discharge planning and needs as warranted. Marizol KIMBLE, RN Inpatient Data Management Associate Cell 5 [facility] M-F [phone] Images from the original note were not included. Hemodialysis Procedure Note for ESRD (N18.6) Access: [...] Daily midodrine 10 mg Q M, W & F insulin glargine 8 Units At Bedtime metoclopramide 5 mg Every 8 hours erythromycin base 500 mg 2x Daily levothyroxine 50 mcg Before Breakfast sertraline 125 mg Daily folic acid 1 mg Daily vitamin D2 ergocalciferol 50,000 Units Q7 Days cholecalciferol 1,000 Units Daily Normal consistency 2x Daily with Meals Normal consistency Daily with breakfast Apixaban 5 mg 2x Daily Tory-Riri RX 1 Tablet Daily insulin regular 4-14 Units 4x Daily AC & HS methocarbamol 750 mg Every 6 hours epoetin antione-epbx 10,000 Units Q , W & F acetaminophen 1,000 mg q6h nystatin 2x [...] -- -- -- 05/13/24 0624 90/44 98.2 F (36.8 C) Oral 62 18 94 % Room air -- 05/13/24 0216 125/62 98.8 F (37.1 C) Axillary 63 18 100 % BiPAP -- 05/13/24 0019 -- -- -- -- -- -- BiPAP 2 05/12/24 2200 -- -- -- 70 18 -- Room air -- 05/12/24 2130 134/57 98.2 F (36.8 C) Oral 65 18 96 % Room air -- 05/12/24 1944 -- -- -- -- -- -- Room air -- 05/12/24 1813 140/60 98.1 F (36.7 C) Oral 69 18 97 % Room air [...] Room air -- 05/12/24 1448 97/35 98.1 F (36.7 C) Oral 68 18 92 % Room air [...] Room air -- 05/12/24 1031 120/50 98.1 F (36.7 C) Oral 67 18 93 % Room air -- 05/12/24 1007 -- -- -- -- -- -- Room air -- 05/12/24 0927 -- -- -- -- -- -- Room air -- 05/12/24 0918 116/49 97.9 F (36.6 C) Oral 60 16 97 % Room air [...] MLF as an inter facility transfer from [facility] s/p Fall. #ESRD MWF @ [facility] Access-RAVF -HD today per submitted order, continue [...] daily weights, low k diet Clementine Alcantara APRN-[facility] Division of Nephrology & Hypertension Pager: [phone] 05/13/2462305/13/24 06 Vital Signs Heart Rate 62 -- Respiratory Rate 18 -- BP 90/44 (RN notified) 88/52 (manual, RN aware) MAP (mmHg) 58 mmHg -- MD notified of above vital signs. New order received. Images from the original note were not included. DEPARTMENT OF SURGERY DIVISION OF TRAUMA, BURN, AND CRITICAL CARE TRAUMA INTENSIVE CARE UNIT (TICU) DAILY PROGRESS NOTE Patient: Amado Tran, 59 year old, male : 1965 Admit Date: 04/30/2024 Room: [place] [address] Today's Date: 05/12/2024, Length of stay: 12 [...] MLF as an inter facility transfer from [facility] s/p Fall. Per reports Pt was at an instant oil change location when he exited his vehicle to assist the hospital laboratory technician in opening his vehicle door, when he stepped behind his vehicle he accidentally fell through the floor opening aprox 6ft. Pt reports falling straight down, negative LOC, negative head strike. Pt was unable to get up under his own strength, EMS was called and Pt was extricated via EMS/FD, immobilized and transported to [facility] ED. Imaging at OSH demonstrated a Grade [...] Pt was COTE scanned again here at [facility] given the absence of contrast at OSH. Pt. Had CVC and A-line placed in ED and was admitted to TICU for respiratory and hemodynamic monitoring. Hospital Course: 04/30: Admitted to TICU s/p fall with B/L rib fxs, Pelvic fx's, and questionable Grade 1 splenic injury s/p fall at [place] change location. 05/01: Titrated on levophed. CBC [...] CAT [facility] to [facility] for [...] intake. Acute overnight events: Patient transferred to [facility] overnight. Patient was working with PT this morning. Patient reports he is eating a bit more than he has been over the last few days. Hypophosphatemia replaced this morning. Patient still endorsing pain in the left shoulder and the right knee, but manageable with the pain medication. Lines: PIV x2 R AV fistula Vitals & I/Os: 24 Hour Vitals Range: Vital sign ranges over the past 24 hours (retrieved 05/12/2024 at 2:04 PM): Tmax (24 hours): 99 F (37.2 C) Pulse Av.1 Min: 60 Max: 81 Systolic [...] Room air -- 05/12/24 1031 120/50 98.1 F (36.7 C) Oral 67 18 93 % Room air -- 05/12/24 1007 -- -- -- -- -- -- Room air -- 05/12/2427 -- -- -- -- -- -- Room air -- 05/12/24 0918 116/49 97.9 F (36.6 C) Oral 60 16 97 % Room air -- 05/12/24 0905 -- -- -- -- -- -- Room air -- 05/12/24 0827 -- -- -- -- -- -- BiPAP -- 05/12/24 0737 -- -- -- -- -- -- BiPAP -- 05/12/24 0600 -- -- -- -- -- -- BiPAP -- 05/12/24 0410 110/51 98.1 F (36.7 C) Axillary 61 18 100 % BiPAP -- 05/12/24 0039 -- -- -- -- -- -- BiPAP 2 05/11/247 99/42 99 F (37.2 C) Oral 72 20 94 % Room air -- 05/11/242028 -- -- -- 74 22 -- Room air -- 05/11/24 2000 108/57 98.2 F (36.8 C) Oral 69 23 93 % Room air [...] Room air -- 05/11/24 1600 107/53 98.1 F (36.7 C) Oral 70 23 94 % Room air -- 05/11/24 1500 127/62 -- -- 72 16 100 % -- -- 24 Hour I&Os: In: 687 (4.9 mL/kg) [P.O.:450] Out: -1000 (-7.1 mL/kg) Net: 1683 Weight: 141.2 kg PO: 500 mL, 3 [...] Moves all extremities spontaneously. Lab Data: 6.5 \ 8.5 / 145 / 27.1 \ CBC: 05/12/2024: 12:32 AM 133 99 29 / \ 119 4.0 25 3.44 BMP: 05/12/2024: 12:32 [...] Mg >2, K >4 - Measure strict I&O - Continue home Renvela Infectious Disease: # no acute issues - Afebrile, without leukocytosis - Monitor temperature and WBC for signs of infection Hematology: # Hemorrhagic shock - Hgb stable (8.4) - T&S (10/27) - CBC daily - Maintain hemoglobin >7 [...] as outpt in 4 weeks, hold the tory riri vitamin for 4 days prior to [...] with Dr. Chu in 2 weeks at [facility] -Orthopaedics will continue to follow peripherally - PT/OT - Recommend further therapy services in a Halfway Setting once medically cleared - Will continue to follow patient while in hospital as appropriate. - PMR Consulted - Ortho spine (05/01): - No acute spine interventions indicated Prophylaxis: - SCDs bilaterally - On therapeutic anticoagulation via home Eliquis - Protonix Follow Up: - PCP: No primary care provider on file. - Ortho: with Dr. Chu in 2 weeks at [facility] - Endocrine: Repeat the TSH as outpt in 4 weeks, hold the tory riri vitamin for 4 days prior to the blood work LDA/Restraints: - PIV X 2 - RUE AVF Code Status: - Full Code Disposition: - Transfer to trauma floor today - detention setting once medically cleared Patient seen and evaluated with Attending Surgeon Dr. Canales. Please see attending attestation for final plan/recommendations. Florence Chavez MD General Surgery Department Trauma Surgery Pager [phone] Associated attestation - Guillermo Giron MD - 05/12/2024 3:50 PM EDT I have personally seen and examined the [...] with our care plan. Guillermo Giron MD Case Management CM made aware that patient meets requirements for SNF. Patient agreeable to SNF placement and has asked that referrals be sent to : [facility]/ [facility], [facility] Marizol KIMBLE, RN Inpatient Data Management Associate Cell 5 [facility] M-F [id number] Images from the original note were not included. Nephrology Follow-up Note Amado Tran 59 year old [id number] lbs MRN/Room: [id number]/AC5-710/2 Subjective: Seen and evaluated at bedside. Tolerated HD yesterday without incident, 1000 ml removed. Objective: General appearance: NAD Eyes: Non-icteric Skin: No apparent rash Abdomen: Soft, nt/nd Extremities: Mild edema BLE Neuro: A&Ox3 Access: RAVF Meds: senna 8.6 mg At Bedtime aspirin EC 81 mg Daily polyethylene glycol 17 g Daily midodrine 10 mg Q M, W & F insulin glargine 8 Units At Bedtime [...] with breakfast Apixaban 5 mg 2x Daily Tory-Riri RX 1 Tablet Daily insulin regular 4-14 Units 4x Daily AC & HS methocarbamol 750 mg Every 6 hours epoetin antione-epbx 10,000 Units Q M, W & F acetaminophen 1,000 mg q6h nystatin 2x [...] at 9:24 AM): Tmax (24 hours): 99 F (37.2 C) Pulse Av.1 Min: 60 Max: 81 Systolic [...] Flow Rate (l/min) 05/12/24 0918 116/49 97.9 F (36.6 C) Oral 60 16 97 % Room air -- 05/12/24 0905 -- -- -- -- -- -- Room air -- 05/12/24 0827 -- -- -- -- -- -- BiPAP -- 05/12/24 0737 -- -- -- -- -- -- BiPAP -- 05/12/24 0600 -- -- -- -- -- -- BiPAP -- 05/12/24 0410 110/51 98.1 F (36.7 C) Axillary 61 18 100 % BiPAP -- 05/12/24 0039 -- -- -- -- -- -- BiPAP 2 05/11/24 2257 99/42 99 F (37.2 C) Oral 72 20 94 % Room air -- 05/11/242028 -- -- -- 74 22 -- Room air -- 05/11/24 2000 108/57 98.2 F (36.8 C) Oral 69 23 93 % Room air [...] Room air -- 05/11/24 1600 107/53 98.1 F (36.7 C) Oral 70 23 94 % Room air -- 05/11/24 1500 127/62 -- -- 72 16 100 % -- -- 05/11/24 1400 134/63 -- -- 76 17 99 % -- -- 05/11/24 1315 139/68 97.9 F (36.6 C) -- 73 22 -- Room air -- 05/11/24 1300 125/72 -- -- 67 23 93 % -- -- 05/11/24 1227 -- -- -- 64 21 98 % Room air -- 05/11/24 1217 -- -- -- 69 16 99 % Room air -- 05/11/24 1200 132/61 97.8 F (36.6 C) Oral 66 21 96 % Room air [...] MLF as an inter facility transfer from [facility] s/p Fall. #ESRD MWF @ [facility] Access-RAVF -HD tomorrow per submitted order, continue MWF schedule #Bp/Volume Bp's soft -continue midodrine with HD #electrolyte/acid base K 4, stable Bicarb 254, stable #Anemia Hgb 8.5 -transfuse hgb <7 #MBD Calcium 7.7, phos 2.2 -hold phos binder for phos < 5 -continue renal MVI Renally dose all meds to ESRD Strict I/O's, daily weights, low k diet JOE Curtis Division of Nephrology & Hypertension Pager :[phone] Images from the original note were not included. Hemodialysis Procedure Note for ESRD Patient was [...] midodrine, 10 mg, Oral, Q M, W & F insulin glargine, 8 Units, Subcutaneous, At [...] breakfast Apixaban, 5 mg, Oral, 2x Daily Tory-Riri RX, 1 Tablet, Oral, Daily insulin regular, 4-14 Units, Subcutaneous, 4x Daily AC & HS methocarbamol, 750 mg, Oral, Every 6 hours epoetin antione-epbx, 10,000 Units, Subcutaneous, Q M, W & F acetaminophen, 1,000 mg, Oral, q6h nystatin, [...] Smith MD Division of Nephrology and Hypertension [facility] Tx complete 1000 mL uf removed tolerated well 05/11/24 1315 Graft/Fistula Dialysis Access [...] Location Generalized;Bilateral LE Vital Signs Temperature 97.9 F (36.6 C) Heart Rate 73 Respiratory Rate 22 BP [...] Actual (Net) Fluid Removed (ml) -1000 ml Images from the original note were not included. DEPARTMENT OF SURGERY DIVISION OF TRAUMA, BURN, AND CRITICAL CARE TRAUMA INTENSIVE CARE UNIT (TICU) DAILY PROGRESS NOTE Patient: Amado Tran, 59 year old, male : 1965 Admit Date: 04/30/2024 Room: [facility] Today's Date: 05/11/2024, Length of stay: [...] MLF as an inter facility transfer from [facility] s/p Fall. Per reports Pt was at an [facility] oil [facility] location when he exited his vehicle to assist the hospital laboratory technician in opening his vehicle door, when he stepped behind his vehicle he accidentally fell through the floor opening aprox 6ft. Pt reports falling straight down, negative LOC, negative head strike. Pt was unable to get up under his own strength, EMS was called and Pt was extricated via EMS/FD, immobilized and transported to [facility] ED. Imaging at OSH demonstrated a Grade [...] Pt was COTE scanned again here at [facility] given the absence of contrast at OSH. Pt. Had CVC and A-line placed in ED and was admitted to TICU for respiratory and hemodynamic monitoring. Hospital Course: 04/30: Admitted to TICU s/p fall with B/L rib fxs, Pelvic fx's, and questionable Grade 1 splenic injury s/p fall at [facility] location. 05/01: Titrated on levophed. CBC trended. [...] CAT [facility] to the TICU for [...] Lines: PIV x2 R AV fistula Vitals & I/Os: 24 Hour Vitals Range: Vital sign ranges over the past 24 hours (retrieved 05/11/2024 at 6:39 AM): Tmax (24 hours): 98.1 F (36.7 C) Pulse Av.5 Min: 54 Max: 78 Systolic [...] -- 58 17 100 % -- -- 05/11/24 0434 74/41 -- -- 59 14 100 % -- -- 05/11/243 76/44 -- -- 60 19 100 % -- -- 05/11/241 68/33 -- -- 58 19 100 % -- -- 05/11/240 68/33 -- -- 58 16 96 % -- -- 05/11/24 0401 70/45 -- -- 58 11 100 % BiPAP 2 05/11/24 0400 -- 98.1 F (36.7 C) Axillary 56 12 100 % -- -- 05/11/24 0300 -- -- -- 55 12 100 % -- -- 05/11/24 0200 80/50 -- -- 55 14 100 % -- -- 05/11/24 0100 -- -- -- 59 10 100 % -- -- 05/11/24 0000 81/46 97.3 F (36.3 C) Oral 57 12 100 % BiPAP 2 05/10/24 2300 -- -- -- 58 14 100 % -- -- 05/10/24 2200 83/46 -- -- 62 15 100 % -- -- 05/10/242099 -- -- -- 65 13 100 % -- -- 05/10/242045 -- -- -- 67 20 95 % BiPAP 2 05/10/241999 -- 97.9 F (36.6 C) Oral -- -- -- -- -- 05/10/24 1800 92/54 -- -- 69 15 93 % -- -- 05/10/24 1602 -- -- -- 68 14 97 % Room air -- 05/10/24 1600 102/47 98.1 F (36.7 C) Axillary 68 19 93 % Room air -- 05/10/24 1400 107/57 -- -- 78 19 99 % -- -- 05/10/24 1220 -- -- -- -- -- 96 % Room air -- 05/10/24 1212 -- -- -- 62 17 100 % Nasal cannula 1 05/10/24 1200 124/59 97.9 F (36.6 C) Axillary 62 10 100 % Nasal cannula [...] Nasal cannula 1 05/10/24 0800 -- 97.7 F (36.5 C) Axillary 55 13 100 % Nasal cannula 1 24 Hour I&Os: In: 1220 (8.6 mL/kg) [P.O.:500] Out: - [...] Moves all extremities spontaneously. Lab Data: 6.1 \ 8.4 / 172 / 26.6 \ CBC: 05/11/2024: 2:36 AM 134 100 47 / \ 141 4.2 26 4.99 BMP: 05/11/2024: 2:36 [...] Mg >2, K >4 - Measure strict I&O - Continue home Renvela Infectious Disease: # no acute issues - Afebrile, without leukocytosis - Monitor temperature and WBC for signs of infection Hematology: # Hemorrhagic shock - Hgb stable (8.4) - T&S (05/10) - CBC daily - Maintain hemoglobin [...] as outpt in 4 weeks, hold the tory riri vitamin for 4 days prior to [...] with Dr. Chu in 2 weeks at [facility] -Orthopaedics will continue to follow peripherally - PT/OT - Recommend further therapy services in a Halfway Setting once medically cleared - Will continue to follow patient while in hospital as appropriate. - PMR Consulted - Ortho spine (05/01): - No acute spine interventions indicated Prophylaxis: - SCDs bilaterally - On therapeutic anticoagulation via home Eliquis - Protonix Follow Up: - PCP: No primary care provider on file. - [facility] - Endocrine: Repeat the TSH as outpt in 4 weeks, hold the tory riri vitamin for 4 days prior to the blood work LDA/Restraints: - PIV X 2 - RUE AVF Code Status: - Full Code Disposition: - Transfer to trauma floor today - detention setting once medically cleared Patient seen and evaluated with Attending Surgeon Dr. Canales. Please see attending attestation for final plan/recommendations. Gorge Reed MD Anesthesiology Copy Lathe Tender, PGY1 EGS/TRAUMA/ICU STAFF NOTE: I saw and [...] Surgery Surgical Critical Care Trauma Surgery Pager: [phone] Images from the original note were not included. Nephrology Follow-up Note Amado Tran 59 year old [id number] lbs MRN/Room: [id number]/AC5 Subjective: No HD today For Tomorrow. Objective: [...] with breakfast Apixaban 5 mg 2x Daily Tory-Riri RX 1 Tablet Daily insulin regular 4-14 Units 4x Daily AC & HS methocarbamol 750 mg Every 6 hours epoetin antione-epbx 10,000 Units Q M, W & F acetaminophen 1,000 mg q6h nystatin 2x [...] at 4:29 PM): Tmax (24 hours): 98.1 F (36.7 C) Pulse Av.5 Min: 53 Max: 78 Systolic [...] Room air -- 05/10/24 1600 -- 98.1 F (36.7 C) Axillary -- -- -- -- -- 05/10/24 1400 107/57 -- -- 78 19 99 % -- -- 05/10/24 1220 -- -- -- -- -- 96 % Room air -- 05/10/24 1212 -- -- -- 62 17 100 % Nasal cannula 1 05/10/24 1200 124/59 97.9 F (36.6 C) Axillary 62 10 100 % Nasal cannula [...] Nasal cannula 1 05/10/24 0800 -- 97.7 F (36.5 C) Axillary 55 13 100 % Nasal cannula 1 05/10/24 0600 -- -- -- 61 15 100 % -- -- 05/10/24 0500 -- -- -- 54 2 100 % -- -- 05/10/24 0400 -- -- -- 53 14 100 % -- -- 05/10/24 0355 -- 97.6 F (36.4 C) Axillary 53 17 100 % -- -- [...] % -- -- 05/09/24 2331 -- 98 F (36.7 C) Oral 59 16 100 % -- -- 05/09/242299 -- -- -- 62 18 100 % -- -- 05/09/242199 -- -- -- 66 20 98 % -- -- 05/09/242099 -- -- -- 62 18 99 % -- -- 05/09/242037 -- -- -- 61 14 99 % -- -- 05/09/242016 -- -- -- 65 14 97 % Nasal cannula 1 05/09/241999 122/58 98.1 F (36.7 C) Axillary 58 13 95 % Nasal cannula [...] Nephrology Fellow Daytime / Weekend Renal Pager [phone] After 7 pm Emergencies Pager [phone] Attending/Teaching Physician Note: I saw and evaluated [...] dialysis for BP support Alan Miranda MD Pharmacy Renal Dosing Service Name: Amado Tran Age: [age] year old [...] has been updated per consult agreement. Tasneem May [facility] Department of Pharmacy Services Images from the original note were not included. DEPARTMENT OF SURGERY DIVISION OF TRAUMA, BURN, AND CRITICAL CARE TRAUMA INTENSIVE CARE UNIT (TICU) DAILY PROGRESS NOTE Patient: Amado Tran, 59 year old, male : 1965 Admit Date: 04/30/2024 Room: [facility] Today's Date: 05/10/2024, Length of stay: 10 [...] MLF as an inter facility transfer from [facility] s/p Fall. Per reports Pt was at an instant oil change location when he exited his vehicle to assist the hospital laboratory technician in opening his vehicle door, when he stepped behind his vehicle he accidentally fell through the floor opening aprox 6ft. Pt reports falling straight down, negative LOC, negative head strike. Pt was unable to get up under his own strength, EMS was called and Pt was extricated via EMS/FD, immobilized and transported to [facility] ED. Imaging at OSH demonstrated a Grade [...] Pt was [facility] given the absence of contrast at OSH. Pt. Had CVC and A-line placed in ED and was admitted to TICU for respiratory and hemodynamic monitoring. Hospital Course: 04/30: Admitted to TICU s/p fall with B/L rib fxs, Pelvic fx's, and questionable Grade 1 splenic injury s/p fall at [facility] [place] change location. 05/01: Titrated on levophed. CBC [...] post-pyloric corpak Mon if poor PO intake. One-Liner: Pt is a 59 year old male with PMH of ESRD on HD MWF, T2DM, HFrEF and atrial fibrillation on eliquis who presented as a CAT [facility] to the TICU for [...] L femoral A-line R AV fistula Vitals & I/Os: 24 Hour Vitals Range: Vital sign ranges over the past 24 hours (retrieved 05/10/2024 at 10:45 AM): Tmax (24 hours): 98.9 F (37.2 C) Pulse Av.3 Min: 53 Max: 78 Systolic [...] Nasal cannula 1 05/10/24 0800 -- 97.7 F (36.5 C) Axillary 55 13 100 % Nasal cannula 1 05/10/24 0600 -- -- -- 61 15 100 % -- -- 05/10/24 0500 -- -- -- 54 2 100 % -- -- 05/10/24 0400 -- -- -- 53 14 100 % -- -- 05/10/24 0355 -- 97.6 F (36.4 C) Axillary 53 17 100 % -- -- [...] % -- -- 05/09/24 2331 -- 98 F (36.7 C) Oral 59 16 100 % -- -- 05/09/24 2300 -- -- -- 62 18 100 % -- -- 05/09/24 2200 -- -- -- 66 20 98 % -- -- 05/09/24 2100 -- -- -- 62 18 99 % -- -- 05/09/24 2038 -- -- -- 61 14 99 % -- -- 05/09/242016 -- -- -- 65 14 97 % Nasal cannula 1 05/09/24 2000 122/58 98.1 F (36.7 C) Axillary 58 13 95 % Nasal cannula [...] % -- -- 05/09/24 1200 -- 98.9 F (37.2 C) Oral 66 15 100 % Nasal cannula 1 05/09/24 1115 -- -- -- 65 14 99 % -- -- 24 Hour I&Os: In: 1005 (7.1 mL/kg) [P.O.:200] Out: - [...] Moves all extremities spontaneously. Lab Data: 8.5 \ 8.4 / 178 / 26.1 \ CBC: 05/10/2024: 2:49 AM 134 100 32 / \ 214 4.4 25 3.60 BMP: 05/10/2024: 2:49 [...] to 8 values) 05/10/2024 05/09/2024 05/09/2024 05/08/2024 05/07/2024 05/06/2024 05/06/2024 05/05/2024 2:49 AM 1:11 PM 1:17 [...] ESRD - Nephro consulted: - HD 05/08 & 05/09 tolerated well - MWF HD - Continue midodrine prior to HD - Renal MV and Renal diet - BMP/Mg/P daily - Replace electrolytes as indicated - Maintain Mg >2, K >4 - Measure strict I&O - Continue home Renvela Infectious Disease: # no acute issues - Monitor temperature and WBC for signs of infection Hematology: # Hemorrhagic shock - 2U PRBCs and albumin yesterday - T&S for tomorrow a.m. - CBC daily - [...] with Dr. Chu in 2 weeks at [facility] -Orthopaedics will continue to follow peripherally - PT/OT - Recommend further therapy services in a Halfway Setting once medically cleared - Will continue to follow patient while in hospital as appropriate. - PMR Consulted - Ortho spine (05/01): - No acute spine interventions indicated Prophylaxis: - SCDs bilaterally - On therapeutic anticoagulation via home Eliquis - Protonix Follow Up: - PCP: No primary care provider on file. - Ortho: with Dr. Chu in 2 weeks at [facility] - Endocrine: pending course LDA/Restraints: - PIV X 2 - L femoral A-line - remove today - RUE AVF Code Status: - Full Code Disposition: - Transfer to trauma floor today - LTACH vs SNF Patient seen and evaluated with Attending Surgeon Dr. Giron. Please see attending attestation for final plan/recommendations. Mima Narayan MD Associated attestation - Guillermo Giron MD - 05/10/2024 10:59 AM EDT I have personally seen and examined the [...] Care Time 35 minutes Guillermo Giron MD Images from the original note were not included. Nephrology Follow-up Note Amado Tran 59 year old [id number] lbs MRN/Room: [id number]/ Subjective: HD today tolerated Objective: Meds: levothyroxine [...] with breakfast Apixaban 5 mg 2x Daily Tory-Riri RX 1 Tablet Daily insulin regular 4-14 Units 4x Daily AC & HS methocarbamol 750 mg Every 6 hours epoetin antione-epbx 10,000 Units Q M, W & F acetaminophen 1,000 mg q6h nystatin 2x [...] at 3:23 PM): Tmax (24 hours): 99.5 F (37.5 C) Pulse Av.6 Min: 60 Max: 78 Systolic [...] % -- -- 05/09/24 1200 -- 98.9 F (37.2 C) Oral 66 15 100 % Nasal cannula 1 05/09/24 1115 -- -- -- 65 14 99 % -- -- 05/09/24 1030 -- -- -- 60 17 99 % -- -- 05/09/24 1015 -- -- -- 61 20 -- Nasal cannula 1 05/09/24 1011 119/44 97.9 F (36.6 C) -- 61 17 99 % -- -- 05/09/24 1000 91/49 -- -- 65 20 99 % -- -- 05/09/24 0908 -- -- -- -- -- -- Nasal cannula 1 05/09/24 0900 -- -- -- -- -- 87 % Room air -- 05/09/24 0813 -- -- -- -- -- 99 % Nasal cannula 1 05/09/24 0800 91/42 98 F (36.7 C) Oral 62 16 100 % Nasal cannula 2 05/09/24 0700 103/64 -- -- 62 16 98 % -- -- 05/09/24 0600 96/40 -- -- 62 16 98 % -- -- 05/09/24 0500 96/41 -- -- 63 16 98 % -- -- 05/09/24 0400 112/51 98.2 F (36.8 C) Axillary 65 19 99 % Nasal cannula 2 05/09/24 0300 102/42 -- -- 67 19 100 % -- -- 05/09/24 0254 100/32 98 F (36.7 C) Axillary 67 19 99 % Nasal cannula 2 05/09/24 0253 100/32 -- -- 68 17 97 % -- -- 05/09/24 0239 94/30 98.5 F (36.9 C) -- 66 17 99 % Nasal cannula 2 05/09/24 0100 88/41 -- -- 68 16 91 % -- -- 05/09/24 0000 -- 99.5 F (37.5 C) Axillary 70 18 96 % Nasal cannula 2 05/08/24 2234 -- -- -- 72 12 98 % -- -- 05/08/242029 -- -- -- 75 26 97 % -- -- 05/08/24 2000 -- 99.4 F (37.4 C) Oral 76 18 99 % Nasal cannula 2 05/08/24 1800 -- -- -- 74 16 97 % -- -- 05/08/24 1700 -- -- -- 74 16 97 % -- -- 05/08/24 1615 -- -- -- 72 18 99 % Nasal cannula 2 05/08/24 1600 -- 97.7 F (36.5 C) Oral 73 18 99 % Nasal cannula [...] 4.8 4.6 Cl 99 93 94 CO2 25 24 Gap 17 18 19 Glu [...] #Needs spine surgery? RECOMMENDATIONS: - HD 05/08 & 05/09 tolerated well. - MWF HD - Continue midodrine prior to HD. - Renal MV and Renal diet. Ayleen Kurtz MD Nephrology Fellow Daytime / Weekend Renal Pager [phone] After 7 pm Emergencies Pager [phone] Attending/Teaching Physician Note: I saw and evaluated [...] at 10:27 PM): Tmax (24 hours): 99.5 F (37.5 C) Pulse Av.5 Min: 58 Max: 78 Systolic [...] would tentatively be Saturday Alan Miranda MD 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 Tx hours 3 Tolerance of tx well, no issues with VS, BP maintained, pt received Midodrine pre treatment Access functioning well, right lower arm avg Total UF 0 Post VS 37.2-66-18 139/59 Report to Ron KATHLEEN Images from the original note were not included. DEPARTMENT OF SURGERY DIVISION OF TRAUMA, BURN, AND CRITICAL CARE TRAUMA INTENSIVE CARE UNIT (TICU) DAILY PROGRESS NOTE Patient: Amado Tran, 59 year old, male : 1965 Admit Date: 04/30/2024 Room: [facility] Today's Date: 05/09/2024, Length of stay: 9 [...] MLF as an inter facility transfer from [facility] s/p Fall. Per reports Pt was at a [facility] location when he exited his vehicle to assist the hospital laboratory technician in opening his vehicle door, when he stepped behind his vehicle he accidentally fell through the floor opening aprox 6ft. Pt. Reports falling straight down, negative LOC, negative head strike. Pt was unable to get up under his own strength, EMS was called and Pt was extricated via EMS/FD, immobilized and transported to [facility] ED. Imaging at OSH demonstrated a Grade [...] Pt was COTE scanned again here at [facility] given the absence of contrast at OSH. Pt. Had CVC and A-line placed in ED and was admitted to TICU for respiratory and hemodynamic monitoring. Hospital Course: 04/30: Admitted to TICU s/p fall with B/L rib fxs, Pelvic fx's, and questionable Grade 1 splenic injury s/p fall at [facility] location. 05/01: Titrated on levophed. CBC trended. [...] CAT [facility] to [facility] for [...] needs PRN midodrine prior to HD Vitals & I/Os: 24 Hour Vitals Range: Vital sign ranges over the past 24 hours (retrieved 05/09/2024 at 7:56 AM): Tmax (24 hours): 99.5 F (37.5 C) Pulse Av.8 Min: 62 Max: 83 Systolic [...] % -- -- 05/09/24 0400 112/51 98.2 F (36.8 C) Axillary 65 19 99 % Nasal cannula 2 05/09/24 0300 102/42 -- -- 67 19 100 % -- -- 05/09/24 0254 100/32 98 F (36.7 C) Axillary 67 19 99 % Nasal cannula 2 05/09/24 0253 100/32 -- -- 68 17 97 % -- -- 05/09/24 0239 94/30 98.5 F (36.9 C) -- 66 17 99 % Nasal cannula 2 05/09/24 0100 88/41 -- -- 68 16 91 % -- -- 05/09/24 0000 -- 99.5 F (37.5 C) Axillary 70 18 96 % Nasal cannula 2 05/08/24 2234 -- -- -- 72 12 98 % -- -- 05/08/242029 -- -- -- 75 26 97 % -- -- 05/08/24 2000 -- 99.4 F (37.4 C) Oral 76 18 99 % Nasal cannula 2 05/08/24 1800 -- -- -- 74 16 97 % -- -- 05/08/24 1700 -- -- -- 74 16 97 % -- -- 05/08/24 1615 -- -- -- 72 18 99 % Nasal cannula 2 05/08/24 1600 -- 97.7 F (36.5 C) Oral 73 18 99 % Nasal cannula 2 05/08/24 1500 -- -- -- 77 19 98 % -- -- 05/08/24 1400 -- -- -- 77 22 97 % -- -- 05/08/24 1300 -- -- -- 82 21 99 % -- -- 05/08/24 1230 -- 97.7 F (36.5 C) Axillary 80 17 -- Nasal cannula -- [...] Nasal cannula 2 05/08/24 0800 -- 98.2 F (36.8 C) Axillary 66 19 99 % BiPAP -- 24 Hour I&Os: In: 750 (5.3 mL/kg) [P.O.:350] Out: -1500 [...] Moves all extremities spontaneously. Lab Data: 9.4 \ 6.9 / 151 / 20.6 \ CBC: 05/09/2024: 1:17 AM 135 99 35 / \ 124 4.7 24 4.57 BMP: 05/09/2024: 1:17 [...] -- -- INR -- 1.16 1.29 Type & Screen: Type & Screen (Last result in the past 30 [...] Notified FRANNIE URIBE MD
05/07/24 2204 165 05/07/24 1650 153 05/07/24 [...] Mg >2, K >4 - Measure strict I&O - Continue home Renvela Infectious Disease: - Afebrile, no leukocytosis - Monitor temperature and WBC for signs of infection Hematology: # Hemorrhagic shock - s/p 2 U PRBC, post-transfusion hgb 8.8 - T&S for tomorrow a.m. - CBC daily - [...] with Dr. Chu in 2 weeks at [facility] - PT/OT: - detention setting once medically cleared - Will continue to follow - PM&R Consulted, appreciate recommendations - Ortho spine (05/01): - No acute spine interventions indicated Prophylaxis: - SCDs bilaterally - On therapeutic anticoagulation via home Eliquis Follow Up: - PCP: No primary care provider on file. - Ortho: with Dr. Chu in 2 weeks at [facility] - Endocrine LDA/Restraints: - PIV X 2 [...] for final plan/recommendations. Gorge Reed MD Anesthesiology Copy Lathe Tender, PGY1 Associated attestation - Guillermo Giron MD - 05/10/2024 10:57 AM EDT I have personally seen and examined the [...] Care Time 35 minutes Guillermo Giron MD Images from the original note were not included. Nephrology Follow-up Note Amado Tran 59 year old [id number] lbs MRN/Room: [id number]/[facility] Subjective: HD Today done Tolerated Objective: Meds: [START ON 05/09/2024] sertraline 125 mg Daily midodrine 7.5 mg Every 8 hours folic acid 1 mg Daily [START ON 05/11/2024] folic acid 1 mg Daily vitamin D2 ergocalciferol 50,000 Units Q7 Days cholecalciferol 1,000 Units Daily Normal consistency 2x Daily with Meals Normal consistency Daily with breakfast Apixaban 5 mg 2x Daily Tory-Riri RX 1 Tablet Daily insulin regular 4-14 Units 4x Daily AC & HS methocarbamol 750 mg Every 6 hours epoetin antione-epbx 10,000 Units Q M, W & F acetaminophen 1,000 mg q6h nystatin 2x [...] at 4:27 PM): Tmax (24 hours): 98.6 F (37 C) Pulse Av.3 Min: 63 Max: 83 No data recorded. No data recorded. No data recorded Resp Av.1 Min: 9 Max: 21 SpO2 Av.1 % Min: 96 % Max: 100 % Patient Vitals for the past 24 hrs: Temp Temp src Pulse Resp SpO2 O2 Device O2 Flow Rate (l/min) 05/08/24 1615 -- -- 72 18 99 % Nasal cannula 2 05/08/24 1600 97.7 F (36.5 C) Oral -- -- -- -- -- 05/08/24 1300 -- -- 82 21 99 % -- -- 05/08/24 1230 97.7 F (36.5 C) Axillary 80 17 -- Nasal cannula -- [...] % Nasal cannula 2 05/08/24 0800 98.2 F (36.8 C) Axillary 66 19 99 % BiPAP -- 05/08/24 0700 -- -- 67 13 99 % -- -- 05/08/24 0600 -- -- 67 13 100 % -- -- 05/08/24 0500 -- -- 63 11 100 % -- -- 05/08/24 0400 97.9 F (36.6 C) Oral 63 10 97 % BiPAP 2 05/08/24 0300 -- -- 65 9 98 % -- -- 05/08/24 0200 -- -- 65 14 100 % -- -- 05/08/24 0136 -- -- -- -- -- BiPAP 2 05/08/24 0100 -- -- 64 12 99 % -- -- 05/08/24 0000 98.6 F (37 C) Oral 65 12 99 % BiPAP 2 05/07/242299 -- -- 66 15 97 % -- -- 05/07/242236 -- -- 68 16 99 % BiPAP 2 05/07/242199 -- -- 65 16 100 % -- -- 05/07/242099 -- -- 66 14 99 % -- -- 05/07/242005 -- -- 65 12 99 % Nasal cannula 2 05/07/241999 98.2 F (36.8 C) Oral 65 13 96 % Nasal cannula 2 05/07/24 1800 -- -- 71 20 99 % -- -- 05/07/24 165 -- -- 69 16 100 % Nasal cannula 2 05/07/24 163 -- -- 63 21 99 % Nasal [...] #Needs spine surgery RECOMMENDATIONS: - HD 05/08 & 05/09 planned. - MWF HD - Continue midodrine prior to HD. - Renal MV and Renal diet. Ayleen Kurtz MD Nephrology Fellow Daytime / Weekend Renal Pager [phone] After 7 pm Emergencies Pager [phone] Attending/Teaching Physician Note: I saw and evaluated [...] midodrine for BP support Alan Miranda MD Social Work ICU Note SW has been following pt for SNF planning. Pt with general SNF list and SNF list with onsite HD. If pt selects a SNF w/o onsite dialysis the facility will need to be able to provide pt transportation to HD. Pt normally dialyzes MWF 6:30a-11:30a at [facility]. P# ; F# . Pt's wire welder is Dr. Decker. Attempted to meet with pt multiple times for SNF follow-up. Pt sleeping or with medical providers at SW's attempts. Pt not ready for DC, no weekend discharge. Plan: Awaiting SNF choice(s) and acceptance. Pending pt's medical needs pt may be LTACH candidate. SW or nursing CM will continue to follow. ELICEO Avalos LISW Tx complete 1500 mL uf removed tolerated well 05/08/24 1230 Dialysis Weight Assessment [...] of Consciousness WNL Vital Signs Temperature 98.1 F (36.7 C) Heart Rate 80 Respiratory Rate 17 Arterial [...] Actual (Net) Fluid Removed (ml) -1500 ml Images from the original note were not included. DEPARTMENT OF SURGERY DIVISION OF TRAUMA, BURN, AND CRITICAL CARE TRAUMA INTENSIVE CARE UNIT (TICU) DAILY PROGRESS NOTE Patient: Amado Tran, 59 year old, male : 1965 Admit Date: 04/30/2024 Room: [facility] Today's Date: 05/08/2024, Length of stay: [...] MLF as an inter facility transfer from [facility] s/p Fall. Per reports Pt was at a [facility] location when he exited his vehicle to assist the hospital laboratory technician in opening his vehicle door, when he stepped behind his vehicle he accidentally fell through the floor opening aprox 6ft. Pt. Reports falling straight down, negative LOC, negative head strike. Pt was unable to get up under his own strength, EMS was called and Pt was extricated via EMS/FD, immobilized and transported to [facility] ED. Imaging at OSH demonstrated a Grade [...] Pt was COTE scanned again here at [facility] given the absence of contrast at OSH. Pt. Had CVC and A-line placed in ED and was admitted to TICU for respiratory and hemodynamic monitoring. Hospital Course: 04/30: Admitted to TICU s/p fall with B/L rib fxs, Pelvic fx's, and questionable Grade 1 splenic injury s/p fall at [facility] location. 05/01: Titrated on levophed. CBC trended. [...] CAT [facility] to [facility] for [...] - BM x 3 this a.m. Vitals & I/Os: 24 Hour Vitals Range: Vital sign ranges over the past 24 hours (retrieved 05/08/2024 at 7:42 AM): Tmax (24 hours): 98.6 F (37 C) Pulse Av.1 Min: 62 Max: 71 Systolic [...] % -- -- 05/08/24 0400 -- 97.9 F (36.6 C) Oral 63 10 97 % BiPAP 2 05/08/24 0300 -- -- -- 65 9 98 % -- -- 05/08/24 0200 -- -- -- 65 14 100 % -- -- 05/08/24 0136 -- -- -- -- -- -- BiPAP 2 05/08/24 0100 -- -- -- 64 12 99 % -- -- 05/08/24 0000 -- 98.6 F (37 C) Oral 65 12 99 % BiPAP 2 05/07/24 230 -- -- -- 66 15 97 % -- -- 05/07/242236 -- -- -- 68 16 99 % BiPAP 2 05/07/242199 -- -- -- 65 16 100 % -- -- 05/07/242099 -- -- -- 66 14 99 % -- -- 05/07/242005 -- -- -- 65 12 99 % Nasal cannula 2 05/07/241999 -- 98.2 F (36.8 C) Oral 65 13 96 % Nasal cannula 2 05/07/24 1800 -- -- -- 71 20 99 % -- -- 05/07/24 1657 -- -- -- 69 16 100 % Nasal cannula 2 05/07/24 1637 -- -- -- 63 21 99 % Nasal cannula 2 05/07/24 1600 -- 97.7 F (36.5 C) Oral 62 15 100 % Nasal cannula 2 05/07/24 1500 -- -- -- 63 17 98 % -- -- 05/07/24 1400 -- -- -- 62 21 100 % -- -- 05/07/24 1300 -- -- -- 62 12 100 % -- -- 05/07/24 1200 -- 97.6 F (36.4 C) Oral 66 17 100 % Nasal cannula [...] Nasal cannula 2 05/07/24 0800 -- 98.4 F (36.9 C) Oral 63 16 92 % Nasal cannula 2 05/07/24 0751 -- -- -- 68 15 -- Nasal cannula 2 24 Hour I&Os: In: 960 (6.7 mL/kg) [P.O.:60; I.V.:100 (0 [...] Moves all extremities spontaneously. Lab Data: 9.2 \ 7.6 / 155 / 22.5 \ CBC: 05/08/2024: 4:11 AM 131 93 63 / \ 112 4.8 25 7.48 BMP: 05/08/2024: 4:11 [...] -- -- INR -- 1.16 1.29 Type & Screen: Type & Screen (Last result in the past 30 [...] Mg >2, K >4 - Measure strict I&O - Continue home Renvela Infectious Disease: - Afebrile, no leukocytosis - Monitor temperature and WBC for signs of infection Hematology: # Hemorrhagic shock - Hgb stable 7.6 from 7.4 - Type & Screen 05/06, s/p 1U PRBC (05/06) - [...] with Dr. Chu in 2 weeks at dispo - PT/OT: - detention setting once medically cleared - Will continue to follow - PM&R Consulted, appreciate recommendations - Ortho spine (05/01): - No acute spine interventions indicated Prophylaxis: - SCDs bilaterally - On therapeutic anticoagulation via home Eliquis Follow Up: - PCP: No primary care provider on file. - Ortho: with Dr. Chu in 2 weeks at [facility] LDA/Restraints: - PIV X 2 - L [...] for final plan/recommendations. Gorge Reed MD Anesthesiology Copy Lathe Tender, PGY1 Teaching Physician Note: I saw and [...] depending on cardiac, dietary Farrah Asencio MD Images from the original note were not included. Orthopaedics Progress Note Amado Tran [id number] A/P: PT is a 59 year old [...] with Dr. Chu in 2 weeks at dispo -Orthopaedics will continue to follow peripherally S: Doing well this AM. Pain moderately controlled. Incisions healing well. O: Vitals Recorded in This Encounter 05/08/2024 0200 05/08/2024 0300 05/08/2024 0400 05/08/2024 0500 05/08/2024 0600 Pulse: 65 65 63 63 67 Resp: 14 9 10 11 13 Temp: -- -- 97.9 F (36.6 C) -- -- Temp src: -- -- Oral [...] DP/SP/S/S/Tib Wiggles toes 5/5 EHL/FHL/DF/PF Incisions clean/dry/intact Zahida Snyder MD, PGY-3 Orthopaedic Surgery [facility] For questions/issues: Patient will be followed by the A team, at 0700 the day following initial consultation. Please page: Ortho Team A: Dona Allred PGY1 Zahida Snyder PGY3 Ortho Team B: Everett Woods PGY2 Conejos Abiel PGY2 Ortho Elective Team: Valente Donaldson PGY2 Tyler Lynn PGY3 Ortho Hand Team: Darren Rashid PGY4 Otoniel Felix PGY4 Between 5pm-7am, weekends, and holidays please page ortho consult pager with urgent/emergent issues, [phone] Images from the original note were not included. Nephrology Follow-up Note Amado Tran 59 year old 314 lbs MRN/Room: [id number]/ Subjective: HD today complicated by access infiltration For HD tomorrow. Objective: Meds: midodrine 7.5 mg Every 8 hours folic acid 1 mg Daily [START ON 05/11/2024] folic acid 1 mg Daily vitamin D2 ergocalciferol 50,000 Units Q7 Days cholecalciferol 1,000 Units Daily Normal consistency 2x Daily with Meals Normal consistency Daily with breakfast Apixaban 5 mg 2x Daily polyethylene glycol 17 g BID Tory-Riri RX 1 Tablet Daily insulin regular 4-14 Units 4x Daily AC & HS methocarbamol 750 mg Every 6 hours epoetin antione-epbx 10,000 Units Q M, W & F acetaminophen 1,000 mg q6h nystatin 2x [...] at 5:14 PM): Tmax (24 hours): 98.4 F (36.9 C) Pulse Av.2 Min: 61 Max: 72 Systolic [...] Nasal cannula 2 05/07/24 1600 -- 97.7 F (36.5 C) Oral 62 15 100 % Nasal cannula 2 05/07/24 1500 -- -- -- 63 17 98 % -- -- 05/07/24 1400 -- -- -- 62 21 100 % -- -- 05/07/24 1300 -- -- -- 62 12 100 % -- -- 05/07/24 1200 -- 97.6 F (36.4 C) Oral 66 17 100 % Nasal cannula [...] Nasal cannula 2 05/07/24 0800 -- 98.4 F (36.9 C) Oral 63 16 92 % Nasal cannula 2 05/07/24 0751 -- -- -- 68 15 -- Nasal cannula 2 05/07/24 0700 -- -- -- 64 -- 100 % -- -- 05/07/24 0600 -- -- -- 67 -- 100 % -- -- 05/07/24 0500 -- -- -- 61 -- 100 % -- -- 05/07/24 0400 -- 98.4 F (36.9 C) Oral 61 -- 99 % BiPAP 2 05/07/24 030 -- -- -- 62 -- 100 % -- -- 05/07/24 022 -- -- -- -- -- -- BiPAP 2 05/07/24199 -- -- -- 63 -- 100 % -- -- 05/07/24 010 -- -- -- 64 -- 100 % -- -- 05/07/24 0000 -- 98.2 F (36.8 C) Oral 63 -- 97 % BiPAP 2 05/06/242299 -- -- -- 66 -- 100 % -- -- 05/06/242199 -- -- -- 71 -- 100 % -- -- 05/06/242117 -- -- -- -- -- -- BiPAP 2 05/06/242099 -- -- -- 68 15 100 % -- -- 05/06/241999 -- 98.1 F (36.7 C) Oral 72 15 100 % Nasal cannula 2 05/06/24 192 -- -- -- 71 16 100 % -- -- 05/06/24 191 -- -- -- 67 12 100 % [...] Nephrology Fellow Daytime / Weekend Renal Pager [phone] After 7 pm Emergencies Pager [phone] Attending/Teaching Physician Note: I saw and evaluated [...] attempt HD session tomorrow Alan Miranda MD 13 minutes of HD completed, patient moved arm over head and infiltrated venous needle, unable to recannulate, no fluid was removed, net positive 200 mLs. Images from the original note were not included. DEPARTMENT OF SURGERY DIVISION OF TRAUMA, BURN, AND CRITICAL CARE TRAUMA INTENSIVE CARE UNIT (TICU) DAILY PROGRESS NOTE Patient: Amado Tran, 59 year old, male : 1965 Admit Date: 04/30/2024 Room: [facility] Today's Date: 05/07/2024, Length of stay: [...] MLF as an inter facility transfer from [facility] s/p Fall. Per reports Pt was at a [facility] location when he exited his vehicle to assist the hospital laboratory technician in opening his vehicle door, when he stepped behind his vehicle he accidentally fell through the floor opening aprox 6ft. Pt. Reports falling straight down, negative LOC, negative head strike. Pt was unable to get up under his own strength, EMS was called and Pt was extricated via EMS/FD, immobilized and transported to [facility] ED. Imaging at OSH demonstrated a Grade [...] [facility] of [facility] at [facility]. Pt. Had CVC and A-line placed in ED and was admitted to TICU for respiratory and hemodynamic monitoring. Hospital Course: 04/30: Admitted to TICU s/p fall with B/L rib fxs, Pelvic fx's, and questionable Grade 1 splenic injury s/p fall at [facility] location. 05/01: Titrated on levophed. CBC trended. [...] CAT [facility] to [facility] for [...] line 2 x PIV on left Vitals & I/Os: 24 Hour Vitals Range: Vital sign ranges over the past 24 hours (retrieved 05/07/2024 at 7:41 AM): Tmax (24 hours): 98.5 F (36.9 C) Pulse Av.2 Min: 61 Max: 79 Systolic [...] Flow Rate (l/min) 05/07/24 0400 -- 98.4 F (36.9 C) Oral 61 -- 99 % -- -- 05/07/24 0300 -- -- -- 62 -- 100 % -- -- 05/07/24 0222 -- -- -- -- -- -- BiPAP 2 05/07/24 020 -- -- -- 63 -- 100 % -- -- 05/07/24 0100 -- -- -- 64 -- 100 % -- -- 05/07/24 0000 -- 98.2 F (36.8 C) Oral 63 -- 97 % BiPAP 2 05/06/242299 -- -- -- 66 -- 100 % -- -- 05/06/242199 -- -- -- 71 -- 100 % -- -- 05/06/242117 -- -- -- -- -- -- BiPAP 2 05/06/242099 -- -- -- 68 15 100 % -- -- 05/06/241999 -- 98.1 F (36.7 C) Oral 72 15 100 % Nasal cannula 2 05/06/24 1923 -- -- -- 71 16 100 % -- -- 05/06/24 1915 -- -- -- 67 12 100 % Nasal cannula 2 05/06/24 1900 -- -- -- 67 14 100 % -- -- 05/06/24 1800 -- -- -- 66 -- 100 % -- -- 05/06/24 1700 -- -- -- 66 -- 99 % -- -- 05/06/24 1611 -- -- -- 66 16 100 % -- -- 05/06/24 1600 -- 98.1 F (36.7 C) Oral 68 16 100 % Nasal cannula 2 05/06/24 1500 -- -- -- 66 -- 100 % -- -- 05/06/24 1400 -- -- -- 66 17 98 % -- -- 05/06/24 1350 142/57 97.8 F (36.6 C) Oral 67 17 100 % Nasal cannula 2 05/06/24 1300 -- -- -- 63 16 99 % -- -- 05/06/24 1251 120/40 97.6 F (36.4 C) Oral 61 11 98 % Nasal cannula 2 05/06/24 1236 123/45 97.6 F (36.4 C) Oral 61 14 100 % Nasal cannula [...] % -- -- 05/06/24 0800 -- 98.5 F (36.9 C) Oral 79 22 95 % Nasal cannula 2 24 Hour I&Os: In: 325 (2.3 mL/kg) Out: - (0 [...] Moves all extremities spontaneously. Lab Data: 7.1 \ 7.4 / 116 / 23.0 \ CBC: 05/07/2024: 4:20 AM 132 94 55 / \ 99 4.6 24 6.91 BMP: 05/07/2024: 4:20 [...] -- -- INR -- 1.16 1.29 Type & Screen: Type & Screen (Last result in the past 30 [...] ESRD - Nephro recs: - HD MWF (// this week) - Epo with dialysis - Continue midodrine as above - mIVF: none given renal disease - BMP/Mg/P daily - Replace electrolytes as indicated - Maintain Mg >2, K >4 - Measure strict I&O - Continue home Renvela Infectious Disease: - Afebrile, no leukocytosis - Monitor temperature and WBC for signs of infection Hematology: # Hemorrhagic shock - Hgb 7.4 from 8.3, s/p 1U PRBC (05/06), will continue to monitor - Type & Screen 05/06 - CBC daily - Maintain [...] 2 weeks at dispo - PT/OT: - detention setting once medically cleared - Will continue to follow - PM&R Consulted, appreciate recommendations - Ortho spine (05/01): [...] for final plan/recommendations. Gorge Reed MD Anesthesiology Copy Lathe Tender, PGY1 Teaching Physician Note: I saw and [...] if no significant PO Farrah Asencio MD Images from the original note were not included. Nephrology Follow-up Note Amado Tran 59 year old 314 lbs MRN/Room: [id number]/AC5- Subjective: No events No HD today. Objective: Meds: alteplase 2 mg One Time Dose folic acid 1 mg Daily [START ON 05/11/2024] folic acid 1 mg Daily vitamin D2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 05/10/24 230 methocarbamol (ROBAXIN) tablet 750 mg Oral Every 6 hours 750 mg at 05/11/24226 epoetin antione-epbx (RETACRIT) 53181 UNIT/ML injection 10,000 Units Subcutaneous Q M, W & F acetaminophen (TYLENOL) tablet 1,000 mg Oral q6h 1,000 mg at 05/11/24226 nystatin (MYCOSTATIN) 100,000 unit/g powder Topical 2x [...] 30 min before breakfast 40 mg at 05/10/24852 oxyCODONE immediate release tablet 10 mg Oral Q4H PRN 10 mg at 05/10/241622 lidocaine (LIDODERM) 4 % patch 2 Patch Transdermal Every 24 hours 2 Patch at 05/10/242111 oxyCODONE immediate release tablet 5 mg Oral Q4H PRN 5 mg at 05/10/24852 dextrose 10 % iv infusion 125 mL [...] Resource Strain: Low Risk (04/01/2024) Received from [facility] Overall Financial Resource Strain (CARDIA) Difficulty of Paying Living Expenses: Not very hard Food Insecurity: Unknown (04/30/2024) Hunger Vital Sign Worried About Running Out of Food in the Last Year: Never true Transportation Needs: Unknown (04/30/2024) PRAPARE - Transportation Lack of Transportation (Medical): No Physical Activity: Insufficiently Active (04/01/2024) Received from [facility] Exercise Vital Sign Days of Exercise per Week: 1 day Minutes of Exercise per Session: 10 min Stress: Stress Concern Present (04/01/2024) Received from [facility] [place] [employer] - Occupational Stress Questionnaire Feeling of Stress : To some extent Social Connections: Moderately Isolated (04/01/2024) Received from [facility] Social Connection and Isolation Panel [NHANES] Frequency of Communication with Friends and Family: More than three times a week Frequency of Social Gatherings with Friends and Family: More than three times a week Attends [employer] Services: Never Active Member of Clubs or Organizations: Yes Attends Club or Organization Meetings: More than 4 times per year Marital Status: Never Intimate Partner Violence: Unknown (04/30/2024) Humiliation, Afraid, Rape, and Kick questionnaire Emotionally Abused: No PHYSICAL EXAMINATION: O: Vital signs reviewed BP 132/64 Pulse 67 Temp 97.7 F (36.5 C) (Oral) Resp 27 Ht 5' 9 (1.753 m) Wt (!) 311 lb 4.6 oz (141.2 kg) SpO2 93% PF 230 L/min BMI 45.97 kg/m last BMI is undetermined because no height found and no weight found General appearance: No distress. Cooperative. In HD when seen Eyes: Pupils equal. Extraocular movements grossly intact. Neck: No thyromegaly. No lymphadenopathy. Lungs: Good breath sounds Heart: Regular rate and rhythm. Abdomen: Soft, non-tender. Extremities: mild edema. Neuro: A&Ox4 LABS No results found for: HBA1C Fingerstick Glucose (last 72 hours) (Last 10 results in the past 72 hours) Glucose 05/11/24 0801 129 Comment: Notified FRANNIE URIBE [...] CAT [facility] to [facility] for [...] least for 3-4 days. If continue oin tory riri MVI this needs to be held prior to lab testing Endocrinology is signing off. Please reach out with any questions Patient seen and case discussed with Attending Physician, Dr. Shimon Lemon MD Fellow Endocrinology Endocrinology service pager: [phone] Associated attestation - Ny Robins MD - 05/12/2024 11:33 AM EDT Teaching Physician Note: I saw and evaluated the patient with Dr. Lemon. I personally obtained the kirby and critical portions of the history and physical exam. I reviewed documentation and discussed the patient with the fellow. I agree with the fellow's medical decision making as documented in Dr Lemon's note. Ny Robins MD Division of Endocrinology Associated Order(s): IP CARDIOLOGY CONSULT Images from the original note were not included. New Patient Consult Cardiology consult 05/09/2024 12:52 PM Name: Amado Tran Room: [facility] : 1965 male 59 year old [...] MLF as an inter facility transfer from [facility] s/p Fall multiple traumatic injuries including Grade 1 splenic injury, multiple bilateral rib fractures, multiple pelvic fractures resulting from a 6 foot fall into auto mechanical bay. Course complicated by hypotension requiring multiple blood products including PRBC x3, whole blood x1, FFP x1, as well as levophed gtt. Patient is known to have paroxysmal atrial fibrillation -[id number] = 4 on amiodarone and Toprol for [...] with breakfast Apixaban 5 mg 2x Daily Tory-Riri RX 1 Tablet Daily insulin regular 4-14 Units 4x Daily AC & HS methocarbamol 750 mg Every 6 hours epoetin antione-epbx 10,000 Units Q M, W & F acetaminophen 1,000 mg q6h nystatin 2x [...] Flow Rate (l/min) 05/09/24 1200 -- 98.9 F (37.2 C) Oral 66 15 100 % Nasal cannula 1 05/09/24 1115 -- -- -- 65 14 99 % -- -- 05/09/24 1030 -- -- -- 60 17 99 % -- -- 05/09/24 1015 -- -- -- 61 20 -- Nasal cannula 1 05/09/24 1011 119/44 97.9 F (36.6 C) -- 61 17 99 % -- -- 05/09/24 1000 91/49 -- -- 65 20 99 % -- -- 05/09/24 0908 -- -- -- -- -- -- Nasal cannula 1 05/09/24 0900 -- -- -- -- -- 87 % Room air -- 05/09/24 0813 -- -- -- -- -- 99 % Nasal cannula 1 05/09/24 0800 91/42 98 F (36.7 C) Oral 62 16 100 % Nasal cannula 2 05/09/24 0700 103/64 -- -- 62 16 98 % -- -- 05/09/24 0600 96/40 -- -- 62 16 98 % -- -- 05/09/24 0500 96/41 -- -- 63 16 98 % -- -- 05/09/24 0400 112/51 98.2 F (36.8 C) Axillary 65 19 99 % Nasal cannula 2 05/09/24 0300 102/42 -- -- 67 19 100 % -- -- 05/09/24 0254 100/32 98 F (36.7 C) Axillary 67 19 99 % Nasal cannula 2 05/09/24 0253 100/32 -- -- 68 17 97 % -- -- 05/09/24 0239 94/30 98.5 F (36.9 C) -- 66 17 99 % Nasal cannula 2 05/09/24 0100 88/41 -- -- 68 16 91 % -- -- 05/09/24 0000 -- 99.5 F (37.5 C) Axillary 70 18 96 % Nasal cannula 2 05/08/242233 -- -- -- 72 12 98 % -- -- 05/08/242029 -- -- -- 75 26 97 % -- -- 05/08/241999 -- 99.4 F (37.4 C) Oral 76 18 99 % Nasal cannula 2 05/08/24 1800 -- -- -- 74 16 97 % -- -- 05/08/24 1700 -- -- -- 74 16 97 % -- -- 05/08/24 1615 -- -- -- 72 18 99 % Nasal cannula 2 05/08/24 1600 -- 97.7 F (36.5 C) Oral 73 18 99 % Nasal cannula [...] ml BP 119/44 Pulse 66 Temp 98.9 F (37.2 C) (Oral) Resp 15 Ht 5' 9 (1.753 m) Wt (!) 311 lb 4.6 oz (141.2 kg) SpO2 100% PF 100 L/min BMI 45.97 kg/m General: In no acute distress. Neuro: Alert, [...] and result): NA The ASCVD Risk score ([place] DK, et al., 2019) failed to calculate. Impression and Plan Active problems: Persistent Atrial Fibrillation [id number] = 4 RBBB Elevated TSH Recommendations: -Underlying RBBB- qTc is accepatable range -Obatin LFTs -Recommend repeating TFTs once acute illness as resolved. -Okay to continue amiodarone Olive Daniels MD Cardiovascular Fellow, PGY4 Department of Cardiovascular Diseases Heart and Vascular [place] [facility] 05/09/2024 12:52 PM Teaching Physician Note: I [...] for resumption when stable. Yocasta Hogan MD Associated Order(s): IP PSYCHIATRIC ADULT CONSULT Images from the original note were not included. PSYCHIATRY CONSULTATION-LIAISON SERVICE: PROVIDER REQUESTING CONSULT: Farrah Asencio MD CONSULTING ATTENDING: Dr. Johnson Inpatient Floor: AC5-/ 1965 IDENTIFICATION: Amado Tran is a 59 [...] MLF as an inter facility transfer from [facility] s/p Fall. Per reports Pt was at a instant oil change location when he exited his vehicle to assist the hospital laboratory technician in opening his vehicle door, when he stepped behind his vehicle he accidentally fell through the floor opening aprox 6ft. Pt. Reports falling straight down, negative LOC, negative head strike. Pt was unable to get up under his own strength, EMS was called and Pt was extricated via EMS/FD, immobilized and transported to [facility] ED. Imaging at OSH demonstrated a Grade [...] Pt was COTE scanned again here at [facility] given the absence of contrast at OSH. [...] MLF as an inter facility transfer from [facility] s/p Fall. Consulted to CL-team for medication management. Stressors / Circumstances: traumatic event. Chief Complaint/Admitting Diagnosis: admitted to TICU for respiratory and hemodynamic monitoring. Reason for Consult: medication management PER CHART REVIEW: Past psychiatric diagnoses: PAST PSY Dx: depressive disorder. Past psychiatric medications & side effects: Zoloft 100 mg PO OD and Gabapentin 100 mg at bedtime for DN Seen by a psychiatrist before? When & Why: No. Past suicidal attempts: no. Past [...] at this point -states he is from [facility] -states he never got and had multiple [...] 83 80 82 -- -- Resp: 17 17 21 -- -- Temp: -- 97.7 F (36.5 C) -- -- -- Temp src: -- Axillary -- -- -- SpO2: 100 % -- 99 % -- -- Weight: -- 311 lb 4.6 oz (141.2 kg) -- -- -- Pain Score: -- -- -- 10 9 Vital sign ranges over the past 24 hours (retrieved 05/08/2024 at 2:37 PM): Tmax (24 hours): 98.6 F (37 C) Pulse Av.7 Min: 62 Max: 83 No [...] with breakfast Apixaban 5 mg 2x Daily Tory-Riri RX 1 Tablet Daily insulin regular 4-14 Units 4x Daily AC & HS methocarbamol 750 mg Every 6 hours epoetin antione-epbx 10,000 Units Q M, W & F acetaminophen 1,000 mg q6h nystatin 2x [...] SOCIAL HISTORY: The patient was born in [facility], raised by biological parents Abuse/ trauma in childhood: no Education: High school graduate Academic performance: average service: Unknown / NA.. Current RESIDENCY: lives alone Current social SUPPORT: siblings, friends. Patient describes role of CHRISTIAN in life as unknown / NA LEGAL history: unknown or N/A Family history: none MEDICAL HISTORY: No past medical history on file. REVIEW OF SYSTEMS: Skin: no reported complaints Eyes: no reported complaints Ears/Nose/Throat: no reported complaints Respiratory: no reported complaints Cardiovascular: no reported complaints Gastrointestinal: no reported complaints Genitourinary: no reported complaints Neurologic: no reported complaints Psychiatric: Per HPI and psych ROS Hematologic/Lymphatic/Immunologic : no reported complaints Endocrine: no reported complaints [...] fair Orientation: x4 SUICIDE RISK ASSESSMENT C-SSRS [place]-Suicide Severity Rating Scale Able to complete [place]-Suicide Severity Rating Scale with Patient?: Yes 1) [...] HISTORY: uprights ASSOCIATED DIAGNOSIS: ORDERING PROVIDER: TYLER [employer] TECHNMICHELLE NOTE: Best possible, patient condition not [...] Rib fxs, worsening resp status ORDERING PROVIDER: JOSE JUAN CARPENTER TECHNOLOGISTS NOTE: Imaging limited by patient [...] ASSOCIATED DIAGNOSIS: fx ORDERING PROVIDER: VALENTE DONALDSON TECHNMICHELLE NOTE: Imaging limited by patient condition, [...] MLF as an inter facility transfer from [facility] s/p Fall. Assessment was notable for subjective [...] team. Other: Offer art therapy, music therapy, rn relief charge therapy, psychotherapy if patient amenable. Spend more bedside minutes. Patient Education: Assessment & plan was discussed, medication benefits & side effects were explained, understanding & agreement about the plan were verbalized, therapeutic alliance was established through eye contact & active listening. Thank you for the opportunity to assist in Amado Tran's care and thank you for this interesting consult. We will continue to sign off , please page us with any new concerns The patient was seen and discussed with Dr. Johnson. Assessment and plan not finalized until signed by the attending. Personally communicated above recs to primary team, Dr. Johnson via [employer] chat @ 2:37 PM David David MD PGY-2 Psychiatry 05/08/24 If patient is admitted to the hospital and psychiatric consultation is necessary, please place order in [employer] for IP Psychiatry Adult Consult and page: Weekdays 8 AM - 5 PM: [phone] Weekdays 5 PM - 11 PM, Weekends 8 AM to 8 PM: [phone] Weekdays 11 PM - 8 AM, Weekends 8 PM to 8 AM: [phone] This note was created with the assistance of speech recognition software. Associated attestation - Ryley Johnson DO - 05/09/2024 8:09 AM EDT Images from the original note were not included. Teaching Physician Note During my evaluation of [...] multidisciplinary discussions. Ryley Johnson DO Attending Psychiatrist OCCUPATIONAL THERAPY PROGRESS SUMMARY Patient seen from 1040 to 1058 on .GC 5 [place] unit for 18 minute treatment. Co-tx with [...] Dep Max Mod Min CG CS DS AR I Set-Up Cues Comment Feeding Grooming/ Hygiene [...] Guard Assist/Supervision 4 - Non = Modified [place]/Independent ASSESSMENT: Recommend further therapy services in a [...] NA = Not Assessed, I = Independent, AR = Modified Independent, Sup = Supervised, Set up = Physical Assistance for Set-up Only, Min = Minimal Assistance, Mod = Moderate Assistance, Max = Max assistance; Dep = Dependent; AROM = Active Range of Motion;PROM=Passive Range of Motion; MMT = Manual Muscle Test; Shld= Shoulder; Add = Adduction; Abd = Abduction PHYSICAL THERAPY PROGRESS SUMMARY Patient seen from 10:40am to 10:58am on GC5W unit for 18 minute treatment. Co-session with OT necessary for safe and professional assist with mobility assessment and training. SUBJECTIVE: Patient Subjective/Goals: I don't think I should today. (Re; getting out of bed due to nausea) OBJECTIVE: Appearance: Obese, manager oncology, Pulse Oximeter, Oxygen, IV, and Sequential Compression Devices (SCDs) Behavior: Awake, anxious, minimal participation with max encouragement. Pain: Site/Location: BLE's, LUE ; Pain Scale: unrated/10 Pain Relief Interventions Implemented: Positioning, Rest, and RN aware and reports patient received medication according to time schedule Mobility NA Dep Max Mod Min CG CS DS AR I Comment Roll to right sidelying x [...] With Patients permission ordered no equipment via [employer] [place] Order. If any questions contact [facility] DME Provider at [phone]. 05/06/2024 6 Clicks Basic Mobility PT Difficulty [...] ASSESSMENT: Recommend further therapy services in a Halfway Setting once medically cleared. Will continue to [...] NA = Not Assessed, I = Independent, AR = Modified Independent, Sup = Supervised, Set up = Physical Assistance for Set-up Only, Min = Minimal Assistance, Mod = Moderate Assistance, Max = Maximal assistance; Dep = Dependent; AROM = Active Range of Motion; PROM = Passive Range of Motion; MMT = Manual Muscle Test Images from the original note were not included. Plan/recommendations: 1. Start oral supplements Boost Breeze [...] 17 g packet 17 g Oral BID Tory-Riri RX tablet 1 Tablet Oral Daily 1 Tablet at 05/05/24 1213 midodrine tablet 10 mg Oral Daily PRN 10 mg at 05/05/24 1022 insulin regular (HumuLIN R) 100 UNIT/ML injection 4-14 Units Subcutaneous 4x Daily AC & HS 4 Units at 05/04/24 214 methocarbamol (ROBAXIN) tablet 750 mg Oral Every 6 hours 750 mg at 05/05/24 1528 HYDROmorphone (DILAUDID) 1 mg/mL injection 0.5 mg Intravenous Push Q2H PRN 0.5 mg at 05/04/24 1135 midodrine tablet 10 mg Oral Every 8 hours 10 mg at 05/05/24 1528 epoetin antione-epbx (RETACRIT) 06154 UNIT/ML injection 10,000 Units Subcutaneous Q M, W & F acetaminophen (TYLENOL) tablet 1,000 mg Oral [...] 200 mg Oral Daily 200 mg at 05/05/24 0920 atorvastatin (LIPITOR) tablet 40 mg Oral At Bedtime 40 mg at 05/04/242142 gabapentin (NEURONTIN) capsule 100 mg Oral At Bedtime 100 mg at 05/04/24 214 pantoprazole (PROTONIX) tablet 40 mg Oral Daily 30 min before breakfast 40 mg at 05/05/24 0920 sertraline (ZOLOFT) tablet 100 mg Oral Daily 100 mg at 05/05/24 0920 oxyCODONE immediate release tablet 10 mg Oral Q4H PRN 10 mg at 05/04/24 193 lidocaine (LIDODERM) 4 % patch 2 Patch Transdermal Every 24 hours 2 Patch at 05/04/242142 oxyCODONE immediate release tablet 5 mg Oral Q4H PRN 5 mg at 05/05/24 1528 dextrose 10 % iv infusion 125 mL [...] -- 81 89 Folate Component Ref Range & Units 1 yr ago Folate >5.8 ng/mL 4.1 Low Vitamin B12 Component Ref Range & Units 1 yr ago Vitamin B-12 180 [...] 0956 235 Comment: Notified FRANNIE URIBE MD
Vital sign ranges over the past 24 hours (retrieved 05/05/2024 at 4:22 PM): Tmax (24 hours): 98.3 F (36.8 C) Pulse Av.4 Min: 53 Max: 70 Systolic [...] and nursing notes Eyes/Nose/Mouth: NC Estimated needs: 0200-7574 kcal/d 17-22 kcal/kg [WWU=7782 kcal] 145-180 g pro/d 2-2.5 g pro/kg IBW Assessment: Pt is a 59 y.o amel PMH s/f Hyperparathyroidism, Pacemaker, ARASH, CAROL, HLD, GERD, Depression, ESRD (HD MWF, RUE AV Fistula), CKD, HTN, T2DM, Systolic HF, and atrial fibrillation on Eliquis who presented from [facility] s/p fall - found to have g1 [...] minutes Will continue to follow Kristal Barakat MS, RD [facility] Pager [phone] Evening/weekend pager 7a-7p -- [phone] Dietitian vs [employer]Tech: Dietitian and Shingle Sawyer Physical Therapy Note Attempted to see patient, however patient not available due to getting hooked up to dialysis. Will continue to follow. Ben Gtz, PT, DPT #[phone] Associated Order(s): IP OCCUPATIONAL THERAPY SERVICE REQUEST; IP OCCUPATIONAL THERAPY SERVICE REQUEST OCCUPATIONAL THERAPY INITIAL EVALUATION Patient seen from 1142 to 1201 on [facility] 5 [place] unit for 19 minutes. Co-evaluation with PT for safe handling of ICU lines/monitors and to advance mobility of medically complex patient. Reason for Admit: 59 y/o M adm s/p fall into 6 foot hole at [employer] Diagnosis: - Right L1-L3 TP Fx [...] Dep Max Mod Min CG CS DS AR I Set-Up Comment Feeding x x Eating lunch end of session Assist to open containers Grooming/Hygiene x Wash face/hands Don /doff glasses Bathing:UB x Anticipated Bathing:LB x Anticipated Dressing:UB x Don gown Dressing: LB x Don socks Toileting x Caceres Bed cote Transfers/Bed Mobility: Assistance Level Dep Max Mod Min CG CS DS AR I Set-Up Comment Toilet Transfers Bed Transfers [...] Guard Assist/Supervision 4 - Non = Modified [place]/Independent ASSESSMENT: Recommend further therapy services in a [...] the development of plan and goals. Jodee BARBOSA, OTR/L Secure chat with questions NA = Not Assessed, I = Independent, AR = Modified Independent, Sup = Supervised, Set up = Physical Assistance for Set-up Only, Min = Minimal Assistance, Mod = Moderate Assistance, Max = Max assistance; Dep = Dependent; AROM = Active Range of Motion;PROM=Passive Range of Motion; MMT = Manual Muscle Test; UB = Upper Body; LB = Lower Body PHYSICAL THERAPY ACUTE EVALUATION Referral received, chart reviewed. Order received and was accidentally DC prior to note being completed. OK for PT eval per MD. Patient seen from 11:42am to 12:01pm on GC5W unit for 19 minutes. Co-session with OT necessary for safe and professional assist with mobility assessment and training. Admit date/time: 04/30/2024 4:48 PM Reason for Admit: s/p fall into 6 foot hole at [employer] Diagnosis: - Right L1-L3 TP Fx [...] Intramedullary rodding right femoral shaft fracture (CPT 63640). 2. Percutaneous fixation posterior pelvis (CPT 24781). 3. Insertion and removal of proximal tibia skeletal traction pin (CPT 62357). 4. Exam under anesthesia pelvis (CPT 93316). Please insert a 22 modifier for all [...] it girls. 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 Does not work, does drive. Home: Lives alone in single story home. 3 steps to enter with rails. 0 steps to bedroom/bathroom. Assistance available: prn assist from friends and family Equipment available: none OBJECTIVE: Appearance: Obese, manager oncology, BP cuff, Arterial line, AV fistula, Pulse [...] With Patients permission ordered no equipment via [employer] [place] Order. If any questions contact [facility] DME Provider at [phone]. 05/04/2024 6 Clicks Basic Mobility PT Difficulty [...] 59 year old yo male admitted to [facility] s/p fall. Patient has multiple pelvic fractures, rib fractures, and left scapular fracture that is limiting mobility. Patient would benefit from PT services during acute stay Recommend further therapy services in a Halfway Setting once medically cleared. Will continue to [...] understanding and agreement with the plan. Ping Bains PT NA = Not Assessed, I = Independent, AR = Modified Independent, Sup = Supervised, Set up = Physical Assistance for Set-up Only, Min = Minimal Assistance, Mod = Moderate Assistance, Max = Max assistance; Dep = Dependent; AROM = Active Range of Motion; PROM = Passive Range of Motion; MMT = Manual Muscle Test; LE = Lower Extremity OCCUPATIONAL THERAPY Consult received and chart reviewed: Patient off the unit in the OR. Will continue to follow Derian Vargas OTR/L PHYSICAL THERAPY Consult received, chart reviewed. Plan for OR today with ortho for ORIF of R femur, acetabulum and pelvis. PT will f/u post-op. Robyn Fernández DPT Preferred secure chat Fri/Sat/Sun only Associated Order(s): IP WOUND NURSE CONSULT Images from the original note were not included. Wound Ostomy Continence (WOC) Nursing Photo Consult Reason for Photo Consult: consult order placed with a reason of WOC Reason for Consult: moisture dermatitis Assessment/Findings based on medical images provided and chart review: Patient with moisture dermatitis to his pannus, groin & breast folds. No open wounds or areas of severe breakdown observed. B/L groin Based on the medical images provided and chart review, [facility] Nursing recommendations are as follows: 1. Pannus, groin & breast folds: Clean area with soap and water prior to reapplication of product, and dry thoroughly. Apply a thin layer of Nystatin powder twice daily. Additional Interventions for Skin Integrity: off load heels use pH-balanced cleanser for skin care moisture barrier pad and protect skin exposed to any medical devices minimize the use of padding in bed to one underpad only re-consult with [facility] Nursing Team as needed SHYANNE Oliva RN, CWOCN Physical Therapy Note Attempted to see patient, however patient required OR for pelvic and femoral fx. Will continue to follow post-op for PT eval. Ben Gtz, PT, DPT #[phone] Images from the original note were not included. Orthopaedic Surgery - Spine History of Present [...] Resource Strain: Low Risk (04/01/2024) Received from [facility] Overall Financial Resource Strain (CARDIA) Difficulty of Paying Living Expenses: Not very hard Food Insecurity: Unknown (04/30/2024) Hunger Vital Sign Worried About Running Out of Food in the Last Year: Never true Transportation Needs: Unknown (04/30/2024) PRAPARE - Transportation Lack of Transportation (Medical): No Physical Activity: Insufficiently Active (04/01/2024) Received from [facility] Exercise Vital Sign Days of Exercise per Week: 1 day Minutes of Exercise per Session: 10 min Stress: Stress Concern Present (04/01/2024) Received from [facility] [place] of Occupational Health - Occupational Stress Questionnaire Feeling of Stress : To some extent Social Connections: Moderately Isolated (04/01/2024) Received from [facility] Social Connection and Isolation Panel [NHANES] Frequency of Communication with Friends and Family: More than three times a week Frequency of Social Gatherings with Friends and Family: More than three times a week Attends Jehovah'S Witness Services: Never Active Member of Clubs or [...] LPM 7.297 46.8 70 93.4 -4.0 22 10/17/24 1836 Nasal Canula 2 LPM 7.272 43.9 [...] Please obtain pre-operative labs (BMB, CBC, Coags, T&S, UA, CXR, EKG) - Hold DVT ppx [...] page ortho consult pager with urgent/emergent issues, [phone]. Ortho Team A: Dona Allred, PGY-1 Zahida Snyder, PGY-3 Ortho Team B: Juno Beebe, [...] in the resident's note. Wenceslao Johnson MD Images from the original note were not included. Orthopaedic Surgery Consult [facility] Requesting Provider / Service: ED / Trauma CC: R femoral shaft fx, R LC3, L scapular body fx HPI: Amado Tran is a 59 year old male who presents to the [facility] ED after falling into a 6 foot [...] Resource Strain: Low Risk (04/01/2024) Received from [facility] Overall Financial Resource Strain (CARDIA) Difficulty of Paying Living Expenses: Not very hard Food Insecurity: Unknown (04/30/2024) Hunger Vital Sign Worried About Running Out of Food in the Last Year: Never true Transportation Needs: Unknown (04/30/2024) PRAPARE - Transportation Lack of Transportation (Medical): No Physical Activity: Insufficiently Active (04/01/2024) Received from [facility] Exercise Vital Sign Days of Exercise per Week: 1 day Minutes of Exercise per Session: 10 min Stress: Stress Concern Present (04/01/2024) Received from [facility] [place] [facility] Occupational [facility] - Occupational Stress Questionnaire Feeling of Stress : To some extent Social Connections: Moderately Isolated (04/01/2024) Received from [facility] Social Connection and Isolation Panel [NHANES] Frequency of Communication with Friends and Family: More than three times a week Frequency of Social Gatherings with Friends and Family: More than three times a week Attends Jehovah'S Witness Services: Never Active Member of Clubs or [...] mL premix, 0.01-3 mcg/kg/min, Intravenous, Continuous, Rojelio Perea MD, Last Rate: 16 mL/hr at 05/01/24 0754, 0.06 mcg/kg/min at 05/01/24 0754 albuterol (PROVENTIL) (2.5 MG/3ML) 0.083% nebulizer solution, 2.5 mg, Nebulization, QID RT, Rojelio Perea MD, 2.5 mg at 05/01/24 0800 albuterol (PROVENTIL) (2.5 MG/3ML) 0.083% nebulizer solution, 2.5 mg, Nebulization, Q4H PRN, Rojelio Perea MD sevelamer carbonate (RENVELA) tablet, 800 mg, Oral, 3x Daily with Meals, Rojelio Perea MD, 800 mg at 05/01/24 0817 amiodarone (CORDARONE) tablet, 200 mg, Oral, Daily, Rojelio Perea MD, 200 mg at 05/01/24 0817 atorvastatin (LIPITOR) tablet, 40 mg, Oral, At Bedtime, Rojelio Perea MD gabapentin (NEURONTIN) capsule, 100 mg, Oral, At Bedtime, Rojelio Perea MD midodrine tablet, 10 mg, Oral, 2x Daily with Meals, Rojelio Perea MD, 10 mg at 05/01/24 0816 pantoprazole (PROTONIX) tablet, 40 mg, Oral, Daily 30 min before breakfast, Rojelio Perea MD, 40 mg at 05/01/24 0816 sertraline (ZOLOFT) tablet, 100 mg, Oral, Daily, Rojelio Perea MD, 100 mg at 05/01/24 0818 oxyCODONE [...] injection, 2-12 Units, Subcutaneous, Every 6 hours, Tae Thompson MD, 2 Units at 05/01/24 0418 [...] EXAM: BP 121/54 Pulse 72 Temp 97.9 F (36.6 C) (Axillary) Resp 23 Ht 5' 9 (1.753 m) Wt (!) 314 lb (142.4 kg) SpO2 98% PF 100 L/min BMI 46.37 kg/m Gen: AOx3, NAD HEENT: normocephalic atraumatic Psych: [...] Valente Donaldson, PGY-2 Orthopedic Surgery On-Call Resident [phone] (EpicChat preferred) Associated attestation - Kayode Biggs MD - 05/03/2024 2:35 PM EDT Teaching Physician Note: I saw and evaluated the patient. I personally obtained the kirby and critical portions of the history and physical exam. I reviewed the resident's documentation and discussed the patient with the resident. I agree with the resident's medical decision making as documented in the resident's note. Kayode Biggs MD Name: Amado Tran Age/sex: 59 y/o M : 1965 OCCUPATIONAL THERAPY CHART REVIEW Admit Date: 04/30/24 OT Referral Date: 04/30/24 Floor: [address] Room: [facility] Service: Trauma Reason for admit: fall [...] time. Evaluation to follow when appropriate. Jodee BARBOSA, OTR/L Secure chat with questions documented in this encounter [facility] 05-15-2024 Hospital Discharge instructions Lisa Lucas, LASHON-ASSOCIATE STORE DIRECTOR - 05/15/2024 12:38 PM EDT Discharge Instructions: Date of admission: 04/30/2024 Date of discharge: 05/15/2024 You are being discharged to a long-term facility. Follow up: - Please call to schedule your follow-up appointments - information provided separately. - You will need to follow up with: - Follow up with Cardiology at [facility] for PPM extraction. - Follow up with Ortho (Dr. Biggs) in 2-3 weeks for post-operative evaluation and suture removal. - Follow up with Ortho-Spine (Dr. Johnson) in 2 weeks - Follow up with Endocrinology in 4 weeks for repeat thyroid function tests - Will need to be off multivitamin/biotin prior - Follow up with home Security Dispatcher for dialysis - Follow up with primary care provider regarding recent admission and incidental findings - See below for information regarding contacting your primary care physician or establishing care at [facility] if you do not already have one. Wound Care and Showering/Bathing: - Okay to shower daily -- allow soap and water to run down your incisions. Do not scrub the area. - If you cannot maintain your balance in the shower, then you should not shower. Sponge baths are the best way to maintain hygiene while your are healing. - To sponge bath, wet a washcloth with soapy water and gently wash body with the washcloth. Then use a dry washcloth to wipe off. - No submerging the wound in water or pools until cleared by our office. - If you notice any increased redness swelling or drainage from your wound call our office immediately. - You may ice your injured operative extremity, which is especially useful to minimize swelling. Make sure that the ice is not in direct contact with your skin, and that the ice does not leak out of it's bag. Double-bagging ice is an effective technique. - If you begin to experience progressive and rapidly increasing pain that seems out of proportion to what you normally have been experiencing from your baseline pain after surgery/injury, or if your fingers become numb and/or turn blue and cold - you NEED TO CALL US IMMEDIATELY. Alternatively, you may come into the [facility] Emergency Department IMMEDIATELY for an emergent evaluation by the Trauma resident. Activity and Weight Bearing: - You are to be non-weight bearing in bilateral lower extremities and weight-bearing as tolerated to left upper extremity with no restrictions regarding shoulder motion. - You will maintain these restrictions while you are in rehab. Incentive Spirometer: - Continue to use your Incentive Spirometer (IS) every hour at least 5-10 times per hour. - Your goal is to reach ~1065mL on the IS. - If you notice you are not reaching your goal after multiple attempts in 1 day, please call our office. - If you are having shortness or breath or difficulty breathing, go to the emergency department. For Prevention of Blood Clots (DVT Prophylaxis): - You will need to continue taking your home Eliquis - This is to prevent blood clots from forming in your body. - Please discuss this with your primary care doctor, and with your orthopedic doctor at your follow up appointments. Pain control: - For MILD to MODERATE pain (pain 1-6 out of 10 on a pain scale) take: -- Tylenol 325 mg, 1-2 tablets every 6 hours as needed. - If you are still having pain 30 min after taking Tylenol, add: -- Motrin 400 mg, 1 tablet every 6 hours as needed. -Wait 30 minutes to 1 hour after taking Tylenol and Motrin, then reassess your pain. - If you are still having pain, and it is SEVERE pain (pain 7-10 out of 10 on pain scale) take: -- Take Oxycodone 5 mg, 1 tablet. You may take 1 tablet every 6 hours for as needed for severe pain. - It is okay to take Tylenol, Motrin, and Oxycodone together if needed. - If you are having muscle cramps or muscle spasms, take Robaxin as prescribed. - If taking Robaxin and Oxycodone, space them out by 1 hour. - Please begin to wean off of your pain medications as soon as possible. -- To do this, start taking Oxycodone every 8 hours instead of every 6, then every 12 hours, then only once per day if needed. Then stop. You may use Motrin and Tylenol until your pain is diminished enough for you to tolerate your pain. - Please do not drive within 24 hours of taking Oxycodone or any opiate medication. Update your primary care physician or establish care: Please see your primary care physician at the next available appointment for follow up. Please call either on the day of your discharge, or the day after, to make the appointment. If you are followed by a managed care company or if your insurance requires, call your physician for authorization to be seen in a specialty clinic. If you do not have a primary physician please call [phone] for guidance on finding a [facility] provider. If you have questions or concerns , if your condition worsens or you develop new symptoms please call the [facility] at [phone]. Please see your primary care physician at the next available appointment for follow up. -- It is VERY important you discuss you INCIDENTAL FINDINGS with your primary care physician. Please take the form that was given to you with your incidental findings to your primary care physician as soon as possible. The following attachments cannot be sent through Care Everywhere.Rib Fracture Discharge Instructions (Scottish)Shoulder Blade Fracture Discharge Instructions (Scottish)Acute Pain Discharge Instructions, Adult (Scottish)documented in this encounter [facility] 05-15-2024 Miscellaneous Notes Patient signed out pending CXR due to new productive cough. CXR showed [...] pulmonary edema. Dru Thomas DO Trauma Surgery HD today for 4 hours via RAVF. Tolerated tx well. Net UF 500 ml. Homeostasis of RAVF achieved after approximately 30 minutes each site. Pt reports bleeding long the last tx. Also, BFR decreased to 300 toward end of tx due to high AP. Clementine Alcantara CNP made aware. Pt received Retacrit 93034 units with HD. All HD charting via ACES paper chart. Hnad soff to Sydnee Duke RN. Brief Operative Note MAIN OR 08 Amado Tran 59 year old male Surgical Contact Serial Number: [id number] Preoperative Diagnosis: Pre-op Diagnosis * Hemorrhagic shock (HCC) [R57.8] Postoperative Diagnosis: * Hemorrhagic shock (HCC) [R57.8] Procedures: No data filed Right femur retrograde nail, open reduction and internal fixation right femur, right sacroiliac percutaneous reduction and fixation Surgeon(s): Surgeon(s): Kayode Biggs MD Staff: Scrub: Cely Foster RN Supervisor Slate Splitting Nurse: Alejo Goncalves Spray I Painter: Robi Eagle Batch Weigher: Padmini Thapa MD Anesthesia: General Anesthesiologist: John Nayak MD Brazing Machine Setter: Pam Smyth MD Specimen(s): * No specimens in log * Estimated Blood Loss: 300 cc Lines/Drains: CVC - Triple Lumen: 04/30/24 Anterior;Left;Proximal Femoral (Active) Site Assessment WNL;Dressing intact 05/02/24 0700 Proximal Port (Label #1) Capped;Patent;Positive blood return 05/02/24 0700 Medial Port (Label #3) Capped;Patent;Positive blood return 05/02/24 0700 Distal Port (Label #2) Infusing;Patent;Positive blood return 05/02/24 0700 Dressing Change Date 04/30/24 05/01/24 0400 Dressing Change Time 1825 10/18/24 0400 Cap Change Date 04/30/24 05/01/24399 Cap Change Time 18205/01/24399 Peripheral IV Access: 04/30/24 171 20 gauge Left Antecubital (Active) Site Assessment WNL;Dressing intact 05/02/24699 Infusion Status Port #1 Capped;Patent 05/02/24699 Peripheral IV Access: 04/30/24 1711 20 gauge Anterior;Left Forearm (Active) Site Assessment Dressing intact;WNL 05/02/24699 Infusion Status Port #1 Capped;Patent 05/02/24699 Temporarily Retained Foreign Object: No Findings: See [...] by Padmini Thapa MD 05/02/2024 1:06 PM Name: Amado Tran MR#: [id number] ENC#: [id number] Date of Procedure: 05/02/2024 ATTENDING SURGEON: Kayode Biggs MD SURGICAL STAFF: Scrub: Cely Foster RN Supervisor Slate Splitting Nurse: Alejo Goncalves Spray I Painter: Robi Eagle Batch Weigher: Padmini Thapa MD PREOPERATIVE DIAGNOSIS: 1. Closed, right femoral shaft fracture. 2. Multiple pelvis fractures with unstable pelvic ring. 3. Closed, left scapular body fracture POSTOPERATIVE DIAGNOSIS: 1. Closed, right femoral shaft fracture. 2. Multiple pelvis fractures with unstable pelvic ring. 3. Closed, left scapular body fracture PROCEDURE: 1. Intramedullary rodding right femoral shaft fracture (CPT 43630). 2. Percutaneous fixation posterior pelvis (CPT 14704). 3. Insertion and removal of proximal tibia skeletal traction pin (CPT 19167). 4. Exam under anesthesia pelvis (CPT 96442). Please insert a 22 modifier for all of the above codes due to increased complexity and difficulty secondary to the patient's morbid obesity, BMI of 46.4. 5. Closed treatment of left scapular body fracture without manipulation (CPT 25854) ANESTHESIA: General ESTIMATED BLOOD LOSS: 300 mL. COMPLICATIONS: None IMPLANTS USED: Implant Name Type Inv. Item Serial No. Home Care Coordinator Lot No. LRB No. Used Action NAIL 12MM 380MM FEM T2 IM EA1 [id number] - [id number] Nail Rods & Pins NAIL 12MM 380MM FEM T2 IM EA1 [id number] [place] [id number] Right 1 Implanted SCR BONE RUDY 5X90MM EA1 2361-5090S - [id number] Screw SCR BONE RUDY 5X90MM EA1 2361-5090S [place] [id number] Right 1 Implanted SCR BN 5MM 85MM LCK STRL EA1 2361-5085S - [id number] Screw SCR BN 5MM 85MM LCK STRL EA1 2361-5085S [place] [id number] Right 1 Implanted SCR BN 5MM 85MM LCK STRL EA1 2361-5085S - [id number] Screw SCR BN 5MM 85MM LCK STRL EA1 2361-5085S [place] [id number] Right 1 Implanted SCR BN 5MM 40MM T2 ALPHA LCK EA1 2360-5040S - [id number] Screw SCR BN 5MM 40MM T2 ALPHA LCK EA1 2360-5040S [place] [id number] Right 1 Implanted SCR BN 5MM 85MM LCK STRL EA1 2361-5085S - [id number] Screw SCR BN 5MM 85MM LCK STRL EA1 2361-5085S [place] [id number] Right 1 Implanted SCR BN 5MM 40MM T2 ALPHA LCK EA1 2360-5040S - [id number] Screw SCR BN 5MM 40MM T2 ALPHA LCK EA1 2360-5040S [place] [id number] Right 1 Implanted CANNULATED SCREW 8MM X 40MM X 180MM [id number] Screw [place] Right 1 Implanted WASHER FOR 6.5/8.0 SCREW EA1 [id number] - [id number] Washer WASHER FOR 6.5/8.0 SCREW EA1 [id number] [place] Right 1 Implanted SCR BN 5MM 60MM T2 ALPHA LCK EA1 [id number] - [id number] Screw SCR BN 5MM 60MM T2 ALPHA LCK EA1 2360-5060S [place] [id number] Right 1 Implanted SCR BN 5MM 70MM LCK STRL EA1 2363-0270S - [id number] Screw SCR BN 5MM 70MM LCK STRL EA1 7816-5070S [place] [id number] Right 1 Implanted INDICATION FOR SURGERY: Amado [...] removed and final fluoroscopic views demonstrated satisfactory adventist of the length, alignment and rotation of [...] portions of the procedure. Kayode Biggs MD Blood Attestation: Discussed with patient at 7:30 am ATTESTATION OF INFORMED CONSENT FOR BLOOD: The transfusion of blood and/or blood components were discussed with the patient and/or legal retail customer service representative. The risks, benefits and alternatives were reviewed. Questions regarding blood transfusions were answered. The patient /or the patient s legal retail customer service representative agree with the plan for transfusion of blood and/or blood components. 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 EP was consulted for the possible PPM retraction and reprogramming. Patients device could not be interrogated since it ran out of battery, he sees cardiology at [facility] and last saw in 11/2023 pt at [...] Patient should follow with the cardiology at [facility] for the PPM extraction. EP will sign off, pls call for any questions. Amaya Altamirano MD Cardiovascular Fellow, PGY4 Department of Cardiovascular Diseases Heart and Vascular [place] [facility] Spine uprights reviewed with staff. No acute [...] page: Ortho Team A: Dona Allred PGY1 Zahida Snyder PGY3 Ortho Team B: Tamera Brownlee PGY2 Stacy Beebe PGY2 Ortho Elective Team: Valente Donaldson PGY2 Tyler Lynn PGY3 Ortho Hand Team: Darren Rashid PGY4 Otoniel Felix PGY4 Between 5pm-7am, weekends, and holidays please page ortho consult pager with urgent/emergent issues, [phone] Images from the original note were not included. TRAUMA SERVICE PREOPERATIVE EVALUATION Division of Trauma, [...] STATUS: Full Code. TESTING ADJUNCTS Labs: 13.3 \ 11.3 / 88 / 33.6 \ CBC: 05/01/2024: 8:00 AM 135 103 32 / \ 151 5.1 24 6.42 BMP: 05/01/2024: 12:12 AM \ 1.16 / 13.0 N/A 05/01/2024: 10:10 AM [...] Rates: 2 factors: 2.4% cardiac , nonfatal AR/cardiac arrest; 3.6% AR, pulm edema, Vfib, primary cardiac arrest, complete [...] on Eliquis/apixaban with last reported dose on 10 PM. Their risk of intraoperative/postoperative bleeding secondary [...] aggregated findings and impressions. Ioana Krishnan MD [facility] Division of Trauma, Critical Care, Yu, and Emergency General Surgery Department of Surgery [facility] [phone] Case discussed with orthopedics resident who communicated with both ortho spine and ortho trauma staff, Dr. Johnson and Dr. Chu. Ultimately requested patient be sent for sitting upright spine xr's with pelvic binder still in place, taken out of traction temporarily for xrays. Orthopedics resident accompanied patient to XR to take patient out of traction. He tolerated this well. documented in this encounter [facility] 05-14-2024 Surgery Postoperative evaluation and management note POST-PROCEDURE NOTE Procedure: RUE Fistulogram With outflow angioplasty Pre-operative Diagnosis: ESRD Post-operative Diagnosis: ESRD Attending: Rojelio Gerardo MD Bog Worker: Gabbi Esquivel MD A TIME OUT was [...] full procedural details. Gabbi Esquivel MD Radiology [facility] Work Phone: 05-14-2024 Miscellaneous Notes POST-PROCEDURE NOTE Procedure: RUE Fistulogram With outflow angioplasty Pre-operative Diagnosis: ESRD Post-operative Diagnosis: ESRD Attending: Rojelio Gerardo MD Bog Worker: Gabbi Esquivel MD A TIME OUT was [...] full procedural details. Gabbi Esquivel MD Radiology documented in this encounter [facility] 05-14-2024 History and physical note MODIFIED HISTORY AND PHYSICAL: HISTORY: Procedure: Right arm fistulagram Indication: Prolonged [...] 81 mg Oral Daily 81 mg at 05/14/24926 polyethylene glycol (MIRALAX) 17 g packet 17 g Oral Daily 17 g at 05/14/24926 midodrine tablet 10 mg Oral Q M, W & F 10 mg at 05/13/24 06 insulin glargine (LANTUS SOLOSTAR/BASAGLAR KWIKPEN) 100 UNIT/ML PEN injection 8 Units Subcutaneous At Bedtime 8 Units at 05/13/242122 metoclopramide (REGLAN) 5 MG/ML injection 5 mg Intravenous Push Every 8 hours 5 mg at 05/14/24926 erythromycin base (E-MYCIN) tablet 500 mg Oral 2x Daily 500 mg at 05/14/24926 levothyroxine (SYNTHROID) tablet 50 mcg Oral Before Breakfast 50 mcg at 05/14/2454 sertraline (ZOLOFT) tablet 125 mg 125 mg Oral Daily 125 mg at 05/14/24926 folic acid 1 MG tablet 1 mg Oral Daily 1 mg at 05/14/24926 [MAR Hold] vitamin D2 ergocalciferol (DRISDOL) capsule CAPS 50,000 Units Oral Q7 Days 50,000 Units at 05/06/24 1313 cholecalciferol (VITAMIN D3) tablet 1,000 Units Oral Daily 1,000 Units at 05/14/24926 Normal consistency supplement Oral 2x Daily with Meals Given at 05/13/24 1749 Normal consistency supplement Oral Daily with breakfast Given at 05/14/24 0900 Apixaban (ELIQUIS) tablet 5 mg Oral 2x Daily 5 mg at 05/14/24926 Tory-Riri RX tablet 1 Tablet Oral Daily 1 Tablet at 05/14/24 0928 insulin regular (HumuLIN R) 100 UNIT/ML injection 4-14 Units Subcutaneous 4x Daily AC & HS 6 Units at 05/13/242120 methocarbamol (ROBAXIN) tablet 750 mg Oral Every 6 hours 750 mg at 05/14/24653 epoetin antione-epbx (RETACRIT) 75030 UNIT/ML injection 10,000 Units Subcutaneous Q M, W & F 10,000 Units at 05/13/24 1600 acetaminophen (TYLENOL) tablet 1,000 mg Oral q6h 1,000 mg at 05/14/2454 nystatin (MYCOSTATIN) 100,000 unit/g powder Topical 2x Daily Given at 05/13/242124 albuterol (PROVENTIL) (2.5 MG/3ML) 0.083% nebulizer solution 2.5 mg Nebulization QID RT 2.5 mg at 05/14/24 0752 albuterol (PROVENTIL) (2.5 MG/3ML) 0.083% nebulizer solution 2.5 mg Nebulization Q4H PRN sevelamer carbonate (RENVELA) tablet 800 mg Oral 3x Daily with Meals 800 mg at 05/14/2444 amiodarone (CORDARONE) tablet 200 mg Oral Daily [...] Directives (Living will, health care power of criminal attorney): none Patient Recent Code Status: Full Code Code Status For This Procedure: Full Code Rojelio Gerardo MD Radiology [email or web address] Work Phone: 05-14-2024 History and physical note MODIFIED HISTORY AND PHYSICAL: HISTORY: Procedure: Right arm fistulagram Indication: Prolonged [...] Intramuscular Q12H PRN 100 mg at 05/12/24 1731 senna (SENOKOT) tablet 8.6 mg Oral At Bedtime 8.6 mg at 05/13/242120 oxyCODONE immediate release tablet 10 mg Oral Q4H PRN 10 mg at 05/13/24 0532 oxyCODONE immediate release tablet 5 mg Oral Q4H PRN 5 mg at 05/14/24653 aspirin EC tablet 81 mg Oral Daily 81 mg at 05/14/24926 polyethylene glycol (MIRALAX) 17 g packet 17 g Oral Daily 17 g at 05/14/24926 midodrine tablet 10 mg Oral Q M, W & F 10 mg at 05/13/24645 insulin glargine (LANTUS SOLOSTAR/BASAGLAR KWIKPEN) 100 UNIT/ML PEN injection 8 Units Subcutaneous At Bedtime 8 Units at 05/13/242122 metoclopramide (REGLAN) 5 MG/ML injection 5 mg Intravenous Push Every 8 hours 5 mg at 05/14/24926 erythromycin base (E-MYCIN) tablet 500 mg Oral 2x Daily 500 mg at 05/14/24926 levothyroxine (SYNTHROID) tablet 50 mcg Oral Before Breakfast 50 mcg at 05/14/24653 sertraline (ZOLOFT) tablet 125 mg 125 mg Oral Daily 125 mg at 05/14/24926 folic acid 1 MG tablet 1 mg Oral Daily 1 mg at 05/14/24926 [MAR Hold] vitamin D2 ergocalciferol (DRISDOL) capsule CAPS 50,000 Units Oral Q7 Days 50,000 Units at 05/06/24 1313 cholecalciferol (VITAMIN D3) tablet 1,000 Units Oral Daily 1,000 Units at 05/14/24926 Normal consistency supplement Oral 2x Daily with Meals Given at 05/13/24 1749 Normal consistency supplement Oral Daily with breakfast Given at 05/14/24 0900 Apixaban (ELIQUIS) tablet 5 mg Oral 2x Daily 5 mg at 05/14/24926 Tory-Riri RX tablet 1 Tablet Oral Daily 1 Tablet at 05/14/2428 insulin regular (HumuLIN R) 100 UNIT/ML injection 4-14 Units Subcutaneous 4x Daily AC & HS 6 Units at 05/13/242120 methocarbamol (ROBAXIN) tablet 750 mg Oral Every 6 hours 750 mg at 05/14/24653 epoetin antione-epbx (RETACRIT) 50875 UNIT/ML injection 10,000 Units Subcutaneous Q M, W & F 10,000 Units at 05/13/24 1600 acetaminophen (TYLENOL) tablet 1,000 mg Oral q6h 1,000 mg at 05/14/24 0654 nystatin (MYCOSTATIN) 100,000 unit/g powder Topical 2x Daily Given at 05/13/242124 albuterol (PROVENTIL) (2.5 MG/3ML) 0.083% nebulizer solution 2.5 mg Nebulization QID RT 2.5 mg at 05/14/24 0752 albuterol (PROVENTIL) (2.5 MG/3ML) 0.083% nebulizer solution 2.5 mg Nebulization Q4H PRN sevelamer carbonate (RENVELA) tablet 800 mg Oral 3x Daily with Meals 800 mg at 05/14/24 0944 amiodarone (CORDARONE) tablet 200 mg Oral Daily [...] Directives (Living will, health care power of criminal attorney): none Patient Recent Code Status: Full Code Code Status For This Procedure: Full Code Rojelio Gerardo MD Radiology documented in this encounter [facility] 05-02-2024 Nurse Note Report called to 5w rn Report called to 5w rn documented in this encounter [facility] 05-02-2024 History and physical note Surgical Attestation: I have reviewed the patient's [...] page: Ortho Team A: Dona Allred PGY1 Zahida Snyder PGY3 Ortho Team B: Tamera Brownlee PGY2 Stacy Beebe PGY2 Ortho Elective Team: Valente Donaldson PGY2 Tyelr Lynn PGY3 Ortho Hand Team: Darren Rashid PGY4 Otoniel Felix PGY4 Between 5pm-7am, weekends, and holidays please page ortho consult pager with urgent/emergent issues, [phone] Surgical Attestation: I have reviewed the patient's History and Physical Examination. I have personally seen and evaluated the patient, repeating kirby portions. There is no significant interval change. Surgery is still indicated. Yes Consent reviewed and signed by patient/family: Yes Operative site verified and marked: Yes Valente Donaldson PGY-2 Orthopedic Surgery EpicChat preferred Images from the original note were not included. [facility] Department of Surgery Division of Trauma Surgery, Acute Care Surgery, Critical Care, and Yu TRAUMA SURGERY HISTORY AND PHYSICAL Amado Tran [id number] BASIC INJURY INFORMATION: Level of activation: Category 1 Trauma Mode of transport: [facility] Mechanism of injury: Fall from ground level Complicating features: Not applicable Protective measures: Not applicable Date of Injury: 04/30/2024 Time of Injury: ~1000 Patient origin: Transfer from outside facility HISTORY OF PRESENT INJURY: Amado Tran is a 59 year old male brought in by [facility] following a transfer from [facility] after a fall and stepping into a [...] No Anti-coagulant use: Yes: Eliquis (name) and 10/16 PM (date of last use) ALLERGIES: Not on File SOCIAL HISTORY: Social Determinants of Health Financial Resource Strain: Low Risk (04/01/2024) Received from [facility] Overall Financial Resource Strain (CARDIA) Difficulty of Paying Living Expenses: Not very hard Food Insecurity: No Food Insecurity (04/01/2024) Received from [facility] Hunger Vital Sign Worried About Running Out of Food in the Last Year: Never true Ran Out of Food in the Last Year: Never true Transportation Needs: No Transportation Needs (04/01/2024) Received from [facility] PRAPARE - Transportation Lack of Transportation (Medical): No Lack of Transportation (Non-Medical): No Physical Activity: Insufficiently Active (04/01/2024) Received from [facility] Exercise Vital Sign Days of Exercise per Week: 1 day Minutes of Exercise per Session: 10 min Stress: Stress Concern Present (04/01/2024) Received from [facility] [place] of Occupational Health - Occupational Stress Questionnaire Feeling of Stress : To some extent Social Connections: Moderately Isolated (04/01/2024) Received from [facility] Social Connection and Isolation Panel [NHANES] Frequency of Communication with Friends and Family: More than three times a week Frequency of Social Gatherings with Friends and Family: More than three times a week Attends Je[employer] Services: Never Active Member of Clubs or Organizations: Yes Attends Club or Organization Meetings: More than 4 times per year Marital Status: Never Received from [facility] Safety & Environment Living status: Home Primary language: Scottish Functional status: Independent Impairments: None Assistive Devices [...] Unit Type 8400 Blood Product Unit Info [id number] Status Issued Blood Product Description FFP Blood Product Code [id number] PLASMA STATUS Collection Time: 04/30/24 4:50 PM Result Value Ref Range Blood Product Unit Type 2800 Blood Product Unit Info [id number] Status Issued Blood Product Description FFP Blood Product Code [id number] RED BLOOD CELL UNIT STATUS Collection Time: 04/30/24 4:50 PM Result Value Ref Range Blood Product Unit Type 5100 Blood Product Unit Info [id number] Status Issued Blood Product Description Red Blood Cells Blood Product Code [id number] RED BLOOD CELL UNIT STATUS Collection Time: 04/30/24 4:50 PM Result Value Ref Range Blood Product Unit Type 5100 Blood Product Unit Info [id number] Status Issued Blood Product Description Red Blood Cells Blood Product Code [id number] RED BLOOD CELL UNIT STATUS Collection Time: 04/30/24 4:50 PM Result Value Ref Range Blood Product Unit Type 5100 Blood Product Unit Info [id number] Status Issued Blood Product Description Red Blood Cells Blood Product Code [id number] RED BLOOD CELL UNIT STATUS Collection Time: 04/30/24 4:50 PM Result Value Ref Range Blood Product Unit Type 5100 Blood Product Unit Info [id number] Status Issued Blood Product Description Red Blood Cells Blood Product Code [id number] RED BLOOD CELL COMPONENT Collection Time: 04/30/24 [...] 59 year old male brought in by [employer] following a transfer from [facility] after a fall and stepping into a [...] with Attending Trauma Surgeon, Dr. Giron. Juan Espinosa PA-C documented in this encounter [facility] 04-30-2024 Procedure note PROCEDURE NOTE: ARTERIAL LINE PLACEMENT Informed consent, after discussion of the risks, benefits, and alternatives to the procedure, was obtained verbally from the patient prior to procedure. The patient was identified using two patient identifiers: Yes. The H&P along with required diagnostics are available in [...] tolerated the procedure well. Juli Stuart MD PROCEDURE NOTE: CENTRAL LINE PLACEMENT Informed consent, after discussion of the risks, benefits, and alternatives to the procedure, was obtained verbally from the patient prior to procedure. The patient was identified using two patient identifiers: Yes. The H&P along with required diagnostics are available in [...] tolerated the procedure well. Juli Stuart MD documented in this encounter [facility] 04-30-2024 Emergency department Note Images from the original note were not included. EMERGENCY DEPARTMENT - VISIT NOTE HISTORY OF PRESENT ILLNESS No chief complaint on file. Family Resource Specialist: not needed - patient preferred language is Scottish. The history is provided by the Patient and EMS. Amado Tran is a 59 year old male hx of Hyperparathyroidism, Pacemaker, ARASH, CAROL, HLD, GERD, Depression, ESRD (HD MWF, RUE AV Fistula), CKD, HTN, T2DM, Systolic HF, and atrial fibrillation on Eliquis presenting to the ED for a CAT 1 after falling into a 6 foot hole. Pt was transferred from [facility] with - headstrike, - LOC, + Eliquis [...] abd and lower extremities and right arm. ------ PAST HISTORY --------- Pertinent Past History: No past medical history on file. There is no problem list on file for this patient. Pertinent Social History: ---- PHYSICAL EXAM BP (!) 156/107 Pulse (!) 113 Temp 97.5 F (36.4 C) Comment: oral Resp 18 SpO2 92% Airway: [...] Course: ED Course as of 04/30/24 2313 [facility] Apr 30, 2024 1853 COMPLETE BLOOD [...] trace hemoperitoneum. No discrete liver laceration. [NG] 185 CT HEAD W/O CONTRAST No acute intracranial abnormality. [NG] 1855 CT C-SPINE W/O CONTRAST No acute cervical spine fracture or traumatic malalignment. [NG] 185 XR CHEST AP OR PA 1 VIEW Left scapular/glenoid fracture and possible left posterior fourth through seventh rib fractures, largely obscured by overlying device. [NG] 190 CT T-SPINE/L-SPINE W/O CONTRAST Anterior tension band disruption of T11 (T11: B3). Fracture right L1-L3 transverse processes. Pelvic ring disruption through the right sacral alar extend to the right iliac wing with fracture of the right superior and inferior pubic rami. Comminuted fracture of the left scapula. Displaced posterior bilateral rib fractures [NG] 1902 pH(!): 7.272 Acidosis with normal CO2 and low O2 on 3L NC [NG] 230 ED Chart Review: I personally reviewed patients chart and found that pt was seen by 04/07/24by their PCP for a general visit with no change in medications. [NG] ED Course User Index [NG] Miles Riley, Assessment & Plan: 59-year-old male with a past medical [...] Admitted to ICU/Stepdown: TICU. Report called to PEPE Alcala (04/30/24 185) The patient has received a medical screening examination and within reasonable clinical confidence the patient was stabilized within the capabilities of the emergency department and requires admission / observation. Counseling: Spoke with the patient and discussed today s findings, in addition to providing specific details for the plan of care and expected course. They were given the opportunity to ask questions. This note was created with the assistance of speech recognition software. Miles Riley DO Associated attestation - Tae Thompson MD - 05/05/2024 5:28 PM EDT ATTENDING NOTE I saw and evaluated the patient. I personally obtained the kirby and critical portions of the history and physical exam. I reviewed the resident's documentation and discussed the patient with the resident. I agree with the resident's medical decision making as documented in the resident's note. Tae Thompson MD Pt back to trauma room 14, from [place], at this time MTP initiated at this time Pt in CT at this time Prehospital Medications: 1 U whole blood, calcium gluconate, 2 K centra, 2 units PRBC Tx from [facility] 59yo M fall splenic lac, multiple Left sided fx, pelvic fx w widening documented in this encounter [facility] 04-30-2024 History of Present illness Narrative CAT 1 Pt is a 59yo M presenting to ED via [facility] as transfer from [facility] s/p fall 6ft, +Eliquis, hypotensive. Per [facility], pt fell down a hole 6ft deep earlier today. At [facility], pt was diagnosed with multiple L rib fractures, grade 1 splenic laceration, and pelvic fracture. called pt's brother Carlos Tran [phone] to provide update on pt's injuries. Carlos is currently in [place] but is available by phone and can fly back to [place] tomorrow if needed. PLAN: Admit trauma. JERO Mccall, CLOUD ENGAGEMENT PARTNER, MA ED Hand Sign Writer documented in this encounter [facility] 04-30-2024 History and physi anais note Note Date/Time April 30, 2024 2:07pm [facility] [address] [place] [address] General Surgery H&P Signed Patient: Amado Tran MR#: [id number] : 1965 Acct:[id number] Age/Sex: 59 / M Adm Date: 4 Loc: ER Room: Type: PRE ER Attending Dr: Copies to: MD Darren Suh PA-C~ Date of Service: 04/30/2024 HPI History of Present Illness HPI: Patient is a 59-year-old male who apparently fell through an opening at an oil change facility. He is not sure how he landed. He denies loss of consciousness. Does complain of pain in the right leg and left shoulder. Patient apparently had some systolic blood pressure less than 90. Patient is brought to emergency room as a trauma alert. Patient is awake and alert. He has possible deformity of the right upper leg. Patient has multiple medical problems. He has end-stage disease on hemodialysis. He receives dialysis every Saturday and Saturday. He also has cardiac problems and is on Eliquis. I had seen him about 4 years ago for a groin abscess and subsequent follow-up int wound center. Review of Systems Eyes Eyes: Denies change in vision Cardiovascular Cardiovascular: Denies chest pain Respiratory Respiratory: Denies dyspnea Gastrointestinal Gastrointestinal: Denies abdominal pain Musculoskeletal Comments: Left shoulder and right leg pain Neurologic Comments: Denies syncope [facility] Medical History Secondary hyperparathyroidism Hx of cardiac pacemaker Other senior living (current) drug therapy Obstructive sleep apnea (adult) (pediatric) Morbid obesity Joint pain Iron deficiency anemia Hyperlipidemia, unspecified Gastro-esophageal reflux disease without esophagitis Dermatitis, unspecified Depression Dependence on renal dialysis Chronic systolic (congestive) heart failure Infection infected area between scrotum and anus that required surgery AV fistula RIGHT FOREARM Open wound of left thigh resolved Abscess posterior scalp, left groin; excision of same 12/01. Anemia ESRD (end stage renal disease) Atrial fibrillation Dialysis patient M-W-F Pacemaker Pt. reports non-functioning, put in at age 16, hasn't needed it CKD (chronic kidney disease) Hypertension Diabetes mellitus, type 2 Surgical History S/P dialysis catheter insertion History of tonsillectomy Family History Mother Malignant neoplasm of breast Father Lung cancer Stroke Brother Multiple sclerosis Legacy FamHx Relation: Brother(s) Father Cancer Legacy FamHx Problem: Diagnosed with Cancer Family history of lung cancer Mother Cancer Legacy FamHx Problem: Diagnosed with Cancer Malignant neoplasm of breast Sister Multiple sclerosis Social History Smoking Status: Never smoker Substance Abuse Comment: THC Gummies, gets from [place], no card. anuric Meds Medications and Allergies Allergies penicillin G Allergy (Unknown, Verified 03/23/24 12:37) Unknown Reaction Penicillins Adverse Reaction (Verified 03/23/24 12:37) Fainting Home Medications aspirin 81 mg tablet,delayed release (Aspir-Low) 81 mg PO DAILY A-fib 08/31/19 [History Confirmed 03/23/24] insulin NPH-regular 70-30 U-100 insulin 100 unit/mL subcutaneous pen (Novolin 70-30 FlexPen U-100 Insulin) 30 unit subcut QAM DM 08/31/19 [History Confirmed 03/23/24] pioglitazone 30 mg tablet (Actos) 30 mg PO DAILY DM 08/31/19 [History Confirmed 03/23/24] sertraline 50 mg tablet 100 mg PO DAILY 08/31/19 [History Confirmed 03/23/24] amiodarone 200 mg tablet 200 mg PO DAILY A-fib 12/31/19 [History Confirmed 03/23/24] sevelamer HCl 800 mg tablet 1,600 mg PO TIDWM ESRD 12/31/19 [History Confirmed 03/23/24] acetaminophen 500 mg tablet 500 mg PO Q6H PRN Pain 06/04/23 [History Confirmed 03/23/24] apixaban 5 mg tablet (Eliquis) 5 mg PO BID 06/04/23 [History Confirmed 03/23/24] atorvastatin 40 mg tablet 40 mg PO DAILY 06/04/23 [History Confirmed 03/23/24] docusate sodium 100 mg tablet 100 mg PO DAILY 06/04/23 [History Confirmed 03/23/24] gabapentin 100 mg tablet 100 mg PO DAILY 06/04/23 [History Confirmed 03/23/24] hydrocodone 5 mg-acetaminophen 325 mg tablet 1 tab PO Q6H PRN Pain 06/04/23 [History Confirmed 03/23/24] midodrine 10 mg tablet 10 mg PO DAILY PRN Hypotension 06/04/23 [History Confirmed 03/23/24] omeprazole 40 mg capsule,delayed release 40 mg PO DAILY 06/04/23 [History Confirmed 03/23/24] paricalcitol 5 mcg/mL intravenous solution (Zemplar) 3 mcg IV 3XW 06/04/23 [History Confirmed 03/23/24] doxycycline hyclate 100 mg capsule 100 mg PO BID 10 days #20 caps 03/23/24 [Rx Confirmed 03/23/24] Exam Physical Exam Vital Signs: Temp Pulse Resp Pulse Ox O2 Del Method 97.6 F 79 20 94 L Room Air 04/30/24 14:01 04/30/24 13:50 04/30/24 13:50 04/30/24 13:50 04/30/24 13:50 Const General: cooperative and no acute distress HEENT Head: atraumatic Eyes Pupils: PERRL Neck Neck: trachea midline Resp Other: Breath sounds present bilaterally Cardio Rate: regular rate Rhythm: regular rhythm GI Inspection: non-distended Palpation: soft and nontender Musc Other: Tender right leg and left shoulder. Neuro General: patient alert, patient awake and moves all extremities Other: Sensation intact to light touch x 4 extremities. Results - Gen. Surgery Intake and Output 24 hour I&O: Intake & Output 04/29/24 04/30/24 04/30/24 23:59 07:59 15:59 Weight 131.542 kg A&P - General Surgery (1) Status post fall: (2) Left shoulder pain: Qualifiers: Chronicity: acute Qualified Code(s): M25.512 - Pain in left shoulder (3) Right leg pain: Plan Patient currently hemodynamically stable. Imaging studies being obtained to check for fractures. Further therapy pending evaluation of possible injuries. Documented By: Sudheer Qiu MD 04/30/24 1402 Signed By: <Electronically signed by MD Sudheer Qiu> 04/30/24 1408 [facility] Work Phone: 1(481) 152-441609-24-2024 History of Present illness Narrative* Rc Crocker MD - 04/07/2024 11:11 AM EDTAssociated Problem(s): Type 2 diabetes mellitus with hyperglycemia, with long-term current use of insulin (CMS/HCC) A1C improved but BS variable. Start ozempic. * Rc Crocker MD - 04/07/2024 11:11 AM EDTAssociated Problem(s): Morbid obesity due to excess calories (CMS/HCC) Weight loss indicated. Start ozempic. * Rc Crocker MD - 04/07/2024 11:11 AM EDTAssociated Problem(s): Major depressive disorder, recurrent, moderate (HCC) (CMS/HCC) Occasional symptoms but tolerable and continue zoloft. * Rc Crocker MD - 04/07/2024 11:11 AM EDTAssociated Problem(s): Hypertensive kidney disease (CMS/HCC) BP low and continue midodrine. Follow with nephro. * Rc Crocker MD - 04/07/2024 11:10 AM EDTAssociated Problem(s): Gastroesophageal reflux disease without esophagitis Symptoms controlled with omeprazole and continue. * Rc Crocker MD - 04/07/2024 11:10 AM EDTAssociated Problem(s): Diabetic peripheral neuropathy ([facility]/HCC) Symptoms stable and continue medication. * Rc Crocker MD - 04/07/2024 11:10 AM EDTAssociated Problem(s): Dependence on renal dialysis (CMS/HCC) Follow with nephrology. * Rc Crocker MD - 04/07/2024 11:10 AM EDTAssociated Problem(s): Chronic HFrEF (heart failure with reduced ejection fraction) (CMS/HCC) Edema stable and follow with cardiology. * Rc Crocker MD - 04/07/2024 10:15 AM EDT Images from the original note were not included. Subjective Patient ID: Amado Tran is a 59 y.o. male who presents for Follow-up (Check up/Low bp). Follow up DM, HTN, depression, CHF, and neuropathy. Reports BS improved and 98- 200 but average around 130. Last A1C 6.8. Tries to eat well and stick to ADA diet. Denies signs of elevated BS such as polyuria, polyphagia or polydipsia. Checking BP PRN and often low. BP normal today. Taking medicationdaily and tolerating without side effects. On midodrine prior to dialysis. Depression stable. Mild symptoms and at times down, sad, and no motivation. Overall feels like medication is helping. Edema controlled with medication. Mild swelling at end of day and if on feet a lot. Edema improved in am and with elevation. GERD controlled with omeprazole. Denies epigastric pain or burning and not wakingup with symptoms. Neuropathy stable. Mild numbness and pain in both feet. At times feels like on fire and worse at night. Notice worse if walking and standing a lot. [place] helps but still symptoms. Review of Systems Constitutional: Negative for fatigue. Respiratory: Negative for cough, shortness of breath and wheezing. Cardiovascular: Negative for chest pain and palpitations. Gastrointestinal: Negative for abdominal pain, diarrhea, nausea and vomiting. Genitourinary: Negative for dysuria. Objective Physical Exam Constitutional: General: He is not in acute distress. Appearance: Normal appearance. HENT: Head: Normocephalic. Right Ear: Tympanic membrane and ear canal normal. Left Ear: Tympanic membrane and ear canal normal. Eyes: Extraocular Movements: Extraocular movements intact. Pupils: Pupils are equal, round, and reactive to light. Cardiovascular: Rate and Rhythm: Normal rate and regular rhythm. Heart sounds: No murmur heard. No friction rub. No gallop. Pulmonary: Breath sounds: Normal breath sounds. No wheezing, rhonchi or rales. Abdominal: General: Bowel sounds are normal. There is no distension. Palpations: Abdomen is soft. Tenderness: There is no abdominal tenderness. There is no guarding or rebound. Musculoskeletal: Left lower leg: No edema. Neurological: Mental Status: He is alert. Assessment/Plan Problem List Items Addressed This Visit Dependence on renal dialysis ([facility]) Follow with nephrology. Type 2 diabetes mellitus with hyperglycemia, with long-term current use of insulin ([facility]) - Primary A1C improved but BS variable. Start ozempic. Relevant Medications semaglutide (Ozempic, 0.25 or 0.5 MG/DOSE,) 2 MG/1.5ML solution pen-injector Diabetic peripheral neuropathy (CMS/HCC) Symptoms stable and continue medication. Major depressive disorder, recurrent, moderate (HCC) (CMS/HCC) Occasional symptoms but tolerable and continue zoloft. Hypertensive kidney disease (CMS/HCC) BP low and continue midodrine. Follow with nephro. Morbid obesity due to excess calories (CMS/HCC) Weight loss indicated. Start ozempic. Chronic HFrEF (heart failure with reduced ejection fraction) (CMS/HCC) Edema stable and follow with cardiology. Gastroesophageal reflux disease without esophagitis Symptoms controlled with omeprazole and continue. 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 Hyperlipidemia, unspecified Onychomycosis Other abnormalities of gait and mobility Pain, unspecified Constipation due to opioid therapy Abscess of left thigh Acute renal failure (CMS/HCC) Anemia of renal disease Dialysis AV fistula malfunction (CMS/HCC) Dialysis disequilibrium syndrome Diarrhea DKA (diabetic ketoacidosis) ([facility]) History of hypotension Hyponatremia Left thigh pain Leukocytosis Metabolic acidosis Nausea and vomiting Obesity Scalp abscess Cellulitis, umbilical Dermatitis, unspecified Iron deficiency anemia Joint pain Other senior living (current) drug therapy Secondary hyperparathyroidism (CMS/HCC) Family History Problem Relation Name Age of [...] in 6 months, or sooner as needed Jazmyne Denson MD paroxysmal atrial fibrillation -[id number] = 4 - (HTN, hx HF, HTN, [...] Disp: 180 tablet, Rf (more content not included)...[facility]01-05-2024 Evaluation note* Encounter Date Diagnosis Assessment Notes Treatment Notes Treatment Clinical Notes Jul, Cellulitis of umbilicus (ICD-10 - [...] Jul, Abdominal wall cellulitis (ICD-10 - L03.311) [employer] Other 12-05-2023 Evaluation note* Encounter Date Diagnosis [...] Dependence on renal dialysis (ICD-10 - Z99.2) [place] [employer] Other 06-24-2022 Evaluation note* Encounter Date Diagnosis Assessment Notes [...] to only the absolute essential needed assessments. [employer] Other Evaluation noteNo InformationNortSpecial Care Hospital [employer] Other Evaluation note* Diagnosis Onset Date Resolution Status Dialysis AV fistula malfunction [facility] Work Phone: Evaluation note* Diagnosis Onset Date Resolution Status Cellulitis, umbilical acute [facility] Work Phone: Evaluation note* Diagnosis Type 2 diabetes mellitus with hyperglycemia, with long-term current use of insulin ([facility])- Primary Hypertensive kidney disease ([facility]) Unspecified hypertensive kidney disease with chronic kidney disease stage I through stage IV, or unspecified Diabetic peripheral neuropathy ([facility]) Type II or unspecified type diabetes mellitus with neurological manifestations, not stated as uncontrolled Major depressive disorder, recurrent, moderate ([facility]) Major depressive disorder, recurrent episode, moderate Chronic HFrEF (heart failure with reduced ejection fraction) ([facility]) Morbid obesity due to excess calories ([facility]) Dependence on renal dialysis ([facility]) Renal dialysis status Gastroesophageal reflux disease without esophagitis Esophageal reflux Body mass index (BMI) 45.0-49.9, adult ([facility]) Immunodeficiency due to conditions classified elsewhere ([facility]) Diabetic peripheral neuropathy ([facility]) Type II or unspecified type diabetes mellitus with neurological manifestations, not stated as uncontrolled [facility] Diagnosis Hemorrhagic shock (HCC)- Primary Other shock without mention of trauma Hemorrhagic shock (HCC) Other shock without mention of trauma Other fracture of right femur, initial encounter for closed fracture Closed fracture of multiple ribs of left side, initial encounter Unspecified right bundle-branch block Abnormal electrocardiogram (ECG) (EKG) Unspecified atrial fibrillation ([facility]) Acute post-operative pain Acute pain due to trauma Acute blood loss anemia Acute posthemorrhagic anemia Closed displaced spiral fracture of shaft of right femur Closed fracture of shaft of femur Multiple fractures of pelvis with unstable disruption of pelvic ring, initial encounter for closed fracture (HCC) Closed displaced fracture of body of left scapula Closed fracture of other part of scapula Acute pain due to trauma Acute post-operative pain Fracture of right femur Closed fracture of unspecified part of femur Fracture of multiple ribs of both sides Acute blood loss anemia Acute posthemorrhagic anemia Fall from height of greater than 3 feet Closed fracture of transverse process of lumbar vertebra ([facility]) Bilateral pulmonary contusion Pleural effusion on right Unspecified pleural effusion [facility] Diagnosis Multiple closed fractures of ribs of both sides with routine healing, subsequent encounter- Primary Fall from height of greater than 3 feet Closed displaced fracture of body of left scapula, initial encounter- Primary Multiple fractures of pelvis with unstable disruption of pelvic ring, initial encounter for closed fracture (HCC) Closed displaced spiral fracture of shaft of right femur with routine healing, subsequent encounter [facility]* Diagnosis Diabetic peripheral neuropathy ([facility]) Type II or unspecified type diabetes mellitus with neurological manifestations, not stated as uncontrolled [facility]* Diagnosis Aftercare following surgery of the musculoskeletal system- Primary Aftercare following surgery of the musculoskeletal system, NEC Closed displaced fracture of body of left scapula, initial encounter Multiple fractures of pelvis with unstable disruption of pelvic ring, initial encounter for closed fracture (HCC) Closed displaced spiral fracture of shaft of right femur with routine healing, subsequent encounter [facility]* Diagnosis Closed fracture of transverse process of lumbar vertebra with routine healing, subsequent encounter- Primary Closed displaced fracture of body of left scapula, initial encounter- Primary Multiple fractures of pelvis with unstable disruption of pelvic ring, initial encounter for closed fracture (HCC) Closed displaced spiral fracture of shaft of right femur with routine healing, subsequent encounter [facility]* Diagnosis Diabetic peripheral neuropathy ([facility]) Type II or unspecified type diabetes mellitus with neurological manifestations, not stated as uncontrolled [facility] Diagnosis Type 2 diabetes mellitus with hyperglycemia, with long-term current use of insulin ([facility])- Primary Hypertensive kidney disease ([facility]) Unspecified hypertensive kidney disease with chronic kidney disease stage I through stage IV, or unspecified Diabetic peripheral neuropathy ([facility]) Type II or unspecified type diabetes mellitus with neurological manifestations, not stated as uncontrolled Major depressive disorder, recurrent, moderate ([facility]) Major depressive disorder, recurrent episode, moderate Chronic HFrEF (heart failure with reduced ejection fraction) ([facility]) Morbid obesity due to excess calories ([facility]) Dependence on renal dialysis ([facility]) Renal dialysis status Gastroesophageal reflux disease without esophagitis Esophageal reflux Body mass index (BMI) 45.0-49.9, adult ([facility] [facility] Immunodeficiency due to conditions classified elsewhere ([facility]) documented in this encounter [facility] HealthcareEvaluation note* Diagnosis Type 2 diabetes mellitus with hyperglycemia, with long-term current use of insulin ([facility])- Primary Hypertensive kidney disease ([facility]) Unspecified hypertensive kidney disease with chronic kidney disease stage I through stage IV, or unspecified Diabetic peripheral neuropathy ([facility]) Type II or unspecified type diabetes mellitus with neurological manifestations, not stated as uncontrolled Major depressive disorder, recurrent, moderate ([facility]) Major depressive disorder, recurrent episode, moderate Chronic HFrEF (heart failure with reduced ejection fraction) ([facility]) Morbid obesity due to excess calories ([facility]) Dependence on renal dialysis ([facility]) Renal dialysis status Gastroesophageal reflux disease without esophagitis Esophageal reflux Body mass index (BMI) 45.0-49.9, adult ([facility]) Immunodeficiency due to conditions classified elsewhere ([facility]) Diabetic peripheral neuropathy ([facility]) Type II or unspecified type diabetes mellitus with neurological manifestations, not stated as uncontrolled documented in this encounter [facility] HealthcareEvaluation note* Diagnosis Type 2 diabetes mellitus with hyperglycemia, with long-term current use of insulin ([facility])- Primary Hypertensive kidney disease ([facility]) Unspecified hypertensive kidney disease with chronic kidney disease stage I through stage IV, or unspecified Diabetic peripheral neuropathy ([facility]) Type II or unspecified type diabetes mellitus with neurological manifestations, not stated as uncontrolled Major depressive disorder, recurrent, moderate ([facility]) Major depressive disorder, recurrent episode, moderate Chronic HFrEF (heart failure with reduced ejection fraction) ([facility]) Morbid obesity due to excess calories ([facility]) Dependence on renal dialysis ([facility]) Renal dialysis status Gastroesophageal reflux disease without esophagitis Esophageal reflux Body mass index (BMI) 45.0-49.9, adult ([facility] Immunodeficiency due to conditions classified elsewhere ([facility]) Type 2 diabetes mellitus with hyperglycemia, with long-term current use of insulin ([facility] Primary Hypertensive kidney disease ([facility]) Unspecified hypertensive kidney disease with chronic kidney disease stage I through stage IV, or unspecified Diabetic peripheral neuropathy ([facility]) Type II or unspecified type diabetes mellitus with neurological manifestations, not stated as uncontrolled Pressure injury of left buttock, unstageable ([facility]) Chronic HFrEF (heart failure with reduced ejection fraction) ([facility] End-stage renal disease ([facility]) Class 3 severe obesity due to excess calories with serious comorbidity and body mass index (BMI) of 40.0 to 44.9 in adult ([facility]) Type 2 diabetes mellitus with diabetic chronic kidney disease ([facility]) documented in this encounter [facility] HealthcareEvaluation note* Diagnosis Type 2 diabetes mellitus with hyperglycemia, with long-term current use of insulin ([facility])- Primary Hypertensive kidney disease ([facility]) Unspecified hypertensive kidney disease with chronic kidney disease stage I through stage IV, or unspecified Diabetic peripheral neuropathy ([facility]) Type II or unspecified type diabetes mellitus with neurological manifestations, not stated as uncontrolled Major depressive disorder, recurrent, moderate ([facility]) Major depressive disorder, recurrent episode, moderate Chronic HFrEF (heart failure with reduced ejection fraction) ([facility]) Morbid obesity due to excess calories ([facility]) Dependence on renal dialysis ([facility]) Renal dialysis status Gastroesophageal reflux disease without esophagitis Esophageal reflux Body mass index (BMI) 45.0-49.9, adult ([facility]) Immunodeficiency due to conditions classified elsewhere ([facility]) Type 2 diabetes mellitus with hyperglycemia, with long-term current use of insulin ([facility])- Primary Hypertensive kidney disease ([facility]) Unspecified hypertensive kidney disease with chronic kidney disease stage I through stage IV, or unspecified Diabetic peripheral neuropathy ([facility]) Type II or unspecified type diabetes mellitus with neurological manifestations, not stated as uncontrolled Pressure injury of left buttock, unstageable ([facility] Chronic HFrEF (heart failure with reduced ejection fraction) ([facility] End-stage renal disease ([facility]) Class 3 severe obesity due to excess calories with serious comorbidity and body mass index (BMI) of 40.0 to 44.9 in adult Type 2 diabetes mellitus with diabetic chronic kidney disease ([facility]) Diabetic peripheral neuropathy ([facility]) Type II or unspecified type diabetes mellitus with neurological manifestations, not stated as uncontrolled Constipation due to opioid therapy documented in this encounter [facility] HealthcareEvaluation note* Diagnosis Type 2 diabetes mellitus with hyperglycemia, with long-term current use of insulin ([facility] Primary Hypertensive kidney disease ([facility]) Unspecified hypertensive kidney disease with chronic kidney disease stage I through stage IV, or unspecified Diabetic peripheral neuropathy ([facility]) Type II or unspecified type diabetes mellitus with neurological manifestations, not stated as uncontrolled Major depressive disorder, recurrent, moderate ([facility]) Major depressive disorder, recurrent episode, moderate Chronic HFrEF (heart failure with reduced ejection fraction) ([facility]) Morbid obesity due to excess calories ([facility]) Dependence on renal dialysis ([facility]) Renal dialysis status Gastroesophageal reflux disease without esophagitis Esophageal reflux Body mass index (BMI) 45.0-49.9, adult ([facility]) Immunodeficiency due to conditions classified elsewhere ([facility]) Type 2 diabetes mellitus with hyperglycemia, with long-term current use of insulin ([facility] Primary Hypertensive kidney disease ([facility]) Unspecified hypertensive kidney disease with chronic kidney disease stage I through stage IV, or unspecified Diabetic peripheral neuropathy ([facility]) Type II or unspecified type diabetes mellitus with neurological manifestations, not stated as uncontrolled Pressure injury of left buttock, unstageable ([facility] Chronic HFrEF (heart failure with reduced ejection fraction) ([facility] End-stage renal disease ([facility]) Class 3 severe obesity due to excess calories with serious comorbidity and body mass index (BMI) of 40.0 to 44.9 in adult Type 2 diabetes mellitus with diabetic chronic kidney disease ([facility]) Diabetic peripheral neuropathy ([facility]) Type II or unspecified type diabetes mellitus with neurological manifestations, not stated as uncontrolled documented in this encounter [facility] HealthcareEvaluation note* Diagnosis Type 2 diabetes mellitus with hyperglycemia, with long-term current use of insulin ([facility])- Primary Hypertensive kidney disease ([facility]) Unspecified hypertensive kidney disease with chronic kidney disease stage I through stage IV, or unspecified Diabetic peripheral neuropathy ([facility]) Type II or unspecified type diabetes mellitus with neurological manifestations, not stated as uncontrolled Major depressive disorder, recurrent, moderate ([facility]) Major depressive disorder, recurrent episode, moderate Chronic HFrEF (heart failure with reduced ejection fraction) ([facility]) Morbid obesity due to excess calories ([facility]) Dependence on renal dialysis ([facility]) Renal dialysis status Gastroesophageal reflux disease without esophagitis Esophageal reflux Body mass index (BMI) 45.0-49.9, adult ([facility]) Immunodeficiency due to conditions classified elsewhere ([facility]) Type 2 diabetes mellitus with hyperglycemia, with long-term current use of insulin ([facility])- Primary Hypertensive kidney disease ([facility]) Unspecified hypertensive kidney disease with chronic kidney disease stage I through stage IV, or unspecified Diabetic peripheral neuropathy ([facility]) Type II or unspecified type diabetes mellitus with neurological manifestations, not stated as uncontrolled Pressure injury of left buttock, unstageable ([facility]) Chronic HFrEF (heart failure with reduced ejection fraction) ([facility] End-stage renal disease ([facility]) Class 3 severe obesity due to excess calories with serious comorbidity and body mass index (BMI) of 40.0 to 44.9 in adult Type 2 diabetes mellitus with diabetic chronic kidney disease ([facility]) Type 2 diabetes mellitus with hyperglycemia, with long-term current use of insulin ([facility])- Primary Hypertensive kidney disease ([facility]) Unspecified hypertensive kidney disease with chronic kidney disease stage I through stage IV, or unspecified Diabetic peripheral neuropathy ([facility]) Type II or unspecified type diabetes mellitus with neurological manifestations, not stated as uncontrolled Paroxysmal atrial fibrillation ([facility]) Atrial fibrillation Chronic HFrEF (heart failure with reduced ejection fraction) ([facility]) Adult hypothyroidism ([facility]) Unspecified hypothyroidism Oophoritis Salpingitis and oophoritis not specified as acute, subacute, or chronic documented in this encounter [facility] HealthcareEvaluation note* Diagnosis Type 2 diabetes mellitus with hyperglycemia, with long-term current use of insulin ([facility])- Primary Hypertensive kidney disease Unspecified hypertensive kidney disease with chronic kidney disease stage I through stage IV, or unspecified Diabetic peripheral neuropathy ([facility]) Type II or unspecified type diabetes mellitus with neurological manifestations, not stated as uncontrolled Major depressive disorder, recurrent, moderate ([facility]) Major depressive disorder, recurrent episode, moderate Chronic HFrEF (heart failure with reduced ejection fraction) ([facility]) Morbid obesity due to excess calories ([facility] Dependence on renal dialysis Renal dialysis status Gastroesophageal reflux disease without esophagitis Esophageal reflux Body mass index (BMI) 45.0-49.9, adult ([facility]) Immunodeficiency due to conditions classified elsewhere ([facility]) Type 2 diabetes mellitus with hyperglycemia, with long-term current use of insulin ([facility])- Primary Hypertensive kidney disease Unspecified hypertensive kidney disease with chronic kidney disease stage I through stage IV, or unspecified Diabetic peripheral neuropathy ([facility]) Type II or unspecified type diabetes mellitus with neurological manifestations, not stated as uncontrolled Pressure injury of left buttock, unstageable ([facility]) Chronic HFrEF (heart failure with reduced ejection fraction) ([facility]) End-stage renal disease ([facility]) Class 3 severe obesity due to excess calories with serious comorbidity and body mass index (BMI) of 40.0 to 44.9 in adult ([facility]) Type 2 diabetes mellitus with diabetic chronic kidney disease ([facility]) Type 2 diabetes mellitus with hyperglycemia, with long-term current use of insulin ([facility])- Primary Hypertensive kidney disease Unspecified hypertensive kidney disease with chronic kidney disease stage I through stage IV, or unspecified Diabetic peripheral neuropathy ([facility]) Type II or unspecified type diabetes mellitus with neurological manifestations, not stated as uncontrolled Paroxysmal atrial fibrillation ([facility]) Atrial fibrillation Chronic HFrEF (heart failure with reduced ejection fraction) ([facility]) Adult hypothyroidism Unspecified hypothyroidism Oophoritis Salpingitis and oophoritis not specified as acute, subacute, or chronic Diabetic peripheral neuropathy (HCC) Type II or unspecified type diabetes mellitus with neurological manifestations, not stated as uncontrolled documented in this encounter [facility] HealthcareEvaluation note* Diagnosis Type 2 diabetes mellitus with hyperglycemia, with long-term current use of insulin ([facility])- Primary Hypertensive kidney disease Unspecified hypertensive kidney disease with chronic kidney disease stage I through stage IV, or unspecified Diabetic peripheral neuropathy ([facility]) Type II or unspecified type diabetes mellitus with neurological manifestations, not stated as uncontrolled Major depressive disorder, recurrent, moderate ([facility]) Major depressive disorder, recurrent episode, moderate Chronic HFrEF (heart failure with reduced ejection fraction) ([facility]) Morbid obesity due to excess calories ([facility]) Dependence on renal dialysis Renal dialysis status Gastroesophageal reflux disease without esophagitis Esophageal reflux Body mass index (BMI) 45.0-49.9, adult ([facility]) Immunodeficiency due to conditions classified elsewhere ([facility]) Type 2 diabetes mellitus with hyperglycemia, with long-term current use of insulin ([facility])- Primary Hypertensive kidney disease Unspecified hypertensive kidney disease with chronic kidney disease stage I through stage IV, or unspecified Diabetic peripheral neuropathy ([facility]) Type II or unspecified type diabetes mellitus with neurological manifestations, not stated as uncontrolled Pressure injury of left buttock, unstageable ([facility]) Chronic HFrEF (heart failure with reduced ejection fraction) ([facility]) End-stage renal disease ([facility]) Class 3 severe obesity due to excess calories with serious comorbidity and body mass index (BMI) of 40.0 to 44.9 in adult ([facility]) Type 2 diabetes mellitus with diabetic chronic kidney disease ([facility]) Type 2 diabetes mellitus with hyperglycemia, with long-term current use of insulin ([facility])- Primary Hypertensive kidney disease Unspecified hypertensive kidney disease with chronic kidney disease stage I through stage IV, or unspecified Diabetic peripheral neuropathy (HCC) Type II or unspecified type diabetes mellitus with neurological manifestations, not stated as uncontrolled Paroxysmal atrial fibrillation (HCC) Atrial fibrillation Chronic HFrEF (heart failure with reduced ejection fraction) ([facility]) Adult hypothyroidism Unspecified hypothyroidism Oophoritis Salpingitis and oophoritis not specified as acute, subacute, or chronic Diabetic peripheral neuropathy (HCC) Type II or unspecified type diabetes mellitus with neurological manifestations, not stated as uncontrolled documented in this encounter [facility]History and physical note Author Roe Almaraz [facility] February 22, 2022 2:34pm Note Date/Time February 22, 2022 2: 34pm [facility] [address] [place] [address] Vascular Surgery H&P Signed Patient: Amado Tran MR#: [id number] : 1965 Acct:[id number] Age/Sex: 57 / M Adm Date: 2 Loc: Room: Type: [facility] Attending Dr: Roe Almaraz MD Copies to: [...] 09/21/21] hydrocodone 5 mg-acetaminophen 325 mg tablet ([place]) 1 tab PO Q8H PRN pain 10 [...] signed by MD Roe Almaraz> 02/22/22 1434 [facility] Work Phone: [facility] general Narrative - Reported* Type Description Date Medical History type II diabetes Medical History hypertension Medical History depression Medical History pacemaker at the age of 16 Medical History joint pain Medical History ESRD Medical History morbid obesity Medical History Atrial fibrillation Surgical History pacemaker Surgical History tonsillectomy Surgical History Rt arm Anticubital AVF 0 Hospitalization History syncope Hospitalization History tonsillectomy Hospitalization History pacemaker [employer] Other [employer] general Narrative - Reported* Type Description Date Medical History type II diabetes Medical History hypertension Medical History depression Medical History pacemaker at the age of 16 Medical History joint pain Medical History ESRD Medical History morbid obesity Medical History Atrial fibrillation Surgical History Problem Title : Card iac Pacemaker Insertion, Problem Status : Active, Hospitalization History syncope Hospitalization History tonsillectomy Hospitalization History pacemaker [employer] Other [employer] general Narrative - Reported* Type Description Date [...] syncope Hospitalization History tonsillectomy Hospitalization History pacemaker [employer] Other history general Narrative - Reported* Type Description Date Medical History type II diabetes Medical History hypertension Medical History depression Medical History pacemaker at the age of 16 Medical History joint pain Medical History ESRD Medical History morbid obesity Medical History Atrial fibrillation Medical History DIALYSIS AT [facility], [place], [facility] Surgical History pacemaker Surgical History tonsillectomy Surgical History Rt arm Anticubital AVF 0 Surgical History 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 Surgical History groin abcess 07/2022 Hospitalization History syncope Hospitalization History tonsillectomy Hospitalization History pacemaker Hospitalization History INFECTIONS 07/2022 [employer] Other InstructionsNot on filedocumented in this encounter [facility] SystemReason for referral (narrative)* Tests/Procedures (Urgent) - Pending Review Specialty Diagnoses / Procedures Referred By Contac t Referred To Contact Cardiovascular Testing Diagnoses Unspecified right bundle-branch block Abnormal electrocardiogram (ECG) (EKG) Guillermo Giron MD [address] [place] [address] [facility] CARD NON INVASIVE [address] [place] [address] Referral ID Status Reason Start Date Expiration Date V isits Requested Visits Authorized [id number] Pending Review 05/09/2024 05/09/2025 1 1 Scheduling Instructions 1. Take your medicines as prescribed by your doctor. (If you take a water pill , do not take it the morning of the test. You may take it when you return home). 2. You may eat meals and drink fluids at your normal times. 3. This test takes approximately one hour. 4. Please call the [facility] at [phone] (BEAT) if you are unable to keep your appointment. Question Answer Insert IV access & flush with 3mL of 0.9% sodium chloride PRN to keep patent IF IV placement is required for this exam? Yes Is this being ordered for a patient starting, undergoing or evaluating chemotherapy? No Comments Insert IV access & flush with 3ml of 0.9% sodium chloride PRN to keep patent, if not already present for LV contrast with Definity and/or saline contrast. Please indicate height and weight if it does not appear below. Blood pressure 91/42, pulse 62, temperature 98.2 F (36.8 C), temperature source Axillary, resp. rate 16, height 5' 9 (1.753 m), weight (!) 311 lb 4.6 oz (141.2 kg), SpO2 99%, peak flow 100 L/min. TRAUMA: Fall 6 ft multiple fractures. hypotensive @PROBHOSP@ [facility] Summary Purpose Family History Relationship Condition Age at Onset Recorded Date/T [...] Unknown sister Multiple sclerosis Unknown Advance Directives Date Activated Date Inactivated Comments 05/20/2024 12:57 PM 05/28/2024 7:27 PM Date Activated Date Inactivated Comments 07/22/2022 7:21 PM 08/03/2022 7:53 AM Date Activated Date Inactivated Comments 04/30/2024 8:31 PM 05/15/2024 11:43 PM Question Answer Comments Documentation of decision pr ocess for this code status: Discussed with patient or surrogate. This is the code status chosen by the patient/surrogate. Advance Directive Response Recorded Date/ Time Advance Directives No June 6:37pm Advance Directive Response Recorded Date/ Time Advance Directives No June 5:37pm Date Activated Date Inactivated Comments 04/30/2024 8:31 PM Question Answer Comments Documentation of decision pr ocess for this code status: Discussed with patient or surrogate. This is the code status chosen by the patient/surrogate. Date Activated Date Inactivated Comments 04/30/2024 8:31 PM Date Activated Date Inactivated Comments 04/30/2024 8:31 PM 05/15/2024 11:43 PM Date Activated Date Inactivated Comments 05/20/2024 12:57 PM Assessments No Assessments Information AvailableNo Assessments Information AvailableNo Assessments Information Available Chief Complaint and Reason for Visit Chief Complaint ESRD Reason for Visit Dialysis AV fistula malfunction Chief Complaint pos infection in [employer] [employer] [facility] Reason for Visit Cellulitis, umbilica l Chief Complaint pos infection in [facility] Cellulitis of umbilicus Reason for Visit Cellulitis, umbilica l Chief Complaint pos infection in [employer] [facility] Reason for Visit Cellulitis, umbilica l Additional Source Comments (unrecognized sect ion and content) No Status Records FoundNo Status Records FoundNo Status Records FoundNo Status Records FoundNo Status Records FoundNo Status Records FoundNo Status Records FoundNo Status Records Found INFORMATION SOURCE (unrecogn ized section and content) DATE CREATED AUTHOR 01/06/2018 [facility] DATE CREATED AUTHOR AUTHOR'S ORGANIZ ATION 01/30/2022 [facility] DATE CREATED AUTHOR AUTHOR'S ORGANIZ ATION 05/16/2024 [facility] DATE CREATED AUTHOR AUTHOR'S ORGANIZ ATION 06/27/2024 [facility] DATE CREATED AUTHOR AUTHOR'S ORGANIZ ATION 07/16/2024 [facility] DATE CREATED AUTHOR AUTHOR'S ORGANIZ ATION 12/03/2024 [facility] DATE CREATED AUTHOR AUTHOR'S ORGANIZ ATION 12/11/2024 [facility] EPIC DATE CREATED AUTHOR AUTHOR'S ORGANIZ ATION 01/02/2025 [facility] REASON FOR VISIT (unrecogniz ed section and content) Reason Onset Date Comments Med Refill 01/28/2025 Reason Comments Med Change Request Reason Onset Date Comments Med Refill 12/29/2024 Reason Comments Follow-up 3MHand numbness/ war tBelly button bloody/ smelly Thyroid Problem Reason Onset Date Comments Med Refill 11/26/2024 Reason Onset Date Comments Med Refill 10/29/2024 Reason Comments Follow-up F[facility] Reason Onset Date Comments Med Refill 09/02/2024 Reason Onset Date Comments infection in right extremity 05/23/2024 Reason Comments Follow-up Check upLow bp Reason Onset Date Comments Med Refill 03/02/2024 Reason Onset Date Comments Med Refill 04/01/2024 Reason Comments Hospital follow-up Multiple fractures Specialty Diagnoses / Procedures Referred By Sravanthi fields Referred To Contact Hospital Medicine Diagnoses TRAUMA: Fall 6 ft multiple fractures. hypotensive Procedures Rojelio Schmidt MD [facility] [place] [address] [employer] [address] [place] [address] Phone: [phone] Referral ID Status Reason Start Date Expiration Date Visits Re quested Visits Authorized [id number] 3 3 Reason Onset Date Comments Med Refill 04/30/2024 Reason Comments Trauma/complex Medical Situation SPOT UNDER ABDOMEN AND INSIDE NAVAL POSS ABSCESS2 WK F/U FISTULAProblemsLEFT EAR [...] Team Status: Inactive Member Role Status Dates Tiesha George NP-C Attending Provider Active Team Status: Inactive Member Role Status Dates Zahida Mahan APRN Attending Provider Active Start: March 23, 2024 End: March 23, 2024 Starter Mechanic Relationship Specialty Start Date End Date Rc Crocker MD [address] [place] [address] PCP - General Family Medicine 10/31/23 Team Status: Active Member Role Status Dates PHYSICIAN NO FAMILY Primary Care Provider Active Team Status: Active Member Role Status Dates Yunier Decker MD Attending Provider Active Start : March 09, 2024 Team Status: Active Member Role Status Dates Yunier Decker MD Attending Provider Active Start : April 08, 2024 Team Status: Inactive Member Role Status Dates Darren Ernandez PA-C Emergency Provider Active Start: April 30, 2024 End: April 30, 2024 PHYSICIAN NO FAMILY Primary Care Provider Active Start: April 30, 2024 End: April 30, 2024 Starter Mechanic Relationship Specialty Start Date End Date Rc Crocker MD [address] [place] [address] PCP - General Family Medicine 10/31/23 Starter Mechanic Relationship Specialty Start Date End Date Rc Crocker MD [address] [place] [phone] PCP - General Family Medicine 10/31/23 Starter Mechanic Relationship Specialty Start Date End Date Rc Crocker MD [address] [place] [address] PCP - General Family Medicine 10/31/23 Starter Mechanic Relationship Specialty Start Date End Date Rc Crocker MD [address] [place] [address] PCP - General Family Medicine 10/31/23 Starter Mechanic Relationship Specialty Start Date End Date Rc Crocker MD [address] [place] [phone] PCP - General Family Medicine 10/31/23 Starter Mechanic Relationship Specialty Start Date End Date Rc Crocker MD PCP - General 05/15/17 Starter Mechanic Relationship Specialty Start Date End Date Rc Crocker MD [address] [place] [phone] PCP - General Family Medicine 10/31/23 Starter Mechanic Relationship Specialty Start Date End Date Rc Crocker MD [address] [place] [address] PCP - General Family Medicine 10/31/23 Starter Mechanic Relationship Specialty Start Date End Date Rc Crocker MD [address] [place] [phone] PCP - General Family Medicine 10/31/23 Starter Mechanic Relationship Specialty Start Date End Date Rc Crocker MD [address] [place] [phone] PCP - General Family Medicine 10/31/23 Starter Mechanic Relationship Specialty Start Date End Date Rc Crocker MD [address] [place] [address] PCP - General Family Medicine 10/31/23 Starter Mechanic Relationship Specialty Start Date End Date Rc Crocker MD [address] [place] [phone] PCP - General Family Medicine 10/31/23 Starter Mechanic Relationship Specialty Start Date End Date Rc Crocker MD [address] [place] [address] PCP - General Family Medicine 10/31/23 Starter Mechanic Relationship Specialty Start Date End Date Rc Crocker MD [address] [place] [phone] PCP - General Family Medicine 10/31/23 Starter Mechanic Relationship Specialty Start Date End Date Rc Crocker MD [address] [place] [phone] PCP - General Family Medicine 10/31/23 Starter Mechanic Relationship Specialty Start Date End Date Rc Crocker MD [address] [place] [address] PCP - General Family Medicine 10/31/23 Goals (unrecognized section and content) Goals may be documented in a n alternate section Scheduled Active and Recently Administ ered Medications (unrecognized section and content) Medication Order 05/13/2024 05/14/2024 05/15/2024 acetaminophen (TYLENOL) tablet 1,000 mg, Oral, Every 6 hours, First dose (after last modification) on 05/02/24 at 1130, Until Discontinued, Post-op 0219 (Hold/Not Given - Provider: Laverne Serrano RN - Reason: Patient refused)0532 (Given - Provider: Laverne Serrano RN)1100 (Hold/Not Given - Provider: Tegan Duke RN - Reason: Clinical contraindications - Comment: dialysis at 12pm)1747 (Given - Provider: Tegan Duke RN) 0133 (Given - Provider: El Fonseca RN)0654 (Given - Provider: El Fonseca RN)1329 (Given - Provider: Yulisa Bass RN)2000 (Hold/Not Given - Provider: El Fonseca RN - Reason: Not indicated)2205 (Given - Provider: El Fonseca RN) 0340 (Given - Provider: El Fonseca RN)0822 (Given - Provider: Nita Camarena RN)1805 (Given - Provider: Nita Camarena RN)2200 (Due - Provider: Lynn Clarke RN) albuterol (PROVENTIL) (2.5 MG/3ML) 0.083% nebulizer solution 2.5 mg, Nebulization, 4 TIMES DAILY RT, First dose (after last modification) on Sat05/01/24 at 0800, Until Discontinued, RT Warp Changer 0759 (Given - Provider: Jose Juan Spears, RT)1210 (Given - Provider: Jose Juan Spears RT)1600 (Hold/Not Given - Provider: Armaan Kilpatrick RT - Reason: Off of unit (test/procedure/OR))2110 (Given - Provider: Young Styles, RT) 0752 (Given - Provider: Rashida Rebollar RT - Comment: package thrown away)1200 (Hold/Not Given - Provider: Rashida Rebollar RT - Reason: Off of unit (test/procedure/OR ))1610 (Given - Provider: Young Styles, RT)2020 (Given - Provider: Jesus Aldridge, RT) 0926 (Given - Provider: Hussain Grigsby RCP)1222 (Given - Provider: Hussain Grigsby RCP)1730 (Hold/Not Given - Provider: Padmini Toledo, RT - Reason: Off of unit (test/procedure/OR ))194 (Given - Provider: Naa Oro, RT) amiodarone (CORDARONE) tablet 200 mg, Oral, DAILY, First dose on Sat05/01/24 at 0900, Until Discontinued 932 (Given - Provider: Tegan Duke RN) 926 (Given - Provider: Yulisa Bass RN) 08 (Given - Provider: Nita Camarena RN) Apixaban (ELIQUIS) tablet 5 mg, Oral, 2 TIMES DAILY, First dose on Sat05/05/24 at 1100, Until Discontinued 932 (Given - Provider: Tegan Duke RN)2120 (Given - Provider: El Fonseca RN) 926 (Given - Provider: Yulisa aBss RN)2204 (Given - Provider: El Fonseca RN) 821 (Given - Provider: Nita Camarena, FRANNIE)2199 (Due - Provider: Lynn Clarke RN) aspirin EC tablet 81 mg, Oral, DAILY, First dose on Sat05/11/24 at 1230, Until Discontinued 932 (Given - Provider: Tegan Duke RN) 926 (Given - Provider: Yulisa Bass RN) 08 (Given - Provider: Nita Camarena RN) atorvastatin (LIPITOR) tablet 40 mg, Oral, AT BEDTIME, First dose on Sat04/30/24 at 2230, Until Discontinued 2120 (Given - Provider: lE Fonseca RN) 2204 (Given - Provider: El Fonseca RN) 2199 (Due) cholecalciferol (VITAMIN D3) tablet 1,000 Units, Oral, DAILY, First dose on Sat05/06/24 at 1130, Until Discontinued 932 (Given - Provider: Tegan Duke RN) 09 (Given - Provider: Yulisa Bass RN) 08 (Given - Provider: Nita Camarena, FRANNIE) docusate sodium (COLACE) capsule 100 mg, Oral, 2 TIMES DAILY, First dose on Sat05/15/24 at 1130, Until Discontinued 1145 (Given - Provider: Nita Camarena RN)220 (Due - Provider: Lynn Clarke, FRANNIE) epoetin antione-epbx (RETACRIT) 31988 UNIT/ML injection (CANCELED) 10,000 Units, Subcutaneous, EVERY MWF, First dose on Sat05/04/24 at 0900, Until Discontinued, Dialysis 1200 (Hold/Not Given - Provider: Tegan Duke RN - Reason: Not indicated)1600 (Given - Provider: Ashlie Barcenas RN - Comment: HD) 0900 (Due) epoetin antione-epbx (RETACRIT) 81177 UNIT/ML injection 10,000 Units, Intravenous Push, EVERY MWF, First dose (after last modification) on Sat05/15/24 at 1500, Until Discontinued, Dialysis 1500 (Given - Provider: Apoorva Moore RN) erythromycin base (E-MYCIN) tablet 500 mg, Oral, 2 TIMES DAILY, First dose on Sat05/10/24 at 1000, Until Discontinued 932 (Given - Provider: Tegan Duke RN)2120 (Given - Provider: El Fonseca RN) 926 (Given - Provider: Yulisa Bass, FRANNIE)2204 (Given - Provider: El Fonseca RN) 821 (Given - Provider: Nita Camarena RN)2199 (Due - Provider: Lynn Clarke, FRANNIE) folic acid 1 MG tablet 1 mg, Oral, DAILY, First dose on Sat05/11/24 at 0900, Until Discontinued 932 (Given - Provider: Tegan Duke RN) 926 (Given - Provider: Yulisa Bass RN) 08 (Given - Provider: Nita Camarena RN) gabapentin (NEURONTIN) capsule 100 mg, Oral, AT BEDTIME, First dose on Ingrsi 04/30/24 at 2230, Until Discontinued 2120 (Given - Provider: El Fonseca RN) 2204 (Given - Provider: El Fonseca RN) 2199 (Due) guaifenesin (MUCINEX) 600 MG 12 hour tablet 600 mg, Oral, 2 TIMES DAILY, First dose on Ingris 05/14/24 at 1830, Until Discontinued 2204 (Given - Provider: El Fonseca RN) 08 (Given - Provider: Nita Camarena RN)2199 (Due - Provider: Lynn Clarke RN) insulin glargine (LANTUS SOLOSTAR/BASAGLAR KWIKPEN) 100 UNIT/ML PEN injection 8 Units, Subcutaneous, AT BEDTIME, First dose on 05/10/24 at 2200, Until Discontinued 2122 (Given - Provider: El Fonseca RN) 2204 (Given - Provider: El Fonseca RN) 2199 (Due) insulin regular (HumuLIN R) 100 UNIT/ML injection 4-14 Units, Subcutaneous, 4 TIMES DAILY BEFORE MEALS & AT BEDTIME, First dose (after last modification) on 05/04/24 at 1700, Until Discontinued 932 (Given - Provider: Tegan Duke RN)1145 (Hold/Not Given - Provider: Tegan Duke RN - Reason: Not indicated - Comment: dialysis, NPO at the moment)1748 (Hold/Not Given - Provider: Tegan Duke RN - Reason: Not indicated - Comment: BS 139)212 (Given - Provider: El Fonseca RN - Comment: BS 217) 0800 (Hold/Not Given - Provider: Yulisa Bass RN - Reason: Not indicated)1329 (Given - Provider: Yulisa Bass RN)1659 (Given - Provider: Yulisa Bass RN)220 (Given - Provider: El Fonseca RN - Comment: BS 209) 0822 (Hold/Not Given - Provider: Nita Camarena RN - Reason: Clinical contraindications) 1410 (Hold/Not Given - Provider: Nita Camarena RN - Reason: Off of unit (test/procedure/OR ))1805 (Given - Provider: Nita Camarena RN)2199 (Due) levothyroxine (SYNTHROID) tablet 50 mcg, Oral, BEFORE BREAKFAST, First dose on 05/09/24 at 1000, Until Discontinued 0532 (Given - Provider: Laverne Serrano RN) 0654 (Given - Provider: El Fonseca RN) 0635 (Given - Provider: El Fonseca RN) lidocaine (LIDODERM) 4 % patch 2 Patch, Transdermal, EVERY 24 HOURS, First dose on Ingris 04/30/24 at 2104, Until Discontinued 0532 (Patch Removal - Provider: Laverne Serrano RN)212 (Patch Applied - Provider: El Fonseca RN) 0921 (Patch Removal - Provider: Yulisa Bass, FRANNIE)220 (Patch Applied - Provider: El Fonseca RN) 08 (Patch Removal - Provider: Nita Camarena RN)220 (Due - Provider: Lynn Clarke RN) melatonin tablet 3 mg, Oral, AT BEDTIME, First dose (after last modification) on Sat05/12/24 at 2200, Until Discontinued 2120 (Given - Provider: El Fonseca RN) 220 (Given - Provider: El Fonseca RN) 220 (Due) methocarbamol (ROBAXIN) tablet 750 mg, Oral, EVERY 6 HOURS, First dose (after last modification) on 05/04/24 at 1500, Until Discontinued 0532 (Given - Provider: Laverne Serrano RN)1134 (MAR Hold - Provider: Tegan Duke RN - Reason: Clinical contraindications - Comment: dialysis)1230 (Hold/Not Given - Provider: Tegan Duke RN - Reason: Off unit (AWOL) - Comment: dialysis)1744 (MAR Unhold - Provider: Tegan Duke RN)1747 (Given - Provider: Tegan Duke RN) 0133 (Given - Provider: El Fonseca RN)0654 (Given - Provider: El Fonseca RN)1329 (Given - Provider: Yulisa Bass, FRANNIE)2205 (Given - Provider: El Fonseca RN) 0340 (Given - Provider: El Fonseca RN)0822 (Given - Provider: Nita Camarena RN)1805 (Given - Provider: Nita Camarena RN)2200 (Due - Provider: Esau Rand [facility]) metoclopramide (REGLAN) 5 MG/ML injection 5 mg, Intravenous Push, EVERY 8 HOURS, First dose on Sat05/10/24 at 1000, Until Discontinued 0532 (Given - Provider: Laverne Serrano RN)1747 (Given - Provider: Tegan Duke RN - Comment: pt at dialysis all 12-5p) 0133 (Given - Provider: El Fonseca RN)0927 (Given - Provider: Yulisa Bass RN)1700 (Given - Provider: Yulisa Bass, FRANNIE) 0117 (Given - Provider: El Fonseca RN)0822 (Given - Provider: Nita Camarena RN)1805 (Given - Provider: Nita Camarena RN - Comment: pt was off unit)2200 (Due - Provider: Marcelina Singh [facility]) midodrine tablet 10 mg, Oral, EVERY MWF, First dose (after last modification) on Sat05/11/24 at 0830, Until Discontinued 0646 (Given - Provider: Laverne Serrano RN - Comment: okay to give early per MD due to pts low BP (see correlating note)) 0822 (Given - Provider: Nita Camarena RN) Normal consistency supplement Oral, DAILY WITH BREAKFAST, First dose on Sat05/06/24 at 0900, Until Discontinued, Normal Consistency Supplement: Boost Breeze-Wild Escudero 0900 (Hold/Not Given - Provider: Tegan Duke RN - Reason: Patient refused) 0900 (Given - Provider: Yulisa Bass RN) 0900 (Given - Provider: Nita Camarena RN) Normal consistency supplement Oral, 2 TIMES DAILY WITH MEALS, First dose on Sat05/06/24 at 1200, Until Discontinued, Normal Consistency Supplement: Novasource Renal 1131 (Hold/Not Given - Provider: Tegan Duke RN - Reason: Clinical contraindications - Comment: dialysis)1749 (Given - Provider: Tegan Duke, FRANNIE) 1300 (Given - Provider: Yulisa Bass, FRANNIE)1700 (Given - Provider: Yulisa Bass RN) 1409 (Hold/Not Given - Provider: Nita Camarena RN - Reason: Off unit (AWOL))1700 (Given - Provider: Nita Camarena RN) nystatin (MYCOSTATIN) 100,000 unit/g powder Topical, 2 TIMES DAILY, First dose on Sat05/01/24 at 1500, Until Discontinued 0933 (Given - Provider: Tegan Duke RN)212 (Given - Provider: El Fonseca RN) 160 (Given - Provider: Yulisa Bass RN)2206 (Given - Provider: El Fonseca RN) 08 (Given - Provider: Nita Camarena RN)220 (Due - Provider: Lynn Clarke, FRANNIE) pantoprazole (PROTONIX) tablet 40 mg, Oral, DAILY 30 MIN BEFORE BREAKFAST, First dose on Sat05/01/24 at 0830, Until Discontinued 09 (Given - Provider: Tegan Duke RN) 09 (Given - Provider: Yulisa Bass RN) 08 (Given - Provider: Nita Camarena RN) polyethylene glycol (MIRALAX) 17 g packet (CANCELED) 17 g, Oral, DAILY, First dose on Sat05/11/24 at 1230, Until Discontinued 09 (Hold/Not Given - Provider: Tegan Duke RN - Reason: Patient refused) 926 (Given - Provider: Yulisa Bass RN) polyethylene glycol (MIRALAX) 17 g packet 17 g, Oral, 2 times daily, First dose (after last modification) on Sat05/14/24 at 2100, Until Discontinued 2204 (Given - Provider: El Fonseca RN) 08 (Given - Provider: Nita Camarena RN)220 (Due - Provider: Lynn Clarke, FRANNIE) Tory-Riri RX tablet 1 Tablet, Oral, DAILY, First dose on Sat05/05/24 at 1100, Until Discontinued 0932 (Given - Provider: Tegan Duke RN) 0928 (Given - Provider: Yulisa Bass RN) 08 (Given - Provider: Nita Camarena RN) senna (SENOKOT) tablet 8.6 mg, Oral, AT BEDTIME, First dose on Sat05/11/24 at 2200, Until Discontinued 2120 (Given - Provider: El Fonseca RN) 2204 (Given - Provider: El Fonseca RN) 2199 (Due) sertraline (ZOLOFT) tablet 125 mg 125 mg, Oral, DAILY, First dose (after last modification) on 05/09/24 at 0900, Until Discontinued 932 (Given - Provider: Tegan Duke RN) 09 (Given - Provider: Yulisa Bass RN) 0822 (Given - Provider: Nita Camarena RN) sevelamer carbonate (RENVELA) tablet 800 mg, Oral, 3 TIMES DAILY WITH MEALS, First dose on Sat05/01/24 at 0800, Until Discontinued 932 (Given - Provider: Tegan Duke RN)1134 (MAR Hold - Provider: Tegan Duke RN - Reason: Clinical contraindications - Comment: dialysis)1200 (Hold/Not Given - Provider: Tegan Duke RN - Reason: Not indicated - Comment: pt in dialysis)1700 (Hold/Not Given - Provider: Tegan Duke RN - Reason: Patient refused) 0943 (MAR Unhold - Provider: Yulisa Bass RN)0944 (Given - Provider: Yulisa Bass RN)0946 (Mistaken Entry - Provider: Yulisa Bass RN)1329 (Given - Provider: Yulisa Bass, FRANNIE)1700 (Given - Provider: Yulisa Bass RN) 0822 (Given - Provider: Nita Camarena RN)1410 (Hold/Not Given - Provider: Nita Camarena RN - Reason: Off of unit (test/procedure/OR ))1805 (Given - Provider: Nita Camarena RN) vitamin D2 ergocalciferol (DRISDOL) capsule CAPS 50,000 Units, Oral, EVERY 7 DAYS, 8 doses, First dose on Sat05/06/24 at 1130, Last dose on Sat06/24/24 at 1130 1134 (MAR Hold - Provider: Tegan Duke RN - Reason: Clinical contraindications - Comment: dialysis)1800 (Hold/Not Given - Provider: Tegan Duke RN - Reason: Off unit (AWOL)) 1343 (Given - Provider: Yulisa Bass RN) PRN Medication Order 05/13/2024 05/14/2024 05/15/2024 albuterol (PROVENTIL) (2.5 MG/3ML) 0.083% nebulizer solution 2.5 mg, Nebulization, EVERY 4 HOURS PRN, Starting on Sat04/30/24 at 2203, Until Discontinued, Shortness of Breath, or not indicated bisacodyl (DULCOLAX) 10 MG suppository 10 mg, Rectal, DAILY PRN, Starting on Sat05/15/24 at 1016, Until Discontinued, Constipation dextrose (GLUTOSE) 40 % oral gel(Linked Group 1) 15 g of glucose, Buccal, PRN, Starting on Sat04/30/24 at 2030, Until Discontinued, blood glucose between 50 - 69 mg/dL, and with no IV access, alert and able to swallow. dextrose (GLUTOSE) 40 % oral gel(Linked Group 1) 30 g of glucose, Buccal, PRN, Starting on Sat04/30/24 at 2030, Until Discontinued, blood glucose of 49mg/dL or less, and with no IV access, alert and able to swallow. dextrose 10 % iv infusion(Linked Group 1) 125 mL, Intravenous, at 999 mL/hr, PRN, Starting on Sat04/30/24 at 2030, Until Discontinued, For blood glucose less than 70 mg/dL, with IV access and with loss of consciousness or unable to swallow or NPO glucagon (GLUCAGEN) 1 MG injection(Linked Group 1) 1 mg, Subcutaneous, PRN, Starting on Sat04/30/24 at 2030, Until Discontinued, For blood glucose less than 70 mg/dL and with no IV access with loss of consciousness or alert and unable to swallow. midodrine (PROAMATINE) tablet (COMPLETED) 5 mg, Oral, ONCE PRN, 1 dose, Starting on Sat05/13/24 at 1153, Until Sat05/13/24 at 1207, prior to dialysis 05/13/2024 1207 (Given - Provider: Tegan Duke RN - Comment: dialysis) oxyCODONE immediate release tablet (CANCELED) 10 mg, Oral, EVERY 4 HOURS PRN, Starting on Sat05/11/24 at 1408, Until Sat05/15/24 at 0957, Severe Pain (pain score 7,8,9,10) 0532 (Given - Provider: Laverne Serrano RN) oxyCODONE immediate release tablet (CANCELED) 5 mg, Oral, EVERY 4 HOURS PRN, Starting on Sat05/11/24 at 1408, Until Sat05/15/24 at 0957, Moderate Pain (pain score 4,5,6) 0932 (Given - Provider: Tegan Duke, FRANNIE)1747 (Given - Provider: Tegan Duke, FRANNIE) 0654 (Given - Provider: El Fonseca RN)1625 (Given - Provider: Yulisa Bass RN)2205 (Given - Provider: El Fonseca RN) oxyCODONE immediate release tablet(Linked Group 2) 5 mg, Oral, EVERY 4 HOURS PRN, Starting on Sat05/15/24 at 0956, Until Discontinued, Severe Pain (pain score 7,8,9,10) 1145 (Given - Provider: Nita Camarena RN)1805 (Given - Provider: Nita Camarena RN) oxyCODONE immediate release tablet(Linked Group 2) 2.5 mg, Oral, EVERY 4 HOURS PRN, Starting on Sat05/15/24 at 0956, Until Discontinued, Moderate Pain (pain score 4,5,6) 1145 (See Alternativ e - Provider: Nita Camarena RN)1805 (See Alternative - Provider: Nita Camarena RN) trimethobenzamide (TIGAN) 100 MG/ML injection 100 mg, Intramuscular, EVERY 12 HOURS PRN, Starting on Sat05/12/24 at 1413, Until Discontinued, Nausea 1145 (Given - Provider: Nita Camarena RN) Linked Groups Order Group 1: dextrose 10 % iv infusionJump to med 125 mL, Intravenous, at 999 mL/hr, PRN, Starting on Sat04/30/24 at 2030, Until Discontinued, For blood glucose less than 70 mg/dL, with IV access and with loss of consciousness or unable to swallow or NPO Or glucagon (GLUCAGEN) 1 MG injectionJump to med 1 mg, Subcutaneous, PRN, Starting on Sat04/30/24 at 2030, Until Discontinued, For blood glucose less than 70 mg/dL and with no IV access with loss of consciousness or alert and unable to swallow. Or dextrose (GLUTOSE) 40 % oral gelJump to med 15 g of glucose, Buccal, PRN, Starting on Sat04/30/24 at 2030, Until Discontinued, blood glucose between 50 - 69 mg/dL, and with no IV access, alert and able to swallow. Or dextrose (GLUTOSE) 40 % oral gelJump to med 30 g of glucose, Buccal, PRN, Starting on Ingris 04/30/24 at 2030, Until Discontinued, blood glucose of 49mg/dL or less, and with no IV access, alert and able to swallow. Group 2: oxyCODONE immediate release tabletJump to med 5 mg, Oral, EVERY 4 HOURS PRN, Starting on Sat05/15/24 at 0956, Until Discontinued, Severe Pain (pain score 7,8,9,10) Or oxyCODONE immediate release tabletJump to med 2.5 mg, Oral, EVERY 4 HOURS PRN, Starting on Sat05/15/24 at 0956, Until Discontinued, Moderate Pain (pain score 4,5,6) FOR RECORDS PERTAINING TO PATIENTS WHO ARE [...] BE BASED ON THE PRIMARY CLINICAL RECORDS. [facility] [facility]. provides no warranty or guarantee of the accuracy or completeness of information in this document.
== END 2025-03-01 08:26 | disposition home or self-care (01) ==
LOC: LAB 08:25
PROVIDERS: PCP Family Medicine; Visit Provider Internal Medicine Nephrology
DX: D63.8 Anemia in other chronic diseases classified elsewhere (principal)
CPT/HCPCS: 36415; 85018